=== PATIENT | female | born 1945 | race Caucasian/White ===

== ENCOUNTER → 2018-08-23 10:20 | Outpatient (CLI) | payer MEDICARE, SELFPAY ==
--- NOTE | 2018-08-23 10:24 | BI_ITS ---
MAMMOGRAPHY - BILATERAL SCREENING REASON FOR EXAM: Female, 73 years old. Routine annual screening examination. PERTINENT HISTORY: Sister with breast cancer. Aunt with breast cancer. TECHNIQUE: Digital bilateral breast roman (3D mammographic acquisition) in the CC and MLO projections. 2-D mediolateral oblique (MLO) and craniocaudad (CC) views of both breasts were obtained. CAD: Full Field Digital Mammography with Computer Added Detection was performed. COMPARISON: Comparison is made with prior study dated February 22, 2017 and March 22, 2015. FINDINGS: Breast Composition: The breasts are heterogeneously dense, which may obscure small masses. There is a 7.6 mm x 8.4 mm nodular density in the upper outer quadrant of the left breast. This has increased in size. The margins at this time are slightly irregular and spiculated. There are 2 well-defined nodular densities in the central slightly lateral midportion of the right breast. One nodule measures 1.3 cm x 0.9 cm and the second nodule measures 1.1 cm x 1 cm. Correlation with ultrasound is recommended. No other significant abnormalities are identified. BI/SCREENING MAMM (CAD), BILAT IMPRESSION: Increased size of the nodular densities in both breasts as described. Correlation with ultrasound is recommended. ASSESSMENT CATEGORY: BIRADS Category 0: Incomplete. Need additional imaging evaluation. A letter regarding these results will be sent to the patient by the facility within 30 days. Approximately 10% of breast cancers are not detected by mammography. A normal mammogram should not delay biopsy of a clinically suspicious abnormality. [id number] Electronically Signed: Fernando Ford MD at 11:32 EDT Tel [phone], Service support ,
== END ==
PROVIDERS: Family Provider Internal Medicine; PCP Internal Medicine; Visit Provider Obstetrics & Gynecology
DX: Z12.31 Encounter for screening mammogram for malignant neoplasm of breast (principal)
CPT/HCPCS: 77063; 77067

== ENCOUNTER → 2018-08-30 12:25 | Outpatient (CLI) | payer MEDICARE, SELFPAY ==
--- NOTE | 2018-08-30 12:27 | US_ITS ---
STUDY: ULTRASOUND BREAST - RIGHT REASON FOR EXAM: Female, 73 years old. Abnormal screening mammogram. TECHNIQUE: Axial and longitudinal images of the RIGHT breast were performed with a high resolution ultrasound transducer. COMPARISON: Comparison is made with prior mammogram dated August 23, 2018. FINDINGS: RIGHT Breast: There is a 1 cm x 1.5 cm x 0.9 cm well-defined hypoechoic nodule at the 7:00 position of the breast at 2 cm from the nipple. A biopsy is recommended. There is also evidence of a 5 mm x 6 mm x 6 mm anechoic nodule at the 9:00 position the breast 1 cm from the nipple. This most likely demonstrates a small cyst. IMPRESSION: Suspicious 1 cm x 1.5 cm x 0.9 cm hypoechoic nodule at the 7:00 position breast at 2 cm from nipple. A biopsy recommended. ASSESSMENT CATEGORY: BIRADS Category 4: Suspicious - Biopsy Should Be Considered. A letter regarding these results will be sent to the patient by the facility within 30 days. Electronically Signed: Fernando Ford MD at 14:09 EDT Tel [phone], Service support , STUDY: ULTRASOUND BREAST - LEFT REASON FOR EXAM: Female, 73 years old. Abnormal screening mammogram. TECHNIQUE: Axial and longitudinal images of the LEFT breast were performed with a high resolution ultrasound transducer. COMPARISON: Comparison is made with prior mammogram dated August 23, 2018. FINDINGS: LEFT Breast: There is a 4 mm x 5 mm x 6 mm irregular shaped hypoechoic nodule with posterior acoustical shadowing at the 1:00 position of the breast at 4 cm from the nipple. A biopsy is recommended. US/Breast Limited Unilateral IMPRESSION: 4 mm x 5 mm x 6 mm irregular solid nodule with posterior acoustical shadowing at the 1:00 position of the breast at 4 cm from the nipple. A biopsy recommended. ASSESSMENT CATEGORY: BIRADS Category 4: Suspicious - Biopsy Should Be Considered. A letter regarding these results will be sent to the patient by the facility within 30 days. Electronically Signed: Fernando Ford MD at 14:10 EDT Tel [phone], Service support ,
--- NOTE | 2018-08-30 12:40 | US_ITS ---
STUDY: ULTRASOUND BREAST - RIGHT REASON FOR EXAM: Female, 73 years old. Abnormal screening mammogram. TECHNIQUE: Axial and longitudinal images of the RIGHT breast were performed with a high resolution ultrasound transducer. COMPARISON: Comparison is made with prior mammogram dated August 23, 2018. FINDINGS: RIGHT Breast: There is a 1 cm x 1.5 cm x 0.9 cm well-defined hypoechoic nodule at the 7:00 position of the breast at 2 cm from the nipple. A biopsy is recommended. There is also evidence of a 5 mm x 6 mm x 6 mm anechoic nodule at the 9:00 position the breast 1 cm from the nipple. This most likely demonstrates a small cyst. IMPRESSION: Suspicious 1 cm x 1.5 cm x 0.9 cm hypoechoic nodule at the 7:00 position breast at 2 cm from nipple. A biopsy recommended. ASSESSMENT CATEGORY: BIRADS Category 4: Suspicious - Biopsy Should Be Considered. A letter regarding these results will be sent to the patient by the facility within 30 days. Electronically Signed: Fernando Ford MD at 14:09 EDT Tel [phone], Service support , STUDY: ULTRASOUND BREAST - LEFT REASON FOR EXAM: Female, 73 years old. Abnormal screening mammogram. TECHNIQUE: Axial and longitudinal images of the LEFT breast were performed with a high resolution ultrasound transducer. COMPARISON: Comparison is made with prior mammogram dated August 23, 2018. FINDINGS: LEFT Breast: There is a 4 mm x 5 mm x 6 mm irregular shaped hypoechoic nodule with posterior acoustical shadowing at the 1:00 position of the breast at 4 cm from the nipple. A biopsy is recommended. US/Breast Limited Unilateral IMPRESSION: 4 mm x 5 mm x 6 mm irregular solid nodule with posterior acoustical shadowing at the 1:00 position of the breast at 4 cm from the nipple. A biopsy recommended. ASSESSMENT CATEGORY: BIRADS Category 4: Suspicious - Biopsy Should Be Considered. A letter regarding these results will be sent to the patient by the facility within 30 days. Electronically Signed: Fernando Ford MD at 14:10 EDT Tel [phone], Service support ,
== END ==
PROVIDERS: Family Provider Internal Medicine; PCP Internal Medicine; Visit Provider Internal Medicine
DX: R92.8 Other abnormal and inconclusive findings on diagnostic imaging of breast (principal)
CPT/HCPCS: 76642

== ENCOUNTER 2018-10-10 09:30 | Day surgery (SDC) | payer MEDICARE, SELFPAY ==
[2018-10-10] VITALS (7 sets, daily range): BP systolic 111–163; BP diastolic 57–97; PULSE 72–94; RESP 16–18; TEMP 36.4; O2SAT 92–98; BMI 34.5
--- NOTE | 2018-10-10 | IMM_PTH ---
PATIENT: KAREN VILLALOBOS [place] [facility] [place][id number] AGE/SX: 73/F ROOM: RE10/10/[address]: Dr. Zee Rivas MD : 1945 BED: DIS: 10/10/2018 SPEC #: [id number] RECD: 10/13/18 12:18 STATUS: TOYIN REQ #: [id number] SALEEM: 10/10/18 00:[address]: Zee Rivas DEPT: IMMUNOHISTOCHEMISTRY RECD BY: Camilla Salazar ENTERED: 10/13/18 12:21 SP TYPE: IMMUNO OTHR DR: Dr. Renata Mei DO Tissues: A - Axillary lymph node, NOS C - Right breast, NOS Procedures: Calponin-1(initial) CALPONIN-1 (add) CK5-6 (add) CK7 (add) CK8 (add) E-CAD (add) ER (add) HER2 [place] (add) KI-67 (add) P53 (add) [place] (add) AE1 (add) P40 (add) AE1-3 (initial) PHYSICIAN & [place] [phone] SPECIMEN INFORMATION: Tissue Source: A. Left axillary sentinel lymph node, C. Right breast mass Clinical Info: Newly diagnosed left breast cancer, atypical lesion Specimen Number: [id number] A1, A2, A3, C3, C9, C11 CPT code: 62621 x2, 33507 x19, 43956 x3 METHODOLOGY: Deparaffinized sections of prefer/formalin-fixed tissue or PAP/DQ stained slides are incubated with monoclonal/polyclonal antibodies/oligonucleotide probes. Localization is made via biotin free immunoperoxidase method. Appropriate controls are performed and reacted as expected. Results on target cell population are indicated in the following table: RESULTS: ANTIBODY / CLONE RESULT Block A1 AE1-3 (AE1/AE3/PCK26) negative CK7 (OV-TL12/30) negative Block A2 AE1-3 (AE1/AE3/PCK26) negative CK7 (OV-TL12/30) negative Block A3 AE1-3 (AE1/AE3/PCK26) negative CK7 (OV-TL12/30) negative Block C3 P40 (BC28) negative Calponin-1 (QD478D) negative E-Cad (ECH-6) positive CK8 (70rjzhY56) positive CK5-6 (D5 & 1684) negative Ki-67 (30-9) positive, low P53 (DO-7) negative MORPHOMETRIC ANALYSIS ER (clone 6F11) >95%, strong KY (clone 16/1E2) >95% strong Her-2Neu (clone CB11) 0 Block C9 P40 (BC28) negative Calponin-1 (JC748I) negative E-Cad (ECH-6) positive CK8 (74oyndJ53) positive Block C11 P40 (BC28) negative Calponin-1 (BN052K) negative E-Cad (ECH-6) positive CK8 (36mrbyC57) positive The prognostic test for HER2 is performed on formalin-fixed paraffin embedded tissue. A 3+ (positive) staining pattern is defined as intense, homogeneous, complete, circumferential membranous staining in >10% of contiguous tumor cells. A similar weak (2+) staining pattern is interpreted as equivocal. STEPHEN follow-up testing is recommended for all equivocal cases. Positivity/negativity for ER/KY is reported if > or < 1% of the tumor cells are immuno- reactive, respectively. The ASCO/CAP criteria is used for scoring. Reference: Journal of Clinical Oncology, 2013; 31:0164-7674 & 2010; 16:0133-7293. Duration of fixation: __ Hrs; Sample Adequate: Yes. These assays have not been validated on decalcified tissues. Results should be interpreted with caution given the likelihood of false negativity on decalcified specimens. These tests were developed and their performance characteristics determined by [facility]. They may not have been cleared or approved by the U.S. Food and Drug Administration. The FDA has determined that such clearance or approval is not necessary. INTERPRETATION: A. Left axillary sentinel lymph nodes, biopsy: Four out of four lymph nodes negative for metastatic carcinoma. C. 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 Positive for estrogen receptors (favorable prognostic indicator). Positive for progesterone receptors (favorable prognostic indicator). Negative for overexpression of LDE5nyw. SJ:mohit 10/21/18
--- NOTE | 2018-10-10 10:00 | NM_ITS ---
PROCEDURE: NUCLEAR MEDICINE Injection Thorp Node - LEFT breast(s). REASON FOR EXAM: Female, 73 years old. Left breast cancer. TECHNIQUE: Thorp node localization using radionuclide methods of the LEFT breast(s) was performed following subcutaneous administration of 1.1 mCi of of sulfur colloid Tc-99m. FINDINGS: 1.1 mCi of technetium sulfur colloid was injected subcutaneously in 4 equal aliquots in the upper outer quadrant of the left breast. NM/Lymph Node Injection Only IMPRESSION: Subcutaneous injection of 1.1 mCi of technetium sulfur colloid in the upper outer quadrant of the left breast. Electronically Signed: Fernando Ford MD at 10:36 EST Tel [phone], Service support ,
[2018-10-10 10:06] LABS: Bedside Glucose 132 mg/dL (70-110)
--- NOTE | 2018-10-10 10:40 | BI_ITS ---
SURGICAL BREAST SPECIMEN RADIOGRAPH CLINICAL: Document presence of mass in biopsy specimen. FINDINGS: Specimen shows presence of mass. Electronically Signed: Fernando Ford MD at 16:00 EST Tel [phone], Service support , BI/Breast Biopsy Specimen
[2018-10-10] MEDS: Isosulfan Blue 1% 5 ML Vial (11:00)
--- NOTE | 2018-10-10 11:52 | BI_ITS ---
SURGICAL BREAST SPECIMEN RADIOGRAPH CLINICAL: Document presence of mass in biopsy specimen. FINDINGS: Specimen shows presence of mass. Electronically Signed: Fernando Ford MD at 15:46 EST Tel [phone], Service support , BI/Breast Biopsy Specimen
--- NOTE | 2018-10-10 12:39 | PCM.DC.BS ---
Discharge Diet: No Restrictions Discharge Activity: Return to Normal Activity, May not drive while taking narcotic pain medications. Lifting Restrictions: no lifting greater than 10 pounds until further notice Call your doctor if your incision/area has: Continuous Slow Oozing, Foul Smelling Discharge Call your doctor if you observe: Fever of 101 or Higher Additional Dressing/Incision Instructions:: Leave dressings intact. May get wet in shower. Do not soak - no tub baths/swimming Additional Instructions: for pain control - can take round the clock acetominophen alternating with ibuprofen - take 600 mg ibuprofen then in 3 hours take 650 mg acetominphen then in 3 hours take 600 mg ibuprofen and so on Take oxyir for breakthrough pain and at night Allergies/Adverse Reactions: Allergies latex Allergy (Verified 10/10/18 10:08) Rash Penicillins [PCN] Allergy (Verified 10/10/18 10:08) Rash Medications to take at Discharge Cholecalciferol (Vitamin D3) [Vitamin D3] 1,000 unit PO DAILY 10/03/18 Levothyroxine Sodium [Synthroid] 25 mcg PO DAILY 10/03/18 Liraglutide [Victoza] 0.6 mg SQ DAILY 10/03/18 Metformin HCl [Metformin HCl ER] 500 mg PO BID 10/03/18 [place]-3 Fatty Acids [Fish Oil] 500 mg PO DAILY 10/03/18 Oxycodone [Oxyir] 5 mg PO Q8H PRN PRN 5 Days #15 tab 10/10/18 The following prescriptions were given: Oxycodone [Oxyir] 5 mg PO Q8H PRN PRN 5 Days #15 tab PRN Reason: Mod-Severe Pain (-09/07) Primary Care Physician: Renata Mei DO [Primary Care Provider] - Please Follow Up With: Zee Rivas MD - call When: to be seen on October 08 at 10:00, thank you
--- NOTE | 2018-10-10 12:42 | OP.PN_ITS ---
Immediate Post-Op Note Date of Procedure: 10/10/18 Primary Surgeon/Physician: Zee Rivas store custodian: Walt Jeter Pre-Operative Diagnosis: left breast cancer, neoplastic lesion of right breast of uncertain behavior Post-Operative Diagnosis: same Surgery/Procedure Performed:: left breast lumpectomy via wire localization. left breast axillary sentinel lymph node biopsy. right breast lumpectomy via wire localization Description of Surgical Findings:: 4 out of 4 lymph nodes negative for cancer, clear margins on left breast lumpectomy, right breast tissue with dense/hard lesions - dissection was done to ensure clear margins Estimated Blood Loss: 30 ml Specimen's removed: left breast sentinel lymph kyle tissue, left breast lumpectomy tissue, right breast lumpectomy tissue Type of Anesthesia:: General ASA Class: ASA2 Mod Systematic Disease - Admit VTE Documentation VTE Present on Admission: Yes VTE Mechan Device Prophylaxis: SCD's
--- NOTE | 2018-10-10 13:32 | AXNB_PTH ---
PATIENT: KAREN VILLALOBOS [place] [facility] [id number] AGE/SX: 73/F ROOM: RE10/10/[address]: Dr. Zee Rivas MD : 1945 BED: DIS: 10/10/2018 SPEC #: [id number] RECD: 10/10/18 13:37 STATUS: TOYIN RESonja #: [id number] SALEEM: 10/10/18 13:[address]: Zee Rivas DEPT: SURGICAL PATHOLOGY RECD BY: Camilla Salazar ENTERED: 10/10/18 14:18 SP TYPE: AX NODE BX OTHR DR: Dr. Renata Mei DO Tissues: A - Axillary lymph node, NOS B - Left breast, NOS C - Left breast, NOS Procedures: Frozen Section (charge) Frozen Section Add'l ([facility]) Surgery Specimen Level V Frozen (no charge) HEADER OPERATION: Right and left breast lumpectomy via wire localization PRE-OP DIAGNOSIS: Newly diagnosed left breast cancer, atypical lesion TISSUE SUBMITTED: A. Left axillary sentinel lymph node, B. Left breast mass, C. Right breast mass FROZEN SECTION DIAGNOSIS A. Left axillary lymph nodes, biopsy: Four out of four lymph nodes, negative for metastatic carcinoma. SJ:virgie 10/10/18 MICROSCOPIC DIAGNOSIS A. Left axillary sentinel lymph node, biopsy: 4 out of 4 lymph nodes, negative for metastatic carcinoma. See comment. B. Left breast mass, lumpectomy with needle localization: Well differentiated invasive ductal carcinoma. See cancer summary below. C. 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 See comment. CHASE:tova 10/21/18 INVASIVE BREAST CANCER SUMMARY (Specimen A & B): Specimen - partial breast Procedure - excision with wire-guided localization Lymph node sampling - sentinel lymph nodes Specimen integrity - single intact specimen Specimen size - 9 x 7 x 3 cm Specimen laterality - left Tumor site - not specified Tumor size - 0.9 x 0.9 cm (measured microscopically) Tumor focality - single focus of invasive carcinoma Macroscopic and Microscopic extent of tumor: Skin - invasive carcinoma did not invade into the dermis or epidermis Nipple - not applicable Skeletal muscle - no skeletal muscle is present Ductal carcinoma in situ (DCIS) - no ductal carcinoma in situ is present Lobular carcinoma in situ (LCIS) - not identified Histologic type of invasive ca - invasive ductal carcinoma (no special type) Histologic grade: [place] grade: histologic score Glandular/tubular differentiation - score 2 Nuclear pleomorphism - score 1 Mitotic count - score 1 Overall grade - 1 (score of 4) Margins: Margins uninvolved by invasive carcinoma: The tumor is 0.2 cm away from the closest inferior margin. Treatment effect: response to presurgical (neoadjuvant) therapy - no known presurgical therapy. Lymph-Vascular invasion - not identified. Dermal lymph-vascular invasion - not identified. Lymph nodes: Number of sentinel lymph nodes examined - 4 Total number of lymph nodes examined (sentinel and nonsentinel) - 4 Number of lymph nodes with macrometastases, micrometastases, and isolated tumor cells - 0 Method of evaluation of sentinel lymph nodes - H & E, multiple levels, and IHC. Additional pathologic findings - Fibrocystic changes. - Changes consistent with previous biopsy site. Ancillary studies: (previously performed at [facility] [place], [id number]) ER - positive (95%, strong) ME - positive (95%, moderate) Hht1rwb - negative (0) Microcalcifications - present in nonneoplastic tissue, medial calcification blood vessel wall Clinical history - Please make reference to previous specimen from [facility] [id number] left breast, needle core biopsy diagnosis of invasive ductal carcinoma, nuclear grade 1. PATHOLOGIC STAGE: pT1b, pN0 (sn), MX INVASIVE BREAST CANCER SUMMARY (SPECIMEN C): Specimen - partial breast Procedure - excision with wire-guided localization Lymph node sampling - No lymph node present. Specimen integrity - single intact specimen Specimen size - 9 x 6 x 2.5 cm Specimen laterality - right Tumor site - not specified Tumor size - two foci Larger focus - 1 x 0.7 cm Smaller focus - 0.7 x 0.7 cm (both measured microscopically) Tumor focality - two foci of invasive carcinoma Macroscopic and Microscopic extent of tumor: Skin - skin is not present. Nipple - not applicable Skeletal muscle - no skeletal muscle present Ductal carcinoma in situ (DCIS) - focal ductal carcinoma in situ is present. Extensive intraductal component (EIC) - negative Estimated size (extent) of DCIS - <5% Architectural patterns - solid, cribriform pattern Nuclear grade - grade 2 Necrosis - not identified Lobular carcinoma in situ (LCIS) - not identified Histologic type of invasive carcinoma - invasive ductal carcinoma with focal cribriform and papillary features. Histologic grade: [place] grade: Glandular/tubular differentiation - score 3 Nuclear pleomorphism - score 2 Mitotic count - score 1 Overall grade - 2 (score of 6) Margins: Margins uninvolved by invasive carcinoma and ductal carcinoma in situ. Both invasive carcinoma and ductal carcinoma in situ, is 0.1 cm away from the closest margin. Treatment effect: Response to presurgical (neoadjuvant) therapy - no known presurgical therapy. Lymph-Vascular invasion - not identified Dermal lymph-vascular invasion - not applicable Lymph nodes - No lymph nodes submitted or found. Distant metastasis - not applicable Additional pathologic findings - intraductal hyperplasia with focal atypia. Complex atypical papillary lesion. Ancillary studies: ([id number]) ER - positive (<95%, strong) ME - positive (<95%, strong) [place] - negative (0) Microcalcifications - present Clinical history - Please make reference to previous specimen ([id number]) right breast, needle localization biopsy from [facility] with diagnosis of fragments of atypical papillary lesion and atypical lobular hyperplasia. PATHOLOGIC STAGE: pT1c(n) pNX MX The above summary is in compliance with College of [employer] Path[employer] (CAP) Cancer Protocols Checklist and [place] Joint Committee on Cancer (AJCC), Staging Manual, 8th Ed. COMMENT A. The lymph nodes are negative for metastatic carcinoma on multiple H & E levels and immunohistochemical stains for cytokeratins ([id number]). The smallest lymph node is completed exhausted during frozen section diagnosis (block #2). C. Immunohistochemistry ([id number]) supports the above diagnosis. This portion of the specimen is sent to [facility] for expert opinion and reviewed by Dr. Rivas and above diagnosis is rendered. Complete report is viewable in the patient's EMR. Case has been reviewed in consultation with Dr. Hussein who concurs with the above diagnosis. IDC:AM MICROSCOPIC DESCRIPTION Slides are reviewed. GROSS DESCRIPTION A. Received fresh for frozen section diagnosis labeled with the patient's name is a specimen designated left axillary sentinel lymph node. The specimen consists of two pieces of yellow-adipose tissue that measure in aggregate 5 x 3 x 0.5 cm, containing nodule consistent with lymph node. Four lymph nodes are identified measuring 0.5 to 1.5 cm in greatest dimension. The lymph nodes are submitted entirely for frozen section diagnosis as follows: 1 - frozen section one lymph node, 2 - frozen section, two lymph nodes, one lymph node inked black, 3 - frozen section, one bisected lymph node. SJ:blane 10/10/18 B. Received fresh for frozen section for intraoperative consultation labeled with the patient's name is a specimen designated left breast mass. The specimen consists of a piece of fibroadipose tissue with needle localization measuring 9 x 7 x 3 cm. A piece of the skin is noted anteriorly which measures 2.5 x 0.3 cm. The specimen is oriented as one long suture posterior border, 2 long suture lateral, skin anteriorly, one short superior. The specimen is inked as follows: anterior margin - yellow, posterior margin - black, superior margin - blue, inferior margin - green, medial margin - red and lateral margin - orange. Serial section reveals a biopsy cavity measuring 1 cm in greatest dimension with surrounding indurated tissue. This cavity is 0.2 cm away from the closest inferior margin. This information is conveyed to the surgeon intraoperatively. Sections of the rest of the specimen reveals morales-yellow adipose cut surface mixed with fibrous area. Cook Helper sections are submitted in 10 cassettes as follows: 1 - skin adjacent anterior margin and perpendicular posterior margin, 2 - perpendicular medial, lateral and superior margins, 3-6 - biopsy cavity with surrounding indurated tissue, entirely submitted and including adjacent perpendicular inferior margin, 7 - public utilities sales representative section adjacent to the biopsy cavity, 810 - public utilities sales representative sections away from the cavity. Sections will be submitted after additional fixation. C. Received fresh and post fixed in formalin labeled with the patient's name is a specimen designated right breast mass. The specimen consists of a piece of morales-yellow fibroadipose with needle localization measuring 9 x 6 x 2.5 cm. No orientation is provided. Sections reveal morales-yellow adipose cut surfaces with two biopsy cavities of the surrounding adipose tissue. No obvious mass lesion is identified. Cook [place] sections are submitted in 12 cassettes as follows: 1-5 - biopsy cavity with surrounding tissue, 6-12 - second biopsy cavity with surrounding tissue. Sections will be submitted after additional fixation. CHASE:blane 10/11/18 TC: 0 CPT: 71461 x3, 65090, 32787i9, 13843l2
[2018-10-10] MEDS: Bupiv/Epi 0.5% Mpf 30 ML Vial (15:20)
[2018-10-10 17:16] LABS: Bedside Glucose 125 mg/dL (70-110)
--- NOTE | 2018-10-11 10:37 | PCM.OPRPT ---
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 right breast lumpectomy via wire localization Description of Surgical Findings:: 4 lymph nodes found that were negative for metastatic disease in the left axilla, margins clear on left breast lumpectomy, dense breast tissue noted on right lumpectomy - dissection was done to ensure clear margins velvet weaver: Walt Jeter velvet weaver: MARGUERITE JETT medical student Type of Anesthesia:: General Anesthesiologist: Elsi Stark Specimen's removed: left breast sentinel lymph kyle tissue, left breast lumpectomy tissue, right breast lumpectomy tissue Drains: none Estimated Blood Loss (mL): 30 ml Fluids Replaced: see anesthesia note Description of Procedure: After informed consent was given, the patient was brought into the Breast Stereotactic Radiology suite. Appropriate time out protocol was followed. She was then placed in the prone position on the Carpenter stereotactic table. The patient?s left breast was placed in the opening at the head of the table. A speech and language clinician compression mammogram was then obtained in the CC view. The marker clip that was previously placed was identified. Stereo pictures of the lesion were then taken for XYZ coordinates. The Kopans needle was then positioned where it would be entering into the patient?s breast. The skin at this site was then cleansed with a surgical skin preparation. The skin and subcutaneous tissues at this site were then infiltrated with 1% xylocaine. The Kopans needle was then positioned into the patient?s breast at the proper coordinates of depth. A speech and language clinician film was obtained which revealed the wire in proper position. The wire was then secured to the patient's skin. The right breast was then addressed next. The patient?s right breast was placed in the opening at the head of the table. A speech and language clinician compression mammogram was then obtained. The marker clip that was previously placed was identified. Stereo pictures of the lesion were then taken for XYZ coordinates. The Kopans needle was then positioned where it would be entering into the patient?s right breast. The skin at this site was then cleansed with a surgical skin preparation. The skin and subcutaneous tissues at this site were then infiltrated with 1% xylocaine. The Kopans needle was then positioned into the patient?s breast at the proper coordinates of depth. A speech and language clinician film was obtained which revealed the wire in proper position. The patient was then placed in the supine position and the wires were taped into place with appropriate dressings. Bilateral mammograms were then taken in the CC and MLO view which would then be used in the OR The patient tolerated this portion of the procedure well and was brought to the AC awaiting surgery in the OR. The patient was then brought to the OR and placed in the supine position on the operating room table. Appropriate time out protocol was follwed. She was then placed under general anesthesia. 2 cc of lymphozurin blue dye diluted 50:50 was then injected into the periareolar area of the left breast and around the biopsy cavity with a 25 g needle. Gentle massage was then done for a few minutes. The patient's upper chest, both breasts, and neck area was then prepped with a sterile surgical skin preparation and appropriate sterile surgical drapes were placed. The cancer side (left) was approached first. The Neoprobe device was brought into the operative field. The 10 second reading over the tumor site was 938. The 10 second reading over the liver was 4. A skin incision was made in the inferior portion of the hair bearing area of the left axilla after injection of local anesthetic. It was carried through to the subcutaneous tissues using electrocautery. Any hemorrhage was controlled with electrocautery. A Weitlaner retractor was used for increased operative exposure. The blue lymphatic vessels were then followed by blunt dissection until blue colored lymph kyle tissue was identified. This tissue was from the surrounding tissue by blunt dissection and the vascular pedicles ligated with hemoclips. The 10 second reading of the lymph kyle tissue was 405. The lymph nodes were then forwarded to pathology for frozen section. Pathology revealed that 4 out of 4 lymph nodes were negative for cancer. The 10 second reading in the axilla was 13. The axillary cavity was carefully examined. No further suspicious lesion were noted. No further blue lymph tissue was noted. Taryn was applied in the axilla. The deep fascia was approximated with 2-0 vicryl suture. The subdermal tissue was reapproximated with 3-0 vicryl suture. The skin was reapproximated with running 4-0 monocryl in a subcuticular fashion. Dermibond was then placed to reinforce the skin closure. The left breast lumpectomy was then done. A wire had already been placed in the stereotactic biopsy room in the radiology department as described above. The skin and subcutaneous tissues at the site of the breast lesion was then infiltrated with local anesthetic. A transverse skin incision was then made with a 15 blade scalpel in the upper outer aspect of the left breast and carried down through to the subcutaneous tissues. Hemostasis was controlled with electrocautery. The wire was then palpated out and brought into the wound from outside. The breast tissue surrounding the wire was then carefully palpated out and from the surrounding tissues using electrocautery. The breast tissue, once from the breast, was then forwarded to the radiology department, where a specimen mammogram revealed that the marker clip was within the specimen. The breast tissue was then forwarded to pathology for analysis. Pathology review revealed that the closest margin was posterior with a measurement of 5 mm. The wound cavity was carefully examined. No further suspicious tissue was palpated or visualized. Hemostasis was carefully controlled with electrocautery. The subdermal tissues were then approximated with vicryl suture. The incision was then reapproximated close using running monocryl suture. Dermibond was then placed to reinforce the skin closure. The right breast was then approached next. A wire had already been placed in the stereotactic biopsy room in the radiology department as described above. The skin and subcutaneous tissues at the incision site was then infiltrated with local anesthetic. A transverse skin incision was then made with a 15 blade scalpel in the lower outer aspect of the right breast and carried down through to the subcutaneous tissues. Hemostasis was controlled with electrocautery. The wire was then palpated out. The breast tissue surrounding the wire was then carefully noted and from the surrounding tissues using electrocautery. The breast tissue was palpated and there was dense hard lesions noted. Careful attention was then done to dissect out this tissue with good margins. The breast tissue, once from the breast, was then forwarded to the radiology department, where a specimen mammogram revealed that the marker clip was within the specimen. The wound cavity was carefully examined. No further suspicious tissue was palpated or visualized. Hemostasis was carefully controlled with electrocautery. The subdermal tissues were then approximated with vicryl suture. The incision was then reapproximated close using running monocryl suture. Dermibond was then placed to reinforce the skin closure. The patient was then brought to the Recovery Room in stable condition. Grafts/Implants Used: titanium clips in left axilla - Complications none noted - Admit VTE Documentation VTE Present on Admission: Yes VTE Mechan Device Prophylaxis: SCD's
--- NOTE | 2018-10-11 10:56 | OP.PCM_ITS ---
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 right breast lumpectomy via wire localization Description of Surgical Findings:: 4 lymph nodes found that were negative for metastatic disease in the left axilla, margins clear on left breast lumpectomy, dense breast tissue noted on right lumpectomy - dissection was done to ensure clear margins echocardiograph tech: Walt Jeter echocardiograph tech: MARGUERITE JETT medical student Type of Anesthesia:: General Anesthesiologist: Elsi Stark Specimen's removed: left breast sentinel lymph kyle tissue, left breast lumpectomy tissue, right breast lumpectomy tissue Drains: none Estimated Blood Loss (mL): 30 ml Fluids Replaced: see anesthesia note Description of Procedure: After informed consent was given, the patient was brought into the Breast Stereotactic Radiology suite. Appropriate time out protocol was followed. She was then placed in the prone position on the Carpenter stereotactic table. The patient?s left breast was placed in the opening at the head of the table. A chisel grinder compression mammogram was then obtained in the CC view. The marker clip that was previously placed was identified. Stereo pictures of the lesion were then taken for XYZ coordinates. The Kopans needle was then positioned where it would be entering into the patient?s breast. The skin at this site was then cleansed with a surgical skin preparation. The skin and subcutaneous tissues at this site were then infiltrated with 1% xylocaine. The Kopans needle was then positioned into the patient?s breast at the proper coordinates of depth. A chisel grinder film was obtained which revealed the wire in proper position. The wire was then secured to the patient's skin. The right breast was then addressed next. The patient?s right breast was placed in the opening at the head of the table. A chisel grinder compression mammogram was then obtained. The marker clip that was previously placed was identified. Stereo pictures of the lesion were then taken for XYZ coordinates. The Kopans needle was then positioned where it would be entering into the patient?s right breast. The skin at this site was then cleansed with a surgical skin preparation. The skin and subcutaneous tissues at this site were then infiltrated with 1% xylocaine. The Kopans needle was then positioned into the patient?s breast at the proper coordinates of depth. A chisel grinder film was obtained which revealed the wire in proper position. The patient was then placed in the supine position and the wires were taped into place with appropriate dressings. Bilateral mammograms were then taken in the CC and MLO view which would then be used in the OR The patient tolerated this portion of the procedure well and was brought to the AC awaiting surgery in the OR. The patient was then brought to the OR and placed in the supine position on the operating room table. Appropriate time out protocol was follwed. She was then placed under general anesthesia. 2 cc of lymphozurin blue dye diluted 50:50 was then injected into the periareolar area of the left breast and around the biopsy cavity with a 25 g needle. Gentle massage was then done for a few minutes. The patient's upper chest, both breasts, and neck area was then prepped with a sterile surgical skin preparation and appropriate sterile surgical drapes were placed. The cancer side (left) was approached first. The Neoprobe device was brought into the operative field. The 10 second reading over the tumor site was 938. The 10 second reading over the liver was 4. A skin incision was made in the inferior portion of the hair bearing area of the left axilla after injection of local anesthetic. It was carried through to the subcutaneous tissues using electrocautery. Any hemorrhage was controlled with electrocautery. A Weitlaner retractor was used for increased operative exposure. The blue lymphatic vessels were then followed by blunt dissection until blue colored lymph kyle tissue was identified. This tissue was from the surrounding tissue by blunt dissection and the vascular pedicles ligated with hemoclips. The 10 second r eading of the lymph kyle tissue was 405. The lymph nodes were then forwarded to pathology for frozen section. Pathology revealed that 4 out of 4 lymph nodes were negative for cancer. The 10 second reading in the axilla was 13. The axillary cavity was carefully examined. No further suspicious lesion were noted. No further blue lymph tissue was noted. Taryn was applied in the axilla. The deep fascia was approximated with 2-0 vicryl suture. The subdermal tissue was reapproximated with 3-0 vicryl suture. The skin was reapproximated with running 4-0 monocryl in a subcuticular fashion. Dermibond was then placed to reinforce the skin closure. The left breast lumpectomy was then done. A wire had already been placed in the stereotactic biopsy room in the radiology department as described above. The skin and subcutaneous tissues at the site of the breast lesion was then infiltrated with local anesthetic. A transverse skin incision was then made with a 15 blade scalpel in the upper outer aspect of the left breast and carried down through to the subcutaneous tissues. Hemostasis was controlled with electrocautery. The wire was then palpated out and brought into the wound from outside. The breast tissue surrounding the wire was then carefully palpated out and from the surrounding tissues using electrocautery. The breast tissue, once from the breast, was then forwarded to the radiology department, where a specimen mammogram revealed that the marker clip was within the specimen. The breast tissue was then forwarded to pathology for analysis. Pathology review revealed that the closest margin was posterior with a measurement of 5 mm. The wound cavity was carefully examined. No further suspicious tissue was palpated or visualized. Hemostasis was carefully controlled with electrocautery. The subdermal tissues were then approximated with vicryl suture. The incision was then reapproximated close using running monocryl suture. Dermibond was then placed to reinforce the skin closure. The right breast was then approached next. A wire had already been placed in the stereotactic biopsy room in the radiology department as described above. The skin and subcutaneous tissues at the incision site was then infiltrated with local anesthetic. A transverse skin incision was then made with a 15 blade scalpel in the lower outer aspect of the right breast and carried down through to the subcutaneous tissues. Hemostasis was controlled with electrocautery. The wire was then palpated out. The breast tissue surrounding the wire was then carefully noted and from the surrounding tissues using electrocautery. The breast tissue was palpated and there was dense hard lesions noted. Careful attention was then done to dissect out this tissue with good margins. The breast tissue, once from the breast, was then forwarded to the radiology department, where a specimen mammogram revealed that the marker clip was within the specimen. The wound cavity was carefully examined. No further suspicious tissue was palpated or visualized. Hemostasis was carefully controlled with electrocautery. The subdermal tissues were then approximated with vicryl suture. The incision was then reapproximated close using running monocryl suture. Dermibond was then placed to reinforce the skin closure. The patient was then brought to the Recovery Room in stable condition. Grafts/Implants Used: titanium clips in left axilla - Complications none noted - Admit VTE Documentation VTE Present on Admission: Yes VTE Mechan Device Prophylaxis: SCD's
== END 2018-10-10 18:43 | disposition home or self-care (01) ==
LOC: SDC 09:38 → AC 09:39
PROVIDERS: Family Provider Internal Medicine; PCP Internal Medicine; Referring Provider Surgery; Visit Provider Surgery
PROC: (CPT 19301; principal; 2018-10-10 11:45)
DX: C50.412 Malignant neoplasm of upper-outer quadrant of left female breast (principal); C77.3 Secondary and unspecified malignant neoplasm of axilla and upper limb lymph nodes; E11.9 Type 2 diabetes mellitus without complications; E78.00 Pure hypercholesterolemia, unspecified; E07.9 Disorder of thyroid, unspecified; K21.9 Gastro-esophageal reflux disease without esophagitis; K64.4 Residual hemorrhoidal skin tags; Z78.0 Asymptomatic menopausal state; Z79.84 Long term (current) use of oral hypoglycemic drugs; Z79.899 Other long term (current) drug therapy
CPT/HCPCS: 00404; 19301; 19302; 38900; 19281; 38792; 76098; 82962; 88305; 88307; 88331; 88332; 88341; 88342; A9541; J7050; J7120; J2405; J3490; Q9968

== ENCOUNTER 2018-12-05 09:25 | Day surgery (SDC) | payer MEDICARE, SELFPAY ==
[2018-10-10 10:00] VITALS: BMI 34.5
--- NOTE | 2018-12-05 | AXNB_PTH ---
PATIENT: KAREN VILLALOBOS [place] [facility] [id number] AGE/SX: 73/F ROOM: RE12/05/[address]: Dr. Zee Rivas MD : 1945 BED: DIS: 12/05/2018 SPEC #: [id number] RECD: 12/05/18 12:59 STATUS: TOYIN RESonja #: [id number] SALEEM: 12/05/18 00:[address]: Zee Rivas DEPT: SURGICAL PATHOLOGY RECD BY: Carmella Ashton ENTERED: 12/05/18 13:23 SP TYPE: AX NODE BX OTHR DR: Dr. Renata Mei DO Tissues: A - Axillary lymph node, NOS B - Axillary lymph node, NOS Procedures: Frozen Section (charge) Frozen Section Add'l ([facility]) Surgery Specimen Level IV Surgery Specimen Level V Frozen (no charge) HEADER OPERATION: Biopsy, axillary node, Neoprobe PRE-OP DIAGNOSIS: Right breast cancer TISSUE SUBMITTED: A - Right axillary lymph nodes sent for frozen at 1253, B - Lymph tissue sent fresh for pathology FROZEN SECTION DIAGNOSIS A. Right axillary lymph nodes, lymphadenectomy: Five fatty lymph nodes with no evidence of carcinoma. AM:mohit 12/05/18 MICROSCOPIC DIAGNOSIS A. Right axillary sentinel lymph nodes, biopsy: Five out of five lymph nodes negative for carcinoma. AM:mohit 12/07/18 B. Right axillary lymph node, biopsy: Two fragments of lymphoid tissue with fatty replacement. No evidence of malignancy. AM:mohit 12/08/18 COMMENT Immunohistochemistry ([id number]) supports the above diagnosis. The lymph nodes show fatty replacement. Clinical correlation is suggested. Please make reference to case [id number] in which right partial breast contained two foci of invasive carcinoma measuring 1 and 0.7 cm in greatest dimensions respectively. Case has been reviewed in consultation with Dr. Chirinos who concurs with the above diagnosis. IDC:[email or web address] MICROSCOPIC DESCRIPTION Slides are reviewed. GROSS DESCRIPTION A - Received fresh for frozen section consultation labeled with the patient's name is a specimen designated right axillary lymph nodes. The specimen consists of an irregular fragment of morales-yellow fibrofatty tissue measuring 4 x 3 x 2 cm. Dissection reveals five fatty nodules ranging in size from 1 to 3 cm. The nodules are submitted in their entirety for frozen section consultation in five blocks. / AM:mohit 12/05/18 B - Received fresh labeled with the patient's name is a specimen designated lymph tissue right. The specimen consists of two pieces of yellow adipose tissue that in aggregate measure 1 x 1 x 0.5 cm. One of the pieces is inked and bisected. The entire specimen is submitted in one cassette. / SJ:mohit 12/07/18 TC:5 CPT: 52620, 80701, 67517 x4, 78044
--- NOTE | 2018-12-05 | IMM_PTH ---
PATIENT: KAREN VILLALOBOS LOC: [facility] U#:[id number] AGE/SX: 73/F ROOM: RE12/05/[address]: Dr. Zee Rivas MD : 1945 BED: DIS: 12/05/2018 SPEC #: [id number] RECD: 12/07/18 10:03 STATUS: TOYIN RESonja #: [id number] SALEEM: 12/05/18 00:[address]: Zee Rivas DEPT: IMMUNOHISTOCHEMISTRY RECD BY: Carmella Ashton ENTERED: 12/07/18 10:05 SP TYPE: IMMUNO OTHR DR: Dr. Renata Mei DO Tissues: A - Axillary lymph node, NOS B - Axillary lymph node, NOS Procedures: Pankeratin (initial) Pankeratin (add) CK7 (initial) PHYSICIAN & INSTITUTION [place] [id number] SPECIMEN INFORMATION: Tissue Source: A - Right axillary lymph nodes, lymphadenectomy, B - Lymph node tissue Clinical Info: Right breast cancer Specimen Number: [id number] A1-5, B CPT code: 31745 x2, 91863 x5 METHODOLOGY: Deparaffinized sections of prefer/formalin-fixed tissue or PAP/DQ stained slides are incubated with monoclonal/polyclonal antibodies/oligonucleotide probes. Localization is made via biotin free immunoperoxidase method. Appropriate controls are performed and reacted as expected. Results on target cell population are indicated in the following table: RESULTS: ANTIBODY / CLONE RESULT Block A1 AE1-3 (AE1/AE3/PCK26) negative Block A2 AE1-3 (AE1/AE3/PCK26) negative Block A3 AE1-3 (AE1/AE3/PCK26) negative Block A4 AE1-3 (AE1/AE3/PCK26) negative Block A5 AE1-3 (AE1/AE3/PCK26) negative Block B CK7 (OV-TL12/30) negative AE1-3 (AE1/AE3/PCK26) negative These tests were developed and their performance characteristics determined by [facility]. They may not have been cleared or approved by the U.S. Food and Drug Administration. The FDA has determined that such clearance or approval is not necessary. INTERPRETATION: A. Right axillary lymph nodes, lymphadenectomy: Five out of five lymph nodes negative for carcinoma. AM:mohit 12/07/18 B. Lymph node tissue: Two fragments of fatty lymph nodes negative for carcinoma. AM:mohit 12/08/18
--- NOTE | 2018-12-05 | IMM_PTH ---
PATIENT: KAREN VILLALOBOS [place] [facility] [place][id number] AGE/SX: 73/F ROOM: RE12/05/[address]: Dr. Zee Rivas MD : 1945 BED: DIS: 12/05/2018 SPEC #: [id number] RECD: 12/07/18 10:03 STATUS: TOYIN REQ #: [id number] SALEEM: 12/05/18 00:[address]: Zee Rivas DEPT: IMMUNOHISTOCHEMISTRY RECD BY: Carmella Ashton ENTERED: 12/07/18 10:05 SP TYPE: IMMUNO OTHR DR: Dr. Renata Mei DO Tissues: Axillary lymph node, NOS Procedures: Pankeratin (initial) Pankeratin (add) PHYSICIAN & INSTITUTION [place] [id number] SPECIMEN INFORMATION: Tissue Source: Right axillary lymph nodes, lymphadenectomy Clinical Info: Right breast cancer Specimen Number: [id number] #1-5 CPT code: 92024, 33160 x4 METHODOLOGY: Deparaffinized sections of prefer/formalin-fixed tissue or PAP/DQ stained slides are incubated with monoclonal/polyclonal antibodies/oligonucleotide probes. Localization is made via biotin free immunoperoxidase method. Appropriate controls are performed and reacted as expected. Results on target cell population are indicated in the following table: RESULTS: ANTIBODY / CLONE RESULT Block 1 AE1-3 (AE1/AE3/PCK26) positive Block 2 AE1-3 (AE1/AE3/PCK26) positive Block 3 AE1-3 (AE1/AE3/PCK26) positive Block 4 AE1-3 (AE1/AE3/PCK26) positive Block 5 AE1-3 (AE1/AE3/PCK26) positive These tests were developed and their performance characteristics determined by [facility]. They may not have been cleared or approved by the U.S. Food and Drug Administration. The FDA has determined that such clearance or approval is not necessary. INTERPRETATION: Right axillary lymph nodes, lymphadenectomy: Five out of five lymph nodes negative for carcinoma. AM:mohit 12/07/18
--- NOTE | 2018-12-05 | AXNB_PTH ---
PATIENT: KAREN VILLALOBOS LOC: [facility] [place] U#:[id number] AGE/SX: 73/F ROOM: RE12/05/[address]: Dr. Zee Rivas MD : 1945 BED: DIS: 12/05/2018 SPEC #: [id number] RECD: 12/05/18 12:59 STATUS: TOYIN REQ #: [id number] SALEEM: 12/05/18 00:[address]: Zee Rivas DEPT: SURGICAL PATHOLOGY RECD BY: Carmella Ashton ENTERED: 12/05/18 13:23 SP TYPE: AX NODE BX OTHR DR: Dr. Renata Mei DO Tissues: A - Axillary lymph node, NOS B - Axillary lymph node, NOS Procedures: Frozen Section (charge) Frozen Section Add'l ([facility]) Surgery Specimen Level V Frozen (no charge) HEADER OPERATION: Biopsy, axillary node, Neoprobe PRE-OP DIAGNOSIS: Right breast cancer TISSUE SUBMITTED: Right axillary lymph nodes sent for frozen at 1253 FROZEN SECTION DIAGNOSIS Right axillary lymph nodes, lymphadenectomy: Five fatty lymph nodes with no evidence of carcinoma. AM:mohit 12/05/18 MICROSCOPIC DIAGNOSIS Right axillary sentinel lymph nodes, biopsy: Five out of five lymph nodes negative for carcinoma. AM:mohit 12/07/18 COMMENT Immunohistochemistry ([id number]) supports the above diagnosis. The lymph nodes show fatty replacement. Please make reference to case [id number] in which right partial breast contained two foci of invasive carcinoma measuring 1 and 0.7 cm in greatest dimensions respectively. Clinical correlation is suggested. Case has been reviewed in consultation with Dr. Chirinos who concurs with the above diagnosis. IDC:SJ MICROSCOPIC DESCRIPTION Slides are reviewed. GROSS DESCRIPTION Received fresh for frozen section consultation labeled with the patient's name is a specimen designated right axillary lymph nodes. The specimen consists of an irregular fragment of morales-yellow fibrofatty tissue measuring 4 x 3 x 2 cm. Dissection reveals five fatty nodules ranging in size from 1 to 3 cm. The nodules are submitted in their entirety for frozen section consultation in five blocks. / AM:mohit 12/05/18 TC:5 CPT: 12338, 42171, 94076 x4
--- NOTE | 2018-12-05 09:36 | NM_ITS ---
PROCEDURE: NUCLEAR MEDICINE Injection Blanchard Node - RIGHT breast(s). REASON FOR EXAM: Female, 73 years old. Right breast cancer. TECHNIQUE: Blanchard node localization using radionuclide methods of the RIGHT breast(s) was performed following subcutaneous administration of 1.1 mCi of of sulfur colloid Tc-99m. FINDINGS: 1.1 mCi of technetium labeled sulfur colloid was injected in 4 equal aliquots in the midportion of the right breast. NM/Lymph Node Injection Only IMPRESSION: Subcutaneous injection of 1.1 mCi of technetium labeled sulfur colloid for sentinel node imaging. Electronically Signed: Fernando Ford MD at 12:54 EST Tel [phone], Service support ,
[2018-12-05 09:56] VITALS: BP 127/53; PULSE 76; RESP 16; TEMP 36.9; O2SAT 96; BMI 34.5
[2018-12-05 10:11] LABS: Bedside Glucose 129 mg/dL (70-110)
--- NOTE | 2018-12-05 11:58 | PCM.IMDPSTOP ---
Immediate Post-Op Note Date of Procedure: 12/05/18 Primary Surgeon/Physician: Zee Rivas MD painter apprentice: NOT,DEFINED Pre-Operative Diagnosis: right breast cancer Post-Operative Diagnosis: same Surgery/Procedure Performed:: right axillary sentinel lymph node biopsy via blue and radioactive dye Description of Surgical Findings:: sentinel lymph node biopsy - 5 out of 5 lymph nodes negative for metastatic disease Estimated Blood Loss: < 5 ml Specimen's removed: right axillary sentinel lymph kyle tissue Type of Anesthesia:: General ASA Class: ASA3 Severe Disease - Admit VTE Documentation VTE Present on Admission: Yes VTE Mechan Device Prophylaxis: SCD's
--- NOTE | 2018-12-05 12:02 | OP.PN_ITS ---
Immediate Post-Op Note Date of Procedure: 12/05/18 Primary Surgeon/Physician: Zee Rivas MD heel lift gouger: NOT,DEFINED Pre-Operative Diagnosis: right breast cancer Post-Operative Diagnosis: same Surgery/Procedure Performed:: right axillary sentinel lymph node biopsy via blue and radioactive dye Description of Surgical Findings:: sentinel lymph node biopsy - 5 out of 5 lymph nodes negative for metastatic disease Estimated Blood Loss: < 5 ml Specimen's removed: right axillary sentinel lymph kyle tissue Type of Anesthesia:: General ASA Class: ASA3 Severe Disease - Admit VTE Documentation VTE Present on Admission: Yes VTE Mechan Device Prophylaxis: SCD's
--- NOTE | 2018-12-05 12:07 | DCINST_ITS ---
Discharge Diet: No Restrictions Discharge Activity: Return to Normal Activity, May not drive while taking narcotic pain medications. Lifting Restrictions: no lifting with right arm greater than 10 pounds until further notice Call your doctor if your incision/area has: Continuous Slow Oozing, Foul Smelling Discharge Call your doctor if you observe: Fever of 101 or Higher Additional Dressing/Incision Instructions:: Leave dressing in place. May get wet in shower. Do not soak - no tub baths/swimming Allergies/Adverse Reactions: Allergies latex Allergy (Verified 11/30/18 15:39) Rash Penicillins [PCN] Allergy (Verified 11/30/18 15:39) Rash Medications to take at Discharge Cholecalciferol (Vitamin D3) [Vitamin D3] 1,000 unit PO DAILY 10/03/18 Levothyroxine Sodium [Synthroid] 25 mcg PO DAILY 10/03/18 Liraglutide [Victoza] 0.6 mg SQ DAILY 10/03/18 Metformin HCl [Metformin HCl ER] 500 mg PO BID 10/03/18 [place]-3 Fatty Acids [Fish Oil] 500 mg PO DAILY 10/03/18 Hydrocodone Bitart/Apap 5-325 [[place] 5MG-325MG] 1 tab PO Q8H PRN PRN 3 Days #10 tab 12/05/18 The following prescriptions were given: Hydrocodone Bitart/Apap 5-325 [[place] 5MG-325MG] 1 tab PO Q8H PRN PRN 3 Days #10 tab PRN Reason: Pain Primary Care Physician: Renata Mei DO [Primary Care Provider] - Please Follow Up With: Zee Rivas MD - call When: to be seen in 7-10 days, please call for date and time, thank you
[2018-12-05] MEDS: Isosulfan Blue 1% 5 ML Vial (12:20)
[2018-12-05] MEDS: Bupivacaine 0.25% 30 ML Vial (12:40)
--- NOTE | 2018-12-05 13:27 | OP.PCM_ITS ---
Report of Operation Date of Procedure: 12/05/18 Pre-Operative Diagnosis: right breast cancer Post-Operative Diagnosis: same Surgery/Procedure Performed:: right axillary sentinel lymph node biopsy via blue and radioactive dye Description of Surgical Findings:: sentinel lymph node biopsy - 5 out of 5 lymph nodes negative for metastatic disease tow feeder: NOT,DEFINED Type of Anesthesia:: General Anesthesiologist: Mandy Tillman Specimen's removed: right axillary sentinel lymph kyle tissue Drains: none Estimated Blood Loss (mL): < 5 ml Fluids Replaced: 1000 ml RL Description of Procedure: After informed consent was given the patient was brought to the OR and placed in the supine position on the operating room table. Appropriate time out protocol was followed. She was then placed under general anesthesia. 2 cc of lymphozurin blue dye was then injected into the periareolar area and around the biopsy cavity with a 25 g needle. Gentle massage was then done for a few minutes. The patient's right chest and neck area was then prepped with a sterile surgical skin preparation and appropriate sterile surgical drapes were placed. A skin incision was made in the inferior portion of the hair bearing area of the right axilla. It was carried through to the subcutaneous tissues using electrocautery. Any hemorrhage was controlled with electrocautery. The Neoprobe device was then brought onto the surgical field via sterile technique. A 10 second count over tumor - thousands. 10 second count over the abdomen - 0. A Weitlaner retractor was used for increased operative exposure for the right axilla. The blue lymphatic vessels were then followed by blunt dissection until blue colored lymph kyle tissue was identified. These were from the surrounding tissue by blunt dissection and the vascular pedicles ligated with ligaclips. The lymph kyle tissue was then forwarded to pathology for frozen section. 10 second count over the lymph kyle tissue - 15. Pathology revealed that 5 lymph nodes were negative for metastatic disease. 10 second count in the axilla, after lymph kyle tissue was removed - 1. Hemostasis was carefully checked with electrocautery. Taryn was applied into the cavity. The deep fascia was reapproximated with 2-0 vicryl suture in an interrupted simple fashion. The skin edges were reapproximated with 3-0 vicryl suture in a horizontal mattress fashion and then further closed with running 4-0 monocryl in a subcuticular fashion. Cavilon and steristrips were then placed to reinforce the skin closure and proper sterile dressings were applied. Patient tolerated procedure well and was brought to Recovery Room in stable condition - Complications none noted - Admit VTE Documentation VTE Present on Admission: Yes VTE Mechan Device Prophylaxis: SCD's
[2018-12-05 13:29] VITALS: BP 127/53; BP 137/82; PULSE 96; RESP 16; TEMP 36.7; O2SAT 92
[2018-12-05 13:45] VITALS: BP 127/53; BP 130/57; PULSE 85; RESP 16; O2SAT 92
[2018-12-05 13:46] LABS: Bedside Glucose 117 mg/dL (70-110)
[2018-12-05 14:00] VITALS: BP 123/62; BP 127/53; PULSE 75; RESP 16; TEMP 36.4; O2SAT 93
[2018-12-05] MEDS: HYDROcodone Bitartrate/Apap 5/325 Tablet PO (14:21)
[2018-12-05 14:29] VITALS: BP 127/53
[2018-12-05 15:06] VITALS: BP 127/53; BP 135/91; PULSE 73; RESP 16; TEMP 36.5; O2SAT 95
== END 2018-12-05 15:09 | disposition home or self-care (01) ==
LOC: SDC 09:26 → AC 09:28
PROVIDERS: Family Provider Internal Medicine; PCP Internal Medicine; Referring Provider Surgery; Visit Provider Surgery
PROC: (CPT 19301; principal; 2018-12-05 11:45)
DX: C50.411 Malignant neoplasm of upper-outer quadrant of right female breast (principal); Z17.0 Estrogen receptor positive status [ER+]; C50.912 Malignant neoplasm of unspecified site of left female breast; E11.9 Type 2 diabetes mellitus without complications; E06.9 Thyroiditis, unspecified; K64.4 Residual hemorrhoidal skin tags; K21.9 Gastro-esophageal reflux disease without esophagitis; F43.21 Adjustment disorder with depressed mood; Z78.0 Asymptomatic menopausal state; Z79.84 Long term (current) use of oral hypoglycemic drugs; Z79.899 Other long term (current) drug therapy
CPT/HCPCS: 01610; 38525; 38900; 38792; 82962; 88305; 88307; 88331; 88332; 88341; 88342; A9541; J7050; J7120; J2405; Q9968

== ENCOUNTER → 2019-03-31 10:13 | Outpatient (CLI) | payer MEDICARE, SELFPAY ==
--- NOTE | 2019-03-07 16:01 | EKG12_ITS ---
Test Reason : PRE OP Blood Pressure : / mmHG Vent. Rate : 083 BPM Atrial Rate : 083 BPM P-R Int : 150 ms QRS Dur : 080 ms QT Int : 358 ms P-R-T Axes : 050 058 073 degrees QTc Int : 420 ms Normal sinus rhythm Nonspecific ST abnormality Abnormal ECG Confirmed by TENISHA CLEMONS, NAREN ([id number]), multimedia editor QUEENIE GUERRA ([id number]) on 03/08/2019 1:22:42 PM Referred By: Renetta Najera Confirmed By:NAREN STEVEN MD
[2019-03-07 17:26] LABS: Hematocrit 38.4 % (37-47); Hemoglobin 12.8 g/dl (12.0-15.0); Mean Corp Hgb Conc 33.3 g/gl (32-36); Mean Corpuscular Hgb 29.2 pg (27.0-32.0); Mean Corpuscular Volume 87.7 fL (81-99); Mean Platelet Vol. 11.3 fl (6.2-12.0); Platelet Count 111 K/mm3 (150-450); RBC Distribution Width CV 13.5 % (11.6-14.6); RBC Distribution Width SD 43.3 fl (35.1-43.9); Red Blood Count 4.38 M/mm3 (4.2-5.4); White Blood Count 5.5 K/mm3 (4.4-11.0)
[2019-03-07 17:31] LABS: Scan Indicated on CBC? Y/N NO
[2019-03-07 17:40] LABS: Prothrombin Time (Protime)PT. 13.4 SECONDS (11.7-14.9)
[2019-03-07 17:41] LABS: Partial Thromboplast Time 29.2 Seconds (24.1-36.2)
[2019-03-07 18:22] LABS: Thyroid Stim Hormone (TSH) 3.09 uIU/mL (0.358-3.74)
[2019-03-07 18:27] LABS: Hemoglobin A1c 8.1 % (4.2-6.3)
== END ==
PROVIDERS: Family Provider Internal Medicine; PCP Internal Medicine; Referring Provider Obstetrics & Gynecology; Visit Provider Obstetrics & Gynecology
DX: Z01.812 Encounter for preprocedural laboratory examination (principal); Z53.9 Procedure and treatment not carried out, unspecified reason; R94.31 Abnormal electrocardiogram [ECG] [EKG]
CPT/HCPCS: 36415; 83036; 84443; 85027; 85610; 85730; 86850; 86900; 93005

== ENCOUNTER 2019-04-18 10:47 | Day surgery (SDC) | payer MEDICARE, SELFPAY ==
--- NOTE | 2019-04-10 19:54 | PCM.HP.STD ---
Problem List (1) Endometrial thickening on ultrasound Status: Acute History of Present Illness Date of Admission: 04/18/19 Chief Complaint: thickened endometrium on ultrasound The patient is a 73 year old F with breast cancer diagnosis and Victoza use. Prior ultrasound of pelvis with fluid noted in endometrium. Repeat ultrasound with continued fluid in the endometrium and thicker endometrium. Presents for D and C removal and analysis of endometrium. Previously scheduled for D and C which was cancelled due to elevated HgA1C above 8 for her known diabetes diagnosis. Diabetes now stable. Past Medical History Allergies latex Allergy (Verified 03/07/19 14:57) Rash Penicillins [PCN] Allergy (Verified 03/07/19 14:57) Rash Home Medications: Ambulatory Orders Medication Instructions Recorded Cholecalciferol (Vitamin D3) 1,000 unit PO DAILY 10/03/18 [Vitamin D3] Levothyroxine Sodium [Synthroid] 25 mcg PO DAILY 10/03/18 Liraglutide [Victoza] 0.6 mg SQ DAILY 10/03/18 Metformin HCl [Metformin HCl ER] 500 mg PO BID 10/03/18 [place]-3 Fatty Acids [Fish Oil] 500 mg PO DAILY 10/03/18 Anastrozole [Arimidex] 1 mg PO DAILY 03/07/19 Smoking Status: Never smoker Review of Systems Constitutional: Denies: Chills, Fever, Weight Change HEENT: Denies: Difficulty Hearing, Difficulty Swallowing, Nasal bleeding, Nasal Congestion, Sore Throat Cardiovascular: Denies: Chest Pain, Palpitations Respiratory: Denies: Shortness of Breath, Wheezing Gastrointestinal: Denies: Constipation, Diarrhea, Nausea, Vomiting Genitourinary: Denies: Dysuria, Frequency, Hematuria, Incontinence, Urgency Musculoskeletal: Denies: Joint Pain, Muscle pain Skin: Denies: Lesions, Skin Changes Neurological: Denies: Focal weakness, Numbness Psychiatric: Denies: Anxiety, Depression Endocrine: Denies: Heat/ Cold Intolerance Hematologic/ Lymphatic: Denies: Easy Bleeding VTE Information - Inpt Only VTE Present on Admission: No VTE Mechan Device Prophylaxis: None VTE Pharm Prophylaxis ordered?: No Reason prophylaxis not ordered:: Procedure Not Indicated Subjective: Healthy appearing female of stated age. - Physical Exam General: No apparent distress, Well developed, Well nourished HEENT: PERRLA, EOMI, Normocephalic Oral: Moist Mucosa Neck: Supple Lungs: Clear to auscultation, Normal air movement Cardiovascular: Regular rate, Regular Rhythm Abdomen: Soft, Non Tender, Non-Distended Extremities: No edema Skin: No rashes Neurological: Cranial nerves II-XII grossly intact Body Mass Index (BMI) 34.5 Finger Stick Blood Glucose 117 Assessment/Plan All Active Problems Endometrial thickening on ultrasound (Acute) 1. Endometrial thickening on ultrasound with known breast cancer D and C, hysteroscopy The preop preparation, the intraop procedures and the postop recovery reviewed. The risks of bleeding, infection and other organ damage including bladder, bowel and uterine perforation reviewed, accepted and consented. 2. Diabetes better control per pcp
[2019-04-18] VITALS (8 sets, daily range): BP systolic 82–124; BP diastolic 43–55; PULSE 67–74; RESP 14–16; TEMP 35.6–36.6; O2SAT 92–97; BMI 33.3
[2019-04-18 11:56] LABS: Bedside Glucose 93 mg/dL (70-110)
--- NOTE | 2019-04-18 12:20 | EMB_PTH ---
PATIENT: KAREN VILLALOBOS LOC: [facility] [place] U#:[id number] AGE/SX: 73/F ROOM: RE04/18/[address]: Dr. Renetta Najera MD : 1945 BED: DIS: 04/18/2019 SPEC #: [id number] RECD: 04/18/19 15:05 STATUS: TOYIN RESonja #: [id number] SALEEM: 04/18/19 12:[address]: Renetta Najera DEPT: SURGICAL PATHOLOGY RECD BY: Giovanni Magana ENTERED: 04/19/19 09:25 SP TYPE: ENDOM BX/C ELVIS DR: Dr. Renata Mei DO Tissues: Endometrium, NOS Procedures: Surgery Specimen Level IV HEADER OPERATION: Hysteroscopy, dilation and curettage PRE-OP DIAGNOSIS: Endometrial thickening on ultrasound TISSUE SUBMITTED: Endometrial curettings MICROSCOPIC DIAGNOSIS Endometrium, curettings: Inactive endometrium with focal tubal metaplasia. Rare strips of benign superficial squamous mucosa. AM:mohit 04/20/19 COMMENT Case has been reviewed in consultation with Dr. Fortune who concurs with the above diagnosis. IDC:CE MICROSCOPIC DESCRIPTION Slides are reviewed. GROSS DESCRIPTION Received in fixative is one container labeled with the patient's name and designated endometrial curettings. The specimen consists of multiple minute fragments of morales mucoid tissue that in aggregate measure 0.6 x 0.5 x <0.1 cm. The specimen is totally submitted in one cassette. / AM:mohit 04/19/19 TC: CPT: 43385
--- NOTE | 2019-04-18 13:18 | OP.PCM_ITS ---
Problem List (1) Endometrial thickening on ultrasound Status: Acute Report of Operation Date of Procedure: 04/18/19 Pre-Operative Diagnosis: Thickened endometrium Post-Operative Diagnosis: Same plus cervical stenosis Surgery/Procedure Performed:: D&C, hysteroscopy Description of Surgical Findings:: He was noted to be approximately 8 cm in anteflexed position the cervical eyes no increased with mobile as well as an atrial cavity was noted to have much tissue the opening of the cervical Type of Anesthesia:: Local, MAC Anesthesiologist: Kelvin Lin Special Medications: Clindamycin and Gentamycin IV Specimen's removed: Endometrium Drains: None Estimated Blood Loss (mL): Minimal Fluids Replaced: Lactated Ringer Description of Procedure: Patient was brought to the operating room placed on the surgical bed. She underwent a MAC anesthetic after monitors have been placed. Patient entry. After adequate anesthesia patient was was placed in dorsolithotomy position via the Pablo stirrups she was prepped and draped in normal sterile fashion. A second timeout occurred the bladder was drained by myself with a straight catheter with 30 cc of clear urine being noted. The vagina anterior lip cervix was grasped and elevated cervical eyes was not able to complete the uterine sound small dilators were used to slowly and successfully dilate that cervical stenosis was encountered. The cervical cervix was also in with 10 cc of 1% lidocaine through at the 4 quadrants of the cervix. Once dilation of the cervical eyes with the hysteroscope 3 mm visit to the endometrial cavity inves tigation of the endometrial cavity occurred with a scant amount of tissue being noted because of the endometrial cavity and collection of the small tissue was noted the patient did not reveal this point time then all instruments were removed from the vagina sponge and instrument counts were correct x2 hemostasis was noted to be noted that a second timeout occurred prior to the onset of the case. Patient was awakened in stable condition to be taken to recovery room for discharge home later today. Grafts/Implants Used: None - Admit VTE Documentation VTE Mechan Device Prophylaxis: SCD's Reason prophylaxis not ordered:: Procedure Not Indicated
--- NOTE | 2019-04-18 13:18 | PCM.DC.D&C ---
Discharge Diet: No Restrictions - Increase water intake x 3 days Discharge Activity: Return to Normal Activity, May Shower, May Take a Tub Bath - in 2 weeks., - - For the week after surgery, please ambulate frequently with periods of rest in between May shower in (days): 0 - TODAY May resume sexual activity in: 1 week Weight Bearing Status: Full weight bearing Lifting Restrictions: none Call your doctor if your incision/area has: Sudden Increased Bleeding Call your doctor if you observe: Fever of 101 or Higher, Inability to urinate, Inability to have a bowel movement, Using more than one pad per hour Cleanse incision/area with: Soap & Water Allergies/Adverse Reactions: Allergies latex Allergy (Verified 04/18/19 11:26) Rash Penicillins [PCN] Allergy (Verified 04/18/19 11:26) Rash Medications to take at Discharge Cholecalciferol (Vitamin D3) [Vitamin D3] 1,000 unit PO DAILY 10/03/18 Levothyroxine Sodium [Synthroid] 25 mcg PO DAILY 10/03/18 Liraglutide [Victoza] 0.6 mg SQ DAILY 10/03/18 Metformin HCl [Metformin HCl ER] 500 mg PO BID 10/03/18 [place]-3 Fatty Acids [Fish Oil] 500 mg PO DAILY 10/03/18 Anastrozole [Arimidex] 1 mg PO DAILY 03/07/19 Primary Care Physician: Renata Mei DO [Primary Care Provider] - Test Results: Test results from this visit will be discussed in further detail at your follow-up appointment, if applicable. Please Follow Up With: Renetta Najera MD When: 1-2 weeks after surgery
== END 2019-04-18 14:23 | disposition home or self-care (01) ==
LOC: SDC 10:49 → AC 10:57
PROVIDERS: Family Provider Internal Medicine; PCP Internal Medicine; Referring Provider Obstetrics & Gynecology; Visit Provider Obstetrics & Gynecology
PROC: 0UDB8ZZ Extraction of Endometrium, Via Natural or Artificial Opening Endoscopic (ICD-10-PCS; CPT 58558; principal; 2019-04-18 12:10)
DX: N85.8 Other specified noninflammatory disorders of uterus (principal); C50.919 Malignant neoplasm of unspecified site of unspecified female breast; E11.9 Type 2 diabetes mellitus without complications; E07.9 Disorder of thyroid, unspecified; K21.9 Gastro-esophageal reflux disease without esophagitis; Z79.84 Long term (current) use of oral hypoglycemic drugs; Z79.899 Other long term (current) drug therapy; Z88.0 Allergy status to penicillin; Z78.0 Asymptomatic menopausal state
CPT/HCPCS: 00952; 58558; 82962; 88305; J7120; J2405

== ENCOUNTER 2019-05-04 23:53 | Emergency (ER) | payer MEDICARE, SELFPAY ==
[2019-04-18 11:28] VITALS: BMI 33.3
[2019-05-04 23:54] VITALS: BP 108/70; PULSE 69; RESP 16; TEMP 36.1; O2SAT 96; BMI 31.2
--- NOTE | 2019-05-05 00:22 | EKG12_ITS ---
Test Reason : ABD PAIN Blood Pressure : / mmHG Vent. Rate : 077 BPM Atrial Rate : 077 BPM P-R Int : 152 ms QRS Dur : 084 ms QT Int : 378 ms P-R-T Axes : 030 034 080 degrees QTc Int : 427 ms Normal sinus rhythm Minimal voltage criteria for LVH, may be normal variant Inferior infarct , age undetermined Abnormal ECG Confirmed by SHARATH CLEMONS, YORDY ([id number]), editor publications QUEENIE GUERRA ([id number]) on 05/09/2019 8:45:38 AM Referred By: EFRAIN Confirmed By:YORDY EARLY MD
--- NOTE | 2019-05-05 00:24 | ED.DCSUM_ITS ---
History of Present Illness Chief Complaint: Abd Pain Narrative: Patient is a 73-year-old female who presents with abdominal pain. This began about 7 PM, about 5 and half hours ago. She had eaten a turkey sandwich about an hour to an hour and a half before this. Food like that is never bothered her before. She describes her pain as severe burning epigastric pain. She denies any associated chest pain or shortness of breath. She had mild nausea but believes this may have been related to anxiety. She did take Mylanta and Zantac about an hour ago and her symptoms are now completely resolved. She did speak to her primary care physician prior to this who advised that if her symptoms worsen to seek medical care. Past Medical History - Allergies and Home Meds Allergies/Adverse Reactions: Allergies latex Allergy (Verified 05/04/19 23:57) Rash Penicillins [PCN] Allergy (Verified 05/04/19 23:57) Rash Primary Care Physician: Renata Mei DO [Primary Care Provider] - Past Medical History: - - Prediabetic Smoking Status: Never smoker Review of Systems All systems negative except as indicated General: Denies: Fever Cardiovascular: Denies: Chest pain Respiratory: Denies: Dyspnea Gastrointestinal: Reports: Abdominal pain, Nausea. Denies: Vomiting, Diarrhea Physical Exam Vital Signs/Narrative: Vital Signs Temp Pulse Resp BP Pulse Ox 05/04/19 23:54 97 F L 69 16 108/70 96 General: Well nourished Head: Normocephalic Eyes: EOMI ENT: Moist mucous membranes Neck: Supple Cardiovascular: Regular rate, Regular rhythm Respiratory: No distress, CTA bilaterally Abdomen: Soft, Nontender, Nondistended Skin: Normal color Neurological: Alert Psychological: Normal affect Diagnostic/Tx/Re-eval Laboratory Tests 05/05/19 05/05/19 Range/Units 00:30 00:30 WBC 5.8 (4.4-11.0) K/mm3 RBC 4.33 (4.2-5.4) M/mm3 Hgb 12.8 (12.0-15.0) g/dl Hct 38.1 (37-47) % MCV 88.0 (81-99) fL MCH 29.6 (27.0-32.0) pg MCHC 33.6 (32-36) g/gl RDW 13.4 (11.6-14.6) % RDW Differential 42.3 (35.1-43.9) fl Plt Count 91 L (150-450) K/mm3 MPV 10.8 (6.2-12.0) fl Immature Gran % (Auto) 0.200 (0.0-0.9) % Neut % (Auto) 60.4 (47-70) % Lymph % (Auto) 27.3 (19-41) % [place] % (Auto) 8.7 (0-10) % Eos % (Auto) 3.1 (0-5) % Baso % (Auto) 0.3 (0-1) % Absolute Neuts (auto) 3.5 (2.0-7.7) X10^3/uL Absolute Lymphs (auto) 1.58 (0.83-4.51) X10^3/ul Total Counted Not Reportable Sodium 138 (136-145) mmol/L Potassium 3.9 (3.5-5.1) mmol/L Chloride 103 (98-107) mmol/L Carbon Dioxide 27.0 (21.0-32.0) mmol/L Anion Gap 8 (5-15) BUN 22 H (7-18) mg/dL Creatinine 1.00 (0.55-1.02) mg/dL Estim Creat Clear Calc 35.99 ml/min Est GFR (MDRD) Af Amer 70 (>60) mL/min Est GFR (MDRD) Non-Af 58 L (>60) mL/min BUN/Creatinine Ratio 22.0 H (10-20) RATIO Glucose 132 H (74-106) mg/dL Calcium 9.5 (8.5-10.1) mg/dL Total Bilirubin 0.40 (0.20-1.00) mg/dL AST 41 H (15-37) U/L ALT 53 (13-56) U/L Alkaline Phosphatase 85 (45-117) U/L Troponin I < 0.015 (<0.045) ng/mL Total Protein 7.8 (6.4-8.2) g/dL Albumin 3.8 (3.2-5.0) g/dL Globulin 4.0 (2.2-4.2) g/dL Albumin/Globulin Ratio 1.0 (0.9-2.4) RATIO Lipase 260 (73-393) U/L - Medical Decision Making EKG shows normal sinus rhythm at a rate of 77 with no acute ischemic changes. Labs notable for thrombocytopenia with platelet count of 91. Thrombocytopenia noted on previous labs. Patient is asymptomatic. She was advised to follow-up as an outpatient. She was advised of possible need for further outpatient work- up such as right upper quadrant ultrasound especially if symptoms continue. She understands to return for new or worsening symptoms, all questions answered bedside, patient agreeable to plan. Patient discharged. ED Disposition - Plan for ED Patient: Diagnosis: Abdominal pain Instructions: ED Abdominal Pain Unkn Cause Referrals: Renata eMi DO [Primary Care Provider] -
[2019-05-05 00:43] LABS: Absolute Lymphocyte Count 1.58 X10^3/ul (0.83-4.51); Absolute Neutrophil Count 3.5 X10^3/uL (2.0-7.7); Basophil# 0.02 X10^3/uL; Basophil% 0.3 % (0-1); Eosinophil# 0.18 X10^3/uL; Eosinophils% 3.1 % (0-5); Hematocrit 38.1 % (37-47); Hemoglobin 12.8 g/dl (12.0-15.0); Lymphocyte # 1.58 X10^3/ul (4.0); Lymphocyte % 27.3 % (19-41); Mean Corp Hgb Conc 33.6 g/gl (32-36); Mean Corpuscular Hgb 29.6 pg (27.0-32.0); Mean Platelet Vol. 10.8 fl (6.2-12.0); Monocyte% 8.7 % (0-10); Neutrophil # 3.49 X10^3/uL (2.7-7.7); Neutrophil % 60.4 % (47-70); POSITIVE COUNT NO; POSITIVE DIFFERENTIAL NO; POSITIVE MORPHOLOGY NO; Platelet Count 91 K/mm3 (150-450); RBC Distribution Width CV 13.4 % (11.6-14.6); RBC Distribution Width SD 42.3 fl (35.1-43.9); Red Blood Count 4.33 M/mm3 (4.2-5.4); White Blood Count 5.8 K/mm3 (4.4-11.0)
[2019-05-05 01:02] LABS: AST(SGOT) 41 U/L (15-37); Alanine Aminotransfer ALT/SGPT 53 U/L (13-56); Albumin, Serum 3.8 g/dL (3.2-5.0); Alkaline Phosphatase 85 U/L (45-117); Anion Gap 8 (5-15); BUN 22 mg/dL (7-18); Calcium,Total 9.5 mg/dL (8.5-10.1); Chloride 103 mmol/L (98-107); EST Glomerular Filtration Rate 58 mL/min (>60); Est Glom Filt Rate - Afr Amer 70 mL/min (>60); Estimated Creatinine Clearance 35.99 ml/min; Glucose 132 mg/dL (74-106); Lipase 260 U/L (73-393); Potassium 3.9 mmol/L (3.5-5.1); Protein, Total 7.8 g/dL (6.4-8.2); Sodium Level 138 mmol/L (136-145)
[2019-05-05 01:21] VITALS: BP 113/57; PULSE 66; RESP 18; O2SAT 94
== END 2019-05-05 01:22 | disposition home or self-care (01) ==
PROVIDERS: Emergency Provider Emergency Medicine; Family Provider Internal Medicine; PCP Internal Medicine
DX: R10.9 Unspecified abdominal pain (principal); D69.6 Thrombocytopenia, unspecified; R73.03 Prediabetes; R11.0 Nausea; Z79.84 Long term (current) use of oral hypoglycemic drugs; Z79.899 Other long term (current) drug therapy; Z88.0 Allergy status to penicillin; Z91.040 Latex allergy status
CPT/HCPCS: 80053; 83690; 84484; 85025; 93005; 99283; A4216

== ENCOUNTER → 2019-08-30 12:51 | Outpatient (CLI) | payer MEDICARE, SELFPAY ==
--- NOTE | 2019-08-30 12:55 | BI_ITS ---
MAMMOGRAPHY - BILATERAL SCREENING REASON FOR EXAM: Female, 74 years old. Routine annual screening examination. PERTINENT HISTORY: Personal history of breast cancer. Bilateral lumpectomies with radiation treatment. Sister with breast cancer. Aunt with breast cancer. TECHNIQUE: Digital bilateral breast shelia (3D mammographic acquisition) in the CC and MLO projections. 2-D mediolateral oblique (MLO) and craniocaudad (CC) views of both breasts were obtained. CAD: Full Field Digital Mammography with Computer Added Detection was performed. COMPARISON: Comparison is made with prior examination of August 23, 2018 and February 22, 2017. FINDINGS: Breast Composition: There are scattered areas of fibroglandular density. There are no dominant masses or suspicious calcifications. Since prior study, there is been lumpectomy of the nodular density seen in the mid slightly lateral portion of the right breast. Surgical clips are once again seen in both axillary regions. There is also evidence of resection of a nodular density in the upper lateral aspect of the left breast. Postoperative scarring is seen bilaterally. No other significant abnormalities are identified. BI/SCREEN MAMM (CAD) W/SHELIA BILAT IMPRESSION: Status post bilateral lumpectomy with resection of the nodular densities. Yearly follow-up mammogram recommended. (A) ASSESSMENT CATEGORY: BIRADS Category 2: Benign. A letter regarding these results will be sent to the patient by the facility within 30 days. Approximately 10% of breast cancers are not detected by mammography. A normal mammogram should not delay biopsy of a clinically suspicious abnormality. [id number] Electronically Signed: Fernando Ford, at 14:52 EDT , Service support ,
== END ==
PROVIDERS: Family Provider Internal Medicine; PCP Internal Medicine; Referring Provider Nurse Practitioner; Visit Provider Nurse Practitioner
DX: Z12.31 Encounter for screening mammogram for malignant neoplasm of breast (principal)
CPT/HCPCS: 77063; 77067

== ENCOUNTER → 2020-08-16 17:08 | Outpatient (CLI) | payer MEDICARE, SELFPAY | PROVIDERS: PCP Internal Medicine; Referring Provider Internal Medicine; Visit Provider Internal Medicine | DX: Z20.828 Contact with and (suspected) exposure to other viral communicable diseases (principal) | CPT/HCPCS: 87635; C9803; U0003 ==

== ENCOUNTER → 2021-03-20 14:50 | Outpatient (CLI) | payer MEDICARE, SELFPAY ==
--- NOTE | 2021-03-20 15:12 | CT_ITS ---
STUDY: CT MAXILLOFACIAL SINUSES REASON FOR EXAM: Female, 75 years old. CHRONIC SINUSITIS RADIATION DOSAGE (If Supplied By Facility): CTDIvol = ( 28.14 ) mGy, DLP = ( 686.39 ) mGycm TECHNIQUE: The patient was scanned in a multi detector CT scanner. High resolution axial imaging was performed without the administration of intravenous contrast material. Sagittal and coronal images were reconstructed. Individualized dose optimization techniques were used for this CT. COMPARISON: None. FINDINGS: FRONTAL SINUSES: Normal aeration, without mucosal inflammatory disease. ETHMOIDAL SINUSES: Normal aeration, without mucosal inflammatory disease. MAXILLARY SINUSES: Normal aeration, without mucosal inflammatory disease. SPHENOIDAL SINUSES: Normal aeration, without mucosal inflammatory disease. There is patency of the bilateral maxillary infundibuli with normal uncinate processes, ethmoid bullae, and hiatus semilunaris. Normal bilateral middle turbinates. Normal bilateral inferior turbinates. Normal midline nasal septum. There is patency of the bilateral nasal airways. The visualized osseous structures are normal. The visualized bilateral orbital contents are normal. CT/Sinus/Facial Bone IMPRESSION: Normal CT examination of the maxillofacial sinuses. Electronically Signed: Epifanio Bond MD at 12:44 EDT , Service support ,
== END ==
PROVIDERS: PCP Nurse Practitioner; Referring Provider Internal Medicine; Visit Provider Internal Medicine
DX: J32.9 Chronic sinusitis, unspecified (principal)
CPT/HCPCS: 70486

== ENCOUNTER → 2021-04-11 11:50 | Outpatient (CLI) | payer MEDICARE, SELFPAY ==
--- NOTE | 2021-04-11 11:53 | BI_ITS ---
MAMMOGRAPHY - BILATERAL SCREENING REASON FOR EXAM: Female, 75 years old. Routine annual screening examination. PERTINENT HISTORY: Personal history of breast cancer. Bilateral lumpectomies and radiation treatment. Sister with breast cancer. Aunt with breast cancer. TECHNIQUE: Digital bilateral breast shelia (3D mammographic acquisition) in the CC and MLO projections. 2-D mediolateral oblique (MLO) and craniocaudad (CC) views of both breasts were obtained. CAD: Full Field Digital Mammography with Computer Added Detection was performed. COMPARISON: Comparison is made with prior study 08/30/2019 and 10/10/2018. FINDINGS: Breast Composition: There are scattered areas of fibroglandular density. There are no dominant masses or suspicious calcifications. Status post lumpectomy in the central slightly lateral aspect of the right breast with resultant postoperative scarring. Scattered microcalcifications. The patient also status post lumpectomy in the left breast with resultant architectural distortion. Surgical clips are seen in the axillary regions bilaterally. No other significant abnormalities are identified. There has been no significant change since the prior study. BI/SCRN MAMM (CAD)W/SHELIA BILAT IMPRESSION: Stable bilateral screening mammogram. Yearly follow-up mammogram recommended. (A) ASSESSMENT CATEGORY: BIRADS Category 2: Benign. A letter regarding these results will be sent to the patient by the facility within 30 days. Approximately 10% of breast cancers are not detected by mammography. A normal mammogram should not delay biopsy of a clinically suspicious abnormality. [id number] Electronically Signed: Fernando Ford MD at 12:41 EDT , Service support ,
== END ==
PROVIDERS: PCP Nurse Practitioner; Referring Provider Nurse Practitioner; Visit Provider Nurse Practitioner
DX: Z12.31 Encounter for screening mammogram for malignant neoplasm of breast (principal); Z85.3 Personal history of malignant neoplasm of breast; Z80.3 Family history of malignant neoplasm of breast
CPT/HCPCS: 77063; 77067

== ENCOUNTER → 2022-05-19 | Outpatient (CLI) | payer MEDICARE, SELFPAY ==
--- NOTE | 2022-05-19 12:15 | BI_ITS ---
MAMMOGRAPHY - BILATERAL SCREENING REASON FOR EXAM: Female, 76 years old. Routine annual screening examination. PERTINENT HISTORY: Personal history of breast cancer treated with bilateral lumpectomies and radiation. Sister with breast cancer. Aunt with breast cancer. TECHNIQUE: Digital bilateral breast shelia (3D mammographic acquisition) in the CC and MLO projections. 2-D mediolateral oblique (MLO) and craniocaudad (CC) views of both breasts were obtained. CAD: Full Field Digital Mammography with Computer Added Detection was performed. COMPARISON: Screening mammogram from 04/11/2021 08/30/2019, 08/13/2018, 02/22/2017. Bilateral diagnostic mammogram from 10/10/2018. Bilateral diagnostic breast ultrasound from 08/30/2018. FINDINGS: Breast Composition: There are scattered areas of fibroglandular density. There are no dominant masses or suspicious calcifications. Stable bilateral lumpectomy postoperative changes with similar appearance of areas of associated architectural distortion. Benign-appearing diffuse bilateral calcifications. Bilateral axillary surgical clips. No other significant abnormalities are identified. There has been no significant change since the prior study. BI/SCRN MAMM (CAD)W/SHELIA BILAT IMPRESSION: Stable bilateral screening mammogram. Yearly follow-up mammogram recommended. (A) ASSESSMENT CATEGORY: BIRADS Category 2: Benign. A letter regarding these results will be sent to the patient by the facility within 30 days. Approximately 10% of breast cancers are not detected by mammography. A normal mammogram should not delay biopsy of a clinically suspicious abnormality. [id number] Electronically Signed: Hamilton Rice, at 9:11 EDT ,
== END | disposition home or self-care (01) ==
LOC: OPBI 12:13
PROVIDERS: PCP Nurse Practitioner; Visit Provider Nurse Practitioner
DX: Z13.820 Encounter for screening for osteoporosis (principal); Z78.0 Asymptomatic menopausal state; Z12.31 Encounter for screening mammogram for malignant neoplasm of breast
CPT/HCPCS: 77063; 77067

== ENCOUNTER → 2023-07-05 | Outpatient (CLI) | payer MEDICARE, SELFPAY ==
--- NOTE | 2023-07-05 12:05 | BI_ITS ---
MAMMOGRAPHY - BILATERAL SCREENING REASON FOR EXAM: Female, 78 years old. Routine annual screening examination. PERTINENT HISTORY: Personal history of breast cancer. History of prior bilateral lumpectomies with radiation treatment. Sisters with breast cancer. Aunt with breast cancer. TECHNIQUE: Digital bilateral breast shelia (3D mammographic acquisition) in the CC and MLO projections. 2-D mediolateral oblique (MLO) and craniocaudad (CC) views of both breasts were obtained. CAD: Full Field Digital Mammography with Computer Added Detection was performed. COMPARISON: Comparison is made with prior examination dated May 19, 2022 and April 11, 2021. FINDINGS: Breast Composition: There are scattered areas of fibroglandular density. There are no dominant masses or suspicious calcifications. Once again, there is evidence of a post operative changes in both breasts secondary to prior lumpectomy. Scattered calcifications bilaterally. No focal clusters seen. Surgical clips are once again seen in both axillary regions. No other significant abnormalities are identified. There has been no significant change since the prior study. BI/SCRN MAMM (CAD)W/SHELIA BILAT IMPRESSION: Stable bilateral screening mammogram. Yearly follow-up mammogram recommended. (A) ASSESSMENT CATEGORY: BIRADS Category 2: Benign. A letter regarding these results will be sent to the patient by the facility within 30 days. Approximately 10% of breast cancers are not detected by mammography. A normal mammogram should not delay biopsy of a clinically suspicious abnormality. [id number] Electronically Signed: Fernando Ford MD at 13:14 EDT ,
== END | disposition home or self-care (01) ==
LOC: OPBI 12:04
PROVIDERS: PCP Nurse Practitioner Family; Referring Provider Nurse Practitioner Family; Visit Provider Nurse Practitioner Family
DX: Z12.31 Encounter for screening mammogram for malignant neoplasm of breast (principal); Z85.3 Personal history of malignant neoplasm of breast; Z80.3 Family history of malignant neoplasm of breast
CPT/HCPCS: 77063; 77067

== ENCOUNTER → 2024-08-01 | Outpatient (CLI) | payer MEDICARE, SELFPAY ==
--- NOTE | 2024-08-01 12:06 | BI_ITS ---
MAMMOGRAPHY - BILATERAL SCREENING REASON FOR EXAM: Female, 79 years old. Routine annual screening examination. PERTINENT HISTORY: Personal history of breast cancer. History of prior bilateral lumpectomies and radiation. Sisters with breast cancer. Aunt with breast cancer. TECHNIQUE: Digital bilateral breast shelia (3D mammographic acquisition) in the CC and MLO projections. 2-D mediolateral oblique (MLO) and craniocaudad (CC) views of both breasts were obtained. CAD: Full Field Digital Mammography with Computer Added Detection was performed. COMPARISON: Comparison is made with prior study dated July 05, 2023 and May 19, 2022. FINDINGS: Breast Composition: There are scattered areas of fibroglandular density. There are no dominant masses or suspicious calcifications. Stable postoperative changes in both breasts secondary to prior lumpectomy. Scattered calcifications bilaterally without a focal cluster. Surgical clips are seen in both axilla. No other significant abnormalities are identified. There has been no significant change since the prior study. BI/SCRN MAMM (CAD)W/SHELIA BILAT IMPRESSION: Stable bilateral screening mammogram. Yearly follow-up mammogram recommended. (A) ASSESSMENT CATEGORY: BIRADS Category 2: Benign. A letter regarding these results will be sent to the patient by the facility within 30 days. Approximately 10% of breast cancers are not detected by mammography. A normal mammogram should not delay biopsy of a clinically suspicious abnormality. [id number] Electronically Signed: Fernando Ford MD at 13:55 EDT ,
== END | disposition home or self-care (01) ==
LOC: OPBI 12:06
PROVIDERS: PCP Nurse Practitioner Family; Referring Provider Nurse Practitioner Family; Visit Provider Nurse Practitioner Family
DX: Z12.31 Encounter for screening mammogram for malignant neoplasm of breast (principal)
CPT/HCPCS: 77063; 77067

== ENCOUNTER 2024-09-25 11:14 | Emergency (ER) | payer MEDICARE, SELFPAY ==
[2024-09-25 11:16] VITALS: BP 146/62; PULSE 82; RESP 18; TEMP 36.3; O2SAT 94; BMI 32.1
--- NOTE | 2024-09-25 12:52 | CT_ITS ---
HISTORY: pain. TECHNIQUE: Helically acquired images were obtained of the cervical spine without contrast. 2D reformatted images were reviewed. A radiation dose optimization technique was used for this scan. 374 images. COMPARISON: None. FINDINGS: VERTEBRAE: Vertebral body heights maintained. Posterior elements intact. ALIGNMENT: 2 mm anterolisthesis of C4-5. Straightening of the cervical lordosis. INTERVERTEBRAL DISCS: Mild posterior disc bulge osteophyte complexes at multiple levels. No critical central canal stenosis. SOFT TISSUES: No prevertebral soft tissue swelling. CT/Spine Cervical without Contras IMPRESSION: No evidence for acute fracture or dislocation in the cervical spine. Mild degenerative change. Electronically Signed: Reva Bryant MD at 13:43 EDT ,
--- NOTE | 2024-09-25 12:52 | CT_ITS ---
HISTORY: headache. TECHNIQUE: Multiple axial images were obtained of the head without intravenous contrast. A radiation dose optimization technique was used for this scan. 243 images. COMPARISON: None. FINDINGS: BRAIN PARENCHYMA: Multiple foci and zones of low attenuation in the bilateral cerebral white matter compatible with chronic small vessel ischemic gliosis. Mild low-attenuation in the left sy radiata. No acute intra-axial hemorrhage identified. CSF SPACES: Generalized volume loss. No midline shift or other significant mass effect. No acute extra-axial hemorrhage seen. OTHER: Intact calvarium. Mild fluid in the left mastoid air cells. Bilateral lens resections. CT/Brain/Head without Contrast IMPRESSION: Small age-indeterminate infarct in the left frontoparietal white matter. Chronic involutional and white matter changes. Electronically Signed: Reva Bryant MD at 13:34 EDT ,
--- NOTE | 2024-09-25 12:56 | EX.ED.DYSGE1 ---
HPI History of Present Illness Chief Complaint: Chest Other Informant: patient and spouse/S.O. Narrative Narrative: 79-year-old female presenting to the emergency room with neck and shoulder pain. Patient states that this is an ongoing issue for months. She states that last night she could not sleep. She states the discomfort is worse when she lays down. She denies any weakness of the arms or paresthesias. Patient notes that the shoulder and neck discomfort seems to come towards the front of her chest. She notes that she has had a hump on her cervical spine for a very long time. Patient denies any known trauma. She is a diabetic. Patient notes that her symptoms are intermittent at times. She notes the occasional occipital ache but not headache. [facility] Medical History Diabetes Home Medications ?Medication ?Instructions ?Recorded ?Last Taken ?Type cholecalciferol (vitamin D3) 25 1,000 unit PO DAILY SUPPLEMENT 10/03/18 Unknown History mcg (1,000 unit) capsule (Vitamin D3) levothyroxine 25 mcg tablet 25 mcg PO DAILY THYROID 10/03/18 04/18/19 History (Synthroid) liraglutide 0.6 mg/0.1 mL (18 mg/3 0.6 mg SQ DAILY DIABETIC 10/03/18 Unknown History mL) subcutaneous pen injector (Victoza 2-Vladimir) metformin 500 mg 24 hr 500 mg PO BID DIABETES 10/03/18 Unknown History tablet,extended release (gastric retention) omega 3-dha 60 mg-epa 90 mg-fish 500 mg PO DAILY SUPPLEMENT 10/03/18 Unknown History oil 500 mg capsule, delayed release (Fish Oil) anastrozole 1 mg tablet 1 mg PO DAILY 03/07/19 Unknown History lidocaine 5 % topical patch 1 patch topical DAILY PRN pain #15 09/25/24 Unknown Rx (Lidoderm) ea meloxicam 7.5 mg tablet 7.5 mg PO DAILY #14 tabs 09/25/24 Unknown Rx semaglutide 14 mg tablet (Rybelsus) 14 mg PO 09/25/24 Unknown History Allergy/AdvReac Type Severity Reaction Status Date / Time latex Allergy Rash Verified 09/25/24 11:18 Penicillins (PCN) Allergy Rash Verified 09/25/24 11:18 Social History household members: spouse housing: house Smoking Status: Never smoker ROS ROS ED Constitutional Constitutional ED: Denies chills or weight loss Eyes Eyes: Denies change in vision or diplopia ENT ENT ED: Denies ear pain, rhinorrhea or sore throat Cardiovascular Cardiovascular: Denies chest pain, orthopnea, palpitations or racing heartbeat Respiratory/Chest Respiratory/Chest: Denies cough, dyspnea or orthopnea Gastrointestinal Gastrointestinal: Denies abdominal pain, diarrhea, nausea or vomiting Genitourinary Genitourinary ED: Denies dysuria, hematuria or urinary frequency Musculoskeletal Musculoskeletal: Reports neck pain and other Details: History of present illness ; Denies arthralgias or myalgias Integumentary Denies abscess or rash Neurologic Neurologic: Denies headache(s), paresthesias or weakness Psychiatric Psychiatric: Denies anxiety, depression, suicidal ideation or suicidal thoughts Endocrine Endocrinology: Denies polydipsia, polyphagia or polyuria Allergic/Immunologic Allergic/Immunologic ED: Denies mouth swelling, tongue swelling or urticaria EXAM Physical Exam Const Vital Signs: 09/25/24 11:16 09/25/24 12:18 09/25/24 13:15 Temperature 97.4 F L Temperature Source Oral Pulse Rate 82 87 Respiratory Rate 18 Respiratory Effort Normal Non-Labored Blood Pressure 146/62 H 122/86 H Blood Pressure Mean 90 98 Pulse Ox 94 Oxygen Delivery Method Room Air 09/25/24 14:44 09/25/24 14:46 Temperature 98 F 97.4 F L Temperature Source Pulse Rate 87 84 Respiratory Rate 16 16 Respiratory Effort Blood Pressure 122/86 H 130/70 H Blood Pressure Mean 98 90 Pulse Ox 99 98 Oxygen Delivery Method Positive well nourished and well developed General Appearance ED: well developed and NAD HEENT Reports normocephalic, head/scalp atraumatic and moist mucous membranes Eyes PERRL and EOMs intact bilaterally Neck no lymphadenopathy, supple and no JVD Neck Narrative: Tender to palpation over the trapezius and cervical musculature. Patient has some degree of kyphosis. Resp normal respiratory effort and clear to auscultation bilaterally Cardio regular rate, regular rhythm and no murmurs GI normal to inspection, nondistended, normoactive bowel sounds and non-tender Palpation: soft Back/Spine no CVA tenderness and normal ROM Extremity normal to inspection Extremity Narrative: I do not appreciate any muscle weakness or muscle wasting. Normal sensation. General Extremety ED: Negative for edema General Extremity: Negative for edema Neuro oriented x3, CN's II-XII intact bilaterally and no sensory deficits noted Sensorium / Orientation: alert Sensory Exam: No sensory level loss detected Motor Exam: strength 5/5 throughout Psych mental status grossly normal Mood & Affect: Negative for depressed or tearful Skin no rashes or lesions noted and no wounds MDM MDM MDM Narrative Medical decision making narrative: Differential diagnosis includes but not limited to muscle spasm cervical stenosis degenerative arthrosis acute coronary syndrome Patient's EKG shows a sinus rhythm with no concerning ST segments. CT of the brain showed no acute findings. CT of the cervical spine demonstrated arthrosis as well as a degree of anterior listhesis at C4-C5. There is straightening of the normal cervical lordosis. I do not see an emergent condition at this time. I believe the patient's symptoms which have been intermittently present for months are most likely related to arthritic changes. I will write for some Lidoderm patches short course of meloxicam. Patient was advised to follow-up with primary care return if worsening History & Record Review Discussion w/independent historian: Patient and Significant other Radiography Diagnostic Testing: Clinical Impression(s) from Imaging Studies Brain CT 09/25/24 12:52 IMPRESSION: Small age-indeterminate infarct in the left frontoparietal white matter. Chronic involutional and white matter changes. Electronically Signed: Reva Bryant MD at 13:34 EDT , Cervical Spine CT 09/25/24 12:52 IMPRESSION: No evidence for acute fracture or dislocation in the cervical spine. Mild degenerative change. Electronically Signed: Reva Bryant MD at 13:43 EDT , EKG Initial EKG: Attestation: I personally reviewed and interpreted this EKG as follows: Comments: Normal sinus rhythm ventricular rate of 86 bpm Discharge Plan Triage Chief Complaint: Chest Other ED Provider: Lyle Guerrero Dx/Rx/DC Orders Clinical Impression: Kyphosis, Paronychia, Degenerative arthritis of cervical spine Instructions: ED Neck Spasm, No Trauma Prescriptions: New lidocaine [Lidoderm] 5 % adhesive patch,medicated 1 patch topical DAILY PRN (Reason: pain) Qty: 15 0RF Rx Instructions: leave on most painful area for up to 12 hrs meloxicam 7.5 mg tablet 7.5 mg PO DAILY Qty: 14 0RF Rx Instructions: take with food No Action levothyroxine [Synthroid] 25 MCG tablet 25 mcg PO DAILY cholecalciferol (vitamin D3) [Vitamin D3] 1,000 UNIT capsule 1,000 unit PO DAILY metformin 500 MG tablet,ER halle.retention 24 hr 500 mg PO BID omega [id number]-ruu-fish oil [Fish Oil] 500 MG capsule,delayed release(DR/EC) 500 mg PO DAILY liraglutide [Victoza 2-Vladimir] 0.6 MG/0.1 ML pen injector 0.6 mg SQ DAILY anastrozole 1 MG tablet 1 mg PO DAILY Rybelsus 14 mg tablet 14 mg PO Primary Care Provider: Lani Alcazar Referrals: Lani Alcazar, [facility] [facility] [Primary Care Provider] - 1 Week Print Language: Sudanese Disposition Disposition: Home, Self Care Discharge Date/Time: 09/25/24 14:47
[2024-09-25 13:15] VITALS: BP 122/86; PULSE 87
[2024-09-25 14:44] VITALS: BP 122/86; PULSE 87; RESP 16; TEMP 36.6; O2SAT 99
[2024-09-25 14:46] VITALS: BP 130/70; PULSE 84; RESP 16; TEMP 36.3; O2SAT 98
== END 2024-09-25 14:47 | disposition home or self-care (01) ==
PROVIDERS: Emergency Provider Emergency Medicine; PCP Nurse Practitioner Family; Visit Provider Emergency Medicine
DX: M40.292 Other kyphosis, cervical region (principal); E11.9 Type 2 diabetes mellitus without complications; M50.321 Other cervical disc degeneration at C4-C5 level; L03.012 Cellulitis of left finger; D69.6 Thrombocytopenia, unspecified; Z79.84 Long term (current) use of oral hypoglycemic drugs; Z79.85 Long-term (current) use of injectable non-insulin antidiabetic drugs
CPT/HCPCS: 36415; 70450; 72125; 85025; 93005; 99282; J7030; A4216

== ENCOUNTER → 2024-09-25 | Outpatient (CLI) | payer MEDICARE, SELFPAY ==
[2024-09-25 10:27] LABS: Absolute Lymphocyte Count 1.85 X10^3/uL (0.83-4.51); Absolute Neutrophil Count 3.7 X10^3/uL (2.0-7.7); Basophil# 0.07 X10^3/uL; Basophil% 1.1 % (0-1); Eosinophil# 0.01 X10^3/uL; Eosinophils% 0.2 % (0-5); Hematocrit 41.2 % (37-47); Hemoglobin 13.6 g/dL (12.0-15.0); Lymphocyte # 1.85 X10^3/ul (0.83-4.51); Lymphocyte % 29.7 % (19-41); Mean Corpuscular Hgb 29.8 pg (27.0-32.0); Mean Corpuscular Volume 90.4 fL (81-99); Mean Platelet Vol. 11.3 fl (6.2-12.0); Monocyte# 0.54 X10^3/uL; Monocyte% 8.7 % (0-10); NRBC Flagged by Analyzer 0 % (0-5); Neutrophil # 3.74 X10^3/uL (2.7-7.7); POSITIVE COUNT YES; Platelet Count 90 K/mm3 (150-450); RBC Distribution Width CV 13.6 % (11.6-14.6); RBC Distribution Width SD 45.2 fl (35.1-43.9); Red Blood Count 4.56 M/mm3 (4.2-5.4); White Blood Count 6.2 K/mm3 (4.4-11.0)
[2024-09-25 10:37] LABS: Differential Indicated SCAN CRITERIA MET
[2024-09-25 11:45] LABS: Differential Comment SCANNED; Platelet Estimate MOD DEC (ADEQ); Red Cell Morphology NORM C+C NORMAL (NORM C&C)
== END | disposition home or self-care (01) ==
LOC: LAB 10:02
PROVIDERS: PCP Nurse Practitioner Family; Referring Provider Nurse Practitioner Family; Visit Provider Nurse Practitioner Family
DX: D69.6 Thrombocytopenia, unspecified (principal)
CPT/HCPCS: 36415; 85025

== ENCOUNTER → 2024-10-09 | Outpatient (CLI) | payer MEDICARE, SELFPAY ==
--- NOTE | 2024-10-09 12:39 | CDU_ITS ---
Reason For Study: Carotid artery stenosis Rt. Velocities/BP Lt. Velocities/BP Prox CCA 78.7/12.6 cm/sec. Prox CCA 90/20.1 cm/sec. Mid CCA 86.3/21.1 cm/sec. Mid CCA 89.1/19.2 cm/sec. Dist CCA 87.2/22 cm/sec. Dist CCA 71.1/16.3 cm/sec. Prox ICA 61.9/15.7 cm/sec. Prox ICA 91.6/16.8 cm/sec. Mid ICA 93.8/26.7 cm/sec. Mid ICA 112.4/32.2 cm/sec. Dist ICA 81.5/22.7 cm/sec. Dist ICA 136.8/44.6 cm/sec. Rt. ICA/CCA = 1.09. Lt. ICA/CCA = 1.54. Prox ECA 100.3/9.1 cm/sec. Prox ECA 135.7/11.5 cm/sec. Rt. Vert. 64.8/8.1 cm/sec. Lt. Vert. 50/15.2 cm/sec. Right Extracranial There is intimal thickening but no significant atherosclerotic plaque noted in the right common carotid artery. There is heterogeneous, irregular atherosclerotic plaque noted in the right internal carotid artery. There is intimal thickening but no significant atherosclerotic plaque noted in the right external carotid artery. Antegrade flow is noted in the right vertebral artery. Left Extracranial There is intimal thickening but no significant atherosclerotic plaque noted in the left common carotid artery. There is heterogeneous, irregular atherosclerotic plaque noted in the left internal carotid artery. The left internal carotid artery is very tortuous. There is heterogeneous, irregular atherosclerotic plaque noted in the left external carotid artery. Antegrade flow is noted in the left vertebral artery. Procedure This is a Carotid Duplex examination using B-mode, color flow and specral Doppler. Carotid Duplex [id number]. Exam performed in department. VL/Carotid Duplex Ultrasound Interpretation Summary Mild (<50%) stenosis right extracranial internal carotid. Moderate (50-69%) stenosis left extracranial internal carotid. Patent and antegrade vertebrals bilaterally. Ordering Physician: Lani Alcazar Referring Physician: Lani Alcazar Performed By: Kiersten Bright RVT
--- NOTE | 2024-10-09 12:39 | CDU_ITS ---
Reason For Study: Carotid artery stenosis Rt. Velocities/BP Lt. Velocities/BP Prox CCA 78.7/12.6 cm/sec. Prox CCA 90/20.1 cm/sec. Mid CCA 86.3/21.1 cm/sec. Mid CCA 89.1/19.2 cm/sec. Dist CCA 87.2/22 cm/sec. Dist CCA 71.1/16.3 cm/sec. Prox ICA 61.9/15.7 cm/sec. Prox ICA 91.6/16.8 cm/sec. Mid ICA 93.8/26.7 cm/sec. Mid ICA 112.4/32.2 cm/sec. Dist ICA 81.5/22.7 cm/sec. Dist ICA 136.8/44.6 cm/sec. Rt. ICA/CCA = 1.09. Lt. ICA/CCA = 1.54. Prox ECA 100.3/9.1 cm/sec. Prox ECA 135.7/11.5 cm/sec. Rt. Vert. 64.8/8.1 cm/sec. Lt. Vert. 50/15.2 cm/sec. Right Extracranial There is intimal thickening but no significant atherosclerotic plaque noted in the right common carotid artery. There is heterogeneous, irregular atherosclerotic plaque noted in the right internal carotid artery. There is intimal thickening but no significant atherosclerotic plaque noted in the right external carotid artery. Antegrade flow is noted in the right vertebral artery. Left Extracranial There is intimal thickening but no significant atherosclerotic plaque noted in the left common carotid artery. There is heterogeneous, irregular atherosclerotic plaque noted in the left internal carotid artery. The left internal carotid artery is very tortuous. There is heterogeneous, irregular atherosclerotic plaque noted in the left external carotid artery. Antegrade flow is noted in the left vertebral artery. Procedure This is a Carotid Duplex examination using B-mode, color flow and specral Doppler. Carotid Duplex [id number]. Exam performed in department. VL/Carotid Duplex Ultrasound Interpretation Summary Mild (<50%) stenosis right extracranial internal carotid. Moderate (50-69%) stenosis left extracranial internal carotid. Patent and antegrade vertebrals bilaterally. Ordering Physician: Lani Alcazar Referring Physician: Lani Alcazar Performed By: Kiersten Bright RVT
== END | disposition home or self-care (01) ==
LOC: CVS 12:39
PROVIDERS: PCP Nurse Practitioner Family; Referring Provider Nurse Practitioner Family; Visit Provider Nurse Practitioner Family
DX: I65.23 Occlusion and stenosis of bilateral carotid arteries (principal)
CPT/HCPCS: 93880

== ENCOUNTER → 2024-10-31 | Outpatient (CLI) | payer MEDICARE, SELFPAY ==
[2024-10-31 13:15] LABS: CREATININE FINGERSTICK < 1.0 mg/dL (0.55-1.02); EGFR FINGERSTICK > 60.0000 mL/min (>60)
--- NOTE | 2024-10-31 13:17 | MRI_ITS ---
EXAM: MR HEAD WITHOUT AND WITH INTRAVENOUS CONTRAST CLINICAL INDICATION: Frontoparietal Cerebral Atrophy TECHNIQUE: Multiplanar and multisequence MR images of the brain were obtained without and with intravenous contrast. CONTRAST: 15ML IV CLARISCAN COMPARISON: CT September 25, 2024, mentioned small age-indeterminate infarct in the left frontoparietal white matter and chronic changes. FINDINGS: BRAIN AND EXTRA-AXIAL SPACES: No restricted diffusion to suggest acute CVA or active demyelinating lesion. Mild cerebral volume loss. Mild-moderate deep periventricular high signal white matter change and multiple patchy high signal foci in the deep structures on T2-weighted inversion recovery images. No intra- or extra-axial hemorrhage. No evidence of acute infarct. No intracranial mass or mass effect. There is preservation of the bauer/white matter interface. Posterior fossa structures are unremarkable. No hydrocephalus. Basal cisterns are patent. SELLA: Unremarkable. Normal sella turcica, pituitary gland, infundibular stalk, optic chiasm and hypothalamus. AUDITORY SYSTEM: Unremarkable. The internal auditory canals are patent. BONES/JOINTS: Unremarkable. No discrete lytic or blastic abnormalities. SINUSES: Unremarkable as visualized. Clear. MASTOID AIR CELLS: Unremarkable as visualized. Clear. ORBITS: Unremarkable as visualized. Both globes, extraocular muscles, optic nerves and retrobulbar fat appear unremarkable. VASCULATURE: Small signal voids of the distal vertebral arteries and very small basilar artery signal void is seen, there appears to be origin of the instructor private with small but patent signal voids. Enhanced deep veins and major dural venous sinuses. No enhancing nodules. MRI/Brain W/WO Contrast IMPRESSION: No acute findings in the head/brain. Chronic changes. Electronically Signed: Michelle Sutton MD at 2:10 EST ,
== END | disposition home or self-care (01) ==
LOC: MRI 12:29
PROVIDERS: PCP Nurse Practitioner Family; Referring Provider Nurse Practitioner Family; Visit Provider Nurse Practitioner Family
DX: G31.9 Degenerative disease of nervous system, unspecified (principal)
CPT/HCPCS: 70553; A9575

== ENCOUNTER 2025-05-31 10:09 | Emergency (ER) | payer MEDICARE, SELFPAY ==
[2025-05-31 10:10] VITALS: BP 172/66; PULSE 105; RESP 18; TEMP 36.8; O2SAT 97; BMI 32.8
[2025-05-31 12:06] VITALS: BP 136/69; PULSE 87; RESP 22; O2SAT 96
[2025-05-31 12:51] VITALS: BP 149/61; PULSE 85; RESP 16; TEMP 36.8; O2SAT 97
== END 2025-05-31 13:01 | disposition home or self-care (01) ==
PROVIDERS: Emergency Provider Emergency Medicine; PCP Nurse Practitioner Family; Visit Provider Emergency Medicine
DX: S42.352A Displaced comminuted fracture of shaft of humerus, left arm, initial encounter for closed fracture (principal); E11.9 Type 2 diabetes mellitus without complications; S05.12XA Contusion of eyeball and orbital tissues, left eye, initial encounter; W01.198A Fall on same level from slipping, tripping and stumbling with subsequent striking against other object, initial encounter; Z79.84 Long term (current) use of oral hypoglycemic drugs
CPT/HCPCS: 70450; 70486; 72125; 73030; 90715; 96374; 96375; 99284; J2405

== ENCOUNTER 2025-06-06 02:23 | Inpatient (IN) | payer MEDICARE, SELFPAY ==
[2025-06-06] VITALS (12 sets, daily range): BP systolic 95–145; BP diastolic 47–75; PULSE 79–117; RESP 14–22; TEMP 36.1–37.1; O2SAT 22–97; BMI 32.1
--- NOTE | 2025-06-06 02:32 | EDS_ITS ---
HPI History of Present Illness Chief Complaint: Syncope [facility] Medical History History of breast cancer (~2018) Diabetes Home Medications ?Medication ?Instructions ?Recorded ?Last Taken ?Type cholecalciferol (vitamin D3) 25 1,000 unit PO DAILY DURANT PPLEMENT 10/03/18 Unknown History mcg (1,000 unit) capsule (Vitamin D3) levothyroxine 25 mcg tablet 25 mcg PO DAILY THYROID 04/18/19 History
--- NOTE | 2025-06-06 02:32 | EDS_ITS ---
HPI History of Present Illness Chief Complaint: Syncope [facility] Medical History History of breast cancer (~2018) Diabetes Home Medications ?Medication ?Instructions ?Recorded ?Last Taken ?Type cholecalciferol (vitamin D3) 25 1,000 unit PO DAILY DURANT PPLEMENT 10/03/18 Unknown History mcg (1,000 unit) capsule (Vitamin D3) levothyroxine 25 mcg tablet 25 mcg PO DAILY THYROID 04/18/19 History
--- NOTE | 2025-06-06 02:32 | EX.ED.DYSGE1 ---
HPI History of Present Illness Chief Complaint: Syncope [facility] Medical History History of breast cancer (~2018) Diabetes Home Medications ?Medication ?Instructions ?Recorded ?Last Taken ?Type cholecalciferol (vitamin D3) 25 1,000 unit PO DAILY SUPPLEMENT 10/03/18 Unknown History mcg (1,000 unit) capsule (Vitamin D3) levothyroxine 25 mcg tablet 25 mcg PO DAILY THYROID 10/03/18 04/18/19 History (Synthroid) omega 3-dha 60 mg-epa 90 mg-fish 500 mg PO DAILY SUPPLEMENT 10/03/18 Unknown History oil 500 mg capsule, delayed release (Fish Oil) semaglutide 14 mg tablet (Rybelsus) 14 mg PO DAILY 09/25/24 Unknown History ezetimibe 10 mg tablet (Zetia) 10 mg PO QDAY 01/04/25 Unknown History glimepiride 4 mg tablet 4 mg PO QAM 01/04/25 Unknown History hydrocodone-acetaminophen 5-325mg 1 tab PO Q6H PRN PRN Pain 3 days 05/31/25 06/05/25 17:00 Rx 5mg-325mg #10 TABLETS Allergy/AdvReac Type Severity Reaction Status Date / Time latex Allergy Rash Verified 06/06/25 02:24 Penicillins (PCN) Allergy Rash Verified 06/06/25 02:24 Family History (Updated 01/04/25 @ 09:47 by Radha Jolly) Other Asthma Breast cancer CAD (coronary artery disease) Diabetes Heart disease Hypertension Myocardial infarction Thyroid disorder Surgical History Hx of lumpectomy Social History household members: spouse housing: house Smoking Status: Never smoker EXAM Physical Exam Const Vital Signs: 06/06/25 02:24 06/06/25 02:30 Temperature 97 F L Temperature Source Temporal Pulse Rate 106 H Respiratory Rate 14 Respiratory Effort Normal Respiratory Pattern Normal Blood Pressure 114/47 L Blood Pressure Mean 69 Pulse Ox 96 Oxygen Delivery Method Room Air MDM MDM MDM Narrative Medical decision making narrative: HISTORY OF PRESENT ILLNESS: Chief complaint: Dizziness, passing out 79-year-old female presents after reported episode of syncope. She know she was walking to the bathroom tonight and her assisted her to the ground. She also complains of nausea. Notes she was in the bathroom when she was trying to use the toilet she became lightheaded/dizzy/warm. No significant nausea. Notes that she did not ambulated back to her room she lost consciousness. Her saw this and noted complete loss of postural tone. He was able to support her fall. There is no obvious trauma from the event. The patient denies prodromal headache, chest pain, abdominal pain, shortness of breath. No recent dark stools or blood in the urine. The patient denies recent surgery in the last 4 weeks or immobilization in the last 3 days, denies previous diagnosis of DVT or PE, hemoptysis, unilateral leg swelling or malignancy with treatment the last 6 months or palliative. No estrogen use noted. REVIEW OF SYSTEMS: Pertinent positives: Dizziness, syncope, nausea Pertinent negatives: As per HPI PHYSICAL EXAM: Nursing triage notes reviewed, Vital signs reviewed Constitutional: please see [facility] HENT: MMM Eyes: Pupils equal round and reactive to light, Extraocular muscles intact Neck: No stridor, no JVD, full neck ROM Lungs: Clear to auscultation, No wheezing or rales. No increased work of breathing, no conversational dyspnea, no accessory muscle use, no nasal flaring. No respiratory distress noted Heart: Regular rate and rhythm, No murmurs, No rubs and No gallops, 2+ distal pulses (radial, femoral, posterior tibial) in all extremities Abdomen: Soft, there is no tenderness, rigidity, rebound or guarding, no obvious peritoneal signs, no palpable pulsatile abdominal masses, no auscultated abdominal bruit : No CVAT Extremities: No edema Neuro: No new focal neurological deficits, cranial nerves II through XII intact, 5/5 strength in all present extremities. Intact sensation to light touch in all present extremities, 2+ reflexes bilateral patella tendons. Skin: No rash or lesions noted MEDICAL DECISION MAKING: Chief Complaint: please see HPI External records reviewed: Reviewed ED visit from 05/31/2025 where the patient was evaluated for a fall. Notes was mechanical fall from standing and fell down embankment. Per documentation there was cervical spine tenderness, large hematoma over the inferior orbit. CT scan of the brain, cervical spine and face were done. CT scan of the brain showed no bleed. There was noted to be no facial fracture. X-ray of the shoulder showed a comminuted fracture left humeral neck. Tetanus was updated. Patient was treated morphine and Zofran. She was given a sling and swath. She was given referral to orthopedics Factors affecting care: Recent trauma, type 2 diabetes Social determinants of health: none History obtained from others: none Consults: none [facility] Narrative: The patient was initially tachycardic with heart rate of 106 otherwise afebrile and nontoxic-appearing. Exam with bruising noted to face, subconjunctival hemorrhage noted. Severe bruising to left chest as well as left arm. Otherwise no focal cardiopulmonary abnormalities were noted. Abdomen soft and nontender. I considered the following differential diagnosis: ACS, arrhythmia, anemia, electrolyte disturbance, VTE, dehydration, vasovagal syncope The patient's history of using the bathroom, nausea, warmth suggest vasovagal syncope by history. I obtained broad lab and imaging to further determine if the patient was suffering from a life-threatening etiology. Initially treat the patient with IV morphine, IV Zofran and 1 L normal saline for initial resuscitative measures. ALL IMAGES (IF OBTAINED) HAVE BEEN PERSONALLY REVIEWED AND INTERPRETED BY MYSELF. EKG with sinus tachycardia rate 103, normal axis, normal intervals, no STEMI D-dimer grossly elevated.This could be a false positive given recent trauma. Will perform CTA to rule out VTE. CBC with no leukocytosis to suggest significant systemic inflammation however there is severe anemia. Baseline blood counts were normal today she 7.0. Noted thrombocytopenia as well. High-sensitivity troponin is negative, no evidence of myocardial ischemia BNP within normal limits CTA of the chest shows no evidence of PE BMP without significant electrolyte abnormalities, no signs endorgan damage, no TAMY LFTs show no evidence of hepatobiliary pathology. Urinalysis without hematuria During the patient's ED course she transiently hypotensive with blood pressure 95 systolic, she remained tachycardic. Given hemoglobin of 7 I ordered 1 unit transfusion. Given severe anemia dizziness symptomatic anemia thought the patient be admitted to the hospital. Her trauma was 6 days ago. She had no new trauma. Her left arm had significant amount of bruising as well as her face I suspect some of her blood loss related to this. She has no other source of bleeding including symptoms of melena, medic easier, hematemesis, hematuria vaginal bleeding etc. she is on a blood thinner. I discussed the case with hospital Dr. Lucero who felt uncomfortable admitting the patient without getting additional imaging. Initially recommended repeating imaging of the brain. Getting a CT scan of her shoulder and a CT scan of her abdomen to look for source of bleeding. I do not think CT scans of the brain or shoulder will reveal adequate source of bleeding as the patient's exam did not reveal any palpable hematoma which should be easily felt in the arm. I did agree with obtaining a CT scan of her abdomen to look for signs of bleeding or retroperitoneal bleeding. And saying that the patient had no abdominal pain flank pain and no bruising Natanael sign or Peralta Ellsworth sign. Plan is to await Noncon CT result. If negative patient would be appropriate to stay here with hospital to undergo blood transfusion further evaluation if there is signs of trauma related bleeding will be transferred to nearest trauma center. The patient and/or family, caregivers express understanding. The patient and/or family, caregivers agrees with the plan. Shared decision making: I will have a discussion with the patient and or visitors regarding risk/benefits of further testing or admission. They will be made aware of of the risk/benefits inherent in this decision they will be given the opportunity to voice understanding. Total critical care time today provided was at least 0 minutes. This excludes separately billable procedures. Critical care time (if documented) is secondary to the patient having high probability of clinically significant/life threatening deterioration in the patient's condition which required my urgent intervention. Impression: 1. Syncope 2. Dizziness 3. Severe anemia Dispo: Awaiting CT scan. Signed out to daytime physician. This note was generated with [employer] dictation software. It may contain incorrect words, spelling, and punctuation that were not noted in review of the chart prior to signing. Lab Data Labs: Laboratory Results - last 24 hr 06/06/25 03:00 WBC 7.4 RBC 2.69 L Hgb 7.0 L Hct 22.5 L MCV 83.6 MCH 26.0 L MCHC 31.1 L RDW Std Deviation 48.2 H RDW Coeff of Colten 15.9 H Plt Count 65 L MPV 11.6 D-Dimer Quant (PE/DVT) 3.09 H* Radiography Diagnostic Testing: Clinical Impression(s) from Imaging Studies Chest X-Ray 06/06/25 03:10 IMPRESSION: No acute cardiopulmonary process. Incidentally noted acute left humerus neck fracture and humerus head fracture Reading Location: [place] [id number] Discharge Plan Triage Chief Complaint: Syncope Other Complaint: Dizziness ED Provider: Rd Jennings Dx/Rx/DC Orders Prescriptions: No Action ezetimibe [Zetia] 10 mg tablet 10 mg PO QDAY glimepiride 4 mg tablet 4 mg PO QAM Rx Instructions: administer with breakfast levothyroxine [Synthroid] 25 MCG tablet 25 mcg PO DAILY cholecalciferol (vitamin D3) [Vitamin D3] 1,000 UNIT capsule 1,000 unit PO DAILY Fish Oil 500 MG capsule,delayed release(DR/EC) 500 mg PO DAILY Rybelsus 14 mg tablet 14 mg PO DAILY hydrocodone-acetaminophen 5-325 mg tablet 1 tab PO Q6H PRN PRN (Reason: Pain) 3 Days Qty: 10 0RF Primary Care Provider: Lani Alcazar Referrals: Lani Alcazar, MAIL HANDLER EQUIPMENT OPERATOR-C [Primary Care Provider] - Print Language: Bengali
[2025-06-06] MEDS: 0.9% Normal Saline (1000mL) 1,000 ML 999 ML IV ×2 (03:00→06:47)
--- NOTE | 2025-06-06 03:10 | RAD_ITS ---
PROCEDURE: CHEST 1 VIEW (PORTABLE) 06/06/2025 REASON FOR EXAM: SYNCOPE TECHNIQUE: Frontal view of the chest. COMPARISON: None FINDINGS: Heart: Cardiac and mediastinal contours are stable. Lungs: No significant change in the appearance of the lungs. Bones: No definite acute rib fracture. Incidental note of acute left humerus neck and greater tuberosity fracture is noted. RAD/Chest 1 View (Portable) IMPRESSION: No acute cardiopulmonary process. Incidentally noted acute left humerus neck fracture and humerus head fracture Reading [facility]
--- NOTE | 2025-06-06 03:10 | RAD_ITS ---
PROCEDURE: CHEST 1 VIEW (PORTABLE) 06/06/2025 REASON FOR EXAM: SYNCOPE TECHNIQUE: Frontal view of the chest. COMPARISON: None FINDINGS: Heart: Cardiac and mediastinal contours are stable. Lungs: No significant change in the appearance of the lungs. Bones: No definite acute rib fracture. Incidental note of acute left humerus neck and greater tuberosity fracture is noted. RAD/Chest 1 View (Portable) IMPRESSION: No acute cardiopulmonary process. Incidentally noted acute left humerus neck fracture and humerus head fracture Reading Location: [facility]
[2025-06-06 03:15] LABS: Hematocrit 22.5 % (37-47); Hemoglobin 7.0 g/dL (12.0-15.0); Mean Corp Hgb Conc 31.1 g/dL (32-36); Mean Corpuscular Volume 83.6 fL (81-99); Mean Platelet Vol. 11.6 fl (6.2-12.0); POSITIVE COUNT YES; Platelet Count 65 K/mm3 (150-450); RBC Distribution Width CV 15.9 % (11.6-14.6); RBC Distribution Width SD 48.2 fl (35.1-43.9); Red Blood Count 2.69 M/mm3 (4.2-5.4); White Blood Count 7.4 K/mm3 (4.4-11.0)
[2025-06-06 03:19] LABS: Scan Indicated on CBC? Y/N YES- FLAGS NOTED
[2025-06-06 03:26] LABS: D-Dimer Quantitative (DVT/PE) 3.09 FEU/ug/m (0.27-0.49)
--- NOTE | 2025-06-06 03:28 | CT_ITS ---
PROCEDURE: CTA CHEST W/WO CONTRAST 06/06/2025 REASON FOR EXAM: SYNCOPE ELEVATED D-DIMER TECHNIQUE: CTA CHEST W/WO CONTRAST Multiplanar Sagittal and Coronal images were obtained. CONTRAST: VOLUME: mL One or more dose reduction techniques were used (e.g., Automated exposure control, adjustment of the mA and/or kV according to patient size, use of iterative reconstruction technique). RADIATION DOSE SUMMARY: CTDlvol: mGy DLP: mGycm COMPARISON: none # of known CTs in the past 12 months: # of known Cardiac Nuclear Medicine Studies in the past 12 months: FINDINGS: No evidence of any filling defect in the main pulmonary trunk, bilateral main pulmonary arteries, segmental arteries and subsegmental arteries to suggest acute or chronic pulmonary embolism. Dilated pulmonary artery and its branches. Dilated thoracic aorta showing intimal irregularities and calcified atheromatous plaques. No intraluminal hypodense thrombi, dissecting intimal flaps or significant aneurysmal dilatation. Cardiomegaly. Bilateral pulmonary interstitial thickening with subpleural reticular densities, scattered patchy ground glass opacities and atelectatic plates. No pleural or pericardial sac collections. No pathologically enlarged hilar or mediastinal lymph nodes are noted. Scanned osseous structures show spondylosis. No osseous destruction. Mild diffuse esophageal wall thickening, possibly esophagitis. CT/CTA Chest W/WO Contrast IMPRESSION: No evidence of pulmonary arterial thromboembolism. Bilateral pulmonary interstitial thickening with subpleural reticular densities , scattered patchy ground glass opacities and atelectatic plates. Finding are suggestive of interstitial lung disease, yet as sociated infection cannot be excluded. Advise clinical correlation. Mild diffuse esophageal wall thickening, possibly esophagitis. Reading Location: [place] [address]
--- NOTE | 2025-06-06 03:30 | EKG12_ITS ---
Test Reason : SYNC Blood Pressure : */* mmHG Vent. Rate : 103 BPM Atrial Rate : 103 BPM P-R Int : 146 ms QRS Dur : 78 ms QT Int : 342 ms P-R-T Axes : 33 19 55 degrees QTcB Int : 448 ms Sinus tachycardia Minimal voltage criteria for LVH, may be normal variant ( R in aVL ) Inferior infarct , age undetermined Abnormal ECG Confirmed by SHARATH CLEMONS, YORDY ([id number]), story editor ERUM RED ([id number]) on 06/07/2025 6:38:19 AM Referred By: Confirmed By: YORDY EARLY MD
--- NOTE | 2025-06-06 03:30 | EKG12_ITS ---
Test Reason : SYNC Blood Pressure : */* mmHG Vent. Rate : 103 BPM Atrial Rate : 103 BPM P-R Int : 146 ms QRS Dur : 78 ms QT Int : 342 ms P-R-T Axes : 33 19 55 degrees QTcB Int : 448 ms Sinus tachycardia Minimal voltage criteria for LVH, may be normal variant ( R in aVL ) Inferior infarct , age undetermined Abnormal ECG Confirmed by SHARATH CLEMONS, YORDY ([id number]), supervising film or videotape editor ERUM RED ([id number]) on 06/07/2025 6:38:19 AM Referred By: Confirmed By: YORDY EARLY MD
[2025-06-06 03:31] LABS: Mucous, Urine 0 SEEN /hpf (<or=2+); Red Blood Cells-Urine 0 SEEN /hpf (0-5)
[2025-06-06 03:36] LABS: Color, Urine Yellow (Yellow); Glucose, Dipstick 1000 mg/dl (Normal); Ketone-Dipstick 15 mg/dl (Negative); Leukocyte Esterase-Dipstick Negative /ul (Negative); Nitrite-Dipstick Negative (Negative); Occult Blood-Urine Negative /ul (Negative); Protein-Dipstick 15 mg/dl (Negative); Specific Gravity, Urine 1.020 (1.002-1.030); Urine Bilirubin Dipstick Negative (Negative)
[2025-06-06 04:19] LABS: AST(SGOT) 36 U/L (<=31); Alanine Aminotransfer ALT/SGPT 24 U/L (<=34); Albumin, Serum 3.2 g/dL (3.4-4.8); Alkaline Phosphatase 81 U/L (35-104); Anion Gap 11 (5-15); BUN 20 mg/dL (4-19); BUN/Creat Ratio 29.0 RATIO (10-20); Calcium,Total 8.5 mg/dL (7.6-11.0); Carbon Dioxide 19.9 mmol/L (21.0-32.0); Chloride 104 mmol/L (98-108); Globulin 2.8 g/dL (2.2-4.2); Glucose 302 mg/dL (70-99); Potassium 4.6 mmol/L (3.3-5.1)
[2025-06-06 04:23] LABS: Squamous Epithelial Cells - UA 5-10 SEEN /hpf (5-10)
[2025-06-06 04:29] LABS: Pro- Brain NATRIURETIC PEPTIDE 46 pg/mL (<=1800); Troponin T High Sensitivity 8 ng/L (<=14)
[2025-06-06 05:26] LABS: Troponin T High Sens 2 HR 7 ng/L (<=14)
--- NOTE | 2025-06-06 06:41 | CT_ITS ---
PROCEDURE: ABDOMEN/PELVIS WITHOUT CONT 06/06/2025 REASON FOR EXAM: BLOOD LOSS Recent injury. History of breast cancer. TECHNIQUE: ABDOMEN/PELVIS WITHOUT CONT Noncontrast technique limits evaluation of the abdominal and pelvic viscera. Coronal and Sagittal reconstruction series were provided. One or more dose reduction techniques were used (e.g., Automated exposure control, adjustment of the mA and/or kV according to patient size, use of iterative reconstruction technique). RADIATION DOSE SUMMARY: CTDlvol: 13.98 mGy DLP: 702.16 mGycm COMPARISON: None FINDINGS: Lung bases: Mild degree of increased markings at the lung bases suggestive of either linear atelectasis and/or scarring. Coronary artery calcification. Liver: Normal size. No obvious mass. Gallbladder: Multiple gallstones along the dependent portion of the gallbladder lumen. There is also evidence of a gallstone in the neck of the gallbladder. Spleen: Mild splenomegaly. Pancreas: Diffuse fatty atrophy. Adrenals: Unremarkable Kidneys: Contrast is seen within the kidneys. The patient did have a CT chest with IV contrast. Bladder: Unremarkable Reproductive Organs: Unremarkable Bowel: Colonic diverticulosis without diverticulitis. Appendix: Unremarkable Lymph nodes: Unremarkable. Vasculature: Mild diffuse atherosclerotic calcifications are noted. Peritoneum / Retroperitoneum: Unremarkable Bones: Degenerative changes of the spine. CT/Abdomen/Pelvis without Cont IMPRESSION: Scarring and/or atelectasis at the lung bases. Gallstones. A stone is seen in the neck of the gallbladder. Sigmoid diverticulosis. Splenomegaly. Reading Location: [place] [id number]
[2025-06-06 08:11] LABS: Troponin T High Sens 4 HR 9 ng/L (<=14)
--- NOTE | 2025-06-06 08:42 | EX.ED.DYSGE1 ---
HPI History of Present Illness Chief Complaint: Syncope [facility] Medical History (Updated 06/06/25 @ 08:[address] Kelvin Butt, DO) History of breast cancer (~2018) Diabetes Home Medications ?Medication ?Instructions ?Recorded ?Last Taken ?Type cholecalciferol (vitamin D3) 25 1,000 unit PO DAILY SUPPLEMENT 10/03/18 Unknown History mcg (1,000 unit) capsule (Vitamin D3) levothyroxine 25 mcg tablet 25 mcg PO DAILY THYROID 10/03/18 04/18/19 History (Synthroid) omega 3-dha 60 mg-epa 90 mg-fish 500 mg PO DAILY SUPPLEMENT 10/03/18 Unknown History oil 500 mg capsule, delayed release (Fish Oil) semaglutide 14 mg tablet (Rybelsus) 14 mg PO DAILY 09/25/24 Unknown History ezetimibe 10 mg tablet (Zetia) 10 mg PO QDAY 01/04/25 Unknown History glimepiride 4 mg tablet 4 mg PO QAM 01/04/25 Unknown History hydrocodone-acetaminophen 5-325mg 1 tab PO Q6H PRN PRN Pain 3 days 05/31/25 06/05/25 17:00 Rx 5mg-325mg #10 TABLETS Allergy/AdvReac Type Severity Reaction Status Date / Time latex Allergy Rash Verified 06/06/25 02:24 Penicillins (PCN) Allergy Rash Verified 06/06/25 02:24 Family History (Updated 01/04/25 @ 09:47 by Radha Jolly) Other Asthma Breast cancer CAD (coronary artery disease) Diabetes Heart disease Hypertension Myocardial infarction Thyroid disorder Surgical History Hx of lumpectomy Social History household members: spouse housing: house Smoking Status: Never smoker EXAM Physical Exam Const Vital Signs: 06/06/25 02:24 06/06/25 02:30 06/06/25 04:30 Temperature 97 F L Temperature Source Temporal Pulse Rate 106 H 102 H Respiratory Rate 14 18 Respiratory Effort Normal Respiratory Pattern Normal Blood Pressure 114/47 L 96/67 Blood Pressure Mean 69 76 Blood Pressure Source Blood Pressure Position Blood Pressure Location Pulse Ox 96 94 Oxygen Delivery Method Room Air Room Air 06/06/25 06:00 06/06/25 06:27 06/06/25 07:26 Temperature 98.1 F 98.3 F Temperature Source Oral Pulse Rate 115 H 114 H 117 H Respiratory Rate 18 18 18 Respiratory Effort Respiratory Pattern Blood Pressure 95/59 L 132/57 H 135/65 H Blood Pressure Mean 71 82 88 Blood Pressure Source Monitor Blood Pressure Position Semi-Fowlers Blood Pressure Location Right Arm Pulse Ox 92 95 96 Oxygen Delivery Method Room Air Room Air 06/06/25 07:41 Temperature 98.1 F Temperature Source Oral Pulse Rate 113 H Respiratory Rate 22 H Respiratory Effort Respiratory Pattern Blood Pressure 123/52 H Blood Pressure Mean 75 Blood Pressure Source Monitor Blood Pressure Position Semi-Fowlers Blood Pressure Location Right Arm Pulse Ox 97 Oxygen Delivery Method Room Air MDM MDM Lab Data Labs: Laboratory Results - last 24 hr 06/06/25 06/06/25 06/06/25 03:00 03:26 03:33 WBC 7.4 RBC 2.69 L Hgb 7.0 L Hct 22.5 L MCV 83.6 MCH 26.0 L MCHC 31.1 L RDW Std Deviation 48.2 H RDW Coeff of Colten 15.9 H Plt Count 65 L MPV 11.6 D-Dimer Quant (PE/DVT) 3.09 H* Sodium 135 Potassium 4.6 Chloride 104 Carbon Dioxide 19.9 L Anion Gap 11 BUN 20 H Creatinine 0.68 L Est GFR (MDRD) Non-Af 88 BUN/Creatinine Ratio 29.0 H Glucose 302 H Calcium 8.5 Total Bilirubin 0.66 AST 36 H ALT 24 Alkaline Phosphatase 81 Troponin T High Sens 8 Troponin T Hi Sens 2 Hr Troponin T Hi Sens 4Hr NT pro BNP II 46 Total Protein 6.0 Albumin 3.2 L Globulin 2.8 Albumin/Globulin Ratio 1.1 Urine Color Yellow Urine Clarity Clear Urine pH 6.0 Ur Specific [place] 1.020 Urine Protein 15 H Urine Glucose (UA) 1000 H Urine Ketones 15 H Urine Occult Blood Negative Urine Nitrite Negative Urine Bilirubin Negative Urine Urobilinogen Normal Ur Leukocyte Esterase Negative Urine RBC 0 SEEN Urine WBC 0-5 SEEN Ur Squamous Epith Cells 5-10 SEEN Urine Bacteria RARE Hyaline Casts 10-25 SEEN Urine Mucus 0 SEEN Blood Type O POSITIVE Antibody Screen NEGATIVE Crossmatch See Detail 06/06/25 06/06/25 04:53 06:49 WBC RBC Hgb Hct MCV MCH MCHC RDW Std Deviation RDW Coeff of Colten Plt Count MPV D-Dimer Quant (PE/DVT) Sodium Potassium Chloride Carbon Dioxide Anion Gap BUN Creatinine Est GFR (MDRD) Non-Af BUN/Creatinine Ratio Glucose Calcium Total Bilirubin AST ALT Alkaline Phosphatase Troponin T High Sens Troponin T Hi Sens 2 Hr 7 Troponin T Hi Sens 4Hr 9 NT pro BNP II Total Protein Albumin Globulin Albumin/Globulin Ratio Urine Color Urine Clarity Urine pH Ur Specific [place] Urine Protein Urine Glucose (UA) Urine Ketones Urine Occult Blood Urine Nitrite Urine Bilirubin Urine Urobilinogen Ur Leukocyte Esterase Urine RBC Urine WBC Ur Squamous Epith Cells Urine Bacteria Hyaline Casts Urine Mucus Blood Type Antibody Screen Crossmatch Radiography Diagnostic Testing: Clinical Impression(s) from Imaging Studies Chest X-Ray 06/06/25 03:10 IMPRESSION: No acute cardiopulmonary process. Incidentally noted acute left humerus neck fracture and humerus head fracture Reading Location: [place] [id number] Chest CTA 06/06/25 03:28 IMPRESSION: No evidence of pulmonary arterial thromboembolism. Bilateral pulmonary interstitial thickening with subpleural reticular densities, scattered patchy ground glass opacities and atelectatic plates. Finding are suggestive of interstitial lung disease, yet associated infection cannot be excluded. Advise clinical correlation. Mild diffuse esophageal wall thickening, possibly esophagitis. Reading Location: [place] [address] Abdomen/Pelvis CT 06/06/25 06:41 IMPRESSION: Scarring and/or atelectasis at the lung bases. Gallstones. A stone is seen in the neck of the gallbladder. Sigmoid diverticulosis. Splenomegaly. [facility] Discussion w/another healthcare provider: Hospitalist Treatment and Re-Evaluation :: Care of the patient was turned over to me pending CT scan of the abdomen pelvis. CT scan of the abdomen pelvis was reviewed. There is no acute process noted. There is no intraperitoneal or retroperitoneal bleeding noted. There is cholelithiasis noted but there is no evidence of cholecystitis. There is diverticulosis noted but there is no evidence of diverticulitis. There is splenomegaly noted. This was interpreted by the radiologist and was also independently reviewed by myself. Case was discussed with the hospitalist. He will admit the patient to his service. Patient understood and was agreeable with the plan. All questions were answered. Discharge Plan Triage Chief Complaint: Syncope Other Complaint: Dizziness ED Provider: Rd Jennings Dx/Rx/DC Orders Clinical Impression: Syncope, Closed fracture of left proximal humerus, Anemia Prescriptions: No Action ezetimibe [Zetia] 10 mg tablet 10 mg PO QDAY glimepiride 4 mg tablet 4 mg PO QAM Rx Instructions: administer with breakfast levothyroxine [Synthroid] 25 MCG tablet 25 mcg PO DAILY cholecalciferol (vitamin D3) [Vitamin D3] 1,000 UNIT capsule 1,000 unit PO DAILY Fish Oil 500 MG capsule,delayed release(DR/EC) 500 mg PO DAILY Rybelsus 14 mg tablet 14 mg PO DAILY hydrocodone-acetaminophen 5-325 mg tablet 1 tab PO Q6H PRN PRN (Reason: Pain) 3 Days Qty: 10 0RF Primary Care Provider: Lani Alcazar Referrals: Lani Alcazar, BILLIARD PARLOR MANAGER-C [Primary Care Provider] - Print Language: Syriac Disposition Disposition: Acute Care Hospital [facility]
--- NOTE | 2025-06-06 09:09 | HP.PCM.HOS_ITS ---
HPI - General General Date of Service: 06/06/25 Chief Complaint: Syncope HPI Narrative KAREN VILLALOBOS, is a 79 F who presents with a syncopal episode. This is a 79-year-old female that tumbled down embankment and then broke her humerus back on May 31. Patient been at home attended to by family member and the patient has required assistance getting up. And in fact a couple days after she was seen here on the she had a syncopal episode where she was out for about 20 seconds and was groggy when she eventually came to. But earlier this morning, patient went to the bathroom and then just was very weak. Did not fall but was lowered to the ground and EMS was contacted. Patient was sent to the emergency room and she was noted to have hemoglobin of 7. Back in August (last time we have available labs) her hemoglobin was 13.6. The patient states that she follows her primary care doctor and was told that she was anemic at that time in October. Unclear what that number was. Patient had additional workup including a D-dimer. She did undergo a CTA of the chest that showed no PE. Because anemia and because of her fall a week prior, she did undergo a CT abdomen pelvis that did not show any retroperitoneal hematoma. Patient does endorse that she does take her medications in regards her pain twice daily and 1 is usually at night versus bed. She does have a lot of pain in her arm. She also endorses that she has not been eating or drinking much since this all transpired. [facility] Medical History History of breast cancer (~2018) Diabetes Home Medications ?Medication ?Instructions ?Recorded ?Last Taken ?Type cholecalciferol (vitamin D3) 25 1,000 unit PO DAILY DURANT PPLEMENT 10/03/18 Unknown History mcg (1,000 unit) capsule (Vitamin D3) levothyroxine 25 mcg tablet 25 mcg PO DAILY THYROID 04/18/19 History (Synthroid) omega 3-dha 60 mg-epa 90 mg-fish 500 mg PO DAILY SUPPL EMENT 10/03/18 Unknown History oil 500 mg capsule, delayed release (Fish Oil) semaglutide 14 mg tablet (Rybelsus) 14 mg PO DAILY Unknown History ezetimibe 10 mg tablet (Zetia) 10 mg PO QDAY 01/04/25 Unknown History glimepiride 4 mg tablet 4 mg PO QAM 01/04/25 Unknown History hydrocodone-acetaminophen 5-325mg 1 tab PO Q6H PRN PRN Pain 3 days 05/31/25 06/05/25 17:00 Rx 5mg-325mg #10 TABLETS Allergy/AdvReac Type Severity Reaction Status Date / Time latex Allergy Rash Verified 06/06/25 02:24 Penicillins (PCN) Allergy Rash Verified 06/06/25 02:24 Family History Other Asthma Breast cancer CAD (coronary artery disease) Diabetes Heart disease Hypertension Myocardial infarction Thyroid disorder Surgical History Hx of lumpectomy Social History household members: spouse housing: house Smoking Status: Never smoker ROS ROS Narrative All review of systems were negative except as mentioned above in the history of present illness and the other review of systems. Vital Signs Vital Signs Vital Signs: 06/06/25 02:24 06/06/25 02:30 06/06/25 04:30 Temperature 36.1 C L Temperature Source Temporal Pulse Rate 106 H 102 H Respiratory Rate 14 18 Respiratory Effort Normal Respiratory Pattern Normal Blood Pressure 114/47 L 96/67 Blood Pressure Mean 69 76 Blood Pressure Source Blood Pressure Position Blood Pressure Location Pulse Ox 96 94 Oxygen Delivery Method Room Air Room Air 06/06/25 06:00 06/06/25 06:27 06/06/25 07:26 Temperature 36.7 C 36.8 C Temperature Source Oral Pulse Rate 115 H 114 H 117 H Respiratory Rate 18 18 18 Respiratory Effort Respiratory Pattern Blood Pressure 95/59 L 132/57 H 135/65 H Blood Pressure Mean 71 82 88 Blood Pressure Source Monitor Blood Pressure Position Semi-Fowlers Blood Pressure Location Right Arm Pulse Ox 92 95 96 Oxygen Delivery Method Room Air Room Air 06/06/25 07:41 06/06/25 08:45 Temperature 36.7 C 37.1 C Temperature Source Oral Oral Pulse Rate 113 H 112 H Respiratory Rate 22 H Respiratory Effort Respiratory Pattern Blood Pressure 123/52 H 145/62 H Blood Pressure Mean 75 89 Blood Pressure Source Monitor Blood Pressure Position Semi-Fowlers Blood Pressure Location Right Arm Pulse Ox 97 97 Oxygen Delivery Method Room Air Room Air Physical Exam Const alert and no apparent distress HEENT HEENT Narrative: Patient has subconjunctival hemorrhage on the left eye. Does have ecchymosis surrounding her left eye and also on her left-sided neck below her mandible. Eyes Eyes Narrative: Left subconjunctival hemorrhage. Extraocular muscles are intact. Resp normal respiratory effort and no retractions Cardio regular rate, regular rhythm, S1 normal heart sound and S2 normal heart sound GI normal to inspection, nondistended, normoactive bowel sounds, soft to palpation, non-tender and non-distended Extremity normal to inspection and full ROM Extremity Narrative: Left arm in sling. Skin Skin Narrative: With fading ecchymosis of left upper extremity from shoulder down to mid humerus. Neuro Sensorium / Orientation: awake, alert, oriented to person, oriented to place and oriented to time Psych affect normal Results Lab / Micro Data Attestation: I reviewed the patient's lab results. 06/06/25 03:00 06/06/25 03:00 Labs: Laboratory Results - last 24 hr 06/06/25 03:00: WBC 7.4, RBC 2.69 L, Hgb 7.0 L, Hct 22.5 L, MCV 83.6, MCH 26.0 L , MCHC 31.1 L, RDW Std Deviation 48.2 H, RDW Coeff of Colten 15.9 H, Plt Count 65 L , MPV 11.6, D-Dimer Quant (PE/DVT) 3.09 H*, Sodium 135, Potassium 4.6, Chloride 104, Carbon Dioxide 19.9 L, Anion Gap 11, BUN 20 H, Creatinine 0.68 L, Est GFR (MDRD) Non-Af 88, BUN/Creatinine Ratio 29.0 H, Glucose 302 H, Calcium 8.5, Total Bilirubin 0.66, AST 36 H, ALT 24, Alkaline Phosphatase 81, Troponin T High Sens 8, NT pro BNP II 46, Total Protein 6.0, Albumin 3.2 L, Globulin 2.8, Albumin/Globulin Ratio 1.1 06/06/25 03:26: Urine Color Yellow, Urine Clarity Clear, Urine pH 6.0, Ur Specific [place] 1.020, Urine Protein 15 H, Urine Glucose (UA) 1000 H, Urine Ketones 15 H, Urine Occult Blood Negative, Urine Nitrite Negative, Urine Bilirubin Negative, Urine Urobilinogen Normal, Ur Leukocyte Esterase Negative, Urine RBC 0 SEEN, Urine WBC 0-5 SEEN, Ur Squamous Epith Cells 5-10 SEEN, Urine Bacteria RARE, Hyaline Casts 10-25 SEEN, Urine Mucus 0 SEEN 06/06/25 03:33: Blood Type O POSITIVE, Antibody Screen NEGATIVE, Crossmatch See Detail 06/06/25 04:53: Troponin T Hi Sens 2 Hr 7 06/06/25 06:49: Troponin T Hi Sens 4Hr 9 Imaging Radiology Impression Chest X-Ray 06/06/25 03:10 IMPRESSION: No acute cardiopulmonary process. Incidentally noted acute left humerus neck fracture and humerus head fracture Reading Location: [place] [id number] Chest CTA 06/06/25 03:28 IMPRESSION: No evidence of pulmonary arterial thromboembolism. Bilateral pulmonary interstitial thickening with subpleural reticular densities, scattered patchy ground glass opacities and atelectatic plates. Finding are suggestive of interstitial lung disease, yet associated infection cannot be excluded. Advise clinical correlation. Mild diffuse esophageal wall thickening, possibly esophagitis. [id number]Pelvis CT 06/06/25 06:41 IMPRESSION: Scarring and/or atelectasis at the lung bases. Gallstones. A stone is seen in the neck of the gallbladder. Sigmoid diverticulosis. Splenomegaly. Reading Location: [facility] Assessment & Plan Assessment/Plan (1) Syncope: PLAN: I suspect multifactorial vasovagal due to the, pain medications and then also component of micturition syncope. Will check an echocardiogram and monitor on telemetry. (2) Anemia: PLAN: Patient has lost control on the blood since August but some this may be more chronic than acute. Clinically she does not have anything to substantiate such a massive blood loss in her face nor her arm and nothing else visualized on any CT imaging of her chest nor abdomen. Patient reported that she was becoming anemic in October by some lab reports. Will check iron, total iron-binding capacity, ferritin, B12, folate and TSH. Additionally check Hemoccult. Patient ordered blood in the emergency room. Which she is currently receiving. Will monitor for now. (3) Left humeral fracture: PLAN: Subsequent visits. Initial injury was May 31. Patient be nonweightbearing of the left upper extremity Discussed with Dr. Montilla, to whom she was supposed to see in the office today. He recommended outpatient follow-up and would anticipate just conservative management moving forward. Will check a 25-hydroxy vitamin D level. (4) Debility: PLAN: Progressive since her fall and humerus fracture. PT OT evaluate and treat. Discussed with the patient's for member at bedside. That I would anticipate that she would likely require [facility] facility as she was requiring much assistance at home but we would need to formally evaluate with therapy evaluations. PLAN: Plan Diabetes mellitus type 2: Continue with semaglutide. Sliding scale insulin. Hypothyroidism: Continue levothyroxine VTE prophylaxis with SCDs. CODE STATUS: Addressed with the patient. Patient wishes to be DNR Comfort Care arrest. Patient advised that she could change her mind anytime if she wishes but to inform us if she has. Charges/Coding Visit Charges Inpatient E&M: 95647 Init Hosp L3
--- NOTE | 2025-06-06 11:12 | ECHOCS_ITS ---
Reason For Study : Syncope Procedure This was a 2D Doppler, Color Flow transthoracic echocardiogram. The study was technically difficult. Contrast injection was performed. Exam performed portable in ICU/CCU. Left Ventricle Normal LV size. Left ventricular systolic function is normal. The left ventricular ejection fraction is 60 %. No regional wall motion abnormalities noted. Right Ventricle Normal RV size. Normal systolic function. Mitral Valve There is mild to moderate mitral annular calcification. Tricuspid Valve Normal tricuspid valve. Aortic Valve Trisinus/trileaflet aortic valve. Moderate focal aortic valve calcification. Peak aortic valve gradient 40 mmHg. Mean aortic valve gradient 17 mmHg. Moderate aortic stenosis. Pulmonic Valve Normal pulmonic valve. Great Vessels Normal aortic root. The pulmonary artery is normal size. Inferior vena cava collapse with respiration. Pericardium/Pleural No pericardial effusion. Medication Diluted definity 1ml given slow IV push to enhance endocardial definition. MMode/2D Measurements & Calculations LVIDd: 4.1 cm IVSd: 1.3 cm LVOT diam: 1.8 cm LVIDs: 2.0 cm LVPWd: 0.90 cm LVOT area: 2.6 cm2 RVDd: 3.6 cm FS: 51.6 % Ao root diam: 2.8 cm LAV(MOD-bp): 55.2 ml RVOT diam: 1.9 cm LAV(MOD-bp) Indexed: 32.5 ml/m2 LAV(MOD-sp2): 55.6 ml LAV(MOD-sp4): 47.9 ml SV(MOD-sp4): 72.7 ml SV(sp4-el): 78.4 ml LVAd ap4: 29.7 cm2 LVLd ap4: 7.6 cm SI(MOD-sp4): 42.8 ml/m2 EDV(MOD-sp4): 92.3 ml EDV(sp4-el): 98.2 ml LVAs ap4: 11.6 cm2 LVLs ap4: 5.7 cm ESV(MOD-sp4): 19.6 ml ESV(sp4-el): 19.8 ml EF(MOD-sp4): 78.7 % EF(sp4-el): 79.8 % Aortic Valve Planimetry: 0.84 cm2 LA A4 area: 18.4 cm2 LA dimension(2D): 4.2 cm TAPSE: 2.4 cm RA A4 area: 12.9 cm2 Time Measurements MV dec time: 0.18 sec Doppler Measurements & Calculations MV E max gunnar: 134.1 cm/sec Lat Peak E' Gunnar: 9.6 cm/sec Med Peak E' Gunnar: 10.1 cm/sec MV A max gunnar: 141.9 cm/sec E/E' lat: 14.0 E/E' med: 13.3 MV E/A: 0.95 MV V2 max: 150.0 cm/sec MV P1/2t max gunnar: 142.0 cm/sec Ao V2 max: 317.2 cm/sec MV max P.0 mmHg MV P1/2t: 60.2 msec Ao max P.3 mmHg MV V2 mean: 98.3 cm/sec MV dec slope: 691.2 cm/sec2 Ao V2 mean: 185.6 cm/sec MV mean P.6 mmHg Ao mean P.4 mmHg MV V2 VTI: 31.1 cm MVA(P1/2t): 3.7 cm2 Ao V2 VTI: 67.0 cm MVA(VTI): 2.5 cm2 AV (velocity ratio): 0.44 MARLIN(I,D): 1.2 cm2 MARLIN(V,D): 1.1 cm2 LV V1 max: 136.5 cm/sec SV(LVOT): 77.3 ml PA V2 max: 207.9 cm/sec LV V1 max P.5 mmHg PA V2 mean: 134.3 cm/sec LV V1 mean P.7 mmHg PA mean PG (full): 6.0 mmHg LV V1 mean: 102.7 cm/sec LV V1 VTI: 29.8 cm SV(RVOT): 57.1 ml Qp/Qs: 1.0/1.4 ECHO/Echo Complete W/ Contrast Interpretation Summary Normal LV size. Left ventricular systolic function is normal. The left ventricular ejection fraction is 60 %. Moderate focal aortic valve calcification. Moderate aortic stenosis. There is mild to moderate mitral annular calcification. Contrast injection was performed. Ordering Physician: Kelvin Stein Performed By: Aj Warren RCS
[2025-06-06 11:20] LABS: Ferritin 31 ng/mL (22-378)
[2025-06-06] MEDS: Cholecalciferol (VIT D3) 25 MCG TABLET (1,000 UNITS) PO (12:37)
[2025-06-06] MEDS: Lidocaine 5% Patch 1 PATCH TOPICAL (12:58)
[2025-06-06 15:18] LABS: Iron 100 ug/dL (50-170); Iron Binding Capacity,Total 304 ug/dL (250-450); Iron Binding Capacity,Unsat 204 ug/dL (228-428)
[2025-06-06] MEDS: 0.9% Saline Lock 10 ML Syringe IV (20:05)
[2025-06-06 22:37] LABS: Vitamin B12 622 pg/mL (180-914); Vitamin D,25 Hydroxy 27.5 ng/mL (30-100)
[2025-06-07 01:00] VITALS: PULSE 79
[2025-06-07 02:00] VITALS: BP 131/57; PULSE 75; RESP 17; TEMP 36.2; O2SAT 100
--- OUTSIDE RECORDS SUMMARY | 2025-06-07 03:32 | XMS RPT_ITS | CCD ---
Author Organization [facility] [place] [facility] Team Providers Care Nail Galvanizer Name Role Phone WALDEMAR ROSA Unavailable Unavailable WALDEMAR ROSA Unavailable Unavailable CiMarcia chapin E Unavailable Waldemar Rosa Unavailable Zee Rivas Unavailable Myra Fowler Unavailable Unavailable Haseeb Sherwood Unavailable Unavailable Unavailable Unavailable Aaron Carmen Unavailable Waldemar Rosa Unavailable [facility] Unavailable Zee Rivas Unavailable Manchak, Federica Unavailable Unavailable Haseeb Sherwood Unavailable Unavailable Unavailable Unavailable Kathleen Miller Unavailable Keeley Saini Unavailable [facility] Unavailable Haseeb Sherwood Unavailable Unavailable Haseeb Brizuela Unavailable Unavailable Madelin Fiore Unavailable Unavailable Manchak, Federica Unavailable Unavailable Fast, Arelis A Unavailable Nellie Knox Unavailable Unavailable Cidari BRICEÑO Carmen Unavailable Kathleen Miller Unavailable Dr. Waldemar Rosa Unavailable Keeley Saini Unavailable [facility] Unavailable Zee Rivas MD Unavailable Manchak BIOMETRICS TECHNICIAN, Federica Unavailable Unavailable Fast DO, Arelis A Unavailable Haseeb Brizuela LPN Unavailable Unavailable Nellie Knox LPN Unavailable Unavailable Unavailable Unavailable Slarb HAND STRIPER, Latrice Unavailable Unavailable Presley HAND STRIPER, Haseeb Unavailable Unavailable Adebayo HAND STRIPER, Madelin Unavailable Unavailable Aaron Marcia Unavailable Ottoniel ASSET MANAGEMENT ANALYST, Karen Unavailable Ottoniel ASSET MANAGEMENT ANALYST, Karen Unavailable Aaron Marcia Unavailable Daphne BIOMETRICS TECHNICIAN, Kayela Unavailable Unavailable Ottoniel ASSET MANAGEMENT ANALYST, Karen Unavailable Ottoniel ASSET MANAGEMENT ANALYST, Karen Unavailable Ottoniel ASSET MANAGEMENT ANALYST, Karen Unavailable Kathleen Miller Unavailable Dr. Waldemar Rosa Unavailable Keeley Saini Unavailable [facility] Unavailable Rob CLEMONS, Zee Flores Unavailable Slarb HAND STRIPER, Latrice Unavailable Unavailable Lisette HAND STRIPER, Nellie Unavailable Unavailable Juanis BIOMETRICS TECHNICIAN, Federica Unavailable Unavailable Gelacio HAND STRIPER, Haseeb Unavailable Unavailable Unavailable Unavailable Ottoniel ASSET MANAGEMENT ANALYST, Karen Attending Unavailable Ottoniel ASSET MANAGEMENT ANALYST, Karen Consulting Unavailable Ottoniel ASSET MANAGEMENT ANALYST, Karen Referring Unavailable Aram, Robert Unavailable Unavailable Flavia Coleman MA Unavailable Unavailable Renata Mei DO Primary Care Provider Renetta Najera Unavailable Patel CLEMONS, Annika Unavailable Ottoniel TELEGRAPH AND TELETYPE OPERATOR-CKaren Primary Care Provider Dr. Kelvin Butt DO Emergency Provider [phone] Ottoniel, Karen Primary Care Unavailable Ottoniel, Karen Referring Unavailable Ottoniel, Karen Attending Unavailable Ottoniel, Karen Primary Care Unavailable Ottoniel, Karen Referring Unavailable Ottoniel, Karen Attending Unavailable Ottoniel, Karen Referring Unavailable Ottoniel, Karen Primary Care Unavailable Caren Rosario Attending Unavailable Kelvin Ayala Attending Unavailable Ottoniel, Karen Primary Care Unavailable Ottoniel, Karen Referring Unavailable Ottoniel, Karen Attending Unavailable Ottoniel, Karen Primary Care Unavailable Ottoniel, Karen Referring Unavailable Ottoniel, Karen Primary Care Unavailable Kelvin Butt Attending Unavailable Lyle Guerrero Attending Unavailable Karen Alcazar Primary Care Unavailable Karen Alcazar Primary Care Unavailable Karen Alcazar Referring Unavailable Karen Alcazar Attending Unavailable Allergies Allergy Classification Reported Allergen(s) Allergy Type Date of Onset Reaction(s) Facility Penicillins (antibiotic) (7 sources) Penicillins; Translations: [Penicillins] Drug Allergy [facility] Work Phone: Comment on above: rash (20 sources) Penicillins; Translations: [Penicillins] allergy to substance 6 Hives [facility] Work Phone: Comment on above: rash (3 sources) Latex Allergy to substance 9 Rash [facility] (1 source) Latex Drug allergy (disorder) 5 [facility] Repository NEGATED: Highlighted row has been ruled out! (1 source) drug allergy 7 [facility] Work Phone: NEGATED: Highlighted row has been ruled out! (1 source) Allergy to drug (finding) [facility]; [facility] Work Phone: NEGATED: Highlighted row has been ruled out! (1 source) Allergy to drug (finding) [facility]; [facility] Work Phone: NEGATED: Highlighted row has been ruled out! (1 source) Allergy to drug (finding) [facility]; [facility] Work Phone: NEGATED: Highlighted row has been ruled out! (1 source) Allergy to drug (finding) [facility]; [facility] Work Phone: NEGATED: Highlighted row has been ruled out! (1 source) Allergy to drug (finding) [facility]; [facility] Work Phone: NEGATED: Highlighted row has been ruled out! (1 source) Allergy to drug (finding) [facility]; [facility] Work Phone: NEGATED: Highlighted row has been ruled out! (1 source) Allergy to drug (finding) [facility]; [facility] Work Phone: NEGATED: Highlighted row has been ruled out! (1 source) Allergy to drug (finding) [facility]; [facility] Work Phone: NEGATED: Highlighted row has been ruled out! (1 source) Allergy to drug (finding) [facility]; [facility] Work Phone: NEGATED: Highlighted row has been ruled out! (1 source) Allergy to drug (finding) [facility]; [facility] Work Phone: NEGATED: Highlighted row has been ruled out! (1 source) Allergy to drug (finding) [facility]; [facility] Work Phone: NEGATED: Highlighted row has been ruled out! (1 source) Allergy to drug (finding) [facility]; [facility] Work Phone: NEGATED: Highlighted row has been ruled out! (1 source) Allergy to drug (finding) [facility]; [facility] Work Phone: NEGATED: Highlighted row has been ruled out! (1 source) Allergy to drug (finding) [facility]; [facility] Work Phone: Medications Current Medications Medication Drug Class(es) Dates Sig (Normalized) Sig (Original) acetaminophen 325 mg / HYDROcodone bitartrate 5 mg oral tablet (4 sources) Opioid Agonist Start: 05-31-2025 take 1 tablet by mouth every six hours as needed for pain Hydrocodone-Aceta minophen 5-325 mg tablet Active 1 {tbl} PO EVERY 6 HOURS NEEDED as needed for Pain 10 3 0 May 31, 2025 Closed fracture of left proximal humerus Start: 12-05-2018 End: 12-08-2018 Hydrocodone-Acetaminophen 1 TABLET tablet Discontinued 1 {tbl} PO EVERY 8 HOURS NEEDED as needed for Pain 10 3 0 December 05, 2018 2:23pm December 07, 2018 1:00am December 08, 2018 1:06am Start: 12-05-2018 End: 12-08-2018 take 1 tablet by mouth every eight hours as needed Hydrocodone-Acetaminophen Discontinued 1 TABLET PO EVERY 8 HOURS NEEDED 10 3 December 05, 2018 2:23pm December 08, 2018 1:06am ibuprofen 200 mg oral tablet (1 source) Nonsteroidal Anti-inflammatory Drug ibuprofen (MOTRIN ) 200 mg tablet Take 200 mg by mouth as needed. Active [place] 1-Vah-Uru-Fish Oil (Fish Oil) 500 MG capsule,delayed release(DR/EC) (2 sources) Start: 10-03-20 take 1 capsule by mouth once daily [place] 5-Pau-Mmk-Fish Oil (Fish Oil) 500 MG capsule,delayed release(DR/EC) Active 500 mg PO DAILY October 03, 2018 1:00am SUPPLEMENT Start: 10-03-2018 take 1 capsule by mo [facility] once daily [place] 8-Qvl-Vzq-Fish Oil (Fish Oil) 500 MG capsule,delayed release(DR/EC) Active 500 MG PO DAILY October 03, 2018 1:00am [place] 9-Skr-Kod-Fish Oil (Fish Oil) 500 MG Capsule.Dr (1 source) Start: 10-03-2018 take 1 capsule by mouth once daily [place] 0-Omt-Sco-Fish Oil (Fish Oil) 500 MG Capsule.Dr Active 500 MG PO DAILY October 03, 2018 1:00am Semaglutide (Semaglutide 14 Mg Tablet) 14 mg tablet (1 source) Start: 09-25-2024 Semaglutide (Semaglutide 14 Mg Tablet) 14 mg tablet Active 14 mg PO September 25, 2024 12:00am levothyroxine sodium 0.025 mg oral tablet (20 sources) l-Thyrox ine Start: 10-03-2018 take 1 tablet by mouth once daily Levothyroxine (Synthroid) 25 MCG tablet Active 25 ug PO DAILY October 03, 2018 1:00am THYROID Start: 09-26-2018 [facility] 25 MCG Oral Tablet 1 (one) Tablet daily for 0 days Quantity: 30 {Tablet} Refills: 3 Ordered: 26-Sep-2018 Renata Mei DO Start : 26-Sep-2018 Active Comments: generic ok Start: 08-28-2013 End: 09-30-2016 levothyroxine (S YNTHROID) 25 mcg tablet Take one tablet by mouth once daily except two tablets on Wed & Wed. Active Comment on above: generic ok Dispense as wrttten No generics Completed/Discontinued Medications Medication Drug Class(es) Dates Sig (Normalized) Sig (Original) anastrozole 1 mg oral tablet (4 sources) Aromatase Inhibitor Start: 03-07-2019 End: 01-04-2025 take 1 tablet by mouth once daily Anastrozole 1 MG tablet Discontinued 1 mg PO DAILY March 07, 2019 12:00am January 04, 2025 10:50am ascorbic acid 60 mg / beta carotene 5000 unt / copper sulfate 40 mg / dl-alpha tocopheryl acetate 30 unt / sodium selenite 0.04 mg / zinc oxide 40 mg oral tablet (9 sources) Vitamin C Start: 09-30-2016 End: 06-27-2018 take 1 tablet by mouth once daily Multivitamin Adult Oral Tablet 1 (one) Tablet Tablet daily for 0 days Quantity: 30 {Tablet} Refills: 0 Ordered: 27-Jun-2018 Heidy Camacho RN Start : 30-Sep-2016 End : 27-Jun-2018 Inactive azithromycin 250 mg oral tablet (20 sources) Macrolide Antimicrobial Start: 08-12-2022 End: 09-21-2022 Start: 08-12-2022 End: 09-21-2022 Zithromax Z-Vladimir 250 MG Oral Tablet 1 (one) Tablet TAD for 0 days Quantity: 6 {Tablet} Refills: 0 Ordered: 21-Sep-2022 Latrice Levy LPN Start : 12-Aug-2022 End : 21-Sep-2022 Inactive Comments: 500mg x1 then 250mg x4 days Start: 02-21-2020 End: 05-21-2020 Zithromax Z-Vladimir 250 MG Oral Tablet 1 (one) Tablet TAD for 0 days Quantity: 1 {Package} Refills: 0 Ordered: 21-May-2020 Haseeb Brizuela LPN Start : 21-Feb-2020 End : 21-May-2020 Inactive Comment on above: 500mg x1 then 250mg x4 days cholecalciferol 0.05 mg oral capsule (20 sources) Vitamin D Start: 10-03-20 take 1 capsule by mouth once daily Cholecalciferol (Vitamin D3) (Vitamin D3) 1,000 UNIT capsule Active 1000 U PO DAILY October 03, 2018 1:00am SUPPLEMENT Start: 03-15-2018 Start: 10-13-2016 End: 12-06-2017 Start: 10-13-2016 End: 12-06-2017 take 1 capsule by mouth once daily Vitamin D3 06378 UNIT Oral Capsule 1 (one) Capsule Capsule daily for 0 days Quantity: 30 {Capsule} Refills: 0 Ordered: 06-Dec-2017 Marcia Walker Start : 13-Oct-2016 End : 06-Dec-2017 Inactive clarithromycin 500 mg oral t ablet (20 sources) Macrolide Antimicrobial Start: 03-28-2021 End: 04-11-2021 Start: 02-24-2021 End: 03-10-2021 take 1 tablet by mouth twice daily at mealtime Clarithromycin 500 MG Oral Tablet 1 (one) Tablet PO BID for 14 days Quantity: 28 {Tablet} Refills: 0 Ordered: 24-Feb-2021 Arelis Chiu DO Start : 24-Feb-2021 End : 10-Mar-2021 Inactive Comments: Take with food Start: 12-14-2019 End: 12-28-2019 take 1 tablet by mouth twice daily at mealtime Clarithromycin 500 MG Oral Tablet 1 (one) Tablet PO BID for 14 days Quantity: 28 {Tablet} Refills: 0 Ordered: 14-Dec-2019 Veronique Richmond Start : 14-Dec-2019 End : 28-Dec-2019 Inactive Comments: Take with food Start: 11-30-2017 End: 12-06-2017 Comment on above: Take with food 24 hr cyclobenzaprine hydrochloride 30 mg extended release oral capsule (20 sources) Muscle Relaxant Start: 10-18-2009 End: 03-07-2012 diphenhydrAMINE hydrochlorid e 25 mg oral tablet (20 sources) Histamine-1 Receptor Antagonist Start: 04-29-2010 End: 05-06-2010 doxycycline hyclate 100 mg o ral capsule (16 sources) Tetracycline-class Drug Start: 07-07-2022 End: 07-12-2022 Comment on above: URI ergocalciferol 1.25 mg oral capsule (20 sources) Provitamin D2 Compound Start: 01-19-2023 Start: 12-06-2017 End: 06-27-2018 Start: 12-06-2017 End: 06-27-2018 Ergocalciferol 66302 UNIT Or al Capsule 1 Capsule twice weekly x 3 months for 0 days Quantity: 24 {Capsule} Refills: 0 Ordered: 27-Jun-2018 Heidy Camacho RN Start : 06-Dec-2017 End : 27-Jun-2018 Inactive ezetimibe 10 mg oral tablet (20 sources) Dietary Cholesterol Absorption Inhibitor Start: 01-04-2025 take 1 tablet by mouth once daily Ezetimibe (Zetia) 10 mg tablet Discontinued 10 mg PO daily January 04, 2025 1:00am Start: 11-30-2022 Start: 04-09-2022 Start: 03-19-2021 take 1 tablet by ronnie th once daily at bedtime Zetia 10 MG Oral Tablet 1 (one) Tablet qhs for 0 days Quantity: 90 {Tablet} Refills: 4 Ordered: 19-Mar-2021 Ruth Anguiano MA Start : 19-Mar-2021 Active Comment on above: Mail order. famotidine 20 mg oral tablet (20 sources) Histamine-2 Receptor Antagonist Start: 04-29-20 End: 05-06-20 glimepiride 4 mg oral tablet (6 sources) Sulfonylurea Start: 01-04-20 take 1 tablet by mouth once daily at breakfast Glimepiride 4 mg tablet Discontinued 4 mg PO EVERY MORNING January 04, 2025 1:00am administer with breakfast Start: 08-03-2023 take 1 tablet by mouth before breakfast Start: 07-20-2023 take 1 tablet by mouth before breakfast lidocaine 0.05 mg/mg medicated patch (1 source) Antiarrhythmic, Amide Local Anesthetic Start: 09-25-2024 End: 01-04-2025 Lidocaine (Lidoderm) 5 % adhesive patch,medicated Discontinued 1 NMA TOPICAL DAILY as needed for pain 15 0 September 25, 2024 2:36pm January 04, 2025 10:51am leave on most painful area for up to 12 hrs 3 ml liraglutide 6 mg/ml pen injector (20 sources) GLP-1 Receptor Agonist Start: 09-22-2022 End: 10-12-2022 Start: 10-07-2020 End: 03-19-2021 inject 1.2 mg by subcutaneous injection once daily, then inject 1.8 mg by subcutaneous injection once daily Victoza 18 MG/3ML Subcutaneous Solution Pen-injector 1 (one) Soln Pen-inj TAD for 90 days Quantity: 3 {Box} Refills: 3 Ordered: 19-Mar-2021 Marcia Walker Start : 07-Oct-2020 End : 19-Mar-2021 Inactive Comments: Take 1.2mg SC daily x 1 week then increase to 1.8mg daily Start: 09-04-2020 inject 1.2 mg by sub cutaneous injection once daily, then inject 1.8 mg by subcutaneous injection once daily Victoza 18 MG/3ML Subcutaneous Solution Pen-injector 1 (one) Soln Pen-inj TAD for 90 days Quantity: 3 {Box} Refills: 3 Ordered: 04-Sep-2020 Marcia Walker CNP, CNP, Mary E Start : 04-Sep-2020 Active Comments: Take 1.2mg SC daily x 1 week then increase to 1.8mg daily Start: 08-22-2019 inject 1.2 mg by sub cutaneous injection once daily, then inject 1.8 mg by subcutaneous injection once daily Victoza 18 MG/3ML Subcutaneous Solution Pen-injector 1 (one) Soln Pen-inj TAD for 90 days Quantity: 3 {Box} Refills: 3 Ordered: 22-Aug-2019 Marcia Walker CNP, CNP, Mary E Start : 22-Aug-2019 Active Comments: Take 1.2mg SC daily x 1 week then increase to 1.8mg daily Start: 01-19-2019 inject 1.2 mg by sub cutaneous injection once daily, then inject 1.8 mg by subcutaneous injection once daily Victoza 18 MG/3ML Subcutaneous Solution Pen-injector 1 (one) Soln Pen-inj TAD for 90 days Quantity: 3 {Box} Refills: 3 Ordered: 13-Mar-2019 Marcia Walker CNP, CNP, Mary E Start : 13-Mar-2019 Active Comments: Take 1.2mg SC daily x 1 week then increase to 1.8mg daily Start: 12-08-2018 Victoza 18 MG/ 3ML Subcutaneous Solution Pen-injector 1 (one) Soln Pen-inj 0.6mg SC once daily for 90 days Quantity: 3 {Box} Refills: 3 Ordered: 08-Dec-2018 Marcia Walker CNP, CNP, Mary E Start : 08-Dec-2018 Active Start: 10-03-2018 End: 01-04-2025 inject 0.6 mg by subcutaneous injection once daily Liraglutide (Victoza) 0.6 MG/0.1 ML pen injector Discontinued 0.6 mg SQ DAILY October 03, 2018 1:00am January 04, 2025 10:51am DIABETIC Start: 06-14-2018 Victoza 18 MG/ 3ML Subcutaneous Solution Pen-injector 1 (one) Yusef Pen-inj 0.6mg SC once daily for 0 days Quantity: 2 {Box} Refills: 3 Ordered: 14-Jun-2018 Aaron BRICEÑO Marcia Orona Aaron BRICEÑO Marcia Orona Start : 14-Jun-2018 Active Comment on above: Take 1.2mg SC daily x 1 week then increase to 1.8mg daily lisinopril 5 mg oral tablet (20 sources) Angiotensin Converting Enzyme Inhibitor Start: 12-09-2016 End: 08-10-2017 Start: 12-09-2016 End: 08-10-2017 take 0.5 tablet by mouth once daily Lisinopril 5 MG Oral Tablet 1/2 Tablet Tablet daily for 0 days Quantity: 30 {Tablet} Refills: 1 Ordered: 10-Aug-2017 Latrice Levy LPN Start : 09-Dec-2016 End : 10-Aug-2017 Discontinued Comments: start to take 2 weeks before January Comment on above: start to take 2 week s before January meloxicam 7.5 mg oral tablet (1 source) Nonsteroidal Anti-inflammatory Drug Start: 09-25-20 24 End: 01-04-20 take 1 tablet by mouth once daily at mealtime Meloxicam 7.5 mg tablet Discontinued 7.5 mg PO DAILY September 25, 2024 12:00am January 04, 2025 10:51am take with food 24 hr metFORMIN hydrochloride 500 mg extended release oral tablet (20 sources) Biguanide Start: 05-14-20 22 End: 01-19-20 23 Start: 02-27-2022 take 1 tablet by ronnie th twice daily metFORMIN HCl ER 500 MG Oral Tablet Extended Release 24 Hour 1 Tablet bid for 90 days Quantity: 180 {Tablet} Refills: 3 Ordered: 27-Feb-2022 Aaron Marcia Aaron Marcia Start : 27-Feb-2022 Active Start: 04-30-2021 take 1 tablet by ronnie th twice daily metFORMIN HCl ER 500 MG Oral Tablet Extended Release 24 Hour 1 Tablet bid for 90 days Quantity: 180 {Tablet} Refills: 3 Ordered: 30-Apr-2021 Aaron BRICEÑO Marcia Mccauley CNP Start : 30-Apr-2021 Active Start: 11-12-2020 take 1 tablet by ronnie th twice daily metFORMIN HCl ER 500 MG Oral Tablet Extended Release 24 Hour 1 Tablet bid for 90 days Quantity: 180 {Tablet} Refills: 3 Ordered: 12-Nov-2020 Aaron BRICEÑO Marcia Mccauley CNP Start : 12-Nov-2020 Active Start: 04-08-2020 take 1 tablet by ronnie th twice daily metFORMIN HCl ER 500 MG Oral Tablet Extended Release 24 Hour 1 Tablet bid for 90 days Quantity: 180 {Tablet} Refills: 3 Ordered: 08-Apr-2020 Aaron BRICEÑO Marcia Mccauley CNP Start : 08-Apr-2020 Active Start: 07-16-2019 take 1 tablet by ronnie th twice daily metFORMIN HCl ER 500 MG Oral Tablet Extended Release 24 Hour 1 Tablet bid for 30 days Quantity: 60 {Tablet} Refills: 3 Ordered: 16-Jul-2019 Aaron BRICEÑO Marcia Mccauley CNP Start : 16-Jul-2019 Active Start: 10-05-2018 take 1 tablet by ronnie th twice daily MetFORMIN HCl ER 500 MG Oral Tablet Extended Release 24 Hour 1 Tablet bid for 30 days Quantity: 60 {Tablet} Refills: 3 Ordered: 05-Oct-2018 Aaron BRICEÑO Marcia Mccauley CNP Start : 05-Oct-2018 Active Start: 10-03-2018 End: 01-04-2025 take 1 tablet by mouth twice daily Metformin 500 MG tablet,ER halle.retention 24 hr Discontinued 500 mg PO TWICE A DAY October 03, 2018 1:00am January 04, 2025 10:51am DIABETES Start: 03-15-2018 End: 03-15-2018 Start: 03-15-2018 take 1 tablet by ronnie th twice daily MetFORMIN HCl ER 500 MG Oral Tablet Extended Release 24 Hour 1 (one) Tablet Tablet bid for 30 days Quantity: 60 {Tablet} Refills: 3 Ordered: 15-Mar-2018 Haseeb Sherwood Start : 15-Mar-2018 Active Start: 10-13-2016 End: 03-15-2018 take 1 tablet by ronnie th twice daily metFORMIN ER (FORTAMET) 500 mg 24 hr tablet Take 500 mg by mouth twice daily. Active Multivitamin Adult (4 sources) Start: 09-30-2016 End: 06-27-2018 Start: 09-30-2016 End: 06-27-2018 take 1 tablet by mouth once daily Multivitamin Adult Oral Tablet 1 (one) Tablet Tablet daily for 0 days Quantity: 30 {Tablet} Refills: 0 Ordered: 27-Jun-2018 Heidy Camacho LPN Start : 30-Sep-2016 End : 27-Jun-2018 Inactive Multivitamin Adult Oral Tablet (20 sources) Start: 09-30-2016 End: 06-27-2018 take 1 tablet by mouth once daily Multivitamin Adult Oral Tablet 1 (one) Tablet Tablet daily for 0 days Quantity: 30 {Tablet} Refills: 0 Ordered: 27-Jun-2018 Heidy Camacho RN Start : 30-Sep-2016 End : 27-Jun-2018 Inactive Start: 09-30-2016 End: 06-27-2018 take 1 tablet by mouth once daily Multivitamin Adult Oral Tablet 1 (one) Tablet Tablet daily for 0 days Quantity: 30 {Tablet} Refills: 0 Ordered: 27-Jun-2018 Heidy Camacho LPN Start : 30-Sep-2016 End : 27-Jun-2018 Inactive naproxen 500 mg oral tablet (20 sources) Nonsteroidal Anti-inflammatory Drug Start: 10-18-2009 End: 03-07-2012 NovoFine (1 source) Start: 03-15-2018 NovoFine 32G X 6 MM Miscellaneous 1 (one) Misc once daily for 0 days Quantity: 1 {Box} Refills: 5 Ordered: 15-Mar-2018 Marcia Walker CNP, CNP, Marcia Orona Start : 15-Mar-2018 Active NovoFine Plus (12 sources) Start: 01-19-2019 nystatin 100 unt/mg topical powder (20 sources) Polyene Antifungal Start: 06-10-2020 End: 11-18-2021 Start: 06-10-2020 End: 11-18-2021 Nystop [id number] UNIT/GM Radio Control Crane Operator al Powder 1 Application bid for 0 days Quantity: 1 {Applicator} Refills: 1 Ordered: 18-Nov-2021 Latrice Levy LPN Start : 10-Jun-2020 End : 18-Nov-2021 Inactive omeprazole 20 mg delayed release oral tablet (20 sources) Proton Pump Inhibitor Start: 08-07-2013 End: 08-10-2017 One Daily Multivitamin (12 sources) Start: 09-30-2016 End: 06-27-2018 oxyCODONE hydrochloride 5 mg oral tablet (6 sources) Opioid Agonist Start: 12-05-2018 End: 12-08-2018 take 1 tablet by mouth every eight hours as needed for pain Oxycodone 5 MG tablet Discontinued 5 mg PO EVERY 8 HOURS NEEDED as needed for Mod-Severe Pain (4-10/10) 10 3 0 December 05, 2018 2:31pm December 07, 2018 1:00am December 08, 2018 1:06am Start: 10-10-2018 End: 10-15-2018 take 1 tablet by mouth every eight hours as needed for pain Oxycodone 5 MG tablet Discontinued 5 mg PO EVERY 8 HOURS NEEDED as needed for Mod-Severe Pain (4-1010) 15 5 0 October 10, 2018 5:29pm October 14, 2018 1:00am October 15, 2018 1:13am ReliOn Blood Glucose Test (3 sources) Start: 09-30-2016 Start: 09-30-2016 [facility]On Blood G lucose Test In Vitro Strip 1 (one) Strip Strip test 3 x daily for 0 days Quantity: 90 {Strip} Refills: 3 Ordered: 30-Sep-2016 Latrice Levy LPN Start : 30-Sep-2016 Active Relion Confirm (12 sources) Start: 09-30-2016 [facility]iOn Confirm Glucose Monit or (4 sources) Start: 09-30-2016 Start: 09-30-2016 [facility]On Confirm Glucose Monitor w/Device Kit 1 (one) Kit Kit as directed for 0 days Quantity: 1 Kit Refills: 0 Ordered: 30-Sep-2016 SlaLatrice pryor LPN Start : 30-Sep-2016 Active ReliOn Confirm Glucose Monit or w/Device Kit (20 sources) Start: 09-30-2016 ReliOn Confirm Glucose Monitor w/Device Kit 1 (one) Kit Kit as directed for 0 days Quantity: 1 Kit Refills: 0 Ordered: 30-Sep-2016 Cam ANTON Latrice Start : 30-Sep-2016 Active Relion Confirm-Micro (12 sources) Start: 09-30-2016 ReliOn Confirm/micro Test (3 sources) Start: 09-30-2016 Start: 09-30-2016 [facility]On Confirm /micro Test In Vitro Strip 1 (one) Strip Strip test three times daily for 0 days Quantity: 90 {Strip} Refills: 0 Ordered: 30-Sep-2016 Latrice Levy LPN Start : 30-Sep-2016 Active rosuvastatin calcium 5 mg or al tablet (20 sources) HMG-CoA Reductase Inhibitor Start: 02-16-2020 End: 03-19-2021 semaglutide 14 mg oral table t (20 sources) Start: 04-16-2023 Start: 01-05-2023 Start: 10-12-2022 Start: 07-07-2022 End: 09-22-2022 Start: 05-14-2022 take 1 tablet by ronnie th in the morning Rybelsus 14 MG Oral Tablet 1 (one) Tablet tad for 90 days Quantity: 90 {Tablet} Refills: 3 Ordered: 14-May-2022 Renata Mei DO Start : 14-May-2022 Active Comments: take on empty stomach first thing in am and wait 30 min before any other food, drink, or med Start: 02-27-2022 take 1 tablet by ronnie th in the morning Rybelsus 14 MG Oral Tablet 1 (one) Tablet tad for 90 days Quantity: 90 {Tablet} Refills: 3 Ordered: 27-Feb-2022 Dominiquedari Marcia Walker Marcia Start : 27-Feb-2022 Active Comments: take on empty stomach first thing in am and wait 30 min before any other food, drink, or med Start: 08-13-2021 End: 11-18-2021 Start: 08-13-2021 take 1 tablet by ronnie th in the morning Rybelsus 14 MG Oral Tablet 1 (one) Tablet tad for 0 days Quantity: 30 {Tablet} Refills: 6 Ordered: 13-Aug-2021 Latrice Levy LPN Start : 13-Aug-2021 Active Comments: take on empty stomach first thing in am and wait 30 min before any other food, drink, or med Start: 03-19-2021 End: 11-18-2021 Comment on above: take on empty stomac h first thing in am with 4oz of water take on empty stomac h first thing in am and wait 30 min before any other food, drink, or med Take when awake on e mpty stomach not more than 4oz of water. Wait 30min before anything else. vitamin e 180 mg oral tablet (20 sources) Start: 06-27-2018 Start: 06-27-2018 take 1 tablet by ronnie th once daily Vitamin E 400 UNIT Oral Tablet 1 (one) Tablet Tablet daily for 0 days Quantity: 30 {Tablet} Refills: 0 Ordered: 16-Sep-2018 Myra Fowler Start : 27-Jun-2018 Active take 1 capsule by mo [facility] once daily Vitamin E, dl, acetate, (VITAMIN E) 400 unit capsule Take 400 Units by mouth once daily. Active vitamin E mixed (12 sources) Start: 06-27-2018 Vitamin Pack (20 sources) Vitamin Pack Shanique ctive Comments: Cranberry, Vitamin d3, MV, [place] 3 fish oil, Coq10, Calcium Vitamin Pack Act michael Comments: Cranberry, Vitamin d3, MV, [place] 3 fish oil, Coq10, Calcium Comment on above: Cranberry, Vitamin d 3, MV, [place] 3 fish oil, Coq10, Calcium Problems Active Problems Problem Classification Problem Date Documented Date Episodic/Chronic Abdominal pain (20 sources) Abdominal pain, unspecified site; Translations: [Abdominal pain] Resolved: 7 12-06-2017 Episodic Administrative/socia l admission (1 source) Medical examinations/reports status; Translations: [Encounter for Medicare annual wellness exam] 09-16-2018 Episodic Cancer of breast (20 sources) Malignant tumor of breast ; Translations: [Primary malignant neoplasm of breast] Onset: 9 10-05-2018 Chronic Comment on above: invasice ductal CA t o have lumpectomy and axillar node on Oct 10, 2018 Rt and left getting radiation, and on anastrozole daily x 5 years (01-17 start date) invasive ductal CA h ad lumpectomy and axillar node on Oct 10, 2018, on anstrazole seeing Tamica Rt and left getting radiation, and on anastrozole daily x 5 years (01-17 start date)seejarrod [place] with Dr. Manuel johnson, no longer [facility] onc-mammo 05/19/22 stableRt and left getting radiation, and on anastrozole daily x 5 years (01-17 start date)seejarrod [place] with Dr. Jackson-dx 2018 Coagulation and hemorrhagic disorders (20 sources) Platelet count below reference range; Translations: [Temporary low platelet count] Onset: 4 03-19-2021 Chronic Comment on above: level 93 on 03-13-21, repeating level 93 on 03-13-21, repeat 119 in Oct 2021 unclear etiology-CBC with diff and peripheral smear prior to next OVlevel 93 03-13-21, 119 Oct 2021, January Conditions associated with dizziness or vertigo (20 sources) Vertigo; Translations: [Vertigo] 02-23-2020 Episodic Diabetes mellitus with complications (20 sources) Type II diabetes mellitus uncontrolled; Translations: [Diabetes mellitus without mention of complication, type II or unspecified type, uncontrolled] Resolved: 9 03-13-2019 Chronic Comment on above: on victoza and metfo rmin will repeat labs inMarch and urine Diabetes mellitus with complications (20 sources) Diabetes mellitus with complications Diabetes mellitus without complication (20 sources) Type 2 diabetes mellitus without complication; Translations: [Type 2 diabetes mellitus] Onset: 9 Resolved: 9 09-16-2018 Chronic Comment on above: vixtoza and metformi n , had switched to metformin ER 500mg bid, but pt only taking once daily ,told to look at bottle and take twice daily on victoza and metfo rmin will repeat labs inMarch and urine vixtoza and metformi n , had switched to metformin ER 500mg bid, but pt only taking once daily ,told to look at bottle and take twice daily, also increased dose of Victoza and pt now compliant with instructions, to discuss with Dr. Najera. vixtoza and metformi n , had switched to metformin ER 500mg bid, but pt only taking once daily ,told to look at bottle and take twice daily, also increased dose of Victoza and pt now compliant with instructions, switched to Rybelsus, which has drastically improved. metformin ER 500mg t old to look at bottle and take twice daily, and pt now compliant with instructions, switched to Rybelsus, says eating too much A1c 02/27/22= 8.2, up from 6.05 Nov 2021. -recheck A1c after 05/29/22 (too soon now)-continue rybelsus 14mg, metformin 500mg twice per day-encouraged diet and exercise, wt lossprior: metformin ER 500mg bid. switched to Rybelsus, says eating too much -continue rybelsus 1 4mg, metformin 500mg twice per day-encouraged diet and exercise, wt lossblood glucose ok, has uri and now on atb so watch sugarsprior: metformin ER 500mg bid. switched to Rybelsus, says eating too much--A1c 02/27/22= 8.2, up from 6.05 Nov 2021. -recheck A1c after 05/29/22 (too soon now) Diabetes mellitus without complication (20 sources) Prediabetes; Translations: [Pre-diabetes] Resolved: 7 08-10-2017 Episodic Comment on above: attended Jul class with perinatal educator, sign up for SEP 11 Disorders of lipid metabolism (20 sources) Hypercholesterolemia; Translations: [Hypercholesteremia] 09-16-2018 Chronic Comment on above: Fatty liver repeat L ipid in Sep unable to take stati n, will check b12 and add Coq 10, and rolaid 1 at night, then start in 2 weeks,every other night rosuvastatin repeat in 8 weeks no lipids since Oct 2021?-check Lipid profile prior to next OV-continue zetia-diet and exerciseunable to take statin, checked b12 and added Coq 10, rolaid 1 at night, then started every other night rosuvastatin E Codes: Fall (1 source) Fall; Translations: [Unspecified fall, initial encounter] 05-31-2025 Episodic Esophageal disorders (20 sources) Gastroesophageal reflux disease; Translations: [GERD (gastroesophageal reflux disease)] Resolved: 7 12-06-2017 Chronic Fracture of upper limb (2 sources) Closed fracture of upper end of humerus; Translations: [Unspecified fracture of upper end of left humerus, initial encounter for closed fracture] Onset: 5 05-31-2025 Episodic Genitourinary symptoms and ill-defined conditions (20 sources) Abnormal urine; Translations: [Microalbuminuria] Resolved: 2 12-06-2017 Episodic Comment on above: repeat in January reso lving Had D&C for endometr ial thickening by Dr. Urrutia March of 2019. Needs referral for follow up Headache, including migraine (20 sources) Headache; Translations: [Headache] Resolved: 8 12-06-2017 Episodic Heart valve disorders (20 sources) Heart murmur; Translations: [Heart murmur] 09-16-2018 Episodic Comment on above: stress test normal Immunizations and screening for infectious disease (20 sources) Need for prophylactic vaccination and inoculation against influenza; Translations: [Contact with and (suspected) exposure to other viral communicable diseases] Resolved: 2 08-09-2020 Episodic Mood disorders (20 sources) Depression; Translations: [Depressive disorder] 01-19-2019 Chronic Mood disorders (20 sources) Mood disorders Nonmalignant breast conditions (20 sources) Atypical lobular hyperplasia of breast; Translations: [Atypical lobular hyperplasia of right breast] 10-05-2018 Episodic Comment on above: To have lumpectomy a nd wide excision Oct 10 2018 Normal and/or delivery (20 sources) History of past delivery; Translations: [Vaginal delivery] 09-16-2018 Episodic Comment on above: Nutritional deficiencies (20 sources) Vitamin D deficiency; Translations: [Vitamin D deficiency] 09-16-2018 Chronic Comment on above: 26 goal is 50-60 Nutritional deficiencies (20 sources) Vitamin deficiency; Translations: [Vitamin deficiency] 09-16-2018 Episodic Occlusion or stenosis of precerebral arteries (1 source) Occlusion and stenosis of unspecified carotid artery; Translations: [Occlusion and stenosis of unspecified carotid artery] Onset: 4 Chronic Other acquired deformities (1 source) Kyphosis deformity of spine; Translations: [Unspecified kyphosis, site unspecified] 10-03-2024 Chronic Other circulatory disease (1 source) Disorder of carotid artery; Translations: [Disorder of arteries and arterioles, unspecified] 01-04-2025 Chronic Other circulatory disease (20 sources) H/O: heart disorder; Translations: [Heart Murmur] 09-16-2018 Episodic Other circulatory disease (20 sources) Cardiovascular symptoms; Translations: [Other symptoms involving cardiovascular system] Resolved: 7 12-06-2017 Episodic Other circulatory disease (20 sources) Facial sinus finding; Translations: [Sinus complaint] Resolved: 2 03-28-2021 Episodic Other connective tissue disease (20 sources) Spasm; Translations: [Muscle spasm] Resolved: 3 03-06-2013 Episodic Comment on above: low grade heat , mas sotherapy exercise to build up back for support and core Other hereditary and degenerative nervous system conditions (1 source) Degenerative disease of nervous system, unspecified; Translations: [Degenerative disease of nervous system, unspecified] Onset: 5 Chronic Other infections; including parasitic (20 sources) Personal history of other infectious and parasitic diseases; Translations: [History of COVID-19] 08-12-2022 Episodic Comment on above: via home test 08/01/22 . Tested neg 08/12/22. Other inflammatory condition of skin (20 sources) Itching ; Translations: [Itching] Resolved: 2 06-10-2020 Episodic Comment on above: monitor Other injuries and conditions due to external causes (1 source) Closed injury of head; Translations: [Unspecified injury of head, initial encounter] 05-31-2025 Episodic Other liver diseases (20 sources) Fatty liver; Translations: [Steatosis of liver] 09-16-2018 Chronic Comment on above: last alpha feto prot ein 08-15 AFP improved 3.7,now liver enzymes elevated, will remind to take Vit E repeat alpha feto prot in Aug, and enzymes, if elevated to GI last alpha feto prot ein 08-15 AFP improved 3.7,now liver enzymes elevated, will remind to take Vit E repeat alpha feto prot in Aug, and enzymes, if elevated to GI, repeat in 2020 Other liver diseases (20 sources) Abnormal levels of other serum enzymes; Translations: [Elevated liver enzymes level] 09-16-2018 Episodic Comment on above: awaiting abd ultraso und known fatty liver sl ight improvement follow q 3-6 months known fatty liver -check CMP prior to next OV-limit ETOH-weight lossknown fatty liver, had alpha feto protein 07/2017, on Vitamin E Other lower respiratory disease (20 sources) Dyspnea; Translations: [Dyspnea on exertion] Episodic Other lower respiratory disease (20 sources) Cough; Translations: [Cough] Resolved: 0 02-21-2020 Episodic Other lower respiratory disease (20 sources) Hemoptysis; Translations: [Hemoptysis] Resolved: 2 02-23-2020 Episodic Comment on above: Resolved,treated wit h z vladimir for presumed sinus thinks coming from back of throat not lungs, likely nose bleed Other nutritional; endocrine; and metabolic disorders (20 sources) Obesity; Translations: [Obesity] 09-16-2018 Chronic Other nutritional; endocrine; and metabolic disorders (20 sources) Body mass index 30+ - obesity; Translations: [BMI 33.0-33.9,adult] Resolved: 2 08-10-2017 Chronic Other screening for suspected conditions (not mental disorders or infectious disease) (20 sources) Endometrium thickened; Translations: [Endometrial thickening on ultrasound] 02-24-2021 Chronic Comment on above: Had D&C for endometr ial thickening by Dr. Urrutia March of 2019. Needs referral for follow up Other skin disorders (20 sources) Eruption; Translations: [Rash] Resolved: 2 06-10-2020 Episodic Comment on above: suspect fungal Other upper respiratory infections (20 sources) Chronic sinusitis, unspecified; Translations: [Bacterial sinusitis] Resolved: 8 12-06-2017 Chronic Comment on above: to have CT on 1 -saline nasal spray- mucinex prn-cetirizine (zyrtec) 5mg once per day to see if helps with histamine reactionto have CT on 03-20-21saw ENT, gave her prilosec - ineffective, no longer taking -saline nasal spray- mucinex prn-cetirizine (zyrtec) 5mg once per day to see if helps with histamine reaction-advised to use laura pot-do not think this is currently sinus infection but more so URI >10 daysCT sinuses 03-20-21 [place], gave her prilosec - ineffective, no longer taking -saline nasal spray- declines, says does not work. tried flonase as well-mucinex prn - not typically very effective but she can try if needed. also could do decongestant but again will likely not have much benefit-cetirizine (zyrtec) 5mg qd. try laura pot-if has further epistaxis, advised to see ENT again-zpak has shown some benefit in some studies but limited evidence post covid.-CT sinuses 03-20-21 completely normal. saw ENT, gave her prilosec - ineffective, no longer taking-we treated her for sinus infection with doxy 07/07/22.-epistaxis x2 over the last few weeks, took 1 hr to stop the bleeding. called ED and they gave advice. Other upper respiratory infections (20 sources) Acute sinusitis; Translations: [Acute sinusitis, unspecified] Resolved: 0 09-16-2018 Episodic Comment on above: tx w/ doxycycline, h as allergy to PCN>10 days, now green sputum in a.m., otherwise clear nasal drainage. cough/congestion Residual codes; unclassified (20 sources) Postmenopausal state; Translations: [Postmenopausal (Renamed from Postmenopausal status)] 10-05-2018 Episodic Residual codes; unclassified (20 sources) Family history of diabetes mellitus Episodic Residual codes; unclassified (20 sources) H/O: section; Translations: [ Section] 10-05-2018 Episodic Comment on above: 1978 Residual codes; unclassified (20 sources) Other general symptoms and signs; Translations: [Abnormal sensation] Resolved: 8 12-06-2017 Episodic Residual codes; unclassified (20 sources) H/O: surgery; Translations: [Tonsillectomy] 10-05-2018 Episodic Residual codes; unclassified (20 sources) Needs influenza immunization; Translations: [Need for prophylactic vaccination and inoculation against influenza] 10-05-2018 Episodic Residual codes; unclassified (20 sources) Non-smoker; Translations: [Nonsmoker] 02-24-2021 Episodic Skin and subcutaneous tissue infections (1 source) Paronychia; Translations: [Cellulitis and abscess of unspecified digit] 10-03-2024 Episodic Spondylosis; intervertebral disc disorders; other back problems (1 source) Spondylosis without myelopathy or radiculopathy, cervical region; Translations: [Osteoarthritis of cervical spine] 10-03-2024 Chronic Superficial injury; contusion (20 sources) Insect bite (nonvenomous) of unspecified upper arm, initial encounter; Translations: [Insect bite to arm - nonvenomous] Resolved: 3 01-09-2016 Episodic Thyroid disorders (20 sources) Hypothyroidism; Translations: [Hypothyroid] Onset: 9 09-16-2018 Chronic Comment on above: keep taking 25 ncg d aily and repeat in 3 months End of Aug change to 1 daily ex cept 2 on every wednesday repeat labs in 6 week change to 1 daily ex cept 2 on every wednesday and Wednesday repeat labs in 6 week Unclassified (20 sources) FH: Diabetes mellitus; Translations: [Postmenopausal state] Resolved: 09-16-2018 Episodic Comment on above: 4 nieces 1978 Unclassified (20 sources) Elevated liver enzymes Unclassified (20 sources) Nonsmoker; Translations: [Non-smoker] 09-16-2018 Unclassified (20 sources) BMI 34.0-34.9,adult Unclassified (20 sources) Family history of ovarian cancer Unclassified (20 sources) Postmenopausal (Renamed from Postmenopausal status) Unclassified (20 sources) Encounter for screening for malignant neoplasm of colon (Renamed from Special screening for malignant neoplasms, colon); Translations: [Screening status] 09-16-2018 Unclassified (20 sources) Unclassified (20 sources) BMI 35.0-35.9,adult Unclassified (20 sources) Neck stiffness Unclassified (20 sources) BMI 33.0-33.9,adult Unclassified (20 sources) Encounter for screening mammogram for breast cancer (Renamed from Encounter for screening mammogram for malignant neoplasm of breast) Unclassified (20 sources) Hypercholesteremia Unclassified (20 sources) Hypercholesteremia (272.0) Unclassified (20 sources) Carotid Bruits (785.9) Unclassified (20 sources) Atypical lobular hyperplasia of right breast Unclassified (20 sources) Endometrial thickening on ultrasound Unclassified (20 sources) Rash Unclassified (20 sources) Diabetes mellitus type II, controlled, with no complications (Renamed from Controlled type 2 diabetes mellitus without complication) Unclassified (20 sources) Temporary low platelet count Past or Other Problems Problem Classification Problem Date Documented Date Episodic/Chronic Bacterial infection; unspecified site (1 source) Bacterial upper respiratory infection; Translations: [Sinusitis, bacterial] Resolved: 12-06-2017 12-06-2017 Episodic Conditions associated with dizziness or vertigo (20 sources) Conditions associated with dizziness or vertigo Diabetes mellitus without complication (20 sources) Diabetes mellitus without complication Other lower respiratory disease (20 sources) Dyspnea on exertion; Translations: [SOB (shortness of breath) on exertion] Resolved: 08-10-2017 08-10-2017 Episodic Comment on above: on exertion Other upper respiratory disease (18 sources) Nasal discharge; Translations: [Post-nasal drainage] Resolved: 02-16-2020 02-21-2020 Episodic Residual codes; unclassified (20 sources) Family history of malignant neoplasm of ovary; Translations: [Family history of ovarian cancer] Onset: 12-19-2018 10-05-2018 Episodic Comment on above: 4 nieces Residual codes; unclassified (1 source) Family history of malignant neoplasm of breast in first degree relative; Translations: [Family history of malignant neoplasm of breast] Onset: 12-19-2018 12-19-2018 Episodic Spondylosis; intervertebral disc disorders; other back problems (20 sources) Stiff neck; Translations: [Neck stiffness] Onset: 10-15-2024 Resolved: 02-16-2020 09-16-2018 Episodic Unclassified (20 sources) Abnormal result of cardiovascular function study, unspecified; Translations: [Other specified abnormal findings of blood chemistry] Onset: 08-23-2024 Resolved: 05-26-2022 12-06-2017 Episodic Comment on above: awaiting abd ultraso und known fatty liver sl ight improvement follow q 3-6 months Unclassified (20 sources) Facial pressure Unclassified (20 sources) Sinusitis, bacterial Unclassified (20 sources) Unspecified Diagnosis 09-16-2018 Unclassified (20 sources) Elevated liver enzymes (790.4) Unclassified (20 sources) BMI 36.0-36.9,adult Unclassified (20 sources) Abnormal TSH (796.4) Unclassified (20 sources) Abdominal Pain,Unspecified Site (789.00) Unclassified (20 sources) Abnormal mammogram Unclassified (20 sources) Pre-diabetes (790.29) Unclassified (20 sources) Abnormal Cardiac Test (794.30) Unclassified (6 sources) Prediabetes; Translations: [Pre-diabetes] Resolved: 08-10-2017 08-10-2017 Comment on above: attended Jul class with perinatal educator, sign up for SEP 11 Unclassified (20 sources) Pregnancies (); Translations: [Pregnancies ()] 09-16-2018 Comment on above: 4 Unclassified (20 sources) Annual Medicare Physical (V70.0) Unclassified (20 sources) Insect bite, nonvenomous of elbow, forearm, and wrist, without mention of infection (913.4) Unclassified (20 sources) Muscle spasm (728.85) Unclassified (20 sources) Abnormal EKG(794.31) Unclassified (20 sources) Abortions/Miscarriage s; Translations: [Abortions/Miscarriag es] 09-16-2018 Comment on above: Spontaneous , 1in - Unclassified (20 sources) Patient encounter status; Translations: [Encounter for Medicare annual wellness exam] 10-05-2018 Unclassified (20 sources) Screening status; Translations: [Encounter for screening for malignant neoplasm of colon (Renamed from Special screening for malignant neoplasms, colon)] 10-05-2018 Unclassified (20 sources) Non-smoker; Translations: [Nonsmoker] 10-05-2018 Unclassified (20 sources) Screening for breast cancer Unclassified (20 sources) Post-nasal drainage Unclassified (20 sources) Exposure to SARS virus Unclassified (18 sources) Abortions/Miscarriage s; Translations: [Abortions/Miscarriag es] 02-24-2021 Comment on above: Spontaneous , 1in Unclassified (18 sources) Pregnancies (); Translations: [Pregnancies ()] 02-24-2021 Comment on above: 4 Unclassified (12 sources) Sinus complaint Results Test Name Value Interpretation Reference Range Facility Brain/Head without Contrast n 05-31-2025 Brain/Head without Contrast [facility] Imaging Services [address] [place] [address] Brain/Head without Contrast MR#: [id number] Acct: [id number] Name: VILLALOBOSKAREN Carolina Rep #: [id number] : 1945 F 79 From: Phil Gomez MD PCP: Karen Alcazar, TELEGRAPH AND TELETYPE OPERATOR-C Status: REG ER Study: Brain/Head without Contrast Date of Exam: 02/20 Exam# [id number] Ordering Dr: Kelvin Butt DO EXAM: NONCONTRAST CT SCAN OF THE HEAD CLINICAL HISTORY: Trauma COMPARISON: September 25, 2024 TECHNIQUE: Serial axial series through the head were obtained without contrast. 2-D coronal and sagittal reformats were then obtained. FINDINGS: Brain: There is no acute large territorial infarct, intracranial hemorrhage, midline shift or mass effect. There are atherosclerotic vascular calcifications involving the bilateral carotid siphons. The sella and pineal gland regions appear unremarkable. There is low-density in the deep white matter in the right and left with chronic ischemic change, similar to the prior. There is no evidence of cerebellar tonsillar herniation. Ventricles: There is no acute hydrocephalus. Basilar cisterns are patent. Paranasal sinuses: Well-aerated Mastoid air cells: Well-aerated. Calvarium: The bony calvarium is intact. There is subcutaneous edema and soft tissue swelling in the left periorbital and maxillary region with no underlying fracture. Orbits: The bilateral globes are symmetric, without retrobulbar compressive mass lesion or hemorrhage. CT/Brain/Head without Contrast IMPRESSION: There is low-density in the deep white matter in the right and left with chronic ischemic change, similar to the prior. There is subcutaneous edema and soft tissue swelling in the left periorbital and maxillary region with no underlying fracture. No acute intracranial pathology. Reading Location: [facility] CC: ADRIANO Alcazar; Dr. Kelvin Butt DO Tax Accounting Manager: Signed [facility] Emergency Department Summary on 05-31-2025 Emergency Department Summary [facility] Medical Records Department [address] [place] [id number] Emergency Department Summary 05/31/25 MR#: [id number] Acct: [id number] Name: KAREN VILLALOBOS Rep #: [id number] : 1945 79 From: Kelvin Butt DO PCP: ADRIANO Burgess Status:DEP ER Location: ED HPI HPI - Fall History of Present Illness Chief Complaint: Fall Informant: patient Occured/Mechanism Occurred: Today Mechanism/Context: Yes slip Pain/Injury Pain Location: face, neck and upper extremity (Left shoulder) Quality of Pain: Aching Worsened by: Movement Relieved by: Rest Associated Symptoms Associated Symptoms: Negative for Parasthesias, Weakness, Loss of function, Inability to ambulate or Loss of consciousness Narrative Narrative: Patient presents with head injury that occurred after a fall today. Patient slipped on wet grass and fell down embankment. Patient hit her left face on a wood fence erector block. Patient denies any loss of consciousness. Patient states she was unable to get up after her fall. Patient denies any paresthesias or weakness. Patient complains of pain over her left shoulder and into the left side of her neck. Patient denies any paresthesias or weakness. Patient denies any other injuries. Tetanus Immunization: Unknown [facility] Medical History (Updated 05/31/25 @ 12:[address] Kelvin Butt, DO) History of breast cancer ( 2018) Diabetes Home Medications ???Medication ???Instructions ???Recorded ???Last Taken ???Type cholecalciferol (vitamin D3) 25 1,000 unit PO DAILY SUPPLEMENT 04/15 Unknown History mcg (1,000 unit) capsule (Vitamin D3) levothyroxine 25 mcg tablet 25 mcg PO DAILY THYROID 10/03/18 0 04/18/19 History (Synthroid) omega 3-dha 60 mg-epa 90 mg-fish 500 mg PO DAILY SUPPLEMENT 8 Unknown History oil 500 mg capsule, delayed release (Fish Oil) semaglutide 14 mg tablet (Rybelsus) 14 mg PO 09/25/24 Unknown Histo ry ezetimibe 10 mg tablet (Zetia) 10 mg PO QDAY 01/04/25 Unknown His tory glimepiride 4 mg tablet 4 mg PO QAM 01/04/25 Unknown Histo ry hydrocodone-acetaminoph en 5-325mg 1 tab PO Q6H PRN PRN Pain 3 days 05/31/25 Unknown Rx 5mg-325mg #10 TABLETS Allergy/AdvReac Type Severity Reaction Status Date / Time latex Allergy Rash Verified 05/31/25 10:14 Penicillins (PCN) Allergy Rash Verified 05/31/25 10:14 Family History (Updated 01/04/25 @ 09:47 by Radha Jolly) Other Asthma Breast cancer CAD (coronary artery disease) Diabetes Heart disease Hypertension Myocardial infarction Thyroid disorder Surgical History Hx of lumpectomy Social History household members: spouse housing: house Smoking Status: Never smoker ROS ROS ED Constitutional Constitutional ED: Denies chills or fever(s) Eyes Eyes: Denies blurry vision or change in vision ENT ENT ED: Denies rhinorrhea or sore throat Cardiovascular Cardiovascular: Denies chest pain or palpitations Respiratory/Chest Respiratory/Chest: Denies cough or dyspnea Gastrointestinal Gastrointestinal: Denies nausea or vomiting Genitourinary Genitourinary ED: Denies dysuria or hematuria Musculoskeletal Musculoskeletal: Reports neck pain; Denies back pain Integumentary Denies abscess or rash Neurologic Neurologic: Reports headache(s); Denies weakness Allergic/Immunologic Allergic/Immunologic ED: Denies mouth swelling or urticaria EXAM Physical Exam Const Vital Signs: 05/31/25 10:10 05/31/25 10:43 05/31/25 12:06 Temperature 98.3 F Temperature Source Oral Pulse Rate 105 H 87 Respiratory Rate 18 22 H Respiratory Effort Normal Non-Labored Respiratory Depth Normal Respiratory Pattern Normal Blood Pressure 172/66 H 136/69 H Blood Pressure Mean 101 91 Pulse Ox 97 96 Oxygen Delivery Method Room Air Room Air Room Air Positive well nourished and well developed General Appearance ED: well developed and NAD HEENT Reports normocephalic HEENT Narrative: There is a large hematoma over the inferior orbital area on the left. There is a superficial abrasion over this area. There is no bony crepitance or step-off. There is mild tenderness over the superior orbital ridge. Eyes PERRL and EOMs intact bilaterally Eyes Narrative: Funduscopic examination was benign. Neck full ROM Neck Narrative: There is mild tenderness of the left upper cervical paraspinal muscles. There is no bony crepitance or step-off. There is good range of motion of the cervical spine. Resp normal respiratory effort and clear to auscultation bilaterally Cardio regular rate and regular rhythm GI non-tender and non-distended Palpation: soft Neuro oriented x3, CN's I (more content not included)... [facility] Shoulder min 2 Viewson 05-31 Shoulder min 2 Views [facility] Imaging Services [address] [place], [place] [id number] Shoulder min 2 Views MR#: [id number] Acct: [id number] Name: KAREN VILLALOBOS Rep #: [id number] : 1945 F 79 From: Phil Gomez MD PCP: Karen Alcazar TELEGRAPH AND TELETYPE OPERATOR-C Status: REG ER Study: Shoulder min 2 Views Date of Exam: 05/31/25 Exam# [id number] Ordering Dr: Kelvin Butt DO PROCEDURE: SHOULDER MIN 2 VIEWS 05/31/2025 REASON FOR EXAM: INJURY/PAIN TECHNIQUE: SHOULDER four views COMPARISON: None FINDINGS: There is a comminuted impacted fracture of the left humeral head and neck. There is no dislocation. The AC joint is aligned. The scapula appears intact. Osteopenia is noted. Surgical clips are noted in the axillary region. RAD/Shoulder min 2 Views IMPRESSION: There is a comminuted impacted fracture of the left humeral head and neck. Critical results were discussed with Dr. Butt by Dr. Gomez at the time of dictation. Reading Location: [place] CC: TELEGRAPH AND TELETYPE OPERATOR-C Karen Alcazar; Dr. Kelvin Butt DO Tax Accounting Manager: Signed [facility] Sinus/Facial Boneon 05-31-20 Sinus/Facial Bone [facility] Imaging Services [address] [place] [address] Sinus/Facial Bone MR#: [id number] Acct: [id number] Name: KAREN VILLALOBOS Rep #: [id number] : 1945 F 79 From: Phil Gomez MD PCP: ADRIANO Burgess Status: REG ER Study: Sinus/Facial Bone Date of Exam: 05/31/25 Exam# [id number] Ordering Dr: Kelvin Butt DO PROCEDURE: SINUS/FACIAL BONE 05/31/2025 REASON FOR EXAM: TRAUMA TECHNIQUE: SINUS/FACIAL BONE Coronal and Sagittal reconstruction series were provided. One or more dose reduction techniques were used (e.g., Automated exposure control, adjustment of the mA and/or kV according to patient size, use of iterative reconstruction technique). RADIATION DOSE SUMMARY: DLP: 1889.44 mGycm COMPARISON: None FINDINGS: There is minimal mucosal thickening in the floor of the left maxillary sinus. The remainder of the paranasal sinuses are clear. There is soft tissue edema at the left orbit and maxillary region with no underlying fracture. The orbital structures appear intact. There is no soft tissue air or visible radiopaque foreign body. Dental hardware is noted. Vascular calcifications are visible. CT/Sinus/Facial Bone IMPRESSION: There is minimal mucosal thickening in the floor of the left maxillary sinus. There is soft tissue edema at the left orbit and maxillary region with no underlying fracture. Reading Location: [place] CC: TELEGRAPH AND TELETYPE OPERATOR-C Karen Alcazar; Dr. Kelvin Butt DO Tax Accounting Manager: Signed [facility] Spine Cervical without Contr ason 05-31-2025 Spine Cervical without Contras [facility] Imaging Services [address] [place] [address] Spine Cervical without Contras MR#: [id number] Acct: [id number] Name: KAREN VILLALOBOS Rep #: [id number] : 1945 F 79 From: Alessio Marie MD PCP: ADRIANO Burgess Status: [facility] ER Study: Spine Cervical without Contras Date of Exam: 0 05/31/25 Exam# [id number] Ordering Dr: Kelvin Butt DO EXAM: CT Cervical Spine Without Intravenous Contrast CLINICAL INDICATION: INJURY/PAIN TECHNIQUE: Axial computed tomography images of the cervical spine without intravenous contrast. This CT exam was performed using one or more of the following dose reduction techniques: automated exposure control, adjustment of the mA and/or kV according to patient size, and/or use of iterative reconstruction technique. COMPARISON: CT Cervical Spine dated 09/25/2024 FINDINGS: VERTEBRAE: Mild endplate degenerative change and disc disease of C4-C7. Moderate facet arthropathy of C3-C6. No acute fracture. DISCS/SPINAL CANAL/NEURAL FORAMINA: See above. SOFT TISSUES: Unremarkable. CT/Spine Cervical without Contras IMPRESSION: 1. No acute fracture. 2. Degenerative changes as above. Reading Location: [place] CC: TELEGRAPH AND TELETYPE OPERATOROmega Alcazar; Dr. Kelvin Butt DO Tax Accounting Manager: Signed [facility] MR/BMS.BVSon 01-04-2025 MR/BMS.BVS [facility] Vascular Surgery [address] [place] [address] OFFICE VISIT Date of Service: 01/04/25 MR#: [id number] Acct: [id number] Name: KAREN VILLALOBOS Rep #: [id number] : 1945 Provider: TRAMAINE Salmeron Age/Sex: 79/F Location: [facility] Status: Signed Intake Vital Signs 09/25/24 11:16 01/04/25 09:48 Height 5 ft Weight: 164 lb BP 140/66 H Blood Pressure Location Lt brachial Position Sitting Respiration 16 Pulse 99 Pulse Source Monitor Temp 97.8 F Temp Source Temporal Pulse Oximetry (%) 94 Oxygen Delivery Method room air Intake Visit Reasons: Carotid Artery Stenosis Chief Complaint: establish care Is patient in pain?: No Allergies latex Allergy (Verified 01/04/25 09:50) Rash Penicillins (PCN) Allergy (Verified 01/04/25 09:50) Rash Is last menstrual period known: No Post menopausal: Yes Patient : No Have you fallen in the past year?: Yes PFSH Medical History (Updated 01/04/25 @ 13:21 by TRAMAINE Salmeron) History of breast cancer ( 2018) Diabetes Family History (Updated 01/04/25 @ 09:47 by Radha Jolly) Other Asthma Breast cancer CAD (coronary artery disease) Diabetes Heart disease Hypertension Myocardial infarction Thyroid disorder Social History household members: spouse housing: house Smoking Status: Never smoker HPI HPI HPI: KAREN VILLALOBOS, is a 79 F who presents to the office today for evaluation of carotid artery stenosis as referred by her PCP Karen Alcazar. She'd had a CT brain 08/2024 due to chronic COFFMAN which reported small age-indeterminate infarct in the left frontoparietal white matter. This led to a subsequent carotid duplex and Brain MRI. Carotid duplex 09/2024 showed mild <50% R ICA stenosis and moderate 50-69% L ICA stenosis with max PSV 136.8/44 cm/s in the distal L ICA. Brain MRI 10/2024 did not demonstrate any infarct, showed no significant abnormalities. She denies any known history of stroke or mini stroke. She denies any episodes of monocular vision loss, unilateral weakness or sensory deficits, dysarthria, facial drooping, or other focal neurologic symptoms. She has not history of prior carotid artery intervention. She denies any history of claudication, wounds, VTE, aneurysmal disease. She has no specific concerns or complaints today. She is not currently taking any aspirin. She has been intolerant to statins in the past, currently on Zetia. ROS General General: No weight change, appetite, fatigue, colon cancer, breast cancer or weakness HEENT HEENT: No difficulty swallowing, eye injury, eye surgery, swollen glands or hoarseness Endo Endocrine: No thyroid disease, diabetes mellitus, thyroid cancer, Hair loss, heat intolerance or cold intolerance Skin Skin: No rash or changing moles Musc Musculoskeletal: No back problems, arthritis, rheumatoid arthritis, gout or joint pain Cardio Cardiovascular: Yes murmur; No pacemaker, heart disease, atrial fibrillation, high blood pressure, heart attack, heart stent, palpitations, shortness of breat with exertion or chest pain Psych Psychiatric: No depression, anxiety or hearing voices Resp Respiratory: No shortness of breath, No sleep apnea, No cough, No COPD, No asthma, No emphysema and No wheezing Gastro Gastrointestinal: No abdominal pain, No nausea or vomiting, No diarrhea, No constipation, No blood in stool, No acid reflux, No hemorrhoids, No ulcers, No gallbladder problem and No black,tarry stools [place] Hematologic: No blood thinners, No blood disorders, No bleeding, No anemia and No blood clots Neuro Neurologic: No system reviewed and no additional complaints, except as documented, No as per HPI, No abnormal gait, No abnormal hearing, No abnormal movements, No abnormal speech, No behavioral changes, No burning sensations, No confusion, No convulsions, Yes disequilibrium, No dizziness, No localized weakness, No frequent falls, No headache(s), No lack of coordination, No loss of vision, No memory loss, No numbness, No other visual disturbances, No radicular pain, No restless legs, No sensory deficit, No syncope, No tingling, No tremor(s), No weakness and No other Exam Const General: cooperative, comfortable and no acute distress Orientation: alert, awake and oriented x3 HENMT Head: normal to inspection, normocephalic and atraumatic Ears: hearing grossly normal bilaterally and external ears normal Nose: external nose normal Eyes General: appearance normal, both eyes and all related structures EOM: EOM intact bilaterally Neck Neck: normal visual inspection and trachea midline Carotids: bruit Resp Effort Inspection: normal respiratory effort, able to speak in complete sentences, not labored, no (more content not included)... Normal [facility] 11-01-2024 CL[place] Telephone (GABRIELAAMAIRANI) KAREN VILLALOBOS ([id number]) 1945 F Date Time Provider Department 11/01/24 CELENA KABA During your visit today, we recorded the following information about you: Celena Kaba APRN.NAVARRO 11/01/2024 8:49 AM Signed Received a fax from Karen Alcazar CNP Re: pt. having elevated CEA with h/o breast cancer. Pt. last seen here in 2019 and refused further follow ups here. Please inform Karen that pt. needs to be worked up for elevated CEA. If +path obtained and needs consult here she will be scheduled with a physician. Thank you. Celena Kaba APRN.Shavonne Vera LPN 11/01/2024 9:10 AM Signed A copy of this note was faxed to Karen Alcazar CNP. Shavonne Zuluaga LPN Allergies As of Date: 11/01/2024 Noted Allergy Reaction PENICILLINS 03/03/2006 4 - Hives Date Reviewed: 11/06/2019 Reviewed by: Celena Kaba - Fully Assessed Prescriptions as of 11/01/2024 - Vitamin E, dl, acetate, (VITAMIN E) 400 unit capsule Take 400 Units by mouth once daily. - ibuprofen (MOTRIN) 200 mg tablet Take 200 mg by mouth as needed. - anastrozole (ARIMIDEX) 1 mg tablet Take 1 tablet by mouth once daily. - Cholecalciferol, Vitamin D3, (VITAMIN D-3) 2,000 unit cap Take 1 capsule by mouth once daily. - metFORMIN ER (FORTAMET) 500 mg 24 hr tablet Take 500 mg by mouth twice daily. - levothyroxine (SYNTHROID) 25 mcg tablet Take one tablet by mouth once daily except two tablets on Wed AND Wed. - liraglutide (VICTOZA) 0.6 mg/ 0.1 ml subcutaneous pen injector Inject 0.6 mg subcutaneously once daily. 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 Family history of ovarian cancer [Z80.41] 12/19/2018 Family history of breast cancer in sister [Z80.*12/19/2018 Encounter Status:Closed by SHAVONNE ZULUAGA on 11/01/24 Normal [facility] Brain W/WO Contraston 2023 Brain W/WO Contrast [facility] Imaging Services [address] [place] [address] Brain W/WO Contrast MR#: [id number] Acct: [id number] Name: KAREN VILLALOBOS Rep #: [id number] : 1945 F 79 From: Michelle Sutton MD PCP: ADRIANO Burgess Status: REG CLI Study: Brain W/WO Contrast Date of Exam: 10/31/24 Exam# [id number] Ordering Dr: Karen AlcazarC [id number] EXAM: MR HEAD WITHOUT AND WITH INTRAVENOUS CONTRAST CLINICAL INDICATION: Frontoparietal Cerebral Atrophy TECHNIQUE: Multiplanar and multisequence MR images of the brain were obtained without and with intravenous contrast. CONTRAST: 15ML IV CLARISCAN COMPARISON: CT September 25, 2024, mentioned small age-indeterminate infarct in the left frontoparietal white matter and chronic changes. FINDINGS: BRAIN AND EXTRA-AXIAL SPACES: No restricted diffusion to suggest acute CVA or active demyelinating lesion. Mild cerebral volume loss. Mild-moderate deep periventricular high signal white matter change and multiple patchy high signal foci in the deep structures on T2-weighted inversion recovery images. No intra- or extra-axial hemorrhage. No evidence of acute infarct. No intracranial mass or mass effect. There is preservation of the bauer/white matter interface. Posterior fossa structures are unremarkable. No hydrocephalus. Basal cisterns are patent. SELLA: Unremarkable. Normal sella turcica, pituitary gland, infundibular stalk, optic chiasm and hypothalamus. AUDITORY SYSTEM: Unremarkable. The internal auditory canals are patent. BONES/JOINTS: Unremarkable. No discrete lytic or blastic abnormalities. SINUSES: Unremarkable as visualized. Clear. MASTOID AIR CELLS: Unremarkable as visualized. Clear. ORBITS: Unremarkable as visualized. Both globes, extraocular muscles, optic nerves and retrobulbar fat appear unremarkable. VASCULATURE: Small signal voids of the distal vertebral arteries and very small basilar artery signal void is seen, there appears to be origin of the roll scale man with small but patent signal voids. Enhanced deep veins and major dural venous sinuses. No enhancing nodules. MRI/Brain W/WO Contrast IMPRESSION: No acute findings in the head/brain. Chronic changes. Electronically Signed: Michelle Sutton MD at 2:10 EST Reading Location ID and State: [facility] / [place] Tel , Service support , CC: ADRIANO Alcazar Tax Accounting Manager: Signed [facility] CREATININE FINGERSTICKon CREATININE WB < 1.0 Normal 0.55-1.02 [facility] Comment on above: Performed By: #### L 9100.0200 #### [facility] [address] [place], [address] EGFR WB > 60.0000 Normal >60 [facility] Comment on above: Performed By: #### L 9100.0200 #### [facility] [address] [place], [address] Carotid Duplex Ultrasoundon 10-09-2024 Carotid Duplex Ultrasound [facility] Cardiovascular Services [address] [place] [address] Carotid Duplex Ultrasound 10/09/24 1244 MR#: [id number] Acct: [id number] Name: KAREN VILLALOBOS Rep #: [id number] : 1945 79 From: Kelvin Ayala MD Attending Dr: ADRIANO Burgess Status: REG CLI Ordering Dr: Karen Alcazar Date: 10/09/24 Location: [facility] Sex: F C Admitted: Reason For Study: Carotid artery stenosis Rt. Velocities/BP Lt. Velocities/BP Prox CCA 78.7/12.6 cm/sec. Prox CCA 90/20.1 cm/sec. Mid CCA 86.3/21.1 cm/sec. Mid CCA 89.1/19.2 cm/sec. Dist CCA 87.2/22 cm/sec. Dist CCA 71.1/16.3 cm/sec. Prox ICA 61.9/15.7 cm/sec. Prox ICA 91.6/16.8 cm/sec. Mid ICA 93.8/26.7 cm/sec. Mid ICA 112.4/32.2 cm/sec. Dist ICA 81.5/22.7 cm/sec. Dist ICA 136.8/44.6 cm/sec. Rt. ICA/CCA = 1.09. Lt. ICA/CCA = 1.54. Prox ECA 100.3/9.1 cm/sec. Prox ECA 135.7/11.5 cm/sec. Rt. Vert. 64.8/8.1 cm/sec. Lt. Vert. 50/15.2 cm/sec. Right Extracranial There is intimal thickening but no significant atherosclerotic plaque noted in the right common carotid artery. There is heterogeneous, irregular atherosclerotic plaque noted in the right internal carotid artery. There is intimal thickening but no significant atherosclerotic plaque noted in the right external carotid artery. Antegrade flow is noted in the right vertebral artery. Left Extracranial There is intimal thickening but no significant atherosclerotic plaque noted in the left common carotid artery. There is heterogeneous, irregular atherosclerotic plaque noted in the left internal carotid artery. The left internal carotid artery is very tortuous. There is heterogeneous, irregular atherosclerotic plaque noted in the left external carotid artery. Antegrade flow is noted in the left vertebral artery. Procedure This is a Carotid Duplex examination using B-mode, color flow and specral Doppler. Carotid Duplex 66560. Exam performed in department. VL/Carotid Duplex Ultrasound Interpretation Summary Mild (<50%) stenosis right extracranial internal carotid. Moderate (50-69%) stenosis left extracranial internal carotid. Patent and antegrade vertebrals bilaterally. Ordering Physician: Karen Alcazar Referring Physician: Karen Alcazar Performed By: Kiersten Bright RVT 10/09/242054 Date Kelvin Ayala MD CC: TELEGRAPH AND TELETYPE OPERATOR-C Karen Alcazar Date Dictated: 10/09/24 1244 Date Transcribed: 10/09/242054 Tax Accounting Manager: Signed [facility] Brain/Head without Contrasto n 09-25-2024 Brain/Head without Contrast [facility] Imaging Services [address] [place] [id number] Brain/Head without Contrast MR#: [id number] Acct: [id number] Name: KAREN VILLALOBOS Rep #: [id number] : 1945 F 79 From: Reva hoang MD PCP: ADRIANO Burgess Status: REG ER Study: Brain/Head without Contrast Date of Exam: 08/30 07/22 Exam# [id number] Ordering Dr: [place] [id number] HISTORY: headache. TECHNIQUE: Multiple axial images were obtained of the head without intravenous contrast. A radiation dose optimization technique was used for this scan. 243 images. COMPARISON: None. FINDINGS: BRAIN PARENCHYMA: Multiple foci and zones of low attenuation in the bilateral cerebral white matter compatible with chronic small vessel ischemic gliosis. Mild low-attenuation in the left sy radiata. No acute intra-axial hemorrhage identified. CSF SPACES: Generalized volume loss. No midline shift or other significant mass effect. No acute extra-axial hemorrhage seen. OTHER: Intact calvarium. Mild fluid in the left mastoid air cells. Bilateral lens resections. CT/Brain/Head without Contrast IMPRESSION: Small age-indeterminate infarct in the left frontoparietal white matter. Chronic involutional and white matter changes. Electronically Signed: Reva Bryant MD at 13:34 EDT , CC: ADRIANO Alcazar; Dr. Lyle Guerrero DO Tax Accounting Manager: Signed [facility] CBC W/Diff, Automatedon 10-2 PLT EST MOD DEC Normal [facility] Comment on above: Order Comment: PLT C LUMPING Performed By: #### L 100.0100 #### [facility] [address] [place], [address] RED CELL MORPH NORM C+C Normal NORM C C [facility] Comment on above: Order Comment: PLT C LUMPING Performed By: #### L 100.0100 #### [facility] [address] [place], [address] SMEAR COMMENT SCANNED [facility] Comment on above: Order Comment: PLT C LUMPING Performed By: #### L 100.0100 #### [facility] [address] [place], [address] Emergency Department Summary on 09-25-2024 Emergency Department Summary [facility] Medical Records Department [address] [place] [address] Emergency Department Summary 09/25/24 MR#: [id number] Acct: [id number] Name: KAREN VILLALOBOS Rep #: [id number] : 1945 79 From: Lyle Guerrero DO PCP: ADRIANO Burgess Status:DEP ER Location: ED ADDENDUM by Dr. Lyle Guerrero DO on 09/27/24 at 0656 Addendum: Left index finger demonstrates a early paronychia of the lateral aspect. The nail is cut short on the side. There is mild erythema. There is no significant pus formation. 09/27/24 0656 Cosigner Signature (if applicable): cc: ADRIANO Alcazar * Signed HPI History of Present Illness Chief Complaint: Chest Other Informant: patient and spouse/S.O. Narrative Narrative: 79-year-old female presenting to the emergency room with neck and shoulder pain. Patient states that this is an ongoing issue for months. She states that last night she could not sleep. She states the discomfort is worse when she lays down. She denies any weakness of the arms or paresthesias. Patient notes that the shoulder and neck discomfort seems to come towards the front of her chest. She notes that she has had a hump on her cervical spine for a very long time. Patient denies any known trauma. She is a diabetic. Patient notes that her symptoms are intermittent at times. She notes the occasional occipital ache but not headache. [facility] Medical History Diabetes Home Medications ???Medication ???Instructions ???Recorded ???Last Taken ???Type cholecalciferol (vitamin D3) 25 1,000 unit PO DAILY SUPPLEMENT 10/03/18 Unknown History mcg (1,000 unit) capsule (Vitamin D3) levothyroxine 25 mcg tablet 25 mcg PO DAILY THYROID 10/03/18 04/18/19 History (Synthroid) liraglutide 0.6 mg/0.1 mL (18 mg/3 0.6 mg SQ DAILY DIABETIC 10/03/18 Unknown History mL) subcutaneous pen injector (Victoza 2-Vladimir) metformin 500 mg 24 hr 500 mg PO BID DIABETES 10/03/18 Unknown History tablet,extended release (gastric retention) omega 3-dha 60 mg-epa 90 mg-fish 500 mg PO DAILY SUPPLEMENT 10/03/18 Unknown History oil 500 mg capsule, delayed release (Fish Oil) anastrozole 1 mg tablet 1 mg PO DAILY 03/07/19 Unknown History lidocaine 5 % topical patch 1 patch topical DAILY PRN pain #15 09/25/24 Unknown Rx (Lidoderm) ea meloxicam 7.5 mg tablet 7.5 mg PO DAILY #14 tabs 09/25/24 Unknown Rx semaglutide 14 mg tablet (Rybelsus) 14 mg PO 09/25/24 Unknown History Allergy/AdvReac Type Severity Reaction Status Date / Time latex Allergy Rash Verified 09/25/24 11:18 Penicillins (PCN) Allergy Rash Verified 09/25/24 11:18 Social History household members: spouse housing: house Smoking Status: Never smoker ROS ROS ED Constitutional Constitutional ED: Denies chills or weight loss Eyes Eyes: Denies change in vision or diplopia ENT ENT ED: Denies ear pain, rhinorrhea or sore throat Cardiovascular Cardiovascular: Denies chest pain, orthopnea, palpitations or racing heartbeat Respiratory/Chest Respiratory/Chest: Denies cough, dyspnea or orthopnea Gastrointestinal Gastrointestinal: Denies abdominal pain, diarrhea, nausea or vomiting Genitourinary Genitourinary ED: Denies dysuria, hematuria or urinary frequency Musculoskeletal Musculoskeletal: Reports neck pain and other Details: History of present illness ; Denies arthralgias or myalgias Integumentary Denies abscess or rash Neurologic Neurologic: Denies headache(s), paresthesias or weakness Psychiatric Psychiatric: Denies anxiety, depression, suicidal ideation or suicidal thoughts Endocrine Endocrinology: Denies polydipsia, polyphagia or polyuria Allergic/Immunologic Allergic/Immunologic ED: Denies mouth swelling, tongue swelling or urticaria EXAM Physical Exam Const Vital Signs: 09/25/24 11:16 09/25/24 12:18 09/25/24 13:15 Temperature 97.4 F L Temperature Source Oral Pulse Rate 82 87 Respiratory Rate 18 Respiratory Effort Normal Non-Labored Blood Pressure 146/62 H 122/86 H Blood Pressure Mean 90 98 Pulse Ox 94 Oxygen Delivery Method Room Air 09/25/24 14:44 09/25/24 14:46 Temperature 98 F 97.4 F L Temperature Source Pulse Rate 87 84 Respiratory Rate 16 16 Respiratory Effort Blood Pressure 122/86 H 130/70 H Blood Pressure Mean 98 90 Pulse Ox 99 98 Oxygen Delivery Method Positive well nourished and well developed General Appearance ED: well developed and NAD HEENT Reports normocephalic, head/scalp atraumatic and moist mucous membranes Eyes PERRL and EOMs intact bilaterally Neck no lymphadenopathy, supple and no JVD Neck Narrative: Tender to pal (more content not included)... [facility] Spine Cervical without Contr ason 09-25-2024 Spine Cervical without Contras [facility] Imaging Services [address] [place] [address] Spine Cervical without Contras MR#: [id number] Acct: [id number] Name: KAREN VILLALOBOS Rep #: [id number] : 1945 F 79 From: Reva hoang MD PCP: Karen Alcazar, TELEGRAPH AND TELETYPE OPERATOR-C Status: REG ER Study: Spine Cervical without Contras Date of Exam: Exam# [id number] Ordering [place]: [place] [id number] HISTORY: pain. TECHNIQUE: Helically acquired images were obtained of the cervical spine without contrast. 2D reformatted images were reviewed. A radiation dose optimization technique was used for this scan. 374 images. COMPARISON: None. FINDINGS: VERTEBRAE: Vertebral body heights maintained. Posterior elements intact. ALIGNMENT: 2 mm anterolisthesis of C4-5. Straightening of the cervical lordosis. INTERVERTEBRAL DISCS: Mild posterior disc bulge osteophyte complexes at multiple levels. No critical central canal stenosis. SOFT TISSUES: No prevertebral soft tissue swelling. CT/Spine Cervical without Contras IMPRESSION: No evidence for acute fracture or dislocation in the cervical spine. Mild degenerative change. Electronically Signed: Reva Bryant MD at 13:43 EDT , CC: TELEGRAPH AND TELETYPE OPERATORBasimC Karen Alcazar; Dr. Lyle Guerrero DO Tax Accounting Manager: Signed [facility] SCRN MAMM (CAD)W/SHELIA BILATo n 08-01-2024 SCRN MAMM (CAD)W/SHELIA BILAT [facility] Imaging Services [address] [place] [address] SCRN MAMM (CAD)W/SHELIA BILAT MR#: [id number] Acct: [id number] Name: KAREN VILLALOBOS Rep #: [id number] : 1945 F 79 From: Fernando shaw MD PCP: ADRIANO Burgess Status: [facility] Study: SCRN MAMM (CAD)W/SHELIA BILAT Date of Exam: 02/19 Exam# [id number] Ordering Dr: Karen Alcazar TELEGRAPH AND TELETYPE OPERATOR-C [id number] MAMMOGRAPHY - BILATERAL SCREENING REASON FOR EXAM: Female, 79 years old. Routine annual screening examination. PERTINENT HISTORY: Personal history of breast cancer. History of prior bilateral lumpectomies and radiation. Sisters with breast cancer. Aunt with breast cancer. TECHNIQUE: Digital bilateral breast shelia (3D mammographic acquisition) in the CC and MLO projections. 2-D mediolateral oblique (MLO) and craniocaudad (CC) views of both breasts were obtained. CAD: Full Field Digital Mammography with Computer Added Detection was performed. COMPARISON: Comparison is made with prior study dated July 05, 2023 and May 19, 2022. FINDINGS: Breast Composition: There are scattered areas of fibroglandular density. There are no dominant masses or suspicious calcifications. Stable postoperative changes in both breasts secondary to prior lumpectomy. Scattered calcifications bilaterally without a focal cluster. Surgical clips are seen in both axilla. No other significant abnormalities are identified. There has been no significant change since the prior study. BI/SCRN MAMM (CAD)W/SHELIA BILAT IMPRESSION: Stable bilateral screening mammogram. Yearly follow-up mammogram recommended. (A) ASSESSMENT CATEGORY: BIRADS Category 2: Benign. A letter regarding these results will be sent to the patient by the facility within 30 days. Approximately 10% of breast cancers are not detected by mammography. A normal mammogram should not delay biopsy of a clinically suspicious abnormality. [id number] Electronically Signed: Fernando Ford MD at 13:55 EDT , CC: ADRIANO Alcazar Tax Accounting Manager: Signed [facility] Blood Glucose , Office ([phone])Ordered By: Flavia Coleman on 07-20-2023 Glucose Glucometer (BldC) [Moles/Vol] 155 1 Normal [facility]; [facility] Work Phone: HgA1C , Office ([phone])Ordere d By: Flavia Coleman on 07-20-2023 HbA1c (Bld) [Mass fraction] 9.5 % Abnormal 4.6 - 7.1 [facility]; [facility] Work Phone: CALCIFEDIOL ([phone])Ordered B y: [employer] on 01-06-2023 25-hydroxyvitamin D [Mass/Vol] 29.7 ng/mL Abnormal 30.0-100.0 [facility]; [facility] Work Phone: CBC, PLATELETS & MANUAL DIFF ([phone])Ordered By: [employer] on 01-06-2023 Basophils (Bld) [#/Vol] 0.1 10*3/uL Normal 0.0-0.2 [facility]; [facility] Work Phone: Basophils/100 WBC (Bld) 1 % Normal [facility]; [facility] Work Phone: Eosinophils (Bld) [#/Vol] 0.1 10*3/uL Normal 0.0-0.4 [facility]; [facility] Work Phone: Eosinophils/100 WBC (Bld) 1 % Normal [facility]; [facility] Work Phone: Erythrocyte distribution width (RBC) [Ratio] 12.3 % Normal 11.7-15.4 [facility]; [facility] Work Phone: Hematocrit (Bld) [Volume fraction] 40.3 % Normal 34.0-46.6 [facility]; [facility] Work Phone: Hemoglobin (Bld) [Mass/Vol] 13.4 g/dL Normal 11.1-15.9 [facility]; [facility] Work Phone: Immature granulocytes (Bld) [#/Vol] 0.0 10*3/uL Normal 0.0-0.1 [facility]; [facility] Work Phone: Immature granulocytes/100 WBC (Bld) 0 % Normal [facility]; [facility] Work Phone: Lymphocytes (Bld) [#/Vol] 1.8 10*3/uL Normal 0.7-3.1 [facility]; [facility] Work Phone: Lymphocytes/100 WBC (Bld) 33 % Normal [facility]; [facility] Work Phone: MCH (RBC) [Entitic mass] 29.3 pg Normal 26.6-33.0 [facility]; [facility] Work Phone: MCHC (RBC) [Mass/Vol] 33.3 g/dL Normal 31.5-35.7 Com [facility]; [facility] Work Phone: MCV (RBC) [Entitic vol] 88 fL Normal 79-97 [facility]; [facility] Work Phone: Monocytes (Bld) [#/Vol] 0.5 10*3/uL Normal 0.1-0.9 [facility]; [facility] Work Phone: Monocytes/100 WBC (Bld) 8 % Normal [facility]; [facility] Work Phone: Morphology Terell (Bld) [Interp] Note: Normal [facility]; [facility] Work Phone: Neutrophils (Bld) [#/Vol] 3.0 10*3/uL Normal 1.4-7.0 [facility]; [facility] Work Phone: Neutrophils/100 WBC (Bld) 57 % Normal [facility]; [facility] Work Phone: Platelets (Bld) [#/Vol] 93 10*3/uL Abnormal 150-450 [facility]; [facility] Work Phone: RBC (Bld) [#/Vol] 4.58 10*6/uL Normal 3.77-5.28 [facility]; [facility] Work Phone: WBC (Bld) [#/Vol] 5.4 10*3/uL Normal 3.4-10.8 [facility]; [facility] Work Phone: HGB A1C ([phone])Ordered By: S ystem Relations Director on 01-06-2023 HbA1c (Bld) [Mass fraction] 8.9 % Abnormal 4.8-5.6 [facility]; [facility] Work Phone: LIPID PANEL ([phone])Ordered B y: [employer] on 01-06-2023 Cholesterol [Mass/Vol] 187 mg/dL Normal 100-199 [facility]; [facility] Work Phone: Cholesterol in HDL [Mass/Vol] 56 mg/dL Normal [facility]; [facility] Work Phone: Triglyceride [Mass/Vol] 99 mg/dL Normal 0-149 [facility]; [facility] Work Phone: LIPID PANEL ([id number]) 18 mg/dL Normal 5-40 [facility]; [facility] Work Phone: LIPID PANEL (44057) 113 mg/dL Abnormal 0-99 [facility]; [facility] Work Phone: LIPID PANEL (83277) 2.0 {ratio} Normal 0.0-3.2 [facility]; [facility] Work Phone: METABOLIC PANEL, COMPREHENSI VE ([id number])Ordered By: [employer] on 01-06-2023 Albumin [Mass/Vol] 4.5 g/dL Normal 3.7-4.7 [facility]; [facility] Work Phone: Albumin/Globulin [Mass ratio] 1.7 {ratio} Normal 1.2-2.2 [facility]; [facility] Work Phone: ALP [Catalytic activity/Vol] 101 U/L Normal 44-121 [facility]; [facility] Work Phone: ALT [Catalytic activity/Vol] 45 U/L Abnormal 0-32 [facility]; [facility] Work Phone: AST [Catalytic activity/Vol] 52 U/L Abnormal 0-40 [facility]; [facility] Work Phone: Bilirubin [Mass/Vol] 0.5 mg/dL [facility] 0.0-1.2 [facility] Work Phone: Calcium [Mass/Vol] 9.8 mg/dL Normal 8.7-10.3 [facility]; [facility] Work Phone: Chloride [Moles/Vol] 102 mmol/L Normal 96-106 [facility] rehensive Internal Medicine; [facility] Work Phone: CO2 [Moles/Vol] 20 mmol/L Normal 20-29 [facility]; [facility] Work Phone: Creatinine [Mass/Vol] 0.73 mg/dL Normal 0.57-1.00 [facility] prehensive Internal Medicine; [facility] Work Phone: Globulin (S) [Mass/Vol] 2.7 g/dL Normal 1.5-4.5 [facility]; [facility] Work Phone: Glucose [Mass/Vol] 176 mg/dL Abnormal 70-99 [facility]; [facility] Work Phone: Potassium [Moles/Vol] 4.6 mmol/L Normal 3.5-5.2 [facility] prehensive Internal Medicine; [facility] Work Phone: Protein [Mass/Vol] 7.2 g/dL Normal 6.0-8.5 [facility]; [facility] Work Phone: Sodium [Moles/Vol] 139 mmol/L Normal 134-144 [facility]; [facility] Work Phone: Urea nitrogen [Mass/Vol] 12 mg/dL Normal 8-27 [facility]; [facility] Work Phone: Urea nitrogen/Creatinine [Mass ratio] 16 mg/mg Normal 12-28 [facility]; [facility] Work Phone: METABOLIC PANEL, COMPREHENSIVE ([phone]) 85 mL/min/1.73 Normal Com[facility]; [facility] Work Phone: TSH (THYROID STIMULATING HOR BARRON) ([phone])Ordered By: [employer] on 01-06-2023 TSH Qn 3.720 {uIU/mL} Normal 0.450-4.50 0 [facility]; [facility] Work Phone: Blood Glucose , Office ([phone])Ordered By: Latrice Levy on 09-22-2022 Glucose Glucometer (BldC) [Moles/Vol] 178 1 Normal [facility]; [facility] Work Phone: HgA1C , Office ([phone])Ordere d By: Latrice Levy on 09-22-2022 HbA1c (Bld) [Mass fraction] 8.6 % Abnormal 4.6 - 7.1 [facility]; [facility] Work Phone: Blood Glucose , Office ([phone])Ordered By: Federica Olivarez on 02-27-2022 Glucose Glucometer (BldC) [Moles/Vol] 216 1 Normal [facility]; [facility] Work Phone: Comment on above: non-fastin HgA1C , Office ([phone])Ordere d By: Haseeb Brizuela on 02-27-2022 HbA1c (Bld) [Mass fraction] 8.2 % Abnormal 4.6 - 7.1 [facility]; [facility] Work Phone: CBC & PLATELETS (AUTO) ([phone])Ordered By: [employer] on 02-24-2022 Erythrocyte distribution width (RBC) [Ratio] 13.1 % Normal 11.7-15.4 [facility]; [facility] Work Phone: Comment on above: January 2022; PATIENT WAS FASTINGPERFORMED BY: CB [facility] [id number] [address]Dublin [place] [id number] Hematocrit (Bld) [Volume fraction] 41.3 % Normal 34.0-46.6 [facility]; [facility] Work Phone: Comment on above: January 2022; PATIENT WAS FASTINGPERFORMED BY: CB [facility] [id number] [address] RoadDublin [place] [id number] Hemoglobin (Bld) [Mass/Vol] 13.8 g/dL Normal 11.1-15.9 [facility]; [facility] Work Phone: Comment on above: January 2022; PATIENT WAS FASTINGPERFORMED BY: CB [facility] [id number] [address]Dublin [place] [id number] MCH (RBC) [Entitic mass] 29.7 pg Normal 26.6-33.0 [facility]; [facility] Work Phone: Comment on above: January 2022; PATIENT WAS FASTINGPERFORMED BY: CB [facility] [id number] [address]Dublin [place] [id number] MCHC (RBC) [Mass/Vol] 33.4 g/dL Normal 31.5-35.7 [facility]; [facility] Work Phone: Comment on above: January 2022; PATIENT WAS FASTINGPERFORMED BY: CB [facility] [id number] [address]Dublin [place] [id number] MCV (RBC) [Entitic vol] 89 fL Normal 79-97 [facility]; [facility] Work Phone: Comment on above: January 2022; PATIENT WAS FASTINGPERFORMED BY: CB [facility] Sjhsag7140 [address]Dublin [place] [id number] Platelets (Bld) [#/Vol] 98 10*3/uL Abnormal 150-450 [facility]; [facility] Work Phone: Comment on above: January 2022; PATIENT WAS FASTINGPERFORMED BY: CB [facility] Jkyctf4986 [address]blin [place] [id number] RBC (Bld) [#/Vol] 4.65 10*6/uL Normal 3.77-5.28 [facility]; [facility] Work Phone: Comment on above: January 2022; PATIENT WAS FASTINGPERFORMED BY: [facility] [id number] [facility]in [place] [id number] WBC (Bld) [#/Vol] 6.6 10*3/uL Normal 3.4-10.8 [facility]; [facility] Work Phone: Comment on above: Verified by repeat analysis January 2022; PATIENT WAS FASTINGPERFORMED BY: [facility] [address] [facility] [id number] HEPATIC FUNCTION PANEL ([id number])Ordered By: [employer] on 02-24-2022 Albumin [Mass/Vol] 4.2 g/dL Normal 3.7-4.7 [facility]; [facility] Work Phone: Comment on above: January 2022; PATIENT WAS FASTINGPERFORMED BY: [facility] [id number] [facility] [id number] ALP [Catalytic activity/Vol] 99 U/L Normal 44-121 [facility]; [facility] Work Phone: Comment on above: January 2022; PATIENT WAS FASTINGPERFORMED BY: [facility] Hrlcqj[address] [facility]bl[facility] [place] [id number] ALT [Catalytic activity/Vol] 39 U/L Abnormal 0-32 [facility]; [facility] Work Phone: Comment on above: January 2022; PATIENT WAS FASTINGPERFORMED BY: [facility] [id number] [facility] HospitalDublin [place] [id number] AST [Catalytic activity/Vol] 40 U/L Normal 0-40 [facility]; [facility] Work Phone: Comment on above: January 2022; PATIENT WAS FASTINGPERFORMED BY: [facility] Gxtubq7672 [address] RoadAtrium Health Carolinas Medical Centerin [place] [id number] Bilirubin [Mass/Vol] 0.5 mg/dL Normal 0.0-1.2 [facility]eren[facility]; [facility] Work Phone: Comment on above: January 2022; PATIENT WAS FASTINGPERFORMED BY: CB [facility] Aqnphi5037 [address]Dublin [place] [id number] Bilirubin.direct [Mass/Vol] 0.14 mg/dL Normal 0.00-0.40 [facility]; [facility] Work Phone: Comment on above: January 2022; PATIENT WAS FASTINGPERFORMED BY: CB [facility] [id number] [facility]in [place] [id number] Protein [Mass/Vol] 7.3 g/dL Normal 6.0-8.5 [facility]; [facility] Work Phone: Comment on above: January 2022; PATIENT WAS FASTINGPERFORMED BY: [facility] [id number] [facility] [id number] Blood Glucose , Office ([phone])Ordered By: Latrice Levy on 11-18-2021 Glucose Glucometer (BldC) [Moles/Vol] 138 1 Normal [facility]; [facility] Work Phone: HgA1C , Office ([phone])Ordere d By: Latrice Levy on 11-18-2021 HbA1c (Bld) [Mass fraction] 6.8 % Normal 4.6 - 7.1 [facility]; [facility] Work Phone: CALCIFEDIOL ([phone])Ordered B y: [employer] on 11-12-2021 25-hydroxyvitamin D [Mass/Vol] 41.9 ng/mL Normal 30.0-100.0 [facility]; [facility] Work Phone: Comment on above: Vitamin D deficiency has been defined by the Gordon ofMedicine and an Endocrine Society practice guideline as alevel of serum 25-OH vitamin D less than 20 ng/mL (1,2).The Endocrine Society went on to further define vitamin Dinsufficiency as a level between 21 and 29 ng/mL (2).1. IOM ([place] of Medicine). 2010. Dietary reference intakes for calcium and D. [place]: The National Academies Press.2. Ace MF, Lurdes WELLS, Cynthia COFFMAN, et al. Evaluation, treatment, and prevention of vitamin D deficiency: an Endocrine Society clinical practice guideline. JCEM. 2010; 96(7):1911-30. Nov 12; PATIENT WAS FASTINGPERFORMED BY: CB [facility] Enxmim1537 [address]Dublin [place] [id number] CBC & PLATELETS (AUTO) (8502 [id number])Ordered By: [employer] on 11-12-2021 Erythrocyte distribution width (RBC) [Ratio] 12.9 % Normal 11.7-15.4 [facility]; [facility] Work Phone: Comment on above: Nov 12; PATIENT WAS FASTINGPERFORMED BY: CB [facility] [id number] [address]Dublin [place] [id number] Hematocrit (Bld) [Volume fraction] 39.2 % Normal 34.0-46.6 [facility]; [facility] Work Phone: Comment on above: Nov 12; PATIENT WAS FASTINGPERFORMED BY: CB [facility] Wymvle7590 [address]Dublin [place] [id number] Hemoglobin (Bld) [Mass/Vol] 13.3 g/dL Normal 11.1-15.9 [facility]; [facility] Work Phone: Comment on above: Nov 12; PATIENT WAS FASTINGPERFORMED BY: CB [facility] Rjbqed3451 [address]Dublin [place] [id number] MCH (RBC) [Entitic mass] 29.9 pg Normal 26.6-33.0 [facility]; [facility] Work Phone: Comment on above: Nov 12; PATIENT WAS FASTINGPERFORMED BY: CB [facility] Rdxgcu6041 [address]Dublin [place] [id number] MCHC (RBC) [Mass/Vol] 33.9 g/dL Normal 31.5-35.7 [facility] prehensive Internal Medicine; [facility] Work Phone: Comment on above: Nov 12; PATIENT WAS FASTINGPERFORMED BY: CB [facility] Edhngi1094 [address]Dublin [place] [id number] MCV (RBC) [Entitic vol] 88 fL Normal 79-97 [facility]; [facility] Work Phone: Comment on above: Nov 12; PATIENT WAS FASTINGPERFORMED BY: CB [facility] [id number] [address]Dublin [place] [id number] Platelets (Bld) [#/Vol] 119 10*3/uL Abnormal 150-450 [facility]; [facility] Work Phone: Comment on above: Nov 12; PATIENT WAS FASTINGPERFORMED BY: CB [facility] Jnfmba8864 [address]Dublin [place] [id number] RBC (Bld) [#/Vol] 4.45 10*6/uL Normal 3.77-5.28 [facility]erens[facility]; [facility] Work Phone: Comment on above: Nov 12; PATIENT WAS FASTINGPERFORMED BY: CB [facility] Xwonrq4636 [address]Dublin [place] [id number] WBC (Bld) [#/Vol] 5.7 10*3/uL Normal 3.4-10.8 [facility]; [facility] Work Phone: Comment on above: Nov 12; PATIENT WAS FASTINGPERFORMED BY: CB [facility] Shpodq4850 [address]Dublin [place] [id number] LIPID PANEL ([id number])Ordered B y: [employer] on 11-12-2021 Cholesterol [Mass/Vol] 177 mg/dL Normal 100-199 [facility]; [facility] Work Phone: Comment on above: Nov 12 2021; PATIENT WAS FASTINGPERFORMED BY: CB [facility] Kpfukt4236 [address]Dublin [place] [id number] Cholesterol in HDL [Mass/Vol] 54 mg/dL Normal [facility]; [facility] Work Phone: Comment on above: Nov 12 2021; PATIENT WAS FASTINGPERFORMED BY: CB [facility] Embpqf9903 [address]Dublin [place] [id number] Triglyceride [Mass/Vol] 88 mg/dL Normal 0-149 [facility]; [facility] Work Phone: Comment on above: Nov 12 2021; PATIENT WAS FASTINGPERFORMED BY: CB [facility] Hbpsvv8933 [address]Dublin [place] [id number] LIPID PANEL (32854) 16 mg/dL Normal 5-40 Compr ensive [facility]; [facility] Work Phone: Comment on above: Nov 12 2021; PATIENT WAS FASTINGPERFORMED BY: CB [facility] Dybksx7719 [address]Dublin [place] [id number] LIPID PANEL (93959) 107 mg/dL Abnormal 0-99 [facility]erens[facility]; [facility] Work Phone: Comment on above: Nov 12 2021; PATIENT WAS FASTINGPERFORMED BY: CB [facility] Owfxhy7237 [address]Dublin [place] [id number] LIPID PANEL (84329) 2.0 {ratio} Normal 0.0-3.2 [facility]erens[facility]; [facility] Work Phone: Comment on above: LDL/HDL Ratio Men Wo men 1/2 Avg.Risk 1.0 1.5 Avg.Risk 3.6 3.2 2X Avg.Risk 6.2 5.0 3X Avg.Risk 8.0 6.1 Nov 12 2021; PATIENT WAS FASTINGPERFORMED BY: CB [facility] Hvhfnp[address] UnioncyD[place] [id number] Metabolic Panel, Comprehensi ve (03789)Ordered By: [employer] on 11-12-2021 Albumin [Mass/Vol] 4.5 g/dL Normal 3.7-4.7 [facility]; [facility] Work Phone: Comment on above: Nov 12 2021; PATIENT WAS FASTINGPERFORMED BY: CB [facility] Rpxmbv7653 [address]Dublin [place] [id number] Albumin/Globulin [Mass ratio] 1.7 {ratio} Normal 1.2-2.2 [facility]; [facility] Work Phone: Comment on above: Nov 12 2021; PATIENT WAS FASTINGPERFORMED BY: CB [facility] Xdxtwh2973 [address] RoadDublin [place] [id number] ALP [Catalytic activity/Vol] 94 U/L Normal 44-121 [facility]; [facility] Work Phone: Comment on above: Please note refere nce interval change Nov 12 2021; PATIENT WAS FASTINGPERFORMED BY: CB [facility] Ullshj0981 [address] RoadDublin [place] [id number] ALT [Catalytic activity/Vol] 47 U/L Abnormal 0-32 [facility]; [facility] Work Phone: Comment on above: Nov 12 2021; PATIENT WAS FASTINGPERFORMED BY: CB [facility] Tycnwy8795 [address] RoadDublin [place] [id number] AST [Catalytic activity/Vol] 45 U/L Abnormal 0-40 [facility]; [facility] Work Phone: Comment on above: Nov 12 2021; PATIENT WAS FASTINGPERFORMED BY: CB [facility] Hqmdao3986 [address] RoadDublin [place] [id number] Bilirubin [Mass/Vol] 0.5 mg/dL Normal 0.0-1.2 Comp rehensive Internal Medicine; [facility] Work Phone: Comment on above: Nov 12 2021; PATIENT WAS FASTINGPERFORMED BY: CB [facility] Hdhpyr4044 [address] RoadDublin [place] [id number] Calcium [Mass/Vol] 9.7 mg/dL Normal 8.7-10.3 [facility] Internal Medicine; [facility] Work Phone: Comment on above: Nov 12 2021; PATIENT WAS FASTINGPERFORMED BY: CB [facility] Xwfmen5725 [address] RoadDublin [place] [id number] Chloride [Moles/Vol] 103 mmol/L Normal 96-106 Comp rehensive [facility]; [facility] Work Phone: Comment on above: Nov 12 2021; PATIENT WAS FASTINGPERFORMED BY: ANGELI Coello6370 Litzy KimDeaconess Hospital [facility] [id number] CO2 [Moles/Vol] 24 mmol/L Normal 20-29 [facility] Medicine; [facility] Work Phone: Comment on above: Nov 12 2021; PATIENT WAS FASTINGPERFORMED BY: ANGELI Coello6370 Litzy RosasFormerly [facility] [id number] Creatinine [Mass/Vol] 0.73 mg/dL Normal 0.57-1.00 Com prehensive Internal Medicine; [facility] Work Phone: Comment on above: Nov 12 2021; PATIENT WAS FASTINGPERFORMED BY: ANGELI Coello6[address] RalphFormerly [facility] [id number] GFR/1.73 sq M.predicted among blacks CKD-EPI (S/P/Bld) [Vol rate/Area] 93 mL/min/1.73 Normal [facility]; [facility] Work Phone: Comment on above: In accordance with recommendations from the NKF-ASN Task force, [facility] is in the process of updating its eGFR calculation to the 2020 CKD-EPI creatinine equation that estimates kidney function without a race variable. Nov 12 2021; PATIENT WAS FASTINGPERFORMED BY: ANGELI Coello6370 Litzy RosasFormerly [facility] [id number] GFR/1.73 sq M.predicted among non-blacks CKD-EPI (S/P/Bld) [Vol rate/Area] 80 mL/min/1.73 Normal [facility]; [facility] Work Phone: Comment on above: Nov 12 2021; PATIENT WAS FASTINGPERFORMED BY: ANGELI Coello6370 Lizty CartyNovant Health [id number] Globulin (S) [Mass/Vol] 2.7 g/dL Normal 1.5-4.5 C omprehensive Internal Medicine; [facility] Work Phone: Comment on above: Nov 12 2021; PATIENT WAS FASTINGPERFORMED BY: CB [facility] Rryloo3760 [address] RoadDublin [place] [id number] Glucose [Mass/Vol] 129 mg/dL Abnormal 65-99 [facility] Internal Medicine; [facility] Work Phone: Comment on above: Nov 12 2021; PATIENT WAS FASTINGPERFORMED BY: CB [facility] Onyvhx5087 [address] RoadDublin [place] [id number] Potassium [Moles/Vol] 4.7 mmol/L Normal 3.5-5.2 [facility] Internal Medicine; [facility] Work Phone: Comment on above: Nov 12 2021; PATIENT WAS FASTINGPERFORMED BY: CB [facility] Iubfkn1158 [address]Dublin [place] [id number] Protein [Mass/Vol] 7.2 g/dL Normal 6.0-8.5 [facility] Internal Medicine; [facility] Work Phone: Comment on above: Nov 12 2021; PATIENT WAS FASTINGPERFORMED BY: CB [facility] Imytpo8412 [address] RoadDublin [place] [id number] Sodium [Moles/Vol] 139 mmol/L Normal 134-144 [facility] Internal Medicine; [facility] Work Phone: Comment on above: Nov 12 2021; PATIENT WAS FASTINGPERFORMED BY: CB [facility] Roismx9094 [address] RoadDublin [place] [id number] Urea nitrogen [Mass/Vol] 14 mg/dL Normal 8-27 [facility] Internal Medicine; [facility] Work Phone: Comment on above: Nov 12 2021; PATIENT WAS FASTINGPERFORMED BY: CB [facility] Ixukeo4397 [address] RoadDublin [place] [id number] Urea nitrogen/Creatinine [Mass ratio] 19 mg/mg Normal 12-28 [facility] Internal Medicine; [facility] Work Phone: Comment on above: Nov 12 2021; PATIENT WAS FASTINGPERFORMED BY: CB [facility] Efiadj2963 [address] RoadDublin [place] [id number] TSH (THYROID STIMULATING HOR BARRON) ([id number])Ordered By: [employer] on 11-12-2021 TSH Qn 3.650 {uIU/mL} Normal 0.450-4.50 0 [facility]; [facility] Work Phone: Comment on above: NOV 12 2021; PATIENT WAS FASTINGPERFORMED BY: LabcoHunterdon Medical CenterTswnrm5114 McgheeHeartland Behavioral Health Services [id number] Blood Glucose , Office ([phone] 2)Ordered By: Nellie Knox on 08-13-2021 Glucose Glucometer (BldC) [Moles/Vol] 198 1 Normal [facility]; [facility] Work Phone: Comment on above: 198 HgA1C , Office ([id number])Ordere d By: Nellie Knox on 08-13-2021 HbA1c (Bld) [Mass fraction] 7.9 % Abnormal 4.6 - 7.1 [facility]; [facility] Work Phone: Blood Glucose , Office ([phone])Ordered By: Haseeb Brizuela on 03-19-2021 Glucose Glucometer (BldC) [Moles/Vol] 197 1 Normal [facility]; [facility] Work Phone: HgA1C , Office ([phone])Ordere d By: Haseeb Brizuela on 03-19-2021 HbA1c (Bld) [Mass fraction] 7.4 % Abnormal 4.6 - 7.1 [facility]; [facility] Work Phone: CALCIFEDIOL ([id number])Ordered B y: [employer] on 03-13-2021 25-hydroxyvitamin D [Mass/Vol] 37.5 ng/mL Normal 30.0-100.0 [facility]; [facility] Work Phone: Comment on above: Vitamin D deficiency has been defined by the Gordon ofMedicine and an Endocrine Society practice guideline as alevel of serum 25-OH vitamin D less than 20 ng/mL (1,2).The Endocrine Society went on to further define vitamin Dinsufficiency as a level between 21 and 29 ng/mL (2).1. IOM (Gordon of Medicine). 2010. Dietary reference intakes for calcium and D. [place]: The National Academies Press.2. Ace BILLINGSLEY, Lurdes WELLS, Cynthia COFFMAN, et al. Evaluation, treatment, and prevention of vitamin D deficiency: an Endocrine Society clinical practice guideline. JCEM. 2010; 96(7):1911-30. PATIENT WAS FASTINGP ERFORMED BY: CB [facility] Gvcvwz2663 [address] RoadDublin [place] [id number] LIPID PANEL ([id number])Ordered B y: [employer] on 03-13-2021 Cholesterol [Mass/Vol] 228 mg/dL Abnormal 100-199 [facility]; [facility] Work Phone: Comment on above: PATIENT WAS FASTINGP ERFORMED BY: CB [facility] Jchllc8971 [address] RoadDublin [place] [id number] Cholesterol in HDL [Mass/Vol] 47 mg/dL Normal [facility]; [facility] Work Phone: Comment on above: PATIENT WAS FASTINGP ERFORMED BY: CB [facility] Dnmssb5286 [address] RoadDublin [place] [id number] Triglyceride [Mass/Vol] 141 mg/dL Normal 0-149 C ompohio[facility] cancer centerensive Internal Medicine; [facility] Work Phone: Comment on above: PATIENT WAS FASTINGP ERFORMED BY: CB [facility] Ewqzpa7446 [address] RoadDublin [place] [id number] LIPID PANEL (46048) 26 mg/dL Normal 5-40 Compr ensive Internal Medicine; [facility] Work Phone: Comment on above: PATIENT WAS FASTINGP ERFORMED BY: CB [facility] Fmqlog6097 [address] RoadDublin [place] [id number] LIPID PANEL (71525) 155 mg/dL Abnormal 0-99 Compr ensive Internal Medicine; [facility] Work Phone: Comment on above: PATIENT WAS FASTINGP ERFORMED BY: CB [facility] Avuvrv2577 [address] RoadDublin [place] [id number] LIPID PANEL (60584) 3.3 {ratio} Abnormal 0.0-3.2 Comp [facility] centerensive Internal Medicine; [facility] Work Phone: Comment on above: LDL/HDL Ratio Men Wo men 1/2 Avg.Risk 1.0 1.5 Avg.Risk 3.6 3.2 2X Avg.Risk 6.2 5.0 3X Avg.Risk 8.0 6.1 PATIENT WAS FASTINGP ERFORMED BY: [employer]6370 FanchimpAtrium Health Carolinas Medical Centerin [place] [id number] TSH (THYROID STIMULATING HOR BARRON) ([id number])Ordered By: [employer] on 03-13-2021 TSH Qn 3.770 {uIU/mL} Normal 0.450-4.50 0 [facility]; [facility] Work Phone: Comment on above: PATIENT WAS FASTINGP ERFORMED BY: [employer]6370 [address] Pharmain [place] [id number] VITAMIN B12 AND FOLATES (829 62)Ordered By: [employer] on 03-13-2021 Cobalamin (Vitamin B12) [Mass/Vol] 825 pg/mL Normal 232-1245 [facility]; [facility] Work Phone: Comment on above: PATIENT WAS FASTINGP ERFORMED BY: [employer]6[address] UnioncyAtrium Health Carolinas Medical Centerin [place] [id number] Folate [Mass/Vol] 8.7 ng/mL Normal Compreh ensive Internal Medicine; [facility] Work Phone: Comment on above: A serum folate stephanie ntration of less than 3.1 ng/mL isconsidered to represent clinical deficiency. PATIENT WAS FASTINGP ERFORMED BY: [employer]6370 McgheeHeartland Behavioral Health Services [id number] [facility] 02-14-2021 [facility] Nurse Visit (COVAMD) KAREN VILLALOBOS ([id number]) 1945 F Date Time Provider Department 02/14/21 JAMIL IVERSON (ASSET MANAGEMENT ANALYST) COVBELLE During your visit today, we recorded the following information about you: Allergies As of Date: 02/14/2021 Noted Allergy Reaction PENICILLINS 03/03/2006 4 - Hives Date Reviewed: 11/06/2019 Reviewed by: Celena Kaba - Fully Assessed Order(s):Sportilia SARS-COV-2 VACCINE 2D DOSE APPT [[id number]] Order #: [id number] Prescriptions as of 02/14/2021 Sig: VITAMIN E 400 UNIT CAPSULE Take 400 Units by mouth once * IBUPROFEN 200 MG TABLET Take 200 mg by mouth as neede* ANASTROZOLE 1 MG TABLET Take 1 tablet by mouth once d* CHOLECALCIFEROL (VITAMIN D3) * Take 1 capsule by mouth once * METFORMIN ER 500 MG TABLET,EX* Take 500 mg by mouth twice da* LEVOTHYROXINE 25 MCG TABLET Take one tablet by mouth once* LIRAGLUTIDE 0.6 MG/0.1 ML (18* Inject 0.6 mg subcutaneously * Problem List As Of Date 02/14/2021 Noted Resolved Controlled type 2 diabetes mellitus without com*12/19/2018 Acquired hypothyroidism [E03.9] 12/19/2018 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 Family history of ovarian cancer [Z80.41] 12/19/2018 Family history of breast cancer in sister [Z80.*12/19/2018 Encounter Status:[facility] Blood Glucose , Office ([phone] 2)Ordered By: Haseeb Sherwood on 06-10-2020 Glucose Glucometer (BldC) [Moles/Vol] 138 1 Normal [facility] Work Phone: CALCIFEDIOL ([id number])Ordered B y: [employer] on 06-10-2020 25-Hydroxyvitamin D2+25-Hydroxyvitamin D3 [Mass/Vol] 38.8 ng/mL Normal 30.0-100.0 [facility] Work Phone: Comment on above: Vitamin D deficiency has been defined by the Gordon ofMedicine and an Endocrine Society practice guideline as alevel of serum 25-OH vitamin D less than 20 ng/mL (1,2).The Endocrine Society went on to further define vitamin Dinsufficiency as a level between 21 and 29 ng/mL (2).1. IOM (Gordon of Medicine). 2010. Dietary reference intakes for calcium and D. [place]: The National Academies Press.2. Ace MF, Lur[place], Cynthia COFFMAN, et al. Evaluation, treatment, and prevention of vitamin D deficiency: an Endocrine Society clinical practice guideline. JCEM. 2010; 96(7):1911-30. PATIENT NOT FASTINGP ERFORMED BY: [employer] Dlldpk8125 [address] Prismaticblin [place] [id number] HGB A1C ([id number])Ordered By: S ystem Relations Director on 06-10-2020 HbA1c (Bld) [Mass fraction] 7.4 % Abnormal 4.8-5.6 [facility] Work Phone: Comment on above: . Prediabetes: 5.7 - 6.4 Diabetes: >6.4 Glycemic control for adults with diabetes: <7.0 PATIENT NOT FASTINGP ERFORMED BY: [employer]70 Alizé Pharmablin [place] [id number] VITAMIN B12 AND FOLATES (826 07)Ordered By: [employer] on 06-10-2020 Cobalamin (Vitamin B12) [Mass/Vol] 648 pg/mL Normal 232-1245 [facility] Work Phone: Comment on above: PATIENT NOT FASTINGP ERFORMED BY: [employer]70 [address] Prismaticblin [place] [id number] Folate [Mass/Vol] 8.0 ng/mL Normal [facility] Internal Medicine Work Phone: Comment on above: A serum folate stephanie ntration of less than 3.1 ng/mL isconsidered to represent clinical deficiency. PATIENT NOT FASTINGP ERFORMED BY: [employer] Byhxcz0923 [address] RoadDublin [place] [id number] LIPID PANEL ([id number])Ordered B y: [employer] on 06-05-2020 Cholesterol [Mass/Vol] 242 mg/dL Abnormal 100-199 Co mprehensive Internal Medicine Work Phone: Comment on above: PATIENT WAS FASTINGP ERFORMED BY: [employer] LabNextlanding Ppobad2880 [address] UnioncyDublin [place] [id number] Cholesterol in HDL [Mass/Vol] 48 mg/dL Normal [facility] Work Phone: Comment on above: PATIENT WAS FASTINGP ERFORMED BY: ANGELI LabComauri Gtnztd4587 [address] Man [facility] Hospitalblin [place] [id number] Cholesterol in LDL [Mass/Vol] 170 mg/dL Abnormal 0-99 [facility] Work Phone: Comment on above: PATIENT WAS FASTINGP ERFORMED BY: ANGELI LabComauri Jtcflw6518 [address] Man [facility] Hospitalblin [place] [id number] Cholesterol in LDL/Cholesterol in HDL [Mass ratio] 3.5 {ratio} Abnormal 0.0-3.2 [facility] Work Phone: Comment on above: LDL/HDL Ratio Men Wo men 1/2 Avg.Risk 1.0 1.5 Avg.Risk 3.6 3.2 2X Avg.Risk 6.2 5.0 3X Avg.Risk 8.0 6.1 PATIENT WAS FASTINGP ERFORMED BY: ANGELI LabDajuan WeldonYligpb7405 [address] [facility] [id number] Cholesterol in VLDL [Mass/Vol] 24 mg/dL Normal 5-40 [facility] Work Phone: Comment on above: PATIENT WAS FASTINGP ERFORMED BY: ANGELI LabComauri Rqbahd3469 [facility] Centerblin [place] [id number] Triglyceride [Mass/Vol] 121 mg/dL Normal 0-149 C omprehensive Internal Medicine Work Phone: Comment on above: PATIENT WAS FASTINGP ERFORMED BY: ANGELI LabComauri Orfqsg1448 [facility]in [place] [id number] Metabolic Panel, Comprehensi ve ([id number])Ordered By: [employer] on 06-05-2020 Albumin [Mass/Vol] 4.4 g/dL Normal 3.7-4.7 Compre hensj[facility] Internal Medicine Work Phone: Comment on above: PATIENT WAS FASTINGP ERFORMED BY: ANGELI [facility] Yyixfa5429 [address] [facility]in [place] [id number] Albumin/Globulin [Mass ratio] 1.5 {ratio} Normal 1.2-2.2 [facility] Work Phone: Comment on above: PATIENT WAS FASTINGP ERFORMED BY: ANGELI [facility] Nnvmlz4599 Mc[address] RoadDublin [place] [id number] ALP [Catalytic activity/Vol] 91 [iU]/L Normal 39-117 [facility] Work Phone: Comment on above: PATIENT WAS FASTINGP ERFORMED BY: ANGELI [facility] Mmnkpo7131 [address] RoadDublin [place] [id number] ALP [Catalytic activity/Vol] 91 U/L Normal 39-117 [facility] Work Phone: Comment on above: PATIENT WAS FASTINGP ERFORMED BY: ANGELI [facility] Rzllrs8003 [address] RoadDublin [place] [id number] ALT [Catalytic activity/Vol] 37 [iU]/L Abnormal 0-32 [facility] Work Phone: Comment on above: PATIENT WAS FASTINGP ERFORMED BY: ANGELI [facility] Zzvaxk9178 [address] RoadDublin [place] [id number] ALT [Catalytic activity/Vol] 37 U/L Abnormal 0-32 [facility] Work Phone: Comment on above: PATIENT WAS FASTINGP ERFORMED BY: ANGELI [facility] Dzrpwf1736 [address] RoadDublin [place] [id number] AST [Catalytic activity/Vol] 40 [iU]/L Normal 0-40 [facility] Work Phone: Comment on above: PATIENT WAS FASTINGP ERFORMED BY: [facility] Oprrvn7168 [address] RoadDublin [place] [id number] AST [Catalytic activity/Vol] 40 U/L Normal 0-40 [facility] Work Phone: Comment on above: PATIENT WAS FASTINGP ERFORMED BY: [facility] Xoatrv1771 [address] RoadDublin [place] [id number] Bilirubin [Mass/Vol] 0.5 mg/dL Normal 0.0-1.2 Comp [facility] Internal Medicine Work Phone: Comment on above: PATIENT WAS FASTINGP ERFORMED BY: [facility] Gpnsbi2474 Mc[address] RoadDublin [place] [id number] Calcium [Mass/Vol] 9.9 mg/dL Normal 8.7-10.[address] [facility] Internal Medicine Work Phone: Comment on above: PATIENT WAS FASTINGP ERFORMED BY: CB [facility] Oyrabv7739 [address] RoadDublin [place] [id number] Chloride [Moles/Vol] 105 mmol/L Normal 96-106 Comp rehensive Internal Medicine Work Phone: Comment on above: PATIENT WAS FASTINGP ERFORMED BY: CB [facility] Nepofl2305 [address] RoadDublin [place] [id number] CO2 [Moles/Vol] 26 mmol/L Normal 20-29 Comprehen [facility] Internal Medicine Work Phone: Comment on above: PATIENT WAS FASTINGP ERFORMED BY: CB [facility] Nyfaep1091 Mc[address] RoadDublin [place] [id number] Creatinine [Mass/Vol] 0.81 mg/dL Normal 0.57-1.00 [facility] Work Phone: Comment on above: PATIENT WAS FASTINGP ERFORMED BY: CB [facility] Kyttdv1646 Cmghee RoadDublin [place] [id number] GFR/1.73 sq M predicted among blacks CKD-EPI (S/P/Bld) [Vol rate/Area] 83 mL/min/1.73 Normal [facility] Work Phone: Comment on above: PATIENT WAS FASTINGP ERFORMED BY: CB [facility] Yksmea0746 [address] RoadDublin [place] [id number] GFR/1.73 sq M predicted among non-blacks CKD-EPI (S/P/Bld) [Vol rate/Area] 72 mL/min/1.73 Normal [facility] Work Phone: Comment on above: PATIENT WAS FASTINGP ERFORMED BY: CB [facility] Rfdobf7003 [address] RoadDublin [place] [id number] Globulin (S) [Mass/Vol] 3.0 g/dL Normal 1.5-4.5 C omprehensive Internal Medicine Work Phone: Comment on above: PATIENT WAS FASTINGP ERFORMED BY: CB [facility] Ogghao0843 [address] RoadDublin [place] [id number] Glucose [Mass/Vol] 154 mg/dL Abnormal 65-99 [facility] Internal Medicine Work Phone: Comment on above: PATIENT WAS FASTINGP ERFORMED BY: ANGELI [facility] Ktudxl4580 [address] RoadDublin [place] [id number] Potassium [Moles/Vol] 5.3 mmol/L Abnormal 3.5-5.2 [facility] Internal Medicine Work Phone: Comment on above: PATIENT WAS FASTINGP ERFORMED BY: ANGELI [facility] Gaedre4374 [address] RoadDublin [place] [id number] Protein [Mass/Vol] 7.4 g/dL Normal 6.0-8.5 [facility] Internal Medicine Work Phone: Comment on above: PATIENT WAS FASTINGP ERFORMED BY: ANGELI LabSaint [facility] Ylqzsu1950 [address] Roadblin [place] [id number] Sodium [Moles/Vol] 143 mmol/L Normal 134-144 [facility] Internal Medicine Work Phone: Comment on above: PATIENT WAS FASTINGP ERFORMED BY: ANGELI LabSaint [facility] Ehossz1268 Mc[address] Roadblin [place] [id number] Urea nitrogen [Mass/Vol] 11 mg/dL Normal 8-27 [facility] Internal Medicine Work Phone: Comment on above: PATIENT WAS FASTINGP ERFORMED BY: LabSaint [facility] Awnyio5372 [address] Roadblin [place] [id number] Urea nitrogen/Creatinine [Mass ratio] 14 mg/mg Normal 12-28 [facility] Internal Medicine Work Phone: Comment on above: PATIENT WAS FASTINGP ERFORMED BY: [facility] Ydsmku4582 [address] RoadDublin [place] [id number] TSH (THYROID STIMULATING HOR BARRON) ([id number])Ordered By: [employer] on 06-05-2020 TSH Qn 2.590 {uIU/mL} Normal 0.450-4.50 0 [facility] Internal Medicine Work Phone: Comment on above: PATIENT WAS FASTINGP ERFORMED BY: [facility] Baccxt3801 [address] RoadDublin [place] [id number] LIPID PANEL ([id number])Ordered B y: [employer] on 02-07-2020 Cholesterol [Mass/Vol] 224 mg/dL Abnormal 100-199 Co [facility]ensive [facility] Work Phone: Comment on above: PATIENT WAS FASTINGP ERFORMED BY: ANGELI LabComauri Relifj8887 [address] RoadDublin [place] [id number] Cholesterol in HDL [Mass/Vol] 50 mg/dL Normal [facility] Work Phone: Comment on above: PATIENT WAS FASTINGP ERFORMED BY: ANGELI [facility] Qldwef4073 [address] RoadDublin [place] [id number] Cholesterol in LDL [Mass/Vol] 149 mg/dL Abnormal 0-99 [facility] Work Phone: Comment on above: PATIENT WAS FASTINGP ERFORMED BY: ANGELI LabComauri WeldonExvixq6[address] [facility] [place] [id number] Cholesterol in LDL/Cholesterol in HDL [Mass ratio] 3.0 {ratio} Normal 0.0-3.2 [facility] Work Phone: Comment on above: LDL/HDL Ratio Men Wo men 1/2 Avg.Risk 1.0 1.5 Avg.Risk 3.6 3.2 2X Avg.Risk 6.2 5.0 3X Avg.Risk 8.0 6.1 PATIENT WAS FASTINGP ERFORMED BY: ANGELI LabComauri Lhwkzs4980 [address] [facility] [place] [id number] Cholesterol in VLDL [Mass/Vol] 25 mg/dL Normal 5-40 [facility] Work Phone: Comment on above: PATIENT WAS FASTINGP ERFORMED BY: ANGELI [facility] Dhyocw2504 [address] RoadDublin [place] [id number] Triglyceride [Mass/Vol] 123 mg/dL Normal 0-149 [facility] Internal Medicine Work Phone: Comment on above: PATIENT WAS FASTINGP ERFORMED BY: ANGELI [facility] Drvspi8587 [address] RoadDublin [place] [id number] Metabolic Panel, Comprehensi ve ([id number])Ordered By: [employer] on 02-07-2020 Albumin [Mass/Vol] 4.5 g/dL Normal 3.7-4.7 [facility] Internal Medicine Work Phone: Comment on above: PATIENT WAS FASTINGP ERFORMED BY: CB [facility] Iherjf1264 [address] RoadDublin [place] [id number] Albumin/Globulin [Mass ratio] 1.6 {ratio} Normal 1.2-2.2 [facility] Work Phone: Comment on above: PATIENT WAS FASTINGP ERFORMED BY: CB [facility] Uptein4371 [address] RoadDublin [place] [id number] ALP [Catalytic activity/Vol] 91 [iU]/L Normal 39-117 [facility] Work Phone: Comment on above: PATIENT WAS FASTINGP ERFORMED BY: CB [facility] Kmaxkq4054 [address] RoadDublin [place] [id number] ALP [Catalytic activity/Vol] 91 U/L Normal 39-117 [facility] Work Phone: Comment on above: PATIENT WAS FASTINGP ERFORMED BY: [facility] Myosvn8222 [address] RoadDublin [place] [id number] ALT [Catalytic activity/Vol] 44 [iU]/L Abnormal 0-32 [facility] Work Phone: Comment on above: PATIENT WAS FASTINGP ERFORMED BY: [facility] Hapwvj5670 [address] RoadDublin [place] [id number] ALT [Catalytic activity/Vol] 44 U/L Abnormal 0-32 [facility] Work Phone: Comment on above: PATIENT WAS FASTINGP ERFORMED BY: CB [facility] Txpbmx5435 [address] RoadDublin [place] [id number] AST [Catalytic activity/Vol] 43 [iU]/L Abnormal 0-40 [facility] Work Phone: Comment on above: PATIENT WAS FASTINGP ERFORMED BY: CB [facility] Vglaaq6064 [address] RoadDublin [place] [id number] AST [Catalytic activity/Vol] 43 U/L Abnormal 0-40 [facility] Work Phone: Comment on above: PATIENT WAS FASTINGP ERFORMED BY: CB [facility] Yibjgs2740 [address] RoadDublin [place] [id number] Bilirubin [Mass/Vol] 0.4 mg/dL Normal 0.0-1.2 [facility] Work Phone: Comment on above: PATIENT WAS FASTINGP ERFORMED BY: CB [facility] Moxsnm5834 [address] RoadDublin [place] [id number] Calcium [Mass/Vol] 10.1 mg/dL Normal 8.7-10.3 [facility] Internal Medicine Work Phone: Comment on above: PATIENT WAS FASTINGP ERFORMED BY: CB [facility] Ngssqd6609 [address]Dublin [place] [id number] Chloride [Moles/Vol] 102 mmol/L Normal 96-106 [facility] Work [facility]: Comment on above: PATIENT WAS FASTINGP ERFORMED BY: CB [facility] Dggyvw3378 [address] RoadDublin [place] [id number] CO2 [Moles/Vol] 24 mmol/L Normal 20-29 [facility] Internal Medicine Work Phone: Comment on above: PATIENT WAS FASTINGP ERFORMED BY: CB [facility] Entlzb0937 [address] RoadDublin [place] [id number] Creatinine [Mass/Vol] 0.79 mg/dL Normal 0.57-1.00 [facility] Internal Medicine Work Phone: Comment on above: PATIENT WAS FASTINGP ERFORMED BY: CB [facility] Hixnzp3038 [address]hee RoadDublin [place] [id number] GFR/1.73 sq M predicted among blacks CKD-EPI (S/P/Bld) [Vol rate/Area] 85 mL/min/1.73 Normal [facility] Work Phone: Comment on above: PATIENT WAS FASTINGP ERFORMED BY: CB [facility] Xmuplc5077 [address]Dublin [place] [id number] GFR/1.73 sq M predicted among non-blacks CKD-EPI (S/P/Bld) [Vol rate/Area] 74 mL/min/1.73 Normal [facility] Internal Medicine Work Phone: Comment on above: PATIENT WAS FASTINGP ERFORMED BY: CB [facility] Nhwtfi2272 [address]Dublin [place] [id number] Globulin (S) [Mass/Vol] 2.9 g/dL Normal 1.5-4.5 [facility] Work Phone: Comment on above: PATIENT WAS FASTINGP ERFORMED BY: CB [facility] Rjxjts4200 [address]Dublin [place] [id number] Glucose [Mass/Vol] 135 mg/dL Abnormal 65-99 [facility] Internal Medicine Work Phone: Comment on above: PATIENT WAS FASTINGP ERFORMED BY: CB [facility] Vgppso5793 [address]Dublin [place] [id number] Potassium [Moles/Vol] 4.4 mmol/L Normal 3.5-5.2 [facility] Internal Medicine Work Phone: Comment on above: PATIENT WAS FASTINGP ERFORMED BY: [facility] Dlgmte7018 [address] RoadDublin [place] [id number] Protein [Mass/Vol] 7.4 g/dL Normal 6.0-8.5 [facility] Internal Medicine Work Phone: Comment on above: PATIENT WAS FASTINGP ERFORMED BY: CB [facility] Ibfoqh2537 [address] RoadDublin [place] [id number] Sodium [Moles/Vol] 141 mmol/L Normal 134-144 [facility] Internal Medicine Work Phone: Comment on above: PATIENT WAS FASTINGP ERFORMED BY: CB [facility] Axwgsd9600 [address]Dublin [place] [id number] Urea nitrogen [Mass/Vol] 13 mg/dL Normal 8-27 [facility] Internal Medicine Work Phone: Comment on above: PATIENT WAS FASTINGP ERFORMED BY: CB [facility] Jxeled2723 [address]Dublin [place] [id number] Urea nitrogen/Creatinine [Mass ratio] 16 mg/mg Normal 12-28 [facility] Internal Medicine Work Phone: Comment on above: PATIENT WAS FASTINGP ERFORMED BY: [facility]6[address] [facility] [id number] TSH (THYROID STIMULATING HOR BARRON) ([id number])Ordered By: [employer] on 02-07-2020 TSH Qn 4.560 {uIU/mL} Abnormal 0.450-4.50 0 [facility] Work Phone: Comment on above: PATIENT WAS FASTINGP ERFORMED BY: [address] [id number] Blood Glucose , Office (9400 2)on 11-06-2019 Glucose Glucometer (BldC) [Moles/Vol] 142 1 Normal [facility] Work Phone: HgA1C , Office (08530)on HbA1c (Bld) [Mass fraction] 7.1 % Normal 4.6 - 7.1 [facility] Work Phone: CBC, Platelets & Auto Diff ( [id number])Ordered By: [employer] on 10-31-2019 Basophils (Bld) [#/Vol] 0.0 {x10E3/uL} Normal 0.0-0.2 [facility] Work Phone: Comment on above: PATIENT WAS FASTINGP ERFORMED BY: [facility]6[address] [facility] [id number] Basophils (Bld) [#/Vol] 0.0 10*3/uL Normal 0.0-0.2 [facility] Work Phone: Comment on above: PATIENT WAS FASTINGP ERFORMED BY: [facility]6[address] [facility] [id number] Basophils/100 WBC (Bld) 0 % Normal C omprehensive Internal Medicine Work Phone: Comment on above: PATIENT WAS FASTINGP ERFORMED BY: [facility]6[address] [facility] [id number] Eosinophils (Bld) [#/Vol] 0.0 {x10E3/uL} Normal 0.0-0.4 [facility] Work Phone: Comment on above: PATIENT WAS FASTINGP ERFORMED BY: [facility]6[address] [facility] [id number] Eosinophils (Bld) [#/Vol] 0.0 10*3/uL Normal 0.0-0.4 [facility] Work Phone: Comment on above: PATIENT WAS FASTINGP ERFORMED BY: [facility]6370 [facility] [id number] Eosinophils/100 WBC (Bld) 0 % Normal [facility] Work Phone: Comment on above: PATIENT WAS FASTINGP ERFORMED BY: [facility]6[address] [facility] [id number] Erythrocyte distribution width (RBC) [Ratio] 14.1 % Normal 12.3-15.4 [facility] Work Phone: Comment on above: PATIENT WAS FASTINGP ERFORMED BY: [place] [id number] [facility] [id number] Hematocrit (Bld) [Volume fraction] 38.2 % Normal 34.0-46.6 [facility] Work Phone: Comment on above: PATIENT WAS FASTINGP ERFORMED BY: [facility]6[address] [facility] [id number] Hemoglobin (Bld) [Mass/Vol] 12.8 g/dL Normal 11.1-15.9 [facility] Work Phone: Comment on above: PATIENT WAS FASTINGP ERFORMED BY: [facility]6370 [facility] [id number] Immature granulocytes (Bld) [#/Vol] 0.0 {x10E3/uL} Normal 0.0-0.1 [facility] Work Phone: Comment on above: PATIENT WAS FASTINGP ERFORMED BY: LabMonica [place] 4246070 [facility] [id number] Immature granulocytes (Bld) [#/Vol] 0.0 10*3/uL Normal 0.0-0.1 [facility] Work Phone: Comment on above: PATIENT WAS FASTINGP ERFORMED BY: ANGELI [facility]Saint [facility] Wrwqrh6459 [facility] [id number] Immature granulocytes/100 WBC (Bld) 0 % Normal [facility] Work Phone: Comment on above: PATIENT WAS FASTINGP ERFORMED BY: ANGELI DawnSaint [facility] Attmze5766 [facility] [id number] Lymphocytes (Bld) [#/Vol] 1.6 {x10E3/uL} Normal 0.7-3.1 [facility] Work Phone: Comment on above: PATIENT WAS FASTINGP ERFORMED BY: ANGELI Weldonlin6370 [facility] [id number] Lymphocytes (Bld) [#/Vol] 1.6 10*3/uL Normal 0.7-3.1 [facility] Work Phone: Comment on above: PATIENT WAS FASTINGP ERFORMED BY: ANGELI Simmons Ucrwnp1280 [facility] [id number] Lymphocytes/100 WBC (Bld) 32 % Normal [facility] Work Phone: Comment on above: PATIENT WAS FASTINGP ERFORMED BY: ANGELI Weldonlin6370 [facility] [id number] MCH (RBC) [Entitic mass] 29.7 pg Normal 26.6-33.0 [facility] Work Phone: Comment on above: PATIENT WAS FASTINGP ERFORMED BY: ANGELI DawnSaint [facility] Wetwdj3431 [facility] [id number] MCHC (RBC) [Mass/Vol] 33.5 g/dL Normal 31.5-35.7 [facility] prehensive Internal Medicine Work Phone: Comment on above: PATIENT WAS FASTINGP ERFORMED BY: ANGELI Weldonlin6370 [facility] [id number] MCV (RBC) [Entitic vol] 89 fL Normal 79-97 C omprehensive Internal Medicine Work Phone: Comment on above: PATIENT WAS FASTINGP ERFORMED BY: ANGELI Coello6370 [address]ublin [place] [id number] Monocytes (Bld) [#/Vol] 0.4 {x10E3/uL} Normal 0.1-0.9 [facility] Work Phone: Comment on above: PATIENT WAS FASTINGP ERFORMED BY: ANGELI Coello6370 [address]ublin [place] [id number] Monocytes (Bld) [#/Vol] 0.4 10*3/uL Normal 0.1-0.9 [facility] Work Phone: Comment on above: PATIENT WAS FASTINGP ERFORMED BY: ANGELI Coello6370 [address]Dublin [place] [id number] Monocytes/100 WBC (Bld) 9 % Normal C omprehensive Internal Medicine Work Phone: Comment on above: PATIENT WAS FASTINGP ERFORMED BY: ANGELI Coello6370 [address]ublin [place] [id number] Neutrophils (Bld) [#/Vol] 3.0 {x10E3/uL} Normal 1.4-7.0 [facility] Work Phone: Comment on above: PATIENT WAS FASTINGP ERFORMED BY: ANGELI Coello6[address] [place] [id number] Neutrophils (Bld) [#/Vol] 3.0 10*3/uL Normal 1.4-7.0 [facility] Work Phone: Comment on above: PATIENT WAS FASTINGP ERFORMED BY: ANGELI Weldonlin6370 [address]Dublin [place] [id number] Neutrophils/100 WBC (Bld) 59 % Normal [facility] Work Phone: Comment on above: PATIENT WAS FASTINGP ERFORMED BY: ANGELI Coello6370 [address]Dublin [place] [id number] Platelets (Bld) [#/Vol] 105 {x10E3/uL} Abnormal 150-450 [facility] Work Phone: Comment on above: PATIENT WAS FASTINGP ERFORMED BY: ANGELI Coello6370 [address]Dublin [place] [id number] Platelets (Bld) [#/Vol] 105 10*3/uL Abnormal 150-450 [facility] Work Phone: Comment on above: PATIENT WAS FASTINGP ERFORMED BY: CB [facility] Zpdjfv1233 [address] RoadDublin [place] [id number] RBC (Bld) [#/Vol] 4.31 {x10E6/uL} Normal 3.77-5.28 [facility] Work Phone: Comment on above: PATIENT WAS FASTINGP ERFORMED BY: [facility] Mscdwx2090 [address] RoadDublin [place] [id number] RBC (Bld) [#/Vol] 4.31 10*6/uL Normal 3.77-5.28 [facility] Internal Medicine Work Phone: Comment on above: PATIENT WAS FASTINGP ERFORMED BY: [facility] Lmvtfb7224 [address] RoadDublin [place] [id number] WBC (Bld) [#/Vol] 5.0 {x10E3/uL} Normal 3.4-10.8 [facility] Internal Medicine Work Phone: Comment on above: PATIENT WAS FASTINGP ERFORMED BY: [facility] Zklawi4943 [address] RoadDublin [place] [id number] WBC (Bld) [#/Vol] 5.0 10*3/uL Normal 3.4-10.8 [facility] Internal Medicine Work Phone: Comment on above: PATIENT WAS FASTINGP ERFORMED BY: [facility] Zfjlhn0668 [address] RoadDublin [place] [id number] LIPID PANEL ([id number])Ordered B y: [employer] on 10-31-2019 Cholesterol [Mass/Vol] 257 mg/dL Abnormal 100-199 Co [facility] Work Phone: Comment on above: PATIENT WAS FASTINGP ERFORMED BY: [facility] Rquvff7853 [address] RoadDublin [place] [id number] Cholesterol in HDL [Mass/Vol] 50 mg/dL Normal [facility] Work Phone: Comment on above: PATIENT WAS FASTINGP ERFORMED BY: ANGELI LabDajuan WeldonXtpqwk6759 [address] [facility]blin [place] [id number] Cholesterol in LDL [Mass/Vol] 178 mg/dL Abnormal 0-99 [facility] Work Phone: Comment on above: PATIENT WAS FASTINGP ERFORMED BY: ANGELI LabDajuan WeldonIquswp0453 [address] [facility]in [place] [id number] Cholesterol in LDL/Cholesterol in HDL [Mass ratio] 3.6 {ratio} Abnormal 0.0-3.2 [facility] Work Phone: Comment on above: LDL/HDL Ratio Men Wo men 1/2 Avg.Risk 1.0 1.5 Avg.Risk 3.6 3.2 2X Avg.Risk 6.2 5.0 3X Avg.Risk 8.0 6.1 PATIENT WAS FASTINGP ERFORMED BY: ANGELI Weldonlin6370 [facility] [id number] Cholesterol in VLDL [Mass/Vol] 29 mg/dL Normal 5-40 [facility] Work Phone: Comment on above: PATIENT WAS FASTINGP ERFORMED BY: ANGELI Weldonlin6370 [facility]in [place] [id number] Triglyceride [Mass/Vol] 143 mg/dL Normal 0-149 C omprehensive Internal Medicine Work Phone: Comment on above: PATIENT WAS FASTINGP ERFORMED BY: ANGELI LabDajuan Ibsztc3304 [facility]in [place] [id number] Metabolic Panel, Comprehensi ve (70496)Ordered By: [employer] on 10-31-2019 Albumin [Mass/Vol] 4.5 g/dL Normal 3.5-4.[address] [facility] Internal Medicine Work Phone: Comment on above: PATIENT WAS FASTINGP ERFORMED BY: ANGELI Weldonlin6370 [facility] Centerblin [place] [id number] Albumin/Globulin [Mass ratio] 1.6 {ratio} Normal 1.2-2.2 [facility] Work Phone: Comment on above: PATIENT WAS FASTINGP ERFORMED BY: ANGELI [facility] Hwxmjf1906 [address] RoadDublin [place] [id number] ALP [Catalytic activity/Vol] 83 [iU]/L Normal 39-117 [facility] Work Phone: Comment on above: PATIENT WAS FASTINGP ERFORMED BY: ANGELI [facility] Eacuwa8683 [address] RoadDublin [place] [id number] ALP [Catalytic activity/Vol] 83 U/L Normal 39-117 [facility] Work Phone: Comment on above: PATIENT WAS FASTINGP ERFORMED BY: ANGELI [facility] Riftus5033 [address] RoadDublin [place] [id number] ALT [Catalytic activity/Vol] 32 [iU]/L Normal 0-32 [facility] Work Phone: Comment on above: PATIENT WAS FASTINGP ERFORMED BY: ANGELI [facility] Coaiet2998 [address] RoadDublin [place] [id number] ALT [Catalytic activity/Vol] 32 U/L Normal 0-32 [facility] Work Phone: Comment on above: PATIENT WAS FASTINGP ERFORMED BY: ANGELI [facility] Qqgthw5266 [address] RoadDublin [place] [id number] AST [Catalytic activity/Vol] 33 [iU]/L Normal 0-40 [facility] Work Phone: Comment on above: PATIENT WAS FASTINGP ERFORMED BY: ANGELI [facility] Rxhkni4521 [address] RoadDublin [place] [id number] AST [Catalytic activity/Vol] 33 U/L Normal 0-40 [facility] Work Phone: Comment on above: PATIENT WAS FASTINGP ERFORMED BY: ANGELI [facility] Pplspw7612 [address] RoadDublin [place] [id number] Bilirubin [Mass/Vol] 0.2 mg/dL Normal 0.0-1.2 [facility] Internal Medicine Work Phone: Comment on above: PATIENT WAS FASTINGP ERFORMED BY: ANGELI [facility] Blejeq7907 [address] RoadDublin [place] [id number] Calcium [Mass/Vol] 10.0 mg/dL Normal 8.7-10.3 [facility] Internal Medicine Work Phone: Comment on above: PATIENT WAS FASTINGP ERFORMED BY: ANGELI LabComauri Awqqyx3229 [address] RoadDublin [place] [id number] Chloride [Moles/Vol] 105 mmol/L Normal 96-106 Comp rehensive Internal Medicine Work Phone: Comment on above: PATIENT WAS FASTINGP ERFORMED BY: ANGELI [facility] Yegpfe3487 [address] [facility]in [place] [id number] CO2 [Moles/Vol] 18 mmol/L Abnormal 20-29 Comprehen [facility] Internal Medicine Work Phone: Comment on above: PATIENT WAS FASTINGP ERFORMED BY: ANGELI [facility] Auojku8359 Mcghee RoadNovant Health [id number] Creatinine [Mass/Vol] 0.73 mg/dL Normal 0.57-1.00 [facility] Work Phone: Comment on above: PATIENT WAS FASTINGP ERFORMED BY: ANGELI [facility] Zjrpxf6157 Mcg[address] RoadAtrium Health Carolinas Medical Centerin [place] [id number] GFR/1.73 sq M predicted among blacks CKD-EPI (S/P/Bld) [Vol rate/Area] 94 mL/min/1.73 Normal [facility] Work Phone: Comment on above: PATIENT WAS FASTINGP ERFORMED BY: ANGELI [facility] Urfyxd1223 Mcghee RoadAtrium Health Carolinas Medical Centerin [place] [id number] GFR/1.73 sq M predicted among non-blacks CKD-EPI (S/P/Bld) [Vol rate/Area] 81 mL/min/1.73 Normal [facility] Work Phone: Comment on above: PATIENT WAS FASTINGP ERFORMED BY: ANGELI [facility] Kuoced0225 Mcghee RoadAtrium Health Carolinas Medical Centerin [place] [id number] Globulin (S) [Mass/Vol] 2.9 g/dL Normal 1.5-4.5 C omprehensive Internal Medicine Work Phone: Comment on above: PATIENT WAS FASTINGP ERFORMED BY: ANGELI [facility] Cjejmh8523 [address] RoadDublin [place] [id number] Glucose [Mass/Vol] 139 mg/dL Abnormal 65-99 [facility] Internal Medicine Work Phone: Comment on above: PATIENT WAS FASTINGP ERFORMED BY: CB [facility] Maivji0555 [address] RoadDublin [place] [id number] Potassium [Moles/Vol] 4.5 mmol/L Normal 3.5-5.2 [facility] Internal Medicine Work Phone: Comment on above: PATIENT WAS FASTINGP ERFORMED BY: ANGELI [facility] Ckqlnu1834 [address] RoadDublin [place] [id number] Protein [Mass/Vol] 7.4 g/dL Normal 6.0-8.5 [facility] Internal Medicine Work Phone: Comment on above: PATIENT WAS FASTINGP ERFORMED BY: ANGELI [facility] Ftitqt6553 [address] RoadDublin [place] [id number] Sodium [Moles/Vol] 142 mmol/L Normal 134-144 [facility] Internal Medicine Work Phone: Comment on above: PATIENT WAS FASTINGP ERFORMED BY: ANGELI [facility] Ekytfk2728 Mc[address] Roadblin [place] [id number] Urea nitrogen [Mass/Vol] 15 mg/dL Normal 8-27 [facility] Internal Medicine Work Phone: Comment on above: PATIENT WAS FASTINGP ERFORMED BY: ANGELI [facility] Xhylwk4751 Mcghee RoadAtrium Health Carol[facility] Medical Centerin [place] [id number] Urea nitrogen/Creatinine [Mass ratio] 21 mg/mg Normal 12-28 [facility] Internal Medicine Work Phone: Comment on above: PATIENT WAS FASTINGP ERFORMED BY: CB [facility] Kxqdbu2422 [address] RoadDublin [place] [id number] TSH ([id number])Ordered By: Eb Arauz on 10-31-2019 TSH Qn 3.020 {uIU/mL} Normal 0.450-4.50 0 [facility] Work Phone: Comment on above: PATIENT WAS FASTINGP ERFORMED BY: ANGELI [facility] Apilao4580 [address] RoadDublin [place] [id number] Blood Glucose , Office (1996 2)Ordered By: Haseeb Sherwood on 08-28-2019 Glucose Glucometer (BldC) [Moles/Vol] 92 1 Normal [facility] Work Phone: HgA1C , Office (02726)Ordere d By: Haseeb Sherwood on 08-28-2019 HbA1c (Bld) [Mass fraction] 6.4 % Normal 4.6 - 7.1 [facility] Work Phone: TSH (THYROID STIMULATING HOR BARRON) ([id number])Ordered By: [employer] on 03-13-2019 Thyrotropin Qn 4.570 {uIU/mL} Abnormal 0.450-4.50 0 [facility] Work Phone: Comment on above: PATIENT NOT FASTINGP ERFORMED BY: ANGELI [facility] Ogxcqi3406 [facility] [id number] CBC-Complete Blood Cnt No Di ffOrdered By: [employer] on 03-07-2019 Erythrocyte distribution width Ratio (RBC) 13.5 % Normal 11.6-14.6 [facility] Work Phone: Comment on above: [facility] [address] [place], [place], [phone] Hematocrit Volume Fraction (Bld) 38.4 % Normal 37-47 [facility] Work Phone: Comment on above: [facility] [address] [place], [place], [phone] Hemoglobin mass conc (Bld) 12.8 g/dL Normal 12.0-15.0 [facility] Work Phone: Comment on above: [facility] [address] [place], [place], [phone] MCH Entitic mass (RBC) 29.2 pg Normal 27.0-32.0 Co mprehensive Internal Medicine Work Phone: Comment on above: [facility] [address] [place], [place], [phone] MCHC mass conc (RBC) 33.3 {g/gl} Normal 32-36 Com prehensive Internal Medicine Work Phone: Comment on above: [facility] K[address]ixg[address] [place], [address] MCV Entitic volume (RBC) 87.7 fL Normal 81-99 [facility] Work Phone: Comment on above: [facility] [address] [place], [address] Platelet mean volume Entitic volume (Bld) 11.3 fL Normal 6.2-12.0 Comprehensi ve Internal Medicine Work Phone: Comment on above: [facility] [address]agmj[address] [place], [address] Platelets #/vol (Bld) 111 10*3/uL Abnormal 150-450 Co [facility]erehens[facility] Internal Medicine Work Phone: Comment on above: [facility] [address] [place], [address] RBC #/vol (Bld) 4.38 {M/mm3} Normal 4.2-5.4 Compreh ensive Internal Medicine Work Phone: Comment on above: [facility] K[address] [place], [address] WBC #/vol (Bld) 5.5 10*3/uL Normal 4.4-11.0 Comprehe nsive Internal Medicine Work Phone: Comment on above: [facility] [address] [place], [address] CBC-Complete Blood Cnt No Diff 43.3 fL Normal 35.1-43.9 [facility] Work Phone: Comment on above: [facility] I[address]ue[address] [place], [address] Hemoglobin V6fUtvgtug By: stem Relations Director on 03-07-2019 Hemoglobin A1c/Hemoglobin.total mass fraction (Bld) 8.1 % Abnormal 4.2-6.3 Comprehensiv e Internal Medicine Work Phone: Comment on above: [facility] [address] [place], [place], [phone] Partial Thromboplast TimeOrd ered By: [employer] on 03-07-2019 aPTT Coag time (PPP) 29.2 s Normal 24.1-36.2 [facility] Work Phone: Comment on above: [facility] [address] [place], [address] Prothrombin Time w/INROrdere d By: [employer] on 03-07-2019 INR Coag RelTime (PPP) 1.0 {INR} Normal Co [facility] Internal Medicine Work Phone: Comment on above: [facility] [address] [place], [address] Prothrombin time (PT) Coag time (PPP) 13.4 s Normal 11.7-14.9 [facility] Work Phone: Comment on above: [facility] [address] [place], [address] Thyroid Stim Hormone (TSH)Or dered By: [employer] on 03-07-2019 Thyrotropin Qn 3.09 {uIU/mL} Normal 0.358-3.74 Compreh ensive Internal Medicine Work Phone: Comment on above: [facility] [address] [place], [address] Type AND ScreenOrdered By: Jarrod kilgoretem Relations Director on 03-07-2019 ABO and Rh group Nom (Bld) O POSITIVE Normal [facility] Work Phone: Comment on above: Surgery Date: Date of Last Transfusion (if within last 3 months) NHx of Preganancy in last 3 Months NoEver experience any problems with transfusion(s)? NHx of Transfusion in last 3 Months NReason for Type AND Screen/Red Cells: SURGERYTime: 0800SURGICAL PROCEDURE: HS D AND [facility] [address] [place], [address] HgA1C , Office (49055)Ordere d By: Federica Olivarez on 01-19-2019 Hemoglobin A1c/Hemoglobin.total mass fraction (Bld) 7.2 % Abnormal 4.6 - 7.1 Comprehensiv e Internal Medicine Work Phone: Comment on above: 7.2 TSH (THYROID STIMULATING HOR BARRON) ([id number])Ordered By: [employer] on 01-13-2019 Thyrotropin Qn 4.590 {uIU/mL} Abnormal 0.450-4.50 0 [facility] Work Phone: Comment on above: get done week of Nov 21; PATIENT NOT FASTINGPERFORMED BY: [facility] Pnozmf1139 [facility] [id number] Bedside GlucoseOrdered By: Jarrod ystem Relations Director on 12-05-2018 Bedside Glucose 129 mg/dL Abnormal 70-110 Comprehen sive Internal Medicine Work Phone: Comment on above: MANAGEMENT OF PATIEN T CARE PER NURSING PROTOCOL [facility] LaboratoryPoint of Ptup[address] [place] [address] Bedside Glucose 117 mg/dL Abnormal 70-110 [facility]prehs[facility] Internal Medicine Work Phone: Comment on above: MANAGEMENT OF PATIEN T CARE PER NURSING PROTOCOL [facility] LaboratoryPoint of Snhh[address] [facility] [place] [address] IMMUNOHISTOCHEMISTRYOrdered By: [employer] on 12-05-2018 IMMUNOHISTOCHEMISTRY See Note Normal Comp rehensive Internal Medicine Work Phone: Comment on above: Patient: KARISHMA VILLALOBOS : 1945 (73/F) Acct Num: [id number] Phys: Rob CLEMONS,Zee Unit Num: [id number] [place] [facility] [place]: [id number] Received: 12/07/18 - 1003 Spec Type: IMMUNO THIS IS A CORRECTED REPORT TISSUES 1 TISSUES: A. Axillary lymph node, NOS B. Axillary lymph node, NOS SPECIMEN INFORMATION: Tissue Source: A - Right axillary lymph nodes, lymphadenectomy, B - Lymph node tissue Clinical Info: Right breast cancer Specimen Number: [id number] A1-5, B CPT code: 78580 x2, 42494 x5 METHODOLOGY: Deparaffinized sections of prefer/formalin-fixed tissue or PAP/DQ stained slides are incubated with monoclonal/polyclonal antibodies/oligonucleotide probes. Localization is made via biotin free immunoperoxidase method. Appropriate controls are performed and reacted as expected. Results on target cell population are indicated in the following table: RESULTS: ANTIBODY / CLONE RESULT Block A1 AE1-3 (AE1/AE3/PCK26) negative Block A2 AE1-3 (AE1/AE3/PCK26) negative Block A3 AE1-3 (AE1/AE3/PCK26) negative Block A4 AE1-3 (AE1/AE3/PCK26) negative Block A5 AE1-3 (AE1/AE3/PCK26) negative Block B CK7 (OV-TL12/30) negative AE1-3 (AE1/AE3/PCK26) negative These tests were developed and their performance characteristics determined by [facility]. They may not have been cleared or approved by the U.S. Food and Drug Administration. The FDA has determined that such clearance or approval is not necessary. INTERPRETATION: A. Right axillary lymph nodes, lymphadenectomy: Five out of five lymph nodes negative for carcinoma. AM:mohit 12/07/18 B. Lymph node tissue: Two fragments of fatty lymph nodes negative for carcinoma. AM:mohit 12/08/18 PHYSICIAN AND INSTITUTION [place] [address] Signed David Hussein, DO 12/08/18 Patient: KARISHMA VILLALOBOS : 1945 (73/F) Acct Num: [id number] Phys: Rob CLEMONSZee Unit Num: [id number] [place] [facility] [place]: [id number] Received: 12/05/18 - 1259 Spec Type: AX NODE BX THIS IS A CORRECTED REPORT TISSUES 1 TISSUES: A. Axillary lymph node, NOS B. Axillary lymph node, NOS COMMENT Immunohistochemistry ([id number]) supports the above diagnosis. The lymph nodes show fatty replacement. Clinical correlation is suggested. Please make reference to case [id number] in which right partial breast contained two foci of invasive carcinoma measuring 1 and 0.7 cm in greatest dimensions respectively. Case has been reviewed in consultation with Dr. Chirinos who concurs with the abovediagnosis. IDC:SJ FROZEN SECTION DIAGNOSIS A. Right axillary lymph nodes, lymphadenectomy: Five fatty lymph nodes with no evidence of carcinoma. AM:mohit 12/05/18 GROSS DESCRIPTION A - Received fresh for frozen section consultation labeled with the patient's name is a specimen designated right axillary lymph nodes. The specimen consists of an irregular fragment of morales-yellow fibrofatty tissue measuring 4 x 3 x 2 cm. Dissection reveals five fatty nodules ranging in size from 1 to 3 cm. The nodules are submitted in their entirety for frozen section consultation in five blocks. / AM:mohit 12/05/18 B - Received fresh labeled with the patient's name is a specimen designated lymph tissue right. The specimen consists of two pieces of yellow adipose tissue that in aggregate measure 1 x 1 x 0.5 cm. One of the pieces is inked andbisected. The entire specimen is submitted in one cassette. / SJ:mohit 12/07/18 TC:5 CPT: 98226, 07563, 08491 x4 HEADER OPERATION: Biopsy, axillary node, Neoprobe PRE-OP DIAGNOSIS: Right breast cancer TISSUE SUBMITTED: A - Right axillary lymph nodes sent for frozen at 1253, B - Lymph tissue sent fresh for pathology MICROSCOPIC DESCRIPTION Slides are reviewed. MICROSCOPIC DIAGNOSIS A. Right axillary sentinel lymph nodes, biopsy: Five out of five lymph nodes negative for carcinoma. AM:mohit 12/07/18 B. Right axillary lymph node, biopsy: Two fragments of lymphoid tissue with fatty replacement. No evidence of malignancy. AM:mohit 12/08/18 Signed David Hussein DO 12/08/18 [facility] [id number] [place], [place], [address] Patient: KARISHMA VILLALOBOS : 1945 (73/F) Acct Num: [id number] Phys: Zee Rivas MD Unit Num: [id number] [place] [facility] [place] Specimen: [id number] Received: 12/05/18 - 125 Spec Type: AX NODE BX THIS IS A CORRECTED REPORT TISSUES 1 TISSUES: A. Axillary lymph node, NOS B. Axillary lymph node, NOS COMMENT Immunohistochemistry ([id number]) supports the above diagnosis. The lymph nodes show fatty replacement. Clinical correlation is suggested. Please make reference to case [id number] in which right partial breast contained two foci of invasive carcinoma measuring 1 and 0.7 cm in greatest dimensions respectively. Case has been reviewed in consultation with Dr. Chirinos who concurs with the abovediagnosis. IDC:SJ FROZEN SECTION DIAGNOSIS A. Right axillary lymph nodes, lymphadenectomy: Five fatty lymph nodes with no evidence of carcinoma. AM:mohit 12/05/18 GROSS DESCRIPTION A - Received fresh for frozen section consultation labeled with the patient's name is a specimen designated right axillary lymph nodes. The specimen consists of an irregular fragment of morales-yellow fibrofatty tissue measuring 4 x 3 x 2 cm. Dissection reveals five fatty nodules ranging in size from 1 to 3 cm. The nodules are submitted in their entirety for frozen section consultation in five blocks. / AM: 12/05/18 B - Received fresh labeled with the patient's name is a specimen designated lymph tissue right. The specimen consists of two pieces of yellow adipose tissue that in aggregate measure 1 x 1 x 0.5 cm. One of the pieces is inked andbisected. The entire specimen is submitted in one cassette. / SJ:mohit 12/07/18 TC:5 CPT: 90916, 00533, 54703 x4, 09907 HEADER OPERATION: Biopsy, axillary node, Neoprobe PRE-OP DIAGNOSIS: Right breast cancer TISSUE SUBMITTED: A - Right axillary lymph nodes sent for frozen at 1253, B - Lymph tissue sent fresh for pathology MICROSCOPIC DESCRIPTION Slides are reviewed. MICROSCOPIC DIAGNOSIS A. Right axillary sentinel lymph nodes, biopsy: Five out of five lymph nodes negative for carcinoma. AM: 12/07/18 B. Right axillary lymph node, biopsy: Two fragments of lymphoid tissue with fatty replacement. No evidence of malignancy. AM: 12/08/18 Signed David Hussein DO 12/08/18 AXILLARY NODE BIOPSYOrdered By: [employer] on 10-10-2018 AXILLARY NODE BIOPSY See Note Normal Comp rehensive Internal Medicine Work Phone: Comment on above: Patient: KARISHMA VILLALOBOS : 1945 (73/F) Acct Num: [id number] Phys: Zee Rivas MD Unit Num: [id number] Loc: [facility] [place] Specimen: [id number] Received: 10/10/181336 Spec Type: AX NODE BX TISSUES 1 TISSUES: A. Axillary lymph node, NOS B. Left breast, NOS C. Left breast, NOS COMMENT A. The lymph nodes are negative for metastatic carcinoma on multiple H AND E levels and immunohistochemical stains for cytokeratins ([id number]). The smallest lymph node is completed exhausted during frozen section diagnosis (block #2). C. Immunohistochemistry ([id number]) supports the above diagnosis. This portion of the specimen is sent to [facility] for expert opinion and reviewedby Dr. Rivas and above diagnosis is rendered. Complete report is viewable in thepatient's EMR. Case has been reviewed in consultation with Dr. Hussein who concurs with the above diagnosis. IDC:AM FROZEN SECTION DIAGNOSIS A. Left axillary lymph nodes, biopsy: Four out of four lymph nodes, negative for metastatic carcinoma. SJ:cc 10/10/18 GROSS DESCRIPTION A. Received fresh for frozen section diagnosis labeled with the patient's name is a specimen designated left axillary sentinel lymph node. The specimen consists of two pieces of yellow-adipose tissue that measure in aggregate 5 x 3 x 0.5 cm, containing nodule consistent with lymph node. Four lymph nodes are identified measuring 0.5 to 1.5 cm in greatest dimension. The lymph nodes are submitted entirely for frozen section diagnosis as follows: 1 - frozen section one lymph node, 2 - frozen section, two lymph nodes, one lymph node inked black,3 - frozen section, one bisected lymph node. SJ:sp 10/10/18 B. Received fresh for frozen section for intraoperative consultation labeled with the patient's name is a specimen designated left breast mass. The specimen consists of a piece of fibroadipose tissue with needle localization measuring 9 x 7 x 3 cm. A piece of the skin is noted anteriorly which measures 2.5 x 0.3 cm. The specimen is oriented as one long suture posterior border, 2 long suture lateral, skin anteriorly, one short superior. The specimen is inked as follows: anterior margin - yellow, posterior margin - black, superior margin - blue, inferior margin - green, medial margin - red and lateral margin - orange. Serial section reveals a biopsy cavity measuring 1 cm in greatest dimension with surrounding indurated tissue. This cavity is 0.2 cm away from theclosest inferior margin. This information is conveyed to the surgeon intraoperatively. Sections of the rest of the specimen reveals morales-yellow adipose cut surface mixed with fibrous area. Coupon Manifest Clerk sections are submitted in 10 cassettes as follows: 1 - skin adjacent anterior margin and perpendicular posterior margin, 2 - perpendicular medial, lateral and superior margins, 3-6 - biopsy cavity with surrounding indurated tissue, entirely submitted and including adjacent perpendicular inferior margin, 7 - insurance sales representative section adjacent to the biopsy cavity, 810 - insurance sales representative sections away from the cavity. Sections will be submitted after additional fixation. C. Received fresh and post fixed in formalin labeled with the patient's name bryce specimen designated right breast mass. The specimen consists of a piece of morales-yellow fibroadipose with needle localization measuring 9 x 6 x 2.5 cm. No orientation is provided. Sections reveal morales-yellow adipose cut surfaces with two biopsy cavities of the surrounding adipose tissue. No obvious mass lesion is identified. Coupon Manifest Clerk sections are submitted in 12 cassettes as follows:1-5 - biopsy cavity with surrounding tissue, 6-12 - second biopsy cavity with surrounding tissue. Sections will be submitted after additional fixation. Ezekiel 10/11/18 TC: 0 CPT: 93089 x3, 17968, 72975d9, 07670w4 HEADER OPERATION: Right and left breast lumpectomy via wire localization PRE-OP DIAGNOSIS: Newly diagnosed left breast cancer, atypical lesion TISSUE SUBMITTED: A. Left axillary sentinel lymph node, B. Left breast mass, C.Right breast mass MICROSCOPIC DESCRIPTION Slides are reviewed. MICROSCOPIC DIAGNOSIS A. Left axillary sentinel lymph node, biopsy: 4 out of 4 lymph nodes, negative for metastatic carcinoma. See comment. B. Left breast mass, lumpectomy with needle localization: Well differentiated invasive ductal carcinoma. See cancer summary below. C. 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 See comment. CHASE:blane/mohit 10/21/18 INVASIVE BREAST CANCER SUMMARY (Specimen A AND B): Specimen - partial breast Procedure - excision with wire-guided localization Lymph node sampling - sentinel lymph nodes Specimen integrity - single intact specimen Specimen size - 9 x 7 x 3 cm Specimen laterality - left Tumor site - not specified Tumor size - 0.9 x 0.9 cm (measured microscopically) Tumor focality - single focus of invasive carcinoma Macroscopic and Microscopic extent of tumor: Skin - invasive carcinoma did not invade into the dermis or epidermis Nipple - not applicable Skeletal muscle - no skeletal muscle is present Ductal carcinoma in situ (DCIS) - no ductal carcinoma in situ is present Lobular carcinoma in situ (LCIS) - not identified Histologic type of invasive ca - invasive ductal carcinoma (no special type) Histologic grade: Midland grade: histologic score Glandular/tubular differentiation - score 2 Nuclear pleomorphism - score 1 Mitotic count - score 1 Overall grade - 1 (score of 4) Margins: Margins uninvolved by invasive carcinoma: The tumor is 0.2 cm away from the closest inferior margin. Treatment effect: response to presurgical (neoadjuvant) therapy - no known presurgical therapy. Lymph-Vascular invasion - not identified. Dermal lymph-vascular invasion - not identified. Lymph nodes: Number of sentinel lymph nodes examined - 4 Total number of lymph nodes examined (sentinel and nonsentinel) - 4 Number of lymph nodes with macrometastases, micrometastases, and isolated tumor cells - 0 Method of evaluation of sentinel lymph nodes - H AND E, multiple levels, and IHC. Additional pathologic findings - Fibrocystic changes. - Changes consistent with previous biopsy site. Ancillary studies: (previously performed at [facility], [id number]) ER - positive (95%, strong) LA - positive (95%, moderate) Gzk6mxb - negative (0) Microcalcifications - present in nonneoplastic tissue, medial calcification blood vessel wall Clinical history - Please make reference to previous specimen from [facility] [id number] left breast, needle core biopsy diagnosis of invasive ductal carcinoma, nuclear grade 1. PATHOLOGIC STAGE: pT1b, pN0 (sn), MX INVASIVE BREAST CANCER SUMMARY (SPECIMEN C): Specimen - partial breast Procedure - excision with wire-guided localization Lymph node sampling - No lymph node present. Specimen integrity - single intact specimen Specimen size - 9 x 6 x 2.5 cm Specimen laterality - right Tumor site - not specified Tumor size - two foci Larger focus - 1 x 0.7 cm Smaller focus - 0.7 x 0.7 cm (both measured microscopically) Tumor focality - two foci of invasive carcinoma Macroscopic and Microscopic extent of tumor: Skin - skin is not present. Nipple - not applicable Skeletal muscle - no skeletal muscle present Ductal carcinoma in situ (DCIS) - focal ductal carcinoma in situ is present. Extensive intraductal component (EIC) - negative Estimated size (extent) of DCIS - <5% Architectural patterns - solid, cribriform pattern Nuclear grade - grade 2 Necrosis - not identified Lobular carcinoma in situ (LCIS) - not identified Histologic type of invasive carcinoma - invasive ductal carcinoma with focal cribriform and papillary features. Histologic grade: Duane grade: Glandular/tubular differentiation - score 3 Nuclear pleomorphism - score 2 Mitotic count - score 1 Overall grade - 2 (score of 6) Margins: Margins uninvolved by invasive carcinoma and ductal carcinoma in situ. Both invasive carcinoma and ductal carcinoma in situ, is 0.1 cm away from the closest margin. Treatment effect: Response to presurgical (neoadjuvant) therapy - no known presurgical therapy. Lymph-Vascular invasion - not identified Dermal lymph-vascular invasion - not applicable Lymph nodes - No lymph nodes submitted or found. Distant metastasis - not applicable Additional pathologic findings - intraductal hyperplasia with focal atypia. Complex atypical papillary lesion. Ancillary studies: ([id number]) ER - positive (<95%, strong) LA - positive (<95%, strong) Tvg3vzb - negative (0) Microcalcifications - present Clinical history - Please make reference to previous specimen ([id number]) right breast, needle localization biopsy from [facility] diagnosis of fragments of atypical papillary lesion and atypical lobular hyperplasia. PATHOLOGIC STAGE: pT1c(n) pNX MX The above summary is in compliance with [employer] Path[employer] (CAP) Cancer Protocols Checklist and [place] Joint Committee on Cancer (AJCC), Staging Manual, 8th Ed. Signed Cong Chirinos 10/21/18 [facility] [address] [place], [address] Bedside GlucoseOrdered By: Jarrod ystem Relations Director on 10-10-2018 Bedside Glucose 132 mg/dL Abnormal 70-110 [facility] Internal Medicine Work Phone: Comment on above: MANAGEMENT OF PATIEN T CARE PER NURSING PROTOCOL [facility] LaboratoryPoint of [id number] [place] [address] Bedside Glucose 125 mg/dL Abnormal 70-110 [facility] Internal Medicine Work Phone: Comment on above: MANAGEMENT OF PATIEN T CARE PER NURSING PROTOCOL [facility] LaboratoryPoint of [address] [place] [address] IMMUNOHISTOCHEMISTRYOrdered By: [employer] on 10-10-2018 IMMUNOHISTOCHEMISTRY See Note Normal Comp rehensive Internal Medicine Work Phone: Comment on above: Patient: KARISHMA VILLALOBOS : 1945 (73/F) Acct Num: [id number] Phys: Zee Rivas MD Unit Num: [id number] Loc: [facility] [place] Specimen: [id number] Received: 10/13/181217 Spec Type: IMMUNO TISSUES 1 TISSUES: A. Axillary lymph node, NOS C. Right breast, NOS SPECIMEN INFORMATION: Tissue Source: A. Left axillary sentinel lymph node, C. Right breast mass Clinical Info: Newly diagnosed left breast cancer, atypical lesion Specimen Number: [id number] A1, A2, A3, C3, C9, C11 CPT code: 10999 x2, 51991 x19, 62514 x3 METHODOLOGY: Deparaffinized sections of prefer/formalin-fixed tissue or PAP/DQ stained slides are incubated with monoclonal/polyclonal antibodies/oligonucleotide probes. Localization is made via biotin free immunoperoxidase method. Appropriate controls are performed and reacted as expected. Results on target cell population are indicated in the following table: RESULTS: ANTIBODY / CLONE RESULT Block A1 AE1-3 (AE1/AE3/PCK26) negative CK7 (OV-TL12/30) negative Block A2 AE1-3 (AE1/AE3/PCK26) negative CK7 (OV-TL12/30) negative Block A3 AE1-3 (AE1/AE3/PCK26) negative CK7 (OV-TL12/30) negative Block C3 P40 (BC28) negative Calponin-1 (HV530F) negative E-Cad (ECH-6) positive CK8 (97ktogX32) positive CK5-6 (D5 AND 1684) negative Ki-67 (30-9) positive, low P53 (DO-7) negative MORPHOMETRIC ANALYSIS ER (clone 6F11) >95%, strong LA (clone 16/1E2) >95% strong Her-2Neu (clone CB11) 0 Block C9 P40 (BC28) negative Calponin-1 (XK872F) negative E-Cad (ECH-6) positive CK8 (00azaaF68) positive Block C11 P40 (BC28) negative Calponin-1 (XI463X) negative E-Cad (ECH-6) positive CK8 (62eormY74) positive The prognostic test for HER2 is performed on formalin-fixed paraffin embedded tissue. A 3+ (positive) staining pattern is defined as intense, homogeneous, complete, circumferential membranous staining in >10% of contiguous tumor cells. A similar weak (2+) staining pattern is interpreted as equivocal. STEPHEN follow-up testing is recommended for all equivocal cases. Positivity/negativity for ER/LA is reported if > or < 1% of the tumor cells are immuno- reactive, respectively. The ASCO/CAP criteria is used for scoring. Reference: Journal of Clinical Oncology, 2013; 31:9074-1596 AND 2009; 16:4746-0222. Duration of fixation: __ Hrs; Sample Adequate: Yes. These assays have not been validated on decalcified tissues. Results should beinterpreted with caution given the likelihood of false negativity on decalcifiedspecimens. These tests were developed and their performance characteristics determined by [facility]. They may not have been cleared or approved by the U.S. Food and Drug Administration. The FDA has determined that such clearance or approval is not necessary. INTERPRETATION: A. Left axillary sentinel lymph nodes, biopsy: Four out of four lymph nodes negative for metastatic carcinoma. C. 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 Positive for estrogen receptors (favorable prognostic indicator). Positive for progesterone receptors (favorable prognostic indicator). Negative for overexpression of VOD9rer. SJ:mohit 10/21/18 PHYSICIAN AND INSTITUTION [address] [address] Signed Cong Chirinos 10/21/18 [facility] [address] [place], [place], [id number] HgA1C , Office ([phone])Ordere d By: Myra Fowler on 10-05-2018 Hemoglobin A1c/Hemoglobin.total mass fraction (Bld) 7.3 % Abnormal 4.6 - 7.1 Comprehensiv e Internal Medicine Work Phone: [id number] ([phone])Ordered By: [employer] on 09-30-2018 AFP.tumor marker mass conc 4.1 ng/mL Normal 0.0-8.3 [facility] Work Phone: Comment on above: Nora ECLIA methodol ogy Aug 2018; PATIENT WA S FASTINGPERFORMED BY: [employer]6[address]Dublin [place] [id number] CALCIFEDIOL (06258)Ordered B y: [employer] on 09-30-2018 25-Hydroxyvitamin D2+25-Hydroxyvitamin D3 mass conc 46.1 ng/mL Normal 30.0-100.0 [facility] Work Phone: Comment on above: Vitamin D deficiency has been defined by the Gordon ofC[facility] Hospital[facility] and an Endocrine Society practice guideline as alevel of serum 25-OH vitamin D less than 20 ng/mL (1,2).The Endocrine Society went on to further define vitamin Dinsufficiency as a level between 21 and 29 ng/mL (2).1. IOM (Gordon of Medicine). 2010. Dietary reference intakes for calcium and D. [place]: The National Academies Press.2. Ace MF, [place], Cynthia COFFMAN, et al. Evaluation, treatment, and prevention of vitamin D deficiency: an Endocrine Society clinical practice guideline. JCEM. 2010; 96(7):1911-30. August 2018; EMILEE Gilbert WAS FASTINGPERFORMED BY: [employer] Myxztj[address] RoadPassivSystemsblin [place] [id number] Metabolic Panel, Comprehensi ve (44685)Ordered By: [employer] on 09-30-2018 Albumin mass conc 4.5 g/dL Normal 3.5-4.8 Compreh ensive Internal Medicine Work Phone: Comment on above: August 2018; EMILEE Gilbert WAS FASTINGPERFORMED BY: [employer]Dublin [place] [id number] Albumin/Globulin mass ratio 1.5 {ratio} Normal 1.2-2.2 [facility] Work Phone: Comment on above: August 2018; EMILEE Gilbert WAS FASTINGPERFORMED BY: [employer]Dublin [place] [id number] ALP [Catalytic activity/Vol] 83 U/L Normal 39-117 [facility] Internal Medicine Work Phone: Comment on above: August 2018; EMILEE T WAS FASTINGPERFORMED BY: CB [facility] [address] RoadDublin [place] [id number] ALP enzyme act/vol 83 [iU]/L Normal 39-117 [facility] Internal Medicine Work Phone: Comment on above: August 2018; PATIJERAMIE T WAS FASTINGPERFORMED BY: CB [facility] [address]Dublin [place] [id number] ALT [Catalytic activity/Vol] 54 U/L Abnormal 0-32 [facility] Internal Medicine Work Phone: Comment on above: August 2018; PATIJERAMIE T WAS FASTINGPERFORMED BY: [facility] [address]Dublin [place] [id number] ALT enzyme act/vol 54 [iU]/L Abnormal 0-32 [facility] Internal Medicine Work Phone: Comment on above: August 2018; PATIJERAMIE T WAS FASTINGPERFORMED BY: [facility] [address]Dublin [place] [id number] AST [Catalytic activity/Vol] 50 U/L Abnormal 0-40 [facility] Internal Medicine Work Phone: Comment on above: August 2018; EMILEE T WAS FASTINGPERFORMED BY: [facility] Ywlobo[address]Dublin [place] [id number] AST enzyme act/vol 50 [iU]/L Abnormal 0-40 [facility] Internal Medicine Work Phone: Comment on above: August 2018; PATIJERAMIE T WAS FASTINGPERFORMED BY: [facility] [address]wxz[address]Dublin [place] [id number] Bilirubin mass conc 0.4 mg/dL Normal 0.0-1.2 [facility] Internal Medicine Work Phone: Comment on above: August 2018; EMILEE T WAS FASTINGPERFORMED BY: CB [facility] [address]Dublin [place] [id number] Calcium mass conc 9.9 mg/dL Normal 8.7-10.3 Compreh ensive Internal Medicine Work Phone: Comment on above: August 2018; EMILEE Gilbert WAS FASTINGPERFORMED BY: CB [facility] W[address]obg[address]hee RoadAtrium Health Carolinas Medical Centerin [place] [id number] Chloride molar conc 105 mmol/L Normal 96-106 Compr ehensive Internal Medicine Work Phone: Comment on above: August 2018; EMILEE Gilbert WAS FASTINGPERFORMED BY: CB [facility] [address] [facility] [id number] CO2 molar conc 21 mmol/L Normal 20-29 Comprehens michael Internal Medicine Work Phone: Comment on above: August 2018; EMILEE Gilbert WAS FASTINGPERFORMED BY: CB [facility] Wrtfvt[address] Mcg[address] RoadNovant Health [id number] Creatinine mass conc 0.67 mg/dL Normal 0.57-1.00 Comp rehensive Internal Medicine Work Phone: Comment on above: August 2018; EMILEE Gilbert WAS FASTINGPERFORMED BY: [facility] Muafld9785 Mcghee RoadNovant Health [id number] GFR/1.73 sq M predicted among blacks CKD-EPI vol rate/area (S/P/Bld) 101 mL/min/1.73 Normal Comprehe nsive Internal Medicine Work Phone: Comment on above: August 2018; EMILEE Gilbert WAS FASTINGPERFORMED BY: CB [facility] Rkrrjo1205 [address] RoadAtrium Health Carol[facility] Medical Centerin [place] [id number] GFR/1.73 sq M predicted among non-blacks CKD-EPI vol rate/area (S/P/Bld) 87 mL/min/1.73 Normal [facility] Work Phone: Comment on above: August 2018; EMILEE Gilbert WAS FASTINGPERFORMED BY: CB [facility] Yylvob9389 [address] [facility] [id number] Globulin Calculated mass conc (S) 3.1 g/dL Normal 1.5-4.5 [facility] Work Phone: Globulin mass conc (S) 3.1 g/dL Normal 1.5-4.5 Co mprehensive Internal Medicine Work Phone: Comment on above: August 2018; EMILEE Gilbert WAS FASTINGPERFORMED BY: CB [facility] Joarzc0369 [address] RoadDublin [place] [id number] Glucose mass conc 150 mg/dL Abnormal 65-99 Compreh ensive Internal Medicine Work Phone: Comment on above: August 2018; EMILEE Gilbert WAS FASTINGPERFORMED BY: CB [facility] Ioodcd5865 Mcghee RoadDuin [place] [id number] Potassium molar conc 4.8 mmol/L Normal 3.5-5.2 Comp rehensive Internal Medicine Work Phone: Comment on above: August 2018; EMILEE Gilbert WAS FASTINGPERFORMED BY: CB [facility] Ztlxsa4402 [address] RoadDuin [place] [id number] Protein mass conc 7.6 g/dL Normal 6.0-8.5 Compreh ensive Internal Medicine Work Phone: Comment on above: August 2018; EMILEE Gilbert WAS FASTINGPERFORMED BY: CB [facility] Apildp6990 [address] [facility] HospitalDuin [place] [id number] Sodium molar conc 142 mmol/L Normal 134-144 Compreh ensive Internal Medicine Work Phone: Comment on above: August 2018; EMILEE Gilbert WAS FASTINGPERFORMED BY: CB [facility] Nebzup[address] [facility] [place] [id number] Urea nitrogen mass conc 13 mg/dL Normal 8-27 C omprehensive Internal Medicine Work Phone: Comment on above: August 2018; EMILEE Gilbert WAS FASTINGPERFORMED BY: CB [facility] Kcjgvv7693 [address] [facility] HospitalDuin [place] [id number] Urea nitrogen/Creatinine mass ratio 19 mg/mg Normal 12-28 [facility] Work Phone: Comment on above: August 2018; EMILEE Gilbert WAS FASTINGPERFORMED BY: CB [facility] Uqwdnz6061 [address] [facility]in [place] [id number] TSH (THYROID STIMULATING HOR BARRON) ([id number])Ordered By: [employer] on 09-30-2018 Thyrotropin Qn 5.560 {uIU/mL} Abnormal 0.450-4.50 0 [facility] Work Phone: Comment on above: August 2018; EMILEE Gilbert WAS FASTINGPERFORMED BY: ANGELI [employer]mauri Zfkdxi9919 [facility] [id number] Blood Glucose , Office (2996 2)Ordered By: Haseeb Sherwood on 06-14-2018 Glucose Glucometer molar conc (BldC) 115 1 Normal [facility] Work Phone: CALCIFEDIOL ([id number])Ordered B y: [employer] on 06-14-2018 25-Hydroxyvitamin D2+25-Hydroxyvitamin D3 mass conc 33.0 ng/mL Normal 30.0-100.0 [facility] Work Phone: Comment on above: Vitamin D deficiency has been defined by the Gordon ofMedicine and an Endocrine Society practice guideline as alevel of serum 25-OH vitamin D less than 20 ng/mL (1,2).The Endocrine Society went on to further define vitamin Dinsufficiency as a level between 21 and 29 ng/mL (2).1. IOM (Gordon of Medicine). 2010. Dietary reference intakes for calcium and D. [place]: The National Academies Press.2. Ace MF, [place], Cynthia COFFMAN, et al. Evaluation, treatment, and prevention of vitamin D deficiency: an Endocrine Society clinical practice guideline. JCEM. 2010; 96(7):1911-30. PATIENT NOT FASTINGP ERFORMED BY: ANGELI [employer]6370 [facility] [id number] HgA1C , Office ([id number])Ordere d By: Haseeb Sherwood on 06-14-2018 Hemoglobin A1c/Hemoglobin.total mass fraction (Bld) 6.9 % Normal 4.6 - 7.1 Comprehensiv e Internal Medicine Work Phone: Metabolic Panel, Comprehensi ve (60794)Ordered By: [employer] on 06-14-2018 Albumin mass conc 4.6 g/dL Normal 3.5-4.8 Compreh ensive Internal Medicine Work Phone: Comment on above: PATIENT NOT FASTINGP ERFORMED BY: ANGELI [facility] Kkgzuv[address] [facility]in [place] [id number] Information: [id number] Albumin/Globulin mass ratio 1.5 {ratio} Normal 1.2-2.2 [facility] Work Phone: Comment on above: PATIENT NOT FASTINGP ERFORMED BY: [facility] Dapkuz1459 [address] [facility] [id number] Information: [id number] ALP [Catalytic activity/Vol] 93 U/L Normal 39-117 [facility] Medicine Work Phone: Comment on above: PATIENT NOT FASTINGP ERFORMED BY: LabCoHunterdon Medical CenterUqkrnl2273 [address] [facility] [id number] Information: [id number] ALP enzyme act/vol 93 [iU]/L Normal 39-117 [facility] Internal Medicine Work Phone: Comment on above: PATIENT NOT FASTINGP ERFORMED BY: [facility] Gzwvia1529 [address] [facility] [id number] Information: [id number] ALT [Catalytic activity/Vol] 73 U/L Abnormal 0-32 [facility] Work Phone: Comment on above: PATIENT NOT FASTINGP ERFORMED BY: [facility] Jjxlry0603 [address] [facility] [id number] Information: [id number] ALT enzyme act/vol 73 [iU]/L Abnormal 0-32 [facility] Internal Medicine Work Phone: Comment on above: PATIENT NOT FASTINGP ERFORMED BY: CB [facility] Xxrcmr7382 [address] [facility]in [place] [id number] Information: [id number] AST [Catalytic activity/Vol] 78 U/L Abnormal 0-40 [facility] Medicine Work Phone: Comment on above: PATIENT NOT FASTINGP ERFORMED BY: [facility] Jttrie[address]270 [address] [facility]in [place] [id number] Information: [id number] AST enzyme act/vol 78 [iU]/L Abnormal 0-40 Compre [facility]ive Internal Medicine Work Phone: Comment on above: PATIENT NOT FASTINGP ERFORMED BY: ANGELI LabComauri CoelloDqmlwe5680 [address] [facility] [id number] Information: [id number] Bilirubin mass conc 0.5 mg/dL Normal 0.0-1.2 Compr ensive Internal Medicine Work Phone: Comment on above: PATIENT NOT FASTINGP ERFORMED BY: ANGELI [facility] Jirgsn0196 [facility] [id number] Information: [id number] Calcium mass conc 10.3 mg/dL Normal 8.7-10.3 Compreh [facility] Internal Medicine Work Phone: Comment on above: PATIENT NOT FASTINGP ERFORMED BY: ANGELI [facility] Seyzon6358 [facility] [id number] Information: 485512,[id number] Chloride molar conc 103 mmol/L Normal 96-106 Compr ensive Internal Medicine Work Phone: Comment on above: PATIENT NOT FASTINGP ERFORMED BY: ANGELI [facility] Plmiim1711 [facility] [id number] Information: [id number] CO2 molar conc 24 mmol/L Normal 20-29 Comprehens michael Internal Medicine Work Phone: Comment on above: PATIENT NOT FASTINGP ERFORMED BY: CB [facility] Yuckxd4131 [facility] [id number] Information: [id number] Creatinine mass conc 0.78 mg/dL Normal 0.57-1.00 Comp [facility]erensive Internal Medicine Work Phone: Comment on above: PATIENT NOT FASTINGP ERFORMED BY: ANGELI [facility] Lcjntw7533 [facility] [id number] Information: [id number],[id number] GFR/1.73 sq M predicted among blacks CKD-EPI vol rate/area (S/P/Bld) 88 mL/min/1.73 Normal Comprehe nsive Internal Medicine Work Phone: Comment on above: PATIENT NOT FASTINGP ERFORMED BY: ANGELI [facility] Fxcqgv1097 [address] [facility] [id number] Information: [id number] GFR/1.73 sq M predicted among non-blacks CKD-EPI vol rate/area (S/P/Bld) 76 mL/min/1.73 Normal [facility] Work Phone: Comment on above: PATIENT NOT FASTINGP ERFORMED BY: [facility] Lgjctt5890 [facility] [id number] Information: [id number],[id number] Globulin Calculated mass conc (S) 3.1 g/dL Normal 1.5-4.5 [facility] Work Phone: Globulin mass conc (S) 3.1 g/dL Normal 1.5-4.5 Co mprehensive Internal Medicine Work Phone: Comment on above: PATIENT NOT FASTINGP ERFORMED BY: [facility] Aolrum3652 [facility] [id number] Information: [id number] Glucose mass conc 113 mg/dL Abnormal 65-99 Compreh ensive Internal Medicine Work Phone: Comment on above: PATIENT NOT FASTINGP ERFORMED BY: [facility] Rmjtvf4524 [facility] [id number] Information: [id number] Potassium molar conc 5.0 mmol/L Normal 3.5-5.2 Comp rehensive Internal Medicine Work Phone: Comment on above: PATIENT NOT FASTINGP ERFORMED BY: CB [facility] Ulwjpp9[address] [facility]in [place] [id number] Information: [id number],[id number] Protein mass conc 7.7 g/dL Normal 6.0-8.5 Compreh ensive Internal Medicine Work Phone: Comment on above: PATIENT NOT FASTINGP ERFORMED BY: CB [facility] Lgyfiv5580 [address] [facility] [id number] Information: [id number] Sodium molar conc 142 mmol/L Normal 134-144 Compreh ensive Internal Medicine Work Phone: Comment on above: PATIENT NOT FASTINGP ERFORMED BY: ANGELI Coello6370 [facility] [id number] Information: [id number] Urea nitrogen mass conc 13 mg/dL Normal 8-27 C omprehensive Internal Medicine Work Phone: Comment on above: PATIENT NOT FASTINGP ERFORMED BY: ANGELI DawnSaint [facility] Oqmbfn9146 [facility] [id number] Information: 005941,[id number] Urea nitrogen/Creatinine mass ratio 17 mg/mg Normal 12-28 [facility] Medicine Work Phone: Comment on above: PATIENT NOT FASTINGP ERFORMED BY: NereydaSaint Mary'S Health Center Bxpxzh[address] [id number] Information: [id number] T3, FREE (TRIDOTHYRONINE) (7 7217)Ordered By: [employer] on 06-14-2018 T3 free mass conc 3.1 pg/mL Normal 2.0-4.4 Compreh ensive Internal Medicine Work Phone: Comment on above: PATIENT NOT FASTINGP ERFORMED BY: ANGELI DawnSaint [facility] Plgjsg8055 [facility] [id number] T4, FREE (THYROXINE) (50193) Ordered By: [employer] on 06-14-2018 T4 free mass conc 1.02 ng/dL Normal 0.82-1.77 Compreh ensive Internal Medicine Work Phone: Comment on above: PATIENT NOT FASTINGP ERFORMED BY: LabMonica [place] 4246070 [facility] [id number] TSH (THYROID STIMULATING HOR BARRON) ([id number])Ordered By: [employer] on 06-14-2018 Thyrotropin Qn 4.540 {uIU/mL} Abnormal 0.450-4.50 0 [facility] Work Phone: Comment on above: PATIENT NOT FASTINGP ERFORMED BY: ANGELI [facility] Mwsqhm0506 [address] RoadDublin [place] [id number] VITAMIN B12 AND FOLATES (826 07)Ordered By: [employer] on 06-14-2018 Cobalamin (Vitamin B12) mass conc 863 pg/mL Normal 232-1245 [facility] Medicine Work Phone: Comment on above: PATIENT NOT FASTINGP ERFORMED BY: CB [facility] Obohoj0439 [address] RoadDublin [place] [id number] Folate mass conc 17.5 ng/mL Normal Comprehe nsive Internal Medicine Work Phone: Comment on above: A serum folate stephanie ntration of less than 3.1 ng/mL isconsidered to represent clinical deficiency. PATIENT NOT FASTINGP ERFORMED BY: ANGELI [facility] Hgcsxo0368 Mcghee RoadDublin [place] [id number] Blood Glucose , Office (0596 2)Ordered By: Heidy Camacho on 03-15-2018 Glucose Glucometer molar conc (BldC) 214 1 Normal [facility] Work Phone: Comment on above: 214 HgA1C , Office ([id number])Ordere d By: Heidy Camacho on 03-15-2018 Hemoglobin A1c/Hemoglobin.total mass fraction (Bld) 6.9 % Normal 4.6 - 7.1 Comprehensiv e Internal Medicine Work Phone: Comment on above: 6.9 Metabolic Panel, Comprehensi ve (23094)Ordered By: [employer] on 03-09-2018 Albumin mass conc 4.6 g/dL Normal 3.5-4.8 Compreh ensive Internal Medicine Work Phone: Comment on above: PATIENT NOT FASTINGP ERFORMED BY: NAGELI [facility] Uwbhgi9819 [address] RoadDublin [place] [id number] Albumin/Globulin mass ratio 1.6 {ratio} Normal 1.2-2.2 [facility] Work Phone: Comment on above: PATIENT NOT FASTINGP ERFORMED BY: ANGELI [facility] Accdai1415 [address] RoadDublin [place] [id number] ALP [Catalytic activity/Vol] 80 U/L Normal 39-117 [facility] Work Phone: Comment on above: PATIENT NOT FASTINGP ERFORMED BY: CB [facility] Eytmce6435 [address] RoadDublin [place] [id number] ALP enzyme act/vol 80 [iU]/L Normal 39-[address] [facility] Internal Medicine Work Phone: Comment on above: PATIENT NOT FASTINGP ERFORMED BY: ANGELI [facility] Qmkhmy9755 [address] RoadDublin [place] [id number] ALT [Catalytic activity/Vol] 55 U/L Abnormal 0-32 [facility] Work Phone: Comment on above: PATIENT NOT FASTINGP ERFORMED BY: CB [facility] Dcqtqq6447 [address] RoadDublin [place] [id number] ALT enzyme act/vol 55 [iU]/L Abnormal 0-32 [facility] Internal Medicine Work Phone: Comment on above: PATIENT NOT FASTINGP ERFORMED BY: ANGELI [facility] Xyprzh5998 [address] RoadDublin [place] [id number] AST [Catalytic activity/Vol] 53 U/L Abnormal 0-40 [facility] Internal Medicine Work Phone: Comment on above: PATIENT NOT FASTINGP ERFORMED BY: ANGELI [facility] Sdxfab1053 [address] RoadDublin [place] [id number] AST enzyme act/vol 53 [iU]/L Abnormal 0-40 [facility] Internal Medicine Work Phone: Comment on above: PATIENT NOT FASTINGP ERFORMED BY: CB [facility] Enxzic4304 [address] RoadDublin [place] [id number] Bilirubin mass conc 0.4 mg/dL Normal 0.0-1.2 [facility] Internal Medicine Work Phone: Comment on above: PATIENT NOT FASTINGP ERFORMED BY: CB [facility] Mewlsh0137 [address] RoadDublin [place] [id number] Calcium mass conc 10.0 mg/dL Normal 8.7-10.3 [facility] Internal Medicine Work Phone: Comment on above: PATIENT NOT FASTINGP ERFORMED BY: CB [facility] Wjkxam8283 [address] RoadDublin [place] [id number] Chloride molar conc 101 mmol/L Normal 96-106 Compr ehensive Internal Medicine Work Phone: Comment on above: PATIENT NOT FASTINGP ERFORMED BY: ANGELI LabComauri WeldonNroypj1444 Mc[address] Roadblin [place] [id number] CO2 molar conc 22 mmol/L Normal 18-29 Comprehens michael Internal Medicine Work Phone: Comment on above: PATIENT NOT FASTINGP ERFORMED BY: CB [facility] Fkyqcq1769 [address] [facility] [id number] Creatinine mass conc 0.74 mg/dL Normal 0.57-1.00 Comp rehensive Internal Medicine Work Phone: Comment on above: PATIENT NOT FASTINGP ERFORMED BY: ANGELI [facility] Vnytcl4810 [address] [facility] [id number] GFR/1.73 sq M predicted among blacks CKD-EPI vol rate/area (S/P/Bld) 94 mL/min/1.73 Normal Comprehe nsive Internal Medicine Work Phone: Comment on above: PATIENT NOT FASTINGP ERFORMED BY: ANGELI [facility] Ssbhiy2056 [address] [facility] [id number] GFR/1.73 sq M predicted among non-blacks CKD-EPI vol rate/area (S/P/Bld) 81 mL/min/1.73 Normal [facility] Medicine Work Phone: Comment on above: PATIENT NOT FASTINGP ERFORMED BY: ANGELI [facility] Oydcxl8631 [facility] [id number] Globulin Calculated mass conc (S) 2.8 g/dL Normal 1.5-4.5 [facility] Work Phone: Globulin mass conc (S) 2.8 g/dL Normal 1.5-4.5 Co [facility]erehens[facility] Internal Medicine Work Phone: Comment on above: PATIENT NOT FASTINGP ERFORMED BY: CB [facility] Rnzjqt3550 [facility] [id number] Glucose mass conc 138 mg/dL Abnormal 65-99 Compreh ensive Internal Medicine Work Phone: Comment on above: PATIENT NOT FASTINGP ERFORMED BY: ANGELI LabDajuan WeldonXvsyuc6[address] [facility]in [place] [id number] Potassium molar conc 4.4 mmol/L Normal 3.5-5.2 Comp rehensive Internal Medicine Work Phone: Comment on above: PATIENT NOT FASTINGP ERFORMED BY: ANGELI Weldonlin6370 [address] [facility]in [place] [id number] Protein mass conc 7.4 g/dL Normal 6.0-8.5 Compreh ensive Internal Medicine Work Phone: Comment on above: PATIENT NOT FASTINGP ERFORMED BY: ANGELI [facility] Xktjgq4919 [address] [facility] [id number] Sodium molar conc 140 mmol/L Normal 134-144 Compreh ensive Internal Medicine Work Phone: Comment on above: PATIENT NOT FASTINGP ERFORMED BY: ANGELI LabDajuan Coello6370 [facility] [id number] Urea nitrogen mass conc 15 mg/dL Normal 8-27 C omprehensive Internal Medicine Work Phone: Comment on above: PATIENT NOT FASTINGP ERFORMED BY: ANGELI LabDajuan Coello6370 [facility] [id number] Urea nitrogen/Creatinine mass ratio 20 mg/mg Normal 12-28 [facility] Work Phone: Comment on above: PATIENT NOT FASTINGP ERFORMED BY: ANGELI [facility] Qgioyn0348 [facility] [id number] T3, FREE (TRIDOTHYRONINE) (0 [phone])Ordered By: [employer] on 03-09-2018 T3 free mass conc 3.1 pg/mL Normal 2.0-4.4 Compreh ensive Internal Medicine Work Phone: Comment on above: PATIENT NOT FASTINGP ERFORMED BY: ANGELI [facility] Cvfqgr7176 [address] [facility]in [place] [id number] T4, FREE (THYROXINE) (92439) Ordered By: [employer] on 03-09-2018 T4 free mass conc 0.99 ng/dL Normal 0.82-1.77 Compreh ensive Internal Medicine Work Phone: Comment on above: PATIENT NOT FASTINGP ERFORMED BY: CB [facility] Drahwm4143 [address] [facility] [id number] TSH (THYROID STIMULATING HOR BARRON) (38995)Ordered By: [employer] on 03-09-2018 Thyrotropin Qn 7.250 {uIU/mL} Abnormal 0.450-4.50 0 [facility] Work Phone: Comment on above: PATIENT NOT FASTINGP ERFORMED BY: CB [facility] Etvagz8583 [facility] [id number] Blood Glucose , Office (3972 2)Ordered By: Latrice Levy on 12-06-2017 Glucose Glucometer molar conc (BldC) 142 1 Normal [facility] Medicine Work Phone: Comment on above: ate breakfast HgA1C , Office (23604)Ordere d By: Latrice Levy on 12-06-2017 Hemoglobin A1c/Hemoglobin.total mass fraction (Bld) 6.7 % Normal 4.6 - 7.1 Comprehensiv e Internal Medicine Work Phone: CALCIFEDIOL (94950)Ordered B y: [employer] on 11-30-2017 25-Hydroxyvitamin D2+25-Hydroxyvitamin D3 mass conc 26.6 ng/mL Abnormal 30.0-100.0 [facility] Medicine Work Phone: Comment on above: Vitamin D deficiency has been defined by the Gordon ofMedicine and an Endocrine Society practice guideline as alevel of serum 25-OH vitamin D less than 20 ng/mL (1,2).The Endocrine Society went on to further define vitamin Dinsufficiency as a level between 21 and 29 ng/mL (2).1. IOM (Gordon of Medicine). 2010. Dietary reference intakes for calcium and D. [place]: The National Academies Press.2. Ace MF, [place], Cynthia COFFMAN, et al. Evaluation, treatment, and prevention of vitamin D deficiency: an Endocrine Society clinical practice guideline. JCEM. 2010; 96(7):1911-30. Oct 2017; PATIENT NO T FASTINGPERFORMED BY: [facility] Menkri4269 [facility] [place] [id number] Metabolic Panel, Comprehensi ve (38077)Ordered By: [employer] on 11-30-2017 Albumin mass conc 4.6 g/dL Normal 3.5-4.8 Compreh [facility] Internal Medicine Work Phone: Comment on above: Oct 2017; PATIENT NO T FASTINGPERFORMED BY: CB [facility] Fkltgr5205 [address] RoadDublin [place] [id number] Albumin/Globulin mass ratio 1.4 {ratio} Normal 1.2-2.2 [facility] Work Phone: Comment on above: Oct 2017; PATIENT NO T FASTINGPERFORMED BY: CB [facility] Rlkxzh2445 [address] RoadDublin [place] [id number] ALP [Catalytic activity/Vol] 87 U/L Normal 39-117 [facility] Work Phone: Comment on above: Oct 2017; PATIENT NO T FASTINGPERFORMED BY: CB [facility] Lzchtu1459 [address] RoadDuin [place] [id number] ALP enzyme act/vol 87 [iU]/L Normal 39-117 [facility] Internal Medicine Work Phone: Comment on above: Oct 2017; PATIENT NO T FASTINGPERFORMED BY: CB [facility] Wykhdv2513 [address] Roadblin [place] [id number] ALT [Catalytic activity/Vol] 49 U/L Abnormal 0-32 [facility] Work Phone: Comment on above: Oct 2017; PATIENT NO T FASTINGPERFORMED BY: CB [facility] Rjsues7022 [address] RoadDublin [place] [id number] ALT enzyme act/vol 49 [iU]/L Abnormal 0-[address] [facility] Internal Medicine Work Phone: Comment on above: Oct 2017; PATIENT NO T FASTINGPERFORMED BY: CB [facility] Whainz8955 [address] RoadDublin [place] [id number] AST [Catalytic activity/Vol] 41 U/L Abnormal 0-40 [facility] Work Phone: Comment on above: Oct 2017; PATIENT NO T FASTINGPERFORMED BY: CB [facility] Elpbqq8092 [address] Roadblin [place] [id number] AST enzyme act/vol 41 [iU]/L Abnormal 0-[address] [facility] Internal Medicine Work Phone: Comment on above: Oct 2017; PATIENT NO T FASTINGPERFORMED BY: CB [facility] Fnrwsp1052 [address] RoadDublin [place] [id number] Bilirubin mass conc 0.3 mg/dL Normal 0.0-1.2 Compr ensive Internal Medicine Work Phone: Comment on above: Oct 2017; PATIENT NO T FASTINGPERFORMED BY: CB [facility] Dqrevd0693 [address] RoadDublin [place] [id number] Calcium mass conc 10.0 mg/dL Normal 8.7-10.3 Compreh [facility] Internal Medicine Work Phone: Comment on above: Oct 2017; PATIENT NO T FASTINGPERFORMED BY: ANGELI [facility] Suvtkz6445 Mc[address] RoadAt[facility] Centerin [place] [id number] Chloride molar conc 100 mmol/L Normal 96-106 Compr ensive Internal Medicine Work Phone: Comment on above: Oct 2017; PATIENT NO T FASTINGPERFORMED BY: ANGELI [facility] Vnqxpl9176 [address] RoadAtrium Health [facility] Medical Centerin [place] [id number] CO2 molar conc 24 mmol/L Normal 18-29 Comprehens [facility] Internal Medicine Work Phone: Comment on above: Oct 2017; PATIENT NO T FASTINGPERFORMED BY: ANGELI [facility] Kaatal0321 [address] [facility] [id number] Creatinine mass conc 0.69 mg/dL Normal 0.57-1.00 Comp [facility]erens[facility] Internal Medicine Work Phone: Comment on above: Oct 2017; PATIENT NO T FASTINGPERFORMED BY: CB [facility] Lcyhgt6407 [address] RoadAtrium Health [facility] Medical Centerin [place] [id number] GFR/1.73 sq M predicted among blacks CKD-EPI vol rate/area (S/P/Bld) 101 mL/min/1.73 Normal Comprehe ive Internal Medicine Work Phone: Comment on above: Oct 2017; PATIENT NO T FASTINGPERFORMED BY: CB [facility] Vkyzvs7374 [address] RoadDublin [place] [id number] GFR/1.73 sq M predicted among non-blacks CKD-EPI vol rate/area (S/P/Bld) 87 mL/min/1.73 Normal Comprehensive [facility] Medicine Work Phone: Comment on above: Oct 2017; PATIENT NO T FASTINGPERFORMED BY: CB [facility] Kldduf4358 [address] RoadDublin [place] [id number] Globulin Calculated mass conc (S) 3.2 g/dL Normal 1.5-4.5 [facility] Work Phone: Globulin mass conc (S) 3.2 g/dL Normal 1.5-4.5 Co mprehensive Internal Medicine Work Phone: Comment on above: Oct 2017; PATIENT NO T FASTINGPERFORMED BY: CB [facility] Ssolmn6796 [address] RoadPassivSystemsblin [place] [id number] Glucose mass conc 125 mg/dL Abnormal 65-99 Compreh ensive Internal Medicine Work Phone: Comment on above: Oct 2017; PATIENT NO T FASTINGPERFORMED BY: CB [facility] Advclm5409 [address] RoadPassivSystemsin [place] [id number] Potassium molar conc 4.7 mmol/L Normal 3.5-5.2 Comp rehensive Internal Medicine Work Phone: Comment on above: Oct 2017; PATIENT NO T FASTINGPERFORMED BY: CB [facility] Idxssd0469 [address] RoadDublin [place] [id number] Protein mass conc 7.8 g/dL Normal 6.0-8.5 Compreh ensive Internal Medicine Work Phone: Comment on above: Oct 2017; PATIENT NO T FASTINGPERFORMED BY: CB [facility] Lvxoef6371 [address] RoadDublin [place] [id number] Sodium molar conc 141 mmol/L Normal 134-144 Compreh ensive Internal Medicine Work Phone: Comment on above: Oct 2017; PATIENT NO T FASTINGPERFORMED BY: CB [facility] Hsmnmy6961 [address] RoadDublin [place] [id number] Urea nitrogen mass conc 19 mg/dL Normal 8-27 C omprehensive Internal Medicine Work Phone: Comment on above: Oct 2017; PATIENT NO T FASTINGPERFORMED BY: ANGELI [facility] Hlnfjq9135 [facility] [id number] Urea nitrogen/Creatinine mass ratio 28 mg/mg Normal 12-28 [facility] Work Phone: Comment on above: Oct 2017; PATIENT NO T FASTINGPERFORMED BY: ANGELI [facility] Oolzsb8052 [facility] [id number] TSH (THYROID STIMULATING HOR BARRON) ([id number])Ordered By: [employer] on 11-30-2017 Thyrotropin Qn 5.470 {uIU/mL} Abnormal 0.450-4.50 0 [facility] Work Phone: Comment on above: Oct 2017; PATIENT NO T FASTINGPERFORMED BY: ANGELI [facility] Hmacsv1025 [facility] [id number] [place] Procedure Noteon [place] Procedure Note Normal A [facility] ([place]) Final Surgical Pathology Rep [facility] 09-21-2017 Final Surgical Pathology Report . 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 - THE INKED AND CAUTERIZED MARGIN FOCALLY HAS ADENOMATOUS CHANGE BUT IS NEGATIVE FOR HIGH GRADE DYSPLASIA.C) PROXIMAL TRANSVERSE COLON, BIOPSY: - TUBULAR ADENOMA.COMMENT:[facility]# [id number] INFORMATION:Procedure: COLONOSCOPY WITH POLYP BIOPSY / COLD SNARE AND HOT SNARE POLYPECTOMIES AND INK TATTOOPreoperative diagnosis: HISTORY OF COLON POLYPSPostoperative diagnosis: SAMESPECIMEN:A POLYP, SIGMOIDB POLYP, HEPATIC FLEXURE - TATTOOC POLYP, PROXIMAL TRANSVERSE COLONGROSS DESCRIPTION:_A. Received in formalin labeled sigmoid polyp is a 0.3 cm morales glistening soft tissue. A S -1B. Received in formalin labeled hepatic flexure polyp is 1.7 x 1.3 x 1 cm aggregate of red-morales focally lobulated soft tissue. What appeared to be the bases are inked. The largest tissue is sectioned and submitted in cassette 1. Another tissue is bisected and the remaining tissue submitted in toto. A S -2C. Received in formalin labeled proximal transverse colon polyp are 2 morales glistening soft tissues averaging 0.3 cm. A S -1Dictated by RAYMUNDO REDD ([facility])MICROSCOPIC DESCRIPTION:Slides reviewed.Electronically Signed byPathology Report verified by [facility] CenterElectronically signed by RAMIN Atkins out Date: 09/21/2017 14:09Performing Lab: [facility], [address] [place] [address] Normal [facility] ([place]) Comment on above: Performed By: #### S PFR ####[facility] [place] [address] AO ENDO Procedure Recordon 09-20-2017 AO ENDO Procedure Record Normal [facility]) Anesthesiology Consultationo n 09-20-2017 Anesthesiology Consultation Normal [facility]) History and Physicalon 09-20 History and Physical Normal [facility]) Blood Glucose , Office (2896 2)Ordered By: Latrice Levy on 08-10-2017 Glucose Glucometer molar conc (BldC) 90 1 Normal [facility] Work Phone: HgA1C , Office ([phone])Ordere d By: Latrice Levy on 08-10-2017 Hemoglobin A1c/Hemoglobin.total mass fraction (Bld) 6.2 % Normal 4.6 - 7.1 Comprehensiv e Internal Medicine Work Phone: [id number] ([phone])Ordered By: [employer] on 08-03-2017 AFP.tumor marker mass conc 3.7 ng/mL Normal 0.0-8.3 [facility] Work Phone: Comment on above: Nora ECLIA methodol ogy Jul 2017; PATIENT W FASTINGPERFORMED BY: [facility] Fzsxkn1489 [facility] [id number] Lipid Panel ([id number])Ordered B y: [employer] on 08-03-2017 Cholesterol in HDL mass conc 52 mg/dL Normal [facility] Work Phone: Comment on above: Jul 2017; PATIENT W FASTINGPERFORMED BY: ANGELI LabDajuan WeldonXxsoly6129 [facility] [id number] Cholesterol in LDL mass conc 142 mg/dL Abnormal 0-99 [facility] Work Phone: Comment on above: Jul 2017; PATIENT W FASTINGPERFORMED BY: ANGELI LabDajuan WeldonVsdhmt0814 [facility] [id number] Cholesterol in LDL/Cholesterol in HDL mass ratio 2.7 {ratio_units} Normal 0.0-3.2 [facility] Work Phone: Comment on above: LDL/HDL Ratio Men Wo men 1/2 Avg.Risk 1.0 1.5 Avg.Risk 3.6 3.2 2X Avg.Risk 6.2 5.0 3X Avg.Risk 8.0 6.1 Jul 2017; PATIENT W FASTINGPERFORMED BY: ANGELI Weldonlin6370 [facility] [id number] Cholesterol in VLDL mass conc 24 mg/dL Normal 5-40 [facility] Work Phone: Comment on above: Jul 2017; PATIENT W FASTINGPERFORMED BY: ANGELI LabDajuan WeldonHbnfij6573 [facility] [id number] Cholesterol mass conc 218 mg/dL Abnormal 100-199 Com prehensive Internal Medicine Work Phone: Comment on above: Jul 2017; PATIENT W FASTINGPERFORMED BY: ANGELI LabDajuan WeldonYlpkko7513 [facility] [id number] Triglyceride mass conc 118 mg/dL Normal 0-149 Co [facility]erehens[facility] Work Phone: Comment on above: Jul 2017; PATIENT W FASTINGPERFORMED BY: ANGELI LabComauri WeldonYitbsj9440 [facility] [id number] Metabolic Panel, Comprehensi ve ([id number])Ordered By: [employer] on 08-03-2017 Albumin mass conc 4.2 g/dL Normal 3.5-4.8 Compreh ensive Internal Medicine Work Phone: Comment on above: jul 2017; PATIENT W FASTINGPERFORMED BY: CB [facility] Okzgxq1330 [address] RoadDublin [place] [id number] Albumin/Globulin mass ratio 1.4 {ratio} Normal 1.2-2.2 [facility] Work Phone: Comment on above: jul 2017; PATIENT W FASTINGPERFORMED BY: CB [facility] Zadjci5232 [address] RoadDublin [place] [id number] ALP [Catalytic activity/Vol] 78 U/L Normal 39-117 [facility] Work Phone: Comment on above: jul 2017; PATIENT W FASTINGPERFORMED BY: CB [facility] Gfpend3182 [address]Dublin [place] [id number] ALP enzyme act/vol 78 [iU]/L Normal 39-117 [facility] Internal Medicine Work Phone: Comment on above: jul 2017; PATIENT W FASTINGPERFORMED BY: CB [facility] Ipcuwc4502 [address] RoadDublin [place] [id number] ALT [Catalytic activity/Vol] 43 U/L Abnormal 0-32 [facility] Work Phone: Comment on above: ADDENDA: Stable. OV 10 aug 2017; PATIENT W FASTINGPERFORMED BY: CB [facility] Jzdvgy1541 [address]Dublin [place] [id number] ALT enzyme act/vol 43 [iU]/L Abnormal 0-32 [facility] Internal Medicine Work Phone: Comment on above: ADDENDA: Stable. OV 10 aug 2017; PATIENT W FASTINGPERFORMED BY: CB [facility] Ulncmy4927 [address] RoadDublin [place] [id number] AST [Catalytic activity/Vol] 39 U/L Normal 0-40 [facility] Work Phone: Comment on above: jul 2017; PATIENT W FASTINGPERFORMED BY: CB [facility] Mvcboi8271 [address] RoadDublin [place] [id number] AST enzyme act/vol 39 [iU]/L Normal 0-40 [facility] Internal Medicine Work Phone: Comment on above: jul 2017; PATIENT W FASTINGPERFORMED BY: CB [facility] Fxligp1999 [address]Dublin [place] [id number] Bilirubin mass conc 0.3 mg/dL Normal 0.0-1.2 Compr ensive Internal Medicine Work Phone: Comment on above: jul 2017; PATIENT W FASTINGPERFORMED BY: CB [facility] Mcbgeb4004 [address]Dublin [place] [id number] Calcium mass conc 9.5 mg/dL Normal 8.7-10.3 Compreh ensive Internal Medicine Work Phone: Comment on above: jul 2017; PATIENT W FASTINGPERFORMED BY: CB [facility] Tngmns0430 [address]Dublin [place] [id number] Chloride molar conc 104 mmol/L Normal 96-106 Compr [facility] Internal Medicine Work Phone: Comment on above: jul 2017; PATIENT W FASTINGPERFORMED BY: CB [facility] Bnnxth9796 [address]Dublin [place] [id number] CO2 molar conc 22 mmol/L Normal 18-29 Comprehens michael Internal Medicine Work Phone: Comment on above: jul 2017; PATIENT W FASTINGPERFORMED BY: CB [facility] Wghoyu5083 [address] RoadDublin [place] [id number] Creatinine mass conc 0.68 mg/dL Normal 0.57-1.00 Comp [facility]erensive Internal Medicine Work Phone: Comment on above: jul 2017; PATIENT W FASTINGPERFORMED BY: CB [facility] Trwfca9173 [address]Dublin [place] [id number] GFR/1.73 sq M predicted among blacks CKD-EPI vol rate/area (S/P/Bld) 101 mL/min/1.73 Normal Comprehe nsive Internal Medicine Work Phone: Comment on above: jul 2017; PATIENT W FASTINGPERFORMED BY: CB [facility] Yflydq5659 [address]Dublin [place] [id number] GFR/1.73 sq M predicted among non-blacks CKD-EPI vol rate/area (S/P/Bld) 88 mL/min/1.73 Normal [facility] Work Phone: Comment on above: jul 2017; PATIENT W FASTINGPERFORMED BY: ANGELI [facility] Mwzivx2043 [address] [facility] [id number] Globulin Calculated mass conc (S) 3.1 g/dL Normal 1.5-4.5 [facility] Work Phone: Globulin mass conc (S) 3.1 g/dL Normal 1.5-4.5 Co mprehensive Internal Medicine Work Phone: Comment on above: jul 2017; PATIENT W FASTINGPERFORMED BY: ANGELI [facility] Hfawoi3643 [address] [facility]cyNov[facility] [id number] Glucose mass conc 104 mg/dL Abnormal 65-99 Compreh ensive Internal Medicine Work Phone: Comment on above: jul 2017; PATIENT W FASTINGPERFORMED BY: ANGELI [facility] Dgfwrh0855 [address] [facility]cyNov[facility] [id number] Potassium molar conc 4.9 mmol/L Normal 3.5-5.2 Comp rehensive Internal Medicine Work Phone: Comment on above: jul 2017; PATIENT W FASTINGPERFORMED BY: ANGELI [facility] Qzzelm0223 [address] PrismaticFormerly [facility] [id number] Protein mass conc 7.3 g/dL Normal 6.0-8.5 Compreh ensive Internal Medicine Work Phone: Comment on above: jul 2017; PATIENT W FASTINGPERFORMED BY: ANGELI [facility] Nqwppo2559 [address] [facility] [id number] Sodium molar conc 144 mmol/L Normal 134-144 Compreh ensive Internal Medicine Work Phone: Comment on above: jul 2017; PATIENT W FASTINGPERFORMED BY: ANGELI [facility] Tlzrfi1371 [facility] [id number] Urea nitrogen mass conc 12 mg/dL Normal 8-27 C omprehensive Internal Medicine Work Phone: Comment on above: jul 2017; PATIENT W FASTINGPERFORMED BY: ANGELI [facility] Owgvzc6057 [facility] [id number] Urea nitrogen/Creatinine mass ratio 18 mg/mg Normal 12- [facility] Work Phone: Comment on above: jul 2017; PATIENT W FASTINGPERFORMED BY: ANGELI [employer] Lntapn7392 [facility] [id number] Blood Glucose , Office (6496 2)Ordered By: Federica Olivarez on 05-07-2017 Glucose Glucometer molar conc (BldC) 132 1 Normal [facility] Work Phone: HgA1C , Office ([phone])Ordere d By: Federica Olivarez on 05-07-2017 Hemoglobin A1c/Hemoglobin.total mass fraction (Bld) 6.1 % Normal 4.6 - 7.1 Comprehensiv e Internal Medicine Work Phone: Comment on above: 6.1 CALCIFEDIOL (03095)Ordered B y: [employer] on 02-03-2017 25-Hydroxyvitamin D2+25-Hydroxyvitamin D3 mass conc 36.7 ng/mL Normal 30.0-100.0 [facility] Work Phone: Comment on above: Vitamin D deficiency has been defined by the Gordon ofMedicine and an Endocrine Society practice guideline as alevel of serum 25-OH vitamin D less than 20 ng/mL (1,2).The Endocrine Society went on to further define vitamin Dinsufficiency as a level between 21 and 29 ng/mL (2).1. IOM (Gordon of Medicine). 2010. Dietary reference intakes for calcium and D. [place]: The National Academies Press.2. Ace MF, Lurdes [place], Cynthia COFFMAN, et al. Evaluation, treatment, and prevention of vitamin D deficiency: an Endocrine Society clinical practice guideline. JCEM. 2010; 96(7):1911-30. PATIENT WAS FASTINGP ERFORMED BY: ANGELI [employer] Eewmoj7516 [facility] [id number] MICROALBUMINOrdered By: Syst em Relations Director on 02-03-2017 Albumin DL <= 20 mg/L mass conc (U) 5.1 ug/mL Normal [facility] Work Phone: Comment on above: PATIENT WAS FASTINGP ERFORMED BY: ANGELI [facility] Efzebu8954 [facility] [id number] Albumin/Creatinine mass ratio (U) 4.4 {mg/g_creat} Normal 0.0-30.0 [facility] Work Phone: Comment on above: PATIENT WAS FASTINGP ERFORMED BY: [facility] Gygfss6132 [facility] [id number] Creatinine mass conc (U) 117.0 mg/dL Normal [facility] Work Phone: Comment on above: PATIENT WAS FASTINGP ERFORMED BY: [facility] Ilmovt0370 [facility] [id number] Metabolic Panel, Comprehensi ve (43770)Ordered By: [employer] on 02-03-2017 Albumin/Globulin mass ratio 1.4 {ratio} Normal 1.1-2.5 [facility] Work Phone: Comment on above: Effective January the reference interval for A/G Ratio will be changing to: Age Male Female 0 - 7 days 1.1 - 2.3 1.1 - 2.3 8 - 30 days 1.2 - 2.8 1.2 - 2.8 1 - 6 months 1.3 - 3.6 1.3 - 3.6 7 months - 5 years 1.5 - 2.6 1.5 - 2.6 > 5 years 1.2 - 2.2 1.2 - 2.2 PATIENT WAS FASTINGP ERFORMED BY: [facility] Jwckia0842 [facility] [id number]; ov 02/09 ALP [Catalytic activity/Vol] 82 U/L Normal 39-117 [facility] Work Phone: Comment on above: PATIENT WAS FASTINGP ERFORMED BY: [facility] Euciud4391 [facility] [id number]; ov 02/09 ALP enzyme act/vol 82 [iU]/L Normal 39-117 [facility] Internal Medicine Work Phone: Comment on above: PATIENT WAS FASTINGP ERFORMED BY: [facility] Rnjzzc6676 [address] RoadDublin [place] [id number]; ov 3/14 ALT [Catalytic activity/Vol] 50 U/L Abnormal 0-32 [facility] Work Phone: Comment on above: PATIENT WAS FASTINGP ERFORMED BY: CB [facility] Ybuwwd2356 [address] RoadDublin [place] [id number]; ov 3/14 ALT enzyme act/vol 50 [iU]/L Abnormal 0-32 [facility] Internal Medicine Work Phone: Comment on above: PATIENT WAS FASTINGP ERFORMED BY: CB [facility] Zslgse8549 [address] RoadDublin [place] [id number]; ov 314 AST [Catalytic activity/Vol] 43 U/L Abnormal 0-40 [facility] Internal Medicine Work Phone: Comment on above: PATIENT WAS FASTINGP ERFORMED BY: CB [facility] Wnxzkd7265 [address] RoadDublin [place] [id number]; ov 314 AST enzyme act/vol 43 [iU]/L Abnormal 0-40 [facility] Internal Medicine Work Phone: Comment on above: PATIENT WAS FASTINGP ERFORMED BY: CB [facility] Seqijw3648 [address] RoadDublin [place] [id number]; ov 3/14 Bilirubin mass conc 0.3 mg/dL Normal 0.0-1.2 [facility] Internal Medicine Work Phone: Comment on above: PATIENT WAS FASTINGP ERFORMED BY: CB [facility] Gzlxzq0063 [address] RoadDublin [place] [id number]; ov 3/14 Calcium mass conc 9.8 mg/dL Normal 8.7-10.3 [facility] Internal Medicine Work Phone: Comment on above: PATIENT WAS FASTINGP ERFORMED BY: CB [facility] Spygdc8579 [address] RoadDublin [place] [id number]; ov 3/14 Chloride molar conc 102 mmol/L Normal 96-106 [facility] Internal Medicine Work Phone: Comment on above: PATIENT WAS FASTINGP ERFORMED BY: CB [facility] Vuzfjn6835 [address] RoadDublin [place] [id number]; ov 3/14 CO2 molar conc 21 mmol/L Normal 18-29 Comprehens michael Internal Medicine Work Phone: Comment on above: PATIENT WAS FASTINGP ERFORMED BY: CB [facility] Rnyzwn5700 [address] [facility] [id number]; ov 3/14 Creatinine mass conc 0.67 mg/dL Normal 0.57-1.00 Comp rehensive Internal Medicine Work Phone: Comment on above: PATIENT WAS FASTINGP ERFORMED BY: CB [facility] Nzuvzi4322 [address] [facility] [id number]; ov 3/14 GFR/1.73 sq M predicted among blacks CKD-EPI vol rate/area (S/P/Bld) 102 mL/min/1.73 Normal Comprehe nsive Internal Medicine Work Phone: Comment on above: PATIENT WAS FASTINGP ERFORMED BY: ANGELI [facility] Ztqdom1271 [facility] [id number]; ov 3/14 GFR/1.73 sq M predicted among non-blacks CKD-EPI vol rate/area (S/P/Bld) 89 mL/min/1.73 Normal [facility] Work Phone: Comment on above: PATIENT WAS FASTINGP ERFORMED BY: ANGELI [facility] Drqnrt6943 [facility] [id number]; ov 3/14 Globulin Calculated mass conc (S) 3.1 g/dL Normal 1.5-4.5 [facility] Work Phone: Globulin mass conc (S) 3.1 g/dL Normal 1.5-4.5 Co [facility] Internal [facility] Work Phone: Comment on above: PATIENT WAS FASTINGP ERFORMED BY: CB [facility] Ibwkzt9063 [facility] [id number]; ov 3/14 Potassium molar conc 5.1 mmol/L Normal 3.5-5.2 Comp rehensive Internal Medicine Work Phone: Comment on above: PATIENT WAS FASTINGP ERFORMED BY: CB [facility] Qzkmqx3849 [address] RoadDublin [place] [id number]; ov 3/14 Protein mass conc 7.4 g/dL Normal 6.0-8.5 Compreh ensive Internal Medicine Work Phone: Comment on above: PATIENT WAS FASTINGP ERFORMED BY: CB [facility] Rawlmu5823 [address] RoadDublin [place] [id number]; ov 314 Sodium molar conc 142 mmol/L Normal 134-144 Compreh ensive Internal Medicine Work Phone: Comment on above: PATIENT WAS FASTINGP ERFORMED BY: CB [facility] Pfinat1636 [address] RoadDublin [place] [id number]; ov 314 PATIENT WAS FASTINGP ERFORMED BY: CB [facility] Szftoi3399 [address] RoadDublin [place] [id number] Urea nitrogen mass conc 12 mg/dL Normal 8-27 C omprehensive Internal Medicine Work Phone: Comment on above: PATIENT WAS FASTINGP ERFORMED BY: CB [facility] Hyyczn5411 [address] RoadDublin [place] [id number] PATIENT WAS FASTINGP ERFORMED BY: CB [facility] Ngigkc9067 [address] RoadDublin [place] [id number]; ov 314 Urea nitrogen/Creatinine mass ratio 18 mg/mg Normal 11-26 [facility] Work Phone: Comment on above: PATIENT WAS FASTINGP ERFORMED BY: CB [facility] Ofuwhq5393 [address] RoadDublin [place] [id number]; ov 314 Renal function Panel ([id number]) Ordered By: [employer] on 02-03-2017 Albumin mass conc 4.3 g/dL Normal 3.5-4.8 Compreh ensive Internal Medicine Work Phone: Comment on above: PATIENT WAS FASTINGP ERFORMED BY: CB [facility] Fedqsj5206 [address] RoadDublin [place] [id number] PATIENT WAS FASTINGP ERFORMED BY: CB [facility] Kyhgov3182 [address]Dublin [place] [id number]; ov 3/14 Calcium mass conc 9.9 mg/dL Normal 8.7-10.3 Compreh ensive Internal Medicine Work Phone: Comment on above: PATIENT WAS FASTINGP ERFORMED BY: ANGELI [facility] Prbgxy5207 [address] RoadDublin [place] [id number] Chloride molar conc 101 mmol/L Normal 96-106 Compr ehensive Internal Medicine Work Phone: Comment on above: PATIENT WAS FASTINGP ERFORMED BY: ANGELI [facility] Yutbfh8533 [address] RoadDublin [place] [id number] CO2 molar conc 23 mmol/L Normal 18-29 Comprehens michael Internal Medicine Work Phone: Comment on above: PATIENT WAS FASTINGP ERFORMED BY: ANGELI [facility] Nwsguv8682 [address] RoadDublin [place] [id number] Creatinine mass conc 0.64 mg/dL Normal 0.57-1.00 Comp rehensive Internal Medicine Work Phone: Comment on above: PATIENT WAS FASTINGP ERFORMED BY: ANGELI [facility] Ysrqlb0863 [address] RoadDublin [place] [id number] GFR/1.73 sq M predicted among blacks CKD-EPI vol rate/area (S/P/Bld) 104 mL/min/1.73 Normal Comprehe nsive Internal Medicine Work Phone: Comment on above: PATIENT WAS FASTINGP ERFORMED BY: ANGELI [facility] Hinapn6804 [address]Dublin [place] [id number] GFR/1.73 sq M predicted among non-blacks CKD-EPI vol rate/area (S/P/Bld) 90 mL/min/1.73 Normal Comprehensive [facility] Work Phone: Comment on above: PATIENT WAS FASTINGP ERFORMED BY: ANGELI [facility] Xwnmgk2627 [address] RoadDublin [place] [id number] Glucose mass conc 108 mg/dL Abnormal 65-99 Compreh ensive Internal Medicine Work Phone: Comment on above: PATIENT WAS FASTINGP ERFORMED BY: ANGELI [facility] Mioejz2410 [address]Dublin [place] [id number] PATIENT WAS FASTINGP ERFORMED BY: CB [facility] Fojzms5968 [address] RoadDublin [place] [id number]; ov 3/14 Phosphate mass conc 3.5 mg/dL Normal 2.5-4.5 [facility]erensive Internal Medicine Work Phone: Comment on above: PATIENT WAS FASTINGP ERFORMED BY: [facility] Szvwoo0977 [facility] [id number] Potassium molar conc 5.2 mmol/L Normal 3.5-5.2 Comp [facility]erensive Internal Medicine Work Phone: Comment on above: PATIENT WAS FASTINGP ERFORMED BY: [facility] Dbthwp3283 [facility] [id number] Urea nitrogen/Creatinine mass ratio 19 mg/mg Normal 10-24 [facility] Work Phone: Comment on above: PATIENT WAS FASTINGP ERFORMED BY: LabCoHunterdon Medical CenterGnqpwx5027 [facility] [id number] Blood Glucose , Office (8296 2)Ordered By: Latrice Levy on 12-09-2016 Glucose Glucometer molar conc (BldC) 110 1 Normal Comprehensive [facility] Work Phone: [id number] (821 05)Ordered By: [employer] on 10-13-2016 AFP.tumor marker mass conc 4.7 ng/mL Normal 0.0-8.3 [facility] Work Phone: Comment on above: Nora ECLIA methodol ogy PATIENT NOT FASTINGP ERFORMED BY: [facility] Ojhhnk5122 [facility] [id number] Blood Glucose , Office (8296 2)Ordered By: Latrice Levy on 10-13-2016 Glucose Glucometer molar conc (BldC) 144 1 Normal [facility] Work Phone: CALCIFEDIOL ([phone])Ordered B y: [employer] on 09-30-2016 25-Hydroxyvitamin D2+25-Hydroxyvitamin D3 mass conc 20.2 ng/mL Abnormal 30.0-100.0 [facility] Work Phone: Comment on above: Vitamin D deficiency has been defined by the Gordon ofMedicine and an Endocrine Society practice guideline as alevel of serum 25-OH vitamin D less than 20 ng/mL (1,2).The Endocrine Society went on to further define vitamin Dinsufficiency as a level between 21 and 29 ng/mL (2).1. IOM (Gordon of Medicine). 2010. Dietary reference intakes for calcium and D. [place]: The National Academies Press.2. Ace MF, Lurdes WELLS, Cynthia COFFMAN, et al. Evaluation, treatment, and prevention of vitamin D deficiency: an Endocrine Society clinical practice guideline. JCEM. 2010; 96(7):1911-30. PATIENT NOT FASTINGP ERFORMED BY: [employer] [facility] Fvwkcm0497 [address] RoadDublin [place] [id number] CBC with auto diff ([id number])Or dered By: [employer] on 09-30-2016 Basophils #/vol (Bld) 0.0 {x10E3/uL} Normal 0.0-0.2 [facility] Work Phone: Comment on above: PATIENT NOT FASTINGP ERFORMED BY: CB [facility] Wqtymw3316 [address]Dublin [place] [id number] Basophils (Bld) [#/Vol] 0.0 10*3/uL Normal 0.0-0.2 [facility] Work Phone: Comment on above: PATIENT NOT FASTINGP ERFORMED BY: CB [facility] Qnyeab3893 [address]hee RoadDublin [place] [id number] Basophils Auto #/vol (Bld) 0.0 {x10E3/uL} Normal 0.0-0.2 [facility] Work Phone: Basophils/100 WBC (Bld) 1 % Normal C omprehensive Internal Medicine Work Phone: Comment on above: PATIENT NOT FASTINGP ERFORMED BY: CB [facility] Xkjoel0672 [address] RoadDublin [place] [id number] Basophils/100 WBC Auto (Bld) 1 % Normal [facility] Work Phone: Eosinophils #/vol (Bld) 0.3 {x10E3/uL} Normal 0.0-0.4 [facility] Work Phone: Comment on above: PATIENT NOT FASTINGP ERFORMED BY: ANGELI LabComauri Gjlqlg[address] [facility]in [place] [id number] Eosinophils (Bld) [#/Vol] 0.3 10*3/uL Normal 0.0-0.4 [facility] Work Phone: Comment on above: PATIENT NOT FASTINGP ERFORMED BY: ANGELI [facility] Huwsll8920 Mc[address]hee RoadAtrium Health Carolinas Medical Centerin [place] [id number] Eosinophils Auto #/vol (Bld) 0.3 {x10E3/uL} Normal 0.0-0.4 [facility] Work Phone: Eosinophils/100 WBC (Bld) 3 % Normal [facility] Work Phone: Comment on above: PATIENT NOT FASTINGP ERFORMED BY: ANGELI Isabell Weldonlin6370 Mcghee RoadNovant Health [id number] Eosinophils/100 WBC Auto (Bld) 3 % Normal [facility] Work Phone: Erythrocyte distribution width Auto Ratio (RBC) 13.8 % Normal 12.3-15.4 [facility] Work Phone: Erythrocyte distribution width Ratio (RBC) 13.8 % Normal 12.3-15.4 [facility] Work Phone: Comment on above: PATIENT NOT FASTINGP ERFORMED BY: ANGELI Simmons Ikefrd[address] [facility] [id number] Hematocrit Auto Volume Fraction (Bld) 39.9 % Normal 34.0-46.6 [facility] Work Phone: Hematocrit Volume Fraction (Bld) 39.9 % Normal 34.0-46.6 [facility] Work Phone: Comment on above: PATIENT NOT FASTINGP ERFORMED BY: ANGELI [facility] Vjvhbt[address] [facility] [id number] Hemoglobin mass conc (Bld) 13.7 g/dL Normal 11.1-15.9 [facility] Work Phone: Comment on above: PATIENT NOT FASTINGP ERFORMED BY: ANGELI [facility] Rpfbun[address] [facility] [id number] Immature granulocytes #/vol (Bld) 0.0 {x10E3/uL} Normal 0.0-0.1 [facility] Work Phone: Comment on above: PATIENT NOT FASTINGP ERFORMED BY: ANGELI NereydaComauri WeldonEwdziz3233 Mc[address]hee RoadAtrium Health Carolinas Medical Centerin [place] [id number] Immature granulocytes (Bld) [#/Vol] 0.0 10*3/uL Normal 0.0-0.1 [facility] Work Phone: Comment on above: PATIENT NOT FASTINGP ERFORMED BY: LabSaint [facility] Wsolqj3147 [address] [facility]in [place] [id number] Immature granulocytes/100 WBC (Bld) 0 % Normal [facility] Work Phone: Comment on above: PATIENT NOT FASTINGP ERFORMED BY: NereydaSaint [facility] Bhztpi4868 [address] [facility] [id number] Lymphocytes #/vol (Bld) 3.0 {x10E3/uL} Normal 0.7-3.1 [facility] Work Phone: Comment on above: PATIENT NOT FASTINGP ERFORMED BY: LabSaint [facility] Glujkn4643 [address] [facility]in [place] [id number] Lymphocytes (Bld) [#/Vol] 3.0 10*3/uL Normal 0.7-3.1 [facility] Work Phone: Comment on above: PATIENT NOT FASTINGP ERFORMED BY: LabMonica Ville 42460[address] [facility] [id number] Lymphocytes Auto #/vol (Bld) 3.0 {x10E3/uL} Normal 0.7-3.1 [facility] Work Phone: Lymphocytes/100 WBC (Bld) 38 % Normal [facility] Work Phone: Comment on above: PATIENT NOT FASTINGP ERFORMED BY: LabCo Zjkjyr3896 [address] RoadAtrium Health Carolinas Medical Centerin [place] [id number] Lymphocytes/100 WBC Auto (Bld) 38 % Normal [facility] Work Phone: MCH Auto Entitic mass (RBC) 29.8 pg Normal 26.6-33.0 [facility] Work Phone: MCH Entitic mass (RBC) 29.8 pg Normal 26.6-33.0 Co [facility] Internal Medicine Work Phone: Comment on above: PATIENT NOT FASTINGP ERFORMED BY: [facility] Xrehsg2911 [facility] [id number] MCHC Auto mass conc (RBC) 34.3 g/dL Normal 31.5-35.7 [facility] Work Phone: MCHC mass conc (RBC) 34.3 g/dL Normal 31.5-35.7 [facility] Internal Medicine Work Phone: Comment on above: PATIENT NOT FASTINGP ERFORMED BY: LabCoHunterdon Medical CenterQknijh3515 [facility] [id number] MCV Auto Entitic volume (RBC) 87 fL Normal 79-97 [facility] Work Phone: MCV Entitic volume (RBC) 87 fL Normal 79-97 [facility] Work Phone: Comment on above: PATIENT NOT FASTINGP ERFORMED BY: [facility] Orrrib4688 [facility] [id number] Monocytes #/vol (Bld) 0.6 {x10E3/uL} Normal 0.1-0.9 [facility] Work Phone: Comment on above: PATIENT NOT FASTINGP ERFORMED BY: [facility] Pdbeum9937 [facility] [id number] Monocytes (Bld) [#/Vol] 0.6 10*3/uL Normal 0.1-0.9 [facility] Work Phone: Comment on above: PATIENT NOT FASTINGP ERFORMED BY: [facility] Pbqukf3674 [facility] [id number] Monocytes Auto #/vol (Bld) 0.6 {x10E3/uL} Normal 0.1-0.9 [facility] Work Phone: Monocytes/100 WBC (Bld) 7 % Normal C omprehensive Internal Medicine Work Phone: Comment on above: PATIENT NOT FASTINGP ERFORMED BY: CB [facility] Qfxcvk0139 [address] RoadDublin [place] [id number] Monocytes/100 WBC Auto (Bld) 7 % Normal [facility] Work Phone: Neutrophils #/vol (Bld) 3.9 {x10E3/uL} Normal 1.4-7.0 [facility] Work Phone: Comment on above: PATIENT NOT FASTINGP ERFORMED BY: CB [facility] Mpxqjd3147 [address] RoadDublin [place] [id number] Neutrophils (Bld) [#/Vol] 3.9 10*3/uL Normal 1.4-7.0 [facility] Work Phone: Comment on above: PATIENT NOT FASTINGP ERFORMED BY: CB [facility] Sweiin8776 [address] RoadDublin [place] [id number] Neutrophils Auto #/vol (Bld) 3.9 {x10E3/uL} Normal 1.4-7.0 [facility] Work Phone: Neutrophils/100 WBC (Bld) 51 % Normal [facility] Work Phone: Comment on above: PATIENT NOT FASTINGP ERFORMED BY: CB [facility] Hcxhbq6842 [address] RoadDublin [place] [id number] Neutrophils/100 WBC Auto (Bld) 51 % Normal [facility] Work Phone: Platelets #/vol (Bld) 145 {x10E3/uL} Abnormal 150-379 [facility] Work Phone: Comment on above: PATIENT NOT FASTINGP ERFORMED BY: CB [facility] Wxwepd4643 [address] RoadDublin [place] [id number] Platelets (Bld) [#/Vol] 145 10*3/uL Abnormal 150-379 [facility] Work Phone: Comment on above: PATIENT NOT FASTINGP ERFORMED BY: CB [facility] Qxmdaa5932 [address] RoadDublin [place] [id number] Platelets Auto #/vol (Bld) 145 {x10E3/uL} Abnormal 150-379 [facility] Work Phone: RBC #/vol (Bld) 4.59 {x10E6/uL} Normal 3.77-5.28 Comp [facility] Internal Medicine Work Phone: Comment on above: PATIENT NOT FASTINGP ERFORMED BY: CB [facility] Mookzh8[address] [facility] [id number] RBC (Bld) [#/Vol] 4.59 10*6/uL Normal 3.77-5.28 Compr [facility] Internal Medicine Work Phone: Comment on above: PATIENT NOT FASTINGP ERFORMED BY: CB [facility] Uughij40[address] [facility] [id number] RBC Auto #/vol (Bld) 4.59 {x10E6/uL} Normal 3.77-5.28 [facility] Work Phone: WBC #/vol (Bld) 7.8 {x10E3/uL} Normal 3.4-10.8 [facility] Internal Medicine Work Phone: Comment on above: PATIENT NOT FASTINGP ERFORMED BY: CB [facility] Kcshlj8582 [facility] [id number] WBC (Bld) [#/Vol] 7.8 10*3/uL Normal 3.4-10.8 [facility] Internal [facility] Work Phone: Comment on above: PATIENT NOT FASTINGP ERFORMED BY: CB [facility] Cstxtp0232 [facility] [id number] WBC Auto #/vol (Bld) 7.8 {x10E3/uL} Normal 3.4-10.8 [facility] Internal Medicine Work Phone: HgA1C , Office ([id number])Ordere d By: Latrice Levy on 09-30-2016 Hemoglobin A1c/Hemoglobin.total mass fraction (Bld) 9.7 % Abnormal 4.6 - 7.1 Comprehensiv e Internal Medicine Work Phone: METABOLIC PANEL, COMPREHENSI VE ([id number])Ordered By: [employer] on 09-30-2016 Albumin mass conc 4.4 g/dL Normal 3.5-4.8 [facility] Internal Medicine Work Phone: Comment on above: PATIENT NOT FASTINGP ERFORMED BY: ANGELI [facility] Pwelbe0820 [address] RoadDublin [place] [id number] Albumin/Globulin mass ratio 1.3 {ratio} Normal 1.1-2.5 [facility] Work Phone: Comment on above: PATIENT NOT FASTINGP ERFORMED BY: CB [facility] Qbculv4386 [address] RoadDublin [place] [id number] ALP [Catalytic activity/Vol] 90 U/L Normal 39-117 [facility] Work Phone: Comment on above: PATIENT NOT FASTINGP ERFORMED BY: CB [facility] Tazkeg3835 [address] RoadDublin [place] [id number] ALP enzyme act/vol 90 [iU]/L Normal 39-117 [facility] Internal Medicine Work Phone: Comment on above: PATIENT NOT FASTINGP ERFORMED BY: CB [facility] Okmsrt3994 [address] RoadDublin [place] [id number] ALT [Catalytic activity/Vol] 83 U/L Abnormal 0-32 [facility] Work Phone: Comment on above: PATIENT NOT FASTINGP ERFORMED BY: CB [facility] Jjapol8976 [address] RoadDublin [place] [id number] ALT enzyme act/vol 83 [iU]/L Abnormal 0-[address] [facility] Internal Medicine Work Phone: Comment on above: PATIENT NOT FASTINGP ERFORMED BY: CB [facility] Xqzass6873 [address] RoadDublin [place] [id number] AST [Catalytic activity/Vol] 81 U/L Abnormal 0-40 [facility] Work Phone: Comment on above: PATIENT NOT FASTINGP ERFORMED BY: CB [facility] Tolhvw8546 [address] RoadDublin [place] [id number] AST enzyme act/vol 81 [iU]/L Abnormal 0-40 [facility] Internal Medicine Work Phone: Comment on above: PATIENT NOT FASTINGP ERFORMED BY: CB [facility] Orsmct6504 [address] RoadDublin [place] [id number] Bilirubin mass conc 0.3 mg/dL Normal 0.0-1.2 Compr ehensive Internal Medicine Work Phone: Comment on above: PATIENT NOT FASTINGP ERFORMED BY: CB [facility] Yihwmo7797 [address] RoadDublin [place] [id number] Calcium mass conc 9.9 mg/dL Normal 8.7-10.3 Compreh ensive Internal Medicine Work Phone: Comment on above: PATIENT NOT FASTINGP ERFORMED BY: CB [facility] Luxwqi6151 [address] RoadDublin [place] [id number] Chloride molar conc 98 mmol/L Normal 97-106 Compr ensive Internal Medicine Work Phone: Comment on above: PATIENT NOT FASTINGP ERFORMED BY: CB [facility] Ctcyzp7345 [address] RoadDublin [place] [id number] CO2 molar conc 22 mmol/L Normal 18-29 Comprehens michael Internal Medicine Work Phone: Comment on above: PATIENT NOT FASTINGP ERFORMED BY: CB [facility] Puldtg2592 [address] RoadDublin [place] [id number] Creatinine mass conc 0.68 mg/dL Normal 0.57-1.00 Comp [facility]erensive Internal Medicine Work Phone: Comment on above: PATIENT NOT FASTINGP ERFORMED BY: CB [facility] Lkibch7721 [address] RoadDublin [place] [id number] GFR/1.73 sq M predicted among blacks CKD-EPI vol rate/area (S/P/Bld) 102 mL/min/1.73 Normal Comprehe nsive Internal Medicine Work Phone: Comment on above: PATIENT NOT FASTINGP ERFORMED BY: CB [facility] Fgrrnl4618 [address] RoadDublin [place] [id number] GFR/1.73 sq M predicted among non-blacks CKD-EPI vol rate/area (S/P/Bld) 88 mL/min/1.73 Normal [facility] Work Phone: Comment on above: PATIENT NOT FASTINGP ERFORMED BY: CB [facility] Flhcxu9442 [address] RoadDublin [place] [id number] Globulin Calculated mass conc (S) 3.4 g/dL Normal 1.5-4.5 [facility] Work Phone: Globulin mass conc (S) 3.4 g/dL Normal 1.5-4.5 Co mprehensive [facility] Medicine Work Phone: Comment on above: PATIENT NOT FASTINGP ERFORMED BY: CB [facility] Dcayem0847 [address] RoadDublin [place] [id number] Glucose mass conc 177 mg/dL Abnormal 65-99 Compreh ensive Internal Medicine Work Phone: Comment on above: PATIENT NOT FASTINGP ERFORMED BY: CB [facility] Camwxi6830 [address] RoadDublin [place] [id number] Potassium molar conc 4.4 mmol/L Normal 3.5-5.2 Comp rehensive Internal Medicine Work Phone: Comment on above: PATIENT NOT FASTINGP ERFORMED BY: CB [facility] Yrdpqf8580 [address] RoadDublin [place] [id number] Protein mass conc 7.8 g/dL Normal 6.0-8.5 Compreh ensive Internal Medicine Work Phone: Comment on above: PATIENT NOT FASTINGP ERFORMED BY: CB [facility] Gpgcwu0144 [address] RoadDublin [place] [id number] Sodium molar conc 139 mmol/L Normal 136-144 Compreh ensive Internal Medicine Work Phone: Comment on above: PATIENT NOT FASTINGP ERFORMED BY: CB [facility] Upvcoi4591 [address]gehe RoadDublin [place] [id number] Urea nitrogen mass conc 15 mg/dL Normal 8-27 C omprehensive Internal Medicine Work Phone: Comment on above: PATIENT NOT FASTINGP ERFORMED BY: CB [facility] Jtkohd2329 [address] RoadDublin [place] [id number] Urea nitrogen/Creatinine mass ratio 22 mg/mg Normal 11-26 [facility] Work Phone: Comment on above: PATIENT NOT FASTINGP ERFORMED BY: ANGELI [facility] Kzilbv8573 [address] RoadDublin [place] [id number] MICROALBUMINOrdered By: Syst em Relations Director on 09-30-2016 Albumin DL <= 20 mg/L mass conc (U) 37.8 ug/mL Normal [facility] Work Phone: Comment on above: PATIENT NOT FASTINGP ERFORMED BY: ANGELI [facility] Flacmu8300 [address] RoadDublin [place] [id number] Albumin/Creatinine mass ratio (U) 44.0 {mg/g_creat} Abnormal 0.0-30.0 [facility] Work Phone: Comment on above: PATIENT NOT FASTINGP ERFORMED BY: ANGELI [facility] Nmgbrw8721 [address] RoadDublin [place] [id number] Creatinine mass conc (U) 85.9 mg/dL Normal [facility] Work Phone: Comment on above: PATIENT NOT FASTINGP ERFORMED BY: ANGELI [facility] Xtrrcr6056 [address] RoadDublin [place] [id number] TSH (THYROID STIMULATING HOR BARRON) ([id number])Ordered By: [employer] on 09-30-2016 Thyrotropin Qn 4.020 {uIU/mL} Normal 0.450-4.50 0 [facility] Work Phone: Comment on above: PATIENT NOT FASTINGP ERFORMED BY: ANGELI [facility] Qmgkux4923 [address] RoadDublin [place] [id number] URINALYSIS ([id number])Ordered By : [employer] on 09-30-2016 Appearance Nom (U) Clear Normal Compre hensive Internal Medicine Work Phone: Comment on above: PATIENT NOT FASTINGP ERFORMED BY: ANGELI [facility] Esoeks2280 [address] RoadDublin [place] [id number] Bilirubin Ql (U) Negative Normal Comprehe nsive Internal Medicine Work Phone: Comment on above: PATIENT NOT FASTINGP ERFORMED BY: ANGELI [facility] Usobhc5994 [address] RoadDublin [place] [id number] Bilirubin Ql (U) Negative Normal Comprehe nsive Internal Medicine Work Phone: Comment on above: PATIENT NOT FASTINGP ERFORMED BY: ANGELI [facility] Hoabic5325 [address] RoadDublin [place] [id number] Color Nom (U) Yellow Normal Comprehensi ve Internal Medicine Work Phone: Comment on above: PATIENT NOT FASTINGP ERFORMED BY: ANGELI [facility] Ptsqns0095 [address] RoadDublin [place] [id number] Glucose Ql (U) Trace Abnormal Comprehens michael Internal Medicine Work Phone: Comment on above: PATIENT NOT FASTINGP ERFORMED BY: ANGELI [facility] Gdxkhn3013 [address] RoadDublin [place] [id number] Hemoglobin Ql (U) Negative Normal Compreh ensive Internal Medicine Work Phone: Comment on above: PATIENT NOT FASTINGP ERFORMED BY: ANGELI [facility] Netksf2071 [address] RoadDublin [place] [id number] Hemoglobin Ql (U) Negative Normal Compreh ensive Internal Medicine Work Phone: Comment on above: PATIENT NOT FASTINGP ERFORMED BY: ANGELI [facility] Rrdasl5591 [address] RoadDublin [place] [id number] Hemoglobin Test strip Ql (U) Negative Normal [facility] Work Phone: Ketones Ql (U) Negative Normal Comprehens michael Internal Medicine Work Phone: Comment on above: PATIENT NOT FASTINGP ERFORMED BY: ANGELI [facility] Jdfimq7231 [address] RoadDublin [place] [id number] Ketones Ql (U) Negative Normal Comprehens michael Internal Medicine Work Phone: Comment on above: PATIENT NOT FASTINGP ERFORMED BY: CB [facility] Zekkkh2882 [address] RoadDublin [place] [id number] Leukocyte esterase Test strip Ql (U) Negative Normal [facility] Work Phone: Comment on above: PATIENT NOT FASTINGP ERFORMED BY: ANGELI [facility] Tewlwh8330 [address] RoadDublin [place] [id number] Leukocyte esterase Test strip Ql (U) Negative Normal [facility] Work Phone: Comment on above: PATIENT NOT FASTINGP ERFORMED BY: ANGELI LabDajuan WeldonSfwcgk4342 [address] RoadDublin [place] [id number] Microscopic observation LM Nom (Urine sed) MICNIP Normal [facility] Work Phone: Comment on above: Microscopic not negro cated and not performed. PATIENT NOT FASTINGP ERFORMED BY: ANGELI LabDajuan WeldonRjjqah0817 [address] RoadDublin [place] [id number] Nitrite Ql (U) Negative Normal Comprehens michael Internal Medicine Work Phone: Comment on above: PATIENT NOT FASTINGP ERFORMED BY: ANGELI LabComauri WeldonKbzjdx3143 [address] RoadDublin [place] [id number] Nitrite Ql (U) Negative Normal Comprehens michael Internal Medicine Work Phone: Comment on above: PATIENT NOT FASTINGP ERFORMED BY: ANGELI Weldonlin6370 [address] RoadDublin [place] [id number] Nitrite Test strip Ql (U) Negative Normal [facility] Work Phone: pH (U) 6.0 [pH] Normal 5.0-7.5 [facility] Work Phone: Comment on above: PATIENT NOT FASTINGP ERFORMED BY: ANGELI Weldonlin6370 [address] RoadDublin [place] [id number] pH Test strip (U) 6.0 [pH] Normal 5.0-7.5 Compreh ensive Internal Medicine Work Phone: Protein Ql (U) Trace Normal Comprehens michael Internal Medicine Work Phone: Comment on above: PATIENT NOT FASTINGP ERFORMED BY: ANGELI [facility] Giuuaf5905 [address] RoadDublin [place] [id number] Protein Test strip Ql (U) Trace Normal [facility] Work Phone: Specific gravity Relative Density (U) 1.020 1 Normal 1.005-1.03 0 [facility] Work Phone: Comment on above: PATIENT NOT FASTINGP ERFORMED BY: ANGELI LabComauri WeldonTpiore7828 [address] RoadDublin [place] [id number] Urobilinogen (U) [Mass/Vol] 1.0 mg/dL Normal 0.2-1.0 [facility] Work Phone: Comment on above: PATIENT NOT FASTINGP ERFORMED BY: ANGELI DawnComauri CoelloFirrxq4569 iLtzy Rosasbljimmy [place] [id number] Urobilinogen Test strip mass conc (U) 1.0 mg/dL Normal 0.2-1.0 [facility] Work Phone: Comment on above: PATIENT NOT FASTINGP ERFORMED BY: [facility] Uttodu[address] [facility] [id number] PELVIC (NON )Ordered By: [employer] on 08-24-2013 PELVIC (NON ) See Note Normal Com prehensive Internal Medicine Work Phone: Comment on above: STUDY: ULTRASOUND OF THE FEMALE PELVIS - COMPLETE REASON FOR EXAM: Female, 68 years old. LMP: The patient ispostmenopausal. Pelvic pain. TECHNIQUE: Transabdominal TECHNICAL QUALITY: Adequate. COMPARISON: None. FINDINGS:The uterus is anteverted and is in a midline position. The uterusmeasures8.9 cm x 3.6 cm x 1.7 cm. Normal uterine cervix. The endometriummeasures2.8 mm in thickness, and is hyperechoic. There is no demonstratedendometrial mass. There is no demonstrated myometrial mass. I.U.D. -No The right ovary is visualized. The right ovary measures 1.7 cm x 1.4 cmx0.8 cm. There is no right ovarian cyst or ovarian mass. There is novisualized right adnexal mass or complex lesion. There is normal arterialand normal venous vascularity. The left ovary is non-visualized. There is no fluid in the cul-de-sac. IMPRESSION:Normal female pelvis. Signed:Fernando Ford M.D.August 24, 2013 at 1:44:02 PM [id number] Signed GP/GP If you are the referring physician and would like to consult with theradiologist who provided this interpretation, please contact Radha Graves at [phone]. If this radiologist is unavailable, youwill be directed to another radiologist to assist. If you are a patient with a question regarding this report, pleasecontactyour referring physician directly. Professional Interpretation Provided By: [employer], Phone , These documents contain legally protected and confidential healthinformation intended only for the use of the individual or entity namedabove. If you are not the intended recipient, you are hereby notifiedthatany disclosure, copying, distribution, or other use of these documents isstrictly prohibited. If you have received this information in error,pleasenotify the sender immediately and arrange for the return or destructionofthese documents. Dictated on 08/24/13 1344 by Camron Ford MDranscribed on 08/24/13 1346 by ITS IMPORTSign by Fernando Ford MD on 08/24/13 1347 Sign by: Fernando Ford MD STUDY: ABDOMINAL ULT RASOUND REASON FOR EXAM: Female, 68 years old. Abdominal pain. TECHNIQUE: Transabdominal ultrasound was performed with real-time andstatic bauer scale imaging. TECHNICAL QUALITY: Adequate. COMPARISON: None. FINDINGS: Liver: The liver measures 12.3 cm. There is increased echogenicityconsistent with fatty infiltration. The bile ducts are within normallimits. There is hepatic color flow. The direction of portal flow ishepatopetal. There is no demonstrated mass lesion. Gallbladder: Normal distended gallbladder. The gallbladder wallmeasures1.7 mm. There is a negative sonographic Anguiano's sign. There is nopericholecystic fluid. There is a solitary echogenic gallstone withinthegallbladder. It measures 1.5 cm. Common Bile Duct (C.B.D.): The common bile duct measures 4.3 mm. Pancreas: Normal size of the head, body and tail of the pancreas.Thereis increased echogenicity of the pancreas. There is no demonstratedpancreatic mass or cyst. Spleen: Normal size of the spleen. The spleen measures 10.5 cm x 2.2 cmx3.4 cm. Right Kidney: Normal size of the right kidney. The right wbgjtzwhdxiinj79.3 cm. Normal renal cortex. The right cortex measures 1.1 cm. Thereisno demonstrated renal mass or cyst. There is no right hydronephrosis. Left Kidney: Normal size of the left kidney. The left kidney hksubcmx54.4cm. Normal renal cortex. The left cortex measures 1.2 cm. There is a3.6cm x 3.2 cm lobulated high signal density in the lateral portion of thekidney. This most likely represents a renal lobulation although a masslesion cannot be excluded. Correlation with the CT scan of the kidneysfollowing IV contrast is recommended. There is no left hydronephrosis. There is no ascites. IMPRESSION:Fatty infiltration of the liver.Solitary gallstone.Lobulated density in the lateral portion of the left kidney as described.Followup with a CT scan of the kidneys is recommended. Signed:Fernando Ford M.D.August 24, 2013 at 1:03:34 PM [id number] Signed GP/GP If you are the referring physician and would like to consult with theradiologist who provided this interpretation, please contact Radha Graves at [phone]. If this radiologist is unavailable, youwill be directed to another radiologist to assist. If you are a patient with a question regarding this report, pleasecontactyour referring physician directly. Professional Interpretation Provided By: [employer], Phone , These documents contain legally protected and confidential healthinformation intended only for the use of the individual or entity namedabove. If you are not the intended recipient, you are hereby notifiedthatany disclosure, copying, distribution, or other use of these documents isstrictly prohibited. If you have received this information in error,pleasenotify the sender immediately and arrange for the return or destructionofthese documents. Dictated on 08/24/13 1303 by Liliana CLEMONS,JosuérieleTranscribed on 08/24/13 1308 by ITS IMPORTSign by Liliana CLMEONS,Fernando on 08/24/13 1309 Sign by: Liliana CLEMONS,Fernando Nuclear Stress TestOrdered B y: [employer] on 08-17-2013 Nuclear Stress Test See Note Normal Compr ehensive Internal Medicine Work Phone: Comment on above: EXERCISE TOLERANCE T EST: The patient underwent pharmacologic (regadenoson) evaluation with a peakheart rate of 120 beats per minute (78% predicted maximum heart rate) daisy peak blood pressure of 132/80 mmHg. The baseline ECG demonstrated normal sinus rhythm. The peakpharmacologic ECG demonstrated continued sinus rhythm with no obvious ECGchanges. There were no obvious cardiac dysrhythmias pretest, during pharmacologicinfusion, or recovery. The patient had no complaint of chest discomfort during pharmacologicinfusion or recovery. The examination was discontinued secondary to completion of protocol. IMPRESSION:1. Pharmacologic (regadenoson) evaluation.2. Peak pharmacologic ECG with no obvious ECG changes.3. Nuclear images pending. MYOCARDIAL PERFUSION IMAGING STUDY: TECHNIQUE:The patient was injected with 12.0 mCi of Tc99m Cardiolite andsubsequently rest SPECT Cardiolite nuclear imaging was obtained in thehorizontal long, vertical long and short axes views. The patientunderwent pharmacologic (Regadenoson) evaluation with a peak heart rateof 120 beats per minute (78% predicted maximum heart rate) with a peakblood pressure of 132/80 mmHg. The patient was injected with 40.5 mCi [id number] Cardiolite and subsequently stress SPECT Cardiolite nuclear imagingwas obtained in the horizontal long, vertical long and short axes views.A gated Cardiolite study at peak stress was obtained. INTERPRETATION:Rest and stress SPECT Cardiolite nuclear imaging both demonstrateextracardiac/hepatic and gastrointestinal tracer uptake near the inferiorsegments. Otherwise there appears to be relative uniform tracer uptakeand myocardial perfusion appearing within normal limits. There is nomyocardial perfusion deficits noted on the stress polar map images.There is end systolic thickening and brightening. The gated Cardiolitestudy demonstrates myocardial thickening and inward wall motion. Thereported LVEF is 85%. IMPRESSION:1. Rest and stress SPECT Cardiolite nuclear imaging demonstratesrelative uniform tracer uptake and myocardial perfusion appearing withinnormal limits.2. The gated Cardiolite study reports an LVEF of 85%. Dictated on 08/17/13 1014 by Mavis CLEMONS,PapaTranscribed on 08/17/13 1410 by Ailyn ROMO by Mavis CLEMONS,Papa on 08/17/13 173 Sign by: Papa Gamble MD CALCIFEDIOL ([id number])Ordered B y: [employer] on 08-15-2013 25-Hydroxyvitamin D2+25-Hydroxyvitamin D3 mass conc 12.0 ng/mL Abnormal 30.0-100.0 [facility] Work Phone: Comment on above: Vitamin D deficiency has been defined by the Gordon ofMedicine and an Endocrine Society practice guideline as alevel of serum 25-OH vitamin D less than 20 ng/mL (1,2).The Endocrine Society went on to further define vitamin Dinsufficiency as a level between 21 and 29 ng/mL (2).1. IOM (Gordon of Medicine). 2010. Dietary reference intakes for calcium and D. [place]: The National Academies Press.2. Ace MF, Lurdes WELLS, Cynthia COFFMAN, et al. Evaluation, treatment, and prevention of vitamin D deficiency: an Endocrine Society clinical practice guideline. JCEM. 2010; 96(7):1911-30. PATIENT NOT FASTINGP ERFORMED BY: [facility] Eapxtd8952 [facility] [id number] HEPATIC FUNCTION PANEL ([id number] [id number])Ordered By: [employer] on 08-15-2013 Albumin mass conc 4.5 g/dL Normal 3.6-4.8 Compreh ensive Internal Medicine Work Phone: Comment on above: PATIENT NOT FASTINGP ERFORMED BY: ANGELI Isabell Coello[address] [facility] [id number] Information: ADD [id number] AND DRAW FEE 99 6660 ALP [Catalytic activity/Vol] 79 U/L Normal 47-112 [facility] Work Phone: Comment on above: PATIENT NOT FASTINGP ERFORMED BY: ANGELI LabDajuan Cwxfrw[address] [facility] [id number] Information: ADD [id number] AND DRAW FEE 99 6660 ALP enzyme act/vol 79 [iU]/L Normal 47-[address] [facility] [address] [facility] Internal Medicine Work Phone: Comment on above: PATIENT NOT FASTINGP ERFORMED BY: ANGELI Isabell Weldonlin6370 [facility] [id number] Information: ADD [id number] AND DRAW FEE 99 6660 ALT [Catalytic activity/Vol] 57 U/L Abnormal 0-32 [facility] Work Phone: Comment on above: PATIENT NOT FASTINGP ERFORMED BY: ANGELI Iris Faxkjv8539 [facility] [id number] Information: ADD [id number] AND DRAW FEE 99 6660 ALT enzyme act/vol 57 [iU]/L Abnormal 0-32 [facility] Internal Medicine Work Phone: Comment on above: PATIENT NOT FASTINGP ERFORMED BY: ANGELI NereydaOsman Mlwrwu9231 [facility] [id number] Information: ADD [id number] AND DRAW FEE 99 6660 AST [Catalytic activity/Vol] 39 U/L Normal 0-40 [facility] Work Phone: Comment on above: PATIENT NOT FASTINGP ERFORMED BY: ANGELI Iris Kmcqeo3490 [facility] [id number] Information: ADD [id number] AND DRAW FEE 99 6660 AST enzyme act/vol 39 [iU]/L Normal 0-40 [facility] Internal Medicine Work Phone: Comment on above: PATIENT NOT FASTINGP ERFORMED BY: ANGELI [facility] Klibzz9929 [address] [facility] [place] [id number] Information: ADD [id number] AND DRAW FEE 99 6660 Bilirubin mass conc 0.2 mg/dL Normal 0.0-1.2 Compr ehensive Internal Medicine Work Phone: Comment on above: PATIENT NOT FASTINGP ERFORMED BY: ANGELI [facility] Pomcyo47[address] [facility] [place] [id number] Information: ADD [id number] AND DRAW FEE 99 6660 Bilirubin.direct mass conc 0.08 mg/dL Normal 0.00-0.40 [facility] Work Phone: Comment on above: PATIENT NOT FASTINGP ERFORMED BY: [facility] Ujoioj7[address] [facility] [id number] Information: ADD [id number] AND DRAW FEE 99 6660 Protein mass conc 7.3 g/dL Normal 6.0-8.5 Compreh ensive Internal Medicine Work Phone: Comment on above: PATIENT NOT FASTINGP ERFORMED BY: LabCoHunterdon Medical CenterNowpfp9187 [address] [facility] [id number] Information: ADD [id number] AND DRAW FEE 99 6660 HEPATITIS PANEL ([id number])Order ed By: [employer] on 08-15-2013 HAV IgM IA Ql Negative Normal Comprehensi ve Internal Medicine Work Phone: Comment on above: PATIENT NOT FASTINGP ERFORMED BY: [facility] Ridtlv8814 [address] [facility] [id number] HAV IgM IA Ql Negative Normal Comprehensi ve Internal Medicine Work Phone: Comment on above: PATIENT NOT FASTINGP ERFORMED BY: [facility] Dhpgbe7575 Mcghee RoadAtrium Health Carolinas Medical Centerin [place] [id number] HBV core IgM IA Ql Negative Normal Compre hensive Internal Medicine Work Phone: Comment on above: PATIENT NOT FASTINGP ERFORMED BY: [facility] Dtkipv4199 Mcg[address] RoadNovant Health [id number] HBV core IgM IA Ql Negative Normal Compre hensive Internal Medicine Work Phone: Comment on above: PATIENT NOT FASTINGP ERFORMED BY: [facility]6370 [facility] [id number] HBV surface Ag IA Ql Negative Normal Comp rehensive Internal Medicine Work Phone: Comment on above: PATIENT NOT FASTINGP ERFORMED BY: [facility]6370 [facility] [id number] HBV surface Ag IA Ql Negative Normal Comp rehensive Internal Medicine Work Phone: Comment on above: PATIENT NOT FASTINGP ERFORMED BY: [facility]6370 [facility] [id number] HCV Ab Signal/Cutoff IA [Rel units/Vol] {ratio} Normal 0.0-0.9 [facility] Work Phone: Comment on above: Negative: < 0.8 Inde terminate 0.8 - 0.9 Positive: > 0.9 . In order to reduce the incidence of a false positive result, the CDC recommends that all s/co ratios between 1.0 and 10.9 be confirmed by a more specific supplemental or PCR testing. [facility] offers HCV Ab w/Reflex to Verification test #[id number]. PATIENT NOT FASTINGP ERFORMED BY: [facility]6370 [facility] [id number] HCV Ab Signal/Cutoff IA RelACnc {ratio} Normal 0.0-0.9 [facility] Internal Medicine Work Phone: Comment on above: Negative: < 0.8 Inde terminate 0.8 - 0.9 Positive: > 0.9 . In order to reduce the incidence of a false positive result, the CDC recommends that all s/co ratios between 1.0 and 10.9 be confirmed by a more specific supplemental or PCR testing. [facility] offers HCV Ab w/Reflex to Verification test #[id number]. PATIENT NOT FASTINGP ERFORMED BY: [facility]6370 [facility] [id number] T3, FREE (TRIDOTHYRONINE) ([id number] 4529)Ordered By: [employer] on 08-15-2013 T3 free mass conc 2.8 pg/mL Normal 2.0-4.4 Compreh ensive Internal Medicine Work Phone: Comment on above: PATIENT NOT FASTINGP ERFORMED BY: [facility]6370 [facility] [id number] T4, FREE (THYROXINE) (64521) Ordered By: [employer] on 08-15-2013 T4 free mass conc 0.80 ng/dL Abnormal 0.82-1.77 Compreh ensive Internal Medicine Work Phone: Comment on above: PATIENT NOT FASTINGP ERFORMED BY: [facility]6370 [facility] [id number] TSH (THYROID STIMULATING HOR BARRON) (93263)Ordered By: [employer] on 08-15-2013 Thyrotropin Qn 6.740 {uIU/mL} Abnormal 0.450-4.50 0 [facility] Work Phone: Comment on above: PATIENT NOT FASTINGP ERFORMED BY: [facility]6370 [facility] [id number] CBC, Platelets & Auto Diff ( 24407)Ordered By: [employer] on 08-07-2013 Basophils #/vol (Bld) 0.0 {x10E3/uL} Normal 0.0-0.2 [facility] Work Phone: Comment on above: PATIENT WAS FASTINGP ERFORMED BY: [facility]6370 [facility] [id number] Information: [id number] Basophils (Bld) [#/Vol] 0.0 10*3/uL Normal 0.0-0.2 [facility] Work Phone: Comment on above: PATIENT WAS FASTINGP ERFORMED BY: [facility]6370 [facility] [id number] Information: [id number] Basophils Auto #/vol (Bld) 0.0 {x10E3/uL} Normal 0.0-0.2 [facility] Work Phone: Basophils/100 WBC (Bld) 1 % Normal 0-3 C omprehensive Internal Medicine Work Phone: Comment on above: PATIENT WAS FASTINGP ERFORMED BY: [facility]6370 [facility] [id number] Information: [id number] Basophils/100 WBC Auto (Bld) 1 % Normal 0-3 [facility] Work Phone: Eosinophils #/vol (Bld) 0.3 {x10E3/uL} Normal 0.0-0.4 [facility] Work Phone: Comment on above: Please note refere nce interval change PATIENT WAS FASTINGP ERFORMED BY: [place] [address]0570 [facility] [id number] Information: [id number] Eosinophils (Bld) [#/Vol] 0.3 10*3/uL Normal 0.0-0.4 [facility] Work Phone: Comment on above: Please note refere nce interval change PATIENT WAS FASTINGP ERFORMED BY: [place] 7240570 [facility] [id number] Information: [id number] Eosinophils Auto #/vol (Bld) 0.3 {x10E3/uL} Normal 0.0-0.4 [facility] Work Phone: Comment on above: Please note refere nce interval change Eosinophils/100 WBC (Bld) 4 % Normal 0-5 [facility] Work Phone: Comment on above: Please note refere nce interval change PATIENT WAS FASTINGP ERFORMED BY: [place] [address]0570 [facility] [id number] Information: [id number] Eosinophils/100 WBC Auto (Bld) 4 % Normal 0-5 [facility] Work Phone: Comment on above: Please note refere nce interval change Erythrocyte distribution width Auto Ratio (RBC) 14.1 % Normal 12.3-15.4 [facility] Work Phone: Erythrocyte distribution width Ratio (RBC) 14.1 % Normal 12.3-15.4 [facility] Work Phone: Comment on above: PATIENT WAS FASTINGP ERFORMED BY: ANGELI [address] [id number] Information: [id number] Hematocrit Auto Volume Fraction (Bld) 41.7 % Normal 34.0-46.6 [facility] Work Phone: Hematocrit Volume Fraction (Bld) 41.7 % Normal 34.0-46.6 [facility] Work Phone: Comment on above: PATIENT WAS FASTINGP ERFORMED BY: [address] [id number] Information: [id number] Hemoglobin mass conc (Bld) 13.6 g/dL Normal 11.1-15.9 [facility] Work Phone: Comment on above: PATIENT WAS FASTINGP ERFORMED BY: [address] [id number] Information: [id number] Immature granulocytes #/vol (Bld) 0.0 {x10E3/uL} Normal 0.0-0.1 [facility] Work Phone: Comment on above: PATIENT WAS FASTINGP ERFORMED BY: [address] [id number] Information: [id number] Immature granulocytes (Bld) [#/Vol] 0.0 10*3/uL Normal 0.0-0.1 [facility] Work Phone: Comment on above: PATIENT WAS FASTINGP ERFORMED BY: [address] [id number] Information: [id number] Immature granulocytes/100 WBC (Bld) 0 % Normal 0-2 [facility] Work Phone: Comment on above: PATIENT WAS FASTINGP ERFORMED BY: [address] StreetDublin [place] [id number] Information: [id number] Lymphocytes #/vol (Bld) 3.2 {x10E3/uL} Abnormal 0.7-3.1 [facility] Work Phone: Comment on above: Please note refere nce interval change PATIENT WAS FASTINGP ERFORMED BY: [place] [address]0570 [facility] [id number] Information: [id number] Lymphocytes (Bld) [#/Vol] 3.2 10*3/uL Abnormal 0.7-3.1 [facility] Work Phone: Comment on above: Please note refere nce interval change PATIENT WAS FASTINGP ERFORMED BY: ANGELI [place] 2737570 [facility] [id number] Information: [id number] Lymphocytes Auto #/vol (Bld) 3.2 {x10E3/uL} Abnormal 0.7-3.1 [facility] Work Phone: Comment on above: Please note refere nce interval change Lymphocytes/100 WBC (Bld) 44 % Normal 14-46 [facility] Work Phone: Comment on above: Please note refere nce interval change PATIENT WAS FASTINGP ERFORMED BY: [place] [address]240570 [facility] [id number] Information: [id number] Lymphocytes/100 WBC Auto (Bld) 44 % Normal 14-46 [facility] Work Phone: Comment on above: Please note refere nce interval change MCH Auto Entitic mass (RBC) 29.1 pg Normal 26.6-33.0 [facility] Work Phone: MCH Entitic mass (RBC) 29.1 pg Normal 26.6-33.0 [facility] Internal Medicine Work Phone: Comment on above: PATIENT WAS FASTINGP ERFORMED BY: [place] [address]0570 [facility] [id number] Information: [id number] MCHC Auto mass conc (RBC) 32.6 g/dL Normal 31.5-35.7 [facility] Work Phone: MCHC mass conc (RBC) 32.6 g/dL Normal 31.5-35.7 Comp [facility] Internal Medicine Work Phone: Comment on above: PATIENT WAS FASTINGP ERFORMED BY: [address] [id number] Information: [id number] MCV Auto Entitic volume (RBC) 89 fL Normal 79-97 [facility] Work Phone: MCV Entitic volume (RBC) 89 fL Normal 79-97 [facility] Work Phone: Comment on above: PATIENT WAS FASTINGP ERFORMED BY: [address] [id number] Information: [id number] Monocytes #/vol (Bld) 0.7 {x10E3/uL} Normal 0.1-0.9 [facility] Work Phone: Comment on above: Please note refere nce interval change PATIENT WAS FASTINGP ERFORMED BY: [address] [id number] Information: [id number] Monocytes (Bld) [#/Vol] 0.7 10*3/uL Normal 0.1-0.9 [facility] Work Phone: Comment on above: Please note refere nce interval change PATIENT WAS FASTINGP ERFORMED BY: [place] 7240570 [facility] [id number] Information: [id number] Monocytes Auto #/vol (Bld) 0.7 {x10E3/uL} Normal 0.1-0.9 [facility] Work Phone: Comment on above: Please note refere nce interval change Monocytes/100 WBC (Bld) 10 % Normal 4-12 [facility] Work Phone: Comment on above: Please note refere nce interval change PATIENT WAS FASTINGP ERFORMED BY: [facility] Wciopg3373 [facility] [id number] Information: [id number] Monocytes/100 WBC Auto (Bld) 10 % Normal 4-12 [facility] Work Phone: Comment on above: Please note refere nce interval change Neutrophils #/vol (Bld) 2.9 {x10E3/uL} Normal 1.4-7.0 [facility] Work Phone: Comment on above: Please note refere nce interval change PATIENT WAS FASTINGP ERFORMED BY: LabMonica Ville [id number] [facility] [id number] Information: [id number] Neutrophils (Bld) [#/Vol] 2.9 10*3/uL Normal 1.4-7.0 [facility] Work Phone: Comment on above: Please note refere nce interval change PATIENT WAS FASTINGP ERFORMED BY: LabCoHunterdon Medical CenterMakvlf8879 [facility] [id number] Information: [id number] Neutrophils Auto #/vol (Bld) 2.9 {x10E3/uL} Normal 1.4-7.0 [facility] Work Phone: Comment on above: Please note refere nce interval change Neutrophils/100 WBC (Bld) 41 % Normal 40-74 [facility] Work Phone: Comment on above: Please note refere nce interval change PATIENT WAS FASTINGP ERFORMED BY: [facility] Kktaec6029 [facility] [id number] Information: [id number] Neutrophils/100 WBC Auto (Bld) 41 % Normal 40-74 [facility] Work Phone: Comment on above: Please note refere nce interval change Platelets #/vol (Bld) 187 {x10E3/uL} Normal 155-379 [facility] Internal Medicine Work Phone: Comment on above: Please note refere nce interval change PATIENT WAS FASTINGP ERFORMED BY: [place] 7240570 [facility] [id number] Information: [id number] Platelets (Bld) [#/Vol] 187 10*3/uL Normal 155-379 [facility] Internal Medicine Work Phone: Comment on above: Please note refere nce interval change PATIENT WAS FASTINGP ERFORMED BY: [address] [id number] Information: [id number] Platelets Auto #/vol (Bld) 187 {x10E3/uL} Normal 155-379 [facility] Internal Medicine Work Phone: Comment on above: Please note refere nce interval change RBC #/vol (Bld) 4.68 {x10E6/uL} Normal 3.77-5.28 [facility] Internal Medicine Work Phone: Comment on above: PATIENT WAS FASTINGP ERFORMED BY: [place] 7240570 [facility] [id number] Information: [id number] RBC (Bld) [#/Vol] 4.68 10*6/uL Normal 3.77-5.28 [facility] Internal Medicine Work Phone: Comment on above: PATIENT WAS FASTINGP ERFORMED BY: [place] 7240570 [facility] [id number] Information: [id number] RBC Auto #/vol (Bld) 4.68 {x10E6/uL} Normal 3.77-5.28 [facility] Internal Medicine Work Phone: WBC #/vol (Bld) 7.1 {x10E3/uL} Normal 3.4-10.8 [facility] Internal Medicine Work Phone: Comment on above: Please note refere nce interval change PATIENT WAS FASTINGP ERFORMED BY: ANGELI [facility] Skcaeg8367 [address] UnioncyNov[facility] Health [id number] Information: [id number] WBC (Bld) [#/Vol] 7.1 10*3/uL Normal 3.4-10.8 [facility] Internal Medicine Work Phone: Comment on above: Please note refere nce interval change PATIENT WAS FASTINGP ERFORMED BY: ANGELI [facility] Twgndf2316 [address] UnioncyNov[facility] Health [id number] Information: [id number] WBC Auto #/vol (Bld) 7.1 {x10E3/uL} Normal 3.4-10.8 [facility] Work Phone: Comment on above: Please note refere nce interval change DDIMQOrdered By: Natalya merino on 08-07-2013 DDIMQ 0.46 {FEUug/mL} Normal 0.22-0.48 [facility] Internal Medicine Work Phone: Comment on above: NORMAL D-Dimer level indicates no DVT or PE. HgA1C , Office ([id number])Ordere d By: Melonie Lanza on 08-07-2013 Hemoglobin A1c/Hemoglobin.total mass fraction (Bld) 6.4 % Normal 4.6 - 7.1 Comprehensiv e Internal Medicine Work Phone: Lipid Panel ([id number])Ordered B y: [employer] on 08-07-2013 Cholesterol in HDL mass conc 56 mg/dL Normal [facility] Work Phone: Comment on above: According to ATP-III Guidelines, HDL-C >59 mg/dL is considered anegative risk factor for CHD. PATIENT WAS FASTINGP ERFORMED BY: [facility] Fcsocu9025 [facility] [id number] Cholesterol in LDL mass conc 206 mg/dL Abnormal 0-99 [facility] Work Phone: Comment on above: PATIENT WAS FASTINGP ERFORMED BY: ANGELI LabComauri Auvhuv0268 Mc[address] RoadDublin [place] [id number] Cholesterol in LDL/Cholesterol in HDL mass ratio 3.7 {ratio_units} Abnormal 0.0-3.2 [facility] Work Phone: Comment on above: PATIENT WAS FASTINGP ERFORMED BY: ANGELI LabComauri Ngkajj7865 Mcghee RoadDublin [place] [id number] Cholesterol in VLDL mass conc 24 mg/dL Normal 5-40 [facility] Work Phone: Comment on above: PATIENT WAS FASTINGP ERFORMED BY: ANGELI LabComauri WeldonQuetex3357 [address] RoadDublin [place] [id number] Cholesterol mass conc 286 mg/dL Abnormal 100-199 Com prehensive Internal Medicine Work Phone: Comment on above: PATIENT WAS FASTINGP ERFORMED BY: ANGELI LabDajuan WeldonJqjrww8008 Mc[address] Roadblin [place] [id number] Triglyceride mass conc 118 mg/dL Normal 0-149 [facility] Internal Medicine Work Phone: Comment on above: PATIENT WAS FASTINGP ERFORMED BY: ANGELI LabDajuan WeldonXalxic[address] [facility]bl[facility] [place] [id number] Metabolic Panel, Comprehensi ve ([id number])Ordered By: [employer] on 08-07-2013 Albumin mass conc 4.5 g/dL Normal 3.6-4.8 Compreh ensive Internal Medicine Work Phone: Comment on above: PATIENT WAS FASTINGP ERFORMED BY: ANGELI LabComauri Hvvlab3572 [address] RoadDublin [place] [id number] Albumin/Globulin mass ratio 1.5 {ratio} Normal 1.1-2.5 [facility] Work Phone: Comment on above: PATIENT WAS FASTINGP ERFORMED BY: ANGELI LabDajuan Oefpog8216 [address] RoadDublin [place] [id number] ALP [Catalytic activity/Vol] 79 U/L Normal 47-112 [facility] Work Phone: Comment on above: PATIENT WAS FASTINGP ERFORMED BY: ANGELI [facility] Wibwrh2106 [address] RoadDublin [place] [id number] ALP enzyme act/vol 79 [iU]/L Normal 47-112 [facility] Internal Medicine Work Phone: Comment on above: PATIENT WAS FASTINGP ERFORMED BY: ANGELI [facility] Nzbkco6366 [address] RoadDublin [place] [id number] ALT [Catalytic activity/Vol] 81 U/L Abnormal 0-32 [facility] Internal Medicine Work Phone: Comment on above: PATIENT WAS FASTINGP ERFORMED BY: ANGELI [facility] Hewnqg2263 [address] RoadDublin [place] [id number] ALT enzyme act/vol 81 [iU]/L Abnormal 0-32 [facility] Internal Medicine Work Phone: Comment on above: PATIENT WAS FASTINGP ERFORMED BY: ANGELI [facility] Yzrgtr[address] RoadDublin [place] [id number] AST [Catalytic activity/Vol] 65 U/L Abnormal 0-40 [facility] Internal Medicine Work Phone: Comment on above: PATIENT WAS FASTINGP ERFORMED BY: ANGELI [facility] [id number] [address]hee RoadDublin [place] [id number] AST enzyme act/vol 65 [iU]/L Abnormal 0-40 [facility] Internal Medicine Work Phone: Comment on above: PATIENT WAS FASTINGP ERFORMED BY: ANGELI [facility] [id number] [address]hee RoadDublin [place] [id number] Bilirubin mass conc 0.3 mg/dL Normal 0.0-1.2 [facility] Internal Medicine Work Phone: Comment on above: PATIENT WAS FASTINGP ERFORMED BY: ANGELI [facility] [id number] Mcghee RoadDublin [place] [id number] Calcium mass conc 10.0 mg/dL Normal 8.6-10.2 [facility] Internal Medicine Work Phone: Comment on above: PATIENT WAS FASTINGP ERFORMED BY: ANGELI [facility] [id number] [address] RoadDublin [place] [id number] Chloride molar conc 105 mmol/L Normal 97-108 Compr ehensive Internal Medicine Work Phone: Comment on above: PATIENT WAS FASTINGP ERFORMED BY: ANGELI [facility] [id number] [facility] [place] [id number] CO2 molar conc 24 mmol/L Normal 19-28 Comprehens michael Internal Medicine Work Phone: Comment on above: PATIENT WAS FASTINGP ERFORMED BY: ANGELI [facility] [id number] [facility] [id number] Creatinine mass conc 0.68 mg/dL Normal 0.57-1.00 Comp [facility]erens[facility] Internal Medicine Work Phone: Comment on above: PATIENT WAS FASTINGP ERFORMED BY: ANGELI [facility] [id number] [facility] [id number] GFR/1.73 sq M predicted among blacks CKD-EPI vol rate/area (S/P/Bld) 104 mL/min/1.73 Normal Comprehe nsive Internal Medicine Work Phone: Comment on above: PATIENT WAS FASTINGP ERFORMED BY: ANGELI [facility] [id number] [facility] [id number] GFR/1.73 sq M predicted among non-blacks CKD-EPI vol rate/area (S/P/Bld) 90 mL/min/1.73 Normal [facility] Work Phone: Comment on above: PATIENT WAS FASTINGP ERFORMED BY: ANGELI [facility] [id number] [facility] [id number] Globulin Calculated mass conc (S) 3.0 g/dL Normal 1.5-4.5 [facility] Work Phone: Globulin mass conc (S) 3.0 g/dL Normal 1.5-4.5 [facility] Work Phone: Comment on above: PATIENT WAS FASTINGP ERFORMED BY: ANGELI [facility] [id number] [facility] [place] [id number] Glucose mass conc 82 mg/dL Normal 65-99 Compreh ensive Internal Medicine Work Phone: Comment on above: PATIENT WAS FASTINGP ERFORMED BY: ANGELI [facility] [id number] [address] RoadDublin [place] [id number] Potassium molar conc 4.9 mmol/L Normal 3.5-5.2 Comp rehensive Internal Medicine Work Phone: Comment on above: PATIENT WAS FASTINGP ERFORMED BY: ANGELI [facility] [id number] Mcghee Roadblin [place] [id number] Protein mass conc 7.5 g/dL Normal 6.0-8.5 Compreh ensive Internal Medicine Work Phone: Comment on above: PATIENT WAS FASTINGP ERFORMED BY: ANGELI [facility] [id number] [address] RoadDublin [place] [id number] Sodium molar conc 143 mmol/L Normal 134-144 Compreh ensive Internal Medicine Work Phone: Comment on above: PATIENT WAS FASTINGP ERFORMED BY: ANEGLI [facility] [id number] Mcghee RoadAtrium Health [facility] Centerin [place] [id number] Urea nitrogen mass conc 12 mg/dL Normal 8-27 C omprehensive Internal Medicine Work Phone: Comment on above: PATIENT WAS FASTINGP ERFORMED BY: ANGELI [facility] [id number] [address] RoadDublin [place] [id number] Urea nitrogen/Creatinine mass ratio 18 mg/mg Normal 11-26 [facility] Work Phone: Comment on above: PATIENT WAS FASTINGP ERFORMED BY: ANGELI [facility] [id number] [facility]in [place] [id number] TSH ([id number])Ordered By: Eb Arauz on 08-07-2013 Thyrotropin Qn 6.980 {uIU/mL} Abnormal 0.450-4.50 0 [facility] Work Phone: Comment on above: PATIENT WAS FASTINGP ERFORMED BY: ANGELI [facility] [id number] [address] RoadDublin [place] [id number] Urinalysis, Office ([id number])Or dered By: Federica Olivarez on 08-07-2013 Bilirubin Ql (U) Negative Normal Comprehe nsive Internal Medicine Work Phone: Bilirubin Ql (U) Negative Normal Comprehe nsive Internal Medicine Work Phone: Glucose Test strip (U) [Mass/Vol] Negative Normal [facility] Work Phone: Glucose Test strip mass conc (U) Negative Normal [facility] Work Phone: Hemoglobin Ql (U) Non Hemolyzed Trace Normal [facility] Work Phone: Hemoglobin Test strip Ql (U) Non Hemolyzed Trace Normal Comprehensiv e Internal Medicine Work Phone: Ketones Ql (U) Negative Normal Comprehens michael Internal Medicine Work Phone: Ketones Ql (U) Negative Normal Comprehens michael Internal Medicine Work Phone: Leukocyte esterase Test strip Ql (U) Negative Normal [facility] Work Phone: Leukocyte esterase Test strip Ql (U) Negative Normal [facility] Work Phone: Nitrite Ql (U) Negative Normal Comprehens michael Internal Medicine Work Phone: Nitrite Ql (U) Negative Normal Comprehens michael Internal Medicine Work Phone: Nitrite Test strip Ql (U) Negative Normal [facility] Work Phone: pH (U) 7.0 [pH] Normal [facility] Work Phone: pH Test strip (U) 7.0 [pH] Normal Compreh ensive Internal Medicine Work Phone: Protein Ql (U) Negative Normal Comprehens michael Internal Medicine Work Phone: Protein Ql (U) Negative Normal Comprehens michael Internal Medicine Work Phone: Protein Test strip Ql (U) Negative Normal [facility] Work Phone: Specific gravity Relative Density (U) 1.015 1 Normal Comprehensi ve Internal Medicine Work Phone: Urobilinogen mass/time (24H U) Normal Normal [facility] Work Phone: Vital Signs Date Time Vital Sign Value Performing Clinician Facility 05-31-2025 12:51-0400 Body temperature 98.3 [degF] Karen Lewisam TELEGRAPH AND TELETYPE OPERATOR-C Work Phone: [facility] 05-31-2025 12:51-0400 Diastolic blood pressure 61 mm[Hg] Karen Lewisam TELEGRAPH AND TELETYPE OPERATOR-C Work Phone: [facility] 05-31-2025 12:51-0400 Heart rate 85 /min Karen Lewisam TELEGRAPH AND TELETYPE OPERATOR-C Work Phone: [facility] 05-31-2025 12:51-0400 Respiratory rate 16 /min Karen Lewisam TELEGRAPH AND TELETYPE OPERATOR-C Work Phone: [facility] 05-31-2025 12:51-0400 SaO2% (BldA) [Mass fraction] 97 % Karen Alcazar TELEGRAPH AND TELETYPE OPERATOR-C Work Phone: [facility] 05-31-2025 12:51-0400 Systolic blood pressure 149 mm[Hg] Karen Lewisam TELEGRAPH AND TELETYPE OPERATOR-C Work Phone: [facility] 05-31-2025 10:10-0400 Body height 152.4 cm Karen Lewisam TELEGRAPH AND TELETYPE OPERATOR-C Work Phone: [facility] 05-31-2025 10:10-0400 Body mass index (BMI) [Ratio] 32.8 kg/m2 Karen Ottoniel TELEGRAPH AND TELETYPE OPERATOR-C Work Phone: [facility] 05-31-2025 10:10-0400 Body weight 76.3 kg Karen Lewisam TELEGRAPH AND TELETYPE OPERATOR-C Work Phone: [facility] 07-20-2023 11:08-0400 Body height 149.86 cm Flavia Coleman MA [facility]; [facility] Work Phone: 07-20-2023 11:08-0400 Body mass index (BMI) [Ratio] 31.81 kg/m2 Flavia Coleman MA [facility]; [facility] Work Phone: 07-20-2023 11:08-0400 Body surface area Derived from formula 1.67 m2 Flavia Coleman MA [facility]; [facility] Work Phone: 07-20-2023 11:08-0400 Body temperature 95.7 [degF] Flavia Coleman MA [facility]; [facility] Work Phone: 07-20-2023 11:08-0400 Body weight 71.44 kg Flavia Coleman MA [facility]; [facility] Work Phone: 07-20-2023 11:08-0400 Diastolic blood pressure 80 mm[Hg] Flavia Coleman MA [facility]; [facility] Work Phone: 07-20-2023 11:08-0400 Heart rate 78 /min Flavia Coleman MA [facility]; [facility] Work Phone: 07-20-2023 11:08-0400 SaO2% (BldA) [Mass fraction] 97 % Flavia Coleman MA [facility]; [facility] Work Phone: 07-20-2023 11:08-0400 Systolic blood pressure 118 mm[Hg] Flavia Coleman MA [facility]; [facility] Work Phone: 01-19-2023 09:49-0500 Body height 149.86 cm Latrice Levy LPN [facility]; [facility] Work Phone: 01-19-2023 09:49-0500 Body mass index (BMI) [Ratio] 32.11 kg/m2 Latrice Cam [facility]; [facility] Work Phone: 01-19-2023 09:49-0500 Body surface area Derived from formula 1.67 m2 Latrice Cam [facility]; [facility] Work Phone: 01-19-2023 09:49-0500 Body temperature 96.4 [degF] Latrice Levy LPN [facility]; [facility] Work Phone: 01-19-2023 09:49-0500 Body weight 72.12 kg Latrice Cam [facility]; [facility] Work Phone: 01-19-2023 09:49-0500 Diastolic blood pressure 80 mm[Hg] Latrice Slarb HAND STRIPER [facility]; [facility] Work Phone: 01-19-2023 09:49-0500 Heart rate 77 /min Latrice Slarb HAND STRIPER [facility]; [facility] Work Phone: 01-19-2023 09:49-0500 Respiratory rate 16 /min Latrice Slarb HAND STRIPER [facility]; [facility] Work Phone: 01-19-2023 09:49-0500 SaO2% (BldA) [Mass fraction] 96 % Latrice Slarb HAND STRIPER [facility]; [facility] Work Phone: 01-19-2023 09:49-0500 Systolic blood pressure 118 mm[Hg] Latrice Slarb HAND STRIPER [facility]; [facility] Work Phone: 09-22-2022 08:57-0400 Body height 149.86 cm Latrice Slarb HAND STRIPER [facility]; [facility] Work Phone: 09-22-2022 08:57-0400 Body mass index (BMI) [Ratio] 32.92 kg/m2 Latrice Slarb HAND STRIPER [facility]; [facility] Work Phone: 09-22-2022 08:57-0400 Body surface area Derived from formula 1.69 m2 Latrice Slarb HAND STRIPER [facility]; [facility] Work Phone: 09-22-2022 08:57-0400 Body temperature 96.4 [degF] Latrice Slarb HAND STRIPER [facility]; [facility] Work Phone: 09-22-2022 08:57-0400 Body weight 73.94 kg Latrice Slarb HAND STRIPER [facility]; [facility] Work Phone: 09-22-2022 08:57-0400 Diastolic blood pressure 78 mm[Hg] Latrice Slarb HAND STRIPER [facility]; [facility] Work Phone: 09-22-2022 08:57-0400 Heart rate 74 /min Latrice Slarb HAND STRIPER [facility]; [facility] Work Phone: 09-22-2022 08:57-0400 Respiratory rate 17 /min Latrice Levy LPN [facility]; [facility] Work Phone: 09-22-2022 08:57-0400 SaO2% (BldA) [Mass fraction] 97 % Latrice Levy HAND STRIPER [facility]; [facility] Work Phone: 09-22-2022 08:57-0400 Systolic blood pressure 126 mm[Hg] Latrice Levy HAND STRIPER [facility]; [facility] Work Phone: 08-12-2022 14:00-0400 Body height 149.86 cm Nellie Knox HAND STRIPER [facility]; [facility] Work Phone: Comment on above: virtual, none reported 08-12-2022 14:00-0400 Body mass index (BMI) [Ratio] 33.02 kg/m2 Nellie Knox [facility]; [facility] Work Phone: Comment on above: virtual, none reported 08-12-2022 14:00-0400 Body surface area Derived from formula 1.69 m2 Nellie Knox HAND STRIPER [facility]; [facility] Work Phone: Comment on above: virtual, none reported 08-12-2022 14:00-0400 Body weight 74.16 kg Nellie Knox HAND STRIPER [facility]; [facility] Work Phone: Comment on above: virtual, none reported 07-07-2022 10:48-0400 Body height 149.86 cm Karen Alcazar ASSET MANAGEMENT ANALYST Work Phone: [facility]; [facility] Work Phone: Comment on above: pt did not report 07-07-2022 10:48-0400 Body mass index (BMI) [Ratio] 33.02 kg/m2 Karen Alcazar ASSET MANAGEMENT ANALYST Work Phone: [facility]; [facility] Work Phone: Comment on above: pt did not report 07-07-2022 10:48-0400 Body surface area Derived from formula 1.69 m2 Karen Alcazar ASSET MANAGEMENT ANALYST Work Phone: [facility]; [facility] Work Phone: Comment on above: pt did not report 07-07-2022 10:48-0400 Body temperature 97.8 [degF] Karen Alcazar ASSET MANAGEMENT ANALYST Work Phone: [facility]; [facility] Work Phone: Comment on above: pt did not report 07-07-2022 10:48-0400 Body weight 74.16 kg Karen Alcazar ASSET MANAGEMENT ANALYST Work Phone: [facility]; [facility] Work Phone: Comment on above: pt did not report 05-26-2022 14:37-0400 Body height 149.86 cm Ruth Anguiano MA [facility]; [facility] Work Phone: 05-26-2022 14:37-0400 Body mass index (BMI) [Ratio] 33.02 kg/m2 Ruth Anguiano MA [facility]; [facility] Work Phone: 05-26-2022 14:37-0400 Body surface area Derived from formula 1.69 m2 Ruth Anguiano MA [facility]; [facility] Work Phone: 05-26-2022 14:37-0400 Body temperature 97.1 [degF] Ruth Anguiano MA [facility]; [facility] Work Phone: Comment on above: Method: Infrared 05-26-2022 14:37-0400 Body weight 74.16 kg Ruth Anguiano MA [facility]; [facility] Work Phone: 05-26-2022 14:37-0400 Diastolic blood pressure 76 mm[Hg] Ruth Anguiano MA [facility]; [facility] Work Phone: Comment on above: Patient Position: Sitting; Cuff Location : Left Arm; Cuff Size: Standard 05-26-2022 14:37-0400 Heart rate 105 /min Ruth Anguiano MA [facility]; [facility] Work Phone: Comment on above: Pattern: Regular 05-26-2022 14:37-0400 Respiratory rate 16 /min Ruth Anguiano MA [facility]; [facility] Work Phone: Comment on above: Pattern: Unlabored 05-26-2022 14:37-0400 SaO2% (BldA) [Mass fraction] 96 % Ruth Anguiano MA [facility]; [facility] Work Phone: Comment on above: Room air 05-26-2022 14:37-0400 Systolic blood pressure 121 mm[Hg] Ruth Anguiano MA [facility]; [facility] Work Phone: Comment on above: Patient Position: Sitting; Cuff Location : Left Arm; Cuff Size: Standard 02-27-2022 13:31-0400 Body height 149.86 cm Federica Olivarez [facility]; [facility] Work Phone: 02-27-2022 13:31-0400 Body mass index (BMI) [Ratio] 33.63 kg/m2 Federica Olivarez [facility]; [facility] Work Phone: 02-27-2022 13:31-0400 Body surface area Derived from formula 1.71 m2 Federica Olivarez [facility]; [facility] Work Phone: 02-27-2022 13:31-0400 Body temperature 97 [degF] Federica Olivarez [facility]; [facility] Work Phone: Comment on above: Method: Thermal Scan 02-27-2022 13:31-0400 Body weight 75.52 kg Federica Olivarez [facility]; [facility] Work Phone: 02-27-2022 13:31-0400 Diastolic blood pressure 78 mm[Hg] Federica Olivarez [facility]; [facility] Work Phone: Comment on above: Patient Position: Sitting; Cuff Location : Left Arm; Cuff Size: Standard 02-27-2022 13:31-0400 Heart rate 77 /min Federica Olivarez [facility]; [facility] Work Phone: Comment on above: Pattern: Regular 02-27-2022 13:31-0400 Respiratory rate 16 /min Federica Olivarez [facility]; [facility] Work Phone: Comment on above: Pattern: Unlabored 02-27-2022 13:31-0400 SaO2% (BldA) [Mass fraction] 97 % Federica Olivarez [facility]; [facility] Work Phone: Comment on above: Room air 02-27-2022 13:31-0400 Systolic blood pressure 116 mm[Hg] Federica Olivarez [facility]; [facility] Work Phone: Comment on above: Patient Position: Sitting; Cuff Location : Left Arm; Cuff Size: Standard 11-18-2021 09:32-0500 Body height 149.86 cm Latrice Slaroya [place]; [facility] Work Phone: 11-18-2021 09:32-0500 Body mass index (BMI) [Ratio] 33.12 kg/m2 Latrice Cam [facility]; [facility] Work Phone: 11-18-2021 09:32-0500 Body surface area Derived from formula 1.69 m2 Latrice Cam [place]; [facility] Work Phone: 11-18-2021 09:32-0500 Body temperature 97.1 [degF] Latrice Cam [facility]; [facility] Work Phone: 11-18-2021 09:32-0500 Body weight 74.39 kg Latrice Cam [facility]; [facility] Work Phone: 11-18-2021 09:32-0500 Diastolic blood pressure 78 mm[Hg] Latrice Slarb HAND STRIPER [facility]; [facility] Work Phone: Comment on above: Patient Position: Sitting; Cuff Location : Left Arm; Cuff Size: Standard 11-18-2021 09:32-0500 Heart rate 87 /min Latrice Levy SLOANE [facility]; [facility] Work Phone: Comment on above: Pattern: Regular 11-18-2021 09:32-0500 Respiratory rate 17 /min Latrice Levy [place] [facility]; [facility] Work Phone: Comment on above: Pattern: Unlabored 11-18-2021 09:32-0500 SaO2% (BldA) [Mass fraction] 97 % Latrice Levy [place] [facility]; [facility] Work Phone: Comment on above: Room air 11-18-2021 09:32-0500 Systolic blood pressure 128 mm[Hg] Latrice Levy [place] [facility]; [facility] Work Phone: Comment on above: Patient Position: Sitting; Cuff Location : Left Arm; Cuff Size: Standard 08-13-2021 14:53-0400 Body height 149.86 cm Ruth Anguiano MA [facility]; [facility] Work Phone: 08-13-2021 14:53-0400 Body mass index (BMI) [Ratio] 33.73 kg/m2 Ruth Anguiano MA [facility]; [facility] Work Phone: 08-13-2021 14:53-0400 Body surface area Derived from formula 1.71 m2 Ruth Anguiano MA [facility]; [facility] Work Phone: 08-13-2021 14:53-0400 Body temperature 96.9 [degF] Ruth Anguiano MA [facility]; [facility] Work Phone: 08-13-2021 14:53-0400 Body weight 75.75 kg Ruth Anguiano MA [facility]; [facility] Work Phone: 08-13-2021 14:53-0400 Diastolic blood pressure 75 mm[Hg] Ruth Anguiano MA [facility]; [facility] Work Phone: Comment on above: Patient Position: Sitting; Cuff Location : Left Arm; Cuff Size: Standard 08-13-2021 14:53-0400 Heart rate 82 /min Ruth Anguiano MA [facility]; [facility] Work Phone: Comment on above: Pattern: Regular 08-13-2021 14:53-0400 SaO2% (BldA) [Mass fraction] 96 % Ruth Anguiano MA [facility]; [facility] Work Phone: Comment on above: Room air 08-13-2021 14:53-0400 Systolic blood pressure 129 mm[Hg] Ruth Anguiano MA [facility]; [facility] Work Phone: Comment on above: Patient Position: Sitting; Cuff Location : Left Arm; Cuff Size: Standard 03-19-2021 08:20-0400 Body height 149.86 cm Haseeb Brizuela LPN [facility]; [facility] Work Phone: 03-19-2021 08:20-0400 Body mass index (BMI) [Ratio] 34.34 kg/m2 Haseeb Brizuela LPN [facility]; [facility] Work Phone: 03-19-2021 08:20-0400 Body surface area Derived from formula 1.72 m2 Haseeb Brizuela LPN [facility]; [facility] Work Phone: 03-19-2021 08:20-0400 Body temperature 97.9 [degF] Haseeb Brizuela LPN [facility]; [facility] Work Phone: Comment on above: Method: Infrared 03-19-2021 08:20-0400 Body weight 77.11 kg Haseeb Brizuela LPN [facility]; [facility] Work Phone: 03-19-2021 08:20-0400 Diastolic blood pressure 72 mm[Hg] Haseeb Brizuela LPN [facility]; [facility] Work Phone: Comment on above: Patient Position: Sitting; Cuff Location : Left Arm; Cuff Size: Standard 03-19-2021 08:20-0400 Heart rate 80 /min Haseeb Brizuela LPN [facility]; [facility] Work Phone: Comment on above: Pattern: Regular 03-19-2021 08:20-0400 Respiratory rate 16 /min Haseeb Brizuela LPN [facility]; [facility] Work Phone: Comment on above: Pattern: Unlabored 03-19-2021 08:20-0400 SaO2% (BldA) [Mass fraction] 96 % Haseeb Brizuela LPN [facility]; [facility] Work Phone: Comment on above: Room air 03-19-2021 08:20-0400 Systolic blood pressure 130 mm[Hg] Haseeb Brizuela LPN [facility]; [facility] Work Phone: Comment on above: Patient Position: Sitting; Cuff Location : Left Arm; Cuff Size: Standard 02-24-2021 10:54-0400 BMI (Body Mass Index) 34.34 kg/m2 Federica Hallvimalbrenda [facility]; [facility] Work Phone: 02-24-2021 10:54-0400 Body Temperature 96.4 [degF] Federica Hallvimalbrenda [facility]; [facility] Work Phone: Comment on above: Method: Thermal Scan 02-24-2021 10:54-0400 Body weight 77.11 kg Federica Olivarez [facility]; [facility] Work Phone: 02-24-2021 10:54-0400 BP Diastolic 70 mm[Hg] Federica Olivarez [facility]; [facility] Work Phone: Comment on above: Patient Position: Sitting; Cuff Location : Left Arm; Cuff Size: Standard 02-24-2021 10:54-0400 BP Systolic 132 mm[Hg] Federica Olivarez [facility]; [facility] Work Phone: Comment on above: Patient Position: Sitting; Cuff Location : Left Arm; Cuff Size: Standard 02-24-2021 10:54-0400 BSA (Body Surface Area) 1.72 m2 Federica Olivarez [facility]; [facility] Work Phone: 02-24-2021 10:54-0400 Height 149.86 cm Federica Olivarez [facility]; [facility] Work Phone: 02-24-2021 10:54-0400 Pulse (Heart Rate) 78 /min Federica Olivarez [facility] Medicine; [facility] Work Phone: Comment on above: Pattern: Regular 02-24-2021 10:54-0400 Pulse Oximetry 98 % Marcia Walker [facility] Internal Medicine; [facility] Work Phone: Comment on above: Room air 02-24-2021 10:54-0400 Respiratory Rate 16 /min Federica Hallvimalbrenda [facility] Internal Medicine; [facility] Work Phone: Comment on above: Pattern: Unlabored 02-24-2021 10:54-0400 SaO2% (BldA) [Mass fraction] 98 % Federica Hallvimalbrenda [facility] Medicine; [facility] Work Phone: Comment on above: Room air 06-10-2020 07:57-0400 BMI (Body Mass Index) 34.34 kg/m2 Haseeb Brizuela LPN [facility] Internal Medicine Work Phone: 06-10-2020 07:57-0400 Body Temperature 97.1 [degF] Haseeb Brizuela LPN [facility] Internal Medicine Work Phone: Comment on above: Method: Infrared 06-10-2020 07:57-0400 Body weight 77.11 kg Haseeb Brizuela LPN [facility] Internal Medicine Work Phone: 06-10-2020 07:57-0400 BP Diastolic 76 mm[Hg] Haseeb Brizuela LPN [facility] Internal Medicine Work Phone: Comment on above: Patient Position: Sitting; Cuff Location : Left Arm; Cuff Size: Standard 06-10-2020 07:57-0400 BP Systolic 120 mm[Hg] Haseeb Brizuela LPN [facility] Internal Medicine Work Phone: Comment on above: Patient Position: Sitting; Cuff Location : Left Arm; Cuff Size: Standard 06-10-2020 07:57-0400 BSA (Body Surface Area) 1.72 m2 Haseeb Brizuela LPN [facility] Internal Medicine Work Phone: 06-10-2020 07:57-0400 Height 149.86 cm Haseeb Brizuela LPN [facility] Internal Medicine Work Phone: 06-10-2020 07:57-0400 Pulse (Heart Rate) 74 /min Haseeb Brizuela LPN [facility] Internal Medicine Work Phone: Comment on above: Pattern: Regular 06-10-2020 07:57-0400 Pulse Oximetry 95 % Marcia Aaron [facility] Internal Medicine Work Phone: Comment on above: Room air 06-10-2020 07:57-0400 Respiratory Rate 16 /min Haseeb Brizuela LPN [facility] Internal Medicine Work Phone: Comment on above: Pattern: Unlabored 06-10-2020 07:57-0400 SaO2% (BldA) [Mass fraction] 95 % Haseeb Brizuela LPN [facility] Internal Medicine Work Phone: Comment on above: Room air 02-23-2020 06:45-0400 BMI (Body Mass Index) 34.84 kg/m2 Haseeb Brizuela LPN [facility]pre[facility] Internal Medicine Work Phone: 02-23-2020 06:45-0400 Body weight 78.25 kg Haseeb Brizuela LPN [facility] Internal Medicine Work Phone: 02-23-2020 06:45-0400 BSA (Body Surface Area) 1.73 m2 Haseeb Brizuela LPN [facility] Internal Medicine Work Phone: 02-23-2020 06:45-0400 Height 149.86 cm Haseeb Brizuela LPN [facility] Internal Medicine Work Phone: 02-21-2020 12:14-0400 BMI (Body Mass Index) 34.84 kg/m2 Marcia Walker [employer]GEMENT [employer] Work Phone: [facility] Work Phone: Comment on above: will report temp when [facility] calls 02-21-2020 12:14-0400 Body Temperature 98 [degF] Marcia Walker ASSET MANAGEMENT ANALYST Work Phone: [facility] Work Phone: Comment on above: will report temp when [facility] calls 02-21-2020 12:14-0400 Body weight 78.25 kg Marcia Walker ASSET MANAGEMENT ANALYST Work Phone: [facility] Work Phone: Comment on above: will report temp when [facility] calls 02-21-2020 12:14-0400 BP Diastolic 61 mm[Hg] Marcia Meiera ASSET MANAGEMENT ANALYST Work Phone: [facility] Work Phone: Comment on above: Patient Position: Supine; Cuff Location: Right Arm; Cuff Size: Standard will report temp whe n [facility] calls 02-21-2020 12:14-0400 BP Systolic 124 mm[Hg] Marcia Meiera ASSET MANAGEMENT ANALYST Work Phone: [facility] Work Phone: Comment on above: Patient Position: Supine; Cuff Location: Right Arm; Cuff Size: Standard will report temp whe n [facility] calls 02-21-2020 12:14-0400 BSA (Body Surface Area) 1.73 m2 Marcia Meiera ASSET MANAGEMENT ANALYST Work Phone: [facility] Work Phone: Comment on above: will report temp when [facility] calls 02-21-2020 12:14-0400 Height 149.86 cm Marcia Meiera ASSET MANAGEMENT ANALYST Work Phone: [facility] Work Phone: Comment on above: will report temp when [facility] calls 02-21-2020 12:14-0400 Pulse (Heart Rate) 75 /min Marcia Meiera ASSET MANAGEMENT ANALYST Work Phone: [facility] Work Phone: Comment on above: Pattern: Regular will report temp whe n [facility] calls 02-16-2020 07:40-0400 BMI (Body Mass Index) 34.84 kg/m2 Haseeb Brizuela LPN [facility] Internal Medicine Work Phone: 02-16-2020 07:40-0400 Body weight 78.25 kg Haseeb Brizuela LPN [facility] Work Phone: 02-16-2020 07:40-0400 BSA (Body Surface Area) 1.73 m2 Haseeb Brizuela LPN [facility] Work Phone: 02-16-2020 07:40-0400 Height 149.86 cm Haseeb Brizuela LPN [facility] Work Phone: 12-14-2019 14:05-0500 BMI (Body Mass Index) 34.84 kg/m2 Veronique Childers RN [facility] Work Phone: 12-14-2019 14:05-0500 Body Temperature 97.6 [degF] Veronique Childers RN [facility] Work Phone: Comment on above: Method: Temporal 12-14-2019 14:05-0500 Body weight 78.25 kg Veronique Childers RN [facility] Work Phone: 12-14-2019 14:05-0500 BP Diastolic 78 mm[Hg] Veronique Childers RN [facility] Work Phone: Comment on above: Patient Position: Sitting; Cuff Location : Left Arm; Cuff Size: Large 12-14-2019 14:05-0500 BP Systolic 120 mm[Hg] Veronique Childers RN [facility] Work Phone: Comment on above: Patient Position: Sitting; Cuff Location : Left Arm; Cuff Size: Large 12-14-2019 14:05-0500 BSA (Body Surface Area) 1.73 m2 Veronique Childers RN [facility] Work Phone: 12-14-2019 14:05-0500 Height 149.86 cm Veronique Childers RN [facility] Work Phone: 12-14-2019 14:05-0500 Pulse (Heart Rate) 84 /min Veronique Childers RN [facility] Work Phone: Comment on above: Pattern: Regular 12-14-2019 14:05-0500 Pulse Oximetry 97 % Marcia Walker [facility] Work Phone: Comment on above: Room air 12-14-2019 14:05-0500 Respiratory Rate 18 /min Veronique Childers RN [facility] Work Phone: Comment on above: Pattern: Unlabored 12-14-2019 14:05-0500 SaO2% (BldA) [Mass fraction] 97 % Veronique Childers RN [facility] Work Phone: Comment on above: Room air 11-06-2019 09:46-0500 BMI (Body Mass Index) 34.84 kg/m2 Nellie Knox LPN Compre[facility] ns[facility] Internal Medicine Work Phone: 11-06-2019 09:46-0500 Body Temperature 97.1 [degF] Nellie Knox LPN [facility] Internal Medicine Work Phone: Comment on above: Method: Temporal 11-06-2019 09:46-0500 Body weight 78.25 kg Nellie Knox LPN [facility] Internal Medicine Work Phone: 11-06-2019 09:46-0500 BP Diastolic 78 mm[Hg] Nellie Knox LPN [facility] Internal Medicine Work Phone: Comment on above: Patient Position: Sitting; Cuff Location : Left Arm; Cuff Size: Standard 11-06-2019 09:46-0500 BP Systolic 120 mm[Hg] Nellie Knox LPN [facility] Internal Medicine Work Phone: Comment on above: Patient Position: Sitting; Cuff Location : Left Arm; Cuff Size: Standard 11-06-2019 09:46-0500 BSA (Body Surface Area) 1.73 m2 Nellie Knox LPN [facility] Work Phone: 11-06-2019 09:46-0500 Height 149.86 cm Nellie Knox LPN [facility] Internal Medicine Work Phone: 11-06-2019 09:46-0500 Pulse (Heart Rate) 88 /min Nellie Knox LPN Compre[facility] Internal Medicine Work Phone: Comment on above: Pattern: Regular 11-06-2019 09:46-0500 Pulse Oximetry 93 % Marcia Walker [facility] Internal Medicine Work Phone: Comment on above: Room air 11-06-2019 09:46-0500 Respiratory Rate 16 /min Nellie Knox LPN [facility] Internal Medicine Work Phone: Comment on above: Pattern: Unlabored 11-06-2019 09:46-0500 SaO2% (BldA) [Mass fraction] 93 % Nellie Knox LPN [facility] Internal Medicine Work Phone: Comment on above: Room air 11-06-2019 08:21-0500 BMI (Body Mass Index) 33.94 kg/m2 Haseeb Brizuela SLOANE [facility] Internal Medicine Work Phone: 11-06-2019 08:21-0500 Body weight 76.22 kg Haseeb Brizuela S[facility]ANE [facility] Work Phone: 11-06-2019 08:21-0500 BSA (Body Surface Area) 1.71 m2 Haseeb Brizuela SLOANE [facility] Internal Medicine Work Phone: 11-06-2019 08:21-0500 Height 149.86 cm Haseeb Gelacio ANTON [facility] Work Phone: 08-28-2019 15:07-0400 BMI (Body Mass Index) 33.94 kg/m2 Haseeb Brizuela S[facility] Internal Medicine Work Phone: 08-28-2019 15:07-0400 Body Temperature 97.9 [degF] Haseeb Brizuela SLOANE [facility] Internal Medicine Work Phone: Comment on above: Method: Temporal 08-28-2019 15:07-0400 Body weight 76.22 kg Haseeb Brizuela S[facility]ANE [facility] Work Phone: 08-28-2019 15:07-0400 BP Diastolic 78 mm[Hg] Haseeb Gelacio ANTON [facility] Internal Medicine Work Phone: Comment on above: Patient Position: Sitting; Cuff Location : Left Arm; Cuff Size: Standard 08-28-2019 15:07-0400 BP Systolic 140 mm[Hg] Haseeb Brizuela SLOANE [facility] Internal Medicine Work Phone: Comment on above: Patient Position: Sitting; Cuff Location : Left Arm; Cuff Size: Standard 08-28-2019 15:07-0400 BSA (Body Surface Area) 1.71 m2 Haseeb Brizuela SLOANE [facility] Internal Medicine Work Phone: 08-28-2019 15:07-0400 Height 149.86 cm Haseeb Gelacio ANTON [facility] Internal Medicine Work Phone: 08-28-2019 15:07-0400 Pulse (Heart Rate) 100 /min Haseeb Brizuela SLOANE Comprehens[facility] e Internal Medicine Work Phone: Comment on above: Pattern: Regular 08-28-2019 15:07-0400 Pulse Oximetry 96 % Marcia Walker [facility] Internal Medicine Work Phone: Comment on above: Room air 08-28-2019 15:07-0400 Respiratory Rate 16 /min Haseeb Brizuela LPN [facility] Internal Medicine Work Phone: Comment on above: Pattern: Unlabored 08-28-2019 15:07-0400 SaO2% (BldA) [Mass fraction] 96 % Haseeb Brizuela LPN [facility] Internal Medicine Work Phone: Comment on above: Room air 04-03-2019 10:51-0400 BMI (Body Mass Index) 35.35 kg/m2 Haseeb Brizuela LPN [facility]pre[facility] Internal Medicine Work Phone: 04-03-2019 10:51-0400 Body Temperature 98 [degF] Haseeb Brizuela LPN [facility] Internal Medicine Work Phone: Comment on above: Method: Temporal 04-03-2019 10:51-0400 Body weight 79.38 kg Haseeb Brizuela LPN [facility] Internal Medicine Work Phone: 04-03-2019 10:51-0400 BP Diastolic 68 mm[Hg] Haseeb Brizuela LPN [facility] Internal Medicine Work Phone: Comment on above: Patient Position: Sitting; Cuff Location : Left Arm; Cuff Size: Standard 04-03-2019 10:51-0400 BP Systolic 118 mm[Hg] Haseeb Brizuela LPN [facility] Internal Medicine Work Phone: Comment on above: Patient Position: Sitting; Cuff Location : Left Arm; Cuff Size: Standard 04-03-2019 10:51-0400 BSA (Body Surface Area) 1.74 m2 Haseeb Brizuela LPN [facility] Internal Medicine Work Phone: 04-03-2019 10:51-0400 Height 149.86 cm Haseeb Brizuela LPN [facility] Internal Medicine Work Phone: 04-03-2019 10:51-0400 Pulse (Heart Rate) 110 /min Haseeb Brizuela LPN Comprehens[facility] e Internal Medicine Work Phone: Comment on above: Pattern: Regular 04-03-2019 10:51-0400 Pulse Oximetry 98 % Marcia Dominiquemeryltarsha [facility] Internal Medicine Work Phone: Comment on above: Room air 04-03-2019 10:51-0400 Respiratory Rate 17 /min Haseeb Brizuela LPN [facility] Work Phone: Comment on above: Pattern: Unlabored 04-03-2019 10:51-0400 SaO2% (BldA) [Mass fraction] 98 % Haseeb Brizuela LPN [facility] Work Phone: Comment on above: Room air 03-13-2019 08:08-0400 BMI (Body Mass Index) 35.24 kg/m2 Marcia Walker [facility] Internal Medicine Work Phone: 03-13-2019 08:08-0400 BMI (Body Mass Index) 35.35 kg/m2 Haseeb Brizuela LPN Compre[facility] Internal Medicine Work Phone: 03-13-2019 08:08-0400 Body Temperature 97 [degF] Haseeb Brizuela LPN [facility] Internal Medicine Work Phone: Comment on above: Method: Temporal 03-13-2019 08:08-0400 Body weight 79.38 kg Haseeb Brizuela LPN [facility] Work Phone: 03-13-2019 08:08-0400 BP Diastolic 78 mm[Hg] Haseeb Brizuela LPN [facility] Internal Medicine Work Phone: Comment on above: Patient Position: Sitting; Cuff Location : Left Arm; Cuff Size: Standard 03-13-2019 08:08-0400 BP Systolic 144 mm[Hg] Haseeb Brizuela LPN [facility] Internal Medicine Work Phone: Comment on above: Patient Position: Sitting; Cuff Location : Left Arm; Cuff Size: Standard 03-13-2019 08:08-0400 BSA (Body Surface Area) 1.74 m2 Haseeb Brizuela LPN [facility] Internal Medicine Work Phone: 03-13-2019 08:08-0400 Height 149.86 cm Haseeb Brizuela LPN [facility] Internal Medicine Work Phone: 03-13-2019 08:08-0400 Pulse (Heart Rate) 88 /min Haseeb Brizuela LPN Comprehens[facility] e Internal Medicine Work Phone: Comment on above: Pattern: Regular 03-13-2019 08:08-0400 Pulse Oximetry 95 % Marcia Walker [facility] Internal Medicine Work Phone: Comment on above: Room air 03-13-2019 08:08-0400 Respiratory Rate 18 /min Haseeb Brizuela LPN [facility] Internal Medicine Work Phone: Comment on above: Pattern: Unlabored 03-13-2019 08:08-0400 SaO2% (BldA) [Mass fraction] 95 % Haseeb Brizuela LPN [facility] Internal Medicine Work Phone: Comment on above: Room air 03-13-2019 08:08-0400 Weight 79.15 kg Marcia Walker [facility] Internal Medicine Work Phone: 03-13-2019 08:08-0400 Weight 79.38 kg Marcia Walker [facility] Medicine Work Phone: 01-19-2019 10:30-0500 BMI (Body Mass Index) 35.24 kg/m2 [facility] Work Phone: 01-19-2019 10:30-0500 Body Temperature 97.2 [degF] [facility]ica [facility] Work Phone: Comment on above: Method: Temporal 01-19-2019 10:30-0500 Body weight 79.15 kg Federica Olivarez [facility] Internal Medicine Work Phone: 01-19-2019 10:30-0500 BP Diastolic 78 mm[Hg] [facility] Work Phone: Comment on above: Patient Position: Sitting; Cuff Location : Left Arm; Cuff Size: Standard 01-19-2019 10:30-0500 BP Systolic 130 mm[Hg] [facility] Internal [facility] Work Phone: Comment on above: Patient Position: Sitting; Cuff Location : Left Arm; Cuff Size: Standard 01-19-2019 10:30-0500 BSA (Body Surface Area) 1.74 m2 [facility] Internal [facility] Work Phone: 01-19-2019 10:30-0500 Height 149.86 cm [facility] Internal Medicine Work Phone: 01-19-2019 10:30-0500 Pulse (Heart Rate) 75 /min Federica Olivarez [facility] Internal Medicine Work Phone: Comment on above: Pattern: Regular 01-19-2019 10:30-0500 Pulse Oximetry 97 % Marcia Walker [facility] Internal Medicine Work Phone: Comment on above: Room air 01-19-2019 10:30-0500 Respiratory Rate 16 /min Federica Olivarez [facility] Internal Medicine Work Phone: Comment on above: Pattern: Unlabored 01-19-2019 10:30-0500 SaO2% (BldA) [Mass fraction] 97 % Federica Olivarez [facility] Internal Medicine Work Phone: Comment on above: Room air 01-19-2019 10:30-0500 Weight 79.15 kg Marcia Walker [facility] Internal Medicine Work Phone: 10-05-2018 10:09-0500 BMI (Body Mass Index) 35.85 kg/m2 Myra Fowler [facility] Internal Medicine Work Phone: 10-05-2018 10:09-0500 Body Temperature 97.6 [degF] Myra Fowler [facility] Internal Medicine Work Phone: Comment on above: Method: Temporal 10-05-2018 10:09-0500 Body weight 80.51 kg Myra Fowler [facility] Internal Medicine Work Phone: 10-05-2018 10:09-0500 BP Diastolic 70 mm[Hg] [facility] Work [facility]: Comment on above: Patient Position: Sitting; Cuff Location : Left Arm; Cuff Size: Standard 10-05-2018 10:09-0500 BP Systolic 118 mm[Hg] Myra Fowler [facility] Internal Medicine Work Phone: Comment on above: Patient Position: Sitting; Cuff Location : Left Arm; Cuff Size: Standard 10-05-2018 10:09-0500 BSA (Body Surface Area) 1.75 m2 Myra Fowler [facility] Internal Medicine Work Phone: 10-05-2018 10:09-0500 Height 149.86 cm Myra Fowler [facility] Internal Medicine Work Phone: 10-05-2018 10:09-0500 Pulse (Heart Rate) 84 /min Myra Fowler [facility] Internal Medicine Work Phone: Comment on above: Pattern: Regular 10-05-2018 10:09-0500 Pulse Oximetry 96 % Marcia Walker [facility] Internal Medicine Work Phone: Comment on above: Room air 10-05-2018 10:09-0500 Respiratory Rate 16 /min Myra Fowler [facility] Internal Medicine Work Phone: Comment on above: Pattern: Unlabored 10-05-2018 10:09-0500 SaO2% (BldA) [Mass fraction] 96 % Myra Fowler [facility] Internal Medicine Work Phone: Comment on above: Room air 10-05-2018 10:09-0500 Weight 80.51 kg Marcia Walker [facility] Internal Medicine Work Phone: 09-16-2018 10:33-0400 BMI (Body Mass Index) 35.75 kg/m2 Myra Fowler [facility] Internal Medicine Work Phone: 09-16-2018 10:33-0400 Body weight 80.29 kg Myra Fowler [facility] Internal Medicine Work Phone: 09-16-2018 10:33-0400 BSA (Body Surface Area) 1.75 m2 Myra Fowler [facility] Internal Medicine Work Phone: 09-16-2018 10:33-0400 Height 149.86 cm Myra Fowler [facility] Internal Medicine Work Phone: 09-16-2018 10:33-0400 Weight 80.29 kg Marcia Walker [facility] Internal Medicine Work Phone: 06-27-2018 09:57-0400 BMI (Body Mass Index) 35.75 kg/m2 [facility] Work Phone: 06-27-2018 09:57-0400 Body weight 80.29 kg Heidy Camacho RN [facility] Work Phone: 06-27-2018 09:57-0400 BP Diastolic 68 mm[Hg] Heidy Camacho RN [facility] Work Phone: Comment on above: Patient Position: Sitting; Cuff Location : Left Arm; Cuff Size: Standard 06-27-2018 09:57-0400 BP Systolic 122 mm[Hg] Heidy Camacho RN [facility] Work Phone: Comment on above: Patient Position: Sitting; Cuff Location : Left Arm; Cuff Size: Standard 06-27-2018 09:57-0400 BSA (Body Surface Area) 1.75 m2 Heidy Camacho RN [facility] Work Phone: 06-27-2018 09:57-0400 Height 149.86 cm Heidy Camacho RN [facility] Work Phone: 06-27-2018 09:57-0400 Pulse (Heart Rate) 16 /min Heidy Camacho RN [facility] Work Phone: Comment on above: Pattern: Regular 06-27-2018 09:57-0400 Respiratory Rate 16 /min Heidy Camacho RN [facility] Work Phone: Comment on above: Pattern: Unlabored 06-27-2018 09:57-0400 Weight 80.29 kg Marcia Walker [facility] Work Phone: 06-14-2018 08:29-0400 BMI (Body Mass Index) 35.77 kg/m2 Haseeb Brizuela LPN [facility] Internal Medicine Work Phone: 06-14-2018 08:29-0400 Body Temperature 97.8 [degF] Haseeb Brizuela LPN [facility] Work Phone: 06-14-2018 08:29-0400 Body weight 80.34 kg Haseeb Brizuela LPN [facility] Work Phone: 06-14-2018 08:29-0400 BP Diastolic 82 mm[Hg] Haseeb Brizuela LPN [facility] Work Phone: Comment on above: Patient Position: Sitting; Cuff Location : Left Arm; Cuff Size: Standard 06-14-2018 08:29-0400 BP Systolic 132 mm[Hg] Haseeb Brizuela LPN [facility] Internal Medicine Work Phone: Comment on above: Patient Position: Sitting; Cuff Location : Left Arm; Cuff Size: Standard 06-14-2018 08:29-0400 BSA (Body Surface Area) 1.75 m2 Haseeb Brizuela LPN [facility] Internal Medicine Work Phone: 06-14-2018 08:29-0400 Height 149.86 cm Haseeb Brizuela LPN [facility] Internal Medicine Work Phone: 06-14-2018 08:29-0400 Pulse (Heart Rate) 88 /min Haseeb Brizuela LPN [facility] Internal Medicine Work Phone: Comment on above: Pattern: Regular 06-14-2018 08:29-0400 Pulse Oximetry 95 % [facility] Work Phone: Comment on above: Room air 06-14-2018 08:29-0400 Respiratory Rate 16 /min Haseeb Brizuela LPN [facility] Internal Medicine Work Phone: Comment on above: Pattern: Unlabored 06-14-2018 08:29-0400 SaO2% (BldA) [Mass fraction] 95 % Haseeb Brizuela [facility] Internal Medicine Work Phone: Comment on above: Room air 06-14-2018 08:29-0400 Weight 80.34 kg Marcia Walker [facility] Internal Medicine Work Phone: 03-15-2018 10:58-0400 BMI (Body Mass Index) 35.95 kg/m2 Heidy Camacho RN Comprehens [facility] Internal Medicine Work Phone: 03-15-2018 10:58-0400 Body Temperature 98.2 [degF] Heidy Camacho RN [facility] Work Phone: Comment on above: Method: Temporal 03-15-2018 10:58-0400 Body weight 80.74 kg Heidy Camacho RN [facility] Work Phone: 03-15-2018 10:58-0400 BP Diastolic 78 mm[Hg] Heidy Camacho RN [facility] Work Phone: Comment on above: Patient Position: Sitting; Cuff Location : Left Arm; Cuff Size: Standard 03-15-2018 10:58-0400 BP Systolic 124 mm[Hg] Heidy Camacho RN [facility] Internal Medicine Work Phone: Comment on above: Patient Position: Sitting; Cuff Location : Left Arm; Cuff Size: Standard 03-15-2018 10:58-0400 BSA (Body Surface Area) 1.76 m2 Heidy Camacho RN [facility] Work Phone: 03-15-2018 10:58-0400 Height 149.86 cm Heidy Camacho RN [facility] Work Phone: 03-15-2018 10:58-0400 Pulse (Heart Rate) 65 /min Heidy Camacho RN [facility] Internal Medicine Work Phone: Comment on above: Pattern: Regular 03-15-2018 10:58-0400 Pulse Oximetry 95 % Marcia Meiertarsha [facility] Internal Medicine Work Phone: Comment on above: Room air 03-15-2018 10:58-0400 Respiratory Rate 16 /min Heidy Camacho RN [facility] Work Phone: Comment on above: Pattern: Unlabored 03-15-2018 10:58-0400 SaO2% (BldA) [Mass fraction] 95 % Heidy Camacho RN [facility] Work Phone: Comment on above: Room air 03-15-2018 10:58-0400 Weight 80.74 kg Marcia Walker [facility] Internal Medicine Work Phone: 12-06-2017 11:12-0500 BMI (Body Mass Index) 35.75 kg/m2 Latrice Eleanorrb HAND STRIPER [facility] Internal Medicine Work Phone: 12-06-2017 11:12-0500 Body Temperature 97.7 [degF] Latrice Levy LPN [facility] Internal Medicine Work Phone: 12-06-2017 11:12-0500 Body weight 80.29 kg Latrice Levy LPN [facility] Internal Medicine Work Phone: 12-06-2017 11:12-0500 BP Diastolic 80 mm[Hg] Latrice Eleanorrb SLOANE [facility] Internal Medicine Work Phone: Comment on above: Patient Position: Sitting; Cuff Location : Left Arm; Cuff Size: Standard 12-06-2017 11:12-0500 BP Systolic 122 mm[Hg] Latrice Levy LPN [facility] Work Phone: Comment on above: Patient Position: Sitting; Cuff Location : Left Arm; Cuff Size: Standard 12-06-2017 11:12-0500 BSA (Body Surface Area) 1.75 m2 Latrice Levy LPN [facility] Work Phone: 12-06-2017 11:12-0500 Height 149.86 cm Latrice Levy LPN [facility] Work Phone: 12-06-2017 11:12-0500 Pulse (Heart Rate) 82 /min Latrice Levy LPN [facility] Internal Medicine Work Phone: Comment on above: Pattern: Regular 12-06-2017 11:12-0500 Pulse Oximetry 97 % Marcia Walker [facility] Work Phone: Comment on above: Room air 12-06-2017 11:12-0500 Respiratory Rate 17 /min Latrice Levy LPN [facility] Work Phone: Comment on above: Pattern: Unlabored 12-06-2017 11:12-0500 SaO2% (BldA) [Mass fraction] 97 % Latrice Levy LPN [facility] Work Phone: Comment on above: Room air 12-06-2017 11:12-0500 Weight 80.29 kg Marcia Walker [facility] Work Phone: 11-30-2017 09:30-0500 BMI (Body Mass Index) 34.94 kg/m2 Veronique Childers RN [facility] Work Phone: 11-30-2017 09:30-0500 Body Temperature 97.4 [degF] Veronique Childers RN [facility] Work Phone: Comment on above: Method: Temporal 11-30-2017 09:30-0500 Body weight 78.47 kg Veronique Childers RN [facility] Work Phone: 11-30-2017 09:30-0500 BP Diastolic 78 mm[Hg] Veronique Childers RN [facility] Work Phone: Comment on above: Patient Position: Sitting; Cuff Location : Left Arm; Cuff Size: Large 11-30-2017 09:30-0500 BP Systolic 128 mm[Hg] Veronique Childers RN [facility] Work Phone: Comment on above: Patient Position: Sitting; Cuff Location : Left Arm; Cuff Size: Large 11-30-2017 09:30-0500 BSA (Body Surface Area) 1.73 m2 Veronique Childers RN [facility] Work Phone: 11-30-2017 09:30-0500 Height 149.86 cm Veronique Childers RN [facility] Work Phone: 11-30-2017 09:30-0500 Pulse (Heart Rate) 86 /min Veronique Childers RN [facility] Work Phone: Comment on above: Pattern: Regular 11-30-2017 09:30-0500 Pulse Oximetry 95 % Marcia Walker [facility] Work Phone: Comment on above: Room air 11-30-2017 09:30-0500 Respiratory Rate 18 /min Veronique Childers RN [facility] Work Phone: Comment on above: Pattern: Unlabored 11-30-2017 09:30-0500 SaO2% (BldA) [Mass fraction] 95 % Veronique Childers RN [facility] Work Phone: Comment on above: Room air 11-30-2017 09:30-0500 Weight 78.47 kg Marcia Walker [facility] Work Phone: 08-10-2017 14:52-0400 BMI (Body Mass Index) 34.94 kg/m2 Latrice Levy LPN [facility] Medicine Work Phone: 08-10-2017 14:52-0400 Body Temperature 97.3 [degF] Latrice Levy LPN [facility] Work Phone: 08-10-2017 14:52-0400 Body weight 78.47 kg Latrice Levy LPN [facility] Work Phone: 08-10-2017 14:52-0400 BP Diastolic 82 mm[Hg] Latrice Slarb HAND STRIPER [facility] Work Phone: Comment on above: Patient Position: Sitting; Cuff Location : Left Arm; Cuff Size: Standard 08-10-2017 14:52-0400 BP Systolic 142 mm[Hg] Latrice Eleanorrb HAND STRIPER [facility] Work Phone: Comment on above: Patient Position: Sitting; Cuff Location : Left Arm; Cuff Size: Standard 08-10-2017 14:52-0400 BSA (Body Surface Area) 1.73 m2 Latrice Eleanorrb HAND STRIPER [facility] Work Phone: 08-10-2017 14:52-0400 Height 149.86 cm Latrice Eleanorrb HAND STRIPER [facility] Work Phone: 08-10-2017 14:52-0400 Pulse (Heart Rate) 99 /min Latrice Levy HAND STRIPER [facility] Work Phone: Comment on above: Pattern: Regular 08-10-2017 14:52-0400 Pulse Oximetry 94 % Marcia Walker [facility] Work Phone: Comment on above: Room air 08-10-2017 14:52-0400 Respiratory Rate 17 /min Latrice Levy HAND STRIPER [facility] Work Phone: Comment on above: Pattern: Unlabored 08-10-2017 14:52-0400 SaO2% (BldA) [Mass fraction] 94 % Latrice Eleanorrb HAND STRIPER [facility] Work Phone: Comment on above: Room air 08-10-2017 14:52-0400 Weight 78.47 kg Marcia Walker [facility] Work Phone: 05-07-2017 11:00-0400 BMI (Body Mass Index) 33.93 kg/m2 Federica Olivarez [facility] Internal Medicine Work Phone: 05-07-2017 11:00-0400 Body weight 76.2 kg Federica Olivarez [facility] Work Phone: 05-07-2017 11:00-0400 BP Diastolic 68 mm[Hg] Federica Olivarez [facility] Work Phone: Comment on above: Patient Position: Sitting; Cuff Location : Left Arm; Cuff Size: Standard 05-07-2017 11:00-0400 BP Systolic 122 mm[Hg] Federica Olivarez [facility] Work Phone: Comment on above: Patient Position: Sitting; Cuff Location : Left Arm; Cuff Size: Standard 05-07-2017 11:00-0400 BSA (Body Surface Area) 1.71 m2 Federica Olivarez [facility] Work Phone: 05-07-2017 11:00-0400 Height 149.86 cm Federica Olivarez [facility] Work Phone: 05-07-2017 11:00-0400 Pulse (Heart Rate) 103 /min Federica Olivarez [facility] Work Phone: Comment on above: Pattern: Regular 05-07-2017 11:00-0400 Pulse Oximetry 98 % Marcia Walker [facility] Work Phone: Comment on above: Room air 05-07-2017 11:00-0400 Respiratory Rate 16 /min Federica Olivarez [facility] Work Phone: Comment on above: Pattern: Unlabored 05-07-2017 11:00-0400 SaO2% (BldA) [Mass fraction] 98 % Federica Olivarez [facility] Work Phone: Comment on above: Room air 05-07-2017 11:00-0400 Weight 76.2 kg Marcia Walker [facility] Work Phone: 02-09-2017 13:52-0400 BMI (Body Mass Index) 33.93 kg/m2 Latrice Levy LPN [facility] Internal Medicine Work Phone: 02-09-2017 13:52-0400 Body Temperature 97.1 [degF] Latrice Levy LPN [facility] Work Phone: 02-09-2017 13:52-0400 Body weight 76.2 kg Latrice Levy LPN [facility] Work Phone: 02-09-2017 13:52-0400 BP Diastolic 76 mm[Hg] Latrice Eleanorrb HAND STRIPER [facility] Work Phone: Comment on above: Patient Position: Sitting; Cuff Location : Left Arm; Cuff Size: Standard 02-09-2017 13:52-0400 BP Systolic 118 mm[Hg] Latrice Websterrb HAND STRIPER [facility] Work Phone: Comment on above: Patient Position: Sitting; Cuff Location : Left Arm; Cuff Size: Standard 02-09-2017 13:52-0400 BSA (Body Surface Area) 1.71 m2 Latrice Websterrb HAND STRIPER [facility] Work Phone: 02-09-2017 13:52-0400 Height 149.86 cm Latrice Websterrb HAND STRIPER [facility] Work Phone: 02-09-2017 13:52-0400 Pulse (Heart Rate) 90 /min Latrice Websterrb HAND STRIPER [facility] Work Phone: Comment on above: Pattern: Regular 02-09-2017 13:52-0400 Pulse Oximetry 96 % Marcia Walker [facility] Work Phone: Comment on above: Room air 02-09-2017 13:52-0400 Respiratory Rate 16 /min Latrice Websterrb HAND STRIPER [facility] Work Phone: Comment on above: Pattern: Unlabored 02-09-2017 13:52-0400 SaO2% (BldA) [Mass fraction] 96 % Latrice Websterrb HAND STRIPER [facility] Work Phone: Comment on above: Room air 02-09-2017 13:52-0400 Weight 76.2 kg Marcia Walker [facility] Work Phone: 12-09-2016 11:01-0500 BMI (Body Mass Index) 35.35 kg/m2 Latrice Eleanorrb HAND STRIPER [facility] Work Phone: 12-09-2016 11:01-0500 Body Temperature 97.8 [degF] Latrice Eleanorrb HAND STRIPER [facility] Work Phone: 12-09-2016 11:01-0500 Body weight 79.38 kg Latrice Websterrb HAND STRIPER [facility] Work Phone: 12-09-2016 11:01-0500 BP Diastolic 82 mm[Hg] Latrice Eleanorrb HAND STRIPER [facility] Work Phone: Comment on above: Patient Position: Sitting; Cuff Location : Left Arm; Cuff Size: Standard 12-09-2016 11:01-0500 BP Systolic 124 mm[Hg] Latrice Eleanorrb HAND STRIPER [facility] Work Phone: Comment on above: Patient Position: Sitting; Cuff Location : Left Arm; Cuff Size: Standard 12-09-2016 11:01-0500 BSA (Body Surface Area) 1.74 m2 Latrice Eleanorrb HAND STRIPER [facility] Work Phone: 12-09-2016 11:01-0500 Height 149.86 cm Latrice Eleanorrb HAND STRIPER [facility] Work Phone: 12-09-2016 11:01-0500 Pulse (Heart Rate) 102 /min Latrice Eleanorrb HAND STRIPER [facility] Work Phone: Comment on above: Pattern: Regular 12-09-2016 11:01-0500 Pulse Oximetry 98 % Marcia Walker [facility] Work Phone: Comment on above: Room air 12-09-2016 11:01-0500 Respiratory Rate 16 /min Latrice Eleanorrb HAND STRIPER [facility] Work Phone: Comment on above: Pattern: Unlabored 12-09-2016 11:01-0500 SaO2% (BldA) [Mass fraction] 98 % Latrice Slarb HAND STRIPER [facility] Work Phone: Comment on above: Room air 12-09-2016 11:01-0500 Weight 79.38 kg Marcia Walker [facility] Work Phone: 10-13-2016 15:03-0500 BMI (Body Mass Index) 36.56 kg/m2 Latrice Slarb HAND STRIPER [facility] Work Phone: 10-13-2016 15:03-0500 Body Temperature 97.6 [degF] Latrice Levy HAND STRIPER [facility] Work Phone: 10-13-2016 15:03-0500 Body weight 82.1 kg Latrice Levy HAND STRIPER [facility] Work Phone: 10-13-2016 15:03-0500 BP Diastolic 82 mm[Hg] Latrice Eleanorrb HAND STRIPER [facility] Work Phone: Comment on above: Patient Position: Sitting; Cuff Location : Left Arm; Cuff Size: Standard 10-13-2016 15:03-0500 BP Systolic 124 mm[Hg] Latrice Websterrb HAND STRIPER [facility] Work Phone: Comment on above: Patient Position: Sitting; Cuff Location : Left Arm; Cuff Size: Standard 10-13-2016 15:03-0500 BSA (Body Surface Area) 1.77 m2 Latrice Websterrb HAND STRIPER [facility] Work Phone: 10-13-2016 15:03-0500 Height 149.86 cm Latrice Levy HAND STRIPER [facility] Work Phone: 10-13-2016 15:03-0500 Pulse (Heart Rate) 90 /min Latrice Levy LPN [facility] Work Phone: Comment on above: Pattern: Regular 10-13-2016 15:03-0500 Pulse Oximetry 95 % Marcia Walker [facility] Work Phone: Comment on above: Room air 10-13-2016 15:03-0500 Respiratory Rate 16 /min Latrice Levy LPN [facility] Work Phone: Comment on above: Pattern: Unlabored 10-13-2016 15:03-0500 SaO2% (BldA) [Mass fraction] 95 % Latrice Levy HAND STRIPER [facility] Work Phone: Comment on above: Room air 10-13-2016 15:03-0500 Weight 82.1 kg Marcia Walker [facility] Work Phone: 09-30-2016 11:20-0400 BMI (Body Mass Index) 36.56 kg/m2 Latrice Slarb HAND STRIPER [facility] Work Phone: 09-30-2016 11:20-0400 Body Temperature 98.2 [degF] Latrice Eleanorrb HAND STRIPER [facility] Work Phone: 09-30-2016 11:20-0400 Body weight 82.1 kg Latrice Websterrb HAND STRIPER [facility] Work Phone: 09-30-2016 11:20-0400 BP Diastolic 80 mm[Hg] Latrice Slarb HAND STRIPER [facility] Work Phone: Comment on above: Patient Position: Sitting; Cuff Location : Left Arm; Cuff Size: Standard 09-30-2016 11:20-0400 BP Systolic 124 mm[Hg] Latrice Eleanorrb HAND STRIPER [facility] Work Phone: Comment on above: Patient Position: Sitting; Cuff Location : Left Arm; Cuff Size: Standard 09-30-2016 11:20-0400 BSA (Body Surface Area) 1.77 m2 Latrice Slarb HAND STRIPER [facility] Work Phone: 09-30-2016 11:20-0400 Height 149.86 cm Latrice Websterrb HAND STRIPER [facility] Work Phone: 09-30-2016 11:20-0400 Pulse (Heart Rate) 72 /min Latrice Eleanorrb HAND STRIPER [facility] Work Phone: Comment on above: Pattern: Regular 09-30-2016 11:20-0400 Pulse Oximetry 96 % Marcia Walker [facility] Work Phone: Comment on above: Room air 09-30-2016 11:20-0400 Respiratory Rate 17 /min Latrice Levy HAND STRIPER [facility] Work Phone: Comment on above: Pattern: Unlabored 09-30-2016 11:20-0400 SaO2% (BldA) [Mass fraction] 96 % Latrice Slarb HAND STRIPER [facility] Work Phone: Comment on above: Room air 09-30-2016 11:20-0400 Weight 82.1 kg Marcia Walker [facility] Work Phone: 08-28-2013 14:44-0400 BMI (Body Mass Index) 38.4 kg/m2 Melonie Lanza LPN [facility] Work Phone: 08-28-2013 14:44-0400 Body Temperature 98 [degF] Melonie Lanza LPN [facility] Work Phone: Comment on above: Method: Oral 08-28-2013 14:44-0400 Body weight 86.24 kg Melonie Lanza LPN [facility] Work Phone: 08-28-2013 14:44-0400 BP Diastolic 86 mm[Hg] Melonie Lanza LPN [facility] Work Phone: Comment on above: Patient Position: Sitting; Cuff Location : Left Arm; Cuff Size: Standard 08-28-2013 14:44-0400 BP Systolic 144 mm[Hg] Melonie Lanza LPN [facility] Work Phone: Comment on above: Patient Position: Sitting; Cuff Location : Left Arm; Cuff Size: Standard 08-28-2013 14:44-0400 BSA (Body Surface Area) 1.8 m2 Melonie Lanza LPN [facility] Work Phone: 08-28-2013 14:44-0400 Height 149.86 cm Melonie Lanza LPN [facility] Work Phone: 08-28-2013 14:44-0400 Pulse (Heart Rate) 90 /min Melonie Lanza LPN [facility] Work Phone: Comment on above: Pattern: Regular 08-28-2013 14:44-0400 Respiratory Rate 16 /min Melonie Lanza LPN [facility] Work Phone: 08-28-2013 14:44-0400 Weight 86.24 kg Marcia Walker [facility] Work Phone: 08-15-2013 11:28-0400 BMI (Body Mass Index) 38.4 kg/m2 Melonie Lanza LPN [facility] Work Phone: 08-15-2013 11:28-0400 Body Temperature 98.8 [degF] Melonie Lanza LPN [facility] Work Phone: Comment on above: Method: Oral 08-15-2013 11:28-0400 Body weight 86.24 kg Melonie Lanza LPN [facility] Work Phone: 08-15-2013 11:28-0400 BP Diastolic 76 mm[Hg] Melonie Lanza LPN [facility] Work Phone: Comment on above: Patient Position: Sitting; Cuff Location : Left Arm; Cuff Size: Standard 08-15-2013 11:28-0400 BP Systolic 136 mm[Hg] Melonie Lanza LPN [facility] Work Phone: Comment on above: Patient Position: Sitting; Cuff Location : Left Arm; Cuff Size: Standard 08-15-2013 11:28-0400 BSA (Body Surface Area) 1.8 m2 Melonie Lanza LPN [facility] Work Phone: 08-15-2013 11:28-0400 Height 149.86 cm Melonie Lanza LPN [facility] Work Phone: 08-15-2013 11:28-0400 Pulse (Heart Rate) 82 /min Melonie Lanza LPN [facility] Work Phone: Comment on above: Pattern: Regular 08-15-2013 11:28-0400 Pulse Oximetry 96 % Marcia Walker [facility] Work Phone: Comment on above: Room air 08-15-2013 11:28-0400 Respiratory Rate 17 /min Melonie Lanza LPN [facility] Work Phone: 08-15-2013 11:28-0400 SaO2% (BldA) [Mass fraction] 96 % Melonie Lanza LPN [facility] Work Phone: Comment on above: Room air 08-15-2013 11:28-0400 Weight 86.24 kg Marcia Walker [facility] Work Phone: 08-07-2013 10:47-0400 BMI (Body Mass Index) 38.4 kg/m2 Melonie Lanza LPN [facility] Work Phone: 08-07-2013 10:47-0400 Body Temperature 98 [degF] Melonie Lanza LPN [facility] Work Phone: Comment on above: Method: Oral 08-07-2013 10:47-0400 Body weight 86.24 kg Melonie Lanza LPN [facility] Work Phone: 08-07-2013 10:47-0400 BP Diastolic 82 mm[Hg] Melonie Lanza LPN [facility] Work Phone: Comment on above: Patient Position: Sitting; Cuff Location : Left Arm; Cuff Size: Standard 08-07-2013 10:47-0400 BP Systolic 142 mm[Hg] Melonie Lanza LPN [facility] Work Phone: Comment on above: Patient Position: Sitting; Cuff Location : Left Arm; Cuff Size: Standard 08-07-2013 10:47-0400 BSA (Body Surface Area) 1.8 m2 Melonie Lanza LPN [facility] Work Phone: 08-07-2013 10:47-0400 Height 149.86 cm Melonie Lanza LPN [facility] Work Phone: 08-07-2013 10:47-0400 Pulse (Heart Rate) 74 /min Melonie Lanza LPN [facility] Work Phone: Comment on above: Pattern: Regular 08-07-2013 10:47-0400 Pulse Oximetry 96 % Marcia Walker [facility] Work Phone: Comment on above: Room air 08-07-2013 10:47-0400 Respiratory Rate 18 /min Melonie Lanza LPN [facility] Work Phone: 08-07-2013 10:47-0400 SaO2% (BldA) [Mass fraction] 96 % Melonie Lanza LPN [facility] Work Phone: Comment on above: Room air 08-07-2013 10:47-0400 Weight 86.24 kg Marcia Walker [facility] Work Phone: 03-06-2013 13:53-0400 BMI (Body Mass Index) 37.48 kg/m2 Veronique Childers RN [facility] Work Phone: 03-06-2013 13:53-0400 Body Temperature 98 [degF] Veronique Childers RN [facility] Work Phone: Comment on above: Method: Oral 03-06-2013 13:53-0400 Body weight 84.88 kg Veronique Childers RN [facility] Work Phone: 03-06-2013 13:53-0400 BP Diastolic 62 mm[Hg] Veronique Childers RN [facility] Work Phone: Comment on above: Patient Position: Sitting; Cuff Location : Left Arm; Cuff Size: Large 03-06-2013 13:53-0400 BP Systolic 124 mm[Hg] Veronique Childers RN [facility] Work Phone: Comment on above: Patient Position: Sitting; Cuff Location : Left Arm; Cuff Size: Large 03-06-2013 13:53-0400 BSA (Body Surface Area) 1.8 m2 Veronique Childers RN [facility] Work Phone: 03-06-2013 13:53-0400 Height 150.5 cm Veronique Childers RN [facility] Work Phone: 03-06-2013 13:53-0400 Pulse (Heart Rate) 60 /min Veronique Childers RN [facility] Work Phone: Comment on above: Pattern: Regular 03-06-2013 13:53-0400 Respiratory Rate 20 /min Veronique Childers RN [facility] Work Phone: Comment on above: Pattern: Unlabored 03-06-2013 13:53-0400 Weight 84.88 kg Marcia Walker [facility] Work Phone: 03-07-2012 11:15-0400 BMI (Body Mass Index) 36.05 kg/m2 Safia Sosa RN [facility] Work Phone: 03-07-2012 11:15-0400 Body Temperature 96.8 [degF] Safia Sosa RN [facility] Work Phone: Comment on above: Method: Oral 03-07-2012 11:15-0400 Body weight 81.65 kg Safia Sosa RN [facility] Work Phone: 03-07-2012 11:15-0400 BP Diastolic 82 mm[Hg] Safia Sosa RN [facility] Work Phone: Comment on above: Patient Position: Sitting; Cuff Location : Left Arm; Cuff Size: Large 03-07-2012 11:15-0400 BP Systolic 134 mm[Hg] Safia Sosa RN [facility] Work Phone: Comment on above: Patient Position: Sitting; Cuff Location : Left Arm; Cuff Size: Large 03-07-2012 11:15-0400 BSA (Body Surface Area) 1.77 m2 Safia Sosa RN [facility] Work Phone: 03-07-2012 11:15-0400 Height 150.5 cm Safia Sosa RN [facility] Work Phone: 03-07-2012 11:15-0400 Pulse (Heart Rate) 68 /min Safia Sosa RN [facility] Work Phone: Comment on above: Pattern: Regular 03-07-2012 11:15-0400 Respiratory Rate 16 /min Safia Sosa RN [facility] Work Phone: Comment on above: Pattern: Unlabored 03-07-2012 11:15-0400 Weight 81.65 kg Marcia Walker [facility] Work Phone: 04-29-2010 14:31-0400 Body Temperature 97.8 [degF] Melonie Lanza LPN [facility] Work Phone: Comment on above: Method: Oral 04-29-2010 14:31-0400 BP Diastolic 72 mm[Hg] Melonie Lanza LPN [facility] Work Phone: Comment on above: Patient Position: Sitting; Cuff Location : Left Arm; Cuff Size: Standard 04-29-2010 14:31-0400 BP Systolic 112 mm[Hg] Melonie Lanza LPN [facility] Work Phone: Comment on above: Patient Position: Sitting; Cuff Location : Left Arm; Cuff Size: Standard 04-29-2010 14:31-0400 Pulse (Heart Rate) 82 /min Melonie aLnza LPN [facility] Work Phone: Comment on above: Pattern: Regular 04-29-2010 14:31-0400 Respiratory Rate 16 /min Melonie Lanza HAND STRIPER [facility] Work Phone: Comment on above: Pattern: Unlabored 10-18-2009 10:17-0500 BMI (Body Mass Index) 32.82 kg/m2 Veronique Childers RN [facility] Work Phone: 10-18-2009 10:17-0500 Body weight 81.39 kg Veronique Childers RN [facility] Work Phone: 10-18-2009 10:17-0500 BP Diastolic 82 mm[Hg] Veronique Childers RN [facility] Work Phone: Comment on above: Patient Position: Sitting; Cuff Location : Left Arm; Cuff Size: Large 10-18-2009 10:17-0500 BP Systolic 118 mm[Hg] Veronique Childers RN [facility] Work Phone: Comment on above: Patient Position: Sitting; Cuff Location : Left Arm; Cuff Size: Large 10-18-2009 10:17-0500 BSA (Body Surface Area) 1.83 m2 Veronique Childers RN [facility] Work Phone: 10-18-2009 10:17-0500 Head Circumference 0 cm Marcia Walker [facility] Work Phone: 10-18-2009 10:17-0500 Head Occipital-frontal circumference 0 cm Veronique Childers RN [facility] Work Phone: 10-18-2009 10:17-0500 Height 157.48 cm eVronique Childers RN [facility] Work Phone: 10-18-2009 10:17-0500 Pulse (Heart Rate) 80 /min Veronique Childers RN [facility] Work Phone: Comment on above: Pattern: Regular 10-18-2009 10:17-0500 Respiratory Rate 20 /min Veronique Childers RN [facility] Work Phone: Comment on above: Pattern: Unlabored 10-18-2009 10:170500 Weight 81.39 kg Marcia Walker [facility] Work Phone: Encounters Encounter Date Encounter Type Care Provider Facility Start: 05-31-2025 End: 05-31-2025 Emergency department patient visit Karen Alcazar TELEGRAPH AND TELETYPE OPERATOR-C Work Phone: -Emergency Department Work Phone: Start: 01-04-2025 End: 01-04-2025 ambulatory Karen Alcazar Facility:[facility] Start: 11-01-2024 End: 11-01-2024 Telephone encounter Celena Kaba APRN.ASSET MANAGEMENT ANALYST Work Phone: Hematology/Oncology Start: 10-31-2024 End: 10-31-2024 ambulatory Karen Alcazar Facility:[facility] Start: 10-09-2024 ambulatory Kelvin Ayala Facility:[facility] Start: 10-09-2024 End: 10-09-2024 ambulatory Karen Ottoniel Facility:[facility] Start: 09-25-2024 End: 09-25-2024 Emergency department patient visit Lyle Guerrero Facility:[facility] Start: 09-25-2024 End: 09-25-2024 ambulatory Karen Ottoniel Facility:[facility] Start: 08-01-2024 End: 08-01-2024 ambulatory Karen Ottoniel Facility:[facility] Start: 07-20-2023 End: 07-29-2023 Office outpatient visit 25 minutes Karen Alcazar ASSET MANAGEMENT ANALYST Work Phone: [facility] Start: 07-05-2023 End: 07-05-2023 ambulatory [facility] Work Phone: Start: 07-05-2023 End: 07-05-2023 Patient encounter procedure [facility] Work Phone: Start: 06-21-2023 End: 06-21-2023 Karen Alcazar ASSET MANAGEMENT ANALYST Work Phone: [facility] Start: 01-19-2023 ambulatory Karen Alcazar CNP [facility] Start: 01-19-2023 End: 02-02-2023 Office outpatient visit 15 minutes Karen Ottoniel BRICEÑO Work Phone: [facility] Start: 01-19-2023 Karen Alcazar CNP Work Phone: [facility] Start: 01-05-2023 End: 01-05-2023 Karen Alcazar CNP Work Phone: [facility] Start: 09-22-2022 End: 09-22-2022 Office outpatient visit 15 minutes Karen Alczaar CNP Work Phone: [facility] Start: 09-22-2022 Karen Alcazar CNP Work Phone: [facility] Start: 08-12-2022 End: 08-12-2022 Office outpatient visit 15 minutes Karen Alcazar CNP Work Phone: [facility] Start: 07-07-2022 End: 07-07-2022 Office outpatient visit 15 minutes Karen Ottoniel CNP Work Phone: [facility] Start: 05-26-2022 End: 05-28-2022 Office outpatient visit 25 minutes Karen Alcazar CNP Work Phone: [facility] Start: 05-26-2022 Review Karen Alcazar CNP Work Phone: [facility] Start: 05-19-2022 End: 05-19-2022 Patient encounter procedure [facility] Start: 02-27-2022 End: 02-27-2022 Office outpatient visit 15 minutes Marcia Walker Work Phone: [facility] Start: 11-18-2021 End: 11-18-2021 Office outpatient visit 25 minutes Marcia Walker CNP Work Phone: [facility] Start: 08-13-2021 End: 08-13-2021 Office outpatient visit 25 minutes Marcia Walker CNP Work Phone: [facility] Start: 03-28-2021 End: 03-28-2021 Annotation/Addendum Marcia Ciesa ASSET MANAGEMENT ANALYST Work Phone: [facility] Start: 03-28-2021 End: 03-28-2021 Karen Alcazar ASSET MANAGEMENT ANALYST Work Phone: [facility] Start: 03-19-2021 End: 03-19-2021 Office outpatient visit 25 minutes Marcia Walker ASSET MANAGEMENT ANALYST Work Phone: [facility] Start: 03-19-2021 Review Marcia Walker ASSET MANAGEMENT ANALYST Work Phone: [facility] Start: 03-13-2021 End: 03-13-2021 Lab Order Marcia Walker [facility] Start: 03-13-2021 End: 03-13-2021 Karen Alcazar ASSET MANAGEMENT ANALYST Work Phone: [facility] Start: 03-10-2021 Review Marcia Morin [facility] Start: 03-10-2021 End: 03-10-2021 Phone Encounter Marcia Walker [facility] Start: 03-10-2021 End: 03-10-2021 Karen Alcazar ASSET MANAGEMENT ANALYST Work Phone: [facility] Start: 02-24-2021 End: 02-24-2021 Office outpatient visit 15 minutes Marcia Walker [facility] Start: 09-30-2020 End: 09-30-2020 Annotation/Addendum Marcia Walker [facility] Start: 09-30-2020 End: 09-30-2020 Karen Alcazar ASSET MANAGEMENT ANALYST Work Phone: [facility] Start: 08-09-2020 End: 08-09-2020 Annotation/Addendum Marcia Walker [facility] Start: 08-09-2020 End: 08-09-2020 Karen Alcazar ASSET MANAGEMENT ANALYST Work Phone: [facility] Start: 06-11-2020 End: 06-11-2020 Annotation/Addendum Marcia Walker [facility] Start: 06-11-2020 Review Marcia Morin [facility] Start: 06-11-2020 End: 06-11-2020 Karen Alcazar CNP Work Phone: [facility] Start: 06-10-2020 End: 06-10-2020 Office outpatient visit 15 minutes Marcia Walker [facility] Start: 02-23-2020 End: 02-23-2020 Office outpatient visit 10 minutes Marcia Walker [facility] Start: 02-21-2020 End: 02-21-2020 Office outpatient visit 15 minutes Marcia Walker [facility] Start: 02-16-2020 End: 02-16-2020 Office outpatient visit 25 minutes Marcia Walker [facility] Start: 12-14-2019 End: 12-14-2019 Office outpatient visit 15 minutes Marcia Meiera [facility] Start: 11-06-2019 End: 11-06-2019 Office outpatient visit 25 minutes Marcia Walker [facility] Start: 08-28-2019 End: 08-28-2019 Office outpatient visit 25 minutes Marcia Meiera [facility] Start: 08-18-2019 End: 08-18-2019 Annotation/Addendum Marcia Walker [facility] Start: 08-18-2019 End: 08-18-2019 Karen Alcazar CNP Work Phone: [facility] Start: 04-03-2019 End: 04-03-2019 Office outpatient visit 15 minutes Marcia Walker [facility] Start: 03-14-2019 End: 03-14-2019 Annotation/Addendum Marcia Walker [facility] Start: 03-14-2019 End: 03-14-2019 Karen Alcazar CNP Work Phone: [facility] Start: 03-13-2019 End: 03-13-2019 Office outpatient visit 15 minutes Marcai Walker [facility] Start: 03-13-2019 Review Marcia Aaron Comprehens [facility] Start: 01-19-2019 End: 01-19-2019 Office outpatient visit 25 minutes Marcia Walker [facility] Start: 10-05-2018 End: 10-05-2018 Office outpatient visit 25 minutes Marcia Meiera [facility] Start: 09-16-2018 End: 09-16-2018 Annotation/Addendum Marcia Meiera [facility] Start: 09-16-2018 End: 09-16-2018 Karen Alcazar CNP Work Phone: [facility] Start: 09-01-2018 End: 09-01-2018 Annotation/Addendum Marcia Reneaa [facility] Start: 09-01-2018 End: 09-01-2018 Karen Alcazar CNP Work Phone: [facility] Start: 06-27-2018 End: 06-27-2018 Office outpatient visit 15 minutes Marcia Walker [facility] Start: 06-14-2018 End: 06-14-2018 Office outpatient visit 25 minutes Marcia Walker [facility] Start: 04-20-2018 End: 04-20-2018 Lab Order Marcia Walker [facility] Start: 04-20-2018 End: 04-20-2018 Karen Alcazar CNP Work Phone: [facility] Start: 03-25-2018 End: 03-25-2018 Phone Encounter Marcia Walker [facility] Start: 03-25-2018 End: 03-25-2018 Karen Alcazar ASSET MANAGEMENT ANALYST Work Phone: [facility] Start: 03-15-2018 End: 03-15-2018 Phone Encounter Marcia Walker [facility] Start: 03-15-2018 End: 03-15-2018 Karen Alcazar CNP Work Phone: [facility] Start: 03-15-2018 End: 03-15-2018 Office outpatient visit 25 minutes Marcia Reneatarsha [facility] Start: 12-06-2017 End: 12-06-2017 Office outpatient visit 25 minutes Marcia Meiertarsha [facility] Start: 11-30-2017 End: 11-30-2017 Office outpatient visit 15 minutes Marcia Meiretarsha [facility] Start: 10-04-2017 End: 10-04-2017 Annotation/Addendum Marcia Walker [facility] Start: 10-04-2017 End: 10-04-2017 Karen Alcazar CNP Work Phone: [facility] Start: 09-20-2017 [facility] Facility [facility] Start: 08-10-2017 End: 08-10-2017 Office outpatient visit 25 minutes Marcia Reneatarsha [facility] Start: 05-07-2017 End: 05-07-2017 Office outpatient visit 25 minutes Marcia Reneatarsha [facility] Start: 02-09-2017 End: 02-09-2017 Office outpatient visit 25 minutes Marcia Reneatarsha [facility] Start: 12-09-2016 End: 12-09-2016 Office outpatient visit 25 minutes Marcia Walker [facility] Start: 10-13-2016 End: 10-13-2016 Patient encounter Marcia Walker [facility] Start: 10-13-2016 End: 10-13-2016 Karen Alcazar CNP Work Phone: [facility] Start: 10-13-2016 End: 10-13-2016 Office outpatient visit 25 minutes Marcia Walker [facility] Start: 09-30-2016 End: 09-30-2016 Annotation/Addendum Marcia Walker [facility] Start: 09-30-2016 End: 09-30-2016 Karen Alcazar CNP Work Phone: [facility] Start: 09-30-2016 End: 09-30-2016 Office outpatient visit 25 minutes Marcia Walker [facility] Start: 09-11-2013 End: 09-11-2013 Lab Order Marcia Walker [facility] Start: 09-11-2013 End: 09-11-2013 Karen Alcazar CNP Work Phone: [facility] Start: 08-28-2013 End: 08-28-2013 Office outpatient visit 15 minutes Marcia Walker [facility] Start: 08-15-2013 End: 08-15-2013 Office outpatient visit 25 minutes Marcia Walker [facility] Start: 08-07-2013 End: 08-07-2013 Office outpatient visit 40 minutes Marcia Walker [facility] Start: 03-06-2013 End: 03-06-2013 Patient encounter Marcia Walker [facility] Start: 03-06-2013 End: 03-06-2013 Karen Alcazar CNP Work Phone: [facility] Start: 03-07-2012 End: 03-07-2012 Patient encounter Marcia Walker [facility] Start: 03-07-2012 End: 03-07-2012 Karen Alcazar CNP Work Phone: [facility] Start: 04-29-2010 End: 04-29-2010 Office outpatient visit 15 minutes Marcia Walker [facility] Start: 10-18-2009 End: 10-18-2009 Office outpatient new 30 minutes Marcia Walker [facility] Patient encounter procedure Federica Olivarez CMA [facility] Work Phone: Patient encounter procedure Haseeb Brizuela HAND STRIPER [facility] Work Phone: Patient encounter procedure Latrice Cam HAND STRIPER [facility] Work Phone: Patient encounter procedure Haseeb Sherwood HAND STRIPER [facility] Work Phone: Patient encounter procedure Haseeb Brizuela HAND STRIPER [facility] Work Phone: Patient encounter procedure Ry Serna [facility] Work Phone: Patient encounter procedure Latrice Levy HAND STRIPER [facility] Work Phone: Patient encounter procedure Nellie Knox HAND STRIPER [facility] Work Phone: Patient encounter procedure Latricetarsha Levy HAND STRIPER [facility] Work Phone: Patient encounter procedure Karen Alcazar CNP Work Phone: [facility] Work Phone: Patient encounter procedure Flavia Coleman MA [facility] Work Phone: Procedures Date Procedure Procedure Detail Performing Clinician Start: 05-31-2025 Plain X-ray of shoulder Karen Alcazar TELEGRAPH AND TELETYPE OPERATOR-C Work Phone: Start: 05-31-2025 CT cervical spine without contrast Karen Alcazar TELEGRAPH AND TELETYPE OPERATOR-C Work Phone: Start: 05-31-2025 CT of face Karen wong TELEGRAPH AND TELETYPE OPERATOR-C Work Phone: Start: 05-31-2025 CT of head without contrast Karen Alcazar TELEGRAPH AND TELETYPE OPERATOR-C Work Phone: Start: 07-05-2023 Screening mammography Start: 07-05-2023 End: 07-05-2023 Procedure Note: See Note; NOTES: [facility] Imaging Services [address] [place] [address] SCRN MAMM (CAD)W/SHELIA BILAT MR#: [id number] Acct: [id number] Name: KAREN VILLALOBOS Rep #: [id number] : 1945 F 78 From: Fernando shaw MD PCP: ADRIANO Burgess Status: [facility] Study: SCRN MAMM (CAD)W/SHELIA BILAT Date of Exam: 06/20 Exam# [id number] Ordering Dr: Karen Alcazar TELEGRAPH AND TELETYPE OPERATOR-C MAMMOGRAPHY - BILATERAL SCREENING REASON FOR EXAM: Female, 78 years old. Routine annual screening examination. PERTINENT HISTORY: Personal history of breast cancer. History of prior bilateral lumpectomies with radiation treatment. Sisters with breast cancer. Aunt with breast cancer. TECHNIQUE: Digital bilateral breast shelia (3D mammographic acquisition) in the CC and MLO projections. 2-D mediolateral oblique (MLO) and craniocaudad (CC) views of both breasts were obtained. CAD: Full Field Digital Mammography with Computer Added Detection was performed. COMPARISON: Comparison is made with prior examination dated May 19, 2022 and April 11, 2021. FINDINGS: Breast Composition: There are scattered areas of fibroglandular density. There are no dominant masses or suspicious calcifications. Once again, there is evidence of a post operative changes in both breasts secondary to prior lumpectomy. Scattered calcifications bilaterally. No focal clusters seen. Surgical clips are once again seen in both axillary regions. No other significant abnormalities are identified. There has been no significant change since the prior study. BI/SCRN MAMM (CAD)W/SHELIA BILAT IMPRESSION: Stable bilateral screening mammogram. Yearly follow-up mammogram recommended. (A) ASSESSMENT CATEGORY: BIRADS Category 2: Benign. A letter regarding these results will be sent to the patient by the facility within 30 days. Approximately 10% of breast cancers are not detected by mammography. A normal mammogram should not delay biopsy of a clinically suspicious abnormality. [id number] Electronically Signed: Fernando Ford MD at 13:14 EDT , CC: TELEGRAPH AND TELETYPE OPERATOROmega Alcazar Tax Accounting Manager: Signed Karen Alcazar ASSET MANAGEMENT ANALYST Work Phone: Start: 05-19-2022 End: 05-22-2022 SCRN MAMM (CAD)W/SHELIA BILAT Comments: See Note; NOTES: [facility] Imaging Services [address] [place] [address] SCRN MAMM (CAD)W/SHELIA BILAT MR#: [id number] Acct: [id number] Name: KAREN VILLALOBOS Rep #: [id number] : 1945 F 76 From: Hamilton Rice DO PCP: ADRIANO Moralez Status: [facility] Study: SCRN MAMM (CAD)W/SHELIA BILAT Date of Exam: 04/30 12/20 Exam# [id number] Ordering Dr: Marcia Walker NP TELEGRAPH AND TELETYPE OPERATOR-C MAMMOGRAPHY - BILATERAL SCREENING REASON FOR EXAM: Female, 76 years old. Routine annual screening examination. PERTINENT HISTORY: Personal history of breast cancer treated with bilateral lumpectomies and radiation. Sister with breast cancer. Aunt with breast cancer. TECHNIQUE: Digital bilateral breast shelia (3D mammographic acquisition) in the CC and MLO projections. 2-D mediolateral oblique (MLO) and craniocaudad (CC) views of both breasts were obtained. CAD: Full Field Digital Mammography with Computer Added Detection was performed. COMPARISON: Screening mammogram from 04/11/2021 08/30/2019, 08/13/2018, 02/22/2017. Bilateral diagnostic mammogram from 10/10/2018. Bilateral diagnostic breast ultrasound from 08/30/2018. FINDINGS: Breast Composition: There are scattered areas of fibroglandular density. There are no dominant masses or suspicious calcifications. Stable bilateral lumpectomy postoperative changes with similar appearance of areas of associated architectural distortion. Benign-appearing diffuse bilateral calcifications. Bilateral axillary surgical clips. No other significant abnormalities are identified. There has been no significant change since the prior study. BI/SCRN MAMM (CAD)W/SHELIA BILAT IMPRESSION: Stable bilateral screening mammogram. Yearly follow-up mammogram recommended. (A) ASSESSMENT CATEGORY: BIRADS Category 2: Benign. A letter regarding these results will be sent to the patient by the facility within 30 days. Approximately 10% of breast cancers are not detected by mammography. A normal mammogram should not delay biopsy of a clinically suspicious abnormality. [id number] Electronically Signed: Hamilton Rice, at 9:11 EDT Reading Location ID and State: [facility] Tel , Service support , CC: ADRIANO Walker Tax Accounting Manager: Signed Marcia Walker Work Phone: Start: 04-11-2021 End: 04-11-2021 SCRN MAMM (CAD)W/SHELIA BILAT Comments: See Note; NOTES: [facility] Imaging Services [address] [place] [address] SCRN MAMM (CAD)W/SHELIA BILAT MR#: [id number] Acct: [id number] Name: KAREN VILLALOBOS Rep #: [id number] : 1945 F 75 From: Fernando shaw MD PCP: ADRIANO Moralez Status: [facility] Study: SCRN MAMM (CAD)W/SHELIA BILAT Date of Exam: 03/29 03/19 Exam# [id number] Ordering Dr: Marcia Walker NP TELEGRAPH AND TELETYPE OPERATOR-C MAMMOGRAPHY - BILATERAL SCREENING REASON FOR EXAM: Female, 75 years old. Routine annual screening examination. PERTINENT HISTORY: Personal history of breast cancer. Bilateral lumpectomies and radiation treatment. Sister with breast cancer. Aunt with breast cancer. TECHNIQUE: Digital bilateral breast shelia (3D mammographic acquisition) in the CC and MLO projections. 2-D mediolateral oblique (MLO) and craniocaudad (CC) views of both breasts were obtained. CAD: Full Field Digital Mammography with Computer Added Detection was performed. COMPARISON: Comparison is made with prior study 08/30/2019 and 10/10/2018. FINDINGS: Breast Composition: There are scattered areas of fibroglandular density. There are no dominant masses or suspicious calcifications. Status post lumpectomy in the central slightly lateral aspect of the right breast with resultant postoperative scarring. Scattered microcalcifications. The patient also status post lumpectomy in the left breast with resultant architectural distortion. Surgical clips are seen in the axillary regions bilaterally. No other significant abnormalities are identified. There has been no significant change since the prior study. BI/SCRN MAMM (CAD)W/SHELIA BILAT IMPRESSION: Stable bilateral screening mammogram. Yearly follow-up mammogram recommended. (A) ASSESSMENT CATEGORY: BIRADS Category 2: Benign. A letter regarding these results will be sent to the patient by the facility within 30 days. Approximately 10% of breast cancers are not detected by mammography. A normal mammogram should not delay biopsy of a clinically suspicious abnormality. [id number] Electronically Signed: Fernando Ford MD at 12:41 EDT , Service support , CC: ADRIANO Walker Tax Accounting Manager: Signed Marcia Walker [facility] Work Phone: Start: 03-20-2021 End: 03-21-2021 Sinus/Facial Bone Comments: See Note; NOTES: [facility] Imaging Services [address] [place] [address] Sinus/Facial Bone MR#: [id number] Acct: [id number] Name: KAREN VILLALOBOS Rep #: [id number] : 1945 F 75 From: Toni Bond MD PCP: ADRIANO Moralez Status: [facility] Study: Sinus/Facial Bone Date of Exam: 03/20/21 Exam# [id number] Ordering Dr: Arelis Chiu DO STUDY: CT MAXILLOFACIAL SINUSES REASON FOR EXAM: Female, 75 years old. CHRONIC SINUSITIS RADIATION DOSAGE (If Supplied By Facility): CTDIvol = ( 28.14 ) mGy, DLP = ( 686.39 ) mGycm TECHNIQUE: The patient was scanned in a multi detector CT scanner. High resolution axial imaging was performed without the administration of intravenous contrast material. Sagittal and coronal images were reconstructed. Individualized dose optimization techniques were used for this CT. COMPARISON: None. FINDINGS: FRONTAL SINUSES: Normal aeration, without mucosal inflammatory disease. ETHMOIDAL SINUSES: Normal aeration, without mucosal inflammatory disease. MAXILLARY SINUSES: Normal aeration, without mucosal inflammatory disease. SPHENOIDAL SINUSES: Normal aeration, without mucosal inflammatory disease. There is patency of the bilateral maxillary infundibuli with normal uncinate processes, ethmoid bullae, and hiatus semilunaris. Normal bilateral middle turbinates. Normal bilateral inferior turbinates. Normal midline nasal septum. There is patency of the bilateral nasal airways. The visualized osseous structures are normal. The visualized bilateral orbital contents are normal. CT/Sinus/Facial Bone IMPRESSION: Normal CT examination of the maxillofacial sinuses. Electronically Signed: Epifanio Bond MD at 12:44 EDT , Service support , CC: ADRIANO Walker; Dr. Arelis Chiu DO Tax Accounting Manager: Signed Arelis Chiu DO Work Phone: Start: 08-30-2019 End: 08-30-2019 SCREEN MAMM (CAD) W/SHELIA BILAT Comments: See Note; NOTES: [facility] Imaging Services [address] [place] [address] SCREEN MAMM (CAD) W/SHELIA BILAT MR#: [id number] Acct: [id number] Name: KAREN VILLALOBOS Rep #: [id number] : 1945 F 74 From: Fernando Ford MD PCP: Renata Mei DO Status: [facility] Study: SCREEN MAMM (CAD) W/SHELIA BILAT Date of Exam: 08/30/19 Exam# [id number] Ordering Dr: Marcia Walker TELEGRAPH AND TELETYPE OPERATOROmega MAMMOGRAPHY - BILATERAL SCREENING REASON FOR EXAM: Female, 74 years old. Routine annual screening examination. PERTINENT HISTORY: Personal history of breast cancer. Bilateral lumpectomies with radiation treatment. Sister with breast cancer. Aunt with breast cancer. TECHNIQUE: Digital bilateral breast shelia (3D mammographic acquisition) in the CC and MLO projections. 2-D mediolateral oblique (MLO) and craniocaudad (CC) views of both breasts were obtained. CAD: Full Field Digital Mammography with Computer Added Detection was performed. COMPARISON: Comparison is made with prior examination of August 23, 2018 and February 22, 2017. FINDINGS: Breast Composition: There are scattered areas of fibroglandular density. There are no dominant masses or suspicious calcifications. Since prior study, there is been lumpectomy of the nodular density seen in the mid slightly lateral portion of the right breast. Surgical clips are once again seen in both axillary regions. There is also evidence of resection of a nodular density in the upper lateral aspect of the left breast. Postoperative scarring is seen bilaterally. No other significant abnormalities are identified. BI/SCREEN MAMM (CAD) W/SHELIA BILAT IMPRESSION: Status post bilateral lumpectomy with resection of the nodular densities. Yearly follow-up mammogram recommended. (A) ASSESSMENT CATEGORY: BIRADS Category 2: Benign. A letter regarding these results will be sent to the patient by the facility within 30 days. Approximately 10% of breast cancers are not detected by mammography. A normal mammogram should not delay biopsy of a clinically suspicious abnormality. [id number] Electronically Signed: Fernando Liliana, at 14:52 EDT , Service support , CC: TELEGRAPH AND TELETYPE OPERATOR-Dinorah Walker; Renata Mei DO Tax Accounting Manager: Signed Marcia Walker Work Phone: Start: 05-09-2019 End: 05-09-2019 12 lead ECG Comments: See Note; NOTES: [facility] Cardiovascular Services [address] [place] [address] 12 Lead EKG 05/05/19 0048 MR#: [id number] Acct: [id number] Name: KAREN VILLALOBOS Rep #: [id number] : 1945 73 From: Palu Cruz MD Attending Dr: Status: DEP ER Ordering Dr: Huang Escudero MD Date: 05/05/19 Location: ED Sex: F C Admitted: Test Reason : ABD PAIN Blood Pressure : / mmHG Vent. Rate : 077 BPM Atrial Rate : 077 BPM P-R Int : 152 ms QRS Dur : 084 ms QT Int : 378 ms P-R-T Axes : 030 034 080 degrees QTc Int : 427 ms Normal sinus rhythm Minimal voltage criteria for LVH, may be normal variant Inferior infarct , age undetermined Abnormal ECG Confirmed by SHARATH CLEMONS, PAUL ([id number]), web content editor QUEENIE GUERRA ([id number]) on 05/09/2019 8:45:38 AM Referred By: EFRAIN Confirmed By:PAUL CRUZ MD 05/09/19 0845 Date Paul Cruz MD CC: Huang Escudero MD; Renata Mei DO Signed Marcia Walker Start: 05-05-2019 End: 05-05-2019 Emergency Department Summary Comments: See Note; NOTES: [facility] Medical Records Department [address] [place] [address] Emergency Department Summary 05/05/19 0023 MR#: [id number] Acct: [id number] Name: KAREN VILLALOBOS Rep #: [id number] : 1945 73 From: Huang Escudero MD PCP: Renata Mei DO Status: REG ER History of Present Illness Chief Complaint: Abd Pain Narrative: Patient is a 73-year-old female who presents with abdominal pain. This began about 7 PM, about 5 and half hours ago. She had eaten a turkey sandwich about an hour to an hour and a half before this. Food like that is never bothered her before. She describes her pain as severe burning epigastric pain. She denies any associated chest pain or shortness of breath. She had mild nausea but believes this may have been related to anxiety. She did take Mylanta and Zantac about an hour ago and her symptoms are now completely resolved. She did speak to her primary care physician prior to this who advised that if her symptoms worsen to seek medical care. Past Medical History - Allergies and Home Meds Allergies/Adverse Reactions: Allergies latex Allergy (Verified 05/04/19 23:57) Rash Penicillins [PCN] Allergy (Verified 05/04/19 23:57) Rash Primary Care Physician: Renata Mei DO [Primary Care Provider] - Past Medical History: - - Prediabetic Smoking Status: Never smoker Review of Systems All systems negative except as indicated General: Denies: Fever Cardiovascular: Denies: Chest pain Respiratory: Denies: Dyspnea Gastrointestinal: Reports: Abdominal pain, Nausea. Denies: Vomiting, Diarrhea Physical Exam Vital Signs/Narrative: Vital Signs 05/04/19 23:54 97 F L 69 16 108/70 96 General: Well nourished Head: Normocephalic Eyes: EOMI ENT: Moist mucous membranes Neck: Supple Cardiovascular: Regular rate, Regular rhythm Respiratory: No distress, CTA bilaterally Abdomen: Soft, Nontender, Nondistended Skin: Normal color Neurological: Alert Psychological: Normal affect Diagnostic/Tx/Re-eval Laboratory Tests - Medical Decision Making EKG shows normal sinus rhythm at a rate of 77 with no acute ischemic changes. Labs notable for thrombocytopenia with platelet count of 91. Thrombocytopenia noted on previous labs. Patient is asymptomatic. She was advised to follow-up as an outpatient. She was advised of possible need for further outpatient work-up such as right upper quadrant ultrasound especially if symptoms continue. She understands to return for new or worsening symptoms, all questions answered bedside, patient agreeable to plan. Patient discharged. ED Disposition - Plan for ED Patient: Diagnosis: Abdominal pain Instructions: ED Abdominal Pain Unkn Cause Referrals: Renata Mei, DO [Primary Care Provider] - What to do if you have Problems For any increased pain, shortness of breath, bleeding, nausea or vomiting, chest pain, or any unexpected problems, contact your Primary Care Provider. Call [facility] ([phone]) or report to the closest Emergency Room. Call 911 if necessary. 05/05/19 0107 <Electronically signed by Huang Escudero MD> Date Huang Escudero MD Cosigner Signature (If Indicated): Date CC: Renata Mei DO Marcia Walker Start: 04-18-2019 End: 04-18-2019 Discharge Instruction Comments: See Note; NOTES: [facility] Medical Records Department [address] [place] [address] Instructions for Home/Discharge Instructions 04/18/19 1318 MR#: [id number] Acct: [id number] Name: KAREN VILLALOBOS Rep #: [id number] : 1945 73 From: Renetta Najera MD PCP: Renata Mei DO Status: [place] [facility] [place] Dis[place] Diet: No Restrictions - Increase water intake x 3 days Discharge Activity: Return to Normal Activity, May Shower, May Take a Tub Bath - in 2 weeks., - - For the week after surgery, please ambulate frequently with periods of rest in between May shower in (days): 0 - TODAY May resume sexual activity in: 1 week Weight Bearing Status: Full weight bearing Lifting Restrictions: none Call your doctor if your incision/area has: Sudden Increased Bleeding Call your doctor if you observe: Fever of 101 or Higher, Inability to urinate, Inability to have a bowel movement, Using more than one pad per hour Cleanse incision/area with: Soap AND Water Allergies/Adverse Reactions: Allergies latex Allergy (Verified 04/18/19 11:26) Rash Penicillins [PCN] Allergy (Verified 04/18/19 11:26) Rash Medications to take at Discharge Cholecalciferol (Vitamin D3) [Vitamin D3] 1,000 unit PO DAILY 10/03/18 Levothyroxine Sodium [Synthroid] 25 mcg PO DAILY 10/03/18 Liraglutide [Victoza] 0.6 mg SQ DAILY 10/03/18 Metformin HCl [Metformin HCl ER] 500 mg PO BID 10/03/18 [place]-3 Fatty Acids [Fish Oil] 500 mg PO DAILY 10/03/18 Anastrozole [Arimidex] 1 mg PO DAILY 03/07/19 Primary Care Physician: Renata Mei DO [Primary Care Provider] - Test Results: Test results from this visit will be discussed in further detail at your follow-up appointment, if applicable. Please Follow Up With: Renetta Najera MD When: 1-2 weeks after surgery 04/18/19 1320 <Electronically signed by Renetta Najera MD> Date Renetta Najera MD CC: Renata Mei DO Signed Marcia Aaron Start: 04-18-2019 End: 04-18-2019 Operative Report Comments: See Note; NOTES: [facility] Medical Records Department [address] [place] [address] Operative Report 04/18/19 1313 MR#: [id number] Acct: [id number] Name: KAREN VILLALOBOS Rep #: [id number] : 1945 73 From: Renetta Najera MD PCP: Renata Mei DO Status: REG SDC Y Location: [place] [address] Problem List (1) Endometrial thickening on ultrasound Status: Acute Report of Operation Date of Procedure: 04/18/19 Pre-Operative Diagnosis: Thickened endometrium Post-Operative Diagnosis: Same plus cervical stenosis Surgery/Procedure Performed:: D AND C, hysteroscopy Description of Surgical Findings:: He was noted to be approximately 8 cm in anteflexed position the cervical eyes no increased with mobile as well as an atrial cavity was noted to have much tissue the opening of the cervical Type of Anesthesia:: Local, MAC Anesthesiologist: Kelvin Lin Special Medications: Clindamycin and Gentamycin IV Specimen's removed: Endometrium Drains: None Estimated Blood Loss (mL): Minimal Fluids Replaced: Lactated Ringer Description of Procedure: Patient was brought to the operating room placed on the surgical bed. She underwent a MAC anesthetic after monitors have been placed. Patient entry. After adequate anesthesia patient was was placed in dorsolithotomy position via the Pablo stirrups she was prepped and draped in normal sterile fashion. A second timeout occurred the bladder was drained by myself with a straight catheter with 30 cc of clear urine being noted. The vagina anterior lip cervix was grasped and elevated cervical eyes was not able to complete the uterine sound small dilators were used to slowly and successfully dilate that cervical stenosis was encountered. The cervical cervix was also in with 10 cc of 1% lidocaine through at the 4 quadrants of the cervix. Once dilation of the cervical eyes with the hysteroscope 3 mm visit to the endometrial cavity investigation of the endometrial cavity occurred with a scant amount of tissue being noted because of the endometrial cavity and collection of the small tissue was noted the patient did not reveal this point time then all instruments were removed from the vagina sponge and instrument counts were correct x2 hemostasis was noted to be noted that a second timeout occurred prior to the onset of the case. Patient was awakened in stable condition to be taken to recovery room for discharge home later today. Grafts/Implants Used: None - Admit VTE Documentation VTE Mechan Device Prophylaxis: SCD's Reason prophylaxis not ordered:: Procedure Not Indicated 04/18/19 1318 <Electronically signed by Renetta Najera MD> Date Renetta Najera MD CC: Renetta Najera MD; Renata Mei DO Signed Marcia Walker Start: 04-18-2019 End: 04-18-2019 History and Physical Exam Comments: See Note; NOTES: [facility] Medical Records Department [address] [place] [address] History and Physical 04/10/191953 MR#: [id number] Acct: [id number] Name: KAREN VILLALOBOS Rep #: [id number] : 1945 73 From: Renetta Najera MD PCP: Renata Mei DO Status: REG [facility] [place] Location: [place] [address] ADDENDUM by Renetta Najera MD on 04/18/19 at 1132 Code Visit Improved HgA1C via diet and exercise and monitoring by pcp. Otherwise, no changes. 04/18/19 1132 <Electronically signed by Renetta Najera MD> Date Renetta Najera MD cc: Renetta Najera MD; Renata Mei DO * Signed Problem List (1) Endometrial thickening on ultrasound Status: Acute History of Present Illness Date of Admission: 04/18/19 Chief Complaint: thickened endometrium on ultrasound The patient is a 73 year old F with breast cancer diagnosis and Victoza use. Prior ultrasound of pelvis with fluid noted in endometrium. Repeat ultrasound with continued fluid in the endometrium and thicker endometrium. Presents for D and C removal and analysis of endometrium. Previously scheduled for D and C which was cancelled due to elevated HgA1C above 8 for her known diabetes diagnosis. Diabetes now stable. Past Medical History Allergies latex Allergy (Verified 03/07/19 14:57) Rash Penicillins [PCN] Allergy (Verified 03/07/19 14:57) Rash Home Medications: Ambulatory Orders Medication Instructions Recorded Cholecalciferol (Vitamin D3) 1,000 unit PO DAILY 10/03/18 [Vitamin D3] Levothyroxine Sodium [Synthroid] 25 mcg PO DAILY 10/03/18 Liraglutide [Victoza] 0.6 mg SQ DAILY 10/03/18 Smoking Status: Never smoker Review of Systems Constitutional: Denies: Chills, Fever, Weight Change HEENT: Denies: Difficulty Hearing, Difficulty Swallowing, Nasal bleeding, Nasal Congestion, Sore Throat Cardiovascular: Denies: Chest Pain, Palpitations Respiratory: Denies: Shortness of Breath, Wheezing Gastrointestinal: Denies: Constipation, Diarrhea, Nausea, Vomiting Genitourinary: Denies: Dysuria, Frequency, Hematuria, Incontinence, Urgency Musculoskeletal: Denies: Joint Pain, Muscle pain Skin: Denies: Lesions, Skin Changes Neurological: Denies: Focal weakness, Numbness Psychiatric: Denies: Anxiety, Depression Endocrine: Denies: Heat/ Cold Intolerance Hematologic/ Lymphatic: Denies: Easy Bleeding VTE Information - Inpt Only VTE Present on Admission: No VTE Mechan Device Prophylaxis: None VTE Pharm Prophylaxis ordered?: No Reason prophylaxis not ordered:: Procedure Not Indicated Subjective: Healthy appearing female of stated age. - Physical Exam General: No apparent distress, Well developed, Well nourished HEENT: PERRLA, EOMI, Normocephalic Oral: Moist Mucosa Neck: Supple Lungs: Clear to auscultation, Normal air movement Cardiovascular: Regular rate, Regular Rhythm Abdomen: Soft, Non Tender, Non-Distended Extremities: No edema Skin: No rashes Neurological: Cranial nerves II-XII grossly intact Body Mass Index (BMI) 34.5 Finger Stick Blood Glucose 117 Assessment/Plan All Active Problems Endometrial thickening on ultrasound (Acute) 1. Endometrial thickening on ultrasound with known breast cancer D and C, hysteroscopy The preop preparation, the intraop procedures and the postop recovery reviewed. The risks of bleeding, infection and other organ damage including bladder, bowel and uterine perforation reviewed, accepted and consented. 2. Diabetes better control per pcp 04/10/192002 <Electronically signed by Renetta Najera MD> Date Renetta Najera MD Cosign Signature: Date (if applicable) CC: Renetta Najera MD; Renata Mei DO Signed Marcia Walker Start: 04-10-2019 End: 04-10-2019 History and Physical Exam Comments: See Note; NOTES: [facility] Medical Records Department [address] [place] [address] History and Physical 04/10/191953 MR#: [id number] Acct: [id number] Name: KAREN VILLALOBOS Rep #: [id number] : 1945 73 From: Renetta Najera MD PCP: Renata Mei DO Status: PRE [facility] [place] [facility] [place] Problem List (1) Endometrial thickening on ultrasound Status: Acute History of Present Illness Date of Admission: 04/18/19 Chief Complaint: thickened endometrium on ultrasound The patient is a 73 year old F with breast cancer diagnosis and Victoza use. Prior ultrasound of pelvis with fluid noted in endometrium. Repeat ultrasound with continued fluid in the endometrium and thicker endometrium. Presents for D and C removal and analysis of endometrium. Previously scheduled for D and C which was cancelled due to elevated HgA1C above 8 for her known diabetes diagnosis. Diabetes now stable. Past Medical History Allergies latex Allergy (Verified 03/07/19 14:57) Rash Penicillins [PCN] Allergy (Verified 03/07/19 14:57) Rash Home Medications: Ambulatory Orders Medication Instructions Recorded Cholecalciferol (Vitamin D3) 1,000 unit PO DAILY 10/03/18 [Vitamin D3] Levothyroxine Sodium [Synthroid] 25 mcg PO DAILY 10/03/18 Liraglutide [Victoza] 0.6 mg SQ DAILY 10/03/18 Smoking Status: Never smoker Review of Systems Constitutional: Denies: Chills, Fever, Weight Change HEENT: Denies: Difficulty Hearing, Difficulty Swallowing, Nasal bleeding, Nasal Congestion, Sore Throat Cardiovascular: Denies: Chest Pain, Palpitations Respiratory: Denies: Shortness of Breath, Wheezing Gastrointestinal: Denies: Constipation, Diarrhea, Nausea, Vomiting Genitourinary: Denies: Dysuria, Frequency, Hematuria, Incontinence, Urgency Musculoskeletal: Denies: Joint Pain, Muscle pain Skin: Denies: Lesions, Skin Changes Neurological: Denies: Focal weakness, Numbness Psychiatric: Denies: Anxiety, Depression Endocrine: Denies: Heat/ Cold Intolerance Hematologic/ Lymphatic: Denies: Easy Bleeding VTE Information - Inpt Only VTE Present on Admission: No VTE Mechan Device Prophylaxis: None VTE Pharm Prophylaxis ordered?: No Reason prophylaxis not ordered:: Procedure Not Indicated Subjective: Healthy appearing female of stated age. - Physical Exam General: No apparent distress, Well developed, Well nourished HEENT: PERRLA, EOMI, Normocephalic Oral: Moist Mucosa Neck: Supple Lungs: Clear to auscultation, Normal air movement Cardiovascular: Regular rate, Regular Rhythm Abdomen: Soft, Non Tender, Non-Distended Extremities: No edema Skin: No rashes Neurological: Cranial nerves II-XII grossly intact Body Mass Index (BMI) 34.5 Finger Stick Blood Glucose 117 Assessment/Plan All Active Problems Endometrial thickening on ultrasound (Acute) 1. Endometrial thickening on ultrasound with known breast cancer D and C, hysteroscopy The preop preparation, the intraop procedures and the postop recovery reviewed. The risks of bleeding, infection and other organ damage including bladder, bowel and uterine perforation reviewed, accepted and consented. 2. Diabetes better control per pcp 04/10/192002 <Electronically signed by Renetta Najera MD> Date Renetta Najera MD Cosigner Signature: Date (if applicable) CC: Renetta Najera MD; Renata Mei DO Signed Marcia Aaron Start: 03-08-2019 End: 03-08-2019 12 lead ECG Comments: See Note; NOTES: [facility] Cardiovascular Services [address] [place] [address] 12 Lead EKG 03/07/19 1606 MR#: [id number] Acct: [id number] Name: KAREN VILLALOBOS Rep #: [id number] : 1945 73 From: Papa Gamble MD Attending Dr: Renetta Najera MD Status: PRE SDC Ordering Dr: Renetta Najera MD Date: 03/07/19 [place] [facility] [place] Sex: F C Admitted: Test Reason : PRE OP Blood Pressure : / mmHG Vent. Rate : 083 BPM Atrial Rate : 083 BPM P-R Int : 150 ms QRS Dur : 080 ms QT Int : 358 ms P-R-T Axes : 050 058 073 degrees QTc Int : 420 ms Normal sinus rhythm Nonspecific ST abnormality Abnormal ECG Confirmed by MAVIS CLEMONS, PAPA ([id number]), web content editor QUEENIE GUERRA ([id number]) on 03/08/2019 1:22:42 PM Referred By: Renetta Najera Confirmed By:PAPA GAMBLE MD 03/08/19 1322 Date Papa Gamble MD CC: Renetta Najera MD; Renata Mei DO Signed Marcia Walker Start: 03-07-2019 Antibody screen Marcia chapin Comment on above: Surgery Date: Date of Last Transfusion (if within last 3 months) NHx of Preganancy in last 3 Months NoEver experience any problems with transfusion(s)? NHx of Transfusion in last 3 Months NReason for Type AND Screen/Red Cells: SURGERYTime: 0800SURGICAL PROCEDURE: HS D AND [facility] [id number] [place], [id number] Start: 12-12-2018 End: 12-12-2018 Operative Report Comments: See Note; NOTES: [facility] Medical Records Department [address] [address] Operative Report 12/05/18 1325 MR#: [id number] Acct: [id number] Name: KAREN VILLALOBOS Rep #: [id number] : 1945 73 From: Zee Rivas MD PCP: Renata Mei DO Status: [facility] Y Location: [facility] [place] Report of Operation Date of Procedure: 12/05/18 Pre-Operative Diagnosis: right breast cancer Post-Operative Diagnosis: same Surgery/Procedure Performed:: right axillary sentinel lymph node biopsy via blue and radioactive dye Description of Surgical Findings:: sentinel lymph node biopsy - 5 out of 5 lymph nodes negative for metastatic disease lime mixer: NOT,DEFINED Type of Anesthesia:: General Anesthesiologist: Mandy Tillman Specimen's removed: right axillary sentinel lymph kyle tissue Drains: none Estimated Blood Loss (mL): < 5 ml Fluids Replaced: 1000 ml RL Description of Procedure: After informed consent was given the patient was brought to the OR and placed in the supine position on the operating room table. Appropriate time out protocol was followed. She was then placed under general anesthesia. 2 cc of lymphozurin blue dye was then injected into the periareolar area and around the biopsy cavity with a 25 g needle. Gentle massage was then done for a few minutes. The patient's right chest and neck area was then prepped with a sterile surgical skin preparation and appropriate sterile surgical drapes were placed. A skin incision was made in the inferior portion of the hair bearing area of the right axilla. It was carried through to the subcutaneous tissues using electrocautery. Any hemorrhage was controlled with electrocautery. The Neoprobe device was then brought onto the surgical field via sterile technique. A 10 second count over tumor - thousands. 10 second count over the abdomen - 0. A Weitlaner retractor was used for increased operative exposure for the right axilla. The blue lymphatic vessels were then followed by blunt dissection until blue colored lymph kyle tissue was identified. These were from the surrounding tissue by blunt dissection and the vascular pedicles ligated with ligaclips. The lymph kyle tissue was then forwarded to pathology for frozen section. 10 second count over the lymph kyle tissue - 15. Pathology revealed that 5 lymph nodes were negative for metastatic disease. 10 second count in the axilla, after lymph kyle tissue was removed - 1. Hemostasis was carefully checked with electrocautery. Valeria was applied into the cavity. The deep fascia was reapproximated with 2-0 vicryl suture in an interrupted simple fashion. The skin edges were reapproximated with 3-0 vicryl suture in a horizontal mattress fashion and then further closed with running 4-0 monocryl in a subcuticular fashion. Cavilon and steristrips were then placed to reinforce the skin closure and proper sterile dressings were applied. Patient tolerated procedure well and was brought to Recovery Room in stable condition - Complications none noted - Admit VTE Documentation VTE Present on Admission: Yes VTE Mechan Device Prophylaxis: SCD's 12/12/18 1211 <Electronically signed by Zee Rivas MD> Date Zee Rivas MD CC: Renata Mei DO; Zee Rivas MD Signed Marcia Walker Start: 12-05-2018 End: 12-05-2018 Discharge Instruction Comments: See Note; NOTES: [facility] Medical Records Department [address] [place] [address] Instructions for Home/Discharge Instructions 12/05/18 1206 MR#: [id number] Acct: [id number] Name: KAREN VILLALOBOS Rep #: [id number] : 1945 73 From: Zee Rivas MD PCP: Renata Mei DO Status: REG [facility] [place] Discharge Diet: No Restrictions Discharge Activity: Return to Normal Activity, May not drive while taking narcotic pain medications. Lifting Restrictions: no lifting with right arm greater than 10 pounds until further notice Call your doctor if your incision/area has: Continuous Slow Oozing, Foul Smelling Discharge Call your doctor if you observe: Fever of 101 or Higher Additional Dressing/Incision Instructions:: Leave dressing in place. May get wet in shower. Do not soak - no tub baths/swimming Allergies/Adverse Reactions: Allergies latex Allergy (Verified 11/30/18 15:39) Rash Penicillins [PCN] Allergy (Verified 11/30/18 15:39) Rash Medications to take at Discharge Cholecalciferol (Vitamin D3) [Vitamin D3] 1,000 unit PO DAILY 10/03/18 Levothyroxine Sodium [Synthroid] 25 mcg PO DAILY 10/03/18 Liraglutide [Victoza] 0.6 mg SQ DAILY 10/03/18 Metformin HCl [Metformin HCl ER] 500 mg PO BID 10/03/18 [place]-3 Fatty Acids [Fish Oil] 500 mg PO DAILY 10/03/18 Hydrocodone Bitart/Apap 5-325 [[employer] 5MG-325MG] 1 tab PO Q8H PRN PRN 3 Days #10 tab 12/05/18 The following prescriptions were given: Hydrocodone Bitart/Apap 5-325 [[employer] 5MG-325MG] 1 tab PO Q8H PRN PRN 3 Days #10 tab PRN Reason: Pain Primary Care Physician: Renata Mei DO [Primary Care Provider] - Please Follow Up With: Zee Rivas MD - call When: to be seen in 7-10 days, please call for date and time, thank you 12/05/18 4538 <Electronically signed by Zee Rivas MD> Date Zee Rivas MD CC: Renata Mei DO Signed Marcia Walker Start: 12-05-2018 End: 12-05-2018 Lymph Node Injection Only Comments: See Note; NOTES: [facility] Imaging Services [address] [place] [address] Lymph Node Injection Only MR#: [id number] Acct: [id number] Name: KAREN VILLALOBOS Rep #: [id number] : 1945 F 73 From: Fernando Ford MD PCP: Renata Mei DO Status: [facility] Study: Lymph Node Injection Only Date of Exam: 12/05/18 Exam# [id number] Ordering Dr: Zee Rivas MD PROCEDURE: NUCLEAR MEDICINE Injection [place] Node - RIGHT breast(s). REASON FOR EXAM: Female, 73 years old. Right breast cancer. TECHNIQUE: [place] node localization using radionuclide methods of the RIGHT breast(s) was performed following subcutaneous administration of 1.1 mCi of of sulfur colloid Tc-99m. FINDINGS: 1.1 mCi of technetium labeled sulfur colloid was injected in 4 equal aliquots in the midportion of the right breast. NM/Lymph Node Injection Only IMPRESSION: Subcutaneous injection of 1.1 mCi of technetium labeled sulfur colloid for sentinel node imaging. Electronically Signed: Fernando Ford MD at 12:54 EST Tel [phone], Service support , CC: Renata Mei DO; Zee Rivas MD Tax Accounting Manager: Signed Zee Rivas Work Phone: Start: 10-13-2018 End: 10-13-2018 Operative Report Comments: See Note; NOTES: [facility] Medical Records Department [address] [place] [address] Operative Report 10/11/18 1037 MR#: [id number] Acct: [id number] Name: KAREN VILLALOBOS Rep #: [id number] : 1945 73 From: Zee Rivas MD PCP: Renata Mei DO Status: [facility] Y Location: [facility] [place] Report of Operation Date of Procedure: 10/10/18 Pre-Operative Diagnosis: left breast cancer (upper outer), neoplastic lesion of right breast of uncertain behavior Post-Operative Diagnosis: same Surgery/Procedure Performed:: left breast lumpectomy via wire localization, left axillary sentinel lymph node biopsy via blue and radioactive dye localization. 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 Appropriate time out protocol was followed. She was then placed in the prone position on the [place] stereotactic table. The patient s left breast was placed in the opening at the head of the table. A commissary manager compression mammogram was then obtained in the CC view. The marker clip that was previously placed was identified. Stereo pictures of the lesion were then taken for XYZ coordinates. The Kopans needle was then positioned where it would be entering into the patient s breast. The skin at this site was then cleansed with a surgical skin preparation. The skin and subcutaneous tissues at this site were then infiltrated with 1% xylocaine. The Kopans needle was then positioned into the patient s breast at the proper coordinates of depth. A commissary manager film was obtained which revealed the wire in proper position. The wire was then secured to the patient's skin. The right breast was then addressed next. The patient s right breast was placed in the opening at the head of the table. A commissary manager compression mammogram was then obtained. The marker clip that was previously placed was identified. Stereo pictures of the lesion were then taken for XYZ coordinates. The Kopans needle was then positioned where it would be entering into the patient s right breast. The skin at this site was then cleansed with a surgical skin preparation. The skin and subcutaneous tissues at this site were then infiltrated with 1% xylocaine. The Kopans needle was then positioned into the patient s breast at the proper coordinates of depth. A commissary manager film was obtained which revealed the wire in proper position. The patient was then placed in the supine position and the wires were taped into place with appropriate dressings. Bilateral mammograms were then taken in the CC and MLO view which would then be used in the OR The patient tolerated this portion of the procedure well and was brought to the AC awaiting surgery in the OR. The patient was then brought to the OR and placed in the supine position on the operating room table. Appropriate time out protocol was follwed. She was then placed under general anesthesia. 2 cc of lymphozurin blue dye diluted 50:50 was then injected into the periareolar area of the left breast and around the biopsy cavity with a 25 g needle. Gentle massage was then done for a few minutes. The patient's upper chest, both breasts, and neck area was then prepped with a sterile surgical skin preparation and appropriate sterile surgical drapes were placed. The cancer side (left) was approached first. The Neoprobe device was brought into the operative field. The 10 second reading over the tumor site was 938. The 10 second reading over the liver was 4. A skin incision was made in the inferior portion of the hair bearing area of the left axilla after injection of local anesthetic. It was carried through to the subcutaneous tissues using electrocautery. Any hemorrhage was controlled with electrocautery. A Weitlaner retractor was used for increased operative exposure. The blue lymphatic vessels were then followed by blunt dissection until blue colored lymph kyle tissue was identified. This tissue was from the surrounding tissue by blunt dissection and the vascular pedicles ligated with hemoclips. The 10 second reading of the lymph kyle tissue was 405. The lymph nodes were then forwarded to pathology for frozen section. Pathology revealed that 4 out of 4 lymph nodes were negative for cancer. The 10 second reading in the axilla was 13. The axillary cavity was carefully examined. No further suspicious lesion were noted. No further blue lymph tissue was noted. Valeria was applied in the axilla. The deep fascia was approximated with 2-0 vicryl suture. The subdermal tissue was reapproximated with 3-0 vicryl suture. The skin was reapproximated with running 4-0 monocryl in a subcuticular fashion. Dermibond was then placed to reinforce the skin closure. The left breast lumpectomy was then done. A wire had already been placed in the stereotactic biopsy room in the radiology department as described above. The skin and subcutaneous tissues at the site of the breast lesion was then infiltrated with local anesthetic. A transverse skin incision was then made with a 15 blade scalpel in the upper outer aspect of the left breast and carried down through to the subcutaneous tissues. Hemostasis was controlled with electrocautery. The wire was then palpated out and brought into the wound from outside. The breast tissue surrounding the wire was then carefully palpated out and from the surrounding tissues using electrocautery. The breast tissue, once from the breast, was then forwarded to the radiology department, where a specimen mammogram revealed that the marker clip was within the specimen. The breast tissue was then forwarded to pathology for analysis. Pathology review revealed that the closest margin was posterior with a measurement of 5 mm. The wound cavity was carefully examined. No further suspicious tissue was palpated or visualized. Hemostasis was carefully controlled with electrocautery. The subdermal tissues were then approximated with vicryl suture. The incision was then reapproximated close using running monocryl suture. Dermibond was then placed to reinforce the skin closure. The right breast was then approached next. A wire had already been placed in the stereotactic biopsy room in the radiology department as described above. The skin and subcutaneous tissues at the incision site was then infiltrated with local anesthetic. A transverse skin incision was then made with a 15 blade scalpel in the lower outer aspect of the right breast and carried down through to the subcutaneous tissues. Hemostasis was controlled with electrocautery. The wire was then palpated out. The breast tissue surrounding the wire was then carefully noted and from the surrounding tissues using electrocautery. The breast tissue was palpated and there was dense hard lesions noted. Careful attention was then done to dissect out this tissue with good margins. The breast tissue, once from the breast, was then forwarded to the radiology department, where a specimen mammogram revealed that the marker clip was within the specimen. The wound cavity was carefully examined. No further suspicious tissue was palpated or visualized. Hemostasis was carefully controlled with electrocautery. The subdermal tissues were then approximated with vicryl suture. The incision was then reapproximated close using running monocryl suture. Dermibond was then placed to reinforce the skin closure. The patient was then brought to the Recovery Room in stable condition. Grafts/Implants Used: titanium clips in left axilla - Complications none noted - Admit VTE Documentation VTE Present on Admission: Yes VTE Mechan Device Prophylaxis: SCD's 10/13/18 1610 <Electronically signed by Zee Rivas MD> Date Zee Rivas MD CC: Renata Mei DO; Zee Rivas MD Signed Marcia Walker Start: 10-10-2018 End: 10-10-2018 Discharge Instruction Comments: See Note; NOTES: [facility] Medical Records Department [address] [place] [address] Instructions for Home/Discharge Instructions 10/10/18 1239 MR#: [id number] Acct: [id number] Name: KAREN VILLALOBOS Rep #: [id number] : 1945 73 From: Zee Rivas MD PCP: Renata Mei DO Status: REG [facility] [place] Discharge Diet: No Restrictions Discharge Activity: Return to Normal Activity, May not drive while taking narcotic pain medications. Lifting Restrictions: no lifting greater than 10 pounds until further notice Call your doctor if your incision/area has: Continuous Slow Oozing, Foul Smelling Discharge Call your doctor if you observe: Fever of 101 or Higher Additional Dressing/Incision Instructions:: Leave dressings intact. May get wet in shower. Do not soak - no tub baths/swimming Additional Instructions: for pain control - can take round the clock acetominophen alternating with ibuprofen - take 600 mg ibuprofen then in 3 hours take 650 mg acetominphen then in 3 hours take 600 mg ibuprofen and so on Take oxyir for breakthrough pain and at night Allergies/Adverse Reactions: Allergies latex Allergy (Verified 10/10/18 10:08) Rash Penicillins [PCN] Allergy (Verified 10/10/18 10:08) Rash Medications to take at Discharge Cholecalciferol (Vitamin D3) [Vitamin D3] 1,000 unit PO DAILY 10/03/18 Levothyroxine Sodium [Synthroid] 25 mcg PO DAILY 10/03/18 Liraglutide [Victoza] 0.6 mg SQ DAILY 10/03/18 Metformin HCl [Metformin HCl ER] 500 mg PO BID 10/03/18 [place]-3 Fatty Acids [Fish Oil] 500 mg PO DAILY 10/03/18 Oxycodone [Oxyir] 5 mg PO Q8H PRN PRN 5 Days #15 tab 10/10/18 The following prescriptions were given: Oxycodone [Oxyir] 5 mg PO Q8H PRN PRN 5 Days #15 tab PRN Reason: Mod-Severe Pain (-09/07) Primary Care Physician: Renata Mei DO [Primary Care Provider] - Please Follow Up With: Zee Rivas MD - call When: to be seen on October 08 at 10:00, thank you 10/10/18 1194 <Electronically signed by Zee Rivas MD> Date Zee Rivas MD CC: Renata Mei DO Marcia Walker Start: 10-10-2018 End: 10-10-2018 Breast Biopsy Specimen Comments: See Note; NOTES: [facility] Imaging Services [address] [place] [address] Breast Biopsy Specimen MR#: [id number] Acct: [id number] Name: KAREN VILLALOBOS Rep #: [id number] : 1945 F 73 From: Fernando Ford MD PCP: Renata Mei DO Status: [facility] Study: Breast Biopsy Specimen Date of Exam: 10/10/18 Exam# [id number] Ordering Dr: Zee Rivas MD SURGICAL BREAST SPECIMEN RADIOGRAPH CLINICAL: Document presence of mass in biopsy specimen. FINDINGS: Specimen shows presence of mass. Electronically Signed: Fernando Ford MD at 15:46 EST Tel [phone], Service support , BI/Breast Biopsy Specimen CC: Renata Mei DO; Zee Rivas MD Tax Accounting Manager: Signed Zee Rivas Work Phone: Start: 10-10-2018 End: 10-10-2018 Breast Biopsy Specimen Comments: See Note; NOTES: [facility] Imaging Services [address] [place] [address] Breast Biopsy Specimen MR#: [id number] Acct: [id number] Name: KAREN VILLALOBOS Rep #: [id number] : 1945 F 73 From: Fernando Ford MD PCP: Renata Mei DO Status: [facility] Study: Breast Biopsy Specimen Date of Exam: 10/10/18 Exam# [id number] Ordering Dr: eZe Rivas MD SURGICAL BREAST SPECIMEN RADIOGRAPH CLINICAL: Document presence of mass in biopsy specimen. FINDINGS: Specimen shows presence of mass. Electronically Signed: Fernando Ford MD at 16:00 EST Tel [phone], Service support , BI/Breast Biopsy Specimen CC: Renata Mei DO; Zee Rivas MD Tax Accounting Manager: Signed Zee Rivas Work Phone: Start: 10-10-2018 End: 10-10-2018 Lymph Node Injection Only Comments: See Note; NOTES: [facility] Imaging Services [address] [facility] [place] [address] Lymph Node Injection Only MR#: [id number] Acct: [id number] Name: KAREN VILLALOBOS Rep #: [id number] : 1945 F 73 From: Fernando Ford MD PCP: Renata Mei DO Status: [facility] Study: Lymph Node Injection Only Date of Exam: 10/10/18 Exam# [id number] Ordering Dr: Zee Rivas MD PROCEDURE: NUCLEAR MEDICINE Injection [place] Node - LEFT breast(s). REASON FOR EXAM: Female, 73 years old. Left breast cancer. TECHNIQUE: Brighton node localization using radionuclide methods of the LEFT breast(s) was performed following subcutaneous administration of 1.1 mCi of of sulfur colloid Tc-99m. FINDINGS: 1.1 mCi of technetium sulfur colloid was injected subcutaneously in 4 equal aliquots in the upper outer quadrant of the left breast. NM/Lymph Node Injection Only IMPRESSION: Subcutaneous injection of 1.1 mCi of technetium sulfur colloid in the upper outer quadrant of the left breast. Electronically Signed: Fernando Ford MD at 10:36 EST Tel [phone], Service support , CC: Renata Mei DO; Zee Rivas MD Tax Accounting Manager: Signed Zee Rivas Work Phone: Start: 08-30-2018 End: 09-01-2018 Breast Limited Unilateral Comments: See Note; NOTES: [facility] Imaging Services [address] [place] [address] Breast Limited Unilateral MR#: [id number] Acct: [id number] Name: KAREN VILLALOBOS Rep #: [id number] : 1945 F 73 From: Fernando Ford MD PCP: Renata Mei DO Status: REG CLI Study: Breast Limited Unilateral Date of Exam: 08/30/18 Exam# [id number] Ordering Dr: Renata Mei DO STUDY: ULTRASOUND BREAST - RIGHT REASON FOR EXAM: Female, 73 years old. Abnormal screening mammogram. TECHNIQUE: Axial and longitudinal images of the RIGHT breast were performed with a high resolution ultrasound transducer. COMPARISON: Comparison is made with prior mammogram dated August 23, 2018. FINDINGS: RIGHT Breast: There is a 1 cm x 1.5 cm x 0.9 cm well-defined hypoechoic nodule at the 7:00 position of the breast at 2 cm from the nipple. A biopsy is recommended. There is also evidence of a 5 mm x 6 mm x 6 mm anechoic nodule at the 9:00 position the breast 1 cm from the nipple. This most likely demonstrates a small cyst. IMPRESSION: Suspicious 1 cm x 1.5 cm x 0.9 cm hypoechoic nodule at the 7:00 position breast at 2 cm from nipple. A biopsy recommended. ASSESSMENT CATEGORY: BIRADS Category 4: Suspicious - Biopsy Should Be Considered. A letter regarding these results will be sent to the patient by the facility within 30 days. Electronically Signed: Fernando Ford MD at 14:09 EDT Tel [phone], Service support , STUDY: ULTRASOUND BREAST - LEFT REASON FOR EXAM: Female, 73 years old. Abnormal screening mammogram. TECHNIQUE: Axial and longitudinal images of the LEFT breast were performed with a high resolution ultrasound transducer. COMPARISON: Comparison is made with prior mammogram dated August 23, 2018. FINDINGS: LEFT Breast: There is a 4 mm x 5 mm x 6 mm irregular shaped hypoechoic nodule with posterior acoustical shadowing at the 1:00 position of the breast at 4 cm from the nipple. A biopsy is recommended. US/Breast Limited Unilateral IMPRESSION: 4 mm x 5 mm x 6 mm irregular solid nodule with posterior acoustical shadowing at the 1:00 position of the breast at 4 cm from the nipple. A biopsy recommended. ASSESSMENT CATEGORY: BIRADS Category 4: Suspicious - Biopsy Should Be Considered. A letter regarding these results will be sent to the patient by the facility within 30 days. Electronically Signed: Fernando Ford MD at 14:10 EDT Tel [phone], Service support , CC: Renata Mei DO Tax Accounting Manager: Signed Renata Mei Work Phone: Start: 08-23-2018 End: 08-23-2018 SCREENING MAMM (CAD), BILAT Comments: See Note; NOTES: [facility] Imaging Services [address] [place] [address] SCREENING MAMM (CAD), BILAT MR#: [id number] Acct: [id number] Name: KAREN VILLALOBOS Rep #: [id number] : 1945 F 73 From: Fernando Ford MD PCP: Renata Mei DO Status: REG CLI Study: SCREENING MAMM (CAD), BILAT Date of Exam: 08/23/18 Exam# [id number] Ordering Dr: Renetta Najera MD MAMMOGRAPHY - BILATERAL SCREENING REASON FOR EXAM: Female, 73 years old. Routine annual screening examination. PERTINENT HISTORY: Sister with breast cancer. Aunt with breast cancer. TECHNIQUE: Digital bilateral breast shelia (3D mammographic acquisition) in the CC and MLO projections. 2-D mediolateral oblique (MLO) and craniocaudad (CC) views of both breasts were obtained. CAD: Full Field Digital Mammography with Computer Added Detection was performed. COMPARISON: Comparison is made with prior study dated February 22, 2017 and March 22, 2015. FINDINGS: Breast Composition: The breasts are heterogeneously dense, which may obscure small masses. There is a 7.6 mm x 8.4 mm nodular density in the upper outer quadrant of the left breast. This has increased in size. The margins at this time are slightly irregular and spiculated. There are 2 well-defined nodular densities in the central slightly lateral midportion of the right breast. One nodule measures 1.3 cm x 0.9 cm and the second nodule measures 1.1 cm x 1 cm. Correlation with ultrasound is recommended. No other significant abnormalities are identified. BI/SCREENING MAMM (CAD), BILAT IMPRESSION: Increased size of the nodular densities in both breasts as described. Correlation with ultrasound is recommended. ASSESSMENT CATEGORY: BIRADS Category 0: Incomplete. Need additional imaging evaluation. A letter regarding these results will be sent to the patient by the facility within 30 days. Approximately 10% of breast cancers are not detected by mammography. A normal mammogram should not delay biopsy of a clinically suspicious abnormality. [id number] Electronically Signed: Fernando Ford MD at 11:32 EDT Tel [phone], Service support , CC: Renetta Najera MD; Renata Mei DO Tax Accounting Manager: Signed Marcia Walker Start: 02-22-2017 End: 02-22-2017 SCREENING MAMM (CAD), BILAT Comments: See Note; NOTES: [facility] Imaging Services [address] [place] [address] Verdana 4d SCREENING MAMM (CAD), BILAT MR#: [id number] Acct: [id number] Name: KAREN VILLALOBOS Rep #: [id number] : 1945 F 71 From: Fernando Ford MD PCP: Renata Mei DO Status: REG CLI Study: SCREENING MAMM (CAD), BILAT Date of Exam: 02/22/17 Exam# [id number] Ordering Dr: Renetta Najera MD MAMMOGRAPHY - BILATERAL SCREENING REASON FOR EXAM: Female, 71 years old. Routine annual screening examination. PERTINENT HISTORY: Sister with breast cancer. Aunt with breast cancer. TECHNIQUE: Digital bilateral breast shelia (3D mammographic acquisition) in the CC and MLO projections. 2-D mediolateral oblique (MLO) and craniocaudad (CC) views of both breasts were obtained. CAD: Full Field Digital Mammography with Computer Added Detection was performed. COMPARISON: Comparison is made with prior study dated March 22, 2015 and February 27, 2014. FINDINGS: Breast Composition: There are scattered areas of fibroglandular density. There are no dominant masses or suspicious calcifications. Stable 5 mm x 4 mm well-defined nodule in the upper outer aspect of the left breast. No other significant abnormalities are identified. There has been no significant change since the prior study. HPBI/SCREENING MAMM (CAD), BILAT IMPRESSION: Stable bilateral screening mammogram. Yearly follow-up mammogram recommended. (A) ASSESSMENT CATEGORY: BIRADS Category 2: Benign. A letter regarding these results will be sent to the patient by the facility within 30 days. Approximately 10% of breast cancers are not detected by mammography. A normal mammogram should not delay biopsy of a clinically suspicious abnormality. [id number] Electronically Signed: Fernando Ford MD at 14:49 EDT Tel [phone], Service support [phone], CC: Renetta Najera MD; Renata Mei DO Tax Accounting Manager: Signed Marcia Walker Start: 03-22-2015 End: 10-01-2016 Bilat Scrn Digital AND CAD Comments: See Note; NOTES: [facility] Imaging Services [address] [place] [address] Breast Imaging Report MR#: [id number] Acct: [id number] Name: KAREN VILLALOBOS Rep #: [id number] : 1945 F 69 From: Fernando Ford MD PCP: Renata Mei DO Status: [facility] CLI Study: Bilat Scrn Digital AND CAD Date of Exam: 03/22/15 Exam# [id number] Ordering Dr: Renetta Najera MD MAMMOGRAPHY - BILATERAL SCREENING REASON FOR EXAM: Female, 69 years old. Routine annual screening examination. PERTINENT HISTORY: Sister with breast cancer. TECHNIQUE: Digital examination. Mediolateral oblique (MLO) and craniocaudad (CC) views of both breasts were obtained. CAD: CAD was performed on this study. COMPARISON: Comparison is made with prior study dated February 27, 2014 and September 27, 2012. FINDINGS: Breast Composition: There are scattered areas of fibroglandular density. There are no dominant masses or suspicious calcifications. Stable 5 mm x 4 mm well-defined nodular density in the upper outer aspect of the left breast. This may represent a small intramammary lymph node. No other significant abnormalities are identified. There has been no significant change since the prior study. IMPRESSION: Stable bilateral screening mammogram. Yearly follow-up recommended. (A) ASSESSMENT CATEGORY: BIRADS Category 2: Benign. A letter regarding these results will be sent to the patient by the facility within 30 days. Approximately 10% of breast cancers are not detected by mammography. A normal mammogram should not delay biopsy of a clinically suspicious abnormality. 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 TECHNICIAN Comment on above: 1977 H/O: section Section Bernardo Brizuela LPN Comment on above: 1977 H/O: section Section An yakov Levy LPN Comment on above: 1977 H/O: section Section Bernardo Sherwood LPN Comment on above: 1977 H/O: section Section Mo eze Brizuela LPN Comment on above: 1977 H/O: section Section Rubio Serna [facility] Comment on above: 1977 H/O: section Section An yakov Cam [place]TON Comment on above: 1977 H/O: section Section Robert Knox LPN Comment on above: 1977 H/O: section Latrice Levy LPN H/O: section Alexandra Alcazar [facility] Work Phone: H/O: section Flavia Coleman MA H/O: surgery Tonsillectomy Federica gutierrez BIOMETRICS TECHNICIAN H/O: surgery Tonsillectomy Haseeb Brizuela L PN H/O: surgery Tonsillectomy Latrice Slarb L PN H/O: surgery Tonsillectomy Haseeb Sherwood L PN H/O: surgery Tonsillectomy Haseeb Brizuela L PN H/O: surgery Tonsillectomy Ry Serna BIOMETRICS TECHNICIAN H/O: surgery Tonsillectomy Latrice Slarb L PN H/O: surgery Tonsillectomy Nellie Knox HAND STRIPER H/O: surgery Latrice Slarb LP N H/O: surgery Karen Alcazar ASSET MANAGEMENT ANALYST Work Phone: H/O: surgery Flavia Coleman MA Plan of Treatment Date Care Activity Detail Author Start: 05-31-2025 [facility] Start: 07-30-2024 Covid-19 Vaccine () Covid-19 Vaccine () [facility] Start: 07-30-2024 Influenza vaccination Influenza Vaccine (#1) [facility] Start: 11-29-2023 Advance Directive Discussion Advance Directive Discussion [facility] Start: 07-20-2023 Assay of thyroid stimulating hormone tsh [facility]; [facility] Work Phone: Start: 07-20-2023 Procedure Education [facility]; [facility] Work Phone: Start: 07-20-2023 Provider Instructions for Treatment [facility]; [facility] Work Phone: Start: 07-20-2023 Lipid panel [facility]; [facility] Work Phone: Start: 07-20-2023 Blood count complete auto&auto difrntl wbc [facility]; [facility] Work Phone: Start: 07-20-2023 Creatinine other source [facility]; [facility] Work Phone: Start: 07-20-2023 Comprehensive metabolic panel [facility]; [facility] Work Phone: Start: 02-02-2023 Patient Education [facility]; [facility] Work Phone: Start: 02-02-2023 Provider Instructions for Treatment [facility]; [facility] Work Phone: Start: 01-19-2023 Hemoglobin glycosylated a1c [facility]; [facility] Work Phone: Start: 01-19-2023 Procedure Education [facility]; [facility] Work Phone: Start: 01-19-2023 Provider Instructions for Treatment [facility]; [facility] Work Phone: Start: 01-05-2023 CBC, PLATELETS & MANUAL DIFF (43060) [facility]; [facility] Work Phone: Start: 01-05-2023 25 hydroxy includes fractions if performed [facility]; [facility] Work Phone: Start: 01-05-2023 Assay of thyroid stimulating hormone tsh [facility]; [facility] Work Phone: Start: 01-05-2023 Comprehensive metabolic panel [facility]; [facility] Work Phone: Start: 01-05-2023 Hemoglobin glycosylated a1c [facility]; [facility] Work Phone: Start: 01-05-2023 Lipid panel [facility]; [facility] Work Phone: Start: 09-22-2022 Procedure Education [facility]; [facility] Work Phone: Start: 09-22-2022 Provider Instructions for Treatment [facility]; [facility] Work Phone: Start: 08-12-2022 Procedure Education [facility]; [facility] Work Phone: Start: 08-12-2022 Provider Instructions for Treatment [facility]; [facility] Work Phone: Start: 07-07-2022 Procedure Education [facility]; [facility] Work Phone: Start: 05-28-2022 Comprehensive metabolic panel [facility]; [facility] Work Phone: Comment on above: prior to next ov Start: 05-28-2022 25 hydroxy includes fractions if performed [facility]; [facility] Work Phone: Comment on above: prior to next ov Start: 05-28-2022 Assay of thyroid stimulating hormone tsh [facility]; [facility] Work Phone: Comment on above: prior to next OV Start: 05-28-2022 Blood smear peripheral interp phys w/writ report [facility]; [facility] Work Phone: Comment on above: prior to next ov Start: 05-28-2022 Blood count manual cell count each [facility]; [facility] Work Phone: Comment on above: prior to next OV Start: 05-28-2022 Lipid panel [facility]; [facility] Work Phone: Comment on above: prior to next OV Start: 05-26-2022 Procedure Education [facility]; [facility] Work Phone: Start: 05-26-2022 Provider Instructions for Treatment [facility]; [facility] Work Phone: Start: 05-19-2022 MG Breast - bilateral Screening [facility] Work Phone: Start: 05-19-2022 Screening mammography SCRN MAMM (CAD)W/SHELIA BILAT [facility] Work Phone: Start: 02-27-2022 Procedure Education [facility]; [facility] Work Phone: Start: 02-27-2022 Provider Instructions for Treatment [facility]; [facility] Work Phone: Start: 11-18-2021 Procedure Education [facility]; [facility] Work Phone: Start: 11-18-2021 Provider Instructions for Treatment [facility]; [facility] Work Phone: Start: 11-18-2021 Hepatic function panel HEPATIC FUNCTION PANEL (64767) [facility]; [facility] Work Phone: Comment on above: January 2022 Start: 11-18-2021 Blood count complete automated CBC & PLATELETS (AUTO) (50747) [facility]; [facility] Work Phone: Comment on above: January 2022 Start: 08-13-2021 Procedure Education [facility]; [facility] Work Phone: Start: 08-13-2021 Provider Instructions for Treatment [facility]; [facility] Work Phone: Start: 03-31-2021 Blood count complete automated [facility]; [facility] Work Phone: Start: 03-19-2021 Procedure Education [facility]; [facility] Work Phone: Start: 03-19-2021 Provider Instructions for Treatment [facility]; [facility] Work Phone: Start: 03-19-2021 Hemoglobin glycosylated a1c HgA1C , Office (05623) [facility]; [facility] Work Phone: Start: 03-19-2021 Gluc bld gluc mntr dev cleared fda spec home use Blood Glucose , Office (96648) [facility]; [facility] Work Phone: Start: 03-13-2021 Assay of free thyroxine [facility]; [facility] Work Phone: Start: 03-13-2021 Free T4 [Mass/Vol] T4, FREE (THYROXINE) (94154) [facility]; [facility] Work Phone: Start: 03-13-2021 Assay of triiodothyronine t3 free [facility]; [facility] Work Phone: Start: 03-13-2021 Blood count complete auto&auto difrntl wbc [facility]; [facility] Work Phone: Start: 03-13-2021 Comprehensive metabolic panel [facility]; [facility] Work Phone: Start: 03-13-2021 Lipid panel LIPID PANEL (94128) [facility]; [facility] Work Phone: Start: 03-13-2021 Cobalamin (Vitamin B12) [Mass/Vol] VITAMIN B12 AND FOLATES (33588) [facility]; [facility] Work Phone: Start: 03-13-2021 25 hydroxy includes fractions if performed CALCIFEDIOL (08269) [facility]; [facility] Work Phone: Start: 03-13-2021 TSH Qn TSH (THYROID STIMULATING HORMONE) (76322) [facility]; [facility] Work Phone: Start: 02-24-2021 Procedure Education [facility]; [facility] Work Phone: Start: 08-09-2020 Iaadiadoo influenza [facility] Work Phone: Start: 2020 RSV Vaccine (1 - 1-dose 75+ series) RSV Vaccine (1 - 1-dose 75+ series) [facility] Start: 06-10-2020 Procedure Education [facility] Work Phone: Start: 06-10-2020 Provider Instructions for Treatment [facility] Work Phone: Start: 06-10-2020 Lipid panel [facility] Work Phone: Comment on above: Aug 12 Start: 06-10-2020 Cobalamin (Vitamin B12) [Mass/Vol] VITAMIN B12 AND FOLATES (90851) [facility] Work Phone: Start: 06-10-2020 25 hydroxy includes fractions if performed CALCIFEDIOL (52165) [facility] Work Phone: Start: 06-10-2020 HbA1c (Bld) [Mass fraction] HGB A1C (92118) [facility] Work Phone: Start: 05-14-2020 TSH Qn TSH (THYROID STIMULATING HORMONE) (56010) [facility] Work Phone: Start: 05-14-2020 Comprehensive metabolic panel Metabolic Panel, Comprehensive (90361) [facility] Work Phone: Start: 05-14-2020 Lipid panel LIPID PANEL (81792) [facility] Work Phone: Start: 02-23-2020 Procedure Education [facility] Work Phone: Start: 02-23-2020 Provider Instructions for Treatment [facility] Work Phone: Start: 02-21-2020 Procedure Education [facility] Work Phone: Start: 02-21-2020 Provider Instructions for Treatment [facility] Work Phone: Start: 02-16-2020 Procedure Education [facility] Work Phone: Start: 02-16-2020 Provider Instructions for Treatment [facility] Work Phone: Start: 02-05-2020 Assay of thyroid stimulating hormone tsh TSH (THYROID STIMULATING HORMONE) (55309) [facility] Work Phone: Start: 02-05-2020 TSH Qn TSH (THYROID STIMULATING HORMONE) (11919) [facility] Work Phone: Start: 12-14-2019 Patient Education [facility] Work Phone: Start: 12-14-2019 Procedure Education [facility] Work Phone: Start: 12-14-2019 Provider Instructions for Treatment [facility] Work Phone: Start: 11-06-2019 Procedure Education [facility] Work Phone: Start: 11-06-2019 Provider Instructions for Treatment [facility] Work Phone: Start: 10-31-2019 Lipid panel LIPID PANEL (53573) [facility] Work Phone: Start: 10-31-2019 Comprehensive metabolic panel Metabolic Panel, Comprehensive (59449) [facility] Work Phone: Start: 10-31-2019 Blood count complete auto&auto difrntl wbc CBC, Platelets & Auto Diff (55770) [facility] Work Phone: Start: 10-31-2019 TSH Qn TSH (95672) [facility] Work Phone: Start: 08-28-2019 Procedure Education [facility] Work Phone: Start: 08-28-2019 Provider Instructions for Treatment [facility] Work Phone: Start: 04-03-2019 Procedure Education [facility] Work Phone: Start: 04-03-2019 Gluc bld gluc mntr dev cleared fda spec home use [facility] Work Phone: Comment on above: 143 Start: 04-03-2019 Glucose [Mass/Vol] Blood Glucose , Office (48238) [facility] Work Phone: Comment on above: 143 Start: 04-03-2019 HbA1c (Bld) [Mass fraction] HgA1C , Office (23246) [facility] Work Phone: Comment on above: 6.8 Start: 04-03-2019 Hemoglobin glycosylated a1c [facility] Work Phone: Comment on above: 6.8 Start: 03-13-2019 Procedure Education [facility] Work Phone: Start: 03-13-2019 Provider Instructions for Treatment [facility] Work Phone: Start: 03-13-2019 Thyrotropin Qn TSH (THYROID STIMULATING HORMONE) (99510) [facility] Work Phone: Start: 02-27-2019 Assay of thyroid stimulating hormone tsh TSH (THYROID STIMULATING HORMONE) (17902) [facility] Work Phone: Start: 02-27-2019 Thyrotropin Qn TSH (THYROID STIMULATING HORMONE) (25207) [facility] Work Phone: Start: 01-19-2019 Procedure Education [facility] Work Phone: Start: 01-19-2019 Provider Instructions for Treatment [facility] Work Phone: Start: 10-05-2018 Procedure Education [facility] Work Phone: Start: 10-05-2018 Provider Instructions for Treatment [facility] Work Phone: Start: 10-05-2018 Thyrotropin Qn TSH (THYROID STIMULATING HORMONE) (97818) [facility] Work Phone: Comment on above: get done week of Nov 21 Start: 09-16-2018 Procedure Education [facility] Work Phone: Start: 06-27-2018 Procedure Education [facility] Work Phone: Start: 06-27-2018 Provider Instructions for Treatment [facility] Work Phone: Start: 06-27-2018 25 hydroxy includes fractions if performed CALCIFEDIOL (86988) [facility] Work Phone: Comment on above: August 2018 Start: 06-27-2018 Comprehensive metabolic panel Metabolic Panel, Comprehensive (99037) [facility] Work Phone: Comment on above: August 2018 Start: 06-27-2018 Alpha-fetoprotein serum [id number] M (42782) [facility] Work Phone: Comment on above: Aug 2018 Start: 06-27-2018 Thyrotropin Qn TSH (THYROID STIMULATING HORMONE) (33176) [facility] Work Phone: Comment on above: August 2018 Start: 06-14-2018 Procedure Education [facility] Work Phone: Start: 06-14-2018 Provider Instructions for Treatment [facility] Work Phone: Start: 05-02-2018 25 hydroxy includes fractions if performed CALCIFEDIOL (35104) [facility] Work Phone: Start: 05-02-2018 Cobalamin (Vitamin B12) mass conc VITAMIN B12 AND FOLATES (32763) [facility] Work Phone: Start: 05-02-2018 Cyanocobalamin vitamin b-12 VITAMIN B12 AND FOLATES (43915) [facility] Work Phone: Start: 05-02-2018 Assay of free thyroxine T4, FREE (THYROXINE) (27721) [facility] Work Phone: Start: 05-02-2018 T4 free mass conc T4, FREE (THYROXINE) (65000) [facility] Work Phone: Start: 05-02-2018 Assay of triiodothyronine t3 free T3, FREE (TRIDOTHYRONINE) (07516) [facility] Work Phone: Start: 05-02-2018 T3 free mass conc T3, FREE (TRIDOTHYRONINE) (09843) [facility] Work Phone: Start: 05-02-2018 Assay of thyroid stimulating hormone tsh TSH (45187) [facility] Work Phone: Start: 05-02-2018 Thyrotropin Qn TSH (09699) [facility] Work Phone: Start: 04-20-2018 Urinalysis qual/semiquant except immunoassays [facility] Work Phone: Start: 04-20-2018 Culture bacterial quanttative colony count urine [facility] Work Phone: Start: 04-20-2018 Urnls dip stick/tablet rgnt non-auto w/o micrscp [facility] Work Phone: Start: 04-20-2018 Assay of free thyroxine [facility] Work Phone: Start: 04-20-2018 T4 free mass conc T4, FREE (THYROXINE) (62650) [facility] Work Phone: Start: 04-20-2018 Assay of triiodothyronine t3 free [facility] Work Phone: Start: 04-20-2018 T3 free mass conc T3, FREE (TRIDOTHYRONINE) (32745) [facility] Work Phone: Start: 04-20-2018 Assay of thyroid stimulating hormone tsh [facility] Work Phone: Start: 04-20-2018 Thyrotropin Qn TSH (THYROID STIMULATING HORMONE) (15070) [facility] Work Phone: Start: 03-25-2018 Assay of thyroid stimulating hormone tsh [facility] Work Phone: Start: 03-25-2018 Thyrotropin Qn TSH (40957) [facility] Work Phone: Start: 03-25-2018 Assay of free thyroxine [facility] Work Phone: Start: 03-25-2018 T4 free mass conc T4, FREE (THYROXINE) (32213) [facility] Work Phone: Start: 03-25-2018 Assay of triiodothyronine t3 free [facility] Work Phone: Start: 03-25-2018 T3 free mass conc T3, FREE (TRIDOTHYRONINE) (44596) [facility] Work Phone: Start: 03-15-2018 Procedure Education [facility] Work Phone: Start: 12-06-2017 Procedure Education [facility] Work Phone: Start: 12-06-2017 Provider Instructions for Treatment [facility] Work Phone: Start: 11-30-2017 Patient Education [facility] Work Phone: Start: 11-30-2017 Provider Instructions for Treatment [facility] Work Phone: Start: 08-10-2017 Procedure Education [facility] Work Phone: Start: 08-10-2017 Provider Instructions for Treatment [facility] Work Phone: Start: 05-07-2017 Procedure Education [facility] Work Phone: Start: 02-09-2017 Lipid panel [facility] Work Phone: Comment on above: (repeat in Jul 2017 Start: 02-09-2017 Alpha-fetoprotein serum [facility] Work Phone: Comment on above: Repeat Jul 2017 Start: 02-09-2017 Comprehensive metabolic panel [facility] Work Phone: Comment on above: repeat in Jul 2017 Start: 02-09-2017 Provider Instructions for Treatment [facility] Work Phone: Start: 12-09-2016 Procedure Education [facility] Work Phone: Start: 12-09-2016 Provider Instructions for Treatment [facility] Work Phone: Start: 10-13-2016 Procedure Education [facility] Work Phone: Start: 09-30-2016 Procedure Education [facility] Work Phone: Start: 09-30-2016 Provider Instructions for Treatment [facility] Work Phone: Start: 09-30-2016 Assay of thyroid stimulating hormone tsh [facility] Work Phone: Start: 09-30-2016 Thyrotropin Qn TSH (THYROID STIMULATING HORMONE) (24864) [facility] Work Phone: Start: 09-11-2013 Assay of thyroid stimulating hormone tsh [facility] Work Phone: Start: 09-11-2013 Thyrotropin Qn TSH (THYROID STIMULATING HORMONE) (50894) [facility] Work Phone: Start: 08-28-2013 Lipid panel [facility] Work Phone: Comment on above: Draw cholesterol fasting Oct 09 Start: 08-28-2013 Assay of free thyroxine [facility] Work Phone: Comment on above: draw Oct 09 Start: 08-28-2013 T4 free mass conc T4, FREE (THYROXINE) (38322) [facility] Work Phone: Comment on above: draw Oct 09 Start: 08-28-2013 Assay of thyroid stimulating hormone tsh [facility] Work Phone: Comment on above: draw Oct 09 Start: 08-28-2013 Thyrotropin Qn TSH (93188) [facility] Work Phone: Comment on above: draw Oct 09 Start: 08-28-2013 Provider Instructions for Treatment [facility] Work Phone: Start: 08-15-2013 Provider Instructions for Treatment [facility] Work Phone: Start: 08-07-2013 Provider Instructions for Treatment [facility] Work Phone: Start: 08-07-2013 Fibrin dgradj products d-dimer quantitative [facility] Work Phone: Start: 08-07-2013 Blood count complete automated [facility] Work Phone: Start: 03-06-2013 Hemoglobin A1c/Hemoglobin.total mass fraction (Bld) HgA1C , Office (77771) [facility] Work Phone: Start: 03-06-2013 Hemoglobin glycosylated a1c [facility] Work Phone: Start: 03-06-2013 Provider Instructions for Treatment [facility] Work Phone: Start: 03-07-2012 Provider Instructions for Treatment [facility] Work Phone: Start: 2010 Pneumococcal Vaccine: 65+ (1 of 1 - PCV) Pneumococcal Vaccine: 65+ (1 of 1 - PCV) [facility] Start: 2010 Screening for osteoporosis Bone Density Screening [facility] Start: 10-18-2009 Provider Instructions for Treatment [facility] Work Phone: Start: 10-18-2009 Lipid panel [facility] Work Phone: Start: 10-18-2009 Glucose mass conc Glucose, PP/2 Hour (43292) [facility] Work Phone: Start: 10-18-2009 Glucose quantitative blood xcpt reagent strip [facility] Work Phone: Start: 10-18-2009 Blood occult fecal hgb deter ia qual feces 1-3 [facility] Work Phone: Comment on above: dispense Start: 1995 Shingrix Vaccine (1 of 2) Shingrix Vaccine (1 of 2) [facility] Start: 1990 Diabetes Screening Diabetes Screening [facility] Start: 1964 Urine microalbumin profile DTaP,Tdap,Td Vaccine (1 - Tdap) [facility] Start: 1963 Anxiety Screening Anxiety Screening [facility] Start: 1963 Depression Screening Depression Screening [facility] Work Phone: [facility] Work Phone: [facility] Work Phone: [facility] Work Phone: [facility] Work Phone[facility] Work Phone: [facility] Work Phone: [facility] Work Phone: [facility] Work Phone: [facility] Work Phone: [facility] Work Phone: [facility] Work Phone: [facility] Work Phone[facility] Work Phone: [facility] Work Phone: [facility] Work Phone: [facility] Work Phone: [facility] Work Phone: [facility]; [facility] Work Phone: [facility]; [facility] Work Phone: [facility]; [facility] Work Phone: Immunizations Immunization Date Immunization Notes Care Provider Aruna [facility] 05-31-2025 tetanus toxoid, reduced diphtheria toxoid, and acellular pertussis vaccine, adsorbed Karen Alcazar TELEGRAPH AND TELETYPE OPERATOR-C Work Phone: [facility] 02-14-2021 COVID-19 original vaccine, age 12+ yr, monovalent (PFIZER-BIONTECH - PURPLE TOP) Celena Kaba COMPUTER SYSTEMS ARCHITECT.ASSET MANAGEMENT ANALYST Work Phone: [facility] 01-27-2021 COVID-19 (Pfizer) Marcia Walker ASSET MANAGEMENT ANALYST Work Phone: [facility]; [facility] Work Phone: 01-24-2021 COVID-19 original vaccine, age 12+ yr, monovalent (PFIZER-BIONTECH - PURPLE TOP) Celena Kaba COMPUTER SYSTEMS ARCHITECT.ASSET MANAGEMENT ANALYST Work Phone: [facility] Work Phone: Payers Date Payer Category Payer Self-pay [id number] 2017 Medicare [id number] 2017 Medicare [id number] 2010 Medicare [id number] 2005 Unknown [id number] 1945 Unknown [id number] 2.16.84 [id number] Unknown Unknown [id number] 2.16.8 [id number] Unknown [id number] 2.16.8 [id number] Unknown [id number] 2.16.8 [id number] Unknown [id number] 2.16.8 [id number] Unknown [id number] 2.16.8 [id number] Unknown [id number] 2.16.8 [id number] Unknown [id number] 2.16.8 [id number] Unknown [id number] 2.16.8 [id number] Social History Date Type Detail Facility Start: 11-06-2019 End: 11-03-2020 Alcohol Use Never smoker [facility] Work Phone: Comment on above: Moderate alcohol use 2 qd Light Lives with spouse none Tobacco use: Never smoker. [facility] Work Phone: Comment on above: 03/07/12 Tobacco use: Tobacco use: [facility] Work Phone: Comment on above: 03/07/12 Start: 05-05-2019 [facility] Start: 03-07-2019 Non-smoker [facility] Start: 1945 Sex Assigned At Female W [facility] Start: 09-16-2018 End: 05-31-2025 Tobacco smoking status NHIS Never smoked tobacco [facility] Start: 09-16-2018 Tobacco use and exposure Smokeless tobacco non-user [facility] Start: 11-06-2019 Alcoholic beverage intake Current non-drinker of alcohol (finding) [facility] Start: 11-06-2019 End: 11-03-2020 Tobacco use panel [facility] Adult Depression Screening Assessment 2 [facility] Start: 1945 Sex assigned at Not on file C [facility] Medical Equipment Procedure Code Equipment Code Equipment Origin al Text Equipment Identifier Dates NovoFine 32G X 6 MM Miscellaneous 1 (one) Misc once daily for 0 days Quantity: 1 {Box} Refills: 5 Ordered: 15-Mar-2018 Marcia Walker CNP, CNP Carmen Start : 15-Mar-2018 Active Start: 03-15-2018 ReliOn Blood Glu cose Test In Vitro Strip 1 (one) Strip Strip test 3 x daily for 0 days Quantity: 90 {Strip} Refills: 3 Ordered: 30-Sep-2016 Slarb HAND STRIPER, Latrice Start : 30-Sep-2016 Active Start: 09-30-2016 [facility]iOn Confirm/m icro Test In Vitro Strip 1 (one) Strip Strip test three times daily for 0 days Quantity: 90 {Strip} Refills: 0 Ordered: 30-Sep-2016 Slarb SLOANE, Latrice Start : 30-Sep-2016 Active Start: 09-30-2016 NovoFine 32G X 6 MM Miscellaneous 1 (one) Misc once daily for 0 days Quantity: 1 {Box} Refills: 5 Ordered: 19-Jan-2019 Marcia Walker CNP, CNP [facility] Start : 19-Jan-2019 Active Start: 01-19-2019 ReliOn Blood Glu cose Test In Vitro Strip 1 (one) Strip Strip test 3 x daily for 0 days Quantity: 90 {Strip} Refills: 3 Ordered: 30-Sep-2016 Slarb HAND STRIPER, Latrice Start : 30-Sep-2016 Active Start: 09-30-2016 ReliOn Confirm/m icro Test In Vitro Strip 1 (one) Strip Strip test three times daily for 0 days Quantity: 90 {Strip} Refills: 0 Ordered: 30-Sep-2016 Slarb HAND STRIPER, Latrice Start : 30-Sep-2016 Active Start: 09-30-2016 NovoFine 32G X 6 MM Miscellaneous 1 (one) Misc once daily for 0 days Quantity: 1 {Box} Refills: 5 Ordered: 19-Jan-2019 Aaron BRICEÑO, Marcia Walker CNP, Carmen Start : 19-Jan-2019 Active Start: 01-19-2019 ReliOn Blood Glu cose Test In Vitro Strip 1 (one) Strip Strip test 3 x daily for 0 days Quantity: 90 {Strip} Refills: 3 Ordered: 30-Sep-2016 Slarb HAND STRIPER, Latrice Start : 30-Sep-2016 Active Start: 09-30-2016 ReliOn Confirm/m icro Test In Vitro Strip 1 (one) Strip Strip test three times daily for 0 days Quantity: 90 {Strip} Refills: 0 Ordered: 30-Sep-2016 Slarb HAND STRIPER, Latrice Start : 30-Sep-2016 Active Start: 09-30-2016 NovoFine 32G X 6 MM Miscellaneous 1 (one) Misc once daily for 0 days Quantity: 1 {Box} Refills: 5 Ordered: 19-Jan-2019 Aaron ASSET MANAGEMENT ANALYST, Carmen Aaron BRICEÑO, Marcia Orona Start : 19-Jan-2019 Active Start: 01-19-2019 ReliOn Blood Glu cose Test In Vitro Strip 1 (one) Strip Strip test 3 x daily for 0 days Quantity: 90 {Strip} Refills: 3 Ordered: 30-Sep-2016 Slarb HAND STRIPER, Latrice Start : 30-Sep-2016 Active Start: 09-30-2016 ReliOn Confirm/m icro Test In Vitro Strip 1 (one) Strip Strip test three times daily for 0 days Quantity: 90 {Strip} Refills: 0 Ordered: 30-Sep-2016 Slarb HAND STRIPER, Latrice Start : 30-Sep-2016 Active Start: 09-30-2016 NovoFine 32G X 6 MM Miscellaneous 1 (one) Misc once daily for 0 days Quantity: 1 {Box} Refills: 5 Ordered: 19-Jan-2019 Aaron BRICEÑO, Carmen Aaron BRICEÑO, Carmen Start : 19-Jan-2019 Active Start: 01-19-2019 ReliOn Blood Glu cose Test In Vitro Strip 1 (one) Strip Strip test 3 x daily for 0 days Quantity: 90 {Strip} Refills: 3 Ordered: 30-Sep-2016 Slarb SLOANE, Latrice Start : 30-Sep-2016 Active Start: 09-30-2016 ReliOn Confirm/m icro Test In Vitro Strip 1 (one) Strip Strip test three times daily for 0 days Quantity: 90 {Strip} Refills: 0 Ordered: 30-Sep-2016 Slarb HAND STRIPER, Latrice Start : 30-Sep-2016 Active Start: 09-30-2016 NovoFine 32G X 6 MM Miscellaneous 1 (one) Misc once daily for 0 days Quantity: 1 {Box} Refills: 5 Ordered: 19-Jan-2019 Aaron BRICEÑO Carmen Aaron BRICEÑO, Carmen Start : 19-Jan-2019 Active Start: 01-19-2019 ReliOn Blood Glu cose Test In Vitro Strip 1 (one) Strip Strip test 3 x daily for 0 days Quantity: 90 {Strip} Refills: 3 Ordered: 30-Sep-2016 Eleanorrb SLOANE Latrice Start : 30-Sep-2016 Active Start: 09-30-2016 ReliOn Confirm/m icro Test In Vitro Strip 1 (one) Strip Strip test three times daily for 0 days Quantity: 90 {Strip} Refills: 0 Ordered: 30-Sep-2016 Cam ANTON Latrice Start : 30-Sep-2016 Active Start: 09-30-2016 NovoFine 32G X 6 MM Miscellaneous 1 (one) Misc once daily for 0 days Quantity: 1 {Box} Refills: 5 Ordered: 19-Jan-2019 Aaron BRICEÑO, Carmen Aaron BRICEÑO, Carmen Start : 19-Jan-2019 Active Start: 01-19-2019 ReliOn Blood Glu cose Test In Vitro Strip 1 (one) Strip Strip test 3 x daily for 0 days Quantity: 90 {Strip} Refills: 3 Ordered: 30-Sep-2016 Slarb SLOANE Latrice Start : 30-Sep-2016 Active Start: 09-30-2016 ReliOn Confirm/m icro Test In Vitro Strip 1 (one) Strip Strip test three times daily for 0 days Quantity: 90 {Strip} Refills: 0 Ordered: 30-Sep-2016 Slarb SLOANE Latrice Start : 30-Sep-2016 Active Start: 09-30-2016 NovoFine 32G X 6 MM Miscellaneous 1 (one) Misc once daily for 0 days Quantity: 1 {Box} Refills: 5 Ordered: 19-Jan-2019 Aaron BRICEÑO, Carmen Aaron BRICEÑO, Carmen Start : 19-Jan-2019 Active Start: 01-19-2019 ReliOn Blood Glu cose Test In Vitro Strip 1 (one) Strip Strip test 3 x daily for 0 days Quantity: 90 {Strip} Refills: 3 Ordered: 30-Sep-2016 Slarb HAND STRIPER, Latrice Start : 30-Sep-2016 Active Start: 09-30-2016 ReliOn Confirm/m icro Test In Vitro Strip 1 (one) Strip Strip test three times daily for 0 days Quantity: 90 {Strip} Refills: 0 Ordered: 30-Sep-2016 Slarb HAND STRIPER, Latrice Start : 30-Sep-2016 Active Start: 09-30-2016 NovoFine 32G X 6 MM Miscellaneous 1 (one) Misc once daily for 0 days Quantity: 1 {Box} Refills: 5 Ordered: 19-Jan-2019 Aaron BRICEÑO, Carmen Aaron BRICEÑO, Marcia Orona Start : 19-Jan-2019 Active Start: 01-19-2019 ReliOn Blood Glu cose Test In Vitro Strip 1 (one) Strip Strip test 3 x daily for 0 days Quantity: 90 {Strip} Refills: 3 Ordered: 30-Sep-2016 Slarb HAND STRIPER, Latrice Start : 30-Sep-2016 Active Start: 09-30-2016 ReliOn Confirm/m icro Test In Vitro Strip 1 (one) Strip Strip test three times daily for 0 days Quantity: 90 {Strip} Refills: 0 Ordered: 30-Sep-2016 Slarb HAND STRIPER, Latrice Start : 30-Sep-2016 Active Start: 09-30-2016 NovoFine 32G X 6 MM Miscellaneous 1 (one) Misc once daily for 0 days Quantity: 1 {Box} Refills: 5 Ordered: 19-Jan-2019 Aaron BRICEÑO, Carmen Aaron BRICEÑO, Marcia Orona Start : 19-Jan-2019 Active Start: 01-19-2019 ReliOn Blood Glu cose Test In Vitro Strip 1 (one) Strip Strip test 3 x daily for 0 days Quantity: 90 {Strip} Refills: 3 Ordered: 30-Sep-2016 Slarb HAND STRIPER, Latrice Start : 30-Sep-2016 Active Start: 09-30-2016 ReliOn Confirm/m icro Test In Vitro Strip 1 (one) Strip Strip test three times daily for 0 days Quantity: 90 {Strip} Refills: 0 Ordered: 30-Sep-2016 Slarb HAND STRIPER, Latrice Start : 30-Sep-2016 Active Start: 09-30-2016 NovoFine 32G X 6 MM Miscellaneous 1 (one) Misc once daily for 0 days Quantity: 1 {Box} Refills: 5 Ordered: 19-Jan-2019 Cimeryla ASSET MANAGEMENT ANALYST, Carmen [facility] Start : 19-Jan-2019 Active Start: 01-19-2019 ReliOn Blood Glu cose Test In Vitro Strip 1 (one) Strip Strip test 3 x daily for 0 days Quantity: 90 {Strip} Refills: 3 Ordered: 30-Sep-2016 Slarb HAND STRIPER, Latrice Start : 30-Sep-2016 Active Start: 09-30-2016 ReliOn Confirm/m icro Test In Vitro Strip 1 (one) Strip Strip test three times daily for 0 days Quantity: 90 {Strip} Refills: 0 Ordered: 30-Sep-2016 Slarb HAND STRIPER, Latrice Start : 30-Sep-2016 Active Start: 09-30-2016 NovoFine 32G X 6 MM Miscellaneous 1 (one) Misc once daily for 0 days Quantity: 1 {Box} Refills: 5 Ordered: 19-Jan-2019 Dominiqueesa ASSET MANAGEMENT ANALYST, Carmen [facility]yl[facility], Carmen Start : 19-Jan-2019 Active Start: 01-19-2019 ReliOn Blood Glu cose Test In Vitro Strip 1 (one) Strip Strip test 3 x daily for 0 days Quantity: 90 {Strip} Refills: 3 Ordered: 30-Sep-2016 Slarb HAND STRIPER, Latrice Start : 30-Sep-2016 Active Start: 09-30-2016 ReliOn Confirm/m icro Test In Vitro Strip 1 (one) Strip Strip test three times daily for 0 days Quantity: 90 {Strip} Refills: 0 Ordered: 30-Sep-2016 Slarb HAND STRIPER, Latrice Start : 30-Sep-2016 Active Start: 09-30-2016 NovoFine 32G X 6 MM Miscellaneous 1 (one) Misc once daily for 0 days Quantity: 1 {Box} Refills: 5 Ordered: 19-Jan-2019 Aaron BRICEÑO, Carmen Aaron BRICEÑO, Marcia Orona Start : 19-Jan-2019 Active Start: 01-19-2019 ReliOn Blood Glu cose Test In Vitro Strip 1 (one) Strip Strip test 3 x daily for 0 days Quantity: 90 {Strip} Refills: 3 Ordered: 30-Sep-2016 Slarb HAND STRIPER, Latrice Start : 30-Sep-2016 Active Start: 09-30-2016 ReliOn Confirm/m icro Test In Vitro Strip 1 (one) Strip Strip test three times daily for 0 days Quantity: 90 {Strip} Refills: 0 Ordered: 30-Sep-2016 Slarb HAND STRIPER, Latrice Start : 30-Sep-2016 Active Start: 09-30-2016 NovoFine 32G X 6 MM Miscellaneous 1 (one) Misc once daily for 0 days Quantity: 1 {Box} Refills: 5 Ordered: 19-Jan-2019 Aaron NAVARRO Marcia Walker ASSET MANAGEMENT ANALYST, Marcia Orona Start : 19-Jan-2019 Active Start: 01-19-2019 ReliOn Blood Glu cose Test In Vitro Strip 1 (one) Strip Strip test 3 x daily for 0 days Quantity: 90 {Strip} Refills: 3 Ordered: 30-Sep-2016 Slarb SLOANE, Latrice Start : 30-Sep-2016 Active Start: 09-30-2016 ReliOn Confirm/m icro Test In Vitro Strip 1 (one) Strip Strip test three times daily for 0 days Quantity: 90 {Strip} Refills: 0 Ordered: 30-Sep-2016 Slarb HAND STRIPER, Latrice Start : 30-Sep-2016 Active Start: 09-30-2016 NovoFine 32G X 6 MM Miscellaneous 1 (one) Misc once daily for 0 days Quantity: 1 {Box} Refills: 5 Ordered: 19-Jan-2019 Aaron BRICEÑO, Carmen Aaron BRICEÑO, Marcia Orona Start : 19-Jan-2019 Active Start: 01-19-2019 ReliOn Blood Glu cose Test In Vitro Strip 1 (one) Strip Strip test 3 x daily for 0 days Quantity: 90 {Strip} Refills: 3 Ordered: 30-Sep-2016 Slarb HAND STRIPER, Latrice Start : 30-Sep-2016 Active Start: 09-30-2016 ReliOn Confirm/m icro Test In Vitro Strip 1 (one) Strip Strip test three times daily for 0 days Quantity: 90 {Strip} Refills: 0 Ordered: 30-Sep-2016 Isaias Levy LPNa Start : 30-Sep-2016 Active Start: 09-30-2016 NovoFine 32G X 6 MM Miscellaneous 1 (one) Misc once daily for 0 days Quantity: 1 {Box} Refills: 5 Ordered: 19-Jan-2019 Aaron BRICEÑO, Marcia Orona Dominiquemeryltarsha ASSET MANAGEMENT ANALYST, Carmen Start : 19-Jan-2019 Active Start: 01-19-2019 ReliOn Blood Glu cose Test In Vitro Strip 1 (one) Strip Strip test 3 x daily for 0 days Quantity: 90 {Strip} Refills: 3 Ordered: 30-Sep-2016 Isaias Levy LPNa Start : 30-Sep-2016 Active Start: 09-30-2016 ReliOn Confirm/m icro Test In Vitro Strip 1 (one) Strip Strip test three times daily for 0 days Quantity: 90 {Strip} Refills: 0 Ordered: 30-Sep-2016 Latrice Levy LPN Start : 30-Sep-2016 Active Start: 09-30-2016 NovoFine 32G X 6 MM Miscellaneous 1 (one) Misc once daily for 0 days Quantity: 1 {Box} Refills: 5 Ordered: 19-Jan-2019 Aaron BRICEÑO, Marcia Orona Dominiquemeryltarsha BRICEÑO, Carmen Start : 19-Jan-2019 Active Start: 01-19-2019 ReliOn Blood Glu cose Test In Vitro Strip 1 (one) Strip Strip test 3 x daily for 0 days Quantity: 90 {Strip} Refills: 3 Ordered: 30-Sep-2016 Latrice Levy LPN Start : 30-Sep-2016 Active Start: 09-30-2016 ReliOn Confirm/m icro Test In Vitro Strip 1 (one) Strip Strip test three times daily for 0 days Quantity: 90 {Strip} Refills: 0 Ordered: 30-Sep-2016 Latrice Levy LPN Start : 30-Sep-2016 Active Start: 09-30-2016 NovoFine 32G X 6 MM Miscellaneous 1 (one) Misc once daily for 0 days Quantity: 1 {Box} Refills: 5 Ordered: 19-Jan-2019 Aaron BRICEÑO Marcia Walker ASSET MANAGEMENT ANALYST, Marcia Orona Start : 19-Jan-2019 Active Start: 01-19-2019 ReliOn Blood Glu cose Test In Vitro Strip 1 (one) Strip Strip test 3 x daily for 0 days Quantity: 90 {Strip} Refills: 3 Ordered: 30-Sep-2016 Slarb HAND STRIPER, Latrice Start : 30-Sep-2016 Active Start: 09-30-2016 ReliOn Confirm/m icro Test In Vitro Strip 1 (one) Strip Strip test three times daily for 0 days Quantity: 90 {Strip} Refills: 0 Ordered: 30-Sep-2016 Slarb HAND STRIPER, Latrice Start : 30-Sep-2016 Active Start: 09-30-2016 NovoFine 32G X 6 MM Miscellaneous 1 (one) Misc once daily for 0 days Quantity: 1 {Box} Refills: 5 Ordered: 19-Jan-2019 Aaron NAVARRO, Marcia Walker ASSET MANAGEMENT ANALYST, Marcia Orona Start : 19-Jan-2019 Active Start: 01-19-2019 ReliOn Blood Glu cose Test In Vitro Strip 1 (one) Strip Strip test 3 x daily for 0 days Quantity: 90 {Strip} Refills: 3 Ordered: 30-Sep-2016 Slarb HAND STRIPER, Latrice Start : 30-Sep-2016 Active Start: 09-30-2016 ReliOn Confirm/m icro Test In Vitro Strip 1 (one) Strip Strip test three times daily for 0 days Quantity: 90 {Strip} Refills: 0 Ordered: 30-Sep-2016 Slarb HAND STRIPER, Latrice Start : 30-Sep-2016 Active Start: 09-30-2016 NovoFine 32G X 6 MM Miscellaneous 1 (one) Misc once daily for 0 days Quantity: 1 {Box} Refills: 5 Ordered: 19-Jan-2019 Aaron ASSET MANAGEMENT ANALYST, Marcia Walker [facility], Marcia Orona Start : 19-Jan-2019 Active Start: 01-19-2019 ReliOn Blood Glu cose Test In Vitro Strip 1 (one) Strip Strip test 3 x daily for 0 days Quantity: 90 {Strip} Refills: 3 Ordered: 30-Sep-2016 Slarb HAND STRIPER, Latrice Start : 30-Sep-2016 Active Start: 09-30-2016 ReliOn Confirm/m icro Test In Vitro Strip 1 (one) Strip Strip test three times daily for 0 days Quantity: 90 {Strip} Refills: 0 Ordered: 30-Sep-2016 Slarb HAND STRIPER, Latrice Start : 30-Sep-2016 Active Start: 09-30-2016 NovoFine 32G X 6 MM Miscellaneous 1 (one) Misc once daily for 0 days Quantity: 1 {Box} Refills: 5 Ordered: 19-Jan-2019 Reneatarsha BRICEÑO, Marcia Orona Dominiquemeryltarsha BRICEÑO, Carmen Start : 19-Jan-2019 Active Start: 01-19-2019 ReliOn Blood Glu cose Test In Vitro Strip 1 (one) Strip Strip test 3 x daily for 0 days Quantity: 90 {Strip} Refills: 3 Ordered: 30-Sep-2016 Slarb HAND STRIPER, Latrice Start : 30-Sep-2016 Active Start: 09-30-2016 ReliOn Confirm/m icro Test In Vitro Strip 1 (one) Strip Strip test three times daily for 0 days Quantity: 90 {Strip} Refills: 0 Ordered: 30-Sep-2016 Slarb HAND STRIPER, Latrice Start : 30-Sep-2016 Active Start: 09-30-2016 NovoFine 32G X 6 MM Miscellaneous 1 (one) Misc once daily for 0 days Quantity: 1 {Box} Refills: 5 Ordered: 19-Jan-2019 Dominiquemeryltarsha BRICEÑO Marcia Orona Dominiquemeryltarsha BRICEÑOMarcia Start : 19-Jan-2019 Active Start: 01-19-2019 ReliOn Blood Glu cose Test In Vitro Strip 1 (one) Strip Strip test 3 x daily for 0 days Quantity: 90 {Strip} Refills: 3 Ordered: 30-Sep-2016 Slarb HAND STRIPER, Latrice Start : 30-Sep-2016 Active Start: 09-30-2016 ReliOn Confirm/m icro Test In Vitro Strip 1 (one) Strip Strip test three times daily for 0 days Quantity: 90 {Strip} Refills: 0 Ordered: 30-Sep-2016 Slarb HAND STRIPER, Latrice Start : 30-Sep-2016 Active Start: 09-30-2016 NovoFine 32G X 6 MM Miscellaneous 1 (one) Misc once daily for 0 days Quantity: 1 {Box} Refills: 5 Ordered: 19-Jan-2019 Dominiquemeryltarsha BRICEÑO Carmen Aaron BRICEÑO, Marcia Orona Start : 19-Jan-2019 Active Start: 01-19-2019 ReliOn Blood Glu cose Test In Vitro Strip 1 (one) Strip Strip test 3 x daily for 0 days Quantity: 90 {Strip} Refills: 3 Ordered: 30-Sep-2016 Eleanorrb SLOANE, Latrice Start : 30-Sep-2016 Active Start: 09-30-2016 ReliOn Confirm/m icro Test In Vitro Strip 1 (one) Strip Strip test three times daily for 0 days Quantity: 90 {Strip} Refills: 0 Ordered: 30-Sep-2016 Slarb SLOANE Latrice Start : 30-Sep-2016 Active Start: 09-30-2016 NovoFine 32G X 6 MM Miscellaneous 1 (one) Misc once daily for 0 days Quantity: 1 {Box} Refills: 5 Ordered: 19-Jan-2019 Aaron BRICEÑO Carmen Aaron BRICEÑO, Carmen Start : 19-Jan-2019 Active Start: 01-19-2019 ReliOn Blood Glu cose Test In Vitro Strip 1 (one) Strip Strip test 3 x daily for 0 days Quantity: 90 {Strip} Refills: 3 Ordered: 30-Sep-2016 Cam ANTON Latrice Start : 30-Sep-2016 Active Start: 09-30-2016 ReliOn Confirm/m icro Test In Vitro Strip 1 (one) Strip Strip test three times daily for 0 days Quantity: 90 {Strip} Refills: 0 Ordered: 30-Sep-2016 Isaias Levy LPNa Start : 30-Sep-2016 Active Start: 09-30-2016 NovoFine 32G X 6 MM Miscellaneous 1 (one) Misc once daily for 0 days Quantity: 1 {Box} Refills: 5 Ordered: 19-Jan-2019 Aaron BRICEÑO Carmen Aaron BRICEÑO, Carmen Start : 19-Jan-2019 Active Start: 01-19-2019 ReliOn Blood Glu cose Test In Vitro Strip 1 (one) Strip Strip test 3 x daily for 0 days Quantity: 90 {Strip} Refills: 3 Ordered: 30-Sep-2016 Cam ANTON Latrice Start : 30-Sep-2016 Active Start: 09-30-2016 ReliOn Confirm/m icro Test In Vitro Strip 1 (one) Strip Strip test three times daily for 0 days Quantity: 90 {Strip} Refills: 0 Ordered: 30-Sep-2016 Slarb HAND STRIPER, Latrice Start : 30-Sep-2016 Active Start: 09-30-2016 NovoFine 32G X 6 MM Miscellaneous 1 (one) Misc once daily for 0 days Quantity: 1 {Box} Refills: 5 Ordered: 19-Jan-2019 Aaron BRICEÑO, Carmen Aaron BRICEÑO, Carmen Start : 19-Jan-2019 Active Start: 01-19-2019 ReliOn Blood Glu cose Test In Vitro Strip 1 (one) Strip Strip test 3 x daily for 0 days Quantity: 90 {Strip} Refills: 3 Ordered: 30-Sep-2016 Slarb HAND STRIPER, Latrice Start : 30-Sep-2016 Active Start: 09-30-2016 ReliOn Confirm/m icro Test In Vitro Strip 1 (one) Strip Strip test three times daily for 0 days Quantity: 90 {Strip} Refills: 0 Ordered: 30-Sep-2016 Slarb HAND STRIPER, Latrice Start : 30-Sep-2016 Active Start: 09-30-2016 NovoFine 32G X 6 MM Miscellaneous 1 (one) Misc once daily for 0 days Quantity: 1 {Box} Refills: 5 Ordered: 19-Jan-2019 Aaron ASSET MANAGEMENT ANALYST, Carmen Aaron BRICEÑO, Carmen Start : 19-Jan-2019 Active Start: 01-19-2019 ReliOn Blood Glu cose Test In Vitro Strip 1 (one) Strip Strip test 3 x daily for 0 days Quantity: 90 {Strip} Refills: 3 Ordered: 30-Sep-2016 Slarb HAND STRIPER, Latrice Start : 30-Sep-2016 Active Start: 09-30-2016 ReliOn Confirm/m icro Test In Vitro Strip 1 (one) Strip Strip test three times daily for 0 days Quantity: 90 {Strip} Refills: 0 Ordered: 30-Sep-2016 Slarb HAND STRIPER, Latrice Start : 30-Sep-2016 Active Start: 09-30-2016 NovoFine 32G X 6 MM Miscellaneous 1 (one) Misc once daily for 0 days Quantity: 1 {Box} Refills: 5 Ordered: 19-Jan-2019 Reneaa ASSET MANAGEMENT ANALYST, Carmen Reneaa ASSET MANAGEMENT ANALYST, Carmen Start : 19-Jan-2019 Active Start: 01-19-2019 ReliOn Blood Glu cose Test In Vitro Strip 1 (one) Strip Strip test 3 x daily for 0 days Quantity: 90 {Strip} Refills: 3 Ordered: 30-Sep-2016 Slarb HAND STRIPER, Latrice Start : 30-Sep-2016 Active Start: 09-30-2016 ReliOn Confirm/m icro Test In Vitro Strip 1 (one) Strip Strip test three times daily for 0 days Quantity: 90 {Strip} Refills: 0 Ordered: 30-Sep-2016 Slarb HAND STRIPER, Latrice Start : 30-Sep-2016 Active Start: 09-30-2016 NovoFine 32G X 6 MM Miscellaneous 1 (one) Misc once daily for 0 days Quantity: 1 {Box} Refills: 5 Ordered: 19-Jan-2019 Aaron BRICEÑO, Carmen Aaron ASSET MANAGEMENT ANALYST, Carmen Start : 19-Jan-2019 Active Start: 01-19-2019 ReliOn Blood Glu cose Test In Vitro Strip 1 (one) Strip Strip test 3 x daily for 0 days Quantity: 90 {Strip} Refills: 3 Ordered: 30-Sep-2016 Slarb HAND STRIPER, Latrice Start : 30-Sep-2016 Active Start: 09-30-2016 ReliOn Confirm/m icro Test In Vitro Strip 1 (one) Strip Strip test three times daily for 0 days Quantity: 90 {Strip} Refills: 0 Ordered: 30-Sep-2016 Slarb HAND STRIPER, Latrice Start : 30-Sep-2016 Active Start: 09-30-2016 NovoFine 32G X 6 MM Miscellaneous 1 (one) Misc once daily for 0 days Quantity: 1 {Box} Refills: 5 Ordered: 19-Jan-2019 Aaron BRICEÑO, Carmen [facility], Carmen Start : 19-Jan-2019 Active Start: 01-19-2019 ReliOn Blood Glu cose Test In Vitro Strip 1 (one) Strip Strip test 3 x daily for 0 days Quantity: 90 {Strip} Refills: 3 Ordered: 30-Sep-2016 Slarb HAND STRIPER, Latrice Start : 30-Sep-2016 Active Start: 09-30-2016 ReliOn Confirm/m icro Test In Vitro Strip 1 (one) Strip Strip test three times daily for 0 days Quantity: 90 {Strip} Refills: 0 Ordered: 30-Sep-2016 Slarb HAND STRIPER, Latrice Start : 30-Sep-2016 Active Start: 09-30-2016 NovoFine 32G X 6 MM Miscellaneous 1 (one) Misc once daily for 0 days Quantity: 1 {Box} Refills: 5 Ordered: 19-Jan-2019 Aaron BRICEÑO, Carmen Aaron BRICEÑO, Marcia Orona Start : 19-Jan-2019 Active Start: 01-19-2019 ReliOn Blood Glu cose Test In Vitro Strip 1 (one) Strip Strip test 3 x daily for 0 days Quantity: 90 {Strip} Refills: 3 Ordered: 30-Sep-2016 Slarb HAND STRIPER, Latrice Start : 30-Sep-2016 Active Start: 09-30-2016 ReliOn Confirm/m icro Test In Vitro Strip 1 (one) Strip Strip test three times daily for 0 days Quantity: 90 {Strip} Refills: 0 Ordered: 30-Sep-2016 Slarb HAND STRIPER, Latrice Start : 30-Sep-2016 Active Start: 09-30-2016 NovoFine 32G X 6 MM Miscellaneous 1 (one) Misc once daily for 0 days Quantity: 1 {Box} Refills: 5 Ordered: 19-Jan-2019 Aaron BRICEÑO, Marcia Mccauley CNP Start : 19-Jan-2019 Active Start: 01-19-2019 ReliOn Blood Glu cose Test In Vitro Strip 1 (one) Strip Strip test 3 x daily for 0 days Quantity: 90 {Strip} Refills: 3 Ordered: 30-Sep-2016 Slarb SLOANE Latrice Start : 30-Sep-2016 Active Start: 09-30-2016 ReliOn Confirm/m icro Test In Vitro Strip 1 (one) Strip Strip test three times daily for 0 days Quantity: 90 {Strip} Refills: 0 Ordered: 30-Sep-2016 Slarb SLOANE Lartice Start : 30-Sep-2016 Active Start: 09-30-2016 NovoFine 32G X 6 MM Miscellaneous 1 (one) Misc once daily for 0 days Quantity: 1 {Box} Refills: 5 Ordered: 19-Jan-2019 Aaron BRICEÑO, Carmen Aaron BRICEÑO, Marcia Orona Start : 19-Jan-2019 Active Start: 01-19-2019 ReliOn Blood Glu cose Test In Vitro Strip 1 (one) Strip Strip test 3 x daily for 0 days Quantity: 90 {Strip} Refills: 3 Ordered: 30-Sep-2016 Slarb HAND STRIPER, Latrice Start : 30-Sep-2016 Active Start: 09-30-2016 ReliOn Confirm/m icro Test In Vitro Strip 1 (one) Strip Strip test three times daily for 0 days Quantity: 90 {Strip} Refills: 0 Ordered: 30-Sep-2016 Slarb HAND STRIPER, Latrice Start : 30-Sep-2016 Active Start: 09-30-2016 NovoFine 32G X 6 MM Miscellaneous 1 (one) Misc once daily for 0 days Quantity: 1 {Box} Refills: 5 Ordered: 19-Jan-2019 Aaron ASSET MANAGEMENT ANALYST, Marcia Orona [facility], Carmen Start : 19-Jan-2019 Active Start: 01-19-2019 ReliOn Blood Glu cose Test In Vitro Strip 1 (one) Strip Strip test 3 x daily for 0 days Quantity: 90 {Strip} Refills: 3 Ordered: 30-Sep-2016 Slarb HAND STRIPER, Latrice Start : 30-Sep-2016 Active Start: 09-30-2016 ReliOn Confirm/m icro Test In Vitro Strip 1 (one) Strip Strip test three times daily for 0 days Quantity: 90 {Strip} Refills: 0 Ordered: 30-Sep-2016 Slarb SLOANE, Latrice Start : 30-Sep-2016 Active Start: 09-30-2016 NovoFine 32G X 6 MM Miscellaneous 1 (one) Misc once daily for 0 days Quantity: 1 {Box} Refills: 5 Ordered: 19-Jan-2019 Reneaa ASSET MANAGEMENT ANALYST, Marcia [facility]Henry [facility], Marcia Orona Start : 19-Jan-2019 Active Start: 01-19-2019 ReliOn Blood Glu cose Test In Vitro Strip 1 (one) Strip Strip test 3 x daily for 0 days Quantity: 90 {Strip} Refills: 3 Ordered: 30-Sep-2016 Slarb HAND STRIPER, Latrice Start : 30-Sep-2016 Active Start: 09-30-2016 ReliOn Confirm/m icro Test In Vitro Strip 1 (one) Strip Strip test three times daily for 0 days Quantity: 90 {Strip} Refills: 0 Ordered: 30-Sep-2016 Slarb HAND STRIPER, Latrice Start : 30-Sep-2016 Active Start: 09-30-2016 NovoFine 32G X 6 MM Miscellaneous 1 (one) Misc once daily for 0 days Quantity: 1 {Box} Refills: 5 Ordered: 19-Jan-2019 Aaron BRICEÑO, Carmen Aaron BRICEÑO, Carmen Start : 19-Jan-2019 Active Start: 01-19-2019 ReliOn Blood Glu cose Test In Vitro Strip 1 (one) Strip Strip test 3 x daily for 0 days Quantity: 90 {Strip} Refills: 3 Ordered: 30-Sep-2016 Slarb HAND STRIPER, Latrice Start : 30-Sep-2016 Active Start: 09-30-2016 ReliOn Confirm/m icro Test In Vitro Strip 1 (one) Strip Strip test three times daily for 0 days Quantity: 90 {Strip} Refills: 0 Ordered: 30-Sep-2016 Slarb HAND STRIPER, Latrice Start : 30-Sep-2016 Active Start: 09-30-2016 NovoFine 32G X 6 MM Miscellaneous 1 (one) Misc once daily for 0 days Quantity: 1 {Box} Refills: 5 Ordered: 19-Jan-2019 Dominiquedari NAVARRO, Marcia aWlker ASSET MANAGEMENT ANALYST, Carmen Start : 19-Jan-2019 Active Start: 01-19-2019 ReliOn Blood Glu cose Test In Vitro Strip 1 (one) Strip Strip test 3 x daily for 0 days Quantity: 90 {Strip} Refills: 3 Ordered: 30-Sep-2016 Slarb HAND STRIPER, Latrice Start : 30-Sep-2016 Active Start: 09-30-2016 ReliOn Confirm/m icro Test In Vitro Strip 1 (one) Strip Strip test three times daily for 0 days Quantity: 90 {Strip} Refills: 0 Ordered: 30-Sep-2016 Slarb HAND STRIPER, Latrice Start : 30-Sep-2016 Active Start: 09-30-2016 NovoFine 32G X 6 MM Miscellaneous 1 (one) Misc once daily for 0 days Quantity: 1 {Box} Refills: 5 Ordered: 19-Jan-2019 Aaron BRICEÑO, Carmen Aaron ASSET MANAGEMENT ANALYST, Carmen Start : 19-Jan-2019 Active Start: 01-19-2019 ReliOn Blood Glu cose Test In Vitro Strip 1 (one) Strip Strip test 3 x daily for 0 days Quantity: 90 {Strip} Refills: 3 Ordered: 30-Sep-2016 Slarb HAND STRIPER, Latrice Start : 30-Sep-2016 Active Start: 09-30-2016 ReliOn Confirm/m icro Test In Vitro Strip 1 (one) Strip Strip test three times daily for 0 days Quantity: 90 {Strip} Refills: 0 Ordered: 30-Sep-2016 Slarb SLOANE, Latrice Start : 30-Sep-2016 Active Start: 09-30-2016 NovoFine 32G X 6 MM Miscellaneous 1 (one) Misc once daily for 0 days Quantity: 1 {Box} Refills: 5 Ordered: 19-Jan-2019 Marcia Walker CNP, CNP, Marcia Orona Start : 19-Jan-2019 Active Start: 01-19-2019 ReliOn Blood Glu cose Test In Vitro Strip 1 (one) Strip Strip test 3 x daily for 0 days Quantity: 90 {Strip} Refills: 3 Ordered: 30-Sep-2016 Slarb SLOANE Latrice Start : 30-Sep-2016 Active Start: 09-30-2016 ReliOn Confirm/m icro Test In Vitro Strip 1 (one) Strip Strip test three times daily for 0 days Quantity: 90 {Strip} Refills: 0 Ordered: 30-Sep-2016 Slarb SLOANE Latrice Start : 30-Sep-2016 Active Start: 09-30-2016 NovoFine 32G X 6 MM Miscellaneous 1 (one) Misc once daily for 0 days Quantity: 1 {Box} Refills: 5 Ordered: 19-Jan-2019 Reneatarsha BRICEÑOMarcia ASSET MANAGEMENT ANALYST, Marcia Orona Start : 19-Jan-2019 Active Start: 01-19-2019 ReliOn Blood Glu cose Test In Vitro Strip 1 (one) Strip Strip test 3 x daily for 0 days Quantity: 90 {Strip} Refills: 3 Ordered: 30-Sep-2016 Slarb SLOANE Latrice Start : 30-Sep-2016 Active Start: 09-30-2016 ReliOn Confirm/m icro Test In Vitro Strip 1 (one) Strip Strip test three times daily for 0 days Quantity: 90 {Strip} Refills: 0 Ordered: 30-Sep-2016 Slarb SLOANE Latrice Start : 30-Sep-2016 Active Start: 09-30-2016 NovoFine 32G X 6 MM Miscellaneous 1 (one) Misc once daily for 0 days Quantity: 1 {Box} Refills: 5 Ordered: 19-Jan-2019 Aaron Marcia Moralez Start : 19-Jan-2019 Active Start: 01-19-2019 ReliOn Blood Glu cose Test In Vitro Strip 1 (one) Strip Strip test 3 x daily for 0 days Quantity: 90 {Strip} Refills: 3 Ordered: 30-Sep-2016 Slarb SLOANE, Latrice Start : 30-Sep-2016 Active Start: 09-30-2016 ReliOn Confirm/m icro Test In Vitro Strip 1 (one) Strip Strip test three times daily for 0 days Quantity: 90 {Strip} Refills: 0 Ordered: 30-Sep-2016 Slarb HAND STRIPER, Latrice Start : 30-Sep-2016 Active Start: 09-30-2016 NovoFine 32G X 6 MM Miscellaneous 1 (one) Misc once daily for 0 days Quantity: 1 {Box} Refills: 5 Ordered: 19-Jan-2019 Marcia Walker Mary Start : 19-Jan-2019 Active Start: 01-19-2019 ReliOn Blood Glu cose Test In Vitro Strip 1 (one) Strip Strip test 3 x daily for 0 days Quantity: 90 {Strip} Refills: 3 Ordered: 30-Sep-2016 Slarb SLOANE Latrice Start : 30-Sep-2016 Active Start: 09-30-2016 ReliOn Confirm/m icro Test In Vitro Strip 1 (one) Strip Strip test three times daily for 0 days Quantity: 90 {Strip} Refills: 0 Ordered: 30-Sep-2016 Eleanorrb Isaias ANTONa Start : 30-Sep-2016 Active Start: 09-30-2016 NovoFine 32G X 6 MM Miscellaneous 1 (one) Misc once daily for 0 days Quantity: 1 {Box} Refills: 5 Ordered: 19-Jan-2019 Marcia Walker Mary Start : 19-Jan-2019 Active Start: 01-19-2019 ReliOn Blood Glu cose Test In Vitro Strip 1 (one) Strip Strip test 3 x daily for 0 days Quantity: 90 {Strip} Refills: 3 Ordered: 30-Sep-2016 Slarb SLOANE, Latrice Start : 30-Sep-2016 Active Start: 09-30-2016 ReliOn Confirm/m icro Test In Vitro Strip 1 (one) Strip Strip test three times daily for 0 days Quantity: 90 {Strip} Refills: 0 Ordered: 30-Sep-2016 Slarb SLOANE, Latrice Start : 30-Sep-2016 Active Start: 09-30-2016 NovoFine 32G X 6 MM Miscellaneous 1 (one) Misc once daily for 0 days Quantity: 1 {Box} Refills: 5 Ordered: 19-Jan-2019 Marcia Walker Mary Start : 19-Jan-2019 Active Start: 01-19-2019 ReliOn Blood Glu cose Test In Vitro Strip 1 (one) Strip Strip test 3 x daily for 0 days Quantity: 90 {Strip} Refills: 3 Ordered: 30-Sep-2016 Latrice Levy LPN Start : 30-Sep-2016 Active Start: 09-30-2016 ReliOn Confirm/m icro Test In Vitro Strip 1 (one) Strip Strip test three times daily for 0 days Quantity: 90 {Strip} Refills: 0 Ordered: 30-Sep-2016 Latrice Levy LPN Start : 30-Sep-2016 Active Start: 09-30-2016 NovoFine 32G X 6 MM Miscellaneous 1 (one) Misc once daily for 0 days Quantity: 1 {Box} Refills: 5 Ordered: 19-Jan-2019 Marcia Walker Start : 19-Jan-2019 Active Start: 01-19-2019 ReliOn Blood Glu cose Test In Vitro Strip 1 (one) Strip Strip test 3 x daily for 0 days Quantity: 90 {Strip} Refills: 3 Ordered: 30-Sep-2016 Latrice Levy LPN Start : 30-Sep-2016 Active Start: 09-30-2016 ReliOn Confirm/m icro Test In Vitro Strip 1 (one) Strip Strip test three times daily for 0 days Quantity: 90 {Strip} Refills: 0 Ordered: 30-Sep-2016 Isaias Levy LPNa Start : 30-Sep-2016 Active Start: 09-30-2016 VALERIA 3GRM HEMO STAT ABS FDA Start: 10-10-2018 SUTURE,LIGA CLIP SM LT-100 FDA Start: 10-10-2018 SUTURE,LIGA CLIP SM LT-100 FDA Start: 10-10-2018 VALERIA 3GRM HEMO STAT ABS FDA Start: 12-05-2018 SUTURE,LIGA CLIP SM LT-100 FDA Start: 12-05-2018 SUTURE,LIGA CLIP SM LT-100 FDA Start: 12-05-2018 SUTURE,LIGA CLIP SM LT-100 FDA Start: 12-05-2018 SUTURE,LIGA CLIP SM LT-100 FDA Start: 12-05-2018 NovoFine 32G X 6 MM Miscellaneous 1 (one) Misc once daily for 0 days Quantity: 1 {Box} Refills: 5 Ordered: 19-Jan-2019 Marcia Walker Start : 19-Jan-2019 Active Start: 01-19-2019 ReliOn Blood Glu cose Test In Vitro Strip 1 (one) Strip Strip test 3 x daily for 0 days Quantity: 90 {Strip} Refills: 3 Ordered: 30-Sep-2016 Slarb HAND STRIPER, Latrice Start : 30-Sep-2016 Active Start: 09-30-2016 ReliOn Confirm/m icro Test In Vitro Strip 1 (one) Strip Strip test three times daily for 0 days Quantity: 90 {Strip} Refills: 0 Ordered: 30-Sep-2016 Slarb HAND STRIPER, Latrice Start : 30-Sep-2016 Active Start: 09-30-2016 NovoFine 32G X 6 MM Miscellaneous 1 (one) Misc once daily for 0 days Quantity: 1 {Box} Refills: 5 Ordered: 19-Jan-2019 Marcia Walker Start : 19-Jan-2019 Active Start: 01-19-2019 ReliOn Blood Glu cose Test In Vitro Strip 1 (one) Strip Strip test 3 x daily for 0 days Quantity: 90 {Strip} Refills: 3 Ordered: 30-Sep-2016 Slarb HAND STRIPER, Latrice Start : 30-Sep-2016 Active Start: 09-30-2016 ReliOn Confirm/m icro Test In Vitro Strip 1 (one) Strip Strip test three times daily for 0 days Quantity: 90 {Strip} Refills: 0 Ordered: 30-Sep-2016 Slarb HAND STRIPER, Latrice Start : 30-Sep-2016 Active Start: 09-30-2016 NovoFine 32G X 6 MM Miscellaneous 1 (one) Misc once daily for 0 days Quantity: 1 {Box} Refills: 5 Ordered: 19-Jan-2019 Marcia Walker Start : 19-Jan-2019 Active Start: 01-19-2019 ReliOn Blood Glu cose Test In Vitro Strip 1 (one) Strip Strip test 3 x daily for 0 days Quantity: 90 {Strip} Refills: 3 Ordered: 30-Sep-2016 Slarb HAND STRIPER, Latrice Start : 30-Sep-2016 Active Start: 09-30-2016 ReliOn Confirm/m icro Test In Vitro Strip 1 (one) Strip Strip test three times daily for 0 days Quantity: 90 {Strip} Refills: 0 Ordered: 30-Sep-2016 Slarb HAND STRIPER, Latrice Start : 30-Sep-2016 Active Start: 09-30-2016 ReliOn Blood Glu cose Test In Vitro Strip 1 (one) Strip Strip test 3 x daily for 0 days Quantity: 90 {Strip} Refills: 3 Ordered: 30-Sep-2016 Slarb HAND STRIPER, Latrice Start : 30-Sep-2016 Active Start: 09-30-2016 ReliOn Confirm/m icro Test In Vitro Strip 1 (one) Strip Strip test three times daily for 0 days Quantity: 90 {Strip} Refills: 0 Ordered: 30-Sep-2016 Slarb HAND STRIPER, Latrice Start : 30-Sep-2016 Active Start: 09-30-2016 Start: 09-30-2016 Start: 09-30-2016 Start: 09-30-2016 Start: 09-30-2016 Start: 09-30-2016 Start: 09-30-2016 Start: 09-30-2016 Start: 09-30-2016 Start: 09-30-2016 VALERIA 3GRM HEMO STAT ABS FDA Start: 10-10-2018 SUTURE,LIGA CLIP SM LT-100 FDA Start: 10-10-2018 SUTURE,LIGA CLIP SM LT-100 FDA Start: 10-10-2018 VALERIA 3GRM HEMO STAT ABS FDA Start: 12-05-2018 SUTURE,LIGA CLIP SM LT-100 FDA Start: 12-05-2018 SUTURE,LIGA CLIP SM LT-100 FDA Start: 12-05-2018 SUTURE,LIGA CLIP SM LT-100 FDA Start: 12-05-2018 SUTURE,LIGA CLIP SM LT-100 FDA Start: 12-05-2018 Start: 09-30-2016 Start: 09-30-2016 Start: 09-30-2016 VALERIA 3GRM HEMO STAT ABS FDA Start: 10-10-2018 SUTURE,LIGA CLIP SM LT-100 FDA Start: 10-10-2018 SUTURE,LIGA CLIP SM LT-100 FDA Start: 10-10-2018 VALERIA 3GRM HEMO STAT ABS FDA Start: 12-05-2018 SUTURE,LIGA CLIP SM LT-100 FDA Start: 12-05-2018 SUTURE,LIGA CLIP SM LT-100 FDA Start: 12-05-2018 SUTURE,LIGA CLIP SM LT-100 FDA Start: 12-05-2018 SUTURE,LIGA CLIP SM LT-100 FDA Start: 12-05-2018 Clinical Notes 11-01-2024 to 05-31-2025 Telephone Encounter - Shavonne Zuluaga SLOANE - 11/01/2024 9:10 AM ESTTelephone Encounter - Shavonne Zuluaga SLOANE - 11/01/2024 9:10 AM EST Note Date & Type Note Facility 05-31-2025 Radiology Diagnostic study note [facility] Imaging Services [address] [place], [place] [id number] Spine Cervical without Contras MR#: [id number] Acct: [id number] Name: KAREN VILLALOBOS Rep #: [id number] : 1945 F 79 From: Maureen aMrie MD PCP: ADRIANO Burgess Status: REG E R Study:Spine Cervical without Contras Date of Exam: 05/31/25 Exam# [id number] Ordering Dr: Kelvin Butt DO EXAM: CT Cervical Spine Without Intravenous Contrast CLINICAL INDICATION: INJURY/PAIN TECHNIQUE: Axial computed tomography images of the cervical spine without intravenous contrast. This CT exam was performed using one or more of the following dose reduction techniques: automated exposure control, adjustment of the mA and/or kV according to patient size, and/or use of iterative reconstruction technique. COMPARISON: CT Cervical Spine dated 09/25/2024 FINDINGS: VERTEBRAE: Mild endplate degenerative change and disc disease of C4-C7. Moderate facet arthropathy of C3-C6. No acute fracture. DISCS/SPINAL CANAL/NEURAL FORAMINA: See above. SOFT TISSUES: Unremarkable. CT/Spine Cervical without Contras IMPRESSION: 1. No acute fracture. 2. Degenerative changes as above. Reading Location: [facility] CC: TELEGRAPH AND TELETYPE OPERATOR-C Karen Alcazar; Dr. Kelvin Butt, ~ Tax Accounting Manager: Signed [facility] 05-31-2025 Radiology Diagnostic study note [facility] Imaging Services [address] [place], [place] [address] Sinus/Facial Bone MR#: [id number] Acct: [id number] Name: KAREN VILLALOBOS Rep #: [id number] : 1945 F 79 From: Sebastian Gomez MD PCP: ADRIANO Burgess Status: REG E R Study:Sinus/Facial Bone Date of Exam: Exam# [id number] Ordering Dr: Kelvin Butt DO PROCEDURE: SINUS/FACIAL BONE 05/31/2025 REASON FOR EXAM: TRAUMA TECHNIQUE: SINUS/FACIAL BONE Coronal and Sagittal reconstruction series were provided. One or more dose reduction techniques were used (e.g., Automated exposure control, adjustment of the mA and/or kV according to patient size, use of iterative reconstruction technique). RADIATION DOSE SUMMARY: DLP: 1889.44 mGycm COMPARISON: None FINDINGS: There is minimal mucosal thickening in the floor of the left maxillary sinus. The remainder of the paranasal sinuses are clear. There is soft tissue edema at the left orbit and maxillary region with no underlying fracture. The orbital structures appear intact. There is no soft tissue air or visible radiopaque foreign body. Dentalhardware is noted. Vascular calcifications are visible. CT/Sinus/Facial Bone IMPRESSION: There is minimal mucosal thickening in the floor of the left maxillary sinus. There is soft tissue edema at the left orbit and maxillary region with no underlying fracture. Reading Location: [facility] CC: TELEGRAPH AND TELETYPE OPERATOR-C Karen Alcazar; DO Anthony Keith Tax Accounting Manager: Signed [facility] 05-31-2025 Radiology Diagnostic study note [facility] Imaging Services [address] [place], [place] [address] Shoulder min 2 Views MR#: [id number] Acct: [id number] Name: KAREN VILLALOBOS Rep #: [id number] : 1945 F 79 From: Sebastian Gomez MD PCP: ADRIANO Burgess Status: REG E R Study:Shoulder min 2 Views Date of Exam: 05/31/25 Exam# [id number] Ordering Dr: Kelvin Butt DO PROCEDURE: SHOULDER MIN 2 VIEWS 05/31/2025 REASON FOR EXAM: INJURY/PAIN TECHNIQUE: SHOULDER four views COMPARISON: None FINDINGS: There is a comminuted impacted fracture of the left humeral head and neck. There is no dislocation. The AC joint is aligned. The scapula appears intact. Osteopenia is noted. Surgical clips are noted in the axillary region. RAD/Shoulder min 2 Views IMPRESSION: There is a comminuted impacted fracture of the left humeral head and neck. Critical results were discussed with Dr. Butt by Dr. Gomez at the time of dictation. Reading Location: [facility] CC: ADRIANO Alcazar; Dr. Kelvin Butt DO ~ Tax Accounting Manager: Signed [facility] 05-31-2025 Radiology Diagnostic study note [facility] Imaging Services [address] [place] [id number] Brain/Head without Contrast MR#: [id number] Acct: [id number] Name: KAREN VILLALOBOS Rep #: [id number] : 1945 F 79 From: Sebastian Gomez MD PCP: ADRIANO Burgess Status: REG E R Study:Brain/Head without Contrast Date of Exa m: 05/31/25 Exam# [id number] Ordering Dr: Kelvin Butt DO EXAM: NONCONTRAST CT SCAN OF THE HEAD CLINICAL HISTORY: Trauma COMPARISON: September 25, 2024 TECHNIQUE: Serial axial series through the head were obtained without contrast. 2-D coronaland sagittal reformats were then obtained. FINDINGS: Brain: There is no acute large territorial infarct, intracranial hemorrhage, midline shift or mass effect. There are atherosclerotic vascular calcifications involving the bilateral carotid siphons.The sella and pineal gland regions appear unremarkable. There is low-density in the deep white matter in the right and left with chronic ischemic change, similar to the prior. There is no evidence of cerebellar tonsillar herniation. Ventricles: There is no acute hydrocephalus. Basilar cisterns are patent. Paranasal sinuses: Well-aerated Mastoid air cells: Well-aerated. Calvarium: The bony calvarium is intact. There is subcutaneous edema and soft tissue swelling in the left periorbital and maxillary region with no underlying fracture. Orbits: The bilateral globes are symmetric, without retrobulbar compressive masslesion or hemorrhage. CT/Brain/Head without Contrast IMPRESSION: There is low-density in the deep white matter in the right and left with chronicischemic change, similar to the prior. There is subcutaneous edema and soft tissue swelling in the left periorbital andmaxillary region with no underlying fracture. No acute intracranial pathology. Reading Location: [facility] CC: ADRIANO Alcazar; Dr. Kelvin Butt, DO ~ Tax Accounting Manager: Signed [facility] 11-01-2024 Telephone encounter Note A copy of this note was faxed to Karen Alcazar CNP. Shavonne Zuluaga LPN [facility] 11-01-2024 Miscellaneous Notes A copy of this note was faxed to Karen Alcazar CNP. Shavonne Zuluaga LPN Received a fax from Karen Alcazar CNP Re: pt. having elevated CEA with h/o breast cancer. Pt. last seen here in 2019 and refused further follow ups here. Please inform Karen that pt. needs to be worked up for elevated CEA. If +path obtained and needs consult here she will be scheduled with a physician. Thank you. Celena Kaba APRN.ASSET MANAGEMENT ANALYST documented in this encounter [facility] 11-01-2024 Telephone encounter Note Received a fax from Karen Alcazar CNP Re: pt. having elevated CEA with h/o breast cancer. Pt. last seen here in 2019 and refused further follow ups here. Please inform Karen that pt. needs to be worked up for elevated CEA. If +path obtained and needs consult here she will be scheduled with a physician. Thank you. Celena Kaba APRN.ASSET MANAGEMENT ANALYST [facility] Work Phone: Evaluation note No assessment inform ation available [facility] Work Phone: Instructions Name Patient Instructions Indication:Acute sinusitis Start:25-Feb-20 Instruction Type:Provider Instructions for Treatment How to Access Health Information Online using Patient Portal and 3rd [employer] Apps Indication:Acute sinusitis Start:25-Feb-20 Instruction Type:Patient Education How to access health information online Indication:Nonsmoker Start:10-Jun-20 Instruction Type:Patient Education How to access health information online - Detail Indication:Nonsmoker Start:10-Jun-20 Instruction Type:Patient Education Patient Instructions Indication:BMI 34.0-34.9,adult Start:10-Jun-20 Instruction Type:Provider Instructions for Treatment How to access health information online Indication:Nonsmoker Start:23-Feb-20 Instruction Type:Patient Education How to access health information online - Detail Indication:Nonsmoker Start:23-Feb-20 Instruction Type:Patient Education Patient Instructions Indication:Nonsmoker Start:23-Feb-20 Instruction Type:Provider Instructions for Treatment How to access health information online Indication:Nonsmoker Start:21-Feb-20 Instruction Type:Patient Education How to access health information online - Detail Indication:Nonsmoker Start:21-Feb-20 Instruction Type:Patient Education Patient Instructions Indication:Nonsmoker Start:21-Feb-20 Instruction Type:Provider Instructions for Treatment How to access health information online Indication:Nonsmoker Start:16-Feb-20 Instruction Type:Patient Education How to access health information online - Detail Indication:Nonsmoker Start:16-Feb-20 Instruction Type:Patient Education Patient Instructions Indication:BMI 34.0-34.9,adult Start:16-Feb-20 Instruction Type:Provider Instructions for Treatment How to access health information online Indication:Nonsmoker Start:14-Dec-19 Instruction Type:Patient Education How to access health information online - Detail Indication:Nonsmoker Start:14-Dec-19 Instruction Type:Patient Education Patient Instructions Indication:Cough Start:14-Dec-19 Instruction Type:Provider Instructions for Treatment How to access health information online Indication:Diabetes mellitus type II, controlled, with no complications (Renamed from Controlled type 2 diabetes mellitus without complication) Start: Instruction Type:Patient Education How to access health information online - Detail Indication:Diabetes mellitus type II, controlled, with no complications (Renamed from Controlled type 2 diabetes mellitus without complication) Start: Instruction Type:Patient Education Patient Instructions Indication:Vitamin D deficiency Start: Instruction Type:Provider Instructions for Treatment How to access health information online Indication:Diabetes mellitus type II, controlled, with no complications (Renamed from Controlled type 2 diabetes mellitus without complication) Start:28-Aug-20 Instruction Type:Patient Education How to access health information online - Detail Indication:Diabetes mellitus type II, controlled, with no complications (Renamed from Controlled type 2 diabetes mellitus without complication) Start:28-Aug-20 Instruction Type:Patient Education Patient Instructions Indication:BMI 33.0-33.9,adult Start:28-Aug-20 Instruction Type:Provider Instructions for Treatment How to access health information online Indication:Nonsmoker Start: Instruction Type:Patient Education How to access health information online - Detail Indication:Nonsmoker Start: Instruction Type:Patient Education Patient Instructions Indication:Nonsmoker Start: Instruction Type:Provider Instructions for Treatment How to access health information online Indication:Diabetes mellitus type 2, uncontrolled (Renamed from Uncontrolled type 2 diabetes mellitus) Start:13-Mar-20 Instruction Type:Patient Education How to access health information online - Detail Indication:Diabetes mellitus type 2, uncontrolled (Renamed from Uncontrolled type 2 diabetes mellitus) Start:13-Mar-20 Instruction Type:Patient Education Patient Instructions Indication:BMI 35.0-35.9,adult Start:13-Mar-20 Instruction Type:Provider Instructions for Treatment How to access health information online Indication:Diabetes mellitus type II, controlled, with no complications (Renamed from Controlled type 2 diabetes mellitus without complication) Start:19-Jan-20 Instruction Type:Patient Education How to access health information online - Detail Indication:Diabetes mellitus type II, controlled, with no complications (Renamed from Controlled type 2 diabetes mellitus without complication) Start:19-Jan-20 Instruction Type:Patient Education Patient Instructions Indication:Hypothyroid Start:19-Jan-20 Instruction Type:Provider Instructions for Treatment How to access health information online Indication:Nonsmoker Start: Instruction Type:Patient Education How to access health information online - Detail Indication:Nonsmoker Start: Instruction Type:Patient Education Patient Instructions Indication:Atypical lobular hyperplasia of right breast Start: Instruction Type:Provider Instructions for Treatment How to access health information online Indication:BMI 35.0-35.9,adult Start:16-Sep-20 Instruction Type:Patient Education How to access health information online - Detail Indication:BMI 35.0-35.9,adult Start:16-Sep-20 Instruction Type:Patient Education Patient Instructions Indication:BMI 35.0-35.9,adult Start:16-Sep-20 Instruction Type:Provider Instructions for Treatment How to access health information online Indication:Nonsmoker Start:27-Jun-20 Instruction Type:Patient Education How to access health information online - Detail Indication:Nonsmoker Start:27-Jun-20 Instruction Type:Patient Education Patient Instructions Indication:Elevated liver enzymes Start:27-Jun-20 Instruction Type:Provider Instructions for Treatment How to access health information online Indication:Diabetes mellitus type II, controlled, with no complications (Renamed from Controlled type 2 diabetes mellitus without complication) Start:14-Jun-20 Instruction Type:Patient Education How to access health information online - Detail Indication:Diabetes mellitus type II, controlled, with no complications (Renamed from Controlled type 2 diabetes mellitus without complication) Start:14-Jun-20 Instruction Type:Patient Education Patient Instructions Indication:Diabetes mellitus type II, controlled, with no complications (Renamed from Controlled type 2 diabetes mellitus without complication) Start:14-Jun-20 Instruction Type:Provider Instructions for Treatment How to access health information online Indication:Diabetes mellitus type II, controlled, with no complications (Renamed from Controlled type 2 diabetes mellitus without complication) Start:15-Mar-20 Instruction Type:Patient Education How to access health information online - Detail Indication:Diabetes mellitus type II, controlled, with no complications (Renamed from Controlled type 2 diabetes mellitus without complication) Start:15-Mar-20 Instruction Type:Patient Education Patient Instructions Indication:Diabetes mellitus type II, controlled, with no complications (Renamed from Controlled type 2 diabetes mellitus without complication) Start:15-Mar-20 18 Instruction Type:Provider Instructions for Treatment How to access health information online Indication:Diabetes mellitus type II, controlled, with no complications (Renamed from Controlled type 2 diabetes mellitus without complication) Start: Instruction Type:Patient Education How to access health information online - Detail Indication:Diabetes mellitus type II, controlled, with no complications (Renamed from Controlled type 2 diabetes mellitus without complication) Start: 8 Instruction Type:Patient Education Patient Instructions Indication:Diabetes mellitus type II, controlled, with no complications (Renamed from Controlled type 2 diabetes mellitus without complication) Start: 8 Instruction Type:Provider Instructions for Treatment How to access health information online Indication:Nonsmoker Start: Instruction Type:Patient Education How to access health information online - Detail Indication:Nonsmoker Start: Instruction Type:Patient Education Patient Instructions Indication:Sinusitis, bacterial Start: Instruction Type:Provider Instructions for Treatment How to access health information online Indication:Diabetes mellitus type II, controlled, with no complications (Renamed from Controlled type 2 diabetes mellitus without complication) Start:10-Aug-20 Instruction Type:Patient Education How to access health information online - Detail Indication:Diabetes mellitus type II, controlled, with no complications (Renamed from Controlled type 2 diabetes mellitus without complication) Start:10-Aug-20 Instruction Type:Patient Education Patient Instructions Indication:Diabetes mellitus type II, controlled, with no complications (Renamed from Controlled type 2 diabetes mellitus without complication) Start:10-Aug-20 Instruction Type:Provider Instructions for Treatment How to access health information online Indication:Uncontrolled type 2 diabetes mellitus without complication, without long-term current use of insulin Start: Instruction Type:Patient Education How to access health information online - Detail Indication:Uncontrolled type 2 diabetes mellitus without complication, without long-term current use of insulin Start: Instruction Type:Patient Education Patient Instructions Indication:Uncontrolled type 2 diabetes mellitus without complication, without long-term current use of insulin Start: Instruction Type:Provider Instructions for Treatment Patient Instructions Indication:Nonsmoker Start:10-Feb-20 Instruction Type:Provider Instructions for Treatment How to access health information online Indication:Uncontrolled type 2 diabetes mellitus without complication, without long-term current use of insulin Start:09-Dec-19 Instruction Type:Patient Education How to access health information online - Detail Indication:Uncontrolled type 2 diabetes mellitus without complication, without long-term current use of insulin Start:09-Dec-19 Instruction Type:Patient Education Patient Instructions Indication:Uncontrolled type 2 diabetes mellitus without complication, without long-term current use of insulin Start:09-Dec-19 Instruction Type:Provider Instructions for Treatment DISCONTINUED - LIPID PANEL (02710) Indication:Hypercholesteremia Start:13-Oct-20 Instruction Type:Patient Education DISCONTINUED - Glucose, PP/2 Hour (79883) Indication:Family history of diabetes mellitus Start:13-Oct-20 Instruction Type:Patient Education DISCONTINUED - Hemoglobin Glyclated (HGB A1C) (42695) Indication:Family history of diabetes mellitus Start:13-Oct-20 Instruction Type:Patient Education How to access health information online Indication:Uncontrolled type 2 diabetes mellitus without complication, without long-term current use of insulin Start:13-Oct-20 Instruction Type:Patient Education How to access health information online - Detail Indication:Uncontrolled type 2 diabetes mellitus without complication, without long-term current use of insulin Start:13-Oct-20 Instruction Type:Patient Education Patient Instructions Indication:Uncontrolled type 2 diabetes mellitus without complication, without long-term current use of insulin Start:13-Oct-20 Instruction Type:Provider Instructions for Treatment Patient Instructions Indication:Nonsmoker Start: Instruction Type:Provider Instructions for Treatment How to access health information online Indication:Uncontrolled type 2 diabetes mellitus without complication, without long-term current use of insulin Start: Instruction Type:Patient Education How to access health information online - Detail Indication:Uncontrolled type 2 diabetes mellitus without complication, without long-term current use of insulin Start: Instruction Type:Patient Education Patient Instructions Indication:Hypothyroid Start:28-Aug-20 Instruction Type:Provider Instructions for Treatment Patient Instructions Indication:Family history of diabetes mellitus Start: 3 Instruction Type:Provider Instructions for Treatment [facility]; [facility] Work Phone: Instructions* Name Dates Details Patient Instructions Indication:Nonsmoker Start:19-Mar-2021 Instruction Type:Provider Instructions for Treatment How to Access Health Informa tion Online using Patient Portal and [employer] Apps Indication:Nonsmoker Start:19-Mar-2021 Instruction Type:Patient Education Patient Instructions Indication:Acute sinusitis Start:24-Feb-2021 Instruction Type:Provider Instructions for Treatment How to Access Health Informa tion Online using Patient Portal and [employer]rd [employer] Apps Indication:Acute sinusitis Start:24-Feb-2021 Instruction Type:Patient Education How to access health informa tion online Indication:Nonsmoker Start:10-Jun-2020 Instruction Type:Patient Education How to access health informa tion online - Detail Indication:Nonsmoker Start:10-Jun-2020 Instruction Type:Patient Education Patient Instructions Indication:BMI 34.0-34.9,adult Start:10-Jun-2020 Instruction Type:Provider Instructions for Treatment How to access health informa tion online Indication:Nonsmoker Start:23-Feb-2020 Instruction Type:Patient Education How to access health informa tion online - Detail Indication:Nonsmoker Start:23-Feb-2020 Instruction Type:Patient Education Patient Instructions Indication:Nonsmoker Start:23-Feb-2020 Instruction Type:Provider Instructions for Treatment How to access health informa tion online Indication:Nonsmoker Start:21-Feb-2020 Instruction Type:Patient Education How to access health informa tion online - Detail Indication:Nonsmoker Start:21-Feb-2020 Instruction Type:Patient Education Patient Instructions Indication:Nonsmoker Start:21-Feb-2020 Instruction Type:Provider Instructions for Treatment How to access health informa tion online Indication:Nonsmoker Start:16-Feb-2020 Instruction Type:Patient Education How to access health informa tion online - Detail Indication:Nonsmoker Start:16-Feb-2020 Instruction Type:Patient Education Patient Instructions Indication:BMI 34.0-34.9,adult Start:16-Feb-2020 Instruction Type:Provider Instructions for Treatment How to access health informa tion online Indication:Nonsmoker Start:14-Dec-2019 Instruction Type:Patient Education How to access health informa tion online - Detail Indication:Nonsmoker Start:14-Dec-2019 Instruction Type:Patient Education Patient Instructions Indication:Cough Start:14-Dec-2019 Instruction Type:Provider Instructions for Treatment How to access health informa tion online Indication:Diabetes mellitus type II, controlled, with no complications (Renamed from Controlled type 2 diabetes mellitus without complication) Start:06-Nov-2019 Instruction Type:Patient Education How to access health informa tion online - Detail Indication:Diabetes mellitus type II, controlled, with no complications (Renamed from Controlled type 2 diabetes mellitus without complication) Start:06-Nov-2019 Instruction Type:Patient Education Patient Instructions Indication:Vitamin D deficiency Start:06-Nov-2019 Instruction Type:Provider Instructions for Treatment How to access health informa tion online Indication:Diabetes mellitus type II, controlled, with no complications (Renamed from Controlled type 2 diabetes mellitus without complication) Start:28-Aug-2019 Instruction Type:Patient Education How to access health informa tion online - Detail Indication:Diabetes mellitus type II, controlled, with no complications (Renamed from Controlled type 2 diabetes mellitus without complication) Start:28-Aug-2019 Instruction Type:Patient Education Patient Instructions Indication:BMI 33.0-33.9,adult Start:28-Aug-2019 Instruction Type:Provider Instructions for Treatment How to access health informa tion online Indication:Nonsmoker Start:03-Apr-2019 Instruction Type:Patient Education How to access health informa tion online - Detail Indication:Nonsmoker Start:03-Apr-2019 Instruction Type:Patient Education Patient Instructions Indication:Nonsmoker Start:03-Apr-2019 Instruction Type:Provider Instructions for Treatment How to access health informa tion online Indication:Diabetes mellitus type 2, uncontrolled (Renamed from Uncontrolled type 2 diabetes mellitus) Start:13-Mar-2019 Instruction Type:Patient Education How to access health informa tion online - Detail Indication:Diabetes mellitus type 2, uncontrolled (Renamed from Uncontrolled type 2 diabetes mellitus) Start:13-Mar-2019 Instruction Type:Patient Education Patient Instructions Indication:BMI 35.0-35.9,adult Start:13-Mar-2019 Instruction Type:Provider Instructions for Treatment How to access health informa tion online Indication:Diabetes mellitus type II, controlled, with no complications (Renamed from Controlled type 2 diabetes mellitus without complication) Start:19-Jan-2019 Instruction Type:Patient Education How to access health informa tion online - Detail Indication:Diabetes mellitus type II, controlled, with no complications (Renamed from Controlled type 2 diabetes mellitus without complication) Start:19-Jan-2019 Instruction Type:Patient Education Patient Instructions Indication:Hypothyroid Start:19-Jan-2019 Instruction Type:Provider Instructions for Treatment How to access health informa tion online Indication:Nonsmoker Start:05-Oct-2018 Instruction Type:Patient Education How to access health informa tion online - Detail Indication:Nonsmoker Start:05-Oct-2018 Instruction Type:Patient Education Patient Instructions Indication:Atypical lobular hyperplasia of right breast Start:05-Oct-2018 Instruction Type:Provider Instructions for Treatment How to access health informa tion online Indication:BMI 35.0-35.9,adult Start:16-Sep-2018 Instruction Type:Patient Education How to access health informa tion online - Detail Indication:BMI 35.0-35.9,adult Start:16-Sep-2018 Instruction Type:Patient Education Patient Instructions Indication:BMI 35.0-35.9,adult Start:16-Sep-2018 Instruction Type:Provider Instructions for Treatment How to access health informa tion online Indication:Nonsmoker Start:27-Jun-2018 Instruction Type:Patient Education How to access health informa tion online - Detail Indication:Nonsmoker Start:27-Jun-2018 Instruction Type:Patient Education Patient Instructions Indication:Elevated liver enzymes Start:27-Jun-2018 Instruction Type:Provider Instructions for Treatment How to access health informa tion online Indication:Diabetes mellitus type II, controlled, with no complications (Renamed from Controlled type 2 diabetes mellitus without complication) Start:14-Jun-2018 Instruction Type:Patient Education How to access health informa tion online - Detail Indication:Diabetes mellitus type II, controlled, with no complications (Renamed from Controlled type 2 diabetes mellitus without complication) Start:14-Jun-2018 Instruction Type:Patient Education Patient Instructions Indication:Diabetes mellitus type II, controlled, with no complications (Renamed from Controlled type 2 diabetes mellitus without complication) Start:14-Jun-2018 Instruction Type:Provider Instructions for Treatment How to access health informa tion online Indication:Diabetes mellitus type II, controlled, with no complications (Renamed from Controlled type 2 diabetes mellitus without complication) Start:15-Mar-2018 Instruction Type:Patient Education How to access health informa tion online - Detail Indication:Diabetes mellitus type II, controlled, with no complications (Renamed from Controlled type 2 diabetes mellitus without complication) Start:15-Mar-2018 Instruction Type:Patient Education Patient Instructions Indication:Diabetes mellitus type II, controlled, with no complications (Renamed from Controlled type 2 diabetes mellitus without complication) Start:15-Mar-2018 Instruction Type:Provider Instructions for Treatment How to access health informa tion online Indication:Diabetes mellitus type II, controlled, with no complications (Renamed from Controlled type 2 diabetes mellitus without complication) Start:06-Dec-2017 Instruction Type:Patient Education How to access health informa tion online - Detail Indication:Diabetes mellitus type II, controlled, with no complications (Renamed from Controlled type 2 diabetes mellitus without complication) Start:06-Dec-2017 Instruction Type:Patient Education Patient Instructions Indication:Diabetes mellitus type II, controlled, with no complications (Renamed from Controlled type 2 diabetes mellitus without complication) Start:06-Dec-2017 Instruction Type:Provider Instructions for Treatment How to access health informa tion online Indication:Nonsmoker Start:30-Nov-2017 Instruction Type:Patient Education How to access health informa tion online - Detail Indication:Nonsmoker Start:30-Nov-2017 Instruction Type:Patient Education Patient Instructions Indication:Sinusitis, bacterial Start:30-Nov-2017 Instruction Type:Provider Instructions for Treatment How to access health informa tion online Indication:Diabetes mellitus type II, controlled, with no complications (Renamed from Controlled type 2 diabetes mellitus without complication) Start:10-Aug-2017 Instruction Type:Patient Education How to access health informa tion online - Detail Indication:Diabetes mellitus type II, controlled, with no complications (Renamed from Controlled type 2 diabetes mellitus without complication) Start:10-Aug-2017 Instruction Type:Patient Education Patient Instructions Indication:Diabetes mellitus type II, controlled, with no complications (Renamed from Controlled type 2 diabetes mellitus without complication) Start:10-Aug-2017 Instruction Type:Provider Instructions for Treatment How to access health informa tion online Indication:Uncontrolled type 2 diabetes mellitus without complication, without long-term current use of insulin Start:07-May-2017 Instruction Type:Patient Education How to access health informa tion online - Detail Indication:Uncontrolled type 2 diabetes mellitus without complication, without long-term current use of insulin Start:07-May-2017 Instruction Type:Patient Education Patient Instructions Indication:Uncontrolled type 2 diabetes mellitus without complication, without long-term current use of insulin Start:07-May-2017 Instruction Type:Provider Instructions for Treatment Patient Instructions Indication:Nonsmoker Start:09-Feb-2017 Instruction Type:Provider Instructions for Treatment How to access health informa tion online Indication:Uncontrolled type 2 diabetes mellitus without complication, without long-term current use of insulin Start:09-Dec-2016 Instruction Type:Patient Education How to access health informa tion online - Detail Indication:Uncontrolled type 2 diabetes mellitus without complication, without long-term current use of insulin Start:09-Dec-2016 Instruction Type:Patient Education Patient Instructions Indication:Uncontrolled type 2 diabetes mellitus without complication, without long-term current use of insulin Start:09-Dec-2016 Instruction Type:Provider Instructions for Treatment DISCONTINUED - LIPID PANEL ( [id number]) Indication:Hypercholesteremia Start:13-Oct-2016 Instruction Type:Patient Education DISCONTINUED - Glucose, PP/2 Hour (44679) Indication:Family history of diabetes mellitus Start:13-Oct-2016 Instruction Type:Patient Education DISCONTINUED - Hemoglobin Glyclated (HGB A1C) ([id number]) Indication:Family history of diabetes mellitus Start:13-Oct-2016 Instruction Type:Patient Education How to access health informa tion online Indication:Uncontrolled type 2 diabetes mellitus without complication, without long-term current use of insulin Start:13-Oct-2016 Instruction Type:Patient Education How to access health informa tion online - Detail Indication:Uncontrolled type 2 diabetes mellitus without complication, without long-term current use of insulin Start:13-Oct-2016 Instruction Type:Patient Education Patient Instructions Indication:Uncontrolled type 2 diabetes mellitus without complication, without long-term current use of insulin Start:13-Oct-2016 Instruction Type:Provider Instructions for Treatment Patient Instructions Indication:Nonsmoker Start:30-Sep-2016 Instruction Type:Provider Instructions for Treatment How to access health informa tion online Indication:Uncontrolled type 2 diabetes mellitus without complication, without long-term current use of insulin Start:30-Sep-2016 Instruction Type:Patient Education How to access health informa tion online - Detail Indication:Uncontrolled type 2 diabetes mellitus without complication, without long-term current use of insulin Start:30-Sep-2016 Instruction Type:Patient Education Patient Instructions Indication:Hypothyroid Start:28-Aug-2013 Instruction Type:Provider Instructions for Treatment Patient Instructions Indication:Family history of diabetes mellitus Start:06-Mar-2013 Instruction Type:Provider Instructions for Treatment [facility]; [facility] Work Phone: Instructions* Name Dates Details Patient Instructions Indication:Temporary low platelet count Start:19-Mar-2021 Instruction Type:Provider Instructions for Treatment How to Access Health Inform[employer] Online using Patient Portal and [employer]rd [employer] Apps Indication:Nonsmoker Start:19-Mar-2021 Instruction Type:Patient Education Patient Instructions Indication:Acute sinusitis Start:24-Feb-2021 Instruction Type:Provider Instructions for Treatment How to Access Health Informa tion Online using Patient Portal and [employer] Apps Indication:Acute sinusitis Start:24-Feb-2021 Instruction Type:Patient Education How to access health informa tion online Indication:Nonsmoker Start:10-Jun-2020 Instruction Type:Patient Education How to access health informa tion online - Detail Indication:Nonsmoker Start:10-Jun-2020 Instruction Type:Patient Education Patient Instructions Indication:BMI 34.0-34.9,adult Start:10-Jun-2020 Instruction Type:Provider Instructions for Treatment How to access health informa tion online Indication:Nonsmoker Start:23-Feb-2020 Instruction Type:Patient Education How to access health informa tion online - Detail Indication:Nonsmoker Start:23-Feb-2020 Instruction Type:Patient Education Patient Instructions Indication:Nonsmoker Start:23-Feb-2020 Instruction Type:Provider Instructions for Treatment How to access health informa tion online Indication:Nonsmoker Start:21-Feb-2020 Instruction Type:Patient Education How to access health informa tion online - Detail Indication:Nonsmoker Start:21-Feb-2020 Instruction Type:Patient Education Patient Instructions Indication:Nonsmoker Start:21-Feb-2020 Instruction Type:Provider Instructions for Treatment How to access health informa tion online Indication:Nonsmoker Start:16-Feb-2020 Instruction Type:Patient Education How to access health informa tion online - Detail Indication:Nonsmoker Start:16-Feb-2020 Instruction Type:Patient Education Patient Instructions Indication:BMI 34.0-34.9,adult Start:16-Feb-2020 Instruction Type:Provider Instructions for Treatment How to access health informa tion online Indication:Nonsmoker Start:14-Dec-2019 Instruction Type:Patient Education How to access health informa tion online - Detail Indication:Nonsmoker Start:14-Dec-2019 Instruction Type:Patient Education Patient Instructions Indication:Cough Start:14-Dec-2019 Instruction Type:Provider Instructions for Treatment How to access health informa tion online Indication:Diabetes mellitus type II, controlled, with no complications (Renamed from Controlled type 2 diabetes mellitus without complication) Start:06-Nov-2019 Instruction Type:Patient Education How to access health informa tion online - Detail Indication:Diabetes mellitus type II, controlled, with no complications (Renamed from Controlled type 2 diabetes mellitus without complication) Start:06-Nov-2019 Instruction Type:Patient Education Patient Instructions Indication:Vitamin D deficiency Start:06-Nov-2019 Instruction Type:Provider Instructions for Treatment How to access health informa tion online Indication:Diabetes mellitus type II, controlled, with no complications (Renamed from Controlled type 2 diabetes mellitus without complication) Start:28-Aug-2019 Instruction Type:Patient Education How to access health informa tion online - Detail Indication:Diabetes mellitus type II, controlled, with no complications (Renamed from Controlled type 2 diabetes mellitus without complication) Start:28-Aug-2019 Instruction Type:Patient Education Patient Instructions Indication:BMI 33.0-33.9,adult Start:28-Aug-2019 Instruction Type:Provider Instructions for Treatment How to access health informa tion online Indication:Nonsmoker Start:03-Apr-2019 Instruction Type:Patient Education How to access health informa tion online - Detail Indication:Nonsmoker Start:03-Apr-2019 Instruction Type:Patient Education Patient Instructions Indication:Nonsmoker Start:03-Apr-2019 Instruction Type:Provider Instructions for Treatment How to access health informa tion online Indication:Diabetes mellitus type 2, uncontrolled (Renamed from Uncontrolled type 2 diabetes mellitus) Start:13-Mar-2019 Instruction Type:Patient Education How to access health informa tion online - Detail Indication:Diabetes mellitus type 2, uncontrolled (Renamed from Uncontrolled type 2 diabetes mellitus) Start:13-Mar-2019 Instruction Type:Patient Education Patient Instructions Indication:BMI 35.0-35.9,adult Start:13-Mar-2019 Instruction Type:Provider Instructions for Treatment How to access health informa tion online Indication:Diabetes mellitus type II, controlled, with no complications (Renamed from Controlled type 2 diabetes mellitus without complication) Start:19-Jan-2019 Instruction Type:Patient Education How to access health informa tion online - Detail Indication:Diabetes mellitus type II, controlled, with no complications (Renamed from Controlled type 2 diabetes mellitus without complication) Start:19-Jan-2019 Instruction Type:Patient Education Patient Instructions Indication:Hypothyroid Start:19-Jan-2019 Instruction Type:Provider Instructions for Treatment How to access health informa tion online Indication:Nonsmoker Start:05-Oct-2018 Instruction Type:Patient Education How to access health informa tion online - Detail Indication:Nonsmoker Start:05-Oct-2018 Instruction Type:Patient Education Patient Instructions Indication:Atypical lobular hyperplasia of right breast Start:05-Oct-2018 Instruction Type:Provider Instructions for Treatment How to access health informa tion online Indication:BMI 35.0-35.9,adult Start:16-Sep-2018 Instruction Type:Patient Education How to access health informa tion online - Detail Indication:BMI 35.0-35.9,adult Start:16-Sep-2018 Instruction Type:Patient Education Patient Instructions Indication:BMI 35.0-35.9,adult Start:16-Sep-2018 Instruction Type:Provider Instructions for Treatment How to access health informa tion online Indication:Nonsmoker Start:27-Jun-2018 Instruction Type:Patient Education How to access health informa tion online - Detail Indication:Nonsmoker Start:27-Jun-2018 Instruction Type:Patient Education Patient Instructions Indication:Elevated liver enzymes Start:27-Jun-2018 Instruction Type:Provider Instructions for Treatment How to access health informa tion online Indication:Diabetes mellitus type II, controlled, with no complications (Renamed from Controlled type 2 diabetes mellitus without complication) Start:14-Jun-2018 Instruction Type:Patient Education How to access health informa tion online - Detail Indication:Diabetes mellitus type II, controlled, with no complications (Renamed from Controlled type 2 diabetes mellitus without complication) Start:14-Jun-2018 Instruction Type:Patient Education Patient Instructions Indication:Diabetes mellitus type II, controlled, with no complications (Renamed from Controlled type 2 diabetes mellitus without complication) Start:14-Jun-2018 Instruction Type:Provider Instructions for Treatment How to access health informa tion online Indication:Diabetes mellitus type II, controlled, with no complications (Renamed from Controlled type 2 diabetes mellitus without complication) Start:15-Mar-2018 Instruction Type:Patient Education How to access health informa tion online - Detail Indication:Diabetes mellitus type II, controlled, with no complications (Renamed from Controlled type 2 diabetes mellitus without complication) Start:15-Mar-2018 Instruction Type:Patient Education Patient Instructions Indication:Diabetes mellitus type II, controlled, with no complications (Renamed from Controlled type 2 diabetes mellitus without complication) Start:15-Mar-2018 Instruction Type:Provider Instructions for Treatment How to access health informa tion online Indication:Diabetes mellitus type II, controlled, with no complications (Renamed from Controlled type 2 diabetes mellitus without complication) Start:06-Dec-2017 Instruction Type:Patient Education How to access health informa tion online - Detail Indication:Diabetes mellitus type II, controlled, with no complications (Renamed from Controlled type 2 diabetes mellitus without complication) Start:06-Dec-2017 Instruction Type:Patient Education Patient Instructions Indication:Diabetes mellitus type II, controlled, with no complications (Renamed from Controlled type 2 diabetes mellitus without complication) Start:06-Dec-2017 Instruction Type:Provider Instructions for Treatment How to access health informa tion online Indication:Nonsmoker Start:30-Nov-2017 Instruction Type:Patient Education How to access health informa tion online - Detail Indication:Nonsmoker Start:30-Nov-2017 Instruction Type:Patient Education Patient Instructions Indication:Sinusitis, bacterial Start:30-Nov-2017 Instruction Type:Provider Instructions for Treatment How to access health informa tion online Indication:Diabetes mellitus type II, controlled, with no complications (Renamed from Controlled type 2 diabetes mellitus without complication) Start:10-Aug-2017 Instruction Type:Patient Education How to access health informa tion online - Detail Indication:Diabetes mellitus type II, controlled, with no complications (Renamed from Controlled type 2 diabetes mellitus without complication) Start:10-Aug-2017 Instruction Type:Patient Education Patient Instructions Indication:Diabetes mellitus type II, controlled, with no complications (Renamed from Controlled type 2 diabetes mellitus without complication) Start:10-Aug-2017 Instruction Type:Provider Instructions for Treatment How to access health informa tion online Indication:Uncontrolled type 2 diabetes mellitus without complication, without long-term current use of insulin Start:07-May-2017 Instruction Type:Patient Education How to access health informa tion online - Detail Indication:Uncontrolled type 2 diabetes mellitus without complication, without long-term current use of insulin Start:07-May-2017 Instruction Type:Patient Education Patient Instructions Indication:Uncontrolled type 2 diabetes mellitus without complication, without long-term current use of insulin Start:07-May-2017 Instruction Type:Provider Instructions for Treatment Patient Instructions Indication:Nonsmoker Start:09-Feb-2017 Instruction Type:Provider Instructions for Treatment How to access health informa tion online Indication:Uncontrolled type 2 diabetes mellitus without complication, without long-term current use of insulin Start:09-Dec-2016 Instruction Type:Patient Education How to access health informa tion online - Detail Indication:Uncontrolled type 2 diabetes mellitus without complication, without long-term current use of insulin Start:09-Dec-2016 Instruction Type:Patient Education Patient Instructions Indication:Uncontrolled type 2 diabetes mellitus without complication, without long-term current use of insulin Start:09-Dec-2016 Instruction Type:Provider Instructions for Treatment DISCONTINUED - LIPID PANEL ( [id number]) Indication:Hypercholesteremia Start:13-Oct-2016 Instruction Type:Patient Education DISCONTINUED - Glucose, PP/2 Hour (47115) Indication:Family history of diabetes mellitus Start:13-Oct-2016 Instruction Type:Patient Education DISCONTINUED - Hemoglobin Glyclated (HGB A1C) (94758) Indication:Family history of diabetes mellitus Start:13-Oct-2016 Instruction Type:Patient Education How to access health informa tion online Indication:Uncontrolled type 2 diabetes mellitus without complication, without long-term current use of insulin Start:13-Oct-2016 Instruction Type:Patient Education How to access health informa tion online - Detail Indication:Uncontrolled type 2 diabetes mellitus without complication, without long-term current use of insulin Start:13-Oct-2016 Instruction Type:Patient Education Patient Instructions Indication:Uncontrolled type 2 diabetes mellitus without complication, without long-term current use of insulin Start:13-Oct-2016 Instruction Type:Provider Instructions for Treatment Patient Instructions Indication:Nonsmoker Start:30-Sep-2016 Instruction Type:Provider Instructions for Treatment How to access health informa tion online Indication:Uncontrolled type 2 diabetes mellitus without complication, without long-term current use of insulin Start:30-Sep-2016 Instruction Type:Patient Education How to access health informa tion online - Detail Indication:Uncontrolled type 2 diabetes mellitus without complication, without long-term current use of insulin Start:30-Sep-2016 Instruction Type:Patient Education Patient Instructions Indication:Hypothyroid Start:28-Aug-2013 Instruction Type:Provider Instructions for Treatment Patient Instructions Indication:Family history of diabetes mellitus Start:06-Mar-2013 Instruction Type:Provider Instructions for Treatment [facility]; [facility] Work Phone: Instructions* Name Dates Details Patient Instructions Indication:Temporary low platelet count Start:19-Mar-2021 Instruction Type:Provider Instructions for Treatment How to Access Health [employer] using Patient Portal and [employer] Apps Indication:Nonsmoker Start:19-Mar-2021 Instruction Type:Patient Education Patient Instructions Indication:Acute sinusitis Start:24-Feb-2021 Instruction Type:Provider Instructions for Treatment How to Access Health Informa tion Online using Patient Portal and [employer] Apps Indication:Acute sinusitis Start:24-Feb-2021 Instruction Type:Patient Education How to access health informa tion online Indication:Nonsmoker Start:10-Jun-2020 Instruction Type:Patient Education How to access health informa tion online - Detail Indication:Nonsmoker Start:10-Jun-2020 Instruction Type:Patient Education Patient Instructions Indication:BMI 34.0-34.9,adult Start:10-Jun-2020 Instruction Type:Provider Instructions for Treatment How to access health informa tion online Indication:Nonsmoker Start:23-Feb-2020 Instruction Type:Patient Education How to access health informa tion online - Detail Indication:Nonsmoker Start:23-Feb-2020 Instruction Type:Patient Education Patient Instructions Indication:Nonsmoker Start:23-Feb-2020 Instruction Type:Provider Instructions for Treatment How to access health informa tion online Indication:Nonsmoker Start:21-Feb-2020 Instruction Type:Patient Education How to access health informa tion online - Detail Indication:Nonsmoker Start:21-Feb-2020 Instruction Type:Patient Education Patient Instructions Indication:Nonsmoker Start:21-Feb-2020 Instruction Type:Provider Instructions for Treatment How to access health informa tion online Indication:Nonsmoker Start:16-Feb-2020 Instruction Type:Patient Education How to access health informa tion online - Detail Indication:Nonsmoker Start:16-Feb-2020 Instruction Type:Patient Education Patient Instructions Indication:BMI 34.0-34.9,adult Start:16-Feb-2020 Instruction Type:Provider Instructions for Treatment How to access health informa tion online Indication:Nonsmoker Start:14-Dec-2019 Instruction Type:Patient Education How to access health informa tion online - Detail Indication:Nonsmoker Start:14-Dec-2019 Instruction Type:Patient Education Patient Instructions Indication:Cough Start:14-Dec-2019 Instruction Type:Provider Instructions for Treatment How to access health informa tion online Indication:Diabetes mellitus type II, controlled, with no complications (Renamed from Controlled type 2 diabetes mellitus without complication) Start:06-Nov-2019 Instruction Type:Patient Education How to access health informa tion online - Detail Indication:Diabetes mellitus type II, controlled, with no complications (Renamed from Controlled type 2 diabetes mellitus without complication) Start:06-Nov-2019 Instruction Type:Patient Education Patient Instructions Indication:Vitamin D deficiency Start:06-Nov-2019 Instruction Type:Provider Instructions for Treatment How to access health informa tion online Indication:Diabetes mellitus type II, controlled, with no complications (Renamed from Controlled type 2 diabetes mellitus without complication) Start:28-Aug-2019 Instruction Type:Patient Education How to access health informa tion online - Detail Indication:Diabetes mellitus type II, controlled, with no complications (Renamed from Controlled type 2 diabetes mellitus without complication) Start:28-Aug-2019 Instruction Type:Patient Education Patient Instructions Indication:BMI 33.0-33.9,adult Start:28-Aug-2019 Instruction Type:Provider Instructions for Treatment How to access health informa tion online Indication:Nonsmoker Start:03-Apr-2019 Instruction Type:Patient Education How to access health informa tion online - Detail Indication:Nonsmoker Start:03-Apr-2019 Instruction Type:Patient Education Patient Instructions Indication:Nonsmoker Start:03-Apr-2019 Instruction Type:Provider Instructions for Treatment How to access health informa tion online Indication:Diabetes mellitus type 2, uncontrolled (Renamed from Uncontrolled type 2 diabetes mellitus) Start:13-Mar-2019 Instruction Type:Patient Education How to access health informa tion online - Detail Indication:Diabetes mellitus type 2, uncontrolled (Renamed from Uncontrolled type 2 diabetes mellitus) Start:13-Mar-2019 Instruction Type:Patient Education Patient Instructions Indication:BMI 35.0-35.9,adult Start:13-Mar-2019 Instruction Type:Provider Instructions for Treatment How to access health informa tion online Indication:Diabetes mellitus type II, controlled, with no complications (Renamed from Controlled type 2 diabetes mellitus without complication) Start:19-Jan-2019 Instruction Type:Patient Education How to access health informa tion online - Detail Indication:Diabetes mellitus type II, controlled, with no complications (Renamed from Controlled type 2 diabetes mellitus without complication) Start:19-Jan-2019 Instruction Type:Patient Education Patient Instructions Indication:Hypothyroid Start:19-Jan-2019 Instruction Type:Provider Instructions for Treatment How to access health informa tion online Indication:Nonsmoker Start:05-Oct-2018 Instruction Type:Patient Education How to access health informa tion online - Detail Indication:Nonsmoker Start:05-Oct-2018 Instruction Type:Patient Education Patient Instructions Indication:Atypical lobular hyperplasia of right breast Start:05-Oct-2018 Instruction Type:Provider Instructions for Treatment How to access health informa tion online Indication:BMI 35.0-35.9,adult Start:16-Sep-2018 Instruction Type:Patient Education How to access health informa tion online - Detail Indication:BMI 35.0-35.9,adult Start:16-Sep-2018 Instruction Type:Patient Education Patient Instructions Indication:BMI 35.0-35.9,adult Start:16-Sep-2018 Instruction Type:Provider Instructions for Treatment How to access health informa tion online Indication:Nonsmoker Start:27-Jun-2018 Instruction Type:Patient Education How to access health informa tion online - Detail Indication:Nonsmoker Start:27-Jun-2018 Instruction Type:Patient Education Patient Instructions Indication:Elevated liver enzymes Start:27-Jun-2018 Instruction Type:Provider Instructions for Treatment How to access health informa tion online Indication:Diabetes mellitus type II, controlled, with no complications (Renamed from Controlled type 2 diabetes mellitus without complication) Start:14-Jun-2018 Instruction Type:Patient Education How to access health informa tion online - Detail Indication:Diabetes mellitus type II, controlled, with no complications (Renamed from Controlled type 2 diabetes mellitus without complication) Start:14-Jun-2018 Instruction Type:Patient Education Patient Instructions Indication:Diabetes mellitus type II, controlled, with no complications (Renamed from Controlled type 2 diabetes mellitus without complication) Start:14-Jun-2018 Instruction Type:Provider Instructions for Treatment How to access health informa tion online Indication:Diabetes mellitus type II, controlled, with no complications (Renamed from Controlled type 2 diabetes mellitus without complication) Start:15-Mar-2018 Instruction Type:Patient Education How to access health informa tion online - Detail Indication:Diabetes mellitus type II, controlled, with no complications (Renamed from Controlled type 2 diabetes mellitus without complication) Start:15-Mar-2018 Instruction Type:Patient Education Patient Instructions Indication:Diabetes mellitus type II, controlled, with no complications (Renamed from Controlled type 2 diabetes mellitus without complication) Start:15-Mar-2018 Instruction Type:Provider Instructions for Treatment How to access health informa tion online Indication:Diabetes mellitus type II, controlled, with no complications (Renamed from Controlled type 2 diabetes mellitus without complication) Start:06-Dec-2017 Instruction Type:Patient Education How to access health informa tion online - Detail Indication:Diabetes mellitus type II, controlled, with no complications (Renamed from Controlled type 2 diabetes mellitus without complication) Start:06-Dec-2017 Instruction Type:Patient Education Patient Instructions Indication:Diabetes mellitus type II, controlled, with no complications (Renamed from Controlled type 2 diabetes mellitus without complication) Start:06-Dec-2017 Instruction Type:Provider Instructions for Treatment How to access health informa tion online Indication:Nonsmoker Start:30-Nov-2017 Instruction Type:Patient Education How to access health informa tion online - Detail Indication:Nonsmoker Start:30-Nov-2017 Instruction Type:Patient Education Patient Instructions Indication:Sinusitis, bacterial Start:30-Nov-2017 Instruction Type:Provider Instructions for Treatment How to access health informa tion online Indication:Diabetes mellitus type II, controlled, with no complications (Renamed from Controlled type 2 diabetes mellitus without complication) Start:10-Aug-2017 Instruction Type:Patient Education How to access health informa tion online - Detail Indication:Diabetes mellitus type II, controlled, with no complications (Renamed from Controlled type 2 diabetes mellitus without complication) Start:10-Aug-2017 Instruction Type:Patient Education Patient Instructions Indication:Diabetes mellitus type II, controlled, with no complications (Renamed from Controlled type 2 diabetes mellitus without complication) Start:10-Aug-2017 Instruction Type:Provider Instructions for Treatment How to access health informa tion online Indication:Uncontrolled type 2 diabetes mellitus without complication, without long-term current use of insulin Start:07-May-2017 Instruction Type:Patient Education How to access health informa tion online - Detail Indication:Uncontrolled type 2 diabetes mellitus without complication, without long-term current use of insulin Start:07-May-2017 Instruction Type:Patient Education Patient Instructions Indication:Uncontrolled type 2 diabetes mellitus without complication, without long-term current use of insulin Start:07-May-2017 Instruction Type:Provider Instructions for Treatment Patient Instructions Indication:Nonsmoker Start:09-Feb-2017 Instruction Type:Provider Instructions for Treatment How to access health informa tion online Indication:Uncontrolled type 2 diabetes mellitus without complication, without long-term current use of insulin Start:09-Dec-2016 Instruction Type:Patient Education How to access health informa tion online - Detail Indication:Uncontrolled type 2 diabetes mellitus without complication, without long-term current use of insulin Start:09-Dec-2016 Instruction Type:Patient Education Patient Instructions Indication:Uncontrolled type 2 diabetes mellitus without complication, without long-term current use of insulin Start:09-Dec-2016 Instruction Type:Provider Instructions for Treatment DISCONTINUED - LIPID PANEL ( [id number]) Indication:Hypercholesteremia Start:13-Oct-2016 Instruction Type:Patient Education DISCONTINUED - Glucose, PP/2 Hour (12289) Indication:Family history of diabetes mellitus Start:13-Oct-2016 Instruction Type:Patient Education DISCONTINUED - Hemoglobin Glyclated (HGB A1C) (24893) Indication:Family history of diabetes mellitus Start:13-Oct-2016 Instruction Type:Patient Education How to access health informa [employer] online Indication:Uncontrolled type 2 diabetes mellitus without complication, without long-term current use of insulin Start:13-Oct-2016 Instruction Type:Patient Education How to access health informa tion online - Detail Indication:Uncontrolled type 2 diabetes mellitus without complication, without long-term current use of insulin Start:13-Oct-2016 Instruction Type:Patient Education Patient Instructions Indication:Uncontrolled type 2 diabetes mellitus without complication, without long-term current use of insulin Start:13-Oct-2016 Instruction Type:Provider Instructions for Treatment Patient Instructions Indication:Nonsmoker Start:30-Sep-2016 Instruction Type:Provider Instructions for Treatment How to access health informa [employer] online Indication:Uncontrolled type 2 diabetes mellitus without complication, without long-term current use of insulin Start:30-Sep-2016 Instruction Type:Patient Education How to access health informa tion online - Detail Indication:Uncontrolled type 2 diabetes mellitus without complication, without long-term current use of insulin Start:30-Sep-2016 Instruction Type:Patient Education Patient Instructions Indication:Hypothyroid Start:28-Aug-2013 Instruction Type:Provider Instructions for Treatment Patient Instructions Indication:Family history of diabetes mellitus Start:06-Mar-2013 Instruction Type:Provider Instructions for Treatment [facility]; [facility] Work Phone: Instructions* Name Dates Details Patient Instructions Indication:Temporary low platelet count Start:19-Mar-2021 Instruction Type:Provider Instructions for Treatment How to Access Health [employer] Online using Patient Portal and [employer] Indication:Nonsmoker Start:19-Mar-2021 Instruction Type:Patient Education Patient Instructions Indication:Acute sinusitis Start:24-Feb-2021 Instruction Type:Provider Instructions for Treatment How to Access Health Informa tion Online using Patient Portal and [employer] Apps Indication:Acute sinusitis Start:24-Feb-2021 Instruction Type:Patient Education How to access health informa tion online Indication:Nonsmoker Start:10-Jun-2020 Instruction Type:Patient Education How to access health informa tion online - Detail Indication:Nonsmoker Start:10-Jun-2020 Instruction Type:Patient Education Patient Instructions Indication:BMI 34.0-34.9,adult Start:10-Jun-2020 Instruction Type:Provider Instructions for Treatment How to access health informa tion online Indication:Nonsmoker Start:23-Feb-2020 Instruction Type:Patient Education How to access health informa tion online - Detail Indication:Nonsmoker Start:23-Feb-2020 Instruction Type:Patient Education Patient Instructions Indication:Nonsmoker Start:23-Feb-2020 Instruction Type:Provider Instructions for Treatment How to access health informa tion online Indication:Nonsmoker Start:21-Feb-2020 Instruction Type:Patient Education How to access health informa tion online - Detail Indication:Nonsmoker Start:21-Feb-2020 Instruction Type:Patient Education Patient Instructions Indication:Nonsmoker Start:21-Feb-2020 Instruction Type:Provider Instructions for Treatment How to access health informa tion online Indication:Nonsmoker Start:16-Feb-2020 Instruction Type:Patient Education How to access health informa tion online - Detail Indication:Nonsmoker Start:16-Feb-2020 Instruction Type:Patient Education Patient Instructions Indication:BMI 34.0-34.9,adult Start:16-Feb-2020 Instruction Type:Provider Instructions for Treatment How to access health informa tion online Indication:Nonsmoker Start:14-Dec-2019 Instruction Type:Patient Education How to access health informa tion online - Detail Indication:Nonsmoker Start:14-Dec-2019 Instruction Type:Patient Education Patient Instructions Indication:Cough Start:14-Dec-2019 Instruction Type:Provider Instructions for Treatment How to access health informa tion online Indication:Diabetes mellitus type II, controlled, with no complications (Renamed from Controlled type 2 diabetes mellitus without complication) Start:06-Nov-2019 Instruction Type:Patient Education How to access health informa tion online - Detail Indication:Diabetes mellitus type II, controlled, with no complications (Renamed from Controlled type 2 diabetes mellitus without complication) Start:06-Nov-2019 Instruction Type:Patient Education Patient Instructions Indication:Vitamin D deficiency Start:06-Nov-2019 Instruction Type:Provider Instructions for Treatment How to access health informa tion online Indication:Diabetes mellitus type II, controlled, with no complications (Renamed from Controlled type 2 diabetes mellitus without complication) Start:28-Aug-2019 Instruction Type:Patient Education How to access health informa tion online - Detail Indication:Diabetes mellitus type II, controlled, with no complications (Renamed from Controlled type 2 diabetes mellitus without complication) Start:28-Aug-2019 Instruction Type:Patient Education Patient Instructions Indication:BMI 33.0-33.9,adult Start:28-Aug-2019 Instruction Type:Provider Instructions for Treatment How to access health informa tion online Indication:Nonsmoker Start:03-Apr-2019 Instruction Type:Patient Education How to access health informa tion online - Detail Indication:Nonsmoker Start:03-Apr-2019 Instruction Type:Patient Education Patient Instructions Indication:Nonsmoker Start:03-Apr-2019 Instruction Type:Provider Instructions for Treatment How to access health informa tion online Indication:Diabetes mellitus type 2, uncontrolled (Renamed from Uncontrolled type 2 diabetes mellitus) Start:13-Mar-2019 Instruction Type:Patient Education How to access health informa tion online - Detail Indication:Diabetes mellitus type 2, uncontrolled (Renamed from Uncontrolled type 2 diabetes mellitus) Start:13-Mar-2019 Instruction Type:Patient Education Patient Instructions Indication:BMI 35.0-35.9,adult Start:13-Mar-2019 Instruction Type:Provider Instructions for Treatment How to access health informa tion online Indication:Diabetes mellitus type II, controlled, with no complications (Renamed from Controlled type 2 diabetes mellitus without complication) Start:19-Jan-2019 Instruction Type:Patient Education How to access health informa tion online - Detail Indication:Diabetes mellitus type II, controlled, with no complications (Renamed from Controlled type 2 diabetes mellitus without complication) Start:19-Jan-2019 Instruction Type:Patient Education Patient Instructions Indication:Hypothyroid Start:19-Jan-2019 Instruction Type:Provider Instructions for Treatment How to access health informa tion online Indication:Nonsmoker Start:05-Oct-2018 Instruction Type:Patient Education How to access health informa tion online - Detail Indication:Nonsmoker Start:05-Oct-2018 Instruction Type:Patient Education Patient Instructions Indication:Atypical lobular hyperplasia of right breast Start:05-Oct-2018 Instruction Type:Provider Instructions for Treatment How to access health informa tion online Indication:BMI 35.0-35.9,adult Start:16-Sep-2018 Instruction Type:Patient Education How to access health informa tion online - Detail Indication:BMI 35.0-35.9,adult Start:16-Sep-2018 Instruction Type:Patient Education Patient Instructions Indication:BMI 35.0-35.9,adult Start:16-Sep-2018 Instruction Type:Provider Instructions for Treatment How to access health informa tion online Indication:Nonsmoker Start:27-Jun-2018 Instruction Type:Patient Education How to access health informa tion online - Detail Indication:Nonsmoker Start:27-Jun-2018 Instruction Type:Patient Education Patient Instructions Indication:Elevated liver enzymes Start:27-Jun-2018 Instruction Type:Provider Instructions for Treatment How to access health informa tion online Indication:Diabetes mellitus type II, controlled, with no complications (Renamed from Controlled type 2 diabetes mellitus without complication) Start:14-Jun-2018 Instruction Type:Patient Education How to access health informa tion online - Detail Indication:Diabetes mellitus type II, controlled, with no complications (Renamed from Controlled type 2 diabetes mellitus without complication) Start:14-Jun-2018 Instruction Type:Patient Education Patient Instructions Indication:Diabetes mellitus type II, controlled, with no complications (Renamed from Controlled type 2 diabetes mellitus without complication) Start:14-Jun-2018 Instruction Type:Provider Instructions for Treatment How to access health informa tion online Indication:Diabetes mellitus type II, controlled, with no complications (Renamed from Controlled type 2 diabetes mellitus without complication) Start:15-Mar-2018 Instruction Type:Patient Education How to access health informa tion online - Detail Indication:Diabetes mellitus type II, controlled, with no complications (Renamed from Controlled type 2 diabetes mellitus without complication) Start:15-Mar-2018 Instruction Type:Patient Education Patient Instructions Indication:Diabetes mellitus type II, controlled, with no complications (Renamed from Controlled type 2 diabetes mellitus without complication) Start:15-Mar-2018 Instruction Type:Provider Instructions for Treatment How to access health informa tion online Indication:Diabetes mellitus type II, controlled, with no complications (Renamed from Controlled type 2 diabetes mellitus without complication) Start:06-Dec-2017 Instruction Type:Patient Education How to access health informa tion online - Detail Indication:Diabetes mellitus type II, controlled, with no complications (Renamed from Controlled type 2 diabetes mellitus without complication) Start:06-Dec-2017 Instruction Type:Patient Education Patient Instructions Indication:Diabetes mellitus type II, controlled, with no complications (Renamed from Controlled type 2 diabetes mellitus without complication) Start:06-Dec-2017 Instruction Type:Provider Instructions for Treatment How to access health informa tion online Indication:Nonsmoker Start:30-Nov-2017 Instruction Type:Patient Education How to access health informa tion online - Detail Indication:Nonsmoker Start:30-Nov-2017 Instruction Type:Patient Education Patient Instructions Indication:Sinusitis, bacterial Start:30-Nov-2017 Instruction Type:Provider Instructions for Treatment How to access health informa tion online Indication:Diabetes mellitus type II, controlled, with no complications (Renamed from Controlled type 2 diabetes mellitus without complication) Start:10-Aug-2017 Instruction Type:Patient Education How to access health informa tion online - Detail Indication:Diabetes mellitus type II, controlled, with no complications (Renamed from Controlled type 2 diabetes mellitus without complication) Start:10-Aug-2017 Instruction Type:Patient Education Patient Instructions Indication:Diabetes mellitus type II, controlled, with no complications (Renamed from Controlled type 2 diabetes mellitus without complication) Start:10-Aug-2017 Instruction Type:Provider Instructions for Treatment How to access health informa tion online Indication:Uncontrolled type 2 diabetes mellitus without complication, without long-term current use of insulin Start:07-May-2017 Instruction Type:Patient Education How to access health informa tion online - Detail Indication:Uncontrolled type 2 diabetes mellitus without complication, without long-term current use of insulin Start:07-May-2017 Instruction Type:Patient Education Patient Instructions Indication:Uncontrolled type 2 diabetes mellitus without complication, without long-term current use of insulin Start:07-May-2017 Instruction Type:Provider Instructions for Treatment Patient Instructions Indication:Nonsmoker Start:09-Feb-2017 Instruction Type:Provider Instructions for Treatment How to access health informa tion online Indication:Uncontrolled type 2 diabetes mellitus without complication, without long-term current use of insulin Start:09-Dec-2016 Instruction Type:Patient Education How to access health informa tion online - Detail Indication:Uncontrolled type 2 diabetes mellitus without complication, without long-term current use of insulin Start:09-Dec-2016 Instruction Type:Patient Education Patient Instructions Indication:Uncontrolled type 2 diabetes mellitus without complication, without long-term current use of insulin Start:09-Dec-2016 Instruction Type:Provider Instructions for Treatment DISCONTINUED - LIPID PANEL ( [id number]) Indication:Hypercholesteremia Start:13-Oct-2016 Instruction Type:Patient Education DISCONTINUED - Glucose, PP/2 Hour (14499) Indication:Family history of diabetes mellitus Start:13-Oct-2016 Instruction Type:Patient Education DISCONTINUED - Hemoglobin Glyclated (HGB A1C) (41535) Indication:Family history of diabetes mellitus Start:13-Oct-2016 Instruction Type:Patient Education How to access health informa tion online Indication:Uncontrolled type 2 diabetes mellitus without complication, without long-term current use of insulin Start:13-Oct-2016 Instruction Type:Patient Education How to access health informa tion online - Detail Indication:Uncontrolled type 2 diabetes mellitus without complication, without long-term current use of insulin Start:13-Oct-2016 Instruction Type:Patient Education Patient Instructions Indication:Uncontrolled type 2 diabetes mellitus without complication, without long-term current use of insulin Start:13-Oct-2016 Instruction Type:Provider Instructions for Treatment Patient Instructions Indication:Nonsmoker Start:30-Sep-2016 Instruction Type:Provider Instructions for Treatment How to access health informa tion online Indication:Uncontrolled type 2 diabetes mellitus without complication, without long-term current use of insulin Start:30-Sep-2016 Instruction Type:Patient Education How to access health informa tion online - Detail Indication:Uncontrolled type 2 diabetes mellitus without complication, without long-term current use of insulin Start:30-Sep-2016 Instruction Type:Patient Education Patient Instructions Indication:Hypothyroid Start:28-Aug-2013 Instruction Type:Provider Instructions for Treatment Patient Instructions Indication:Family history of diabetes mellitus Start:06-Mar-2013 Instruction Type:Provider Instructions for Treatment [facility]; [facility] Work Phone: Instructions* Name Dates Details Patient Instructions Indication:Temporary low platelet count Start:19-Mar-2021 Instruction Type:Provider Instructions for Treatment How to Access Health Informa tion Online using Patient Portal and [employer] Apps Indication:Nonsmoker Start:19-Mar-2021 Instruction Type:Patient Education Patient Instructions Indication:Acute sinusitis Start:24-Feb-2021 Instruction Type:Provider Instructions for Treatment How to Access Health Informa tion Online using Patient Portal and [employer] Apps Indication:Acute sinusitis Start:24-Feb-2021 Instruction Type:Patient Education How to access health informa tion online Indication:Nonsmoker Start:10-Jun-2020 Instruction Type:Patient Education How to access health informa tion online - Detail Indication:Nonsmoker Start:10-Jun-2020 Instruction Type:Patient Education Patient Instructions Indication:BMI 34.0-34.9,adult Start:10-Jun-2020 Instruction Type:Provider Instructions for Treatment How to access health informa tion online Indication:Nonsmoker Start:23-Feb-2020 Instruction Type:Patient Education How to access health informa tion online - Detail Indication:Nonsmoker Start:23-Feb-2020 Instruction Type:Patient Education Patient Instructions Indication:Nonsmoker Start:23-Feb-2020 Instruction Type:Provider Instructions for Treatment How to access health informa tion online Indication:Nonsmoker Start:21-Feb-2020 Instruction Type:Patient Education How to access health informa tion online - Detail Indication:Nonsmoker Start:21-Feb-2020 Instruction Type:Patient Education Patient Instructions Indication:Nonsmoker Start:21-Feb-2020 Instruction Type:Provider Instructions for Treatment How to access health informa tion online Indication:Nonsmoker Start:16-Feb-2020 Instruction Type:Patient Education How to access health informa tion online - Detail Indication:Nonsmoker Start:16-Feb-2020 Instruction Type:Patient Education Patient Instructions Indication:BMI 34.0-34.9,adult Start:16-Feb-2020 Instruction Type:Provider Instructions for Treatment How to access health informa tion online Indication:Nonsmoker Start:14-Dec-2019 Instruction Type:Patient Education How to access health informa tion online - Detail Indication:Nonsmoker Start:14-Dec-2019 Instruction Type:Patient Education Patient Instructions Indication:Cough Start:14-Dec-2019 Instruction Type:Provider Instructions for Treatment How to access health informa tion online Indication:Diabetes mellitus type II, controlled, with no complications (Renamed from Controlled type 2 diabetes mellitus without complication) Start:06-Nov-2019 Instruction Type:Patient Education How to access health informa tion online - Detail Indication:Diabetes mellitus type II, controlled, with no complications (Renamed from Controlled type 2 diabetes mellitus without complication) Start:06-Nov-2019 Instruction Type:Patient Education Patient Instructions Indication:Vitamin D deficiency Start:06-Nov-2019 Instruction Type:Provider Instructions for Treatment How to access health informa tion online Indication:Diabetes mellitus type II, controlled, with no complications (Renamed from Controlled type 2 diabetes mellitus without complication) Start:28-Aug-2019 Instruction Type:Patient Education How to access health informa tion online - Detail Indication:Diabetes mellitus type II, controlled, with no complications (Renamed from Controlled type 2 diabetes mellitus without complication) Start:28-Aug-2019 Instruction Type:Patient Education Patient Instructions Indication:BMI 33.0-33.9,adult Start:28-Aug-2019 Instruction Type:Provider Instructions for Treatment How to access health informa tion online Indication:Nonsmoker Start:03-Apr-2019 Instruction Type:Patient Education How to access health informa tion online - Detail Indication:Nonsmoker Start:03-Apr-2019 Instruction Type:Patient Education Patient Instructions Indication:Nonsmoker Start:03-Apr-2019 Instruction Type:Provider Instructions for Treatment How to access health informa tion online Indication:Diabetes mellitus type 2, uncontrolled (Renamed from Uncontrolled type 2 diabetes mellitus) Start:13-Mar-2019 Instruction Type:Patient Education How to access health informa tion online - Detail Indication:Diabetes mellitus type 2, uncontrolled (Renamed from Uncontrolled type 2 diabetes mellitus) Start:13-Mar-2019 Instruction Type:Patient Education Patient Instructions Indication:BMI 35.0-35.9,adult Start:13-Mar-2019 Instruction Type:Provider Instructions for Treatment How to access health informa tion online Indication:Diabetes mellitus type II, controlled, with no complications (Renamed from Controlled type 2 diabetes mellitus without complication) Start:19-Jan-2019 Instruction Type:Patient Education How to access health informa tion online - Detail Indication:Diabetes mellitus type II, controlled, with no complications (Renamed from Controlled type 2 diabetes mellitus without complication) Start:19-Jan-2019 Instruction Type:Patient Education Patient Instructions Indication:Hypothyroid Start:19-Jan-2019 Instruction Type:Provider Instructions for Treatment How to access health informa tion online Indication:Nonsmoker Start:05-Oct-2018 Instruction Type:Patient Education How to access health informa tion online - Detail Indication:Nonsmoker Start:05-Oct-2018 Instruction Type:Patient Education Patient Instructions Indication:Atypical lobular hyperplasia of right breast Start:05-Oct-2018 Instruction Type:Provider Instructions for Treatment How to access health informa tion online Indication:BMI 35.0-35.9,adult Start:16-Sep-2018 Instruction Type:Patient Education How to access health informa tion online - Detail Indication:BMI 35.0-35.9,adult Start:16-Sep-2018 Instruction Type:Patient Education Patient Instructions Indication:BMI 35.0-35.9,adult Start:16-Sep-2018 Instruction Type:Provider Instructions for Treatment How to access health informa tion online Indication:Nonsmoker Start:27-Jun-2018 Instruction Type:Patient Education How to access health informa tion online - Detail Indication:Nonsmoker Start:27-Jun-2018 Instruction Type:Patient Education Patient Instructions Indication:Elevated liver enzymes Start:27-Jun-2018 Instruction Type:Provider Instructions for Treatment How to access health informa tion online Indication:Diabetes mellitus type II, controlled, with no complications (Renamed from Controlled type 2 diabetes mellitus without complication) Start:14-Jun-2018 Instruction Type:Patient Education How to access health informa tion online - Detail Indication:Diabetes mellitus type II, controlled, with no complications (Renamed from Controlled type 2 diabetes mellitus without complication) Start:14-Jun-2018 Instruction Type:Patient Education Patient Instructions Indication:Diabetes mellitus type II, controlled, with no complications (Renamed from Controlled type 2 diabetes mellitus without complication) Start:14-Jun-2018 Instruction Type:Provider Instructions for Treatment How to access health informa tion online Indication:Diabetes mellitus type II, controlled, with no complications (Renamed from Controlled type 2 diabetes mellitus without complication) Start:15-Mar-2018 Instruction Type:Patient Education How to access health informa tion online - Detail Indication:Diabetes mellitus type II, controlled, with no complications (Renamed from Controlled type 2 diabetes mellitus without complication) Start:15-Mar-2018 Instruction Type:Patient Education Patient Instructions Indication:Diabetes mellitus type II, controlled, with no complications (Renamed from Controlled type 2 diabetes mellitus without complication) Start:15-Mar-2018 Instruction Type:Provider Instructions for Treatment How to access health informa tion online Indication:Diabetes mellitus type II, controlled, with no complications (Renamed from Controlled type 2 diabetes mellitus without complication) Start:06-Dec-2017 Instruction Type:Patient Education How to access health informa tion online - Detail Indication:Diabetes mellitus type II, controlled, with no complications (Renamed from Controlled type 2 diabetes mellitus without complication) Start:06-Dec-2017 Instruction Type:Patient Education Patient Instructions Indication:Diabetes mellitus type II, controlled, with no complications (Renamed from Controlled type 2 diabetes mellitus without complication) Start:06-Dec-2017 Instruction Type:Provider Instructions for Treatment How to access health informa tion online Indication:Nonsmoker Start:30-Nov-2017 Instruction Type:Patient Education How to access health informa tion online - Detail Indication:Nonsmoker Start:30-Nov-2017 Instruction Type:Patient Education Patient Instructions Indication:Sinusitis, bacterial Start:30-Nov-2017 Instruction Type:Provider Instructions for Treatment How to access health informa tion online Indication:Diabetes mellitus type II, controlled, with no complications (Renamed from Controlled type 2 diabetes mellitus without complication) Start:10-Aug-2017 Instruction Type:Patient Education How to access health informa tion online - Detail Indication:Diabetes mellitus type II, controlled, with no complications (Renamed from Controlled type 2 diabetes mellitus without complication) Start:10-Aug-2017 Instruction Type:Patient Education Patient Instructions Indication:Diabetes mellitus type II, controlled, with no complications (Renamed from Controlled type 2 diabetes mellitus without complication) Start:10-Aug-2017 Instruction Type:Provider Instructions for Treatment How to access health informa tion online Indication:Uncontrolled type 2 diabetes mellitus without complication, without long-term current use of insulin Start:07-May-2017 Instruction Type:Patient Education How to access health informa tion online - Detail Indication:Uncontrolled type 2 diabetes mellitus without complication, without long-term current use of insulin Start:07-May-2017 Instruction Type:Patient Education Patient Instructions Indication:Uncontrolled type 2 diabetes mellitus without complication, without long-term current use of insulin Start:07-May-2017 Instruction Type:Provider Instructions for Treatment Patient Instructions Indication:Nonsmoker Start:09-Feb-2017 Instruction Type:Provider Instructions for Treatment How to access health informa tion online Indication:Uncontrolled type 2 diabetes mellitus without complication, without long-term current use of insulin Start:09-Dec-2016 Instruction Type:Patient Education How to access health informa tion online - Detail Indication:Uncontrolled type 2 diabetes mellitus without complication, without long-term current use of insulin Start:09-Dec-2016 Instruction Type:Patient Education Patient Instructions Indication:Uncontrolled type 2 diabetes mellitus without complication, without long-term current use of insulin Start:09-Dec-2016 Instruction Type:Provider Instructions for Treatment DISCONTINUED - LIPID PANEL ( [id number]) Indication:Hypercholesteremia Start:13-Oct-2016 Instruction Type:Patient Education DISCONTINUED - Glucose, PP/2 Hour (87938) Indication:Family history of diabetes mellitus Start:13-Oct-2016 Instruction Type:Patient Education DISCONTINUED - Hemoglobin Glyclated (HGB A1C) (72790) Indication:Family history of diabetes mellitus Start:13-Oct-2016 Instruction Type:Patient Education How to access health [employer] online Indication:Uncontrolled type 2 diabetes mellitus without complication, without long-term current use of insulin Start:13-Oct-2016 Instruction Type:Patient Education How to access health informa [employer] online - Detail Indication:Uncontrolled type 2 diabetes mellitus without complication, without long-term current use of insulin Start:13-Oct-2016 Instruction Type:Patient Education Patient Instructions Indication:Uncontrolled type 2 diabetes mellitus without complication, without long-term current use of insulin Start:13-Oct-2016 Instruction Type:Provider Instructions for Treatment Patient Instructions Indication:Nonsmoker Start:30-Sep-2016 Instruction Type:Provider Instructions for Treatment How to access health [employer] online Indication:Uncontrolled type 2 diabetes mellitus without complication, without long-term current use of insulin Start:30-Sep-2016 Instruction Type:Patient Education How to access health informa [employer] online - Detail Indication:Uncontrolled type 2 diabetes mellitus without complication, without long-term current use of insulin Start:30-Sep-2016 Instruction Type:Patient Education Patient Instructions Indication:Hypothyroid Start:28-Aug-2013 Instruction Type:Provider Instructions for Treatment Patient Instructions Indication:Family history of diabetes mellitus Start:06-Mar-2013 Instruction Type:Provider Instructions for Treatment [facility]; [facility] Work Phone: Instructions* Name Dates Details Patient Instructions Indication:BMI 33.0-33.9,adult Start:18-Nov-2021 Instruction Type:Provider Instructions for Treatment How to Access [employer] using Patient Portal and [employer] Apps Indication:Diabetes mellitus type II, controlled, with no complications (Renamed from Controlled type 2 diabetes mellitus without complication) Start:18-Nov-2021 Instruction Type:Patient Education Patient Instructions Indication:Vitamin D deficiency Start:13-Aug-2021 Instruction Type:Provider Instructions for Treatment How to Access Health Informa tion Online using Patient Portal and [employer] Apps Indication:BMI 34.0-34.9,adult Start:13-Aug-2021 Instruction Type:Patient Education Patient Instructions Indication:Temporary low platelet count Start:19-Mar-2021 Instruction Type:Provider Instructions for Treatment How to Access Health Informa tion Online using Patient Portal and [employer] Apps Indication:Nonsmoker Start:19-Mar-2021 Instruction Type:Patient Education Patient Instructions Indication:Acute sinusitis Start:24-Feb-2021 Instruction Type:Provider Instructions for Treatment How to Access Health Informa tion Online using Patient Portal and [employer] Apps Indication:Acute sinusitis Start:24-Feb-2021 Instruction Type:Patient Education How to access health informa tion online Indication:Nonsmoker Start:10-Jun-2020 Instruction Type:Patient Education How to access health informa tion online - Detail Indication:Nonsmoker Start:10-Jun-2020 Instruction Type:Patient Education Patient Instructions Indication:BMI 34.0-34.9,adult Start:10-Jun-2020 Instruction Type:Provider Instructions for Treatment How to access health informa tion online Indication:Nonsmoker Start:23-Feb-2020 Instruction Type:Patient Education How to access health informa tion online - Detail Indication:Nonsmoker Start:23-Feb-2020 Instruction Type:Patient Education Patient Instructions Indication:Nonsmoker Start:23-Feb-2020 Instruction Type:Provider Instructions for Treatment How to access health informa tion online Indication:Nonsmoker Start:21-Feb-2020 Instruction Type:Patient Education How to access health informa tion online - Detail Indication:Nonsmoker Start:21-Feb-2020 Instruction Type:Patient Education Patient Instructions Indication:Nonsmoker Start:21-Feb-2020 Instruction Type:Provider Instructions for Treatment How to access health informa tion online Indication:Nonsmoker Start:16-Feb-2020 Instruction Type:Patient Education How to access health informa tion online - Detail Indication:Nonsmoker Start:16-Feb-2020 Instruction Type:Patient Education Patient Instructions Indication:BMI 34.0-34.9,adult Start:16-Feb-2020 Instruction Type:Provider Instructions for Treatment How to access health informa tion online Indication:Nonsmoker Start:14-Dec-2019 Instruction Type:Patient Education How to access health informa tion online - Detail Indication:Nonsmoker Start:14-Dec-2019 Instruction Type:Patient Education Patient Instructions Indication:Cough Start:14-Dec-2019 Instruction Type:Provider Instructions for Treatment How to access health informa tion online Indication:Diabetes mellitus type II, controlled, with no complications (Renamed from Controlled type 2 diabetes mellitus without complication) Start:06-Nov-2019 Instruction Type:Patient Education How to access health informa tion online - Detail Indication:Diabetes mellitus type II, controlled, with no complications (Renamed from Controlled type 2 diabetes mellitus without complication) Start:06-Nov-2019 Instruction Type:Patient Education Patient Instructions Indication:Vitamin D deficiency Start:06-Nov-2019 Instruction Type:Provider Instructions for Treatment How to access health informa tion online Indication:Diabetes mellitus type II, controlled, with no complications (Renamed from Controlled type 2 diabetes mellitus without complication) Start:28-Aug-2019 Instruction Type:Patient Education How to access health informa tion online - Detail Indication:Diabetes mellitus type II, controlled, with no complications (Renamed from Controlled type 2 diabetes mellitus without complication) Start:28-Aug-2019 Instruction Type:Patient Education Patient Instructions Indication:BMI 33.0-33.9,adult Start:28-Aug-2019 Instruction Type:Provider Instructions for Treatment How to access health informa tion online Indication:Nonsmoker Start:03-Apr-2019 Instruction Type:Patient Education How to access health informa tion online - Detail Indication:Nonsmoker Start:03-Apr-2019 Instruction Type:Patient Education Patient Instructions Indication:Nonsmoker Start:03-Apr-2019 Instruction Type:Provider Instructions for Treatment How to access health informa tion online Indication:Diabetes mellitus type 2, uncontrolled (Renamed from Uncontrolled type 2 diabetes mellitus) Start:13-Mar-2019 Instruction Type:Patient Education How to access health informa tion online - Detail Indication:Diabetes mellitus type 2, uncontrolled (Renamed from Uncontrolled type 2 diabetes mellitus) Start:13-Mar-2019 Instruction Type:Patient Education Patient Instructions Indication:BMI 35.0-35.9,adult Start:13-Mar-2019 Instruction Type:Provider Instructions for Treatment How to access health informa tion online Indication:Diabetes mellitus type II, controlled, with no complications (Renamed from Controlled type 2 diabetes mellitus without complication) Start:19-Jan-2019 Instruction Type:Patient Education How to access health informa tion online - Detail Indication:Diabetes mellitus type II, controlled, with no complications (Renamed from Controlled type 2 diabetes mellitus without complication) Start:19-Jan-2019 Instruction Type:Patient Education Patient Instructions Indication:Hypothyroid Start:19-Jan-2019 Instruction Type:Provider Instructions for Treatment How to access health informa tion online Indication:Nonsmoker Start:05-Oct-2018 Instruction Type:Patient Education How to access health informa tion online - Detail Indication:Nonsmoker Start:05-Oct-2018 Instruction Type:Patient Education Patient Instructions Indication:Atypical lobular hyperplasia of right breast Start:05-Oct-2018 Instruction Type:Provider Instructions for Treatment How to access health informa tion online Indication:BMI 35.0-35.9,adult Start:16-Sep-2018 Instruction Type:Patient Education How to access health informa tion online - Detail Indication:BMI 35.0-35.9,adult Start:16-Sep-2018 Instruction Type:Patient Education Patient Instructions Indication:BMI 35.0-35.9,adult Start:16-Sep-2018 Instruction Type:Provider Instructions for Treatment How to access health informa tion online Indication:Nonsmoker Start:27-Jun-2018 Instruction Type:Patient Education How to access health informa tion online - Detail Indication:Nonsmoker Start:27-Jun-2018 Instruction Type:Patient Education Patient Instructions Indication:Elevated liver enzymes Start:27-Jun-2018 Instruction Type:Provider Instructions for Treatment How to access health informa tion online Indication:Diabetes mellitus type II, controlled, with no complications (Renamed from Controlled type 2 diabetes mellitus without complication) Start:14-Jun-2018 Instruction Type:Patient Education How to access health informa tion online - Detail Indication:Diabetes mellitus type II, controlled, with no complications (Renamed from Controlled type 2 diabetes mellitus without complication) Start:14-Jun-2018 Instruction Type:Patient Education Patient Instructions Indication:Diabetes mellitus type II, controlled, with no complications (Renamed from Controlled type 2 diabetes mellitus without complication) Start:14-Jun-2018 Instruction Type:Provider Instructions for Treatment How to access health informa tion online Indication:Diabetes mellitus type II, controlled, with no complications (Renamed from Controlled type 2 diabetes mellitus without complication) Start:15-Mar-2018 Instruction Type:Patient Education How to access health informa tion online - Detail Indication:Diabetes mellitus type II, controlled, with no complications (Renamed from Controlled type 2 diabetes mellitus without complication) Start:15-Mar-2018 Instruction Type:Patient Education Patient Instructions Indication:Diabetes mellitus type II, controlled, with no complications (Renamed from Controlled type 2 diabetes mellitus without complication) Start:15-Mar-2018 Instruction Type:Provider Instructions for Treatment How to access health informa tion online Indication:Diabetes mellitus type II, controlled, with no complications (Renamed from Controlled type 2 diabetes mellitus without complication) Start:06-Dec-2017 Instruction Type:Patient Education How to access health informa tion online - Detail Indication:Diabetes mellitus type II, controlled, with no complications (Renamed from Controlled type 2 diabetes mellitus without complication) Start:06-Dec-2017 Instruction Type:Patient Education Patient Instructions Indication:Diabetes mellitus type II, controlled, with no complications (Renamed from Controlled type 2 diabetes mellitus without complication) Start:06-Dec-2017 Instruction Type:Provider Instructions for Treatment How to access health informa tion online Indication:Nonsmoker Start:30-Nov-2017 Instruction Type:Patient Education How to access health informa tion online - Detail Indication:Nonsmoker Start:30-Nov-2017 Instruction Type:Patient Education Patient Instructions Indication:Sinusitis, bacterial Start:30-Nov-2017 Instruction Type:Provider Instructions for Treatment How to access health informa tion online Indication:Diabetes mellitus type II, controlled, with no complications (Renamed from Controlled type 2 diabetes mellitus without complication) Start:10-Aug-2017 Instruction Type:Patient Education How to access health informa tion online - Detail Indication:Diabetes mellitus type II, controlled, with no complications (Renamed from Controlled type 2 diabetes mellitus without complication) Start:10-Aug-2017 Instruction Type:Patient Education Patient Instructions Indication:Diabetes mellitus type II, controlled, with no complications (Renamed from Controlled type 2 diabetes mellitus without complication) Start:10-Aug-2017 Instruction Type:Provider Instructions for Treatment How to access health informa tion online Indication:Uncontrolled type 2 diabetes mellitus without complication, without long-term current use of insulin Start:07-May-2017 Instruction Type:Patient Education How to access health informa tion online - Detail Indication:Uncontrolled type 2 diabetes mellitus without complication, without long-term current use of insulin Start:07-May-2017 Instruction Type:Patient Education Patient Instructions Indication:Uncontrolled type 2 diabetes mellitus without complication, without long-term current use of insulin Start:07-May-2017 Instruction Type:Provider Instructions for Treatment Patient Instructions Indication:Nonsmoker Start:09-Feb-2017 Instruction Type:Provider Instructions for Treatment How to access health [employer] online Indication:Uncontrolled type 2 diabetes mellitus without complication, without long-term current use of insulin Start:09-Dec-2016 Instruction Type:Patient Education How to access health informa [employer] online - Detail Indication:Uncontrolled type 2 diabetes mellitus without complication, without long-term current use of insulin Start:09-Dec-2016 Instruction Type:Patient Education Patient Instructions Indication:Uncontrolled type 2 diabetes mellitus without complication, without long-term current use of insulin Start:09-Dec-2016 Instruction Type:Provider Instructions for Treatment DISCONTINUED - LIPID PANEL ( 55512) Indication:Hypercholesteremia Start:13-Oct-2016 Instruction Type:Patient Education DISCONTINUED - Glucose, PP/2 Hour (36137) Indication:Family history of diabetes mellitus Start:13-Oct-2016 Instruction Type:Patient Education DISCONTINUED - Hemoglobin Glyclated (HGB A1C) (91637) Indication:Family history of diabetes mellitus Start:13-Oct-2016 Instruction Type:Patient Education How to access health [employer] online Indication:Uncontrolled type 2 diabetes mellitus without complication, without long-term current use of insulin Start:13-Oct-2016 Instruction Type:Patient Education How to access health informa [employer] online - Detail Indication:Uncontrolled type 2 diabetes mellitus without complication, without long-term current use of insulin Start:13-Oct-2016 Instruction Type:Patient Education Patient Instructions Indication:Uncontrolled type 2 diabetes mellitus without complication, without long-term current use of insulin Start:13-Oct-2016 Instruction Type:Provider Instructions for Treatment Patient Instructions Indication:Nonsmoker Start:30-Sep-2016 Instruction Type:Provider Instructions for Treatment How to access health [employer] Indication:Uncontrolled type 2 diabetes mellitus without complication, without long-term current use of insulin Start:30-Sep-2016 Instruction Type:Patient Education How to access health informa [employer] online - Detail Indication:Uncontrolled type 2 diabetes mellitus without complication, without long-term current use of insulin Start:30-Sep-2016 Instruction Type:Patient Education Patient Instructions Indication:Hypothyroid Start:28-Aug-2013 Instruction Type:Provider Instructions for Treatment Patient Instructions Indication:Family history of diabetes mellitus Start:06-Mar-2013 Instruction Type:Provider Instructions for Treatment [facility]; [facility] Work Phone: Instructions* Name Dates Details How to access health informa tion online Indication:Nonsmoker Start:10-Jun-2020 Instruction Type:Patient Education How to access health informa tion online - Detail Indication:Nonsmoker Start:10-Jun-2020 Instruction Type:Patient Education Patient Instructions Indication:BMI 34.0-34.9,adult Start:10-Jun-2020 Instruction Type:Provider Instructions for Treatment How to access health informa tion online Indication:Nonsmoker Start:23-Feb-2020 Instruction Type:Patient Education How to access health informa tion online - Detail Indication:Nonsmoker Start:23-Feb-2020 Instruction Type:Patient Education Patient Instructions Indication:Nonsmoker Start:23-Feb-2020 Instruction Type:Provider Instructions for Treatment How to access health informa tion online Indication:Nonsmoker Start:21-Feb-2020 Instruction Type:Patient Education How to access health informa tion online - Detail Indication:Nonsmoker Start:21-Feb-2020 Instruction Type:Patient Education Patient Instructions Indication:Nonsmoker Start:21-Feb-2020 Instruction Type:Provider Instructions for Treatment How to access health informa tion online Indication:Nonsmoker Start:16-Feb-2020 Instruction Type:Patient Education How to access health informa tion online - Detail Indication:Nonsmoker Start:16-Feb-2020 Instruction Type:Patient Education Patient Instructions Indication:BMI 34.0-34.9,adult Start:16-Feb-2020 Instruction Type:Provider Instructions for Treatment How to access health informa tion online Indication:Nonsmoker Start:14-Dec-2019 Instruction Type:Patient Education How to access health informa tion online - Detail Indication:Nonsmoker Start:14-Dec-2019 Instruction Type:Patient Education Patient Instructions Indication:Cough Start:14-Dec-2019 Instruction Type:Provider Instructions for Treatment How to access health informa tion online Indication:Diabetes mellitus type II, controlled, with no complications (Renamed from Controlled type 2 diabetes mellitus without complication) Start:06-Nov-2019 Instruction Type:Patient Education How to access health informa tion online - Detail Indication:Diabetes mellitus type II, controlled, with no complications (Renamed from Controlled type 2 diabetes mellitus without complication) Start:06-Nov-2019 Instruction Type:Patient Education Patient Instructions Indication:Vitamin D deficiency Start:06-Nov-2019 Instruction Type:Provider Instructions for Treatment How to access health informa tion online Indication:Diabetes mellitus type II, controlled, with no complications (Renamed from Controlled type 2 diabetes mellitus without complication) Start:28-Aug-2019 Instruction Type:Patient Education How to access health informa tion online - Detail Indication:Diabetes mellitus type II, controlled, with no complications (Renamed from Controlled type 2 diabetes mellitus without complication) Start:28-Aug-2019 Instruction Type:Patient Education Patient Instructions Indication:BMI 33.0-33.9,adult Start:28-Aug-2019 Instruction Type:Provider Instructions for Treatment How to access health informa tion online Indication:Nonsmoker Start:03-Apr-2019 Instruction Type:Patient Education How to access health informa tion online - Detail Indication:Nonsmoker Start:03-Apr-2019 Instruction Type:Patient Education Patient Instructions Indication:Nonsmoker Start:03-Apr-2019 Instruction Type:Provider Instructions for Treatment How to access health informa tion online Indication:Diabetes mellitus type 2, uncontrolled (Renamed from Uncontrolled type 2 diabetes mellitus) Start:13-Mar-2019 Instruction Type:Patient Education How to access health informa tion online - Detail Indication:Diabetes mellitus type 2, uncontrolled (Renamed from Uncontrolled type 2 diabetes mellitus) Start:13-Mar-2019 Instruction Type:Patient Education Patient Instructions Indication:BMI 35.0-35.9,adult Start:13-Mar-2019 Instruction Type:Provider Instructions for Treatment How to access health informa tion online Indication:Diabetes mellitus type II, controlled, with no complications (Renamed from Controlled type 2 diabetes mellitus without complication) Start:19-Jan-2019 Instruction Type:Patient Education How to access health informa tion online - Detail Indication:Diabetes mellitus type II, controlled, with no complications (Renamed from Controlled type 2 diabetes mellitus without complication) Start:19-Jan-2019 Instruction Type:Patient Education Patient Instructions Indication:Hypothyroid Start:19-Jan-2019 Instruction Type:Provider Instructions for Treatment How to access health informa tion online Indication:Nonsmoker Start:05-Oct-2018 Instruction Type:Patient Education How to access health informa tion online - Detail Indication:Nonsmoker Start:05-Oct-2018 Instruction Type:Patient Education Patient Instructions Indication:Atypical lobular hyperplasia of right breast Start:05-Oct-2018 Instruction Type:Provider Instructions for Treatment How to access health informa tion online Indication:BMI 35.0-35.9,adult Start:16-Sep-2018 Instruction Type:Patient Education How to access health informa tion online - Detail Indication:BMI 35.0-35.9,adult Start:16-Sep-2018 Instruction Type:Patient Education Patient Instructions Indication:BMI 35.0-35.9,adult Start:16-Sep-2018 Instruction Type:Provider Instructions for Treatment How to access health informa tion online Indication:Nonsmoker Start:27-Jun-2018 Instruction Type:Patient Education How to access health informa tion online - Detail Indication:Nonsmoker Start:27-Jun-2018 Instruction Type:Patient Education Patient Instructions Indication:Elevated liver enzymes Start:27-Jun-2018 Instruction Type:Provider Instructions for Treatment How to access health informa tion online Indication:Diabetes mellitus type II, controlled, with no complications (Renamed from Controlled type 2 diabetes mellitus without complication) Start:14-Jun-2018 Instruction Type:Patient Education How to access health informa tion online - Detail Indication:Diabetes mellitus type II, controlled, with no complications (Renamed from Controlled type 2 diabetes mellitus without complication) Start:14-Jun-2018 Instruction Type:Patient Education Patient Instructions Indication:Diabetes mellitus type II, controlled, with no complications (Renamed from Controlled type 2 diabetes mellitus without complication) Start:14-Jun-2018 Instruction Type:Provider Instructions for Treatment How to access health informa tion online Indication:Diabetes mellitus type II, controlled, with no complications (Renamed from Controlled type 2 diabetes mellitus without complication) Start:15-Mar-2018 Instruction Type:Patient Education How to access health informa tion online - Detail Indication:Diabetes mellitus type II, controlled, with no complications (Renamed from Controlled type 2 diabetes mellitus without complication) Start:15-Mar-2018 Instruction Type:Patient Education Patient Instructions Indication:Diabetes mellitus type II, controlled, with no complications (Renamed from Controlled type 2 diabetes mellitus without complication) Start:15-Mar-2018 Instruction Type:Provider Instructions for Treatment How to access health informa tion online Indication:Diabetes mellitus type II, controlled, with no complications (Renamed from Controlled type 2 diabetes mellitus without complication) Start:06-Dec-2017 Instruction Type:Patient Education How to access health informa tion online - Detail Indication:Diabetes mellitus type II, controlled, with no complications (Renamed from Controlled type 2 diabetes mellitus without complication) Start:06-Dec-2017 Instruction Type:Patient Education Patient Instructions Indication:Diabetes mellitus type II, controlled, with no complications (Renamed from Controlled type 2 diabetes mellitus without complication) Start:06-Dec-2017 Instruction Type:Provider Instructions for Treatment How to access health informa tion online Indication:Nonsmoker Start:30-Nov-2017 Instruction Type:Patient Education How to access health informa tion online - Detail Indication:Nonsmoker Start:30-Nov-2017 Instruction Type:Patient Education Patient Instructions Indication:Sinusitis, bacterial Start:30-Nov-2017 Instruction Type:Provider Instructions for Treatment How to access health informa tion online Indication:Diabetes mellitus type II, controlled, with no complications (Renamed from Controlled type 2 diabetes mellitus without complication) Start:10-Aug-2017 Instruction Type:Patient Education How to access health informa tion online - Detail Indication:Diabetes mellitus type II, controlled, with no complications (Renamed from Controlled type 2 diabetes mellitus without complication) Start:10-Aug-2017 Instruction Type:Patient Education Patient Instructions Indication:Diabetes mellitus type II, controlled, with no complications (Renamed from Controlled type 2 diabetes mellitus without complication) Start:10-Aug-2017 Instruction Type:Provider Instructions for Treatment How to access health informa tion online Indication:Uncontrolled type 2 diabetes mellitus without complication, without long-term current use of insulin Start:07-May-2017 Instruction Type:Patient Education How to access health informa tion online - Detail Indication:Uncontrolled type 2 diabetes mellitus without complication, without long-term current use of insulin Start:07-May-2017 Instruction Type:Patient Education Patient Instructions Indication:Uncontrolled type 2 diabetes mellitus without complication, without long-term current use of insulin Start:07-May-2017 Instruction Type:Provider Instructions for Treatment Patient Instructions Indication:Nonsmoker Start:09-Feb-2017 Instruction Type:Provider Instructions for Treatment How to access health informa tion online Indication:Uncontrolled type 2 diabetes mellitus without complication, without long-term current use of insulin Start:09-Dec-2016 Instruction Type:Patient Education How to access health informa tion online - Detail Indication:Uncontrolled type 2 diabetes mellitus without complication, without long-term current use of insulin Start:09-Dec-2016 Instruction Type:Patient Education Patient Instructions Indication:Uncontrolled type 2 diabetes mellitus without complication, without long-term current use of insulin Start:09-Dec-2016 Instruction Type:Provider Instructions for Treatment DISCONTINUED - LIPID PANEL ( [id number]) Indication:Hypercholesteremia Start:13-Oct-2016 Instruction Type:Patient Education DISCONTINUED - Glucose, PP/2 Hour ([id number]) Indication:Family history of diabetes mellitus Start:13-Oct-2016 Instruction Type:Patient Education DISCONTINUED - Hemoglobin Glyclated (HGB A1C) ([id number]) Indication:Family history of diabetes mellitus Start:13-Oct-2016 Instruction Type:Patient Education How to access health [employer] online Indication:Uncontrolled type 2 diabetes mellitus without complication, without long-term current use of insulin Start:13-Oct-2016 Instruction Type:Patient Education How to access health informa tion online - Detail Indication:Uncontrolled type 2 diabetes mellitus without complication, without long-term current use of insulin Start:13-Oct-2016 Instruction Type:Patient Education Patient Instructions Indication:Uncontrolled type 2 diabetes mellitus without complication, without long-term current use of insulin Start:13-Oct-2016 Instruction Type:Provider Instructions for Treatment Patient Instructions Indication:Nonsmoker Start:30-Sep-2016 Instruction Type:Provider Instructions for Treatment How to access health informa [employer] online Indication:Uncontrolled type 2 diabetes mellitus without complication, without long-term current use of insulin Start:30-Sep-2016 Instruction Type:Patient Education How to access health informa tion online - Detail Indication:Uncontrolled type 2 diabetes mellitus without complication, without long-term current use of insulin Start:30-Sep-2016 Instruction Type:Patient Education Patient Instructions Indication:Hypothyroid Start:28-Aug-2013 Instruction Type:Provider Instructions for Treatment Patient Instructions Indication:Family history of diabetes mellitus Start:06-Mar-2013 Instruction Type:Provider Instructions for Treatment [facility] Work Phone: Instructions* Name Dates Details Patient Instructions Indication:Diabetes mellitus type II, controlled, with no complications (Renamed from Controlled type 2 diabetes mellitus without complication) Start:27-Feb-2022 Instruction Type:Provider Instructions for Treatment How to Access Health [employer] Online using Patient Portal and [employer] Apps Indication:Diabetes mellitus type II, controlled, with no complications (Renamed from Controlled type 2 diabetes mellitus without complication) Start:27-Feb-2022 Instruction Type:Patient Education Patient Instructions Indication:BMI 33.0-33.9,adult Start:18-Nov-2021 Instruction Type:Provider Instructions for Treatment How to Access Health Informa tion Online using Patient Portal and [employer] Apps Indication:Diabetes mellitus type II, controlled, with no complications (Renamed from Controlled type 2 diabetes mellitus without complication) Start:18-Nov-2021 Instruction Type:Patient Education Patient Instructions Indication:Vitamin D deficiency Start:13-Aug-2021 Instruction Type:Provider Instructions for Treatment How to Access Health Informa tion Online using Patient Portal and [employer] Apps Indication:BMI 34.0-34.9,adult Start:13-Aug-2021 Instruction Type:Patient Education Patient Instructions Indication:Temporary low platelet count Start:19-Mar-2021 Instruction Type:Provider Instructions for Treatment How to Access Health Informa tion Online using Patient Portal and [employer] Apps Indication:Nonsmoker Start:19-Mar-2021 Instruction Type:Patient Education Patient Instructions Indication:Acute sinusitis Start:24-Feb-2021 Instruction Type:Provider Instructions for Treatment How to Access Health Informa tion Online using Patient Portal and [employer] Apps Indication:Acute sinusitis Start:24-Feb-2021 Instruction Type:Patient Education How to access health informa tion online Indication:Nonsmoker Start:10-Jun-2020 Instruction Type:Patient Education How to access health informa tion online - Detail Indication:Nonsmoker Start:10-Jun-2020 Instruction Type:Patient Education Patient Instructions Indication:BMI 34.0-34.9,adult Start:10-Jun-2020 Instruction Type:Provider Instructions for Treatment How to access health informa tion online Indication:Nonsmoker Start:23-Feb-2020 Instruction Type:Patient Education How to access health informa tion online - Detail Indication:Nonsmoker Start:23-Feb-2020 Instruction Type:Patient Education Patient Instructions Indication:Nonsmoker Start:23-Feb-2020 Instruction Type:Provider Instructions for Treatment How to access health informa tion online Indication:Nonsmoker Start:21-Feb-2020 Instruction Type:Patient Education How to access health informa tion online - Detail Indication:Nonsmoker Start:21-Feb-2020 Instruction Type:Patient Education Patient Instructions Indication:Nonsmoker Start:21-Feb-2020 Instruction Type:Provider Instructions for Treatment How to access health informa tion online Indication:Nonsmoker Start:16-Feb-2020 Instruction Type:Patient Education How to access health informa tion online - Detail Indication:Nonsmoker Start:16-Feb-2020 Instruction Type:Patient Education Patient Instructions Indication:BMI 34.0-34.9,adult Start:16-Feb-2020 Instruction Type:Provider Instructions for Treatment How to access health informa tion online Indication:Nonsmoker Start:14-Dec-2019 Instruction Type:Patient Education How to access health informa tion online - Detail Indication:Nonsmoker Start:14-Dec-2019 Instruction Type:Patient Education Patient Instructions Indication:Cough Start:14-Dec-2019 Instruction Type:Provider Instructions for Treatment How to access health informa tion online Indication:Diabetes mellitus type II, controlled, with no complications (Renamed from Controlled type 2 diabetes mellitus without complication) Start:06-Nov-2019 Instruction Type:Patient Education How to access health informa tion online - Detail Indication:Diabetes mellitus type II, controlled, with no complications (Renamed from Controlled type 2 diabetes mellitus without complication) Start:06-Nov-2019 Instruction Type:Patient Education Patient Instructions Indication:Vitamin D deficiency Start:06-Nov-2019 Instruction Type:Provider Instructions for Treatment How to access health informa tion online Indication:Diabetes mellitus type II, controlled, with no complications (Renamed from Controlled type 2 diabetes mellitus without complication) Start:28-Aug-2019 Instruction Type:Patient Education How to access health informa tion online - Detail Indication:Diabetes mellitus type II, controlled, with no complications (Renamed from Controlled type 2 diabetes mellitus without complication) Start:28-Aug-2019 Instruction Type:Patient Education Patient Instructions Indication:BMI 33.0-33.9,adult Start:28-Aug-2019 Instruction Type:Provider Instructions for Treatment How to access health informa tion online Indication:Nonsmoker Start:03-Apr-2019 Instruction Type:Patient Education How to access health informa tion online - Detail Indication:Nonsmoker Start:03-Apr-2019 Instruction Type:Patient Education Patient Instructions Indication:Nonsmoker Start:03-Apr-2019 Instruction Type:Provider Instructions for Treatment How to access health informa tion online Indication:Diabetes mellitus type 2, uncontrolled (Renamed from Uncontrolled type 2 diabetes mellitus) Start:13-Mar-2019 Instruction Type:Patient Education How to access health informa tion online - Detail Indication:Diabetes mellitus type 2, uncontrolled (Renamed from Uncontrolled type 2 diabetes mellitus) Start:13-Mar-2019 Instruction Type:Patient Education Patient Instructions Indication:BMI 35.0-35.9,adult Start:13-Mar-2019 Instruction Type:Provider Instructions for Treatment How to access health informa tion online Indication:Diabetes mellitus type II, controlled, with no complications (Renamed from Controlled type 2 diabetes mellitus without complication) Start:19-Jan-2019 Instruction Type:Patient Education How to access health informa tion online - Detail Indication:Diabetes mellitus type II, controlled, with no complications (Renamed from Controlled type 2 diabetes mellitus without complication) Start:19-Jan-2019 Instruction Type:Patient Education Patient Instructions Indication:Hypothyroid Start:19-Jan-2019 Instruction Type:Provider Instructions for Treatment How to access health informa tion online Indication:Nonsmoker Start:05-Oct-2018 Instruction Type:Patient Education How to access health informa tion online - Detail Indication:Nonsmoker Start:05-Oct-2018 Instruction Type:Patient Education Patient Instructions Indication:Atypical lobular hyperplasia of right breast Start:05-Oct-2018 Instruction Type:Provider Instructions for Treatment How to access health informa tion online Indication:BMI 35.0-35.9,adult Start:16-Sep-2018 Instruction Type:Patient Education How to access health informa tion online - Detail Indication:BMI 35.0-35.9,adult Start:16-Sep-2018 Instruction Type:Patient Education Patient Instructions Indication:BMI 35.0-35.9,adult Start:16-Sep-2018 Instruction Type:Provider Instructions for Treatment How to access health informa tion online Indication:Nonsmoker Start:27-Jun-2018 Instruction Type:Patient Education How to access health informa tion online - Detail Indication:Nonsmoker Start:27-Jun-2018 Instruction Type:Patient Education Patient Instructions Indication:Elevated liver enzymes Start:27-Jun-2018 Instruction Type:Provider Instructions for Treatment How to access health informa tion online Indication:Diabetes mellitus type II, controlled, with no complications (Renamed from Controlled type 2 diabetes mellitus without complication) Start:14-Jun-2018 Instruction Type:Patient Education How to access health informa tion online - Detail Indication:Diabetes mellitus type II, controlled, with no complications (Renamed from Controlled type 2 diabetes mellitus without complication) Start:14-Jun-2018 Instruction Type:Patient Education Patient Instructions Indication:Diabetes mellitus type II, controlled, with no complications (Renamed from Controlled type 2 diabetes mellitus without complication) Start:14-Jun-2018 Instruction Type:Provider Instructions for Treatment How to access health informa tion online Indication:Diabetes mellitus type II, controlled, with no complications (Renamed from Controlled type 2 diabetes mellitus without complication) Start:15-Mar-2018 Instruction Type:Patient Education How to access health informa tion online - Detail Indication:Diabetes mellitus type II, controlled, with no complications (Renamed from Controlled type 2 diabetes mellitus without complication) Start:15-Mar-2018 Instruction Type:Patient Education Patient Instructions Indication:Diabetes mellitus type II, controlled, with no complications (Renamed from Controlled type 2 diabetes mellitus without complication) Start:15-Mar-2018 Instruction Type:Provider Instructions for Treatment How to access health informa tion online Indication:Diabetes mellitus type II, controlled, with no complications (Renamed from Controlled type 2 diabetes mellitus without complication) Start:06-Dec-2017 Instruction Type:Patient Education How to access health informa tion online - Detail Indication:Diabetes mellitus type II, controlled, with no complications (Renamed from Controlled type 2 diabetes mellitus without complication) Start:06-Dec-2017 Instruction Type:Patient Education Patient Instructions Indication:Diabetes mellitus type II, controlled, with no complications (Renamed from Controlled type 2 diabetes mellitus without complication) Start:06-Dec-2017 Instruction Type:Provider Instructions for Treatment How to access health informa tion online Indication:Nonsmoker Start:30-Nov-2017 Instruction Type:Patient Education How to access health informa tion online - Detail Indication:Nonsmoker Start:30-Nov-2017 Instruction Type:Patient Education Patient Instructions Indication:Sinusitis, bacterial Start:30-Nov-2017 Instruction Type:Provider Instructions for Treatment How to access health informa tion online Indication:Diabetes mellitus type II, controlled, with no complications (Renamed from Controlled type 2 diabetes mellitus without complication) Start:10-Aug-2017 Instruction Type:Patient Education How to access health informa tion online - Detail Indication:Diabetes mellitus type II, controlled, with no complications (Renamed from Controlled type 2 diabetes mellitus without complication) Start:10-Aug-2017 Instruction Type:Patient Education Patient Instructions Indication:Diabetes mellitus type II, controlled, with no complications (Renamed from Controlled type 2 diabetes mellitus without complication) Start:10-Aug-2017 Instruction Type:Provider Instructions for Treatment How to access health informa tion online Indication:Uncontrolled type 2 diabetes mellitus without complication, without long-term current use of insulin Start:07-May-2017 Instruction Type:Patient Education How to access health informa tion online - Detail Indication:Uncontrolled type 2 diabetes mellitus without complication, without long-term current use of insulin Start:07-May-2017 Instruction Type:Patient Education Patient Instructions Indication:Uncontrolled type 2 diabetes mellitus without complication, without long-term current use of insulin Start:07-May-2017 Instruction Type:Provider Instructions for Treatment Patient Instructions Indication:Nonsmoker Start:09-Feb-2017 Instruction Type:Provider Instructions for Treatment How to access health informa [employer] online Indication:Uncontrolled type 2 diabetes mellitus without complication, without long-term current use of insulin Start:09-Dec-2016 Instruction Type:Patient Education How to access health informa [employer] online - Detail Indication:Uncontrolled type 2 diabetes mellitus without complication, without long-term current use of insulin Start:09-Dec-2016 Instruction Type:Patient Education Patient Instructions Indication:Uncontrolled type 2 diabetes mellitus without complication, without long-term current use of insulin Start:09-Dec-2016 Instruction Type:Provider Instructions for Treatment DISCONTINUED - LIPID PANEL ( [id number]) Indication:Hypercholesteremia Start:13-Oct-2016 Instruction Type:Patient Education DISCONTINUED - Glucose, PP/2 Hour (57113) Indication:Family history of diabetes mellitus Start:13-Oct-2016 Instruction Type:Patient Education DISCONTINUED - Hemoglobin Glyclated (HGB A1C) (36685) Indication:Family history of diabetes mellitus Start:13-Oct-2016 Instruction Type:Patient Education How to access health [employer] online Indication:Uncontrolled type 2 diabetes mellitus without complication, without long-term current use of insulin Start:13-Oct-2016 Instruction Type:Patient Education How to access health informa [employer] online - Detail Indication:Uncontrolled type 2 diabetes mellitus without complication, without long-term current use of insulin Start:13-Oct-2016 Instruction Type:Patient Education Patient Instructions Indication:Uncontrolled type 2 diabetes mellitus without complication, without long-term current use of insulin Start:13-Oct-2016 Instruction Type:Provider Instructions for Treatment Patient Instructions Indication:Nonsmoker Start:30-Sep-2016 Instruction Type:Provider Instructions for Treatment How to access [employer] Indication:Uncontrolled type 2 diabetes mellitus without complication, without long-term current use of insulin Start:30-Sep-2016 Instruction Type:Patient Education How to access health informa tion online - Detail Indication:Uncontrolled type 2 diabetes mellitus without complication, without long-term current use of insulin Start:30-Sep-2016 Instruction Type:Patient Education Patient Instructions Indication:Hypothyroid Start:28-Aug-2013 Instruction Type:Provider Instructions for Treatment Patient Instructions Indication:Family history of diabetes mellitus Start:06-Mar-2013 Instruction Type:Provider Instructions for Treatment [facility]; [facility] Work Phone: Instructions* Name Dates Details Patient Instructions Indication:Diabetes mellitus type II, controlled, with no complications (Renamed from Controlled type 2 diabetes mellitus without complication) Start:27-Feb-2022 Instruction Type:Provider Instructions for Treatment How to Access Health Informa tion Online using Patient Portal and [employer]rd [employer] Apps Indication:Diabetes mellitus type II, controlled, with no complications (Renamed from Controlled type 2 diabetes mellitus without complication) Start:27-Feb-2022 Instruction Type:Patient Education Patient Instructions Indication:BMI 33.0-33.9,adult Start:18-Nov-2021 Instruction Type:Provider Instructions for Treatment How to Access Health Informa tion Online using Patient Portal and [employer]rd [employer] Apps Indication:Diabetes mellitus type II, controlled, with no complications (Renamed from Controlled type 2 diabetes mellitus without complication) Start:18-Nov-2021 Instruction Type:Patient Education Patient Instructions Indication:Vitamin D deficiency Start:13-Aug-2021 Instruction Type:Provider Instructions for Treatment How to Access Health Informa tion Online using Patient Portal and [employer] Apps Indication:BMI 34.0-34.9,adult Start:13-Aug-2021 Instruction Type:Patient Education Patient Instructions Indication:Temporary low platelet count Start:19-Mar-2021 Instruction Type:Provider Instructions for Treatment How to Access Health Informa tion Online using Patient Portal and [employer]rd [employer] Apps Indication:Nonsmoker Start:19-Mar-2021 Instruction Type:Patient Education Patient Instructions Indication:Acute sinusitis Start:24-Feb-2021 Instruction Type:Provider Instructions for Treatment How to Access Health Informa tion Online using Patient Portal and [employer]rd [employer] Apps Indication:Acute sinusitis Start:24-Feb-2021 Instruction Type:Patient Education How to access health informa tion online Indication:Nonsmoker Start:10-Jun-2020 Instruction Type:Patient Education How to access health informa tion online - Detail Indication:Nonsmoker Start:10-Jun-2020 Instruction Type:Patient Education Patient Instructions Indication:BMI 34.0-34.9,adult Start:10-Jun-2020 Instruction Type:Provider Instructions for Treatment How to access health informa tion online Indication:Nonsmoker Start:23-Feb-2020 Instruction Type:Patient Education How to access health informa tion online - Detail Indication:Nonsmoker Start:23-Feb-2020 Instruction Type:Patient Education Patient Instructions Indication:Nonsmoker Start:23-Feb-2020 Instruction Type:Provider Instructions for Treatment How to access health informa tion online Indication:Nonsmoker Start:21-Feb-2020 Instruction Type:Patient Education How to access health informa tion online - Detail Indication:Nonsmoker Start:21-Feb-2020 Instruction Type:Patient Education Patient Instructions Indication:Nonsmoker Start:21-Feb-2020 Instruction Type:Provider Instructions for Treatment How to access health informa tion online Indication:Nonsmoker Start:16-Feb-2020 Instruction Type:Patient Education How to access health informa tion online - Detail Indication:Nonsmoker Start:16-Feb-2020 Instruction Type:Patient Education Patient Instructions Indication:BMI 34.0-34.9,adult Start:16-Feb-2020 Instruction Type:Provider Instructions for Treatment How to access health informa tion online Indication:Nonsmoker Start:14-Dec-2019 Instruction Type:Patient Education How to access health informa tion online - Detail Indication:Nonsmoker Start:14-Dec-2019 Instruction Type:Patient Education Patient Instructions Indication:Cough Start:14-Dec-2019 Instruction Type:Provider Instructions for Treatment How to access health informa tion online Indication:Diabetes mellitus type II, controlled, with no complications (Renamed from Controlled type 2 diabetes mellitus without complication) Start:06-Nov-2019 Instruction Type:Patient Education How to access health informa tion online - Detail Indication:Diabetes mellitus type II, controlled, with no complications (Renamed from Controlled type 2 diabetes mellitus without complication) Start:06-Nov-2019 Instruction Type:Patient Education Patient Instructions Indication:Vitamin D deficiency Start:06-Nov-2019 Instruction Type:Provider Instructions for Treatment How to access health informa tion online Indication:Diabetes mellitus type II, controlled, with no complications (Renamed from Controlled type 2 diabetes mellitus without complication) Start:28-Aug-2019 Instruction Type:Patient Education How to access health informa tion online - Detail Indication:Diabetes mellitus type II, controlled, with no complications (Renamed from Controlled type 2 diabetes mellitus without complication) Start:28-Aug-2019 Instruction Type:Patient Education Patient Instructions Indication:BMI 33.0-33.9,adult Start:28-Aug-2019 Instruction Type:Provider Instructions for Treatment How to access health informa tion online Indication:Nonsmoker Start:03-Apr-2019 Instruction Type:Patient Education How to access health informa tion online - Detail Indication:Nonsmoker Start:03-Apr-2019 Instruction Type:Patient Education Patient Instructions Indication:Nonsmoker Start:03-Apr-2019 Instruction Type:Provider Instructions for Treatment How to access health informa tion online Indication:Diabetes mellitus type 2, uncontrolled (Renamed from Uncontrolled type 2 diabetes mellitus) Start:13-Mar-2019 Instruction Type:Patient Education How to access health informa tion online - Detail Indication:Diabetes mellitus type 2, uncontrolled (Renamed from Uncontrolled type 2 diabetes mellitus) Start:13-Mar-2019 Instruction Type:Patient Education Patient Instructions Indication:BMI 35.0-35.9,adult Start:13-Mar-2019 Instruction Type:Provider Instructions for Treatment How to access health informa tion online Indication:Diabetes mellitus type II, controlled, with no complications (Renamed from Controlled type 2 diabetes mellitus without complication) Start:19-Jan-2019 Instruction Type:Patient Education How to access health informa tion online - Detail Indication:Diabetes mellitus type II, controlled, with no complications (Renamed from Controlled type 2 diabetes mellitus without complication) Start:19-Jan-2019 Instruction Type:Patient Education Patient Instructions Indication:Hypothyroid Start:19-Jan-2019 Instruction Type:Provider Instructions for Treatment How to access health informa tion online Indication:Nonsmoker Start:05-Oct-2018 Instruction Type:Patient Education How to access health informa tion online - Detail Indication:Nonsmoker Start:05-Oct-2018 Instruction Type:Patient Education Patient Instructions Indication:Atypical lobular hyperplasia of right breast Start:05-Oct-2018 Instruction Type:Provider Instructions for Treatment How to access health informa tion online Indication:BMI 35.0-35.9,adult Start:16-Sep-2018 Instruction Type:Patient Education How to access health informa tion online - Detail Indication:BMI 35.0-35.9,adult Start:16-Sep-2018 Instruction Type:Patient Education Patient Instructions Indication:BMI 35.0-35.9,adult Start:16-Sep-2018 Instruction Type:Provider Instructions for Treatment How to access health informa tion online Indication:Nonsmoker Start:27-Jun-2018 Instruction Type:Patient Education How to access health informa tion online - Detail Indication:Nonsmoker Start:27-Jun-2018 Instruction Type:Patient Education Patient Instructions Indication:Elevated liver enzymes Start:27-Jun-2018 Instruction Type:Provider Instructions for Treatment How to access health informa tion online Indication:Diabetes mellitus type II, controlled, with no complications (Renamed from Controlled type 2 diabetes mellitus without complication) Start:14-Jun-2018 Instruction Type:Patient Education How to access health informa tion online - Detail Indication:Diabetes mellitus type II, controlled, with no complications (Renamed from Controlled type 2 diabetes mellitus without complication) Start:14-Jun-2018 Instruction Type:Patient Education Patient Instructions Indication:Diabetes mellitus type II, controlled, with no complications (Renamed from Controlled type 2 diabetes mellitus without complication) Start:14-Jun-2018 Instruction Type:Provider Instructions for Treatment How to access health informa tion online Indication:Diabetes mellitus type II, controlled, with no complications (Renamed from Controlled type 2 diabetes mellitus without complication) Start:15-Mar-2018 Instruction Type:Patient Education How to access health informa tion online - Detail Indication:Diabetes mellitus type II, controlled, with no complications (Renamed from Controlled type 2 diabetes mellitus without complication) Start:15-Mar-2018 Instruction Type:Patient Education Patient Instructions Indication:Diabetes mellitus type II, controlled, with no complications (Renamed from Controlled type 2 diabetes mellitus without complication) Start:15-Mar-2018 Instruction Type:Provider Instructions for Treatment How to access health informa tion online Indication:Diabetes mellitus type II, controlled, with no complications (Renamed from Controlled type 2 diabetes mellitus without complication) Start:06-Dec-2017 Instruction Type:Patient Education How to access health informa tion online - Detail Indication:Diabetes mellitus type II, controlled, with no complications (Renamed from Controlled type 2 diabetes mellitus without complication) Start:06-Dec-2017 Instruction Type:Patient Education Patient Instructions Indication:Diabetes mellitus type II, controlled, with no complications (Renamed from Controlled type 2 diabetes mellitus without complication) Start:06-Dec-2017 Instruction Type:Provider Instructions for Treatment How to access health informa tion online Indication:Nonsmoker Start:30-Nov-2017 Instruction Type:Patient Education How to access health informa tion online - Detail Indication:Nonsmoker Start:30-Nov-2017 Instruction Type:Patient Education Patient Instructions Indication:Sinusitis, bacterial Start:30-Nov-2017 Instruction Type:Provider Instructions for Treatment How to access health informa tion online Indication:Diabetes mellitus type II, controlled, with no complications (Renamed from Controlled type 2 diabetes mellitus without complication) Start:10-Aug-2017 Instruction Type:Patient Education How to access health informa tion online - Detail Indication:Diabetes mellitus type II, controlled, with no complications (Renamed from Controlled type 2 diabetes mellitus without complication) Start:10-Aug-2017 Instruction Type:Patient Education Patient Instructions Indication:Diabetes mellitus type II, controlled, with no complications (Renamed from Controlled type 2 diabetes mellitus without complication) Start:10-Aug-2017 Instruction Type:Provider Instructions for Treatment How to access health informa tion online Indication:Uncontrolled type 2 diabetes mellitus without complication, without long-term current use of insulin Start:07-May-2017 Instruction Type:Patient Education How to access health informa tion online - Detail Indication:Uncontrolled type 2 diabetes mellitus without complication, without long-term current use of insulin Start:07-May-2017 Instruction Type:Patient Education Patient Instructions Indication:Uncontrolled type 2 diabetes mellitus without complication, without long-term current use of insulin Start:07-May-2017 Instruction Type:Provider Instructions for Treatment Patient Instructions Indication:Nonsmoker Start:09-Feb-2017 Instruction Type:Provider Instructions for Treatment How to access health informa tion online Indication:Uncontrolled type 2 diabetes mellitus without complication, without long-term current use of insulin Start:09-Dec-2016 Instruction Type:Patient Education How to access health informa tion online - Detail Indication:Uncontrolled type 2 diabetes mellitus without complication, without long-term current use of insulin Start:09-Dec-2016 Instruction Type:Patient Education Patient Instructions Indication:Uncontrolled type 2 diabetes mellitus without complication, without long-term current use of insulin Start:09-Dec-2016 Instruction Type:Provider Instructions for Treatment DISCONTINUED - LIPID PANEL ( [id number]) Indication:Hypercholesteremia Start:13-Oct-2016 Instruction Type:Patient Education DISCONTINUED - Glucose, PP/2 Hour (32100) Indication:Family history of diabetes mellitus Start:13-Oct-2016 Instruction Type:Patient Education DISCONTINUED - Hemoglobin Glyclated (HGB A1C) (96803) Indication:Family history of diabetes mellitus Start:13-Oct-2016 Instruction Type:Patient Education How to access health informa tion online Indication:Uncontrolled type 2 diabetes mellitus without complication, without long-term current use of insulin Start:13-Oct-2016 Instruction Type:Patient Education How to access health informa tion online - Detail Indication:Uncontrolled type 2 diabetes mellitus without complication, without long-term current use of insulin Start:13-Oct-2016 Instruction Type:Patient Education Patient Instructions Indication:Uncontrolled type 2 diabetes mellitus without complication, without long-term current use of insulin Start:13-Oct-2016 Instruction Type:Provider Instructions for Treatment Patient Instructions Indication:Nonsmoker Start:30-Sep-2016 Instruction Type:Provider Instructions for Treatment How to access health informa tion online Indication:Uncontrolled type 2 diabetes mellitus without complication, without long-term current use of insulin Start:30-Sep-2016 Instruction Type:Patient Education How to access health informa tion online - Detail Indication:Uncontrolled type 2 diabetes mellitus without complication, without long-term current use of insulin Start:30-Sep-2016 Instruction Type:Patient Education Patient Instructions Indication:Hypothyroid Start:28-Aug-2013 Instruction Type:Provider Instructions for Treatment Patient Instructions Indication:Family history of diabetes mellitus Start:06-Mar-2013 Instruction Type:Provider Instructions for Treatment [facility]; [facility] Work Phone: Instructions* Name Dates Details Patient Instructions Indication:Diabetes mellitus type II, controlled, with no complications (Renamed from Controlled type 2 diabetes mellitus without complication) Start:27-Feb-2022 Instruction Type:Provider Instructions for Treatment How to Access Health Informa tion Online using Patient Portal and [employer] Apps Indication:Diabetes mellitus type II, controlled, with no complications (Renamed from Controlled type 2 diabetes mellitus without complication) Start:27-Feb-2022 Instruction Type:Patient Education Patient Instructions Indication:BMI 33.0-33.9,adult Start:18-Nov-2021 Instruction Type:Provider Instructions for Treatment How to Access Health Informa tion Online using Patient Portal and [employer] Apps Indication:Diabetes mellitus type II, controlled, with no complications (Renamed from Controlled type 2 diabetes mellitus without complication) Start:18-Nov-2021 Instruction Type:Patient Education Patient Instructions Indication:Vitamin D deficiency Start:13-Aug-2021 Instruction Type:Provider Instructions for Treatment How to Access Health Informa tion Online using Patient Portal and [employer] Apps Indication:BMI 34.0-34.9,adult Start:13-Aug-2021 Instruction Type:Patient Education Patient Instructions Indication:Temporary low platelet count Start:19-Mar-2021 Instruction Type:Provider Instructions for Treatment How to Access Health Informa tion Online using Patient Portal and [employer] Apps Indication:Nonsmoker Start:19-Mar-2021 Instruction Type:Patient Education Patient Instructions Indication:Acute sinusitis Start:24-Feb-2021 Instruction Type:Provider Instructions for Treatment How to Access Health Informa tion Online using Patient Portal and [employer] Apps Indication:Acute sinusitis Start:24-Feb-2021 Instruction Type:Patient Education How to access health informa tion online Indication:Nonsmoker Start:10-Jun-2020 Instruction Type:Patient Education How to access health informa tion online - Detail Indication:Nonsmoker Start:10-Jun-2020 Instruction Type:Patient Education Patient Instructions Indication:BMI 34.0-34.9,adult Start:10-Jun-2020 Instruction Type:Provider Instructions for Treatment How to access health informa tion online Indication:Nonsmoker Start:23-Feb-2020 Instruction Type:Patient Education How to access health informa tion online - Detail Indication:Nonsmoker Start:23-Feb-2020 Instruction Type:Patient Education Patient Instructions Indication:Nonsmoker Start:23-Feb-2020 Instruction Type:Provider Instructions for Treatment How to access health informa tion online Indication:Nonsmoker Start:21-Feb-2020 Instruction Type:Patient Education How to access health informa tion online - Detail Indication:Nonsmoker Start:21-Feb-2020 Instruction Type:Patient Education Patient Instructions Indication:Nonsmoker Start:21-Feb-2020 Instruction Type:Provider Instructions for Treatment How to access health informa tion online Indication:Nonsmoker Start:16-Feb-2020 Instruction Type:Patient Education How to access health informa tion online - Detail Indication:Nonsmoker Start:16-Feb-2020 Instruction Type:Patient Education Patient Instructions Indication:BMI 34.0-34.9,adult Start:16-Feb-2020 Instruction Type:Provider Instructions for Treatment How to access health informa tion online Indication:Nonsmoker Start:14-Dec-2019 Instruction Type:Patient Education How to access health informa tion online - Detail Indication:Nonsmoker Start:14-Dec-2019 Instruction Type:Patient Education Patient Instructions Indication:Cough Start:14-Dec-2019 Instruction Type:Provider Instructions for Treatment How to access health informa tion online Indication:Diabetes mellitus type II, controlled, with no complications (Renamed from Controlled type 2 diabetes mellitus without complication) Start:06-Nov-2019 Instruction Type:Patient Education How to access health informa tion online - Detail Indication:Diabetes mellitus type II, controlled, with no complications (Renamed from Controlled type 2 diabetes mellitus without complication) Start:06-Nov-2019 Instruction Type:Patient Education Patient Instructions Indication:Vitamin D deficiency Start:06-Nov-2019 Instruction Type:Provider Instructions for Treatment How to access health informa tion online Indication:Diabetes mellitus type II, controlled, with no complications (Renamed from Controlled type 2 diabetes mellitus without complication) Start:28-Aug-2019 Instruction Type:Patient Education How to access health informa tion online - Detail Indication:Diabetes mellitus type II, controlled, with no complications (Renamed from Controlled type 2 diabetes mellitus without complication) Start:28-Aug-2019 Instruction Type:Patient Education Patient Instructions Indication:BMI 33.0-33.9,adult Start:28-Aug-2019 Instruction Type:Provider Instructions for Treatment How to access health informa tion online Indication:Nonsmoker Start:03-Apr-2019 Instruction Type:Patient Education How to access health informa tion online - Detail Indication:Nonsmoker Start:03-Apr-2019 Instruction Type:Patient Education Patient Instructions Indication:Nonsmoker Start:03-Apr-2019 Instruction Type:Provider Instructions for Treatment How to access health informa tion online Indication:Diabetes mellitus type 2, uncontrolled (Renamed from Uncontrolled type 2 diabetes mellitus) Start:13-Mar-2019 Instruction Type:Patient Education How to access health informa tion online - Detail Indication:Diabetes mellitus type 2, uncontrolled (Renamed from Uncontrolled type 2 diabetes mellitus) Start:13-Mar-2019 Instruction Type:Patient Education Patient Instructions Indication:BMI 35.0-35.9,adult Start:13-Mar-2019 Instruction Type:Provider Instructions for Treatment How to access health informa tion online Indication:Diabetes mellitus type II, controlled, with no complications (Renamed from Controlled type 2 diabetes mellitus without complication) Start:19-Jan-2019 Instruction Type:Patient Education How to access health informa tion online - Detail Indication:Diabetes mellitus type II, controlled, with no complications (Renamed from Controlled type 2 diabetes mellitus without complication) Start:19-Jan-2019 Instruction Type:Patient Education Patient Instructions Indication:Hypothyroid Start:19-Jan-2019 Instruction Type:Provider Instructions for Treatment How to access health informa tion online Indication:Nonsmoker Start:05-Oct-2018 Instruction Type:Patient Education How to access health informa tion online - Detail Indication:Nonsmoker Start:05-Oct-2018 Instruction Type:Patient Education Patient Instructions Indication:Atypical lobular hyperplasia of right breast Start:05-Oct-2018 Instruction Type:Provider Instructions for Treatment How to access health informa tion online Indication:BMI 35.0-35.9,adult Start:16-Sep-2018 Instruction Type:Patient Education How to access health informa tion online - Detail Indication:BMI 35.0-35.9,adult Start:16-Sep-2018 Instruction Type:Patient Education Patient Instructions Indication:BMI 35.0-35.9,adult Start:16-Sep-2018 Instruction Type:Provider Instructions for Treatment How to access health informa tion online Indication:Nonsmoker Start:27-Jun-2018 Instruction Type:Patient Education How to access health informa tion online - Detail Indication:Nonsmoker Start:27-Jun-2018 Instruction Type:Patient Education Patient Instructions Indication:Elevated liver enzymes Start:27-Jun-2018 Instruction Type:Provider Instructions for Treatment How to access health informa tion online Indication:Diabetes mellitus type II, controlled, with no complications (Renamed from Controlled type 2 diabetes mellitus without complication) Start:14-Jun-2018 Instruction Type:Patient Education How to access health informa tion online - Detail Indication:Diabetes mellitus type II, controlled, with no complications (Renamed from Controlled type 2 diabetes mellitus without complication) Start:14-Jun-2018 Instruction Type:Patient Education Patient Instructions Indication:Diabetes mellitus type II, controlled, with no complications (Renamed from Controlled type 2 diabetes mellitus without complication) Start:14-Jun-2018 Instruction Type:Provider Instructions for Treatment How to access health informa tion online Indication:Diabetes mellitus type II, controlled, with no complications (Renamed from Controlled type 2 diabetes mellitus without complication) Start:15-Mar-2018 Instruction Type:Patient Education How to access health informa tion online - Detail Indication:Diabetes mellitus type II, controlled, with no complications (Renamed from Controlled type 2 diabetes mellitus without complication) Start:15-Mar-2018 Instruction Type:Patient Education Patient Instructions Indication:Diabetes mellitus type II, controlled, with no complications (Renamed from Controlled type 2 diabetes mellitus without complication) Start:15-Mar-2018 Instruction Type:Provider Instructions for Treatment How to access health informa tion online Indication:Diabetes mellitus type II, controlled, with no complications (Renamed from Controlled type 2 diabetes mellitus without complication) Start:06-Dec-2017 Instruction Type:Patient Education How to access health informa tion online - Detail Indication:Diabetes mellitus type II, controlled, with no complications (Renamed from Controlled type 2 diabetes mellitus without complication) Start:06-Dec-2017 Instruction Type:Patient Education Patient Instructions Indication:Diabetes mellitus type II, controlled, with no complications (Renamed from Controlled type 2 diabetes mellitus without complication) Start:06-Dec-2017 Instruction Type:Provider Instructions for Treatment How to access health informa tion online Indication:Nonsmoker Start:30-Nov-2017 Instruction Type:Patient Education How to access health informa tion online - Detail Indication:Nonsmoker Start:30-Nov-2017 Instruction Type:Patient Education Patient Instructions Indication:Sinusitis, bacterial Start:30-Nov-2017 Instruction Type:Provider Instructions for Treatment How to access health informa tion online Indication:Diabetes mellitus type II, controlled, with no complications (Renamed from Controlled type 2 diabetes mellitus without complication) Start:10-Aug-2017 Instruction Type:Patient Education How to access health informa tion online - Detail Indication:Diabetes mellitus type II, controlled, with no complications (Renamed from Controlled type 2 diabetes mellitus without complication) Start:10-Aug-2017 Instruction Type:Patient Education Patient Instructions Indication:Diabetes mellitus type II, controlled, with no complications (Renamed from Controlled type 2 diabetes mellitus without complication) Start:10-Aug-2017 Instruction Type:Provider Instructions for Treatment How to access health informa tion online Indication:Uncontrolled type 2 diabetes mellitus without complication, without long-term current use of insulin Start:07-May-2017 Instruction Type:Patient Education How to access health informa tion online - Detail Indication:Uncontrolled type 2 diabetes mellitus without complication, without long-term current use of insulin Start:07-May-2017 Instruction Type:Patient Education Patient Instructions Indication:Uncontrolled type 2 diabetes mellitus without complication, without long-term current use of insulin Start:07-May-2017 Instruction Type:Provider Instructions for Treatment Patient Instructions Indication:Nonsmoker Start:09-Feb-2017 Instruction Type:Provider Instructions for Treatment How to access health [employer] Indication:Uncontrolled type 2 diabetes mellitus without complication, without long-term current use of insulin Start:09-Dec-2016 Instruction Type:Patient Education How to access health informa [employer] online - Detail Indication:Uncontrolled type 2 diabetes mellitus without complication, without long-term current use of insulin Start:09-Dec-2016 Instruction Type:Patient Education Patient Instructions Indication:Uncontrolled type 2 diabetes mellitus without complication, without long-term current use of insulin Start:09-Dec-2016 Instruction Type:Provider Instructions for Treatment DISCONTINUED - LIPID PANEL ( [id number]) Indication:Hypercholesteremia Start:13-Oct-2016 Instruction Type:Patient Education DISCONTINUED - Glucose, PP/2 Hour (81204) Indication:Family history of diabetes mellitus Start:13-Oct-2016 Instruction Type:Patient Education DISCONTINUED - Hemoglobin Glyclated (HGB A1C) ([id number]) Indication:Family history of diabetes mellitus Start:13-Oct-2016 Instruction Type:Patient Education How to access health [employer] online Indication:Uncontrolled type 2 diabetes mellitus without complication, without long-term current use of insulin Start:13-Oct-2016 Instruction Type:Patient Education How to access health informa [employer] online - Detail Indication:Uncontrolled type 2 diabetes mellitus without complication, without long-term current use of insulin Start:13-Oct-2016 Instruction Type:Patient Education Patient Instructions Indication:Uncontrolled type 2 diabetes mellitus without complication, without long-term current use of insulin Start:13-Oct-2016 Instruction Type:Provider Instructions for Treatment Patient Instructions Indication:Nonsmoker Start:30-Sep-2016 Instruction Type:Provider Instructions for Treatment How to access health [employer] online Indication:Uncontrolled type 2 diabetes mellitus without complication, without long-term current use of insulin Start:30-Sep-2016 Instruction Type:Patient Education How to access health informa [employer] online - Detail Indication:Uncontrolled type 2 diabetes mellitus without complication, without long-term current use of insulin Start:30-Sep-2016 Instruction Type:Patient Education Patient Instructions Indication:Hypothyroid Start:28-Aug-2013 Instruction Type:Provider Instructions for Treatment Patient Instructions Indication:Family history of diabetes mellitus Start:06-Mar-2013 Instruction Type:Provider Instructions for Treatment [facility]; [facility] Work Phone: Instructions* Name Dates Details Patient Instructions Indication:Nonsmoker Start:26-May-2022 Instruction Type:Provider Instructions for Treatment How to Access Health Informa tion Online using Patient Portal and [employer] Apps Indication:Nonsmoker Start:26-May-2022 Instruction Type:Patient Education Patient Instructions Indication:Diabetes mellitus type II, controlled, with no complications (Renamed from Controlled type 2 diabetes mellitus without complication) Start:27-Feb-2022 Instruction Type:Provider Instructions for Treatment How to Access Health Informa tion Online using Patient Portal and [employer] Apps Indication:Diabetes mellitus type II, controlled, with no complications (Renamed from Controlled type 2 diabetes mellitus without complication) Start:27-Feb-2022 Instruction Type:Patient Education Patient Instructions Indication:BMI 33.0-33.9,adult Start:18-Nov-2021 Instruction Type:Provider Instructions for Treatment How to Access Health Informa tion Online using Patient Portal and [employer] Apps Indication:Diabetes mellitus type II, controlled, with no complications (Renamed from Controlled type 2 diabetes mellitus without complication) Start:18-Nov-2021 Instruction Type:Patient Education Patient Instructions Indication:Vitamin D deficiency Start:13-Aug-2021 Instruction Type:Provider Instructions for Treatment How to Access Health Informa tion Online using Patient Portal and [employer] Apps Indication:BMI 34.0-34.9,adult Start:13-Aug-2021 Instruction Type:Patient Education Patient Instructions Indication:Temporary low platelet count Start:19-Mar-2021 Instruction Type:Provider Instructions for Treatment How to Access Health Informa tion Online using Patient Portal and [employer] Apps Indication:Nonsmoker Start:19-Mar-2021 Instruction Type:Patient Education Patient Instructions Indication:Acute sinusitis Start:24-Feb-2021 Instruction Type:Provider Instructions for Treatment How to Access Health Informa tion Online using Patient Portal and [employer] Apps Indication:Acute sinusitis Start:24-Feb-2021 Instruction Type:Patient Education How to access health informa tion online Indication:Nonsmoker Start:10-Jun-2020 Instruction Type:Patient Education How to access health informa tion online - Detail Indication:Nonsmoker Start:10-Jun-2020 Instruction Type:Patient Education Patient Instructions Indication:BMI 34.0-34.9,adult Start:10-Jun-2020 Instruction Type:Provider Instructions for Treatment How to access health informa tion online Indication:Nonsmoker Start:23-Feb-2020 Instruction Type:Patient Education How to access health informa tion online - Detail Indication:Nonsmoker Start:23-Feb-2020 Instruction Type:Patient Education Patient Instructions Indication:Nonsmoker Start:23-Feb-2020 Instruction Type:Provider Instructions for Treatment How to access health informa tion online Indication:Nonsmoker Start:21-Feb-2020 Instruction Type:Patient Education How to access health informa tion online - Detail Indication:Nonsmoker Start:21-Feb-2020 Instruction Type:Patient Education Patient Instructions Indication:Nonsmoker Start:21-Feb-2020 Instruction Type:Provider Instructions for Treatment How to access health informa tion online Indication:Nonsmoker Start:16-Feb-2020 Instruction Type:Patient Education How to access health informa tion online - Detail Indication:Nonsmoker Start:16-Feb-2020 Instruction Type:Patient Education Patient Instructions Indication:BMI 34.0-34.9,adult Start:16-Feb-2020 Instruction Type:Provider Instructions for Treatment How to access health informa tion online Indication:Nonsmoker Start:14-Dec-2019 Instruction Type:Patient Education How to access health informa tion online - Detail Indication:Nonsmoker Start:14-Dec-2019 Instruction Type:Patient Education Patient Instructions Indication:Cough Start:14-Dec-2019 Instruction Type:Provider Instructions for Treatment How to access health informa tion online Indication:Diabetes mellitus type II, controlled, with no complications (Renamed from Controlled type 2 diabetes mellitus without complication) Start:06-Nov-2019 Instruction Type:Patient Education How to access health informa tion online - Detail Indication:Diabetes mellitus type II, controlled, with no complications (Renamed from Controlled type 2 diabetes mellitus without complication) Start:06-Nov-2019 Instruction Type:Patient Education Patient Instructions Indication:Vitamin D deficiency Start:06-Nov-2019 Instruction Type:Provider Instructions for Treatment How to access health informa tion online Indication:Diabetes mellitus type II, controlled, with no complications (Renamed from Controlled type 2 diabetes mellitus without complication) Start:28-Aug-2019 Instruction Type:Patient Education How to access health informa tion online - Detail Indication:Diabetes mellitus type II, controlled, with no complications (Renamed from Controlled type 2 diabetes mellitus without complication) Start:28-Aug-2019 Instruction Type:Patient Education Patient Instructions Indication:BMI 33.0-33.9,adult Start:28-Aug-2019 Instruction Type:Provider Instructions for Treatment How to access health informa tion online Indication:Nonsmoker Start:03-Apr-2019 Instruction Type:Patient Education How to access health informa tion online - Detail Indication:Nonsmoker Start:03-Apr-2019 Instruction Type:Patient Education Patient Instructions Indication:Nonsmoker Start:03-Apr-2019 Instruction Type:Provider Instructions for Treatment How to access health informa tion online Indication:Diabetes mellitus type 2, uncontrolled (Renamed from Uncontrolled type 2 diabetes mellitus) Start:13-Mar-2019 Instruction Type:Patient Education How to access health informa tion online - Detail Indication:Diabetes mellitus type 2, uncontrolled (Renamed from Uncontrolled type 2 diabetes mellitus) Start:13-Mar-2019 Instruction Type:Patient Education Patient Instructions Indication:BMI 35.0-35.9,adult Start:13-Mar-2019 Instruction Type:Provider Instructions for Treatment How to access health informa tion online Indication:Diabetes mellitus type II, controlled, with no complications (Renamed from Controlled type 2 diabetes mellitus without complication) Start:19-Jan-2019 Instruction Type:Patient Education How to access health informa tion online - Detail Indication:Diabetes mellitus type II, controlled, with no complications (Renamed from Controlled type 2 diabetes mellitus without complication) Start:19-Jan-2019 Instruction Type:Patient Education Patient Instructions Indication:Hypothyroid Start:19-Jan-2019 Instruction Type:Provider Instructions for Treatment How to access health informa tion online Indication:Nonsmoker Start:05-Oct-2018 Instruction Type:Patient Education How to access health informa tion online - Detail Indication:Nonsmoker Start:05-Oct-2018 Instruction Type:Patient Education Patient Instructions Indication:Atypical lobular hyperplasia of right breast Start:05-Oct-2018 Instruction Type:Provider Instructions for Treatment How to access health informa tion online Indication:BMI 35.0-35.9,adult Start:16-Sep-2018 Instruction Type:Patient Education How to access health informa tion online - Detail Indication:BMI 35.0-35.9,adult Start:16-Sep-2018 Instruction Type:Patient Education Patient Instructions Indication:BMI 35.0-35.9,adult Start:16-Sep-2018 Instruction Type:Provider Instructions for Treatment How to access health informa tion online Indication:Nonsmoker Start:27-Jun-2018 Instruction Type:Patient Education How to access health informa tion online - Detail Indication:Nonsmoker Start:27-Jun-2018 Instruction Type:Patient Education Patient Instructions Indication:Elevated liver enzymes Start:27-Jun-2018 Instruction Type:Provider Instructions for Treatment How to access health informa tion online Indication:Diabetes mellitus type II, controlled, with no complications (Renamed from Controlled type 2 diabetes mellitus without complication) Start:14-Jun-2018 Instruction Type:Patient Education How to access health informa tion online - Detail Indication:Diabetes mellitus type II, controlled, with no complications (Renamed from Controlled type 2 diabetes mellitus without complication) Start:14-Jun-2018 Instruction Type:Patient Education Patient Instructions Indication:Diabetes mellitus type II, controlled, with no complications (Renamed from Controlled type 2 diabetes mellitus without complication) Start:14-Jun-2018 Instruction Type:Provider Instructions for Treatment How to access health informa tion online Indication:Diabetes mellitus type II, controlled, with no complications (Renamed from Controlled type 2 diabetes mellitus without complication) Start:15-Mar-2018 Instruction Type:Patient Education How to access health informa tion online - Detail Indication:Diabetes mellitus type II, controlled, with no complications (Renamed from Controlled type 2 diabetes mellitus without complication) Start:15-Mar-2018 Instruction Type:Patient Education Patient Instructions Indication:Diabetes mellitus type II, controlled, with no complications (Renamed from Controlled type 2 diabetes mellitus without complication) Start:15-Mar-2018 Instruction Type:Provider Instructions for Treatment How to access health informa tion online Indication:Diabetes mellitus type II, controlled, with no complications (Renamed from Controlled type 2 diabetes mellitus without complication) Start:06-Dec-2017 Instruction Type:Patient Education How to access health informa tion online - Detail Indication:Diabetes mellitus type II, controlled, with no complications (Renamed from Controlled type 2 diabetes mellitus without complication) Start:06-Dec-2017 Instruction Type:Patient Education Patient Instructions Indication:Diabetes mellitus type II, controlled, with no complications (Renamed from Controlled type 2 diabetes mellitus without complication) Start:06-Dec-2017 Instruction Type:Provider Instructions for Treatment How to access health informa tion online Indication:Nonsmoker Start:30-Nov-2017 Instruction Type:Patient Education How to access health informa tion online - Detail Indication:Nonsmoker Start:30-Nov-2017 Instruction Type:Patient Education Patient Instructions Indication:Sinusitis, bacterial Start:30-Nov-2017 Instruction Type:Provider Instructions for Treatment How to access health informa tion online Indication:Diabetes mellitus type II, controlled, with no complications (Renamed from Controlled type 2 diabetes mellitus without complication) Start:10-Aug-2017 Instruction Type:Patient Education How to access health informa tion online - Detail Indication:Diabetes mellitus type II, controlled, with no complications (Renamed from Controlled type 2 diabetes mellitus without complication) Start:10-Aug-2017 Instruction Type:Patient Education Patient Instructions Indication:Diabetes mellitus type II, controlled, with no complications (Renamed from Controlled type 2 diabetes mellitus without complication) Start:10-Aug-2017 Instruction Type:Provider Instructions for Treatment How to access health informa tion online Indication:Uncontrolled type 2 diabetes mellitus without complication, without long-term current use of insulin Start:07-May-2017 Instruction Type:Patient Education How to access health informa tion online - Detail Indication:Uncontrolled type 2 diabetes mellitus without complication, without long-term current use of insulin Start:07-May-2017 Instruction Type:Patient Education Patient Instructions Indication:Uncontrolled type 2 diabetes mellitus without complication, without long-term current use of insulin Start:07-May-2017 Instruction Type:Provider Instructions for Treatment Patient Instructions Indication:Nonsmoker Start:09-Feb-2017 Instruction Type:Provider Instructions for Treatment How to access health informa tion online Indication:Uncontrolled type 2 diabetes mellitus without complication, without long-term current use of insulin Start:09-Dec-2016 Instruction Type:Patient Education How to access health informa tion online - Detail Indication:Uncontrolled type 2 diabetes mellitus without complication, without long-term current use of insulin Start:09-Dec-2016 Instruction Type:Patient Education Patient Instructions Indication:Uncontrolled type 2 diabetes mellitus without complication, without long-term current use of insulin Start:09-Dec-2016 Instruction Type:Provider Instructions for Treatment DISCONTINUED - LIPID PANEL ( [id number]) Indication:Hypercholesteremia Start:13-Oct-2016 Instruction Type:Patient Education DISCONTINUED - Glucose, PP/2 Hour (97418) Indication:Family history of diabetes mellitus Start:13-Oct-2016 Instruction Type:Patient Education DISCONTINUED - Hemoglobin Glyclated (HGB A1C) (03261) Indication:Family history of diabetes mellitus Start:13-Oct-2016 Instruction Type:Patient Education How to access health informa tion online Indication:Uncontrolled type 2 diabetes mellitus without complication, without long-term current use of insulin Start:13-Oct-2016 Instruction Type:Patient Education How to access health informa tion online - Detail Indication:Uncontrolled type 2 diabetes mellitus without complication, without long-term current use of insulin Start:13-Oct-2016 Instruction Type:Patient Education Patient Instructions Indication:Uncontrolled type 2 diabetes mellitus without complication, without long-term current use of insulin Start:13-Oct-2016 Instruction Type:Provider Instructions for Treatment Patient Instructions Indication:Nonsmoker Start:30-Sep-2016 Instruction Type:Provider Instructions for Treatment How to access health informa tion online Indication:Uncontrolled type 2 diabetes mellitus without complication, without long-term current use of insulin Start:30-Sep-2016 Instruction Type:Patient Education How to access health informa tion online - Detail Indication:Uncontrolled type 2 diabetes mellitus without complication, without long-term current use of insulin Start:30-Sep-2016 Instruction Type:Patient Education Patient Instructions Indication:Hypothyroid Start:28-Aug-2013 Instruction Type:Provider Instructions for Treatment Patient Instructions Indication:Family history of diabetes mellitus Start:06-Mar-2013 Instruction Type:Provider Instructions for Treatment [facility]; [facility] Work Phone: Instructions* Name Dates Details Patient Instructions Indication:Nonsmoker Start:26-May-2022 Instruction Type:Provider Instructions for Treatment How to Access Health Informa tion Online using Patient Portal and [employer] Apps Indication:Nonsmoker Start:26-May-2022 Instruction Type:Patient Education Patient Instructions Indication:Diabetes mellitus type II, controlled, with no complications (Renamed from Controlled type 2 diabetes mellitus without complication) Start:27-Feb-2022 Instruction Type:Provider Instructions for Treatment How to Access Health Informa tion Online using Patient Portal and [employer] Apps Indication:Diabetes mellitus type II, controlled, with no complications (Renamed from Controlled type 2 diabetes mellitus without complication) Start:27-Feb-2022 Instruction Type:Patient Education Patient Instructions Indication:BMI 33.0-33.9,adult Start:18-Nov-2021 Instruction Type:Provider Instructions for Treatment How to Access Health Informa tion Online using Patient Portal and [employer] Apps Indication:Diabetes mellitus type II, controlled, with no complications (Renamed from Controlled type 2 diabetes mellitus without complication) Start:18-Nov-2021 Instruction Type:Patient Education Patient Instructions Indication:Vitamin D deficiency Start:13-Aug-2021 Instruction Type:Provider Instructions for Treatment How to Access Health Informa tion Online using Patient Portal and [employer] Apps Indication:BMI 34.0-34.9,adult Start:13-Aug-2021 Instruction Type:Patient Education Patient Instructions Indication:Temporary low platelet count Start:19-Mar-2021 Instruction Type:Provider Instructions for Treatment How to Access Health Informa tion Online using Patient Portal and [employer] Apps Indication:Nonsmoker Start:19-Mar-2021 Instruction Type:Patient Education Patient Instructions Indication:Acute sinusitis Start:24-Feb-2021 Instruction Type:Provider Instructions for Treatment How to Access Health Informa tion Online using Patient Portal and [employer] Apps Indication:Acute sinusitis Start:24-Feb-2021 Instruction Type:Patient Education How to access health informa tion online Indication:Nonsmoker Start:10-Jun-2020 Instruction Type:Patient Education How to access health informa tion online - Detail Indication:Nonsmoker Start:10-Jun-2020 Instruction Type:Patient Education Patient Instructions Indication:BMI 34.0-34.9,adult Start:10-Jun-2020 Instruction Type:Provider Instructions for Treatment How to access health informa tion online Indication:Nonsmoker Start:23-Feb-2020 Instruction Type:Patient Education How to access health informa tion online - Detail Indication:Nonsmoker Start:23-Feb-2020 Instruction Type:Patient Education Patient Instructions Indication:Nonsmoker Start:23-Feb-2020 Instruction Type:Provider Instructions for Treatment How to access health informa tion online Indication:Nonsmoker Start:21-Feb-2020 Instruction Type:Patient Education How to access health informa tion online - Detail Indication:Nonsmoker Start:21-Feb-2020 Instruction Type:Patient Education Patient Instructions Indication:Nonsmoker Start:21-Feb-2020 Instruction Type:Provider Instructions for Treatment How to access health informa tion online Indication:Nonsmoker Start:16-Feb-2020 Instruction Type:Patient Education How to access health informa tion online - Detail Indication:Nonsmoker Start:16-Feb-2020 Instruction Type:Patient Education Patient Instructions Indication:BMI 34.0-34.9,adult Start:16-Feb-2020 Instruction Type:Provider Instructions for Treatment How to access health informa tion online Indication:Nonsmoker Start:14-Dec-2019 Instruction Type:Patient Education How to access health informa tion online - Detail Indication:Nonsmoker Start:14-Dec-2019 Instruction Type:Patient Education Patient Instructions Indication:Cough Start:14-Dec-2019 Instruction Type:Provider Instructions for Treatment How to access health informa tion online Indication:Diabetes mellitus type II, controlled, with no complications (Renamed from Controlled type 2 diabetes mellitus without complication) Start:06-Nov-2019 Instruction Type:Patient Education How to access health informa tion online - Detail Indication:Diabetes mellitus type II, controlled, with no complications (Renamed from Controlled type 2 diabetes mellitus without complication) Start:06-Nov-2019 Instruction Type:Patient Education Patient Instructions Indication:Vitamin D deficiency Start:06-Nov-2019 Instruction Type:Provider Instructions for Treatment How to access health informa tion online Indication:Diabetes mellitus type II, controlled, with no complications (Renamed from Controlled type 2 diabetes mellitus without complication) Start:28-Aug-2019 Instruction Type:Patient Education How to access health informa tion online - Detail Indication:Diabetes mellitus type II, controlled, with no complications (Renamed from Controlled type 2 diabetes mellitus without complication) Start:28-Aug-2019 Instruction Type:Patient Education Patient Instructions Indication:BMI 33.0-33.9,adult Start:28-Aug-2019 Instruction Type:Provider Instructions for Treatment How to access health informa tion online Indication:Nonsmoker Start:03-Apr-2019 Instruction Type:Patient Education How to access health informa tion online - Detail Indication:Nonsmoker Start:03-Apr-2019 Instruction Type:Patient Education Patient Instructions Indication:Nonsmoker Start:03-Apr-2019 Instruction Type:Provider Instructions for Treatment How to access health informa tion online Indication:Diabetes mellitus type 2, uncontrolled (Renamed from Uncontrolled type 2 diabetes mellitus) Start:13-Mar-2019 Instruction Type:Patient Education How to access health informa tion online - Detail Indication:Diabetes mellitus type 2, uncontrolled (Renamed from Uncontrolled type 2 diabetes mellitus) Start:13-Mar-2019 Instruction Type:Patient Education Patient Instructions Indication:BMI 35.0-35.9,adult Start:13-Mar-2019 Instruction Type:Provider Instructions for Treatment How to access health informa tion online Indication:Diabetes mellitus type II, controlled, with no complications (Renamed from Controlled type 2 diabetes mellitus without complication) Start:19-Jan-2019 Instruction Type:Patient Education How to access health informa tion online - Detail Indication:Diabetes mellitus type II, controlled, with no complications (Renamed from Controlled type 2 diabetes mellitus without complication) Start:19-Jan-2019 Instruction Type:Patient Education Patient Instructions Indication:Hypothyroid Start:19-Jan-2019 Instruction Type:Provider Instructions for Treatment How to access health informa tion online Indication:Nonsmoker Start:05-Oct-2018 Instruction Type:Patient Education How to access health informa tion online - Detail Indication:Nonsmoker Start:05-Oct-2018 Instruction Type:Patient Education Patient Instructions Indication:Atypical lobular hyperplasia of right breast Start:05-Oct-2018 Instruction Type:Provider Instructions for Treatment How to access health informa tion online Indication:BMI 35.0-35.9,adult Start:16-Sep-2018 Instruction Type:Patient Education How to access health informa tion online - Detail Indication:BMI 35.0-35.9,adult Start:16-Sep-2018 Instruction Type:Patient Education Patient Instructions Indication:BMI 35.0-35.9,adult Start:16-Sep-2018 Instruction Type:Provider Instructions for Treatment How to access health informa tion online Indication:Nonsmoker Start:27-Jun-2018 Instruction Type:Patient Education How to access health informa tion online - Detail Indication:Nonsmoker Start:27-Jun-2018 Instruction Type:Patient Education Patient Instructions Indication:Elevated liver enzymes Start:27-Jun-2018 Instruction Type:Provider Instructions for Treatment How to access health informa tion online Indication:Diabetes mellitus type II, controlled, with no complications (Renamed from Controlled type 2 diabetes mellitus without complication) Start:14-Jun-2018 Instruction Type:Patient Education How to access health informa tion online - Detail Indication:Diabetes mellitus type II, controlled, with no complications (Renamed from Controlled type 2 diabetes mellitus without complication) Start:14-Jun-2018 Instruction Type:Patient Education Patient Instructions Indication:Diabetes mellitus type II, controlled, with no complications (Renamed from Controlled type 2 diabetes mellitus without complication) Start:14-Jun-2018 Instruction Type:Provider Instructions for Treatment How to access health informa tion online Indication:Diabetes mellitus type II, controlled, with no complications (Renamed from Controlled type 2 diabetes mellitus without complication) Start:15-Mar-2018 Instruction Type:Patient Education How to access health informa tion online - Detail Indication:Diabetes mellitus type II, controlled, with no complications (Renamed from Controlled type 2 diabetes mellitus without complication) Start:15-Mar-2018 Instruction Type:Patient Education Patient Instructions Indication:Diabetes mellitus type II, controlled, with no complications (Renamed from Controlled type 2 diabetes mellitus without complication) Start:15-Mar-2018 Instruction Type:Provider Instructions for Treatment How to access health informa tion online Indication:Diabetes mellitus type II, controlled, with no complications (Renamed from Controlled type 2 diabetes mellitus without complication) Start:06-Dec-2017 Instruction Type:Patient Education How to access health informa tion online - Detail Indication:Diabetes mellitus type II, controlled, with no complications (Renamed from Controlled type 2 diabetes mellitus without complication) Start:06-Dec-2017 Instruction Type:Patient Education Patient Instructions Indication:Diabetes mellitus type II, controlled, with no complications (Renamed from Controlled type 2 diabetes mellitus without complication) Start:06-Dec-2017 Instruction Type:Provider Instructions for Treatment How to access health informa tion online Indication:Nonsmoker Start:30-Nov-2017 Instruction Type:Patient Education How to access health informa tion online - Detail Indication:Nonsmoker Start:30-Nov-2017 Instruction Type:Patient Education Patient Instructions Indication:Sinusitis, bacterial Start:30-Nov-2017 Instruction Type:Provider Instructions for Treatment How to access health informa tion online Indication:Diabetes mellitus type II, controlled, with no complications (Renamed from Controlled type 2 diabetes mellitus without complication) Start:10-Aug-2017 Instruction Type:Patient Education How to access health informa tion online - Detail Indication:Diabetes mellitus type II, controlled, with no complications (Renamed from Controlled type 2 diabetes mellitus without complication) Start:10-Aug-2017 Instruction Type:Patient Education Patient Instructions Indication:Diabetes mellitus type II, controlled, with no complications (Renamed from Controlled type 2 diabetes mellitus without complication) Start:10-Aug-2017 Instruction Type:Provider Instructions for Treatment How to access health informa tion online Indication:Uncontrolled type 2 diabetes mellitus without complication, without long-term current use of insulin Start:07-May-2017 Instruction Type:Patient Education How to access health informa tion online - Detail Indication:Uncontrolled type 2 diabetes mellitus without complication, without long-term current use of insulin Start:07-May-2017 Instruction Type:Patient Education Patient Instructions Indication:Uncontrolled type 2 diabetes mellitus without complication, without long-term current use of insulin Start:07-May-2017 Instruction Type:Provider Instructions for Treatment Patient Instructions Indication:Nonsmoker Start:09-Feb-2017 Instruction Type:Provider Instructions for Treatment How to access health informa [employer] online Indication:Uncontrolled type 2 diabetes mellitus without complication, without long-term current use of insulin Start:09-Dec-2016 Instruction Type:Patient Education How to access health informa [employer] online - Detail Indication:Uncontrolled type 2 diabetes mellitus without complication, without long-term current use of insulin Start:09-Dec-2016 Instruction Type:Patient Education Patient Instructions Indication:Uncontrolled type 2 diabetes mellitus without complication, without long-term current use of insulin Start:09-Dec-2016 Instruction Type:Provider Instructions for Treatment DISCONTINUED - LIPID PANEL ( [id number]) Indication:Hypercholesteremia Start:13-Oct-2016 Instruction Type:Patient Education DISCONTINUED - Glucose, PP/2 Hour (45070) Indication:Family history of diabetes mellitus Start:13-Oct-2016 Instruction Type:Patient Education DISCONTINUED - Hemoglobin Glyclated (HGB A1C) (00978) Indication:Family history of diabetes mellitus Start:13-Oct-2016 Instruction Type:Patient Education How to access health [employer] online Indication:Uncontrolled type 2 diabetes mellitus without complication, without long-term current use of insulin Start:13-Oct-2016 Instruction Type:Patient Education How to access health informa [employer] online - Detail Indication:Uncontrolled type 2 diabetes mellitus without complication, without long-term current use of insulin Start:13-Oct-2016 Instruction Type:Patient Education Patient Instructions Indication:Uncontrolled type 2 diabetes mellitus without complication, without long-term current use of insulin Start:13-Oct-2016 Instruction Type:Provider Instructions for Treatment Patient Instructions Indication:Nonsmoker Start:30-Sep-2016 Instruction Type:Provider Instructions for Treatment How to access [employer] Indication:Uncontrolled type 2 diabetes mellitus without complication, without long-term current use of insulin Start:30-Sep-2016 Instruction Type:Patient Education How to access health informa tion online - Detail Indication:Uncontrolled type 2 diabetes mellitus without complication, without long-term current use of insulin Start:30-Sep-2016 Instruction Type:Patient Education Patient Instructions Indication:Hypothyroid Start:28-Aug-2013 Instruction Type:Provider Instructions for Treatment Patient Instructions Indication:Family history of diabetes mellitus Start:06-Mar-2013 Instruction Type:Provider Instructions for Treatment [facility]; [facility] Work Phone: Instructions* Name Dates Details Patient Instructions Indication:Nonsmoker Start:07-Jul-2022 Instruction Type:Provider Instructions for Treatment How to Access Health Informa tion Online using Patient Portal and [employer] Apps Indication:Nonsmoker Start:07-Jul-2022 Instruction Type:Patient Education Patient Instructions Indication:Nonsmoker Start:26-May-2022 Instruction Type:Provider Instructions for Treatment How to Access Health Informa tion Online using Patient Portal and [employer] Apps Indication:Nonsmoker Start:26-May-2022 Instruction Type:Patient Education Patient Instructions Indication:Diabetes mellitus type II, controlled, with no complications (Renamed from Controlled type 2 diabetes mellitus without complication) Start:27-Feb-2022 Instruction Type:Provider Instructions for Treatment How to Access Health Informa tion Online using Patient Portal and [employer] Apps Indication:Diabetes mellitus type II, controlled, with no complications (Renamed from Controlled type 2 diabetes mellitus without complication) Start:27-Feb-2022 Instruction Type:Patient Education Patient Instructions Indication:BMI 33.0-33.9,adult Start:18-Nov-2021 Instruction Type:Provider Instructions for Treatment How to Access Health Informa tion Online using Patient Portal and [employer] Apps Indication:Diabetes mellitus type II, controlled, with no complications (Renamed from Controlled type 2 diabetes mellitus without complication) Start:18-Nov-2021 Instruction Type:Patient Education Patient Instructions Indication:Vitamin D deficiency Start:13-Aug-2021 Instruction Type:Provider Instructions for Treatment How to Access Health Informa tion Online using Patient Portal and [employer] Apps Indication:BMI 34.0-34.9,adult Start:13-Aug-2021 Instruction Type:Patient Education Patient Instructions Indication:Temporary low platelet count Start:19-Mar-2021 Instruction Type:Provider Instructions for Treatment How to Access Health Informa tion Online using Patient Portal and [employer] Apps Indication:Nonsmoker Start:19-Mar-2021 Instruction Type:Patient Education Patient Instructions Indication:Acute sinusitis Start:24-Feb-2021 Instruction Type:Provider Instructions for Treatment How to Access Health Informa tion Online using Patient Portal and [employer] Apps Indication:Acute sinusitis Start:24-Feb-2021 Instruction Type:Patient Education How to access health informa tion online Indication:Nonsmoker Start:10-Jun-2020 Instruction Type:Patient Education How to access health informa tion online - Detail Indication:Nonsmoker Start:10-Jun-2020 Instruction Type:Patient Education Patient Instructions Indication:BMI 34.0-34.9,adult Start:10-Jun-2020 Instruction Type:Provider Instructions for Treatment How to access health informa tion online Indication:Nonsmoker Start:23-Feb-2020 Instruction Type:Patient Education How to access health informa tion online - Detail Indication:Nonsmoker Start:23-Feb-2020 Instruction Type:Patient Education Patient Instructions Indication:Nonsmoker Start:23-Feb-2020 Instruction Type:Provider Instructions for Treatment How to access health informa tion online Indication:Nonsmoker Start:21-Feb-2020 Instruction Type:Patient Education How to access health informa tion online - Detail Indication:Nonsmoker Start:21-Feb-2020 Instruction Type:Patient Education Patient Instructions Indication:Nonsmoker Start:21-Feb-2020 Instruction Type:Provider Instructions for Treatment How to access health informa tion online Indication:Nonsmoker Start:16-Feb-2020 Instruction Type:Patient Education How to access health informa tion online - Detail Indication:Nonsmoker Start:16-Feb-2020 Instruction Type:Patient Education Patient Instructions Indication:BMI 34.0-34.9,adult Start:16-Feb-2020 Instruction Type:Provider Instructions for Treatment How to access health informa tion online Indication:Nonsmoker Start:14-Dec-2019 Instruction Type:Patient Education How to access health informa tion online - Detail Indication:Nonsmoker Start:14-Dec-2019 Instruction Type:Patient Education Patient Instructions Indication:Cough Start:14-Dec-2019 Instruction Type:Provider Instructions for Treatment How to access health informa tion online Indication:Diabetes mellitus type II, controlled, with no complications (Renamed from Controlled type 2 diabetes mellitus without complication) Start:06-Nov-2019 Instruction Type:Patient Education How to access health informa tion online - Detail Indication:Diabetes mellitus type II, controlled, with no complications (Renamed from Controlled type 2 diabetes mellitus without complication) Start:06-Nov-2019 Instruction Type:Patient Education Patient Instructions Indication:Vitamin D deficiency Start:06-Nov-2019 Instruction Type:Provider Instructions for Treatment How to access health informa tion online Indication:Diabetes mellitus type II, controlled, with no complications (Renamed from Controlled type 2 diabetes mellitus without complication) Start:28-Aug-2019 Instruction Type:Patient Education How to access health informa tion online - Detail Indication:Diabetes mellitus type II, controlled, with no complications (Renamed from Controlled type 2 diabetes mellitus without complication) Start:28-Aug-2019 Instruction Type:Patient Education Patient Instructions Indication:BMI 33.0-33.9,adult Start:28-Aug-2019 Instruction Type:Provider Instructions for Treatment How to access health informa tion online Indication:Nonsmoker Start:03-Apr-2019 Instruction Type:Patient Education How to access health informa tion online - Detail Indication:Nonsmoker Start:03-Apr-2019 Instruction Type:Patient Education Patient Instructions Indication:Nonsmoker Start:03-Apr-2019 Instruction Type:Provider Instructions for Treatment How to access health informa tion online Indication:Diabetes mellitus type 2, uncontrolled (Renamed from Uncontrolled type 2 diabetes mellitus) Start:13-Mar-2019 Instruction Type:Patient Education How to access health informa tion online - Detail Indication:Diabetes mellitus type 2, uncontrolled (Renamed from Uncontrolled type 2 diabetes mellitus) Start:13-Mar-2019 Instruction Type:Patient Education Patient Instructions Indication:BMI 35.0-35.9,adult Start:13-Mar-2019 Instruction Type:Provider Instructions for Treatment How to access health informa tion online Indication:Diabetes mellitus type II, controlled, with no complications (Renamed from Controlled type 2 diabetes mellitus without complication) Start:19-Jan-2019 Instruction Type:Patient Education How to access health informa tion online - Detail Indication:Diabetes mellitus type II, controlled, with no complications (Renamed from Controlled type 2 diabetes mellitus without complication) Start:19-Jan-2019 Instruction Type:Patient Education Patient Instructions Indication:Hypothyroid Start:19-Jan-2019 Instruction Type:Provider Instructions for Treatment How to access health informa tion online Indication:Nonsmoker Start:05-Oct-2018 Instruction Type:Patient Education How to access health informa tion online - Detail Indication:Nonsmoker Start:05-Oct-2018 Instruction Type:Patient Education Patient Instructions Indication:Atypical lobular hyperplasia of right breast Start:05-Oct-2018 Instruction Type:Provider Instructions for Treatment How to access health informa tion online Indication:BMI 35.0-35.9,adult Start:16-Sep-2018 Instruction Type:Patient Education How to access health informa tion online - Detail Indication:BMI 35.0-35.9,adult Start:16-Sep-2018 Instruction Type:Patient Education Patient Instructions Indication:BMI 35.0-35.9,adult Start:16-Sep-2018 Instruction Type:Provider Instructions for Treatment How to access health informa tion online Indication:Nonsmoker Start:27-Jun-2018 Instruction Type:Patient Education How to access health informa tion online - Detail Indication:Nonsmoker Start:27-Jun-2018 Instruction Type:Patient Education Patient Instructions Indication:Elevated liver enzymes Start:27-Jun-2018 Instruction Type:Provider Instructions for Treatment How to access health informa tion online Indication:Diabetes mellitus type II, controlled, with no complications (Renamed from Controlled type 2 diabetes mellitus without complication) Start:14-Jun-2018 Instruction Type:Patient Education How to access health informa tion online - Detail Indication:Diabetes mellitus type II, controlled, with no complications (Renamed from Controlled type 2 diabetes mellitus without complication) Start:14-Jun-2018 Instruction Type:Patient Education Patient Instructions Indication:Diabetes mellitus type II, controlled, with no complications (Renamed from Controlled type 2 diabetes mellitus without complication) Start:14-Jun-2018 Instruction Type:Provider Instructions for Treatment How to access health informa tion online Indication:Diabetes mellitus type II, controlled, with no complications (Renamed from Controlled type 2 diabetes mellitus without complication) Start:15-Mar-2018 Instruction Type:Patient Education How to access health informa tion online - Detail Indication:Diabetes mellitus type II, controlled, with no complications (Renamed from Controlled type 2 diabetes mellitus without complication) Start:15-Mar-2018 Instruction Type:Patient Education Patient Instructions Indication:Diabetes mellitus type II, controlled, with no complications (Renamed from Controlled type 2 diabetes mellitus without complication) Start:15-Mar-2018 Instruction Type:Provider Instructions for Treatment How to access health informa tion online Indication:Diabetes mellitus type II, controlled, with no complications (Renamed from Controlled type 2 diabetes mellitus without complication) Start:06-Dec-2017 Instruction Type:Patient Education How to access health informa tion online - Detail Indication:Diabetes mellitus type II, controlled, with no complications (Renamed from Controlled type 2 diabetes mellitus without complication) Start:06-Dec-2017 Instruction Type:Patient Education Patient Instructions Indication:Diabetes mellitus type II, controlled, with no complications (Renamed from Controlled type 2 diabetes mellitus without complication) Start:06-Dec-2017 Instruction Type:Provider Instructions for Treatment How to access health informa tion online Indication:Nonsmoker Start:30-Nov-2017 Instruction Type:Patient Education How to access health informa tion online - Detail Indication:Nonsmoker Start:30-Nov-2017 Instruction Type:Patient Education Patient Instructions Indication:Sinusitis, bacterial Start:30-Nov-2017 Instruction Type:Provider Instructions for Treatment How to access health informa tion online Indication:Diabetes mellitus type II, controlled, with no complications (Renamed from Controlled type 2 diabetes mellitus without complication) Start:10-Aug-2017 Instruction Type:Patient Education How to access health informa tion online - Detail Indication:Diabetes mellitus type II, controlled, with no complications (Renamed from Controlled type 2 diabetes mellitus without complication) Start:10-Aug-2017 Instruction Type:Patient Education Patient Instructions Indication:Diabetes mellitus type II, controlled, with no complications (Renamed from Controlled type 2 diabetes mellitus without complication) Start:10-Aug-2017 Instruction Type:Provider Instructions for Treatment How to access health informa tion online Indication:Uncontrolled type 2 diabetes mellitus without complication, without long-term current use of insulin Start:07-May-2017 Instruction Type:Patient Education How to access health informa tion online - Detail Indication:Uncontrolled type 2 diabetes mellitus without complication, without long-term current use of insulin Start:07-May-2017 Instruction Type:Patient Education Patient Instructions Indication:Uncontrolled type 2 diabetes mellitus without complication, without long-term current use of insulin Start:07-May-2017 Instruction Type:Provider Instructions for Treatment Patient Instructions Indication:Nonsmoker Start:09-Feb-2017 Instruction Type:Provider Instructions for Treatment How to access health informa tion online Indication:Uncontrolled type 2 diabetes mellitus without complication, without long-term current use of insulin Start:09-Dec-2016 Instruction Type:Patient Education How to access health informa tion online - Detail Indication:Uncontrolled type 2 diabetes mellitus without complication, without long-term current use of insulin Start:09-Dec-2016 Instruction Type:Patient Education Patient Instructions Indication:Uncontrolled type 2 diabetes mellitus without complication, without long-term current use of insulin Start:09-Dec-2016 Instruction Type:Provider Instructions for Treatment DISCONTINUED - LIPID PANEL ( [id number]) Indication:Hypercholesteremia Start:13-Oct-2016 Instruction Type:Patient Education DISCONTINUED - Glucose, PP/2 Hour (15746) Indication:Family history of diabetes mellitus Start:13-Oct-2016 Instruction Type:Patient Education DISCONTINUED - Hemoglobin Glyclated (HGB A1C) (28685) Indication:Family history of diabetes mellitus Start:13-Oct-2016 Instruction Type:Patient Education How to access health informa tion online Indication:Uncontrolled type 2 diabetes mellitus without complication, without long-term current use of insulin Start:13-Oct-2016 Instruction Type:Patient Education How to access health informa tion online - Detail Indication:Uncontrolled type 2 diabetes mellitus without complication, without long-term current use of insulin Start:13-Oct-2016 Instruction Type:Patient Education Patient Instructions Indication:Uncontrolled type 2 diabetes mellitus without complication, without long-term current use of insulin Start:13-Oct-2016 Instruction Type:Provider Instructions for Treatment Patient Instructions Indication:Nonsmoker Start:30-Sep-2016 Instruction Type:Provider Instructions for Treatment How to access health informa tion online Indication:Uncontrolled type 2 diabetes mellitus without complication, without long-term current use of insulin Start:30-Sep-2016 Instruction Type:Patient Education How to access health informa tion online - Detail Indication:Uncontrolled type 2 diabetes mellitus without complication, without long-term current use of insulin Start:30-Sep-2016 Instruction Type:Patient Education Patient Instructions Indication:Hypothyroid Start:28-Aug-2013 Instruction Type:Provider Instructions for Treatment Patient Instructions Indication:Family history of diabetes mellitus Start:06-Mar-2013 Instruction Type:Provider Instructions for Treatment [facility]; [facility] Work Phone: Instructions* Name Dates Details Patient Instructions Indication:BMI 33.0-33.9,adult Start:12-Aug-2022 Instruction Type:Provider Instructions for Treatment How to Access Health Informa tion Online using Patient Portal and [employer] Apps Indication:BMI 33.0-33.9,adult Start:12-Aug-2022 Instruction Type:Patient Education Patient Instructions Start:07-Jul-2022 Instruction Type:Provider Instructions for Treatment How to Access Health Informa tion Online using Patient Portal and [employer] Start:07-Jul-2022 Instruction Type:Patient Education Patient Instructions Start:26-May-2022 Instruction Type:Provider Instructions for Treatment How to Access Health Informa tion Online using Patient Portal and [employer] Apps Start:26-May-2022 Instruction Type:Patient Education Patient Instructions Start:27-Feb-2022 Instruction Type:Provider Instructions for Treatment How to Access Health Informa tion Online using Patient Portal and [employer] Apps Start:27-Feb-2022 Instruction Type:Patient Education Patient Instructions Indication:BMI 33.0-33.9,adult Start:18-Nov-2021 Instruction Type:Provider Instructions for Treatment How to Access Health Informa tion Online using Patient Portal and [employer] Apps Start:18-Nov-2021 Instruction Type:Patient Education Patient Instructions Indication:Vitamin D deficiency Start:13-Aug-2021 Instruction Type:Provider Instructions for Treatment How to Access Health Informa tion Online using Patient Portal and [employer] Apps Indication:BMI 34.0-34.9,adult Start:13-Aug-2021 Instruction Type:Patient Education Patient Instructions Indication:Temporary low platelet count Start:19-Mar-2021 Instruction Type:Provider Instructions for Treatment How to Access Health Informa tion Online using Patient Portal and [employer] Apps Start:19-Mar-2021 Instruction Type:Patient Education Patient Instructions Indication:Acute sinusitis Start:24-Feb-2021 Instruction Type:Provider Instructions for Treatment How to Access Health Informa tion Online using Patient Portal and [employer] Apps Indication:Acute sinusitis Start:24-Feb-2021 Instruction Type:Patient Education How to access health informa tion online Start:10-Jun-2020 Instruction Type:Patient Education How to access health informa tion online - Detail Start:10-Jun-2020 Instruction Type:Patient Education Patient Instructions Indication:BMI 34.0-34.9,adult Start:10-Jun-2020 Instruction Type:Provider Instructions for Treatment How to access health informa tion online Start:23-Feb-2020 Instruction Type:Patient Education How to access health informa tion online - Detail Start:23-Feb-2020 Instruction Type:Patient Education Patient Instructions Start:23-Feb-2020 Instruction Type:Provider Instructions for Treatment How to access health informa tion online Start:21-Feb-2020 Instruction Type:Patient Education How to access health informa tion online - Detail Start:21-Feb-2020 Instruction Type:Patient Education Patient Instructions Start:21-Feb-2020 Instruction Type:Provider Instructions for Treatment How to access health informa tion online Indication:Nonsmoker Start:16-Feb-2020 Instruction Type:Patient Education How to access health informa tion online - Detail Indication:Nonsmoker Start:16-Feb-2020 Instruction Type:Patient Education Patient Instructions Indication:BMI 34.0-34.9,adult Start:16-Feb-2020 Instruction Type:Provider Instructions for Treatment How to access health informa tion online Indication:Nonsmoker Start:14-Dec-2019 Instruction Type:Patient Education How to access health informa tion online - Detail Indication:Nonsmoker Start:14-Dec-2019 Instruction Type:Patient Education Patient Instructions Indication:Cough Start:14-Dec-2019 Instruction Type:Provider Instructions for Treatment How to access health informa tion online Start:06-Nov-2019 Instruction Type:Patient Education How to access health informa tion online - Detail Start:06-Nov-2019 Instruction Type:Patient Education Patient Instructions Indication:Vitamin D deficiency Start:06-Nov-2019 Instruction Type:Provider Instructions for Treatment How to access health informa tion online Start:28-Aug-2019 Instruction Type:Patient Education How to access health informa tion online - Detail Start:28-Aug-2019 Instruction Type:Patient Education Patient Instructions Indication:BMI 33.0-33.9,adult Start:28-Aug-2019 Instruction Type:Provider Instructions for Treatment How to access health informa tion online Indication:Nonsmoker Start:03-Apr-2019 Instruction Type:Patient Education How to access health informa tion online - Detail Indication:Nonsmoker Start:03-Apr-2019 Instruction Type:Patient Education Patient Instructions Indication:Nonsmoker Start:03-Apr-2019 Instruction Type:Provider Instructions for Treatment How to access health informa tion online Indication:Diabetes mellitus type 2, uncontrolled (Renamed from Uncontrolled type 2 diabetes mellitus) Start:13-Mar-2019 Instruction Type:Patient Education How to access health informa tion online - Detail Indication:Diabetes mellitus type 2, uncontrolled (Renamed from Uncontrolled type 2 diabetes mellitus) Start:13-Mar-2019 Instruction Type:Patient Education Patient Instructions Indication:BMI 35.0-35.9,adult Start:13-Mar-2019 Instruction Type:Provider Instructions for Treatment How to access health informa tion online Start:19-Jan-2019 Instruction Type:Patient Education How to access health informa tion online - Detail Start:19-Jan-2019 Instruction Type:Patient Education Patient Instructions Indication:Hypothyroid Start:19-Jan-2019 Instruction Type:Provider Instructions for Treatment How to access health informa tion online Indication:Nonsmoker Start:05-Oct-2018 Instruction Type:Patient Education How to access health informa tion online - Detail Indication:Nonsmoker Start:05-Oct-2018 Instruction Type:Patient Education Patient Instructions Indication:Atypical lobular hyperplasia of right breast Start:05-Oct-2018 Instruction Type:Provider Instructions for Treatment How to access health informa tion online Indication:BMI 35.0-35.9,adult Start:16-Sep-2018 Instruction Type:Patient Education How to access health informa tion online - Detail Indication:BMI 35.0-35.9,adult Start:16-Sep-2018 Instruction Type:Patient Education Patient Instructions Indication:BMI 35.0-35.9,adult Start:16-Sep-2018 Instruction Type:Provider Instructions for Treatment How to access health informa tion online Indication:Nonsmoker Start:27-Jun-2018 Instruction Type:Patient Education How to access health informa tion online - Detail Indication:Nonsmoker Start:27-Jun-2018 Instruction Type:Patient Education Patient Instructions Indication:Elevated liver enzymes Start:27-Jun-2018 Instruction Type:Provider Instructions for Treatment How to access health informa tion online Start:14-Jun-2018 Instruction Type:Patient Education How to access health informa tion online - Detail Start:14-Jun-2018 Instruction Type:Patient Education Patient Instructions Start:14-Jun-2018 Instruction Type:Provider Instructions for Treatment How to access health informa tion online Start:15-Mar-2018 Instruction Type:Patient Education How to access health informa tion online - Detail Start:15-Mar-2018 Instruction Type:Patient Education Patient Instructions Start:15-Mar-2018 Instruction Type:Provider Instructions for Treatment How to access health informa tion online Start:06-Dec-2017 Instruction Type:Patient Education How to access health informa tion online - Detail Start:06-Dec-2017 Instruction Type:Patient Education Patient Instructions Start:06-Dec-2017 Instruction Type:Provider Instructions for Treatment How to access health informa tion online Indication:Nonsmoker Start:30-Nov-2017 Instruction Type:Patient Education How to access health informa tion online - Detail Indication:Nonsmoker Start:30-Nov-2017 Instruction Type:Patient Education Patient Instructions Indication:Sinusitis, bacterial Start:30-Nov-2017 Instruction Type:Provider Instructions for Treatment How to access health informa tion online Start:10-Aug-2017 Instruction Type:Patient Education How to access health informa tion online - Detail Start:10-Aug-2017 Instruction Type:Patient Education Patient Instructions Start:10-Aug-2017 Instruction Type:Provider Instructions for Treatment How to access health informa tion online Indication:Uncontrolled type 2 diabetes mellitus without complication, without long-term current use of insulin Start:07-May-2017 Instruction Type:Patient Education How to access health informa tion online - Detail Indication:Uncontrolled type 2 diabetes mellitus without complication, without long-term current use of insulin Start:07-May-2017 Instruction Type:Patient Education Patient Instructions Indication:Uncontrolled type 2 diabetes mellitus without complication, without long-term current use of insulin Start:07-May-2017 Instruction Type:Provider Instructions for Treatment Patient Instructions Indication:Nonsmoker Start:09-Feb-2017 Instruction Type:Provider Instructions for Treatment How to access health informa tion online Indication:Uncontrolled type 2 diabetes mellitus without complication, without long-term current use of insulin Start:09-Dec-2016 Instruction Type:Patient Education How to access health informa tion online - Detail Indication:Uncontrolled type 2 diabetes mellitus without complication, without long-term current use of insulin Start:09-Dec-2016 Instruction Type:Patient Education Patient Instructions Indication:Uncontrolled type 2 diabetes mellitus without complication, without long-term current use of insulin Start:09-Dec-2016 Instruction Type:Provider Instructions for Treatment DISCONTINUED - LIPID PANEL ( [id number]) Indication:Hypercholesteremia Start:13-Oct-2016 Instruction Type:Patient Education DISCONTINUED - Glucose, PP/2 Hour (41920) Indication:Family history of diabetes mellitus Start:13-Oct-2016 Instruction Type:Patient Education DISCONTINUED - Hemoglobin Glyclated (HGB A1C) (36385) Indication:Family history of diabetes mellitus Start:13-Oct-2016 Instruction Type:Patient Education How to access health informa tion online Indication:Uncontrolled type 2 diabetes mellitus without complication, without long-term current use of insulin Start:13-Oct-2016 Instruction Type:Patient Education How to access health informa tion online - Detail Indication:Uncontrolled type 2 diabetes mellitus without complication, without long-term current use of insulin Start:13-Oct-2016 Instruction Type:Patient Education Patient Instructions Indication:Uncontrolled type 2 diabetes mellitus without complication, without long-term current use of insulin Start:13-Oct-2016 Instruction Type:Provider Instructions for Treatment Patient Instructions Indication:Nonsmoker Start:30-Sep-2016 Instruction Type:Provider Instructions for Treatment How to access health informa tion online Indication:Uncontrolled type 2 diabetes mellitus without complication, without long-term current use of insulin Start:30-Sep-2016 Instruction Type:Patient Education How to access health informa tion online - Detail Indication:Uncontrolled type 2 diabetes mellitus without complication, without long-term current use of insulin Start:30-Sep-2016 Instruction Type:Patient Education Patient Instructions Indication:Hypothyroid Start:28-Aug-2013 Instruction Type:Provider Instructions for Treatment Patient Instructions Indication:Family history of diabetes mellitus Start:06-Mar-2013 Instruction Type:Provider Instructions for Treatment [facility]; [facility] Work Phone: Instructions* Name Dates Details How to Access Health Informa tion Online using Patient Portal and [employer] Indication:Diabetes mellitus type II, controlled, with no complications (Renamed from Controlled type 2 diabetes mellitus without complication) Start:22-Sep-2022 Instruction Type:Patient Education Patient Instructions Indication:Diabetes mellitus type II, controlled, with no complications (Renamed from Controlled type 2 diabetes mellitus without complication) Start:22-Sep-2022 Instruction Type:Provider Instructions for Treatment Patient Instructions Indication:BMI 33.0-33.9,adult Start:12-Aug-2022 Instruction Type:Provider Instructions for Treatment How to Access Health Informa tion Online using Patient Portal and [employer] Apps Indication:BMI 33.0-33.9,adult Start:12-Aug-2022 Instruction Type:Patient Education Patient Instructions Indication:Nonsmoker Start:07-Jul-2022 Instruction Type:Provider Instructions for Treatment How to Access Health Informa tion Online using Patient Portal and [employer] Apps Indication:Nonsmoker Start:07-Jul-2022 Instruction Type:Patient Education Patient Instructions Indication:Nonsmoker Start:26-May-2022 Instruction Type:Provider Instructions for Treatment How to Access Health Informa tion Online using Patient Portal and [employer] Apps Indication:Nonsmoker Start:26-May-2022 Instruction Type:Patient Education Patient Instructions Indication:Diabetes mellitus type II, controlled, with no complications (Renamed from Controlled type 2 diabetes mellitus without complication) Start:27-Feb-2022 Instruction Type:Provider Instructions for Treatment How to Access Health Informa tion Online using Patient Portal and [employer] Apps Indication:Diabetes mellitus type II, controlled, with no complications (Renamed from Controlled type 2 diabetes mellitus without complication) Start:27-Feb-2022 Instruction Type:Patient Education Patient Instructions Indication:BMI 33.0-33.9,adult Start:18-Nov-2021 Instruction Type:Provider Instructions for Treatment How to Access Health Informa tion Online using Patient Portal and [employer] Apps Indication:Diabetes mellitus type II, controlled, with no complications (Renamed from Controlled type 2 diabetes mellitus without complication) Start:18-Nov-2021 Instruction Type:Patient Education Patient Instructions Indication:Vitamin D deficiency Start:13-Aug-2021 Instruction Type:Provider Instructions for Treatment How to Access Health Informa tion Online using Patient Portal and [employer] Indication:BMI 34.0-34.9,adult Start:13-Aug-2021 Instruction Type:Patient Education Patient Instructions Indication:Temporary low platelet count Start:19-Mar-2021 Instruction Type:Provider Instructions for Treatment How to Access Health Informa tion Online using Patient Portal and [employer] Apps Indication:Nonsmoker Start:19-Mar-2021 Instruction Type:Patient Education Patient Instructions Indication:Acute sinusitis Start:24-Feb-2021 Instruction Type:Provider Instructions for Treatment How to Access Health Informa tion Online using Patient Portal and [employer] Apps Indication:Acute sinusitis Start:24-Feb-2021 Instruction Type:Patient Education How to access health informa tion online Indication:Nonsmoker Start:10-Jun-2020 Instruction Type:Patient Education How to access health informa tion online - Detail Indication:Nonsmoker Start:10-Jun-2020 Instruction Type:Patient Education Patient Instructions Indication:BMI 34.0-34.9,adult Start:10-Jun-2020 Instruction Type:Provider Instructions for Treatment How to access health informa tion online Indication:Nonsmoker Start:23-Feb-2020 Instruction Type:Patient Education How to access health informa tion online - Detail Indication:Nonsmoker Start:23-Feb-2020 Instruction Type:Patient Education Patient Instructions Indication:Nonsmoker Start:23-Feb-2020 Instruction Type:Provider Instructions for Treatment How to access health informa tion online Indication:Nonsmoker Start:21-Feb-2020 Instruction Type:Patient Education How to access health informa tion online - Detail Indication:Nonsmoker Start:21-Feb-2020 Instruction Type:Patient Education Patient Instructions Indication:Nonsmoker Start:21-Feb-2020 Instruction Type:Provider Instructions for Treatment How to access health informa tion online Indication:Nonsmoker Start:16-Feb-2020 Instruction Type:Patient Education How to access health informa tion online - Detail Indication:Nonsmoker Start:16-Feb-2020 Instruction Type:Patient Education Patient Instructions Indication:BMI 34.0-34.9,adult Start:16-Feb-2020 Instruction Type:Provider Instructions for Treatment How to access health informa tion online Indication:Nonsmoker Start:14-Dec-2019 Instruction Type:Patient Education How to access health informa tion online - Detail Indication:Nonsmoker Start:14-Dec-2019 Instruction Type:Patient Education Patient Instructions Indication:Cough Start:14-Dec-2019 Instruction Type:Provider Instructions for Treatment How to access health informa tion online Indication:Diabetes mellitus type II, controlled, with no complications (Renamed from Controlled type 2 diabetes mellitus without complication) Start:06-Nov-2019 Instruction Type:Patient Education How to access health informa tion online - Detail Indication:Diabetes mellitus type II, controlled, with no complications (Renamed from Controlled type 2 diabetes mellitus without complication) Start:06-Nov-2019 Instruction Type:Patient Education Patient Instructions Indication:Vitamin D deficiency Start:06-Nov-2019 Instruction Type:Provider Instructions for Treatment How to access health informa tion online Indication:Diabetes mellitus type II, controlled, with no complications (Renamed from Controlled type 2 diabetes mellitus without complication) Start:28-Aug-2019 Instruction Type:Patient Education How to access health informa tion online - Detail Indication:Diabetes mellitus type II, controlled, with no complications (Renamed from Controlled type 2 diabetes mellitus without complication) Start:28-Aug-2019 Instruction Type:Patient Education Patient Instructions Indication:BMI 33.0-33.9,adult Start:28-Aug-2019 Instruction Type:Provider Instructions for Treatment How to access health informa tion online Indication:Nonsmoker Start:03-Apr-2019 Instruction Type:Patient Education How to access health informa tion online - Detail Indication:Nonsmoker Start:03-Apr-2019 Instruction Type:Patient Education Patient Instructions Indication:Nonsmoker Start:03-Apr-2019 Instruction Type:Provider Instructions for Treatment How to access health informa tion online Indication:Diabetes mellitus type 2, uncontrolled (Renamed from Uncontrolled type 2 diabetes mellitus) Start:13-Mar-2019 Instruction Type:Patient Education How to access health informa tion online - Detail Indication:Diabetes mellitus type 2, uncontrolled (Renamed from Uncontrolled type 2 diabetes mellitus) Start:13-Mar-2019 Instruction Type:Patient Education Patient Instructions Indication:BMI 35.0-35.9,adult Start:13-Mar-2019 Instruction Type:Provider Instructions for Treatment How to access health informa tion online Indication:Diabetes mellitus type II, controlled, with no complications (Renamed from Controlled type 2 diabetes mellitus without complication) Start:19-Jan-2019 Instruction Type:Patient Education How to access health informa tion online - Detail Indication:Diabetes mellitus type II, controlled, with no complications (Renamed from Controlled type 2 diabetes mellitus without complication) Start:19-Jan-2019 Instruction Type:Patient Education Patient Instructions Indication:Hypothyroid Start:19-Jan-2019 Instruction Type:Provider Instructions for Treatment How to access health informa tion online Indication:Nonsmoker Start:05-Oct-2018 Instruction Type:Patient Education How to access health informa tion online - Detail Indication:Nonsmoker Start:05-Oct-2018 Instruction Type:Patient Education Patient Instructions Indication:Atypical lobular hyperplasia of right breast Start:05-Oct-2018 Instruction Type:Provider Instructions for Treatment How to access health informa tion online Indication:BMI 35.0-35.9,adult Start:16-Sep-2018 Instruction Type:Patient Education How to access health informa tion online - Detail Indication:BMI 35.0-35.9,adult Start:16-Sep-2018 Instruction Type:Patient Education Patient Instructions Indication:BMI 35.0-35.9,adult Start:16-Sep-2018 Instruction Type:Provider Instructions for Treatment How to access health informa tion online Indication:Nonsmoker Start:27-Jun-2018 Instruction Type:Patient Education How to access health informa tion online - Detail Indication:Nonsmoker Start:27-Jun-2018 Instruction Type:Patient Education Patient Instructions Indication:Elevated liver enzymes Start:27-Jun-2018 Instruction Type:Provider Instructions for Treatment How to access health informa tion online Indication:Diabetes mellitus type II, controlled, with no complications (Renamed from Controlled type 2 diabetes mellitus without complication) Start:14-Jun-2018 Instruction Type:Patient Education How to access health informa tion online - Detail Indication:Diabetes mellitus type II, controlled, with no complications (Renamed from Controlled type 2 diabetes mellitus without complication) Start:14-Jun-2018 Instruction Type:Patient Education Patient Instructions Indication:Diabetes mellitus type II, controlled, with no complications (Renamed from Controlled type 2 diabetes mellitus without complication) Start:14-Jun-2018 Instruction Type:Provider Instructions for Treatment How to access health informa tion online Indication:Diabetes mellitus type II, controlled, with no complications (Renamed from Controlled type 2 diabetes mellitus without complication) Start:15-Mar-2018 Instruction Type:Patient Education How to access health informa tion online - Detail Indication:Diabetes mellitus type II, controlled, with no complications (Renamed from Controlled type 2 diabetes mellitus without complication) Start:15-Mar-2018 Instruction Type:Patient Education Patient Instructions Indication:Diabetes mellitus type II, controlled, with no complications (Renamed from Controlled type 2 diabetes mellitus without complication) Start:15-Mar-2018 Instruction Type:Provider Instructions for Treatment How to access health informa tion online Indication:Diabetes mellitus type II, controlled, with no complications (Renamed from Controlled type 2 diabetes mellitus without complication) Start:06-Dec-2017 Instruction Type:Patient Education How to access health informa tion online - Detail Indication:Diabetes mellitus type II, controlled, with no complications (Renamed from Controlled type 2 diabetes mellitus without complication) Start:06-Dec-2017 Instruction Type:Patient Education Patient Instructions Indication:Diabetes mellitus type II, controlled, with no complications (Renamed from Controlled type 2 diabetes mellitus without complication) Start:06-Dec-2017 Instruction Type:Provider Instructions for Treatment How to access health informa tion online Indication:Nonsmoker Start:30-Nov-2017 Instruction Type:Patient Education How to access health informa tion online - Detail Indication:Nonsmoker Start:30-Nov-2017 Instruction Type:Patient Education Patient Instructions Indication:Sinusitis, bacterial Start:30-Nov-2017 Instruction Type:Provider Instructions for Treatment How to access health informa tion online Indication:Diabetes mellitus type II, controlled, with no complications (Renamed from Controlled type 2 diabetes mellitus without complication) Start:10-Aug-2017 Instruction Type:Patient Education How to access health informa tion online - Detail Indication:Diabetes mellitus type II, controlled, with no complications (Renamed from Controlled type 2 diabetes mellitus without complication) Start:10-Aug-2017 Instruction Type:Patient Education Patient Instructions Indication:Diabetes mellitus type II, controlled, with no complications (Renamed from Controlled type 2 diabetes mellitus without complication) Start:10-Aug-2017 Instruction Type:Provider Instructions for Treatment How to access health informa tion online Indication:Uncontrolled type 2 diabetes mellitus without complication, without long-term current use of insulin Start:07-May-2017 Instruction Type:Patient Education How to access health informa tion online - Detail Indication:Uncontrolled type 2 diabetes mellitus without complication, without long-term current use of insulin Start:07-May-2017 Instruction Type:Patient Education Patient Instructions Indication:Uncontrolled type 2 diabetes mellitus without complication, without long-term current use of insulin Start:07-May-2017 Instruction Type:Provider Instructions for Treatment Patient Instructions Indication:Nonsmoker Start:09-Feb-2017 Instruction Type:Provider Instructions for Treatment How to access health informa tion online Indication:Uncontrolled type 2 diabetes mellitus without complication, without long-term current use of insulin Start:09-Dec-2016 Instruction Type:Patient Education How to access health informa tion online - Detail Indication:Uncontrolled type 2 diabetes mellitus without complication, without long-term current use of insulin Start:09-Dec-2016 Instruction Type:Patient Education Patient Instructions Indication:Uncontrolled type 2 diabetes mellitus without complication, without long-term current use of insulin Start:09-Dec-2016 Instruction Type:Provider Instructions for Treatment DISCONTINUED - LIPID PANEL ( [id number]) Indication:Hypercholesteremia Start:13-Oct-2016 Instruction Type:Patient Education DISCONTINUED - Glucose, PP/2 Hour (47737) Indication:Family history of diabetes mellitus Start:13-Oct-2016 Instruction Type:Patient Education DISCONTINUED - Hemoglobin Glyclated (HGB A1C) ([id number]) Indication:Family history of diabetes mellitus Start:13-Oct-2016 Instruction Type:Patient Education How to access health informa tion online Indication:Uncontrolled type 2 diabetes mellitus without complication, without long-term current use of insulin Start:13-Oct-2016 Instruction Type:Patient Education How to access health informa tion online - Detail Indication:Uncontrolled type 2 diabetes mellitus without complication, without long-term current use of insulin Start:13-Oct-2016 Instruction Type:Patient Education Patient Instructions Indication:Uncontrolled type 2 diabetes mellitus without complication, without long-term current use of insulin Start:13-Oct-2016 Instruction Type:Provider Instructions for Treatment Patient Instructions Indication:Nonsmoker Start:30-Sep-2016 Instruction Type:Provider Instructions for Treatment How to access health informa tion online Indication:Uncontrolled type 2 diabetes mellitus without complication, without long-term current use of insulin Start:30-Sep-2016 Instruction Type:Patient Education How to access health informa tion online - Detail Indication:Uncontrolled type 2 diabetes mellitus without complication, without long-term current use of insulin Start:30-Sep-2016 Instruction Type:Patient Education Patient Instructions Indication:Hypothyroid Start:28-Aug-2013 Instruction Type:Provider Instructions for Treatment Patient Instructions Indication:Family history of diabetes mellitus Start:06-Mar-2013 Instruction Type:Provider Instructions for Treatment [facility]; [facility] Work Phone: Instructions* Name Dates Details How to Access Health Informa tion Online using Patient Portal and [employer] Indication:Diabetes mellitus type II, controlled, with no complications (Renamed from Controlled type 2 diabetes mellitus without complication) Start:22-Sep-2022 Instruction Type:Patient Education Patient Instructions Indication:Diabetes mellitus type II, controlled, with no complications (Renamed from Controlled type 2 diabetes mellitus without complication) Start:22-Sep-2022 Instruction Type:Provider Instructions for Treatment Patient Instructions Indication:BMI 33.0-33.9,adult Start:12-Aug-2022 Instruction Type:Provider Instructions for Treatment How to Access Health Informa tion Online using Patient Portal and [employer] Apps Indication:BMI 33.0-33.9,adult Start:12-Aug-2022 Instruction Type:Patient Education Patient Instructions Indication:Nonsmoker Start:07-Jul-2022 Instruction Type:Provider Instructions for Treatment How to Access Health Informa tion Online using Patient Portal and [employer] Apps Indication:Nonsmoker Start:07-Jul-2022 Instruction Type:Patient Education Patient Instructions Indication:Nonsmoker Start:26-May-2022 Instruction Type:Provider Instructions for Treatment How to Access Health Informa tion Online using Patient Portal and [employer] Apps Indication:Nonsmoker Start:26-May-2022 Instruction Type:Patient Education Patient Instructions Indication:Diabetes mellitus type II, controlled, with no complications (Renamed from Controlled type 2 diabetes mellitus without complication) Start:27-Feb-2022 Instruction Type:Provider Instructions for Treatment How to Access Health Informa tion Online using Patient Portal and [employer] Apps Indication:Diabetes mellitus type II, controlled, with no complications (Renamed from Controlled type 2 diabetes mellitus without complication) Start:27-Feb-2022 Instruction Type:Patient Education Patient Instructions Indication:BMI 33.0-33.9,adult Start:18-Nov-2021 Instruction Type:Provider Instructions for Treatment How to Access Health Informa tion Online using Patient Portal and [employer] Apps Indication:Diabetes mellitus type II, controlled, with no complications (Renamed from Controlled type 2 diabetes mellitus without complication) Start:18-Nov-2021 Instruction Type:Patient Education Patient Instructions Indication:Vitamin D deficiency Start:13-Aug-2021 Instruction Type:Provider Instructions for Treatment How to Access Health Informa tion Online using Patient Portal and [employer] Apps Indication:BMI 34.0-34.9,adult Start:13-Aug-2021 Instruction Type:Patient Education Patient Instructions Indication:Temporary low platelet count Start:19-Mar-2021 Instruction Type:Provider Instructions for Treatment How to Access Health Informa tion Online using Patient Portal and [employer] Apps Indication:Nonsmoker Start:19-Mar-2021 Instruction Type:Patient Education Patient Instructions Indication:Acute sinusitis Start:24-Feb-2021 Instruction Type:Provider Instructions for Treatment How to Access Health Informa tion Online using Patient Portal and [employer] Apps Indication:Acute sinusitis Start:24-Feb-2021 Instruction Type:Patient Education How to access health informa tion online Indication:Nonsmoker Start:10-Jun-2020 Instruction Type:Patient Education How to access health informa tion online - Detail Indication:Nonsmoker Start:10-Jun-2020 Instruction Type:Patient Education Patient Instructions Indication:BMI 34.0-34.9,adult Start:10-Jun-2020 Instruction Type:Provider Instructions for Treatment How to access health informa tion online Indication:Nonsmoker Start:23-Feb-2020 Instruction Type:Patient Education How to access health informa tion online - Detail Indication:Nonsmoker Start:23-Feb-2020 Instruction Type:Patient Education Patient Instructions Indication:Nonsmoker Start:23-Feb-2020 Instruction Type:Provider Instructions for Treatment How to access health informa tion online Indication:Nonsmoker Start:21-Feb-2020 Instruction Type:Patient Education How to access health informa tion online - Detail Indication:Nonsmoker Start:21-Feb-2020 Instruction Type:Patient Education Patient Instructions Indication:Nonsmoker Start:21-Feb-2020 Instruction Type:Provider Instructions for Treatment How to access health informa tion online Indication:Nonsmoker Start:16-Feb-2020 Instruction Type:Patient Education How to access health informa tion online - Detail Indication:Nonsmoker Start:16-Feb-2020 Instruction Type:Patient Education Patient Instructions Indication:BMI 34.0-34.9,adult Start:16-Feb-2020 Instruction Type:Provider Instructions for Treatment How to access health informa tion online Indication:Nonsmoker Start:14-Dec-2019 Instruction Type:Patient Education How to access health informa tion online - Detail Indication:Nonsmoker Start:14-Dec-2019 Instruction Type:Patient Education Patient Instructions Indication:Cough Start:14-Dec-2019 Instruction Type:Provider Instructions for Treatment How to access health informa tion online Indication:Diabetes mellitus type II, controlled, with no complications (Renamed from Controlled type 2 diabetes mellitus without complication) Start:06-Nov-2019 Instruction Type:Patient Education How to access health informa tion online - Detail Indication:Diabetes mellitus type II, controlled, with no complications (Renamed from Controlled type 2 diabetes mellitus without complication) Start:06-Nov-2019 Instruction Type:Patient Education Patient Instructions Indication:Vitamin D deficiency Start:06-Nov-2019 Instruction Type:Provider Instructions for Treatment How to access health informa tion online Indication:Diabetes mellitus type II, controlled, with no complications (Renamed from Controlled type 2 diabetes mellitus without complication) Start:28-Aug-2019 Instruction Type:Patient Education How to access health informa tion online - Detail Indication:Diabetes mellitus type II, controlled, with no complications (Renamed from Controlled type 2 diabetes mellitus without complication) Start:28-Aug-2019 Instruction Type:Patient Education Patient Instructions Indication:BMI 33.0-33.9,adult Start:28-Aug-2019 Instruction Type:Provider Instructions for Treatment How to access health informa tion online Indication:Nonsmoker Start:03-Apr-2019 Instruction Type:Patient Education How to access health informa tion online - Detail Indication:Nonsmoker Start:03-Apr-2019 Instruction Type:Patient Education Patient Instructions Indication:Nonsmoker Start:03-Apr-2019 Instruction Type:Provider Instructions for Treatment How to access health informa tion online Indication:Diabetes mellitus type 2, uncontrolled (Renamed from Uncontrolled type 2 diabetes mellitus) Start:13-Mar-2019 Instruction Type:Patient Education How to access health informa tion online - Detail Indication:Diabetes mellitus type 2, uncontrolled (Renamed from Uncontrolled type 2 diabetes mellitus) Start:13-Mar-2019 Instruction Type:Patient Education Patient Instructions Indication:BMI 35.0-35.9,adult Start:13-Mar-2019 Instruction Type:Provider Instructions for Treatment How to access health informa tion online Indication:Diabetes mellitus type II, controlled, with no complications (Renamed from Controlled type 2 diabetes mellitus without complication) Start:19-Jan-2019 Instruction Type:Patient Education How to access health informa tion online - Detail Indication:Diabetes mellitus type II, controlled, with no complications (Renamed from Controlled type 2 diabetes mellitus without complication) Start:19-Jan-2019 Instruction Type:Patient Education Patient Instructions Indication:Hypothyroid Start:19-Jan-2019 Instruction Type:Provider Instructions for Treatment How to access health informa tion online Indication:Nonsmoker Start:05-Oct-2018 Instruction Type:Patient Education How to access health informa tion online - Detail Indication:Nonsmoker Start:05-Oct-2018 Instruction Type:Patient Education Patient Instructions Indication:Atypical lobular hyperplasia of right breast Start:05-Oct-2018 Instruction Type:Provider Instructions for Treatment How to access health informa tion online Indication:BMI 35.0-35.9,adult Start:16-Sep-2018 Instruction Type:Patient Education How to access health informa tion online - Detail Indication:BMI 35.0-35.9,adult Start:16-Sep-2018 Instruction Type:Patient Education Patient Instructions Indication:BMI 35.0-35.9,adult Start:16-Sep-2018 Instruction Type:Provider Instructions for Treatment How to access health informa tion online Indication:Nonsmoker Start:27-Jun-2018 Instruction Type:Patient Education How to access health informa tion online - Detail Indication:Nonsmoker Start:27-Jun-2018 Instruction Type:Patient Education Patient Instructions Indication:Elevated liver enzymes Start:27-Jun-2018 Instruction Type:Provider Instructions for Treatment How to access health informa tion online Indication:Diabetes mellitus type II, controlled, with no complications (Renamed from Controlled type 2 diabetes mellitus without complication) Start:14-Jun-2018 Instruction Type:Patient Education How to access health informa tion online - Detail Indication:Diabetes mellitus type II, controlled, with no complications (Renamed from Controlled type 2 diabetes mellitus without complication) Start:14-Jun-2018 Instruction Type:Patient Education Patient Instructions Indication:Diabetes mellitus type II, controlled, with no complications (Renamed from Controlled type 2 diabetes mellitus without complication) Start:14-Jun-2018 Instruction Type:Provider Instructions for Treatment How to access health informa tion online Indication:Diabetes mellitus type II, controlled, with no complications (Renamed from Controlled type 2 diabetes mellitus without complication) Start:15-Mar-2018 Instruction Type:Patient Education How to access health informa tion online - Detail Indication:Diabetes mellitus type II, controlled, with no complications (Renamed from Controlled type 2 diabetes mellitus without complication) Start:15-Mar-2018 Instruction Type:Patient Education Patient Instructions Indication:Diabetes mellitus type II, controlled, with no complications (Renamed from Controlled type 2 diabetes mellitus without complication) Start:15-Mar-2018 Instruction Type:Provider Instructions for Treatment How to access health informa tion online Indication:Diabetes mellitus type II, controlled, with no complications (Renamed from Controlled type 2 diabetes mellitus without complication) Start:06-Dec-2017 Instruction Type:Patient Education How to access health informa tion online - Detail Indication:Diabetes mellitus type II, controlled, with no complications (Renamed from Controlled type 2 diabetes mellitus without complication) Start:06-Dec-2017 Instruction Type:Patient Education Patient Instructions Indication:Diabetes mellitus type II, controlled, with no complications (Renamed from Controlled type 2 diabetes mellitus without complication) Start:06-Dec-2017 Instruction Type:Provider Instructions for Treatment How to access health informa tion online Indication:Nonsmoker Start:30-Nov-2017 Instruction Type:Patient Education How to access health informa tion online - Detail Indication:Nonsmoker Start:30-Nov-2017 Instruction Type:Patient Education Patient Instructions Indication:Sinusitis, bacterial Start:30-Nov-2017 Instruction Type:Provider Instructions for Treatment How to access health [employer] online Indication:Diabetes mellitus type II, controlled, with no complications (Renamed from Controlled type 2 diabetes mellitus without complication) Start:10-Aug-2017 Instruction Type:Patient Education How to access health informa tion online - Detail Indication:Diabetes mellitus type II, controlled, with no complications (Renamed from Controlled type 2 diabetes mellitus without complication) Start:10-Aug-2017 Instruction Type:Patient Education Patient Instructions Indication:Diabetes mellitus type II, controlled, with no complications (Renamed from Controlled type 2 diabetes mellitus without complication) Start:10-Aug-2017 Instruction Type:Provider Instructions for Treatment How to access health informa tion online Indication:Uncontrolled type 2 diabetes mellitus without complication, without long-term current use of insulin Start:07-May-2017 Instruction Type:Patient Education How to access health informa tion online - Detail Indication:Uncontrolled type 2 diabetes mellitus without complication, without long-term current use of insulin Start:07-May-2017 Instruction Type:Patient Education Patient Instructions Indication:Uncontrolled type 2 diabetes mellitus without complication, without long-term current use of insulin Start:07-May-2017 Instruction Type:Provider Instructions for Treatment Patient Instructions Indication:Nonsmoker Start:09-Feb-2017 Instruction Type:Provider Instructions for Treatment How to access health informa [employer] online Indication:Uncontrolled type 2 diabetes mellitus without complication, without long-term current use of insulin Start:09-Dec-2016 Instruction Type:Patient Education How to access health informa tion online - Detail Indication:Uncontrolled type 2 diabetes mellitus without complication, without long-term current use of insulin Start:09-Dec-2016 Instruction Type:Patient Education Patient Instructions Indication:Uncontrolled type 2 diabetes mellitus without complication, without long-term current use of insulin Start:09-Dec-2016 Instruction Type:Provider Instructions for Treatment DISCONTINUED - LIPID PANEL ( [id number]) Indication:Hypercholesteremia Start:13-Oct-2016 Instruction Type:Patient Education DISCONTINUED - Glucose, PP/2 Hour (73427) Indication:Family history of diabetes mellitus Start:13-Oct-2016 Instruction Type:Patient Education DISCONTINUED - Hemoglobin Glyclated (HGB A1C) (93280) Indication:Family history of diabetes mellitus Start:13-Oct-2016 Instruction Type:Patient Education How to access health informa tion online Indication:Uncontrolled type 2 diabetes mellitus without complication, without long-term current use of insulin Start:13-Oct-2016 Instruction Type:Patient Education How to access health informa tion online - Detail Indication:Uncontrolled type 2 diabetes mellitus without complication, without long-term current use of insulin Start:13-Oct-2016 Instruction Type:Patient Education Patient Instructions Indication:Uncontrolled type 2 diabetes mellitus without complication, without long-term current use of insulin Start:13-Oct-2016 Instruction Type:Provider Instructions for Treatment Patient Instructions Indication:Nonsmoker Start:30-Sep-2016 Instruction Type:Provider Instructions for Treatment How to access health informa tion online Indication:Uncontrolled type 2 diabetes mellitus without complication, without long-term current use of insulin Start:30-Sep-2016 Instruction Type:Patient Education How to access health informa tion online - Detail Indication:Uncontrolled type 2 diabetes mellitus without complication, without long-term current use of insulin Start:30-Sep-2016 Instruction Type:Patient Education Patient Instructions Indication:Hypothyroid Start:28-Aug-2013 Instruction Type:Provider Instructions for Treatment Patient Instructions Indication:Family history of diabetes mellitus Start:06-Mar-2013 Instruction Type:Provider Instructions for Treatment [facility]; [facility] Work Phone: Instructions* Name Dates Details How to Access Health Informa tion Online using Patient Portal and [employer] Indication:Diabetes mellitus type II, controlled, with no complications (Renamed from Controlled type 2 diabetes mellitus without complication) Start:22-Sep-2022 Instruction Type:Patient Education Patient Instructions Indication:Diabetes mellitus type II, controlled, with no complications (Renamed from Controlled type 2 diabetes mellitus without complication) Start:22-Sep-2022 Instruction Type:Provider Instructions for Treatment Patient Instructions Indication:BMI 33.0-33.9,adult Start:12-Aug-2022 Instruction Type:Provider Instructions for Treatment How to Access Health Informa tion Online using Patient Portal and [employer] Indication:BMI 33.0-33.9,adult Start:12-Aug-2022 Instruction Type:Patient Education Patient Instructions Indication:Nonsmoker Start:07-Jul-2022 Instruction Type:Provider Instructions for Treatment How to Access Health Informa tion Online using Patient Portal and [employer] Indication:Nonsmoker Start:07-Jul-2022 Instruction Type:Patient Education Patient Instructions Indication:Nonsmoker Start:26-May-2022 Instruction Type:Provider Instructions for Treatment How to Access Health Informa tion Online using Patient Portal and [employer] Indication:Nonsmoker Start:26-May-2022 Instruction Type:Patient Education Patient Instructions Indication:Diabetes mellitus type II, controlled, with no complications (Renamed from Controlled type 2 diabetes mellitus without complication) Start:27-Feb-2022 Instruction Type:Provider Instructions for Treatment How to Access Health Informa tion Online using Patient Portal and [employer] Indication:Diabetes mellitus type II, controlled, with no complications (Renamed from Controlled type 2 diabetes mellitus without complication) Start:27-Feb-2022 Instruction Type:Patient Education Patient Instructions Indication:BMI 33.0-33.9,adult Start:18-Nov-2021 Instruction Type:Provider Instructions for Treatment How to Access Health Informa tion Online using Patient Portal and [employer] Indication:Diabetes mellitus type II, controlled, with no complications (Renamed from Controlled type 2 diabetes mellitus without complication) Start:18-Nov-2021 Instruction Type:Patient Education Patient Instructions Indication:Vitamin D deficiency Start:13-Aug-2021 Instruction Type:Provider Instructions for Treatment How to Access Health Informa tion Online using Patient Portal and [employer] Indication:BMI 34.0-34.9,adult Start:13-Aug-2021 Instruction Type:Patient Education Patient Instructions Indication:Temporary low platelet count Start:19-Mar-2021 Instruction Type:Provider Instructions for Treatment How to Access Health Informa tion Online using Patient Portal and [employer] Indication:Nonsmoker Start:19-Mar-2021 Instruction Type:Patient Education Patient Instructions Indication:Acute sinusitis Start:24-Feb-2021 Instruction Type:Provider Instructions for Treatment How to Access Health Informa tion Online using Patient Portal and [employer] Indication:Acute sinusitis Start:24-Feb-2021 Instruction Type:Patient Education How to access health informa tion online Indication:Nonsmoker Start:10-Jun-2020 Instruction Type:Patient Education How to access health informa tion online - Detail Indication:Nonsmoker Start:10-Jun-2020 Instruction Type:Patient Education Patient Instructions Indication:BMI 34.0-34.9,adult Start:10-Jun-2020 Instruction Type:Provider Instructions for Treatment How to access health informa tion online Indication:Nonsmoker Start:23-Feb-2020 Instruction Type:Patient Education How to access health informa tion online - Detail Indication:Nonsmoker Start:23-Feb-2020 Instruction Type:Patient Education Patient Instructions Indication:Nonsmoker Start:23-Feb-2020 Instruction Type:Provider Instructions for Treatment How to access health informa tion online Indication:Nonsmoker Start:21-Feb-2020 Instruction Type:Patient Education How to access health informa tion online - Detail Indication:Nonsmoker Start:21-Feb-2020 Instruction Type:Patient Education Patient Instructions Indication:Nonsmoker Start:21-Feb-2020 Instruction Type:Provider Instructions for Treatment How to access health informa tion online Indication:Nonsmoker Start:16-Feb-2020 Instruction Type:Patient Education How to access health informa tion online - Detail Indication:Nonsmoker Start:16-Feb-2020 Instruction Type:Patient Education Patient Instructions Indication:BMI 34.0-34.9,adult Start:16-Feb-2020 Instruction Type:Provider Instructions for Treatment How to access health informa tion online Indication:Nonsmoker Start:14-Dec-2019 Instruction Type:Patient Education How to access health informa tion online - Detail Indication:Nonsmoker Start:14-Dec-2019 Instruction Type:Patient Education Patient Instructions Indication:Cough Start:14-Dec-2019 Instruction Type:Provider Instructions for Treatment How to access health informa tion online Indication:Diabetes mellitus type II, controlled, with no complications (Renamed from Controlled type 2 diabetes mellitus without complication) Start:06-Nov-2019 Instruction Type:Patient Education How to access health informa tion online - Detail Indication:Diabetes mellitus type II, controlled, with no complications (Renamed from Controlled type 2 diabetes mellitus without complication) Start:06-Nov-2019 Instruction Type:Patient Education Patient Instructions Indication:Vitamin D deficiency Start:06-Nov-2019 Instruction Type:Provider Instructions for Treatment How to access health informa tion online Indication:Diabetes mellitus type II, controlled, with no complications (Renamed from Controlled type 2 diabetes mellitus without complication) Start:28-Aug-2019 Instruction Type:Patient Education How to access health informa tion online - Detail Indication:Diabetes mellitus type II, controlled, with no complications (Renamed from Controlled type 2 diabetes mellitus without complication) Start:28-Aug-2019 Instruction Type:Patient Education Patient Instructions Indication:BMI 33.0-33.9,adult Start:28-Aug-2019 Instruction Type:Provider Instructions for Treatment How to access health informa tion online Indication:Nonsmoker Start:03-Apr-2019 Instruction Type:Patient Education How to access health informa tion online - Detail Indication:Nonsmoker Start:03-Apr-2019 Instruction Type:Patient Education Patient Instructions Indication:Nonsmoker Start:03-Apr-2019 Instruction Type:Provider Instructions for Treatment How to access health informa tion online Indication:Diabetes mellitus type 2, uncontrolled (Renamed from Uncontrolled type 2 diabetes mellitus) Start:13-Mar-2019 Instruction Type:Patient Education How to access health informa tion online - Detail Indication:Diabetes mellitus type 2, uncontrolled (Renamed from Uncontrolled type 2 diabetes mellitus) Start:13-Mar-2019 Instruction Type:Patient Education Patient Instructions Indication:BMI 35.0-35.9,adult Start:13-Mar-2019 Instruction Type:Provider Instructions for Treatment How to access health informa tion online Indication:Diabetes mellitus type II, controlled, with no complications (Renamed from Controlled type 2 diabetes mellitus without complication) Start:19-Jan-2019 Instruction Type:Patient Education How to access health informa tion online - Detail Indication:Diabetes mellitus type II, controlled, with no complications (Renamed from Controlled type 2 diabetes mellitus without complication) Start:19-Jan-2019 Instruction Type:Patient Education Patient Instructions Indication:Hypothyroid Start:19-Jan-2019 Instruction Type:Provider Instructions for Treatment How to access health informa tion online Indication:Nonsmoker Start:05-Oct-2018 Instruction Type:Patient Education How to access health informa tion online - Detail Indication:Nonsmoker Start:05-Oct-2018 Instruction Type:Patient Education Patient Instructions Indication:Atypical lobular hyperplasia of right breast Start:05-Oct-2018 Instruction Type:Provider Instructions for Treatment How to access health informa tion online Indication:BMI 35.0-35.9,adult Start:16-Sep-2018 Instruction Type:Patient Education How to access health informa tion online - Detail Indication:BMI 35.0-35.9,adult Start:16-Sep-2018 Instruction Type:Patient Education Patient Instructions Indication:BMI 35.0-35.9,adult Start:16-Sep-2018 Instruction Type:Provider Instructions for Treatment How to access health informa tion online Indication:Nonsmoker Start:27-Jun-2018 Instruction Type:Patient Education How to access health informa tion online - Detail Indication:Nonsmoker Start:27-Jun-2018 Instruction Type:Patient Education Patient Instructions Indication:Elevated liver enzymes Start:27-Jun-2018 Instruction Type:Provider Instructions for Treatment How to access health informa tion online Indication:Diabetes mellitus type II, controlled, with no complications (Renamed from Controlled type 2 diabetes mellitus without complication) Start:14-Jun-2018 Instruction Type:Patient Education How to access health informa tion online - Detail Indication:Diabetes mellitus type II, controlled, with no complications (Renamed from Controlled type 2 diabetes mellitus without complication) Start:14-Jun-2018 Instruction Type:Patient Education Patient Instructions Indication:Diabetes mellitus type II, controlled, with no complications (Renamed from Controlled type 2 diabetes mellitus without complication) Start:14-Jun-2018 Instruction Type:Provider Instructions for Treatment How to access health informa tion online Indication:Diabetes mellitus type II, controlled, with no complications (Renamed from Controlled type 2 diabetes mellitus without complication) Start:15-Mar-2018 Instruction Type:Patient Education How to access health informa tion online - Detail Indication:Diabetes mellitus type II, controlled, with no complications (Renamed from Controlled type 2 diabetes mellitus without complication) Start:15-Mar-2018 Instruction Type:Patient Education Patient Instructions Indication:Diabetes mellitus type II, controlled, with no complications (Renamed from Controlled type 2 diabetes mellitus without complication) Start:15-Mar-2018 Instruction Type:Provider Instructions for Treatment How to access health informa tion online Indication:Diabetes mellitus type II, controlled, with no complications (Renamed from Controlled type 2 diabetes mellitus without complication) Start:06-Dec-2017 Instruction Type:Patient Education How to access health informa tion online - Detail Indication:Diabetes mellitus type II, controlled, with no complications (Renamed from Controlled type 2 diabetes mellitus without complication) Start:06-Dec-2017 Instruction Type:Patient Education Patient Instructions Indication:Diabetes mellitus type II, controlled, with no complications (Renamed from Controlled type 2 diabetes mellitus without complication) Start:06-Dec-2017 Instruction Type:Provider Instructions for Treatment How to access health informa tion online Indication:Nonsmoker Start:30-Nov-2017 Instruction Type:Patient Education How to access health informa tion online - Detail Indication:Nonsmoker Start:30-Nov-2017 Instruction Type:Patient Education Patient Instructions Indication:Sinusitis, bacterial Start:30-Nov-2017 Instruction Type:Provider Instructions for Treatment How to access health [employer] online Indication:Diabetes mellitus type II, controlled, with no complications (Renamed from Controlled type 2 diabetes mellitus without complication) Start:10-Aug-2017 Instruction Type:Patient Education How to access health informa tion online - Detail Indication:Diabetes mellitus type II, controlled, with no complications (Renamed from Controlled type 2 diabetes mellitus without complication) Start:10-Aug-2017 Instruction Type:Patient Education Patient Instructions Indication:Diabetes mellitus type II, controlled, with no complications (Renamed from Controlled type 2 diabetes mellitus without complication) Start:10-Aug-2017 Instruction Type:Provider Instructions for Treatment How to access health informa [employer] online Indication:Uncontrolled type 2 diabetes mellitus without complication, without long-term current use of insulin Start:07-May-2017 Instruction Type:Patient Education How to access health informa tion online - Detail Indication:Uncontrolled type 2 diabetes mellitus without complication, without long-term current use of insulin Start:07-May-2017 Instruction Type:Patient Education Patient Instructions Indication:Uncontrolled type 2 diabetes mellitus without complication, without long-term current use of insulin Start:07-May-2017 Instruction Type:Provider Instructions for Treatment Patient Instructions Indication:Nonsmoker Start:09-Feb-2017 Instruction Type:Provider Instructions for Treatment How to access health informa tion online Indication:Uncontrolled type 2 diabetes mellitus without complication, without long-term current use of insulin Start:09-Dec-2016 Instruction Type:Patient Education How to access health informa tion online - Detail Indication:Uncontrolled type 2 diabetes mellitus without complication, without long-term current use of insulin Start:09-Dec-2016 Instruction Type:Patient Education Patient Instructions Indication:Uncontrolled type 2 diabetes mellitus without complication, without long-term current use of insulin Start:09-Dec-2016 Instruction Type:Provider Instructions for Treatment DISCONTINUED - LIPID PANEL ( [id number]) Indication:Hypercholesteremia Start:13-Oct-2016 Instruction Type:Patient Education DISCONTINUED - Glucose, PP/2 Hour (50831) Indication:Family history of diabetes mellitus Start:13-Oct-2016 Instruction Type:Patient Education DISCONTINUED - Hemoglobin Glyclated (HGB A1C) ([id number]) Indication:Family history of diabetes mellitus Start:13-Oct-2016 Instruction Type:Patient Education How to access health informa tion online Indication:Uncontrolled type 2 diabetes mellitus without complication, without long-term current use of insulin Start:13-Oct-2016 Instruction Type:Patient Education How to access health informa tion online - Detail Indication:Uncontrolled type 2 diabetes mellitus without complication, without long-term current use of insulin Start:13-Oct-2016 Instruction Type:Patient Education Patient Instructions Indication:Uncontrolled type 2 diabetes mellitus without complication, without long-term current use of insulin Start:13-Oct-2016 Instruction Type:Provider Instructions for Treatment Patient Instructions Indication:Nonsmoker Start:30-Sep-2016 Instruction Type:Provider Instructions for Treatment How to access health informa tion online Indication:Uncontrolled type 2 diabetes mellitus without complication, without long-term current use of insulin Start:30-Sep-2016 Instruction Type:Patient Education How to access health informa tion online - Detail Indication:Uncontrolled type 2 diabetes mellitus without complication, without long-term current use of insulin Start:30-Sep-2016 Instruction Type:Patient Education Patient Instructions Indication:Hypothyroid Start:28-Aug-2013 Instruction Type:Provider Instructions for Treatment Patient Instructions Indication:Family history of diabetes mellitus Start:06-Mar-2013 Instruction Type:Provider Instructions for Treatment [facility]; [facility] Work Phone: Instructions* Name Dates Details How to Access Health Informa tion Online using Patient Portal and [employer] Indication:Diabetes mellitus type II, controlled, with no complications (Renamed from Controlled type 2 diabetes mellitus without complication) Start:22-Sep-2022 Instruction Type:Patient Education Patient Instructions Indication:Diabetes mellitus type II, controlled, with no complications (Renamed from Controlled type 2 diabetes mellitus without complication) Start:22-Sep-2022 Instruction Type:Provider Instructions for Treatment Patient Instructions Indication:BMI 33.0-33.9,adult Start:12-Aug-2022 Instruction Type:Provider Instructions for Treatment How to Access Health Informa tion Online using Patient Portal and [employer] Indication:BMI 33.0-33.9,adult Start:12-Aug-2022 Instruction Type:Patient Education Patient Instructions Indication:Nonsmoker Start:07-Jul-2022 Instruction Type:Provider Instructions for Treatment How to Access Health Informa tion Online using Patient Portal and [employer] Indication:Nonsmoker Start:07-Jul-2022 Instruction Type:Patient Education Patient Instructions Indication:Nonsmoker Start:26-May-2022 Instruction Type:Provider Instructions for Treatment How to Access Health Informa tion Online using Patient Portal and [employer] Indication:Nonsmoker Start:26-May-2022 Instruction Type:Patient Education Patient Instructions Indication:Diabetes mellitus type II, controlled, with no complications (Renamed from Controlled type 2 diabetes mellitus without complication) Start:27-Feb-2022 Instruction Type:Provider Instructions for Treatment How to Access Health Informa tion Online using Patient Portal and [employer] Indication:Diabetes mellitus type II, controlled, with no complications (Renamed from Controlled type 2 diabetes mellitus without complication) Start:27-Feb-2022 Instruction Type:Patient Education Patient Instructions Indication:BMI 33.0-33.9,adult Start:18-Nov-2021 Instruction Type:Provider Instructions for Treatment How to Access Health Informa tion Online using Patient Portal and [employer] Indication:Diabetes mellitus type II, controlled, with no complications (Renamed from Controlled type 2 diabetes mellitus without complication) Start:18-Nov-2021 Instruction Type:Patient Education Patient Instructions Indication:Vitamin D deficiency Start:13-Aug-2021 Instruction Type:Provider Instructions for Treatment How to Access Health Informa tion Online using Patient Portal and [employer] Indication:BMI 34.0-34.9,adult Start:13-Aug-2021 Instruction Type:Patient Education Patient Instructions Indication:Temporary low platelet count Start:19-Mar-2021 Instruction Type:Provider Instructions for Treatment How to Access Health Informa tion Online using Patient Portal and [employer] Indication:Nonsmoker Start:19-Mar-2021 Instruction Type:Patient Education Patient Instructions Indication:Acute sinusitis Start:24-Feb-2021 Instruction Type:Provider Instructions for Treatment How to Access Health Informa tion Online using Patient Portal and [employer] Indication:Acute sinusitis Start:24-Feb-2021 Instruction Type:Patient Education How to access health informa tion online Indication:Nonsmoker Start:10-Jun-2020 Instruction Type:Patient Education How to access health informa tion online - Detail Indication:Nonsmoker Start:10-Jun-2020 Instruction Type:Patient Education Patient Instructions Indication:BMI 34.0-34.9,adult Start:10-Jun-2020 Instruction Type:Provider Instructions for Treatment How to access health informa tion online Indication:Nonsmoker Start:23-Feb-2020 Instruction Type:Patient Education How to access health informa tion online - Detail Indication:Nonsmoker Start:23-Feb-2020 Instruction Type:Patient Education Patient Instructions Indication:Nonsmoker Start:23-Feb-2020 Instruction Type:Provider Instructions for Treatment How to access health informa tion online Indication:Nonsmoker Start:21-Feb-2020 Instruction Type:Patient Education How to access health informa tion online - Detail Indication:Nonsmoker Start:21-Feb-2020 Instruction Type:Patient Education Patient Instructions Indication:Nonsmoker Start:21-Feb-2020 Instruction Type:Provider Instructions for Treatment How to access health informa tion online Indication:Nonsmoker Start:16-Feb-2020 Instruction Type:Patient Education How to access health informa tion online - Detail Indication:Nonsmoker Start:16-Feb-2020 Instruction Type:Patient Education Patient Instructions Indication:BMI 34.0-34.9,adult Start:16-Feb-2020 Instruction Type:Provider Instructions for Treatment How to access health informa tion online Indication:Nonsmoker Start:14-Dec-2019 Instruction Type:Patient Education How to access health informa tion online - Detail Indication:Nonsmoker Start:14-Dec-2019 Instruction Type:Patient Education Patient Instructions Indication:Cough Start:14-Dec-2019 Instruction Type:Provider Instructions for Treatment How to access health informa tion online Indication:Diabetes mellitus type II, controlled, with no complications (Renamed from Controlled type 2 diabetes mellitus without complication) Start:06-Nov-2019 Instruction Type:Patient Education How to access health informa tion online - Detail Indication:Diabetes mellitus type II, controlled, with no complications (Renamed from Controlled type 2 diabetes mellitus without complication) Start:06-Nov-2019 Instruction Type:Patient Education Patient Instructions Indication:Vitamin D deficiency Start:06-Nov-2019 Instruction Type:Provider Instructions for Treatment How to access health informa tion online Indication:Diabetes mellitus type II, controlled, with no complications (Renamed from Controlled type 2 diabetes mellitus without complication) Start:28-Aug-2019 Instruction Type:Patient Education How to access health informa tion online - Detail Indication:Diabetes mellitus type II, controlled, with no complications (Renamed from Controlled type 2 diabetes mellitus without complication) Start:28-Aug-2019 Instruction Type:Patient Education Patient Instructions Indication:BMI 33.0-33.9,adult Start:28-Aug-2019 Instruction Type:Provider Instructions for Treatment How to access health informa tion online Indication:Nonsmoker Start:03-Apr-2019 Instruction Type:Patient Education How to access health informa tion online - Detail Indication:Nonsmoker Start:03-Apr-2019 Instruction Type:Patient Education Patient Instructions Indication:Nonsmoker Start:03-Apr-2019 Instruction Type:Provider Instructions for Treatment How to access health informa tion online Indication:Diabetes mellitus type 2, uncontrolled (Renamed from Uncontrolled type 2 diabetes mellitus) Start:13-Mar-2019 Instruction Type:Patient Education How to access health informa tion online - Detail Indication:Diabetes mellitus type 2, uncontrolled (Renamed from Uncontrolled type 2 diabetes mellitus) Start:13-Mar-2019 Instruction Type:Patient Education Patient Instructions Indication:BMI 35.0-35.9,adult Start:13-Mar-2019 Instruction Type:Provider Instructions for Treatment How to access health informa tion online Indication:Diabetes mellitus type II, controlled, with no complications (Renamed from Controlled type 2 diabetes mellitus without complication) Start:19-Jan-2019 Instruction Type:Patient Education How to access health informa tion online - Detail Indication:Diabetes mellitus type II, controlled, with no complications (Renamed from Controlled type 2 diabetes mellitus without complication) Start:19-Jan-2019 Instruction Type:Patient Education Patient Instructions Indication:Hypothyroid Start:19-Jan-2019 Instruction Type:Provider Instructions for Treatment How to access health informa tion online Indication:Nonsmoker Start:05-Oct-2018 Instruction Type:Patient Education How to access health informa tion online - Detail Indication:Nonsmoker Start:05-Oct-2018 Instruction Type:Patient Education Patient Instructions Indication:Atypical lobular hyperplasia of right breast Start:05-Oct-2018 Instruction Type:Provider Instructions for Treatment How to access health informa tion online Indication:BMI 35.0-35.9,adult Start:16-Sep-2018 Instruction Type:Patient Education How to access health informa tion online - Detail Indication:BMI 35.0-35.9,adult Start:16-Sep-2018 Instruction Type:Patient Education Patient Instructions Indication:BMI 35.0-35.9,adult Start:16-Sep-2018 Instruction Type:Provider Instructions for Treatment How to access health informa tion online Indication:Nonsmoker Start:27-Jun-2018 Instruction Type:Patient Education How to access health informa tion online - Detail Indication:Nonsmoker Start:27-Jun-2018 Instruction Type:Patient Education Patient Instructions Indication:Elevated liver enzymes Start:27-Jun-2018 Instruction Type:Provider Instructions for Treatment How to access health informa tion online Indication:Diabetes mellitus type II, controlled, with no complications (Renamed from Controlled type 2 diabetes mellitus without complication) Start:14-Jun-2018 Instruction Type:Patient Education How to access health informa tion online - Detail Indication:Diabetes mellitus type II, controlled, with no complications (Renamed from Controlled type 2 diabetes mellitus without complication) Start:14-Jun-2018 Instruction Type:Patient Education Patient Instructions Indication:Diabetes mellitus type II, controlled, with no complications (Renamed from Controlled type 2 diabetes mellitus without complication) Start:14-Jun-2018 Instruction Type:Provider Instructions for Treatment How to access health informa tion online Indication:Diabetes mellitus type II, controlled, with no complications (Renamed from Controlled type 2 diabetes mellitus without complication) Start:15-Mar-2018 Instruction Type:Patient Education How to access health informa tion online - Detail Indication:Diabetes mellitus type II, controlled, with no complications (Renamed from Controlled type 2 diabetes mellitus without complication) Start:15-Mar-2018 Instruction Type:Patient Education Patient Instructions Indication:Diabetes mellitus type II, controlled, with no complications (Renamed from Controlled type 2 diabetes mellitus without complication) Start:15-Mar-2018 Instruction Type:Provider Instructions for Treatment How to access health informa tion online Indication:Diabetes mellitus type II, controlled, with no complications (Renamed from Controlled type 2 diabetes mellitus without complication) Start:06-Dec-2017 Instruction Type:Patient Education How to access health informa tion online - Detail Indication:Diabetes mellitus type II, controlled, with no complications (Renamed from Controlled type 2 diabetes mellitus without complication) Start:06-Dec-2017 Instruction Type:Patient Education Patient Instructions Indication:Diabetes mellitus type II, controlled, with no complications (Renamed from Controlled type 2 diabetes mellitus without complication) Start:06-Dec-2017 Instruction Type:Provider Instructions for Treatment How to access health informa tion online Indication:Nonsmoker Start:30-Nov-2017 Instruction Type:Patient Education How to access health informa tion online - Detail Indication:Nonsmoker Start:30-Nov-2017 Instruction Type:Patient Education Patient Instructions Indication:Sinusitis, bacterial Start:30-Nov-2017 Instruction Type:Provider Instructions for Treatment How to access health [employer] online Indication:Diabetes mellitus type II, controlled, with no complications (Renamed from Controlled type 2 diabetes mellitus without complication) Start:10-Aug-2017 Instruction Type:Patient Education How to access health informa tion online - Detail Indication:Diabetes mellitus type II, controlled, with no complications (Renamed from Controlled type 2 diabetes mellitus without complication) Start:10-Aug-2017 Instruction Type:Patient Education Patient Instructions Indication:Diabetes mellitus type II, controlled, with no complications (Renamed from Controlled type 2 diabetes mellitus without complication) Start:10-Aug-2017 Instruction Type:Provider Instructions for Treatment How to access health informa tion online Indication:Uncontrolled type 2 diabetes mellitus without complication, without long-term current use of insulin Start:07-May-2017 Instruction Type:Patient Education How to access health informa tion online - Detail Indication:Uncontrolled type 2 diabetes mellitus without complication, without long-term current use of insulin Start:07-May-2017 Instruction Type:Patient Education Patient Instructions Indication:Uncontrolled type 2 diabetes mellitus without complication, without long-term current use of insulin Start:07-May-2017 Instruction Type:Provider Instructions for Treatment Patient Instructions Indication:Nonsmoker Start:09-Feb-2017 Instruction Type:Provider Instructions for Treatment How to access health informa tion online Indication:Uncontrolled type 2 diabetes mellitus without complication, without long-term current use of insulin Start:09-Dec-2016 Instruction Type:Patient Education How to access health informa tion online - Detail Indication:Uncontrolled type 2 diabetes mellitus without complication, without long-term current use of insulin Start:09-Dec-2016 Instruction Type:Patient Education Patient Instructions Indication:Uncontrolled type 2 diabetes mellitus without complication, without long-term current use of insulin Start:09-Dec-2016 Instruction Type:Provider Instructions for Treatment DISCONTINUED - LIPID PANEL ( [id number]) Indication:Hypercholesteremia Start:13-Oct-2016 Instruction Type:Patient Education DISCONTINUED - Glucose, PP/2 Hour (96887) Indication:Family history of diabetes mellitus Start:13-Oct-2016 Instruction Type:Patient Education DISCONTINUED - Hemoglobin Glyclated (HGB A1C) (02640) Indication:Family history of diabetes mellitus Start:13-Oct-2016 Instruction Type:Patient Education How to access health informa tion online Indication:Uncontrolled type 2 diabetes mellitus without complication, without long-term current use of insulin Start:13-Oct-2016 Instruction Type:Patient Education How to access health informa tion online - Detail Indication:Uncontrolled type 2 diabetes mellitus without complication, without long-term current use of insulin Start:13-Oct-2016 Instruction Type:Patient Education Patient Instructions Indication:Uncontrolled type 2 diabetes mellitus without complication, without long-term current use of insulin Start:13-Oct-2016 Instruction Type:Provider Instructions for Treatment Patient Instructions Indication:Nonsmoker Start:30-Sep-2016 Instruction Type:Provider Instructions for Treatment How to access health informa tion online Indication:Uncontrolled type 2 diabetes mellitus without complication, without long-term current use of insulin Start:30-Sep-2016 Instruction Type:Patient Education How to access health informa tion online - Detail Indication:Uncontrolled type 2 diabetes mellitus without complication, without long-term current use of insulin Start:30-Sep-2016 Instruction Type:Patient Education Patient Instructions Indication:Hypothyroid Start:28-Aug-2013 Instruction Type:Provider Instructions for Treatment Patient Instructions Indication:Family history of diabetes mellitus Start:06-Mar-2013 Instruction Type:Provider Instructions for Treatment [facility]; [facility] Work Phone: Instructions* Name Dates Details How to Access Health Informa tion Online using Patient Portal and [employer] Apps Indication:Diabetes mellitus type II, controlled, with no complications (Renamed from Controlled type 2 diabetes mellitus without complication) Start:22-Sep-2022 Instruction Type:Patient Education Patient Instructions Indication:Diabetes mellitus type II, controlled, with no complications (Renamed from Controlled type 2 diabetes mellitus without complication) Start:22-Sep-2022 Instruction Type:Provider Instructions for Treatment Patient Instructions Indication:BMI 33.0-33.9,adult Start:12-Aug-2022 Instruction Type:Provider Instructions for Treatment How to Access Health Informa tion Online using Patient Portal and [employer] Apps Indication:BMI 33.0-33.9,adult Start:12-Aug-2022 Instruction Type:Patient Education Patient Instructions Indication:Nonsmoker Start:07-Jul-2022 Instruction Type:Provider Instructions for Treatment How to Access Health Informa tion Online using Patient Portal and [employer] Apps Indication:Nonsmoker Start:07-Jul-2022 Instruction Type:Patient Education Patient Instructions Indication:Nonsmoker Start:26-May-2022 Instruction Type:Provider Instructions for Treatment How to Access Health Informa tion Online using Patient Portal and [employer] Apps Indication:Nonsmoker Start:26-May-2022 Instruction Type:Patient Education Patient Instructions Indication:Diabetes mellitus type II, controlled, with no complications (Renamed from Controlled type 2 diabetes mellitus without complication) Start:27-Feb-2022 Instruction Type:Provider Instructions for Treatment How to Access Health Informa tion Online using Patient Portal and [employer] Apps Indication:Diabetes mellitus type II, controlled, with no complications (Renamed from Controlled type 2 diabetes mellitus without complication) Start:27-Feb-2022 Instruction Type:Patient Education Patient Instructions Indication:BMI 33.0-33.9,adult Start:18-Nov-2021 Instruction Type:Provider Instructions for Treatment How to Access Health Informa tion Online using Patient Portal and [employer] Apps Indication:Diabetes mellitus type II, controlled, with no complications (Renamed from Controlled type 2 diabetes mellitus without complication) Start:18-Nov-2021 Instruction Type:Patient Education Patient Instructions Indication:Vitamin D deficiency Start:13-Aug-2021 Instruction Type:Provider Instructions for Treatment How to Access Health Informa tion Online using Patient Portal and [employer] Apps Indication:BMI 34.0-34.9,adult Start:13-Aug-2021 Instruction Type:Patient Education Patient Instructions Indication:Temporary low platelet count Start:19-Mar-2021 Instruction Type:Provider Instructions for Treatment How to Access Health Informa tion Online using Patient Portal and [employer] Apps Indication:Nonsmoker Start:19-Mar-2021 Instruction Type:Patient Education Patient Instructions Indication:Acute sinusitis Start:24-Feb-2021 Instruction Type:Provider Instructions for Treatment How to Access Health Informa tion Online using Patient Portal and [employer] Apps Indication:Acute sinusitis Start:24-Feb-2021 Instruction Type:Patient Education How to access health informa tion online Indication:Nonsmoker Start:10-Jun-2020 Instruction Type:Patient Education How to access health informa tion online - Detail Indication:Nonsmoker Start:10-Jun-2020 Instruction Type:Patient Education Patient Instructions Indication:BMI 34.0-34.9,adult Start:10-Jun-2020 Instruction Type:Provider Instructions for Treatment How to access health informa tion online Indication:Nonsmoker Start:23-Feb-2020 Instruction Type:Patient Education How to access health informa tion online - Detail Indication:Nonsmoker Start:23-Feb-2020 Instruction Type:Patient Education Patient Instructions Indication:Nonsmoker Start:23-Feb-2020 Instruction Type:Provider Instructions for Treatment How to access health informa tion online Indication:Nonsmoker Start:21-Feb-2020 Instruction Type:Patient Education How to access health informa tion online - Detail Indication:Nonsmoker Start:21-Feb-2020 Instruction Type:Patient Education Patient Instructions Indication:Nonsmoker Start:21-Feb-2020 Instruction Type:Provider Instructions for Treatment How to access health informa tion online Indication:Nonsmoker Start:16-Feb-2020 Instruction Type:Patient Education How to access health informa tion online - Detail Indication:Nonsmoker Start:16-Feb-2020 Instruction Type:Patient Education Patient Instructions Indication:BMI 34.0-34.9,adult Start:16-Feb-2020 Instruction Type:Provider Instructions for Treatment How to access health informa tion online Indication:Nonsmoker Start:14-Dec-2019 Instruction Type:Patient Education How to access health informa tion online - Detail Indication:Nonsmoker Start:14-Dec-2019 Instruction Type:Patient Education Patient Instructions Indication:Cough Start:14-Dec-2019 Instruction Type:Provider Instructions for Treatment How to access health informa tion online Indication:Diabetes mellitus type II, controlled, with no complications (Renamed from Controlled type 2 diabetes mellitus without complication) Start:06-Nov-2019 Instruction Type:Patient Education How to access health informa tion online - Detail Indication:Diabetes mellitus type II, controlled, with no complications (Renamed from Controlled type 2 diabetes mellitus without complication) Start:06-Nov-2019 Instruction Type:Patient Education Patient Instructions Indication:Vitamin D deficiency Start:06-Nov-2019 Instruction Type:Provider Instructions for Treatment How to access health informa tion online Indication:Diabetes mellitus type II, controlled, with no complications (Renamed from Controlled type 2 diabetes mellitus without complication) Start:28-Aug-2019 Instruction Type:Patient Education How to access health informa tion online - Detail Indication:Diabetes mellitus type II, controlled, with no complications (Renamed from Controlled type 2 diabetes mellitus without complication) Start:28-Aug-2019 Instruction Type:Patient Education Patient Instructions Indication:BMI 33.0-33.9,adult Start:28-Aug-2019 Instruction Type:Provider Instructions for Treatment How to access health informa tion online Indication:Nonsmoker Start:03-Apr-2019 Instruction Type:Patient Education How to access health informa tion online - Detail Indication:Nonsmoker Start:03-Apr-2019 Instruction Type:Patient Education Patient Instructions Indication:Nonsmoker Start:03-Apr-2019 Instruction Type:Provider Instructions for Treatment How to access health informa tion online Indication:Diabetes mellitus type 2, uncontrolled (Renamed from Uncontrolled type 2 diabetes mellitus) Start:13-Mar-2019 Instruction Type:Patient Education How to access health informa tion online - Detail Indication:Diabetes mellitus type 2, uncontrolled (Renamed from Uncontrolled type 2 diabetes mellitus) Start:13-Mar-2019 Instruction Type:Patient Education Patient Instructions Indication:BMI 35.0-35.9,adult Start:13-Mar-2019 Instruction Type:Provider Instructions for Treatment How to access health informa tion online Indication:Diabetes mellitus type II, controlled, with no complications (Renamed from Controlled type 2 diabetes mellitus without complication) Start:19-Jan-2019 Instruction Type:Patient Education How to access health informa tion online - Detail Indication:Diabetes mellitus type II, controlled, with no complications (Renamed from Controlled type 2 diabetes mellitus without complication) Start:19-Jan-2019 Instruction Type:Patient Education Patient Instructions Indication:Hypothyroid Start:19-Jan-2019 Instruction Type:Provider Instructions for Treatment How to access health informa tion online Indication:Nonsmoker Start:05-Oct-2018 Instruction Type:Patient Education How to access health informa tion online - Detail Indication:Nonsmoker Start:05-Oct-2018 Instruction Type:Patient Education Patient Instructions Indication:Atypical lobular hyperplasia of right breast Start:05-Oct-2018 Instruction Type:Provider Instructions for Treatment How to access health informa tion online Indication:BMI 35.0-35.9,adult Start:16-Sep-2018 Instruction Type:Patient Education How to access health informa tion online - Detail Indication:BMI 35.0-35.9,adult Start:16-Sep-2018 Instruction Type:Patient Education Patient Instructions Indication:BMI 35.0-35.9,adult Start:16-Sep-2018 Instruction Type:Provider Instructions for Treatment How to access health informa tion online Indication:Nonsmoker Start:27-Jun-2018 Instruction Type:Patient Education How to access health informa tion online - Detail Indication:Nonsmoker Start:27-Jun-2018 Instruction Type:Patient Education Patient Instructions Indication:Elevated liver enzymes Start:27-Jun-2018 Instruction Type:Provider Instructions for Treatment How to access health informa tion online Indication:Diabetes mellitus type II, controlled, with no complications (Renamed from Controlled type 2 diabetes mellitus without complication) Start:14-Jun-2018 Instruction Type:Patient Education How to access health informa tion online - Detail Indication:Diabetes mellitus type II, controlled, with no complications (Renamed from Controlled type 2 diabetes mellitus without complication) Start:14-Jun-2018 Instruction Type:Patient Education Patient Instructions Indication:Diabetes mellitus type II, controlled, with no complications (Renamed from Controlled type 2 diabetes mellitus without complication) Start:14-Jun-2018 Instruction Type:Provider Instructions for Treatment How to access health informa tion online Indication:Diabetes mellitus type II, controlled, with no complications (Renamed from Controlled type 2 diabetes mellitus without complication) Start:15-Mar-2018 Instruction Type:Patient Education How to access health informa tion online - Detail Indication:Diabetes mellitus type II, controlled, with no complications (Renamed from Controlled type 2 diabetes mellitus without complication) Start:15-Mar-2018 Instruction Type:Patient Education Patient Instructions Indication:Diabetes mellitus type II, controlled, with no complications (Renamed from Controlled type 2 diabetes mellitus without complication) Start:15-Mar-2018 Instruction Type:Provider Instructions for Treatment How to access health informa tion online Indication:Diabetes mellitus type II, controlled, with no complications (Renamed from Controlled type 2 diabetes mellitus without complication) Start:06-Dec-2017 Instruction Type:Patient Education How to access health informa tion online - Detail Indication:Diabetes mellitus type II, controlled, with no complications (Renamed from Controlled type 2 diabetes mellitus without complication) Start:06-Dec-2017 Instruction Type:Patient Education Patient Instructions Indication:Diabetes mellitus type II, controlled, with no complications (Renamed from Controlled type 2 diabetes mellitus without complication) Start:06-Dec-2017 Instruction Type:Provider Instructions for Treatment How to access health informa tion online Indication:Nonsmoker Start:30-Nov-2017 Instruction Type:Patient Education How to access health informa tion online - Detail Indication:Nonsmoker Start:30-Nov-2017 Instruction Type:Patient Education Patient Instructions Indication:Sinusitis, bacterial Start:30-Nov-2017 Instruction Type:Provider Instructions for Treatment How to access health informa [employer] online Indication:Diabetes mellitus type II, controlled, with no complications (Renamed from Controlled type 2 diabetes mellitus without complication) Start:10-Aug-2017 Instruction Type:Patient Education How to access health informa tion online - Detail Indication:Diabetes mellitus type II, controlled, with no complications (Renamed from Controlled type 2 diabetes mellitus without complication) Start:10-Aug-2017 Instruction Type:Patient Education Patient Instructions Indication:Diabetes mellitus type II, controlled, with no complications (Renamed from Controlled type 2 diabetes mellitus without complication) Start:10-Aug-2017 Instruction Type:Provider Instructions for Treatment How to access health informa tion online Indication:Uncontrolled type 2 diabetes mellitus without complication, without long-term current use of insulin Start:07-May-2017 Instruction Type:Patient Education How to access health informa tion online - Detail Indication:Uncontrolled type 2 diabetes mellitus without complication, without long-term current use of insulin Start:07-May-2017 Instruction Type:Patient Education Patient Instructions Indication:Uncontrolled type 2 diabetes mellitus without complication, without long-term current use of insulin Start:07-May-2017 Instruction Type:Provider Instructions for Treatment Patient Instructions Indication:Nonsmoker Start:09-Feb-2017 Instruction Type:Provider Instructions for Treatment How to access health informa tion online Indication:Uncontrolled type 2 diabetes mellitus without complication, without long-term current use of insulin Start:09-Dec-2016 Instruction Type:Patient Education How to access health informa tion online - Detail Indication:Uncontrolled type 2 diabetes mellitus without complication, without long-term current use of insulin Start:09-Dec-2016 Instruction Type:Patient Education Patient Instructions Indication:Uncontrolled type 2 diabetes mellitus without complication, without long-term current use of insulin Start:09-Dec-2016 Instruction Type:Provider Instructions for Treatment DISCONTINUED - LIPID PANEL ( [id number]) Indication:Hypercholesteremia Start:13-Oct-2016 Instruction Type:Patient Education DISCONTINUED - Glucose, PP/2 Hour (43215) Indication:Family history of diabetes mellitus Start:13-Oct-2016 Instruction Type:Patient Education DISCONTINUED - Hemoglobin Glyclated (HGB A1C) (03245) Indication:Family history of diabetes mellitus Start:13-Oct-2016 Instruction Type:Patient Education How to access health informa tion online Indication:Uncontrolled type 2 diabetes mellitus without complication, without long-term current use of insulin Start:13-Oct-2016 Instruction Type:Patient Education How to access health informa tion online - Detail Indication:Uncontrolled type 2 diabetes mellitus without complication, without long-term current use of insulin Start:13-Oct-2016 Instruction Type:Patient Education Patient Instructions Indication:Uncontrolled type 2 diabetes mellitus without complication, without long-term current use of insulin Start:13-Oct-2016 Instruction Type:Provider Instructions for Treatment Patient Instructions Indication:Nonsmoker Start:30-Sep-2016 Instruction Type:Provider Instructions for Treatment How to access health informa tion online Indication:Uncontrolled type 2 diabetes mellitus without complication, without long-term current use of insulin Start:30-Sep-2016 Instruction Type:Patient Education How to access health informa tion online - Detail Indication:Uncontrolled type 2 diabetes mellitus without complication, without long-term current use of insulin Start:30-Sep-2016 Instruction Type:Patient Education Patient Instructions Indication:Hypothyroid Start:28-Aug-2013 Instruction Type:Provider Instructions for Treatment Patient Instructions Indication:Family history of diabetes mellitus Start:06-Mar-2013 Instruction Type:Provider Instructions for Treatment [facility]; [facility] Work Phone: Instructions* Name Dates Details Patient Instructions Indication:Type 2 diabetes mellitus with hemoglobin A1c goal of less than 7.0% Start:19-Jan-2023 Instruction Type:Provider Instructions for Treatment How to Access Health Informa tion Online using Patient Portal and [employer] Indication:Type 2 diabetes mellitus with hemoglobin A1c goal of less than 7.0% Start:19-Jan-2023 Instruction Type:Patient Education How to Access Health Informa tion Online using Patient Portal and [employer] Apps Indication:Type 2 diabetes mellitus with hemoglobin A1c goal of less than 7.0% Start:22-Sep-2022 Instruction Type:Patient Education Patient Instructions Indication:Type 2 diabetes mellitus with hemoglobin A1c goal of less than 7.0% Start:22-Sep-2022 Instruction Type:Provider Instructions for Treatment Patient Instructions Indication:BMI 33.0-33.9,adult Start:12-Aug-2022 Instruction Type:Provider Instructions for Treatment How to Access Health Informa tion Online using Patient Portal and [employer] Indication:BMI 33.0-33.9,adult Start:12-Aug-2022 Instruction Type:Patient Education Patient Instructions Indication:Nonsmoker Start:07-Jul-2022 Instruction Type:Provider Instructions for Treatment How to Access Health Informa tion Online using Patient Portal and [employer] Indication:Nonsmoker Start:07-Jul-2022 Instruction Type:Patient Education Patient Instructions Indication:Nonsmoker Start:26-May-2022 Instruction Type:Provider Instructions for Treatment How to Access Health Informa tion Online using Patient Portal and [employer] Indication:Nonsmoker Start:26-May-2022 Instruction Type:Patient Education Patient Instructions Indication:Type 2 diabetes mellitus with hemoglobin A1c goal of less than 7.0% Start:27-Feb-2022 Instruction Type:Provider Instructions for Treatment How to Access Health Informa tion Online using Patient Portal and [employer] Indication:Type 2 diabetes mellitus with hemoglobin A1c goal of less than 7.0% Start:27-Feb-2022 Instruction Type:Patient Education Patient Instructions Indication:BMI 33.0-33.9,adult Start:18-Nov-2021 Instruction Type:Provider Instructions for Treatment How to Access Health Informa tion Online using Patient Portal and [employer] Apps Indication:Type 2 diabetes mellitus with hemoglobin A1c goal of less than 7.0% Start:18-Nov-2021 Instruction Type:Patient Education Patient Instructions Indication:Vitamin D deficiency Start:13-Aug-2021 Instruction Type:Provider Instructions for Treatment How to Access Health Informa tion Online using Patient Portal and [employer] Apps Indication:BMI 34.0-34.9,adult Start:13-Aug-2021 Instruction Type:Patient Education Patient Instructions Indication:Temporary low platelet count Start:19-Mar-2021 Instruction Type:Provider Instructions for Treatment How to Access Health Informa tion Online using Patient Portal and [employer] Apps Indication:Nonsmoker Start:19-Mar-2021 Instruction Type:Patient Education Patient Instructions Indication:Acute sinusitis Start:24-Feb-2021 Instruction Type:Provider Instructions for Treatment How to Access Health Informa tion Online using Patient Portal and [employer] Apps Indication:Acute sinusitis Start:24-Feb-2021 Instruction Type:Patient Education How to access health informa tion online Indication:Nonsmoker Start:10-Jun-2020 Instruction Type:Patient Education How to access health informa tion online - Detail Indication:Nonsmoker Start:10-Jun-2020 Instruction Type:Patient Education Patient Instructions Indication:BMI 34.0-34.9,adult Start:10-Jun-2020 Instruction Type:Provider Instructions for Treatment How to access health informa tion online Indication:Nonsmoker Start:23-Feb-2020 Instruction Type:Patient Education How to access health informa tion online - Detail Indication:Nonsmoker Start:23-Feb-2020 Instruction Type:Patient Education Patient Instructions Indication:Nonsmoker Start:23-Feb-2020 Instruction Type:Provider Instructions for Treatment How to access health informa tion online Indication:Nonsmoker Start:21-Feb-2020 Instruction Type:Patient Education How to access health informa tion online - Detail Indication:Nonsmoker Start:21-Feb-2020 Instruction Type:Patient Education Patient Instructions Indication:Nonsmoker Start:21-Feb-2020 Instruction Type:Provider Instructions for Treatment How to access health informa tion online Indication:Nonsmoker Start:16-Feb-2020 Instruction Type:Patient Education How to access health informa tion online - Detail Indication:Nonsmoker Start:16-Feb-2020 Instruction Type:Patient Education Patient Instructions Indication:BMI 34.0-34.9,adult Start:16-Feb-2020 Instruction Type:Provider Instructions for Treatment How to access health informa tion online Indication:Nonsmoker Start:14-Dec-2019 Instruction Type:Patient Education How to access health informa tion online - Detail Indication:Nonsmoker Start:14-Dec-2019 Instruction Type:Patient Education Patient Instructions Indication:Cough Start:14-Dec-2019 Instruction Type:Provider Instructions for Treatment How to access health informa tion online Indication:Type 2 diabetes mellitus with hemoglobin A1c goal of less than 7.0% Start:06-Nov-2019 Instruction Type:Patient Education How to access health informa tion online - Detail Indication:Type 2 diabetes mellitus with hemoglobin A1c goal of less than 7.0% Start:06-Nov-2019 Instruction Type:Patient Education Patient Instructions Indication:Vitamin D deficiency Start:06-Nov-2019 Instruction Type:Provider Instructions for Treatment How to access health informa tion online Indication:Type 2 diabetes mellitus with hemoglobin A1c goal of less than 7.0% Start:28-Aug-2019 Instruction Type:Patient Education How to access health informa tion online - Detail Indication:Type 2 diabetes mellitus with hemoglobin A1c goal of less than 7.0% Start:28-Aug-2019 Instruction Type:Patient Education Patient Instructions Indication:BMI 33.0-33.9,adult Start:28-Aug-2019 Instruction Type:Provider Instructions for Treatment How to access health informa tion online Indication:Nonsmoker Start:03-Apr-2019 Instruction Type:Patient Education How to access health informa tion online - Detail Indication:Nonsmoker Start:03-Apr-2019 Instruction Type:Patient Education Patient Instructions Indication:Nonsmoker Start:03-Apr-2019 Instruction Type:Provider Instructions for Treatment How to access health informa tion online Indication:Diabetes mellitus type 2, uncontrolled (Renamed from Uncontrolled type 2 diabetes mellitus) Start:13-Mar-2019 Instruction Type:Patient Education How to access health informa tion online - Detail Indication:Diabetes mellitus type 2, uncontrolled (Renamed from Uncontrolled type 2 diabetes mellitus) Start:13-Mar-2019 Instruction Type:Patient Education Patient Instructions Indication:BMI 35.0-35.9,adult Start:13-Mar-2019 Instruction Type:Provider Instructions for Treatment How to access health informa tion online Indication:Type 2 diabetes mellitus with hemoglobin A1c goal of less than 7.0% Start:19-Jan-2019 Instruction Type:Patient Education How to access health informa tion online - Detail Indication:Type 2 diabetes mellitus with hemoglobin A1c goal of less than 7.0% Start:19-Jan-2019 Instruction Type:Patient Education Patient Instructions Indication:Hypothyroid Start:19-Jan-2019 Instruction Type:Provider Instructions for Treatment How to access health informa tion online Indication:Nonsmoker Start:05-Oct-2018 Instruction Type:Patient Education How to access health informa tion online - Detail Indication:Nonsmoker Start:05-Oct-2018 Instruction Type:Patient Education Patient Instructions Indication:Atypical lobular hyperplasia of right breast Start:05-Oct-2018 Instruction Type:Provider Instructions for Treatment How to access health informa tion online Indication:BMI 35.0-35.9,adult Start:16-Sep-2018 Instruction Type:Patient Education How to access health informa tion online - Detail Indication:BMI 35.0-35.9,adult Start:16-Sep-2018 Instruction Type:Patient Education Patient Instructions Indication:BMI 35.0-35.9,adult Start:16-Sep-2018 Instruction Type:Provider Instructions for Treatment How to access health informa tion online Indication:Nonsmoker Start:27-Jun-2018 Instruction Type:Patient Education How to access health informa tion online - Detail Indication:Nonsmoker Start:27-Jun-2018 Instruction Type:Patient Education Patient Instructions Indication:Elevated liver enzymes Start:27-Jun-2018 Instruction Type:Provider Instructions for Treatment How to access health informa tion online Indication:Type 2 diabetes mellitus with hemoglobin A1c goal of less than 7.0% Start:14-Jun-2018 Instruction Type:Patient Education How to access health informa tion online - Detail Indication:Type 2 diabetes mellitus with hemoglobin A1c goal of less than 7.0% Start:14-Jun-2018 Instruction Type:Patient Education Patient Instructions Indication:Type 2 diabetes mellitus with hemoglobin A1c goal of less than 7.0% Start:14-Jun-2018 Instruction Type:Provider Instructions for Treatment How to access health informa tion online Indication:Type 2 diabetes mellitus with hemoglobin A1c goal of less than 7.0% Start:15-Mar-2018 Instruction Type:Patient Education How to access health informa tion online - Detail Indication:Type 2 diabetes mellitus with hemoglobin A1c goal of less than 7.0% Start:15-Mar-2018 Instruction Type:Patient Education Patient Instructions Indication:Type 2 diabetes mellitus with hemoglobin A1c goal of less than 7.0% Start:15-Mar-2018 Instruction Type:Provider Instructions for Treatment How to access health informa tion online Indication:Type 2 diabetes mellitus with hemoglobin A1c goal of less than 7.0% Start:06-Dec-2017 Instruction Type:Patient Education How to access health informa tion online - Detail Indication:Type 2 diabetes mellitus with hemoglobin A1c goal of less than 7.0% Start:06-Dec-2017 Instruction Type:Patient Education Patient Instructions Indication:Type 2 diabetes mellitus with hemoglobin A1c goal of less than 7.0% Start:06-Dec-2017 Instruction Type:Provider Instructions for Treatment How to access health informa tion online Indication:Nonsmoker Start:30-Nov-2017 Instruction Type:Patient Education How to access health informa tion online - Detail Indication:Nonsmoker Start:30-Nov-2017 Instruction Type:Patient Education Patient Instructions Indication:Sinusitis, bacterial Start:30-Nov-2017 Instruction Type:Provider Instructions for Treatment How to access health informa tion online Indication:Type 2 diabetes mellitus with hemoglobin A1c goal of less than 7.0% Start:10-Aug-2017 Instruction Type:Patient Education How to access health informa tion online - Detail Indication:Type 2 diabetes mellitus with hemoglobin A1c goal of less than 7.0% Start:10-Aug-2017 Instruction Type:Patient Education Patient Instructions Indication:Type 2 diabetes mellitus with hemoglobin A1c goal of less than 7.0% Start:10-Aug-2017 Instruction Type:Provider Instructions for Treatment How to access health informa [employer] online Indication:Uncontrolled type 2 diabetes mellitus without complication, without long-term current use of insulin Start:07-May-2017 Instruction Type:Patient Education How to access health informa tion online - Detail Indication:Uncontrolled type 2 diabetes mellitus without complication, without long-term current use of insulin Start:07-May-2017 Instruction Type:Patient Education Patient Instructions Indication:Uncontrolled type 2 diabetes mellitus without complication, without long-term current use of insulin Start:07-May-2017 Instruction Type:Provider Instructions for Treatment Patient Instructions Indication:Nonsmoker Start:09-Feb-2017 Instruction Type:Provider Instructions for Treatment How to access health informa [employer] online Indication:Uncontrolled type 2 diabetes mellitus without complication, without long-term current use of insulin Start:09-Dec-2016 Instruction Type:Patient Education How to access health informa tion online - Detail Indication:Uncontrolled type 2 diabetes mellitus without complication, without long-term current use of insulin Start:09-Dec-2016 Instruction Type:Patient Education Patient Instructions Indication:Uncontrolled type 2 diabetes mellitus without complication, without long-term current use of insulin Start:09-Dec-2016 Instruction Type:Provider Instructions for Treatment DISCONTINUED - LIPID PANEL ( [id number]) Indication:Hypercholesteremia Start:13-Oct-2016 Instruction Type:Patient Education DISCONTINUED - Glucose, PP/2 Hour (81344) Indication:Family history of diabetes mellitus Start:13-Oct-2016 Instruction Type:Patient Education DISCONTINUED - Hemoglobin Glyclated (HGB A1C) ([id number]) Indication:Family history of diabetes mellitus Start:13-Oct-2016 Instruction Type:Patient Education How to access health informa tion online Indication:Uncontrolled type 2 diabetes mellitus without complication, without long-term current use of insulin Start:13-Oct-2016 Instruction Type:Patient Education How to access health informa tion online - Detail Indication:Uncontrolled type 2 diabetes mellitus without complication, without long-term current use of insulin Start:13-Oct-2016 Instruction Type:Patient Education Patient Instructions Indication:Uncontrolled type 2 diabetes mellitus without complication, without long-term current use of insulin Start:13-Oct-2016 Instruction Type:Provider Instructions for Treatment Patient Instructions Indication:Nonsmoker Start:30-Sep-2016 Instruction Type:Provider Instructions for Treatment How to access health informa tion online Indication:Uncontrolled type 2 diabetes mellitus without complication, without long-term current use of insulin Start:30-Sep-2016 Instruction Type:Patient Education How to access health informa tion online - Detail Indication:Uncontrolled type 2 diabetes mellitus without complication, without long-term current use of insulin Start:30-Sep-2016 Instruction Type:Patient Education Patient Instructions Indication:Hypothyroid Start:28-Aug-2013 Instruction Type:Provider Instructions for Treatment Patient Instructions Indication:Family history of diabetes mellitus Start:06-Mar-2013 Instruction Type:Provider Instructions for Treatment [facility]; [facility] Work Phone: Instructions* Name Dates Details Patient Instructions Indication:Type 2 diabetes mellitus with hemoglobin A1c goal of less than 7.0% Start:19-Jan-2023 Instruction Type:Provider Instructions for Treatment How to Access Health Informa tion Online using Patient Portal and [employer] Apps Indication:Type 2 diabetes mellitus with hemoglobin A1c goal of less than 7.0% Start:19-Jan-2023 Instruction Type:Patient Education How to Access Health Informa tion Online using Patient Portal and [employer] Apps Indication:Type 2 diabetes mellitus with hemoglobin A1c goal of less than 7.0% Start:22-Sep-2022 Instruction Type:Patient Education Patient Instructions Indication:Type 2 diabetes mellitus with hemoglobin A1c goal of less than 7.0% Start:22-Sep-2022 Instruction Type:Provider Instructions for Treatment Patient Instructions Indication:BMI 33.0-33.9,adult Start:12-Aug-2022 Instruction Type:Provider Instructions for Treatment How to Access Health Informa tion Online using Patient Portal and [employer] Indication:BMI 33.0-33.9,adult Start:12-Aug-2022 Instruction Type:Patient Education Patient Instructions Indication:Nonsmoker Start:07-Jul-2022 Instruction Type:Provider Instructions for Treatment How to Access Health Informa tion Online using Patient Portal and [employer] Indication:Nonsmoker Start:07-Jul-2022 Instruction Type:Patient Education Patient Instructions Indication:Nonsmoker Start:26-May-2022 Instruction Type:Provider Instructions for Treatment How to Access Health Informa tion Online using Patient Portal and [employer] Indication:Nonsmoker Start:26-May-2022 Instruction Type:Patient Education Patient Instructions Indication:Type 2 diabetes mellitus with hemoglobin A1c goal of less than 7.0% Start:27-Feb-2022 Instruction Type:Provider Instructions for Treatment How to Access Health Informa tion Online using Patient Portal and [employer] Indication:Type 2 diabetes mellitus with hemoglobin A1c goal of less than 7.0% Start:27-Feb-2022 Instruction Type:Patient Education Patient Instructions Indication:BMI 33.0-33.9,adult Start:18-Nov-2021 Instruction Type:Provider Instructions for Treatment How to Access Health Informa tion Online using Patient Portal and [employer] Indication:Type 2 diabetes mellitus with hemoglobin A1c goal of less than 7.0% Start:18-Nov-2021 Instruction Type:Patient Education Patient Instructions Indication:Vitamin D deficiency Start:13-Aug-2021 Instruction Type:Provider Instructions for Treatment How to Access Health Informa tion Online using Patient Portal and [employer] Indication:BMI 34.0-34.9,adult Start:13-Aug-2021 Instruction Type:Patient Education Patient Instructions Indication:Temporary low platelet count Start:19-Mar-2021 Instruction Type:Provider Instructions for Treatment How to Access Health Informa tion Online using Patient Portal and [employer] Indication:Nonsmoker Start:19-Mar-2021 Instruction Type:Patient Education Patient Instructions Indication:Acute sinusitis Start:24-Feb-2021 Instruction Type:Provider Instructions for Treatment How to Access Health Informa tion Online using Patient Portal and [employer] Indication:Acute sinusitis Start:24-Feb-2021 Instruction Type:Patient Education How to access health informa tion online Indication:Nonsmoker Start:10-Jun-2020 Instruction Type:Patient Education How to access health informa tion online - Detail Indication:Nonsmoker Start:10-Jun-2020 Instruction Type:Patient Education Patient Instructions Indication:BMI 34.0-34.9,adult Start:10-Jun-2020 Instruction Type:Provider Instructions for Treatment How to access health informa tion online Indication:Nonsmoker Start:23-Feb-2020 Instruction Type:Patient Education How to access health informa tion online - Detail Indication:Nonsmoker Start:23-Feb-2020 Instruction Type:Patient Education Patient Instructions Indication:Nonsmoker Start:23-Feb-2020 Instruction Type:Provider Instructions for Treatment How to access health informa tion online Indication:Nonsmoker Start:21-Feb-2020 Instruction Type:Patient Education How to access health informa tion online - Detail Indication:Nonsmoker Start:21-Feb-2020 Instruction Type:Patient Education Patient Instructions Indication:Nonsmoker Start:21-Feb-2020 Instruction Type:Provider Instructions for Treatment How to access health informa tion online Indication:Nonsmoker Start:16-Feb-2020 Instruction Type:Patient Education How to access health informa tion online - Detail Indication:Nonsmoker Start:16-Feb-2020 Instruction Type:Patient Education Patient Instructions Indication:BMI 34.0-34.9,adult Start:16-Feb-2020 Instruction Type:Provider Instructions for Treatment How to access health informa tion online Indication:Nonsmoker Start:14-Dec-2019 Instruction Type:Patient Education How to access health informa tion online - Detail Indication:Nonsmoker Start:14-Dec-2019 Instruction Type:Patient Education Patient Instructions Indication:Cough Start:14-Dec-2019 Instruction Type:Provider Instructions for Treatment How to access health informa tion online Indication:Type 2 diabetes mellitus with hemoglobin A1c goal of less than 7.0% Start:06-Nov-2019 Instruction Type:Patient Education How to access health informa tion online - Detail Indication:Type 2 diabetes mellitus with hemoglobin A1c goal of less than 7.0% Start:06-Nov-2019 Instruction Type:Patient Education Patient Instructions Indication:Vitamin D deficiency Start:06-Nov-2019 Instruction Type:Provider Instructions for Treatment How to access health informa tion online Indication:Type 2 diabetes mellitus with hemoglobin A1c goal of less than 7.0% Start:28-Aug-2019 Instruction Type:Patient Education How to access health informa tion online - Detail Indication:Type 2 diabetes mellitus with hemoglobin A1c goal of less than 7.0% Start:28-Aug-2019 Instruction Type:Patient Education Patient Instructions Indication:BMI 33.0-33.9,adult Start:28-Aug-2019 Instruction Type:Provider Instructions for Treatment How to access health informa tion online Indication:Nonsmoker Start:03-Apr-2019 Instruction Type:Patient Education How to access health informa tion online - Detail Indication:Nonsmoker Start:03-Apr-2019 Instruction Type:Patient Education Patient Instructions Indication:Nonsmoker Start:03-Apr-2019 Instruction Type:Provider Instructions for Treatment How to access health informa tion online Indication:Diabetes mellitus type 2, uncontrolled (Renamed from Uncontrolled type 2 diabetes mellitus) Start:13-Mar-2019 Instruction Type:Patient Education How to access health informa tion online - Detail Indication:Diabetes mellitus type 2, uncontrolled (Renamed from Uncontrolled type 2 diabetes mellitus) Start:13-Mar-2019 Instruction Type:Patient Education Patient Instructions Indication:BMI 35.0-35.9,adult Start:13-Mar-2019 Instruction Type:Provider Instructions for Treatment How to access health informa tion online Indication:Type 2 diabetes mellitus with hemoglobin A1c goal of less than 7.0% Start:19-Jan-2019 Instruction Type:Patient Education How to access health informa tion online - Detail Indication:Type 2 diabetes mellitus with hemoglobin A1c goal of less than 7.0% Start:19-Jan-2019 Instruction Type:Patient Education Patient Instructions Indication:Hypothyroid Start:19-Jan-2019 Instruction Type:Provider Instructions for Treatment How to access health informa tion online Indication:Nonsmoker Start:05-Oct-2018 Instruction Type:Patient Education How to access health informa tion online - Detail Indication:Nonsmoker Start:05-Oct-2018 Instruction Type:Patient Education Patient Instructions Indication:Atypical lobular hyperplasia of right breast Start:05-Oct-2018 Instruction Type:Provider Instructions for Treatment How to access health informa tion online Indication:BMI 35.0-35.9,adult Start:16-Sep-2018 Instruction Type:Patient Education How to access health informa tion online - Detail Indication:BMI 35.0-35.9,adult Start:16-Sep-2018 Instruction Type:Patient Education Patient Instructions Indication:BMI 35.0-35.9,adult Start:16-Sep-2018 Instruction Type:Provider Instructions for Treatment How to access health informa tion online Indication:Nonsmoker Start:27-Jun-2018 Instruction Type:Patient Education How to access health informa tion online - Detail Indication:Nonsmoker Start:27-Jun-2018 Instruction Type:Patient Education Patient Instructions Indication:Elevated liver enzymes Start:27-Jun-2018 Instruction Type:Provider Instructions for Treatment How to access health informa tion online Indication:Type 2 diabetes mellitus with hemoglobin A1c goal of less than 7.0% Start:14-Jun-2018 Instruction Type:Patient Education How to access health informa tion online - Detail Indication:Type 2 diabetes mellitus with hemoglobin A1c goal of less than 7.0% Start:14-Jun-2018 Instruction Type:Patient Education Patient Instructions Indication:Type 2 diabetes mellitus with hemoglobin A1c goal of less than 7.0% Start:14-Jun-2018 Instruction Type:Provider Instructions for Treatment How to access health informa tion online Indication:Type 2 diabetes mellitus with hemoglobin A1c goal of less than 7.0% Start:15-Mar-2018 Instruction Type:Patient Education How to access health informa tion online - Detail Indication:Type 2 diabetes mellitus with hemoglobin A1c goal of less than 7.0% Start:15-Mar-2018 Instruction Type:Patient Education Patient Instructions Indication:Type 2 diabetes mellitus with hemoglobin A1c goal of less than 7.0% Start:15-Mar-2018 Instruction Type:Provider Instructions for Treatment How to access health informa tion online Indication:Type 2 diabetes mellitus with hemoglobin A1c goal of less than 7.0% Start:06-Dec-2017 Instruction Type:Patient Education How to access health informa tion online - Detail Indication:Type 2 diabetes mellitus with hemoglobin A1c goal of less than 7.0% Start:06-Dec-2017 Instruction Type:Patient Education Patient Instructions Indication:Type 2 diabetes mellitus with hemoglobin A1c goal of less than 7.0% Start:06-Dec-2017 Instruction Type:Provider Instructions for Treatment How to access health informa tion online Indication:Nonsmoker Start:30-Nov-2017 Instruction Type:Patient Education How to access health informa tion online - Detail Indication:Nonsmoker Start:30-Nov-2017 Instruction Type:Patient Education Patient Instructions Indication:Sinusitis, bacterial Start:30-Nov-2017 Instruction Type:Provider Instructions for Treatment How to access health informa tion online Indication:Type 2 diabetes mellitus with hemoglobin A1c goal of less than 7.0% Start:10-Aug-2017 Instruction Type:Patient Education How to access health informa tion online - Detail Indication:Type 2 diabetes mellitus with hemoglobin A1c goal of less than 7.0% Start:10-Aug-2017 Instruction Type:Patient Education Patient Instructions Indication:Type 2 diabetes mellitus with hemoglobin A1c goal of less than 7.0% Start:10-Aug-2017 Instruction Type:Provider Instructions for Treatment How to access health informa tion online Indication:Uncontrolled type 2 diabetes mellitus without complication, without long-term current use of insulin Start:07-May-2017 Instruction Type:Patient Education How to access health informa tion online - Detail Indication:Uncontrolled type 2 diabetes mellitus without complication, without long-term current use of insulin Start:07-May-2017 Instruction Type:Patient Education Patient Instructions Indication:Uncontrolled type 2 diabetes mellitus without complication, without long-term current use of insulin Start:07-May-2017 Instruction Type:Provider Instructions for Treatment Patient Instructions Indication:Nonsmoker Start:09-Feb-2017 Instruction Type:Provider Instructions for Treatment How to access health informa tion online Indication:Uncontrolled type 2 diabetes mellitus without complication, without long-term current use of insulin Start:09-Dec-2016 Instruction Type:Patient Education How to access health informa tion online - Detail Indication:Uncontrolled type 2 diabetes mellitus without complication, without long-term current use of insulin Start:09-Dec-2016 Instruction Type:Patient Education Patient Instructions Indication:Uncontrolled type 2 diabetes mellitus without complication, without long-term current use of insulin Start:09-Dec-2016 Instruction Type:Provider Instructions for Treatment DISCONTINUED - LIPID PANEL ( [id number]) Indication:Hypercholesteremia Start:13-Oct-2016 Instruction Type:Patient Education DISCONTINUED - Glucose, PP/2 Hour (95100) Indication:Family history of diabetes mellitus Start:13-Oct-2016 Instruction Type:Patient Education DISCONTINUED - Hemoglobin Glyclated (HGB A1C) (50686) Indication:Family history of diabetes mellitus Start:13-Oct-2016 Instruction Type:Patient Education How to access health informa [employer] online Indication:Uncontrolled type 2 diabetes mellitus without complication, without long-term current use of insulin Start:13-Oct-2016 Instruction Type:Patient Education How to access health informa tion online - Detail Indication:Uncontrolled type 2 diabetes mellitus without complication, without long-term current use of insulin Start:13-Oct-2016 Instruction Type:Patient Education Patient Instructions Indication:Uncontrolled type 2 diabetes mellitus without complication, without long-term current use of insulin Start:13-Oct-2016 Instruction Type:Provider Instructions for Treatment Patient Instructions Indication:Nonsmoker Start:30-Sep-2016 Instruction Type:Provider Instructions for Treatment How to access health informa tion online Indication:Uncontrolled type 2 diabetes mellitus without complication, without long-term current use of insulin Start:30-Sep-2016 Instruction Type:Patient Education How to access health informa tion online - Detail Indication:Uncontrolled type 2 diabetes mellitus without complication, without long-term current use of insulin Start:30-Sep-2016 Instruction Type:Patient Education Patient Instructions Indication:Hypothyroid Start:28-Aug-2013 Instruction Type:Provider Instructions for Treatment Patient Instructions Indication:Family history of diabetes mellitus Start:06-Mar-2013 Instruction Type:Provider Instructions for Treatment [facility]; [facility] Work Phone: Instructions* Name Dates Details Patient Instructions Indication:Type 2 diabetes mellitus with hemoglobin A1c goal of less than 7.0% Start:19-Jan-2023 Instruction Type:Provider Instructions for Treatment How to Access Health Informa tion Online using Patient Portal and [employer] Apps Indication:Type 2 diabetes mellitus with hemoglobin A1c goal of less than 7.0% Start:19-Jan-2023 Instruction Type:Patient Education How to Access Health Informa tion Online using Patient Portal and [employer] Apps Indication:Type 2 diabetes mellitus with hemoglobin A1c goal of less than 7.0% Start:22-Sep-2022 Instruction Type:Patient Education Patient Instructions Indication:Type 2 diabetes mellitus with hemoglobin A1c goal of less than 7.0% Start:22-Sep-2022 Instruction Type:Provider Instructions for Treatment Patient Instructions Indication:BMI 33.0-33.9,adult Start:12-Aug-2022 Instruction Type:Provider Instructions for Treatment How to Access Health Informa tion Online using Patient Portal and [employer] Apps Indication:BMI 33.0-33.9,adult Start:12-Aug-2022 Instruction Type:Patient Education Patient Instructions Indication:Nonsmoker Start:07-Jul-2022 Instruction Type:Provider Instructions for Treatment How to Access Health Informa tion Online using Patient Portal and [employer] Apps Indication:Nonsmoker Start:07-Jul-2022 Instruction Type:Patient Education Patient Instructions Indication:Nonsmoker Start:26-May-2022 Instruction Type:Provider Instructions for Treatment How to Access Health Informa tion Online using Patient Portal and [employer] Apps Indication:Nonsmoker Start:26-May-2022 Instruction Type:Patient Education Patient Instructions Indication:Type 2 diabetes mellitus with hemoglobin A1c goal of less than 7.0% Start:27-Feb-2022 Instruction Type:Provider Instructions for Treatment How to Access Health Informa tion Online using Patient Portal and [employer] Apps Indication:Type 2 diabetes mellitus with hemoglobin A1c goal of less than 7.0% Start:27-Feb-2022 Instruction Type:Patient Education Patient Instructions Indication:BMI 33.0-33.9,adult Start:18-Nov-2021 Instruction Type:Provider Instructions for Treatment How to Access Health Informa tion Online using Patient Portal and [employer] Apps Indication:Type 2 diabetes mellitus with hemoglobin A1c goal of less than 7.0% Start:18-Nov-2021 Instruction Type:Patient Education Patient Instructions Indication:Vitamin D deficiency Start:13-Aug-2021 Instruction Type:Provider Instructions for Treatment How to Access Health Informa tion Online using Patient Portal and [employer] Apps Indication:BMI 34.0-34.9,adult Start:13-Aug-2021 Instruction Type:Patient Education Patient Instructions Indication:Temporary low platelet count Start:19-Mar-2021 Instruction Type:Provider Instructions for Treatment How to Access Health Informa tion Online using Patient Portal and [employer] Apps Indication:Nonsmoker Start:19-Mar-2021 Instruction Type:Patient Education Patient Instructions Indication:Acute sinusitis Start:24-Feb-2021 Instruction Type:Provider Instructions for Treatment How to Access Health Informa tion Online using Patient Portal and [employer] Apps Indication:Acute sinusitis Start:24-Feb-2021 Instruction Type:Patient Education How to access health informa tion online Indication:Nonsmoker Start:10-Jun-2020 Instruction Type:Patient Education How to access health informa tion online - Detail Indication:Nonsmoker Start:10-Jun-2020 Instruction Type:Patient Education Patient Instructions Indication:BMI 34.0-34.9,adult Start:10-Jun-2020 Instruction Type:Provider Instructions for Treatment How to access health informa tion online Indication:Nonsmoker Start:23-Feb-2020 Instruction Type:Patient Education How to access health informa tion online - Detail Indication:Nonsmoker Start:23-Feb-2020 Instruction Type:Patient Education Patient Instructions Indication:Nonsmoker Start:23-Feb-2020 Instruction Type:Provider Instructions for Treatment How to access health informa tion online Indication:Nonsmoker Start:21-Feb-2020 Instruction Type:Patient Education How to access health informa tion online - Detail Indication:Nonsmoker Start:21-Feb-2020 Instruction Type:Patient Education Patient Instructions Indication:Nonsmoker Start:21-Feb-2020 Instruction Type:Provider Instructions for Treatment How to access health informa tion online Indication:Nonsmoker Start:16-Feb-2020 Instruction Type:Patient Education How to access health informa tion online - Detail Indication:Nonsmoker Start:16-Feb-2020 Instruction Type:Patient Education Patient Instructions Indication:BMI 34.0-34.9,adult Start:16-Feb-2020 Instruction Type:Provider Instructions for Treatment How to access health informa tion online Indication:Nonsmoker Start:14-Dec-2019 Instruction Type:Patient Education How to access health informa tion online - Detail Indication:Nonsmoker Start:14-Dec-2019 Instruction Type:Patient Education Patient Instructions Indication:Cough Start:14-Dec-2019 Instruction Type:Provider Instructions for Treatment How to access health informa tion online Indication:Type 2 diabetes mellitus with hemoglobin A1c goal of less than 7.0% Start:06-Nov-2019 Instruction Type:Patient Education How to access health informa tion online - Detail Indication:Type 2 diabetes mellitus with hemoglobin A1c goal of less than 7.0% Start:06-Nov-2019 Instruction Type:Patient Education Patient Instructions Indication:Vitamin D deficiency Start:06-Nov-2019 Instruction Type:Provider Instructions for Treatment How to access health informa tion online Indication:Type 2 diabetes mellitus with hemoglobin A1c goal of less than 7.0% Start:28-Aug-2019 Instruction Type:Patient Education How to access health informa tion online - Detail Indication:Type 2 diabetes mellitus with hemoglobin A1c goal of less than 7.0% Start:28-Aug-2019 Instruction Type:Patient Education Patient Instructions Indication:BMI 33.0-33.9,adult Start:28-Aug-2019 Instruction Type:Provider Instructions for Treatment How to access health informa tion online Indication:Nonsmoker Start:03-Apr-2019 Instruction Type:Patient Education How to access health informa tion online - Detail Indication:Nonsmoker Start:03-Apr-2019 Instruction Type:Patient Education Patient Instructions Indication:Nonsmoker Start:03-Apr-2019 Instruction Type:Provider Instructions for Treatment How to access health informa tion online Indication:Diabetes mellitus type 2, uncontrolled (Renamed from Uncontrolled type 2 diabetes mellitus) Start:13-Mar-2019 Instruction Type:Patient Education How to access health informa tion online - Detail Indication:Diabetes mellitus type 2, uncontrolled (Renamed from Uncontrolled type 2 diabetes mellitus) Start:13-Mar-2019 Instruction Type:Patient Education Patient Instructions Indication:BMI 35.0-35.9,adult Start:13-Mar-2019 Instruction Type:Provider Instructions for Treatment How to access health informa tion online Indication:Type 2 diabetes mellitus with hemoglobin A1c goal of less than 7.0% Start:19-Jan-2019 Instruction Type:Patient Education How to access health informa tion online - Detail Indication:Type 2 diabetes mellitus with hemoglobin A1c goal of less than 7.0% Start:19-Jan-2019 Instruction Type:Patient Education Patient Instructions Indication:Hypothyroid Start:19-Jan-2019 Instruction Type:Provider Instructions for Treatment How to access health informa tion online Indication:Nonsmoker Start:05-Oct-2018 Instruction Type:Patient Education How to access health informa tion online - Detail Indication:Nonsmoker Start:05-Oct-2018 Instruction Type:Patient Education Patient Instructions Indication:Atypical lobular hyperplasia of right breast Start:05-Oct-2018 Instruction Type:Provider Instructions for Treatment How to access health informa tion online Indication:BMI 35.0-35.9,adult Start:16-Sep-2018 Instruction Type:Patient Education How to access health informa tion online - Detail Indication:BMI 35.0-35.9,adult Start:16-Sep-2018 Instruction Type:Patient Education Patient Instructions Indication:BMI 35.0-35.9,adult Start:16-Sep-2018 Instruction Type:Provider Instructions for Treatment How to access health informa tion online Indication:Nonsmoker Start:27-Jun-2018 Instruction Type:Patient Education How to access health informa tion online - Detail Indication:Nonsmoker Start:27-Jun-2018 Instruction Type:Patient Education Patient Instructions Indication:Elevated liver enzymes Start:27-Jun-2018 Instruction Type:Provider Instructions for Treatment How to access health informa tion online Indication:Type 2 diabetes mellitus with hemoglobin A1c goal of less than 7.0% Start:14-Jun-2018 Instruction Type:Patient Education How to access health informa tion online - Detail Indication:Type 2 diabetes mellitus with hemoglobin A1c goal of less than 7.0% Start:14-Jun-2018 Instruction Type:Patient Education Patient Instructions Indication:Type 2 diabetes mellitus with hemoglobin A1c goal of less than 7.0% Start:14-Jun-2018 Instruction Type:Provider Instructions for Treatment How to access health informa tion online Indication:Type 2 diabetes mellitus with hemoglobin A1c goal of less than 7.0% Start:15-Mar-2018 Instruction Type:Patient Education How to access health informa tion online - Detail Indication:Type 2 diabetes mellitus with hemoglobin A1c goal of less than 7.0% Start:15-Mar-2018 Instruction Type:Patient Education Patient Instructions Indication:Type 2 diabetes mellitus with hemoglobin A1c goal of less than 7.0% Start:15-Mar-2018 Instruction Type:Provider Instructions for Treatment How to access health informa tion online Indication:Type 2 diabetes mellitus with hemoglobin A1c goal of less than 7.0% Start:06-Dec-2017 Instruction Type:Patient Education How to access health informa tion online - Detail Indication:Type 2 diabetes mellitus with hemoglobin A1c goal of less than 7.0% Start:06-Dec-2017 Instruction Type:Patient Education Patient Instructions Indication:Type 2 diabetes mellitus with hemoglobin A1c goal of less than 7.0% Start:06-Dec-2017 Instruction Type:Provider Instructions for Treatment How to access health informa tion online Indication:Nonsmoker Start:30-Nov-2017 Instruction Type:Patient Education How to access health informa tion online - Detail Indication:Nonsmoker Start:30-Nov-2017 Instruction Type:Patient Education Patient Instructions Indication:Sinusitis, bacterial Start:30-Nov-2017 Instruction Type:Provider Instructions for Treatment How to access health informa tion online Indication:Type 2 diabetes mellitus with hemoglobin A1c goal of less than 7.0% Start:10-Aug-2017 Instruction Type:Patient Education How to access health informa tion online - Detail Indication:Type 2 diabetes mellitus with hemoglobin A1c goal of less than 7.0% Start:10-Aug-2017 Instruction Type:Patient Education Patient Instructions Indication:Type 2 diabetes mellitus with hemoglobin A1c goal of less than 7.0% Start:10-Aug-2017 Instruction Type:Provider Instructions for Treatment How to access health informa tion online Indication:Uncontrolled type 2 diabetes mellitus without complication, without long-term current use of insulin Start:07-May-2017 Instruction Type:Patient Education How to access health informa tion online - Detail Indication:Uncontrolled type 2 diabetes mellitus without complication, without long-term current use of insulin Start:07-May-2017 Instruction Type:Patient Education Patient Instructions Indication:Uncontrolled type 2 diabetes mellitus without complication, without long-term current use of insulin Start:07-May-2017 Instruction Type:Provider Instructions for Treatment Patient Instructions Indication:Nonsmoker Start:09-Feb-2017 Instruction Type:Provider Instructions for Treatment How to access health informa [employer] online Indication:Uncontrolled type 2 diabetes mellitus without complication, without long-term current use of insulin Start:09-Dec-2016 Instruction Type:Patient Education How to access health informa tion online - Detail Indication:Uncontrolled type 2 diabetes mellitus without complication, without long-term current use of insulin Start:09-Dec-2016 Instruction Type:Patient Education Patient Instructions Indication:Uncontrolled type 2 diabetes mellitus without complication, without long-term current use of insulin Start:09-Dec-2016 Instruction Type:Provider Instructions for Treatment DISCONTINUED - LIPID PANEL ( [id number]) Indication:Hypercholesteremia Start:13-Oct-2016 Instruction Type:Patient Education DISCONTINUED - Glucose, PP/2 Hour (07451) Indication:Family history of diabetes mellitus Start:13-Oct-2016 Instruction Type:Patient Education DISCONTINUED - Hemoglobin Glyclated (HGB A1C) (90940) Indication:Family history of diabetes mellitus Start:13-Oct-2016 Instruction Type:Patient Education How to access health informa [employer] online Indication:Uncontrolled type 2 diabetes mellitus without complication, without long-term current use of insulin Start:13-Oct-2016 Instruction Type:Patient Education How to access health informa tion online - Detail Indication:Uncontrolled type 2 diabetes mellitus without complication, without long-term current use of insulin Start:13-Oct-2016 Instruction Type:Patient Education Patient Instructions Indication:Uncontrolled type 2 diabetes mellitus without complication, without long-term current use of insulin Start:13-Oct-2016 Instruction Type:Provider Instructions for Treatment Patient Instructions Indication:Nonsmoker Start:30-Sep-2016 Instruction Type:Provider Instructions for Treatment How to access health informa [employer] online Indication:Uncontrolled type 2 diabetes mellitus without complication, without long-term current use of insulin Start:30-Sep-2016 Instruction Type:Patient Education How to access health informa [employer] online - Detail Indication:Uncontrolled type 2 diabetes mellitus without complication, without long-term current use of insulin Start:30-Sep-2016 Instruction Type:Patient Education Patient Instructions Indication:Hypothyroid Start:28-Aug-2013 Instruction Type:Provider Instructions for Treatment Patient Instructions Indication:Family history of diabetes mellitus Start:06-Mar-2013 Instruction Type:Provider Instructions for Treatment [facility]; [facility] Work Phone: [phone]* Name Dates Details Patient Instructions Indication:Type 2 diabetes mellitus with hemoglobin A1c goal of less than 7.0% Start:19-Jan-2023 Instruction Type:Provider Instructions for Treatment How to Access Health Informa tion Online using Patient Portal and [employer] Indication:Type 2 diabetes mellitus with hemoglobin A1c goal of less than 7.0% Start:19-Jan-2023 Instruction Type:Patient Education How to Access Health Informa tion Online using Patient Portal and [employer] Indication:Type 2 diabetes mellitus with hemoglobin A1c goal of less than 7.0% Start:22-Sep-2022 Instruction Type:Patient Education Patient Instructions Indication:Type 2 diabetes mellitus with hemoglobin A1c goal of less than 7.0% Start:22-Sep-2022 Instruction Type:Provider Instructions for Treatment Patient Instructions Indication:BMI 33.0-33.9,adult Start:12-Aug-2022 Instruction Type:Provider Instructions for Treatment How to Access Health Informa tion Online using Patient Portal and [employer] Indication:BMI 33.0-33.9,adult Start:12-Aug-2022 Instruction Type:Patient Education Patient Instructions Indication:Nonsmoker Start:07-Jul-2022 Instruction Type:Provider Instructions for Treatment How to Access Health Informa tion Online using Patient Portal and [employer] Indication:Nonsmoker Start:07-Jul-2022 Instruction Type:Patient Education Patient Instructions Indication:Nonsmoker Start:26-May-2022 Instruction Type:Provider Instructions for Treatment How to Access Health Informa tion Online using Patient Portal and [employer] Indication:Nonsmoker Start:26-May-2022 Instruction Type:Patient Education Patient Instructions Indication:Type 2 diabetes mellitus with hemoglobin A1c goal of less than 7.0% Start:27-Feb-2022 Instruction Type:Provider Instructions for Treatment How to Access Health Informa tion Online using Patient Portal and [employer] Indication:Type 2 diabetes mellitus with hemoglobin A1c goal of less than 7.0% Start:27-Feb-2022 Instruction Type:Patient Education Patient Instructions Indication:BMI 33.0-33.9,adult Start:18-Nov-2021 Instruction Type:Provider Instructions for Treatment How to Access Health Informa tion Online using Patient Portal and [employer] Indication:Type 2 diabetes mellitus with hemoglobin A1c goal of less than 7.0% Start:18-Nov-2021 Instruction Type:Patient Education Patient Instructions Indication:Vitamin D deficiency Start:13-Aug-2021 Instruction Type:Provider Instructions for Treatment How to Access Health Informa tion Online using Patient Portal and [employer] Indication:BMI 34.0-34.9,adult Start:13-Aug-2021 Instruction Type:Patient Education Patient Instructions Indication:Temporary low platelet count Start:19-Mar-2021 Instruction Type:Provider Instructions for Treatment How to Access Health Informa tion Online using Patient Portal and [employer] Apps Indication:Nonsmoker Start:19-Mar-2021 Instruction Type:Patient Education Patient Instructions Indication:Acute sinusitis Start:24-Feb-2021 Instruction Type:Provider Instructions for Treatment How to Access Health Informa tion Online using Patient Portal and [employer] Apps Indication:Acute sinusitis Start:24-Feb-2021 Instruction Type:Patient Education How to access health informa tion online Indication:Nonsmoker Start:10-Jun-2020 Instruction Type:Patient Education How to access health informa tion online - Detail Indication:Nonsmoker Start:10-Jun-2020 Instruction Type:Patient Education Patient Instructions Indication:BMI 34.0-34.9,adult Start:10-Jun-2020 Instruction Type:Provider Instructions for Treatment How to access health informa tion online Indication:Nonsmoker Start:23-Feb-2020 Instruction Type:Patient Education How to access health informa tion online - Detail Indication:Nonsmoker Start:23-Feb-2020 Instruction Type:Patient Education Patient Instructions Indication:Nonsmoker Start:23-Feb-2020 Instruction Type:Provider Instructions for Treatment How to access health informa tion online Indication:Nonsmoker Start:21-Feb-2020 Instruction Type:Patient Education How to access health informa tion online - Detail Indication:Nonsmoker Start:21-Feb-2020 Instruction Type:Patient Education Patient Instructions Indication:Nonsmoker Start:21-Feb-2020 Instruction Type:Provider Instructions for Treatment How to access health informa tion online Indication:Nonsmoker Start:16-Feb-2020 Instruction Type:Patient Education How to access health informa tion online - Detail Indication:Nonsmoker Start:16-Feb-2020 Instruction Type:Patient Education Patient Instructions Indication:BMI 34.0-34.9,adult Start:16-Feb-2020 Instruction Type:Provider Instructions for Treatment How to access health informa tion online Indication:Nonsmoker Start:14-Dec-2019 Instruction Type:Patient Education How to access health informa tion online - Detail Indication:Nonsmoker Start:14-Dec-2019 Instruction Type:Patient Education Patient Instructions Indication:Cough Start:14-Dec-2019 Instruction Type:Provider Instructions for Treatment How to access health informa tion online Indication:Type 2 diabetes mellitus with hemoglobin A1c goal of less than 7.0% Start:06-Nov-2019 Instruction Type:Patient Education How to access health informa tion online - Detail Indication:Type 2 diabetes mellitus with hemoglobin A1c goal of less than 7.0% Start:06-Nov-2019 Instruction Type:Patient Education Patient Instructions Indication:Vitamin D deficiency Start:06-Nov-2019 Instruction Type:Provider Instructions for Treatment How to access health informa tion online Indication:Type 2 diabetes mellitus with hemoglobin A1c goal of less than 7.0% Start:28-Aug-2019 Instruction Type:Patient Education How to access health informa tion online - Detail Indication:Type 2 diabetes mellitus with hemoglobin A1c goal of less than 7.0% Start:28-Aug-2019 Instruction Type:Patient Education Patient Instructions Indication:BMI 33.0-33.9,adult Start:28-Aug-2019 Instruction Type:Provider Instructions for Treatment How to access health informa tion online Indication:Nonsmoker Start:03-Apr-2019 Instruction Type:Patient Education How to access health informa tion online - Detail Indication:Nonsmoker Start:03-Apr-2019 Instruction Type:Patient Education Patient Instructions Indication:Nonsmoker Start:03-Apr-2019 Instruction Type:Provider Instructions for Treatment How to access health informa tion online Indication:Diabetes mellitus type 2, uncontrolled (Renamed from Uncontrolled type 2 diabetes mellitus) Start:13-Mar-2019 Instruction Type:Patient Education How to access health informa tion online - Detail Indication:Diabetes mellitus type 2, uncontrolled (Renamed from Uncontrolled type 2 diabetes mellitus) Start:13-Mar-2019 Instruction Type:Patient Education Patient Instructions Indication:BMI 35.0-35.9,adult Start:13-Mar-2019 Instruction Type:Provider Instructions for Treatment How to access health informa tion online Indication:Type 2 diabetes mellitus with hemoglobin A1c goal of less than 7.0% Start:19-Jan-2019 Instruction Type:Patient Education How to access health informa tion online - Detail Indication:Type 2 diabetes mellitus with hemoglobin A1c goal of less than 7.0% Start:19-Jan-2019 Instruction Type:Patient Education Patient Instructions Indication:Hypothyroid Start:19-Jan-2019 Instruction Type:Provider Instructions for Treatment How to access health informa tion online Indication:Nonsmoker Start:05-Oct-2018 Instruction Type:Patient Education How to access health informa tion online - Detail Indication:Nonsmoker Start:05-Oct-2018 Instruction Type:Patient Education Patient Instructions Indication:Atypical lobular hyperplasia of right breast Start:05-Oct-2018 Instruction Type:Provider Instructions for Treatment How to access health informa tion online Indication:BMI 35.0-35.9,adult Start:16-Sep-2018 Instruction Type:Patient Education How to access health informa tion online - Detail Indication:BMI 35.0-35.9,adult Start:16-Sep-2018 Instruction Type:Patient Education Patient Instructions Indication:BMI 35.0-35.9,adult Start:16-Sep-2018 Instruction Type:Provider Instructions for Treatment How to access health informa tion online Indication:Nonsmoker Start:27-Jun-2018 Instruction Type:Patient Education How to access health informa tion online - Detail Indication:Nonsmoker Start:27-Jun-2018 Instruction Type:Patient Education Patient Instructions Indication:Elevated liver enzymes Start:27-Jun-2018 Instruction Type:Provider Instructions for Treatment How to access health informa tion online Indication:Type 2 diabetes mellitus with hemoglobin A1c goal of less than 7.0% Start:14-Jun-2018 Instruction Type:Patient Education How to access health informa tion online - Detail Indication:Type 2 diabetes mellitus with hemoglobin A1c goal of less than 7.0% Start:14-Jun-2018 Instruction Type:Patient Education Patient Instructions Indication:Type 2 diabetes mellitus with hemoglobin A1c goal of less than 7.0% Start:14-Jun-2018 Instruction Type:Provider Instructions for Treatment How to access health informa tion online Indication:Type 2 diabetes mellitus with hemoglobin A1c goal of less than 7.0% Start:15-Mar-2018 Instruction Type:Patient Education How to access health informa tion online - Detail Indication:Type 2 diabetes mellitus with hemoglobin A1c goal of less than 7.0% Start:15-Mar-2018 Instruction Type:Patient Education Patient Instructions Indication:Type 2 diabetes mellitus with hemoglobin A1c goal of less than 7.0% Start:15-Mar-2018 Instruction Type:Provider Instructions for Treatment How to access health informa tion online Indication:Type 2 diabetes mellitus with hemoglobin A1c goal of less than 7.0% Start:06-Dec-2017 Instruction Type:Patient Education How to access health informa tion online - Detail Indication:Type 2 diabetes mellitus with hemoglobin A1c goal of less than 7.0% Start:06-Dec-2017 Instruction Type:Patient Education Patient Instructions Indication:Type 2 diabetes mellitus with hemoglobin A1c goal of less than 7.0% Start:06-Dec-2017 Instruction Type:Provider Instructions for Treatment How to access health informa tion online Indication:Nonsmoker Start:30-Nov-2017 Instruction Type:Patient Education How to access health informa tion online - Detail Indication:Nonsmoker Start:30-Nov-2017 Instruction Type:Patient Education Patient Instructions Indication:Sinusitis, bacterial Start:30-Nov-2017 Instruction Type:Provider Instructions for Treatment How to access health informa tion online Indication:Type 2 diabetes mellitus with hemoglobin A1c goal of less than 7.0% Start:10-Aug-2017 Instruction Type:Patient Education How to access health informa tion online - Detail Indication:Type 2 diabetes mellitus with hemoglobin A1c goal of less than 7.0% Start:10-Aug-2017 Instruction Type:Patient Education Patient Instructions Indication:Type 2 diabetes mellitus with hemoglobin A1c goal of less than 7.0% Start:10-Aug-2017 Instruction Type:Provider Instructions for Treatment How to access health informa tion online Indication:Uncontrolled type 2 diabetes mellitus without complication, without long-term current use of insulin Start:07-May-2017 Instruction Type:Patient Education How to access health informa tion online - Detail Indication:Uncontrolled type 2 diabetes mellitus without complication, without long-term current use of insulin Start:07-May-2017 Instruction Type:Patient Education Patient Instructions Indication:Uncontrolled type 2 diabetes mellitus without complication, without long-term current use of insulin Start:07-May-2017 Instruction Type:Provider Instructions for Treatment Patient Instructions Indication:Nonsmoker Start:09-Feb-2017 Instruction Type:Provider Instructions for Treatment How to access health informa tion online Indication:Uncontrolled type 2 diabetes mellitus without complication, without long-term current use of insulin Start:09-Dec-2016 Instruction Type:Patient Education How to access health informa tion online - Detail Indication:Uncontrolled type 2 diabetes mellitus without complication, without long-term current use of insulin Start:09-Dec-2016 Instruction Type:Patient Education Patient Instructions Indication:Uncontrolled type 2 diabetes mellitus without complication, without long-term current use of insulin Start:09-Dec-2016 Instruction Type:Provider Instructions for Treatment DISCONTINUED - LIPID PANEL ( [id number]) Indication:Hypercholesteremia Start:13-Oct-2016 Instruction Type:Patient Education DISCONTINUED - Glucose, PP/2 Hour (38353) Indication:Family history of diabetes mellitus Start:13-Oct-2016 Instruction Type:Patient Education DISCONTINUED - Hemoglobin Glyclated (HGB A1C) (39152) Indication:Family history of diabetes mellitus Start:13-Oct-2016 Instruction Type:Patient Education How to access health informa tion online Indication:Uncontrolled type 2 diabetes mellitus without complication, without long-term current use of insulin Start:13-Oct-2016 Instruction Type:Patient Education How to access health informa tion online - Detail Indication:Uncontrolled type 2 diabetes mellitus without complication, without long-term current use of insulin Start:13-Oct-2016 Instruction Type:Patient Education Patient Instructions Indication:Uncontrolled type 2 diabetes mellitus without complication, without long-term current use of insulin Start:13-Oct-2016 Instruction Type:Provider Instructions for Treatment Patient Instructions Indication:Nonsmoker Start:30-Sep-2016 Instruction Type:Provider Instructions for Treatment How to access health informa tion online Indication:Uncontrolled type 2 diabetes mellitus without complication, without long-term current use of insulin Start:30-Sep-2016 Instruction Type:Patient Education How to access health informa tion online - Detail Indication:Uncontrolled type 2 diabetes mellitus without complication, without long-term current use of insulin Start:30-Sep-2016 Instruction Type:Patient Education Patient Instructions Indication:Hypothyroid Start:28-Aug-2013 Instruction Type:Provider Instructions for Treatment Patient Instructions Indication:Family history of diabetes mellitus Start:06-Mar-2013 Instruction Type:Provider Instructions for Treatment [facility]; [facility] Work Phone: Instructions* Name Dates Details Patient Instructions Indication:BMI 32.0-32.9,adult Start:20-Jul-2023 Instruction Type:Provider Instructions for Treatment How to Access Health [employer] Online using Patient Portal and [employer] Apps Indication:BMI 32.0-32.9,adult Start:20-Jul-2023 Instruction Type:Patient Education Patient Instructions Indication:Type 2 diabetes mellitus with hemoglobin A1c goal of less than 7.0% Start:19-Jan-2023 Instruction Type:Provider Instructions for Treatment How to Access Health Informa tion Online using Patient Portal and [employer] Indication:Type 2 diabetes mellitus with hemoglobin A1c goal of less than 7.0% Start:19-Jan-2023 Instruction Type:Patient Education How to Access Health Informa tion Online using Patient Portal and [employer] Apps Indication:Type 2 diabetes mellitus with hemoglobin A1c goal of less than 7.0% Start:22-Sep-2022 Instruction Type:Patient Education Patient Instructions Indication:Type 2 diabetes mellitus with hemoglobin A1c goal of less than 7.0% Start:22-Sep-2022 Instruction Type:Provider Instructions for Treatment Patient Instructions Indication:BMI 33.0-33.9,adult Start:12-Aug-2022 Instruction Type:Provider Instructions for Treatment How to Access Health Informa tion Online using Patient Portal and [employer] Indication:BMI 33.0-33.9,adult Start:12-Aug-2022 Instruction Type:Patient Education Patient Instructions Indication:Nonsmoker Start:07-Jul-2022 Instruction Type:Provider Instructions for Treatment How to Access Health Informa tion Online using Patient Portal and [employer] Indication:Nonsmoker Start:07-Jul-2022 Instruction Type:Patient Education Patient Instructions Indication:Nonsmoker Start:26-May-2022 Instruction Type:Provider Instructions for Treatment How to Access Health Informa tion Online using Patient Portal and [employer] Indication:Nonsmoker Start:26-May-2022 Instruction Type:Patient Education Patient Instructions Indication:Type 2 diabetes mellitus with hemoglobin A1c goal of less than 7.0% Start:27-Feb-2022 Instruction Type:Provider Instructions for Treatment How to Access Health Informa tion Online using Patient Portal and [employer] Indication:Type 2 diabetes mellitus with hemoglobin A1c goal of less than 7.0% Start:27-Feb-2022 Instruction Type:Patient Education Patient Instructions Indication:BMI 33.0-33.9,adult Start:18-Nov-2021 Instruction Type:Provider Instructions for Treatment How to Access Health Informa tion Online using Patient Portal and [employer] Indication:Type 2 diabetes mellitus with hemoglobin A1c goal of less than 7.0% Start:18-Nov-2021 Instruction Type:Patient Education Patient Instructions Indication:Vitamin D deficiency Start:13-Aug-2021 Instruction Type:Provider Instructions for Treatment How to Access Health Informa tion Online using Patient Portal and [employer] Indication:BMI 34.0-34.9,adult Start:13-Aug-2021 Instruction Type:Patient Education Patient Instructions Indication:Temporary low platelet count Start:19-Mar-2021 Instruction Type:Provider Instructions for Treatment How to Access Health Informa tion Online using Patient Portal and [employer] Indication:Nonsmoker Start:19-Mar-2021 Instruction Type:Patient Education Patient Instructions Indication:Acute sinusitis Start:24-Feb-2021 Instruction Type:Provider Instructions for Treatment How to Access Health Informa tion Online using Patient Portal and [employer] Indication:Acute sinusitis Start:24-Feb-2021 Instruction Type:Patient Education How to access health informa tion online Indication:Nonsmoker Start:10-Jun-2020 Instruction Type:Patient Education How to access health informa tion online - Detail Indication:Nonsmoker Start:10-Jun-2020 Instruction Type:Patient Education Patient Instructions Indication:BMI 34.0-34.9,adult Start:10-Jun-2020 Instruction Type:Provider Instructions for Treatment How to access health informa tion online Indication:Nonsmoker Start:23-Feb-2020 Instruction Type:Patient Education How to access health informa tion online - Detail Indication:Nonsmoker Start:23-Feb-2020 Instruction Type:Patient Education Patient Instructions Indication:Nonsmoker Start:23-Feb-2020 Instruction Type:Provider Instructions for Treatment How to access health informa tion online Indication:Nonsmoker Start:21-Feb-2020 Instruction Type:Patient Education How to access health informa tion online - Detail Indication:Nonsmoker Start:21-Feb-2020 Instruction Type:Patient Education Patient Instructions Indication:Nonsmoker Start:21-Feb-2020 Instruction Type:Provider Instructions for Treatment How to access health informa tion online Indication:Nonsmoker Start:16-Feb-2020 Instruction Type:Patient Education How to access health informa tion online - Detail Indication:Nonsmoker Start:16-Feb-2020 Instruction Type:Patient Education Patient Instructions Indication:BMI 34.0-34.9,adult Start:16-Feb-2020 Instruction Type:Provider Instructions for Treatment How to access health informa tion online Indication:Nonsmoker Start:14-Dec-2019 Instruction Type:Patient Education How to access health informa tion online - Detail Indication:Nonsmoker Start:14-Dec-2019 Instruction Type:Patient Education Patient Instructions Indication:Cough Start:14-Dec-2019 Instruction Type:Provider Instructions for Treatment How to access health informa tion online Indication:Type 2 diabetes mellitus with hemoglobin A1c goal of less than 7.0% Start:06-Nov-2019 Instruction Type:Patient Education How to access health informa tion online - Detail Indication:Type 2 diabetes mellitus with hemoglobin A1c goal of less than 7.0% Start:06-Nov-2019 Instruction Type:Patient Education Patient Instructions Indication:Vitamin D deficiency Start:06-Nov-2019 Instruction Type:Provider Instructions for Treatment How to access health informa tion online Indication:Type 2 diabetes mellitus with hemoglobin A1c goal of less than 7.0% Start:28-Aug-2019 Instruction Type:Patient Education How to access health informa tion online - Detail Indication:Type 2 diabetes mellitus with hemoglobin A1c goal of less than 7.0% Start:28-Aug-2019 Instruction Type:Patient Education Patient Instructions Indication:BMI 33.0-33.9,adult Start:28-Aug-2019 Instruction Type:Provider Instructions for Treatment How to access health informa tion online Indication:Nonsmoker Start:03-Apr-2019 Instruction Type:Patient Education How to access health informa tion online - Detail Indication:Nonsmoker Start:03-Apr-2019 Instruction Type:Patient Education Patient Instructions Indication:Nonsmoker Start:03-Apr-2019 Instruction Type:Provider Instructions for Treatment How to access health informa tion online Indication:Diabetes mellitus type 2, uncontrolled (Renamed from Uncontrolled type 2 diabetes mellitus) Start:13-Mar-2019 Instruction Type:Patient Education How to access health informa tion online - Detail Indication:Diabetes mellitus type 2, uncontrolled (Renamed from Uncontrolled type 2 diabetes mellitus) Start:13-Mar-2019 Instruction Type:Patient Education Patient Instructions Indication:BMI 35.0-35.9,adult Start:13-Mar-2019 Instruction Type:Provider Instructions for Treatment How to access health informa tion online Indication:Type 2 diabetes mellitus with hemoglobin A1c goal of less than 7.0% Start:19-Jan-2019 Instruction Type:Patient Education How to access health informa tion online - Detail Indication:Type 2 diabetes mellitus with hemoglobin A1c goal of less than 7.0% Start:19-Jan-2019 Instruction Type:Patient Education Patient Instructions Indication:Hypothyroid Start:19-Jan-2019 Instruction Type:Provider Instructions for Treatment How to access health informa tion online Indication:Nonsmoker Start:05-Oct-2018 Instruction Type:Patient Education How to access health informa tion online - Detail Indication:Nonsmoker Start:05-Oct-2018 Instruction Type:Patient Education Patient Instructions Indication:Atypical lobular hyperplasia of right breast Start:05-Oct-2018 Instruction Type:Provider Instructions for Treatment How to access health informa tion online Indication:BMI 35.0-35.9,adult Start:16-Sep-2018 Instruction Type:Patient Education How to access health informa tion online - Detail Indication:BMI 35.0-35.9,adult Start:16-Sep-2018 Instruction Type:Patient Education Patient Instructions Indication:BMI 35.0-35.9,adult Start:16-Sep-2018 Instruction Type:Provider Instructions for Treatment How to access health informa tion online Indication:Nonsmoker Start:27-Jun-2018 Instruction Type:Patient Education How to access health informa tion online - Detail Indication:Nonsmoker Start:27-Jun-2018 Instruction Type:Patient Education Patient Instructions Indication:Elevated liver enzymes Start:27-Jun-2018 Instruction Type:Provider Instructions for Treatment How to access health informa tion online Indication:Type 2 diabetes mellitus with hemoglobin A1c goal of less than 7.0% Start:14-Jun-2018 Instruction Type:Patient Education How to access health informa tion online - Detail Indication:Type 2 diabetes mellitus with hemoglobin A1c goal of less than 7.0% Start:14-Jun-2018 Instruction Type:Patient Education Patient Instructions Indication:Type 2 diabetes mellitus with hemoglobin A1c goal of less than 7.0% Start:14-Jun-2018 Instruction Type:Provider Instructions for Treatment How to access health informa tion online Indication:Type 2 diabetes mellitus with hemoglobin A1c goal of less than 7.0% Start:15-Mar-2018 Instruction Type:Patient Education How to access health informa tion online - Detail Indication:Type 2 diabetes mellitus with hemoglobin A1c goal of less than 7.0% Start:15-Mar-2018 Instruction Type:Patient Education Patient Instructions Indication:Type 2 diabetes mellitus with hemoglobin A1c goal of less than 7.0% Start:15-Mar-2018 Instruction Type:Provider Instructions for Treatment How to access health informa tion online Indication:Type 2 diabetes mellitus with hemoglobin A1c goal of less than 7.0% Start:06-Dec-2017 Instruction Type:Patient Education How to access health informa tion online - Detail Indication:Type 2 diabetes mellitus with hemoglobin A1c goal of less than 7.0% Start:06-Dec-2017 Instruction Type:Patient Education Patient Instructions Indication:Type 2 diabetes mellitus with hemoglobin A1c goal of less than 7.0% Start:06-Dec-2017 Instruction Type:Provider Instructions for Treatment How to access health informa tion online Indication:Nonsmoker Start:30-Nov-2017 Instruction Type:Patient Education How to access health informa tion online - Detail Indication:Nonsmoker Start:30-Nov-2017 Instruction Type:Patient Education Patient Instructions Indication:Sinusitis, bacterial Start:30-Nov-2017 Instruction Type:Provider Instructions for Treatment How to access health informa tion online Indication:Type 2 diabetes mellitus with hemoglobin A1c goal of less than 7.0% Start:10-Aug-2017 Instruction Type:Patient Education How to access health informa tion online - Detail Indication:Type 2 diabetes mellitus with hemoglobin A1c goal of less than 7.0% Start:10-Aug-2017 Instruction Type:Patient Education Patient Instructions Indication:Type 2 diabetes mellitus with hemoglobin A1c goal of less than 7.0% Start:10-Aug-2017 Instruction Type:Provider Instructions for Treatment How to access health informa tion online Indication:Uncontrolled type 2 diabetes mellitus without complication, without long-term current use of insulin Start:07-May-2017 Instruction Type:Patient Education How to access health informa tion online - Detail Indication:Uncontrolled type 2 diabetes mellitus without complication, without long-term current use of insulin Start:07-May-2017 Instruction Type:Patient Education Patient Instructions Indication:Uncontrolled type 2 diabetes mellitus without complication, without long-term current use of insulin Start:07-May-2017 Instruction Type:Provider Instructions for Treatment Patient Instructions Indication:Nonsmoker Start:09-Feb-2017 Instruction Type:Provider Instructions for Treatment How to access health informa tion online Indication:Uncontrolled type 2 diabetes mellitus without complication, without long-term current use of insulin Start:09-Dec-2016 Instruction Type:Patient Education How to access health informa tion online - Detail Indication:Uncontrolled type 2 diabetes mellitus without complication, without long-term current use of insulin Start:09-Dec-2016 Instruction Type:Patient Education Patient Instructions Indication:Uncontrolled type 2 diabetes mellitus without complication, without long-term current use of insulin Start:09-Dec-2016 Instruction Type:Provider Instructions for Treatment DISCONTINUED - LIPID PANEL ( [id number]) Indication:Hypercholesteremia Start:13-Oct-2016 Instruction Type:Patient Education DISCONTINUED - Glucose, PP/2 Hour (28667) Indication:Family history of diabetes mellitus Start:13-Oct-2016 Instruction Type:Patient Education DISCONTINUED - Hemoglobin Glyclated (HGB A1C) (06211) Indication:Family history of diabetes mellitus Start:13-Oct-2016 Instruction Type:Patient Education How to access health informa tion online Indication:Uncontrolled type 2 diabetes mellitus without complication, without long-term current use of insulin Start:13-Oct-2016 Instruction Type:Patient Education How to access health informa tion online - Detail Indication:Uncontrolled type 2 diabetes mellitus without complication, without long-term current use of insulin Start:13-Oct-2016 Instruction Type:Patient Education Patient Instructions Indication:Uncontrolled type 2 diabetes mellitus without complication, without long-term current use of insulin Start:13-Oct-2016 Instruction Type:Provider Instructions for Treatment Patient Instructions Indication:Nonsmoker Start:30-Sep-2016 Instruction Type:Provider Instructions for Treatment How to access health informa tion online Indication:Uncontrolled type 2 diabetes mellitus without complication, without long-term current use of insulin Start:30-Sep-2016 Instruction Type:Patient Education How to access health informa tion online - Detail Indication:Uncontrolled type 2 diabetes mellitus without complication, without long-term current use of insulin Start:30-Sep-2016 Instruction Type:Patient Education Patient Instructions Indication:Hypothyroid Start:28-Aug-2013 Instruction Type:Provider Instructions for Treatment Patient Instructions Indication:Family history of diabetes mellitus Start:06-Mar-2013 Instruction Type:Provider Instructions for Treatment [facility] Work Phone: Instructions* Name Dates Details Patient Instructions Indication:BMI 32.0-32.9,adult Start:20-Jul-2023 Instruction Type:Provider Instructions for Treatment How to Access Health Informa tion Online using Patient Portal and [employer] Indication:BMI 32.0-32.9,adult Start:20-Jul-2023 Instruction Type:Patient Education Patient Instructions Indication:Type 2 diabetes mellitus with hemoglobin A1c goal of less than 7.0% Start:19-Jan-2023 Instruction Type:Provider Instructions for Treatment How to Access Health Informa tion Online using Patient Portal and [employer] Apps Indication:Type 2 diabetes mellitus with hemoglobin A1c goal of less than 7.0% Start:19-Jan-2023 Instruction Type:Patient Education How to Access Health Informa tion Online using Patient Portal and [employer] Apps Indication:Type 2 diabetes mellitus with hemoglobin A1c goal of less than 7.0% Start:22-Sep-2022 Instruction Type:Patient Education Patient Instructions Indication:Type 2 diabetes mellitus with hemoglobin A1c goal of less than 7.0% Start:22-Sep-2022 Instruction Type:Provider Instructions for Treatment Patient Instructions Indication:BMI 33.0-33.9,adult Start:12-Aug-2022 Instruction Type:Provider Instructions for Treatment How to Access Health Informa tion Online using Patient Portal and [employer] Apps Indication:BMI 33.0-33.9,adult Start:12-Aug-2022 Instruction Type:Patient Education Patient Instructions Indication:Nonsmoker Start:07-Jul-2022 Instruction Type:Provider Instructions for Treatment How to Access Health Informa tion Online using Patient Portal and [employer] Apps Indication:Nonsmoker Start:07-Jul-2022 Instruction Type:Patient Education Patient Instructions Indication:Nonsmoker Start:26-May-2022 Instruction Type:Provider Instructions for Treatment How to Access Health Informa tion Online using Patient Portal and [employer] Apps Indication:Nonsmoker Start:26-May-2022 Instruction Type:Patient Education Patient Instructions Indication:Type 2 diabetes mellitus with hemoglobin A1c goal of less than 7.0% Start:27-Feb-2022 Instruction Type:Provider Instructions for Treatment How to Access Health Informa tion Online using Patient Portal and [employer] Apps Indication:Type 2 diabetes mellitus with hemoglobin A1c goal of less than 7.0% Start:27-Feb-2022 Instruction Type:Patient Education Patient Instructions Indication:BMI 33.0-33.9,adult Start:18-Nov-2021 Instruction Type:Provider Instructions for Treatment How to Access Health Informa tion Online using Patient Portal and [employer] Apps Indication:Type 2 diabetes mellitus with hemoglobin A1c goal of less than 7.0% Start:18-Nov-2021 Instruction Type:Patient Education Patient Instructions Indication:Vitamin D deficiency Start:13-Aug-2021 Instruction Type:Provider Instructions for Treatment How to Access Health Informa tion Online using Patient Portal and [employer] Apps Indication:BMI 34.0-34.9,adult Start:13-Aug-2021 Instruction Type:Patient Education Patient Instructions Indication:Temporary low platelet count Start:19-Mar-2021 Instruction Type:Provider Instructions for Treatment How to Access Health Informa tion Online using Patient Portal and [employer] Apps Indication:Nonsmoker Start:19-Mar-2021 Instruction Type:Patient Education Patient Instructions Indication:Acute sinusitis Start:24-Feb-2021 Instruction Type:Provider Instructions for Treatment How to Access Health Informa tion Online using Patient Portal and [employer] Apps Indication:Acute sinusitis Start:24-Feb-2021 Instruction Type:Patient Education How to access health informa tion online Indication:Nonsmoker Start:10-Jun-2020 Instruction Type:Patient Education How to access health informa tion online - Detail Indication:Nonsmoker Start:10-Jun-2020 Instruction Type:Patient Education Patient Instructions Indication:BMI 34.0-34.9,adult Start:10-Jun-2020 Instruction Type:Provider Instructions for Treatment How to access health informa tion online Indication:Nonsmoker Start:23-Feb-2020 Instruction Type:Patient Education How to access health informa tion online - Detail Indication:Nonsmoker Start:23-Feb-2020 Instruction Type:Patient Education Patient Instructions Indication:Nonsmoker Start:23-Feb-2020 Instruction Type:Provider Instructions for Treatment How to access health informa tion online Indication:Nonsmoker Start:21-Feb-2020 Instruction Type:Patient Education How to access health informa tion online - Detail Indication:Nonsmoker Start:21-Feb-2020 Instruction Type:Patient Education Patient Instructions Indication:Nonsmoker Start:21-Feb-2020 Instruction Type:Provider Instructions for Treatment How to access health informa tion online Indication:Nonsmoker Start:16-Feb-2020 Instruction Type:Patient Education How to access health informa tion online - Detail Indication:Nonsmoker Start:16-Feb-2020 Instruction Type:Patient Education Patient Instructions Indication:BMI 34.0-34.9,adult Start:16-Feb-2020 Instruction Type:Provider Instructions for Treatment How to access health informa tion online Indication:Nonsmoker Start:14-Dec-2019 Instruction Type:Patient Education How to access health informa tion online - Detail Indication:Nonsmoker Start:14-Dec-2019 Instruction Type:Patient Education Patient Instructions Indication:Cough Start:14-Dec-2019 Instruction Type:Provider Instructions for Treatment How to access health informa tion online Indication:Type 2 diabetes mellitus with hemoglobin A1c goal of less than 7.0% Start:06-Nov-2019 Instruction Type:Patient Education How to access health informa tion online - Detail Indication:Type 2 diabetes mellitus with hemoglobin A1c goal of less than 7.0% Start:06-Nov-2019 Instruction Type:Patient Education Patient Instructions Indication:Vitamin D deficiency Start:06-Nov-2019 Instruction Type:Provider Instructions for Treatment How to access health informa tion online Indication:Type 2 diabetes mellitus with hemoglobin A1c goal of less than 7.0% Start:28-Aug-2019 Instruction Type:Patient Education How to access health informa tion online - Detail Indication:Type 2 diabetes mellitus with hemoglobin A1c goal of less than 7.0% Start:28-Aug-2019 Instruction Type:Patient Education Patient Instructions Indication:BMI 33.0-33.9,adult Start:28-Aug-2019 Instruction Type:Provider Instructions for Treatment How to access health informa tion online Indication:Nonsmoker Start:03-Apr-2019 Instruction Type:Patient Education How to access health informa tion online - Detail Indication:Nonsmoker Start:03-Apr-2019 Instruction Type:Patient Education Patient Instructions Indication:Nonsmoker Start:03-Apr-2019 Instruction Type:Provider Instructions for Treatment How to access health informa tion online Indication:Diabetes mellitus type 2, uncontrolled (Renamed from Uncontrolled type 2 diabetes mellitus) Start:13-Mar-2019 Instruction Type:Patient Education How to access health informa tion online - Detail Indication:Diabetes mellitus type 2, uncontrolled (Renamed from Uncontrolled type 2 diabetes mellitus) Start:13-Mar-2019 Instruction Type:Patient Education Patient Instructions Indication:BMI 35.0-35.9,adult Start:13-Mar-2019 Instruction Type:Provider Instructions for Treatment How to access health informa tion online Indication:Type 2 diabetes mellitus with hemoglobin A1c goal of less than 7.0% Start:19-Jan-2019 Instruction Type:Patient Education How to access health informa tion online - Detail Indication:Type 2 diabetes mellitus with hemoglobin A1c goal of less than 7.0% Start:19-Jan-2019 Instruction Type:Patient Education Patient Instructions Indication:Hypothyroid Start:19-Jan-2019 Instruction Type:Provider Instructions for Treatment How to access health informa tion online Indication:Nonsmoker Start:05-Oct-2018 Instruction Type:Patient Education How to access health informa tion online - Detail Indication:Nonsmoker Start:05-Oct-2018 Instruction Type:Patient Education Patient Instructions Indication:Atypical lobular hyperplasia of right breast Start:05-Oct-2018 Instruction Type:Provider Instructions for Treatment How to access health informa tion online Indication:BMI 35.0-35.9,adult Start:16-Sep-2018 Instruction Type:Patient Education How to access health informa tion online - Detail Indication:BMI 35.0-35.9,adult Start:16-Sep-2018 Instruction Type:Patient Education Patient Instructions Indication:BMI 35.0-35.9,adult Start:16-Sep-2018 Instruction Type:Provider Instructions for Treatment How to access health informa tion online Indication:Nonsmoker Start:27-Jun-2018 Instruction Type:Patient Education How to access health informa tion online - Detail Indication:Nonsmoker Start:27-Jun-2018 Instruction Type:Patient Education Patient Instructions Indication:Elevated liver enzymes Start:27-Jun-2018 Instruction Type:Provider Instructions for Treatment How to access health informa tion online Indication:Type 2 diabetes mellitus with hemoglobin A1c goal of less than 7.0% Start:14-Jun-2018 Instruction Type:Patient Education How to access health informa tion online - Detail Indication:Type 2 diabetes mellitus with hemoglobin A1c goal of less than 7.0% Start:14-Jun-2018 Instruction Type:Patient Education Patient Instructions Indication:Type 2 diabetes mellitus with hemoglobin A1c goal of less than 7.0% Start:14-Jun-2018 Instruction Type:Provider Instructions for Treatment How to access health informa tion online Indication:Type 2 diabetes mellitus with hemoglobin A1c goal of less than 7.0% Start:15-Mar-2018 Instruction Type:Patient Education How to access health informa tion online - Detail Indication:Type 2 diabetes mellitus with hemoglobin A1c goal of less than 7.0% Start:15-Mar-2018 Instruction Type:Patient Education Patient Instructions Indication:Type 2 diabetes mellitus with hemoglobin A1c goal of less than 7.0% Start:15-Mar-2018 Instruction Type:Provider Instructions for Treatment How to access health informa tion online Indication:Type 2 diabetes mellitus with hemoglobin A1c goal of less than 7.0% Start:06-Dec-2017 Instruction Type:Patient Education How to access health informa tion online - Detail Indication:Type 2 diabetes mellitus with hemoglobin A1c goal of less than 7.0% Start:06-Dec-2017 Instruction Type:Patient Education Patient Instructions Indication:Type 2 diabetes mellitus with hemoglobin A1c goal of less than 7.0% Start:06-Dec-2017 Instruction Type:Provider Instructions for Treatment How to access health informa tion online Indication:Nonsmoker Start:30-Nov-2017 Instruction Type:Patient Education How to access health informa tion online - Detail Indication:Nonsmoker Start:30-Nov-2017 Instruction Type:Patient Education Patient Instructions Indication:Sinusitis, bacterial Start:30-Nov-2017 Instruction Type:Provider Instructions for Treatment How to access health informa tion online Indication:Type 2 diabetes mellitus with hemoglobin A1c goal of less than 7.0% Start:10-Aug-2017 Instruction Type:Patient Education How to access health informa tion online - Detail Indication:Type 2 diabetes mellitus with hemoglobin A1c goal of less than 7.0% Start:10-Aug-2017 Instruction Type:Patient Education Patient Instructions Indication:Type 2 diabetes mellitus with hemoglobin A1c goal of less than 7.0% Start:10-Aug-2017 Instruction Type:Provider Instructions for Treatment How to access health informa tion online Indication:Uncontrolled type 2 diabetes mellitus without complication, without long-term current use of insulin Start:07-May-2017 Instruction Type:Patient Education How to access health informa tion online - Detail Indication:Uncontrolled type 2 diabetes mellitus without complication, without long-term current use of insulin Start:07-May-2017 Instruction Type:Patient Education Patient Instructions Indication:Uncontrolled type 2 diabetes mellitus without complication, without long-term current use of insulin Start:07-May-2017 Instruction Type:Provider Instructions for Treatment Patient Instructions Indication:Nonsmoker Start:09-Feb-2017 Instruction Type:Provider Instructions for Treatment How to access health informa tion online Indication:Uncontrolled type 2 diabetes mellitus without complication, without long-term current use of insulin Start:09-Dec-2016 Instruction Type:Patient Education How to access health informa tion online - Detail Indication:Uncontrolled type 2 diabetes mellitus without complication, without long-term current use of insulin Start:09-Dec-2016 Instruction Type:Patient Education Patient Instructions Indication:Uncontrolled type 2 diabetes mellitus without complication, without long-term current use of insulin Start:09-Dec-2016 Instruction Type:Provider Instructions for Treatment DISCONTINUED - LIPID PANEL ( [id number]) Indication:Hypercholesteremia Start:13-Oct-2016 Instruction Type:Patient Education DISCONTINUED - Glucose, PP/2 Hour (30372) Indication:Family history of diabetes mellitus Start:13-Oct-2016 Instruction Type:Patient Education DISCONTINUED - Hemoglobin Glyclated (HGB A1C) (90380) Indication:Family history of diabetes mellitus Start:13-Oct-2016 Instruction Type:Patient Education How to access health [employer] Indication:Uncontrolled type 2 diabetes mellitus without complication, without long-term current use of insulin Start:13-Oct-2016 Instruction Type:Patient Education How to access health informa tion online - Detail Indication:Uncontrolled type 2 diabetes mellitus without complication, without long-term current use of insulin Start:13-Oct-2016 Instruction Type:Patient Education Patient Instructions Indication:Uncontrolled type 2 diabetes mellitus without complication, without long-term current use of insulin Start:13-Oct-2016 Instruction Type:Provider Instructions for Treatment Patient Instructions Indication:Nonsmoker Start:30-Sep-2016 Instruction Type:Provider Instructions for Treatment How to access health [employer] Indication:Uncontrolled type 2 diabetes mellitus without complication, without long-term current use of insulin Start:30-Sep-2016 Instruction Type:Patient Education How to access health informa tion online - Detail Indication:Uncontrolled type 2 diabetes mellitus without complication, without long-term current use of insulin Start:30-Sep-2016 Instruction Type:Patient Education Patient Instructions Indication:Hypothyroid Start:28-Aug-2013 Instruction Type:Provider Instructions for Treatment Patient Instructions Indication:Family history of diabetes mellitus Start:06-Mar-2013 Instruction Type:Provider Instructions for Treatment [facility] Work Phone: reason for referral (narrative)No reason for referral information availableW[facility] Work Phone: Summary Purpose Family History No Family History Records FoundUnknown Family Member Name Dates Details Breast Cancer Comments:Sisterx2 Status:Active Diabetes Mellitus Comments:Mother, Sister Status:Active Heart Disease Comments:Mother Status:Active Hypercholesterolemia Comments:Mother Status:Active Hypertension Comments:Mother Status:Active Unknown Family Member Name Dates Details Breast Cancer Comments:Sisterx2 Status:Active Diabetes Mellitus Comments:Mother, Sister Status:Active Heart Disease Comments:Mother Status:Active Hypercholesterolemia Comments:Mother Status:Active Hypertension Comments:Mother Status:Active Unknown Family Member Name Dates Details Breast Cancer Comments:Sisterx2 Status:Active Diabetes Mellitus Comments:Mother, Sister Status:Active Heart Disease Comments:Mother Status:Active Hypercholesterolemia Comments:Mother Status:Active Hypertension Comments:Mother Status:Active Unknown Family Member Name Dates Details Breast Cancer Comments:Sisterx2 Status:Active Diabetes Mellitus Comments:Mother, Sister Status:Active Heart Disease Comments:Mother Status:Active Hypercholesterolemia Comments:Mother Status:Active Hypertension Comments:Mother Status:Active Unknown Family Member Name Dates Details Breast Cancer Comments:Sisterx2 Status:Active Diabetes Mellitus Comments:Mother, Sister Status:Active Heart Disease Comments:Mother Status:Active Hypercholesterolemia Comments:Mother Status:Active Hypertension Comments:Mother Status:Active Unknown Family Member Name Dates Details Breast Cancer Comments:Sisterx2 Status:Active Diabetes Mellitus Comments:Mother, Sister Status:Active Heart Disease Comments:Mother Status:Active Hypercholesterolemia Comments:Mother Status:Active Hypertension Comments:Mother Status:Active Unknown Family Member Name Dates Details Breast Cancer Comments:Sisterx2 Status:Active Diabetes Mellitus Comments:Mother, Sister Status:Active Heart Disease Comments:Mother Status:Active Hypercholesterolemia Comments:Mother Status:Active Hypertension Comments:Mother Status:Active Unknown Family Member Name Dates Details Breast Cancer Comments:Sisterx2 Status:Active Diabetes Mellitus Comments:Mother, Sister Status:Active Heart Disease Comments:Mother Status:Active Hypercholesterolemia Comments:Mother Status:Active Hypertension Comments:Mother Status:Active Unknown Family Member Name Dates Details Breast Cancer Comments:Sisterx2 Status:Active Diabetes Mellitus Comments:Mother, Sister Status:Active Heart Disease Comments:Mother Status:Active Hypercholesterolemia Comments:Mother Status:Active Hypertension Comments:Mother Status:Active Unknown Family Member Name Dates Details Breast Cancer Comments:Sisterx2 Status:Active Diabetes Mellitus Comments:Mother, Sister Status:Active Heart Disease Comments:Mother Status:Active Hypercholesterolemia Comments:Mother Status:Active Hypertension Comments:Mother Status:Active Unknown Family Member Name Dates Details Breast Cancer Comments:Sisterx2 Status:Active Diabetes Mellitus Comments:Mother, Sister Status:Active Heart Disease Comments:Mother Status:Active Hypercholesterolemia Comments:Mother Status:Active Hypertension Comments:Mother Status:Active Unknown Family Member Name Dates Details Breast Cancer Comments:Sisterx2 Status:Active Diabetes Mellitus Comments:Mother, Sister Status:Active Heart Disease Comments:Mother Status:Active Hypercholesterolemia Comments:Mother Status:Active Hypertension Comments:Mother Status:Active Unknown Family Member Name Dates Details Breast Cancer Comments:Sisterx2 Status:Active Diabetes Mellitus Comments:Mother, Sister Status:Active Heart Disease Comments:Mother Status:Active Hypercholesterolemia Comments:Mother Status:Active Hypertension Comments:Mother Status:Active Unknown Family Member Name Dates Details Breast Cancer Comments:Sisterx2 Status:Active Diabetes Mellitus Comments:Mother, Sister Status:Active Heart Disease Comments:Mother Status:Active Hypercholesterolemia Comments:Mother Status:Active Hypertension Comments:Mother Status:Active Unknown Family Member Name Dates Details Breast Cancer Comments:Sisterx2 Status:Active Diabetes Mellitus Comments:Mother, Sister Status:Active Heart Disease Comments:Mother Status:Active Hypercholesterolemia Comments:Mother Status:Active Hypertension Comments:Mother Status:Active Unknown Family Member Name Dates Details Breast Cancer Comments:Sisterx2 Status:Active Diabetes Mellitus Comments:Mother, Sister Status:Active Heart Disease Comments:Mother Status:Active Hypercholesterolemia Comments:Mother Status:Active Hypertension Comments:Mother Status:Active Unknown Family Member Name Dates Details Breast Cancer Comments:Sisterx2 Status:Active Diabetes Mellitus Comments:Mother, Sister Status:Active Heart Disease Comments:Mother Status:Active Hypercholesterolemia Comments:Mother Status:Active Hypertension Comments:Mother Status:Active Unknown Family Member Name Dates Details Breast Cancer Comments:Sisterx2 Status:Active Diabetes Mellitus Comments:Mother, Sister Status:Active Heart Disease Comments:Mother Status:Active Hypercholesterolemia Comments:Mother Status:Active Hypertension Comments:Mother Status:Active Unknown Family Member Name Dates Details Breast Cancer Comments:Sisterx2 Status:Active Diabetes Mellitus Comments:Mother, Sister Status:Active Heart Disease Comments:Mother Status:Active Hypercholesterolemia Comments:Mother Status:Active Hypertension Comments:Mother Status:Active Unknown Family Member Name Dates Details Breast Cancer Comments:Sisterx2 Status:Active Diabetes Mellitus Comments:Mother, Sister Status:Active Heart Disease Comments:Mother Status:Active Hypercholesterolemia Comments:Mother Status:Active Hypertension Comments:Mother Status:Active Unknown Family Member Name Dates Details Breast Cancer Comments:Sisterx2 Status:Active Diabetes Mellitus Comments:Mother, Sister Status:Active Heart Disease Comments:Mother Status:Active Hypercholesterolemia Comments:Mother Status:Active Hypertension Comments:Mother Status:Active Unknown Family Member Name Dates Details Breast Cancer Comments:Sisterx2 Status:Active Diabetes Mellitus Comments:Mother, Sister Status:Active Heart Disease Comments:Mother Status:Active Hypercholesterolemia Comments:Mother Status:Active Hypertension Comments:Mother Status:Active Unknown Family Member Name Dates Details Breast Cancer Comments:Sisterx2 Status:Active Diabetes Mellitus Comments:Mother, Sister Status:Active Heart Disease Comments:Mother Status:Active Hypercholesterolemia Comments:Mother Status:Active Hypertension Comments:Mother Status:Active Unknown Family Member Name Dates Details Breast Cancer Comments:Sisterx2 Status:Active Diabetes Mellitus Comments:Mother, Sister Status:Active Heart Disease Comments:Mother Status:Active Hypercholesterolemia Comments:Mother Status:Active Hypertension Comments:Mother Status:Active Unknown Family Member Name Dates Details Breast Cancer Comments:Sisterx2 Status:Active Diabetes Mellitus Comments:Mother, Sister Status:Active Heart Disease Comments:Mother Status:Active Hypercholesterolemia Comments:Mother Status:Active Hypertension Comments:Mother Status:Active Unknown Family Member Name Dates Details Breast Cancer Comments:Sisterx2 Status:Active Diabetes Mellitus Comments:Mother, Sister Status:Active Heart Disease Comments:Mother Status:Active Hypercholesterolemia Comments:Mother Status:Active Hypertension Comments:Mother Status:Active Unknown Family Member Name Dates Details Breast Cancer Comments:Sisterx2 Status:Active Diabetes Mellitus Comments:Mother, Sister Status:Active Heart Disease Comments:Mother Status:Active Hypercholesterolemia Comments:Mother Status:Active Hypertension Comments:Mother Status:Active Unknown Family Member Name Dates Details Breast Cancer Comments:Sisterx2 Status:Active Diabetes Mellitus Comments:Mother, Sister Status:Active Heart Disease Comments:Mother Status:Active Hypercholesterolemia Comments:Mother Status:Active Hypertension Comments:Mother Status:Active Unknown Family Member Name Dates Details Breast Cancer Comments:Sisterx2 Status:Active Diabetes Mellitus Comments:Mother, Sister Status:Active Heart Disease Comments:Mother Status:Active Hypercholesterolemia Comments:Mother Status:Active Hypertension Comments:Mother Status:Active Unknown Family Member Name Dates Details Breast Cancer Comments:Sisterx2 Status:Active Diabetes Mellitus Comments:Mother, Sister Status:Active Heart Disease Comments:Mother Status:Active Hypercholesterolemia Comments:Mother Status:Active Hypertension Comments:Mother Status:Active Unknown Family Member Name Dates Details Breast Cancer Comments:Sisterx2 Status:Active Diabetes Mellitus Comments:Mother, Sister Status:Active Heart Disease Comments:Mother Status:Active Hypercholesterolemia Comments:Mother Status:Active Hypertension Comments:Mother Status:Active Unknown Family Member Name Dates Details Breast Cancer Comments:Sisterx2 Status:Active Diabetes Mellitus Comments:Mother, Sister Status:Active Heart Disease Comments:Mother Status:Active Hypercholesterolemia Comments:Mother Status:Active Hypertension Comments:Mother Status:Active Unknown Family Member Name Dates Details Breast Cancer Comments:Sisterx2 Status:Active Diabetes Mellitus Comments:Mother, Sister Status:Active Heart Disease Comments:Mother Status:Active Hypercholesterolemia Comments:Mother Status:Active Hypertension Comments:Mother Status:Active Unknown Family Member Name Dates Details Breast Cancer Comments:Sisterx2 Status:Active Diabetes Mellitus Comments:Mother, Sister Status:Active Heart Disease Comments:Mother Status:Active Hypercholesterolemia Comments:Mother Status:Active Hypertension Comments:Mother Status:Active Unknown Family Member Name Dates Details Breast Cancer Comments:Sisterx2 Status:Active Diabetes Mellitus Comments:Mother, Sister Status:Active Heart Disease Comments:Mother Status:Active Hypercholesterolemia Comments:Mother Status:Active Hypertension Comments:Mother Status:Active Unknown Family Member Name Dates Details Breast Cancer Comments:Sisterx2 Status:Active Diabetes Mellitus Comments:Mother, Sister Status:Active Heart Disease Comments:Mother Status:Active Hypercholesterolemia Comments:Mother Status:Active Hypertension Comments:Mother Status:Active Unknown Family Member Name Dates Details Breast Cancer Comments:Sisterx2 Status:Active Diabetes Mellitus Comments:Mother, Sister Status:Active Heart Disease Comments:Mother Status:Active Hypercholesterolemia Comments:Mother Status:Active Hypertension Comments:Mother Status:Active Unknown Family Member Name Dates Details Breast Cancer Comments:Sisterx2 Status:Active Diabetes Mellitus Comments:Mother, Sister Status:Active Heart Disease Comments:Mother Status:Active Hypercholesterolemia Comments:Mother Status:Active Hypertension Comments:Mother Status:Active Unknown Family Member Name Dates Details Breast Cancer Comments:Sisterx2 Status:Active Diabetes Mellitus Comments:Mother, Sister Status:Active Heart Disease Comments:Mother Status:Active Hypercholesterolemia Comments:Mother Status:Active Hypertension Comments:Mother Status:Active Unknown Family Member Name Dates Details Breast Cancer Comments:Sisterx2 Status:Active Diabetes Mellitus Comments:Mother, Sister Status:Active Heart Disease Comments:Mother Status:Active Hypercholesterolemia Comments:Mother Status:Active Hypertension Comments:Mother Status:Active Unknown Family Member Name Dates Details Breast Cancer Comments:Sisterx2 Status:Active Diabetes Mellitus Comments:Mother, Sister Status:Active Heart Disease Comments:Mother Status:Active Hypercholesterolemia Comments:Mother Status:Active Hypertension Comments:Mother Status:Active Unknown Family Member Name Dates Details Breast Cancer Comments:Sisterx2 Status:Active Diabetes Mellitus Comments:Mother, Sister Status:Active Heart Disease Comments:Mother Status:Active Hypercholesterolemia Comments:Mother Status:Active Hypertension Comments:Mother Status:Active Unknown Family Member Name Dates Details Breast Cancer Comments:Sisterx2 Status:Active Diabetes Mellitus Comments:Mother, Sister Status:Active Heart Disease Comments:Mother Status:Active Hypercholesterolemia Comments:Mother Status:Active Hypertension Comments:Mother Status:Active Unknown Family Member Name Dates Details Breast Cancer Comments:Sisterx2 Status:Active Diabetes Mellitus Comments:Mother, Sister Status:Active Heart Disease Comments:Mother Status:Active Hypercholesterolemia Comments:Mother Status:Active Hypertension Comments:Mother Status:Active Unknown Family Member Name Dates Details Breast Cancer Comments:Sisterx2 Status:Active Diabetes Mellitus Comments:Mother, Sister Status:Active Heart Disease Comments:Mother Status:Active Hypercholesterolemia Comments:Mother Status:Active Hypertension Comments:Mother Status:Active Unknown Family Member Name Dates Details Breast Cancer Comments:Sisterx2 Status:Active Diabetes Mellitus Comments:Mother, Sister Status:Active Heart Disease Comments:Mother Status:Active Hypercholesterolemia Comments:Mother Status:Active Hypertension Comments:Mother Status:Active Unknown Family Member Name Dates Details Breast Cancer Comments:Sisterx2 Status:Active Diabetes Mellitus Comments:Mother, Sister Status:Active Heart Disease Comments:Mother Status:Active Hypercholesterolemia Comments:Mother Status:Active Hypertension Comments:Mother Status:Active Unknown Family Member Name Dates Details Breast Cancer Comments:Sisterx2 Status:Active Diabetes Mellitus Comments:Mother, Sister Status:Active Heart Disease Comments:Mother Status:Active Hypercholesterolemia Comments:Mother Status:Active Hypertension Comments:Mother Status:Active Unknown Family Member Name Dates Details Breast Cancer Comments:Sisterx2 Status:Active Diabetes Mellitus Comments:Mother, Sister Status:Active Heart Disease Comments:Mother Status:Active Hypercholesterolemia Comments:Mother Status:Active Hypertension Comments:Mother Status:Active Unknown Family Member Name Dates Details Breast Cancer Comments:Sisterx2 Status:Active Diabetes Mellitus Comments:Mother, Sister Status:Active Heart Disease Comments:Mother Status:Active Hypercholesterolemia Comments:Mother Status:Active Hypertension Comments:Mother Status:Active Relationship Condition Age at Onset Recorded Date/T sis Not Specified Diabetes mellitus Unknown Coronary artery disease Unknown Cardiac disease Unknown Myocardial infarction Unknown Malignant neoplasm of breast Unknown Hypertension Unknown Disorder of thyroid Unknown Asthma Unknown Advance Directives No Advanced Directives Records Found Name Dates Details Immunization Registry [place] - Effective on 03/19/2021. Expiration date unspecified Effective:19-Mar-2021 Name Dates Details Immunization Registry [place] - Effective on 03/19/2021. Expiration date unspecified Effective:19-Mar-2021 Name Dates Details Immunization Registry [place] - Effective on 03/19/2021. Expiration date unspecified Effective:19-Mar-2021 Name Dates Details Immunization Registry [place] - Effective on 03/19/2021. Expiration date unspecified Effective:19-Mar-2021 Name Dates Details Immunization Registry [place] - Effective on 03/19/2021. Expiration date unspecified Effective:19-Mar-2021 Name Dates Details Immunization Registry [place] - Effective on 03/19/2021. Expiration date unspecified Effective:19-Mar-2021 Name Dates Details Immunization Registry [place] - Effective on 03/19/2021. Expiration date unspecified Effective:19-Mar-2021 Name Dates Details Immunization Registry [place] - Effective on 03/19/2021. Expiration date unspecified Effective:19-Mar-2021 Advance Directive Response Recorded Date/ Time Living Will No May 05, 2019 1 2:35am Power of [employer] No May 05, 2019 12:35am Name Dates Details Immunization Registry [place] - Effective on 03/19/2021. Expiration date unspecified Effective:19-Mar-2021 Name Dates Details Immunization Registry [place] - Effective on 03/19/2021. Expiration date unspecified Effective:19-Mar-2021 Name Dates Details Immunization Registry [place] - Effective on 03/19/2021. Expiration date unspecified Effective:19-Mar-2021 Name Dates Details Immunization Registry [place] - Effective on 03/19/2021. Expiration date unspecified Effective:19-Mar-2021 Name Dates Details Immunization Registry [place] - Effective on 03/19/2021. Expiration date unspecified Effective:19-Mar-2021 Name Dates Details Immunization Registry [place] - Effective on 03/19/2021. Expiration date unspecified Effective:19-Mar-2021 Name Dates Details Immunization Registry [place] - Effective on 03/19/2021. Expiration date unspecified Effective:19-Mar-2021 Name Dates Details Immunization Registry [place] - Effective on 03/19/2021. Expiration date unspecified Effective:19-Mar-2021 Name Dates Details Immunization Registry [place] - Effective on 03/19/2021. Expiration date unspecified Effective:19-Mar-2021 Name Dates Details Immunization Registry [place] - Effective on 03/19/2021. Expiration date unspecified Effective:19-Mar-2021 Name Dates Details Immunization Registry [place] - Effective on 03/19/2021. Expiration date unspecified Effective:19-Mar-2021 Name Dates Details Immunization Registry [place] - Effective on 03/19/2021. Expiration date unspecified Effective:19-Mar-2021 Name Dates Details Immunization Registry [place] - Effective on 03/19/2021. Expiration date unspecified Effective:19-Mar-2021 Advance Directive Response Recorded Date/ Time Do you have a Healthcare Power of [employer]? Yes May 31, 2025 10:43am Instructions Name Dates Details BMI 35.0-35.9,adult : How to access health information online Indication:BMI 35.0-35.9,adult BMI 35.0-35.9,adult : How to access health information online - Detail Indication:BMI 35.0-35.9,adult BMI 35.0-35.9,adult : Patien t Instructions Indication:BMI 35.0-35.9,adult Nonsmoker : How to access he alth information online Indication:Nonsmoker Nonsmoker : How to access he alth information online - Detail Indication:Nonsmoker Elevated liver enzymes : Pat ient Instructions Indication:Elevated liver enzymes Diabetes mellitus type II, c ontrolled, with no complications (Renamed from Controlled type 2 diabetes mellitus without complication) : How to access health information online Indication:Diabetes mellitus type II, controlled, with no complications (Renamed from Controlled type 2 diabetes mellitus without complication) Diabetes mellitus type II, c ontrolled, with no complications (Renamed from Controlled type 2 diabetes mellitus without complication) : How to access health information online - Detail Indication:Diabetes mellitus type II, controlled, with no complications (Renamed from Controlled type 2 diabetes mellitus without complication) Diabetes mellitus type II, c ontrolled, with no complications (Renamed from Controlled type 2 diabetes mellitus without complication) : Patient Instructions Indication:Diabetes mellitus type II, controlled, with no complications (Renamed from Controlled type 2 diabetes mellitus without complication) Sinusitis, bacterial : Chance nt Instructions Indication:Sinusitis, bacterial Uncontrolled type 2 diabetes mellitus without complication, without long-term current use of insulin : How to access health information online Indication:Uncontrolled type 2 diabetes mellitus without complication, without long-term current use of insulin Uncontrolled type 2 diabetes mellitus without complication, without long-term current use of insulin : How to access health information online - Detail Indication:Uncontrolled type 2 diabetes mellitus without complication, without long-term current use of insulin Uncontrolled type 2 diabetes mellitus without complication, without long-term current use of insulin : Patient Instructions Indication:Uncontrolled type 2 diabetes mellitus without complication, without long-term current use of insulin Nonsmoker : Patient Instruct ions Indication:Nonsmoker Hypercholesteremia : DISCONT INUED - LIPID PANEL (10897) Indication:Hypercholesteremia Family history of diabetes m claudine : DISCONTINUED - Glucose, PP/2 Hour (07034) Indication:Family history of diabetes mellitus Family history of diabetes m ellitus : DISCONTINUED - Hemoglobin Glyclated (HGB A1C) ([id number]) Indication:Family history of diabetes mellitus Hypothyroid : Patient Instru ctions Indication:Hypothyroid Family history of diabetes m ellitus : Patient Instructions Indication:Family history of diabetes mellitus Name Dates Details Nonsmoker : How to access he alth information online Indication:Nonsmoker Nonsmoker : How to access he alth information online - Detail Indication:Nonsmoker Atypical lobular hyperplasia of right breast : Patient Instructions Indication:Atypical lobular hyperplasia of right breast BMI 35.0-35.9,adult : How to access health information online Indication:BMI 35.0-35.9,adult BMI 35.0-35.9,adult : How to access health information online - Detail Indication:BMI 35.0-35.9,adult BMI 35.0-35.9,adult : Patien t Instructions Indication:BMI 35.0-35.9,adult Elevated liver enzymes : Pat ient Instructions Indication:Elevated liver enzymes Diabetes mellitus type II, c ontrolled, with no complications (Renamed from Controlled type 2 diabetes mellitus without complication) : How to access health information online Indication:Diabetes mellitus type II, controlled, with no complications (Renamed from Controlled type 2 diabetes mellitus without complication) Diabetes mellitus type II, c ontrolled, with no complications (Renamed from Controlled type 2 diabetes mellitus without complication) : How to access health information online - Detail Indication:Diabetes mellitus type II, controlled, with no complications (Renamed from Controlled type 2 diabetes mellitus without complication) Diabetes mellitus type II, c ontrolled, with no complications (Renamed from Controlled type 2 diabetes mellitus without complication) : Patient Instructions Indication:Diabetes mellitus type II, controlled, with no complications (Renamed from Controlled type 2 diabetes mellitus without complication) Sinusitis, bacterial : Patie nt Instructions Indication:Sinusitis, bacterial Uncontrolled type 2 diabetes mellitus without complication, without long-term current use of insulin : How to access health information online Indication:Uncontrolled type 2 diabetes mellitus without complication, without long-term current use of insulin Uncontrolled type 2 diabetes mellitus without complication, without long-term current use of insulin : How to access health information online - Detail Indication:Uncontrolled type 2 diabetes mellitus without complication, without long-term current use of insulin Uncontrolled type 2 diabetes mellitus without complication, without long-term current use of insulin : Patient Instructions Indication:Uncontrolled type 2 diabetes mellitus without complication, without long-term current use of insulin Nonsmoker : Patient Instruct ions Indication:Nonsmoker Hypercholesteremia : DISCONT INUED - LIPID PANEL (54070) Indication:Hypercholesteremia Family history of diabetes m ellitus : DISCONTINUED - Glucose, PP/2 Hour (57512) Indication:Family history of diabetes mellitus Family history of diabetes m ellitus : DISCONTINUED - Hemoglobin Glyclated (HGB A1C) ([id number]) Indication:Family history of diabetes mellitus Hypothyroid : Patient Instru ctions Indication:Hypothyroid Family history of diabetes m ellitus : Patient Instructions Indication:Family history of diabetes mellitus Name Dates Details Diabetes mellitus type II, c ontrolled, with no complications (Renamed from Controlled type 2 diabetes mellitus without complication) : How to access health information online Indication:Diabetes mellitus type II, controlled, with no complications (Renamed from Controlled type 2 diabetes mellitus without complication) Diabetes mellitus type II, c ontrolled, with no complications (Renamed from Controlled type 2 diabetes mellitus without complication) : How to access health information online - Detail Indication:Diabetes mellitus type II, controlled, with no complications (Renamed from Controlled type 2 diabetes mellitus without complication) Hypothyroid : Patient Instru ctions Indication:Hypothyroid Nonsmoker : How to access he alth information online Indication:Nonsmoker Nonsmoker : How to access he alth information online - Detail Indication:Nonsmoker Atypical lobular hyperplasia of right breast : Patient Instructions Indication:Atypical lobular hyperplasia of right breast BMI 35.0-35.9,adult : How to access health information online Indication:BMI 35.0-35.9,adult BMI 35.0-35.9,adult : How to access health information online - Detail Indication:BMI 35.0-35.9,adult BMI 35.0-35.9,adult : Patien t Instructions Indication:BMI 35.0-35.9,adult Elevated liver enzymes : Pat ient Instructions Indication:Elevated liver enzymes Diabetes mellitus type II, c ontrolled, with no complications (Renamed from Controlled type 2 diabetes mellitus without complication) : Patient Instructions Indication:Diabetes mellitus type II, controlled, with no complications (Renamed from Controlled type 2 diabetes mellitus without complication) Sinusitis, bacterial : Patie nt Instructions Indication:Sinusitis, bacterial Uncontrolled type 2 diabetes mellitus without complication, without long-term current use of insulin : How to access health information online Indication:Uncontrolled type 2 diabetes mellitus without complication, without long-term current use of insulin Uncontrolled type 2 diabetes mellitus without complication, without long-term current use of insulin : How to access health information online - Detail Indication:Uncontrolled type 2 diabetes mellitus without complication, without long-term current use of insulin Uncontrolled type 2 diabetes mellitus without complication, without long-term current use of insulin : Patient Instructions Indication:Uncontrolled type 2 diabetes mellitus without complication, without long-term current use of insulin Nonsmoker : Patient Instruct ions Indication:Nonsmoker Hypercholesteremia : DISCONT INUED - LIPID PANEL ([id number]) Indication:Hypercholesteremia Family history of diabetes m ellitus : DISCONTINUED - Glucose, PP/2 Hour ([id number]) Indication:Family history of diabetes mellitus Family history of diabetes m ellitus : DISCONTINUED - Hemoglobin Glyclated (HGB A1C) (06912) Indication:Family history of diabetes mellitus Family history of diabetes m ellitus : Patient Instructions Indication:Family history of diabetes mellitus Name Dates Details Diabetes mellitus type II, c ontrolled, with no complications (Renamed from Controlled type 2 diabetes mellitus without complication) : How to access health information online Indication:Diabetes mellitus type II, controlled, with no complications (Renamed from Controlled type 2 diabetes mellitus without complication) Diabetes mellitus type II, c ontrolled, with no complications (Renamed from Controlled type 2 diabetes mellitus without complication) : How to access health information online - Detail Indication:Diabetes mellitus type II, controlled, with no complications (Renamed from Controlled type 2 diabetes mellitus without complication) Diabetes mellitus type II, c ontrolled, with no complications (Renamed from Controlled type 2 diabetes mellitus without complication) : Patient Instructions Indication:Diabetes mellitus type II, controlled, with no complications (Renamed from Controlled type 2 diabetes mellitus without complication) Hypothyroid : Patient Instru ctions Indication:Hypothyroid Nonsmoker : How to access he alth information online Indication:Nonsmoker Nonsmoker : How to access he alth information online - Detail Indication:Nonsmoker Atypical lobular hyperplasia of right breast : Patient Instructions Indication:Atypical lobular hyperplasia of right breast BMI 35.0-35.9,adult : How to access health information online Indication:BMI 35.0-35.9,adult BMI 35.0-35.9,adult : How to access health information online - Detail Indication:BMI 35.0-35.9,adult BMI 35.0-35.9,adult : Emilee t Instructions Indication:BMI 35.0-35.9,adult Elevated liver enzymes : Pat ient Instructions Indication:Elevated liver enzymes Sinusitis, bacterial : Chance nt Instructions Indication:Sinusitis, bacterial Uncontrolled type 2 diabetes mellitus without complication, without long-term current use of insulin : How to access health information online Indication:Uncontrolled type 2 diabetes mellitus without complication, without long-term current use of insulin Uncontrolled type 2 diabetes mellitus without complication, without long-term current use of insulin : How to access health information online - Detail Indication:Uncontrolled type 2 diabetes mellitus without complication, without long-term current use of insulin Uncontrolled type 2 diabetes mellitus without complication, without long-term current use of insulin : Patient Instructions Indication:Uncontrolled type 2 diabetes mellitus without complication, without long-term current use of insulin Nonsmoker : Patient Instruct ions Indication:Nonsmoker Hypercholesteremia : DISCONT INUED - LIPID PANEL ([id number]) Indication:Hypercholesteremia Family history of diabetes m ellitus : DISCONTINUED - Glucose, PP/2 Hour (11135) Indication:Family history of diabetes mellitus Family history of diabetes m ellitus : DISCONTINUED - Hemoglobin Glyclated (HGB A1C) ([id number]) Indication:Family history of diabetes mellitus Family history of diabetes m ellitus : Patient Instructions Indication:Family history of diabetes mellitus Name Dates Details Diabetes mellitus type 2, un controlled (Renamed from Uncontrolled type 2 diabetes mellitus) : How to access health information online Indication:Diabetes mellitus type 2, uncontrolled (Renamed from Uncontrolled type 2 diabetes mellitus) Diabetes mellitus type 2, un controlled (Renamed from Uncontrolled type 2 diabetes mellitus) : How to access health information online - Detail Indication:Diabetes mellitus type 2, uncontrolled (Renamed from Uncontrolled type 2 diabetes mellitus) BMI 35.0-35.9,adult : Emilee t Instructions Indication:BMI 35.0-35.9,adult Diabetes mellitus type II, c ontrolled, with no complications (Renamed from Controlled type 2 diabetes mellitus without complication) : How to access health information online Indication:Diabetes mellitus type II, controlled, with no complications (Renamed from Controlled type 2 diabetes mellitus without complication) Diabetes mellitus type II, c ontrolled, with no complications (Renamed from Controlled type 2 diabetes mellitus without complication) : How to access health information online - Detail Indication:Diabetes mellitus type II, controlled, with no complications (Renamed from Controlled type 2 diabetes mellitus without complication) Hypothyroid : Patient Instru ctions Indication:Hypothyroid Nonsmoker : How to access he alth information online Indication:Nonsmoker Nonsmoker : How to access he alth information online - Detail Indication:Nonsmoker Atypical lobular hyperplasia of right breast : Patient Instructions Indication:Atypical lobular hyperplasia of right breast BMI 35.0-35.9,adult : How to access health information online Indication:BMI 35.0-35.9,adult BMI 35.0-35.9,adult : How to access health information online - Detail Indication:BMI 35.0-35.9,adult Elevated liver enzymes : Pat ient Instructions Indication:Elevated liver enzymes Diabetes mellitus type II, c ontrolled, with no complications (Renamed from Controlled type 2 diabetes mellitus without complication) : Patient Instructions Indication:Diabetes mellitus type II, controlled, with no complications (Renamed from Controlled type 2 diabetes mellitus without complication) Sinusitis, bacterial : Patie nt Instructions Indication:Sinusitis, bacterial Uncontrolled type 2 diabetes mellitus without complication, without long-term current use of insulin : How to access health information online Indication:Uncontrolled type 2 diabetes mellitus without complication, without long-term current use of insulin Uncontrolled type 2 diabetes mellitus without complication, without long-term current use of insulin : How to access health information online - Detail Indication:Uncontrolled type 2 diabetes mellitus without complication, without long-term current use of insulin Uncontrolled type 2 diabetes mellitus without complication, without long-term current use of insulin : Patient Instructions Indication:Uncontrolled type 2 diabetes mellitus without complication, without long-term current use of insulin Nonsmoker : Patient Instruct ions Indication:Nonsmoker Hypercholesteremia : DISCONT INUED - LIPID PANEL (84230) Indication:Hypercholesteremia Family history of diabetes m ellitus : DISCONTINUED - Glucose, PP/2 Hour (09403) Indication:Family history of diabetes mellitus Family history of diabetes m ellitus : DISCONTINUED - Hemoglobin Glyclated (HGB A1C) (53457) Indication:Family history of diabetes mellitus Family history of diabetes m ellitus : Patient Instructions Indication:Family history of diabetes mellitus Name Dates Details Diabetes mellitus type 2, un controlled (Renamed from Uncontrolled type 2 diabetes mellitus) : How to access health information online Indication:Diabetes mellitus type 2, uncontrolled (Renamed from Uncontrolled type 2 diabetes mellitus) Diabetes mellitus type 2, un controlled (Renamed from Uncontrolled type 2 diabetes mellitus) : How to access health information online - Detail Indication:Diabetes mellitus type 2, uncontrolled (Renamed from Uncontrolled type 2 diabetes mellitus) BMI 35.0-35.9,adult : Emilee t Instructions Indication:BMI 35.0-35.9,adult Diabetes mellitus type II, c ontrolled, with no complications (Renamed from Controlled type 2 diabetes mellitus without complication) : How to access health information online Indication:Diabetes mellitus type II, controlled, with no complications (Renamed from Controlled type 2 diabetes mellitus without complication) Diabetes mellitus type II, c ontrolled, with no complications (Renamed from Controlled type 2 diabetes mellitus without complication) : How to access health information online - Detail Indication:Diabetes mellitus type II, controlled, with no complications (Renamed from Controlled type 2 diabetes mellitus without complication) Hypothyroid : Patient Instru ctions Indication:Hypothyroid Nonsmoker : How to access he alth information online Indication:Nonsmoker Nonsmoker : How to access he alth information online - Detail Indication:Nonsmoker Atypical lobular hyperplasia of right breast : Patient Instructions Indication:Atypical lobular hyperplasia of right breast BMI 35.0-35.9,adult : How to access health information online Indication:BMI 35.0-35.9,adult BMI 35.0-35.9,adult : How to access health information online - Detail Indication:BMI 35.0-35.9,adult Elevated liver enzymes : Pat ient Instructions Indication:Elevated liver enzymes Diabetes mellitus type II, c ontrolled, with no complications (Renamed from Controlled type 2 diabetes mellitus without complication) : Patient Instructions Indication:Diabetes mellitus type II, controlled, with no complications (Renamed from Controlled type 2 diabetes mellitus without complication) Sinusitis, bacterial : Chance nt Instructions Indication:Sinusitis, bacterial Uncontrolled type 2 diabetes mellitus without complication, without long-term current use of insulin : How to access health information online Indication:Uncontrolled type 2 diabetes mellitus without complication, without long-term current use of insulin Uncontrolled type 2 diabetes mellitus without complication, without long-term current use of insulin : How to access health information online - Detail Indication:Uncontrolled type 2 diabetes mellitus without complication, without long-term current use of insulin Uncontrolled type 2 diabetes mellitus without complication, without long-term current use of insulin : Patient Instructions Indication:Uncontrolled type 2 diabetes mellitus without complication, without long-term current use of insulin Nonsmoker : Patient Instruct ions Indication:Nonsmoker Hypercholesteremia : DISCONT INUED - LIPID PANEL ([id number]) Indication:Hypercholesteremia Family history of diabetes m ellitus : DISCONTINUED - Glucose, PP/2 Hour (74006) Indication:Family history of diabetes mellitus Family history of diabetes m ellitus : DISCONTINUED - Hemoglobin Glyclated (HGB A1C) (40694) Indication:Family history of diabetes mellitus Family history of diabetes m ellitus : Patient Instructions Indication:Family history of diabetes mellitus Name Dates Details How to access health informa tion online Indication:Nonsmoker Start:03-Apr-2019 Instruction Type:Patient Education How to access health informa tion online - Detail Indication:Nonsmoker Start:03-Apr-2019 Instruction Type:Patient Education Patient Instructions Indication:Nonsmoker Start:03-Apr-2019 Instruction Type:Provider Instructions for Treatment How to access health informa tion online Indication:Diabetes mellitus type 2, uncontrolled (Renamed from Uncontrolled type 2 diabetes mellitus) Start:13-Mar-2019 Instruction Type:Patient Education How to access health informa tion online - Detail Indication:Diabetes mellitus type 2, uncontrolled (Renamed from Uncontrolled type 2 diabetes mellitus) Start:13-Mar-2019 Instruction Type:Patient Education Patient Instructions Indication:BMI 35.0-35.9,adult Start:13-Mar-2019 Instruction Type:Provider Instructions for Treatment How to access health informa tion online Indication:Diabetes mellitus type II, controlled, with no complications (Renamed from Controlled type 2 diabetes mellitus without complication) Start:19-Jan-2019 Instruction Type:Patient Education How to access health informa tion online - Detail Indication:Diabetes mellitus type II, controlled, with no complications (Renamed from Controlled type 2 diabetes mellitus without complication) Start:19-Jan-2019 Instruction Type:Patient Education Patient Instructions Indication:Hypothyroid Start:19-Jan-2019 Instruction Type:Provider Instructions for Treatment How to access health informa tion online Indication:Nonsmoker Start:05-Oct-2018 Instruction Type:Patient Education How to access health informa tion online - Detail Indication:Nonsmoker Start:05-Oct-2018 Instruction Type:Patient Education Patient Instructions Indication:Atypical lobular hyperplasia of right breast Start:05-Oct-2018 Instruction Type:Provider Instructions for Treatment How to access health informa tion online Indication:BMI 35.0-35.9,adult Start:16-Sep-2018 Instruction Type:Patient Education How to access health informa tion online - Detail Indication:BMI 35.0-35.9,adult Start:16-Sep-2018 Instruction Type:Patient Education Patient Instructions Indication:BMI 35.0-35.9,adult Start:16-Sep-2018 Instruction Type:Provider Instructions for Treatment How to access health informa tion online Indication:Nonsmoker Start:27-Jun-2018 Instruction Type:Patient Education How to access health informa tion online - Detail Indication:Nonsmoker Start:27-Jun-2018 Instruction Type:Patient Education Patient Instructions Indication:Elevated liver enzymes Start:27-Jun-2018 Instruction Type:Provider Instructions for Treatment How to access health informa tion online Indication:Diabetes mellitus type II, controlled, with no complications (Renamed from Controlled type 2 diabetes mellitus without complication) Start:14-Jun-2018 Instruction Type:Patient Education How to access health informa tion online - Detail Indication:Diabetes mellitus type II, controlled, with no complications (Renamed from Controlled type 2 diabetes mellitus without complication) Start:14-Jun-2018 Instruction Type:Patient Education Patient Instructions Indication:Diabetes mellitus type II, controlled, with no complications (Renamed from Controlled type 2 diabetes mellitus without complication) Start:14-Jun-2018 Instruction Type:Provider Instructions for Treatment How to access health informa tion online Indication:Diabetes mellitus type II, controlled, with no complications (Renamed from Controlled type 2 diabetes mellitus without complication) Start:15-Mar-2018 Instruction Type:Patient Education How to access health informa tion online - Detail Indication:Diabetes mellitus type II, controlled, with no complications (Renamed from Controlled type 2 diabetes mellitus without complication) Start:15-Mar-2018 Instruction Type:Patient Education Patient Instructions Indication:Diabetes mellitus type II, controlled, with no complications (Renamed from Controlled type 2 diabetes mellitus without complication) Start:15-Mar-2018 Instruction Type:Provider Instructions for Treatment How to access health informa tion online Indication:Diabetes mellitus type II, controlled, with no complications (Renamed from Controlled type 2 diabetes mellitus without complication) Start:06-Dec-2017 Instruction Type:Patient Education How to access health informa tion online - Detail Indication:Diabetes mellitus type II, controlled, with no complications (Renamed from Controlled type 2 diabetes mellitus without complication) Start:06-Dec-2017 Instruction Type:Patient Education Patient Instructions Indication:Diabetes mellitus type II, controlled, with no complications (Renamed from Controlled type 2 diabetes mellitus without complication) Start:06-Dec-2017 Instruction Type:Provider Instructions for Treatment How to access health informa tion online Indication:Nonsmoker Start:30-Nov-2017 Instruction Type:Patient Education How to access health informa tion online - Detail Indication:Nonsmoker Start:30-Nov-2017 Instruction Type:Patient Education Patient Instructions Indication:Sinusitis, bacterial Start:30-Nov-2017 Instruction Type:Provider Instructions for Treatment How to access health informa tion online Indication:Diabetes mellitus type II, controlled, with no complications (Renamed from Controlled type 2 diabetes mellitus without complication) Start:10-Aug-2017 Instruction Type:Patient Education How to access health informa tion online - Detail Indication:Diabetes mellitus type II, controlled, with no complications (Renamed from Controlled type 2 diabetes mellitus without complication) Start:10-Aug-2017 Instruction Type:Patient Education Patient Instructions Indication:Diabetes mellitus type II, controlled, with no complications (Renamed from Controlled type 2 diabetes mellitus without complication) Start:10-Aug-2017 Instruction Type:Provider Instructions for Treatment How to access health informa tion online Indication:Uncontrolled type 2 diabetes mellitus without complication, without long-term current use of insulin Start:07-May-2017 Instruction Type:Patient Education How to access health informa tion online - Detail Indication:Uncontrolled type 2 diabetes mellitus without complication, without long-term current use of insulin Start:07-May-2017 Instruction Type:Patient Education Patient Instructions Indication:Uncontrolled type 2 diabetes mellitus without complication, without long-term current use of insulin Start:07-May-2017 Instruction Type:Provider Instructions for Treatment Patient Instructions Indication:Nonsmoker Start:09-Feb-2017 Instruction Type:Provider Instructions for Treatment How to access health informa tion online Indication:Uncontrolled type 2 diabetes mellitus without complication, without long-term current use of insulin Start:09-Dec-2016 Instruction Type:Patient Education How to access health informa tion online - Detail Indication:Uncontrolled type 2 diabetes mellitus without complication, without long-term current use of insulin Start:09-Dec-2016 Instruction Type:Patient Education Patient Instructions Indication:Uncontrolled type 2 diabetes mellitus without complication, without long-term current use of insulin Start:09-Dec-2016 Instruction Type:Provider Instructions for Treatment DISCONTINUED - LIPID PANEL ( [id number]) Indication:Hypercholesteremia Start:13-Oct-2016 Instruction Type:Patient Education DISCONTINUED - Glucose, PP/2 Hour (99199) Indication:Family history of diabetes mellitus Start:13-Oct-2016 Instruction Type:Patient Education DISCONTINUED - Hemoglobin Glyclated (HGB A1C) ([id number]) Indication:Family history of diabetes mellitus Start:13-Oct-2016 Instruction Type:Patient Education How to access health informa [employer] online Indication:Uncontrolled type 2 diabetes mellitus without complication, without long-term current use of insulin Start:13-Oct-2016 Instruction Type:Patient Education How to access health informa [employer] online - Detail Indication:Uncontrolled type 2 diabetes mellitus without complication, without long-term current use of insulin Start:13-Oct-2016 Instruction Type:Patient Education Patient Instructions Indication:Uncontrolled type 2 diabetes mellitus without complication, without long-term current use of insulin Start:13-Oct-2016 Instruction Type:Provider Instructions for Treatment Patient Instructions Indication:Nonsmoker Start:30-Sep-2016 Instruction Type:Provider Instructions for Treatment How to access health informa [employer] Indication:Uncontrolled type 2 diabetes mellitus without complication, without long-term current use of insulin Start:30-Sep-2016 Instruction Type:Patient Education How to access health informa [employer] online - Detail Indication:Uncontrolled type 2 diabetes mellitus without complication, without long-term current use of insulin Start:30-Sep-2016 Instruction Type:Patient Education Patient Instructions Indication:Hypothyroid Start:28-Aug-2013 Instruction Type:Provider Instructions for Treatment Patient Instructions Indication:Family history of diabetes mellitus Start:06-Mar-2013 Instruction Type:Provider Instructions for Treatment Name Dates Details How to access health [employer] Indication:Nonsmoker Start:03-Apr-2019 Instruction Type:Patient Education How to access health informa [employer] online - Detail Indication:Nonsmoker Start:03-Apr-2019 Instruction Type:Patient Education Patient Instructions Indication:Nonsmoker Start:03-Apr-2019 Instruction Type:Provider Instructions for Treatment How to access health [employer] Indication:Diabetes mellitus type 2, uncontrolled (Renamed from Uncontrolled type 2 diabetes mellitus) Start:13-Mar-2019 Instruction Type:Patient Education How to access health informa tion online - Detail Indication:Diabetes mellitus type 2, uncontrolled (Renamed from Uncontrolled type 2 diabetes mellitus) Start:13-Mar-2019 Instruction Type:Patient Education Patient Instructions Indication:BMI 35.0-35.9,adult Start:13-Mar-2019 Instruction Type:Provider Instructions for Treatment How to access health informa tion online Indication:Diabetes mellitus type II, controlled, with no complications (Renamed from Controlled type 2 diabetes mellitus without complication) Start:19-Jan-2019 Instruction Type:Patient Education How to access health informa tion online - Detail Indication:Diabetes mellitus type II, controlled, with no complications (Renamed from Controlled type 2 diabetes mellitus without complication) Start:19-Jan-2019 Instruction Type:Patient Education Patient Instructions Indication:Hypothyroid Start:19-Jan-2019 Instruction Type:Provider Instructions for Treatment How to access health informa tion online Indication:Nonsmoker Start:05-Oct-2018 Instruction Type:Patient Education How to access health informa tion online - Detail Indication:Nonsmoker Start:05-Oct-2018 Instruction Type:Patient Education Patient Instructions Indication:Atypical lobular hyperplasia of right breast Start:05-Oct-2018 Instruction Type:Provider Instructions for Treatment How to access health informa tion online Indication:BMI 35.0-35.9,adult Start:16-Sep-2018 Instruction Type:Patient Education How to access health informa tion online - Detail Indication:BMI 35.0-35.9,adult Start:16-Sep-2018 Instruction Type:Patient Education Patient Instructions Indication:BMI 35.0-35.9,adult Start:16-Sep-2018 Instruction Type:Provider Instructions for Treatment How to access health informa tion online Indication:Nonsmoker Start:27-Jun-2018 Instruction Type:Patient Education How to access health informa tion online - Detail Indication:Nonsmoker Start:27-Jun-2018 Instruction Type:Patient Education Patient Instructions Indication:Elevated liver enzymes Start:27-Jun-2018 Instruction Type:Provider Instructions for Treatment How to access health informa tion online Indication:Diabetes mellitus type II, controlled, with no complications (Renamed from Controlled type 2 diabetes mellitus without complication) Start:14-Jun-2018 Instruction Type:Patient Education How to access health informa tion online - Detail Indication:Diabetes mellitus type II, controlled, with no complications (Renamed from Controlled type 2 diabetes mellitus without complication) Start:14-Jun-2018 Instruction Type:Patient Education Patient Instructions Indication:Diabetes mellitus type II, controlled, with no complications (Renamed from Controlled type 2 diabetes mellitus without complication) Start:14-Jun-2018 Instruction Type:Provider Instructions for Treatment How to access health informa tion online Indication:Diabetes mellitus type II, controlled, with no complications (Renamed from Controlled type 2 diabetes mellitus without complication) Start:15-Mar-2018 Instruction Type:Patient Education How to access health informa tion online - Detail Indication:Diabetes mellitus type II, controlled, with no complications (Renamed from Controlled type 2 diabetes mellitus without complication) Start:15-Mar-2018 Instruction Type:Patient Education Patient Instructions Indication:Diabetes mellitus type II, controlled, with no complications (Renamed from Controlled type 2 diabetes mellitus without complication) Start:15-Mar-2018 Instruction Type:Provider Instructions for Treatment How to access health informa tion online Indication:Diabetes mellitus type II, controlled, with no complications (Renamed from Controlled type 2 diabetes mellitus without complication) Start:06-Dec-2017 Instruction Type:Patient Education How to access health informa tion online - Detail Indication:Diabetes mellitus type II, controlled, with no complications (Renamed from Controlled type 2 diabetes mellitus without complication) Start:06-Dec-2017 Instruction Type:Patient Education Patient Instructions Indication:Diabetes mellitus type II, controlled, with no complications (Renamed from Controlled type 2 diabetes mellitus without complication) Start:06-Dec-2017 Instruction Type:Provider Instructions for Treatment How to access health informa tion online Indication:Nonsmoker Start:30-Nov-2017 Instruction Type:Patient Education How to access health informa tion online - Detail Indication:Nonsmoker Start:30-Nov-2017 Instruction Type:Patient Education Patient Instructions Indication:Sinusitis, bacterial Start:30-Nov-2017 Instruction Type:Provider Instructions for Treatment How to access health informa tion online Indication:Diabetes mellitus type II, controlled, with no complications (Renamed from Controlled type 2 diabetes mellitus without complication) Start:10-Aug-2017 Instruction Type:Patient Education How to access health informa tion online - Detail Indication:Diabetes mellitus type II, controlled, with no complications (Renamed from Controlled type 2 diabetes mellitus without complication) Start:10-Aug-2017 Instruction Type:Patient Education Patient Instructions Indication:Diabetes mellitus type II, controlled, with no complications (Renamed from Controlled type 2 diabetes mellitus without complication) Start:10-Aug-2017 Instruction Type:Provider Instructions for Treatment How to access health informa tion online Indication:Uncontrolled type 2 diabetes mellitus without complication, without long-term current use of insulin Start:07-May-2017 Instruction Type:Patient Education How to access health informa tion online - Detail Indication:Uncontrolled type 2 diabetes mellitus without complication, without long-term current use of insulin Start:07-May-2017 Instruction Type:Patient Education Patient Instructions Indication:Uncontrolled type 2 diabetes mellitus without complication, without long-term current use of insulin Start:07-May-2017 Instruction Type:Provider Instructions for Treatment Patient Instructions Indication:Nonsmoker Start:09-Feb-2017 Instruction Type:Provider Instructions for Treatment How to access health informa tion online Indication:Uncontrolled type 2 diabetes mellitus without complication, without long-term current use of insulin Start:09-Dec-2016 Instruction Type:Patient Education How to access health informa tion online - Detail Indication:Uncontrolled type 2 diabetes mellitus without complication, without long-term current use of insulin Start:09-Dec-2016 Instruction Type:Patient Education Patient Instructions Indication:Uncontrolled type 2 diabetes mellitus without complication, without long-term current use of insulin Start:09-Dec-2016 Instruction Type:Provider Instructions for Treatment DISCONTINUED - LIPID PANEL ( [id number]) Indication:Hypercholesteremia Start:13-Oct-2016 Instruction Type:Patient Education DISCONTINUED - Glucose, PP/2 Hour (99305) Indication:Family history of diabetes mellitus Start:13-Oct-2016 Instruction Type:Patient Education DISCONTINUED - Hemoglobin Glyclated (HGB A1C) (69840) Indication:Family history of diabetes mellitus Start:13-Oct-2016 Instruction Type:Patient Education How to access health informa [employer] online Indication:Uncontrolled type 2 diabetes mellitus without complication, without long-term current use of insulin Start:13-Oct-2016 Instruction Type:Patient Education How to access health informa tion online - Detail Indication:Uncontrolled type 2 diabetes mellitus without complication, without long-term current use of insulin Start:13-Oct-2016 Instruction Type:Patient Education Patient Instructions Indication:Uncontrolled type 2 diabetes mellitus without complication, without long-term current use of insulin Start:13-Oct-2016 Instruction Type:Provider Instructions for Treatment Patient Instructions Indication:Nonsmoker Start:30-Sep-2016 Instruction Type:Provider Instructions for Treatment How to access health informa tion online Indication:Uncontrolled type 2 diabetes mellitus without complication, without long-term current use of insulin Start:30-Sep-2016 Instruction Type:Patient Education How to access health informa tion online - Detail Indication:Uncontrolled type 2 diabetes mellitus without complication, without long-term current use of insulin Start:30-Sep-2016 Instruction Type:Patient Education Patient Instructions Indication:Hypothyroid Start:28-Aug-2013 Instruction Type:Provider Instructions for Treatment Patient Instructions Indication:Family history of diabetes mellitus Start:06-Mar-2013 Instruction Type:Provider Instructions for Treatment Name Dates Details How to access health informa tion online Indication:Nonsmoker Start:03-Apr-2019 Instruction Type:Patient Education How to access health informa tion online - Detail Indication:Nonsmoker Start:03-Apr-2019 Instruction Type:Patient Education Patient Instructions Indication:Nonsmoker Start:03-Apr-2019 Instruction Type:Provider Instructions for Treatment How to access health informa tion online Indication:Diabetes mellitus type 2, uncontrolled (Renamed from Uncontrolled type 2 diabetes mellitus) Start:13-Mar-2019 Instruction Type:Patient Education How to access health informa tion online - Detail Indication:Diabetes mellitus type 2, uncontrolled (Renamed from Uncontrolled type 2 diabetes mellitus) Start:13-Mar-2019 Instruction Type:Patient Education Patient Instructions Indication:BMI 35.0-35.9,adult Start:13-Mar-2019 Instruction Type:Provider Instructions for Treatment How to access health informa tion online Indication:Diabetes mellitus type II, controlled, with no complications (Renamed from Controlled type 2 diabetes mellitus without complication) Start:19-Jan-2019 Instruction Type:Patient Education How to access health informa tion online - Detail Indication:Diabetes mellitus type II, controlled, with no complications (Renamed from Controlled type 2 diabetes mellitus without complication) Start:19-Jan-2019 Instruction Type:Patient Education Patient Instructions Indication:Hypothyroid Start:19-Jan-2019 Instruction Type:Provider Instructions for Treatment How to access health informa tion online Indication:Nonsmoker Start:05-Oct-2018 Instruction Type:Patient Education How to access health informa tion online - Detail Indication:Nonsmoker Start:05-Oct-2018 Instruction Type:Patient Education Patient Instructions Indication:Atypical lobular hyperplasia of right breast Start:05-Oct-2018 Instruction Type:Provider Instructions for Treatment How to access health informa tion online Indication:BMI 35.0-35.9,adult Start:16-Sep-2018 Instruction Type:Patient Education How to access health informa tion online - Detail Indication:BMI 35.0-35.9,adult Start:16-Sep-2018 Instruction Type:Patient Education Patient Instructions Indication:BMI 35.0-35.9,adult Start:16-Sep-2018 Instruction Type:Provider Instructions for Treatment How to access health informa tion online Indication:Nonsmoker Start:27-Jun-2018 Instruction Type:Patient Education How to access health informa tion online - Detail Indication:Nonsmoker Start:27-Jun-2018 Instruction Type:Patient Education Patient Instructions Indication:Elevated liver enzymes Start:27-Jun-2018 Instruction Type:Provider Instructions for Treatment How to access health informa tion online Indication:Diabetes mellitus type II, controlled, with no complications (Renamed from Controlled type 2 diabetes mellitus without complication) Start:14-Jun-2018 Instruction Type:Patient Education How to access health informa tion online - Detail Indication:Diabetes mellitus type II, controlled, with no complications (Renamed from Controlled type 2 diabetes mellitus without complication) Start:14-Jun-2018 Instruction Type:Patient Education Patient Instructions Indication:Diabetes mellitus type II, controlled, with no complications (Renamed from Controlled type 2 diabetes mellitus without complication) Start:14-Jun-2018 Instruction Type:Provider Instructions for Treatment How to access health informa tion online Indication:Diabetes mellitus type II, controlled, with no complications (Renamed from Controlled type 2 diabetes mellitus without complication) Start:15-Mar-2018 Instruction Type:Patient Education How to access health informa tion online - Detail Indication:Diabetes mellitus type II, controlled, with no complications (Renamed from Controlled type 2 diabetes mellitus without complication) Start:15-Mar-2018 Instruction Type:Patient Education Patient Instructions Indication:Diabetes mellitus type II, controlled, with no complications (Renamed from Controlled type 2 diabetes mellitus without complication) Start:15-Mar-2018 Instruction Type:Provider Instructions for Treatment How to access health informa tion online Indication:Diabetes mellitus type II, controlled, with no complications (Renamed from Controlled type 2 diabetes mellitus without complication) Start:06-Dec-2017 Instruction Type:Patient Education How to access health informa tion online - Detail Indication:Diabetes mellitus type II, controlled, with no complications (Renamed from Controlled type 2 diabetes mellitus without complication) Start:06-Dec-2017 Instruction Type:Patient Education Patient Instructions Indication:Diabetes mellitus type II, controlled, with no complications (Renamed from Controlled type 2 diabetes mellitus without complication) Start:06-Dec-2017 Instruction Type:Provider Instructions for Treatment How to access health informa tion online Indication:Nonsmoker Start:30-Nov-2017 Instruction Type:Patient Education How to access health informa tion online - Detail Indication:Nonsmoker Start:30-Nov-2017 Instruction Type:Patient Education Patient Instructions Indication:Sinusitis, bacterial Start:30-Nov-2017 Instruction Type:Provider Instructions for Treatment How to access health informa tion online Indication:Diabetes mellitus type II, controlled, with no complications (Renamed from Controlled type 2 diabetes mellitus without complication) Start:10-Aug-2017 Instruction Type:Patient Education How to access health informa tion online - Detail Indication:Diabetes mellitus type II, controlled, with no complications (Renamed from Controlled type 2 diabetes mellitus without complication) Start:10-Aug-2017 Instruction Type:Patient Education Patient Instructions Indication:Diabetes mellitus type II, controlled, with no complications (Renamed from Controlled type 2 diabetes mellitus without complication) Start:10-Aug-2017 Instruction Type:Provider Instructions for Treatment How to access health informa tion online Indication:Uncontrolled type 2 diabetes mellitus without complication, without long-term current use of insulin Start:07-May-2017 Instruction Type:Patient Education How to access health informa tion online - Detail Indication:Uncontrolled type 2 diabetes mellitus without complication, without long-term current use of insulin Start:07-May-2017 Instruction Type:Patient Education Patient Instructions Indication:Uncontrolled type 2 diabetes mellitus without complication, without long-term current use of insulin Start:07-May-2017 Instruction Type:Provider Instructions for Treatment Patient Instructions Indication:Nonsmoker Start:09-Feb-2017 Instruction Type:Provider Instructions for Treatment How to access health informa tion online Indication:Uncontrolled type 2 diabetes mellitus without complication, without long-term current use of insulin Start:09-Dec-2016 Instruction Type:Patient Education How to access health informa tion online - Detail Indication:Uncontrolled type 2 diabetes mellitus without complication, without long-term current use of insulin Start:09-Dec-2016 Instruction Type:Patient Education Patient Instructions Indication:Uncontrolled type 2 diabetes mellitus without complication, without long-term current use of insulin Start:09-Dec-2016 Instruction Type:Provider Instructions for Treatment DISCONTINUED - LIPID PANEL ( [id number]) Indication:Hypercholesteremia Start:13-Oct-2016 Instruction Type:Patient Education DISCONTINUED - Glucose, PP/2 Hour (77798) Indication:Family history of diabetes mellitus Start:13-Oct-2016 Instruction Type:Patient Education DISCONTINUED - Hemoglobin Glyclated (HGB A1C) (65409) Indication:Family history of diabetes mellitus Start:13-Oct-2016 Instruction Type:Patient Education How to access health informa [employer] online Indication:Uncontrolled type 2 diabetes mellitus without complication, without long-term current use of insulin Start:13-Oct-2016 Instruction Type:Patient Education How to access health informa tion online - Detail Indication:Uncontrolled type 2 diabetes mellitus without complication, without long-term current use of insulin Start:13-Oct-2016 Instruction Type:Patient Education Patient Instructions Indication:Uncontrolled type 2 diabetes mellitus without complication, without long-term current use of insulin Start:13-Oct-2016 Instruction Type:Provider Instructions for Treatment Patient Instructions Indication:Nonsmoker Start:30-Sep-2016 Instruction Type:Provider Instructions for Treatment How to access health informa [employer] online Indication:Uncontrolled type 2 diabetes mellitus without complication, without long-term current use of insulin Start:30-Sep-2016 Instruction Type:Patient Education How to access health informa tion online - Detail Indication:Uncontrolled type 2 diabetes mellitus without complication, without long-term current use of insulin Start:30-Sep-2016 Instruction Type:Patient Education Patient Instructions Indication:Hypothyroid Start:28-Aug-2013 Instruction Type:Provider Instructions for Treatment Patient Instructions Indication:Family history of diabetes mellitus Start:06-Mar-2013 Instruction Type:Provider Instructions for Treatment Name Dates Details How to access health informa [employer] online Indication:Diabetes mellitus type II, controlled, with no complications (Renamed from Controlled type 2 diabetes mellitus without complication) Start:28-Aug-2019 Instruction Type:Patient Education How to access health informa tion online - Detail Indication:Diabetes mellitus type II, controlled, with no complications (Renamed from Controlled type 2 diabetes mellitus without complication) Start:28-Aug-2019 Instruction Type:Patient Education Patient Instructions Indication:BMI 33.0-33.9,adult Start:28-Aug-2019 Instruction Type:Provider Instructions for Treatment How to access health [employer] online Indication:Nonsmoker Start:03-Apr-2019 Instruction Type:Patient Education How to access health informa [employer] online - Detail Indication:Nonsmoker Start:03-Apr-2019 Instruction Type:Patient Education Patient Instructions Indication:Nonsmoker Start:03-Apr-2019 Instruction Type:Provider Instructions for Treatment How to access health informa tion online Indication:Diabetes mellitus type 2, uncontrolled (Renamed from Uncontrolled type 2 diabetes mellitus) Start:13-Mar-2019 Instruction Type:Patient Education How to access health informa tion online - Detail Indication:Diabetes mellitus type 2, uncontrolled (Renamed from Uncontrolled type 2 diabetes mellitus) Start:13-Mar-2019 Instruction Type:Patient Education Patient Instructions Indication:BMI 35.0-35.9,adult Start:13-Mar-2019 Instruction Type:Provider Instructions for Treatment How to access health informa tion online Indication:Diabetes mellitus type II, controlled, with no complications (Renamed from Controlled type 2 diabetes mellitus without complication) Start:19-Jan-2019 Instruction Type:Patient Education How to access health informa tion online - Detail Indication:Diabetes mellitus type II, controlled, with no complications (Renamed from Controlled type 2 diabetes mellitus without complication) Start:19-Jan-2019 Instruction Type:Patient Education Patient Instructions Indication:Hypothyroid Start:19-Jan-2019 Instruction Type:Provider Instructions for Treatment How to access health informa tion online Indication:Nonsmoker Start:05-Oct-2018 Instruction Type:Patient Education How to access health informa tion online - Detail Indication:Nonsmoker Start:05-Oct-2018 Instruction Type:Patient Education Patient Instructions Indication:Atypical lobular hyperplasia of right breast Start:05-Oct-2018 Instruction Type:Provider Instructions for Treatment How to access health informa tion online Indication:BMI 35.0-35.9,adult Start:16-Sep-2018 Instruction Type:Patient Education How to access health informa tion online - Detail Indication:BMI 35.0-35.9,adult Start:16-Sep-2018 Instruction Type:Patient Education Patient Instructions Indication:BMI 35.0-35.9,adult Start:16-Sep-2018 Instruction Type:Provider Instructions for Treatment How to access health informa tion online Indication:Nonsmoker Start:27-Jun-2018 Instruction Type:Patient Education How to access health informa tion online - Detail Indication:Nonsmoker Start:27-Jun-2018 Instruction Type:Patient Education Patient Instructions Indication:Elevated liver enzymes Start:27-Jun-2018 Instruction Type:Provider Instructions for Treatment How to access health informa tion online Indication:Diabetes mellitus type II, controlled, with no complications (Renamed from Controlled type 2 diabetes mellitus without complication) Start:14-Jun-2018 Instruction Type:Patient Education How to access health informa tion online - Detail Indication:Diabetes mellitus type II, controlled, with no complications (Renamed from Controlled type 2 diabetes mellitus without complication) Start:14-Jun-2018 Instruction Type:Patient Education Patient Instructions Indication:Diabetes mellitus type II, controlled, with no complications (Renamed from Controlled type 2 diabetes mellitus without complication) Start:14-Jun-2018 Instruction Type:Provider Instructions for Treatment How to access health informa tion online Indication:Diabetes mellitus type II, controlled, with no complications (Renamed from Controlled type 2 diabetes mellitus without complication) Start:15-Mar-2018 Instruction Type:Patient Education How to access health informa tion online - Detail Indication:Diabetes mellitus type II, controlled, with no complications (Renamed from Controlled type 2 diabetes mellitus without complication) Start:15-Mar-2018 Instruction Type:Patient Education Patient Instructions Indication:Diabetes mellitus type II, controlled, with no complications (Renamed from Controlled type 2 diabetes mellitus without complication) Start:15-Mar-2018 Instruction Type:Provider Instructions for Treatment How to access health informa tion online Indication:Diabetes mellitus type II, controlled, with no complications (Renamed from Controlled type 2 diabetes mellitus without complication) Start:06-Dec-2017 Instruction Type:Patient Education How to access health informa tion online - Detail Indication:Diabetes mellitus type II, controlled, with no complications (Renamed from Controlled type 2 diabetes mellitus without complication) Start:06-Dec-2017 Instruction Type:Patient Education Patient Instructions Indication:Diabetes mellitus type II, controlled, with no complications (Renamed from Controlled type 2 diabetes mellitus without complication) Start:06-Dec-2017 Instruction Type:Provider Instructions for Treatment How to access health informa tion online Indication:Nonsmoker Start:30-Nov-2017 Instruction Type:Patient Education How to access health informa tion online - Detail Indication:Nonsmoker Start:30-Nov-2017 Instruction Type:Patient Education Patient Instructions Indication:Sinusitis, bacterial Start:30-Nov-2017 Instruction Type:Provider Instructions for Treatment How to access health informa tion online Indication:Diabetes mellitus type II, controlled, with no complications (Renamed from Controlled type 2 diabetes mellitus without complication) Start:10-Aug-2017 Instruction Type:Patient Education How to access health informa tion online - Detail Indication:Diabetes mellitus type II, controlled, with no complications (Renamed from Controlled type 2 diabetes mellitus without complication) Start:10-Aug-2017 Instruction Type:Patient Education Patient Instructions Indication:Diabetes mellitus type II, controlled, with no complications (Renamed from Controlled type 2 diabetes mellitus without complication) Start:10-Aug-2017 Instruction Type:Provider Instructions for Treatment How to access health informa tion online Indication:Uncontrolled type 2 diabetes mellitus without complication, without long-term current use of insulin Start:07-May-2017 Instruction Type:Patient Education How to access health informa tion online - Detail Indication:Uncontrolled type 2 diabetes mellitus without complication, without long-term current use of insulin Start:07-May-2017 Instruction Type:Patient Education Patient Instructions Indication:Uncontrolled type 2 diabetes mellitus without complication, without long-term current use of insulin Start:07-May-2017 Instruction Type:Provider Instructions for Treatment Patient Instructions Indication:Nonsmoker Start:09-Feb-2017 Instruction Type:Provider Instructions for Treatment How to access health informa tion online Indication:Uncontrolled type 2 diabetes mellitus without complication, without long-term current use of insulin Start:09-Dec-2016 Instruction Type:Patient Education How to access health informa tion online - Detail Indication:Uncontrolled type 2 diabetes mellitus without complication, without long-term current use of insulin Start:09-Dec-2016 Instruction Type:Patient Education Patient Instructions Indication:Uncontrolled type 2 diabetes mellitus without complication, without long-term current use of insulin Start:09-Dec-2016 Instruction Type:Provider Instructions for Treatment DISCONTINUED - LIPID PANEL ( [id number]) Indication:Hypercholesteremia Start:13-Oct-2016 Instruction Type:Patient Education DISCONTINUED - Glucose, PP/2 Hour ([id number]) Indication:Family history of diabetes mellitus Start:13-Oct-2016 Instruction Type:Patient Education DISCONTINUED - Hemoglobin Glyclated (HGB A1C) ([id number]) Indication:Family history of diabetes mellitus Start:13-Oct-2016 Instruction Type:Patient Education How to access health informa tion online Indication:Uncontrolled type 2 diabetes mellitus without complication, without long-term current use of insulin Start:13-Oct-2016 Instruction Type:Patient Education How to access health informa tion online - Detail Indication:Uncontrolled type 2 diabetes mellitus without complication, without long-term current use of insulin Start:13-Oct-2016 Instruction Type:Patient Education Patient Instructions Indication:Uncontrolled type 2 diabetes mellitus without complication, without long-term current use of insulin Start:13-Oct-2016 Instruction Type:Provider Instructions for Treatment Patient Instructions Indication:Nonsmoker Start:30-Sep-2016 Instruction Type:Provider Instructions for Treatment How to access health informa tion online Indication:Uncontrolled type 2 diabetes mellitus without complication, without long-term current use of insulin Start:30-Sep-2016 Instruction Type:Patient Education How to access health informa tion online - Detail Indication:Uncontrolled type 2 diabetes mellitus without complication, without long-term current use of insulin Start:30-Sep-2016 Instruction Type:Patient Education Patient Instructions Indication:Hypothyroid Start:28-Aug-2013 Instruction Type:Provider Instructions for Treatment Patient Instructions Indication:Family history of diabetes mellitus Start:06-Mar-2013 Instruction Type:Provider Instructions for Treatment Name Dates Details How to access health informa tion online Indication:Diabetes mellitus type II, controlled, with no complications (Renamed from Controlled type 2 diabetes mellitus without complication) Start:28-Aug-2019 Instruction Type:Patient Education How to access health informa tion online - Detail Indication:Diabetes mellitus type II, controlled, with no complications (Renamed from Controlled type 2 diabetes mellitus without complication) Start:28-Aug-2019 Instruction Type:Patient Education Patient Instructions Indication:BMI 33.0-33.9,adult Start:28-Aug-2019 Instruction Type:Provider Instructions for Treatment How to access health informa tion online Indication:Nonsmoker Start:03-Apr-2019 Instruction Type:Patient Education How to access health informa tion online - Detail Indication:Nonsmoker Start:03-Apr-2019 Instruction Type:Patient Education Patient Instructions Indication:Nonsmoker Start:03-Apr-2019 Instruction Type:Provider Instructions for Treatment How to access health informa tion online Indication:Diabetes mellitus type 2, uncontrolled (Renamed from Uncontrolled type 2 diabetes mellitus) Start:13-Mar-2019 Instruction Type:Patient Education How to access health informa tion online - Detail Indication:Diabetes mellitus type 2, uncontrolled (Renamed from Uncontrolled type 2 diabetes mellitus) Start:13-Mar-2019 Instruction Type:Patient Education Patient Instructions Indication:BMI 35.0-35.9,adult Start:13-Mar-2019 Instruction Type:Provider Instructions for Treatment How to access health informa tion online Indication:Diabetes mellitus type II, controlled, with no complications (Renamed from Controlled type 2 diabetes mellitus without complication) Start:19-Jan-2019 Instruction Type:Patient Education How to access health informa tion online - Detail Indication:Diabetes mellitus type II, controlled, with no complications (Renamed from Controlled type 2 diabetes mellitus without complication) Start:19-Jan-2019 Instruction Type:Patient Education Patient Instructions Indication:Hypothyroid Start:19-Jan-2019 Instruction Type:Provider Instructions for Treatment How to access health informa tion online Indication:Nonsmoker Start:05-Oct-2018 Instruction Type:Patient Education How to access health informa tion online - Detail Indication:Nonsmoker Start:05-Oct-2018 Instruction Type:Patient Education Patient Instructions Indication:Atypical lobular hyperplasia of right breast Start:05-Oct-2018 Instruction Type:Provider Instructions for Treatment How to access health informa tion online Indication:BMI 35.0-35.9,adult Start:16-Sep-2018 Instruction Type:Patient Education How to access health informa tion online - Detail Indication:BMI 35.0-35.9,adult Start:16-Sep-2018 Instruction Type:Patient Education Patient Instructions Indication:BMI 35.0-35.9,adult Start:16-Sep-2018 Instruction Type:Provider Instructions for Treatment How to access health informa tion online Indication:Nonsmoker Start:27-Jun-2018 Instruction Type:Patient Education How to access health informa tion online - Detail Indication:Nonsmoker Start:27-Jun-2018 Instruction Type:Patient Education Patient Instructions Indication:Elevated liver enzymes Start:27-Jun-2018 Instruction Type:Provider Instructions for Treatment How to access health informa tion online Indication:Diabetes mellitus type II, controlled, with no complications (Renamed from Controlled type 2 diabetes mellitus without complication) Start:14-Jun-2018 Instruction Type:Patient Education How to access health informa tion online - Detail Indication:Diabetes mellitus type II, controlled, with no complications (Renamed from Controlled type 2 diabetes mellitus without complication) Start:14-Jun-2018 Instruction Type:Patient Education Patient Instructions Indication:Diabetes mellitus type II, controlled, with no complications (Renamed from Controlled type 2 diabetes mellitus without complication) Start:14-Jun-2018 Instruction Type:Provider Instructions for Treatment How to access health informa tion online Indication:Diabetes mellitus type II, controlled, with no complications (Renamed from Controlled type 2 diabetes mellitus without complication) Start:15-Mar-2018 Instruction Type:Patient Education How to access health informa tion online - Detail Indication:Diabetes mellitus type II, controlled, with no complications (Renamed from Controlled type 2 diabetes mellitus without complication) Start:15-Mar-2018 Instruction Type:Patient Education Patient Instructions Indication:Diabetes mellitus type II, controlled, with no complications (Renamed from Controlled type 2 diabetes mellitus without complication) Start:15-Mar-2018 Instruction Type:Provider Instructions for Treatment How to access health informa tion online Indication:Diabetes mellitus type II, controlled, with no complications (Renamed from Controlled type 2 diabetes mellitus without complication) Start:06-Dec-2017 Instruction Type:Patient Education How to access health informa tion online - Detail Indication:Diabetes mellitus type II, controlled, with no complications (Renamed from Controlled type 2 diabetes mellitus without complication) Start:06-Dec-2017 Instruction Type:Patient Education Patient Instructions Indication:Diabetes mellitus type II, controlled, with no complications (Renamed from Controlled type 2 diabetes mellitus without complication) Start:06-Dec-2017 Instruction Type:Provider Instructions for Treatment How to access health informa tion online Indication:Nonsmoker Start:30-Nov-2017 Instruction Type:Patient Education How to access health informa tion online - Detail Indication:Nonsmoker Start:30-Nov-2017 Instruction Type:Patient Education Patient Instructions Indication:Sinusitis, bacterial Start:30-Nov-2017 Instruction Type:Provider Instructions for Treatment How to access health informa tion online Indication:Diabetes mellitus type II, controlled, with no complications (Renamed from Controlled type 2 diabetes mellitus without complication) Start:10-Aug-2017 Instruction Type:Patient Education How to access health informa tion online - Detail Indication:Diabetes mellitus type II, controlled, with no complications (Renamed from Controlled type 2 diabetes mellitus without complication) Start:10-Aug-2017 Instruction Type:Patient Education Patient Instructions Indication:Diabetes mellitus type II, controlled, with no complications (Renamed from Controlled type 2 diabetes mellitus without complication) Start:10-Aug-2017 Instruction Type:Provider Instructions for Treatment How to access health informa tion online Indication:Uncontrolled type 2 diabetes mellitus without complication, without long-term current use of insulin Start:07-May-2017 Instruction Type:Patient Education How to access health informa tion online - Detail Indication:Uncontrolled type 2 diabetes mellitus without complication, without long-term current use of insulin Start:07-May-2017 Instruction Type:Patient Education Patient Instructions Indication:Uncontrolled type 2 diabetes mellitus without complication, without long-term current use of insulin Start:07-May-2017 Instruction Type:Provider Instructions for Treatment Patient Instructions Indication:Nonsmoker Start:09-Feb-2017 Instruction Type:Provider Instructions for Treatment How to access health [employer] Indication:Uncontrolled type 2 diabetes mellitus without complication, without long-term current use of insulin Start:09-Dec-2016 Instruction Type:Patient Education How to access health informa [employer] online - Detail Indication:Uncontrolled type 2 diabetes mellitus without complication, without long-term current use of insulin Start:09-Dec-2016 Instruction Type:Patient Education Patient Instructions Indication:Uncontrolled type 2 diabetes mellitus without complication, without long-term current use of insulin Start:09-Dec-2016 Instruction Type:Provider Instructions for Treatment DISCONTINUED - LIPID PANEL ( [id number]) Indication:Hypercholesteremia Start:13-Oct-2016 Instruction Type:Patient Education DISCONTINUED - Glucose, PP/2 Hour (70544) Indication:Family history of diabetes mellitus Start:13-Oct-2016 Instruction Type:Patient Education DISCONTINUED - Hemoglobin Glyclated (HGB A1C) ([id number]) Indication:Family history of diabetes mellitus Start:13-Oct-2016 Instruction Type:Patient Education How to access health [employer] online Indication:Uncontrolled type 2 diabetes mellitus without complication, without long-term current use of insulin Start:13-Oct-2016 Instruction Type:Patient Education How to access health informa [employer] online - Detail Indication:Uncontrolled type 2 diabetes mellitus without complication, without long-term current use of insulin Start:13-Oct-2016 Instruction Type:Patient Education Patient Instructions Indication:Uncontrolled type 2 diabetes mellitus without complication, without long-term current use of insulin Start:13-Oct-2016 Instruction Type:Provider Instructions for Treatment Patient Instructions Indication:Nonsmoker Start:30-Sep-2016 Instruction Type:Provider Instructions for Treatment How to access health [employer] online Indication:Uncontrolled type 2 diabetes mellitus without complication, without long-term current use of insulin Start:30-Sep-2016 Instruction Type:Patient Education How to access health informa [employer] online - Detail Indication:Uncontrolled type 2 diabetes mellitus without complication, without long-term current use of insulin Start:30-Sep-2016 Instruction Type:Patient Education Patient Instructions Indication:Hypothyroid Start:28-Aug-2013 Instruction Type:Provider Instructions for Treatment Patient Instructions Indication:Family history of diabetes mellitus Start:06-Mar-2013 Instruction Type:Provider Instructions for Treatment Name Dates Details How to access health informa tion online Indication:Nonsmoker Start:23-Feb-2020 Instruction Type:Patient Education How to access health informa tion online - Detail Indication:Nonsmoker Start:23-Feb-2020 Instruction Type:Patient Education Patient Instructions Indication:Nonsmoker Start:23-Feb-2020 Instruction Type:Provider Instructions for Treatment How to access health informa tion online Indication:Nonsmoker Start:21-Feb-2020 Instruction Type:Patient Education How to access health informa tion online - Detail Indication:Nonsmoker Start:21-Feb-2020 Instruction Type:Patient Education Patient Instructions Indication:Nonsmoker Start:21-Feb-2020 Instruction Type:Provider Instructions for Treatment How to access health informa tion online Indication:Nonsmoker Start:16-Feb-2020 Instruction Type:Patient Education How to access health informa tion online - Detail Indication:Nonsmoker Start:16-Feb-2020 Instruction Type:Patient Education Patient Instructions Indication:BMI 34.0-34.9,adult Start:16-Feb-2020 Instruction Type:Provider Instructions for Treatment How to access health informa tion online Indication:Nonsmoker Start:14-Dec-2019 Instruction Type:Patient Education How to access health informa tion online - Detail Indication:Nonsmoker Start:14-Dec-2019 Instruction Type:Patient Education Patient Instructions Indication:Cough Start:14-Dec-2019 Instruction Type:Provider Instructions for Treatment How to access health informa tion online Indication:Diabetes mellitus type II, controlled, with no complications (Renamed from Controlled type 2 diabetes mellitus without complication) Start:06-Nov-2019 Instruction Type:Patient Education How to access health informa tion online - Detail Indication:Diabetes mellitus type II, controlled, with no complications (Renamed from Controlled type 2 diabetes mellitus without complication) Start:06-Nov-2019 Instruction Type:Patient Education Patient Instructions Indication:Vitamin D deficiency Start:06-Nov-2019 Instruction Type:Provider Instructions for Treatment How to access health informa tion online Indication:Diabetes mellitus type II, controlled, with no complications (Renamed from Controlled type 2 diabetes mellitus without complication) Start:28-Aug-2019 Instruction Type:Patient Education How to access health informa tion online - Detail Indication:Diabetes mellitus type II, controlled, with no complications (Renamed from Controlled type 2 diabetes mellitus without complication) Start:28-Aug-2019 Instruction Type:Patient Education Patient Instructions Indication:BMI 33.0-33.9,adult Start:28-Aug-2019 Instruction Type:Provider Instructions for Treatment How to access health informa tion online Indication:Nonsmoker Start:03-Apr-2019 Instruction Type:Patient Education How to access health informa tion online - Detail Indication:Nonsmoker Start:03-Apr-2019 Instruction Type:Patient Education Patient Instructions Indication:Nonsmoker Start:03-Apr-2019 Instruction Type:Provider Instructions for Treatment How to access health informa tion online Indication:Diabetes mellitus type 2, uncontrolled (Renamed from Uncontrolled type 2 diabetes mellitus) Start:13-Mar-2019 Instruction Type:Patient Education How to access health informa tion online - Detail Indication:Diabetes mellitus type 2, uncontrolled (Renamed from Uncontrolled type 2 diabetes mellitus) Start:13-Mar-2019 Instruction Type:Patient Education Patient Instructions Indication:BMI 35.0-35.9,adult Start:13-Mar-2019 Instruction Type:Provider Instructions for Treatment How to access health informa tion online Indication:Diabetes mellitus type II, controlled, with no complications (Renamed from Controlled type 2 diabetes mellitus without complication) Start:19-Jan-2019 Instruction Type:Patient Education How to access health informa tion online - Detail Indication:Diabetes mellitus type II, controlled, with no complications (Renamed from Controlled type 2 diabetes mellitus without complication) Start:19-Jan-2019 Instruction Type:Patient Education Patient Instructions Indication:Hypothyroid Start:19-Jan-2019 Instruction Type:Provider Instructions for Treatment How to access health informa tion online Indication:Nonsmoker Start:05-Oct-2018 Instruction Type:Patient Education How to access health informa tion online - Detail Indication:Nonsmoker Start:05-Oct-2018 Instruction Type:Patient Education Patient Instructions Indication:Atypical lobular hyperplasia of right breast Start:05-Oct-2018 Instruction Type:Provider Instructions for Treatment How to access health informa tion online Indication:BMI 35.0-35.9,adult Start:16-Sep-2018 Instruction Type:Patient Education How to access health informa tion online - Detail Indication:BMI 35.0-35.9,adult Start:16-Sep-2018 Instruction Type:Patient Education Patient Instructions Indication:BMI 35.0-35.9,adult Start:16-Sep-2018 Instruction Type:Provider Instructions for Treatment How to access health informa tion online Indication:Nonsmoker Start:27-Jun-2018 Instruction Type:Patient Education How to access health informa tion online - Detail Indication:Nonsmoker Start:27-Jun-2018 Instruction Type:Patient Education Patient Instructions Indication:Elevated liver enzymes Start:27-Jun-2018 Instruction Type:Provider Instructions for Treatment How to access health informa tion online Indication:Diabetes mellitus type II, controlled, with no complications (Renamed from Controlled type 2 diabetes mellitus without complication) Start:14-Jun-2018 Instruction Type:Patient Education How to access health informa tion online - Detail Indication:Diabetes mellitus type II, controlled, with no complications (Renamed from Controlled type 2 diabetes mellitus without complication) Start:14-Jun-2018 Instruction Type:Patient Education Patient Instructions Indication:Diabetes mellitus type II, controlled, with no complications (Renamed from Controlled type 2 diabetes mellitus without complication) Start:14-Jun-2018 Instruction Type:Provider Instructions for Treatment How to access health informa tion online Indication:Diabetes mellitus type II, controlled, with no complications (Renamed from Controlled type 2 diabetes mellitus without complication) Start:15-Mar-2018 Instruction Type:Patient Education How to access health informa tion online - Detail Indication:Diabetes mellitus type II, controlled, with no complications (Renamed from Controlled type 2 diabetes mellitus without complication) Start:15-Mar-2018 Instruction Type:Patient Education Patient Instructions Indication:Diabetes mellitus type II, controlled, with no complications (Renamed from Controlled type 2 diabetes mellitus without complication) Start:15-Mar-2018 Instruction Type:Provider Instructions for Treatment How to access health informa tion online Indication:Diabetes mellitus type II, controlled, with no complications (Renamed from Controlled type 2 diabetes mellitus without complication) Start:06-Dec-2017 Instruction Type:Patient Education How to access health informa tion online - Detail Indication:Diabetes mellitus type II, controlled, with no complications (Renamed from Controlled type 2 diabetes mellitus without complication) Start:06-Dec-2017 Instruction Type:Patient Education Patient Instructions Indication:Diabetes mellitus type II, controlled, with no complications (Renamed from Controlled type 2 diabetes mellitus without complication) Start:06-Dec-2017 Instruction Type:Provider Instructions for Treatment How to access health informa tion online Indication:Nonsmoker Start:30-Nov-2017 Instruction Type:Patient Education How to access health informa tion online - Detail Indication:Nonsmoker Start:30-Nov-2017 Instruction Type:Patient Education Patient Instructions Indication:Sinusitis, bacterial Start:30-Nov-2017 Instruction Type:Provider Instructions for Treatment How to access health informa tion online Indication:Diabetes mellitus type II, controlled, with no complications (Renamed from Controlled type 2 diabetes mellitus without complication) Start:10-Aug-2017 Instruction Type:Patient Education How to access health informa tion online - Detail Indication:Diabetes mellitus type II, controlled, with no complications (Renamed from Controlled type 2 diabetes mellitus without complication) Start:10-Aug-2017 Instruction Type:Patient Education Patient Instructions Indication:Diabetes mellitus type II, controlled, with no complications (Renamed from Controlled type 2 diabetes mellitus without complication) Start:10-Aug-2017 Instruction Type:Provider Instructions for Treatment How to access health informa tion online Indication:Uncontrolled type 2 diabetes mellitus without complication, without long-term current use of insulin Start:07-May-2017 Instruction Type:Patient Education How to access health informa tion online - Detail Indication:Uncontrolled type 2 diabetes mellitus without complication, without long-term current use of insulin Start:07-May-2017 Instruction Type:Patient Education Patient Instructions Indication:Uncontrolled type 2 diabetes mellitus without complication, without long-term current use of insulin Start:07-May-2017 Instruction Type:Provider Instructions for Treatment Patient Instructions Indication:Nonsmoker Start:09-Feb-2017 Instruction Type:Provider Instructions for Treatment How to access health informa tion online Indication:Uncontrolled type 2 diabetes mellitus without complication, without long-term current use of insulin Start:09-Dec-2016 Instruction Type:Patient Education How to access health informa tion online - Detail Indication:Uncontrolled type 2 diabetes mellitus without complication, without long-term current use of insulin Start:09-Dec-2016 Instruction Type:Patient Education Patient Instructions Indication:Uncontrolled type 2 diabetes mellitus without complication, without long-term current use of insulin Start:09-Dec-2016 Instruction Type:Provider Instructions for Treatment DISCONTINUED - LIPID PANEL ( [id number]) Indication:Hypercholesteremia Start:13-Oct-2016 Instruction Type:Patient Education DISCONTINUED - Glucose, PP/2 Hour (15533) Indication:Family history of diabetes mellitus Start:13-Oct-2016 Instruction Type:Patient Education DISCONTINUED - Hemoglobin Glyclated (HGB A1C) (98594) Indication:Family history of diabetes mellitus Start:13-Oct-2016 Instruction Type:Patient Education How to access health informa tion online Indication:Uncontrolled type 2 diabetes mellitus without complication, without long-term current use of insulin Start:13-Oct-2016 Instruction Type:Patient Education How to access health informa tion online - Detail Indication:Uncontrolled type 2 diabetes mellitus without complication, without long-term current use of insulin Start:13-Oct-2016 Instruction Type:Patient Education Patient Instructions Indication:Uncontrolled type 2 diabetes mellitus without complication, without long-term current use of insulin Start:13-Oct-2016 Instruction Type:Provider Instructions for Treatment Patient Instructions Indication:Nonsmoker Start:30-Sep-2016 Instruction Type:Provider Instructions for Treatment How to access health informa tion online Indication:Uncontrolled type 2 diabetes mellitus without complication, without long-term current use of insulin Start:30-Sep-2016 Instruction Type:Patient Education How to access health informa tion online - Detail Indication:Uncontrolled type 2 diabetes mellitus without complication, without long-term current use of insulin Start:30-Sep-2016 Instruction Type:Patient Education Patient Instructions Indication:Hypothyroid Start:28-Aug-2013 Instruction Type:Provider Instructions for Treatment Patient Instructions Indication:Family history of diabetes mellitus Start:06-Mar-2013 Instruction Type:Provider Instructions for Treatment Name Dates Details How to access health informa tion online Indication:Nonsmoker Start:10-Jun-2020 Instruction Type:Patient Education How to access health informa tion online - Detail Indication:Nonsmoker Start:10-Jun-2020 Instruction Type:Patient Education Patient Instructions Indication:BMI 34.0-34.9,adult Start:10-Jun-2020 Instruction Type:Provider Instructions for Treatment How to access health informa tion online Indication:Nonsmoker Start:23-Feb-2020 Instruction Type:Patient Education How to access health informa tion online - Detail Indication:Nonsmoker Start:23-Feb-2020 Instruction Type:Patient Education Patient Instructions Indication:Nonsmoker Start:23-Feb-2020 Instruction Type:Provider Instructions for Treatment How to access health informa tion online Indication:Nonsmoker Start:21-Feb-2020 Instruction Type:Patient Education How to access health informa tion online - Detail Indication:Nonsmoker Start:21-Feb-2020 Instruction Type:Patient Education Patient Instructions Indication:Nonsmoker Start:21-Feb-2020 Instruction Type:Provider Instructions for Treatment How to access health informa tion online Indication:Nonsmoker Start:16-Feb-2020 Instruction Type:Patient Education How to access health informa tion online - Detail Indication:Nonsmoker Start:16-Feb-2020 Instruction Type:Patient Education Patient Instructions Indication:BMI 34.0-34.9,adult Start:16-Feb-2020 Instruction Type:Provider Instructions for Treatment How to access health informa tion online Indication:Nonsmoker Start:14-Dec-2019 Instruction Type:Patient Education How to access health informa tion online - Detail Indication:Nonsmoker Start:14-Dec-2019 Instruction Type:Patient Education Patient Instructions Indication:Cough Start:14-Dec-2019 Instruction Type:Provider Instructions for Treatment How to access health informa tion online Indication:Diabetes mellitus type II, controlled, with no complications (Renamed from Controlled type 2 diabetes mellitus without complication) Start:06-Nov-2019 Instruction Type:Patient Education How to access health informa tion online - Detail Indication:Diabetes mellitus type II, controlled, with no complications (Renamed from Controlled type 2 diabetes mellitus without complication) Start:06-Nov-2019 Instruction Type:Patient Education Patient Instructions Indication:Vitamin D deficiency Start:06-Nov-2019 Instruction Type:Provider Instructions for Treatment How to access health informa tion online Indication:Diabetes mellitus type II, controlled, with no complications (Renamed from Controlled type 2 diabetes mellitus without complication) Start:28-Aug-2019 Instruction Type:Patient Education How to access health informa tion online - Detail Indication:Diabetes mellitus type II, controlled, with no complications (Renamed from Controlled type 2 diabetes mellitus without complication) Start:28-Aug-2019 Instruction Type:Patient Education Patient Instructions Indication:BMI 33.0-33.9,adult Start:28-Aug-2019 Instruction Type:Provider Instructions for Treatment How to access health informa tion online Indication:Nonsmoker Start:03-Apr-2019 Instruction Type:Patient Education How to access health informa tion online - Detail Indication:Nonsmoker Start:03-Apr-2019 Instruction Type:Patient Education Patient Instructions Indication:Nonsmoker Start:03-Apr-2019 Instruction Type:Provider Instructions for Treatment How to access health informa tion online Indication:Diabetes mellitus type 2, uncontrolled (Renamed from Uncontrolled type 2 diabetes mellitus) Start:13-Mar-2019 Instruction Type:Patient Education How to access health informa tion online - Detail Indication:Diabetes mellitus type 2, uncontrolled (Renamed from Uncontrolled type 2 diabetes mellitus) Start:13-Mar-2019 Instruction Type:Patient Education Patient Instructions Indication:BMI 35.0-35.9,adult Start:13-Mar-2019 Instruction Type:Provider Instructions for Treatment How to access health informa tion online Indication:Diabetes mellitus type II, controlled, with no complications (Renamed from Controlled type 2 diabetes mellitus without complication) Start:19-Jan-2019 Instruction Type:Patient Education How to access health informa tion online - Detail Indication:Diabetes mellitus type II, controlled, with no complications (Renamed from Controlled type 2 diabetes mellitus without complication) Start:19-Jan-2019 Instruction Type:Patient Education Patient Instructions Indication:Hypothyroid Start:19-Jan-2019 Instruction Type:Provider Instructions for Treatment How to access health informa tion online Indication:Nonsmoker Start:05-Oct-2018 Instruction Type:Patient Education How to access health informa tion online - Detail Indication:Nonsmoker Start:05-Oct-2018 Instruction Type:Patient Education Patient Instructions Indication:Atypical lobular hyperplasia of right breast Start:05-Oct-2018 Instruction Type:Provider Instructions for Treatment How to access health informa tion online Indication:BMI 35.0-35.9,adult Start:16-Sep-2018 Instruction Type:Patient Education How to access health informa tion online - Detail Indication:BMI 35.0-35.9,adult Start:16-Sep-2018 Instruction Type:Patient Education Patient Instructions Indication:BMI 35.0-35.9,adult Start:16-Sep-2018 Instruction Type:Provider Instructions for Treatment How to access health informa tion online Indication:Nonsmoker Start:27-Jun-2018 Instruction Type:Patient Education How to access health informa tion online - Detail Indication:Nonsmoker Start:27-Jun-2018 Instruction Type:Patient Education Patient Instructions Indication:Elevated liver enzymes Start:27-Jun-2018 Instruction Type:Provider Instructions for Treatment How to access health informa tion online Indication:Diabetes mellitus type II, controlled, with no complications (Renamed from Controlled type 2 diabetes mellitus without complication) Start:14-Jun-2018 Instruction Type:Patient Education How to access health informa tion online - Detail Indication:Diabetes mellitus type II, controlled, with no complications (Renamed from Controlled type 2 diabetes mellitus without complication) Start:14-Jun-2018 Instruction Type:Patient Education Patient Instructions Indication:Diabetes mellitus type II, controlled, with no complications (Renamed from Controlled type 2 diabetes mellitus without complication) Start:14-Jun-2018 Instruction Type:Provider Instructions for Treatment How to access health informa tion online Indication:Diabetes mellitus type II, controlled, with no complications (Renamed from Controlled type 2 diabetes mellitus without complication) Start:15-Mar-2018 Instruction Type:Patient Education How to access health informa tion online - Detail Indication:Diabetes mellitus type II, controlled, with no complications (Renamed from Controlled type 2 diabetes mellitus without complication) Start:15-Mar-2018 Instruction Type:Patient Education Patient Instructions Indication:Diabetes mellitus type II, controlled, with no complications (Renamed from Controlled type 2 diabetes mellitus without complication) Start:15-Mar-2018 Instruction Type:Provider Instructions for Treatment How to access health informa tion online Indication:Diabetes mellitus type II, controlled, with no complications (Renamed from Controlled type 2 diabetes mellitus without complication) Start:06-Dec-2017 Instruction Type:Patient Education How to access health informa tion online - Detail Indication:Diabetes mellitus type II, controlled, with no complications (Renamed from Controlled type 2 diabetes mellitus without complication) Start:06-Dec-2017 Instruction Type:Patient Education Patient Instructions Indication:Diabetes mellitus type II, controlled, with no complications (Renamed from Controlled type 2 diabetes mellitus without complication) Start:06-Dec-2017 Instruction Type:Provider Instructions for Treatment How to access health informa tion online Indication:Nonsmoker Start:30-Nov-2017 Instruction Type:Patient Education How to access health informa tion online - Detail Indication:Nonsmoker Start:30-Nov-2017 Instruction Type:Patient Education Patient Instructions Indication:Sinusitis, bacterial Start:30-Nov-2017 Instruction Type:Provider Instructions for Treatment How to access health informa tion online Indication:Diabetes mellitus type II, controlled, with no complications (Renamed from Controlled type 2 diabetes mellitus without complication) Start:10-Aug-2017 Instruction Type:Patient Education How to access health informa tion online - Detail Indication:Diabetes mellitus type II, controlled, with no complications (Renamed from Controlled type 2 diabetes mellitus without complication) Start:10-Aug-2017 Instruction Type:Patient Education Patient Instructions Indication:Diabetes mellitus type II, controlled, with no complications (Renamed from Controlled type 2 diabetes mellitus without complication) Start:10-Aug-2017 Instruction Type:Provider Instructions for Treatment How to access health [employer] online Indication:Uncontrolled type 2 diabetes mellitus without complication, without long-term current use of insulin Start:07-May-2017 Instruction Type:Patient Education How to access health informa tion online - Detail Indication:Uncontrolled type 2 diabetes mellitus without complication, without long-term current use of insulin Start:07-May-2017 Instruction Type:Patient Education Patient Instructions Indication:Uncontrolled type 2 diabetes mellitus without complication, without long-term current use of insulin Start:07-May-2017 Instruction Type:Provider Instructions for Treatment Patient Instructions Indication:Nonsmoker Start:09-Feb-2017 Instruction Type:Provider Instructions for Treatment How to access health informa [employer] online Indication:Uncontrolled type 2 diabetes mellitus without complication, without long-term current use of insulin Start:09-Dec-2016 Instruction Type:Patient Education How to access health informa tion online - Detail Indication:Uncontrolled type 2 diabetes mellitus without complication, without long-term current use of insulin Start:09-Dec-2016 Instruction Type:Patient Education Patient Instructions Indication:Uncontrolled type 2 diabetes mellitus without complication, without long-term current use of insulin Start:09-Dec-2016 Instruction Type:Provider Instructions for Treatment DISCONTINUED - LIPID PANEL ( [id number]) Indication:Hypercholesteremia Start:13-Oct-2016 Instruction Type:Patient Education DISCONTINUED - Glucose, PP/2 Hour (03929) Indication:Family history of diabetes mellitus Start:13-Oct-2016 Instruction Type:Patient Education DISCONTINUED - Hemoglobin Glyclated (HGB A1C) (76210) Indication:Family history of diabetes mellitus Start:13-Oct-2016 Instruction Type:Patient Education How to access health informa [employer] online Indication:Uncontrolled type 2 diabetes mellitus without complication, without long-term current use of insulin Start:13-Oct-2016 Instruction Type:Patient Education How to access health informa tion online - Detail Indication:Uncontrolled type 2 diabetes mellitus without complication, without long-term current use of insulin Start:13-Oct-2016 Instruction Type:Patient Education Patient Instructions Indication:Uncontrolled type 2 diabetes mellitus without complication, without long-term current use of insulin Start:13-Oct-2016 Instruction Type:Provider Instructions for Treatment Patient Instructions Indication:Nonsmoker Start:30-Sep-2016 Instruction Type:Provider Instructions for Treatment How to access health informa tion online Indication:Uncontrolled type 2 diabetes mellitus without complication, without long-term current use of insulin Start:30-Sep-2016 Instruction Type:Patient Education How to access health informa tion online - Detail Indication:Uncontrolled type 2 diabetes mellitus without complication, without long-term current use of insulin Start:30-Sep-2016 Instruction Type:Patient Education Patient Instructions Indication:Hypothyroid Start:28-Aug-2013 Instruction Type:Provider Instructions for Treatment Patient Instructions Indication:Family history of diabetes mellitus Start:06-Mar-2013 Instruction Type:Provider Instructions for Treatment Name Dates Details How to access health informa tion online Indication:Nonsmoker Start:10-Jun-2020 Instruction Type:Patient Education How to access health informa tion online - Detail Indication:Nonsmoker Start:10-Jun-2020 Instruction Type:Patient Education Patient Instructions Indication:BMI 34.0-34.9,adult Start:10-Jun-2020 Instruction Type:Provider Instructions for Treatment How to access health informa tion online Indication:Nonsmoker Start:23-Feb-2020 Instruction Type:Patient Education How to access health informa tion online - Detail Indication:Nonsmoker Start:23-Feb-2020 Instruction Type:Patient Education Patient Instructions Indication:Nonsmoker Start:23-Feb-2020 Instruction Type:Provider Instructions for Treatment How to access health informa tion online Indication:Nonsmoker Start:21-Feb-2020 Instruction Type:Patient Education How to access health informa tion online - Detail Indication:Nonsmoker Start:21-Feb-2020 Instruction Type:Patient Education Patient Instructions Indication:Nonsmoker Start:21-Feb-2020 Instruction Type:Provider Instructions for Treatment How to access health informa tion online Indication:Nonsmoker Start:16-Feb-2020 Instruction Type:Patient Education How to access health informa tion online - Detail Indication:Nonsmoker Start:16-Feb-2020 Instruction Type:Patient Education Patient Instructions Indication:BMI 34.0-34.9,adult Start:16-Feb-2020 Instruction Type:Provider Instructions for Treatment How to access health informa tion online Indication:Nonsmoker Start:14-Dec-2019 Instruction Type:Patient Education How to access health informa tion online - Detail Indication:Nonsmoker Start:14-Dec-2019 Instruction Type:Patient Education Patient Instructions Indication:Cough Start:14-Dec-2019 Instruction Type:Provider Instructions for Treatment How to access health informa tion online Indication:Diabetes mellitus type II, controlled, with no complications (Renamed from Controlled type 2 diabetes mellitus without complication) Start:06-Nov-2019 Instruction Type:Patient Education How to access health informa tion online - Detail Indication:Diabetes mellitus type II, controlled, with no complications (Renamed from Controlled type 2 diabetes mellitus without complication) Start:06-Nov-2019 Instruction Type:Patient Education Patient Instructions Indication:Vitamin D deficiency Start:06-Nov-2019 Instruction Type:Provider Instructions for Treatment How to access health informa tion online Indication:Diabetes mellitus type II, controlled, with no complications (Renamed from Controlled type 2 diabetes mellitus without complication) Start:28-Aug-2019 Instruction Type:Patient Education How to access health informa tion online - Detail Indication:Diabetes mellitus type II, controlled, with no complications (Renamed from Controlled type 2 diabetes mellitus without complication) Start:28-Aug-2019 Instruction Type:Patient Education Patient Instructions Indication:BMI 33.0-33.9,adult Start:28-Aug-2019 Instruction Type:Provider Instructions for Treatment How to access health informa tion online Indication:Nonsmoker Start:03-Apr-2019 Instruction Type:Patient Education How to access health informa tion online - Detail Indication:Nonsmoker Start:03-Apr-2019 Instruction Type:Patient Education Patient Instructions Indication:Nonsmoker Start:03-Apr-2019 Instruction Type:Provider Instructions for Treatment How to access health informa tion online Indication:Diabetes mellitus type 2, uncontrolled (Renamed from Uncontrolled type 2 diabetes mellitus) Start:13-Mar-2019 Instruction Type:Patient Education How to access health informa tion online - Detail Indication:Diabetes mellitus type 2, uncontrolled (Renamed from Uncontrolled type 2 diabetes mellitus) Start:13-Mar-2019 Instruction Type:Patient Education Patient Instructions Indication:BMI 35.0-35.9,adult Start:13-Mar-2019 Instruction Type:Provider Instructions for Treatment How to access health informa tion online Indication:Diabetes mellitus type II, controlled, with no complications (Renamed from Controlled type 2 diabetes mellitus without complication) Start:19-Jan-2019 Instruction Type:Patient Education How to access health informa tion online - Detail Indication:Diabetes mellitus type II, controlled, with no complications (Renamed from Controlled type 2 diabetes mellitus without complication) Start:19-Jan-2019 Instruction Type:Patient Education Patient Instructions Indication:Hypothyroid Start:19-Jan-2019 Instruction Type:Provider Instructions for Treatment How to access health informa tion online Indication:Nonsmoker Start:05-Oct-2018 Instruction Type:Patient Education How to access health informa tion online - Detail Indication:Nonsmoker Start:05-Oct-2018 Instruction Type:Patient Education Patient Instructions Indication:Atypical lobular hyperplasia of right breast Start:05-Oct-2018 Instruction Type:Provider Instructions for Treatment How to access health informa tion online Indication:BMI 35.0-35.9,adult Start:16-Sep-2018 Instruction Type:Patient Education How to access health informa tion online - Detail Indication:BMI 35.0-35.9,adult Start:16-Sep-2018 Instruction Type:Patient Education Patient Instructions Indication:BMI 35.0-35.9,adult Start:16-Sep-2018 Instruction Type:Provider Instructions for Treatment How to access health informa tion online Indication:Nonsmoker Start:27-Jun-2018 Instruction Type:Patient Education How to access health informa tion online - Detail Indication:Nonsmoker Start:27-Jun-2018 Instruction Type:Patient Education Patient Instructions Indication:Elevated liver enzymes Start:27-Jun-2018 Instruction Type:Provider Instructions for Treatment How to access health informa tion online Indication:Diabetes mellitus type II, controlled, with no complications (Renamed from Controlled type 2 diabetes mellitus without complication) Start:14-Jun-2018 Instruction Type:Patient Education How to access health informa tion online - Detail Indication:Diabetes mellitus type II, controlled, with no complications (Renamed from Controlled type 2 diabetes mellitus without complication) Start:14-Jun-2018 Instruction Type:Patient Education Patient Instructions Indication:Diabetes mellitus type II, controlled, with no complications (Renamed from Controlled type 2 diabetes mellitus without complication) Start:14-Jun-2018 Instruction Type:Provider Instructions for Treatment How to access health informa tion online Indication:Diabetes mellitus type II, controlled, with no complications (Renamed from Controlled type 2 diabetes mellitus without complication) Start:15-Mar-2018 Instruction Type:Patient Education How to access health informa tion online - Detail Indication:Diabetes mellitus type II, controlled, with no complications (Renamed from Controlled type 2 diabetes mellitus without complication) Start:15-Mar-2018 Instruction Type:Patient Education Patient Instructions Indication:Diabetes mellitus type II, controlled, with no complications (Renamed from Controlled type 2 diabetes mellitus without complication) Start:15-Mar-2018 Instruction Type:Provider Instructions for Treatment How to access health informa tion online Indication:Diabetes mellitus type II, controlled, with no complications (Renamed from Controlled type 2 diabetes mellitus without complication) Start:06-Dec-2017 Instruction Type:Patient Education How to access health informa tion online - Detail Indication:Diabetes mellitus type II, controlled, with no complications (Renamed from Controlled type 2 diabetes mellitus without complication) Start:06-Dec-2017 Instruction Type:Patient Education Patient Instructions Indication:Diabetes mellitus type II, controlled, with no complications (Renamed from Controlled type 2 diabetes mellitus without complication) Start:06-Dec-2017 Instruction Type:Provider Instructions for Treatment How to access health informa tion online Indication:Nonsmoker Start:30-Nov-2017 Instruction Type:Patient Education How to access health informa tion online - Detail Indication:Nonsmoker Start:30-Nov-2017 Instruction Type:Patient Education Patient Instructions Indication:Sinusitis, bacterial Start:30-Nov-2017 Instruction Type:Provider Instructions for Treatment How to access health informa tion online Indication:Diabetes mellitus type II, controlled, with no complications (Renamed from Controlled type 2 diabetes mellitus without complication) Start:10-Aug-2017 Instruction Type:Patient Education How to access health informa tion online - Detail Indication:Diabetes mellitus type II, controlled, with no complications (Renamed from Controlled type 2 diabetes mellitus without complication) Start:10-Aug-2017 Instruction Type:Patient Education Patient Instructions Indication:Diabetes mellitus type II, controlled, with no complications (Renamed from Controlled type 2 diabetes mellitus without complication) Start:10-Aug-2017 Instruction Type:Provider Instructions for Treatment How to access health informa tion online Indication:Uncontrolled type 2 diabetes mellitus without complication, without long-term current use of insulin Start:07-May-2017 Instruction Type:Patient Education How to access health informa tion online - Detail Indication:Uncontrolled type 2 diabetes mellitus without complication, without long-term current use of insulin Start:07-May-2017 Instruction Type:Patient Education Patient Instructions Indication:Uncontrolled type 2 diabetes mellitus without complication, without long-term current use of insulin Start:07-May-2017 Instruction Type:Provider Instructions for Treatment Patient Instructions Indication:Nonsmoker Start:09-Feb-2017 Instruction Type:Provider Instructions for Treatment How to access health informa [employer] Indication:Uncontrolled type 2 diabetes mellitus without complication, without long-term current use of insulin Start:09-Dec-2016 Instruction Type:Patient Education How to access health informa [employer] online - Detail Indication:Uncontrolled type 2 diabetes mellitus without complication, without long-term current use of insulin Start:09-Dec-2016 Instruction Type:Patient Education Patient Instructions Indication:Uncontrolled type 2 diabetes mellitus without complication, without long-term current use of insulin Start:09-Dec-2016 Instruction Type:Provider Instructions for Treatment DISCONTINUED - LIPID PANEL ( [id number]) Indication:Hypercholesteremia Start:13-Oct-2016 Instruction Type:Patient Education DISCONTINUED - Glucose, PP/2 Hour (95364) Indication:Family history of diabetes mellitus Start:13-Oct-2016 Instruction Type:Patient Education DISCONTINUED - Hemoglobin Glyclated (HGB A1C) (60940) Indication:Family history of diabetes mellitus Start:13-Oct-2016 Instruction Type:Patient Education How to access health [employer] Indication:Uncontrolled type 2 diabetes mellitus without complication, without long-term current use of insulin Start:13-Oct-2016 Instruction Type:Patient Education How to access health informa [employer] online - Detail Indication:Uncontrolled type 2 diabetes mellitus without complication, without long-term current use of insulin Start:13-Oct-2016 Instruction Type:Patient Education Patient Instructions Indication:Uncontrolled type 2 diabetes mellitus without complication, without long-term current use of insulin Start:13-Oct-2016 Instruction Type:Provider Instructions for Treatment Patient Instructions Indication:Nonsmoker Start:30-Sep-2016 Instruction Type:Provider Instructions for Treatment How to access health [employer] Indication:Uncontrolled type 2 diabetes mellitus without complication, without long-term current use of insulin Start:30-Sep-2016 Instruction Type:Patient Education How to access health informa [employer] - Detail Indication:Uncontrolled type 2 diabetes mellitus without complication, without long-term current use of insulin Start:30-Sep-2016 Instruction Type:Patient Education Patient Instructions Indication:Hypothyroid Start:28-Aug-2013 Instruction Type:Provider Instructions for Treatment Patient Instructions Indication:Family history of diabetes mellitus Start:06-Mar-2013 Instruction Type:Provider Instructions for Treatment Name Dates Details How to access health informa tion online Indication:Nonsmoker Start:10-Jun-2020 Instruction Type:Patient Education How to access health informa tion online - Detail Indication:Nonsmoker Start:10-Jun-2020 Instruction Type:Patient Education Patient Instructions Indication:BMI 34.0-34.9,adult Start:10-Jun-2020 Instruction Type:Provider Instructions for Treatment How to access health informa tion online Indication:Nonsmoker Start:23-Feb-2020 Instruction Type:Patient Education How to access health informa tion online - Detail Indication:Nonsmoker Start:23-Feb-2020 Instruction Type:Patient Education Patient Instructions Indication:Nonsmoker Start:23-Feb-2020 Instruction Type:Provider Instructions for Treatment How to access health informa tion online Indication:Nonsmoker Start:21-Feb-2020 Instruction Type:Patient Education How to access health informa tion online - Detail Indication:Nonsmoker Start:21-Feb-2020 Instruction Type:Patient Education Patient Instructions Indication:Nonsmoker Start:21-Feb-2020 Instruction Type:Provider Instructions for Treatment How to access health informa tion online Indication:Nonsmoker Start:16-Feb-2020 Instruction Type:Patient Education How to access health informa tion online - Detail Indication:Nonsmoker Start:16-Feb-2020 Instruction Type:Patient Education Patient Instructions Indication:BMI 34.0-34.9,adult Start:16-Feb-2020 Instruction Type:Provider Instructions for Treatment How to access health informa tion online Indication:Nonsmoker Start:14-Dec-2019 Instruction Type:Patient Education How to access health informa tion online - Detail Indication:Nonsmoker Start:14-Dec-2019 Instruction Type:Patient Education Patient Instructions Indication:Cough Start:14-Dec-2019 Instruction Type:Provider Instructions for Treatment How to access health informa tion online Indication:Diabetes mellitus type II, controlled, with no complications (Renamed from Controlled type 2 diabetes mellitus without complication) Start:06-Nov-2019 Instruction Type:Patient Education How to access health informa tion online - Detail Indication:Diabetes mellitus type II, controlled, with no complications (Renamed from Controlled type 2 diabetes mellitus without complication) Start:06-Nov-2019 Instruction Type:Patient Education Patient Instructions Indication:Vitamin D deficiency Start:06-Nov-2019 Instruction Type:Provider Instructions for Treatment How to access health informa tion online Indication:Diabetes mellitus type II, controlled, with no complications (Renamed from Controlled type 2 diabetes mellitus without complication) Start:28-Aug-2019 Instruction Type:Patient Education How to access health informa tion online - Detail Indication:Diabetes mellitus type II, controlled, with no complications (Renamed from Controlled type 2 diabetes mellitus without complication) Start:28-Aug-2019 Instruction Type:Patient Education Patient Instructions Indication:BMI 33.0-33.9,adult Start:28-Aug-2019 Instruction Type:Provider Instructions for Treatment How to access health informa tion online Indication:Nonsmoker Start:03-Apr-2019 Instruction Type:Patient Education How to access health informa tion online - Detail Indication:Nonsmoker Start:03-Apr-2019 Instruction Type:Patient Education Patient Instructions Indication:Nonsmoker Start:03-Apr-2019 Instruction Type:Provider Instructions for Treatment How to access health informa tion online Indication:Diabetes mellitus type 2, uncontrolled (Renamed from Uncontrolled type 2 diabetes mellitus) Start:13-Mar-2019 Instruction Type:Patient Education How to access health informa tion online - Detail Indication:Diabetes mellitus type 2, uncontrolled (Renamed from Uncontrolled type 2 diabetes mellitus) Start:13-Mar-2019 Instruction Type:Patient Education Patient Instructions Indication:BMI 35.0-35.9,adult Start:13-Mar-2019 Instruction Type:Provider Instructions for Treatment How to access health informa tion online Indication:Diabetes mellitus type II, controlled, with no complications (Renamed from Controlled type 2 diabetes mellitus without complication) Start:19-Jan-2019 Instruction Type:Patient Education How to access health informa tion online - Detail Indication:Diabetes mellitus type II, controlled, with no complications (Renamed from Controlled type 2 diabetes mellitus without complication) Start:19-Jan-2019 Instruction Type:Patient Education Patient Instructions Indication:Hypothyroid Start:19-Jan-2019 Instruction Type:Provider Instructions for Treatment How to access health informa tion online Indication:Nonsmoker Start:05-Oct-2018 Instruction Type:Patient Education How to access health informa tion online - Detail Indication:Nonsmoker Start:05-Oct-2018 Instruction Type:Patient Education Patient Instructions Indication:Atypical lobular hyperplasia of right breast Start:05-Oct-2018 Instruction Type:Provider Instructions for Treatment How to access health informa tion online Indication:BMI 35.0-35.9,adult Start:16-Sep-2018 Instruction Type:Patient Education How to access health informa tion online - Detail Indication:BMI 35.0-35.9,adult Start:16-Sep-2018 Instruction Type:Patient Education Patient Instructions Indication:BMI 35.0-35.9,adult Start:16-Sep-2018 Instruction Type:Provider Instructions for Treatment How to access health informa tion online Indication:Nonsmoker Start:27-Jun-2018 Instruction Type:Patient Education How to access health informa tion online - Detail Indication:Nonsmoker Start:27-Jun-2018 Instruction Type:Patient Education Patient Instructions Indication:Elevated liver enzymes Start:27-Jun-2018 Instruction Type:Provider Instructions for Treatment How to access health informa tion online Indication:Diabetes mellitus type II, controlled, with no complications (Renamed from Controlled type 2 diabetes mellitus without complication) Start:14-Jun-2018 Instruction Type:Patient Education How to access health informa tion online - Detail Indication:Diabetes mellitus type II, controlled, with no complications (Renamed from Controlled type 2 diabetes mellitus without complication) Start:14-Jun-2018 Instruction Type:Patient Education Patient Instructions Indication:Diabetes mellitus type II, controlled, with no complications (Renamed from Controlled type 2 diabetes mellitus without complication) Start:14-Jun-2018 Instruction Type:Provider Instructions for Treatment How to access health informa tion online Indication:Diabetes mellitus type II, controlled, with no complications (Renamed from Controlled type 2 diabetes mellitus without complication) Start:15-Mar-2018 Instruction Type:Patient Education How to access health informa tion online - Detail Indication:Diabetes mellitus type II, controlled, with no complications (Renamed from Controlled type 2 diabetes mellitus without complication) Start:15-Mar-2018 Instruction Type:Patient Education Patient Instructions Indication:Diabetes mellitus type II, controlled, with no complications (Renamed from Controlled type 2 diabetes mellitus without complication) Start:15-Mar-2018 Instruction Type:Provider Instructions for Treatment How to access health informa tion online Indication:Diabetes mellitus type II, controlled, with no complications (Renamed from Controlled type 2 diabetes mellitus without complication) Start:06-Dec-2017 Instruction Type:Patient Education How to access health informa tion online - Detail Indication:Diabetes mellitus type II, controlled, with no complications (Renamed from Controlled type 2 diabetes mellitus without complication) Start:06-Dec-2017 Instruction Type:Patient Education Patient Instructions Indication:Diabetes mellitus type II, controlled, with no complications (Renamed from Controlled type 2 diabetes mellitus without complication) Start:06-Dec-2017 Instruction Type:Provider Instructions for Treatment How to access health informa tion online Indication:Nonsmoker Start:30-Nov-2017 Instruction Type:Patient Education How to access health informa tion online - Detail Indication:Nonsmoker Start:30-Nov-2017 Instruction Type:Patient Education Patient Instructions Indication:Sinusitis, bacterial Start:30-Nov-2017 Instruction Type:Provider Instructions for Treatment How to access health informa tion online Indication:Diabetes mellitus type II, controlled, with no complications (Renamed from Controlled type 2 diabetes mellitus without complication) Start:10-Aug-2017 Instruction Type:Patient Education How to access health informa tion online - Detail Indication:Diabetes mellitus type II, controlled, with no complications (Renamed from Controlled type 2 diabetes mellitus without complication) Start:10-Aug-2017 Instruction Type:Patient Education Patient Instructions Indication:Diabetes mellitus type II, controlled, with no complications (Renamed from Controlled type 2 diabetes mellitus without complication) Start:10-Aug-2017 Instruction Type:Provider Instructions for Treatment How to access health informa tion online Indication:Uncontrolled type 2 diabetes mellitus without complication, without long-term current use of insulin Start:07-May-2017 Instruction Type:Patient Education How to access health informa tion online - Detail Indication:Uncontrolled type 2 diabetes mellitus without complication, without long-term current use of insulin Start:07-May-2017 Instruction Type:Patient Education Patient Instructions Indication:Uncontrolled type 2 diabetes mellitus without complication, without long-term current use of insulin Start:07-May-2017 Instruction Type:Provider Instructions for Treatment Patient Instructions Indication:Nonsmoker Start:09-Feb-2017 Instruction Type:Provider Instructions for Treatment How to access health informa tion online Indication:Uncontrolled type 2 diabetes mellitus without complication, without long-term current use of insulin Start:09-Dec-2016 Instruction Type:Patient Education How to access health informa tion online - Detail Indication:Uncontrolled type 2 diabetes mellitus without complication, without long-term current use of insulin Start:09-Dec-2016 Instruction Type:Patient Education Patient Instructions Indication:Uncontrolled type 2 diabetes mellitus without complication, without long-term current use of insulin Start:09-Dec-2016 Instruction Type:Provider Instructions for Treatment DISCONTINUED - LIPID PANEL ( [id number]) Indication:Hypercholesteremia Start:13-Oct-2016 Instruction Type:Patient Education DISCONTINUED - Glucose, PP/2 Hour (13533) Indication:Family history of diabetes mellitus Start:13-Oct-2016 Instruction Type:Patient Education DISCONTINUED - Hemoglobin Glyclated (HGB A1C) (09362) Indication:Family history of diabetes mellitus Start:13-Oct-2016 Instruction Type:Patient Education How to access health informa [employer] online Indication:Uncontrolled type 2 diabetes mellitus without complication, without long-term current use of insulin Start:13-Oct-2016 Instruction Type:Patient Education How to access health informa tion online - Detail Indication:Uncontrolled type 2 diabetes mellitus without complication, without long-term current use of insulin Start:13-Oct-2016 Instruction Type:Patient Education Patient Instructions Indication:Uncontrolled type 2 diabetes mellitus without complication, without long-term current use of insulin Start:13-Oct-2016 Instruction Type:Provider Instructions for Treatment Patient Instructions Indication:Nonsmoker Start:30-Sep-2016 Instruction Type:Provider Instructions for Treatment How to access health informa tion online Indication:Uncontrolled type 2 diabetes mellitus without complication, without long-term current use of insulin Start:30-Sep-2016 Instruction Type:Patient Education How to access health informa tion online - Detail Indication:Uncontrolled type 2 diabetes mellitus without complication, without long-term current use of insulin Start:30-Sep-2016 Instruction Type:Patient Education Patient Instructions Indication:Hypothyroid Start:28-Aug-2013 Instruction Type:Provider Instructions for Treatment Patient Instructions Indication:Family history of diabetes mellitus Start:06-Mar-2013 Instruction Type:Provider Instructions for Treatment Name Dates Details How to access health informa tion online Indication:Nonsmoker Start:10-Jun-2020 Instruction Type:Patient Education How to access health informa tion online - Detail Indication:Nonsmoker Start:10-Jun-2020 Instruction Type:Patient Education Patient Instructions Indication:BMI 34.0-34.9,adult Start:10-Jun-2020 Instruction Type:Provider Instructions for Treatment How to access health informa tion online Indication:Nonsmoker Start:23-Feb-2020 Instruction Type:Patient Education How to access health informa tion online - Detail Indication:Nonsmoker Start:23-Feb-2020 Instruction Type:Patient Education Patient Instructions Indication:Nonsmoker Start:23-Feb-2020 Instruction Type:Provider Instructions for Treatment How to access health informa tion online Indication:Nonsmoker Start:21-Feb-2020 Instruction Type:Patient Education How to access health informa tion online - Detail Indication:Nonsmoker Start:21-Feb-2020 Instruction Type:Patient Education Patient Instructions Indication:Nonsmoker Start:21-Feb-2020 Instruction Type:Provider Instructions for Treatment How to access health informa tion online Indication:Nonsmoker Start:16-Feb-2020 Instruction Type:Patient Education How to access health informa tion online - Detail Indication:Nonsmoker Start:16-Feb-2020 Instruction Type:Patient Education Patient Instructions Indication:BMI 34.0-34.9,adult Start:16-Feb-2020 Instruction Type:Provider Instructions for Treatment How to access health informa tion online Indication:Nonsmoker Start:14-Dec-2019 Instruction Type:Patient Education How to access health informa tion online - Detail Indication:Nonsmoker Start:14-Dec-2019 Instruction Type:Patient Education Patient Instructions Indication:Cough Start:14-Dec-2019 Instruction Type:Provider Instructions for Treatment How to access health informa tion online Indication:Diabetes mellitus type II, controlled, with no complications (Renamed from Controlled type 2 diabetes mellitus without complication) Start:06-Nov-2019 Instruction Type:Patient Education How to access health informa tion online - Detail Indication:Diabetes mellitus type II, controlled, with no complications (Renamed from Controlled type 2 diabetes mellitus without complication) Start:06-Nov-2019 Instruction Type:Patient Education Patient Instructions Indication:Vitamin D deficiency Start:06-Nov-2019 Instruction Type:Provider Instructions for Treatment How to access health informa tion online Indication:Diabetes mellitus type II, controlled, with no complications (Renamed from Controlled type 2 diabetes mellitus without complication) Start:28-Aug-2019 Instruction Type:Patient Education How to access health informa tion online - Detail Indication:Diabetes mellitus type II, controlled, with no complications (Renamed from Controlled type 2 diabetes mellitus without complication) Start:28-Aug-2019 Instruction Type:Patient Education Patient Instructions Indication:BMI 33.0-33.9,adult Start:28-Aug-2019 Instruction Type:Provider Instructions for Treatment How to access health informa tion online Indication:Nonsmoker Start:03-Apr-2019 Instruction Type:Patient Education How to access health informa tion online - Detail Indication:Nonsmoker Start:03-Apr-2019 Instruction Type:Patient Education Patient Instructions Indication:Nonsmoker Start:03-Apr-2019 Instruction Type:Provider Instructions for Treatment How to access health informa tion online Indication:Diabetes mellitus type 2, uncontrolled (Renamed from Uncontrolled type 2 diabetes mellitus) Start:13-Mar-2019 Instruction Type:Patient Education How to access health informa tion online - Detail Indication:Diabetes mellitus type 2, uncontrolled (Renamed from Uncontrolled type 2 diabetes mellitus) Start:13-Mar-2019 Instruction Type:Patient Education Patient Instructions Indication:BMI 35.0-35.9,adult Start:13-Mar-2019 Instruction Type:Provider Instructions for Treatment How to access health informa tion online Indication:Diabetes mellitus type II, controlled, with no complications (Renamed from Controlled type 2 diabetes mellitus without complication) Start:19-Jan-2019 Instruction Type:Patient Education How to access health informa tion online - Detail Indication:Diabetes mellitus type II, controlled, with no complications (Renamed from Controlled type 2 diabetes mellitus without complication) Start:19-Jan-2019 Instruction Type:Patient Education Patient Instructions Indication:Hypothyroid Start:19-Jan-2019 Instruction Type:Provider Instructions for Treatment How to access health informa tion online Indication:Nonsmoker Start:05-Oct-2018 Instruction Type:Patient Education How to access health informa tion online - Detail Indication:Nonsmoker Start:05-Oct-2018 Instruction Type:Patient Education Patient Instructions Indication:Atypical lobular hyperplasia of right breast Start:05-Oct-2018 Instruction Type:Provider Instructions for Treatment How to access health informa tion online Indication:BMI 35.0-35.9,adult Start:16-Sep-2018 Instruction Type:Patient Education How to access health informa tion online - Detail Indication:BMI 35.0-35.9,adult Start:16-Sep-2018 Instruction Type:Patient Education Patient Instructions Indication:BMI 35.0-35.9,adult Start:16-Sep-2018 Instruction Type:Provider Instructions for Treatment How to access health informa tion online Indication:Nonsmoker Start:27-Jun-2018 Instruction Type:Patient Education How to access health informa tion online - Detail Indication:Nonsmoker Start:27-Jun-2018 Instruction Type:Patient Education Patient Instructions Indication:Elevated liver enzymes Start:27-Jun-2018 Instruction Type:Provider Instructions for Treatment How to access health informa tion online Indication:Diabetes mellitus type II, controlled, with no complications (Renamed from Controlled type 2 diabetes mellitus without complication) Start:14-Jun-2018 Instruction Type:Patient Education How to access health informa tion online - Detail Indication:Diabetes mellitus type II, controlled, with no complications (Renamed from Controlled type 2 diabetes mellitus without complication) Start:14-Jun-2018 Instruction Type:Patient Education Patient Instructions Indication:Diabetes mellitus type II, controlled, with no complications (Renamed from Controlled type 2 diabetes mellitus without complication) Start:14-Jun-2018 Instruction Type:Provider Instructions for Treatment How to access health informa tion online Indication:Diabetes mellitus type II, controlled, with no complications (Renamed from Controlled type 2 diabetes mellitus without complication) Start:15-Mar-2018 Instruction Type:Patient Education How to access health informa tion online - Detail Indication:Diabetes mellitus type II, controlled, with no complications (Renamed from Controlled type 2 diabetes mellitus without complication) Start:15-Mar-2018 Instruction Type:Patient Education Patient Instructions Indication:Diabetes mellitus type II, controlled, with no complications (Renamed from Controlled type 2 diabetes mellitus without complication) Start:15-Mar-2018 Instruction Type:Provider Instructions for Treatment How to access health informa tion online Indication:Diabetes mellitus type II, controlled, with no complications (Renamed from Controlled type 2 diabetes mellitus without complication) Start:06-Dec-2017 Instruction Type:Patient Education How to access health informa tion online - Detail Indication:Diabetes mellitus type II, controlled, with no complications (Renamed from Controlled type 2 diabetes mellitus without complication) Start:06-Dec-2017 Instruction Type:Patient Education Patient Instructions Indication:Diabetes mellitus type II, controlled, with no complications (Renamed from Controlled type 2 diabetes mellitus without complication) Start:06-Dec-2017 Instruction Type:Provider Instructions for Treatment How to access health informa tion online Indication:Nonsmoker Start:30-Nov-2017 Instruction Type:Patient Education How to access health informa tion online - Detail Indication:Nonsmoker Start:30-Nov-2017 Instruction Type:Patient Education Patient Instructions Indication:Sinusitis, bacterial Start:30-Nov-2017 Instruction Type:Provider Instructions for Treatment How to access health informa tion online Indication:Diabetes mellitus type II, controlled, with no complications (Renamed from Controlled type 2 diabetes mellitus without complication) Start:10-Aug-2017 Instruction Type:Patient Education How to access health informa tion online - Detail Indication:Diabetes mellitus type II, controlled, with no complications (Renamed from Controlled type 2 diabetes mellitus without complication) Start:10-Aug-2017 Instruction Type:Patient Education Patient Instructions Indication:Diabetes mellitus type II, controlled, with no complications (Renamed from Controlled type 2 diabetes mellitus without complication) Start:10-Aug-2017 Instruction Type:Provider Instructions for Treatment How to access health informa tion online Indication:Uncontrolled type 2 diabetes mellitus without complication, without long-term current use of insulin Start:07-May-2017 Instruction Type:Patient Education How to access health informa tion online - Detail Indication:Uncontrolled type 2 diabetes mellitus without complication, without long-term current use of insulin Start:07-May-2017 Instruction Type:Patient Education Patient Instructions Indication:Uncontrolled type 2 diabetes mellitus without complication, without long-term current use of insulin Start:07-May-2017 Instruction Type:Provider Instructions for Treatment Patient Instructions Indication:Nonsmoker Start:09-Feb-2017 Instruction Type:Provider Instructions for Treatment How to access health informa [employer] online Indication:Uncontrolled type 2 diabetes mellitus without complication, without long-term current use of insulin Start:09-Dec-2016 Instruction Type:Patient Education How to access health informa tion online - Detail Indication:Uncontrolled type 2 diabetes mellitus without complication, without long-term current use of insulin Start:09-Dec-2016 Instruction Type:Patient Education Patient Instructions Indication:Uncontrolled type 2 diabetes mellitus without complication, without long-term current use of insulin Start:09-Dec-2016 Instruction Type:Provider Instructions for Treatment DISCONTINUED - LIPID PANEL ( [id number]) Indication:Hypercholesteremia Start:13-Oct-2016 Instruction Type:Patient Education DISCONTINUED - Glucose, PP/2 Hour (22793) Indication:Family history of diabetes mellitus Start:13-Oct-2016 Instruction Type:Patient Education DISCONTINUED - Hemoglobin Glyclated (HGB A1C) (30596) Indication:Family history of diabetes mellitus Start:13-Oct-2016 Instruction Type:Patient Education How to access health informa [employer] online Indication:Uncontrolled type 2 diabetes mellitus without complication, without long-term current use of insulin Start:13-Oct-2016 Instruction Type:Patient Education How to access health informa tion online - Detail Indication:Uncontrolled type 2 diabetes mellitus without complication, without long-term current use of insulin Start:13-Oct-2016 Instruction Type:Patient Education Patient Instructions Indication:Uncontrolled type 2 diabetes mellitus without complication, without long-term current use of insulin Start:13-Oct-2016 Instruction Type:Provider Instructions for Treatment Patient Instructions Indication:Nonsmoker Start:30-Sep-2016 Instruction Type:Provider Instructions for Treatment How to access health informa tion online Indication:Uncontrolled type 2 diabetes mellitus without complication, without long-term current use of insulin Start:30-Sep-2016 Instruction Type:Patient Education How to access health informa tion online - Detail Indication:Uncontrolled type 2 diabetes mellitus without complication, without long-term current use of insulin Start:30-Sep-2016 Instruction Type:Patient Education Patient Instructions Indication:Hypothyroid Start:28-Aug-2013 Instruction Type:Provider Instructions for Treatment Patient Instructions Indication:Family history of diabetes mellitus Start:06-Mar-2013 Instruction Type:Provider Instructions for Treatment Name Dates Details How to access health informa tion online Indication:Nonsmoker Start:10-Jun-2020 Instruction Type:Patient Education How to access health informa tion online - Detail Indication:Nonsmoker Start:10-Jun-2020 Instruction Type:Patient Education Patient Instructions Indication:BMI 34.0-34.9,adult Start:10-Jun-2020 Instruction Type:Provider Instructions for Treatment How to access health informa tion online Indication:Nonsmoker Start:23-Feb-2020 Instruction Type:Patient Education How to access health informa tion online - Detail Indication:Nonsmoker Start:23-Feb-2020 Instruction Type:Patient Education Patient Instructions Indication:Nonsmoker Start:23-Feb-2020 Instruction Type:Provider Instructions for Treatment How to access health informa tion online Indication:Nonsmoker Start:21-Feb-2020 Instruction Type:Patient Education How to access health informa tion online - Detail Indication:Nonsmoker Start:21-Feb-2020 Instruction Type:Patient Education Patient Instructions Indication:Nonsmoker Start:21-Feb-2020 Instruction Type:Provider Instructions for Treatment How to access health informa tion online Indication:Nonsmoker Start:16-Feb-2020 Instruction Type:Patient Education How to access health informa tion online - Detail Indication:Nonsmoker Start:16-Feb-2020 Instruction Type:Patient Education Patient Instructions Indication:BMI 34.0-34.9,adult Start:16-Feb-2020 Instruction Type:Provider Instructions for Treatment How to access health informa tion online Indication:Nonsmoker Start:14-Dec-2019 Instruction Type:Patient Education How to access health informa tion online - Detail Indication:Nonsmoker Start:14-Dec-2019 Instruction Type:Patient Education Patient Instructions Indication:Cough Start:14-Dec-2019 Instruction Type:Provider Instructions for Treatment How to access health informa tion online Indication:Diabetes mellitus type II, controlled, with no complications (Renamed from Controlled type 2 diabetes mellitus without complication) Start:06-Nov-2019 Instruction Type:Patient Education How to access health informa tion online - Detail Indication:Diabetes mellitus type II, controlled, with no complications (Renamed from Controlled type 2 diabetes mellitus without complication) Start:06-Nov-2019 Instruction Type:Patient Education Patient Instructions Indication:Vitamin D deficiency Start:06-Nov-2019 Instruction Type:Provider Instructions for Treatment How to access health informa tion online Indication:Diabetes mellitus type II, controlled, with no complications (Renamed from Controlled type 2 diabetes mellitus without complication) Start:28-Aug-2019 Instruction Type:Patient Education How to access health informa tion online - Detail Indication:Diabetes mellitus type II, controlled, with no complications (Renamed from Controlled type 2 diabetes mellitus without complication) Start:28-Aug-2019 Instruction Type:Patient Education Patient Instructions Indication:BMI 33.0-33.9,adult Start:28-Aug-2019 Instruction Type:Provider Instructions for Treatment How to access health informa tion online Indication:Nonsmoker Start:03-Apr-2019 Instruction Type:Patient Education How to access health informa tion online - Detail Indication:Nonsmoker Start:03-Apr-2019 Instruction Type:Patient Education Patient Instructions Indication:Nonsmoker Start:03-Apr-2019 Instruction Type:Provider Instructions for Treatment How to access health informa tion online Indication:Diabetes mellitus type 2, uncontrolled (Renamed from Uncontrolled type 2 diabetes mellitus) Start:13-Mar-2019 Instruction Type:Patient Education How to access health informa tion online - Detail Indication:Diabetes mellitus type 2, uncontrolled (Renamed from Uncontrolled type 2 diabetes mellitus) Start:13-Mar-2019 Instruction Type:Patient Education Patient Instructions Indication:BMI 35.0-35.9,adult Start:13-Mar-2019 Instruction Type:Provider Instructions for Treatment How to access health informa tion online Indication:Diabetes mellitus type II, controlled, with no complications (Renamed from Controlled type 2 diabetes mellitus without complication) Start:19-Jan-2019 Instruction Type:Patient Education How to access health informa tion online - Detail Indication:Diabetes mellitus type II, controlled, with no complications (Renamed from Controlled type 2 diabetes mellitus without complication) Start:19-Jan-2019 Instruction Type:Patient Education Patient Instructions Indication:Hypothyroid Start:19-Jan-2019 Instruction Type:Provider Instructions for Treatment How to access health informa tion online Indication:Nonsmoker Start:05-Oct-2018 Instruction Type:Patient Education How to access health informa tion online - Detail Indication:Nonsmoker Start:05-Oct-2018 Instruction Type:Patient Education Patient Instructions Indication:Atypical lobular hyperplasia of right breast Start:05-Oct-2018 Instruction Type:Provider Instructions for Treatment How to access health informa tion online Indication:BMI 35.0-35.9,adult Start:16-Sep-2018 Instruction Type:Patient Education How to access health informa tion online - Detail Indication:BMI 35.0-35.9,adult Start:16-Sep-2018 Instruction Type:Patient Education Patient Instructions Indication:BMI 35.0-35.9,adult Start:16-Sep-2018 Instruction Type:Provider Instructions for Treatment How to access health informa tion online Indication:Nonsmoker Start:27-Jun-2018 Instruction Type:Patient Education How to access health informa tion online - Detail Indication:Nonsmoker Start:27-Jun-2018 Instruction Type:Patient Education Patient Instructions Indication:Elevated liver enzymes Start:27-Jun-2018 Instruction Type:Provider Instructions for Treatment How to access health informa tion online Indication:Diabetes mellitus type II, controlled, with no complications (Renamed from Controlled type 2 diabetes mellitus without complication) Start:14-Jun-2018 Instruction Type:Patient Education How to access health informa tion online - Detail Indication:Diabetes mellitus type II, controlled, with no complications (Renamed from Controlled type 2 diabetes mellitus without complication) Start:14-Jun-2018 Instruction Type:Patient Education Patient Instructions Indication:Diabetes mellitus type II, controlled, with no complications (Renamed from Controlled type 2 diabetes mellitus without complication) Start:14-Jun-2018 Instruction Type:Provider Instructions for Treatment How to access health informa tion online Indication:Diabetes mellitus type II, controlled, with no complications (Renamed from Controlled type 2 diabetes mellitus without complication) Start:15-Mar-2018 Instruction Type:Patient Education How to access health informa tion online - Detail Indication:Diabetes mellitus type II, controlled, with no complications (Renamed from Controlled type 2 diabetes mellitus without complication) Start:15-Mar-2018 Instruction Type:Patient Education Patient Instructions Indication:Diabetes mellitus type II, controlled, with no complications (Renamed from Controlled type 2 diabetes mellitus without complication) Start:15-Mar-2018 Instruction Type:Provider Instructions for Treatment How to access health informa tion online Indication:Diabetes mellitus type II, controlled, with no complications (Renamed from Controlled type 2 diabetes mellitus without complication) Start:06-Dec-2017 Instruction Type:Patient Education How to access health informa tion online - Detail Indication:Diabetes mellitus type II, controlled, with no complications (Renamed from Controlled type 2 diabetes mellitus without complication) Start:06-Dec-2017 Instruction Type:Patient Education Patient Instructions Indication:Diabetes mellitus type II, controlled, with no complications (Renamed from Controlled type 2 diabetes mellitus without complication) Start:06-Dec-2017 Instruction Type:Provider Instructions for Treatment How to access health informa tion online Indication:Nonsmoker Start:30-Nov-2017 Instruction Type:Patient Education How to access health informa tion online - Detail Indication:Nonsmoker Start:30-Nov-2017 Instruction Type:Patient Education Patient Instructions Indication:Sinusitis, bacterial Start:30-Nov-2017 Instruction Type:Provider Instructions for Treatment How to access health informa tion online Indication:Diabetes mellitus type II, controlled, with no complications (Renamed from Controlled type 2 diabetes mellitus without complication) Start:10-Aug-2017 Instruction Type:Patient Education How to access health informa tion online - Detail Indication:Diabetes mellitus type II, controlled, with no complications (Renamed from Controlled type 2 diabetes mellitus without complication) Start:10-Aug-2017 Instruction Type:Patient Education Patient Instructions Indication:Diabetes mellitus type II, controlled, with no complications (Renamed from Controlled type 2 diabetes mellitus without complication) Start:10-Aug-2017 Instruction Type:Provider Instructions for Treatment How to access health informa tion online Indication:Uncontrolled type 2 diabetes mellitus without complication, without long-term current use of insulin Start:07-May-2017 Instruction Type:Patient Education How to access health informa tion online - Detail Indication:Uncontrolled type 2 diabetes mellitus without complication, without long-term current use of insulin Start:07-May-2017 Instruction Type:Patient Education Patient Instructions Indication:Uncontrolled type 2 diabetes mellitus without complication, without long-term current use of insulin Start:07-May-2017 Instruction Type:Provider Instructions for Treatment Patient Instructions Indication:Nonsmoker Start:09-Feb-2017 Instruction Type:Provider Instructions for Treatment How to access health informa tion online Indication:Uncontrolled type 2 diabetes mellitus without complication, without long-term current use of insulin Start:09-Dec-2016 Instruction Type:Patient Education How to access health informa tion online - Detail Indication:Uncontrolled type 2 diabetes mellitus without complication, without long-term current use of insulin Start:09-Dec-2016 Instruction Type:Patient Education Patient Instructions Indication:Uncontrolled type 2 diabetes mellitus without complication, without long-term current use of insulin Start:09-Dec-2016 Instruction Type:Provider Instructions for Treatment DISCONTINUED - LIPID PANEL ( [id number]) Indication:Hypercholesteremia Start:13-Oct-2016 Instruction Type:Patient Education DISCONTINUED - Glucose, PP/2 Hour (00597) Indication:Family history of diabetes mellitus Start:13-Oct-2016 Instruction Type:Patient Education DISCONTINUED - Hemoglobin Glyclated (HGB A1C) ([id number]) Indication:Family history of diabetes mellitus Start:13-Oct-2016 Instruction Type:Patient Education How to access health informa tion online Indication:Uncontrolled type 2 diabetes mellitus without complication, without long-term current use of insulin Start:13-Oct-2016 Instruction Type:Patient Education How to access health informa tion online - Detail Indication:Uncontrolled type 2 diabetes mellitus without complication, without long-term current use of insulin Start:13-Oct-2016 Instruction Type:Patient Education Patient Instructions Indication:Uncontrolled type 2 diabetes mellitus without complication, without long-term current use of insulin Start:13-Oct-2016 Instruction Type:Provider Instructions for Treatment Patient Instructions Indication:Nonsmoker Start:30-Sep-2016 Instruction Type:Provider Instructions for Treatment How to access health informa tion online Indication:Uncontrolled type 2 diabetes mellitus without complication, without long-term current use of insulin Start:30-Sep-2016 Instruction Type:Patient Education How to access health informa tion online - Detail Indication:Uncontrolled type 2 diabetes mellitus without complication, without long-term current use of insulin Start:30-Sep-2016 Instruction Type:Patient Education Patient Instructions Indication:Hypothyroid Start:28-Aug-2013 Instruction Type:Provider Instructions for Treatment Patient Instructions Indication:Family history of diabetes mellitus Start:06-Mar-2013 Instruction Type:Provider Instructions for Treatment Name Dates Details How to access health informa tion online Indication:Nonsmoker Start:10-Jun-2020 Instruction Type:Patient Education How to access health informa tion online - Detail Indication:Nonsmoker Start:10-Jun-2020 Instruction Type:Patient Education Patient Instructions Indication:BMI 34.0-34.9,adult Start:10-Jun-2020 Instruction Type:Provider Instructions for Treatment How to access health informa tion online Indication:Nonsmoker Start:23-Feb-2020 Instruction Type:Patient Education How to access health informa tion online - Detail Indication:Nonsmoker Start:23-Feb-2020 Instruction Type:Patient Education Patient Instructions Indication:Nonsmoker Start:23-Feb-2020 Instruction Type:Provider Instructions for Treatment How to access health informa tion online Indication:Nonsmoker Start:21-Feb-2020 Instruction Type:Patient Education How to access health informa tion online - Detail Indication:Nonsmoker Start:21-Feb-2020 Instruction Type:Patient Education Patient Instructions Indication:Nonsmoker Start:21-Feb-2020 Instruction Type:Provider Instructions for Treatment How to access health informa tion online Indication:Nonsmoker Start:16-Feb-2020 Instruction Type:Patient Education How to access health informa tion online - Detail Indication:Nonsmoker Start:16-Feb-2020 Instruction Type:Patient Education Patient Instructions Indication:BMI 34.0-34.9,adult Start:16-Feb-2020 Instruction Type:Provider Instructions for Treatment How to access health informa tion online Indication:Nonsmoker Start:14-Dec-2019 Instruction Type:Patient Education How to access health informa tion online - Detail Indication:Nonsmoker Start:14-Dec-2019 Instruction Type:Patient Education Patient Instructions Indication:Cough Start:14-Dec-2019 Instruction Type:Provider Instructions for Treatment How to access health informa tion online Indication:Diabetes mellitus type II, controlled, with no complications (Renamed from Controlled type 2 diabetes mellitus without complication) Start:06-Nov-2019 Instruction Type:Patient Education How to access health informa tion online - Detail Indication:Diabetes mellitus type II, controlled, with no complications (Renamed from Controlled type 2 diabetes mellitus without complication) Start:06-Nov-2019 Instruction Type:Patient Education Patient Instructions Indication:Vitamin D deficiency Start:06-Nov-2019 Instruction Type:Provider Instructions for Treatment How to access health informa tion online Indication:Diabetes mellitus type II, controlled, with no complications (Renamed from Controlled type 2 diabetes mellitus without complication) Start:28-Aug-2019 Instruction Type:Patient Education How to access health informa tion online - Detail Indication:Diabetes mellitus type II, controlled, with no complications (Renamed from Controlled type 2 diabetes mellitus without complication) Start:28-Aug-2019 Instruction Type:Patient Education Patient Instructions Indication:BMI 33.0-33.9,adult Start:28-Aug-2019 Instruction Type:Provider Instructions for Treatment How to access health informa tion online Indication:Nonsmoker Start:03-Apr-2019 Instruction Type:Patient Education How to access health informa tion online - Detail Indication:Nonsmoker Start:03-Apr-2019 Instruction Type:Patient Education Patient Instructions Indication:Nonsmoker Start:03-Apr-2019 Instruction Type:Provider Instructions for Treatment How to access health informa tion online Indication:Diabetes mellitus type 2, uncontrolled (Renamed from Uncontrolled type 2 diabetes mellitus) Start:13-Mar-2019 Instruction Type:Patient Education How to access health informa tion online - Detail Indication:Diabetes mellitus type 2, uncontrolled (Renamed from Uncontrolled type 2 diabetes mellitus) Start:13-Mar-2019 Instruction Type:Patient Education Patient Instructions Indication:BMI 35.0-35.9,adult Start:13-Mar-2019 Instruction Type:Provider Instructions for Treatment How to access health informa tion online Indication:Diabetes mellitus type II, controlled, with no complications (Renamed from Controlled type 2 diabetes mellitus without complication) Start:19-Jan-2019 Instruction Type:Patient Education How to access health informa tion online - Detail Indication:Diabetes mellitus type II, controlled, with no complications (Renamed from Controlled type 2 diabetes mellitus without complication) Start:19-Jan-2019 Instruction Type:Patient Education Patient Instructions Indication:Hypothyroid Start:19-Jan-2019 Instruction Type:Provider Instructions for Treatment How to access health informa tion online Indication:Nonsmoker Start:05-Oct-2018 Instruction Type:Patient Education How to access health informa tion online - Detail Indication:Nonsmoker Start:05-Oct-2018 Instruction Type:Patient Education Patient Instructions Indication:Atypical lobular hyperplasia of right breast Start:05-Oct-2018 Instruction Type:Provider Instructions for Treatment How to access health informa tion online Indication:BMI 35.0-35.9,adult Start:16-Sep-2018 Instruction Type:Patient Education How to access health informa tion online - Detail Indication:BMI 35.0-35.9,adult Start:16-Sep-2018 Instruction Type:Patient Education Patient Instructions Indication:BMI 35.0-35.9,adult Start:16-Sep-2018 Instruction Type:Provider Instructions for Treatment How to access health informa tion online Indication:Nonsmoker Start:27-Jun-2018 Instruction Type:Patient Education How to access health informa tion online - Detail Indication:Nonsmoker Start:27-Jun-2018 Instruction Type:Patient Education Patient Instructions Indication:Elevated liver enzymes Start:27-Jun-2018 Instruction Type:Provider Instructions for Treatment How to access health informa tion online Indication:Diabetes mellitus type II, controlled, with no complications (Renamed from Controlled type 2 diabetes mellitus without complication) Start:14-Jun-2018 Instruction Type:Patient Education How to access health informa tion online - Detail Indication:Diabetes mellitus type II, controlled, with no complications (Renamed from Controlled type 2 diabetes mellitus without complication) Start:14-Jun-2018 Instruction Type:Patient Education Patient Instructions Indication:Diabetes mellitus type II, controlled, with no complications (Renamed from Controlled type 2 diabetes mellitus without complication) Start:14-Jun-2018 Instruction Type:Provider Instructions for Treatment How to access health informa tion online Indication:Diabetes mellitus type II, controlled, with no complications (Renamed from Controlled type 2 diabetes mellitus without complication) Start:15-Mar-2018 Instruction Type:Patient Education How to access health informa tion online - Detail Indication:Diabetes mellitus type II, controlled, with no complications (Renamed from Controlled type 2 diabetes mellitus without complication) Start:15-Mar-2018 Instruction Type:Patient Education Patient Instructions Indication:Diabetes mellitus type II, controlled, with no complications (Renamed from Controlled type 2 diabetes mellitus without complication) Start:15-Mar-2018 Instruction Type:Provider Instructions for Treatment How to access health informa tion online Indication:Diabetes mellitus type II, controlled, with no complications (Renamed from Controlled type 2 diabetes mellitus without complication) Start:06-Dec-2017 Instruction Type:Patient Education How to access health informa tion online - Detail Indication:Diabetes mellitus type II, controlled, with no complications (Renamed from Controlled type 2 diabetes mellitus without complication) Start:06-Dec-2017 Instruction Type:Patient Education Patient Instructions Indication:Diabetes mellitus type II, controlled, with no complications (Renamed from Controlled type 2 diabetes mellitus without complication) Start:06-Dec-2017 Instruction Type:Provider Instructions for Treatment How to access health informa tion online Indication:Nonsmoker Start:30-Nov-2017 Instruction Type:Patient Education How to access health informa tion online - Detail Indication:Nonsmoker Start:30-Nov-2017 Instruction Type:Patient Education Patient Instructions Indication:Sinusitis, bacterial Start:30-Nov-2017 Instruction Type:Provider Instructions for Treatment How to access health informa tion online Indication:Diabetes mellitus type II, controlled, with no complications (Renamed from Controlled type 2 diabetes mellitus without complication) Start:10-Aug-2017 Instruction Type:Patient Education How to access health informa tion online - Detail Indication:Diabetes mellitus type II, controlled, with no complications (Renamed from Controlled type 2 diabetes mellitus without complication) Start:10-Aug-2017 Instruction Type:Patient Education Patient Instructions Indication:Diabetes mellitus type II, controlled, with no complications (Renamed from Controlled type 2 diabetes mellitus without complication) Start:10-Aug-2017 Instruction Type:Provider Instructions for Treatment How to access health informa tion online Indication:Uncontrolled type 2 diabetes mellitus without complication, without long-term current use of insulin Start:07-May-2017 Instruction Type:Patient Education How to access health informa tion online - Detail Indication:Uncontrolled type 2 diabetes mellitus without complication, without long-term current use of insulin Start:07-May-2017 Instruction Type:Patient Education Patient Instructions Indication:Uncontrolled type 2 diabetes mellitus without complication, without long-term current use of insulin Start:07-May-2017 Instruction Type:Provider Instructions for Treatment Patient Instructions Indication:Nonsmoker Start:09-Feb-2017 Instruction Type:Provider Instructions for Treatment How to access health informa tion online Indication:Uncontrolled type 2 diabetes mellitus without complication, without long-term current use of insulin Start:09-Dec-2016 Instruction Type:Patient Education How to access health informa tion online - Detail Indication:Uncontrolled type 2 diabetes mellitus without complication, without long-term current use of insulin Start:09-Dec-2016 Instruction Type:Patient Education Patient Instructions Indication:Uncontrolled type 2 diabetes mellitus without complication, without long-term current use of insulin Start:09-Dec-2016 Instruction Type:Provider Instructions for Treatment DISCONTINUED - LIPID PANEL ( [id number]) Indication:Hypercholesteremia Start:13-Oct-2016 Instruction Type:Patient Education DISCONTINUED - Glucose, PP/2 Hour (89455) Indication:Family history of diabetes mellitus Start:13-Oct-2016 Instruction Type:Patient Education DISCONTINUED - Hemoglobin Glyclated (HGB A1C) ([id number]) Indication:Family history of diabetes mellitus Start:13-Oct-2016 Instruction Type:Patient Education How to access health [employer] online Indication:Uncontrolled type 2 diabetes mellitus without complication, without long-term current use of insulin Start:13-Oct-2016 Instruction Type:Patient Education How to access health informa [employer] online - Detail Indication:Uncontrolled type 2 diabetes mellitus without complication, without long-term current use of insulin Start:13-Oct-2016 Instruction Type:Patient Education Patient Instructions Indication:Uncontrolled type 2 diabetes mellitus without complication, without long-term current use of insulin Start:13-Oct-2016 Instruction Type:Provider Instructions for Treatment Patient Instructions Indication:Nonsmoker Start:30-Sep-2016 Instruction Type:Provider Instructions for Treatment How to access health [employer] online Indication:Uncontrolled type 2 diabetes mellitus without complication, without long-term current use of insulin Start:30-Sep-2016 Instruction Type:Patient Education How to access health informa [employer] online - Detail Indication:Uncontrolled type 2 diabetes mellitus without complication, without long-term current use of insulin Start:30-Sep-2016 Instruction Type:Patient Education Patient Instructions Indication:Hypothyroid Start:28-Aug-2013 Instruction Type:Provider Instructions for Treatment Patient Instructions Indication:Family history of diabetes mellitus Start:06-Mar-2013 Instruction Type:Provider Instructions for Treatment Name Dates Details How to access [employer] online Indication:Nonsmoker Start:03-Apr-2019 Instruction Type:Patient Education How to access health informa [employer] online - Detail Indication:Nonsmoker Start:03-Apr-2019 Instruction Type:Patient Education Patient Instructions Indication:Nonsmoker Start:03-Apr-2019 Instruction Type:Provider Instructions for Treatment How to access health [employer] online Indication:Diabetes mellitus type 2, uncontrolled (Renamed from Uncontrolled type 2 diabetes mellitus) Start:13-Mar-2019 Instruction Type:Patient Education How to access health informa tion online - Detail Indication:Diabetes mellitus type 2, uncontrolled (Renamed from Uncontrolled type 2 diabetes mellitus) Start:13-Mar-2019 Instruction Type:Patient Education Patient Instructions Indication:BMI 35.0-35.9,adult Start:13-Mar-2019 Instruction Type:Provider Instructions for Treatment How to access health informa tion online Indication:Diabetes mellitus type II, controlled, with no complications (Renamed from Controlled type 2 diabetes mellitus without complication) Start:19-Jan-2019 Instruction Type:Patient Education How to access health informa tion online - Detail Indication:Diabetes mellitus type II, controlled, with no complications (Renamed from Controlled type 2 diabetes mellitus without complication) Start:19-Jan-2019 Instruction Type:Patient Education Patient Instructions Indication:Hypothyroid Start:19-Jan-2019 Instruction Type:Provider Instructions for Treatment How to access health informa tion online Indication:Nonsmoker Start:05-Oct-2018 Instruction Type:Patient Education How to access health informa tion online - Detail Indication:Nonsmoker Start:05-Oct-2018 Instruction Type:Patient Education Patient Instructions Indication:Atypical lobular hyperplasia of right breast Start:05-Oct-2018 Instruction Type:Provider Instructions for Treatment How to access health informa tion online Indication:BMI 35.0-35.9,adult Start:16-Sep-2018 Instruction Type:Patient Education How to access health informa tion online - Detail Indication:BMI 35.0-35.9,adult Start:16-Sep-2018 Instruction Type:Patient Education Patient Instructions Indication:BMI 35.0-35.9,adult Start:16-Sep-2018 Instruction Type:Provider Instructions for Treatment How to access health informa tion online Indication:Nonsmoker Start:27-Jun-2018 Instruction Type:Patient Education How to access health informa tion online - Detail Indication:Nonsmoker Start:27-Jun-2018 Instruction Type:Patient Education Patient Instructions Indication:Elevated liver enzymes Start:27-Jun-2018 Instruction Type:Provider Instructions for Treatment How to access health informa tion online Indication:Diabetes mellitus type II, controlled, with no complications (Renamed from Controlled type 2 diabetes mellitus without complication) Start:14-Jun-2018 Instruction Type:Patient Education How to access health informa tion online - Detail Indication:Diabetes mellitus type II, controlled, with no complications (Renamed from Controlled type 2 diabetes mellitus without complication) Start:14-Jun-2018 Instruction Type:Patient Education Patient Instructions Indication:Diabetes mellitus type II, controlled, with no complications (Renamed from Controlled type 2 diabetes mellitus without complication) Start:14-Jun-2018 Instruction Type:Provider Instructions for Treatment How to access health informa tion online Indication:Diabetes mellitus type II, controlled, with no complications (Renamed from Controlled type 2 diabetes mellitus without complication) Start:15-Mar-2018 Instruction Type:Patient Education How to access health informa tion online - Detail Indication:Diabetes mellitus type II, controlled, with no complications (Renamed from Controlled type 2 diabetes mellitus without complication) Start:15-Mar-2018 Instruction Type:Patient Education Patient Instructions Indication:Diabetes mellitus type II, controlled, with no complications (Renamed from Controlled type 2 diabetes mellitus without complication) Start:15-Mar-2018 Instruction Type:Provider Instructions for Treatment How to access health informa tion online Indication:Diabetes mellitus type II, controlled, with no complications (Renamed from Controlled type 2 diabetes mellitus without complication) Start:06-Dec-2017 Instruction Type:Patient Education How to access health informa tion online - Detail Indication:Diabetes mellitus type II, controlled, with no complications (Renamed from Controlled type 2 diabetes mellitus without complication) Start:06-Dec-2017 Instruction Type:Patient Education Patient Instructions Indication:Diabetes mellitus type II, controlled, with no complications (Renamed from Controlled type 2 diabetes mellitus without complication) Start:06-Dec-2017 Instruction Type:Provider Instructions for Treatment How to access health informa tion online Indication:Nonsmoker Start:30-Nov-2017 Instruction Type:Patient Education How to access health informa tion online - Detail Indication:Nonsmoker Start:30-Nov-2017 Instruction Type:Patient Education Patient Instructions Indication:Sinusitis, bacterial Start:30-Nov-2017 Instruction Type:Provider Instructions for Treatment How to access health informa tion online Indication:Diabetes mellitus type II, controlled, with no complications (Renamed from Controlled type 2 diabetes mellitus without complication) Start:10-Aug-2017 Instruction Type:Patient Education How to access health informa tion online - Detail Indication:Diabetes mellitus type II, controlled, with no complications (Renamed from Controlled type 2 diabetes mellitus without complication) Start:10-Aug-2017 Instruction Type:Patient Education Patient Instructions Indication:Diabetes mellitus type II, controlled, with no complications (Renamed from Controlled type 2 diabetes mellitus without complication) Start:10-Aug-2017 Instruction Type:Provider Instructions for Treatment How to access health [employer] online Indication:Uncontrolled type 2 diabetes mellitus without complication, without long-term current use of insulin Start:07-May-2017 Instruction Type:Patient Education How to access health informa tion online - Detail Indication:Uncontrolled type 2 diabetes mellitus without complication, without long-term current use of insulin Start:07-May-2017 Instruction Type:Patient Education Patient Instructions Indication:Uncontrolled type 2 diabetes mellitus without complication, without long-term current use of insulin Start:07-May-2017 Instruction Type:Provider Instructions for Treatment Patient Instructions Indication:Nonsmoker Start:09-Feb-2017 Instruction Type:Provider Instructions for Treatment How to access health informa tion online Indication:Uncontrolled type 2 diabetes mellitus without complication, without long-term current use of insulin Start:09-Dec-2016 Instruction Type:Patient Education How to access health informa tion online - Detail Indication:Uncontrolled type 2 diabetes mellitus without complication, without long-term current use of insulin Start:09-Dec-2016 Instruction Type:Patient Education Patient Instructions Indication:Uncontrolled type 2 diabetes mellitus without complication, without long-term current use of insulin Start:09-Dec-2016 Instruction Type:Provider Instructions for Treatment DISCONTINUED - LIPID PANEL ( [id number]) Indication:Hypercholesteremia Start:13-Oct-2016 Instruction Type:Patient Education DISCONTINUED - Glucose, PP/2 Hour (55653) Indication:Family history of diabetes mellitus Start:13-Oct-2016 Instruction Type:Patient Education DISCONTINUED - Hemoglobin Glyclated (HGB A1C) ([id number]) Indication:Family history of diabetes mellitus Start:13-Oct-2016 Instruction Type:Patient Education How to access health informa tion online Indication:Uncontrolled type 2 diabetes mellitus without complication, without long-term current use of insulin Start:13-Oct-2016 Instruction Type:Patient Education How to access health informa tion online - Detail Indication:Uncontrolled type 2 diabetes mellitus without complication, without long-term current use of insulin Start:13-Oct-2016 Instruction Type:Patient Education Patient Instructions Indication:Uncontrolled type 2 diabetes mellitus without complication, without long-term current use of insulin Start:13-Oct-2016 Instruction Type:Provider Instructions for Treatment Patient Instructions Indication:Nonsmoker Start:30-Sep-2016 Instruction Type:Provider Instructions for Treatment How to access health informa tion online Indication:Uncontrolled type 2 diabetes mellitus without complication, without long-term current use of insulin Start:30-Sep-2016 Instruction Type:Patient Education How to access health informa tion online - Detail Indication:Uncontrolled type 2 diabetes mellitus without complication, without long-term current use of insulin Start:30-Sep-2016 Instruction Type:Patient Education Patient Instructions Indication:Hypothyroid Start:28-Aug-2013 Instruction Type:Provider Instructions for Treatment Patient Instructions Indication:Family history of diabetes mellitus Start:06-Mar-2013 Instruction Type:Provider Instructions for Treatment Name Dates Details How to access health informa tion online Indication:Nonsmoker Start:10-Jun-2020 Instruction Type:Patient Education How to access health informa tion online - Detail Indication:Nonsmoker Start:10-Jun-2020 Instruction Type:Patient Education Patient Instructions Indication:BMI 34.0-34.9,adult Start:10-Jun-2020 Instruction Type:Provider Instructions for Treatment How to access health informa tion online Indication:Nonsmoker Start:23-Feb-2020 Instruction Type:Patient Education How to access health informa tion online - Detail Indication:Nonsmoker Start:23-Feb-2020 Instruction Type:Patient Education Patient Instructions Indication:Nonsmoker Start:23-Feb-2020 Instruction Type:Provider Instructions for Treatment How to access health informa tion online Indication:Nonsmoker Start:21-Feb-2020 Instruction Type:Patient Education How to access health informa tion online - Detail Indication:Nonsmoker Start:21-Feb-2020 Instruction Type:Patient Education Patient Instructions Indication:Nonsmoker Start:21-Feb-2020 Instruction Type:Provider Instructions for Treatment How to access health informa tion online Indication:Nonsmoker Start:16-Feb-2020 Instruction Type:Patient Education How to access health informa tion online - Detail Indication:Nonsmoker Start:16-Feb-2020 Instruction Type:Patient Education Patient Instructions Indication:BMI 34.0-34.9,adult Start:16-Feb-2020 Instruction Type:Provider Instructions for Treatment How to access health informa tion online Indication:Nonsmoker Start:14-Dec-2019 Instruction Type:Patient Education How to access health informa tion online - Detail Indication:Nonsmoker Start:14-Dec-2019 Instruction Type:Patient Education Patient Instructions Indication:Cough Start:14-Dec-2019 Instruction Type:Provider Instructions for Treatment How to access health informa tion online Indication:Diabetes mellitus type II, controlled, with no complications (Renamed from Controlled type 2 diabetes mellitus without complication) Start:06-Nov-2019 Instruction Type:Patient Education How to access health informa tion online - Detail Indication:Diabetes mellitus type II, controlled, with no complications (Renamed from Controlled type 2 diabetes mellitus without complication) Start:06-Nov-2019 Instruction Type:Patient Education Patient Instructions Indication:Vitamin D deficiency Start:06-Nov-2019 Instruction Type:Provider Instructions for Treatment How to access health informa tion online Indication:Diabetes mellitus type II, controlled, with no complications (Renamed from Controlled type 2 diabetes mellitus without complication) Start:28-Aug-2019 Instruction Type:Patient Education How to access health informa tion online - Detail Indication:Diabetes mellitus type II, controlled, with no complications (Renamed from Controlled type 2 diabetes mellitus without complication) Start:28-Aug-2019 Instruction Type:Patient Education Patient Instructions Indication:BMI 33.0-33.9,adult Start:28-Aug-2019 Instruction Type:Provider Instructions for Treatment How to access health informa tion online Indication:Nonsmoker Start:03-Apr-2019 Instruction Type:Patient Education How to access health informa tion online - Detail Indication:Nonsmoker Start:03-Apr-2019 Instruction Type:Patient Education Patient Instructions Indication:Nonsmoker Start:03-Apr-2019 Instruction Type:Provider Instructions for Treatment How to access health informa tion online Indication:Diabetes mellitus type 2, uncontrolled (Renamed from Uncontrolled type 2 diabetes mellitus) Start:13-Mar-2019 Instruction Type:Patient Education How to access health informa tion online - Detail Indication:Diabetes mellitus type 2, uncontrolled (Renamed from Uncontrolled type 2 diabetes mellitus) Start:13-Mar-2019 Instruction Type:Patient Education Patient Instructions Indication:BMI 35.0-35.9,adult Start:13-Mar-2019 Instruction Type:Provider Instructions for Treatment How to access health informa tion online Indication:Diabetes mellitus type II, controlled, with no complications (Renamed from Controlled type 2 diabetes mellitus without complication) Start:19-Jan-2019 Instruction Type:Patient Education How to access health informa tion online - Detail Indication:Diabetes mellitus type II, controlled, with no complications (Renamed from Controlled type 2 diabetes mellitus without complication) Start:19-Jan-2019 Instruction Type:Patient Education Patient Instructions Indication:Hypothyroid Start:19-Jan-2019 Instruction Type:Provider Instructions for Treatment How to access health informa tion online Indication:Nonsmoker Start:05-Oct-2018 Instruction Type:Patient Education How to access health informa tion online - Detail Indication:Nonsmoker Start:05-Oct-2018 Instruction Type:Patient Education Patient Instructions Indication:Atypical lobular hyperplasia of right breast Start:05-Oct-2018 Instruction Type:Provider Instructions for Treatment How to access health informa tion online Indication:BMI 35.0-35.9,adult Start:16-Sep-2018 Instruction Type:Patient Education How to access health informa tion online - Detail Indication:BMI 35.0-35.9,adult Start:16-Sep-2018 Instruction Type:Patient Education Patient Instructions Indication:BMI 35.0-35.9,adult Start:16-Sep-2018 Instruction Type:Provider Instructions for Treatment How to access health informa tion online Indication:Nonsmoker Start:27-Jun-2018 Instruction Type:Patient Education How to access health informa tion online - Detail Indication:Nonsmoker Start:27-Jun-2018 Instruction Type:Patient Education Patient Instructions Indication:Elevated liver enzymes Start:27-Jun-2018 Instruction Type:Provider Instructions for Treatment How to access health informa tion online Indication:Diabetes mellitus type II, controlled, with no complications (Renamed from Controlled type 2 diabetes mellitus without complication) Start:14-Jun-2018 Instruction Type:Patient Education How to access health informa tion online - Detail Indication:Diabetes mellitus type II, controlled, with no complications (Renamed from Controlled type 2 diabetes mellitus without complication) Start:14-Jun-2018 Instruction Type:Patient Education Patient Instructions Indication:Diabetes mellitus type II, controlled, with no complications (Renamed from Controlled type 2 diabetes mellitus without complication) Start:14-Jun-2018 Instruction Type:Provider Instructions for Treatment How to access health informa tion online Indication:Diabetes mellitus type II, controlled, with no complications (Renamed from Controlled type 2 diabetes mellitus without complication) Start:15-Mar-2018 Instruction Type:Patient Education How to access health informa tion online - Detail Indication:Diabetes mellitus type II, controlled, with no complications (Renamed from Controlled type 2 diabetes mellitus without complication) Start:15-Mar-2018 Instruction Type:Patient Education Patient Instructions Indication:Diabetes mellitus type II, controlled, with no complications (Renamed from Controlled type 2 diabetes mellitus without complication) Start:15-Mar-2018 Instruction Type:Provider Instructions for Treatment How to access health informa tion online Indication:Diabetes mellitus type II, controlled, with no complications (Renamed from Controlled type 2 diabetes mellitus without complication) Start:06-Dec-2017 Instruction Type:Patient Education How to access health informa tion online - Detail Indication:Diabetes mellitus type II, controlled, with no complications (Renamed from Controlled type 2 diabetes mellitus without complication) Start:06-Dec-2017 Instruction Type:Patient Education Patient Instructions Indication:Diabetes mellitus type II, controlled, with no complications (Renamed from Controlled type 2 diabetes mellitus without complication) Start:06-Dec-2017 Instruction Type:Provider Instructions for Treatment How to access health informa tion online Indication:Nonsmoker Start:30-Nov-2017 Instruction Type:Patient Education How to access health informa tion online - Detail Indication:Nonsmoker Start:30-Nov-2017 Instruction Type:Patient Education Patient Instructions Indication:Sinusitis, bacterial Start:30-Nov-2017 Instruction Type:Provider Instructions for Treatment How to access health informa tion online Indication:Diabetes mellitus type II, controlled, with no complications (Renamed from Controlled type 2 diabetes mellitus without complication) Start:10-Aug-2017 Instruction Type:Patient Education How to access health informa tion online - Detail Indication:Diabetes mellitus type II, controlled, with no complications (Renamed from Controlled type 2 diabetes mellitus without complication) Start:10-Aug-2017 Instruction Type:Patient Education Patient Instructions Indication:Diabetes mellitus type II, controlled, with no complications (Renamed from Controlled type 2 diabetes mellitus without complication) Start:10-Aug-2017 Instruction Type:Provider Instructions for Treatment How to access health informa tion online Indication:Uncontrolled type 2 diabetes mellitus without complication, without long-term current use of insulin Start:07-May-2017 Instruction Type:Patient Education How to access health informa tion online - Detail Indication:Uncontrolled type 2 diabetes mellitus without complication, without long-term current use of insulin Start:07-May-2017 Instruction Type:Patient Education Patient Instructions Indication:Uncontrolled type 2 diabetes mellitus without complication, without long-term current use of insulin Start:07-May-2017 Instruction Type:Provider Instructions for Treatment Patient Instructions Indication:Nonsmoker Start:09-Feb-2017 Instruction Type:Provider Instructions for Treatment How to access health [employer] online Indication:Uncontrolled type 2 diabetes mellitus without complication, without long-term current use of insulin Start:09-Dec-2016 Instruction Type:Patient Education How to access health informa [employer] online - Detail Indication:Uncontrolled type 2 diabetes mellitus without complication, without long-term current use of insulin Start:09-Dec-2016 Instruction Type:Patient Education Patient Instructions Indication:Uncontrolled type 2 diabetes mellitus without complication, without long-term current use of insulin Start:09-Dec-2016 Instruction Type:Provider Instructions for Treatment DISCONTINUED - LIPID PANEL ( [id number]) Indication:Hypercholesteremia Start:13-Oct-2016 Instruction Type:Patient Education DISCONTINUED - Glucose, PP/2 Hour (10242) Indication:Family history of diabetes mellitus Start:13-Oct-2016 Instruction Type:Patient Education DISCONTINUED - Hemoglobin Glyclated (HGB A1C) (74006) Indication:Family history of diabetes mellitus Start:13-Oct-2016 Instruction Type:Patient Education How to access health [employer] online Indication:Uncontrolled type 2 diabetes mellitus without complication, without long-term current use of insulin Start:13-Oct-2016 Instruction Type:Patient Education How to access health informa [employer] online - Detail Indication:Uncontrolled type 2 diabetes mellitus without complication, without long-term current use of insulin Start:13-Oct-2016 Instruction Type:Patient Education Patient Instructions Indication:Uncontrolled type 2 diabetes mellitus without complication, without long-term current use of insulin Start:13-Oct-2016 Instruction Type:Provider Instructions for Treatment Patient Instructions Indication:Nonsmoker Start:30-Sep-2016 Instruction Type:Provider Instructions for Treatment How to access health [employer] Indication:Uncontrolled type 2 diabetes mellitus without complication, without long-term current use of insulin Start:30-Sep-2016 Instruction Type:Patient Education How to access health informa [employer] - Detail Indication:Uncontrolled type 2 diabetes mellitus without complication, without long-term current use of insulin Start:30-Sep-2016 Instruction Type:Patient Education Patient Instructions Indication:Hypothyroid Start:28-Aug-2013 Instruction Type:Provider Instructions for Treatment Patient Instructions Indication:Family history of diabetes mellitus Start:06-Mar-2013 Instruction Type:Provider Instructions for Treatment Name Dates Details How to access health informa tion online Indication:Nonsmoker Start:03-Apr-2019 Instruction Type:Patient Education How to access health informa tion online - Detail Indication:Nonsmoker Start:03-Apr-2019 Instruction Type:Patient Education Patient Instructions Indication:Nonsmoker Start:03-Apr-2019 Instruction Type:Provider Instructions for Treatment How to access health informa tion online Indication:Diabetes mellitus type 2, uncontrolled (Renamed from Uncontrolled type 2 diabetes mellitus) Start:13-Mar-2019 Instruction Type:Patient Education How to access health informa tion online - Detail Indication:Diabetes mellitus type 2, uncontrolled (Renamed from Uncontrolled type 2 diabetes mellitus) Start:13-Mar-2019 Instruction Type:Patient Education Patient Instructions Indication:BMI 35.0-35.9,adult Start:13-Mar-2019 Instruction Type:Provider Instructions for Treatment How to access health informa tion online Indication:Diabetes mellitus type II, controlled, with no complications (Renamed from Controlled type 2 diabetes mellitus without complication) Start:19-Jan-2019 Instruction Type:Patient Education How to access health informa tion online - Detail Indication:Diabetes mellitus type II, controlled, with no complications (Renamed from Controlled type 2 diabetes mellitus without complication) Start:19-Jan-2019 Instruction Type:Patient Education Patient Instructions Indication:Hypothyroid Start:19-Jan-2019 Instruction Type:Provider Instructions for Treatment How to access health informa tion online Indication:Nonsmoker Start:05-Oct-2018 Instruction Type:Patient Education How to access health informa tion online - Detail Indication:Nonsmoker Start:05-Oct-2018 Instruction Type:Patient Education Patient Instructions Indication:Atypical lobular hyperplasia of right breast Start:05-Oct-2018 Instruction Type:Provider Instructions for Treatment How to access health informa tion online Indication:BMI 35.0-35.9,adult Start:16-Sep-2018 Instruction Type:Patient Education How to access health informa tion online - Detail Indication:BMI 35.0-35.9,adult Start:16-Sep-2018 Instruction Type:Patient Education Patient Instructions Indication:BMI 35.0-35.9,adult Start:16-Sep-2018 Instruction Type:Provider Instructions for Treatment How to access health informa tion online Indication:Nonsmoker Start:27-Jun-2018 Instruction Type:Patient Education How to access health informa tion online - Detail Indication:Nonsmoker Start:27-Jun-2018 Instruction Type:Patient Education Patient Instructions Indication:Elevated liver enzymes Start:27-Jun-2018 Instruction Type:Provider Instructions for Treatment How to access health informa tion online Indication:Diabetes mellitus type II, controlled, with no complications (Renamed from Controlled type 2 diabetes mellitus without complication) Start:14-Jun-2018 Instruction Type:Patient Education How to access health informa tion online - Detail Indication:Diabetes mellitus type II, controlled, with no complications (Renamed from Controlled type 2 diabetes mellitus without complication) Start:14-Jun-2018 Instruction Type:Patient Education Patient Instructions Indication:Diabetes mellitus type II, controlled, with no complications (Renamed from Controlled type 2 diabetes mellitus without complication) Start:14-Jun-2018 Instruction Type:Provider Instructions for Treatment How to access health informa tion online Indication:Diabetes mellitus type II, controlled, with no complications (Renamed from Controlled type 2 diabetes mellitus without complication) Start:15-Mar-2018 Instruction Type:Patient Education How to access health informa tion online - Detail Indication:Diabetes mellitus type II, controlled, with no complications (Renamed from Controlled type 2 diabetes mellitus without complication) Start:15-Mar-2018 Instruction Type:Patient Education Patient Instructions Indication:Diabetes mellitus type II, controlled, with no complications (Renamed from Controlled type 2 diabetes mellitus without complication) Start:15-Mar-2018 Instruction Type:Provider Instructions for Treatment How to access health informa tion online Indication:Diabetes mellitus type II, controlled, with no complications (Renamed from Controlled type 2 diabetes mellitus without complication) Start:06-Dec-2017 Instruction Type:Patient Education How to access health informa tion online - Detail Indication:Diabetes mellitus type II, controlled, with no complications (Renamed from Controlled type 2 diabetes mellitus without complication) Start:06-Dec-2017 Instruction Type:Patient Education Patient Instructions Indication:Diabetes mellitus type II, controlled, with no complications (Renamed from Controlled type 2 diabetes mellitus without complication) Start:06-Dec-2017 Instruction Type:Provider Instructions for Treatment How to access health informa tion online Indication:Nonsmoker Start:30-Nov-2017 Instruction Type:Patient Education How to access health informa tion online - Detail Indication:Nonsmoker Start:30-Nov-2017 Instruction Type:Patient Education Patient Instructions Indication:Sinusitis, bacterial Start:30-Nov-2017 Instruction Type:Provider Instructions for Treatment How to access health informa [employer] online Indication:Diabetes mellitus type II, controlled, with no complications (Renamed from Controlled type 2 diabetes mellitus without complication) Start:10-Aug-2017 Instruction Type:Patient Education How to access health informa tion online - Detail Indication:Diabetes mellitus type II, controlled, with no complications (Renamed from Controlled type 2 diabetes mellitus without complication) Start:10-Aug-2017 Instruction Type:Patient Education Patient Instructions Indication:Diabetes mellitus type II, controlled, with no complications (Renamed from Controlled type 2 diabetes mellitus without complication) Start:10-Aug-2017 Instruction Type:Provider Instructions for Treatment How to access health informa tion online Indication:Uncontrolled type 2 diabetes mellitus without complication, without long-term current use of insulin Start:07-May-2017 Instruction Type:Patient Education How to access health informa tion online - Detail Indication:Uncontrolled type 2 diabetes mellitus without complication, without long-term current use of insulin Start:07-May-2017 Instruction Type:Patient Education Patient Instructions Indication:Uncontrolled type 2 diabetes mellitus without complication, without long-term current use of insulin Start:07-May-2017 Instruction Type:Provider Instructions for Treatment Patient Instructions Indication:Nonsmoker Start:09-Feb-2017 Instruction Type:Provider Instructions for Treatment How to access health informa tion online Indication:Uncontrolled type 2 diabetes mellitus without complication, without long-term current use of insulin Start:09-Dec-2016 Instruction Type:Patient Education How to access health informa tion online - Detail Indication:Uncontrolled type 2 diabetes mellitus without complication, without long-term current use of insulin Start:09-Dec-2016 Instruction Type:Patient Education Patient Instructions Indication:Uncontrolled type 2 diabetes mellitus without complication, without long-term current use of insulin Start:09-Dec-2016 Instruction Type:Provider Instructions for Treatment DISCONTINUED - LIPID PANEL ( [id number]) Indication:Hypercholesteremia Start:13-Oct-2016 Instruction Type:Patient Education DISCONTINUED - Glucose, PP/2 Hour (21315) Indication:Family history of diabetes mellitus Start:13-Oct-2016 Instruction Type:Patient Education DISCONTINUED - Hemoglobin Glyclated (HGB A1C) ([id number]) Indication:Family history of diabetes mellitus Start:13-Oct-2016 Instruction Type:Patient Education How to access health informa tion online Indication:Uncontrolled type 2 diabetes mellitus without complication, without long-term current use of insulin Start:13-Oct-2016 Instruction Type:Patient Education How to access health informa tion online - Detail Indication:Uncontrolled type 2 diabetes mellitus without complication, without long-term current use of insulin Start:13-Oct-2016 Instruction Type:Patient Education Patient Instructions Indication:Uncontrolled type 2 diabetes mellitus without complication, without long-term current use of insulin Start:13-Oct-2016 Instruction Type:Provider Instructions for Treatment Patient Instructions Indication:Nonsmoker Start:30-Sep-2016 Instruction Type:Provider Instructions for Treatment How to access health informa tion online Indication:Uncontrolled type 2 diabetes mellitus without complication, without long-term current use of insulin Start:30-Sep-2016 Instruction Type:Patient Education How to access health informa tion online - Detail Indication:Uncontrolled type 2 diabetes mellitus without complication, without long-term current use of insulin Start:30-Sep-2016 Instruction Type:Patient Education Patient Instructions Indication:Hypothyroid Start:28-Aug-2013 Instruction Type:Provider Instructions for Treatment Patient Instructions Indication:Family history of diabetes mellitus Start:06-Mar-2013 Instruction Type:Provider Instructions for Treatment Name Dates Details Patient Instructions Indication:Acute sinusitis Start:24-Feb-2021 Instruction Type:Provider Instructions for Treatment How to Access Health Informa tion Online using Patient Portal and [employer] Indication:Acute sinusitis Start:24-Feb-2021 Instruction Type:Patient Education How to access health informa tion online Indication:Nonsmoker Start:10-Jun-2020 Instruction Type:Patient Education How to access health informa tion online - Detail Indication:Nonsmoker Start:10-Jun-2020 Instruction Type:Patient Education Patient Instructions Indication:BMI 34.0-34.9,adult Start:10-Jun-2020 Instruction Type:Provider Instructions for Treatment How to access health informa tion online Indication:Nonsmoker Start:23-Feb-2020 Instruction Type:Patient Education How to access health informa tion online - Detail Indication:Nonsmoker Start:23-Feb-2020 Instruction Type:Patient Education Patient Instructions Indication:Nonsmoker Start:23-Feb-2020 Instruction Type:Provider Instructions for Treatment How to access health informa tion online Indication:Nonsmoker Start:21-Feb-2020 Instruction Type:Patient Education How to access health informa tion online - Detail Indication:Nonsmoker Start:21-Feb-2020 Instruction Type:Patient Education Patient Instructions Indication:Nonsmoker Start:21-Feb-2020 Instruction Type:Provider Instructions for Treatment How to access health informa tion online Indication:Nonsmoker Start:16-Feb-2020 Instruction Type:Patient Education How to access health informa tion online - Detail Indication:Nonsmoker Start:16-Feb-2020 Instruction Type:Patient Education Patient Instructions Indication:BMI 34.0-34.9,adult Start:16-Feb-2020 Instruction Type:Provider Instructions for Treatment How to access health informa tion online Indication:Nonsmoker Start:14-Dec-2019 Instruction Type:Patient Education How to access health informa tion online - Detail Indication:Nonsmoker Start:14-Dec-2019 Instruction Type:Patient Education Patient Instructions Indication:Cough Start:14-Dec-2019 Instruction Type:Provider Instructions for Treatment How to access health informa tion online Indication:Diabetes mellitus type II, controlled, with no complications (Renamed from Controlled type 2 diabetes mellitus without complication) Start:06-Nov-2019 Instruction Type:Patient Education How to access health informa tion online - Detail Indication:Diabetes mellitus type II, controlled, with no complications (Renamed from Controlled type 2 diabetes mellitus without complication) Start:06-Nov-2019 Instruction Type:Patient Education Patient Instructions Indication:Vitamin D deficiency Start:06-Nov-2019 Instruction Type:Provider Instructions for Treatment How to access health informa tion online Indication:Diabetes mellitus type II, controlled, with no complications (Renamed from Controlled type 2 diabetes mellitus without complication) Start:28-Aug-2019 Instruction Type:Patient Education How to access health informa tion online - Detail Indication:Diabetes mellitus type II, controlled, with no complications (Renamed from Controlled type 2 diabetes mellitus without complication) Start:28-Aug-2019 Instruction Type:Patient Education Patient Instructions Indication:BMI 33.0-33.9,adult Start:28-Aug-2019 Instruction Type:Provider Instructions for Treatment How to access health informa tion online Indication:Nonsmoker Start:03-Apr-2019 Instruction Type:Patient Education How to access health informa tion online - Detail Indication:Nonsmoker Start:03-Apr-2019 Instruction Type:Patient Education Patient Instructions Indication:Nonsmoker Start:03-Apr-2019 Instruction Type:Provider Instructions for Treatment How to access health informa tion online Indication:Diabetes mellitus type 2, uncontrolled (Renamed from Uncontrolled type 2 diabetes mellitus) Start:13-Mar-2019 Instruction Type:Patient Education How to access health informa tion online - Detail Indication:Diabetes mellitus type 2, uncontrolled (Renamed from Uncontrolled type 2 diabetes mellitus) Start:13-Mar-2019 Instruction Type:Patient Education Patient Instructions Indication:BMI 35.0-35.9,adult Start:13-Mar-2019 Instruction Type:Provider Instructions for Treatment How to access health informa tion online Indication:Diabetes mellitus type II, controlled, with no complications (Renamed from Controlled type 2 diabetes mellitus without complication) Start:19-Jan-2019 Instruction Type:Patient Education How to access health informa tion online - Detail Indication:Diabetes mellitus type II, controlled, with no complications (Renamed from Controlled type 2 diabetes mellitus without complication) Start:19-Jan-2019 Instruction Type:Patient Education Patient Instructions Indication:Hypothyroid Start:19-Jan-2019 Instruction Type:Provider Instructions for Treatment How to access health informa tion online Indication:Nonsmoker Start:05-Oct-2018 Instruction Type:Patient Education How to access health informa tion online - Detail Indication:Nonsmoker Start:05-Oct-2018 Instruction Type:Patient Education Patient Instructions Indication:Atypical lobular hyperplasia of right breast Start:05-Oct-2018 Instruction Type:Provider Instructions for Treatment How to access health informa tion online Indication:BMI 35.0-35.9,adult Start:16-Sep-2018 Instruction Type:Patient Education How to access health informa tion online - Detail Indication:BMI 35.0-35.9,adult Start:16-Sep-2018 Instruction Type:Patient Education Patient Instructions Indication:BMI 35.0-35.9,adult Start:16-Sep-2018 Instruction Type:Provider Instructions for Treatment How to access health informa tion online Indication:Nonsmoker Start:27-Jun-2018 Instruction Type:Patient Education How to access health informa tion online - Detail Indication:Nonsmoker Start:27-Jun-2018 Instruction Type:Patient Education Patient Instructions Indication:Elevated liver enzymes Start:27-Jun-2018 Instruction Type:Provider Instructions for Treatment How to access health informa tion online Indication:Diabetes mellitus type II, controlled, with no complications (Renamed from Controlled type 2 diabetes mellitus without complication) Start:14-Jun-2018 Instruction Type:Patient Education How to access health informa tion online - Detail Indication:Diabetes mellitus type II, controlled, with no complications (Renamed from Controlled type 2 diabetes mellitus without complication) Start:14-Jun-2018 Instruction Type:Patient Education Patient Instructions Indication:Diabetes mellitus type II, controlled, with no complications (Renamed from Controlled type 2 diabetes mellitus without complication) Start:14-Jun-2018 Instruction Type:Provider Instructions for Treatment How to access health informa tion online Indication:Diabetes mellitus type II, controlled, with no complications (Renamed from Controlled type 2 diabetes mellitus without complication) Start:15-Mar-2018 Instruction Type:Patient Education How to access health informa tion online - Detail Indication:Diabetes mellitus type II, controlled, with no complications (Renamed from Controlled type 2 diabetes mellitus without complication) Start:15-Mar-2018 Instruction Type:Patient Education Patient Instructions Indication:Diabetes mellitus type II, controlled, with no complications (Renamed from Controlled type 2 diabetes mellitus without complication) Start:15-Mar-2018 Instruction Type:Provider Instructions for Treatment How to access health informa tion online Indication:Diabetes mellitus type II, controlled, with no complications (Renamed from Controlled type 2 diabetes mellitus without complication) Start:06-Dec-2017 Instruction Type:Patient Education How to access health informa tion online - Detail Indication:Diabetes mellitus type II, controlled, with no complications (Renamed from Controlled type 2 diabetes mellitus without complication) Start:06-Dec-2017 Instruction Type:Patient Education Patient Instructions Indication:Diabetes mellitus type II, controlled, with no complications (Renamed from Controlled type 2 diabetes mellitus without complication) Start:06-Dec-2017 Instruction Type:Provider Instructions for Treatment How to access health informa tion online Indication:Nonsmoker Start:30-Nov-2017 Instruction Type:Patient Education How to access health informa tion online - Detail Indication:Nonsmoker Start:30-Nov-2017 Instruction Type:Patient Education Patient Instructions Indication:Sinusitis, bacterial Start:30-Nov-2017 Instruction Type:Provider Instructions for Treatment How to access health informa tion online Indication:Diabetes mellitus type II, controlled, with no complications (Renamed from Controlled type 2 diabetes mellitus without complication) Start:10-Aug-2017 Instruction Type:Patient Education How to access health informa tion online - Detail Indication:Diabetes mellitus type II, controlled, with no complications (Renamed from Controlled type 2 diabetes mellitus without complication) Start:10-Aug-2017 Instruction Type:Patient Education Patient Instructions Indication:Diabetes mellitus type II, controlled, with no complications (Renamed from Controlled type 2 diabetes mellitus without complication) Start:10-Aug-2017 Instruction Type:Provider Instructions for Treatment How to access health informa [employer] online Indication:Uncontrolled type 2 diabetes mellitus without complication, without long-term current use of insulin Start:07-May-2017 Instruction Type:Patient Education How to access health informa tion online - Detail Indication:Uncontrolled type 2 diabetes mellitus without complication, without long-term current use of insulin Start:07-May-2017 Instruction Type:Patient Education Patient Instructions Indication:Uncontrolled type 2 diabetes mellitus without complication, without long-term current use of insulin Start:07-May-2017 Instruction Type:Provider Instructions for Treatment Patient Instructions Indication:Nonsmoker Start:09-Feb-2017 Instruction Type:Provider Instructions for Treatment How to access health informa tion online Indication:Uncontrolled type 2 diabetes mellitus without complication, without long-term current use of insulin Start:09-Dec-2016 Instruction Type:Patient Education How to access health informa tion online - Detail Indication:Uncontrolled type 2 diabetes mellitus without complication, without long-term current use of insulin Start:09-Dec-2016 Instruction Type:Patient Education Patient Instructions Indication:Uncontrolled type 2 diabetes mellitus without complication, without long-term current use of insulin Start:09-Dec-2016 Instruction Type:Provider Instructions for Treatment DISCONTINUED - LIPID PANEL ( [id number]) Indication:Hypercholesteremia Start:13-Oct-2016 Instruction Type:Patient Education DISCONTINUED - Glucose, PP/2 Hour (85372) Indication:Family history of diabetes mellitus Start:13-Oct-2016 Instruction Type:Patient Education DISCONTINUED - Hemoglobin Glyclated (HGB A1C) (55227) Indication:Family history of diabetes mellitus Start:13-Oct-2016 Instruction Type:Patient Education How to access health informa tion online Indication:Uncontrolled type 2 diabetes mellitus without complication, without long-term current use of insulin Start:13-Oct-2016 Instruction Type:Patient Education How to access health informa tion online - Detail Indication:Uncontrolled type 2 diabetes mellitus without complication, without long-term current use of insulin Start:13-Oct-2016 Instruction Type:Patient Education Patient Instructions Indication:Uncontrolled type 2 diabetes mellitus without complication, without long-term current use of insulin Start:13-Oct-2016 Instruction Type:Provider Instructions for Treatment Patient Instructions Indication:Nonsmoker Start:30-Sep-2016 Instruction Type:Provider Instructions for Treatment How to access health informa tion online Indication:Uncontrolled type 2 diabetes mellitus without complication, without long-term current use of insulin Start:30-Sep-2016 Instruction Type:Patient Education How to access health informa tion online - Detail Indication:Uncontrolled type 2 diabetes mellitus without complication, without long-term current use of insulin Start:30-Sep-2016 Instruction Type:Patient Education Patient Instructions Indication:Hypothyroid Start:28-Aug-2013 Instruction Type:Provider Instructions for Treatment Patient Instructions Indication:Family history of diabetes mellitus Start:06-Mar-2013 Instruction Type:Provider Instructions for Treatment Name Dates Details Patient Instructions Indication:Acute sinusitis Start:24-Feb-2021 Instruction Type:Provider Instructions for Treatment How to Access Health Informa tion Online using Patient Portal and [employer] Apps Indication:Acute sinusitis Start:24-Feb-2021 Instruction Type:Patient Education How to access health informa tion online Indication:Nonsmoker Start:10-Jun-2020 Instruction Type:Patient Education How to access health informa tion online - Detail Indication:Nonsmoker Start:10-Jun-2020 Instruction Type:Patient Education Patient Instructions Indication:BMI 34.0-34.9,adult Start:10-Jun-2020 Instruction Type:Provider Instructions for Treatment How to access health informa tion online Indication:Nonsmoker Start:23-Feb-2020 Instruction Type:Patient Education How to access health informa tion online - Detail Indication:Nonsmoker Start:23-Feb-2020 Instruction Type:Patient Education Patient Instructions Indication:Nonsmoker Start:23-Feb-2020 Instruction Type:Provider Instructions for Treatment How to access health informa tion online Indication:Nonsmoker Start:21-Feb-2020 Instruction Type:Patient Education How to access health informa tion online - Detail Indication:Nonsmoker Start:21-Feb-2020 Instruction Type:Patient Education Patient Instructions Indication:Nonsmoker Start:21-Feb-2020 Instruction Type:Provider Instructions for Treatment How to access health informa tion online Indication:Nonsmoker Start:16-Feb-2020 Instruction Type:Patient Education How to access health informa tion online - Detail Indication:Nonsmoker Start:16-Feb-2020 Instruction Type:Patient Education Patient Instructions Indication:BMI 34.0-34.9,adult Start:16-Feb-2020 Instruction Type:Provider Instructions for Treatment How to access health informa tion online Indication:Nonsmoker Start:14-Dec-2019 Instruction Type:Patient Education How to access health informa tion online - Detail Indication:Nonsmoker Start:14-Dec-2019 Instruction Type:Patient Education Patient Instructions Indication:Cough Start:14-Dec-2019 Instruction Type:Provider Instructions for Treatment How to access health informa tion online Indication:Diabetes mellitus type II, controlled, with no complications (Renamed from Controlled type 2 diabetes mellitus without complication) Start:06-Nov-2019 Instruction Type:Patient Education How to access health informa tion online - Detail Indication:Diabetes mellitus type II, controlled, with no complications (Renamed from Controlled type 2 diabetes mellitus without complication) Start:06-Nov-2019 Instruction Type:Patient Education Patient Instructions Indication:Vitamin D deficiency Start:06-Nov-2019 Instruction Type:Provider Instructions for Treatment How to access health informa tion online Indication:Diabetes mellitus type II, controlled, with no complications (Renamed from Controlled type 2 diabetes mellitus without complication) Start:28-Aug-2019 Instruction Type:Patient Education How to access health informa tion online - Detail Indication:Diabetes mellitus type II, controlled, with no complications (Renamed from Controlled type 2 diabetes mellitus without complication) Start:28-Aug-2019 Instruction Type:Patient Education Patient Instructions Indication:BMI 33.0-33.9,adult Start:28-Aug-2019 Instruction Type:Provider Instructions for Treatment How to access health informa tion online Indication:Nonsmoker Start:03-Apr-2019 Instruction Type:Patient Education How to access health informa tion online - Detail Indication:Nonsmoker Start:03-Apr-2019 Instruction Type:Patient Education Patient Instructions Indication:Nonsmoker Start:03-Apr-2019 Instruction Type:Provider Instructions for Treatment How to access health informa tion online Indication:Diabetes mellitus type 2, uncontrolled (Renamed from Uncontrolled type 2 diabetes mellitus) Start:13-Mar-2019 Instruction Type:Patient Education How to access health informa tion online - Detail Indication:Diabetes mellitus type 2, uncontrolled (Renamed from Uncontrolled type 2 diabetes mellitus) Start:13-Mar-2019 Instruction Type:Patient Education Patient Instructions Indication:BMI 35.0-35.9,adult Start:13-Mar-2019 Instruction Type:Provider Instructions for Treatment How to access health informa tion online Indication:Diabetes mellitus type II, controlled, with no complications (Renamed from Controlled type 2 diabetes mellitus without complication) Start:19-Jan-2019 Instruction Type:Patient Education How to access health informa tion online - Detail Indication:Diabetes mellitus type II, controlled, with no complications (Renamed from Controlled type 2 diabetes mellitus without complication) Start:19-Jan-2019 Instruction Type:Patient Education Patient Instructions Indication:Hypothyroid Start:19-Jan-2019 Instruction Type:Provider Instructions for Treatment How to access health informa tion online Indication:Nonsmoker Start:05-Oct-2018 Instruction Type:Patient Education How to access health informa tion online - Detail Indication:Nonsmoker Start:05-Oct-2018 Instruction Type:Patient Education Patient Instructions Indication:Atypical lobular hyperplasia of right breast Start:05-Oct-2018 Instruction Type:Provider Instructions for Treatment How to access health informa tion online Indication:BMI 35.0-35.9,adult Start:16-Sep-2018 Instruction Type:Patient Education How to access health informa tion online - Detail Indication:BMI 35.0-35.9,adult Start:16-Sep-2018 Instruction Type:Patient Education Patient Instructions Indication:BMI 35.0-35.9,adult Start:16-Sep-2018 Instruction Type:Provider Instructions for Treatment How to access health informa tion online Indication:Nonsmoker Start:27-Jun-2018 Instruction Type:Patient Education How to access health informa tion online - Detail Indication:Nonsmoker Start:27-Jun-2018 Instruction Type:Patient Education Patient Instructions Indication:Elevated liver enzymes Start:27-Jun-2018 Instruction Type:Provider Instructions for Treatment How to access health informa tion online Indication:Diabetes mellitus type II, controlled, with no complications (Renamed from Controlled type 2 diabetes mellitus without complication) Start:14-Jun-2018 Instruction Type:Patient Education How to access health informa tion online - Detail Indication:Diabetes mellitus type II, controlled, with no complications (Renamed from Controlled type 2 diabetes mellitus without complication) Start:14-Jun-2018 Instruction Type:Patient Education Patient Instructions Indication:Diabetes mellitus type II, controlled, with no complications (Renamed from Controlled type 2 diabetes mellitus without complication) Start:14-Jun-2018 Instruction Type:Provider Instructions for Treatment How to access health informa tion online Indication:Diabetes mellitus type II, controlled, with no complications (Renamed from Controlled type 2 diabetes mellitus without complication) Start:15-Mar-2018 Instruction Type:Patient Education How to access health informa tion online - Detail Indication:Diabetes mellitus type II, controlled, with no complications (Renamed from Controlled type 2 diabetes mellitus without complication) Start:15-Mar-2018 Instruction Type:Patient Education Patient Instructions Indication:Diabetes mellitus type II, controlled, with no complications (Renamed from Controlled type 2 diabetes mellitus without complication) Start:15-Mar-2018 Instruction Type:Provider Instructions for Treatment How to access health informa tion online Indication:Diabetes mellitus type II, controlled, with no complications (Renamed from Controlled type 2 diabetes mellitus without complication) Start:06-Dec-2017 Instruction Type:Patient Education How to access health informa tion online - Detail Indication:Diabetes mellitus type II, controlled, with no complications (Renamed from Controlled type 2 diabetes mellitus without complication) Start:06-Dec-2017 Instruction Type:Patient Education Patient Instructions Indication:Diabetes mellitus type II, controlled, with no complications (Renamed from Controlled type 2 diabetes mellitus without complication) Start:06-Dec-2017 Instruction Type:Provider Instructions for Treatment How to access health informa tion online Indication:Nonsmoker Start:30-Nov-2017 Instruction Type:Patient Education How to access health informa tion online - Detail Indication:Nonsmoker Start:30-Nov-2017 Instruction Type:Patient Education Patient Instructions Indication:Sinusitis, bacterial Start:30-Nov-2017 Instruction Type:Provider Instructions for Treatment How to access health informa tion online Indication:Diabetes mellitus type II, controlled, with no complications (Renamed from Controlled type 2 diabetes mellitus without complication) Start:10-Aug-2017 Instruction Type:Patient Education How to access health informa tion online - Detail Indication:Diabetes mellitus type II, controlled, with no complications (Renamed from Controlled type 2 diabetes mellitus without complication) Start:10-Aug-2017 Instruction Type:Patient Education Patient Instructions Indication:Diabetes mellitus type II, controlled, with no complications (Renamed from Controlled type 2 diabetes mellitus without complication) Start:10-Aug-2017 Instruction Type:Provider Instructions for Treatment How to access health informa tion online Indication:Uncontrolled type 2 diabetes mellitus without complication, without long-term current use of insulin Start:07-May-2017 Instruction Type:Patient Education How to access health informa [employer] online - Detail Indication:Uncontrolled type 2 diabetes mellitus without complication, without long-term current use of insulin Start:07-May-2017 Instruction Type:Patient Education Patient Instructions Indication:Uncontrolled type 2 diabetes mellitus without complication, without long-term current use of insulin Start:07-May-2017 Instruction Type:Provider Instructions for Treatment Patient Instructions Indication:Nonsmoker Start:09-Feb-2017 Instruction Type:Provider Instructions for Treatment How to access health informa [employer] online Indication:Uncontrolled type 2 diabetes mellitus without complication, without long-term current use of insulin Start:09-Dec-2016 Instruction Type:Patient Education How to access health informa tion online - Detail Indication:Uncontrolled type 2 diabetes mellitus without complication, without long-term current use of insulin Start:09-Dec-2016 Instruction Type:Patient Education Patient Instructions Indication:Uncontrolled type 2 diabetes mellitus without complication, without long-term current use of insulin Start:09-Dec-2016 Instruction Type:Provider Instructions for Treatment DISCONTINUED - LIPID PANEL ( [id number]) Indication:Hypercholesteremia Start:13-Oct-2016 Instruction Type:Patient Education DISCONTINUED - Glucose, PP/2 Hour (50589) Indication:Family history of diabetes mellitus Start:13-Oct-2016 Instruction Type:Patient Education DISCONTINUED - Hemoglobin Glyclated (HGB A1C) (09251) Indication:Family history of diabetes mellitus Start:13-Oct-2016 Instruction Type:Patient Education How to access health informa [employer] online Indication:Uncontrolled type 2 diabetes mellitus without complication, without long-term current use of insulin Start:13-Oct-2016 Instruction Type:Patient Education How to access health informa tion online - Detail Indication:Uncontrolled type 2 diabetes mellitus without complication, without long-term current use of insulin Start:13-Oct-2016 Instruction Type:Patient Education Patient Instructions Indication:Uncontrolled type 2 diabetes mellitus without complication, without long-term current use of insulin Start:13-Oct-2016 Instruction Type:Provider Instructions for Treatment Patient Instructions Indication:Nonsmoker Start:30-Sep-2016 Instruction Type:Provider Instructions for Treatment How to access health informa tion online Indication:Uncontrolled type 2 diabetes mellitus without complication, without long-term current use of insulin Start:30-Sep-2016 Instruction Type:Patient Education How to access health informa tion online - Detail Indication:Uncontrolled type 2 diabetes mellitus without complication, without long-term current use of insulin Start:30-Sep-2016 Instruction Type:Patient Education Patient Instructions Indication:Hypothyroid Start:28-Aug-2013 Instruction Type:Provider Instructions for Treatment Patient Instructions Indication:Family history of diabetes mellitus Start:06-Mar-2013 Instruction Type:Provider Instructions for Treatment Name Dates Details Patient Instructions Indication:Acute sinusitis Start:24-Feb-2021 Instruction Type:Provider Instructions for Treatment How to Access Health Informa tion Online using Patient Portal and [employer]rd [employer] Apps Indication:Acute sinusitis Start:24-Feb-2021 Instruction Type:Patient Education How to access health informa tion online Indication:Nonsmoker Start:10-Jun-2020 Instruction Type:Patient Education How to access health informa tion online - Detail Indication:Nonsmoker Start:10-Jun-2020 Instruction Type:Patient Education Patient Instructions Indication:BMI 34.0-34.9,adult Start:10-Jun-2020 Instruction Type:Provider Instructions for Treatment How to access health informa tion online Indication:Nonsmoker Start:23-Feb-2020 Instruction Type:Patient Education How to access health informa tion online - Detail Indication:Nonsmoker Start:23-Feb-2020 Instruction Type:Patient Education Patient Instructions Indication:Nonsmoker Start:23-Feb-2020 Instruction Type:Provider Instructions for Treatment How to access health informa tion online Indication:Nonsmoker Start:21-Feb-2020 Instruction Type:Patient Education How to access health informa tion online - Detail Indication:Nonsmoker Start:21-Feb-2020 Instruction Type:Patient Education Patient Instructions Indication:Nonsmoker Start:21-Feb-2020 Instruction Type:Provider Instructions for Treatment How to access health informa tion online Indication:Nonsmoker Start:16-Feb-2020 Instruction Type:Patient Education How to access health informa tion online - Detail Indication:Nonsmoker Start:16-Feb-2020 Instruction Type:Patient Education Patient Instructions Indication:BMI 34.0-34.9,adult Start:16-Feb-2020 Instruction Type:Provider Instructions for Treatment How to access health informa tion online Indication:Nonsmoker Start:14-Dec-2019 Instruction Type:Patient Education How to access health informa tion online - Detail Indication:Nonsmoker Start:14-Dec-2019 Instruction Type:Patient Education Patient Instructions Indication:Cough Start:14-Dec-2019 Instruction Type:Provider Instructions for Treatment How to access health informa tion online Indication:Diabetes mellitus type II, controlled, with no complications (Renamed from Controlled type 2 diabetes mellitus without complication) Start:06-Nov-2019 Instruction Type:Patient Education How to access health informa tion online - Detail Indication:Diabetes mellitus type II, controlled, with no complications (Renamed from Controlled type 2 diabetes mellitus without complication) Start:06-Nov-2019 Instruction Type:Patient Education Patient Instructions Indication:Vitamin D deficiency Start:06-Nov-2019 Instruction Type:Provider Instructions for Treatment How to access health informa tion online Indication:Diabetes mellitus type II, controlled, with no complications (Renamed from Controlled type 2 diabetes mellitus without complication) Start:28-Aug-2019 Instruction Type:Patient Education How to access health informa tion online - Detail Indication:Diabetes mellitus type II, controlled, with no complications (Renamed from Controlled type 2 diabetes mellitus without complication) Start:28-Aug-2019 Instruction Type:Patient Education Patient Instructions Indication:BMI 33.0-33.9,adult Start:28-Aug-2019 Instruction Type:Provider Instructions for Treatment How to access health informa tion online Indication:Nonsmoker Start:03-Apr-2019 Instruction Type:Patient Education How to access health informa tion online - Detail Indication:Nonsmoker Start:03-Apr-2019 Instruction Type:Patient Education Patient Instructions Indication:Nonsmoker Start:03-Apr-2019 Instruction Type:Provider Instructions for Treatment How to access health informa tion online Indication:Diabetes mellitus type 2, uncontrolled (Renamed from Uncontrolled type 2 diabetes mellitus) Start:13-Mar-2019 Instruction Type:Patient Education How to access health informa tion online - Detail Indication:Diabetes mellitus type 2, uncontrolled (Renamed from Uncontrolled type 2 diabetes mellitus) Start:13-Mar-2019 Instruction Type:Patient Education Patient Instructions Indication:BMI 35.0-35.9,adult Start:13-Mar-2019 Instruction Type:Provider Instructions for Treatment How to access health informa tion online Indication:Diabetes mellitus type II, controlled, with no complications (Renamed from Controlled type 2 diabetes mellitus without complication) Start:19-Jan-2019 Instruction Type:Patient Education How to access health informa tion online - Detail Indication:Diabetes mellitus type II, controlled, with no complications (Renamed from Controlled type 2 diabetes mellitus without complication) Start:19-Jan-2019 Instruction Type:Patient Education Patient Instructions Indication:Hypothyroid Start:19-Jan-2019 Instruction Type:Provider Instructions for Treatment How to access health informa tion online Indication:Nonsmoker Start:05-Oct-2018 Instruction Type:Patient Education How to access health informa tion online - Detail Indication:Nonsmoker Start:05-Oct-2018 Instruction Type:Patient Education Patient Instructions Indication:Atypical lobular hyperplasia of right breast Start:05-Oct-2018 Instruction Type:Provider Instructions for Treatment How to access health informa tion online Indication:BMI 35.0-35.9,adult Start:16-Sep-2018 Instruction Type:Patient Education How to access health informa tion online - Detail Indication:BMI 35.0-35.9,adult Start:16-Sep-2018 Instruction Type:Patient Education Patient Instructions Indication:BMI 35.0-35.9,adult Start:16-Sep-2018 Instruction Type:Provider Instructions for Treatment How to access health informa tion online Indication:Nonsmoker Start:27-Jun-2018 Instruction Type:Patient Education How to access health informa tion online - Detail Indication:Nonsmoker Start:27-Jun-2018 Instruction Type:Patient Education Patient Instructions Indication:Elevated liver enzymes Start:27-Jun-2018 Instruction Type:Provider Instructions for Treatment How to access health informa tion online Indication:Diabetes mellitus type II, controlled, with no complications (Renamed from Controlled type 2 diabetes mellitus without complication) Start:14-Jun-2018 Instruction Type:Patient Education How to access health informa tion online - Detail Indication:Diabetes mellitus type II, controlled, with no complications (Renamed from Controlled type 2 diabetes mellitus without complication) Start:14-Jun-2018 Instruction Type:Patient Education Patient Instructions Indication:Diabetes mellitus type II, controlled, with no complications (Renamed from Controlled type 2 diabetes mellitus without complication) Start:14-Jun-2018 Instruction Type:Provider Instructions for Treatment How to access health informa tion online Indication:Diabetes mellitus type II, controlled, with no complications (Renamed from Controlled type 2 diabetes mellitus without complication) Start:15-Mar-2018 Instruction Type:Patient Education How to access health informa tion online - Detail Indication:Diabetes mellitus type II, controlled, with no complications (Renamed from Controlled type 2 diabetes mellitus without complication) Start:15-Mar-2018 Instruction Type:Patient Education Patient Instructions Indication:Diabetes mellitus type II, controlled, with no complications (Renamed from Controlled type 2 diabetes mellitus without complication) Start:15-Mar-2018 Instruction Type:Provider Instructions for Treatment How to access health informa tion online Indication:Diabetes mellitus type II, controlled, with no complications (Renamed from Controlled type 2 diabetes mellitus without complication) Start:06-Dec-2017 Instruction Type:Patient Education How to access health informa tion online - Detail Indication:Diabetes mellitus type II, controlled, with no complications (Renamed from Controlled type 2 diabetes mellitus without complication) Start:06-Dec-2017 Instruction Type:Patient Education Patient Instructions Indication:Diabetes mellitus type II, controlled, with no complications (Renamed from Controlled type 2 diabetes mellitus without complication) Start:06-Dec-2017 Instruction Type:Provider Instructions for Treatment How to access health informa tion online Indication:Nonsmoker Start:30-Nov-2017 Instruction Type:Patient Education How to access health informa tion online - Detail Indication:Nonsmoker Start:30-Nov-2017 Instruction Type:Patient Education Patient Instructions Indication:Sinusitis, bacterial Start:30-Nov-2017 Instruction Type:Provider Instructions for Treatment How to access health informa tion online Indication:Diabetes mellitus type II, controlled, with no complications (Renamed from Controlled type 2 diabetes mellitus without complication) Start:10-Aug-2017 Instruction Type:Patient Education How to access health informa tion online - Detail Indication:Diabetes mellitus type II, controlled, with no complications (Renamed from Controlled type 2 diabetes mellitus without complication) Start:10-Aug-2017 Instruction Type:Patient Education Patient Instructions Indication:Diabetes mellitus type II, controlled, with no complications (Renamed from Controlled type 2 diabetes mellitus without complication) Start:10-Aug-2017 Instruction Type:Provider Instructions for Treatment How to access health informa tion online Indication:Uncontrolled type 2 diabetes mellitus without complication, without long-term current use of insulin Start:07-May-2017 Instruction Type:Patient Education How to access health informa tion online - Detail Indication:Uncontrolled type 2 diabetes mellitus without complication, without long-term current use of insulin Start:07-May-2017 Instruction Type:Patient Education Patient Instructions Indication:Uncontrolled type 2 diabetes mellitus without complication, without long-term current use of insulin Start:07-May-2017 Instruction Type:Provider Instructions for Treatment Patient Instructions Indication:Nonsmoker Start:09-Feb-2017 Instruction Type:Provider Instructions for Treatment How to access health informa [employer] online Indication:Uncontrolled type 2 diabetes mellitus without complication, without long-term current use of insulin Start:09-Dec-2016 Instruction Type:Patient Education How to access health informa tion online - Detail Indication:Uncontrolled type 2 diabetes mellitus without complication, without long-term current use of insulin Start:09-Dec-2016 Instruction Type:Patient Education Patient Instructions Indication:Uncontrolled type 2 diabetes mellitus without complication, without long-term current use of insulin Start:09-Dec-2016 Instruction Type:Provider Instructions for Treatment DISCONTINUED - LIPID PANEL ( 05010) Indication:Hypercholesteremia Start:13-Oct-2016 Instruction Type:Patient Education DISCONTINUED - Glucose, PP/2 Hour (57037) Indication:Family history of diabetes mellitus Start:13-Oct-2016 Instruction Type:Patient Education DISCONTINUED - Hemoglobin Glyclated (HGB A1C) (45209) Indication:Family history of diabetes mellitus Start:13-Oct-2016 Instruction Type:Patient Education How to access health informa [employer] online Indication:Uncontrolled type 2 diabetes mellitus without complication, without long-term current use of insulin Start:13-Oct-2016 Instruction Type:Patient Education How to access health informa [employer] online - Detail Indication:Uncontrolled type 2 diabetes mellitus without complication, without long-term current use of insulin Start:13-Oct-2016 Instruction Type:Patient Education Patient Instructions Indication:Uncontrolled type 2 diabetes mellitus without complication, without long-term current use of insulin Start:13-Oct-2016 Instruction Type:Provider Instructions for Treatment Patient Instructions Indication:Nonsmoker Start:30-Sep-2016 Instruction Type:Provider Instructions for Treatment How to access health informa [employer] online Indication:Uncontrolled type 2 diabetes mellitus without complication, without long-term current use of insulin Start:30-Sep-2016 Instruction Type:Patient Education How to access health informa [employer] online - Detail Indication:Uncontrolled type 2 diabetes mellitus without complication, without long-term current use of insulin Start:30-Sep-2016 Instruction Type:Patient Education Patient Instructions Indication:Hypothyroid Start:28-Aug-2013 Instruction Type:Provider Instructions for Treatment Patient Instructions Indication:Family history of diabetes mellitus Start:06-Mar-2013 Instruction Type:Provider Instructions for Treatment Chief Complaint and Reason for Visit Chief Complaint SCREENING Chief Complaint Admit Date fallMay 31, 2025 10:09 am Additional Source Comments INFORMATION SOURCE (unrecogn ized section and content) DATE CREATED AUTHOR 05/24/2018 [facility] ([place]) DATE CREATED AUTHOR AUTHOR'S ORGANIZ ATION 03/08/2021 [facility] DATE CREATED AUTHOR AUTHOR'S ORGANIZ ATION 01/20/2023 [facility] DATE CREATED AUTHOR AUTHOR'S ORGANIZ ATION 11/03/2024 [facility] DATE CREATED AUTHOR AUTHOR'S ORGANIZ ATION 06/02/2025 [facility] Goals (unrecognized section and content) Goals may be documented in a n alternate sectionGoals may be documented in an alternate sectionGoals may be documented in an alternate section Care Teams (unrecognized sec tion and content) Team Status: Active Member Role Status Dates Dr. Renata Mei DO Family Provider Active ADRIANO Burgess Primary Care Provider Active Team Status: Inactive Member Role Status Dates ADRIANO Burgess Primary Care Provi tree, Attending Provider, Referring Provider Active Nail Galvanizer Relationship Specialty Start Date End Date Renata Mei DO [id number] [facility] [address] [place] [address] PCP - General Internal Medicine 09/16/18 Renetta Najera [address] [place] [address] [phone] Specialty [employer] Obstetrics 12/19/18 Annika Sweeney MD [address] [place] [address] Physician Radiation Oncology 12/20/18 Team Status: Active Member Role/Relationship Status Dates ADRIANO Burgess Primary Care Provider Active Team Status: Inactive Member Role/Relationship Status Dates ADRIANO Burgess Primary Care Provider Active Start: May 31, 2025 End: May 31, 2025 Dr. Kelvin Butt DO Emergency Provider Active Start: May 31, 2025 End: May 31, 2025 Source Comments (unrecognize d section and content) In the event this informatio n is protected by the Federal Confidentiality of Alcohol and Drug Abuse Patient Records regulations: The Federal rules restrict any use of the information to criminally investigate or prosecute any alcohol or drug abuse patient.[facility] FOR RECORDS PERTAINING TO PATIENTS WHO ARE OR HAVE BEEN ENROLLED IN A CHEMICAL DEPENDENCY/SUBSTANCEABUSE PROGRAM, SOME INFORMATION MAY BE OMITTED. This clinical summary was aggregated from multiple sources. Caution should be exercised in using it in the provision of clinical care. This summary normalizes information from multiple sources, and as a consequence, information in this document may materially change the coding, format and clinical context of patient data. In addition, data may be omitted in some cases. CLINICAL DECISIONS SHOULD BE BASED ON THE PRIMARY CLINICAL RECORDS. [facility] [employer] [facility]. provides no warranty or guarantee of the accuracy or completeness of information in this document.
--- OUTSIDE RECORDS SUMMARY | 2025-06-07 03:32 | XMS RPT_ITS | CCD ---
Author Organization [facility] Care Team Providers Care Variety Performer Name Role Phone WALDEMAR ROSA Unavailable Unavailable WALDEMAR ROSA Unavailable Unavailable CiMarcia chapin E Unavailable Waldemar Rosa Unavailable Zee Rivas Unavailable Myra Fowler Unavailable Unavailable Haseeb Sherwood Unavailable Unavailable Unavailable Unavailable Aaron Carmen Unavailable Waldemar Rosa Unavailable [facility] Unavailable Zee Rivas Unavailable Manchak, Federica Unavailable Unavailable Haseeb Sherwood Unavailable Unavailable Unavailable Unavailable Kathleen Miller Unavailable Keeley Saini Unavailable [facility] Unavailable Haseeb Sherwood Unavailable Unavailable Haseeb Brizuela Unavailable Unavailable Madelin Fiore Unavailable Unavailable Manchak, Federica Unavailable Unavailable Fast, Arelis A Unavailable Nellie Knox Unavailable Unavailable Cidari BRICEÑO Carmen Unavailable Kathleen Miller Unavailable Dr. Waldemar Rosa Unavailable Keeley Saini Unavailable [facility] Unavailable Zee Rivas MD Unavailable Manchak WARE FINISHER, Federica Unavailable Unavailable Fast DO, Arelis A Unavailable Haseeb Brizuela LPN Unavailable Unavailable Nellie Knox LPN Unavailable Unavailable Unavailable Unavailable Slarb GENERAL INSPECTOR, Latrice Unavailable Unavailable Presley GENERAL INSPECTOR, Haseeb Unavailable Unavailable Adebayo GENERAL INSPECTOR, Madelin Unavailable Unavailable Aaron Marcia Unavailable Ottoniel WATER FITNESS INSTRUCTOR, Karen Unavailable Ottoniel WATER FITNESS INSTRUCTOR, Karen Unavailable Aaron Marcia Unavailable Daphne WARE FINISHER, Kayela Unavailable Unavailable Ottoniel WATER FITNESS INSTRUCTOR, Karen Unavailable Ottoniel WATER FITNESS INSTRUCTOR, Karen Unavailable Ottoniel WATER FITNESS INSTRUCTOR, Karen Unavailable Kathleen Miller Unavailable Dr. Waldemar Rosa Unavailable Keeley Saini Unavailable [facility] Unavailable Rob CLEMONS, Zee Flores Unavailable Slarb GENERAL INSPECTOR, Latrice Unavailable Unavailable Lisette GENERAL INSPECTOR, Nellie Unavailable Unavailable Juanis WARE FINISHER, Federica Unavailable Unavailable Gelacio GENERAL INSPECTOR, Haseeb Unavailable Unavailable Unavailable Unavailable Ottoniel WATER FITNESS INSTRUCTOR, Karen Attending Unavailable Ottoniel WATER FITNESS INSTRUCTOR, Karen Consulting Unavailable Ottoniel WATER FITNESS INSTRUCTOR, Karen Referring Unavailable Aram, Robert Unavailable Unavailable Flavia Coleman MA Unavailable Unavailable Renata Mei DO Primary Care Provider Renetta Najera Unavailable Patel CLEMONS, Annika Unavailable Ottoniel COLD MILL OPERATOR-CKaren Primary Care Provider Dr. Kelvin Butt DO Emergency Provider Ottoniel, Karen Primary Care Unavailable Ottoniel, Karen [...] sources) Latex Allergy to substance 9 Rash [facility] (1 source) Latex Drug allergy (disorder) 5 [facility] Repository NEGATED: Highlighted row has been ruled [...] 200 mg by mouth as needed. Active Irons 4-Kky-Cxa-Fish Oil (Fish Oil) 500 MG capsule,delayed release(DR/EC) (2 sources) Start: 10-03-20 take 1 capsule by mouth once daily Irons 3-Bvd-Boi-Fish Oil (Fish Oil) 500 MG capsule,delayed release(DR/EC) Active 500 mg PO DAILY October 03, 2018 1:00am SUPPLEMENT Start: 10-03-2018 take 1 capsule by mo [facility] once daily Irons 8-Jqn-Jlw-Fish Oil (Fish Oil) 500 MG capsule,delayed release(DR/EC) Active 500 MG PO DAILY October 03, 2018 1:00am Irons 4-Ogr-Bnp-Fish Oil (Fish Oil) [address] (1 source) Start: 10-03-2018 take 1 capsule by mouth once daily Irons 8-Hso-Ted-Fish Oil (Fish Oil) 500 MG Capsule.Dr Active [...] THYROID Start: 09-26-2018 [facility] Synthroid 25 MCG Oral Tablet [...] capsule by mouth once daily Vitamin D3 54054 UNIT Oral Capsule 1 (one) Capsule Capsule [...] Quantity: 28 {Tablet} Refills: 0 Ordered: 24-Feb-2021 Arleis Chiu DO Start : 24-Feb-2021 End : [...] End: 06-27-2018 Start: 12-06-2017 End: 06-27-2018 Ergocalciferol 52217 UNIT Or al Capsule 1 Capsule twice [...] End: 11-18-2021 Start: 06-10-2020 End: 11-18-2021 Nystop 555919 UNIT/GM Basin Operator al Powder 1 Application bid for [...] 27-Jun-2018 Active take 1 capsule by mo [facility] once daily Vitamin E, dl, acetate, (VITAMIN E) 400 unit capsule Take 400 Units by mouth once daily. Active vitamin E mixed (12 sources) Start: 06-27-2018 Vitamin Pack (20 sources) Vitamin Pack Shanique ctive Comments: Cranberry, Vitamin d3, MV, Irons 3 fish oil, Coq10, Calcium Vitamin Pack Act michael Comments: Cranberry, Vitamin d3, MV, Irons 3 fish oil, Coq10, Calcium Comment on above: Cranberry, Vitamin d 3, MV, Irons 3 fish oil, Coq10, Calcium Problems Active [...] [place] with Dr. 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, [...] Comment on above: attended Jul class with primary special educator, sign up for SEP 11 Disorders [...] Comment on above: attended Jul class with primary special educator, sign up for SEP 11 Unclassified [...] without Contrast n 05-31-2025 Brain/Head without Contrast [facility] Imaging Services [address] [place] [address] Brain/Head without Contrast MR#: [id number] Acct: [id number] Name: VILLALOBOSKAREN Carolina Rep #: [id number] : 1945 F 79 From: Phil Gomez MD PCP: Karen Alcazar, COLD MILL OPERATOR-C Status: REG ER Study: Brain/Head without Contrast Date of Exam: 02/20 Exam# [id number] Ordering Dr: Kelvin Butt DO EXAM: NONCONTRAST [...] CC: ADRIANO Alcazar; Dr. Kelvin Butt DO Intensivist: Signed Normal [facility] Emergency Department Summary on 05-31-2025 Emergency Department Summary [facility] Medical Records Department [address] [place] [address] Emergency Department Summary 05/31/25 MR#: [id number] Acct: [id number] Name: KAREN VILLALOBOS Rep #: [id number] : 1945 79 From: Kelvin Butt DO [...] Patient hit her left face on a oral communication instructor block. Patient denies any loss of consciousness. Patient states she was unable to get up after her fall. Patient denies any paresthesias or weakness. Patient complains of pain over her left shoulder and into the left side of her neck. Patient denies any paresthesias or weakness. Patient denies any other injuries. Tetanus Immunization: Unknown [facility] Medical History (Updated 05/31/25 @ 12:43 by [...] CN's I (more content not included)... Normal [facility] Shoulder min 2 Viewson 05-31 Shoulder min 2 Views [facility] Imaging Services [address] [place], [place] [id number] Shoulder min 2 Views MR#: [id number] Acct: [id number] Name: KAREN VILLALOBOS Rep #: [id number] : 1945 F 79 From: Phil Gomez MD PCP: Karen Alcazar COLD MILL OPERATOR-C Status: REG ER Study: Shoulder min 2 Views Date of Exam: 05/31/25 Exam# [id number] Ordering Dr: Kelvin Butt DO PROCEDURE: SHOULDER [...] time of dictation. Reading Location: [place] CC: COLD MILL OPERATOR-C Karen Alcazar; Dr. Kelvin Butt DO Intensivist: Signed Normal [facility] Sinus/Facial Boneon 05-31-20 Sinus/Facial Bone [facility] Imaging Services [address] [place] [address] Sinus/Facial Bone MR#: [id number] Acct: [id number] Name: KAREN VILLALOBOS Rep #: [id number] : 1945 F 79 From: Phil Gomez MD PCP: ADRIANO Burgess Status: REG ER Study: Sinus/Facial Bone Date of Exam: 05/31/25 Exam# [id number] Ordering Dr: Kelvin Butt DO PROCEDURE: SINUS/FACIAL [...] no underlying fracture. Reading Location: [place] CC: COLD MILL OPERATOR-C Karen Alcazar; Dr. Kelvin Butt DO Intensivist: Signed Normal [facility] Spine Cervical without Contr ason 05-31-2025 Spine Cervical without Contras [facility] Imaging Services [address] [place] [address] Spine Cervical without Contras MR#: [id number] Acct: [id number] Name: KAREN VILLALOBOS Rep #: [id number] : 1945 F 79 From: Alessio Marie MD PCP: ADRIANO Burgess Status: [facility] ER Study: Spine Cervical without Contras Date of Exam: 0 05/31/25 Exam# [id number] Ordering Dr: Kelvin Butt DO EXAM: CT [...] changes as above. Reading Location: [place] CC: COLD MILL OPERATOROmega Alcazar; Dr. Kelvin Butt DO Intensivist: Signed Normal [facility] MR/BMS.BVSon 01-04-2025 MR/BMS.BVS [facility] Vascular Surgery [address] [place] [address] OFFICE VISIT Date of Service: 01/04/25 MR#: [id number] Acct: [id number] Name: KAREN VILLALOBOS Rep #: [id number] : 1945 Provider: TRAMAINE Salmeron Age/Sex: 79/F Location: [facility] Status: Signed Intake Vital Signs 09/25/24 [...] labored, no (more content not included)... Normal [facility] 11-01-2024 CLARENCE Telephone (GABRIELAAMAIRANI) KAREN VILLALOBOS ([id number]) 1945 F Date Time Provider Department 11/01/24 CELEAN KABA During your visit today, we recorded [...] Status:Closed by SHAVONNE ZULUAGA on 11/01/24 Normal [facility] Brain W/WO Contraston 2023 Brain W/WO Contrast [facility] Imaging Services [address] [place] [address] Brain W/WO Contrast MR#: [id number] Acct: [id number] Name: KAREN VILLALOBOS Rep #: [id number] : 1945 F 79 From: Michelle Sutton MD PCP: ADRIANO Burgess Status: REG CLI Study: Brain W/WO Contrast Date of Exam: 10/31/24 Exam# [id number] Ordering Dr: Karen AlcazarC [id number] EXAM: MR HEAD WITHOUT AND WITH INTRAVENOUS [...] 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 Enhanced deep veins and major dural venous sinuses. No enhancing nodules. MRI/Brain W/WO Contrast IMPRESSION: No acute findings in the head/brain. Chronic changes. Electronically Signed: Michelle Sutton MD at 2:10 EST Reading Location ID and State: [facility] / [place] Tel , Service support , CC: ADRIANO Alcazar Intensivist: Signed Normal [facility] CREATININE FINGERSTICKon CREATININE WB < 1.0 Normal 0.55-1.02 [facility] Comment on above: Performed By: #### L 9100.0200 #### [facility] Laboratory [address] [place], [address] EGFR WB > 60.0000 Normal >60 [facility] Comment on above: Performed By: #### L 9100.0200 #### [facility] [address] [place], [address] Carotid Duplex Ultrasoundon 10-09-2024 Carotid Duplex Ultrasound [facility] System Cardiovascular Services [address] [place] [address] Carotid Duplex Ultrasound 10/09/24 1244 MR#: [id number] Acct: [id number] Name: KAREN VILLALOBOS Rep #: [id number] : 1945 79 From: Kelvin Ayala MD Attending Dr: ADRIANO Burgess Status: REG CLI Ordering Dr: Karen Alcazar Date: 10/09/24 Location: [facility] Sex: F C Admitted: Reason For Study: [...] color flow and specral Doppler. Carotid Duplex 03209. Exam performed in department. VL/Carotid Duplex Ultrasound Interpretation Summary Mild (<50%) stenosis right extracranial internal carotid. Moderate (50-69%) stenosis left extracranial internal carotid. Patent and antegrade vertebrals bilaterally. Ordering Physician: Karen Alcazar Referring Physician: Karen Alcazar Performed By: Kiersten Bright RVT 10/09/242054 Date Kelvin Ayala MD CC: COLD MILL OPERATOR-C Karen Alcazar Date Dictated: 10/09/24 1244 Date Transcribed: 10/09/242054 Intensivist: Signed Normal [facility] Brain/Head without Contrasto n 09-25-2024 Brain/Head without Contrast [facility] Imaging Services [address] [place] [address] Brain/Head without Contrast MR#: [id number] Acct: [id number] Name: KAREN VILLALOBOS Rep #: [id number] : 1945 F 79 From: Reva hoang MD PCP: ADRIANO Burgess Status: REG ER Study: Brain/Head without Contrast Date of Exam: 08/30 07/22 Exam# [id number] Ordering Dr: [place] [id number] HISTORY: headache. TECHNIQUE: Multiple axial images were [...] CC: ADRIANO Alcazar; Dr. Lyle Guerrero DO Intensivist: Signed Normal [facility] CBC W/Diff, Automatedon 10-2 PLT EST MOD DEC Normal ADEQ [facility] Comment on above: Order Comment: PLT C LUMPING Performed By: #### L 100.0100 #### [facility] [address] [place], [address] RED CELL MORPH NORM C+C Normal NORM C C [facility] Comment on above: Order Comment: PLT C LUMPING Performed By: #### L 100.0100 #### [facility] [address] [place], [address] SMEAR COMMENT SCANNED Normal [facility] Comment on above: Order Comment: PLT C LUMPING Performed By: #### L 100.0100 #### [facility] [address] [place], [address] Emergency Department Summary on 09-25-2024 Emergency Department Summary [facility] System Medical Records Department [address] [place] [address] Emergency Department Summary 09/25/24 MR#: [id number] Acct: [id number] Name: KAREN VILLALOBOS Rep #: [id number] : 1945 79 From: Lyle Guerrero DO [...] the occasional occipital ache but not headache. [facility] Medical History Diabetes Home Medications ???Medication ???Instructions [...] to pal (more content not included)... Normal [facility] Spine Cervical without Contr ason 09-25-2024 Spine Cervical without Contras [facility] Imaging Services [address] [place] [address] Spine Cervical without Contras MR#: [id number] Acct: [id number] Name: KAREN VILLALOBOS Rep #: [id number] : 1945 F 79 From: Reva hoang MD PCP: Karen Alcazar, COLD MILL OPERATOR-C Status: REG ER Study: Spine Cervical without Contras Date of Exam: Exam# [id number] Ordering Dr: [place] [id number] HISTORY: pain. TECHNIQUE: Helically acquired images were [...] Bryant MD at 13:43 EDT , CC: COLD MILL OPERATORBasimC Karen Alcazar; Dr. Lyle Guerrero DO Intensivist: Signed Normal [facility] SCRN MAMM (CAD)W/SHELIA BILATo n 08-01-2024 SCRN MAMM (CAD)W/SHELIA BILAT [facility] Imaging Services [address] [place] [address] SCRN MAMM (CAD)W/SHELIA BILAT MR#: [id number] Acct: [id number] Name: KAREN VILLALOBOS Rep #: [id number] : 1945 F 79 From: Fernando shaw MD PCP: ADRIANO Burgess Status: [facility] Study: SCRN MAMM (CAD)W/SHELIA BILAT Date of Exam: 02/19 Exam# [id number] Ordering Dr: Karen Alcazar COLD MILL OPERATOR-C [id number] MAMMOGRAPHY - BILATERAL SCREENING REASON FOR EXAM: [...] delay biopsy of a clinically suspicious abnormality. [id number] Electronically Signed: Fernando Ford MD at 13:55 EDT , CC: ADRIANO Alcazar Intensivist: Signed Normal [facility] Blood Glucose , Office ([phone])Ordered By: Flavia Coleman on 07-20-2023 Glucose Glucometer (BldC) [Moles/Vol] 155 1 Normal [facility] Work Phone: HgA1C , Office ([phone])Ordere d By: Flavia Coleman on 07-20-2023 HbA1c (Bld) [Mass fraction] 9.5 % Abnormal 4.6 - 7.1 [facility] Work Phone: CALCIFEDIOL ([phone])Ordered B y: Wind Turbine Machinist on 01-06-2023 25-hydroxyvitamin D [Mass/Vol] 29.7 ng/mL Abnormal 30.0-100.0 [facility]; [facility] Work Phone: CBC, PLATELETS & MANUAL DIFF ([phone])Ordered By: Wind Turbine Machinist on 01-06-2023 Basophils (Bld) [#/Vol] 0.1 10*3/uL [...] (Bld) [#/Vol] 93 10*3/uL Abnormal 150-450 [facility]; [facility] Work Phone: RBC (Bld) [#/Vol] 4.58 10*6/uL Normal 3.77-5.28 [facility] Internal Medicine; [facility] Work Phone: WBC (Bld) [#/Vol] 5.4 10*3/uL Normal 3.4-10.8 [facility] Internal Medicine; [facility] Work Phone: HGB A1C ([phone])Ordered By: S ystem Ticket Maker on 01-06-2023 HbA1c (Bld) [Mass fraction] 8.9 % Abnormal 4.8-5.6 [facility]; [facility] Work Phone: LIPID PANEL ([phone])Ordered B y: Wind Turbine Machinist on 01-06-2023 Cholesterol [Mass/Vol] 187 mg/dL Normal 100-199 [facility] Internal [facility]; [facility] Work Phone: Cholesterol in HDL [Mass/Vol] 56 mg/dL Normal [facility]; [facility] Work Phone: Triglyceride [Mass/Vol] 99 mg/dL Normal 0-149 [facility] Internal Medicine; [facility] Work Phone: LIPID PANEL ([phone]) 18 mg/dL Normal 5-40 [facility]; [facility] Work Phone: LIPID PANEL (19759) 113 mg/dL Abnormal 0-99 [facility] Internal Medicine; [facility] Work Phone: LIPID PANEL ([phone]) 2.0 {ratio} Normal 0.0-3.2 [facility]; [facility] Work Phone: METABOLIC PANEL, COMPREHENSI VE ([phone])Ordered By: Wind Turbine Machinist on 01-06-2023 Albumin [Mass/Vol] 4.5 g/dL Normal 3.7-4.7 [facility] Internal Medicine; [facility] Work Phone: Albumin/Globulin [Mass ratio] 1.7 {ratio} Normal 1.2-2.2 [facility]; [facility] Work Phone: ALP [Catalytic activity/Vol] 101 U/L Normal 44-121 [facility]; [facility] Work Phone: ALT [Catalytic activity/Vol] 45 U/L Abnormal 0-32 [facility] Internal Medicine; [facility] Work Phone: AST [Catalytic activity/Vol] 52 U/L Abnormal 0-40 [facility]; [facility] Work Phone: Bilirubin [Mass/Vol] 0.5 mg/dL Normal 0.0-1.2 [facility]; [facility] Work Phone: Calcium [Mass/Vol] 9.8 mg/dL Normal 8.7-10.3 [facility] Internal Medicine; [facility] Work Phone: Chloride [Moles/Vol] 102 mmol/L Normal 96-106 [facility] rehensive Internal Medicine; [facility] Work Phone: CO2 [Moles/Vol] 20 mmol/L Normal 20-29 [facility] Internal Medicine; [facility] Work Phone: Creatinine [Mass/Vol] 0.73 mg/dL Normal 0.57-1.00 [facility] prehensive Internal Medicine; [facility] Internal Medicine Work Phone: Globulin (S) [Mass/Vol] 2.7 g/dL Normal 1.5-4.5 C [facility] Internal Medicine; [facility] Internal Medicine Work Phone: Glucose [Mass/Vol] 176 mg/dL Abnormal 70-99 [facility] Internal Medicine; [facility] Internal Medicine Work Phone: Potassium [Moles/Vol] 4.6 mmol/L Normal 3.5-5.2 [facility] prehensive Internal Medicine; [facility] Work Phone: Protein [Mass/Vol] 7.2 g/dL Normal 6.0-8.5 [facility]; [facility] Work Phone: Sodium [Moles/Vol] 139 mmol/L Normal 134-144 [facility]; [facility] Work Phone: Urea nitrogen [Mass/Vol] 12 mg/dL Normal 8-27 [facility]; [facility] Work Phone: Urea nitrogen/Creatinine [Mass ratio] 16 mg/mg Normal 12-28 [facility]; [facility] Work Phone: METABOLIC PANEL, COMPREHENSIVE ([phone]) 85 mL/min/1.[address] [facility] Internal Medicine; [facility] Work Phone: TSH (THYROID STIMULATING HOR BARRON) ([phone])Ordered By: Wind Turbine Machinist on 01-06-2023 TSH Qn 3.720 {uIU/mL} Normal 0.450-4.50 0 [facility]; [facility] Work Phone: Blood Glucose , Office ([phone])Ordered By: Latrice Levy on 09-22-2022 Glucose Glucometer (BldC) [Moles/Vol] 178 1 Normal [facility]; [facility] Work Phone: HgA1C , Office ([phone])Ordere d By: Latrice Levy on 09-22-2022 HbA1c (Bld) [Mass fraction] 8.6 % Abnormal 4.6 - 7.1 [facility]; [facility] Work Phone: Blood Glucose , Office ([phone])Ordered By: Federica Olivarez on 02-27-2022 Glucose Glucometer (BldC) [Moles/Vol] 216 1 Normal [facility]; [facility] Work Phone: Comment on above: non-fastin HgA1C , Office ([phone])Ordere d By: Haseeb Brizuela on 02-27-2022 HbA1c (Bld) [Mass fraction] 8.2 % Abnormal 4.6 - 7.1 [facility]; [facility] Work Phone: CBC & PLATELETS (AUTO) ([phone])Ordered By: Wind Turbine Machinist on 02-24-2022 Erythrocyte distribution width (RBC) [Ratio] 13.1 % Normal 11.7-15.4 [facility] Internal Medicine; [facility] Work Phone: Comment on above: January 2022; PATIENT WAS FASTINGPERFORMED BY: CB [facility] [id number] [address]hee RoadDublin [place] [id number] Hematocrit (Bld) [Volume fraction] 41.3 % Normal 34.0-46.6 [facility]; [facility] Work Phone: Comment on above: January 2022; PATIENT WAS FASTINGPERFORMED BY: CB [facility] [id number] [address] RoadDublin [place] [id number] Hemoglobin (Bld) [Mass/Vol] 13.8 g/dL Normal 11.1-15.9 [facility]; [facility] Work Phone: Comment on above: January 2022; PATIENT WAS FASTINGPERFORMED BY: CB [facility] [id number]Dublin [place] [id number] MCH (RBC) [Entitic mass] 29.7 pg Normal 26.6-33.0 [facility]; [facility] Work Phone: Comment on above: January 2022; PATIENT WAS FASTINGPERFORMED BY: CB [facility] [id number]Dublin [place] [id number] MCHC (RBC) [Mass/Vol] 33.4 g/dL Normal 31.5-35.7 [facility]; [facility] Work Phone: Comment on above: January 2022; PATIENT WAS FASTINGPERFORMED BY: CB [facility] [id number]Dublin [place] [id number] MCV (RBC) [Entitic vol] 89 fL Normal 79-97 [facility] Internal Medicine; [facility] Work Phone: Comment on above: January 2022; PATIENT WAS FASTINGPERFORMED BY: CB [facility] [id number] [address]Dublin [place] [id number] Platelets (Bld) [#/Vol] 98 10*3/uL Abnormal 150-450 [facility] Internal Medicine; [facility] Work Phone: Comment on above: January 2022; PATIENT WAS FASTINGPERFORMED BY: CB [facility] [id number]bl[address] [place] [id number] RBC (Bld) [#/Vol] 4.65 10*6/uL Normal 3.77-5.28 [facility] Internal Medicine; [facility] Work Phone: Comment on above: January 2022; PATIENT WAS FASTINGPERFORMED BY: [facility] [id number] [facility] [place] [id number] WBC (Bld) [#/Vol] 6.6 10*3/uL Normal 3.4-10.8 [facility]; [facility] Work Phone: Comment on above: Verified by repeat analysis January 2022; PATIENT WAS FASTINGPERFORMED BY: [facility] [id number] [facility] [id number] HEPATIC FUNCTION PANEL ([phone])Ordered By: Wind Turbine Machinist on 02-24-2022 Albumin [Mass/Vol] 4.2 g/dL Normal 3.7-4.7 [facility]; [facility] Work Phone: Comment on above: January 2022; PATIENT WAS FASTINGPERFORMED BY: [facility] [id number] [facility] [id number] ALP [Catalytic activity/Vol] 99 U/L Normal 44-121 [facility]; [facility] Work Phone: Comment on above: January 2022; PATIENT WAS FASTINGPERFORMED BY: [facility] Ohgwwl[address] [facility] [place] [id number] ALT [Catalytic activity/Vol] 39 U/L Abnormal 0-32 [facility]; [facility] Work Phone: Comment on above: January 2022; PATIENT WAS FASTINGPERFORMED BY: [facility] Cbwrtt2374 [address] [facility] HospitalDublin [place] [id number] AST [Catalytic activity/Vol] 40 U/L Normal 0-40 [facility]; [facility] Work Phone: Comment on above: January 2022; PATIENT WAS FASTINGPERFORMED BY: [facility] Syrmmu1922 Mc[address] RoadAshe Memorial Hospitalin [place] [id number] Bilirubin [Mass/Vol] 0.5 mg/dL Normal 0.0-1.2 Comp [facility]erensive [facility]; [facility] Work Phone: Comment on above: January 2022; PATIENT WAS FASTINGPERFORMED BY: CB [facility] Pikvbw6626 [address] RoadDublin [place] [id number] Bilirubin.direct [Mass/Vol] 0.14 mg/dL Normal 0.00-0.40 [facility]; [facility] Work Phone: Comment on above: January 2022; PATIENT WAS FASTINGPERFORMED BY: CB [facility] Suertb8390 [address] [facility]in [place] [id number] Protein [Mass/Vol] 7.3 g/dL Normal 6.0-8.5 [facility] Internal Medicine; [facility] Work Phone: Comment on above: January 2022; PATIENT WAS FASTINGPERFORMED BY: [facility] Fjifyk7440 [address] [facility] [id number] Blood Glucose , Office (5996 2)Ordered By: Latrice Levy on 11-18-2021 Glucose Glucometer (BldC) [Moles/Vol] 138 1 Normal [facility]; [facility] Work Phone: HgA1C , Office ([phone])Ordere d By: Latrice Levy on 11-18-2021 HbA1c (Bld) [Mass fraction] 6.8 % Normal 4.6 - 7.1 [facility]; [facility] Work Phone: CALCIFEDIOL ([phone])Ordered B y: Wind Turbine Machinist on 11-12-2021 25-hydroxyvitamin D [Mass/Vol] 41.9 ng/mL Normal 30.0-100.0 [facility]; [facility] Work Phone: Comment on above: Vitamin D deficiency has been defined by the [place] ofMedicine and an Endocrine Society practice guideline as alevel of serum 25-OH vitamin D less than 20 ng/mL (1,2).The Endocrine Society went on to further define vitamin Dinsufficiency as a level between 21 and 29 ng/mL (2).1. IOM (Sherman of Medicine). 2010. Dietary reference intakes for calcium and D. [place]: The National Academies Press.2. Ace MF, Lurdes WELLS, Cynthia COFFMAN, et al. Evaluation, treatment, and prevention of vitamin D deficiency: an Endocrine Society clinical practice guideline. JCEM. 2010; 96(7):1911-30. Nov 12; PATIENT WAS FASTINGPERFORMED BY: CB [facility] Gkifdu0536 [address] RoadDublin [place] [id number] CBC & PLATELETS (AUTO) (8502 7)Ordered By: Wind Turbine Machinist on 11-12-2021 Erythrocyte distribution width (RBC) [Ratio] 12.9 % Normal 11.7-15.4 [facility]; [facility] Work Phone: Comment on above: Nov 12; PATIENT WAS FASTINGPERFORMED BY: CB [facility] Wtbadu0856 [address] RoadDublin [place] [id number] Hematocrit (Bld) [Volume fraction] 39.2 % Normal 34.0-46.6 [facility]; [facility] Work Phone: Comment on above: Nov 12; PATIENT WAS FASTINGPERFORMED BY: CB [facility] Gkxxfc2807 [address] RoadDublin [place] [id number] Hemoglobin (Bld) [Mass/Vol] 13.3 g/dL Normal 11.1-15.9 [facility]; [facility] Work Phone: Comment on above: Nov 12; PATIENT WAS FASTINGPERFORMED BY: CB [facility] Vuwovl9857 [address] RoadDublin [place] [id number] MCH (RBC) [Entitic mass] 29.9 pg Normal 26.6-33.0 [facility]; [facility] Work Phone: Comment on above: Nov 12; PATIENT WAS FASTINGPERFORMED BY: CB [facility] Fmazfy7652 [address] RoadDublin [place] [id number] MCHC (RBC) [Mass/Vol] 33.9 g/dL Normal 31.5-35.7 [facility] prehensive Internal Medicine; [facility] Work Phone: Comment on above: Nov 12; PATIENT WAS FASTINGPERFORMED BY: CB [facility] Wcoyly8942 [address] RoadDublin [place] [id number] MCV (RBC) [Entitic vol] 88 fL Normal 79-97 [facility]ensive [facility]; [facility] Work Phone: Comment on above: Nov 12; PATIENT WAS FASTINGPERFORMED BY: CB [facility] Jkghop1435 [address] RoadDublin [place] [id number] Platelets (Bld) [#/Vol] 119 10*3/uL Abnormal 150-450 [facility]; [facility] Work Phone: Comment on above: Nov 12; PATIENT WAS FASTINGPERFORMED BY: CB [facility] Bslinm2561 [address] RoadDublin [place] [id number] RBC (Bld) [#/Vol] 4.45 10*6/uL Normal 3.77-5.28 [facility]ensive [facility]; [facility] Work Phone: Comment on above: Nov 12; PATIENT WAS FASTINGPERFORMED BY: CB [facility] Fkabac8803 [address] RoadDublin [place] [id number] WBC (Bld) [#/Vol] 5.7 10*3/uL Normal 3.4-10.8 [facility] Internal Medicine; [facility] Work Phone: Comment on above: Nov 12; PATIENT WAS FASTINGPERFORMED BY: CB [facility] Txixea3246 [address] RoadDublin [place] [id number] LIPID PANEL (98403)Ordered B y: Wind Turbine Machinist on 11-12-2021 Cholesterol [Mass/Vol] 177 mg/dL Normal 100-199 [facility]erensive [facility]; [facility] Work Phone: Comment on above: Nov 12 2021; PATIENT WAS FASTINGPERFORMED BY: CB [facility] Wkjxnd4631 [address] RoadDublin [place] [id number] Cholesterol in HDL [Mass/Vol] 54 mg/dL Normal [facility]; [facility] Work Phone: Comment on above: Nov 12 2021; PATIENT WAS FASTINGPERFORMED BY: CB [facility] Yttqlt3259 [address] RoadDublin [place] [id number] Triglyceride [Mass/Vol] 88 mg/dL Normal 0-149 [facility]ensive [facility]; [facility] Work Phone: Comment on above: Nov 12 2021; PATIENT WAS FASTINGPERFORMED BY: CB [facility] Jgtkbt3063 [address] RoadDublin [place] [id number] LIPID PANEL (44109) 16 mg/dL Normal 5-40 Compr ensive Internal Medicine; [facility] Work Phone: Comment on above: Nov 12 2021; PATIENT WAS FASTINGPERFORMED BY: CB [facility] Qwupki3694 [address] RoadDublin [place] [id number] LIPID PANEL (51462) 107 mg/dL Abnormal 0-99 [facility] Systemensive [facility]; [facility] Work Phone: Comment on above: Nov 12 2021; PATIENT WAS FASTINGPERFORMED BY: CB [facility] Uqxcha1149 [address] RoadDublin [place] [id number] LIPID PANEL (52799) 2.0 {ratio} Normal 0.0-3.2 Comp [facility]erens[facility]; [facility] Work Phone: Comment on above: LDL/HDL Ratio Men Wo men 1/2 Avg.Risk 1.0 1.5 Avg.Risk 3.6 3.2 2X Avg.Risk 6.2 5.0 3X Avg.Risk 8.0 6.1 Nov 12 2021; PATIENT WAS FASTINGPERFORMED BY: CB [facility] Fzslbu1007 [address] NexthinkDublin [place] [id number] Metabolic Panel, Comprehensi ve (37780)Ordered By: Wind Turbine Machinist on 11-12-2021 Albumin [Mass/Vol] 4.5 g/dL Normal 3.7-4.7 [facility] Internal Medicine; [facility] Work Phone: Comment on above: Nov 12 2021; PATIENT WAS FASTINGPERFORMED BY: CB [facility] Bkerth0015 [address] RoadDublin [place] [id number] Albumin/Globulin [Mass ratio] 1.7 {ratio} Normal 1.2-2.2 [facility]; [facility] Work Phone: Comment on above: Nov 12 2021; PATIENT WAS FASTINGPERFORMED BY: CB [facility] Jhnzxj6876 [address] RoadDublin [place] [id number] ALP [Catalytic activity/Vol] 94 U/L Normal 44-121 [facility]; [facility] Work Phone: Comment on above: Please note refere nce interval change Nov 12 2021; PATIENT WAS FASTINGPERFORMED BY: CB [facility] Uxwcpn8577 [address] RoadDublin [place] [id number] ALT [Catalytic activity/Vol] 47 U/L Abnormal 0-32 [facility]; [facility] Work Phone: Comment on above: Nov 12 2021; PATIENT WAS FASTINGPERFORMED BY: CB [facility] Lrmici5052 [address] RoadDublin [place] [id number] AST [Catalytic activity/Vol] 45 U/L Abnormal 0-40 [facility]; [facility] Work Phone: Comment on above: Nov 12 2021; PATIENT WAS FASTINGPERFORMED BY: CB [facility] Ukbtfe2772 [address] RoadDublin [place] [id number] Bilirubin [Mass/Vol] 0.5 mg/dL Normal 0.0-1.2 Comp rehensive Internal Medicine; [facility] Work Phone: Comment on above: Nov 12 2021; PATIENT WAS FASTINGPERFORMED BY: CB [facility] Juyavt7043 [address] RoadDublin [place] [id number] Calcium [Mass/Vol] 9.7 mg/dL Normal 8.7-10.3 [facility] Internal Medicine; [facility] Work Phone: Comment on above: Nov 12 2021; PATIENT WAS FASTINGPERFORMED BY: CB [facility] Junwyk1504 [address] RoadDublin [place] [id number] Chloride [Moles/Vol] 103 mmol/L Normal 96-106 Comp rehensive Internal Medicine; [facility] Work Phone: Comment on above: Nov 12 2021; PATIENT WAS FASTINGPERFORMED BY: ANGELI Coello6370 Litzy KimCrittenden County Hospital [id number] CO2 [Moles/Vol] 24 mmol/L Normal 20-29 [facility] Internal Medicine; [facility] Work Phone: Comment on above: Nov 12 2021; PATIENT WAS FASTINGPERFORMED BY: ANGELI Coello6370 Litzy RosasFirstHealth [id number] Creatinine [Mass/Vol] 0.73 mg/dL Normal 0.57-1.00 Com prehensive Internal Medicine; [facility] Work Phone: Comment on above: Nov 12 2021; PATIENT WAS FASTINGPERFORMED BY: ANGELI Coello6370 [address] RalphFirstHealth [id number] GFR/1.73 sq M.predicted among blacks CKD-EPI (S/P/Bld) [...] PATIENT WAS FASTINGPERFORMED BY: ANGELI Coello6370 Litzy RosasFirstHealth [id number] GFR/1.73 sq M.predicted among non-blacks CKD-EPI (S/P/Bld) [Vol rate/Area] 80 mL/min/1.73 Normal [facility]; [facility] Work Phone: Comment on above: Nov 12 2021; PATIENT WAS FASTINGPERFORMED BY: ANGELI Coello6370 Litzy CartyAtrium Health Kannapolis [id number] Globulin (S) [Mass/Vol] 2.7 g/dL Normal 1.5-4.5 C omprehensive Internal Medicine; [facility] Work Phone: Comment on above: Nov 12 2021; PATIENT WAS FASTINGPERFORMED BY: CB [facility] Rwwrar9832 [address] RoadDublin [place] [id number] Glucose [Mass/Vol] 129 mg/dL Abnormal 65-99 [facility] Internal Medicine; [facility] Work Phone: Comment on above: Nov 12 2021; PATIENT WAS FASTINGPERFORMED BY: CB [facility] Tiesss4940 [address] RoadDublin [place] [id number] Potassium [Moles/Vol] 4.7 mmol/L Normal 3.5-5.2 [facility] Internal Medicine; [facility] Work Phone: Comment on above: Nov 12 2021; PATIENT WAS FASTINGPERFORMED BY: CB [facility] Orqwkd9982 [address] RoadDublin [place] [id number] Protein [Mass/Vol] 7.2 g/dL Normal 6.0-8.5 [facility] Internal Medicine; [facility] Work Phone: Comment on above: Nov 12 2021; PATIENT WAS FASTINGPERFORMED BY: CB [facility] Vuzeia9554 [address] RoadDublin [place] [id number] Sodium [Moles/Vol] 139 mmol/L Normal 134-144 [facility] Internal Medicine; [facility] Work Phone: Comment on above: Nov 12 2021; PATIENT WAS FASTINGPERFORMED BY: CB [facility] Bhqgue0282 [address] RoadDublin [place] [id number] Urea nitrogen [Mass/Vol] 14 mg/dL Normal 8-27 [facility] Internal Medicine; [facility] Work Phone: Comment on above: Nov 12 2021; PATIENT WAS FASTINGPERFORMED BY: CB [facility] Gemguq4523 [address] RoadDublin [place] [id number] Urea nitrogen/Creatinine [Mass ratio] 19 mg/mg Normal 12-28 [facility] Internal Medicine; [facility] Work Phone: Comment on above: Nov 12 2021; PATIENT WAS FASTINGPERFORMED BY: CB [facility] Rdyrxn3287 [address] RoadDublin [place] [id number] TSH (THYROID STIMULATING HOR BARRON) (50230)Ordered By: Wind Turbine Machinist on 11-12-2021 TSH Qn 3.650 {uIU/mL} Normal 0.450-4.50 0 [facility]; [facility] Work Phone: Comment on above: NOV 12 2021; PATIENT WAS FASTINGPERFORMED BY: LabcoJFK Medical CenterHsygry3876 McgheeMetropolitan [facility] [id number] Blood Glucose , Office (8296 2)Ordered By: Nellie Knox on 08-13-2021 Glucose Glucometer (BldC) [Moles/Vol] 198 1 Normal [facility]; [facility] Work Phone: Comment on above: 198 HgA1C , Office ([phone])Ordere d By: Nellie Knox on 08-13-2021 HbA1c (Bld) [Mass fraction] 7.9 % Abnormal 4.6 - 7.1 [facility]; [facility] Work Phone: Blood Glucose , Office (7496 2)Ordered By: Haseeb Brizuela on 03-19-2021 Glucose Glucometer (BldC) [Moles/Vol] 197 1 Normal [facility]; [facility] Work Phone: HgA1C , Office ([phone])Ordere d By: Haseeb Brizuela on 03-19-2021 HbA1c (Bld) [Mass fraction] 7.4 % Abnormal 4.6 - 7.1 [facility]; [facility] Work Phone: CALCIFEDIOL ([phone])Ordered B y: Wind Turbine Machinist on 03-13-2021 25-hydroxyvitamin D [Mass/Vol] 37.5 ng/mL Normal 30.0-100.0 [facility]; [facility] Work Phone: Comment on above: Vitamin D deficiency has been defined by the Sherman ofMedicine and an Endocrine Society practice guideline as alevel of serum 25-OH vitamin D less than 20 ng/mL (1,2).The Endocrine Society went on to further define vitamin Dinsufficiency as a level between 21 and 29 ng/mL (2).1. IOM (Sherman of Medicine). 2010. Dietary reference intakes for calcium and D. [place]: The National Academies Press.2. Ace BILLINGSLEY, Lurdes WELLS, Cynthia COFFMAN, et al. Evaluation, treatment, and prevention of vitamin D deficiency: an Endocrine Society clinical practice guideline. JCEM. 2010; 96(7):1911-30. PATIENT WAS FASTINGP ERFORMED BY: CB [facility] Obaxcw9228 [address] RoadDublin [place] [id number] LIPID PANEL (97427)Ordered B y: Wind Turbine Machinist on 03-13-2021 Cholesterol [Mass/Vol] 228 mg/dL Abnormal 100-199 Co [facility]erensive [facility]; [facility] Work Phone: Comment on above: PATIENT WAS FASTINGP ERFORMED BY: CB [facility] Csqujr0459 [address] RoadDublin [place] [id number] Cholesterol in HDL [Mass/Vol] 47 mg/dL Normal [facility]; [facility] Work Phone: Comment on above: PATIENT WAS FASTINGP ERFORMED BY: CB [facility] Yhvanw9517 [address] RoadDublin [place] [id number] Triglyceride [Mass/Vol] 141 mg/dL Normal 0-149 C ompkettering [facility] medical centerensive Internal Medicine; [facility] Work Phone: Comment on above: PATIENT WAS FASTINGP ERFORMED BY: CB [facility] Pahlme8361 [address] RoadDublin [place] [id number] LIPID PANEL (07522) 26 mg/dL Normal 5-40 Compr ensive Internal Medicine; [facility] Work Phone: Comment on above: PATIENT WAS FASTINGP ERFORMED BY: CB [facility] Opqlnd9817 [address] RoadDublin [place] [id number] LIPID PANEL (19149) 155 mg/dL Abnormal 0-99 Compr ensive Internal Medicine; [facility] Work Phone: Comment on above: PATIENT WAS FASTINGP ERFORMED BY: CB [facility] Uugjto6437 [address] RoadDublin [place] [id number] LIPID PANEL (68063) 3.3 {ratio} Abnormal 0.0-3.2 Comp [facility]erensive Internal Medicine; [facility] Work Phone: Comment on above: LDL/HDL Ratio Men Wo men 1/2 Avg.Risk 1.0 1.5 Avg.Risk 3.6 3.2 2X Avg.Risk 6.2 5.0 3X Avg.Risk 8.0 6.1 PATIENT WAS FASTINGP ERFORMED BY: Pick a Student6370 DiscountDocAshe Memorial Hospitalin [place] [id number] TSH (THYROID STIMULATING HOR BARRON) (92333)Ordered By: Wind Turbine Machinist on 03-13-2021 TSH Qn 3.770 {uIU/mL} Normal 0.450-4.50 0 [facility]; [facility] Work Phone: Comment on above: PATIENT WAS FASTINGP ERFORMED BY: Pick a Student6370 [address] Farmsin [place] [id number] VITAMIN B12 AND FOLATES (829 14)Ordered By: Wind Turbine Machinist on 03-13-2021 Cobalamin (Vitamin B12) [Mass/Vol] 825 pg/mL Normal 232-1245 [facility]; [facility] Work Phone: Comment on above: PATIENT WAS FASTINGP ERFORMED BY: Pick a Student6370 [address] NexthinkAshe Memorial Hospitalin [place] [id number] Folate [Mass/Vol] 8.7 ng/mL Normal Compreh ensive Internal Medicine; [facility] Work Phone: Comment on above: A serum folate stephanie ntration of less than 3.1 ng/mL isconsidered to represent clinical deficiency. PATIENT WAS FASTINGP ERFORMED BY: Pick a Student6370 [facility]heeMet[facility] [id number] [facility] 02-14-2021 [facility] Nurse Visit (COVAMD) KAREN VILLALOBOS ([id number]) 1945 F Date Time Provider Department 02/14/21 JAMIL IVERSON (WATER FITNESS INSTRUCTOR) COVBELLE During your visit today, we recorded the following information about you: Allergies As of Date: 02/14/2021 Noted Allergy Reaction PENICILLINS 03/03/2006 4 - Hives Date Reviewed: 11/06/2019 Reviewed by: Celena Kaba - Fully Assessed Order(s):[employer] SARS-COV-2 VACCINE 2D DOSE APPT [[id number]] Order #: [id number] Prescriptions as of 02/14/2021 Sig: VITAMIN E [...] of breast cancer in sister [Z80.*12/19/2018 Encounter Status:[facility] Blood Glucose , Office (8296 2)Ordered By: Haseeb Sherwood on 06-10-2020 Glucose Glucometer (BldC) [Moles/Vol] 138 1 Normal [facility] Work Phone: CALCIFEDIOL ([phone])Ordered B y: Wind Turbine Machinist on 06-10-2020 25-Hydroxyvitamin D2+25-Hydroxyvitamin D3 [Mass/Vol] 38.8 ng/mL Normal 30.0-100.0 [facility] Work Phone: Comment on above: Vitamin D deficiency has been defined by the Sherman ofMedicine and an Endocrine Society practice guideline as alevel of serum 25-OH vitamin D less than 20 ng/mL (1,2).The Endocrine Society went on to further define vitamin Dinsufficiency as a level between 21 and 29 ng/mL (2).1. IOM (Sherman of Medicine). 2010. Dietary reference intakes for calcium and D. [place]: The National Academies Press.2. Ace MF, Lurdes NC, Cynthia COFFMAN, et al. Evaluation, treatment, and prevention of vitamin D deficiency: an Endocrine Society clinical practice guideline. JCEM. 2010; 96(7):1911-30. PATIENT NOT FASTINGP ERFORMED BY: ttwick Bjbyjn7475 [address] Ninuabl[place] [id number] HGB A1C (10162)Ordered By: S ystem Ticket Maker on 06-10-2020 HbA1c (Bld) [Mass fraction] 7.4 % Abnormal 4.8-5.6 [facility] Work Phone: Comment on above: . Prediabetes: 5.7 - 6.4 Diabetes: >6.4 Glycemic control for adults with diabetes: <7.0 PATIENT NOT FASTINGP ERFORMED BY: [email or web address].org70 [address] Farmsbl[place] [id number] VITAMIN B12 AND FOLATES (826 07)Ordered By: Wind Turbine Machinist on 06-10-2020 Cobalamin (Vitamin B12) [Mass/Vol] 648 pg/mL Normal 232-1245 [facility] Work Phone: Comment on above: PATIENT NOT FASTINGP ERFORMED BY: Nauchime.org[address] [place] [id number] Folate [Mass/Vol] 8.0 ng/mL Normal [facility] Internal Medicine Work Phone: Comment on above: A serum folate stephanie ntration of less than 3.1 ng/mL isconsidered to represent clinical deficiency. PATIENT NOT FASTINGP ERFORMED BY: ttwick Szqksa8328 [address] RoadDublin [place] [id number] LIPID PANEL (65951)Ordered B y: Wind Turbine Machinist on 06-05-2020 Cholesterol [Mass/Vol] 242 mg/dL Abnormal 100-199 Co mprehensive Internal Medicine Work Phone: Comment on above: PATIENT WAS FASTINGP ERFORMED BY: [employer] LabCopybar Hmvgoi3415 [address] NexthinkDublin [place] [id number] Cholesterol in HDL [Mass/Vol] 48 mg/dL Normal [facility] Work Phone: Comment on above: PATIENT WAS FASTINGP ERFORMED BY: ANGELI LabComauri Ecdymc[address] [facility] [place] [id number] Cholesterol in LDL [Mass/Vol] 170 mg/dL Abnormal 0-99 [facility] Work Phone: Comment on above: PATIENT WAS FASTINGP ERFORMED BY: ANGELI LabComauri Wtwoal6625 [address] [facility]bl[facility] [place] [id number] Cholesterol in LDL/Cholesterol in HDL [Mass ratio] 3.5 {ratio} Abnormal 0.0-3.2 [facility] Work Phone: Comment on above: LDL/HDL Ratio Men Wo men 1/2 Avg.Risk 1.0 1.5 Avg.Risk 3.6 3.2 2X Avg.Risk 6.2 5.0 3X Avg.Risk 8.0 6.1 PATIENT WAS FASTINGP ERFORMED BY: ANGELI LabDajuan WeldonMxbgca1433 [address] [facility] [id number] Cholesterol in VLDL [Mass/Vol] 24 mg/dL Normal 5-40 [facility] Work Phone: Comment on above: PATIENT WAS FASTINGP ERFORMED BY: ANGELI LabComauri Iynghs7823 [facility] Centerblin [place] [id number] Triglyceride [Mass/Vol] 121 mg/dL Normal 0-149 C omprehensive Internal Medicine Work Phone: Comment on above: PATIENT WAS FASTINGP ERFORMED BY: ANGELI LabComauri Mptmik8139 [facility]in [place] [id number] Metabolic Panel, Comprehensi ve (57696)Ordered By: Wind Turbine Machinist on 06-05-2020 Albumin [Mass/Vol] 4.4 g/dL Normal 3.7-4.7 Compre [facility]st. [facility] Internal Medicine Work Phone: Comment on above: PATIENT WAS FASTINGP ERFORMED BY: ANGELI [facility] Ciznpz0797 [address] [facility]in [place] [id number] Albumin/Globulin [Mass ratio] 1.5 {ratio} Normal 1.2-2.2 [facility] Work Phone: Comment on above: PATIENT WAS FASTINGP ERFORMED BY: ANGELI [facility] Jazaaf6879 [address] RoadDublin [place] [id number] ALP [Catalytic activity/Vol] 91 [iU]/L Normal 39-117 [facility] Work Phone: Comment on above: PATIENT WAS FASTINGP ERFORMED BY: ANGELI [facility] Omyqmm2997 [address] RoadDublin [place] [id number] ALP [Catalytic activity/Vol] 91 U/L Normal 39-117 [facility] Work Phone: Comment on above: PATIENT WAS FASTINGP ERFORMED BY: ANGELI [facility] Ajmsdr4021 [address] RoadDublin [place] [id number] ALT [Catalytic activity/Vol] 37 [iU]/L Abnormal 0-32 [facility] Work Phone: Comment on above: PATIENT WAS FASTINGP ERFORMED BY: ANGELI [facility] Ldboke2000 [address] RoadDublin [place] [id number] ALT [Catalytic activity/Vol] 37 U/L Abnormal 0-32 [facility] Work Phone: Comment on above: PATIENT WAS FASTINGP ERFORMED BY: ANGELI [facility] Hcmfry9505 [address] RoadDublin [place] [id number] AST [Catalytic activity/Vol] 40 [iU]/L Normal 0-40 [facility] Work Phone: Comment on above: PATIENT WAS FASTINGP ERFORMED BY: [facility] Bzbixw2829 [address] RoadDublin [place] [id number] AST [Catalytic activity/Vol] 40 U/L Normal 0-40 [facility] Work Phone: Comment on above: PATIENT WAS FASTINGP ERFORMED BY: [facility] Uldjkf6083 [address] RoadDublin [place] [id number] Bilirubin [Mass/Vol] 0.5 mg/dL Normal 0.0-1.2 Comp [facility] Internal Medicine Work Phone: Comment on above: PATIENT WAS FASTINGP ERFORMED BY: [facility] Kiccpb8840 [address] RoadDublin [place] [id number] Calcium [Mass/Vol] 9.9 mg/dL Normal 8.7-10.3 [facility] Internal Medicine Work Phone: Comment on above: PATIENT WAS FASTINGP ERFORMED BY: CB [facility] Rbmnxn7388 [address] RoadDublin [place] [id number] Chloride [Moles/Vol] 105 mmol/L Normal 96-106 Comp rehensive Internal Medicine Work Phone: Comment on above: PATIENT WAS FASTINGP ERFORMED BY: CB [facility] Ekyxtw9864 [address] RoadDublin [place] [id number] CO2 [Moles/Vol] 26 mmol/L Normal 20-29 Comprehen [facility] Internal Medicine Work Phone: Comment on above: PATIENT WAS FASTINGP ERFORMED BY: CB [facility] Cgoxzi3844 [address] RoadDublin [place] [id number] Creatinine [Mass/Vol] 0.81 mg/dL Normal 0.57-1.00 [facility] Work Phone: Comment on above: PATIENT WAS FASTINGP ERFORMED BY: CB [facility] Beazex95[address] RoadDublin [place] [id number] GFR/1.73 sq M predicted among blacks CKD-EPI (S/P/Bld) [Vol rate/Area] 83 mL/min/1.73 Normal [facility] Work Phone: Comment on above: PATIENT WAS FASTINGP ERFORMED BY: CB [facility] Tegbhs8867 [address] RoadDublin [place] [id number] GFR/1.73 sq M predicted among non-blacks CKD-EPI (S/P/Bld) [Vol rate/Area] 72 mL/min/1.73 Normal [facility] Work Phone: Comment on above: PATIENT WAS FASTINGP ERFORMED BY: CB [facility] Evnqzo5965 [address] RoadDublin [place] [id number] Globulin (S) [Mass/Vol] 3.0 g/dL Normal 1.5-4.5 C omprehensive Internal Medicine Work Phone: Comment on above: PATIENT WAS FASTINGP ERFORMED BY: CB [facility] Mdksrv4150 [address] RoadDublin [place] [id number] Glucose [Mass/Vol] 154 mg/dL Abnormal 65-99 [facility] Internal Medicine Work Phone: Comment on above: PATIENT WAS FASTINGP ERFORMED BY: ANGELI [facility] Opjubp6174 [address]Dublin [place] [id number] Potassium [Moles/Vol] 5.3 mmol/L Abnormal 3.5-5.2 [facility] Internal Medicine Work Phone: Comment on above: PATIENT WAS FASTINGP ERFORMED BY: ANGELI [facility] Ggcaon2735 [address] RoadDublin [place] [id number] Protein [Mass/Vol] 7.4 g/dL Normal 6.0-8.5 [facility] Internal Medicine Work Phone: Comment on above: PATIENT WAS FASTINGP ERFORMED BY: ANGELI [facility] Tnmlms7044 [address] Roadblin [place] [id number] Sodium [Moles/Vol] 143 mmol/L Normal 134-144 [facility] Internal Medicine Work Phone: Comment on above: PATIENT WAS FASTINGP ERFORMED BY: ANGELI [facility] Dhxgva4432 [address] Roadblin [place] [id number] Urea nitrogen [Mass/Vol] 11 mg/dL Normal 8-27 [facility] Internal Medicine Work Phone: Comment on above: PATIENT WAS FASTINGP ERFORMED BY: [facility] Walkjh6989 [address] Roadblin [place] [id number] Urea nitrogen/Creatinine [Mass ratio] 14 mg/mg Normal 12-28 [facility] Internal Medicine Work Phone: Comment on above: PATIENT WAS FASTINGP ERFORMED BY: [facility] Dwaaov9954 [address] RoadDublin [place] [id number] TSH (THYROID STIMULATING HOR BARRON) ([id number])Ordered By: Wind Turbine Machinist on 06-05-2020 TSH Qn 2.590 {uIU/mL} Normal 0.450-4.50 0 [facility] Internal Medicine Work Phone: Comment on above: PATIENT WAS FASTINGP ERFORMED BY: [facility] Bafacz3716 [address] RoadDublin [place] [id number] LIPID PANEL ([id number])Ordered B y: Wind Turbine Machinist on 02-07-2020 Cholesterol [Mass/Vol] 224 mg/dL Abnormal 100-199 [facility] Work Phone: Comment on above: PATIENT WAS FASTINGP ERFORMED BY: ANGELI LabComauri Pxzcfz9506 [address] RoadDublin [place] [id number] Cholesterol in HDL [Mass/Vol] 50 mg/dL Normal [facility] Work Phone: Comment on above: PATIENT WAS FASTINGP ERFORMED BY: ANGELI [facility] Zrmgty1967 [address] RoadDublin [place] [id number] Cholesterol in LDL [Mass/Vol] 149 mg/dL Abnormal 0-99 [facility] Work Phone: Comment on above: PATIENT WAS FASTINGP ERFORMED BY: ANGELI LabComauri WeldonNdtend[address] [facility] [place] [id number] Cholesterol in LDL/Cholesterol in HDL [Mass ratio] 3.0 {ratio} Normal 0.0-3.2 [facility] Work Phone: Comment on above: LDL/HDL Ratio Men Wo men 1/2 Avg.Risk 1.0 1.5 Avg.Risk 3.6 3.2 2X Avg.Risk 6.2 5.0 3X Avg.Risk 8.0 6.1 PATIENT WAS FASTINGP ERFORMED BY: ANGELI LabComauri Zhwilc[address] [facility] [place] [id number] Cholesterol in VLDL [Mass/Vol] 25 mg/dL Normal 5-40 [facility] Work Phone: Comment on above: PATIENT WAS FASTINGP ERFORMED BY: ANGELI [facility] Kzmzgo2762 [address]Dublin [place] [id number] Triglyceride [Mass/Vol] 123 mg/dL Normal 0-149 [facility] Internal Medicine Work Phone: Comment on above: PATIENT WAS FASTINGP ERFORMED BY: ANGELI [facility] Wkxidz3936 [address] RoadDublin [place] [id number] Metabolic Panel, Comprehensi ve ([id number])Ordered By: Wind Turbine Machinist on 02-07-2020 Albumin [Mass/Vol] 4.5 g/dL Normal 3.7-4.7 [facility] Internal Medicine Work Phone: Comment on above: PATIENT WAS FASTINGP ERFORMED BY: CB [facility] Uaonsv3147 [address] RoadDublin [place] [id number] Albumin/Globulin [Mass ratio] 1.6 {ratio} Normal 1.2-2.2 [facility] Work Phone: Comment on above: PATIENT WAS FASTINGP ERFORMED BY: CB [facility] Cnfqwz1383 [address] RoadDublin [place] [id number] ALP [Catalytic activity/Vol] 91 [iU]/L Normal 39-117 [facility] Work Phone: Comment on above: PATIENT WAS FASTINGP ERFORMED BY: CB [facility] Eukpmt3167 [address] RoadDublin [place] [id number] ALP [Catalytic activity/Vol] 91 U/L Normal 39-117 [facility] Work Phone: Comment on above: PATIENT WAS FASTINGP ERFORMED BY: [facility] Mzladl4490 [address] RoadDublin [place] [id number] ALT [Catalytic activity/Vol] 44 [iU]/L Abnormal 0-32 [facility] Work Phone: Comment on above: PATIENT WAS FASTINGP ERFORMED BY: [facility] Pxarys9914 [address] RoadDublin [place] [id number] ALT [Catalytic activity/Vol] 44 U/L Abnormal 0-32 [facility] Work Phone: Comment on above: PATIENT WAS FASTINGP ERFORMED BY: CB [facility] Tgzsnp7680 [address] RoadDublin [place] [id number] AST [Catalytic activity/Vol] 43 [iU]/L Abnormal 0-40 [facility] Work Phone: Comment on above: PATIENT WAS FASTINGP ERFORMED BY: CB [facility] Fyjgbr1751 [address] RoadDublin [place] [id number] AST [Catalytic activity/Vol] 43 U/L Abnormal 0-40 [facility] Work Phone: Comment on above: PATIENT WAS FASTINGP ERFORMED BY: CB [facility] Pcckxz7749 [address] RoadDublin [place] [id number] Bilirubin [Mass/Vol] 0.4 mg/dL Normal 0.0-1.2 [facility] Work Phone: Comment on above: PATIENT WAS FASTINGP ERFORMED BY: CB [facility] Arceve9221 [address] RoadDublin [place] [id number] Calcium [Mass/Vol] 10.1 mg/dL Normal 8.7-10.3 [facility] Internal Medicine Work Phone: Comment on above: PATIENT WAS FASTINGP ERFORMED BY: CB [facility] Oogido4821 [address] RoadDublin [place] [id number] Chloride [Moles/Vol] 102 mmol/L Normal 96-106 [facility] Work Phone: Comment on above: PATIENT WAS FASTINGP ERFORMED BY: CB [facility] Yviepd9675 [address] RoadDublin [place] [id number] CO2 [Moles/Vol] 24 mmol/L Normal 20-29 [facility] Internal Medicine Work Phone: Comment on above: PATIENT WAS FASTINGP ERFORMED BY: CB [facility] Owymsh7417 [address] RoadDublin [place] [id number] Creatinine [Mass/Vol] 0.79 mg/dL Normal 0.57-1.00 [facility] Internal Medicine Work Phone: Comment on above: PATIENT WAS FASTINGP ERFORMED BY: CB [facility] Rtqonj9885 [address] RoadDublin [place] [id number] GFR/1.73 sq M predicted among blacks CKD-EPI (S/P/Bld) [Vol rate/Area] 85 mL/min/1.73 Normal [facility] Work Phone: Comment on above: PATIENT WAS FASTINGP ERFORMED BY: CB [facility] Yihvjx0974 [address] RoadDublin [place] [id number] GFR/1.73 sq M predicted among non-blacks CKD-EPI (S/P/Bld) [Vol rate/Area] 74 mL/min/1.73 Normal [facility] Internal Medicine Work Phone: Comment on above: PATIENT WAS FASTINGP ERFORMED BY: CB [facility] Pqbwtx3681 [address] RoadDublin [place] [id number] Globulin (S) [Mass/Vol] 2.9 g/dL Normal 1.5-4.5 [facility] Work Phone: Comment on above: PATIENT WAS FASTINGP ERFORMED BY: CB [facility] Evlhmx5967 [address] RoadDublin [place] [id number] Glucose [Mass/Vol] 135 mg/dL Abnormal 65-99 [facility] Internal Medicine Work Phone: Comment on above: PATIENT WAS FASTINGP ERFORMED BY: CB [facility] Paflji0426 [address] RoadDublin [place] [id number] Potassium [Moles/Vol] 4.4 mmol/L Normal 3.5-5.2 [facility] Internal Medicine Work Phone: Comment on above: PATIENT WAS FASTINGP ERFORMED BY: [facility] Rwrzgu1688 [address] RoadDublin [place] [id number] Protein [Mass/Vol] 7.4 g/dL Normal 6.0-8.5 [facility] Internal Medicine Work Phone: Comment on above: PATIENT WAS FASTINGP ERFORMED BY: CB [facility] Bsckuq9404 [address] RoadDublin [place] [id number] Sodium [Moles/Vol] 141 mmol/L Normal 134-144 [facility] Internal Medicine Work Phone: Comment on above: PATIENT WAS FASTINGP ERFORMED BY: CB [facility] Tyffpr9536 [address] RoadDublin [place] [id number] Urea nitrogen [Mass/Vol] 13 mg/dL Normal 8-27 [facility] Internal Medicine Work Phone: Comment on above: PATIENT WAS FASTINGP ERFORMED BY: CB [facility] Vwexwu7311 [address] RoadDublin [place] [id number] Urea nitrogen/Creatinine [Mass ratio] 16 mg/mg Normal 12-28 [facility] Internal Medicine Work Phone: Comment on above: PATIENT WAS FASTINGP ERFORMED BY: [facility]6[address] [facility] [id number] TSH (THYROID STIMULATING HOR BARRON) ([id number])Ordered By: Wind Turbine Machinist on 02-07-2020 TSH Qn 4.560 {uIU/mL} Abnormal 0.450-4.50 0 [facility] Work Phone: Comment on above: PATIENT WAS FASTINGP ERFORMED BY: [address] [id number] Blood Glucose , Office ([phone])on 11-06-2019 Glucose Glucometer (BldC) [Moles/Vol] 142 1 Normal [facility] Work Phone: HgA1C , Office ([phone])on HbA1c (Bld) [Mass fraction] 7.1 % Normal 4.6 - 7.1 [facility] Work Phone: CBC, Platelets & Auto Diff ( [id number])Ordered By: Wind Turbine Machinist on 10-31-2019 Basophils (Bld) [#/Vol] 0.0 {x10E3/uL} Normal 0.0-0.2 [facility] Work Phone: Comment on above: PATIENT WAS FASTINGP ERFORMED BY: [facility]6[address] [facility] [id number] Basophils (Bld) [#/Vol] 0.0 10*3/uL Normal 0.0-0.2 [facility] Work Phone: Comment on above: PATIENT WAS FASTINGP ERFORMED BY: [facility]6[address] [facility] [id number] Basophils/100 WBC (Bld) 0 % Normal C [facility] Internal Medicine Work Phone: Comment on above: PATIENT WAS FASTINGP ERFORMED BY: [facility]6[address] [facility] [id number] Eosinophils (Bld) [#/Vol] 0.0 {x10E3/uL} Normal 0.0-0.4 [facility] Work Phone: Comment on above: PATIENT WAS FASTINGP ERFORMED BY: [facility] [facility] [id number] Eosinophils (Bld) [#/Vol] 0.0 10*3/uL Normal 0.0-0.4 [facility] Work Phone: Comment on above: PATIENT WAS FASTINGP ERFORMED BY: [facility]6[address] [facility] [id number] Eosinophils/100 WBC (Bld) 0 % Normal [facility] Work Phone: Comment on above: PATIENT WAS FASTINGP ERFORMED BY: [facility]6[address] [facility] [id number] Erythrocyte distribution width (RBC) [Ratio] 14.1 % Normal 12.3-15.4 [facility] Work Phone: Comment on above: PATIENT WAS FASTINGP ERFORMED BY: [place] [address]38[address] [facility] [id number] Hematocrit (Bld) [Volume fraction] 38.2 % Normal 34.0-46.6 [facility] Work Phone: Comment on above: PATIENT WAS FASTINGP ERFORMED BY: [facility]6[address] [facility] [id number] Hemoglobin (Bld) [Mass/Vol] 12.8 g/dL Normal 11.1-15.9 [facility] Work Phone: Comment on above: PATIENT WAS FASTINGP ERFORMED BY: [facility]6[address] [facility] [id number] Immature granulocytes (Bld) [#/Vol] 0.0 {x10E3/uL} Normal 0.0-0.1 [facility] Work Phone: Comment on above: PATIENT WAS FASTINGP ERFORMED BY: LabJeanne [place] 3412370 [facility] [id number] Immature granulocytes (Bld) [#/Vol] 0.0 10*3/uL Normal 0.0-0.1 [facility] Work Phone: Comment on above: PATIENT WAS FASTINGP ERFORMED BY: ANGELI [facility] Aginig6645 [facility] [id number] Immature granulocytes/100 WBC (Bld) 0 % Normal [facility] Work Phone: Comment on above: PATIENT WAS FASTINGP ERFORMED BY: ANGELI DawnB[facility] Bewjcj3619 [facility] [id number] Lymphocytes (Bld) [#/Vol] 1.6 {x10E3/uL} Normal 0.7-3.1 [facility] Work Phone: Comment on above: PATIENT WAS FASTINGP ERFORMED BY: ANGELI Weldonlin6370 [facility] [id number] Lymphocytes (Bld) [#/Vol] 1.6 10*3/uL Normal 0.7-3.1 [facility] Work Phone: Comment on above: PATIENT WAS FASTINGP ERFORMED BY: ANGELI Simmons Jivdiq3270 [facility] [id number] Lymphocytes/100 WBC (Bld) 32 % Normal [facility] Work Phone: Comment on above: PATIENT WAS FASTINGP ERFORMED BY: ANGELI Weldonlin6370 [facility] [id number] MCH (RBC) [Entitic mass] 29.7 pg Normal 26.6-33.0 [facility] Work Phone: Comment on above: PATIENT WAS FASTINGP ERFORMED BY: ANGELI [facility] Dsfhep9105 [facility] [id number] MCHC (RBC) [Mass/Vol] 33.5 g/dL Normal 31.5-35.7 [facility] prehensive Internal Medicine Work Phone: Comment on above: PATIENT WAS FASTINGP ERFORMED BY: ANGELI Weldonlin6370 [facility] [id number] MCV (RBC) [Entitic vol] 89 fL Normal 79-97 C [facility] Internal Medicine Work Phone: Comment on above: PATIENT WAS FASTINGP ERFORMED BY: ANGELI Coello6370 [address]Dublin [place] [id number] Monocytes (Bld) [#/Vol] 0.4 {x10E3/uL} Normal 0.1-0.9 [facility] Work Phone: Comment on above: PATIENT WAS FASTINGP ERFORMED BY: ANGELI Coello6[address]Dublin [place] [id number] Monocytes (Bld) [#/Vol] 0.4 10*3/uL Normal 0.1-0.9 [facility] Work Phone: Comment on above: PATIENT WAS FASTINGP ERFORMED BY: ANGELI Coello6[address]Dublin [place] [id number] Monocytes/100 WBC (Bld) 9 % Normal [facility] Medicine Work Phone: Comment on above: PATIENT WAS FASTINGP ERFORMED BY: ANGELI Coello6[address]Dublin [place] [id number] Neutrophils (Bld) [#/Vol] 3.0 {x10E3/uL} Normal 1.4-7.0 [facility] Work Phone: Comment on above: PATIENT WAS FASTINGP ERFORMED BY: ANGELI Coello[address]Dublin [place] [id number] Neutrophils (Bld) [#/Vol] 3.0 10*3/uL Normal 1.4-7.0 [facility] Work Phone: Comment on above: PATIENT WAS FASTINGP ERFORMED BY: ANGELI Weldonlin6370 [address]Dublin [place] [id number] Neutrophils/100 WBC (Bld) 59 % Normal [facility] Work Phone: Comment on above: PATIENT WAS FASTINGP ERFORMED BY: ANGELI Coello6[address]Dublin [place] [id number] Platelets (Bld) [#/Vol] 105 {x10E3/uL} Abnormal 150-450 [facility] Work Phone: Comment on above: PATIENT WAS FASTINGP ERFORMED BY: ANGELI Coello6[address]Dublin [place] [id number] Platelets (Bld) [#/Vol] 105 10*3/uL Abnormal 150-450 [facility] Work Phone: Comment on above: PATIENT WAS FASTINGP ERFORMED BY: CB [facility] Nfcziz8792 [address] RoadDublin [place] [id number] RBC (Bld) [#/Vol] 4.31 {x10E6/uL} Normal 3.77-5.28 [facility]erensive Internal [facility] Work Phone: Comment on above: PATIENT WAS FASTINGP ERFORMED BY: [facility] Uzppjc2920 [address] RoadDublin [place] [id number] RBC (Bld) [#/Vol] 4.31 10*6/uL Normal 3.77-5.28 [facility] Internal Medicine Work Phone: Comment on above: PATIENT WAS FASTINGP ERFORMED BY: [facility] Wxwpzj5507 [address] RoadDublin [place] [id number] WBC (Bld) [#/Vol] 5.0 {x10E3/uL} Normal 3.4-10.8 [facility] Internal Medicine Work Phone: Comment on above: PATIENT WAS FASTINGP ERFORMED BY: [facility] Cejhwm3237 [address] RoadDublin [place] [id number] WBC (Bld) [#/Vol] 5.0 10*3/uL Normal 3.4-10.8 [facility] Internal Medicine Work Phone: Comment on above: PATIENT WAS FASTINGP ERFORMED BY: [facility] Gaxork8852 [address]Dublin [place] [id number] LIPID PANEL ([id number])Ordered B y: Wind Turbine Machinist on 10-31-2019 Cholesterol [Mass/Vol] 257 mg/dL Abnormal 100-199 [facility]erens[facility] Internal Medicine Work Phone: Comment on above: PATIENT WAS FASTINGP ERFORMED BY: [facility] Iaknsg7070 [address] RoadDublin [place] [id number] Cholesterol in HDL [Mass/Vol] 50 mg/dL Normal [facility] Work Phone: Comment on above: PATIENT WAS FASTINGP ERFORMED BY: ANGELI LabDajuan WeldonAholut[address] [facility]blin [place] [id number] Cholesterol in LDL [Mass/Vol] 178 mg/dL Abnormal 0-99 [facility] Work Phone: Comment on above: PATIENT WAS FASTINGP ERFORMED BY: ANGELI LabDajuna WeldonMunglb[address] [facility]in [place] [id number] Cholesterol in LDL/Cholesterol in HDL [Mass ratio] 3.6 {ratio} Abnormal 0.0-3.2 [facility] Work Phone: Comment on above: LDL/HDL Ratio Men Wo men 1/2 Avg.Risk 1.0 1.5 Avg.Risk 3.6 3.2 2X Avg.Risk 6.2 5.0 3X Avg.Risk 8.0 6.1 PATIENT WAS FASTINGP ERFORMED BY: ANGELI Weldonlin6370 [facility] [id number] Cholesterol in VLDL [Mass/Vol] 29 mg/dL Normal 5-40 [facility] Work Phone: Comment on above: PATIENT WAS FASTINGP ERFORMED BY: ANGELI Weldonlin6370 [facility]in [place] [id number] Triglyceride [Mass/Vol] 143 mg/dL Normal 0-149 C [facility] Internal Medicine Work Phone: Comment on above: PATIENT WAS FASTINGP ERFORMED BY: ANGELI LabDajuan Anwfio2647 [facility]in [place] [id number] Metabolic Panel, Comprehensi ve ([id number])Ordered By: Wind Turbine Machinist on 10-31-2019 Albumin [Mass/Vol] 4.5 g/dL Normal 3.5-4.8 Compre [facility] Internal Medicine Work Phone: Comment on above: PATIENT WAS FASTINGP ERFORMED BY: ANGELI Weldonlin6370 [facility] Centerbl[facility] [place] [id number] Albumin/Globulin [Mass ratio] 1.6 {ratio} Normal 1.2-2.2 [facility] Work Phone: Comment on above: PATIENT WAS FASTINGP ERFORMED BY: ANGELI [facility] Zkulao5399 [address] RoadDublin [place] [id number] ALP [Catalytic activity/Vol] 83 [iU]/L Normal 39-117 [facility] Work Phone: Comment on above: PATIENT WAS FASTINGP ERFORMED BY: ANGELI [facility] Cifsaj1084 [address] RoadDublin [place] [id number] ALP [Catalytic activity/Vol] 83 U/L Normal 39-117 [facility] Work Phone: Comment on above: PATIENT WAS FASTINGP ERFORMED BY: ANGELI [facility] Tiryqu7683 [address] RoadDublin [place] [id number] ALT [Catalytic activity/Vol] 32 [iU]/L Normal 0-32 [facility] Work Phone: Comment on above: PATIENT WAS FASTINGP ERFORMED BY: ANGELI [facility] Opbepx1615 [address] RoadDublin [place] [id number] ALT [Catalytic activity/Vol] 32 U/L Normal 0-32 [facility] Work Phone: Comment on above: PATIENT WAS FASTINGP ERFORMED BY: ANGELI [facility] Qrvlrf4770 [address] RoadDublin [place] [id number] AST [Catalytic activity/Vol] 33 [iU]/L Normal 0-40 [facility] Work Phone: Comment on above: PATIENT WAS FASTINGP ERFORMED BY: ANGELI [facility] Txmxte7701 [address] RoadDublin [place] [id number] AST [Catalytic activity/Vol] 33 U/L Normal 0-40 [facility] Work Phone: Comment on above: PATIENT WAS FASTINGP ERFORMED BY: ANGELI [facility] Pehapm1161 [address] RoadDublin [place] [id number] Bilirubin [Mass/Vol] 0.2 mg/dL Normal 0.0-1.2 [facility] Internal Medicine Work Phone: Comment on above: PATIENT WAS FASTINGP ERFORMED BY: ANGELI [facility] Tvbiqg4073 [address] RoadDublin [place] [id number] Calcium [Mass/Vol] 10.0 mg/dL Normal 8.7-10.3 [facility] Internal Medicine Work Phone: Comment on above: PATIENT WAS FASTINGP ERFORMED BY: ANGELI LabComauri Rfsrud1966 [address] RoadDublin [place] [id number] Chloride [Moles/Vol] 105 mmol/L Normal 96-106 Comp rehensive Internal Medicine Work Phone: Comment on above: PATIENT WAS FASTINGP ERFORMED BY: ANGELI [facility] Nhujsl[address] [facility]in [place] [id number] CO2 [Moles/Vol] 18 mmol/L Abnormal 20-29 Comprehen [facility] Internal Medicine Work Phone: Comment on above: PATIENT WAS FASTINGP ERFORMED BY: ANGELI [facility] Hxbcri6109 Mcg[address] RoadAt[facility] Health Kann[facility] [id number] Creatinine [Mass/Vol] 0.73 mg/dL Normal 0.57-1.00 [facility] Work Phone: Comment on above: PATIENT WAS FASTINGP ERFORMED BY: ANGELI [facility] Uzircf8976 [address] RoadAshe Memorial Hospitalin [place] [id number] GFR/1.73 sq M predicted among blacks CKD-EPI (S/P/Bld) [Vol rate/Area] 94 mL/min/1.73 Normal [facility] Work Phone: Comment on above: PATIENT WAS FASTINGP ERFORMED BY: ANGELI [facility] Dqanbr4468 [address] RoadAshe Memorial Hospitalin [place] [id number] GFR/1.73 sq M predicted among non-blacks CKD-EPI (S/P/Bld) [Vol rate/Area] 81 mL/min/1.73 Normal [facility] Work Phone: Comment on above: PATIENT WAS FASTINGP ERFORMED BY: ANGELI [facility] Pgijqq5602 [address] RoadAshe Memorial Hospitalin [place] [id number] Globulin (S) [Mass/Vol] 2.9 g/dL Normal 1.5-4.5 C omprehensive Internal Medicine Work Phone: Comment on above: PATIENT WAS FASTINGP ERFORMED BY: ANGELI [facility] Pfglvz6370 [address] RoadDublin [place] [id number] Glucose [Mass/Vol] 139 mg/dL Abnormal 65-99 [facility] Internal Medicine Work Phone: Comment on above: PATIENT WAS FASTINGP ERFORMED BY: CB [facility] Irdjjg3963 [address] RoadDublin [place] [id number] Potassium [Moles/Vol] 4.5 mmol/L Normal 3.5-5.2 [facility] Internal Medicine Work Phone: Comment on above: PATIENT WAS FASTINGP ERFORMED BY: ANGELI [facility] Pabkvn5891 [address] RoadDublin [place] [id number] Protein [Mass/Vol] 7.4 g/dL Normal 6.0-8.5 [facility] Internal Medicine Work Phone: Comment on above: PATIENT WAS FASTINGP ERFORMED BY: ANGELI [facility] Qefnsa5222 [address] RoadDublin [place] [id number] Sodium [Moles/Vol] 142 mmol/L Normal 134-144 [facility] Internal Medicine Work Phone: Comment on above: PATIENT WAS FASTINGP ERFORMED BY: ANGELI [facility] Djnvxv7704 [address] Roadblin [place] [id number] Urea nitrogen [Mass/Vol] 15 mg/dL Normal 8-27 [facility] Internal Medicine Work Phone: Comment on above: PATIENT WAS FASTINGP ERFORMED BY: ANGELI [facility] Mmgpiy0853 [address] RoadAshe Memorial Hospitalin [place] [id number] Urea nitrogen/Creatinine [Mass ratio] 21 mg/mg Normal 12-28 [facility] Internal Medicine Work Phone: Comment on above: PATIENT WAS FASTINGP ERFORMED BY: CB [facility] Nwgejq5382 [address]ghee RoadDublin [place] [id number] TSH ([id number])Ordered By: Eb Arauz on 10-31-2019 TSH Qn 3.020 {uIU/mL} Normal 0.450-4.50 0 [facility] Work Phone: Comment on above: PATIENT WAS FASTINGP ERFORMED BY: ANGELI [facility] Jokmfq4513 [address]ghee RoadDublin [place] [id number] Blood Glucose , Office (4596 2)Ordered By: Haseeb Sherwood on 08-28-2019 Glucose Glucometer (BldC) [Moles/Vol] 92 1 Normal [facility] Work Phone: HgA1C , Office (09877)Ordere d By: Haseeb Sherwood on 08-28-2019 HbA1c (Bld) [Mass fraction] 6.4 % Normal 4.6 - 7.1 [facility] Work Phone: TSH (THYROID STIMULATING HOR BARRON) (20989)Ordered By: Wind Turbine Machinist on 03-13-2019 Thyrotropin Qn 4.570 {uIU/mL} Abnormal 0.450-4.50 0 [facility] Work Phone: Comment on above: PATIENT NOT FASTINGP ERFORMED BY: ANGELI [facility] Fgncvo3055 [facility] [id number] CBC-Complete Blood Cnt No Di ffOrdered By: Wind Turbine Machinist on 03-07-2019 Erythrocyte distribution width Ratio (RBC) 13.5 % Normal 11.6-14.6 [facility] Work Phone: Comment on above: [facility] [address] [place], [place], [phone] Hematocrit Volume Fraction (Bld) 38.4 % Normal 37-47 [facility] Work Phone: Comment on above: [facility] [address] [place], [place], [phone] Hemoglobin mass conc (Bld) 12.8 g/dL Normal 12.0-15.0 [facility] Work Phone: Comment on above: [facility] [address] [place], [place], [id number] MCH Entitic mass (RBC) 29.2 pg Normal 27.0-32.0 Co mprehensive Internal Medicine Work Phone: Comment on above: [facility] [address] [place], [place], [phone] MCHC mass conc (RBC) 33.3 {g/gl} Normal 32-36 Com prehensive Internal Medicine Work Phone: Comment on above: [facility] [address] [place], [address] MCV Entitic volume (RBC) 87.7 fL Normal 81-99 [facility] Work Phone: Comment on above: [facility] [address] [place], [address] Platelet mean volume Entitic volume (Bld) 11.3 fL Normal 6.2-12.0 Comprehensi ve Internal Medicine Work Phone: Comment on above: [facility] [address] [place], [address] Platelets #/vol (Bld) 111 10*3/uL Abnormal 150-450 Co [facility] Work Phone: Comment on above: [facility] [address] [place], [address] RBC #/vol (Bld) 4.38 {M/mm3} Normal 4.2-5.4 Compreh ensive Internal Medicine Work Phone: Comment on above: [facility] [address] [place], [address] WBC #/vol (Bld) 5.5 10*3/uL Normal 4.4-11.0 Comprehe nsive Internal Medicine Work Phone: Comment on above: [facility] [address] [place], [address] CBC-Complete Blood Cnt No Diff 43.3 fL Normal 35.1-43.9 [facility] Work Phone: Comment on above: [facility] [address] [place], [address] Hemoglobin B9wSrahcvq By: stem Ticket Maker on 03-07-2019 Hemoglobin A1c/Hemoglobin.total mass fraction (Bld) 8.1 % Abnormal 4.2-6.3 Comprehensiv e Internal Medicine Work Phone: Comment on above: [facility] [address] [place], [place], [phone] Partial Thromboplast TimeOrd ered By: Wind Turbine Machinist on 03-07-2019 aPTT Coag time (PPP) 29.2 s Normal 24.1-36.2 [facility] Work Phone: Comment on above: [facility] [address] [place], [address] Prothrombin Time w/INROrdere d By: Wind Turbine Machinist on 03-07-2019 INR Coag RelTime (PPP) 1.0 {INR} Normal Co [facility] Internal Medicine Work Phone: Comment on above: [facility] [address] [place], [address] Prothrombin time (PT) Coag time (PPP) 13.4 s Normal 11.7-14.9 [facility] Work Phone: Comment on above: [facility] [address] [place], [address] Thyroid Stim Hormone (TSH)Or dered By: Wind Turbine Machinist on 03-07-2019 Thyrotropin Qn 3.09 {uIU/mL} Normal 0.358-3.74 Compreh ensive Internal Medicine Work Phone: Comment on above: [facility] [address] [place], [address] Type AND ScreenOrdered By: Jarrod kilgoretem Ticket Maker on 03-07-2019 ABO and Rh group Nom (Bld) O POSITIVE Normal [facility] Work Phone: Comment on above: Surgery Date: Date of Last Transfusion (if within last 3 months) NHx of Preganancy in last 3 Months NoEver experience any problems with transfusion(s)? NHx of Transfusion in last 3 Months NReason for Type AND Screen/Red Cells: SURGERYTime: 0800SURGICAL PROCEDURE: HS D AND [facility] [address] [place], [address] HgA1C , Office ([id number])Ordere d By: Federica Olivarez on 01-19-2019 Hemoglobin A1c/Hemoglobin.total mass fraction (Bld) 7.2 % Abnormal 4.6 - 7.1 Comprehensiv e Internal Medicine Work Phone: Comment on above: 7.2 TSH (THYROID STIMULATING HOR BARRON) ([id number])Ordered By: Wind Turbine Machinist on 01-13-2019 Thyrotropin Qn 4.590 {uIU/mL} Abnormal 0.450-4.50 0 [facility] Work Phone: Comment on above: get done week of Nov 21; PATIENT NOT FASTINGPERFORMED BY: [facility] Xhkbna8156 [facility] [id number] Bedside GlucoseOrdered By: Jarrod ystem Ticket Maker on 12-05-2018 Bedside Glucose 129 mg/dL Abnormal 70-110 Comprehen sive Internal Medicine Work Phone: Comment on above: MANAGEMENT OF PATIEN T CARE PER NURSING PROTOCOL [facility] LaboratoryPoint of [address]mkx[address] [place] [address] Bedside Glucose 117 mg/dL Abnormal 70-110 [facility] Internal Medicine Work Phone: Comment on above: MANAGEMENT OF PATIEN T CARE PER NURSING PROTOCOL [facility] LaboratoryPoint of Gmwh[address] [place] [address] IMMUNOHISTOCHEMISTRYOrdered By: Wind Turbine Machinist on 12-05-2018 IMMUNOHISTOCHEMISTRY See Note Normal Comp rehensive Internal Medicine Work Phone: Comment on above: Patient: KARISHMA VILLALOBOS : 1945 (73/F) Acct Num: [id number] Phys: Rob CLEMONS,Zee Unit Num: [id number] [place] [facility] [place]: [id number] Received: 12/07/18 - 1003 Spec Type: IMMUNO THIS IS A CORRECTED REPORT TISSUES 1 TISSUES: A. Axillary lymph node, NOS B. Axillary lymph node, NOS SPECIMEN INFORMATION: Tissue Source: A - Right axillary lymph nodes, lymphadenectomy, B - Lymph node tissue Clinical Info: Right breast cancer Specimen Number: [id number] A1-5, B CPT code: 36846 x2, 49520 x5 METHODOLOGY: Deparaffinized sections of prefer/formalin-fixed tissue [...] developed and their performance characteristics determined by [facility]. They may not have been cleared [...] for carcinoma. AM:mohit 12/08/18 PHYSICIAN AND INSTITUTION [place] [address] Signed David Hussein, DO 12/08/18 Patient: KARISHMA VILLALOBOS : 1945 (73/F) Acct Num: [id number] Phys: Rob CLEMONSZee Unit Num: [id number] Loc: [facility] [place] Specimen: [id number] Received: 12/05/18 - 1259 Spec Type: AX NODE BX THIS IS A CORRECTED REPORT TISSUES 1 TISSUES: A. Axillary lymph node, NOS B. Axillary lymph node, NOS COMMENT Immunohistochemistry ([id number]) supports the above diagnosis. The lymph nodes show fatty replacement. Clinical correlation is suggested. Please make reference to case [id number] in which right partial breast contained two [...] one cassette. / SJ:mohit 12/07/18 TC:5 CPT: 37456, 10992, 74629 x4 HEADER OPERATION: Biopsy, axillary node, Neoprobe [...] AM:mohit 12/08/18 Signed David Hussein DO 12/08/18 [facility] [address] [place], [place], [address] Patient: KARISHMA VILLALOBOS : 1945 (73/F) Acct Num: [id number] Phys: Zee Rivas MD Unit Num: [id number] Loc: [facility] [place] Specimen: [id number] Received: 12/05/18 - 125 Spec Type: AX NODE BX THIS IS A CORRECTED REPORT TISSUES 1 TISSUES: A. Axillary lymph node, NOS B. Axillary lymph node, NOS COMMENT Immunohistochemistry ([id number]) supports the above diagnosis. The lymph nodes show fatty replacement. Clinical correlation is suggested. Please make reference to case [id number] in which right partial breast contained two [...] one cassette. / SJ:mohit 12/07/18 TC:5 CPT: 42033, 20450, 92644 x4, 92602 HEADER OPERATION: Biopsy, axillary node, Neoprobe PRE-OP [...] Hussein DO 12/08/18 AXILLARY NODE BIOPSYOrdered By: Wind Turbine Machinist on 10-10-2018 AXILLARY NODE BIOPSY See Note Normal Comp rehensive Internal Medicine Work Phone: Comment on above: Patient: KARISHMA VILLALOBOS : 1945 (73/F) Acct Num: [id number] Phys: Zee Rivas MD Unit Num: [id number] Loc: [facility] [place] Specimen: [id number] Received: 10/10/181336 Spec Type: AX NODE BX TISSUES 1 TISSUES: A. Axillary lymph node, NOS B. Left breast, NOS C. Left breast, NOS COMMENT A. The lymph nodes are negative for metastatic carcinoma on multiple H AND E levels and immunohistochemical stains for cytokeratins ([id number]). The smallest lymph node is completed exhausted during frozen section diagnosis (block #2). C. Immunohistochemistry ([id number]) supports the above diagnosis. This portion of [...] adipose cut surface mixed with fibrous area. Book Repairer sections are submitted in 10 cassettes as follows: 1 - skin adjacent anterior margin and perpendicular posterior margin, 2 - perpendicular medial, lateral and superior margins, 3-6 - biopsy cavity with surrounding indurated tissue, entirely submitted and including adjacent perpendicular inferior margin, 7 - circulation representative section adjacent to the biopsy cavity, 810 - circulation representative sections away from the cavity. Sections [...] tissue. No obvious mass lesion is identified. Book Repairer sections are submitted in 12 cassettes as follows:1-5 - biopsy cavity with surrounding tissue, 6-12 - second biopsy cavity with surrounding tissue. Sections will be submitted after additional fixation. Ezekiel 10/11/18 TC: 0 CPT: 97177 x3, 55807, 11910r3, 84178s0 HEADER OPERATION: Right and left breast lumpectomy [...] ductal carcinoma (no special type) Histologic grade: [place] grade: histologic score Glandular/tubular differentiation - score [...] biopsy site. Ancillary studies: (previously performed at [facility], [id number]) ER - positive (95%, strong) IA - positive (95%, moderate) Keu5xsm - negative (0) Microcalcifications - present in nonneoplastic tissue, medial calcification blood vessel wall Clinical history - Please make reference to previous specimen from [facility] [id number] left breast, needle core biopsy diagnosis of [...] atypia. Complex atypical papillary lesion. Ancillary studies: ([id number]) ER - positive (<95%, strong) IA - positive (<95%, strong) Yoa1ljz - negative (0) Microcalcifications - present Clinical history - Please make reference to previous specimen ([id number]) right breast, needle localization biopsy from [facility] diagnosis of fragments of atypical papillary lesion and atypical lobular hyperplasia. PATHOLOGIC STAGE: pT1c(n) pNX MX The above summary is in compliance with College of [place] Path[employer] (CAP) Cancer Protocols Checklist and [place] Joint Committee on Cancer (AJCC), Staging Manual, 8th Ed. Signed Cong Chirinos 10/21/18 [facility] [address] [place], [address] Bedside GlucoseOrdered By: Jarrod ystem Ticket Maker on 10-10-2018 Bedside Glucose 132 mg/dL Abnormal 70-110 [facility] Internal Medicine Work Phone: Comment on above: MANAGEMENT OF PATIEN T CARE PER NURSING PROTOCOL [facility] LaboratoryPoint of [address] [place] [address] Bedside Glucose 125 mg/dL Abnormal 70-110 [facility] Internal Medicine Work Phone: Comment on above: MANAGEMENT OF PATIEN T CARE PER NURSING PROTOCOL [facility] LaboratoryPoint of [address] [place] [address] IMMUNOHISTOCHEMISTRYOrdered By: Wind Turbine Machinist on 10-10-2018 IMMUNOHISTOCHEMISTRY See Note Normal Comp rehensive Internal Medicine Work Phone: Comment on above: Patient: KARISHMA VILLALOBOS : 1945 (73/F) Acct Num: [id number] Phys: Zee Rivas MD Unit Num: [id number] Loc: [facility] [place] Specimen: [id number] Received: 10/13/181217 Spec Type: IMMUNO TISSUES 1 TISSUES: A. Axillary lymph node, NOS C. Right breast, NOS SPECIMEN INFORMATION: Tissue Source: A. Left axillary sentinel lymph node, C. Right breast mass Clinical Info: Newly diagnosed left breast cancer, atypical lesion Specimen Number: [id number] A1, A2, A3, C3, C9, C11 CPT code: 75219 x2, 59872 x19, 45510 x3 METHODOLOGY: Deparaffinized sections of prefer/formalin-fixed tissue [...] negative Block C3 P40 (BC28) negative Calponin-1 (SE638J) negative E-Cad (ECH-6) positive CK8 (02awduR13) positive CK5-6 (D5 AND 1684) negative Ki-67 (30-9) positive, low P53 (DO-7) negative MORPHOMETRIC ANALYSIS ER (clone 6F11) >95%, strong IA (clone 16/1E2) >95% strong Her-2Neu (clone CB11) 0 Block C9 P40 (BC28) negative Calponin-1 (IJ839U) negative E-Cad (ECH-6) positive CK8 (42poedS24) positive Block C11 P40 (BC28) negative Calponin-1 (NS726B) negative E-Cad (ECH-6) positive CK8 (89xouiI79) positive The prognostic test for HER2 is performed on formalin-fixed paraffin embedded tissue. A 3+ (positive) staining pattern is defined as intense, homogeneous, complete, circumferential membranous staining in >10% of contiguous tumor cells. A similar weak (2+) staining pattern is interpreted as equivocal. STEPHEN follow-up testing is recommended for all equivocal cases. Positivity/negativity for ER/IA is reported if > or < 1% of the tumor cells are immuno- reactive, respectively. The ASCO/CAP criteria is used for scoring. Reference: Journal of Clinical Oncology, 2013; 31:1911-7777 AND 2009; 16:7487-6500. Duration of fixation: __ Hrs; Sample Adequate: Yes. These assays have not been validated on decalcified tissues. Results should beinterpreted with caution given the likelihood of false negativity on decalcifiedspecimens. These tests were developed and their performance characteristics determined by [facility]. They may not have been cleared [...] (favorable prognostic indicator). Negative for overexpression of IJY5znf. SJ:mohit 10/21/18 PHYSICIAN AND INSTITUTION [address] [address] Signed Cong Chirinos 10/21/18 [facility] [address] [place], [place], [address] HgA1C , Office (20055)Ordere d By: Myra Fowler on 10-05-2018 Hemoglobin A1c/Hemoglobin.total mass fraction (Bld) 7.3 % Abnormal 4.6 - 7.1 Comprehensiv e Internal Medicine Work Phone: [id number] ([phone] 05)Ordered By: Wind Turbine Machinist on 09-30-2018 AFP.tumor marker mass conc 4.1 ng/mL Normal 0.0-8.3 [facility] Work Phone: Comment on above: Nora ECLIA methodol ogy Aug 2018; PATIENT WA S FASTINGPERFORMED BY: Pick a Student6370 [address]hee RoadDublin [place] [id number] CALCIFEDIOL (86772)Ordered B y: Wind Turbine Machinist on 09-30-2018 25-Hydroxyvitamin D2+25-Hydroxyvitamin D3 mass conc 46.1 ng/mL Normal 30.0-100.0 [facility] Work Phone: Comment on above: Vitamin D deficiency has been defined by the Sherman ofDoctors Hospitalcine and an Endocrine Society practice guideline as alevel of serum 25-OH vitamin D less than 20 ng/mL (1,2).The Endocrine Society went on to further define vitamin Dinsufficiency as a level between 21 and 29 ng/mL (2).1. IOM (Sherman of Medicine). 2010. Dietary reference intakes for calcium and D. [place]: The National Academies Press.2. Ace MF, [place], Cynthia COFFMAN, et al. Evaluation, treatment, and prevention of vitamin D deficiency: an Endocrine Society clinical practice guideline. JCEM. 2010; 96(7):1911-30. August 2018; EMILEE Gilbert WAS FASTINGPERFORMED BY: ttwick Jsnlyu[address] RoadYoBuckoblin [place] [id number] Metabolic Panel, Comprehensi ve (62463)Ordered By: Wind Turbine Machinist on 09-30-2018 Albumin mass conc 4.5 g/dL Normal 3.5-4.8 Compreh ensive Internal Medicine Work Phone: Comment on above: August 2018; EMILEE Gilbert WAS FASTINGPERFORMED BY: Pick a Student6370 [address] RoadDublin [place] [id number] Albumin/Globulin mass ratio 1.5 {ratio} Normal 1.2-2.2 [facility] Work Phone: Comment on above: August 2018; EMILEE Gilbert WAS FASTINGPERFORMED BY: Nauchime.org70 [address]hee RoadDublin [place] [id number] ALP [Catalytic activity/Vol] 83 U/L Normal 39-117 [facility] Internal Medicine Work Phone: Comment on above: August 2018; EMILEE T WAS FASTINGPERFORMED BY: CB [facility] Wzyzmw7899 Mc[address]hee RoadDublin [place] [id number] ALP enzyme act/vol 83 [iU]/L Normal 39-117 [facility] Internal Medicine Work Phone: Comment on above: August 2018; PATIJERAMIE T WAS FASTINGPERFORMED BY: CB [facility] Flnihw3866 Mcghee RoadDublin [place] [id number] ALT [Catalytic activity/Vol] 54 U/L Abnormal 0-32 [facility] Internal Medicine Work Phone: Comment on above: August 2018; PATIJERAMIE T WAS FASTINGPERFORMED BY: [facility] Mqumio5784 Mc[address]hee RoadDublin [place] [id number] ALT enzyme act/vol 54 [iU]/L Abnormal 0-32 [facility] Internal Medicine Work Phone: Comment on above: August 2018; PATIJERAMIE T WAS FASTINGPERFORMED BY: [facility] Wtvpcy7995 Mc[address] RoadDublin [place] [id number] AST [Catalytic activity/Vol] 50 U/L Abnormal 0-40 [facility] Internal Medicine Work Phone: Comment on above: August 2018; EMILEE T WAS FASTINGPERFORMED BY: [facility] Cknaix5811 [address] RoadDublin [place] [id number] AST enzyme act/vol 50 [iU]/L Abnormal 0-40 [facility] Internal Medicine Work Phone: Comment on above: August 2018; PATIJERAMIE T WAS FASTINGPERFORMED BY: [facility] Fbwvky3099 [address] RoadDublin [place] [id number] Bilirubin mass conc 0.4 mg/dL Normal 0.0-1.2 [facility] Internal Medicine Work Phone: Comment on above: August 2018; EMILEE T WAS FASTINGPERFORMED BY: CB [facility] Qdufrh8456 [address] RoadDublin [place] [id number] Calcium mass conc 9.9 mg/dL Normal 8.7-10.3 Compreh ensive Internal Medicine Work Phone: Comment on above: August 2018; EMILEE Gilbert WAS FASTINGPERFORMED BY: CB [facility] Fgzxyx3919 Mcghee RoadAshe Memorial Hospitalin [place] [id number] Chloride molar conc 105 mmol/L Normal 96-106 Compr ehensive Internal Medicine Work Phone: Comment on above: August 2018; EMILEE Gilbert WAS FASTINGPERFORMED BY: CB [facility] Nshxuv[address] [facility] [id number] CO2 molar conc 21 mmol/L Normal 20-29 Comprehens michael Internal Medicine Work Phone: Comment on above: August 2018; EMILEE Gilbert WAS FASTINGPERFORMED BY: CB [facility] Vtfqfo2631 Mcg[address] RoadAtrium Health Kannapolis [id number] Creatinine mass conc 0.67 mg/dL Normal 0.57-1.00 Comp rehensive Internal Medicine Work Phone: Comment on above: August 2018; EMILEE Gilbert WAS FASTINGPERFORMED BY: CB [facility] Tbpvyq1861 Mcghee RoadAtrium Health K[facility] [id number] GFR/1.73 sq M predicted among blacks CKD-EPI vol rate/area (S/P/Bld) 101 mL/min/1.73 Normal Comprehe nsive Internal Medicine Work Phone: Comment on above: August 2018; EMILEE Gilbert WAS FASTINGPERFORMED BY: CB [facility] Pnyfsh7827 Mcghee RoadAshe Memorial Hospitalin [place] [id number] GFR/1.73 sq M predicted among non-blacks CKD-EPI vol rate/area (S/P/Bld) 87 mL/min/1.73 Normal [facility] Work Phone: Comment on above: August 2018; EMILEE Gilbert WAS FASTINGPERFORMED BY: CB [facility] Tkmpmq2344 [address] [facility] [id number] Globulin Calculated mass conc (S) 3.1 g/dL Normal 1.5-4.5 [facility] Work Phone: Globulin mass conc (S) 3.1 g/dL Normal 1.5-4.5 Co mprehensive Internal Medicine Work Phone: Comment on above: August 2018; EMILEE Gilbert WAS FASTINGPERFORMED BY: CB [facility] Canbjo3792 [address] RoadDublin [place] [id number] Glucose mass conc 150 mg/dL Abnormal 65-99 Compreh ensive Internal Medicine Work Phone: Comment on above: August 2018; EMILEE Gilbert WAS FASTINGPERFORMED BY: CB [facility] Puxlaz6272 Mc[address]hee RoadDuin [place] [id number] Potassium molar conc 4.8 mmol/L Normal 3.5-5.2 Comp rehensive Internal Medicine Work Phone: Comment on above: August 2018; EMILEE Gilbert WAS FASTINGPERFORMED BY: CB [facility] Fkzmhs7304 [address] RoadDuin [place] [id number] Protein mass conc 7.6 g/dL Normal 6.0-8.5 Compreh ensive Internal Medicine Work Phone: Comment on above: August 2018; EMILEE Gilbert WAS FASTINGPERFORMED BY: CB [facility] Kzqyuw[address] [facility] HospitalDuin [place] [id number] Sodium molar conc 142 mmol/L Normal 134-144 Compreh ensive Internal Medicine Work Phone: Comment on above: August 2018; EMILEE Gilbert WAS FASTINGPERFORMED BY: CB [facility] Pzwikh[address] [facility] [place] [id number] Urea nitrogen mass conc 13 mg/dL Normal 8-27 C omprehensive Internal Medicine Work Phone: Comment on above: August 2018; EMILEE Gilbert WAS FASTINGPERFORMED BY: CB [facility] Fhxmao4893 [address] [facility] HospitalDuin [place] [id number] Urea nitrogen/Creatinine mass ratio 19 mg/mg Normal 12-28 [facility] Work Phone: Comment on above: August 2018; EMILEE Gilbert WAS FASTINGPERFORMED BY: CB [facility] Awpsup47[address] [facility] [place] [id number] TSH (THYROID STIMULATING HOR BARRON) (38795)Ordered By: Wind Turbine Machinist on 09-30-2018 Thyrotropin Qn 5.560 {uIU/mL} Abnormal 0.450-4.50 0 [facility] Work Phone: Comment on above: August 2018; EMILEE Gilbert WAS FASTINGPERFORMED BY: ANGELI ZowPowmauri Ncuopj0754 [facility] [id number] Blood Glucose , Office (4196 2)Ordered By: Haseeb Sherwood on 06-14-2018 Glucose Glucometer molar conc (BldC) 115 1 Normal [facility] Work Phone: CALCIFEDIOL (02336)Ordered B y: Wind Turbine Machinist on 06-14-2018 25-Hydroxyvitamin D2+25-Hydroxyvitamin D3 mass conc 33.0 ng/mL Normal 30.0-100.0 [facility] Work Phone: Comment on above: Vitamin D deficiency has been defined by the Sherman ofMedicine and an Endocrine Society practice guideline as alevel of serum 25-OH vitamin D less than 20 ng/mL (1,2).The Endocrine Society went on to further define vitamin Dinsufficiency as a level between 21 and 29 ng/mL (2).1. IOM (Sherman of Medicine). 2010. Dietary reference intakes for calcium and D. [place]: The National Academies Press.2. Ace MF, [place], Cynthia COFFMAN, et al. Evaluation, treatment, and prevention of vitamin D deficiency: an Endocrine Society clinical practice guideline. JCEM. 2010; 96(7):1911-30. PATIENT NOT FASTINGP ERFORMED BY: ANGELI Fitwall6370 [facility] [id number] HgA1C , Office (13494)Ordere d By: Haseeb Sherwood on 06-14-2018 Hemoglobin A1c/Hemoglobin.total mass fraction (Bld) 6.9 % Normal 4.6 - 7.1 Comprehensiv e Internal Medicine Work Phone: Metabolic Panel, Comprehensi ve (17395)Ordered By: Wind Turbine Machinist on 06-14-2018 Albumin mass conc 4.6 g/dL Normal 3.5-4.8 Compreh ensive Internal Medicine Work Phone: Comment on above: PATIENT NOT FASTINGP ERFORMED BY: ANGELI [facility] Pehlyh[address] [facility] [place] [id number] Information: [id number] Albumin/Globulin mass ratio 1.5 {ratio} Normal 1.2-2.2 [facility] Work Phone: Comment on above: PATIENT NOT FASTINGP ERFORMED BY: [facility] Bvclyb[address] [facility] [id number] Information: [id number] ALP [Catalytic activity/Vol] 93 U/L Normal 39-117 [facility] Work Phone: Comment on above: PATIENT NOT FASTINGP ERFORMED BY: LabCoJFK Medical CenterFzhhga5276 [address] [facility] [facility] [id number] Information: [id number] ALP enzyme act/vol 93 [iU]/L Normal 39-117 [facility] Internal Medicine Work Phone: Comment on above: PATIENT NOT FASTINGP ERFORMED BY: [facility] Ddycyy6639 [facility] [id number] Information: [id number] ALT [Catalytic activity/Vol] 73 U/L Abnormal 0-32 [facility] Work Phone: Comment on above: PATIENT NOT FASTINGP ERFORMED BY: [facility] Llkktg9900 [facility] [id number] Information: [id number] ALT enzyme act/vol 73 [iU]/L Abnormal 0-32 [facility] Internal Medicine Work Phone: Comment on above: PATIENT NOT FASTINGP ERFORMED BY: CB [facility] Rxbfac4741 [facility] [place] [id number] Information: [id number] AST [Catalytic activity/Vol] 78 U/L Abnormal 0-40 [facility] Work Phone: Comment on above: PATIENT NOT FASTINGP ERFORMED BY: [facility] Xxkfyg3617 [facility] [place] [id number] Information: [id number] AST enzyme act/vol 78 [iU]/L Abnormal 0-40 Compre [facility] Work Phone: Comment on above: PATIENT NOT FASTINGP ERFORMED BY: ANGELI LabComauri CoelloXddjej0220 [facility] [id number] Information: [id number] Bilirubin mass conc 0.5 mg/dL Normal 0.0-1.2 Compr ensive Internal Medicine Work Phone: Comment on above: PATIENT NOT FASTINGP ERFORMED BY: ANGELI [facility] Jhtdwu1515 [facility] [id number] Information: [id number] Calcium mass conc 10.3 mg/dL Normal 8.7-10.3 Compreh [facility] Work Phone: Comment on above: PATIENT NOT FASTINGP ERFORMED BY: ANGELI [facility] Ijptnf5778 [facility] [id number] Information: [id number],[id number] Chloride molar conc 103 mmol/L Normal 96-106 Compr ensive Internal Medicine Work Phone: Comment on above: PATIENT NOT FASTINGP ERFORMED BY: ANGELI [facility] Qqhdeb8143 [facility] [id number] Information: [id number] CO2 molar conc 24 mmol/L Normal 20-29 Comprehens michael Internal Medicine Work Phone: Comment on above: PATIENT NOT FASTINGP ERFORMED BY: CB [facility] Xcjtdo1061 [facility] [id number] Information: [id number],[id number] Creatinine mass conc 0.78 mg/dL Normal 0.57-1.00 Comp [facility] Internal [facility] Work Phone: Comment on above: PATIENT NOT FASTINGP ERFORMED BY: ANGELI [facility] Gyksrz0065 [facility] [id number] Information: [id number],[id number] GFR/1.73 sq M predicted among blacks CKD-EPI vol rate/area (S/P/Bld) 88 mL/min/1.73 Normal Comprehe nsive Internal Medicine Work Phone: Comment on above: PATIENT NOT FASTINGP ERFORMED BY: ANGELI [facility] Vzejje6547 [facility] [id number] Information: [id number] GFR/1.73 sq M predicted among non-blacks CKD-EPI vol rate/area (S/P/Bld) 76 mL/min/1.73 Normal [facility] Work Phone: Comment on above: PATIENT NOT FASTINGP ERFORMED BY: [facility] Ldtose9828 [facility] [id number] Information: [id number],[id number] Globulin Calculated mass conc (S) 3.1 g/dL Normal 1.5-4.5 [facility] Work Phone: Globulin mass conc (S) 3.1 g/dL Normal 1.5-4.5 Co mprehensive Internal Medicine Work Phone: Comment on above: PATIENT NOT FASTINGP ERFORMED BY: [facility] Jphinj9358 [facility] [id number] Information: [id number] Glucose mass conc 113 mg/dL Abnormal 65-99 Compreh ensive Internal Medicine Work Phone: Comment on above: PATIENT NOT FASTINGP ERFORMED BY: [facility] Hughtr2795 [facility] [id number] Information: [id number] Potassium molar conc 5.0 mmol/L Normal 3.5-5.2 Comp rehensive Internal Medicine Work Phone: Comment on above: PATIENT NOT FASTINGP ERFORMED BY: CB [facility] Tjtxrt2183 [facility] [place] [id number] Information: [id number] Protein mass conc 7.7 g/dL Normal 6.0-8.5 Compreh ensive Internal Medicine Work Phone: Comment on above: PATIENT NOT FASTINGP ERFORMED BY: CB [facility] Ygtsdn1263 [facility] [id number] Information: 600354,[id number] Sodium molar conc 142 mmol/L Normal 134-144 Compreh ensive Internal Medicine Work Phone: Comment on above: PATIENT NOT FASTINGP ERFORMED BY: ANGELI Coello6370 [facility] [id number] Information: [id number] Urea nitrogen mass conc 13 mg/dL Normal 8-27 C omprehensive Internal Medicine Work Phone: Comment on above: PATIENT NOT FASTINGP ERFORMED BY: [facility]ELI [facility] Xlybjl0681 [facility] [id number] Information: [id number] Urea nitrogen/Creatinine mass ratio 17 mg/mg Normal 12-28 [facility] Work Phone: Comment on above: PATIENT NOT FASTINGP ERFORMED BY: NereydaB[facility] Wbjjzw[address] [id number] Information: [id number] T3, FREE (TRIDOTHYRONINE) (0 1010)Ordered By: Wind Turbine Machinist on 06-14-2018 T3 free mass conc 3.1 pg/mL Normal 2.0-4.4 Compreh ensive Internal Medicine Work Phone: Comment on above: PATIENT NOT FASTINGP ERFORMED BY: ANGELI DawnB[facility] Ykoili8676 [facility] [id number] T4, FREE (THYROXINE) (57036) Ordered By: Wind Turbine Machinist on 06-14-2018 T4 free mass conc 1.02 ng/dL Normal 0.82-1.77 Compreh ensive Internal Medicine Work Phone: Comment on above: PATIENT NOT FASTINGP ERFORMED BY: LabJeanne Ville 3412370 [facility] [id number] TSH (THYROID STIMULATING HOR BARRON) (30746)Ordered By: Wind Turbine Machinist on 06-14-2018 Thyrotropin Qn 4.540 {uIU/mL} Abnormal 0.450-4.50 0 [facility] Work Phone: Comment on above: PATIENT NOT FASTINGP ERFORMED BY: ANGELI [facility] Dhszmx5871 [address] RoadDublin [place] [id number] VITAMIN B12 AND FOLATES (826 07)Ordered By: Wind Turbine Machinist on 06-14-2018 Cobalamin (Vitamin B12) mass conc 863 pg/mL Normal 232-1245 [facility] Work Phone: Comment on above: PATIENT NOT FASTINGP ERFORMED BY: CB [facility] Mxdxkn5645 [address] RoadDublin [place] [id number] Folate mass conc 17.5 ng/mL Normal Comprehe nsive Internal Medicine Work Phone: Comment on above: A serum folate stephanie ntration of less than 3.1 ng/mL isconsidered to represent clinical deficiency. PATIENT NOT FASTINGP ERFORMED BY: ANGELI [facility] Iitlfk5614 [address] RoadDublin [place] [id number] Blood Glucose , Office (6896 2)Ordered By: Heidy Camacho on 03-15-2018 Glucose Glucometer molar conc (BldC) 214 1 Normal [facility] Work Phone: Comment on above: 214 HgA1C , Office (85389)Ordere d By: Heidy Camacho on 03-15-2018 Hemoglobin A1c/Hemoglobin.total mass fraction (Bld) 6.9 % Normal 4.6 - 7.1 Comprehensiv e Internal Medicine Work Phone: Comment on above: 6.9 Metabolic Panel, Comprehensi ve (15250)Ordered By: Wind Turbine Machinist on 03-09-2018 Albumin mass conc 4.6 g/dL Normal 3.5-4.8 Compreh ensive Internal Medicine Work Phone: Comment on above: PATIENT NOT FASTINGP ERFORMED BY: ANGELI [facility] Bomjlt3920 [address] RoadDublin [place] [id number] Albumin/Globulin mass ratio 1.6 {ratio} Normal 1.2-2.2 [facility] Work Phone: Comment on above: PATIENT NOT FASTINGP ERFORMED BY: ANGELI [facility] Ahddhx0318 [address] RoadDublin [place] [id number] ALP [Catalytic activity/Vol] 80 U/L Normal 39-117 [facility] Work Phone: Comment on above: PATIENT NOT FASTINGP ERFORMED BY: CB [facility] Ygwjkr4248 [address] RoadDublin [place] [id number] ALP enzyme act/vol 80 [iU]/L Normal 39-117 [facility] Internal Medicine Work Phone: Comment on above: PATIENT NOT FASTINGP ERFORMED BY: ANGELI [facility] Ejewxi3148 [address] RoadDublin [place] [id number] ALT [Catalytic activity/Vol] 55 U/L Abnormal 0-32 [facility] Work Phone: Comment on above: PATIENT NOT FASTINGP ERFORMED BY: CB [facility] Yrvpwd9264 [address] RoadDublin [place] [id number] ALT enzyme act/vol 55 [iU]/L Abnormal 0-32 [facility] Internal Medicine Work Phone: Comment on above: PATIENT NOT FASTINGP ERFORMED BY: ANGELI [facility] Jcdiwu4145 [address] RoadDublin [place] [id number] AST [Catalytic activity/Vol] 53 U/L Abnormal 0-40 [facility] Internal Medicine Work Phone: Comment on above: PATIENT NOT FASTINGP ERFORMED BY: ANGELI [facility] Rpiidq0165 [address] RoadDublin [place] [id number] AST enzyme act/vol 53 [iU]/L Abnormal 0-40 [facility] Internal Medicine Work Phone: Comment on above: PATIENT NOT FASTINGP ERFORMED BY: CB [facility] Qdbifg6042 [address]Dublin [place] [id number] Bilirubin mass conc 0.4 mg/dL Normal 0.0-1.2 [facility] Internal Medicine Work Phone: Comment on above: PATIENT NOT FASTINGP ERFORMED BY: CB [facility] Pmrcqu6832 [address] RoadDublin [place] [id number] Calcium mass conc 10.0 mg/dL Normal 8.7-10.3 [facility] Internal Medicine Work Phone: Comment on above: PATIENT NOT FASTINGP ERFORMED BY: CB [facility] Ycsfoy2551 [address] RoadDublin [place] [id number] Chloride molar conc 101 mmol/L Normal 96-106 Compr ehensive Internal Medicine Work Phone: Comment on above: PATIENT NOT FASTINGP ERFORMED BY: ANGELI LabComauri WeldonCufexr5056 Mc[address] Roadblin [place] [id number] CO2 molar conc 22 mmol/L Normal 18-29 Comprehens michael Internal Medicine Work Phone: Comment on above: PATIENT NOT FASTINGP ERFORMED BY: CB [facility] Vmnmrh1918 [facility] [id number] Creatinine mass conc 0.74 mg/dL Normal 0.57-1.00 Comp rehensive Internal Medicine Work Phone: Comment on above: PATIENT NOT FASTINGP ERFORMED BY: ANGELI [facility] Tpvwif7358 [facility] [id number] GFR/1.73 sq M predicted among blacks CKD-EPI vol rate/area (S/P/Bld) 94 mL/min/1.73 Normal Comprehe nsive Internal Medicine Work Phone: Comment on above: PATIENT NOT FASTINGP ERFORMED BY: ANGELI [facility] Dkrhem8735 [facility] [id number] GFR/1.73 sq M predicted among non-blacks CKD-EPI vol rate/area (S/P/Bld) 81 mL/min/1.73 Normal [facility] Work Phone: Comment on above: PATIENT NOT FASTINGP ERFORMED BY: ANGELI [facility] Qxqwbu2586 [facility] [id number] Globulin Calculated mass conc (S) 2.8 g/dL Normal 1.5-4.5 [facility] Work Phone: Globulin mass conc (S) 2.8 g/dL Normal 1.5-4.5 Co [facility]erehens[facility] Internal [facility] Work Phone: Comment on above: PATIENT NOT FASTINGP ERFORMED BY: CB [facility] Uqloch7233 [facility] [id number] Glucose mass conc 138 mg/dL Abnormal 65-99 Compreh ensive Internal Medicine Work Phone: Comment on above: PATIENT NOT FASTINGP ERFORMED BY: ANGELI LabDajuan WeldonPcvmor9892 [facility] [place] [id number] Potassium molar conc 4.4 mmol/L Normal 3.5-5.2 Comp rehensive Internal Medicine Work Phone: Comment on above: PATIENT NOT FASTINGP ERFORMED BY: ANGELI Weldonlin6370 [facility] [place] [id number] Protein mass conc 7.4 g/dL Normal 6.0-8.5 Compreh ensive Internal Medicine Work Phone: Comment on above: PATIENT NOT FASTINGP ERFORMED BY: ANGELI [facility] Pgjhwy5743 [facility] [id number] Sodium molar conc 140 mmol/L Normal 134-144 Compreh ensive Internal Medicine Work Phone: Comment on above: PATIENT NOT FASTINGP ERFORMED BY: ANGELI LabDajuan Coello6370 [facility] [id number] Urea nitrogen mass conc 15 mg/dL Normal 8-27 C omprehensive Internal Medicine Work Phone: Comment on above: PATIENT NOT FASTINGP ERFORMED BY: ANGELI LabDajuan Coello6370 [facility] [id number] Urea nitrogen/Creatinine mass ratio 20 mg/mg Normal 12-28 [facility] Work Phone: Comment on above: PATIENT NOT FASTINGP ERFORMED BY: ANGELI [facility] Vguxgj9947 [facility] [id number] T3, FREE (TRIDOTHYRONINE) (0 0462)Ordered By: Wind Turbine Machinist on 03-09-2018 T3 free mass conc 3.1 pg/mL Normal 2.0-4.4 Compreh ensive Internal Medicine Work Phone: Comment on above: PATIENT NOT FASTINGP ERFORMED BY: ANGELI [facility] Xrekdk7102 [facility] [place] [id number] T4, FREE (THYROXINE) (20597) Ordered By: Wind Turbine Machinist on 03-09-2018 T4 free mass conc 0.99 ng/dL Normal 0.82-1.77 Compreh ensive Internal Medicine Work Phone: Comment on above: PATIENT NOT FASTINGP ERFORMED BY: CB [facility] Kyijpd2616 [facility] [id number] TSH (THYROID STIMULATING HOR BARRON) (36765)Ordered By: Wind Turbine Machinist on 03-09-2018 Thyrotropin Qn 7.250 {uIU/mL} Abnormal 0.450-4.50 0 [facility] Work Phone: Comment on above: PATIENT NOT FASTINGP ERFORMED BY: CB [facility] Ecmcif5369 [facility] [id number] Blood Glucose , Office (1481 2)Ordered By: Latrice Levy on 12-06-2017 Glucose Glucometer molar conc (BldC) 142 1 Normal [facility] Work Phone: Comment on above: ate breakfast HgA1C , Office (29719)Ordere d By: Latrice Levy on 12-06-2017 Hemoglobin A1c/Hemoglobin.total mass fraction (Bld) 6.7 % Normal 4.6 - 7.1 Comprehensiv e Internal Medicine Work Phone: CALCIFEDIOL (97592)Ordered B y: Wind Turbine Machinist on 11-30-2017 25-Hydroxyvitamin D2+25-Hydroxyvitamin D3 mass conc 26.6 ng/mL Abnormal 30.0-100.0 [facility] Work Phone: Comment on above: Vitamin D deficiency has been defined by the [place] ofMedicine and an Endocrine Society practice guideline as alevel of serum 25-OH vitamin D less than 20 ng/mL (1,2).The Endocrine Society went on to further define vitamin Dinsufficiency as a level between 21 and 29 ng/mL (2).1. IOM ([place] of Medicine). 2010. Dietary reference intakes for calcium and D. [place]: The National Academies Press.2. Ace MF, [place], Cynthia COFFMAN, et al. Evaluation, treatment, and prevention of vitamin D deficiency: an Endocrine Society clinical practice guideline. JCEM. 2010; 96(7):1911-30. Oct 2017; PATIENT NO T FASTINGPERFORMED BY: [facility] Modeob8496 [facility] [place] [id number] Metabolic Panel, Comprehensi ve (94339)Ordered By: Wind Turbine Machinist on 11-30-2017 Albumin mass conc 4.6 g/dL Normal 3.5-4.8 Compreh [facility] Internal Medicine Work Phone: Comment on above: Oct 2017; PATIENT NO T FASTINGPERFORMED BY: CB [facility] Vrxcwt2364 [address]Dublin [place] [id number] Albumin/Globulin mass ratio 1.4 {ratio} Normal 1.2-2.2 [facility] Work Phone: Comment on above: Oct 2017; PATIENT NO T FASTINGPERFORMED BY: CB [facility] Jxufmf7513 [address]Dublin [place] [id number] ALP [Catalytic activity/Vol] 87 U/L Normal 39-117 [facility] Work Phone: Comment on above: Oct 2017; PATIENT NO T FASTINGPERFORMED BY: CB [facility] Gdvxok4546 [address] RoadDuin [place] [id number] ALP enzyme act/vol 87 [iU]/L Normal 39-117 [facility] Internal Medicine Work Phone: Comment on above: Oct 2017; PATIENT NO T FASTINGPERFORMED BY: CB [facility] Sfwklb0364 [address]bl[address] [place] [id number] ALT [Catalytic activity/Vol] 49 U/L Abnormal 0-32 [facility] Work Phone: Comment on above: Oct 2017; PATIENT NO T FASTINGPERFORMED BY: CB [facility] Tjhhdn0725 [address]Dublin [place] [id number] ALT enzyme act/vol 49 [iU]/L Abnormal 0-32 [facility] Internal Medicine Work Phone: Comment on above: Oct 2017; PATIENT NO T FASTINGPERFORMED BY: CB [facility] Bsdxkq5886 [address]Dublin [place] [id number] AST [Catalytic activity/Vol] 41 U/L Abnormal 0-40 [facility] Work Phone: Comment on above: Oct 2017; PATIENT NO T FASTINGPERFORMED BY: CB [facility] Hgrusi9165 [address]bl[address] [place] [id number] AST enzyme act/vol 41 [iU]/L Abnormal 0-40 Compre [facility] Internal Medicine Work Phone: Comment on above: Oct 2017; PATIENT NO T FASTINGPERFORMED BY: CB [facility] Uxalsy1423 [address]Dublin [place] [id number] Bilirubin mass conc 0.3 mg/dL Normal 0.0-1.2 Compr ensive Internal Medicine Work Phone: Comment on above: Oct 2017; PATIENT NO T FASTINGPERFORMED BY: CB [facility] Lrpabm5768 [address]Dublin [place] [id number] Calcium mass conc 10.0 mg/dL Normal 8.7-10.3 Compreh [facility] hospitalive Internal Medicine Work Phone: Comment on above: Oct 2017; PATIENT NO T FASTINGPERFORMED BY: ANGELI [facility] Ejnirk7916 [address] RoadAshe [facility] Hospitalin [place] [id number] Chloride molar conc 100 mmol/L Normal 96-106 Compr ensive Internal Medicine Work Phone: Comment on above: Oct 2017; PATIENT NO T FASTINGPERFORMED BY: ANGELI [facility] Ieviky2352 [address] RoadAshe Memorial Hospitalin [place] [id number] CO2 molar conc 24 mmol/L Normal 18-[address] [facility] Internal Medicine Work Phone: Comment on above: Oct 2017; PATIENT NO T FASTINGPERFORMED BY: ANGELI [facility] Irnomk0172 [address] [id number] Creatinine mass conc 0.69 mg/dL Normal 0.57-1.00 Comp [facility] centerensive Internal Medicine Work Phone: Comment on above: Oct 2017; PATIENT NO T FASTINGPERFORMED BY: CB [facility] Jponnn9898 [address] RoadAshe Memorial Hospitalin [place] [id number] GFR/1.73 sq M predicted among blacks CKD-EPI vol rate/area (S/P/Bld) 101 mL/min/1.73 Normal Comprehe ive Internal Medicine Work Phone: Comment on above: Oct 2017; PATIENT NO T FASTINGPERFORMED BY: CB [facility] Fdmlsu7061 [address] RoadDublin [place] [id number] GFR/1.73 sq M predicted among non-blacks CKD-EPI vol rate/area (S/P/Bld) 87 mL/min/1.73 Normal [facility] Work Phone: Comment on above: Oct 2017; PATIENT NO T FASTINGPERFORMED BY: CB [facility] Wysggy1181 [address] RoadDublin [place] [id number] Globulin Calculated mass conc (S) 3.2 g/dL Normal 1.5-4.5 [facility] Work Phone: Globulin mass conc (S) 3.2 g/dL Normal 1.5-4.5 Co mprehensive Internal Medicine Work Phone: Comment on above: Oct 2017; PATIENT NO T FASTINGPERFORMED BY: CB [facility] Hutxmx7008 Mcg[address] RoadYoBuckoblin [place] [id number] Glucose mass conc 125 mg/dL Abnormal 65-99 Compreh ensive Internal Medicine Work Phone: Comment on above: Oct 2017; PATIENT NO T FASTINGPERFORMED BY: CB [facility] Mjfrgz1257 [address] RoadYoBuckoin [place] [id number] Potassium molar conc 4.7 mmol/L Normal 3.5-5.2 Comp rehensive Internal Medicine Work Phone: Comment on above: Oct 2017; PATIENT NO T FASTINGPERFORMED BY: CB [facility] Tckzyv9715 [address] RoadDublin [place] [id number] Protein mass conc 7.8 g/dL Normal 6.0-8.5 Compreh ensive Internal Medicine Work Phone: Comment on above: Oct 2017; PATIENT NO T FASTINGPERFORMED BY: CB [facility] Samypl6640 [address] RoadDublin [place] [id number] Sodium molar conc 141 mmol/L Normal 134-144 Compreh ensive Internal Medicine Work Phone: Comment on above: Oct 2017; PATIENT NO T FASTINGPERFORMED BY: CB [facility] Yjocax6172 [address] RoadDublin [place] [id number] Urea nitrogen mass conc 19 mg/dL Normal 8-27 C omprehensive Internal Medicine Work Phone: Comment on above: Oct 2017; PATIENT NO T FASTINGPERFORMED BY: ANGELI [facility] Hkchiz8669 [facility] [id number] Urea nitrogen/Creatinine mass ratio 28 mg/mg Normal 12-28 [facility] Work Phone: Comment on above: Oct 2017; PATIENT NO T FASTINGPERFORMED BY: ANGELI [facility] Ewcpzs5214 [facility] [id number] TSH (THYROID STIMULATING HOR BARRON) (04595)Ordered By: Wind Turbine Machinist on 11-30-2017 Thyrotropin Qn 5.470 {uIU/mL} Abnormal 0.450-4.50 0 [facility] Work Phone: Comment on above: Oct 2017; PATIENT NO T FASTINGPERFORMED BY: ANGELI [facility] Hfcdto1863 [facility] [id number] [place] Procedure Noteon [place] Procedure Note Normal A [facility] ([place]) Final Surgical Pathology Rep [facility] 09-21-2017 Final Surgical Pathology Report . 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 - THE INKED AND CAUTERIZED MARGIN FOCALLY HAS ADENOMATOUS CHANGE BUT IS NEGATIVE FOR HIGH GRADE DYSPLASIA.C) PROXIMAL TRANSVERSE COLON, BIOPSY: - TUBULAR ADENOMA.COMMENT:[facility]# [id number] INFORMATION:Procedure: COLONOSCOPY WITH POLYP BIOPSY / COLD [...] cm. A S -1Dictated by RAYMUNDO REDD ([facility])MICROSCOPIC DESCRIPTION:Slides reviewed.Electronically Signed byPathology Report verified by [facility] HospitalElectronically signed by RAMIN Atkins out Date: 09/21/2017 14:09Performing Lab: [facility], [address] [place] [address] Normal Pending Sale To [facility] ([place]) Comment on above: Performed By: #### S PFR ####[facility] [place] [address] AO ENDO Procedure Recordon 09-20-2017 AO ENDO Procedure Record Normal [facility]) Anesthesiology Consultationo n 09-20-2017 Anesthesiology Consultation Normal [facility]) History and Physicalon 09-20 History and Physical Normal [facility]) Blood Glucose , Office (2296 2)Ordered By: Latrice Levy on 08-10-2017 Glucose Glucometer molar conc (BldC) 90 1 Normal [facility] Work Phone: HgA1C , Office ([id number])Ordere d By: Latrice Levy on 08-10-2017 Hemoglobin A1c/Hemoglobin.total mass fraction (Bld) 6.2 % Normal 4.6 - 7.1 Comprehensiv e Internal Medicine Work Phone: [id number] ([phone])Ordered By: Wind Turbine Machinist on 08-03-2017 AFP.tumor marker mass conc 3.7 ng/mL Normal 0.0-8.3 [facility] Work Phone: Comment on above: Nora ECLIA methodol ogy Jul 2017; PATIENT W FASTINGPERFORMED BY: [facility] Lumirn7398 [facility] [id number] Lipid Panel (38009)Ordered B y: Wind Turbine Machinist on 08-03-2017 Cholesterol in HDL mass conc 52 mg/dL Normal [facility] Work Phone: Comment on above: Jul 2017; PATIENT W FASTINGPERFORMED BY: ANGELI LabDajuan WeldonBmnoap1725 [facility] [id number] Cholesterol in LDL mass conc 142 mg/dL Abnormal 0-99 [facility] Work Phone: Comment on above: Jul 2017; PATIENT W FASTINGPERFORMED BY: ANGELI LabDajuan WeldonWnyxtc9050 [facility] [id number] Cholesterol in LDL/Cholesterol in HDL mass ratio 2.7 {ratio_units} Normal 0.0-3.2 [facility] Work Phone: Comment on above: LDL/HDL Ratio Men Wo men 1/2 Avg.Risk 1.0 1.5 Avg.Risk 3.6 3.2 2X Avg.Risk 6.2 5.0 3X Avg.Risk 8.0 6.1 Jul 2017; PATIENT W FASTINGPERFORMED BY: ANGELI Weldonlin6370 [facility] [id number] Cholesterol in VLDL mass conc 24 mg/dL Normal 5-40 [facility] Work Phone: Comment on above: Jul 2017; PATIENT W FASTINGPERFORMED BY: ANGELI LabDajuan WeldonGktqkc6130 [facility] [id number] Cholesterol mass conc 218 mg/dL Abnormal 100-199 Com prehensive Internal Medicine Work Phone: Comment on above: Jul 2017; PATIENT W FASTINGPERFORMED BY: ANGELI LabDajuan WeldonYyrxer0688 [facility] [id number] Triglyceride mass conc 118 mg/dL Normal 0-149 [facility] Work Phone: Comment on above: Jul 2017; PATIENT W FASTINGPERFORMED BY: ANGELI LabComauri WeldonLqmuah1408 [facility] [id number] Metabolic Panel, Comprehensi ve (23223)Ordered By: Wind Turbine Machinist on 08-03-2017 Albumin mass conc 4.2 g/dL Normal 3.5-4.8 Compreh ensive Internal Medicine Work Phone: Comment on above: jul 2017; PATIENT W FASTINGPERFORMED BY: CB [facility] Oqdcdg9986 [address] RoadDublin [place] [id number] Albumin/Globulin mass ratio 1.4 {ratio} Normal 1.2-2.2 [facility] Work Phone: Comment on above: jul 2017; PATIENT W FASTINGPERFORMED BY: CB [facility] Tzproi4582 [address] RoadDublin [place] [id number] ALP [Catalytic activity/Vol] 78 U/L Normal 39-117 [facility] Work Phone: Comment on above: jul 2017; PATIENT W FASTINGPERFORMED BY: CB [facility] Knnvmk4582 [address] RoadDublin [place] [id number] ALP enzyme act/vol 78 [iU]/L Normal 39-117 [facility] Internal Medicine Work Phone: Comment on above: jul 2017; PATIENT W FASTINGPERFORMED BY: CB [facility] Woafce1236 [address] RoadDublin [place] [id number] ALT [Catalytic activity/Vol] 43 U/L Abnormal 0-32 [facility] Work Phone: Comment on above: ADDENDA: Stable. OV 10 aug 2017; PATIENT W FASTINGPERFORMED BY: CB [facility] Iwzlhe2278 [address] RoadDublin [place] [id number] ALT enzyme act/vol 43 [iU]/L Abnormal 0-32 [facility] Internal Medicine Work Phone: Comment on above: ADDENDA: Stable. OV 10 aug 2017; PATIENT W FASTINGPERFORMED BY: CB [facility] Rlucqs7317 [address] RoadDublin [place] [id number] AST [Catalytic activity/Vol] 39 U/L Normal 0-40 [facility] Work Phone: Comment on above: jul 2017; PATIENT W FASTINGPERFORMED BY: CB [facility] Hhiykp6931 [address] RoadDublin [place] [id number] AST enzyme act/vol 39 [iU]/L Normal 0-40 [facility] Internal Medicine Work Phone: Comment on above: jul 2017; PATIENT W FASTINGPERFORMED BY: CB [facility] Eylfbg8280 [address] RoadDublin [place] [id number] Bilirubin mass conc 0.3 mg/dL Normal 0.0-1.2 Compr ensive Internal Medicine Work Phone: Comment on above: jul 2017; PATIENT W FASTINGPERFORMED BY: CB [facility] Plavvo3208 [address] RoadDublin [place] [id number] Calcium mass conc 9.5 mg/dL Normal 8.7-10.3 Compreh ensive Internal Medicine Work Phone: Comment on above: jul 2017; PATIENT W FASTINGPERFORMED BY: CB [facility] Dscrsr6162 [address] RoadDublin [place] [id number] Chloride molar conc 104 mmol/L Normal 96-106 Compr [facility] Internal Medicine Work Phone: Comment on above: jul 2017; PATIENT W FASTINGPERFORMED BY: CB [facility] Tikfip0471 [address] RoadDublin [place] [id number] CO2 molar conc 22 mmol/L Normal 18-29 Comprehens michael Internal Medicine Work Phone: Comment on above: jul 2017; PATIENT W FASTINGPERFORMED BY: CB [facility] Cfobgm6929 [address] RoadDublin [place] [id number] Creatinine mass conc 0.68 mg/dL Normal 0.57-1.00 Comp [facility] centerensive Internal Medicine Work Phone: Comment on above: jul 2017; PATIENT W FASTINGPERFORMED BY: CB [facility] Zmfszm0782 [address] RoadDublin [place] [id number] GFR/1.73 sq M predicted among blacks CKD-EPI vol rate/area (S/P/Bld) 101 mL/min/1.73 Normal Comprehe nsive Internal Medicine Work Phone: Comment on above: jul 2017; PATIENT W FASTINGPERFORMED BY: CB [facility] Hmsxwd1475 [address] RoadDublin [place] [id number] GFR/1.73 sq M predicted among non-blacks CKD-EPI vol rate/area (S/P/Bld) 88 mL/min/1.73 Normal [facility] Work Phone: Comment on above: jul 2017; PATIENT W FASTINGPERFORMED BY: ANGELI [facility] Yakwff7698 [address] [facility]thinkAt[facility] [id number] Globulin Calculated mass conc (S) 3.1 g/dL Normal 1.5-4.5 [facility] Work Phone: Globulin mass conc (S) 3.1 g/dL Normal 1.5-4.5 Co mprehensive Internal Medicine Work Phone: Comment on above: jul 2017; PATIENT W FASTINGPERFORMED BY: ANGELI [facility] Puiqwo9504 [address] [facility]thinkAt[facility] [id number] Glucose mass conc 104 mg/dL Abnormal 65-99 Compreh ensive Internal Medicine Work Phone: Comment on above: jul 2017; PATIENT W FASTINGPERFORMED BY: ANGELI [facility] Vsrzoq6885 [address] [facility]thinkAt[facility] [id number] Potassium molar conc 4.9 mmol/L Normal 3.5-5.2 Comp rehensive Internal Medicine Work Phone: Comment on above: jul 2017; PATIENT W FASTINGPERFORMED BY: ANGELI [facility] Btwzfs7142 [address] [facility]uaFirstHealth [id number] Protein mass conc 7.3 g/dL Normal 6.0-8.5 Compreh ensive Internal Medicine Work Phone: Comment on above: jul 2017; PATIENT W FASTINGPERFORMED BY: ANGELI [facility] Naqhnb9162 [address] [facility]thinkAt[facility] [id number] Sodium molar conc 144 mmol/L Normal 134-144 Compreh ensive Internal Medicine Work Phone: Comment on above: jul 2017; PATIENT W FASTINGPERFORMED BY: ANGELI [facility] Kmpgvy8380 [facility] [id number] Urea nitrogen mass conc 12 mg/dL Normal 8-27 C omprehensive Internal Medicine Work Phone: Comment on above: jul 2017; PATIENT W FASTINGPERFORMED BY: ANGELI [facility] Owfonh2921 [facility] [id number] Urea nitrogen/Creatinine mass ratio 18 mg/mg Normal 12- [facility] Work Phone: Comment on above: jul 2017; PATIENT W FASTINGPERFORMED BY: ANGELI ZowPow Onxnqz4003 [facility] [id number] Blood Glucose , Office (6996 2)Ordered By: Federica Olivarez on 05-07-2017 Glucose Glucometer molar conc (BldC) 132 1 Normal [facility] Work Phone: HgA1C , Office ([phone])Ordere d By: Federica Olivarez on 05-07-2017 Hemoglobin A1c/Hemoglobin.total mass fraction (Bld) 6.1 % Normal 4.6 - 7.1 Comprehensiv e Internal Medicine Work Phone: Comment on above: 6.1 CALCIFEDIOL (54706)Ordered B y: Wind Turbine Machinist on 02-03-2017 25-Hydroxyvitamin D2+25-Hydroxyvitamin D3 mass conc 36.7 ng/mL Normal 30.0-100.0 [facility] Work Phone: Comment on above: Vitamin D deficiency has been defined by the [place] ofMedicine and an Endocrine Society practice guideline as alevel of serum 25-OH vitamin D less than 20 ng/mL (1,2).The Endocrine Society went on to further define vitamin Dinsufficiency as a level between 21 and 29 ng/mL (2).1. IOM ([place] of Medicine). 2010. Dietary reference intakes for calcium and D. [place]: The National Academies Press.2. Ace MF, Lurdes NC, Cynthia COFFMAN, et al. Evaluation, treatment, and prevention of vitamin D deficiency: an Endocrine Society clinical practice guideline. JCEM. 2010; 96(7):1911-30. PATIENT WAS FASTINGP ERFORMED BY: ANEGLI ZowPow Ajukzd5263 [facility] [id number] MICROALBUMINOrdered By: Syst em Ticket Maker on 02-03-2017 Albumin DL <= 20 mg/L mass conc (U) 5.1 ug/mL Normal [facility] Work Phone: Comment on above: PATIENT WAS FASTINGP ERFORMED BY: ANGELI [facility] Qedmhr9887 [facility] [id number] Albumin/Creatinine mass ratio (U) 4.4 {mg/g_creat} Normal 0.0-30.0 [facility] Work Phone: Comment on above: PATIENT WAS FASTINGP ERFORMED BY: [facility] Ynfhcn0659 [facility] [id number] Creatinine mass conc (U) 117.0 mg/dL Normal [facility] Work Phone: Comment on above: PATIENT WAS FASTINGP ERFORMED BY: Lab[facility] Bqzipw9067 [facility] [id number] Metabolic Panel, Comprehensi ve (65779)Ordered By: Wind Turbine Machinist on 02-03-2017 Albumin/Globulin mass ratio 1.4 {ratio} [...] - 2.2 PATIENT WAS FASTINGP ERFORMED BY: [facility] Kakxtd3157 [facility] [id number]; ov 02/09 ALP [Catalytic activity/Vol] 82 U/L Normal 39-117 [facility] Work Phone: Comment on above: PATIENT WAS FASTINGP ERFORMED BY: LabCo Llcanf7033 [facility] [id number]; ov 02/09 ALP enzyme act/vol 82 [iU]/L Normal 39-117 [facility] Internal Medicine Work Phone: Comment on above: PATIENT WAS FASTINGP ERFORMED BY: [facility] Dmtven0980 [address] RoadDublin [place] [id number]; ov 3/14 ALT [Catalytic activity/Vol] 50 U/L Abnormal 0-32 [facility] Work Phone: Comment on above: PATIENT WAS FASTINGP ERFORMED BY: CB [facility] Mpyuqu9227 [address] RoadDublin [place] [id number]; ov 3/14 ALT enzyme act/vol 50 [iU]/L Abnormal 0-32 [facility] Internal Medicine Work Phone: Comment on above: PATIENT WAS FASTINGP ERFORMED BY: CB [facility] Wcinld8997 [address] RoadDublin [place] [id number]; ov 314 AST [Catalytic activity/Vol] 43 U/L Abnormal 0-40 [facility] Internal Medicine Work Phone: Comment on above: PATIENT WAS FASTINGP ERFORMED BY: CB [facility] Vsqyfx6992 [address] RoadDublin [place] [id number]; ov 314 AST enzyme act/vol 43 [iU]/L Abnormal 0-40 [facility] Internal Medicine Work Phone: Comment on above: PATIENT WAS FASTINGP ERFORMED BY: CB [facility] Udzklt2749 [address] RoadDublin [place] [id number]; ov 3/14 Bilirubin mass conc 0.3 mg/dL Normal 0.0-1.2 [facility] Internal Medicine Work Phone: Comment on above: PATIENT WAS FASTINGP ERFORMED BY: CB [facility] Ethrwv4163 [address] RoadDublin [place] [id number]; ov 3/14 Calcium mass conc 9.8 mg/dL Normal 8.7-10.3 [facility] Internal Medicine Work Phone: Comment on above: PATIENT WAS FASTINGP ERFORMED BY: CB [facility] Jvhhup4687 [address] RoadDublin [place] [id number]; ov 3/14 Chloride molar conc 102 mmol/L Normal 96-106 [facility] Internal Medicine Work Phone: Comment on above: PATIENT WAS FASTINGP ERFORMED BY: CB [facility] Mwwkhr8002 [address] RoadDublin [place] [id number]; ov 3/14 CO2 molar conc 21 mmol/L Normal 18-29 Comprehens michael Internal Medicine Work Phone: Comment on above: PATIENT WAS FASTINGP ERFORMED BY: CB [facility] Ksfwgr3685 [address] [facility] [id number]; ov 3/14 Creatinine mass conc 0.67 mg/dL Normal 0.57-1.00 Comp rehensive Internal Medicine Work Phone: Comment on above: PATIENT WAS FASTINGP ERFORMED BY: CB [facility] Hoqehk1565 [address] [facility] [id number]; ov 3/14 GFR/1.73 sq M predicted among blacks CKD-EPI vol rate/area (S/P/Bld) 102 mL/min/1.73 Normal Comprehe nsive Internal Medicine Work Phone: Comment on above: PATIENT WAS FASTINGP ERFORMED BY: ANGELI [facility] Jqfyiv9657 [facility] [id number]; ov 3/14 GFR/1.73 sq M predicted among non-blacks CKD-EPI vol rate/area (S/P/Bld) 89 mL/min/1.73 Normal [facility] Work Phone: Comment on above: PATIENT WAS FASTINGP ERFORMED BY: ANGELI [facility] Ebkbpx8506 [facility] [id number]; ov 3/14 Globulin Calculated mass conc (S) 3.1 g/dL Normal 1.5-4.5 [facility] Work Phone: Globulin mass conc (S) 3.1 g/dL Normal 1.5-4.5 Co [facility]erensive Internal Medicine Work Phone: Comment on above: PATIENT WAS FASTINGP ERFORMED BY: CB [facility] Trfwgy2719 [facility] [id number]; ov 3/14 Potassium molar conc 5.1 mmol/L Normal 3.5-5.2 Comp rehensive Internal Medicine Work Phone: Comment on above: PATIENT WAS FASTINGP ERFORMED BY: CB [facility] Pwnfqn8186 [address] RoadDublin [place] [id number]; ov 3/14 Protein mass conc 7.4 g/dL Normal 6.0-8.5 Compreh ensive Internal Medicine Work Phone: Comment on above: PATIENT WAS FASTINGP ERFORMED BY: CB [facility] Eqggat9997 [address] RoadDublin [place] [id number]; ov 314 Sodium molar conc 142 mmol/L Normal 134-144 Compreh ensive Internal Medicine Work Phone: Comment on above: PATIENT WAS FASTINGP ERFORMED BY: CB [facility] Dspeiv0872 [address] RoadDublin [place] [id number]; ov 314 PATIENT WAS FASTINGP ERFORMED BY: CB [facility] Ynpycf9853 [address] RoadDublin [place] [id number] Urea nitrogen mass conc 12 mg/dL Normal 8-27 C omprehensive Internal Medicine Work Phone: Comment on above: PATIENT WAS FASTINGP ERFORMED BY: CB [facility] Lcunxm6282 [address] RoadDublin [place] [id number] PATIENT WAS FASTINGP ERFORMED BY: CB [facility] Nvhtag8097 [address] RoadDublin [place] [id number]; ov 314 Urea nitrogen/Creatinine mass ratio 18 mg/mg Normal 11-26 [facility] Work Phone: Comment on above: PATIENT WAS FASTINGP ERFORMED BY: CB [facility] Ejlefd1523 [address] RoadDublin [place] [id number]; ov 314 Renal function Panel (10038) Ordered By: Wind Turbine Machinist on 02-03-2017 Albumin mass conc 4.3 g/dL Normal 3.5-4.8 Compreh ensive Internal Medicine Work Phone: Comment on above: PATIENT WAS FASTINGP ERFORMED BY: CB [facility] Dkjkbm4728 [address] RoadDublin [place] [id number] PATIENT WAS FASTINGP ERFORMED BY: CB [facility] Oehrwy6131 [address] RoadDublin [place] [id number]; ov 3/14 Calcium mass conc 9.9 mg/dL Normal 8.7-10.3 Compreh ensive Internal Medicine Work Phone: Comment on above: PATIENT WAS FASTINGP ERFORMED BY: ANGELI [facility] Wxrxlr6738 [address] RoadDublin [place] [id number] Chloride molar conc 101 mmol/L Normal 96-106 Compr ehensive Internal Medicine Work Phone: Comment on above: PATIENT WAS FASTINGP ERFORMED BY: ANGELI [facility] Iwnpha2894 [address] RoadDublin [place] [id number] CO2 molar conc 23 mmol/L Normal 18-29 Comprehens michael Internal Medicine Work Phone: Comment on above: PATIENT WAS FASTINGP ERFORMED BY: ANGELI [facility] Oamwvv9120 [address] RoadDublin [place] [id number] Creatinine mass conc 0.64 mg/dL Normal 0.57-1.00 Comp rehensive Internal Medicine Work Phone: Comment on above: PATIENT WAS FASTINGP ERFORMED BY: ANGELI [facility] Vozpvr2432 [address] RoadDublin [place] [id number] GFR/1.73 sq M predicted among blacks CKD-EPI vol rate/area (S/P/Bld) 104 mL/min/1.73 Normal Comprehe nsive Internal Medicine Work Phone: Comment on above: PATIENT WAS FASTINGP ERFORMED BY: ANGELI [facility] Suaglz3353 [address] RoadDublin [place] [id number] GFR/1.73 sq M predicted among non-blacks CKD-EPI vol rate/area (S/P/Bld) 90 mL/min/1.73 Normal [facility] Work Phone: Comment on above: PATIENT WAS FASTINGP ERFORMED BY: ANGELI [facility] Eciatt3418 [address] RoadDublin [place] [id number] Glucose mass conc 108 mg/dL Abnormal 65-99 Compreh ensive Internal Medicine Work Phone: Comment on above: PATIENT WAS FASTINGP ERFORMED BY: ANGELI [facility] Wnmfaq8230 [address] RoadDublin [place] [id number] PATIENT WAS FASTINGP ERFORMED BY: CB [facility] Hzagsg5085 [address] RoadDublin [place] [id number]; ov 3/14 Phosphate mass conc 3.5 mg/dL Normal 2.5-4.5 [facility]ensive Internal [facility] Work Phone: Comment on above: PATIENT WAS FASTINGP ERFORMED BY: [facility] Umkbmu5402 [facility] [id number] Potassium molar conc 5.2 mmol/L Normal 3.5-5.2 Comp [facility]erensive Internal Medicine Work Phone: Comment on above: PATIENT WAS FASTINGP ERFORMED BY: [facility] Glqseq7401 [facility] [id number] Urea nitrogen/Creatinine mass ratio 19 mg/mg Normal 10-24 [facility] Work Phone: Comment on above: PATIENT WAS FASTINGP ERFORMED BY: LabCoJFK Medical CenterIihjly2737 [facility] [id number] Blood Glucose , Office (8296 2)Ordered By: Latrice Levy on 12-09-2016 Glucose Glucometer molar conc (BldC) 110 1 Normal [facility] Work Phone: [id number] ([phone])Ordered By: Wind Turbine Machinist on 10-13-2016 AFP.tumor marker mass conc 4.7 ng/mL Normal 0.0-8.3 [facility] Work Phone: Comment on above: Nora ECLIA methodol ogy PATIENT NOT FASTINGP ERFORMED BY: [facility] Alqqpy5502 [facility] [id number] Blood Glucose , Office (8296 2)Ordered By: Latrice Levy on 10-13-2016 Glucose Glucometer molar conc (BldC) 144 1 Normal [facility] Work Phone: CALCIFEDIOL (06204)Ordered B y: Wind Turbine Machinist on 09-30-2016 25-Hydroxyvitamin D2+25-Hydroxyvitamin D3 mass conc 20.2 ng/mL Abnormal 30.0-100.0 [facility] Work Phone: Comment on above: Vitamin D deficiency has been defined by the [place] ofMedicine and an Endocrine Society practice guideline as alevel of serum 25-OH vitamin D less than 20 ng/mL (1,2).The Endocrine Society went on to further define vitamin Dinsufficiency as a level between 21 and 29 ng/mL (2).1. IOM ([place] of Medicine). 2010. Dietary reference intakes for calcium and D. [place]: The National Academies Press.2. Ace MF, Lurdes WELLS, Cynthia COFFMAN, et al. Evaluation, treatment, and prevention of vitamin D deficiency: an Endocrine Society clinical practice guideline. JCEM. 2010; 96(7):1911-30. PATIENT NOT FASTINGP ERFORMED BY: [employer] [facility] Olxeez2271 [address] RoadDublin [place] [id number] CBC with auto diff (80262)Or dered By: Wind Turbine Machinist on 09-30-2016 Basophils #/vol (Bld) 0.0 {x10E3/uL} Normal 0.0-0.2 [facility] Work Phone: Comment on above: PATIENT NOT FASTINGP ERFORMED BY: CB [facility] Zdggex7203 [address]Dublin [place] [id number] Basophils (Bld) [#/Vol] 0.0 10*3/uL Normal 0.0-0.2 [facility] Work Phone: Comment on above: PATIENT NOT FASTINGP ERFORMED BY: CB [facility] Bbbjlb8987 [address] RoadDublin [place] [id number] Basophils Auto #/vol (Bld) 0.0 {x10E3/uL} Normal 0.0-0.2 [facility] Work Phone: Basophils/100 WBC (Bld) 1 % Normal C omprehensive Internal Medicine Work Phone: Comment on above: PATIENT NOT FASTINGP ERFORMED BY: CB [facility] Emfujl3478 [address] RoadDublin [place] [id number] Basophils/100 WBC Auto (Bld) 1 % Normal [facility] Work Phone: Eosinophils #/vol (Bld) 0.3 {x10E3/uL} Normal 0.0-0.4 [facility] Work Phone: Comment on above: PATIENT NOT FASTINGP ERFORMED BY: ANGELI LabComauri Sejken6082 [address] [facility]in [place] [id number] Eosinophils (Bld) [#/Vol] 0.3 10*3/uL Normal 0.0-0.4 [facility] Work Phone: Comment on above: PATIENT NOT FASTINGP ERFORMED BY: ANGELI [facility] Uaealg1779 [address] RoadAshe Memorial Hospitalin [place] [id number] Eosinophils Auto #/vol (Bld) 0.3 {x10E3/uL} Normal 0.0-0.4 [facility] Work Phone: Eosinophils/100 WBC (Bld) 3 % Normal [facility] Work Phone: Comment on above: PATIENT NOT FASTINGP ERFORMED BY: ANGELI Isabell Weldonlin6370 Mcghee RoadAtrium Health Kannapolis [id number] Eosinophils/100 WBC Auto (Bld) 3 % Normal [facility] Work Phone: Erythrocyte distribution width Auto Ratio (RBC) 13.8 % Normal 12.3-15.4 [facility] Work Phone: Erythrocyte distribution width Ratio (RBC) 13.8 % Normal 12.3-15.4 [facility] Work Phone: Comment on above: PATIENT NOT FASTINGP ERFORMED BY: ANGELI Simmons Llhgom0199 [address] [facility] [id number] Hematocrit Auto Volume Fraction (Bld) 39.9 % Normal 34.0-46.6 [facility] Work Phone: Hematocrit Volume Fraction (Bld) 39.9 % Normal 34.0-46.6 [facility] Work Phone: Comment on above: PATIENT NOT FASTINGP ERFORMED BY: ANGELI [facility] Nuqjhy3519 [address] [facility] [id number] Hemoglobin mass conc (Bld) 13.7 g/dL Normal 11.1-15.9 [facility] Work Phone: Comment on above: PATIENT NOT FASTINGP ERFORMED BY: ANGELI [facility] Avpwky3767 [address] [facility] [id number] Immature granulocytes #/vol (Bld) 0.0 {x10E3/uL} Normal 0.0-0.1 [facility] Work Phone: Comment on above: PATIENT NOT FASTINGP ERFORMED BY: ANGELI NereydaComauri WeldonLzaasl6080 Mc[address] RoadAshe Memorial Hospitalin [place] [id number] Immature granulocytes (Bld) [#/Vol] 0.0 10*3/uL Normal 0.0-0.1 [facility] Work Phone: Comment on above: PATIENT NOT FASTINGP ERFORMED BY: [facility] Vugutr4245 [address] [facility] [place] [id number] Immature granulocytes/100 WBC (Bld) 0 % Normal [facility] Work Phone: Comment on above: PATIENT NOT FASTINGP ERFORMED BY: NereydaBarton [facility] Memorial Hospital Shlybx7192 [address] [facility] [id number] Lymphocytes #/vol (Bld) 3.0 {x10E3/uL} Normal 0.7-3.1 [facility] Work Phone: Comment on above: PATIENT NOT FASTINGP ERFORMED BY: LabB[facility] Jdfwqp8128 [address] [facility] [place] [id number] Lymphocytes (Bld) [#/Vol] 3.0 10*3/uL Normal 0.7-3.1 [facility] Work Phone: Comment on above: PATIENT NOT FASTINGP ERFORMED BY: LabJeanne Ville 3412370 [address] [facility] [id number] Lymphocytes Auto #/vol (Bld) 3.0 {x10E3/uL} Normal 0.7-3.1 [facility] Work Phone: Lymphocytes/100 WBC (Bld) 38 % Normal [facility] Work Phone: Comment on above: PATIENT NOT FASTINGP ERFORMED BY: LabCo Uwbnex4757 Mcg[address] RoadAshe Memorial Hospitalin [place] [id number] Lymphocytes/100 WBC Auto (Bld) 38 % Normal [facility] Work Phone: MCH Auto Entitic mass (RBC) 29.8 pg Normal 26.6-33.0 [facility] Work Phone: MCH Entitic mass (RBC) 29.8 pg Normal 26.6-33.0 Co [facility] Internal Medicine Work Phone: Comment on above: PATIENT NOT FASTINGP ERFORMED BY: [facility] Nswrtf8644 [facility] [id number] MCHC Auto mass conc (RBC) 34.3 g/dL Normal 31.5-35.7 [facility] Work Phone: MCHC mass conc (RBC) 34.3 g/dL Normal 31.5-35.7 [facility] Internal Medicine Work Phone: Comment on above: PATIENT NOT FASTINGP ERFORMED BY: LabCoJFK Medical CenterXtjmkj4020 [facility] [id number] MCV Auto Entitic volume (RBC) 87 fL Normal 79-97 [facility] Work Phone: MCV Entitic volume (RBC) 87 fL Normal 79-97 [facility] Work Phone: Comment on above: PATIENT NOT FASTINGP ERFORMED BY: [facility] Qulofy3805 [facility] [id number] Monocytes #/vol (Bld) 0.6 {x10E3/uL} Normal 0.1-0.9 [facility] Work Phone: Comment on above: PATIENT NOT FASTINGP ERFORMED BY: [facility] Jahiqn8681 [facility] [id number] Monocytes (Bld) [#/Vol] 0.6 10*3/uL Normal 0.1-0.9 [facility] Work Phone: Comment on above: PATIENT NOT FASTINGP ERFORMED BY: [facility] Szghaa5422 [facility] [id number] Monocytes Auto #/vol (Bld) 0.6 {x10E3/uL} Normal 0.1-0.9 [facility] Work Phone: Monocytes/100 WBC (Bld) 7 % Normal C omprehensive Internal Medicine Work Phone: Comment on above: PATIENT NOT FASTINGP ERFORMED BY: CB [facility] Ylutty8238 [address]Dublin [place] [id number] Monocytes/100 WBC Auto (Bld) 7 % Normal [facility] Work Phone: Neutrophils #/vol (Bld) 3.9 {x10E3/uL} Normal 1.4-7.0 [facility] Work Phone: Comment on above: PATIENT NOT FASTINGP ERFORMED BY: CB [facility] Slnsxt1115 [address]Dublin [place] [id number] Neutrophils (Bld) [#/Vol] 3.9 10*3/uL Normal 1.4-7.0 [facility] Work Phone: Comment on above: PATIENT NOT FASTINGP ERFORMED BY: CB [facility] Zjvjpl7231 [address] RoadDublin [place] [id number] Neutrophils Auto #/vol (Bld) 3.9 {x10E3/uL} Normal 1.4-7.0 [facility] Work Phone: Neutrophils/100 WBC (Bld) 51 % Normal [facility] Work Phone: Comment on above: PATIENT NOT FASTINGP ERFORMED BY: CB [facility] Rrpuvb1588 [address] RoadDublin [place] [id number] Neutrophils/100 WBC Auto (Bld) 51 % Normal [facility] Work Phone: Platelets #/vol (Bld) 145 {x10E3/uL} Abnormal 150-379 [facility] Work Phone: Comment on above: PATIENT NOT FASTINGP ERFORMED BY: CB [facility] Mlkert6257 [address] RoadDublin [place] [id number] Platelets (Bld) [#/Vol] 145 10*3/uL Abnormal 150-379 [facility] Work Phone: Comment on above: PATIENT NOT FASTINGP ERFORMED BY: CB [facility] Dikgze1668 [address] RoadDublin [place] [id number] Platelets Auto #/vol (Bld) 145 {x10E3/uL} Abnormal 150-379 [facility] Work Phone: RBC #/vol (Bld) 4.59 {x10E6/uL} Normal 3.77-5.28 Comp [facility] Internal Medicine Work Phone: Comment on above: PATIENT NOT FASTINGP ERFORMED BY: CB [facility] Vfwomw[address] [facility] [id number] RBC (Bld) [#/Vol] 4.59 10*6/uL Normal 3.77-5.28 Compr [facility] Internal Medicine Work Phone: Comment on above: PATIENT NOT FASTINGP ERFORMED BY: CB [facility] Pfmdfk[address] [facility] [id number] RBC Auto #/vol (Bld) 4.59 {x10E6/uL} Normal 3.77-5.28 [facility] Work Phone: WBC #/vol (Bld) 7.8 {x10E3/uL} Normal 3.4-10.8 [facility] Internal Medicine Work Phone: Comment on above: PATIENT NOT FASTINGP ERFORMED BY: CB [facility] Ktviut3863 [facility] [id number] WBC (Bld) [#/Vol] 7.8 10*3/uL Normal 3.4-10.8 [facility] Work Phone: Comment on above: PATIENT NOT FASTINGP ERFORMED BY: CB [facility] Yztgsc5824 [facility] [id number] WBC Auto #/vol (Bld) 7.8 {x10E3/uL} Normal 3.4-10.8 [facility] Internal Medicine Work Phone: HgA1C , Office ([id number])Ordere d By: Latrice Levy on 09-30-2016 Hemoglobin A1c/Hemoglobin.total mass fraction (Bld) 9.7 % Abnormal 4.6 - 7.1 Comprehensiv e Internal Medicine Work Phone: METABOLIC PANEL, COMPREHENSI VE ([id number])Ordered By: Wind Turbine Machinist on 09-30-2016 Albumin mass conc 4.4 g/dL Normal 3.5-4.8 [facility] Internal Medicine Work Phone: Comment on above: PATIENT NOT FASTINGP ERFORMED BY: ANGELI [facility] Wbyihn4411 [address]Dublin [place] [id number] Albumin/Globulin mass ratio 1.3 {ratio} Normal 1.1-2.5 [facility] Work Phone: Comment on above: PATIENT NOT FASTINGP ERFORMED BY: CB [facility] Eplgwt0028 [address]Dublin [place] [id number] ALP [Catalytic activity/Vol] 90 U/L Normal 39-117 [facility] Work Phone: Comment on above: PATIENT NOT FASTINGP ERFORMED BY: CB [facility] Fslejm3383 [address] RoadDublin [place] [id number] ALP enzyme act/vol 90 [iU]/L Normal 39-117 [facility] Internal Medicine Work Phone: Comment on above: PATIENT NOT FASTINGP ERFORMED BY: CB [facility] Knskjn4932 [address] RoadDublin [place] [id number] ALT [Catalytic activity/Vol] 83 U/L Abnormal 0-32 [facility] Work Phone: Comment on above: PATIENT NOT FASTINGP ERFORMED BY: CB [facility] Yvutlk7019 [address]Dublin [place] [id number] ALT enzyme act/vol 83 [iU]/L Abnormal 0-32 [facility] Internal Medicine Work Phone: Comment on above: PATIENT NOT FASTINGP ERFORMED BY: CB [facility] Vunpfn2536 [address] RoadDublin [place] [id number] AST [Catalytic activity/Vol] 81 U/L Abnormal 0-40 [facility] Work Phone: Comment on above: PATIENT NOT FASTINGP ERFORMED BY: CB [facility] Mvusme1488 [address]Dublin [place] [id number] AST enzyme act/vol 81 [iU]/L Abnormal 0-40 [facility] Internal Medicine Work Phone: Comment on above: PATIENT NOT FASTINGP ERFORMED BY: CB [facility] Kpicuh0738 [address]Dublin [place] [id number] Bilirubin mass conc 0.3 mg/dL Normal 0.0-1.2 Compr ehensive Internal Medicine Work Phone: Comment on above: PATIENT NOT FASTINGP ERFORMED BY: CB [facility] Ikbagq0720 [address]Dublin [place] [id number] Calcium mass conc 9.9 mg/dL Normal 8.7-10.3 Compreh ensive Internal Medicine Work Phone: Comment on above: PATIENT NOT FASTINGP ERFORMED BY: CB [facility] Ezqfaw4602 [address]Dublin [place] [id number] Chloride molar conc 98 mmol/L Normal 97-106 Compr ensive Internal Medicine Work Phone: Comment on above: PATIENT NOT FASTINGP ERFORMED BY: CB [facility] Fbufid4029 [address]Dublin [place] [id number] CO2 molar conc 22 mmol/L Normal 18-29 Comprehens michael Internal Medicine Work Phone: Comment on above: PATIENT NOT FASTINGP ERFORMED BY: CB [facility] Wimccd6333 [address]Dublin [place] [id number] Creatinine mass conc 0.68 mg/dL Normal 0.57-1.00 Comp [facility]erens[facility] Internal [facility] Work Phone: Comment on above: PATIENT NOT FASTINGP ERFORMED BY: CB [facility] Kdgfyv5735 [address]Dublin [place] [id number] GFR/1.73 sq M predicted among blacks CKD-EPI vol rate/area (S/P/Bld) 102 mL/min/1.73 Normal Comprehe nsive Internal Medicine Work Phone: Comment on above: PATIENT NOT FASTINGP ERFORMED BY: CB [facility] Jbfxem2477 [address]Dublin [place] [id number] GFR/1.73 sq M predicted among non-blacks CKD-EPI vol rate/area (S/P/Bld) 88 mL/min/1.73 Normal [facility] Work Phone: Comment on above: PATIENT NOT FASTINGP ERFORMED BY: CB [facility] Mrefpw0863 [address]Dublin [place] [id number] Globulin Calculated mass conc (S) 3.4 g/dL Normal 1.5-4.5 [facility] Work Phone: Globulin mass conc (S) 3.4 g/dL Normal 1.5-4.5 Co mprehensive Internal Medicine Work Phone: Comment on above: PATIENT NOT FASTINGP ERFORMED BY: CB [facility] Cimxne2650 [address]Dublin [place] [id number] Glucose mass conc 177 mg/dL Abnormal 65-99 Compreh ensive Internal Medicine Work Phone: Comment on above: PATIENT NOT FASTINGP ERFORMED BY: CB [facility] Nhzfya8671 [address]Dublin [place] [id number] Potassium molar conc 4.4 mmol/L Normal 3.5-5.2 Comp rehensive Internal Medicine Work Phone: Comment on above: PATIENT NOT FASTINGP ERFORMED BY: CB [facility] Mdwbkg8177 [address]Dublin [place] [id number] Protein mass conc 7.8 g/dL Normal 6.0-8.5 Compreh ensive Internal Medicine Work Phone: Comment on above: PATIENT NOT FASTINGP ERFORMED BY: CB [facility] Sbhycl6542 [address] RoadDublin [place] [id number] Sodium molar conc 139 mmol/L Normal 136-144 Compreh ensive Internal Medicine Work Phone: Comment on above: PATIENT NOT FASTINGP ERFORMED BY: CB [facility] Mdalam2565 [address]Dublin [place] [id number] Urea nitrogen mass conc 15 mg/dL Normal 8-27 C omprehensive Internal Medicine Work Phone: Comment on above: PATIENT NOT FASTINGP ERFORMED BY: CB [facility] Nxgeht5482 [address]Dublin [place] [id number] Urea nitrogen/Creatinine mass ratio 22 mg/mg Normal 11-26 [facility] Work Phone: Comment on above: PATIENT NOT FASTINGP ERFORMED BY: ANGELI [facility] Ywwcsg5944 [address] RoadDublin [place] [id number] MICROALBUMINOrdered By: Syst em Ticket Maker on 09-30-2016 Albumin DL <= 20 mg/L mass conc (U) 37.8 ug/mL Normal [facility] Work Phone: Comment on above: PATIENT NOT FASTINGP ERFORMED BY: ANGELI [facility] Awrkwt9647 [address]Dublin [place] [id number] Albumin/Creatinine mass ratio (U) 44.0 {mg/g_creat} Abnormal 0.0-30.0 [facility] Work Phone: Comment on above: PATIENT NOT FASTINGP ERFORMED BY: ANGELI [facility] Qmifkw8592 [address]Dublin [place] [id number] Creatinine mass conc (U) 85.9 mg/dL Normal [facility] Work Phone: Comment on above: PATIENT NOT FASTINGP ERFORMED BY: ANGELI [facility] Eulxem6144 [address]Dublin [place] [id number] TSH (THYROID STIMULATING HOR BARRON) ([id number])Ordered By: Wind Turbine Machinist on 09-30-2016 Thyrotropin Qn 4.020 {uIU/mL} Normal 0.450-4.50 0 [facility] Work Phone: Comment on above: PATIENT NOT FASTINGP ERFORMED BY: ANGELI [facility] Fiegrv7326 [address]Dublin [place] [id number] URINALYSIS ([id number])Ordered By : Wind Turbine Machinist on 09-30-2016 Appearance Nom (U) Clear Normal Compre hensive Internal Medicine Work Phone: Comment on above: PATIENT NOT FASTINGP ERFORMED BY: ANGELI [facility] Ldhtmd9860 [address]Dublin [place] [id number] Bilirubin Ql (U) Negative Normal Comprehe nsive Internal Medicine Work Phone: Comment on above: PATIENT NOT FASTINGP ERFORMED BY: ANGELI [facility] Rtsgso4793 [address]Dublin [place] [id number] Bilirubin Ql (U) Negative Normal Comprehe nsive Internal Medicine Work Phone: Comment on above: PATIENT NOT FASTINGP ERFORMED BY: ANGELI [facility] Biicel1278 [address]Dublin [place] [id number] Color Nom (U) Yellow Normal Comprehensi ve Internal Medicine Work Phone: Comment on above: PATIENT NOT FASTINGP ERFORMED BY: ANGELI [facility] Boopaz5161 [address]Dublin [place] [id number] Glucose Ql (U) Trace Abnormal Comprehens michael Internal Medicine Work Phone: Comment on above: PATIENT NOT FASTINGP ERFORMED BY: ANGELI [facility] Gswfel1333 [address]Dublin [place] [id number] Hemoglobin Ql (U) Negative Normal Compreh ensive Internal Medicine Work Phone: Comment on above: PATIENT NOT FASTINGP ERFORMED BY: ANGELI [facility] Dibxpd5183 [address]Dublin [place] [id number] Hemoglobin Ql (U) Negative Normal Compreh ensive Internal Medicine Work Phone: Comment on above: PATIENT NOT FASTINGP ERFORMED BY: ANGELI [facility] Ewomes6240 [address]Dublin [place] [id number] Hemoglobin Test strip Ql (U) Negative Normal [facility] Work Phone: Ketones Ql (U) Negative Normal Comprehens michael Internal Medicine Work Phone: Comment on above: PATIENT NOT FASTINGP ERFORMED BY: ANGELI [facility] Xbuwlz0313 [address] RoadDublin [place] [id number] Ketones Ql (U) Negative Normal Comprehens michael Internal Medicine Work Phone: Comment on above: PATIENT NOT FASTINGP ERFORMED BY: CB [facility] Xxexmd4848 [address]Dublin [place] [id number] Leukocyte esterase Test strip Ql (U) Negative Normal [facility] Work Phone: Comment on above: PATIENT NOT FASTINGP ERFORMED BY: ANGELI [facility] Evjjmq2891 [address]Dublin [place] [id number] Leukocyte esterase Test strip Ql (U) Negative Normal [facility] Work Phone: Comment on above: PATIENT NOT FASTINGP ERFORMED BY: ANGELI LabDajuan WeldonSfciis2614 [address] RoadDublin [place] [id number] Microscopic observation LM Nom (Urine sed) MICNIP Normal [facility] Work Phone: Comment on above: Microscopic not negro cated and not performed. PATIENT NOT FASTINGP ERFORMED BY: ANGELI LabDajuan WeldonVihbfk3095 [address] RoadDublin [place] [id number] Nitrite Ql (U) Negative Normal Comprehens michael Internal Medicine Work Phone: Comment on above: PATIENT NOT FASTINGP ERFORMED BY: ANGELI LabComauri WeldonWhkcbx7420 [address]Dublin [place] [id number] Nitrite Ql (U) Negative Normal Comprehens michael Internal Medicine Work Phone: Comment on above: PATIENT NOT FASTINGP ERFORMED BY: ANGELI Weldonlin6370 [address]Dublin [place] [id number] Nitrite Test strip Ql (U) Negative Normal [facility] Work Phone: pH (U) 6.0 [pH] Normal 5.0-7.5 [facility] Work Phone: Comment on above: PATIENT NOT FASTINGP ERFORMED BY: ANGELI Weldonlin6370 [address]Dublin [place] [id number] pH Test strip (U) 6.0 [pH] Normal 5.0-7.5 Compreh ensive Internal Medicine Work Phone: Protein Ql (U) Trace Normal Comprehens michael Internal Medicine Work Phone: Comment on above: PATIENT NOT FASTINGP ERFORMED BY: ANGELI [facility] Ujrnih7505 [address]Dublin [place] [id number] Protein Test strip Ql (U) Trace Normal [facility] Work Phone: Specific gravity Relative Density (U) 1.020 1 Normal 1.005-1.03 0 [facility] Work Phone: Comment on above: PATIENT NOT FASTINGP ERFORMED BY: ANGELI LabComauri WeldonThxhhy0841 [address] RoadDublin [place] [id number] Urobilinogen (U) [Mass/Vol] 1.0 mg/dL Normal 0.2-1.0 [facility] Work Phone: Comment on above: PATIENT NOT FASTINGP ERFORMED BY: ANGELI DawnComauri CoelloMjpxys5647 [address] [place]bljim[place] [id number] Urobilinogen Test strip mass conc (U) 1.0 mg/dL Normal 0.2-1.0 [facility] Work Phone: Comment on above: PATIENT NOT FASTINGP ERFORMED BY: [facility] Jrwnha[address] [facility] [id number] PELVIC (NON )Ordered By: Wind Turbine Machinist on 08-24-2013 PELVIC (NON ) See Note [...] Ford M.D.August 24, 2013 at 1:44:02 PM [id number] Signed GP/GP If you are the referring physician and would like to consult with theradiologist who provided this interpretation, please contact Radha Graves at [phone]. If this radiologist is unavailable, youwill be directed to another radiologist to assist. If you are a patient with a question regarding this report, pleasecontactyour referring physician directly. Professional Interpretation Provided By: [employer], Phone , These documents contain legally protected [...] size of the right kidney. The right .3 cm. Normal renal cortex. The right cortex measures 1.1 cm. Thereisno demonstrated renal mass or cyst. There is no right hydronephrosis. Left Kidney: Normal size of the left kidney. The left kidney lmdkkxua58.4cm. Normal renal cortex. The left cortex measures [...] Ford M.D.August 24, 2013 at 1:03:34 PM [id number] Signed GP/GP If you are the referring physician and would like to consult with theradiologist who provided this interpretation, please contact Radha Graves at [phone]. If this radiologist is unavailable, youwill be directed to another radiologist to assist. If you are a patient with a question regarding this report, pleasecontactyour referring physician directly. Professional Interpretation Provided By: [employer], Phone , These documents contain legally protected [...] 08/24/13 1308 by ITS IMPORTSign by Liliana CLEMONS,Fernando on 08/24/13 1309 Sign by: Liliana CLEMONS,Fernando Nuclear Stress TestOrdered B y: Wind Turbine Machinist on 08-17-2013 Nuclear Stress Test See Note [...] The patient was injected with 40.5 mCi [id number] Cardiolite and subsequently stress SPECT Cardiolite nuclear [...] Ailyn ROMO by Mavis CLEMONS,Papa on 08/17/13 1735 Sign by: Papa Gamble MD CALCIFEDIOL ([id number])Ordered B y: Wind Turbine Machinist on 08-15-2013 25-Hydroxyvitamin D2+25-Hydroxyvitamin D3 mass conc 12.0 ng/mL Abnormal 30.0-100.0 [facility] Work Phone: Comment on above: Vitamin D deficiency has been defined by the [place] ofMedicine and an Endocrine Society practice guideline as alevel of serum 25-OH vitamin D less than 20 ng/mL (1,2).The Endocrine Society went on to further define vitamin Dinsufficiency as a level between 21 and 29 ng/mL (2).1. IOM ([place] of Medicine). 2010. Dietary reference intakes for calcium and D. [place]: The National Academies Press.2. Ace MF, Lurdes WELLS, Cynthia COFFMAN, et al. Evaluation, treatment, and prevention of vitamin D deficiency: an Endocrine Society clinical practice guideline. JCEM. 2010; 96(7):1911-30. PATIENT NOT FASTINGP ERFORMED BY: [facility] Pinbvy7775 [facility] [id number] HEPATIC FUNCTION PANEL ([id number] [id number])Ordered By: Wind Turbine Machinist on 08-15-2013 Albumin mass conc 4.5 g/dL Normal 3.6-4.8 Compreh ensive Internal Medicine Work Phone: Comment on above: PATIENT NOT FASTINGP ERFORMED BY: ANGELI Isabell Coello[address] [facility] [id number] Information: ADD [id number] AND DRAW FEE 99 6660 ALP [Catalytic activity/Vol] 79 U/L Normal 47-112 [facility] Work Phone: Comment on above: PATIENT NOT FASTINGP ERFORMED BY: ANGELI LabDajuan Bmryfs[address] [facility] [id number] Information: ADD [id number] AND DRAW FEE 99 6660 ALP enzyme act/vol 79 [iU]/L Normal 47-112 [facility] Internal Medicine Work Phone: Comment on above: PATIENT NOT FASTINGP ERFORMED BY: ANGELI Isabell Weldonlin6370 [facility] [id number] Information: ADD [id number] AND DRAW FEE 99 6660 ALT [Catalytic activity/Vol] 57 U/L Abnormal 0-32 [facility] Work Phone: Comment on above: PATIENT NOT FASTINGP ERFORMED BY: ANGELI Iris Bclkmc1535 [facility] [id number] Information: ADD [id number] AND DRAW FEE 99 6660 ALT enzyme act/vol 57 [iU]/L Abnormal 0-32 [facility] Internal Medicine Work Phone: Comment on above: PATIENT NOT FASTINGP ERFORMED BY: ANGELI NereydaOsman Oxxaca8102 [facility] [id number] Information: ADD [id number] AND DRAW FEE 99 6660 AST [Catalytic activity/Vol] 39 U/L Normal 0-40 [facility] Work Phone: Comment on above: PATIENT NOT FASTINGP ERFORMED BY: ANGELI Iris Sybhcv6836 [facility] [id number] Information: ADD [id number] AND DRAW FEE 99 6660 AST enzyme act/vol 39 [iU]/L Normal 0-40 [facility] Internal Medicine Work Phone: Comment on above: PATIENT NOT FASTINGP ERFORMED BY: ANGELI [facility] Juqfng[address] [facility] [place] [id number] Information: ADD [id number] AND DRAW FEE 99 6660 Bilirubin mass conc 0.2 mg/dL Normal 0.0-1.2 Compr ehensive Internal Medicine Work Phone: Comment on above: PATIENT NOT FASTINGP ERFORMED BY: ANGELI [facility] Ttafng[address] [facility] [place] [id number] Information: ADD [id number] AND DRAW FEE 99 6660 Bilirubin.direct mass conc 0.08 mg/dL Normal 0.00-0.40 [facility] Work Phone: Comment on above: PATIENT NOT FASTINGP ERFORMED BY: [facility] Lhgrcz[address] [facility] [id number] Information: ADD [id number] AND DRAW FEE 99 6660 Protein mass conc 7.3 g/dL Normal 6.0-8.5 Compreh ensive Internal Medicine Work Phone: Comment on above: PATIENT NOT FASTINGP ERFORMED BY: [facility]CoJFK [facility] CenterOqvscx2253 [address] [facility] [id number] Information: ADD [id number] AND DRAW FEE 99 6660 HEPATITIS PANEL (02703)Order ed By: Wind Turbine Machinist on 08-15-2013 HAV IgM IA Ql Negative Normal Comprehensi ve Internal Medicine Work Phone: Comment on above: PATIENT NOT FASTINGP ERFORMED BY: [facility] Icnmzb[address] [facility] [id number] HAV IgM IA Ql Negative Normal Comprehensi ve Internal Medicine Work Phone: Comment on above: PATIENT NOT FASTINGP ERFORMED BY: [facility] Orqyvj4376 Mc[address] RoadAshe Memorial Hospitalin [place] [id number] HBV core IgM IA Ql Negative Normal Compre hensive Internal Medicine Work Phone: Comment on above: PATIENT NOT FASTINGP ERFORMED BY: [facility] Feosla9749 Mc[address] RoadAt[facility] [id number] HBV core IgM IA Ql Negative Normal Compre hensive Internal Medicine Work Phone: Comment on above: PATIENT NOT FASTINGP ERFORMED BY: [facility]6370 [facility] [id number] HBV surface Ag IA Ql Negative Normal Comp rehensive Internal Medicine Work Phone: Comment on above: PATIENT NOT FASTINGP ERFORMED BY: [facility]6370 [facility] [id number] HBV surface Ag IA Ql Negative Normal Comp rehensive Internal Medicine Work Phone: Comment on above: PATIENT NOT FASTINGP ERFORMED BY: [facility]6370 [facility] [id number] HCV Ab Signal/Cutoff IA [Rel units/Vol] {ratio} Normal 0.0-0.9 [facility] Work Phone: Comment on above: Negative: < 0.8 Inde terminate 0.8 - 0.9 Positive: > 0.9 . In order to reduce the incidence of a false positive result, the CDC recommends that all s/co ratios between 1.0 and 10.9 be confirmed by a more specific supplemental or PCR testing. [facility] offers HCV Ab w/Reflex to Verification test #[id number]. PATIENT NOT FASTINGP ERFORMED BY: [facility]6370 [facility] [id number] HCV Ab Signal/Cutoff IA RelACnc {ratio} Normal 0.0-0.9 [facility] Internal Medicine Work Phone: Comment on above: Negative: < 0.8 Inde terminate 0.8 - 0.9 Positive: > 0.9 . In order to reduce the incidence of a false positive result, the CDC recommends that all s/co ratios between 1.0 and 10.9 be confirmed by a more specific supplemental or PCR testing. [facility] offers HCV Ab w/Reflex to Verification test #[id number]. PATIENT NOT FASTINGP ERFORMED BY: [facility]6370 [facility] [id number] T3, FREE (TRIDOTHYRONINE) (5 3563)Ordered By: Wind Turbine Machinist on 08-15-2013 T3 free mass conc 2.8 pg/mL Normal 2.0-4.4 Compreh ensive Internal Medicine Work Phone: Comment on above: PATIENT NOT FASTINGP ERFORMED BY: [facility]6370 [facility] [id number] T4, FREE (THYROXINE) ([id number]) Ordered By: Wind Turbine Machinist on 08-15-2013 T4 free mass conc 0.80 ng/dL Abnormal 0.82-1.77 Compreh ensive Internal Medicine Work Phone: Comment on above: PATIENT NOT FASTINGP ERFORMED BY: [facility]6370 [facility] [id number] TSH (THYROID STIMULATING HOR BARRON) ([id number])Ordered By: Wind Turbine Machinist on 08-15-2013 Thyrotropin Qn 6.740 {uIU/mL} Abnormal 0.450-4.50 0 [facility] Work Phone: Comment on above: PATIENT NOT FASTINGP ERFORMED BY: [facility]6370 [facility] [id number] CBC, Platelets & Auto Diff ( 33757)Ordered By: Wind Turbine Machinist on 08-07-2013 Basophils #/vol (Bld) 0.0 {x10E3/uL} Normal 0.0-0.2 [facility] Work Phone: Comment on above: PATIENT WAS FASTINGP ERFORMED BY: [facility]6370 [facility] [id number] Information: [id number] Basophils (Bld) [#/Vol] 0.0 10*3/uL Normal 0.0-0.2 [facility] Work Phone: Comment on above: PATIENT WAS FASTINGP ERFORMED BY: [facility]6370 [facility] [id number] Information: [id number] Basophils Auto #/vol (Bld) 0.0 {x10E3/uL} Normal 0.0-0.2 [facility] Work Phone: Basophils/100 WBC (Bld) 1 % Normal 0-3 C omprehensive Internal Medicine Work Phone: Comment on above: PATIENT WAS FASTINGP ERFORMED BY: [facility]6370 [facility] [id number] Information: [id number] Basophils/100 WBC Auto (Bld) 1 % Normal 0-3 [facility] Work Phone: Eosinophils #/vol (Bld) 0.3 {x10E3/uL} Normal 0.0-0.4 [facility] Work Phone: Comment on above: Please note refere nce interval change PATIENT WAS FASTINGP ERFORMED BY: [place] [id number] [facility] [id number] Information: [id number] Eosinophils (Bld) [#/Vol] 0.3 10*3/uL Normal 0.0-0.4 [facility] Work Phone: Comment on above: Please note refere nce interval change PATIENT WAS FASTINGP ERFORMED BY: [place] [id number] [facility] [id number] Information: [id number] Eosinophils Auto #/vol (Bld) 0.3 {x10E3/uL} Normal 0.0-0.4 [facility] Work Phone: Comment on above: Please note refere nce interval change Eosinophils/100 WBC (Bld) 4 % Normal 0-5 [facility] Work Phone: Comment on above: Please note refere nce interval change PATIENT WAS FASTINGP ERFORMED BY: [place] [id number] [facility] [id number] Information: [id number] Eosinophils/100 WBC Auto (Bld) 4 % Normal 0-5 [facility] Work Phone: Comment on above: Please note refere nce interval change Erythrocyte distribution width Auto Ratio (RBC) 14.1 % Normal 12.3-15.4 [facility] Work Phone: Erythrocyte distribution width Ratio (RBC) 14.1 % Normal 12.3-15.4 [facility] Work Phone: Comment on above: PATIENT WAS FASTINGP ERFORMED BY: ANGELI [address] [id number] Information: [id number] Hematocrit Auto Volume Fraction (Bld) 41.7 % Normal 34.0-46.6 [facility] Work Phone: Hematocrit Volume Fraction (Bld) 41.7 % Normal 34.0-46.6 [facility] Work Phone: Comment on above: PATIENT WAS FASTINGP ERFORMED BY: [address] [id number] Information: [id number] Hemoglobin mass conc (Bld) 13.6 g/dL Normal 11.1-15.9 [facility] Work Phone: Comment on above: PATIENT WAS FASTINGP ERFORMED BY: [address] [id number] Information: [id number] Immature granulocytes #/vol (Bld) 0.0 {x10E3/uL} Normal 0.0-0.1 [facility] Work Phone: Comment on above: PATIENT WAS FASTINGP ERFORMED BY: [address] [id number] Information: [id number] Immature granulocytes (Bld) [#/Vol] 0.0 10*3/uL Normal 0.0-0.1 [facility] Work Phone: Comment on above: PATIENT WAS FASTINGP ERFORMED BY: [address] [id number] Information: [id number] Immature granulocytes/100 WBC (Bld) 0 % Normal 0-2 [facility] Work Phone: Comment on above: PATIENT WAS FASTINGP ERFORMED BY: [address]Dublin [place] [id number] Information: [id number] Lymphocytes #/vol (Bld) 3.2 {x10E3/uL} Abnormal 0.7-3.1 [facility] Work Phone: Comment on above: Please note refere nce interval change PATIENT WAS FASTINGP ERFORMED BY: [place] [id number] [facility] [id number] Information: [id number] Lymphocytes (Bld) [#/Vol] 3.2 10*3/uL Abnormal 0.7-3.1 [facility] Work Phone: Comment on above: Please note refere nce interval change PATIENT WAS FASTINGP ERFORMED BY: ANGELI [place] [id number] [facility] [id number] Information: [id number] Lymphocytes Auto #/vol (Bld) 3.2 {x10E3/uL} Abnormal 0.7-3.1 [facility] Work Phone: Comment on above: Please note refere nce interval change Lymphocytes/100 WBC (Bld) 44 % Normal 14-46 [facility] Work Phone: Comment on above: Please note refere nce interval change PATIENT WAS FASTINGP ERFORMED BY: [place] [id number] [facility] [id number] Information: [id number] Lymphocytes/100 WBC Auto (Bld) 44 % Normal 14-46 [facility] Work Phone: Comment on above: Please note refere nce interval change MCH Auto Entitic mass (RBC) 29.1 pg Normal 26.6-33.0 [facility] Work Phone: MCH Entitic mass (RBC) 29.1 pg Normal 26.6-33.0 [facility] Internal Medicine Work Phone: Comment on above: PATIENT WAS FASTINGP ERFORMED BY: [place] [id number] [facility] [id number] Information: [id number] MCHC Auto mass conc (RBC) 32.6 g/dL Normal 31.5-35.7 [facility] Work Phone: MCHC mass conc (RBC) 32.6 g/dL Normal 31.5-35.7 [facility] Work Phone: Comment on above: PATIENT WAS FASTINGP ERFORMED BY: [address] [id number] Information: [id number] MCV Auto Entitic volume (RBC) 89 fL Normal 79-97 [facility] Work Phone: MCV Entitic volume (RBC) 89 fL Normal 79-97 [facility] Work Phone: Comment on above: PATIENT WAS FASTINGP ERFORMED BY: [address] [id number] Information: [id number] Monocytes #/vol (Bld) 0.7 {x10E3/uL} Normal 0.1-0.9 [facility] Work Phone: Comment on above: Please note refere nce interval change PATIENT WAS FASTINGP ERFORMED BY: [address] [id number] Information: [id number] Monocytes (Bld) [#/Vol] 0.7 10*3/uL Normal 0.1-0.9 [facility] Work Phone: Comment on above: Please note refere nce interval change PATIENT WAS FASTINGP ERFORMED BY: [place] 3538370 [facility] [id number] Information: [id number] Monocytes Auto #/vol (Bld) 0.7 {x10E3/uL} Normal 0.1-0.9 [facility] Work Phone: Comment on above: Please note refere nce interval change Monocytes/100 WBC (Bld) 10 % Normal 4-12 [facility] Work Phone: Comment on above: Please note refere nce interval change PATIENT WAS FASTINGP ERFORMED BY: [facility] Mlbqwc8481 [facility] [id number] Information: [id number] Monocytes/100 WBC Auto (Bld) 10 % Normal 4-12 [facility] Work Phone: Comment on above: Please note refere nce interval change Neutrophils #/vol (Bld) 2.9 {x10E3/uL} Normal 1.4-7.0 [facility] Work Phone: Comment on above: Please note refere nce interval change PATIENT WAS FASTINGP ERFORMED BY: LabJeanne [place] [id number] [facility] [id number] Information: [id number] Neutrophils (Bld) [#/Vol] 2.9 10*3/uL Normal 1.4-7.0 [facility] Work Phone: Comment on above: Please note refere nce interval change PATIENT WAS FASTINGP ERFORMED BY: LabCoJFK [facility] CenterUigekm4815 [facility] [id number] Information: [id number] Neutrophils Auto #/vol (Bld) 2.9 {x10E3/uL} Normal 1.4-7.0 [facility] Work Phone: Comment on above: Please note refere nce interval change Neutrophils/100 WBC (Bld) 41 % Normal 40-74 [facility] Work Phone: Comment on above: Please note refere nce interval change PATIENT WAS FASTINGP ERFORMED BY: [facility] Vrjfvv1450 [facility] [id number] Information: [id number] Neutrophils/100 WBC Auto (Bld) 41 % Normal 40-74 [facility] Work Phone: Comment on above: Please note refere nce interval change Platelets #/vol (Bld) 187 {x10E3/uL} Normal 155-379 [facility] Internal Medicine Work Phone: Comment on above: Please note refere nce interval change PATIENT WAS FASTINGP ERFORMED BY: [place] [id number] [facility] [id number] Information: [id number] Platelets (Bld) [#/Vol] 187 10*3/uL Normal 155-379 [facility] Internal Medicine Work Phone: Comment on above: Please note refere nce interval change PATIENT WAS FASTINGP ERFORMED BY: [address] [id number] Information: [id number] Platelets Auto #/vol (Bld) 187 {x10E3/uL} Normal 155-379 [facility] Internal Medicine Work Phone: Comment on above: Please note refere nce interval change RBC #/vol (Bld) 4.68 {x10E6/uL} Normal 3.77-5.28 [facility] Internal Medicine Work Phone: Comment on above: PATIENT WAS FASTINGP ERFORMED BY: [place] [id number] [facility] [id number] Information: [id number] RBC (Bld) [#/Vol] 4.68 10*6/uL Normal 3.77-5.28 [facility] Internal Medicine Work Phone: Comment on above: PATIENT WAS FASTINGP ERFORMED BY: [place] [id number] [facility] [id number] Information: [id number] RBC Auto #/vol (Bld) 4.68 {x10E6/uL} Normal 3.77-5.28 [facility] Internal Medicine Work Phone: WBC #/vol (Bld) 7.1 {x10E3/uL} Normal 3.4-10.8 [facility] Internal Medicine Work Phone: Comment on above: Please note refere nce interval change PATIENT WAS FASTINGP ERFORMED BY: ANGELI [facility] Edueks[address] [facility] [id number] Information: [id number] WBC (Bld) [#/Vol] 7.1 10*3/uL Normal 3.4-10.8 [facility] Work Phone: Comment on above: Please note refere nce interval change PATIENT WAS FASTINGP ERFORMED BY: ANGELI [facility] Wkcpmo4488 [address] [facility]thinkAt[facility] [id number] Information: [id number] WBC Auto #/vol (Bld) 7.1 {x10E3/uL} Normal 3.4-10.8 [facility] Work Phone: Comment on above: Please note refere nce interval change DDIMQOrdered By: Natalya merino on 08-07-2013 DDIMQ 0.46 {FEUug/mL} Normal 0.22-0.48 [facility] Internal Medicine Work Phone: Comment on above: NORMAL D-Dimer level indicates no DVT or PE. HgA1C , Office ([id number])Ordere d By: Melonie Lanza on 08-07-2013 Hemoglobin A1c/Hemoglobin.total mass fraction (Bld) 6.4 % Normal 4.6 - 7.1 Comprehensiv e [facility] Work Phone: Lipid Panel ([id number])Ordered B y: Wind Turbine Machinist on 08-07-2013 Cholesterol in HDL mass conc 56 mg/dL Normal [facility] Work Phone: Comment on above: According to ATP-III Guidelines, HDL-C >59 mg/dL is considered anegative risk factor for CHD. PATIENT WAS FASTINGP ERFORMED BY: [facility] Wabfcu6078 [facility] [id number] Cholesterol in LDL mass conc 206 mg/dL Abnormal 0-99 [facility] Work Phone: Comment on above: PATIENT WAS FASTINGP ERFORMED BY: ANGELI LabComauri Nvadqm3621 [address] RoadDublin [place] [id number] Cholesterol in LDL/Cholesterol in HDL mass ratio 3.7 {ratio_units} Abnormal 0.0-3.2 [facility] Work Phone: Comment on above: PATIENT WAS FASTINGP ERFORMED BY: ANGELI LabComauri Cwtqay3434 [address]hee RoadDublin [place] [id number] Cholesterol in VLDL mass conc 24 mg/dL Normal 5-40 [facility] Work Phone: Comment on above: PATIENT WAS FASTINGP ERFORMED BY: ANGELI LabComauri WeldonAaslsb0952 [address] RoadDublin [place] [id number] Cholesterol mass conc 286 mg/dL Abnormal 100-199 Com prehensive [facility] Medicine Work Phone: Comment on above: PATIENT WAS FASTINGP ERFORMED BY: ANGELI LabDajuan WeldonDroseq5702 Mcghee Roadblin [place] [id number] Triglyceride mass conc 118 mg/dL Normal 0-149 [facility]eren[facility] Work Phone: Comment on above: PATIENT WAS FASTINGP ERFORMED BY: ANGELI LabDajuan WeldonOxrhjz[address] [facility] [place] [id number] Metabolic Panel, Comprehensi ve ([id number])Ordered By: Wind Turbine Machinist on 08-07-2013 Albumin mass conc 4.5 g/dL Normal 3.6-4.8 Compreh ensive Internal Medicine Work Phone: Comment on above: PATIENT WAS FASTINGP ERFORMED BY: ANGELI LabComauri Cdkxcr2851 [address] RoadDublin [place] [id number] Albumin/Globulin mass ratio 1.5 {ratio} Normal 1.1-2.5 [facility] Work Phone: Comment on above: PATIENT WAS FASTINGP ERFORMED BY: ANGELI LabDajuan Jqjiun0210 [address] RoadDublin [place] [id number] ALP [Catalytic activity/Vol] 79 U/L Normal 47-112 [facility] Work Phone: Comment on above: PATIENT WAS FASTINGP ERFORMED BY: ANGELI [facility] Yweulr9001 [address] RoadDublin [place] [id number] ALP enzyme act/vol 79 [iU]/L Normal 47-112 [facility] Internal Medicine Work Phone: Comment on above: PATIENT WAS FASTINGP ERFORMED BY: ANGELI [facility] Uykjkr4760 [address] RoadDublin [place] [id number] ALT [Catalytic activity/Vol] 81 U/L Abnormal 0-32 [facility] Internal Medicine Work Phone: Comment on above: PATIENT WAS FASTINGP ERFORMED BY: ANGELI [facility] Wgqwng6333 [address] RoadDublin [place] [id number] ALT enzyme act/vol 81 [iU]/L Abnormal 0-32 [facility] Internal Medicine Work Phone: Comment on above: PATIENT WAS FASTINGP ERFORMED BY: ANGELI [facility] Fphvgr8959 [address] RoadDublin [place] [id number] AST [Catalytic activity/Vol] 65 U/L Abnormal 0-40 [facility] Internal Medicine Work Phone: Comment on above: PATIENT WAS FASTINGP ERFORMED BY: ANGELI [facility] Xoiuus6736 [address] RoadDublin [place] [id number] AST enzyme act/vol 65 [iU]/L Abnormal 0-40 [facility] Internal Medicine Work Phone: Comment on above: PATIENT WAS FASTINGP ERFORMED BY: ANGELI [facility] Ejhixv9955 [address] RoadDublin [place] [id number] Bilirubin mass conc 0.3 mg/dL Normal 0.0-1.2 [facility] Internal Medicine Work Phone: Comment on above: PATIENT WAS FASTINGP ERFORMED BY: ANGELI [facility] Pskmdn0350 [address]Dublin [place] [id number] Calcium mass conc 10.0 mg/dL Normal 8.6-10.2 [facility] Internal Medicine Work Phone: Comment on above: PATIENT WAS FASTINGP ERFORMED BY: ANGELI [facility] Wcigxp2970 [address] RoadDublin [place] [id number] Chloride molar conc 105 mmol/L Normal 97-108 Compr ehensive Internal Medicine Work Phone: Comment on above: PATIENT WAS FASTINGP ERFORMED BY: ANGELI [facility] Sdbrmy[address] [facility] [place] [id number] CO2 molar conc 24 mmol/L Normal 19-28 Comprehens michael Internal Medicine Work Phone: Comment on above: PATIENT WAS FASTINGP ERFORMED BY: ANGELI [facility] Brrhlg[address] [facility] [id number] Creatinine mass conc 0.68 mg/dL Normal 0.57-1.00 [facility]erensive [facility] Work Phone: Comment on above: PATIENT WAS FASTINGP ERFORMED BY: ANGELI [facility] Zpguve[address] [facility] [id number] GFR/1.73 sq M predicted among blacks CKD-EPI vol rate/area (S/P/Bld) 104 mL/min/1.73 Normal Comprehe nsive Internal Medicine Work Phone: Comment on above: PATIENT WAS FASTINGP ERFORMED BY: ANGELI [facility] Slqibg[address] [facility] [id number] GFR/1.73 sq M predicted among non-blacks CKD-EPI vol rate/area (S/P/Bld) 90 mL/min/1.73 Normal [facility] Work Phone: Comment on above: PATIENT WAS FASTINGP ERFORMED BY: ANGELI [facility] Ozpxcl1042 [facility] [id number] Globulin Calculated mass conc (S) 3.0 g/dL Normal 1.5-4.5 [facility] Work Phone: Globulin mass conc (S) 3.0 g/dL Normal 1.5-4.5 [facility]eren[facility] Work Phone: Comment on above: PATIENT WAS FASTINGP ERFORMED BY: ANGELI [facility] Ywuytj[address] [facility] [place] [id number] Glucose mass conc 82 mg/dL Normal 65-99 Compreh ensive Internal Medicine Work Phone: Comment on above: PATIENT WAS FASTINGP ERFORMED BY: ANGELI [facility] Rjzsbh5233 [address] RoadDublin [place] [id number] Potassium molar conc 4.9 mmol/L Normal 3.5-5.2 Comp rehensive Internal Medicine Work Phone: Comment on above: PATIENT WAS FASTINGP ERFORMED BY: ANGELI [facility] Voehng0555 [address] Roadblin [place] [id number] Protein mass conc 7.5 g/dL Normal 6.0-8.5 Compreh ensive Internal Medicine Work Phone: Comment on above: PATIENT WAS FASTINGP ERFORMED BY: ANGELI [facility] Rupkyb6496 [address] RoadDublin [place] [id number] Sodium molar conc 143 mmol/L Normal 134-144 Compreh ensive Internal Medicine Work Phone: Comment on above: PATIENT WAS FASTINGP ERFORMED BY: ANGELI [facility] Tvselj0517 Mcg[address] RoadAshe Memorial Hospitalin [place] [id number] Urea nitrogen mass conc 12 mg/dL Normal 8-27 C omprehensive Internal Medicine Work Phone: Comment on above: PATIENT WAS FASTINGP ERFORMED BY: ANGELI [facility] Egyljg5616 [address] RoadDublin [place] [id number] Urea nitrogen/Creatinine mass ratio 18 mg/mg Normal 11-26 [facility] Work Phone: Comment on above: PATIENT WAS FASTINGP ERFORMED BY: ANGELI [facility] Vuwcni30[address] [facility] [place] [id number] TSH ([id number])Ordered By: Eb Arauz on 08-07-2013 Thyrotropin Qn 6.980 {uIU/mL} Abnormal 0.450-4.50 0 [facility] Work Phone: Comment on above: PATIENT WAS FASTINGP ERFORMED BY: ANGELI [facility] Xsnfsz7718 [address] RoadDublin [place] [id number] Urinalysis, Office ([id number])Or dered By: Federica Olivarez on 08-07-2013 Bilirubin [...] 12:51-0400 Body temperature 98.3 [degF] Karen Lewisam COLD MILL OPERATOR-C Work Phone: [facility] 05-31-2025 12:51-0400 Diastolic blood pressure 61 mm[Hg] Karen Lewisam COLD MILL OPERATOR-C Work Phone: [facility] 05-31-2025 12:51-0400 Heart rate 85 /min Karen Lewisam COLD MILL OPERATOR-C Work Phone: [facility] 05-31-2025 12:51-0400 Respiratory rate 16 /min Karen Lewisam COLD MILL OPERATOR-C Work Phone: [facility] 05-31-2025 12:51-0400 SaO2% (BldA) [Mass fraction] 97 % Karen Alcazar COLD MILL OPERATOR-C Work Phone: [facility] 05-31-2025 12:51-0400 Systolic blood pressure 149 mm[Hg] Karen Lewisam COLD MILL OPERATOR-C Work Phone: [facility] 05-31-2025 10:10-0400 Body height 152.4 cm Karen Lewisam COLD MILL OPERATOR-C Work Phone: [facility] 05-31-2025 10:10-0400 Body mass index (BMI) [Ratio] 32.8 kg/m2 Karen Ottoniel COLD MILL OPERATOR-C Work Phone: [facility] 05-31-2025 10:10-0400 Body weight 76.3 kg Karen Lewisam COLD MILL OPERATOR-C Work Phone: [facility] 07-20-2023 11:08-0400 Body height 149.86 cm Flavia [...] Diastolic blood pressure 80 mm[Hg] 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 [facility]; [facility] Work Phone: 01-19-2023 09:49-0500 Heart rate 77 /min 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 [facility]; [facility] Work Phone: 01-19-2023 09:49-0500 Respiratory rate 16 /min 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 [facility]; [facility] Work Phone: 01-19-2023 09:49-0500 SaO2% (BldA) [Mass fraction] 96 % 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 [facility]; [facility] Work Phone: 01-19-2023 09:49-0500 Systolic blood pressure 118 mm[Hg] 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 [facility]; [facility] Work Phone: 09-22-2022 08:57-0400 Body height 149.86 cm 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 [facility]; [facility] Work Phone: 09-22-2022 08:57-0400 Body mass index (BMI) [Ratio] 32.92 kg/m2 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 [facility]; [facility] Work Phone: 09-22-2022 08:57-0400 Body surface area Derived from formula 1.69 m2 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 [facility]; [facility] Work Phone: 09-22-2022 08:57-0400 Body temperature 96.4 [degF] 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 [facility]; [facility] Work Phone: 09-22-2022 08:57-0400 Body weight 73.94 kg 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 [facility]; [facility] Work Phone: 09-22-2022 08:57-0400 Diastolic blood pressure 78 mm[Hg] 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 [facility]; [facility] Work Phone: 09-22-2022 08:57-0400 Heart rate 74 /min 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 [facility]; [facility] Work Phone: 09-22-2022 08:57-0400 Respiratory rate 17 /min Latrice Levy LPN [facility]; [facility] Work Phone: 09-22-2022 08:57-0400 SaO2% (BldA) [Mass fraction] 97 % Latrice Levy GENERAL INSPECTOR [facility]; [facility] Work Phone: 09-22-2022 08:57-0400 Systolic blood pressure 126 mm[Hg] Latrice Levy GENERAL INSPECTOR [facility]; [facility] Work Phone: 08-12-2022 14:00-0400 Body height 149.86 cm Nellie Knox GENERAL INSPECTOR [facility]; [facility] Work Phone: Comment on above: virtual, none reported 08-12-2022 14:00-0400 Body mass index (BMI) [Ratio] 33.02 kg/m2 Nellie Knox [facility]; [facility] Work Phone: Comment on above: virtual, none reported 08-12-2022 14:00-0400 Body surface area Derived from formula 1.69 m2 Nellie Knox GENERAL INSPECTOR [facility]; [facility] Work Phone: Comment on above: virtual, none reported 08-12-2022 14:00-0400 Body weight 74.16 kg Nellie Knox GENERAL INSPECTOR [facility]; [facility] Work Phone: Comment on above: virtual, none reported 07-07-2022 10:48-0400 Body height 149.86 cm Karen Alcazar WATER FITNESS INSTRUCTOR Work Phone: [facility]; [facility] Work Phone: Comment on above: pt did not report 07-07-2022 10:48-0400 Body mass index (BMI) [Ratio] 33.02 kg/m2 Karen Alcazar WATER FITNESS INSTRUCTOR Work Phone: [facility]; [facility] Work Phone: Comment on above: pt did not report 07-07-2022 10:48-0400 Body surface area Derived from formula 1.69 m2 Karen Alcazar WATER FITNESS INSTRUCTOR Work Phone: [facility]; [facility] Work Phone: Comment on above: pt did not report 07-07-2022 10:48-0400 Body temperature 97.8 [degF] Karen Alcazar WATER FITNESS INSTRUCTOR Work Phone: [facility]; [facility] Work Phone: Comment on above: pt did not report 07-07-2022 10:48-0400 Body weight 74.16 kg Karen Alcazar WATER FITNESS INSTRUCTOR Work Phone: [facility]; [facility] [...] 13:31-0400 Body height 149.86 cm Federica Olivarez [facility]; [facility] Work Phone: 02-27-2022 13:31-0400 Body mass index (BMI) [Ratio] 33.63 kg/m2 Federica Olivarez [facility]; [facility] Work Phone: 02-27-2022 13:31-0400 Body surface area Derived from formula 1.71 m2 Federica Olivarez [facility]; [facility] Work Phone: 02-27-2022 13:31-0400 Body temperature 97 [degF] Federica Olivarez [facility]; [facility] Work Phone: Comment on above: Method: Thermal Scan 02-27-2022 13:31-0400 Body weight 75.52 kg Federica Olivarez [facility]; [facility] Work Phone: 02-27-2022 13:31-0400 Diastolic blood pressure 78 mm[Hg] Federica Olivarez [facility]; Comprehensive Internal Medicine Work Phone: Comment on above: Patient Position: Sitting; Cuff Location : Left Arm; Cuff Size: Standard 02-27-2022 13:31-0400 Heart rate 77 /min Federica Olivarez [facility]; [facility] Work Phone: Comment on above: Pattern: Regular 02-27-2022 13:31-0400 Respiratory rate 16 /min Federica Olivarez [facility]; [facility] Work Phone: Comment on above: Pattern: Unlabored 02-27-2022 13:31-0400 SaO2% (BldA) [Mass fraction] 97 % Federica Olivarez [facility]; [facility] Work Phone: Comment on above: Room air 02-27-2022 13:31-0400 Systolic blood pressure 116 mm[Hg] Federica Olivarez [facility]; [facility] Work Phone: Comment on above: Patient Position: Sitting; Cuff Location : Left Arm; Cuff Size: Standard 11-18-2021 09:32-0500 Body height 149.86 cm Latrice Slaroya [facility]; [facility] Work Phone: 11-18-2021 09:32-0500 Body mass index (BMI) [Ratio] 33.12 kg/m2 Latrice Cam [facility] Medicine; [facility] [...] Diastolic blood pressure 78 mm[Hg] 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 [facility]; [facility] Work [...] (Body Mass Index) 34.34 kg/m2 Federica Hallvimalbrenda [facility]; [facility] Work Phone: 02-24-2021 10:54-0400 Body Temperature 96.4 [degF] Federica Hallvimalbrenda [facility]; [facility] Work Phone: Comment on above: Method: Thermal Scan 02-24-2021 10:54-0400 Body weight 77.11 kg Federica Olivarez [facility]; [facility] Work Phone: 02-24-2021 10:54-0400 BP Diastolic 70 mm[Hg] Federica Olivarez [facility]; [facility] Work Phone: Comment on above: Patient Position: Sitting; Cuff Location : Left Arm; Cuff Size: Standard 02-24-2021 10:54-0400 BP Systolic 132 mm[Hg] Federica Olivarez [facility]; [facility] Work Phone: Comment on above: Patient Position: Sitting; Cuff Location : Left Arm; Cuff Size: Standard 02-24-2021 10:54-0400 BSA (Body Surface Area) 1.72 m2 Federica Olivarez [facility]; [facility] Work Phone: 02-24-2021 10:54-0400 Height 149.86 cm Federica Olivarez [facility]; [facility] Work Phone: 02-24-2021 10:54-0400 Pulse (Heart Rate) 78 /min Federica Olivarez [facility]; [facility] Work Phone: Comment on above: Pattern: Regular 02-24-2021 10:54-0400 Pulse Oximetry 98 % Marcia Walker [facility] Internal Medicine; [facility] Medicine Work Phone: Comment on above: Room air 02-24-2021 10:54-0400 Respiratory Rate 16 /min Federica Hallvimalbrenda [facility] Internal Medicine; [facility] Work Phone: Comment on above: Pattern: Unlabored 02-24-2021 10:54-0400 SaO2% (BldA) [Mass fraction] 98 % Federica Hallvimalbrenda [facility]; [facility] Work Phone: Comment on above: Room air 06-10-2020 07:57-0400 BMI (Body Mass Index) 34.34 kg/m2 Haseeb Brizuela LPN [facility] Internal Medicine Work Phone: 06-10-2020 07:57-0400 Body Temperature 97.1 [degF] Haseeb Brizuela LPN [facility] Internal Medicine Work Phone: Comment on above: Method: Infrared 06-10-2020 07:57-0400 Body weight 77.11 kg Haseeb Brizuela LPN [facility] Internal Medicine Work Phone: 06-10-2020 07:57-0400 BP Diastolic 76 mm[Hg] Haseeb Brizuela LPN [facility] Internal Medicine Work Phone: Comment on above: Patient Position: Sitting; Cuff Location : Left Arm; Cuff Size: Standard 06-10-2020 07:57-0400 BP Systolic 120 mm[Hg] Haseeb Brizuela LPN [facility] Internal Medicine Work Phone: Comment on above: Patient Position: Sitting; Cuff Location : Left Arm; Cuff Size: Standard 06-10-2020 07:57-0400 BSA (Body Surface Area) 1.72 m2 Haseeb Brizuela LPN [facility] Internal Medicine Work Phone: 06-10-2020 07:57-0400 Height 149.86 cm Haseeb Brizuela LPN [facility] Internal Medicine Work Phone: 06-10-2020 07:57-0400 Pulse (Heart Rate) 74 /min Haseeb Brizuela LPN Comprehensiv e Internal Medicine Work Phone: Comment on above: Pattern: Regular 06-10-2020 07:57-0400 Pulse Oximetry 95 % Marcia Aaron [facility] Internal Medicine Work Phone: Comment on above: Room air 06-10-2020 07:57-0400 Respiratory Rate 16 /min Haseeb Brizuela LPN [facility] Internal Medicine Work Phone: Comment on above: Pattern: Unlabored 06-10-2020 07:57-0400 SaO2% (BldA) [Mass fraction] 95 % Haseeb Brizuela LPN [facility] Internal Medicine Work Phone: Comment on above: Room air 02-23-2020 06:45-0400 BMI (Body Mass Index) 34.84 kg/m2 Haseeb Brizuela LPN Comprehen sive Internal Medicine Work Phone: 02-23-2020 06:45-0400 Body weight 78.25 kg Haseeb Brizuela LPN [facility] Internal Medicine Work Phone: 02-23-2020 06:45-0400 BSA (Body Surface Area) 1.73 m2 Haseeb Brizuela LPN [facility] Internal Medicine Work Phone: 02-23-2020 06:45-0400 Height 149.86 cm Haseeb Brizuela LPN [facility] Internal Medicine Work Phone: 02-21-2020 12:14-0400 BMI (Body Mass Index) 34.84 kg/m2 Marcia Walker WATER FITNESS INSTRUCTOR Work Phone: [facility] Work Phone: Comment on above: will report temp when [facility] calls 02-21-2020 12:14-0400 Body Temperature 98 [degF] Marcia Walker WATER FITNESS INSTRUCTOR Work Phone: [facility] Work Phone: Comment on above: will report temp when [facility] calls 02-21-2020 12:14-0400 Body weight 78.25 kg Marcia Walker WATER FITNESS INSTRUCTOR Work Phone: [facility] Work Phone: Comment on above: will report temp when [facility] calls 02-21-2020 12:14-0400 BP Diastolic 61 mm[Hg] Marcia Meiera WATER FITNESS INSTRUCTOR Work Phone: [facility] Work Phone: Comment on above: Patient Position: Supine; Cuff Location: Right Arm; Cuff Size: Standard will report temp whe n [facility] calls 02-21-2020 12:14-0400 BP Systolic 124 mm[Hg] Marcia Meiera WATER FITNESS INSTRUCTOR Work Phone: [facility] Work Phone: Comment on above: Patient Position: Supine; Cuff Location: Right Arm; Cuff Size: Standard will report temp whe n [facility] calls 02-21-2020 12:14-0400 BSA (Body Surface Area) 1.73 m2 Marcia Meiera WATER FITNESS INSTRUCTOR Work Phone: [facility] Work Phone: Comment on above: will report temp when [facility] calls 02-21-2020 12:14-0400 Height 149.86 cm Marcia Meiera WATER FITNESS INSTRUCTOR Work Phone: [facility] Work Phone: Comment on above: will report temp when [facility] calls 02-21-2020 12:14-0400 Pulse (Heart Rate) 75 /min Marcia Meiera W[employer] FITNESS INSTRUCTOR Work Phone: [facility] Work Phone: Comment on above: Pattern: Regular will report temp whe n [facility] calls 02-16-2020 07:40-0400 BMI (Body Mass Index) 34.84 kg/m2 Haseeb Brizuela LPN [facility] Internal Medicine Work Phone: 02-16-2020 [...] Body Temperature 97.1 [degF] Nellie Knox LPN [facility] Internal Medicine Work Phone: Comment on above: Method: Temporal 11-06-2019 09:46-0500 Body weight 78.25 kg Nellie Knox LPN [facility] Internal Medicine Work Phone: 11-06-2019 09:46-0500 BP Diastolic 78 mm[Hg] Nellie Knox LPN [facility] Internal Medicine Work Phone: Comment on above: Patient Position: Sitting; Cuff Location : Left Arm; Cuff Size: Standard 11-06-2019 09:46-0500 BP Systolic 120 mm[Hg] Nellie Knox LPN [facility] Internal Medicine Work Phone: Comment on above: Patient Position: Sitting; Cuff Location : Left Arm; Cuff Size: Standard 11-06-2019 09:46-0500 BSA (Body Surface Area) 1.73 m2 Nellie Knox LPN [facility] Work Phone: 11-06-2019 09:46-0500 Height 149.86 cm Nellie Knox LPN [facility] Internal Medicine Work Phone: 11-06-2019 09:46-0500 Pulse (Heart Rate) 88 /min Nellie Knox LPN Comprehensi Internal Medicine Work Phone: Comment on above: Pattern: Regular 11-06-2019 09:46-0500 Pulse Oximetry 93 % Marcia Walker [facility] Internal Medicine Work Phone: Comment on above: Room air 11-06-2019 09:46-0500 Respiratory Rate 16 /min Nellie Knox LPN [facility] Internal Medicine Work Phone: Comment on above: Pattern: Unlabored 11-06-2019 09:46-0500 SaO2% (BldA) [Mass fraction] 93 % Nellie Knox LPN [facility] Internal Medicine Work Phone: Comment on above: Room air 11-06-2019 08:21-0500 BMI (Body Mass Index) 33.94 kg/m2 Haseeb Brizuela S[facility] Comprehen sive Internal Medicine Work Phone: 11-06-2019 08:21-0500 Body weight 76.22 kg Haseeb Brizuela [facility] Work Phone: 11-06-2019 08:21-0500 BSA (Body Surface Area) 1.71 m2 Haseeb Brizuela S[place] [facility] Internal Medicine Work Phone: 11-06-2019 08:21-0500 Height 149.86 cm Haseeb Gelacio [facility] Work Phone: 08-28-2019 15:07-0400 BMI (Body Mass Index) 33.94 kg/m2 Haseeb Brizuela SLAONE Comprehen sive Internal Medicine Work Phone: 08-28-2019 15:07-0400 Body Temperature 97.9 [degF] Haseeb Brizuela S[place] [facility] Internal Medicine Work Phone: Comment on above: Method: Temporal 08-28-2019 15:07-0400 Body weight 76.22 kg Haseeb Brizuela [facility] Work Phone: 08-28-2019 15:07-0400 BP Diastolic 78 mm[Hg] Haseeb Gelacio AN[place] [facility] Internal Medicine Work Phone: Comment on above: Patient Position: Sitting; Cuff Location : Left Arm; Cuff Size: Standard 08-28-2019 15:07-0400 BP Systolic 140 mm[Hg] Haseeb Brizuela S[place]ANE [facility] Internal Medicine Work Phone: Comment on above: Patient Position: Sitting; Cuff Location : Left Arm; Cuff Size: Standard 08-28-2019 15:07-0400 BSA (Body Surface Area) 1.71 m2 Haseeb Brizuela S[place] [facility] Internal Medicine Work Phone: 08-28-2019 15:07-0400 Height 149.86 cm Haseeb Gelacio AN[place] [facility] Internal Medicine Work Phone: 08-28-2019 15:07-0400 Pulse (Heart Rate) 100 /min Haseeb Brizuela [place] Comprehensiv e Internal Medicine Work Phone: Comment on above: Pattern: Regular 08-28-2019 15:07-0400 Pulse Oximetry 96 % Marcia Walker [facility] Internal Medicine Work Phone: Comment on above: Room air 08-28-2019 15:07-0400 Respiratory Rate 16 /min Haseeb Brizuela LPN [facility] Internal Medicine Work Phone: Comment on above: Pattern: Unlabored 08-28-2019 15:07-0400 SaO2% (BldA) [Mass fraction] 96 % Haseeb Brizuela LPN [facility] Internal Medicine Work Phone: Comment on above: Room air 04-03-2019 10:51-0400 BMI (Body Mass Index) 35.35 kg/m2 Haseeb Brizuela LPN Comprehen sive Internal Medicine Work Phone: 04-03-2019 10:51-0400 Body Temperature 98 [degF] Haseeb Brizuela LPN [facility] Internal Medicine Work Phone: Comment on above: Method: Temporal 04-03-2019 10:51-0400 Body weight 79.38 kg Haseeb Brizuela LPN [facility] Internal Medicine Work Phone: 04-03-2019 10:51-0400 BP Diastolic 68 mm[Hg] Haseeb Brizuela LPN [facility] Internal Medicine Work Phone: Comment on above: Patient Position: Sitting; Cuff Location : Left Arm; Cuff Size: Standard 04-03-2019 10:51-0400 BP Systolic 118 mm[Hg] Haseeb Brizuela LPN [facility] Internal Medicine Work Phone: Comment on above: Patient Position: Sitting; Cuff Location : Left Arm; Cuff Size: Standard 04-03-2019 10:51-0400 BSA (Body Surface Area) 1.74 m2 Haseeb Brizuela LPN [facility] Internal Medicine Work Phone: 04-03-2019 10:51-0400 Height 149.86 cm Haseeb Brizuela LPN [facility] Internal Medicine Work Phone: 04-03-2019 10:51-0400 Pulse (Heart Rate) 110 /min Haseeb Brizuela LPN Comprehensiv e Internal Medicine Work Phone: Comment on above: Pattern: Regular 04-03-2019 10:51-0400 Pulse Oximetry 98 % Marcia Dominiquemeryltarsah [facility] Internal Medicine Work Phone: Comment on [...] Body Temperature 97 [degF] Haseeb Brizuela LPN [facility] Internal Medicine Work Phone: Comment on above: Method: Temporal 03-13-2019 08:08-0400 Body weight 79.38 kg Haseeb Brizuela LPN [facility] Work Phone: 03-13-2019 08:08-0400 BP Diastolic 78 mm[Hg] Haseeb Brizuela LPN [facility] Internal Medicine Work Phone: Comment on above: Patient Position: Sitting; Cuff Location : Left Arm; Cuff Size: Standard 03-13-2019 08:08-0400 BP Systolic 144 mm[Hg] Haseeb Brizuela LPN [facility] Internal Medicine Work Phone: Comment on above: Patient Position: Sitting; Cuff Location : Left Arm; Cuff Size: Standard 03-13-2019 08:08-0400 BSA (Body Surface Area) 1.74 m2 Haseeb Brizuela LPN [facility] Internal Medicine Work Phone: 03-13-2019 08:08-0400 Height 149.86 cm Haseeb Brizuela LPN [facility] Internal Medicine Work Phone: 03-13-2019 08:08-0400 Pulse (Heart Rate) 88 /min Haseeb Brizuela LPN Comprehensiv e Internal Medicine Work Phone: Comment on above: Pattern: Regular 03-13-2019 08:08-0400 Pulse Oximetry 95 % Marcia Walker [facility] Internal Medicine Work Phone: Comment on above: Room air 03-13-2019 08:08-0400 Respiratory Rate 18 /min Haseeb Brizuela LPN [facility] Internal Medicine Work Phone: Comment on above: Pattern: Unlabored 03-13-2019 08:08-0400 SaO2% (BldA) [Mass fraction] 95 % Haseeb Brizuela LPN [facility] Internal Medicine Work Phone: Comment on above: Room air 03-13-2019 08:08-0400 Weight 79.15 kg Marcia Walker [facility] Internal Medicine Work Phone: 03-13-2019 08:08-0400 Weight 79.38 kg Marcia Walker [facility] Medicine Work Phone: 01-19-2019 10:30-0500 BMI (Body Mass Index) 35.24 kg/m2 [facility] Work [facility]: 01-19-2019 10:30-0500 Body Temperature 97.2 [degF] [facility] Work Phone: Comment on above: Method: Temporal 01-19-2019 10:30-0500 Body weight 79.15 kg Federica Olivarez [facility] Internal Medicine Work Phone: 01-19-2019 10:30-0500 BP Diastolic 78 mm[Hg] [facility] Work Phone: Comment on above: Patient Position: Sitting; Cuff Location : Left Arm; Cuff Size: Standard 01-19-2019 10:30-0500 BP Systolic 130 mm[Hg] [facility] Work Phone: Comment on above: Patient Position: Sitting; Cuff Location : Left Arm; Cuff Size: Standard 01-19-2019 10:30-0500 BSA (Body Surface Area) 1.74 m2 [facility] Work Phone: 01-19-2019 10:30-0500 Height 149.86 cm [facility] Internal Medicine Work Phone: 01-19-2019 10:30-0500 Pulse (Heart Rate) 75 /min Federica Olivarez [facility] Internal Medicine Work Phone: Comment on above: Pattern: Regular 01-19-2019 10:30-0500 Pulse Oximetry 97 % Marcia Walker [facility] Internal Medicine Work Phone: Comment on above: Room air 01-19-2019 10:30-0500 Respiratory Rate 16 /min Federica Olivarez [facility] Internal Medicine Work Phone: Comment on above: Pattern: Unlabored 01-19-2019 10:30-0500 SaO2% (BldA) [Mass fraction] 97 % Federica Olivarez [facility] Internal Medicine Work Phone: Comment on above: Room air 01-19-2019 10:30-0500 Weight 79.15 kg Marcia Walker [facility] Internal Medicine Work Phone: 10-05-2018 10:09-0500 BMI (Body Mass Index) 35.85 kg/m2 Myra Fowler [facility] Internal Medicine Work Phone: 10-05-2018 10:09-0500 Body Temperature 97.6 [degF] Myra Fowler [facility] Internal Medicine Work Phone: Comment on above: Method: Temporal 10-05-2018 10:09-0500 Body weight 80.51 kg Myra Fowler [facility] Internal Medicine Work Phone: 10-05-2018 10:09-0500 BP Diastolic 70 mm[Hg] [facility] Work Phone: Comment on above: Patient Position: Sitting; Cuff Location : Left Arm; Cuff Size: Standard 10-05-2018 10:09-0500 BP Systolic 118 mm[Hg] Myra Fowler [facility] Internal Medicine Work Phone: Comment on above: Patient Position: Sitting; Cuff Location : Left Arm; Cuff Size: Standard 10-05-2018 10:09-0500 BSA (Body Surface Area) 1.75 m2 Myra Fowler [facility] Internal Medicine Work Phone: 10-05-2018 10:09-0500 Height 149.86 cm Myra Fowler [facility] Internal Medicine Work Phone: 10-05-2018 10:09-0500 Pulse (Heart Rate) 84 /min Myra Fowler [facility] Internal Medicine Work Phone: Comment on above: Pattern: Regular 10-05-2018 10:09-0500 Pulse Oximetry 96 % Marcia Walker [facility] Internal Medicine Work Phone: Comment on above: Room air 10-05-2018 10:09-0500 Respiratory Rate 16 /min Myra Fowler [facility] Internal Medicine Work Phone: Comment on above: Pattern: Unlabored 10-05-2018 10:09-0500 SaO2% (BldA) [Mass fraction] 96 % Myra Fowler [facility] Internal Medicine Work Phone: Comment on above: Room air 10-05-2018 10:09-0500 Weight 80.51 kg Marcia Walker [facility] Internal Medicine Work Phone: 09-16-2018 10:33-0400 BMI (Body Mass Index) 35.75 kg/m2 Myra Fowler [facility] michael Internal Medicine Work Phone: 09-16-2018 10:33-0400 Body weight 80.29 kg Myra Fowler [facility] Internal Medicine Work Phone: 09-16-2018 10:33-0400 BSA (Body Surface Area) 1.75 m2 Myra Fowler [facility] Internal Medicine Work Phone: 09-16-2018 10:33-0400 Height 149.86 cm Myra Fowler [facility] Internal Medicine Work Phone: 09-16-2018 10:33-0400 Weight 80.29 kg Marcia Walker [facility] Internal Medicine Work Phone: 06-27-2018 09:57-0400 BMI (Body Mass Index) 35.75 kg/m2 [facility]idy [facility]acho [facility] Internal Medicine Work Phone: 06-27-2018 09:57-0400 [...] Mass Index) 35.77 kg/m2 Haseeb Brizuela LPN [facility] Internal Medicine Work Phone: 06-14-2018 08:29-0400 Body Temperature 97.8 [degF] Haseeb Brizuela LPN [facility] Work Phone: 06-14-2018 08:29-0400 Body weight 80.34 kg Haseeb Brizuela LPN [facility] Work Phone: 06-14-2018 08:29-0400 BP Diastolic 82 mm[Hg] Haseeb Brizulea LPN [facility] Work Phone: Comment on above: Patient Position: Sitting; Cuff Location : Left Arm; Cuff Size: Standard 06-14-2018 08:29-0400 BP Systolic 132 mm[Hg] Haseeb Brizuela LPN [facility] Internal Medicine Work Phone: Comment on above: Patient Position: Sitting; Cuff Location : Left Arm; Cuff Size: Standard 06-14-2018 08:29-0400 BSA (Body Surface Area) 1.75 m2 Haseeb Brizuela LPN [facility] Internal Medicine Work Phone: 06-14-2018 08:29-0400 Height 149.86 cm Haseeb Brizuela LPN [facility] Internal Medicine Work Phone: 06-14-2018 08:29-0400 Pulse (Heart Rate) 88 /min Haseeb Brizuela LPN Comprehensiv e Internal Medicine Work Phone: Comment on above: Pattern: Regular 06-14-2018 08:29-0400 Pulse Oximetry 95 % [facility] Work Phone: Comment on above: Room air 06-14-2018 08:29-0400 Respiratory Rate 16 /min Haseeb Brizuela LPN [facility] Internal Medicine Work Phone: Comment on above: Pattern: Unlabored 06-14-2018 08:29-0400 SaO2% (BldA) [Mass fraction] 95 % Haseeb Brizuela [facility] Internal Medicine Work Phone: Comment on above: Room air 06-14-2018 08:29-0400 Weight 80.34 kg Marcia Walker [facility] Internal Medicine Work Phone: 03-15-2018 10:58-0400 BMI [...] BP Systolic 124 mm[Hg] Heidy Camacho RN [facility] Internal Medicine Work Phone: Comment on above: Patient Position: Sitting; Cuff Location : Left Arm; Cuff Size: Standard 03-15-2018 10:58-0400 BSA (Body Surface Area) 1.76 m2 Heidy Camacho RN [facility] Work Phone: 03-15-2018 10:58-0400 Height 149.86 cm Heidy Camacho RN [facility] Work Phone: 03-15-2018 10:58-0400 Pulse (Heart Rate) 65 /min Heidy Camacho RN [facility] Internal Medicine Work Phone: Comment on above: Pattern: Regular 03-15-2018 10:58-0400 Pulse Oximetry 95 % Marcia Meiertarsha [facility] Internal Medicine Work Phone: Comment on above: Room air 03-15-2018 10:58-0400 Respiratory Rate 16 /min Heidy Camacho RN [facility] Work Phone: Comment on above: Pattern: Unlabored 03-15-2018 10:58-0400 SaO2% (BldA) [Mass fraction] 95 % Heidy Camacho RN [facility] Work Phone: Comment on above: Room air 03-15-2018 10:58-0400 Weight 80.74 kg Marcia Walker [facility] Internal Medicine Work Phone: 12-06-2017 11:12-0500 BMI (Body Mass Index) 35.75 kg/m2 Latrice Eleanorrb GENERAL INSPECTOR [facility] Internal Medicine Work Phone: 12-06-2017 11:12-0500 Body Temperature 97.7 [degF] Latrice Levy LPN [facility] Internal Medicine Work Phone: 12-06-2017 11:12-0500 Body weight 80.29 kg Latrice Levy LPN [facility] Internal Medicine Work Phone: 12-06-2017 11:12-0500 BP Diastolic 80 mm[Hg] Latrice Eleanorrb SLOANE [facility] Internal Medicine Work Phone: Comment on [...] 11:12-0500 Pulse Oximetry 97 % Marcia Walker [facility] Internal Medicine Work Phone: Comment on above: Room air 12-06-2017 11:12-0500 Respiratory Rate 17 /min Latrice Levy LPN [facility] Work Phone: Comment on above: Pattern: Unlabored 12-06-2017 11:12-0500 SaO2% (BldA) [Mass fraction] 97 % Latrice Levy LPN [facility] Work Phone: Comment on above: Room air 12-06-2017 11:12-0500 Weight 80.29 kg Marcia Walker [facility] Internal Medicine Work Phone: 11-30-2017 09:30-0500 BMI [...] 09:30-0500 Pulse Oximetry 95 % Marcia Walker [facility] Internal Medicine Work Phone: Comment on above: Room air 11-30-2017 09:30-0500 Respiratory Rate 18 /min Veronique Childers RN [facility] Work Phone: Comment on above: Pattern: Unlabored 11-30-2017 09:30-0500 SaO2% (BldA) [Mass fraction] 95 % Veronique Childers RN [facility] Work Phone: Comment on above: Room air 11-30-2017 09:30-0500 Weight 78.47 kg Marcia Walker [facility] Internal Medicine Work Phone: 08-10-2017 14:52-0400 BMI (Body Mass Index) 34.94 kg/m2 Latrice Levy LPN [facility] Internal Medicine Work Phone: 08-10-2017 14:52-0400 Body Temperature 97.3 [degF] Latrice Levy LPN [facility] Internal Medicine Work Phone: 08-10-2017 14:52-0400 Body weight 78.47 kg Latrice Levy LPN [facility] Internal Medicine Work Phone: 08-10-2017 14:52-0400 BP Diastolic 82 mm[Hg] 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 [facility] Work Phone: Comment on above: Patient Position: Sitting; Cuff Location : Left Arm; Cuff Size: Standard 08-10-2017 14:52-0400 BP Systolic 142 mm[Hg] Latrice Eleanorrb GENERAL INSPECTOR [facility] Work Phone: Comment on above: Patient Position: Sitting; Cuff Location : Left Arm; Cuff Size: Standard 08-10-2017 14:52-0400 BSA (Body Surface Area) 1.73 m2 Latrice Eleanorrb GENERAL INSPECTOR [facility] Work Phone: 08-10-2017 14:52-0400 Height 149.86 cm Latrice Eleanorrb GENERAL INSPECTOR [facility] Internal Medicine Work Phone: 08-10-2017 14:52-0400 Pulse (Heart Rate) 99 /min Latrice Levy GENERAL INSPECTOR Com[facility] Internal Medicine Work Phone: Comment on above: Pattern: Regular 08-10-2017 14:52-0400 Pulse Oximetry 94 % Marcia Walker [facility] Internal Medicine Work Phone: Comment on above: Room air 08-10-2017 14:52-0400 Respiratory Rate 17 /min Latrice Levy GENERAL INSPECTOR [facility] Internal Medicine Work Phone: Comment on above: Pattern: Unlabored 08-10-2017 14:52-0400 SaO2% (BldA) [Mass fraction] 94 % Latrice Eleanorrb GENERAL INSPECTOR [facility] Internal Medicine Work Phone: Comment on above: Room air 08-10-2017 14:52-0400 Weight 78.47 kg Marcia Walker [facility] Internal Medicine Work Phone: 05-07-2017 11:00-0400 BMI (Body Mass Index) 33.93 kg/m2 Federica Olivarez [facility] Internal Medicine Work Phone: 05-07-2017 11:00-0400 Body weight 76.2 kg Federica Olivarez [facility] Internal Medicine Work Phone: 05-07-2017 11:00-0400 BP Diastolic 68 mm[Hg] Federica Olivarez [facility] Internal Medicine Work Phone: Comment on above: Patient Position: Sitting; Cuff Location : Left Arm; Cuff Size: Standard 05-07-2017 11:00-0400 BP Systolic 122 mm[Hg] Federica Olivarez [facility] Internal Medicine Work Phone: Comment on above: Patient Position: Sitting; Cuff Location : Left Arm; Cuff Size: Standard 05-07-2017 11:00-0400 BSA (Body Surface Area) 1.71 m2 Federica Olivarez [facility] Internal Medicine Work Phone: 05-07-2017 11:00-0400 Height 149.86 cm Federica Olivarez [facility] Internal Medicine Work Phone: 05-07-2017 11:00-0400 Pulse (Heart Rate) 103 /min Federica Olivarez [facility] Internal Medicine Work Phone: Comment on above: Pattern: Regular 05-07-2017 11:00-0400 Pulse Oximetry 98 % Marcia Walker [facility] Internal Medicine Work Phone: Comment on above: Room air 05-07-2017 11:00-0400 Respiratory Rate 16 /min Federica Olivarez [facility] Internal Medicine Work Phone: Comment on above: Pattern: Unlabored 05-07-2017 11:00-0400 SaO2% (BldA) [Mass fraction] 98 % Federica Olivarez [facility] Internal Medicine Work Phone: Comment on above: Room air 05-07-2017 11:00-0400 Weight 76.2 kg Marcia Walker [facility] Internal Medicine Work Phone: 02-09-2017 13:52-0400 BMI (Body Mass Index) 33.93 kg/m2 Latrice Levy LPN [facility] Internal Medicine Work Phone: 02-09-2017 13:52-0400 Body Temperature 97.1 [degF] Latrice Levy LPN [facility] Internal Medicine Work Phone: 02-09-2017 13:52-0400 Body weight 76.2 kg Latrice Levy LPN [facility] Work Phone: 02-09-2017 13:52-0400 BP Diastolic 76 mm[Hg] Latrice Eleanorrb GENERAL INSPECTOR [facility] Work Phone: Comment on above: Patient Position: Sitting; Cuff Location : Left Arm; Cuff Size: Standard 02-09-2017 13:52-0400 BP Systolic 118 mm[Hg] Latrice Websterrb GENERAL INSPECTOR [facility] Work Phone: Comment on above: Patient Position: Sitting; Cuff Location : Left Arm; Cuff Size: Standard 02-09-2017 13:52-0400 BSA (Body Surface Area) 1.71 m2 Latrice Websterrb GENERAL INSPECTOR [facility] Work Phone: 02-09-2017 13:52-0400 Height 149.86 cm Latrice Websterrb GENERAL INSPECTOR [facility] Work Phone: 02-09-2017 13:52-0400 Pulse (Heart Rate) 90 /min Latrice Websterrb GENERAL INSPECTOR Comprehens[facility] e Internal Medicine Work Phone: Comment on above: Pattern: Regular 02-09-2017 13:52-0400 Pulse Oximetry 96 % Marcia Walker [facility] Internal Medicine Work Phone: Comment on above: Room air 02-09-2017 13:52-0400 Respiratory Rate 16 /min Latrice Websterrb GENERAL INSPECTOR [facility] Work Phone: Comment on above: Pattern: Unlabored 02-09-2017 13:52-0400 SaO2% (BldA) [Mass fraction] 96 % Latrice Websterrb GENERAL INSPECTOR [facility] Work Phone: Comment on above: Room air 02-09-2017 13:52-0400 Weight 76.2 kg Marcia Walker [facility] Internal Medicine Work Phone: 12-09-2016 11:01-0500 BMI (Body Mass Index) 35.35 kg/m2 Latrice Eleanorrb GENERAL INSPECTOR Comprehen sive Internal Medicine Work Phone: 12-09-2016 11:01-0500 Body Temperature 97.8 [degF] Latrice Eleanorrb GENERAL INSPECTOR [facility] Work Phone: 12-09-2016 11:01-0500 Body weight 79.38 kg Latrice Websterrb GENERAL INSPECTOR [facility] Work Phone: 12-09-2016 11:01-0500 BP Diastolic 82 mm[Hg] Latrice Eleanorrb GENERAL INSPECTOR [facility] Work Phone: Comment on above: Patient Position: Sitting; Cuff Location : Left Arm; Cuff Size: Standard 12-09-2016 11:01-0500 BP Systolic 124 mm[Hg] Latrice Eleanorrb GENERAL INSPECTOR [facility] Work Phone: Comment on above: Patient Position: Sitting; Cuff Location : Left Arm; Cuff Size: Standard 12-09-2016 11:01-0500 BSA (Body Surface Area) 1.74 m2 Latrice Eleanorrb GENERAL INSPECTOR [facility] Work Phone: 12-09-2016 11:01-0500 Height 149.86 cm Latrice Eleanorrb GENERAL INSPECTOR [facility] Work Phone: 12-09-2016 11:01-0500 Pulse (Heart Rate) 102 /min Latrice Eleanorrb GENERAL INSPECTOR Comprehensiv e [facility] Medicine Work Phone: Comment on above: Pattern: Regular 12-09-2016 11:01-0500 Pulse Oximetry 98 % Marcia Walker [facility] Internal Medicine Work Phone: Comment on above: Room air 12-09-2016 11:01-0500 Respiratory Rate 16 /min Latrice Eleanorrb GENERAL INSPECTOR [facility] Work Phone: Comment on above: Pattern: Unlabored 12-09-2016 11:01-0500 SaO2% (BldA) [Mass fraction] 98 % 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 [facility] Work Phone: Comment on above: Room air 12-09-2016 11:01-0500 Weight 79.38 kg Marcia Walker [facility] Internal Medicine Work Phone: 10-13-2016 15:03-0500 BMI (Body Mass Index) 36.56 kg/m2 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 Comprehen sive Internal Medicine Work Phone: 10-13-2016 15:03-0500 Body Temperature 97.6 [degF] Latrice Levy GENERAL INSPECTOR [facility] Work Phone: 10-13-2016 15:03-0500 Body weight 82.1 kg Latrice Levy GENERAL INSPECTOR [facility] Work Phone: 10-13-2016 15:03-0500 BP Diastolic 82 mm[Hg] Latrice Eleanorrb GENERAL INSPECTOR [facility] Work Phone: Comment on above: Patient Position: Sitting; Cuff Location : Left Arm; Cuff Size: Standard 10-13-2016 15:03-0500 BP Systolic 124 mm[Hg] Latrice Websterrb GENERAL INSPECTOR [facility] Work Phone: Comment on above: Patient Position: Sitting; Cuff Location : Left Arm; Cuff Size: Standard 10-13-2016 15:03-0500 BSA (Body Surface Area) 1.77 m2 Latrice Websterrb GENERAL INSPECTOR [facility] Work Phone: 10-13-2016 15:03-0500 Height 149.86 cm Latrice Levy GENERAL INSPECTOR [facility] Work Phone: 10-13-2016 15:03-0500 [...] (BldA) [Mass fraction] 95 % Latrice Levy GENERAL INSPECTOR [facility] Work Phone: Comment on above: Room air 10-13-2016 15:03-0500 Weight 82.1 kg Marcia Walker [facility] Work Phone: 09-30-2016 11:20-0400 BMI (Body Mass Index) 36.56 kg/m2 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 Comprehen sive Internal Medicine Work Phone: 09-30-2016 11:20-0400 Body Temperature 98.2 [degF] Latrice Eleanorrb GENERAL INSPECTOR [facility] Work Phone: 09-30-2016 11:20-0400 Body weight 82.1 kg Latrice Websterrb GENERAL INSPECTOR [facility] Work Phone: 09-30-2016 11:20-0400 BP Diastolic 80 mm[Hg] 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 [facility] Work Phone: Comment on above: Patient Position: Sitting; Cuff Location : Left Arm; Cuff Size: Standard 09-30-2016 11:20-0400 BP Systolic 124 mm[Hg] Latrice Eleanorrb GENERAL INSPECTOR [facility] Work Phone: Comment on above: Patient Position: Sitting; Cuff Location : Left Arm; Cuff Size: Standard 09-30-2016 11:20-0400 BSA (Body Surface Area) 1.77 m2 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 [facility] Work Phone: 09-30-2016 11:20-0400 Height 149.86 cm Latrice Websterrb GENERAL INSPECTOR [facility] Work Phone: 09-30-2016 11:20-0400 Pulse (Heart Rate) 72 /min Latrice Eleanorrb GENERAL INSPECTOR Comprehensiv e Internal Medicine Work Phone: Comment on above: Pattern: Regular 09-30-2016 11:20-0400 Pulse Oximetry 96 % Marcia Walker [facility] Work Phone: Comment on above: Room air 09-30-2016 11:20-0400 Respiratory Rate 17 /min Latrice Levy GENERAL INSPECTOR [facility] Work Phone: Comment on above: Pattern: Unlabored 09-30-2016 11:20-0400 SaO2% (BldA) [Mass fraction] 96 % 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 [facility] Work Phone: Comment on above: Room air 09-30-2016 11:20-0400 Weight 82.1 kg Marcia Walker [facility] Internal Medicine Work Phone: 08-28-2013 14:44-0400 BMI (Body Mass Index) 38.4 kg/m2 Melonie Lanza LPN [facility] Internal Medicine Work Phone: 08-28-2013 14:44-0400 Body Temperature 98 [degF] Melonie Lanza LPN [facility] Internal Medicine Work Phone: Comment on above: Method: Oral 08-28-2013 14:44-0400 Body weight 86.24 kg Melonie Lanza LPN [facility] Internal Medicine Work Phone: 08-28-2013 14:44-0400 BP Diastolic 86 mm[Hg] Melonie Lanza LPN [facility] Internal Medicine Work Phone: Comment on above: Patient Position: Sitting; Cuff Location : Left Arm; Cuff Size: Standard 08-28-2013 14:44-0400 BP Systolic 144 mm[Hg] Melonie Lanza LPN [facility] Internal Medicine Work Phone: Comment on above: Patient Position: Sitting; Cuff Location : Left Arm; Cuff Size: Standard 08-28-2013 14:44-0400 BSA (Body Surface Area) 1.8 m2 Melonie Lanza LPN [facility] Internal Medicine Work Phone: 08-28-2013 14:44-0400 Height 149.86 cm Melonie Lanza LPN [facility] Internal Medicine Work Phone: 08-28-2013 14:44-0400 Pulse (Heart Rate) 90 /min Melonie Lanza LPN [facility] Internal Medicine Work Phone: Comment on above: Pattern: Regular 08-28-2013 14:44-0400 Respiratory Rate 16 /min Melonie Lanza LPN [facility] Internal Medicine Work Phone: 08-28-2013 14:44-0400 Weight 86.24 kg Marcia Walker [facility] Internal Medicine Work Phone: 08-15-2013 11:28-0400 BMI (Body Mass Index) 38.4 kg/m2 Melonie Lanza LPN [facility] Work Phone: 08-15-2013 11:28-0400 Body Temperature 98.8 [degF] Melonie Lanza LPN [facility] Internal Medicine Work Phone: Comment on [...] (Heart Rate) 82 /min Melonie Lanza LPN [facility] Internal Medicine Work Phone: Comment on above: Pattern: Regular 08-15-2013 11:28-0400 Pulse Oximetry 96 % Marcia Walker [facility] Internal Medicine Work Phone: Comment on above: Room air 08-15-2013 11:28-0400 Respiratory Rate 17 /min Melonie Lanza LPN [facility] Internal Medicine Work Phone: 08-15-2013 11:28-0400 SaO2% (BldA) [Mass fraction] 96 % Melonie Lanza LPN [facility] Internal Medicine Work Phone: Comment on above: Room air 08-15-2013 11:28-0400 Weight 86.24 kg Marcia Walker [facility] Internal Medicine Work Phone: 08-07-2013 10:47-0400 BMI (Body Mass Index) 38.4 kg/m2 Melonie Lanza LPN [facility] Internal Medicine Work Phone: 08-07-2013 10:47-0400 Body Temperature 98 [degF] Melonie Lanza LPN [facility] Internal Medicine Work Phone: Comment on above: Method: Oral 08-07-2013 10:47-0400 Body weight 86.24 kg Melonie Lanza LPN [facility] Internal Medicine Work Phone: 08-07-2013 10:47-0400 BP Diastolic 82 mm[Hg] Melonie Lanza LPN [facility] Internal Medicine Work Phone: Comment on above: Patient Position: Sitting; Cuff Location : Left Arm; Cuff Size: Standard 08-07-2013 10:47-0400 BP Systolic 142 mm[Hg] Melonie Lanza LPN [facility] Internal Medicine Work Phone: Comment on above: Patient Position: Sitting; Cuff Location : Left Arm; Cuff Size: Standard 08-07-2013 10:47-0400 BSA (Body Surface Area) 1.8 m2 Melonie Lanza LPN [facility] Internal Medicine Work Phone: 08-07-2013 10:47-0400 Height 149.86 cm Melonie Lanza LPN [facility] Internal Medicine Work Phone: 08-07-2013 10:47-0400 Pulse (Heart Rate) 74 /min Melonie Lanza LPN [facility] Internal Medicine Work Phone: Comment on above: Pattern: Regular 08-07-2013 10:47-0400 Pulse Oximetry 96 % Marcia Walker [facility] Internal Medicine Work Phone: Comment on above: Room air 08-07-2013 10:47-0400 Respiratory Rate 18 /min Melonie Lanza LPN [facility] Internal Medicine Work Phone: 08-07-2013 10:47-0400 SaO2% (BldA) [Mass fraction] 96 % Melonie Lanza LPN [facility] Internal Medicine Work Phone: Comment on [...] 03-06-2013 13:53-0400 Weight 84.88 kg Marcia Walker [facility] Internal Medicine Work Phone: 03-07-2012 11:15-0400 BMI (Body Mass Index) 36.05 kg/m2 Safia Sosa RN [facility] Internal Medicine Work Phone: 03-07-2012 11:15-0400 [...] 14:31-0400 Pulse (Heart Rate) 82 /min Melonie Lanza LPN [facility] Work Phone: Comment on above: Pattern: Regular 04-29-2010 14:31-0400 Respiratory Rate 16 /min Melonie Lanza GENERAL INSPECTOR [facility] Work Phone: Comment on [...] Work Phone: 10-18-2009 10:17-0500 Height 157.48 cm Veronique Childers RN [facility] [...] 05-31-2025 Emergency department patient visit Karen Alcazar COLD MILL OPERATOR-C Work Phone: -Emergency Department Work Phone: Start: 01-04-2025 End: 01-04-2025 ambulatory Karen Alcazar Facility:[facility] Start: 11-01-2024 End: 11-01-2024 Telephone encounter Celena Kaba APRN.WATER FITNESS INSTRUCTOR Work Phone: Hematology/Oncology Start: 10-31-2024 End: 10-31-2024 ambulatory Karen Alcazar Facility:[facility] Start: 10-09-2024 ambulatory Kelvin Ayala Facility:[facility] Start: 10-09-2024 End: 10-09-2024 ambulatory Karen Ottoniel Facility:[facility] Start: 09-25-2024 End: 09-25-2024 Emergency department patient visit Lyle Guerrero Facility:[facility] Start: 09-25-2024 End: 09-25-2024 ambulatory Karen Ottoniel Facility:[facility] Start: 08-01-2024 End: 08-01-2024 ambulatory Karen Ottoniel Facility:[facility] Start: 07-20-2023 End: 07-29-2023 Office outpatient visit 25 minutes Karen Alcazar WATER FITNESS INSTRUCTOR Work Phone: [facility] Start: 07-05-2023 End: 07-05-2023 ambulatory [facility] Work Phone: Start: 07-05-2023 End: 07-05-2023 Patient encounter procedure [facility]Outpatient Breast Imaging Work Phone: Start: 06-21-2023 End: 06-21-2023 Karen Alcazar WATER FITNESS INSTRUCTOR Work Phone: [facility] Start: 01-19-2023 [...] 09-22-2022 Office outpatient visit 15 minutes Karen Alcazar [...] Start: 05-19-2022 End: 05-19-2022 Patient encounter procedure [facility]Out[facility] Breast [facility] Start: 02-27-2022 End: 02-27-2022 Office outpatient visit 15 minutes Marcia Walker Work Phone: [facility] Start: 11-18-2021 End: 11-18-2021 Office outpatient visit 25 minutes Marcia Walker CNP Work Phone: [facility] Start: 08-13-2021 End: 08-13-2021 Office outpatient visit 25 minutes Marcia Walker CNP Work Phone: [facility] Start: 03-28-2021 End: 03-28-2021 Annotation/Addendum Marcia Ciesa WATER FITNESS INSTRUCTOR Work Phone: [facility] Start: 03-28-2021 End: 03-28-2021 Karen Alcazar WATER FITNESS INSTRUCTOR Work Phone: [facility] Start: 03-19-2021 End: 03-19-2021 Office outpatient visit 25 minutes Marcia Walker WATER FITNESS INSTRUCTOR Work Phone: [facility] Start: 03-19-2021 Review Marcia Walker WATER FITNESS INSTRUCTOR Work Phone: [facility] Start: 03-13-2021 End: 03-13-2021 Lab Order Marcia Walker [facility] Start: 03-13-2021 End: 03-13-2021 Karen Alczaar WATER FITNESS INSTRUCTOR Work Phone: [facility] Start: 03-10-2021 Review Marcia Morin [facility] Start: 03-10-2021 End: 03-10-2021 Phone Encounter Marcia Walker [facility] Start: 03-10-2021 End: 03-10-2021 Karen Alcazar WATER FITNESS INSTRUCTOR Work Phone: [facility] Start: 02-24-2021 End: 02-24-2021 Office outpatient visit 15 minutes Marcia Walker [facility] Start: 09-30-2020 End: 09-30-2020 Annotation/Addendum Marcia Walker [facility] Start: 09-30-2020 End: 09-30-2020 Karen Alcazar WATER FITNESS INSTRUCTOR Work Phone: [facility] Start: 08-09-2020 End: 08-09-2020 Annotation/Addendum Marcia Walker [facility] Start: 08-09-2020 End: 08-09-2020 Karen Alcazar WATER FITNESS INSTRUCTOR Work Phone: [facility] Start: 06-11-2020 End: 06-11-2020 Annotation/Addendum Marcia Walker [facility] Start: 06-11-2020 Review Marcia Morin [...] 08-18-2019 End: 08-18-2019 Annotation/Addendum Marcia Walker [facility] Start: 08-18-2019 End: 08-18-2019 Karen Alcazar CNP Work Phone: [facility] Start: 04-03-2019 End: 04-03-2019 Office outpatient visit 15 minutes Marcia Walker [facility] Start: 03-14-2019 End: 03-14-2019 Annotation/Addendum Marcia Walker [facility] Start: 03-14-2019 End: 03-14-2019 Karen Alcazar CNP Work Phone: [facility] Start: 03-13-2019 End: 03-13-2019 Office outpatient visit 15 minutes Marcia Walker [facility] Start: 03-13-2019 Review Marcia Aaron Comprehens [facility] Start: 01-19-2019 End: 01-19-2019 Office outpatient visit 25 minutes Marcia Walker [facility] Start: 10-05-2018 End: 10-05-2018 Office outpatient visit 25 minutes Marcia Meiera [facility] Start: 09-16-2018 End: 09-16-2018 Annotation/Addendum Marcia Meiera [facility] Start: 09-16-2018 End: 09-16-2018 Karen Alcazar CNP Work Phone: [facility] Start: 09-01-2018 End: 09-01-2018 Annotation/Addendum Marcia Reneaa [facility] Start: 09-01-2018 End: 09-01-2018 Karen Alcazar CNP Work Phone: [facility] Start: 06-27-2018 End: 06-27-2018 Office outpatient visit 15 minutes Marcia Walker [facility] Start: 06-14-2018 End: 06-14-2018 Office outpatient visit 25 minutes Marcia Walker [facility] Start: 04-20-2018 End: 04-20-2018 Lab Order Marcia Walker [facility] Start: 04-20-2018 End: 04-20-2018 Karen Alcazar CNP Work Phone: [facility] Start: 03-25-2018 End: 03-25-2018 Phone Encounter Marcia Walker [facility] Start: 03-25-2018 End: 03-25-2018 Karen Alcazar WATER FITNESS INSTRUCTOR Work Phone: [facility] Start: 03-15-2018 End: 03-15-2018 Phone Encounter Marcia Walker [facility] Start: 03-15-2018 End: 03-15-2018 Karen Alcazar CNP Work Phone: [facility] Start: 03-15-2018 End: 03-15-2018 Office outpatient visit 25 minutes Marcia Reneatarsha [facility] Start: 12-06-2017 End: 12-06-2017 Office outpatient visit 25 minutes Marcia Meiertarsha [facility] Start: 11-30-2017 End: 11-30-2017 Office outpatient visit 15 minutes Marcia Meiertarsha [facility] Start: 10-04-2017 End: 10-04-2017 Annotation/Addendum Marcia Walker [facility] Start: 10-04-2017 End: 10-04-2017 Karen Alcazar CNP Work Phone: [facility] Start: 09-20-2017 [facility] Facility :[facility] Start: 08-10-2017 End: 08-10-2017 Office outpatient [...] End: 10-13-2016 Patient encounter Marcia Walker [facility] Start: 10-13-2016 End: 10-13-2016 Karen Alcazar CNP Work Phone: [facility] Start: 10-13-2016 End: 10-13-2016 Office outpatient visit 25 minutes Marcia Walker [facility] Start: 09-30-2016 End: 09-30-2016 Annotation/Addendum Marcia Walker [facility] Start: 09-30-2016 End: 09-30-2016 Karen Alcazar CNP Work Phone: [facility] Start: 09-30-2016 End: 09-30-2016 Office outpatient visit 25 minutes Marcia Walker [facility] Start: 09-11-2013 End: 09-11-2013 Lab Order Marcia Walker [facility] Start: 09-11-2013 End: 09-11-2013 Karen [...] End: 03-06-2013 Patient encounter Marcia Walker [facility] Start: 03-06-2013 End: 03-06-2013 Karen Alcazar CNP Work Phone: [facility] Start: 03-07-2012 End: 03-07-2012 Patient encounter Marcia Walker [facility] Start: 03-07-2012 End: 03-07-2012 Karen Alcazar CNP Work Phone: [facility] Start: 04-29-2010 End: 04-29-2010 Office outpatient visit 15 minutes Marcia Walker [facility] Start: 10-18-2009 End: 10-18-2009 Office outpatient new 30 minutes Marcia Walker [facility] Patient encounter procedure Federica Olivarez CMA [facility]; [facility] Work Phone: Patient encounter procedure Haseeb Brizuela GENERAL INSPECTOR [facility]; [facility] Work Phone: Patient encounter procedure Latrice Cam GENERAL INSPECTOR [facility]; [facility] Work Phone: Patient encounter procedure Haseeb Sherwood GENERAL INSPECTOR [facility] Work Phone: Patient encounter procedure Haseeb Brizuela GENERAL INSPECTOR [facility]; [facility] Work Phone: Patient encounter procedure Ry Serna [facility] [facility] Work Phone: Patient encounter procedure Latrice Levy GENERAL INSPECTOR [facility] Work Phone: Patient encounter procedure Nellie Knox GENERAL INSPECTOR [facility]; [facility] Work Phone: Patient encounter procedure Latricetarsha Levy GENERAL INSPECTOR [facility]; [facility] Work Phone: Patient encounter procedure Karen Alcazar CNP Work Phone: [facility] Work Phone: Patient encounter procedure Flavia Coleman MA [facility] Work Phone: Procedures Date Procedure Procedure Detail Performing Clinician Start: 05-31-2025 Plain X-ray of shoulder Karen Alcazar COLD MILL OPERATOR-C Work Phone: Start: 05-31-2025 CT cervical spine without contrast Karen Alcazar COLD MILL OPERATOR-C Work Phone: Start: 05-31-2025 CT of face Karen wong COLD MILL OPERATOR-C Work Phone: Start: 05-31-2025 CT of head without contrast Karen Alcazar COLD MILL OPERATOR-C Work Phone: Start: 07-05-2023 Screening mammography Start: 07-05-2023 End: 07-05-2023 Procedure Note: See Note; NOTES: [facility] Imaging Services [address] [place] [address] SCRN MAMM (CAD)W/SHELIA BILAT MR#: [id number] Acct: [id number] Name: KAREN VILLALOBOS Rep #: [id number] : 1945 F 78 From: Fernando shaw MD PCP: ADRIANO Burgess Status: [facility] Study: SCRN MAMM (CAD)W/SHELIA BILAT Date of Exam: 06/20 Exam# [id number] Ordering Dr: Karen Alcazar COLD MILL OPERATOR-C MAMMOGRAPHY - BILATERAL SCREENING REASON FOR [...] delay biopsy of a clinically suspicious abnormality. [id number] Electronically Signed: Fernando Ford MD at 13:14 EDT , CC: COLD MILL OPERATOROmega Alcazar Intensivist: Signed Karen Alcazar WATER FITNESS INSTRUCTOR Work Phone: Start: 05-19-2022 End: 05-22-2022 SCRN MAMM (CAD)W/SHELIA BILAT Comments: See Note; NOTES: [facility] Imaging Services [address] [place] [address] SCRN MAMM (CAD)W/SHELIA BILAT MR#: [id number] Acct: [id number] Name: KAREN VILLALOBOS Rep #: [id number] : 1945 F 76 From: Hamilton Rice DO PCP: ADRIANO Moralez Status: [facility] Study: SCRN MAMM (CAD)W/SHELIA BILAT Date of Exam: 04/30 12/20 Exam# [id number] Ordering Dr: Marcia Walker NP COLD MILL OPERATOR-C MAMMOGRAPHY - BILATERAL SCREENING REASON FOR [...] delay biopsy of a clinically suspicious abnormality. [id number] Electronically Signed: Hamilton Rice, at 9:11 EDT Reading Location ID and State: [facility] Tel , Service support , CC: ADRIANO Walker Intensivist: Signed Marcia Walker Work Phone: Start: 04-11-2021 End: 04-11-2021 SCRN MAMM (CAD)W/SHELIA BILAT Comments: See Note; NOTES: [facility] Imaging Services [address] [place] [address] SCRN MAMM (CAD)W/SHELIA BILAT MR#: [id number] Acct: [id number] Name: KAREN VILLALOBOS Rep #: [id number] : 1945 F 75 From: Fernando shaw MD PCP: ADRIANO Moralez Status: [facility] Study: SCRN MAMM (CAD)W/SHELIA BILAT Date of Exam: 03/29 03/19 Exam# [id number] Ordering Dr: Marcia Walker NP COLD MILL OPERATOR-C MAMMOGRAPHY - BILATERAL SCREENING REASON FOR [...] delay biopsy of a clinically suspicious abnormality. [id number] Electronically Signed: Fernando Ford MD at 12:41 EDT , Service support , CC: ADRIANO Walker Intensivist: Signed Marcia Walker [facility] Work Phone: Start: 03-20-2021 End: 03-21-2021 Sinus/Facial Bone Comments: See Note; NOTES: [facility] Imaging Services [address] [place] [address] Sinus/Facial Bone MR#: [id number] Acct: [id number] Name: KAREN VILLALOBOS Rep #: [id number] : 1945 F 75 From: Toni Bond MD PCP: ADRIANO Moralez Status: REG CLI Study: Sinus/Facial Bone Date of Exam: 03/20/21 Exam# [id number] Ordering Dr: Arelis Chiu DO STUDY: CT [...] CC: ADRIANO Walker; Dr. Arelis Chiu DO Intensivist: Signed Arelis Chiu DO Work Phone: Start: 08-30-2019 End: 08-30-2019 SCREEN MAMM (CAD) W/SHELIA BILAT Comments: See Note; NOTES: [facility] Imaging Services [address] [place] [address] SCREEN MAMM (CAD) W/SHELIA BILAT MR#: [id number] Acct: [id number] Name: KAREN VILLALOBOS Rep #: [id number] : 1945 F 74 From: Fernando Ford MD PCP: Renata Mei DO Status: [facility] Study: SCREEN MAMM (CAD) W/SHELIA BILAT Date of Exam: 08/30/19 Exam# [id number] Ordering Dr: Marcia Walker COLD MILL OPERATOROmega MAMMOGRAPHY - BILATERAL SCREENING REASON FOR [...] delay biopsy of a clinically suspicious abnormality. [id number] Electronically Signed: Fernando Liliana, at 14:52 EDT , Service support , CC: COLD MILL OPERATOR-Dinorah Walker; Renata Mei DO Intensivist: Signed Marcia Walker Work Phone: Start: 05-09-2019 End: 05-09-2019 12 lead ECG Comments: See Note; NOTES: [facility] Cardiovascular Services [address] [place] [address] 12 Lead EKG 05/05/19 0048 MR#: [id number] Acct: [id number] Name: KAREN VILLALOBOS Rep #: [id number] : 1945 73 From: Paul Cruz MD Attending Dr: Status: DEP ER [...] Abnormal ECG Confirmed by SHARATH CLEMONS, PAUL ([id number]), editorial intern QUEENIE GUERRA ([id number]) on 05/09/2019 8:45:38 AM Referred By: EFRAIN Confirmed By:PAUL CRUZ MD 05/09/19 0845 Date Paul Cruz MD CC: Huang Escudero MD; Renata Mei DO Signed Marcia Walker Start: 05-05-2019 End: 05-05-2019 Emergency Department Summary Comments: See Note; NOTES: [facility] Medical Records Department [address] [place] [address] Emergency Department Summary 05/05/19 0023 MR#: [id number] Acct: [id number] Name: KAREN VILLALOBOS Rep #: [id number] : 1945 73 From: Huang Escudero MD [...] your Primary Care Provider. Call [facility] ([phone]) or report to the closest Emergency Room. Call 911 if necessary. 05/05/19 0107 <Electronically signed by Huang Escudero MD> Date Huang Escudero MD Cosigner Signature (If Indicated): Date CC: Renata Mei DO Marcia Walker Start: 04-18-2019 End: 04-18-2019 Discharge Instruction Comments: See Note; NOTES: [facility] Medical Records Department [address] [place] [address] Instructions for Home/Discharge Instructions 04/18/19 1318 MR#: [id number] Acct: [id number] Name: KAREN VILLALOBOS Rep #: [id number] : 1945 73 From: Renetta Najera MD PCP: Renata Mei DO Status: REG [facility] Discharge Diet: No Restrictions - Increase water [...] HCl ER] 500 mg PO BID 10/03/18 Irons-3 Fatty Acids [Fish Oil] 500 mg PO [...] 04-18-2019 Operative Report Comments: See Note; NOTES: [facility] Medical Records Department [address] [place] [address] Operative Report 04/18/19 1313 MR#: [id number] Acct: [id number] Name: KAREN VILLALOBOS Rep #: [id number] : 1945 73 From: Renetta Najera MD PCP: Renata Mei DO Status: REG [facility]C Y Location: [place] [address] Problem List (1) Endometrial thickening on ultrasound [...] and Physical Exam Comments: See Note; NOTES: [facility] Medical Records Department [address] [place] [address] History and Physical 04/10/191953 MR#: [id number] Acct: [id number] Name: KAREN VILLALOBOS Rep #: [id number] : 1945 73 From: Renetta Najera MD PCP: Renata Mei DO Status: REG [facility] Y Location: [place] [address] ADDENDUM by Renetta Najera MD on 04/18/19 [...] Cosign Signature: Date (if applicable) CC: Renetta Naejra MD; Renata Mei DO Signed Marcia Walker Start: 04-10-2019 End: 04-10-2019 History and Physical Exam Comments: See Note; NOTES: [facility] Medical Records Department [address] [place] [address] History and Physical 04/10/191953 MR#: [id number] Acct: [id number] Name: KAREN VILLALOBOS Rep #: [id number] : 1945 73 From: Renetta Najera MD PCP: Renata Mei DO Status: PRE [facility] Y Location: [facility] Problem List (1) Endometrial thickening on ultrasound [...] 12 lead ECG Comments: See Note; NOTES: [facility] Cardiovascular Services [address] [place] [address] 12 Lead EKG 03/07/19 1606 MR#: [id number] Acct: [id number] Name: KAREN VILLALOBOS Rep #: [id number] : 1945 73 From: Papa Gamble MD Attending Dr: Renetta Najera MD Status: PRE SDC Ordering Dr: Renetta Najera MD Date: 03/07/19 Location: [facility] Sex: F C Admitted: Test Reason : [...] Abnormal ECG Confirmed by MAVIS CLEMONS, PAPA ([id number]), editorial intern QUEENIE GUERRA ([id number]) on 03/08/2019 1:22:42 PM [...] Cells: SURGERYTime: 0800SURGICAL PROCEDURE: HS D AND [facility] [address] [place], [address] Start: 12-12-2018 End: 12-12-2018 Operative Report Comments: See Note; NOTES: [facility] Medical Records Department [address] [place] [address] Operative Report 12/05/18 1325 MR#: [id number] Acct: [id number] Name: KAREN VILLALOBOS Rep #: [id number] : 1945 73 From: Zee Rivas MD PCP: Renata Mei DO Status: [facility] Y Location: [facility] Report of Operation Date of Procedure: 12/05/18 Pre-Operative Diagnosis: right breast cancer Post-Operative Diagnosis: same Surgery/Procedure Performed:: right axillary sentinel lymph node biopsy via blue and radioactive dye Description of Surgical Findings:: sentinel lymph node biopsy - 5 out of 5 lymph nodes negative for metastatic disease software test analyst: NOT,DEFINED Type of Anesthesia:: General Anesthesiologist: Mandy [...] 12-05-2018 Discharge Instruction Comments: See Note; NOTES: [facility] Medical Records Department [address] [place] [address] Instructions for Home/Discharge Instructions 12/05/18 1206 MR#: [id number] Acct: [id number] Name: KAREN VILLALOBOS Rep #: [id number] : 1945 73 From: Zee Rivas MD PCP: Renata Mei DO Status: REG [facility] Discharge Diet: No Restrictions Discharge Activity: Return [...] HCl ER] 500 mg PO BID 10/03/18 Irons-3 Fatty Acids [Fish Oil] 500 mg PO DAILY 10/03/18 Hydrocodone Bitart/Apap 5-325 [[place] 5MG-325MG] 1 tab PO Q8H PRN PRN 3 Days #10 tab 12/05/18 The following prescriptions were given: Hydrocodone Bitart/Apap 5-325 [[place] 5MG-325MG] 1 tab PO Q8H PRN PRN 3 Days #10 tab PRN Reason: Pain Primary Care Physician: Renata Mei DO [Primary Care Provider] - Please Follow Up With: Zee Rivas MD - call When: to be seen in 7-10 days, please call for date and time, thank you 12/05/18 1814 <Electronically signed by Zee Rivas MD> Date Zee Rivas MD CC: Renata Mei DO Signed Marcia Walker Start: 12-05-2018 End: 12-05-2018 Lymph Node Injection Only Comments: See Note; NOTES: [facility] Imaging Services [address] [place] [address] Lymph Node Injection Only MR#: [id number] Acct: [id number] Name: KAREN VILLALOBOS Rep #: [id number] : 1945 F 73 From: Fernando Ford MD PCP: Renata Mei DO Status: [facility] Study: Lymph Node Injection Only Date of Exam: 12/05/18 Exam# [id number] Ordering Dr: Zee Rivas MD PROCEDURE: NUCLEAR MEDICINE Injection Brule Node - RIGHT breast(s). REASON FOR EXAM: Female, 73 years old. Right breast cancer. TECHNIQUE: Brule node localization using radionuclide methods of the [...] Fernando Ford MD at 12:54 EST Tel [phone], Service support , CC: Renata Mei DO; Zee Rivas MD Intensivist: Signed eZe Rivas Work Phone: Start: 10-13-2018 End: 10-13-2018 Operative Report Comments: See Note; NOTES: [facility] Medical Records Department [address] [place] [address] Operative Report 10/11/18 1037 MR#: [id number] Acct: [id number] Name: KAREN VILLALOBOS Rep #: [id number] : 1945 73 From: Zee Rivas MD PCP: Renata Mei DO Status: [facility] Y Location: [facility] Report of Operation Date of Procedure: 10/10/18 [...] dissection was done to ensure clear margins software test analyst: Walt Jeter software test analyst: JOHNIE,MARGUERITE Sherwood medical student Type of Anesthesia:: General Anesthesiologist: Elsi Stark Specimen's removed: left breast sentinel lymph ykle tissue, left breast lumpectomy tissue, right breast lumpectomy tissue Drains: none Estimated Blood Loss (mL): 30 ml Fluids Replaced: see anesthesia note Description of Procedure: After informed consent was given, the patient was brought into the Breast Stereotactic Radiology suite. Appropriate time out protocol was followed. She was then placed in the prone position on the Ronda stereotactic table. The patient s left breast was placed in the opening at the head of the table. A painter structural steel compression mammogram was then obtained in the [...] at the proper coordinates of depth. A painter structural steel film was obtained which revealed the wire in proper position. The wire was then secured to the patient's skin. The right breast was then addressed next. The patient s right breast was placed in the opening at the head of the table. A painter structural steel compression mammogram was then obtained. The marker [...] at the proper coordinates of depth. A painter structural steel film was obtained which revealed the wire [...] 10-10-2018 Discharge Instruction Comments: See Note; NOTES: [facility] Medical Records Department [address] [place] [address] Instructions for Home/Discharge Instructions 10/10/18 1239 MR#: [id number] Acct: [id number] Name: KAREN VILLALOBOS Rep #: [id number] : 1945 73 From: Zee Rivas MD PCP: Renata Mei DO Status: REG [facility] Discharge Diet: No Restrictions Discharge Activity: Return [...] HCl ER] 500 mg PO BID 10/03/18 Irons-3 Fatty Acids [Fish Oil] 500 mg PO [...] October 08 at 10:00, thank you 10/10/18 2520 <Electronically signed by Zee Rivas MD> Date Zee Rivas MD CC: Renata Mei DO Marcia Walker Start: 10-10-2018 End: 10-10-2018 Breast Biopsy Specimen Comments: See Note; NOTES: [facility] Imaging Services [address] [place] [address] Breast Biopsy Specimen MR#: [id number] Acct: [id number] Name: KAREN VILLALOBOS Rep #: [id number] : 1945 F 73 From: Fernando Ford MD PCP: Renata Mei DO Status: [facility] Study: Breast Biopsy Specimen Date of Exam: 10/10/18 Exam# [id number] Ordering Dr: Zee Rivas MD SURGICAL BREAST SPECIMEN RADIOGRAPH CLINICAL: Document presence of mass in biopsy specimen. FINDINGS: Specimen shows presence of mass. Electronically Signed: Fernando Ford MD at 15:46 EST Tel [phone], Service support , BI/Breast Biopsy Specimen CC: Renata Mei DO; Zee Rivas MD Intensivist: Signed Zee Rivas Work Phone: Start: 10-10-2018 End: 10-10-2018 Breast Biopsy Specimen Comments: See Note; NOTES: [facility] Imaging Services [address] [place] [address] Breast Biopsy Specimen MR#: [id number] Acct: [id number] Name: KAREN VILLALOBOS Rep #: [id number] : 1945 F 73 From: Fernando Ford MD PCP: Renata Mei DO Status: [facility] Study: Breast Biopsy Specimen Date of Exam: 10/10/18 Exam# [id number] Ordering Dr: Zee Rivas MD SURGICAL BREAST SPECIMEN RADIOGRAPH CLINICAL: Document presence of mass in biopsy specimen. FINDINGS: Specimen shows presence of mass. Electronically Signed: Fernando Ford MD at 16:00 EST Tel [phone], Service support , BI/Breast Biopsy Specimen CC: Renata Mei DO; Zee Rivas MD Intensivist: Signed Zee Rivas Work Phone: Start: 10-10-2018 End: 10-10-2018 Lymph Node Injection Only Comments: See Note; NOTES: [facility] Imaging Services [address] [facility] [address] Lymph Node Injection Only MR#: [id number] Acct: [id number] Name: KAREN VILLALOBOS Rep #: [id number] : 1945 F 73 From: Fernando Ford MD PCP: Renata Mei DO Status: [facility] Study: Lymph Node Injection Only Date of Exam: 10/10/18 Exam# [id number] Ordering Dr: Zee Rivas MD PROCEDURE: NUCLEAR MEDICINE Injection Brule Node - LEFT breast(s). REASON FOR EXAM: Female, 73 years old. Left breast cancer. TECHNIQUE: Brule node localization using radionuclide methods of the [...] Fernando Ford MD at 10:36 EST Tel [phone], Service support , CC: Renata Mei DO; Zee Rivas MD Intensivist: Signed Zee Rivas Work Phone: Start: 08-30-2018 End: 09-01-2018 Breast Limited Unilateral Comments: See Note; NOTES: [facility] Imaging Services [address] [place] [address] Breast Limited Unilateral MR#: [id number] Acct: [id number] Name: KAREN VILLALOBOS Rep #: [id number] : 1945 F 73 From: Fernando Ford MD PCP: Renata Mei DO Status: [facility] Study: Breast Limited Unilateral Date of Exam: 08/30/18 Exam# [id number] Ordering Dr: Renata Mei DO STUDY: ULTRASOUND [...] Fernando Ford MD at 14:09 EDT Tel [phone], Service support , STUDY: ULTRASOUND BREAST - [...] Fernando Ford MD at 14:10 EDT Tel [phone], Service support , CC: Renata Mei DO Intensivist: Signed Renata Mei Work Phone: Start: 08-23-2018 End: 08-23-2018 SCREENING MAMM (CAD), BILAT Comments: See Note; NOTES: [facility] Imaging Services [address] [place] [address] SCREENING MAMM (CAD), BILAT MR#: [id number] Acct: [id number] Name: KAREN VILLALOBOS Rep #: [id number] : 1945 F 73 From: Fernando Ford MD PCP: Renata Mei DO Status: [facility] Study: SCREENING MAMM (CAD), BILAT Date of Exam: 08/23/18 Exam# [id number] Ordering Dr: Renetta Najera MD MAMMOGRAPHY - BILATERAL SCREENING REASON FOR EXAM: Female, 73 years old. Routine annual screening examination. PERTINENT HISTORY: Sister with breast cancer. Aunt with breast cancer. TECHNIQUE: Digital bilateral breast hselia (3D mammographic acquisition) in the CC and [...] delay biopsy of a clinically suspicious abnormality. [id number] Electronically Signed: Fernando Ford MD at 11:32 EDT Tel [phone], Service support , CC: Renetta Najera MD; Renata Mei DO Intensivist: Signed Marcia Walker Start: 02-22-2017 End: 02-22-2017 SCREENING MAMM (CAD), BILAT Comments: See Note; NOTES: [facility] Imaging Services [address] [place] [address] Verdana 4d SCREENING MAMM (CAD), BILAT MR#: [id number] Acct: [id number] Name: KAREN VILLALOBOS Rep #: [id number] : 1945 F 71 From: Fernando Ford MD PCP: Renata Mei DO Status: [facility] Study: SCREENING MAMM (CAD), BILAT Date of Exam: 02/22/17 Exam# [id number] Ordering Dr: Renetta Najera MD MAMMOGRAPHY - [...] delay biopsy of a clinically suspicious abnormality. [id number] Electronically Signed: Fernando Ford MD at 14:49 EDT Tel [phone], Service support [phone], CC: Renetta Najera MD; Renata Mei DO Intensivist: Signed Marcia Walker Start: 03-22-2015 End: 10-01-2016 Bilat Scrn Digital AND CAD Comments: See Note; NOTES: [facility] Imaging Services [address] [place] [address] Breast Imaging Report MR#: [id number] Acct: [id number] Name: KAREN VILLALOBOS Rep #: [id number] : 1945 F 69 From: Fernando Ford MD PCP: Renata Mei DO Status: [facility] CLI Study: Bilat Scrn Digital AND CAD Date of Exam: 03/22/15 Exam# [id number] Ordering Dr: Renetta Najera MD MAMMOGRAPHY - [...] Fernando Ford MD at 14:56 EDT Tel [phone], Service support [phone], CC: Renetta Najera MD; eRnata Mei DO Intensivist: Signed Marcia Walker H/O: section Section Silvestre Olivarez WARE FINISHER Comment on above: 1977 H/O: section Section Bernardo Brizuela LPN Comment on above: 1977 H/O: section Section An yakov Levy LPN Comment on above: 1977 H/O: section Section Bernardo Sherwood LPN Comment on above: 1977 H/O: section Section Mo eze Brizuela LPN Comment on above: 1977 H/O: section Section Rubio Serna [facility] Comment on above: 1977 H/O: section Section An yakov Cam [place]TON Comment on above: 1977 H/O: section Section Robert Knox LPN Comment on above: 1977 H/O: section Latrice Levy LPN H/O: section Alexandra Alcazar [facility] Work Phone: H/O: section Flavia Coleman MA H/O: surgery Tonsillectomy Federica gutierrez WARE FINISHER H/O: surgery Tonsillectomy Haseeb Brizuela L PN H/O: surgery Tonsillectomy Latrice Slarb L PN H/O: surgery Tonsillectomy Haseeb Sherwood L PN H/O: surgery Tonsillectomy Haseeb Brizuela L PN H/O: surgery Tonsillectomy Ry Serna WARE FINISHER H/O: surgery Tonsillectomy Latrice Slarb L PN H/O: surgery Tonsillectomy Nellie Knox GENERAL INSPECTOR H/O: surgery Latrice Slarb LP N H/O: surgery Karen Alcazar WATER FITNESS INSTRUCTOR Work Phone: H/O: surgery Flavia Coleman MA Plan of Treatment Date Care Activity Detail Author Start: 05-31-2025 [facility] Start: 07-30-2024 Covid-19 Vaccine () Covid-19 Vaccine () [facility] Start: 07-30-2024 Influenza vaccination Influenza Vaccine (#1) [facility] Start: 11-29-2023 Advance Directive Discussion Advance Directive Discussion [facility] Start: 07-20-2023 Assay of thyroid stimulating hormone tsh [facility]; [facility] Work Phone: Start: 07-20-2023 Procedure Education [facility]; [facility] Work Phone: Start: 07-20-2023 Provider Instructions for Treatment [facility]; [facility] Work Phone: Start: 07-20-2023 Lipid panel [facility]; [facility] Work Phone: Start: 07-20-2023 Blood count complete auto&auto difrntl wbc [facility]; [facility] Work Phone: Start: 07-20-2023 Creatinine other source [facility]; [facility] Work Phone: Start: 07-20-2023 Comprehensive metabolic panel [facility]; [facility] Work Phone: Start: 02-02-2023 Patient Education [facility]; [facility] Work Phone: Start: 02-02-2023 Provider Instructions for Treatment [facility]; [facility] Work Phone: Start: 01-19-2023 Hemoglobin glycosylated a1c [facility]; [facility] Work Phone: Start: 01-19-2023 Procedure Education [facility]; [facility] Work Phone: Start: 01-19-2023 Provider Instructions for Treatment [facility]; [facility] Work Phone: Start: 01-05-2023 CBC, PLATELETS & MANUAL DIFF (10178) [facility]; [facility] Work [...] Work Phone: Start: 01-05-2023 Lipid panel [facility]; [facility] Work Phone: Start: 09-22-2022 Procedure Education [facility]; [facility] Work Phone: Start: 09-22-2022 Provider Instructions for Treatment [facility]; [facility] Work Phone: Start: 08-12-2022 Procedure Education [facility]; [facility] Work Phone: Start: 08-12-2022 Provider Instructions for Treatment [facility]; [facility] Work Phone: Start: 07-07-2022 Procedure Education [facility]; [facility] Work Phone: [...] next OV Start: 05-28-2022 Lipid panel [facility]; [facility] Work Phone: Comment on above: prior to next OV Start: 05-26-2022 Procedure Education [facility]; [facility] Work Phone: Start: 05-26-2022 Provider Instructions for Treatment [facility]; [facility] Work Phone: Start: 05-19-2022 MG Breast - bilateral Screening [facility] Work Phone: Start: 05-19-2022 Screening mammography SCRN MAMM (CAD)W/SHELIA BILAT [facility] Work Phone: Start: 02-27-2022 Procedure Education [facility]; [facility] Work Phone: Start: 02-27-2022 Provider Instructions for Treatment [facility]; [facility] Medicine Work Phone: Start: 11-18-2021 Procedure Education [facility]; [facility] Work Phone: Start: 11-18-2021 Provider Instructions for Treatment [facility]; [facility] Work Phone: Start: 11-18-2021 Hepatic function panel HEPATIC FUNCTION PANEL (35658) [facility]; [facility] Work Phone: Comment on above: January 2022 Start: 11-18-2021 Blood count complete automated CBC & PLATELETS (AUTO) (11801) [facility]; [facility] Work Phone: Comment on above: January 2022 Start: 08-13-2021 Procedure Education [facility]; [facility] Work Phone: Start: 08-13-2021 Provider Instructions for Treatment [facility]; [facility] Work Phone: Start: 03-31-2021 Blood count complete automated [facility]; [facility] Work Phone: Start: 03-19-2021 Procedure Education [facility]; [facility] Work Phone: Start: 03-19-2021 Provider Instructions for Treatment [facility]; [facility] Work Phone: Start: 03-19-2021 Hemoglobin glycosylated a1c HgA1C , Office ([id number]) [facility]; [facility] Work Phone: Start: 03-19-2021 Gluc bld gluc mntr dev cleared fda spec home use Blood Glucose , Office (34967) [facility]; [facility] Work Phone: Start: 03-13-2021 Assay of free thyroxine [facility]; [facility] Work Phone: Start: 03-13-2021 Free T4 [Mass/Vol] T4, FREE (THYROXINE) (41315) [facility]; [facility] Work Phone: Start: 03-13-2021 Assay of triiodothyronine t3 free [facility]; [facility] Work Phone: Start: 03-13-2021 Blood count complete auto&auto difrntl wbc [facility]; [facility] Work Phone: Start: 03-13-2021 Comprehensive metabolic panel [facility]; [facility] Work Phone: Start: 03-13-2021 Lipid panel LIPID PANEL ([id number]) [facility]; [facility] Work Phone: Start: 03-13-2021 Cobalamin (Vitamin B12) [Mass/Vol] VITAMIN B12 AND FOLATES (96609) [facility]; [facility] Work Phone: Start: 03-13-2021 25 hydroxy includes fractions if performed CALCIFEDIOL (01637) [facility]; [facility] Work Phone: Start: 03-13-2021 TSH Qn TSH (THYROID STIMULATING HORMONE) (00122) [facility]; [facility] Work Phone: Start: 02-24-2021 Procedure Education [facility]; [facility] Work Phone: Start: 08-09-2020 Iaadiadoo influenza [facility] Work Phone: Start: 2020 RSV Vaccine (1 - 1-dose 75+ series) RSV Vaccine (1 - 1-dose 75+ series) [facility] Start: 06-10-2020 Procedure Education [facility] Work Phone: Start: 06-10-2020 Provider Instructions for Treatment [facility] Work Phone: Start: 06-10-2020 Lipid panel [facility] Work Phone: Comment on above: Aug 12 Start: 06-10-2020 Cobalamin (Vitamin B12) [Mass/Vol] VITAMIN B12 AND FOLATES (71090) [facility] Work Phone: Start: 06-10-2020 25 hydroxy includes fractions if performed CALCIFEDIOL (79240) [facility] Work Phone: Start: 06-10-2020 HbA1c (Bld) [Mass fraction] HGB A1C (21789) [facility] Work Phone: Start: 05-14-2020 TSH Qn TSH (THYROID STIMULATING HORMONE) (11986) [facility] Work Phone: Start: 05-14-2020 Comprehensive metabolic panel Metabolic Panel, Comprehensive (16244) [facility] Work Phone: Start: 05-14-2020 Lipid panel LIPID PANEL (90198) [facility] Work Phone: Start: 02-23-2020 Procedure Education [facility] Work Phone: Start: 02-23-2020 Provider Instructions for Treatment [facility] Work Phone: Start: 02-21-2020 Procedure Education [facility] Work Phone: Start: 02-21-2020 Provider Instructions for Treatment [facility] Work Phone: Start: 02-16-2020 Procedure Education [facility] Work Phone: Start: 02-16-2020 Provider Instructions for Treatment [facility] Work Phone: Start: 02-05-2020 Assay of thyroid stimulating hormone tsh TSH (THYROID STIMULATING HORMONE) (00251) [facility] Work Phone: Start: 02-05-2020 TSH Qn TSH (THYROID STIMULATING HORMONE) (82731) [facility] Work Phone: Start: 12-14-2019 Patient Education [facility] Work Phone: Start: 12-14-2019 Procedure Education [facility] Work Phone: Start: 12-14-2019 Provider Instructions for Treatment [facility] Work Phone: Start: 11-06-2019 Procedure Education [facility] Work Phone: Start: 11-06-2019 Provider Instructions for Treatment [facility] Work Phone: Start: 10-31-2019 Lipid panel LIPID PANEL (69535) [facility] Work Phone: Start: 10-31-2019 Comprehensive metabolic panel Metabolic Panel, Comprehensive (88785) [facility] Work Phone: Start: 10-31-2019 Blood count complete auto&auto difrntl wbc CBC, Platelets & Auto Diff (86982) [facility] Work Phone: Start: 10-31-2019 TSH Qn TSH (74795) [facility] Work Phone: Start: 08-28-2019 Procedure Education [facility] Work Phone: Start: 08-28-2019 Provider Instructions for Treatment [facility] Work Phone: Start: 04-03-2019 Procedure Education [facility] Work Phone: Start: 04-03-2019 Gluc bld gluc mntr dev cleared fda spec home use [facility] Work Phone: Comment on above: 143 Start: 04-03-2019 Glucose [Mass/Vol] Blood Glucose , Office (88241) [facility] Work Phone: Comment on above: 143 Start: 04-03-2019 HbA1c (Bld) [Mass fraction] HgA1C , Office (89410) [facility] Work Phone: Comment on above: 6.8 Start: 04-03-2019 Hemoglobin glycosylated a1c [facility] Work Phone: Comment on above: 6.8 Start: 03-13-2019 Procedure Education [facility] Work Phone: Start: 03-13-2019 Provider Instructions for Treatment [facility] Work Phone: Start: 03-13-2019 Thyrotropin Qn TSH (THYROID STIMULATING HORMONE) (35647) [facility] Work Phone: Start: 02-27-2019 Assay of thyroid stimulating hormone tsh TSH (THYROID STIMULATING HORMONE) (07795) [facility] Work Phone: Start: 02-27-2019 Thyrotropin Qn TSH (THYROID STIMULATING HORMONE) (57083) [facility] Work Phone: Start: 01-19-2019 Procedure Education [facility] Work Phone: Start: 01-19-2019 Provider Instructions for Treatment [facility] Work Phone: Start: 10-05-2018 Procedure Education [facility] Work Phone: Start: 10-05-2018 Provider Instructions for Treatment [facility] Work Phone: Start: 10-05-2018 Thyrotropin Qn TSH (THYROID STIMULATING HORMONE) (46142) [facility] Work Phone: Comment on above: get done week of Nov 21 Start: 09-16-2018 Procedure Education [facility] Work Phone: Start: 06-27-2018 Procedure Education [facility] Work Phone: Start: 06-27-2018 Provider Instructions for Treatment [facility] Work Phone: Start: 06-27-2018 25 hydroxy includes fractions if performed CALCIFEDIOL (76445) [facility] Work Phone: Comment on above: August 2018 Start: 06-27-2018 Comprehensive metabolic panel Metabolic Panel, Comprehensive (18221) [facility] Work Phone: Comment on above: August 2018 Start: 06-27-2018 Alpha-fetoprotein serum FPVLI-LGLEBNDEVVV-CZOD M (13700) [facility] Work Phone: Comment on above: Aug 2018 Start: 06-27-2018 Thyrotropin Qn TSH (THYROID STIMULATING HORMONE) (92429) [facility] Work Phone: Comment on above: August 2018 Start: 06-14-2018 Procedure Education [facility] Work Phone: Start: 06-14-2018 Provider Instructions for Treatment [facility] Work Phone: Start: 05-02-2018 25 hydroxy includes fractions if performed CALCIFEDIOL (00005) [facility] Work Phone: Start: 05-02-2018 Cobalamin (Vitamin B12) mass conc VITAMIN B12 AND FOLATES (97885) [facility] Work Phone: Start: 05-02-2018 Cyanocobalamin vitamin b-12 VITAMIN B12 AND FOLATES (09626) [facility] Work Phone: Start: 05-02-2018 Assay of free thyroxine T4, FREE (THYROXINE) (80733) [facility] Work Phone: Start: 05-02-2018 T4 free mass conc T4, FREE (THYROXINE) (60816) [facility] Work Phone: Start: 05-02-2018 Assay of triiodothyronine t3 free T3, FREE (TRIDOTHYRONINE) (59375) [facility] Work Phone: Start: 05-02-2018 T3 free mass conc T3, FREE (TRIDOTHYRONINE) (53369) [facility] Work Phone: Start: 05-02-2018 Assay of thyroid stimulating hormone tsh TSH (34404) [facility] Work Phone: Start: 05-02-2018 Thyrotropin Qn TSH (88524) [facility] Work Phone: Start: 04-20-2018 Urinalysis qual/semiquant except immunoassays [facility] Work Phone: Start: 04-20-2018 Culture bacterial quanttative colony count urine [facility] Work Phone: Start: 04-20-2018 Urnls dip stick/tablet rgnt non-auto w/o micrscp [facility] Work Phone: Start: 04-20-2018 Assay of free thyroxine [facility] Work Phone: Start: 04-20-2018 T4 free mass conc T4, FREE (THYROXINE) (20872) [facility] Work Phone: Start: 04-20-2018 Assay of triiodothyronine t3 free [facility] Work Phone: Start: 04-20-2018 T3 free mass conc T3, FREE (TRIDOTHYRONINE) (15495) [facility] Work Phone: Start: 04-20-2018 Assay of thyroid stimulating hormone tsh [facility] Work Phone: Start: 04-20-2018 Thyrotropin Qn TSH (THYROID STIMULATING HORMONE) (52279) [facility] Work Phone: Start: 03-25-2018 Assay of thyroid stimulating hormone tsh [facility] Work Phone: Start: 03-25-2018 Thyrotropin Qn TSH (19014) [facility] Work Phone: Start: 03-25-2018 Assay of free thyroxine [facility] Work Phone: Start: 03-25-2018 T4 free mass conc T4, FREE (THYROXINE) (78250) [facility] Work Phone: Start: 03-25-2018 Assay of triiodothyronine t3 free [facility] Work Phone: Start: 03-25-2018 T3 free mass conc T3, FREE (TRIDOTHYRONINE) (17182) [facility] Work Phone: Start: 03-15-2018 Procedure Education [facility] Work Phone: Start: 12-06-2017 Procedure Education [facility] Work Phone: Start: 12-06-2017 Provider Instructions for Treatment [facility] Work Phone: Start: 11-30-2017 Patient Education [facility] Work Phone: Start: 11-30-2017 Provider Instructions for Treatment [facility] Work Phone: Start: 08-10-2017 Procedure Education [facility] Work Phone: Start: 08-10-2017 Provider Instructions for Treatment [facility] Work Phone: Start: 05-07-2017 Procedure Education [facility] Work Phone: Start: 02-09-2017 Lipid panel [facility] Work Phone: Comment on above: (repeat in Jul 2017 Start: 02-09-2017 Alpha-fetoprotein serum [facility] Work Phone: Comment on above: Repeat Jul 2017 Start: 02-09-2017 Comprehensive metabolic panel [facility] Work Phone: Comment on above: repeat in Jul 2017 Start: 02-09-2017 Provider Instructions for Treatment [facility] Work Phone: Start: 12-09-2016 Procedure Education [facility] Work Phone: Start: 12-09-2016 Provider Instructions for Treatment [facility] Work Phone: Start: 10-13-2016 Procedure Education [facility] Work Phone: Start: 09-30-2016 Procedure Education [facility] Work Phone: Start: 09-30-2016 Provider Instructions for Treatment [facility] Work Phone: Start: 09-30-2016 Assay of thyroid stimulating hormone tsh [facility] Work Phone: Start: 09-30-2016 Thyrotropin Qn TSH (THYROID STIMULATING HORMONE) (07442) [facility] Work Phone: Start: 09-11-2013 Assay of thyroid stimulating hormone tsh [facility] Work Phone: Start: 09-11-2013 Thyrotropin Qn TSH (THYROID STIMULATING HORMONE) (57422) [facility] Work Phone: Start: 08-28-2013 Lipid panel [facility] Work Phone: Comment on above: Draw cholesterol fasting Oct 09 Start: 08-28-2013 Assay of free thyroxine [facility] Work Phone: Comment on above: draw Oct 09 Start: 08-28-2013 T4 free mass conc T4, FREE (THYROXINE) (06698) [facility] Work Phone: Comment on above: draw Oct 09 Start: 08-28-2013 Assay of thyroid stimulating hormone tsh [facility] Work Phone: Comment on above: draw Oct 09 Start: 08-28-2013 Thyrotropin Qn TSH (09252) [facility] Work Phone: Comment on above: [...] A1c/Hemoglobin.total mass fraction (Bld) HgA1C , Office (78235) [facility] Work Phone: Start: 03-06-2013 Hemoglobin glycosylated a1c [facility] Work Phone: Start: 03-06-2013 Provider Instructions for Treatment [facility] Work Phone: Start: 03-07-2012 Provider Instructions for Treatment [facility] Work Phone: Start: 2010 Pneumococcal Vaccine: 65+ (1 of 1 - PCV) Pneumococcal Vaccine: 65+ (1 of 1 - PCV) [facility] Start: 2010 Screening for osteoporosis Bone Density Screening [facility] Start: 10-18-2009 Provider Instructions for Treatment [facility] Work Phone: Start: 10-18-2009 Lipid panel [facility] Work Phone: Start: 10-18-2009 Glucose mass conc Glucose, PP/2 Hour (97323) [facility] Work Phone: Start: 10-18-2009 Glucose quantitative blood xcpt reagent strip [facility] Work Phone: Start: 10-18-2009 Blood occult fecal hgb deter ia qual feces 1-3 [facility] Work Phone: Comment on above: dispense Start: 1995 Shingrix Vaccine (1 of 2) Shingrix Vaccine (1 of 2) [facility] Start: 1990 Diabetes Screening Diabetes Screening [facility] Start: 1964 Urine microalbumin profile DTaP,Tdap,Td Vaccine (1 - Tdap) [facility] Start: 1963 Anxiety Screening Anxiety Screening [facility] Start: 1963 Depression Screening Depression Screening [facility] Work Phone: Comprehensive [...] Immunization Date Immunization Notes Care Provider Aruna [facility] 05-31-2025 tetanus toxoid, reduced diphtheria toxoid, and acellular pertussis vaccine, adsorbed Karen Alcazar COLD MILL OPERATOR-C Work Phone: [facility] 02-14-2021 COVID-19 original vaccine, age 12+ yr, monovalent (PFIZER-BIONTECH - PURPLE TOP) Celena Kaba PHYSICAL SECURITY ENGINEER.WATER FITNESS INSTRUCTOR Work Phone: [facility] 01-27-2021 COVID-19 (Pfizer) Marcia Walker WATER FITNESS INSTRUCTOR Work Phone: [facility]; [facility] Work Phone: 01-24-2021 COVID-19 original vaccine, age 12+ yr, monovalent (PFIZER-BIONTECH - PURPLE TOP) Celena Kaba PHYSICAL SECURITY ENGINEER.WATER FITNESS INSTRUCTOR Work Phone: [facility] Work Phone: Payers Date Payer Category Payer Self-pay [id number] 2017 Medicare [id number] 2017 Medicare [id number] 2010 Medicare [id number] 2005 Unknown [id number] 1945 Unknown [id number] [id number] [id number] Unknown Unknown [id number] 2.16.8 [id number] Unknown [id number] 2.16.8 [id number] Unknown [id number] 2.16.8 [id number] Unknown [id number] 2.16.8 [id number] Unknown [id number] 2.16.8 [id number] Unknown [id number] 2.16.8 [id number] Unknown [id number] 2.16.8 [id number] Unknown [id number] 2.16.8 [id number] Social History Date Type Detail Facility Start: 11-06-2019 End: 11-03-2020 Alcohol Use Never smoker [facility] Work Phone: Comment on above: Moderate alcohol use 2 qd Light Lives with spouse none Tobacco use: Never smoker. [facility] Work Phone: Comment on above: 03/07/12 Tobacco use: Tobacco use: [facility] Work Phone: Comment on above: 03/07/12 Start: 05-05-[facility] Start: 03-07-2019 Non-smoker [facility] Start: 1945 Sex Assigned At Female W [facility] Start: 09-16-2018 End: 05-31-2025 Tobacco smoking status NHIS Never smoked tobacco [facility] Start: 09-16-2018 Tobacco use and exposure Smokeless tobacco non-user [facility] Start: 11-06-2019 Alcoholic beverage intake Current non-drinker of alcohol (finding) [facility] Start: 11-06-2019 End: 11-03-2020 Tobacco use panel [facility] Adult Depression Screening Assessment [address] [facility] Start: 1945 Sex assigned at Not on file C [facility] Medical Equipment Procedure Code Equipment Code [...] 90 {Strip} Refills: 3 Ordered: 30-Sep-2016 Slarb GENERAL INSPECTOR, Latrice Start : 30-Sep-2016 Active Start: 09-30-2016 [...] 90 {Strip} Refills: 3 Ordered: 30-Sep-2016 Slarb GENERAL INSPECTOR, Latrice Start : 30-Sep-2016 Active Start: 09-30-2016 ReliOn Confirm/m icro Test In Vitro Strip 1 (one) Strip Strip test three times daily for 0 days Quantity: 90 {Strip} Refills: 0 Ordered: 30-Sep-2016 Slarb GENERAL INSPECTOR, Latrice Start : 30-Sep-2016 Active Start: 09-30-2016 [...] 90 {Strip} Refills: 3 Ordered: 30-Sep-2016 Slarb GENERAL INSPECTOR, Latrice Start : 30-Sep-2016 Active Start: 09-30-2016 ReliOn Confirm/m icro Test In Vitro Strip 1 (one) Strip Strip test three times daily for 0 days Quantity: 90 {Strip} Refills: 0 Ordered: 30-Sep-2016 Slarb GENERAL INSPECTOR, Latrice Start : 30-Sep-2016 Active Start: 09-30-2016 NovoFine 32G X 6 MM Miscellaneous 1 (one) Misc once daily for 0 days Quantity: 1 {Box} Refills: 5 Ordered: 19-Jan-2019 Aaron WATER FITNESS INSTRUCTOR, Carmen Aaron BRICEÑO, Marcia Orona Start : 19-Jan-2019 Active Start: 01-19-2019 ReliOn Blood Glu cose Test In Vitro Strip 1 (one) Strip Strip test 3 x daily for 0 days Quantity: 90 {Strip} Refills: 3 Ordered: 30-Sep-2016 Slarb GENERAL INSPECTOR, Latrice Start : 30-Sep-2016 Active Start: 09-30-2016 ReliOn Confirm/m icro Test In Vitro Strip 1 (one) Strip Strip test three times daily for 0 days Quantity: 90 {Strip} Refills: 0 Ordered: 30-Sep-2016 Slarb GENERAL INSPECTOR, Latrice Start : 30-Sep-2016 Active Start: 09-30-2016 [...] 90 {Strip} Refills: 0 Ordered: 30-Sep-2016 Slarb GENERAL INSPECTOR, Latrice Start : 30-Sep-2016 Active Start: 09-30-2016 [...] Quantity: 90 {Strip} Refills: 0 Ordered: 30-Sep-2016 aCm ANTON Latrice Start : 30-Sep-2016 Active Start: [...] 90 {Strip} Refills: 3 Ordered: 30-Sep-2016 Slarb GENERAL INSPECTOR, Latrice Start : 30-Sep-2016 Active Start: 09-30-2016 ReliOn Confirm/m icro Test In Vitro Strip 1 (one) Strip Strip test three times daily for 0 days Quantity: 90 {Strip} Refills: 0 Ordered: 30-Sep-2016 Slarb GENERAL INSPECTOR, Latrice Start : 30-Sep-2016 Active Start: 09-30-2016 [...] 90 {Strip} Refills: 3 Ordered: 30-Sep-2016 Slarb GENERAL INSPECTOR, Latrice Start : 30-Sep-2016 Active Start: 09-30-2016 ReliOn Confirm/m icro Test In Vitro Strip 1 (one) Strip Strip test three times daily for 0 days Quantity: 90 {Strip} Refills: 0 Ordered: 30-Sep-2016 Slarb GENERAL INSPECTOR, Latrice Start : 30-Sep-2016 Active Start: 09-30-2016 [...] 90 {Strip} Refills: 3 Ordered: 30-Sep-2016 Slarb GENERAL INSPECTOR, Latrice Start : 30-Sep-2016 Active Start: 09-30-2016 ReliOn Confirm/m icro Test In Vitro Strip 1 (one) Strip Strip test three times daily for 0 days Quantity: 90 {Strip} Refills: 0 Ordered: 30-Sep-2016 Slarb GENERAL INSPECTOR, Latrice Start : 30-Sep-2016 Active Start: 09-30-2016 NovoFine 32G X 6 MM Miscellaneous 1 (one) Misc once daily for 0 days Quantity: 1 {Box} Refills: 5 Ordered: 19-Jan-2019 Cimeryla WATER FITNESS INSTRUCTOR, Carmen [facility]yl[facility] Carmen Start : 19-Jan-2019 Active Start: 01-19-2019 ReliOn Blood Glu cose Test In Vitro Strip 1 (one) Strip Strip test 3 x daily for 0 days Quantity: 90 {Strip} Refills: 3 Ordered: 30-Sep-2016 Slarb GENERAL INSPECTOR, Latrice Start : 30-Sep-2016 Active Start: 09-30-2016 ReliOn Confirm/m icro Test In Vitro Strip 1 (one) Strip Strip test three times daily for 0 days Quantity: 90 {Strip} Refills: 0 Ordered: 30-Sep-2016 Slarb GENERAL INSPECTOR, Latrice Start : 30-Sep-2016 Active Start: 09-30-2016 NovoFine 32G X 6 MM Miscellaneous 1 (one) Misc once daily for 0 days Quantity: 1 {Box} Refills: 5 Ordered: 19-Jan-2019 Dominiqueesa WATER FITNESS INSTRUCTOR, Carmen DominiquemerylFormerly [facility], Carmen Start : 19-Jan-2019 Active Start: 01-19-2019 ReliOn Blood Glu cose Test In Vitro Strip 1 (one) Strip Strip test 3 x daily for 0 days Quantity: 90 {Strip} Refills: 3 Ordered: 30-Sep-2016 Slarb GENERAL INSPECTOR, Latrice Start : 30-Sep-2016 Active Start: 09-30-2016 ReliOn Confirm/m icro Test In Vitro Strip 1 (one) Strip Strip test three times daily for 0 days Quantity: 90 {Strip} Refills: 0 Ordered: 30-Sep-2016 Slarb GENERAL INSPECTOR, Latrice Start : 30-Sep-2016 Active Start: 09-30-2016 [...] 90 {Strip} Refills: 3 Ordered: 30-Sep-2016 Slarb GENERAL INSPECTOR, Latrice Start : 30-Sep-2016 Active Start: 09-30-2016 ReliOn Confirm/m icro Test In Vitro Strip 1 (one) Strip Strip test three times daily for 0 days Quantity: 90 {Strip} Refills: 0 Ordered: 30-Sep-2016 Slarb GENERAL INSPECTOR, Latrice Start : 30-Sep-2016 Active Start: 09-30-2016 NovoFine 32G X 6 MM Miscellaneous 1 (one) Misc once daily for 0 days Quantity: 1 {Box} Refills: 5 Ordered: 19-Jan-2019 Aaron NAVARRO Marcia Walker WATER FITNESS INSTRUCTOR, Marcia Orona Start : 19-Jan-2019 Active Start: [...] 90 {Strip} Refills: 0 Ordered: 30-Sep-2016 Slarb GENERAL INSPECTOR, Latrice Start : 30-Sep-2016 Active Start: 09-30-2016 [...] 90 {Strip} Refills: 3 Ordered: 30-Sep-2016 Slarb GENERAL INSPECTOR, Latrice Start : 30-Sep-2016 Active Start: 09-30-2016 [...] Ordered: 19-Jan-2019 Aaron BRICEÑO, Marcia Orona Dominiquemeryltarsha WATER FITNESS INSTRUCTOR, Carmen Start : 19-Jan-2019 Active Start: 01-19-2019 [...] 5 Ordered: 19-Jan-2019 Aaron BRICEÑO Marcia Walker WATER FITNESS INSTRUCTOR, Marcia Orona Start : 19-Jan-2019 Active Start: 01-19-2019 ReliOn Blood Glu cose Test In Vitro Strip 1 (one) Strip Strip test 3 x daily for 0 days Quantity: 90 {Strip} Refills: 3 Ordered: 30-Sep-2016 Slarb GENERAL INSPECTOR, Latrice Start : 30-Sep-2016 Active Start: 09-30-2016 ReliOn Confirm/m icro Test In Vitro Strip 1 (one) Strip Strip test three times daily for 0 days Quantity: 90 {Strip} Refills: 0 Ordered: 30-Sep-2016 Slarb GENERAL INSPECTOR, Latrice Start : 30-Sep-2016 Active Start: 09-30-2016 NovoFine 32G X 6 MM Miscellaneous 1 (one) Misc once daily for 0 days Quantity: 1 {Box} Refills: 5 Ordered: 19-Jan-2019 Aaron NAVARRO, Marcia Walker WATER FITNESS INSTRUCTOR, Marcia Orona Start : 19-Jan-2019 Active Start: 01-19-2019 ReliOn Blood Glu cose Test In Vitro Strip 1 (one) Strip Strip test 3 x daily for 0 days Quantity: 90 {Strip} Refills: 3 Ordered: 30-Sep-2016 Slarb GENERAL INSPECTOR, Latrice Start : 30-Sep-2016 Active Start: 09-30-2016 ReliOn Confirm/m icro Test In Vitro Strip 1 (one) Strip Strip test three times daily for 0 days Quantity: 90 {Strip} Refills: 0 Ordered: 30-Sep-2016 Slarb GENERAL INSPECTOR, Latrice Start : 30-Sep-2016 Active Start: 09-30-2016 NovoFine 32G X 6 MM Miscellaneous 1 (one) Misc once daily for 0 days Quantity: 1 {Box} Refills: 5 Ordered: 19-Jan-2019 Aaron WATER FITNESS INSTRUCTOR, Marcia Walker [facility], Marcia Orona Start : 19-Jan-2019 Active Start: 01-19-2019 ReliOn Blood Glu cose Test In Vitro Strip 1 (one) Strip Strip test 3 x daily for 0 days Quantity: 90 {Strip} Refills: 3 Ordered: 30-Sep-2016 Slarb GENERAL INSPECTOR, Latrice Start : 30-Sep-2016 Active Start: 09-30-2016 ReliOn Confirm/m icro Test In Vitro Strip 1 (one) Strip Strip test three times daily for 0 days Quantity: 90 {Strip} Refills: 0 Ordered: 30-Sep-2016 Slarb GENERAL INSPECTOR, Latrice Start : 30-Sep-2016 Active Start: 09-30-2016 [...] 90 {Strip} Refills: 3 Ordered: 30-Sep-2016 Slarb GENERAL INSPECTOR, Latrice Start : 30-Sep-2016 Active Start: 09-30-2016 ReliOn Confirm/m icro Test In Vitro Strip 1 (one) Strip Strip test three times daily for 0 days Quantity: 90 {Strip} Refills: 0 Ordered: 30-Sep-2016 Slarb GENERAL INSPECTOR, Latrice Start : 30-Sep-2016 Active Start: 09-30-2016 [...] 90 {Strip} Refills: 3 Ordered: 30-Sep-2016 Slarb GENERAL INSPECTOR, Latrice Start : 30-Sep-2016 Active Start: 09-30-2016 ReliOn Confirm/m icro Test In Vitro Strip 1 (one) Strip Strip test three times daily for 0 days Quantity: 90 {Strip} Refills: 0 Ordered: 30-Sep-2016 Slarb GENERAL INSPECTOR, Latrice Start : 30-Sep-2016 Active Start: 09-30-2016 [...] 90 {Strip} Refills: 0 Ordered: 30-Sep-2016 Slarb GENERAL INSPECTOR, Latrice Start : 30-Sep-2016 Active Start: 09-30-2016 [...] 90 {Strip} Refills: 3 Ordered: 30-Sep-2016 Slarb GENERAL INSPECTOR, Latrice Start : 30-Sep-2016 Active Start: 09-30-2016 ReliOn Confirm/m icro Test In Vitro Strip 1 (one) Strip Strip test three times daily for 0 days Quantity: 90 {Strip} Refills: 0 Ordered: 30-Sep-2016 Slarb GENERAL INSPECTOR, Latrice Start : 30-Sep-2016 Active Start: 09-30-2016 NovoFine 32G X 6 MM Miscellaneous 1 (one) Misc once daily for 0 days Quantity: 1 {Box} Refills: 5 Ordered: 19-Jan-2019 Aaron WATER FITNESS INSTRUCTOR, Carmen Aaron BRICEÑO, Carmen Start : 19-Jan-2019 Active Start: 01-19-2019 ReliOn Blood Glu cose Test In Vitro Strip 1 (one) Strip Strip test 3 x daily for 0 days Quantity: 90 {Strip} Refills: 3 Ordered: 30-Sep-2016 Slarb GENERAL INSPECTOR, Latrice Start : 30-Sep-2016 Active Start: 09-30-2016 ReliOn Confirm/m icro Test In Vitro Strip 1 (one) Strip Strip test three times daily for 0 days Quantity: 90 {Strip} Refills: 0 Ordered: 30-Sep-2016 Slarb GENERAL INSPECTOR, Latrice Start : 30-Sep-2016 Active Start: 09-30-2016 NovoFine 32G X 6 MM Miscellaneous 1 (one) Misc once daily for 0 days Quantity: 1 {Box} Refills: 5 Ordered: 19-Jan-2019 Reneaa WATER FITNESS INSTRUCTOR, Carmen Reneaa WATER FITNESS INSTRUCTOR, Carmen Start : 19-Jan-2019 Active Start: 01-19-2019 ReliOn Blood Glu cose Test In Vitro Strip 1 (one) Strip Strip test 3 x daily for 0 days Quantity: 90 {Strip} Refills: 3 Ordered: 30-Sep-2016 Slarb GENERAL INSPECTOR, Latrice Start : 30-Sep-2016 Active Start: 09-30-2016 ReliOn Confirm/m icro Test In Vitro Strip 1 (one) Strip Strip test three times daily for 0 days Quantity: 90 {Strip} Refills: 0 Ordered: 30-Sep-2016 Slarb GENERAL INSPECTOR, Latrice Start : 30-Sep-2016 Active Start: 09-30-2016 NovoFine 32G X 6 MM Miscellaneous 1 (one) Misc once daily for 0 days Quantity: 1 {Box} Refills: 5 Ordered: 19-Jan-2019 Aaron BRICEÑO, Carmen Aaron WATER FITNESS INSTRUCTOR, Carmen Start : 19-Jan-2019 Active Start: 01-19-2019 ReliOn Blood Glu cose Test In Vitro Strip 1 (one) Strip Strip test 3 x daily for 0 days Quantity: 90 {Strip} Refills: 3 Ordered: 30-Sep-2016 Slarb GENERAL INSPECTOR, Latrice Start : 30-Sep-2016 Active Start: 09-30-2016 ReliOn Confirm/m icro Test In Vitro Strip 1 (one) Strip Strip test three times daily for 0 days Quantity: 90 {Strip} Refills: 0 Ordered: 30-Sep-2016 Slarb GENERAL INSPECTOR, Latrice Start : 30-Sep-2016 Active Start: 09-30-2016 NovoFine 32G X 6 MM Miscellaneous 1 (one) Misc once daily for 0 days Quantity: 1 {Box} Refills: 5 Ordered: 19-Jan-2019 Aaron BRICEÑO, Carmen [facility], Carmen Start : 19-Jan-2019 Active Start: 01-19-2019 ReliOn Blood Glu cose Test In Vitro Strip 1 (one) Strip Strip test 3 x daily for 0 days Quantity: 90 {Strip} Refills: 3 Ordered: 30-Sep-2016 Slarb GENERAL INSPECTOR, Latrice Start : 30-Sep-2016 Active Start: 09-30-2016 ReliOn Confirm/m icro Test In Vitro Strip 1 (one) Strip Strip test three times daily for 0 days Quantity: 90 {Strip} Refills: 0 Ordered: 30-Sep-2016 Slarb GENERAL INSPECTOR, Latrice Start : 30-Sep-2016 Active Start: 09-30-2016 [...] 90 {Strip} Refills: 3 Ordered: 30-Sep-2016 Slarb GENERAL INSPECTOR, Latrice Start : 30-Sep-2016 Active Start: 09-30-2016 ReliOn Confirm/m icro Test In Vitro Strip 1 (one) Strip Strip test three times daily for 0 days Quantity: 90 {Strip} Refills: 0 Ordered: 30-Sep-2016 Slarb GENERAL INSPECTOR, Latrice Start : 30-Sep-2016 Active Start: 09-30-2016 [...] 90 {Strip} Refills: 3 Ordered: 30-Sep-2016 Slarb GENERAL INSPECTOR, Latrice Start : 30-Sep-2016 Active Start: 09-30-2016 ReliOn Confirm/m icro Test In Vitro Strip 1 (one) Strip Strip test three times daily for 0 days Quantity: 90 {Strip} Refills: 0 Ordered: 30-Sep-2016 Slarb GENERAL INSPECTOR, Latrice Start : 30-Sep-2016 Active Start: 09-30-2016 NovoFine 32G X 6 MM Miscellaneous 1 (one) Misc once daily for 0 days Quantity: 1 {Box} Refills: 5 Ordered: 19-Jan-2019 Aaron WATER FITNESS INSTRUCTOR, Marcia Orona [facility] [place], Carmen Start : 19-Jan-2019 Active Start: 01-19-2019 ReliOn Blood Glu cose Test In Vitro Strip 1 (one) Strip Strip test 3 x daily for 0 days Quantity: 90 {Strip} Refills: 3 Ordered: 30-Sep-2016 Slarb GENERAL INSPECTOR, Latrice Start : 30-Sep-2016 Active Start: 09-30-2016 ReliOn Confirm/m icro Test In Vitro Strip 1 (one) Strip Strip test three times daily for 0 days Quantity: 90 {Strip} Refills: 0 Ordered: 30-Sep-2016 Slarb SLOANE, Latrice Start : 30-Sep-2016 Active Start: 09-30-2016 NovoFine 32G X 6 MM Miscellaneous 1 (one) Misc once daily for 0 days Quantity: 1 {Box} Refills: 5 Ordered: 19-Jan-2019 Reneaa WATER FITNESS INSTRUCTOR, Marcia MeierFormerly [facility], Marcia Orona Start : 19-Jan-2019 Active Start: 01-19-2019 ReliOn Blood Glu cose Test In Vitro Strip 1 (one) Strip Strip test 3 x daily for 0 days Quantity: 90 {Strip} Refills: 3 Ordered: 30-Sep-2016 Slarb GENERAL INSPECTOR, Latrice Start : 30-Sep-2016 Active Start: 09-30-2016 ReliOn Confirm/m icro Test In Vitro Strip 1 (one) Strip Strip test three times daily for 0 days Quantity: 90 {Strip} Refills: 0 Ordered: 30-Sep-2016 Slarb GENERAL INSPECTOR, Latrice Start : 30-Sep-2016 Active Start: 09-30-2016 [...] 90 {Strip} Refills: 3 Ordered: 30-Sep-2016 Slarb GENERAL INSPECTOR, Latrice Start : 30-Sep-2016 Active Start: 09-30-2016 ReliOn Confirm/m icro Test In Vitro Strip 1 (one) Strip Strip test three times daily for 0 days Quantity: 90 {Strip} Refills: 0 Ordered: 30-Sep-2016 Slarb GENERAL INSPECTOR, Latrice Start : 30-Sep-2016 Active Start: 09-30-2016 NovoFine 32G X 6 MM Miscellaneous 1 (one) Misc once daily for 0 days Quantity: 1 {Box} Refills: 5 Ordered: 19-Jan-2019 Dominiquedari NAVARRO, Marcia Walker WATER FITNESS INSTRUCTOR, Carmen Start : 19-Jan-2019 Active Start: 01-19-2019 ReliOn Blood Glu cose Test In Vitro Strip 1 (one) Strip Strip test 3 x daily for 0 days Quantity: 90 {Strip} Refills: 3 Ordered: 30-Sep-2016 Slarb GENERAL INSPECTOR, Latrice Start : 30-Sep-2016 Active Start: 09-30-2016 ReliOn Confirm/m icro Test In Vitro Strip 1 (one) Strip Strip test three times daily for 0 days Quantity: 90 {Strip} Refills: 0 Ordered: 30-Sep-2016 Slarb GENERAL INSPECTOR, Latrice Start : 30-Sep-2016 Active Start: 09-30-2016 NovoFine 32G X 6 MM Miscellaneous 1 (one) Misc once daily for 0 days Quantity: 1 {Box} Refills: 5 Ordered: 19-Jan-2019 Aaron BRICEÑO, Carmen Aaron WATER FITNESS INSTRUCTOR, Carmen Start : 19-Jan-2019 Active Start: 01-19-2019 ReliOn Blood Glu cose Test In Vitro Strip 1 (one) Strip Strip test 3 x daily for 0 days Quantity: 90 {Strip} Refills: 3 Ordered: 30-Sep-2016 Slarb GENERAL INSPECTOR, Latrice Start : 30-Sep-2016 Active Start: 09-30-2016 [...] {Box} Refills: 5 Ordered: 19-Jan-2019 Reneatarsha BRICEÑOMarcia WATER FITNESS INSTRUCTOR, Marcia Orona Start : 19-Jan-2019 Active Start: [...] 90 {Strip} Refills: 0 Ordered: 30-Sep-2016 Slarb GENERAL INSPECTOR, Latrice Start : 30-Sep-2016 Active Start: 09-30-2016 [...] 90 {Strip} Refills: 3 Ordered: 30-Sep-2016 Slarb GENERAL INSPECTOR, Latrice Start : 30-Sep-2016 Active Start: 09-30-2016 ReliOn Confirm/m icro Test In Vitro Strip 1 (one) Strip Strip test three times daily for 0 days Quantity: 90 {Strip} Refills: 0 Ordered: 30-Sep-2016 Slarb GENERAL INSPECTOR, Latrice Start : 30-Sep-2016 Active Start: 09-30-2016 NovoFine 32G X 6 MM Miscellaneous 1 (one) Misc once daily for 0 days Quantity: 1 {Box} Refills: 5 Ordered: 19-Jan-2019 Marcia Walker Start : 19-Jan-2019 Active Start: 01-19-2019 ReliOn Blood Glu cose Test In Vitro Strip 1 (one) Strip Strip test 3 x daily for 0 days Quantity: 90 {Strip} Refills: 3 Ordered: 30-Sep-2016 Slarb GENERAL INSPECTOR, Latrice Start : 30-Sep-2016 Active Start: 09-30-2016 ReliOn Confirm/m icro Test In Vitro Strip 1 (one) Strip Strip test three times daily for 0 days Quantity: 90 {Strip} Refills: 0 Ordered: 30-Sep-2016 Slarb GENERAL INSPECTOR, Latrice Start : 30-Sep-2016 Active Start: 09-30-2016 NovoFine 32G X 6 MM Miscellaneous 1 (one) Misc once daily for 0 days Quantity: 1 {Box} Refills: 5 Ordered: 19-Jan-2019 Marcia Walker Start : 19-Jan-2019 Active Start: 01-19-2019 ReliOn Blood Glu cose Test In Vitro Strip 1 (one) Strip Strip test 3 x daily for 0 days Quantity: 90 {Strip} Refills: 3 Ordered: 30-Sep-2016 Slarb GENERAL INSPECTOR, Latrice Start : 30-Sep-2016 Active Start: 09-30-2016 ReliOn Confirm/m icro Test In Vitro Strip 1 (one) Strip Strip test three times daily for 0 days Quantity: 90 {Strip} Refills: 0 Ordered: 30-Sep-2016 Slarb GENERAL INSPECTOR, Latrice Start : 30-Sep-2016 Active Start: 09-30-2016 ReliOn Blood Glu cose Test In Vitro Strip 1 (one) Strip Strip test 3 x daily for 0 days Quantity: 90 {Strip} Refills: 3 Ordered: 30-Sep-2016 Slarb GENERAL INSPECTOR, Latrice Start : 30-Sep-2016 Active Start: 09-30-2016 ReliOn Confirm/m icro Test In Vitro Strip 1 (one) Strip Strip test three times daily for 0 days Quantity: 90 {Strip} Refills: 0 Ordered: 30-Sep-2016 Slarb GENERAL INSPECTOR, Latrice Start : 30-Sep-2016 Active Start: 09-30-2016 [...] Note Facility 05-31-2025 Radiology Diagnostic study note [facility] Imaging Services [address] [place], [place] [id number] Spine Cervical without Contras MR#: [id number] Acct: [id number] Name: KAREN VILLALOBOS Rep #: [id number] : 1945 F 79 From: Maureen Marie MD PCP: ADRIANO Burgess Status: REG E R Study:Spine Cervical without Contras Date of Exam: 05/31/25 Exam# [id number] Ordering Dr: Kelvin Butt DO EXAM: CT [...] 2. Degenerative changes as above. Reading Location: [facility] CC: COLD MILL OPERATOR-C Karen Alcazar; Dr. Kelvin Butt, ~ Intensivist: Signed [facility] 05-31-2025 Radiology Diagnostic study note [facility] Imaging Services [address] [place], [place] [address] Sinus/Facial Bone MR#: [id number] Acct: [id number] Name: KAREN VILLALOBOS Rep #: [id number] : 1945 F 79 From: Sebastian Gomez MD PCP: ADRIANO Burgess Status: REG E R Study:Sinus/Facial Bone Date of Exam: Exam# [id number] Ordering Dr: Kelvin Butt DO PROCEDURE: SINUS/FACIAL [...] no underlying fracture. Reading Location: [place] CC: COLD MILL OPERATOR-C Karen Alcazar; DO Anthony Keith Intensivist: Signed [facility] 05-31-2025 Radiology Diagnostic study note [facility] Imaging Services [address] [place], [place] [address] Shoulder min 2 Views MR#: [id number] Acct: [id number] Name: KAREN VILLALOBOS Rep #: [id number] : 1945 F 79 From: Sebastian Gomez MD PCP: ADRIANO Burgess Status: REG E R Study:Shoulder min 2 Views Date of Exam: 05/31/25 Exam# [id number] Ordering Dr: Kelvin Butt DO PROCEDURE: SHOULDER [...] ADRIANO Alcazar; Dr. Kelvin Butt DO ~ Intensivist: Signed [facility] 05-31-2025 Radiology Diagnostic study note [facility] Imaging Services [address] [place] [id number] Brain/Head without Contrast MR#: [id number] Acct: [id number] Name: KAREN VILLALOBOS Rep #: [id number] : 1945 F 79 From: Sebastian Gomez MD PCP: ADRIANO Burgess Status: REG E R Study:Brain/Head without Contrast Date of Exa m: 05/31/25 Exam# [id number] Ordering Dr: Kelvin Butt DO EXAM: NONCONTRAST [...] ADRIANO Alcazar; Dr. Kelvin Butt, DO ~ Intensivist: Signed [facility] 11-01-2024 Telephone encounter Note A copy of this note was faxed to Karen Alcazar CNP. Shavonne Zuluaga LPN [facility] 11-01-2024 Miscellaneous Notes A copy of this [...] with a physician. Thank you. Celena Kaba APRN.WATER FITNESS INSTRUCTOR documented in this encounter [facility] 11-01-2024 Telephone encounter Note Received a fax from Karen Alcazar CNP Re: pt. having elevated CEA with h/o breast cancer. Pt. last seen here in 2019 and refused further follow ups here. Please inform Karen that pt. needs to be worked up for elevated CEA. If +path obtained and needs consult here she will be scheduled with a physician. Thank you. Celena Kaba APRN.WATER FITNESS INSTRUCTOR [facility] Work Phone: Evaluation note No assessment inform ation available [facility] Work Phone: Instructions Name Patient Instructions Indication:Acute sinusitis Start:25-Feb-20 Instruction Type:Provider Instructions for Treatment How to Access Health Information Online using Patient Portal and 3rd Libertarian Apps Indication:Acute sinusitis Start:25-Feb-20 Instruction Type:Patient Education [...] Instructions for Treatment DISCONTINUED - LIPID PANEL (85281) Indication:Hypercholesteremia Start:13-Oct-20 Instruction Type:Patient Education DISCONTINUED - Glucose, PP/2 Hour (95995) Indication:Family history of diabetes mellitus Start:13-Oct-20 Instruction Type:Patient Education DISCONTINUED - Hemoglobin Glyclated (HGB A1C) (89284) Indication:Family history of diabetes mellitus Start:13-Oct-20 Instruction [...] tion Online using Patient Portal and 3rd Libertarian Apps Indication:Nonsmoker Start:19-Mar-2021 Instruction Type:Patient Education Patient Instructions Indication:Acute sinusitis Start:24-Feb-2021 Instruction Type:Provider Instructions for Treatment How to Access Health Informa tion Online using Patient Portal and 3rd Libertarian Apps Indication:Acute sinusitis Start:24-Feb-2021 Instruction Type:Patient Education [...] for Treatment DISCONTINUED - LIPID PANEL ( [id number]) Indication:Hypercholesteremia Start:13-Oct-2016 Instruction Type:Patient Education DISCONTINUED - Glucose, PP/2 Hour (15956) Indication:Family history of diabetes mellitus Start:13-Oct-2016 Instruction Type:Patient Education DISCONTINUED - Hemoglobin Glyclated (HGB A1C) (18380) Indication:Family history of diabetes mellitus Start:13-Oct-2016 Instruction [...] for Treatment How to Access Health Informa [employer] Online using Patient Portal and 3rd Libertarian Apps Indication:Nonsmoker Start:19-Mar-2021 Instruction Type:Patient Education Patient Instructions Indication:Acute sinusitis Start:24-Feb-2021 Instruction Type:Provider Instructions for Treatment How to Access Health Informa tion Online using Patient Portal and [email or web address] Apps Indication:Acute sinusitis Start:24-Feb-2021 Instruction Type:Patient Education [...] for Treatment DISCONTINUED - LIPID PANEL ( 86903) Indication:Hypercholesteremia Start:13-Oct-2016 Instruction Type:Patient Education DISCONTINUED - Glucose, PP/2 Hour (64639) Indication:Family history of diabetes mellitus Start:13-Oct-2016 Instruction Type:Patient Education DISCONTINUED - Hemoglobin Glyclated (HGB A1C) (69283) Indication:Family history of diabetes mellitus Start:13-Oct-2016 Instruction [...] Instructions for Treatment How to Access Health [employer] using Patient Portal and [employer] Libertarian Apps Indication:Nonsmoker Start:19-Mar-2021 Instruction Type:Patient Education Patient Instructions Indication:Acute sinusitis Start:24-Feb-2021 Instruction Type:Provider Instructions for Treatment How to Access Health Informa tion Online using Patient Portal and 3rd Libertarian Apps Indication:Acute sinusitis Start:24-Feb-2021 Instruction Type:Patient Education [...] for Treatment DISCONTINUED - LIPID PANEL ( [id number]) Indication:Hypercholesteremia Start:13-Oct-2016 Instruction Type:Patient Education DISCONTINUED - Glucose, PP/2 Hour (79099) Indication:Family history of diabetes mellitus Start:13-Oct-2016 Instruction Type:Patient Education DISCONTINUED - Hemoglobin Glyclated (HGB A1C) (56374) Indication:Family history of diabetes mellitus Start:13-Oct-2016 Instruction Type:Patient Education How to access health informa [employer] online Indication:Uncontrolled type 2 diabetes mellitus without [...] for Treatment How to access health informa [employer] online Indication:Uncontrolled type 2 diabetes mellitus without [...] Instructions for Treatment How to Access Health [employer] Online using Patient Portal and [employer] Libert[employer] Apps Indication:Nonsmoker Start:19-Mar-2021 Instruction Type:Patient Education Patient Instructions Indication:Acute sinusitis Start:24-Feb-2021 Instruction Type:Provider Instructions for Treatment How to Access Health Informa tion Online using Patient Portal and 3rd Libert[employer] Apps Indication:Acute sinusitis Start:24-Feb-2021 Instruction Type:Patient Education [...] for Treatment DISCONTINUED - LIPID PANEL ( 38781) Indication:Hypercholesteremia Start:13-Oct-2016 Instruction Type:Patient Education DISCONTINUED - Glucose, PP/2 Hour (98906) Indication:Family history of diabetes mellitus Start:13-Oct-2016 Instruction Type:Patient Education DISCONTINUED - Hemoglobin Glyclated (HGB A1C) (97818) Indication:Family history of diabetes mellitus Start:13-Oct-2016 Instruction [...] Informa tion Online using Patient Portal and [email or web address] Apps Indication:Nonsmoker Start:19-Mar-2021 Instruction Type:Patient Education Patient Instructions Indication:Acute sinusitis Start:24-Feb-2021 Instruction Type:Provider Instructions for Treatment How to Access Health Informa tion Online using Patient Portal and [employer] Apps Indication:Acute sinusitis Start:24-Feb-2021 Instruction Type:Patient Education [...] for Treatment DISCONTINUED - LIPID PANEL ( 98299) Indication:Hypercholesteremia Start:13-Oct-2016 Instruction Type:Patient Education DISCONTINUED - Glucose, PP/2 Hour (82518) Indication:Family history of diabetes mellitus Start:13-Oct-2016 Instruction Type:Patient Education DISCONTINUED - Hemoglobin Glyclated (HGB A1C) (31946) Indication:Family history of diabetes mellitus Start:13-Oct-2016 Instruction Type:Patient Education How to access health [employer] online Indication:Uncontrolled type 2 diabetes mellitus without complication, without long-term current use of insulin Start:13-Oct-2016 Instruction Type:Patient Education How to access health informa [employer] online - Detail Indication:Uncontrolled type 2 diabetes mellitus without complication, without long-term current use of insulin Start:13-Oct-2016 Instruction Type:Patient Education Patient Instructions Indication:Uncontrolled type 2 diabetes mellitus without complication, without long-term current use of insulin Start:13-Oct-2016 Instruction Type:Provider Instructions for Treatment Patient Instructions Indication:Nonsmoker Start:30-Sep-2016 Instruction Type:Provider Instructions for Treatment How to access health [employer] online Indication:Uncontrolled type 2 diabetes mellitus without complication, without long-term current use of insulin Start:30-Sep-2016 Instruction Type:Patient Education How to access health informa [employer] online - Detail Indication:Uncontrolled type 2 diabetes [...] Type:Provider Instructions for Treatment How to Access [employer] using Patient Portal and [email or web address] Apps Indication:Diabetes mellitus type II, controlled, with no complications (Renamed from Controlled type 2 diabetes mellitus without complication) Start:18-Nov-2021 Instruction Type:Patient Education Patient Instructions Indication:Vitamin D deficiency Start:13-Aug-2021 Instruction Type:Provider Instructions for Treatment How to Access Health Informa tion Online using Patient Portal and 3rd Libert[employer] Apps Indication:BMI 34.0-34.9,adult Start:13-Aug-2021 Instruction Type:Patient Education Patient Instructions Indication:Temporary low platelet count Start:19-Mar-2021 Instruction Type:Provider Instructions for Treatment How to Access Health Informa tion Online using Patient Portal and 3rd [employer] Apps Indication:Nonsmoker Start:19-Mar-2021 Instruction Type:Patient Education Patient Instructions Indication:Acute sinusitis Start:24-Feb-2021 Instruction Type:Provider Instructions for Treatment How to Access Health Informa tion Online using Patient Portal and 3rd [employer] Apps Indication:Acute sinusitis Start:24-Feb-2021 Instruction Type:Patient Education [...] Instructions for Treatment How to access health [employer] [employer] online Indication:Uncontrolled type 2 diabetes mellitus without complication, without long-term current use of insulin Start:09-Dec-2016 Instruction Type:Patient Education How to access health informa [employer] online - Detail Indication:Uncontrolled type 2 diabetes mellitus without complication, without long-term current use of insulin Start:09-Dec-2016 Instruction Type:Patient Education Patient Instructions Indication:Uncontrolled type 2 diabetes mellitus without complication, without long-term current use of insulin Start:09-Dec-2016 Instruction Type:Provider Instructions for Treatment DISCONTINUED - LIPID PANEL ( 00338) Indication:Hypercholesteremia Start:13-Oct-2016 Instruction Type:Patient Education DISCONTINUED - Glucose, PP/2 Hour (23044) Indication:Family history of diabetes mellitus Start:13-Oct-2016 Instruction Type:Patient Education DISCONTINUED - Hemoglobin Glyclated (HGB A1C) (21618) Indication:Family history of diabetes mellitus Start:13-Oct-2016 Instruction Type:Patient Education How to access health [employer] online Indication:Uncontrolled type 2 diabetes mellitus without complication, without long-term current use of insulin Start:13-Oct-2016 Instruction Type:Patient Education How to access health informa [employer] online - Detail Indication:Uncontrolled type 2 diabetes mellitus without complication, without long-term current use of insulin Start:13-Oct-2016 Instruction Type:Patient Education Patient Instructions Indication:Uncontrolled type 2 diabetes mellitus without complication, without long-term current use of insulin Start:13-Oct-2016 Instruction Type:Provider Instructions for Treatment Patient Instructions Indication:Nonsmoker Start:30-Sep-2016 Instruction Type:Provider Instructions for Treatment How to access health [employer] Indication:Uncontrolled type 2 diabetes mellitus without complication, without long-term current use of insulin Start:30-Sep-2016 Instruction Type:Patient Education How to access health informa [employer] online - Detail Indication:Uncontrolled type 2 diabetes [...] for Treatment DISCONTINUED - LIPID PANEL ( [id number]) Indication:Hypercholesteremia Start:13-Oct-2016 Instruction Type:Patient Education DISCONTINUED - Glucose, PP/2 Hour (97182) Indication:Family history of diabetes mellitus Start:13-Oct-2016 Instruction Type:Patient Education DISCONTINUED - Hemoglobin Glyclated (HGB A1C) (71566) Indication:Family history of diabetes mellitus Start:13-Oct-2016 Instruction Type:Patient Education How to access health [employer] online Indication:Uncontrolled type 2 diabetes mellitus without [...] for Treatment How to access health informa [employer] online Indication:Uncontrolled type 2 diabetes mellitus without [...] Instructions for Treatment How to Access Health [employer] Online using Patient Portal and [employer] Indication:Diabetes mellitus type II, controlled, with no complications (Renamed from Controlled type 2 diabetes mellitus without complication) Start:27-Feb-2022 Instruction Type:Patient Education Patient Instructions Indication:BMI 33.0-33.9,adult Start:18-Nov-2021 Instruction Type:Provider Instructions for Treatment How to Access Health Informa tion Online using Patient Portal and [employer] Indication:Diabetes mellitus type II, controlled, with no complications (Renamed from Controlled type 2 diabetes mellitus without complication) Start:18-Nov-2021 Instruction Type:Patient Education Patient Instructions Indication:Vitamin D deficiency Start:13-Aug-2021 Instruction Type:Provider Instructions for Treatment How to Access Health Informa tion Online using Patient Portal and [employer] Indication:BMI 34.0-34.9,adult Start:13-Aug-2021 Instruction Type:Patient Education Patient Instructions Indication:Temporary low platelet count Start:19-Mar-2021 Instruction Type:Provider Instructions for Treatment How to Access Health Informa tion Online using Patient Portal and [employer] Indication:Nonsmoker Start:19-Mar-2021 Instruction Type:Patient Education Patient Instructions Indication:Acute sinusitis Start:24-Feb-2021 Instruction Type:Provider Instructions for Treatment How to Access Health Informa tion Online using Patient Portal and [email or web address] Apps Indication:Acute sinusitis Start:24-Feb-2021 Instruction Type:Patient Education [...] for Treatment How to access health informa [employer] online Indication:Uncontrolled type 2 diabetes mellitus without complication, without long-term current use of insulin Start:09-Dec-2016 Instruction Type:Patient Education How to access health informa [employer] online - Detail Indication:Uncontrolled type 2 diabetes mellitus without complication, without long-term current use of insulin Start:09-Dec-2016 Instruction Type:Patient Education Patient Instructions Indication:Uncontrolled type 2 diabetes mellitus without complication, without long-term current use of insulin Start:09-Dec-2016 Instruction Type:Provider Instructions for Treatment DISCONTINUED - LIPID PANEL ( [id number]) Indication:Hypercholesteremia Start:13-Oct-2016 Instruction Type:Patient Education DISCONTINUED - Glucose, PP/2 Hour (73032) Indication:Family history of diabetes mellitus Start:13-Oct-2016 Instruction Type:Patient Education DISCONTINUED - Hemoglobin Glyclated (HGB A1C) ([id number]) Indication:Family history of diabetes mellitus Start:13-Oct-2016 Instruction Type:Patient Education How to access health [employer] online Indication:Uncontrolled type 2 diabetes mellitus without complication, without long-term current use of insulin Start:13-Oct-2016 Instruction Type:Patient Education How to access health informa [employer] online - Detail Indication:Uncontrolled type 2 diabetes mellitus without complication, without long-term current use of insulin Start:13-Oct-2016 Instruction Type:Patient Education Patient Instructions Indication:Uncontrolled type 2 diabetes mellitus without complication, without long-term current use of insulin Start:13-Oct-2016 Instruction Type:Provider Instructions for Treatment Patient Instructions Indication:Nonsmoker Start:30-Sep-2016 Instruction Type:Provider Instructions for Treatment How to access [employer] Indication:Uncontrolled type 2 diabetes mellitus without complication, [...] tion Online using Patient Portal and [employer] Apps Indication:Diabetes mellitus type II, controlled, with no complications (Renamed from Controlled type 2 diabetes mellitus without complication) Start:27-Feb-2022 Instruction Type:Patient Education Patient Instructions Indication:BMI 33.0-33.9,adult Start:18-Nov-2021 Instruction Type:Provider Instructions for Treatment How to Access Health Informa tion Online using Patient Portal and [employer] Apps Indication:Diabetes mellitus type II, controlled, with no complications (Renamed from Controlled type 2 diabetes mellitus without complication) Start:18-Nov-2021 Instruction Type:Patient Education Patient Instructions Indication:Vitamin D deficiency Start:13-Aug-2021 Instruction Type:Provider Instructions for Treatment How to Access Health Informa tion Online using Patient Portal and [employer] Indication:BMI 34.0-34.9,adult Start:13-Aug-2021 Instruction Type:Patient Education Patient Instructions Indication:Temporary low platelet count Start:19-Mar-2021 Instruction Type:Provider Instructions for Treatment How to Access Health Informa tion Online using Patient Portal and [employer] Indication:Nonsmoker Start:19-Mar-2021 Instruction Type:Patient Education Patient Instructions Indication:Acute sinusitis Start:24-Feb-2021 Instruction Type:Provider Instructions for Treatment How to Access Health Informa tion Online using Patient Portal and [employer] Indication:Acute sinusitis Start:24-Feb-2021 Instruction Type:Patient Education [...] for Treatment DISCONTINUED - LIPID PANEL ( [id number]) Indication:Hypercholesteremia Start:13-Oct-2016 Instruction Type:Patient Education DISCONTINUED - Glucose, PP/2 Hour ([id number]) Indication:Family history of diabetes mellitus Start:13-Oct-2016 Instruction Type:Patient Education DISCONTINUED - Hemoglobin Glyclated (HGB A1C) (10116) Indication:Family history of diabetes mellitus Start:13-Oct-2016 Instruction [...] Informa tion Online using Patient Portal and [email or web address] Apps Indication:Diabetes mellitus type II, controlled, with no complications (Renamed from Controlled type 2 diabetes mellitus without complication) Start:27-Feb-2022 Instruction Type:Patient Education Patient Instructions Indication:BMI 33.0-33.9,adult Start:18-Nov-2021 Instruction Type:Provider Instructions for Treatment How to Access Health Informa tion Online using Patient Portal and [email or web address] Apps Indication:Diabetes mellitus type II, controlled, with no complications (Renamed from Controlled type 2 diabetes mellitus without complication) Start:18-Nov-2021 Instruction Type:Patient Education Patient Instructions Indication:Vitamin D deficiency Start:13-Aug-2021 Instruction Type:Provider Instructions for Treatment How to Access Health Informa tion Online using Patient Portal and [email or web address] Indication:BMI 34.0-34.9,adult Start:13-Aug-2021 Instruction Type:Patient Education Patient Instructions Indication:Temporary low platelet count Start:19-Mar-2021 Instruction Type:Provider Instructions for Treatment How to Access Health Informa tion Online using Patient Portal and [email or web address] Indication:Nonsmoker Start:19-Mar-2021 Instruction Type:Patient Education Patient Instructions Indication:Acute sinusitis Start:24-Feb-2021 Instruction Type:Provider Instructions for Treatment How to Access Health Informa tion Online using Patient Portal and [email or web address] Indication:Acute sinusitis Start:24-Feb-2021 Instruction Type:Patient Education [...] Instructions for Treatment How to access health [employer] Indication:Uncontrolled type 2 diabetes mellitus without complication, without long-term current use of insulin Start:09-Dec-2016 Instruction Type:Patient Education How to access health informa [employer] online - Detail Indication:Uncontrolled type 2 diabetes mellitus without complication, without long-term current use of insulin Start:09-Dec-2016 Instruction Type:Patient Education Patient Instructions Indication:Uncontrolled type 2 diabetes mellitus without complication, without long-term current use of insulin Start:09-Dec-2016 Instruction Type:Provider Instructions for Treatment DISCONTINUED - LIPID PANEL ( [id number]) Indication:Hypercholesteremia Start:13-Oct-2016 Instruction Type:Patient Education DISCONTINUED - Glucose, PP/2 Hour (50848) Indication:Family history of diabetes mellitus Start:13-Oct-2016 Instruction Type:Patient Education DISCONTINUED - Hemoglobin Glyclated (HGB A1C) (15262) Indication:Family history of diabetes mellitus Start:13-Oct-2016 Instruction Type:Patient Education How to access health [employer] online Indication:Uncontrolled type 2 diabetes mellitus without complication, without long-term current use of insulin Start:13-Oct-2016 Instruction Type:Patient Education How to access health informa [employer] online - Detail Indication:Uncontrolled type 2 diabetes mellitus without complication, without long-term current use of insulin Start:13-Oct-2016 Instruction Type:Patient Education Patient Instructions Indication:Uncontrolled type 2 diabetes mellitus without complication, without long-term current use of insulin Start:13-Oct-2016 Instruction Type:Provider Instructions for Treatment Patient Instructions Indication:Nonsmoker Start:30-Sep-2016 Instruction Type:Provider Instructions for Treatment How to access health [employer] online Indication:Uncontrolled type 2 diabetes mellitus without complication, without long-term current use of insulin Start:30-Sep-2016 Instruction Type:Patient Education How to access health informa [employer] online - Detail Indication:Uncontrolled type 2 diabetes [...] tion Online using Patient Portal and [employer] Indication:Nonsmoker Start:26-May-2022 Instruction Type:Patient Education Patient Instructions Indication:Diabetes mellitus type II, controlled, with no complications (Renamed from Controlled type 2 diabetes mellitus without complication) Start:27-Feb-2022 Instruction Type:Provider Instructions for Treatment How to Access Health Informa tion Online using Patient Portal and [employer] Indication:Diabetes mellitus type II, controlled, with no complications (Renamed from Controlled type 2 diabetes mellitus without complication) Start:27-Feb-2022 Instruction Type:Patient Education Patient Instructions Indication:BMI 33.0-33.9,adult Start:18-Nov-2021 Instruction Type:Provider Instructions for Treatment How to Access Health Informa tion Online using Patient Portal and [employer] Indication:Diabetes mellitus type II, controlled, with no complications (Renamed from Controlled type 2 diabetes mellitus without complication) Start:18-Nov-2021 Instruction Type:Patient Education Patient Instructions Indication:Vitamin D deficiency Start:13-Aug-2021 Instruction Type:Provider Instructions for Treatment How to Access Health Informa tion Online using Patient Portal and [employer] Indication:BMI 34.0-34.9,adult Start:13-Aug-2021 Instruction Type:Patient Education Patient Instructions Indication:Temporary low platelet count Start:19-Mar-2021 Instruction Type:Provider Instructions for Treatment How to Access Health Informa tion Online using Patient Portal and [employer] Indication:Nonsmoker Start:19-Mar-2021 Instruction Type:Patient Education Patient Instructions Indication:Acute sinusitis Start:24-Feb-2021 Instruction Type:Provider Instructions for Treatment How to Access Health Informa tion Online using Patient Portal and [employer] Indication:Acute sinusitis Start:24-Feb-2021 Instruction Type:Patient Education [...] for Treatment DISCONTINUED - LIPID PANEL ( [id number]) Indication:Hypercholesteremia Start:13-Oct-2016 Instruction Type:Patient Education DISCONTINUED - Glucose, PP/2 Hour (62153) Indication:Family history of diabetes mellitus Start:13-Oct-2016 Instruction Type:Patient Education DISCONTINUED - Hemoglobin Glyclated (HGB A1C) (21475) Indication:Family history of diabetes mellitus Start:13-Oct-2016 Instruction [...] Informa tion Online using Patient Portal and [email or web address] Apps Indication:Nonsmoker Start:26-May-2022 Instruction Type:Patient Education Patient Instructions Indication:Diabetes mellitus type II, controlled, with no complications (Renamed from Controlled type 2 diabetes mellitus without complication) Start:27-Feb-2022 Instruction Type:Provider Instructions for Treatment How to Access Health Informa tion Online using Patient Portal and [email or web address] Apps Indication:Diabetes mellitus type II, controlled, with no complications (Renamed from Controlled type 2 diabetes mellitus without complication) Start:27-Feb-2022 Instruction Type:Patient Education Patient Instructions Indication:BMI 33.0-33.9,adult Start:18-Nov-2021 Instruction Type:Provider Instructions for Treatment How to Access Health Informa tion Online using Patient Portal and [employer] Indication:Diabetes mellitus type II, controlled, with no complications (Renamed from Controlled type 2 diabetes mellitus without complication) Start:18-Nov-2021 Instruction Type:Patient Education Patient Instructions Indication:Vitamin D deficiency Start:13-Aug-2021 Instruction Type:Provider Instructions for Treatment How to Access Health Informa tion Online using Patient Portal and [employer] Indication:BMI 34.0-34.9,adult Start:13-Aug-2021 Instruction Type:Patient Education Patient Instructions Indication:Temporary low platelet count Start:19-Mar-2021 Instruction Type:Provider Instructions for Treatment How to Access Health Informa tion Online using Patient Portal and [employer] Apps Indication:Nonsmoker Start:19-Mar-2021 Instruction Type:Patient Education Patient Instructions Indication:Acute sinusitis Start:24-Feb-2021 Instruction Type:Provider Instructions for Treatment How to Access Health Informa tion Online using Patient Portal and [email or web address] Apps Indication:Acute sinusitis Start:24-Feb-2021 Instruction Type:Patient Education [...] for Treatment How to access health informa [employer] online Indication:Uncontrolled type 2 diabetes mellitus without complication, without long-term current use of insulin Start:09-Dec-2016 Instruction Type:Patient Education How to access health informa [employer] online - Detail Indication:Uncontrolled type 2 diabetes mellitus without complication, without long-term current use of insulin Start:09-Dec-2016 Instruction Type:Patient Education Patient Instructions Indication:Uncontrolled type 2 diabetes mellitus without complication, without long-term current use of insulin Start:09-Dec-2016 Instruction Type:Provider Instructions for Treatment DISCONTINUED - LIPID PANEL ( [id number]) Indication:Hypercholesteremia Start:13-Oct-2016 Instruction Type:Patient Education DISCONTINUED - Glucose, PP/2 Hour ([id number]) Indication:Family history of diabetes mellitus Start:13-Oct-2016 Instruction Type:Patient Education DISCONTINUED - Hemoglobin Glyclated (HGB A1C) (27841) Indication:Family history of diabetes mellitus Start:13-Oct-2016 Instruction Type:Patient Education How to access health [employer] online Indication:Uncontrolled type 2 diabetes mellitus without complication, without long-term current use of insulin Start:13-Oct-2016 Instruction Type:Patient Education How to access health informa [employer] online - Detail Indication:Uncontrolled type 2 diabetes mellitus without complication, without long-term current use of insulin Start:13-Oct-2016 Instruction Type:Patient Education Patient Instructions Indication:Uncontrolled type 2 diabetes mellitus without complication, without long-term current use of insulin Start:13-Oct-2016 Instruction Type:Provider Instructions for Treatment Patient Instructions Indication:Nonsmoker Start:30-Sep-2016 Instruction Type:Provider Instructions for Treatment How to access [employer] Indication:Uncontrolled type 2 diabetes mellitus without complication, [...] tion Online using Patient Portal and [employer] Indication:Nonsmoker Start:07-Jul-2022 Instruction Type:Patient Education Patient Instructions Indication:Nonsmoker Start:26-May-2022 Instruction Type:Provider Instructions for Treatment How to Access Health Informa tion Online using Patient Portal and [employer] Indication:Nonsmoker Start:26-May-2022 Instruction Type:Patient Education Patient Instructions Indication:Diabetes mellitus type II, controlled, with no complications (Renamed from Controlled type 2 diabetes mellitus without complication) Start:27-Feb-2022 Instruction Type:Provider Instructions for Treatment How to Access Health Informa tion Online using Patient Portal and [employer] Indication:Diabetes mellitus type II, controlled, with no complications (Renamed from Controlled type 2 diabetes mellitus without complication) Start:27-Feb-2022 Instruction Type:Patient Education Patient Instructions Indication:BMI 33.0-33.9,adult Start:18-Nov-2021 Instruction Type:Provider Instructions for Treatment How to Access Health Informa tion Online using Patient Portal and [employer] Indication:Diabetes mellitus type II, controlled, with no complications (Renamed from Controlled type 2 diabetes mellitus without complication) Start:18-Nov-2021 Instruction Type:Patient Education Patient Instructions Indication:Vitamin D deficiency Start:13-Aug-2021 Instruction Type:Provider Instructions for Treatment How to Access Health Informa tion Online using Patient Portal and [employer] Indication:BMI 34.0-34.9,adult Start:13-Aug-2021 Instruction Type:Patient Education Patient Instructions Indication:Temporary low platelet count Start:19-Mar-2021 Instruction Type:Provider Instructions for Treatment How to Access Health Informa tion Online using Patient Portal and [employer] Indication:Nonsmoker Start:19-Mar-2021 Instruction Type:Patient Education Patient Instructions Indication:Acute sinusitis Start:24-Feb-2021 Instruction Type:Provider Instructions for Treatment How to Access Health Informa tion Online using Patient Portal and [employer] Indication:Acute sinusitis Start:24-Feb-2021 Instruction Type:Patient Education [...] for Treatment DISCONTINUED - LIPID PANEL ( [id number]) Indication:Hypercholesteremia Start:13-Oct-2016 Instruction Type:Patient Education DISCONTINUED - Glucose, PP/2 Hour (00871) Indication:Family history of diabetes mellitus Start:13-Oct-2016 Instruction Type:Patient Education DISCONTINUED - Hemoglobin Glyclated (HGB A1C) (98592) Indication:Family history of diabetes mellitus Start:13-Oct-2016 Instruction [...] Informa tion Online using Patient Portal and [email or web address] Apps Indication:BMI 33.0-33.9,adult Start:12-Aug-2022 Instruction Type:Patient Education Patient Instructions Start:07-Jul-2022 Instruction Type:Provider Instructions for Treatment How to Access Health Informa tion Online using Patient Portal and [employer] Start:07-Jul-2022 Instruction Type:Patient Education Patient Instructions Start:26-May-2022 Instruction Type:Provider Instructions for Treatment How to Access Health Informa tion Online using Patient Portal and [employer] Start:26-May-2022 Instruction Type:Patient Education Patient Instructions Start:27-Feb-2022 Instruction Type:Provider Instructions for Treatment How to Access Health Informa tion Online using Patient Portal and [employer] Start:27-Feb-2022 Instruction Type:Patient Education Patient Instructions Indication:BMI 33.0-33.9,adult Start:18-Nov-2021 Instruction Type:Provider Instructions for Treatment How to Access Health Informa tion Online using Patient Portal and [employer] Start:18-Nov-2021 Instruction Type:Patient Education Patient Instructions Indication:Vitamin D deficiency Start:13-Aug-2021 Instruction Type:Provider Instructions for Treatment How to Access Health Informa tion Online using Patient Portal and [employer] Indication:BMI 34.0-34.9,adult Start:13-Aug-2021 Instruction Type:Patient Education Patient Instructions Indication:Temporary low platelet count Start:19-Mar-2021 Instruction Type:Provider Instructions for Treatment How to Access Health Informa tion Online using Patient Portal and [employer] Start:19-Mar-2021 Instruction Type:Patient Education Patient Instructions Indication:Acute sinusitis Start:24-Feb-2021 Instruction Type:Provider Instructions for Treatment How to Access Health Informa tion Online using Patient Portal and [employer] Indication:Acute sinusitis Start:24-Feb-2021 Instruction Type:Patient Education [...] for Treatment DISCONTINUED - LIPID PANEL ( [id number]) Indication:Hypercholesteremia Start:13-Oct-2016 Instruction Type:Patient Education DISCONTINUED - Glucose, PP/2 Hour (38803) Indication:Family history of diabetes mellitus Start:13-Oct-2016 Instruction Type:Patient Education DISCONTINUED - Hemoglobin Glyclated (HGB A1C) (13380) Indication:Family history of diabetes mellitus Start:13-Oct-2016 Instruction [...] Informa tion Online using Patient Portal and [employer] [address] Indication:Diabetes mellitus type II, controlled, with no [...] Informa tion Online using Patient Portal and [email or web address] Indication:BMI 33.0-33.9,adult Start:12-Aug-2022 Instruction Type:Patient Education Patient Instructions Indication:Nonsmoker Start:07-Jul-2022 Instruction Type:Provider Instructions for Treatment How to Access Health Informa tion Online using Patient Portal and [email or web address] Indication:Nonsmoker Start:07-Jul-2022 Instruction Type:Patient Education Patient Instructions Indication:Nonsmoker Start:26-May-2022 Instruction Type:Provider Instructions for Treatment How to Access Health Informa tion Online using Patient Portal and [employer] Indication:Nonsmoker Start:26-May-2022 Instruction Type:Patient Education Patient Instructions Indication:Diabetes mellitus type II, controlled, with no complications (Renamed from Controlled type 2 diabetes mellitus without complication) Start:27-Feb-2022 Instruction Type:Provider Instructions for Treatment How to Access Health Informa tion Online using Patient Portal and [employer] Indication:Diabetes mellitus type II, controlled, with no complications (Renamed from Controlled type 2 diabetes mellitus without complication) Start:27-Feb-2022 Instruction Type:Patient Education Patient Instructions Indication:BMI 33.0-33.9,adult Start:18-Nov-2021 Instruction Type:Provider Instructions for Treatment How to Access Health Informa tion Online using Patient Portal and [employer] Indication:Diabetes mellitus type II, controlled, with no complications (Renamed from Controlled type 2 diabetes mellitus without complication) Start:18-Nov-2021 Instruction Type:Patient Education Patient Instructions Indication:Vitamin D deficiency Start:13-Aug-2021 Instruction Type:Provider Instructions for Treatment How to Access Health Informa tion Online using Patient Portal and [employer] Indication:BMI 34.0-34.9,adult Start:13-Aug-2021 Instruction Type:Patient Education Patient Instructions Indication:Temporary low platelet count Start:19-Mar-2021 Instruction Type:Provider Instructions for Treatment How to Access Health Informa tion Online using Patient Portal and [employer] Apps Indication:Nonsmoker Start:19-Mar-2021 Instruction Type:Patient Education Patient Instructions Indication:Acute sinusitis Start:24-Feb-2021 Instruction Type:Provider Instructions for Treatment How to Access Health Informa tion Online using Patient Portal and [employer] Indication:Acute sinusitis Start:24-Feb-2021 Instruction Type:Patient Education [...] for Treatment DISCONTINUED - LIPID PANEL ( [id number]) Indication:Hypercholesteremia Start:13-Oct-2016 Instruction Type:Patient Education DISCONTINUED - Glucose, PP/2 Hour (43608) Indication:Family history of diabetes mellitus Start:13-Oct-2016 Instruction Type:Patient Education DISCONTINUED - Hemoglobin Glyclated (HGB A1C) ([id number]) Indication:Family history of diabetes mellitus Start:13-Oct-2016 Instruction [...] Informa tion Online using Patient Portal and [employer] [address] Indication:Diabetes mellitus type II, controlled, with no [...] Informa tion Online using Patient Portal and [email or web address] Apps Indication:BMI 33.0-33.9,adult Start:12-Aug-2022 Instruction Type:Patient Education Patient Instructions Indication:Nonsmoker Start:07-Jul-2022 Instruction Type:Provider Instructions for Treatment How to Access Health Informa tion Online using Patient Portal and [email or web address] Apps Indication:Nonsmoker Start:07-Jul-2022 Instruction Type:Patient Education Patient Instructions Indication:Nonsmoker Start:26-May-2022 Instruction Type:Provider Instructions for Treatment How to Access Health Informa tion Online using Patient Portal and [employer] Indication:Nonsmoker Start:26-May-2022 Instruction Type:Patient Education Patient Instructions Indication:Diabetes mellitus type II, controlled, with no complications (Renamed from Controlled type 2 diabetes mellitus without complication) Start:27-Feb-2022 Instruction Type:Provider Instructions for Treatment How to Access Health Informa tion Online using Patient Portal and [employer] Indication:Diabetes mellitus type II, controlled, with no complications (Renamed from Controlled type 2 diabetes mellitus without complication) Start:27-Feb-2022 Instruction Type:Patient Education Patient Instructions Indication:BMI 33.0-33.9,adult Start:18-Nov-2021 Instruction Type:Provider Instructions for Treatment How to Access Health Informa tion Online using Patient Portal and [employer] Indication:Diabetes mellitus type II, controlled, with no complications (Renamed from Controlled type 2 diabetes mellitus without complication) Start:18-Nov-2021 Instruction Type:Patient Education Patient Instructions Indication:Vitamin D deficiency Start:13-Aug-2021 Instruction Type:Provider Instructions for Treatment How to Access Health Informa tion Online using Patient Portal and [employer] Apps Indication:BMI 34.0-34.9,adult Start:13-Aug-2021 Instruction Type:Patient Education Patient Instructions Indication:Temporary low platelet count Start:19-Mar-2021 Instruction Type:Provider Instructions for Treatment How to Access Health Informa tion Online using Patient Portal and [employer] Indication:Nonsmoker Start:19-Mar-2021 Instruction Type:Patient Education Patient Instructions Indication:Acute sinusitis Start:24-Feb-2021 Instruction Type:Provider Instructions for Treatment How to Access Health Informa tion Online using Patient Portal and [employer] Indication:Acute sinusitis Start:24-Feb-2021 Instruction Type:Patient Education [...] Instructions for Treatment How to access health [employer] online Indication:Diabetes mellitus type II, controlled, with [...] for Treatment How to access health informa [employer] online Indication:Uncontrolled type 2 diabetes mellitus without [...] for Treatment DISCONTINUED - LIPID PANEL ( [id number]) Indication:Hypercholesteremia Start:13-Oct-2016 Instruction Type:Patient Education DISCONTINUED - Glucose, PP/2 Hour ([id number]) Indication:Family history of diabetes mellitus Start:13-Oct-2016 Instruction Type:Patient Education DISCONTINUED - Hemoglobin Glyclated (HGB A1C) ([id number]) Indication:Family history of diabetes mellitus Start:13-Oct-2016 Instruction [...] Informa tion Online using Patient Portal and [employer] [address] Indication:Diabetes mellitus type II, controlled, with no [...] Informa tion Online using Patient Portal and [email or web address] Indication:BMI 33.0-33.9,adult Start:12-Aug-2022 Instruction Type:Patient Education Patient Instructions Indication:Nonsmoker Start:07-Jul-2022 Instruction Type:Provider Instructions for Treatment How to Access Health Informa tion Online using Patient Portal and [email or web address] Apps Indication:Nonsmoker Start:07-Jul-2022 Instruction Type:Patient Education Patient Instructions Indication:Nonsmoker Start:26-May-2022 Instruction Type:Provider Instructions for Treatment How to Access Health Informa tion Online using Patient Portal and [employer] Indication:Nonsmoker Start:26-May-2022 Instruction Type:Patient Education Patient Instructions Indication:Diabetes mellitus type II, controlled, with no complications (Renamed from Controlled type 2 diabetes mellitus without complication) Start:27-Feb-2022 Instruction Type:Provider Instructions for Treatment How to Access Health Informa tion Online using Patient Portal and [employer] Indication:Diabetes mellitus type II, controlled, with no complications (Renamed from Controlled type 2 diabetes mellitus without complication) Start:27-Feb-2022 Instruction Type:Patient Education Patient Instructions Indication:BMI 33.0-33.9,adult Start:18-Nov-2021 Instruction Type:Provider Instructions for Treatment How to Access Health Informa tion Online using Patient Portal and [employer] Indication:Diabetes mellitus type II, controlled, with no complications (Renamed from Controlled type 2 diabetes mellitus without complication) Start:18-Nov-2021 Instruction Type:Patient Education Patient Instructions Indication:Vitamin D deficiency Start:13-Aug-2021 Instruction Type:Provider Instructions for Treatment How to Access Health Informa tion Online using Patient Portal and [employer] Indication:BMI 34.0-34.9,adult Start:13-Aug-2021 Instruction Type:Patient Education Patient Instructions Indication:Temporary low platelet count Start:19-Mar-2021 Instruction Type:Provider Instructions for Treatment How to Access Health Informa tion Online using Patient Portal and [employer] Indication:Nonsmoker Start:19-Mar-2021 Instruction Type:Patient Education Patient Instructions Indication:Acute sinusitis Start:24-Feb-2021 Instruction Type:Provider Instructions for Treatment How to Access Health Informa tion Online using Patient Portal and [employer] Indication:Acute sinusitis Start:24-Feb-2021 Instruction Type:Patient Education [...] Instructions for Treatment How to access health [employer] online Indication:Diabetes mellitus type II, controlled, with [...] for Treatment How to access health informa [employer] online Indication:Uncontrolled type 2 diabetes mellitus without [...] for Treatment DISCONTINUED - LIPID PANEL ( [id number]) Indication:Hypercholesteremia Start:13-Oct-2016 Instruction Type:Patient Education DISCONTINUED - Glucose, PP/2 Hour ([id number]) Indication:Family history of diabetes mellitus Start:13-Oct-2016 Instruction Type:Patient Education DISCONTINUED - Hemoglobin Glyclated (HGB A1C) ([id number]) Indication:Family history of diabetes mellitus Start:13-Oct-2016 Instruction [...] Informa tion Online using Patient Portal and [employer] [address] Indication:Diabetes mellitus type II, controlled, with no [...] Informa tion Online using Patient Portal and [email or web address] Indication:BMI 33.0-33.9,adult Start:12-Aug-2022 Instruction Type:Patient Education Patient Instructions Indication:Nonsmoker Start:07-Jul-2022 Instruction Type:Provider Instructions for Treatment How to Access Health Informa tion Online using Patient Portal and [email or web address] Apps Indication:Nonsmoker Start:07-Jul-2022 Instruction Type:Patient Education Patient Instructions Indication:Nonsmoker Start:26-May-2022 Instruction Type:Provider Instructions for Treatment How to Access Health Informa tion Online using Patient Portal and [employer] Indication:Nonsmoker Start:26-May-2022 Instruction Type:Patient Education Patient Instructions Indication:Diabetes mellitus type II, controlled, with no complications (Renamed from Controlled type 2 diabetes mellitus without complication) Start:27-Feb-2022 Instruction Type:Provider Instructions for Treatment How to Access Health Informa tion Online using Patient Portal and [employer] Apps Indication:Diabetes mellitus type II, controlled, with no complications (Renamed from Controlled type 2 diabetes mellitus without complication) Start:27-Feb-2022 Instruction Type:Patient Education Patient Instructions Indication:BMI 33.0-33.9,adult Start:18-Nov-2021 Instruction Type:Provider Instructions for Treatment How to Access Health Informa tion Online using Patient Portal and [employer] Indication:Diabetes mellitus type II, controlled, with no complications (Renamed from Controlled type 2 diabetes mellitus without complication) Start:18-Nov-2021 Instruction Type:Patient Education Patient Instructions Indication:Vitamin D deficiency Start:13-Aug-2021 Instruction Type:Provider Instructions for Treatment How to Access Health Informa tion Online using Patient Portal and [employer] Indication:BMI 34.0-34.9,adult Start:13-Aug-2021 Instruction Type:Patient Education Patient Instructions Indication:Temporary low platelet count Start:19-Mar-2021 Instruction Type:Provider Instructions for Treatment How to Access Health Informa tion Online using Patient Portal and [employer] Indication:Nonsmoker Start:19-Mar-2021 Instruction Type:Patient Education Patient Instructions Indication:Acute sinusitis Start:24-Feb-2021 Instruction Type:Provider Instructions for Treatment How to Access Health Informa tion Online using Patient Portal and [employer] Indication:Acute sinusitis Start:24-Feb-2021 Instruction Type:Patient Education [...] Instructions for Treatment How to access health [employer] online Indication:Diabetes mellitus type II, controlled, with [...] for Treatment DISCONTINUED - LIPID PANEL ( [id number]) Indication:Hypercholesteremia Start:13-Oct-2016 Instruction Type:Patient Education DISCONTINUED - Glucose, PP/2 Hour (76383) Indication:Family history of diabetes mellitus Start:13-Oct-2016 Instruction Type:Patient Education DISCONTINUED - Hemoglobin Glyclated (HGB A1C) ([id number]) Indication:Family history of diabetes mellitus Start:13-Oct-2016 Instruction [...] Informa tion Online using Patient Portal and [email or web address] Apps Indication:Diabetes mellitus type II, controlled, with [...] Informa tion Online using Patient Portal and [email or web address] Indication:BMI 33.0-33.9,adult Start:12-Aug-2022 Instruction Type:Patient Education Patient Instructions Indication:Nonsmoker Start:07-Jul-2022 Instruction Type:Provider Instructions for Treatment How to Access Health Informa tion Online using Patient Portal and [email or web address] Indication:Nonsmoker Start:07-Jul-2022 Instruction Type:Patient Education Patient Instructions Indication:Nonsmoker Start:26-May-2022 Instruction Type:Provider Instructions for Treatment How to Access Health Informa tion Online using Patient Portal and [employer] Indication:Nonsmoker Start:26-May-2022 Instruction Type:Patient Education Patient Instructions Indication:Diabetes mellitus type II, controlled, with no complications (Renamed from Controlled type 2 diabetes mellitus without complication) Start:27-Feb-2022 Instruction Type:Provider Instructions for Treatment How to Access Health Informa tion Online using Patient Portal and [employer] Indication:Diabetes mellitus type II, controlled, with no complications (Renamed from Controlled type 2 diabetes mellitus without complication) Start:27-Feb-2022 Instruction Type:Patient Education Patient Instructions Indication:BMI 33.0-33.9,adult Start:18-Nov-2021 Instruction Type:Provider Instructions for Treatment How to Access Health Informa tion Online using Patient Portal and [employer] Indication:Diabetes mellitus type II, controlled, with no complications (Renamed from Controlled type 2 diabetes mellitus without complication) Start:18-Nov-2021 Instruction Type:Patient Education Patient Instructions Indication:Vitamin D deficiency Start:13-Aug-2021 Instruction Type:Provider Instructions for Treatment How to Access Health Informa tion Online using Patient Portal and [employer] Indication:BMI 34.0-34.9,adult Start:13-Aug-2021 Instruction Type:Patient Education Patient Instructions Indication:Temporary low platelet count Start:19-Mar-2021 Instruction Type:Provider Instructions for Treatment How to Access Health Informa tion Online using Patient Portal and [employer] Indication:Nonsmoker Start:19-Mar-2021 Instruction Type:Patient Education Patient Instructions Indication:Acute sinusitis Start:24-Feb-2021 Instruction Type:Provider Instructions for Treatment How to Access Health Informa tion Online using Patient Portal and [employer] Indication:Acute sinusitis Start:24-Feb-2021 Instruction Type:Patient Education [...] for Treatment How to access health informa [employer] online Indication:Diabetes mellitus type II, controlled, with [...] for Treatment DISCONTINUED - LIPID PANEL ( [id number]) Indication:Hypercholesteremia Start:13-Oct-2016 Instruction Type:Patient Education DISCONTINUED - Glucose, PP/2 Hour ([id number]) Indication:Family history of diabetes mellitus Start:13-Oct-2016 Instruction Type:Patient Education DISCONTINUED - Hemoglobin Glyclated (HGB A1C) (24349) Indication:Family history of diabetes mellitus Start:13-Oct-2016 Instruction [...] Informa tion Online using Patient Portal and [employer] Indication:Type 2 diabetes mellitus with hemoglobin A1c goal of less than 7.0% Start:19-Jan-2023 Instruction Type:Patient Education How to Access Health Informa tion Online using Patient Portal and [employer] Indication:Type 2 diabetes mellitus with hemoglobin A1c goal of less than 7.0% Start:22-Sep-2022 Instruction Type:Patient Education Patient Instructions Indication:Type 2 diabetes mellitus with hemoglobin A1c goal of less than 7.0% Start:22-Sep-2022 Instruction Type:Provider Instructions for Treatment Patient Instructions Indication:BMI 33.0-33.9,adult Start:12-Aug-2022 Instruction Type:Provider Instructions for Treatment How to Access Health Informa tion Online using Patient Portal and [employer] Indication:BMI 33.0-33.9,adult Start:12-Aug-2022 Instruction Type:Patient Education Patient Instructions Indication:Nonsmoker Start:07-Jul-2022 Instruction Type:Provider Instructions for Treatment How to Access Health Informa tion Online using Patient Portal and [employer] Indication:Nonsmoker Start:07-Jul-2022 Instruction Type:Patient Education Patient Instructions Indication:Nonsmoker Start:26-May-2022 Instruction Type:Provider Instructions for Treatment How to Access Health Informa tion Online using Patient Portal and [employer] Indication:Nonsmoker Start:26-May-2022 Instruction Type:Patient Education Patient Instructions Indication:Type 2 diabetes mellitus with hemoglobin A1c goal of less than 7.0% Start:27-Feb-2022 Instruction Type:Provider Instructions for Treatment How to Access Health Informa tion Online using Patient Portal and [employer] Indication:Type 2 diabetes mellitus with hemoglobin A1c goal of less than 7.0% Start:27-Feb-2022 Instruction Type:Patient Education Patient Instructions Indication:BMI 33.0-33.9,adult Start:18-Nov-2021 Instruction Type:Provider Instructions for Treatment How to Access Health Informa tion Online using Patient Portal and [employer] Indication:Type 2 diabetes mellitus with hemoglobin A1c goal of less than 7.0% Start:18-Nov-2021 Instruction Type:Patient Education Patient Instructions Indication:Vitamin D deficiency Start:13-Aug-2021 Instruction Type:Provider Instructions for Treatment How to Access Health Informa tion Online using Patient Portal and [employer] Indication:BMI 34.0-34.9,adult Start:13-Aug-2021 Instruction Type:Patient Education Patient Instructions Indication:Temporary low platelet count Start:19-Mar-2021 Instruction Type:Provider Instructions for Treatment How to Access Health Informa tion Online using Patient Portal and [employer] Indication:Nonsmoker Start:19-Mar-2021 Instruction Type:Patient Education Patient Instructions Indication:Acute sinusitis Start:24-Feb-2021 Instruction Type:Provider Instructions for Treatment How to Access Health Informa tion Online using Patient Portal and [employer] Indication:Acute sinusitis Start:24-Feb-2021 Instruction Type:Patient Education [...] for Treatment How to access health informa [employer] online Indication:Uncontrolled type 2 diabetes mellitus without [...] for Treatment How to access health informa [employer] online Indication:Uncontrolled type 2 diabetes mellitus without [...] for Treatment DISCONTINUED - LIPID PANEL ( [id number]) Indication:Hypercholesteremia Start:13-Oct-2016 Instruction Type:Patient Education DISCONTINUED - Glucose, PP/2 Hour (60096) Indication:Family history of diabetes mellitus Start:13-Oct-2016 Instruction Type:Patient Education DISCONTINUED - Hemoglobin Glyclated (HGB A1C) (94334) Indication:Family history of diabetes mellitus Start:13-Oct-2016 Instruction [...] tion Online using Patient Portal and [employer] Indication:Type 2 diabetes mellitus with hemoglobin A1c goal of less than 7.0% Start:19-Jan-2023 Instruction Type:Patient Education How to Access Health Informa tion Online using Patient Portal and [email or web address] Indication:Type 2 diabetes mellitus with hemoglobin A1c goal of less than 7.0% Start:22-Sep-2022 Instruction Type:Patient Education Patient Instructions Indication:Type 2 diabetes mellitus with hemoglobin A1c goal of less than 7.0% Start:22-Sep-2022 Instruction Type:Provider Instructions for Treatment Patient Instructions Indication:BMI 33.0-33.9,adult Start:12-Aug-2022 Instruction Type:Provider Instructions for Treatment How to Access Health Informa tion Online using Patient Portal and [employer] Indication:BMI 33.0-33.9,adult Start:12-Aug-2022 Instruction Type:Patient Education Patient Instructions Indication:Nonsmoker Start:07-Jul-2022 Instruction Type:Provider Instructions for Treatment How to Access Health Informa tion Online using Patient Portal and [employer] Indication:Nonsmoker Start:07-Jul-2022 Instruction Type:Patient Education Patient Instructions Indication:Nonsmoker Start:26-May-2022 Instruction Type:Provider Instructions for Treatment How to Access Health Informa tion Online using Patient Portal and [employer] Indication:Nonsmoker Start:26-May-2022 Instruction Type:Patient Education Patient Instructions Indication:Type 2 diabetes mellitus with hemoglobin A1c goal of less than 7.0% Start:27-Feb-2022 Instruction Type:Provider Instructions for Treatment How to Access Health Informa tion Online using Patient Portal and [employer] Indication:Type 2 diabetes mellitus with hemoglobin A1c goal of less than 7.0% Start:27-Feb-2022 Instruction Type:Patient Education Patient Instructions Indication:BMI 33.0-33.9,adult Start:18-Nov-2021 Instruction Type:Provider Instructions for Treatment How to Access Health Informa tion Online using Patient Portal and [employer] Indication:Type 2 diabetes mellitus with hemoglobin A1c goal of less than 7.0% Start:18-Nov-2021 Instruction Type:Patient Education Patient Instructions Indication:Vitamin D deficiency Start:13-Aug-2021 Instruction Type:Provider Instructions for Treatment How to Access Health Informa tion Online using Patient Portal and [employer] Indication:BMI 34.0-34.9,adult Start:13-Aug-2021 Instruction Type:Patient Education Patient Instructions Indication:Temporary low platelet count Start:19-Mar-2021 Instruction Type:Provider Instructions for Treatment How to Access Health Informa tion Online using Patient Portal and [employer] Indication:Nonsmoker Start:19-Mar-2021 Instruction Type:Patient Education Patient Instructions Indication:Acute sinusitis Start:24-Feb-2021 Instruction Type:Provider Instructions for Treatment How to Access Health Informa tion Online using Patient Portal and [employer] Indication:Acute sinusitis Start:24-Feb-2021 Instruction Type:Patient Education [...] for Treatment DISCONTINUED - LIPID PANEL ( [id number]) Indication:Hypercholesteremia Start:13-Oct-2016 Instruction Type:Patient Education DISCONTINUED - Glucose, PP/2 Hour (06536) Indication:Family history of diabetes mellitus Start:13-Oct-2016 Instruction Type:Patient Education DISCONTINUED - Hemoglobin Glyclated (HGB A1C) (54545) Indication:Family history of diabetes mellitus Start:13-Oct-2016 Instruction Type:Patient Education How to access health informa [employer] online Indication:Uncontrolled type 2 diabetes mellitus without [...] tion Online using Patient Portal and [employer] Indication:Type 2 diabetes mellitus with hemoglobin A1c goal of less than 7.0% Start:19-Jan-2023 Instruction Type:Patient Education How to Access Health Informa tion Online using Patient Portal and [employer] Indication:Type 2 diabetes mellitus with hemoglobin A1c goal of less than 7.0% Start:22-Sep-2022 Instruction Type:Patient Education Patient Instructions Indication:Type 2 diabetes mellitus with hemoglobin A1c goal of less than 7.0% Start:22-Sep-2022 Instruction Type:Provider Instructions for Treatment Patient Instructions Indication:BMI 33.0-33.9,adult Start:12-Aug-2022 Instruction Type:Provider Instructions for Treatment How to Access Health Informa tion Online using Patient Portal and [employer] Indication:BMI 33.0-33.9,adult Start:12-Aug-2022 Instruction Type:Patient Education Patient Instructions Indication:Nonsmoker Start:07-Jul-2022 Instruction Type:Provider Instructions for Treatment How to Access Health Informa tion Online using Patient Portal and [employer] Indication:Nonsmoker Start:07-Jul-2022 Instruction Type:Patient Education Patient Instructions Indication:Nonsmoker Start:26-May-2022 Instruction Type:Provider Instructions for Treatment How to Access Health Informa tion Online using Patient Portal and [employer] Indication:Nonsmoker Start:26-May-2022 Instruction Type:Patient Education Patient Instructions Indication:Type 2 diabetes mellitus with hemoglobin A1c goal of less than 7.0% Start:27-Feb-2022 Instruction Type:Provider Instructions for Treatment How to Access Health Informa tion Online using Patient Portal and [employer] Indication:Type 2 diabetes mellitus with hemoglobin A1c goal of less than 7.0% Start:27-Feb-2022 Instruction Type:Patient Education Patient Instructions Indication:BMI 33.0-33.9,adult Start:18-Nov-2021 Instruction Type:Provider Instructions for Treatment How to Access Health Informa tion Online using Patient Portal and [employer] Indication:Type 2 diabetes mellitus with hemoglobin A1c goal of less than 7.0% Start:18-Nov-2021 Instruction Type:Patient Education Patient Instructions Indication:Vitamin D deficiency Start:13-Aug-2021 Instruction Type:Provider Instructions for Treatment How to Access Health Informa tion Online using Patient Portal and [employer] Indication:BMI 34.0-34.9,adult Start:13-Aug-2021 Instruction Type:Patient Education Patient Instructions Indication:Temporary low platelet count Start:19-Mar-2021 Instruction Type:Provider Instructions for Treatment How to Access Health Informa tion Online using Patient Portal and [email or web address] Apps Indication:Nonsmoker Start:19-Mar-2021 Instruction Type:Patient Education Patient Instructions Indication:Acute sinusitis Start:24-Feb-2021 Instruction Type:Provider Instructions for Treatment How to Access Health Informa tion Online using Patient Portal and [email or web address] Apps Indication:Acute sinusitis Start:24-Feb-2021 Instruction Type:Patient Education [...] for Treatment How to access health informa [employer] online Indication:Uncontrolled type 2 diabetes mellitus without [...] for Treatment DISCONTINUED - LIPID PANEL ( [id number]) Indication:Hypercholesteremia Start:13-Oct-2016 Instruction Type:Patient Education DISCONTINUED - Glucose, PP/2 Hour (39319) Indication:Family history of diabetes mellitus Start:13-Oct-2016 Instruction Type:Patient Education DISCONTINUED - Hemoglobin Glyclated (HGB A1C) (89452) Indication:Family history of diabetes mellitus Start:13-Oct-2016 Instruction Type:Patient Education How to access health informa [employer] online Indication:Uncontrolled type 2 diabetes mellitus without [...] for Treatment How to access health informa [employer] online Indication:Uncontrolled type 2 diabetes mellitus without complication, without long-term current use of insulin Start:30-Sep-2016 Instruction Type:Patient Education How to access health informa [employer] online - Detail Indication:Uncontrolled type 2 diabetes [...] tion Online using Patient Portal and [employer] Apps Indication:Type 2 diabetes mellitus with hemoglobin A1c goal of less than 7.0% Start:19-Jan-2023 Instruction Type:Patient Education How to Access Health Informa tion Online using Patient Portal and [employer] Apps Indication:Type 2 diabetes mellitus with hemoglobin A1c goal of less than 7.0% Start:22-Sep-2022 Instruction Type:Patient Education Patient Instructions Indication:Type 2 diabetes mellitus with hemoglobin A1c goal of less than 7.0% Start:22-Sep-2022 Instruction Type:Provider Instructions for Treatment Patient Instructions Indication:BMI 33.0-33.9,adult Start:12-Aug-2022 Instruction Type:Provider Instructions for Treatment How to Access Health Informa tion Online using Patient Portal and [employer] Indication:BMI 33.0-33.9,adult Start:12-Aug-2022 Instruction Type:Patient Education Patient Instructions Indication:Nonsmoker Start:07-Jul-2022 Instruction Type:Provider Instructions for Treatment How to Access Health Informa tion Online using Patient Portal and [employer] Apps Indication:Nonsmoker Start:07-Jul-2022 Instruction Type:Patient Education Patient Instructions Indication:Nonsmoker Start:26-May-2022 Instruction Type:Provider Instructions for Treatment How to Access Health Informa tion Online using Patient Portal and [employer] Apps Indication:Nonsmoker Start:26-May-2022 Instruction Type:Patient Education Patient Instructions Indication:Type 2 diabetes mellitus with hemoglobin A1c goal of less than 7.0% Start:27-Feb-2022 Instruction Type:Provider Instructions for Treatment How to Access Health Informa tion Online using Patient Portal and [employer] Apps Indication:Type 2 diabetes mellitus with hemoglobin A1c goal of less than 7.0% Start:27-Feb-2022 Instruction Type:Patient Education Patient Instructions Indication:BMI 33.0-33.9,adult Start:18-Nov-2021 Instruction Type:Provider Instructions for Treatment How to Access Health Informa tion Online using Patient Portal and [employer] Indication:Type 2 diabetes mellitus with hemoglobin A1c goal of less than 7.0% Start:18-Nov-2021 Instruction Type:Patient Education Patient Instructions Indication:Vitamin D deficiency Start:13-Aug-2021 Instruction Type:Provider Instructions for Treatment How to Access Health Informa tion Online using Patient Portal and [email or web address] Apps Indication:BMI 34.0-34.9,adult Start:13-Aug-2021 Instruction Type:Patient Education Patient Instructions Indication:Temporary low platelet count Start:19-Mar-2021 Instruction Type:Provider Instructions for Treatment How to Access Health Informa tion Online using Patient Portal and [email or web address] Apps Indication:Nonsmoker Start:19-Mar-2021 Instruction Type:Patient Education Patient Instructions Indication:Acute sinusitis Start:24-Feb-2021 Instruction Type:Provider Instructions for Treatment How to Access Health Informa tion Online using Patient Portal and [email or web address] Apps Indication:Acute sinusitis Start:24-Feb-2021 Instruction Type:Patient Education [...] for Treatment DISCONTINUED - LIPID PANEL ( [id number]) Indication:Hypercholesteremia Start:13-Oct-2016 Instruction Type:Patient Education DISCONTINUED - Glucose, PP/2 Hour ([id number]) Indication:Family history of diabetes mellitus Start:13-Oct-2016 Instruction Type:Patient Education DISCONTINUED - Hemoglobin Glyclated (HGB A1C) (42102) Indication:Family history of diabetes mellitus Start:13-Oct-2016 Instruction [...] Instructions for Treatment How to Access Health [employer] Online using Patient Portal and [employer] Apps Indication:BMI 32.0-32.9,adult Start:20-Jul-2023 Instruction Type:Patient Education Patient Instructions Indication:Type 2 diabetes mellitus with hemoglobin A1c goal of less than 7.0% Start:19-Jan-2023 Instruction Type:Provider Instructions for Treatment How to Access Health Informa tion Online using Patient Portal and [employer] Apps Indication:Type 2 diabetes mellitus with hemoglobin A1c goal of less than 7.0% Start:19-Jan-2023 Instruction Type:Patient Education How to Access Health Informa tion Online using Patient Portal and [employer] Apps Indication:Type 2 diabetes mellitus with hemoglobin A1c goal of less than 7.0% Start:22-Sep-2022 Instruction Type:Patient Education Patient Instructions Indication:Type 2 diabetes mellitus with hemoglobin A1c goal of less than 7.0% Start:22-Sep-2022 Instruction Type:Provider Instructions for Treatment Patient Instructions Indication:BMI 33.0-33.9,adult Start:12-Aug-2022 Instruction Type:Provider Instructions for Treatment How to Access Health Informa tion Online using Patient Portal and [employer] Indication:BMI 33.0-33.9,adult Start:12-Aug-2022 Instruction Type:Patient Education Patient Instructions Indication:Nonsmoker Start:07-Jul-2022 Instruction Type:Provider Instructions for Treatment How to Access Health Informa tion Online using Patient Portal and [employer] Indication:Nonsmoker Start:07-Jul-2022 Instruction Type:Patient Education Patient Instructions Indication:Nonsmoker Start:26-May-2022 Instruction Type:Provider Instructions for Treatment How to Access Health Informa tion Online using Patient Portal and [employer] Indication:Nonsmoker Start:26-May-2022 Instruction Type:Patient Education Patient Instructions Indication:Type 2 diabetes mellitus with hemoglobin A1c goal of less than 7.0% Start:27-Feb-2022 Instruction Type:Provider Instructions for Treatment How to Access Health Informa tion Online using Patient Portal and [employer] Apps Indication:Type 2 diabetes mellitus with hemoglobin A1c goal of less than 7.0% Start:27-Feb-2022 Instruction Type:Patient Education Patient Instructions Indication:BMI 33.0-33.9,adult Start:18-Nov-2021 Instruction Type:Provider Instructions for Treatment How to Access Health Informa tion Online using Patient Portal and [employer] Indication:Type 2 diabetes mellitus with hemoglobin A1c goal of less than 7.0% Start:18-Nov-2021 Instruction Type:Patient Education Patient Instructions Indication:Vitamin D deficiency Start:13-Aug-2021 Instruction Type:Provider Instructions for Treatment How to Access Health Informa tion Online using Patient Portal and [employer] Indication:BMI 34.0-34.9,adult Start:13-Aug-2021 Instruction Type:Patient Education Patient Instructions Indication:Temporary low platelet count Start:19-Mar-2021 Instruction Type:Provider Instructions for Treatment How to Access Health Informa tion Online using Patient Portal and [employer] Apps Indication:Nonsmoker Start:19-Mar-2021 Instruction Type:Patient Education Patient Instructions Indication:Acute sinusitis Start:24-Feb-2021 Instruction Type:Provider Instructions for Treatment How to Access Health Informa tion Online using Patient Portal and [employer] Indication:Acute sinusitis Start:24-Feb-2021 Instruction Type:Patient Education [...] for Treatment DISCONTINUED - LIPID PANEL ( [id number]) Indication:Hypercholesteremia Start:13-Oct-2016 Instruction Type:Patient Education DISCONTINUED - Glucose, PP/2 Hour (60067) Indication:Family history of diabetes mellitus Start:13-Oct-2016 Instruction Type:Patient Education DISCONTINUED - Hemoglobin Glyclated (HGB A1C) (19807) Indication:Family history of diabetes mellitus Start:13-Oct-2016 Instruction [...] Informa tion Online using Patient Portal and [employer] Apps Indication:BMI 32.0-32.9,adult Start:20-Jul-2023 Instruction Type:Patient Education Patient Instructions Indication:Type 2 diabetes mellitus with hemoglobin A1c goal of less than 7.0% Start:19-Jan-2023 Instruction Type:Provider Instructions for Treatment How to Access Health Informa tion Online using Patient Portal and [employer] Indication:Type 2 diabetes mellitus with hemoglobin A1c goal of less than 7.0% Start:19-Jan-2023 Instruction Type:Patient Education How to Access Health Informa tion Online using Patient Portal and [employer] Apps Indication:Type 2 diabetes mellitus with hemoglobin A1c goal of less than 7.0% Start:22-Sep-2022 Instruction Type:Patient Education Patient Instructions Indication:Type 2 diabetes mellitus with hemoglobin A1c goal of less than 7.0% Start:22-Sep-2022 Instruction Type:Provider Instructions for Treatment Patient Instructions Indication:BMI 33.0-33.9,adult Start:12-Aug-2022 Instruction Type:Provider Instructions for Treatment How to Access Health Informa tion Online using Patient Portal and [employer] Indication:BMI 33.0-33.9,adult Start:12-Aug-2022 Instruction Type:Patient Education Patient Instructions Indication:Nonsmoker Start:07-Jul-2022 Instruction Type:Provider Instructions for Treatment How to Access Health Informa tion Online using Patient Portal and [employer] Indication:Nonsmoker Start:07-Jul-2022 Instruction Type:Patient Education Patient Instructions Indication:Nonsmoker Start:26-May-2022 Instruction Type:Provider Instructions for Treatment How to Access Health Informa tion Online using Patient Portal and [employer] Indication:Nonsmoker Start:26-May-2022 Instruction Type:Patient Education Patient Instructions Indication:Type 2 diabetes mellitus with hemoglobin A1c goal of less than 7.0% Start:27-Feb-2022 Instruction Type:Provider Instructions for Treatment How to Access Health Informa tion Online using Patient Portal and [employer] Indication:Type 2 diabetes mellitus with hemoglobin A1c goal of less than 7.0% Start:27-Feb-2022 Instruction Type:Patient Education Patient Instructions Indication:BMI 33.0-33.9,adult Start:18-Nov-2021 Instruction Type:Provider Instructions for Treatment How to Access Health Informa tion Online using Patient Portal and [employer] Indication:Type 2 diabetes mellitus with hemoglobin A1c goal of less than 7.0% Start:18-Nov-2021 Instruction Type:Patient Education Patient Instructions Indication:Vitamin D deficiency Start:13-Aug-2021 Instruction Type:Provider Instructions for Treatment How to Access Health Informa tion Online using Patient Portal and [employer] Indication:BMI 34.0-34.9,adult Start:13-Aug-2021 Instruction Type:Patient Education Patient Instructions Indication:Temporary low platelet count Start:19-Mar-2021 Instruction Type:Provider Instructions for Treatment How to Access Health Informa tion Online using Patient Portal and [employer] Indication:Nonsmoker Start:19-Mar-2021 Instruction Type:Patient Education Patient Instructions Indication:Acute sinusitis Start:24-Feb-2021 Instruction Type:Provider Instructions for Treatment How to Access Health Informa tion Online using Patient Portal and [employer] Indication:Acute sinusitis Start:24-Feb-2021 Instruction Type:Patient Education [...] for Treatment DISCONTINUED - LIPID PANEL ( [id number]) Indication:Hypercholesteremia Start:13-Oct-2016 Instruction Type:Patient Education DISCONTINUED - Glucose, PP/2 Hour ([id number]) Indication:Family history of diabetes mellitus Start:13-Oct-2016 Instruction Type:Patient Education DISCONTINUED - Hemoglobin Glyclated (HGB A1C) (89179) Indication:Family history of diabetes mellitus Start:13-Oct-2016 Instruction Type:Patient Education How to access health [employer] Indication:Uncontrolled type 2 diabetes mellitus without complication, [...] Instructions for Treatment How to access health [employer] Indication:Uncontrolled type 2 diabetes mellitus without complication, [...] for referral (narrative)No reason for referral information availableW[facility] Work Phone: Summary Purpose Family History No [...] Records Found Name Dates Details Immunization Registry [place] - Effective on 03/19/2021. Expiration date unspecified Effective:19-Mar-2021 Name Dates Details Immunization Registry [place] - Effective on 03/19/2021. Expiration date unspecified Effective:19-Mar-2021 Name Dates Details Immunization Registry [place] - Effective on 03/19/2021. Expiration date unspecified Effective:19-Mar-2021 Name Dates Details Immunization Registry [place] - Effective on 03/19/2021. Expiration date unspecified Effective:19-Mar-2021 Name Dates Details Immunization Registry [place] - Effective on 03/19/2021. Expiration date unspecified Effective:19-Mar-2021 Name Dates Details Immunization Registry [place] - Effective on 03/19/2021. Expiration date unspecified Effective:19-Mar-2021 Name Dates Details Immunization Registry [place] - Effective on 03/19/2021. Expiration date unspecified Effective:19-Mar-2021 Name Dates Details Immunization Registry [place] - Effective on 03/19/2021. 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 Expiration date unspecified Effective:19-Mar-2021 Name Dates Details Immunization Registry [place] - Effective on 03/19/2021. Expiration date unspecified Effective:19-Mar-2021 Name Dates Details Immunization Registry [place] - Effective on 03/19/2021. Expiration date unspecified Effective:19-Mar-2021 Name Dates Details Immunization Registry [place] - Effective on 03/19/2021. Expiration date unspecified Effective:19-Mar-2021 Name Dates Details Immunization Registry [place] - Effective on 03/19/2021. Expiration date unspecified Effective:19-Mar-2021 Name Dates Details Immunization Registry [place] - Effective on 03/19/2021. Expiration date unspecified Effective:19-Mar-2021 Name Dates Details Immunization Registry [place] - Effective on 03/19/2021. Expiration date unspecified Effective:19-Mar-2021 Name Dates Details Immunization Registry [place] - Effective on 03/19/2021. Expiration date unspecified Effective:19-Mar-2021 Name Dates Details Immunization Registry [place] - Effective on 03/19/2021. Expiration date unspecified Effective:19-Mar-2021 Name Dates Details Immunization Registry [place] - Effective on 03/19/2021. Expiration date unspecified Effective:19-Mar-2021 Name Dates Details Immunization Registry [place] - Effective on 03/19/2021. Expiration date unspecified Effective:19-Mar-2021 Name Dates Details Immunization Registry [place] - Effective on 03/19/2021. Expiration date unspecified Effective:19-Mar-2021 Name Dates Details Immunization Registry [place] - Effective on 03/19/2021. Expiration date unspecified Effective:19-Mar-2021 Advance Directive Response Recorded Date/ Time Do you have a Healthcare Power of Mobile Product Manager? Yes May 31, 2025 10:43am Instructions Name [...] Hypercholesteremia : DISCONT INUED - LIPID PANEL ([id number]) Indication:Hypercholesteremia Family history of diabetes m claudine : DISCONTINUED - Glucose, PP/2 Hour (13917) Indication:Family history of diabetes mellitus Family history of diabetes m ellitus : DISCONTINUED - Hemoglobin Glyclated (HGB A1C) (46835) Indication:Family history of diabetes mellitus Hypothyroid : [...] Hypercholesteremia : DISCONT INUED - LIPID PANEL ([id number]) Indication:Hypercholesteremia Family history of diabetes m ellitus : DISCONTINUED - Glucose, PP/2 Hour (19925) Indication:Family history of diabetes mellitus Family history of diabetes m ellitus : DISCONTINUED - Hemoglobin Glyclated (HGB A1C) (49473) Indication:Family history of diabetes mellitus Hypothyroid : [...] Hypercholesteremia : DISCONT INUED - LIPID PANEL ([id number]) Indication:Hypercholesteremia Family history of diabetes m ellitus : DISCONTINUED - Glucose, PP/2 Hour (87456) Indication:Family history of diabetes mellitus Family history of diabetes m ellitus : DISCONTINUED - Hemoglobin Glyclated (HGB A1C) (64359) Indication:Family history of diabetes mellitus Family history [...] Hypercholesteremia : DISCONT INUED - LIPID PANEL ([id number]) Indication:Hypercholesteremia Family history of diabetes m ellitus : DISCONTINUED - Glucose, PP/2 Hour (04279) Indication:Family history of diabetes mellitus Family history of diabetes m ellitus : DISCONTINUED - Hemoglobin Glyclated (HGB A1C) (42060) Indication:Family history of diabetes mellitus Family history [...] Hypercholesteremia : DISCONT INUED - LIPID PANEL ([id number]) Indication:Hypercholesteremia Family history of diabetes m ellitus : DISCONTINUED - Glucose, PP/2 Hour (45957) Indication:Family history of diabetes mellitus Family history of diabetes m ellitus : DISCONTINUED - Hemoglobin Glyclated (HGB A1C) (95872) Indication:Family history of diabetes mellitus Family history [...] Hypercholesteremia : DISCONT INUED - LIPID PANEL ([id number]) Indication:Hypercholesteremia Family history of diabetes m ellitus : DISCONTINUED - Glucose, PP/2 Hour (69877) Indication:Family history of diabetes mellitus Family history of diabetes m ellitus : DISCONTINUED - Hemoglobin Glyclated (HGB A1C) (07022) Indication:Family history of diabetes mellitus Family history [...] for Treatment DISCONTINUED - LIPID PANEL ( [id number]) Indication:Hypercholesteremia Start:13-Oct-2016 Instruction Type:Patient Education DISCONTINUED - Glucose, PP/2 Hour (45443) Indication:Family history of diabetes mellitus Start:13-Oct-2016 Instruction Type:Patient Education DISCONTINUED - Hemoglobin Glyclated (HGB A1C) (66856) Indication:Family history of diabetes mellitus Start:13-Oct-2016 Instruction Type:Patient Education How to access health informa [employer] online Indication:Uncontrolled type 2 diabetes mellitus without complication, without long-term current use of insulin Start:13-Oct-2016 Instruction Type:Patient Education How to access health informa [employer] online - Detail Indication:Uncontrolled type 2 diabetes mellitus without complication, without long-term current use of insulin Start:13-Oct-2016 Instruction Type:Patient Education Patient Instructions Indication:Uncontrolled type 2 diabetes mellitus without complication, without long-term current use of insulin Start:13-Oct-2016 Instruction Type:Provider Instructions for Treatment Patient Instructions Indication:Nonsmoker Start:30-Sep-2016 Instruction Type:Provider Instructions for Treatment How to access health informa [employer] Indication:Uncontrolled type 2 diabetes mellitus without complication, without long-term current use of insulin Start:30-Sep-2016 Instruction Type:Patient Education How to access health informa [employer] online - Detail Indication:Uncontrolled type 2 diabetes mellitus without complication, without long-term current use of insulin Start:30-Sep-2016 Instruction Type:Patient Education Patient Instructions Indication:Hypothyroid Start:28-Aug-2013 Instruction Type:Provider Instructions for Treatment Patient Instructions Indication:Family history of diabetes mellitus Start:06-Mar-2013 Instruction Type:Provider Instructions for Treatment Name Dates Details How to access health [employer] Indication:Nonsmoker Start:03-Apr-2019 Instruction Type:Patient Education How to access health informa [employer] online - Detail Indication:Nonsmoker Start:03-Apr-2019 Instruction Type:Patient Education Patient Instructions Indication:Nonsmoker Start:03-Apr-2019 Instruction Type:Provider Instructions for Treatment How to access health [employer] [employer] Indication:Diabetes mellitus type 2, uncontrolled (Renamed from [...] for Treatment DISCONTINUED - LIPID PANEL ( [id number]) Indication:Hypercholesteremia Start:13-Oct-2016 Instruction Type:Patient Education DISCONTINUED - Glucose, PP/2 Hour (92742) Indication:Family history of diabetes mellitus Start:13-Oct-2016 Instruction Type:Patient Education DISCONTINUED - Hemoglobin Glyclated (HGB A1C) (51055) Indication:Family history of diabetes mellitus Start:13-Oct-2016 Instruction Type:Patient Education How to access health informa [employer] online Indication:Uncontrolled type 2 diabetes mellitus without [...] for Treatment DISCONTINUED - LIPID PANEL ( [id number]) Indication:Hypercholesteremia Start:13-Oct-2016 Instruction Type:Patient Education DISCONTINUED - Glucose, PP/2 Hour (83438) Indication:Family history of diabetes mellitus Start:13-Oct-2016 Instruction Type:Patient Education DISCONTINUED - Hemoglobin Glyclated (HGB A1C) (27579) Indication:Family history of diabetes mellitus Start:13-Oct-2016 Instruction Type:Patient Education How to access health informa [employer] online Indication:Uncontrolled type 2 diabetes mellitus without [...] for Treatment How to access health informa [employer] online Indication:Uncontrolled type 2 diabetes mellitus without [...] Dates Details How to access health informa [employer] online Indication:Diabetes mellitus type II, controlled, with [...] Instructions for Treatment How to access health [employer] online Indication:Nonsmoker Start:03-Apr-2019 Instruction Type:Patient Education How to access health informa [employer] online - Detail Indication:Nonsmoker Start:03-Apr-2019 Instruction Type:Patient [...] for Treatment DISCONTINUED - LIPID PANEL ( [id number]) Indication:Hypercholesteremia Start:13-Oct-2016 Instruction Type:Patient Education DISCONTINUED - Glucose, PP/2 Hour (02336) Indication:Family history of diabetes mellitus Start:13-Oct-2016 Instruction Type:Patient Education DISCONTINUED - Hemoglobin Glyclated (HGB A1C) (26699) Indication:Family history of diabetes mellitus Start:13-Oct-2016 Instruction [...] Instructions for Treatment How to access health [employer] Indication:Uncontrolled type 2 diabetes mellitus without complication, without long-term current use of insulin Start:09-Dec-2016 Instruction Type:Patient Education How to access health informa [employer] online - Detail Indication:Uncontrolled type 2 diabetes mellitus without complication, without long-term current use of insulin Start:09-Dec-2016 Instruction Type:Patient Education Patient Instructions Indication:Uncontrolled type 2 diabetes mellitus without complication, without long-term current use of insulin Start:09-Dec-2016 Instruction Type:Provider Instructions for Treatment DISCONTINUED - LIPID PANEL ( [id number]) Indication:Hypercholesteremia Start:13-Oct-2016 Instruction Type:Patient Education DISCONTINUED - Glucose, PP/2 Hour (37810) Indication:Family history of diabetes mellitus Start:13-Oct-2016 Instruction Type:Patient Education DISCONTINUED - Hemoglobin Glyclated (HGB A1C) (90996) Indication:Family history of diabetes mellitus Start:13-Oct-2016 Instruction Type:Patient Education How to access health [employer] online Indication:Uncontrolled type 2 diabetes mellitus without complication, without long-term current use of insulin Start:13-Oct-2016 Instruction Type:Patient Education How to access health informa [employer] online - Detail Indication:Uncontrolled type 2 diabetes mellitus without complication, without long-term current use of insulin Start:13-Oct-2016 Instruction Type:Patient Education Patient Instructions Indication:Uncontrolled type 2 diabetes mellitus without complication, without long-term current use of insulin Start:13-Oct-2016 Instruction Type:Provider Instructions for Treatment Patient Instructions Indication:Nonsmoker Start:30-Sep-2016 Instruction Type:Provider Instructions for Treatment How to access health [employer] online Indication:Uncontrolled type 2 diabetes mellitus without complication, without long-term current use of insulin Start:30-Sep-2016 Instruction Type:Patient Education How to access health informa [employer] online - Detail Indication:Uncontrolled type 2 diabetes [...] for Treatment DISCONTINUED - LIPID PANEL ( [id number]) Indication:Hypercholesteremia Start:13-Oct-2016 Instruction Type:Patient Education DISCONTINUED - Glucose, PP/2 Hour ([id number]) Indication:Family history of diabetes mellitus Start:13-Oct-2016 Instruction Type:Patient Education DISCONTINUED - Hemoglobin Glyclated (HGB A1C) ([id number]) Indication:Family history of diabetes mellitus Start:13-Oct-2016 Instruction [...] Instructions for Treatment How to access health [employer] online Indication:Uncontrolled type 2 diabetes mellitus without [...] for Treatment How to access health informa [employer] online Indication:Uncontrolled type 2 diabetes mellitus without [...] for Treatment DISCONTINUED - LIPID PANEL ( [id number]) Indication:Hypercholesteremia Start:13-Oct-2016 Instruction Type:Patient Education DISCONTINUED - Glucose, PP/2 Hour (81792) Indication:Family history of diabetes mellitus Start:13-Oct-2016 Instruction Type:Patient Education DISCONTINUED - Hemoglobin Glyclated (HGB A1C) ([id number]) Indication:Family history of diabetes mellitus Start:13-Oct-2016 Instruction Type:Patient Education How to access health informa [employer] online Indication:Uncontrolled type 2 diabetes mellitus without [...] for Treatment How to access health informa [employer] Indication:Uncontrolled type 2 diabetes mellitus without complication, without long-term current use of insulin Start:09-Dec-2016 Instruction Type:Patient Education How to access health informa [employer] online - Detail Indication:Uncontrolled type 2 diabetes mellitus without complication, without long-term current use of insulin Start:09-Dec-2016 Instruction Type:Patient Education Patient Instructions Indication:Uncontrolled type 2 diabetes mellitus without complication, without long-term current use of insulin Start:09-Dec-2016 Instruction Type:Provider Instructions for Treatment DISCONTINUED - LIPID PANEL ( [id number]) Indication:Hypercholesteremia Start:13-Oct-2016 Instruction Type:Patient Education DISCONTINUED - Glucose, PP/2 Hour (79385) Indication:Family history of diabetes mellitus Start:13-Oct-2016 Instruction Type:Patient Education DISCONTINUED - Hemoglobin Glyclated (HGB A1C) (21100) Indication:Family history of diabetes mellitus Start:13-Oct-2016 Instruction Type:Patient Education How to access health [place] [employer] Indication:Uncontrolled type 2 diabetes mellitus without complication, without long-term current use of insulin Start:13-Oct-2016 Instruction Type:Patient Education How to access health informa [employer] online - Detail Indication:Uncontrolled type 2 diabetes mellitus without complication, without long-term current use of insulin Start:13-Oct-2016 Instruction Type:Patient Education Patient Instructions Indication:Uncontrolled type 2 diabetes mellitus without complication, without long-term current use of insulin Start:13-Oct-2016 Instruction Type:Provider Instructions for Treatment Patient Instructions Indication:Nonsmoker Start:30-Sep-2016 Instruction Type:Provider Instructions for Treatment How to access health [place] [employer] Indication:Uncontrolled type 2 diabetes mellitus without complication, without long-term current use of insulin Start:30-Sep-2016 Instruction Type:Patient Education How to access health informa [employer] - Detail Indication:Uncontrolled type 2 diabetes mellitus [...] for Treatment DISCONTINUED - LIPID PANEL ( [id number]) Indication:Hypercholesteremia Start:13-Oct-2016 Instruction Type:Patient Education DISCONTINUED - Glucose, PP/2 Hour (41436) Indication:Family history of diabetes mellitus Start:13-Oct-2016 Instruction Type:Patient Education DISCONTINUED - Hemoglobin Glyclated (HGB A1C) (63933) Indication:Family history of diabetes mellitus Start:13-Oct-2016 Instruction Type:Patient Education How to access health informa [employer] online Indication:Uncontrolled type 2 diabetes mellitus without [...] for Treatment How to access health informa [employer] online Indication:Uncontrolled type 2 diabetes mellitus without [...] for Treatment DISCONTINUED - LIPID PANEL ( [id number]) Indication:Hypercholesteremia Start:13-Oct-2016 Instruction Type:Patient Education DISCONTINUED - Glucose, PP/2 Hour (94798) Indication:Family history of diabetes mellitus Start:13-Oct-2016 Instruction Type:Patient Education DISCONTINUED - Hemoglobin Glyclated (HGB A1C) ([id number]) Indication:Family history of diabetes mellitus Start:13-Oct-2016 Instruction Type:Patient Education How to access health informa [employer] online Indication:Uncontrolled type 2 diabetes mellitus without [...] for Treatment DISCONTINUED - LIPID PANEL ( [id number]) Indication:Hypercholesteremia Start:13-Oct-2016 Instruction Type:Patient Education DISCONTINUED - Glucose, PP/2 Hour (60727) Indication:Family history of diabetes mellitus Start:13-Oct-2016 Instruction Type:Patient Education DISCONTINUED - Hemoglobin Glyclated (HGB A1C) ([id number]) Indication:Family history of diabetes mellitus Start:13-Oct-2016 Instruction [...] for Treatment DISCONTINUED - LIPID PANEL ( [id number]) Indication:Hypercholesteremia Start:13-Oct-2016 Instruction Type:Patient Education DISCONTINUED - Glucose, PP/2 Hour (09769) Indication:Family history of diabetes mellitus Start:13-Oct-2016 Instruction Type:Patient Education DISCONTINUED - Hemoglobin Glyclated (HGB A1C) (02843) Indication:Family history of diabetes mellitus Start:13-Oct-2016 Instruction Type:Patient Education How to access health [employer] online Indication:Uncontrolled type 2 diabetes mellitus without complication, without long-term current use of insulin Start:13-Oct-2016 Instruction Type:Patient Education How to access health informa [employer] online - Detail Indication:Uncontrolled type 2 diabetes mellitus without complication, without long-term current use of insulin Start:13-Oct-2016 Instruction Type:Patient Education Patient Instructions Indication:Uncontrolled type 2 diabetes mellitus without complication, without long-term current use of insulin Start:13-Oct-2016 Instruction Type:Provider Instructions for Treatment Patient Instructions Indication:Nonsmoker Start:30-Sep-2016 Instruction Type:Provider Instructions for Treatment How to access health [place] [employer] online Indication:Uncontrolled type 2 diabetes mellitus without complication, without long-term current use of insulin Start:30-Sep-2016 Instruction Type:Patient Education How to access health informa [employer] online - Detail Indication:Uncontrolled type 2 diabetes mellitus without complication, without long-term current use of insulin Start:30-Sep-2016 Instruction Type:Patient Education Patient Instructions Indication:Hypothyroid Start:28-Aug-2013 Instruction Type:Provider Instructions for Treatment Patient Instructions Indication:Family history of diabetes mellitus Start:06-Mar-2013 Instruction Type:Provider Instructions for Treatment Name Dates Details How to access [employer] online Indication:Nonsmoker Start:03-Apr-2019 Instruction Type:Patient Education How to access health informa [employer] online - Detail Indication:Nonsmoker Start:03-Apr-2019 Instruction Type:Patient Education Patient Instructions Indication:Nonsmoker Start:03-Apr-2019 Instruction Type:Provider Instructions for Treatment How to access health [place] [employer] online Indication:Diabetes mellitus type 2, uncontrolled (Renamed [...] Instructions for Treatment How to access health [place] [employer] online Indication:Uncontrolled type 2 diabetes mellitus without [...] for Treatment DISCONTINUED - LIPID PANEL ( [id number]) Indication:Hypercholesteremia Start:13-Oct-2016 Instruction Type:Patient Education DISCONTINUED - Glucose, PP/2 Hour (66285) Indication:Family history of diabetes mellitus Start:13-Oct-2016 Instruction Type:Patient Education DISCONTINUED - Hemoglobin Glyclated (HGB A1C) (73119) Indication:Family history of diabetes mellitus Start:13-Oct-2016 Instruction [...] Instructions for Treatment How to access health [place] [employer] online Indication:Uncontrolled type 2 diabetes mellitus without complication, without long-term current use of insulin Start:09-Dec-2016 Instruction Type:Patient Education How to access health informa [employer] online - Detail Indication:Uncontrolled type 2 diabetes mellitus without complication, without long-term current use of insulin Start:09-Dec-2016 Instruction Type:Patient Education Patient Instructions Indication:Uncontrolled type 2 diabetes mellitus without complication, without long-term current use of insulin Start:09-Dec-2016 Instruction Type:Provider Instructions for Treatment DISCONTINUED - LIPID PANEL ( [id number]) Indication:Hypercholesteremia Start:13-Oct-2016 Instruction Type:Patient Education DISCONTINUED - Glucose, PP/2 Hour (60723) Indication:Family history of diabetes mellitus Start:13-Oct-2016 Instruction Type:Patient Education DISCONTINUED - Hemoglobin Glyclated (HGB A1C) (36198) Indication:Family history of diabetes mellitus Start:13-Oct-2016 Instruction Type:Patient Education How to access health [place] online Indication:Uncontrolled type 2 diabetes mellitus without complication, without long-term current use of insulin Start:13-Oct-2016 Instruction Type:Patient Education How to access health informa [employer] online - Detail Indication:Uncontrolled type 2 diabetes mellitus without complication, without long-term current use of insulin Start:13-Oct-2016 Instruction Type:Patient Education Patient Instructions Indication:Uncontrolled type 2 diabetes mellitus without complication, without long-term current use of insulin Start:13-Oct-2016 Instruction Type:Provider Instructions for Treatment Patient Instructions Indication:Nonsmoker Start:30-Sep-2016 Instruction Type:Provider Instructions for Treatment How to access health [place] [employer] Indication:Uncontrolled type 2 diabetes mellitus without complication, without long-term current use of insulin Start:30-Sep-2016 Instruction Type:Patient Education How to access health informa [employer] - Detail Indication:Uncontrolled type 2 diabetes mellitus [...] for Treatment How to access health informa [employer] online Indication:Diabetes mellitus type II, controlled, with [...] for Treatment DISCONTINUED - LIPID PANEL ( [id number]) Indication:Hypercholesteremia Start:13-Oct-2016 Instruction Type:Patient Education DISCONTINUED - Glucose, PP/2 Hour (94434) Indication:Family history of diabetes mellitus Start:13-Oct-2016 Instruction Type:Patient Education DISCONTINUED - Hemoglobin Glyclated (HGB A1C) (95526) Indication:Family history of diabetes mellitus Start:13-Oct-2016 Instruction [...] Informa tion Online using Patient Portal and [email or web address] Apps Indication:Acute sinusitis Start:24-Feb-2021 Instruction Type:Patient Education [...] for Treatment How to access health informa [employer] online Indication:Uncontrolled type 2 diabetes mellitus without [...] for Treatment DISCONTINUED - LIPID PANEL ( [id number]) Indication:Hypercholesteremia Start:13-Oct-2016 Instruction Type:Patient Education DISCONTINUED - Glucose, PP/2 Hour (60985) Indication:Family history of diabetes mellitus Start:13-Oct-2016 Instruction Type:Patient Education DISCONTINUED - Hemoglobin Glyclated (HGB A1C) (71351) Indication:Family history of diabetes mellitus Start:13-Oct-2016 Instruction [...] Informa tion Online using Patient Portal and [email or web address] Apps Indication:Acute sinusitis Start:24-Feb-2021 Instruction Type:Patient Education [...] Type:Patient Education How to access health informa [employer] online - Detail Indication:Uncontrolled type 2 diabetes mellitus without complication, without long-term current use of insulin Start:07-May-2017 Instruction Type:Patient Education Patient Instructions Indication:Uncontrolled type 2 diabetes mellitus without complication, without long-term current use of insulin Start:07-May-2017 Instruction Type:Provider Instructions for Treatment Patient Instructions Indication:Nonsmoker Start:09-Feb-2017 Instruction Type:Provider Instructions for Treatment How to access health informa [employer] online Indication:Uncontrolled type 2 diabetes mellitus without [...] for Treatment DISCONTINUED - LIPID PANEL ( [id number]) Indication:Hypercholesteremia Start:13-Oct-2016 Instruction Type:Patient Education DISCONTINUED - Glucose, PP/2 Hour (69724) Indication:Family history of diabetes mellitus Start:13-Oct-2016 Instruction Type:Patient Education DISCONTINUED - Hemoglobin Glyclated (HGB A1C) (49611) Indication:Family history of diabetes mellitus Start:13-Oct-2016 Instruction Type:Patient Education How to access health informa [employer] online Indication:Uncontrolled type 2 diabetes mellitus without [...] tion Online using Patient Portal and [employer] Apps Indication:Acute sinusitis Start:24-Feb-2021 Instruction Type:Patient Education [...] for Treatment How to access health informa [employer] online Indication:Uncontrolled type 2 diabetes mellitus without [...] for Treatment DISCONTINUED - LIPID PANEL ( [id number]) Indication:Hypercholesteremia Start:13-Oct-2016 Instruction Type:Patient Education DISCONTINUED - Glucose, PP/2 Hour (82890) Indication:Family history of diabetes mellitus Start:13-Oct-2016 Instruction Type:Patient Education DISCONTINUED - Hemoglobin Glyclated (HGB A1C) (74178) Indication:Family history of diabetes mellitus Start:13-Oct-2016 Instruction Type:Patient Education How to access health informa [employer] online Indication:Uncontrolled type 2 diabetes mellitus without complication, without long-term current use of insulin Start:13-Oct-2016 Instruction Type:Patient Education How to access health informa [employer] online - Detail Indication:Uncontrolled type 2 diabetes mellitus without complication, without long-term current use of insulin Start:13-Oct-2016 Instruction Type:Patient Education Patient Instructions Indication:Uncontrolled type 2 diabetes mellitus without complication, without long-term current use of insulin Start:13-Oct-2016 Instruction Type:Provider Instructions for Treatment Patient Instructions Indication:Nonsmoker Start:30-Sep-2016 Instruction Type:Provider Instructions for Treatment How to access health informa [employer] online Indication:Uncontrolled type 2 diabetes mellitus without complication, without long-term current use of insulin Start:30-Sep-2016 Instruction Type:Patient Education How to access health informa [employer] online - Detail Indication:Uncontrolled type 2 diabetes [...] section and content) DATE CREATED AUTHOR 05/24/2018 [facility] ([place]) DATE CREATED AUTHOR AUTHOR'S ORGANIZ ATION 03/08/2021 [facility] DATE CREATED AUTHOR AUTHOR'S ORGANIZ ATION 01/20/2023 [facility] DATE CREATED AUTHOR AUTHOR'S ORGANIZ ATION 11/03/2024 [facility] DATE CREATED AUTHOR AUTHOR'S ORGANIZ ATION 06/02/2025 [facility] Goals (unrecognized section and content) Goals [...] Provi tree, Attending Provider, Referring Provider Active Variety Performer Relationship Specialty Start Date End Date Renata Mei DO [address] [facility] [address] [place] [address] PCP - General Internal Medicine 09/16/18 Renetta Najera [address] [place] [address] [phone] Specialty [place] [facility] 12/19/18 Annika Sweeney MD [address] [place] [address] Physician Radiation Oncology 12/20/18 Team Status: Active [...] or prosecute any alcohol or drug abuse patient.[facility] FOR RECORDS PERTAINING TO PATIENTS WHO ARE [...] BE BASED ON THE PRIMARY CLINICAL RECORDS. [facility] [employer] [facility]. provides no warranty or guarantee of the accuracy or completeness of information in this document.
--- OUTSIDE RECORDS SUMMARY | 2025-06-07 04:13 | XMS RPT_ITS | CCD ---
Author Organization [facility] Care Team Providers Care Field Health Officer Name Role Phone WALDEMAR ROSA Unavailable Unavailable WALDEMAR ROSA Unavailable Unavailable CiMarcia chapin E Unavailable Waldemar Rosa Unavailable Zee Rivas Unavailable Myra Fowler Unavailable Unavailable Haseeb Sherwood Unavailable Unavailable Unavailable Unavailable Aaron Carmen Unavailable Waldemar Rosa Unavailable [facility] Unavailable Zee Rivas Unavailable Manchak, Federica Unavailable Unavailable Haseeb Sherwood Unavailable Unavailable Unavailable Unavailable Kathleen Miller Unavailable Keeley Saini Unavailable [facility] Unavailable Haseeb Sherwood Unavailable Unavailable Haseeb Brizuela Unavailable Unavailable Madelin Fiore Unavailable Unavailable Manchak, Federica Unavailable Unavailable Fast, Arelis A Unavailable Nellie Knox Unavailable Unavailable Cidari BRICEÑO Carmen Unavailable Kathleen Miller Unavailable Dr. Waldemar Rosa Unavailable Keeley Saini Unavailable [facility] Unavailable Zee Rivas MD Unavailable Manchak 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, Federica Unavailable Unavailable Fast DO, Arelis A Unavailable Haseeb Brizuela LPN Unavailable Unavailable Nellie Knox LPN Unavailable Unavailable Unavailable Unavailable Slarb 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, Latrice Unavailable Unavailable Presley 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, Haseeb Unavailable Unavailable Adebayo 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, Madelin Unavailable Unavailable Aaron Marcia Unavailable Ottoniel MOLD CLAMPER, Karen Unavailable Ottoniel MOLD CLAMPER, Karen Unavailable Aaron Marcia Unavailable Daphne 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, Kayela Unavailable Unavailable Ottoniel MOLD CLAMPER, Karen Unavailable Ottoniel MOLD CLAMPER, Karen Unavailable Ottoniel MOLD CLAMPER, Karen Unavailable Kathleen Miller Unavailable Dr. Waldemar Rosa Unavailable Keeley Saini Unavailable [facility], [facility] Unavailable Rob CLEMONS, Zee Flores Unavailable Slarb 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, Latrice Unavailable Unavailable Lisette 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, Nellie Unavailable Unavailable Juanis 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, Federica Unavailable Unavailable Gelacio 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, Haseeb Unavailable Unavailable Unavailable Unavailable Ottoniel MOLD CLAMPER, Karen Attending Unavailable Ottoniel MOLD CLAMPER, Karen Consulting Unavailable Ottoniel MOLD CLAMPER, Karen Referring Unavailable Aram, Robert Unavailable Unavailable Flavia Coleman MA Unavailable Unavailable Renata Mei DO Primary Care Provider Renetta Najera Unavailable Patel CLEMONS, Annika Unavailable Ottoniel HORSE SHOER-CKaren Primary Care Provider Dr. Kelvin Butt DO Emergency Provider [phone] Ottoniel, Karen Primary Care Unavailable Ottoniel, Karen [...] sources) Latex Allergy to substance 9 Rash [facility] (1 source) Latex Drug allergy (disorder) 5 [facility] Repository NEGATED: Highlighted row has been ruled [...] 200 mg by mouth as needed. Active [place] 5-Lax-Dop-Fish Oil (Fish Oil) 500 MG capsule,delayed release(DR/EC) (2 sources) Start: 10-03-20 take 1 capsule by mouth once daily [place] 0-Hkm-Khd-Fish Oil (Fish Oil) 500 MG capsule,delayed release(DR/EC) Active 500 mg PO DAILY October 03, 2018 1:00am SUPPLEMENT Start: 10-03-2018 take 1 capsule by mo [facility] once daily [place] 4-Hfq-Ery-Fish Oil (Fish Oil) 500 MG capsule,delayed release(DR/EC) Active 500 MG PO DAILY October 03, 2018 1:00am [place] 2-Aih-Nim-Fish Oil (Fish Oil) [address] (1 source) Start: 10-03-2018 take 1 capsule by mouth once daily [place] 9-Mpt-Pel-Fish Oil (Fish Oil) [address] Caps[address].Dr Active [...] THYROID Start: 09-26-2018 take 1 tablet by [facility] once daily Synthroid 25 MCG Oral [...] capsule by mouth once daily Vitamin D3 04039 UNIT Oral Capsule 1 (one) Capsule Capsule [...] End: 06-27-2018 Start: 12-06-2017 End: 06-27-2018 Ergocalciferol 43432 UNIT Or al Capsule 1 Capsule twice [...] End: 11-18-2021 Start: 06-10-2020 End: 11-18-2021 Nystop 737794 UNIT/GM Lead Janitor al Powder 1 Application bid for 0 [...] 27-Jun-2018 Active take 1 capsule by mo [facility] once daily Vitamin E, dl, acetate, (VITAMIN E) 400 unit capsule Take 400 Units by mouth once daily. Active vitamin E mixed (12 sources) Start: 06-27-2018 Vitamin Pack (20 sources) Vitamin Pack Shanique ctive Comments: Cranberry, Vitamin d3, MV, [place] 3 fish oil, Coq10, Calcium Vitamin Pack Act michael Comments: Cranberry, Vitamin d3, MV, [place] 3 fish oil, Coq10, Calcium Comment on above: Cranberry, Vitamin d 3, MV, [place] 3 fish oil, Coq10, Calcium Problems Active [...] [place] with Dr. Manuel johnson, no longer [facility] onc-mammo 05/19/22 stableRt and left getting [...] Comment on above: attended Jul class with certified breastfeeding educator, sign up for SEP 11 Disorders [...] Comment on above: attended Jul class with certified breastfeeding educator, sign up for SEP 11 Unclassified [...] without Contrast n 05-31-2025 Brain/Head without Contrast [facility] Imaging Services [address] [place] [address] Brain/Head without Contrast MR#: [id number] Acct: [id number] Name: VILLALOBOSKAREN Carolina Rep #: [id number] : 1945 F 79 From: Phil Gomez MD PCP: Karen Alcazar, HORSE SHOER-C Status: REG ER Study: Brain/Head without Contrast Date of Exam: 02/20 Exam# [id number] Ordering Dr: Kelvin Butt DO EXAM: NONCONTRAST [...] CC: ADRIANO Alcazar; Dr. Kelvin Butt DO Ski Maker Wood: Signed Normal [facility] Emergency Department Summary on 05-31-2025 Emergency Department Summary [facility] Medical Records Department [address] [place] [address] Emergency Department Summary 05/31/25 MR#: [id number] Acct: [id number] Name: KAREN VILLALOBOS Rep #: [id number] : 1945 79 From: Kevlin Butt DO PCP: ADRIANO Burgess Status:DEP ER [...] Patient hit her left face on a concrete floor installer block. Patient denies any loss of consciousness. Patient states she was unable to get up after her fall. Patient denies any paresthesias or weakness. Patient complains of pain over her left shoulder and into the left side of her neck. Patient denies any paresthesias or weakness. Patient denies any other injuries. Tetanus Immunization: Unknown [facility] Medical History (Updated 05/31/25 @ 12:43 [...] CN's I (more content not included)... Normal [facility] Shoulder min 2 Viewson 05-31 Shoulder min 2 Views [facility] Imaging Services [address], [place] [id number] Shoulder min 2 Views MR#: [id number] Acct: [id number] Name: KAREN VILLALOBOS Rep #: [id number] : 1945 F 79 From: Phil Gomez MD PCP: Karen Alcazar HORSE SHOER-C Status: REG ER Study: Shoulder min 2 Views Date of Exam: 05/31/25 Exam# [id number] Ordering Dr: Kelvin Butt DO PROCEDURE: SHOULDER [...] time of dictation. Reading Location: [place] CC: HORSE SHOER-C Karen Alcazar; Dr. Kelvin Butt DO Ski Maker Wood: Signed Normal [facility] Sinus/Facial Boneon 05-31-20 Sinus/Facial Bone [facility] Imaging Services [address] [place] [address] Sinus/Facial Bone MR#: [id number] Acct: [id number] Name: KAREN VILLALOBOS Rep #: [id number] : 1945 F 79 From: Phil Gomez MD PCP: ADRIANO Burgess Status: REG ER Study: Sinus/Facial Bone Date of Exam: 05/31/25 Exam# [id number] Ordering Dr: Kelvin Butt DO PROCEDURE: SINUS/FACIAL [...] no underlying fracture. Reading Location: [place] CC: HORSE SHOER-C Karen Alcazar; Dr. Kelvin Butt DO Ski Maker Wood: Signed Normal [facility] Spine Cervical without Contr ason 05-31-2025 Spine Cervical without Contras [facility] Imaging Services [address] [place] [address] Spine Cervical without Contras MR#: [id number] Acct: [id number] Name: KAREN VILLALOBOS Rep #: [id number] : 1945 F 79 From: Alessio Marie MD PCP: ADRIANO Burgess Status: [facility] ER Study: Spine Cervical without Contras Date of Exam: 0 05/31/25 Exam# [id number] Ordering Dr: Kelvin Butt DO EXAM: CT [...] changes as above. Reading Location: [place] CC: HORSE SHOEROmega Alcazar; Dr. Kelvin Butt DO Ski Maker Wood: Signed Normal [facility] MR/BMS.BVSon 01-04-2025 MR/BMS.BVS [facility] [address] [place] [address] OFFICE VISIT Date of Service: 01/04/25 MR#: [id number] Acct: [id number] Name: KAREN VILLALOBOS Rep #: [id number] : 1945 Provider: TRAMAINE Salmeron Age/Sex: 79/F Location: [facility] Status: Signed Intake Vital Signs 09/25/24 11:16 [...] labored, no (more content not included)... Normal [facility] 11-01-2024 CLAR[place] Telephone (GABRIELAAMAIRANI) KAREN VILLALOBOS ([id number]) 1945 F Date Time Provider Department 11/01/24 [...] Status:Closed by SHAVONNE ZULUAGA on 11/01/24 Normal [facility] Brain W/WO Contraston 2023 Brain W/WO Contrast [facility] Imaging Services [address] [place] [address] Brain W/WO Contrast MR#: [id number] Acct: [id number] Name: KAREN VILLALOBOS Rep #: [id number] : 1945 F 79 From: Michelle Sutton MD PCP: ADRIANO Burgess Status: REG CLI Study: Brain W/WO Contrast Date of Exam: 10/31/24 Exam# [id number] Ordering Dr: Karen AlcazarC [id number] EXAM: MR HEAD WITHOUT AND WITH INTRAVENOUS [...] there appears to be origin of the 3d specialist with small but patent signal voids. Enhanced deep veins and major dural venous sinuses. No enhancing nodules. MRI/Brain W/WO Contrast IMPRESSION: No acute findings in the head/brain. Chronic changes. Electronically Signed: Michelle Sutton MD at 2:10 EST Reading Location ID and State: [facility] / [place] Tel , Service support , CC: ADRIANO Alcazar Ski Maker Wood: Signed Normal [facility] CREATININE FINGERSTICKon CREATININE WB < 1.0 Normal 0.55-1.02 [facility] Comment on above: Performed By: #### L 9100.0200 #### [facility] Laboratory [address] [place], [address] EGFR WB > 60.0000 Normal >60 [facility] Comment on above: Performed By: #### L 9100.0200 #### [facility] [address] [place], [address] Carotid Duplex Ultrasoundon 10-09-2024 Carotid Duplex Ultrasound [facility] Cardiovascular Services [address] [place] [address] Carotid Duplex Ultrasound 10/09/24 1244 MR#: [id number] Acct: [id number] Name: KAREN VILLALOBOS Rep #: [id number] : 1945 79 From: Kelvin Ayala MD Attending Dr: ADRIANO Burgess Status: REG CLI Ordering Dr: Karen Alcazar Date: 10/09/24 Location: [facility] Sex: F C Admitted: Reason For Study: [...] color flow and specral Doppler. Carotid Duplex 64312. Exam performed in department. VL/Carotid Duplex Ultrasound Interpretation Summary Mild (<50%) stenosis right extracranial internal carotid. Moderate (50-69%) stenosis left extracranial internal carotid. Patent and antegrade vertebrals bilaterally. Ordering Physician: Karen Alcazar Referring Physician: Karen Alcazar Performed By: Kiersten Bright RVT 10/09/242054 Date Kelvin Ayala MD CC: HORSE SHOER-C Karen Alcazar Date Dictated: 10/09/24 1244 Date Transcribed: 10/09/242054 Ski Maker Wood: Signed Normal [facility] Brain/Head without Contrasto n 09-25-2024 Brain/Head without Contrast [facility] Imaging Services [address] [place] [address] 366711 Brain/Head without Contrast MR#: [id number] Acct: [id number] Name: KAREN VILLALOBOS Rep #: [id number] : 1945 F 79 From: Reva hoang MD PCP: ADRIANO Burgess Status: REG ER Study: Brain/Head without Contrast Date of Exam: 08/30 07/22 Exam# [id number] Ordering Dr: [place] [id number] HISTORY: headache. TECHNIQUE: Multiple axial images were [...] CC: ADRIANO Alcazar; Dr. Lyle Guerrero DO Ski Maker Wood: Signed Normal [facility] CBC W/Diff, Automatedon 10-2 PLT EST MOD DEC Normal ADEQ [facility] Comment on above: Order Comment: PLT C LUMPING Performed By: #### L 100.0100 #### [facility] Laboratory [address] [place], [address] RED CELL MORPH NORM C+C Normal NORM C C [facility] Comment on above: Order Comment: PLT C LUMPING Performed By: #### L 100.0100 #### [facility] [address] [place], [address] SMEAR COMMENT SCANNED Normal [facility] Comment on above: Order Comment: PLT C LUMPING Performed By: #### L 100.0100 #### [facility] [address] [place], [address] Emergency Department Summary on 09-25-2024 Emergency Department Summary [facility] Medical Records Department [address] [place] [address] Emergency Department Summary 09/25/24 MR#: [id number] Acct: [id number] Name: KAREN VILLALOBOS Rep #: [id number] : 1945 79 From: Lyle Guerrero DO [...] occasional occipital ache but not headache. [facility] Medical History Diabetes Home Medications ???Medication [...] to pal (more content not included)... Normal [facility] Spine Cervical without Contr ason 09-25-2024 Spine Cervical without Contras [facility] Imaging Services [address] [place] [address] Spine Cervical without Contras MR#: [id number] Acct: [id number] Name: KAREN VILLALOBOS Rep #: [id number] : 1945 F 79 From: Reva hoang MD PCP: Karen Alcazar, HORSE SHOER-C Status: REG ER Study: Spine Cervical without Contras Date of Exam: Exam# [id number] Ordering Dr: [place] [id number] HISTORY: pain. TECHNIQUE: Helically acquired images were [...] Bryant MD at 13:43 EDT , CC: HORSE SHOERBasimC Karen Alcazar; Dr. Lyle Guerrero DO Ski Maker Wood: Signed Normal [facility] SCRN MAMM (CAD)W/SHELIA BILATo n 08-01-2024 SCRN MAMM (CAD)W/SHELIA BILAT [facility] Imaging Services [address] [place] [address] SCRN MAMM (CAD)W/SHELIA BILAT MR#: [id number] Acct: [id number] Name: KAREN VILLALOBOS Rep #: [id number] : 1945 F 79 From: Fernando shaw MD PCP: ADRIANO Burgess Status: [facility] Study: SCRN MAMM (CAD)W/SHELIA BILAT Date of Exam: 02/19 Exam# [id number] Ordering Dr: Karen Alcazar HORSE SHOER-C [id number] MAMMOGRAPHY - BILATERAL SCREENING REASON FOR EXAM: [...] delay biopsy of a clinically suspicious abnormality. [id number] Electronically Signed: Fernando Ford MD at 13:55 EDT , CC: ADRIANO Alcazar Ski Maker Wood: Signed Normal [facility] Blood Glucose , Office [phone])Ordered By: Flavia Coleman on 07-20-2023 Glucose Glucometer (BldC) [Moles/Vol] 155 1 Normal [facility]; [facility] Work Phone: HgA1C , Office ([phone])Ordere d By: Flavia Coleman on 07-20-2023 HbA1c (Bld) [Mass fraction] 9.5 % Abnormal 4.6 - 7.1 [facility]; [facility] Work Phone: CALCIFEDIOL ([phone])Ordered B y: Shopfitter on 01-06-2023 25-hydroxyvitamin D [Mass/Vol] 29.7 ng/mL Abnormal 30.0-100.0 [facility]; [facility] Work Phone: CBC, PLATELETS & MANUAL DIFF ([phone])Ordered By: Shopfitter on 01-06-2023 Basophils (Bld) [#/Vol] 0.1 10*3/uL [...] [#/Vol] 93 10*3/uL Abnormal 150-450 [facility]; [facility] Work Phone: RBC (Bld) [#/Vol] 4.58 10*6/uL Normal 3.77-5.28 [facility]; [facility] Work Phone: WBC (Bld) [#/Vol] 5.4 10*3/uL Normal 3.4-10.8 [facility]; [facility] Work Phone: HGB A1C ([phone])Ordered By: S ystem Environmental Economist on 01-06-2023 HbA1c (Bld) [Mass fraction] 8.9 % Abnormal 4.8-5.6 [facility]; [facility] Work Phone: LIPID PANEL ([phone])Ordered B y: Shopfitter on 01-06-2023 Cholesterol [Mass/Vol] 187 mg/dL Normal 100-199 [facility]; [facility] Work Phone: Cholesterol in HDL [Mass/Vol] 56 mg/dL Normal [facility]; [facility] Work Phone: Triglyceride [Mass/Vol] 99 mg/dL Normal 0-149 [facility]; [facility] Work Phone: LIPID PANEL ([phone]) 18 mg/dL Normal 5-40 [facility]; [facility] Work Phone: LIPID PANEL ([phone]) 113 mg/dL Abnormal 0-99 [facility] Internal [facility]; [facility] Work Phone: LIPID PANEL ([phone]) 2.0 {ratio} Normal 0.0-3.2 [facility]; [facility] Work Phone: METABOLIC PANEL, COMPREHENSI VE ([phone])Ordered By: Shopfitter on 01-06-2023 Albumin [Mass/Vol] 4.5 g/dL Normal 3.7-4.7 [facility]; [facility] Work Phone: Albumin/Globulin [Mass ratio] 1.7 {ratio} Normal 1.2-2.2 [facility]; [facility] Work Phone: ALP [Catalytic activity/Vol] 101 U/L Normal 44-121 [facility]; [facility] Work Phone: ALT [Catalytic activity/Vol] 45 U/L Abnormal 0-32 [facility]; [facility] Work Phone: AST [Catalytic activity/Vol] 52 U/L Abnormal 0-40 [facility]; [facility] Work Phone: Bilirubin [Mass/Vol] 0.5 mg/dL Normal 0.0-1.2 [facility]; [facility] Work Phone: Calcium [Mass/Vol] 9.8 mg/dL Normal 8.7-10.3 [facility]; [facility] Work Phone: Chloride [Moles/Vol] 102 mmol/L Normal 96-106 [facility] re[facility]ive Internal Medicine; [facility] Work Phone: CO2 [Moles/Vol] 20 mmol/L Normal 20-29 [facility]; [facility] Work Phone: Creatinine [Mass/Vol] 0.73 mg/dL Normal 0.57-1.00 [facility] prehensive Internal Medicine; [facility] Work Phone: Globulin (S) [Mass/Vol] 2.7 g/dL Normal 1.5-4.5 C omprehensive Internal Medicine; [facility] Work Phone: Glucose [Mass/Vol] 176 mg/dL Abnormal 70-99 [facility] Internal [facility]; [facility] Work Phone: Potassium [Moles/Vol] 4.6 mmol/L Normal 3.5-5.2 [facility] prehensive Internal Medicine; [facility] Work Phone: Protein [Mass/Vol] 7.2 g/dL Normal 6.0-8.5 [facility]; [facility] Work Phone: Sodium [Moles/Vol] 139 mmol/L Normal 134-144 [facility]; [facility] Work Phone: Urea nitrogen [Mass/Vol] 12 mg/dL Normal 8-27 [facility]; [facility] Work Phone: Urea nitrogen/Creatinine [Mass ratio] 16 mg/mg Normal 12-28 [facility]; [facility] Work Phone: METABOLIC PANEL, COMPREHENSIVE ([phone]) 85 mL/min/1.73 Normal Comprehens [facility] Internal [facility]; [facility] Work Phone: TSH (THYROID STIMULATING HOR BARRON) ([phone])Ordered By: Shopfitter on 01-06-2023 TSH Qn 3.720 {uIU/mL} Normal 0.450-4.50 0 [facility]; [facility] Work Phone: Blood Glucose , Office [phone])Ordered By: Latrice Levy on 09-22-2022 Glucose Glucometer (BldC) [Moles/Vol] 178 1 Normal [facility]; [facility] Work Phone: HgA1C , Office ([phone])Ordere d By: Latrice Levy on 09-22-2022 HbA1c (Bld) [Mass fraction] 8.6 % Abnormal 4.6 - 7.1 [facility]; [facility] Work Phone: Blood Glucose , Office ([phone])Ordered By: Federica Olivarez on 02-27-2022 Glucose Glucometer (BldC) [Moles/Vol] 216 1 Normal [facility]; [facility] Work Phone: Comment on above: non-fastin HgA1C , Office ([phone])Ordere d By: Haseeb Brizuela on 02-27-2022 HbA1c (Bld) [Mass fraction] 8.2 % Abnormal 4.6 - 7.1 [facility]; [facility] Work Phone: CBC & PLATELETS (AUTO) ([phone])Ordered By: Shopfitter on 02-24-2022 Erythrocyte distribution width (RBC) [Ratio] 13.1 % Normal 11.7-15.4 [facility] Internal [facility]; [facility] Work Phone: Comment on above: January 2022; PATIENT WAS FASTINGPERFORMED BY: CB [facility] [id number]Dublin [place] [id number] Hematocrit (Bld) [Volume fraction] 41.3 % Normal 34.0-46.6 [facility]; [facility] Work Phone: Comment on above: January 2022; PATIENT WAS FASTINGPERFORMED BY: CB [facility] [id number]Dublin [place] [id number] Hemoglobin (Bld) [Mass/Vol] 13.8 g/dL Normal 11.1-15.9 [facility]; [facility] Work Phone: Comment on above: January 2022; PATIENT WAS FASTINGPERFORMED BY: CB [facility] [id number]Dublin [place] [id number] MCH (RBC) [Entitic mass] 29.7 pg Normal 26.6-33.0 [facility]; [facility] Work Phone: Comment on above: January 2022; PATIENT WAS FASTINGPERFORMED BY: CB [facility] [id number] [address]Dublin [place] [id number] MCHC (RBC) [Mass/Vol] 33.4 g/dL Normal 31.5-35.7 [facility]; [facility] Work Phone: Comment on above: January 2022; PATIENT WAS FASTINGPERFORMED BY: CB [facility] [id number] [address]Dublin [place] [id number] MCV (RBC) [Entitic vol] 89 fL Normal 79-97 [facility]; [facility] Work Phone: Comment on above: January 2022; PATIENT WAS FASTINGPERFORMED BY: CB [facility] [id number]Dublin [place] [id number] Platelets (Bld) [#/Vol] 98 10*3/uL Abnormal 150-450 [facility]; [facility] Work Phone: Comment on above: January 2022; PATIENT WAS FASTINGPERFORMED BY: CB [facility] [id number]blin [place] [id number] RBC (Bld) [#/Vol] 4.65 10*6/uL Normal 3.77-5.28 [facility]; [facility] Work Phone: Comment on above: January 2022; PATIENT WAS FASTINGPERFORMED BY: [facility] [id number] [facility] [place] [id number] WBC (Bld) [#/Vol] 6.6 10*3/uL Normal 3.4-10.8 [facility]; [facility] Work Phone: Comment on above: Verified by repeat analysis January 2022; PATIENT WAS FASTINGPERFORMED BY: [facility] [id number] [facility] [id number] HEPATIC FUNCTION PANEL ([phone])Ordered By: Shopfitter on 02-24-2022 Albumin [Mass/Vol] 4.2 g/dL Normal 3.7-4.7 [facility]; [facility] Work Phone: Comment on above: January 2022; PATIENT WAS FASTINGPERFORMED BY: [facility] [id number] [facility] [id number] ALP [Catalytic activity/Vol] 99 U/L Normal 44-121 [facility] Internal Medicine; [facility] Work Phone: Comment on above: January 2022; PATIENT WAS FASTINGPERFORMED BY: [facility] Kszrfh5475 [address] [facility] [place] [id number] ALT [Catalytic activity/Vol] 39 U/L Abnormal 0-32 [facility]; [facility] Work Phone: Comment on above: January 2022; PATIENT WAS FASTINGPERFORMED BY: [facility] Nanslp8708 [address] [facility] HospitalDublin [place] [id number] AST [Catalytic activity/Vol] 40 U/L Normal 0-40 [facility]; [facility] Work Phone: Comment on above: January 2022; PATIENT WAS FASTINGPERFORMED BY: [facility] Xhsagp7021 [address] RoadHighlands-Cashiers Hospitalin [place] [id number] Bilirubin [Mass/Vol] 0.5 mg/dL Normal 0.0-1.2 Comp [facility]; [facility] Work Phone: Comment on above: January 2022; PATIENT WAS FASTINGPERFORMED BY: CB [facility] Khflyx8601 [address] RoadDublin [place] [id number] Bilirubin.direct [Mass/Vol] 0.14 mg/dL Normal 0.00-0.40 [facility]; [facility] Work Phone: Comment on above: January 2022; PATIENT WAS FASTINGPERFORMED BY: CB [facility] Bzihkb6494 [address] [facility]in [place] [id number] Protein [Mass/Vol] 7.3 g/dL Normal 6.0-8.5 [facility] Internal Medicine; [facility] Work Phone: Comment on above: January 2022; PATIENT WAS FASTINGPERFORMED BY: [facility] Vjvuvw6038 [address] [facility] [id number] Blood Glucose , Office (2696 2)Ordered By: Latrice Levy on 11-18-2021 Glucose Glucometer (BldC) [Moles/Vol] 138 1 Normal [facility]; [facility] Work Phone: HgA1C , Office ([phone])Ordere d By: Latrice Levy on 11-18-2021 HbA1c (Bld) [Mass fraction] 6.8 % Normal 4.6 - 7.1 [facility]; [facility] Work Phone: CALCIFEDIOL ([id number])Ordered B y: Shopfitter on 11-12-2021 25-hydroxyvitamin D [Mass/Vol] 41.9 ng/mL Normal 30.0-100.0 [facility]; [facility] Work Phone: Comment on above: Vitamin D deficiency has been defined by the [place] ofMedicine and an Endocrine Society practice guideline as alevel of serum 25-OH vitamin D less than 20 ng/mL (1,2).The Endocrine Society went on to further define vitamin Dinsufficiency as a level between 21 and 29 ng/mL (2).1. IOM ([place] of Medicine). 2010. Dietary reference intakes for calcium and D. [place]: The National Academies Press.2. Ace MF, Lurdes WELLS, Cynthia COFFMAN, et al. Evaluation, treatment, and prevention of vitamin D deficiency: an Endocrine Society clinical practice guideline. JCEM. 2010; 96(7):1911-30. Nov 12; PATIENT WAS FASTINGPERFORMED BY: CB [facility] Drsjqj7692 [address] RoadDublin [place] [id number] CBC & PLATELETS (AUTO) (8502 7)Ordered By: Shopfitter on 11-12-2021 Erythrocyte distribution width (RBC) [Ratio] 12.9 % Normal 11.7-15.4 [facility]; [facility] Work Phone: Comment on above: Nov 12; PATIENT WAS FASTINGPERFORMED BY: CB [facility] Tpzsap7594 [address] RoadDublin [place] [id number] Hematocrit (Bld) [Volume fraction] 39.2 % Normal 34.0-46.6 [facility]; [facility] Work Phone: Comment on above: Nov 12; PATIENT WAS FASTINGPERFORMED BY: CB [facility] Ievnni0720 [address] RoadDublin [place] [id number] Hemoglobin (Bld) [Mass/Vol] 13.3 g/dL Normal 11.1-15.9 [facility]; [facility] Work Phone: Comment on above: Nov 12; PATIENT WAS FASTINGPERFORMED BY: CB [facility] Hjzouc9777 [address] RoadDublin [place] [id number] MCH (RBC) [Entitic mass] 29.9 pg Normal 26.6-33.0 [facility]; [facility] Work Phone: Comment on above: Nov 12; PATIENT WAS FASTINGPERFORMED BY: CB [facility] Opovyz6423 [address] RoadDublin [place] [id number] MCHC (RBC) [Mass/Vol] 33.9 g/dL Normal 31.5-35.7 [facility] prehensive Internal Medicine; [facility] Work Phone: Comment on above: Nov 12; PATIENT WAS FASTINGPERFORMED BY: CB [facility] Jmueyc8678 [address] RoadDublin [place] [id number] MCV (RBC) [Entitic vol] 88 fL Normal 79-97 [facility]ensive [facility]; [facility] Work Phone: Comment on above: Nov 12; PATIENT WAS FASTINGPERFORMED BY: CB [facility] Oxqign9668 [address] RoadDublin [place] [id number] Platelets (Bld) [#/Vol] 119 10*3/uL Abnormal 150-450 [facility]; [facility] Work Phone: Comment on above: Nov 12; PATIENT WAS FASTINGPERFORMED BY: CB [facility] Xrzysj2802 [address] RoadDublin [place] [id number] RBC (Bld) [#/Vol] 4.45 10*6/uL Normal 3.77-5.28 [facility]erensive [facility]; [facility] Work Phone: Comment on above: Nov 12; PATIENT WAS FASTINGPERFORMED BY: CB [facility] Bjirmr9759 [address] RoadDublin [place] [id number] WBC (Bld) [#/Vol] 5.7 10*3/uL Normal 3.4-10.8 [facility] Internal Medicine; [facility] Work Phone: Comment on above: Nov 12; PATIENT WAS FASTINGPERFORMED BY: CB [facility] Tyygtl8581 [address] RoadDublin [place] [id number] LIPID PANEL (56019)Ordered B y: Shopfitter on 11-12-2021 Cholesterol [Mass/Vol] 177 mg/dL Normal 100-199 [facility]; [facility] Work Phone: Comment on above: Nov 12 2021; PATIENT WAS FASTINGPERFORMED BY: CB [facility] Vpcrol2570 [address] RoadDublin [place] [id number] Cholesterol in HDL [Mass/Vol] 54 mg/dL Normal [facility]; [facility] Work Phone: Comment on above: Nov 12 2021; PATIENT WAS FASTINGPERFORMED BY: CB [facility] Oytkdd0060 [address] RoadDublin [place] [id number] Triglyceride [Mass/Vol] 88 mg/dL Normal 0-149 [facility]; [facility] Work Phone: Comment on above: Nov 12 2021; PATIENT WAS FASTINGPERFORMED BY: CB [facility] Aafgmz7598 [address] RoadDublin [place] [id number] LIPID PANEL (69755) 16 mg/dL Normal 5-40 Compr ensive Internal Medicine; [facility] Work Phone: Comment on above: Nov 12 2021; PATIENT WAS FASTINGPERFORMED BY: CB [facility] Prptiy0663 [address] RoadDublin [place] [id number] LIPID PANEL (98603) 107 mg/dL Abnormal 0-99 [facility]erensive [facility]; [facility] Work Phone: Comment on above: Nov 12 2021; PATIENT WAS FASTINGPERFORMED BY: CB [facility] Dyoqwp7125 [address] RoadDublin [place] [id number] LIPID PANEL (01455) 2.0 {ratio} Normal 0.0-3.2 Comp [facility]; [facility] Work Phone: Comment on above: LDL/HDL Ratio Men Wo men 1/2 Avg.Risk 1.0 1.5 Avg.Risk 3.6 3.2 2X Avg.Risk 6.2 5.0 3X Avg.Risk 8.0 6.1 Nov 12 2021; PATIENT WAS FASTINGPERFORMED BY: CB [facility] Anwklb5715 [address] Start[employer] WeekendDublin [place] [id number] Metabolic Panel, Comprehensi ve (72585)Ordered By: Shopfitter on 11-12-2021 Albumin [Mass/Vol] 4.5 g/dL Normal 3.7-4.7 [facility] Internal Medicine; [facility] Work Phone: Comment on above: Nov 12 2021; PATIENT WAS FASTINGPERFORMED BY: CB [facility] Xvfbaa9791 [address] RoadDublin [place] [id number] Albumin/Globulin [Mass ratio] 1.7 {ratio} Normal 1.2-2.2 [facility]; [facility] Work Phone: Comment on above: Nov 12 2021; PATIENT WAS FASTINGPERFORMED BY: CB [facility] Iitqrr7495 [address] RoadDublin [place] [id number] ALP [Catalytic activity/Vol] 94 U/L Normal 44-121 [facility]; [facility] Work Phone: Comment on above: Please note refere nce interval change Nov 12 2021; PATIENT WAS FASTINGPERFORMED BY: CB [facility] Jivoov6177 [address] RoadDublin [place] [id number] ALT [Catalytic activity/Vol] 47 U/L Abnormal 0-32 [facility]; [facility] Work Phone: Comment on above: Nov 12 2021; PATIENT WAS FASTINGPERFORMED BY: CB [facility] Rommhx8287 [address] RoadDublin [place] [id number] AST [Catalytic activity/Vol] 45 U/L Abnormal 0-40 [facility]; [facility] Work Phone: Comment on above: Nov 12 2021; PATIENT WAS FASTINGPERFORMED BY: CB [facility] Brgvno6980 [address] RoadDublin [place] [id number] Bilirubin [Mass/Vol] 0.5 mg/dL Normal 0.0-1.2 Comp rehensive Internal Medicine; [facility] Work Phone: Comment on above: Nov 12 2021; PATIENT WAS FASTINGPERFORMED BY: CB [facility] Sgcmmo9500 [address] RoadDublin [place] [id number] Calcium [Mass/Vol] 9.7 mg/dL Normal 8.7-10.3 [facility] Internal Medicine; [facility] Work Phone: Comment on above: Nov 12 2021; PATIENT WAS FASTINGPERFORMED BY: CB [facility] Mnqewh4726 [address] RoadDublin [place] [id number] Chloride [Moles/Vol] 103 mmol/L Normal 96-106 Comp rehensive Internal Medicine; [facility] Work Phone: Comment on above: Nov 12 2021; PATIENT WAS FASTINGPERFORMED BY: ANGELI Coello6370 Litzy KimClinton County Hospital [id number] CO2 [Moles/Vol] 24 mmol/L Normal 20-29 [facility] Internal Medicine; [facility] Work Phone: Comment on above: Nov 12 2021; PATIENT WAS FASTINGPERFORMED BY: ANGELI Coello6370 Litzy RosasNorthern Regional Hospital [id number] Creatinine [Mass/Vol] 0.73 mg/dL Normal 0.57-1.00 Com prehensive Internal Medicine; [facility] Work Phone: Comment on above: Nov 12 2021; PATIENT WAS FASTINGPERFORMED BY: ANGELI Coello6370 [address] RalphNorthern Regional Hospital [id number] GFR/1.73 sq M.predicted among blacks CKD-EPI (S/P/Bld) [...] PATIENT WAS FASTINGPERFORMED BY: ANGELI Coello6370 Litzy RosasNorthern Regional Hospital [id number] GFR/1.73 sq M.predicted among non-blacks CKD-EPI (S/P/Bld) [Vol rate/Area] 80 mL/min/1.73 Normal [facility]; [facility] Work Phone: Comment on above: Nov 12 2021; PATIENT WAS FASTINGPERFORMED BY: ANGELI Coello6370 Litzy CartyNovant Health [id number] Globulin (S) [Mass/Vol] 2.7 g/dL Normal 1.5-4.5 C omprehensive Internal Medicine; [facility] Work Phone: Comment on above: Nov 12 2021; PATIENT WAS FASTINGPERFORMED BY: CB [facility] Bssmuc2217 [address] RoadDublin [place] [id number] Glucose [Mass/Vol] 129 mg/dL Abnormal 65-99 [facility] Internal Medicine; [facility] Work Phone: Comment on above: Nov 12 2021; PATIENT WAS FASTINGPERFORMED BY: CB [facility] Zrkege2555 [address] RoadDublin [place] [id number] Potassium [Moles/Vol] 4.7 mmol/L Normal 3.5-5.2 [facility] Internal Medicine; [facility] Work Phone: Comment on above: Nov 12 2021; PATIENT WAS FASTINGPERFORMED BY: CB [facility] Nozphk3202 [address] RoadDublin [place] [id number] Protein [Mass/Vol] 7.2 g/dL Normal 6.0-8.5 [facility] Internal Medicine; [facility] Work Phone: Comment on above: Nov 12 2021; PATIENT WAS FASTINGPERFORMED BY: CB [facility] Kahlpa3444 [address] RoadDublin [place] [id number] Sodium [Moles/Vol] 139 mmol/L Normal 134-144 [facility] Internal Medicine; [facility] Work Phone: Comment on above: Nov 12 2021; PATIENT WAS FASTINGPERFORMED BY: CB [facility] Wlowwq3078 [address] RoadDublin [place] [id number] Urea nitrogen [Mass/Vol] 14 mg/dL Normal 8-27 [facility] Internal Medicine; [facility] Work Phone: Comment on above: Nov 12 2021; PATIENT WAS FASTINGPERFORMED BY: CB [facility] Khyvcr9534 [address] RoadDublin [place] [id number] Urea nitrogen/Creatinine [Mass ratio] 19 mg/mg Normal 12-28 [facility] Internal Medicine; [facility] Work Phone: Comment on above: Nov 12 2021; PATIENT WAS FASTINGPERFORMED BY: CB [facility] Mqocfh9337 [address] RoadDublin [place] [id number] TSH (THYROID STIMULATING HOR BARRON) (57073)Ordered By: Shopfitter on 11-12-2021 TSH Qn 3.650 {uIU/mL} Normal 0.450-4.50 0 [facility]; [facility] Work Phone: Comment on above: NOV 12 2021; PATIENT WAS FASTINGPERFORMED BY: LabcoClara Maass Medical CenterZhzyzn8098 McgheeMiss[facility] Center [id number] Blood Glucose , Office (8296 2)Ordered By: Nellie Knox on 08-13-2021 Glucose Glucometer (BldC) [Moles/Vol] 198 1 Normal [facility]; [facility] Work Phone: Comment on above: 198 HgA1C , Office ([id number])Ordere d By: Nellie Knox on 08-13-2021 HbA1c (Bld) [Mass fraction] 7.9 % Abnormal 4.6 - 7.1 [facility]; [facility] Work Phone: Blood Glucose , Office (1496 2)Ordered By: Haseeb Brizuela on 03-19-2021 Glucose Glucometer (BldC) [Moles/Vol] 197 1 Normal [facility]; [facility] Work Phone: HgA1C , Office ([id number])Ordere d By: Haseeb Brizuela on 03-19-2021 HbA1c (Bld) [Mass fraction] 7.4 % Abnormal 4.6 - 7.1 [facility]; [facility] Work Phone: CALCIFEDIOL ([phone])Ordered B y: Shopfitter on 03-13-2021 25-hydroxyvitamin D [Mass/Vol] 37.5 ng/mL Normal 30.0-100.0 [facility]; [facility] Work Phone: Comment on above: Vitamin D deficiency has been defined by the [place] ofMedicine and an Endocrine Society practice guideline as alevel of serum 25-OH vitamin D less than 20 ng/mL (1,2).The Endocrine Society went on to further define vitamin Dinsufficiency as a level between 21 and 29 ng/mL (2).1. IOM ([place] of Medicine). 2010. Dietary reference intakes for calcium and D. [place]: The National Academies Press.2. Ace BILLINGSLEY, Lurdes WELLS, Cynthia COFFMAN, et al. Evaluation, treatment, and prevention of vitamin D deficiency: an Endocrine Society clinical practice guideline. JCEM. 2010; 96(7):1911-30. PATIENT WAS FASTINGP ERFORMED BY: CB [facility] Obnhjk1932 [address] RoadDublin [place] [id number] LIPID PANEL (79492)Ordered B y: Shopfitter on 03-13-2021 Cholesterol [Mass/Vol] 228 mg/dL Abnormal 100-199 [facility]ensive [facility]; [facility] Work Phone: Comment on above: PATIENT WAS FASTINGP ERFORMED BY: CB [facility] Wvddnn1454 [address] RoadDublin [place] [id number] Cholesterol in HDL [Mass/Vol] 47 mg/dL Normal [facility]; [facility] Work Phone: Comment on above: PATIENT WAS FASTINGP ERFORMED BY: CB [facility] Kieygt0759 [address] RoadDublin [place] [id number] Triglyceride [Mass/Vol] 141 mg/dL Normal 0-149 C ompohiohealth van wert hospitalensive Internal Medicine; [facility] Work Phone: Comment on above: PATIENT WAS FASTINGP ERFORMED BY: CB [facility] Wrockz3253 [address] RoadDublin [place] [id number] LIPID PANEL (03472) 26 mg/dL Normal 5-40 Compr ensive Internal Medicine; [facility] Work Phone: Comment on above: PATIENT WAS FASTINGP ERFORMED BY: CB [facility] Thwoqd8912 [address] RoadDublin [place] [id number] LIPID PANEL (78771) 155 mg/dL Abnormal 0-99 Compr ensive Internal Medicine; [facility] Work Phone: Comment on above: PATIENT WAS FASTINGP ERFORMED BY: CB [facility] Rsrmtx0561 [address] RoadDublin [place] [id number] LIPID PANEL (29968) 3.3 {ratio} Abnormal 0.0-3.2 Comp [facility]ensive [facility]; [facility] Work Phone: Comment on above: LDL/HDL Ratio Men Wo men 1/2 Avg.Risk 1.0 1.5 Avg.Risk 3.6 3.2 2X Avg.Risk 6.2 5.0 3X Avg.Risk 8.0 6.1 PATIENT WAS FASTINGP ERFORMED BY: I.Systems6370 Paper.liHighlands-Cashiers Hospitalin [place] [id number] TSH (THYROID STIMULATING HOR BARRON) (36776)Ordered By: Shopfitter on 03-13-2021 TSH Qn 3.770 {uIU/mL} Normal 0.450-4.50 0 [facility]; [facility] Work Phone: Comment on above: PATIENT WAS FASTINGP ERFORMED BY: I.Systems6370 CodeBabyin [place] [id number] VITAMIN B12 AND FOLATES (821 50)Ordered By: Shopfitter on 03-13-2021 Cobalamin (Vitamin B12) [Mass/Vol] 825 pg/mL Normal 232-1245 [facility]; [facility] Work Phone: Comment on above: PATIENT WAS FASTINGP ERFORMED BY: I.Systems6370 [address] [employer] WeekendHighlands-Cashiers Hospitalin [place] [id number] Folate [Mass/Vol] 8.7 ng/mL Normal Compreh ensive Internal Medicine; [facility] Work Phone: Comment on above: A serum folate stephanie ntration of less than 3.1 ng/mL isconsidered to represent clinical deficiency. PATIENT WAS FASTINGP ERFORMED BY: I.Systems6370 [facility]heeMiss[facility] [id number] [facility] 02-14-2021 [facility] Nurse Visit (COVAMD) KAREN VILLALOBOS ([id number]) 1945 F Date Time Provider Department 02/14/21 JAMIL IVERSON (MOLD CLAMPER) COVBELLE During your visit today, we recorded the following information about you: Allergies As of Date: 02/14/2021 Noted Allergy Reaction PENICILLINS 03/03/2006 4 - Hives Date Reviewed: 11/06/2019 Reviewed by: Celena Kaba - Fully Assessed Order(s):[employer] SARS-COV-2 VACCINE 2D DOSE APPT [[id number]] Order #: [id number] Prescriptions as of 02/14/2021 Sig: VITAMIN E [...] of breast cancer in sister [Z80.*12/19/2018 Encounter Status:[facility] Blood Glucose , Office (8296 2)Ordered By: Haseeb Sherwood on 06-10-2020 Glucose Glucometer (BldC) [Moles/Vol] 138 1 Normal [facility] Work Phone: CALCIFEDIOL ([phone])Ordered B y: Shopfitter on 06-10-2020 25-Hydroxyvitamin D2+25-Hydroxyvitamin D3 [Mass/Vol] 38.8 ng/mL Normal 30.0-100.0 [facility] Work Phone: Comment on above: Vitamin D deficiency has been defined by the [place] ofMedicine and an Endocrine Society practice guideline as alevel of serum 25-OH vitamin D less than 20 ng/mL (1,2).The Endocrine Society went on to further define vitamin Dinsufficiency as a level between 21 and 29 ng/mL (2).1. IOM ([place] of Medicine). 2010. Dietary reference intakes for calcium and D. [place]: The National Academies Press.2. Ace MF, Lurdes NC, Cynthia COFFMAN, et al. Evaluation, treatment, and prevention of vitamin D deficiency: an Endocrine Society clinical practice guideline. JCEM. 2010; 96(7):1911-30. PATIENT NOT FASTINGP ERFORMED BY: appAttach Uobnma8760 [address] Domeeblin [place] [id number] HGB A1C (12950)Ordered By: S ystem Environmental Economist on 06-10-2020 HbA1c (Bld) [Mass fraction] 7.4 % Abnormal 4.8-5.6 [facility] Work Phone: Comment on above: . Prediabetes: 5.7 - 6.4 Diabetes: >6.4 Glycemic control for adults with diabetes: <7.0 PATIENT NOT FASTINGP ERFORMED BY: Satya Inti Dharma70 CodeBabyblin [place] [id number] VITAMIN B12 AND FOLATES (826 07)Ordered By: Shopfitter on 06-10-2020 Cobalamin (Vitamin B12) [Mass/Vol] 648 pg/mL Normal 232-1245 [facility] Work Phone: Comment on above: PATIENT NOT FASTINGP ERFORMED BY: Satya Inti Dharma70 [address] Domeeblin [place] [id number] Folate [Mass/Vol] 8.0 ng/mL Normal [facility] Internal Medicine Work Phone: Comment on above: A serum folate stephanie ntration of less than 3.1 ng/mL isconsidered to represent clinical deficiency. PATIENT NOT FASTINGP ERFORMED BY: appAttach Ftnnxf9252 [address] RoadDublin [place] [id number] LIPID PANEL (23400)Ordered B y: Shopfitter on 06-05-2020 Cholesterol [Mass/Vol] 242 mg/dL Abnormal 100-199 Co mprehensive Internal Medicine Work Phone: Comment on above: PATIENT WAS FASTINGP ERFORMED BY: Eletrogóes LabEmpressr Pngzqi0373 [address] [employer] WeekendDublin [place] [id number] Cholesterol in HDL [Mass/Vol] 48 mg/dL Normal [facility] Work Phone: Comment on above: PATIENT WAS FASTINGP ERFORMED BY: ANGELI LabComauri Utaaxo3118 [address] [facility] [place] [id number] Cholesterol in LDL [Mass/Vol] 170 mg/dL Abnormal 0-99 [facility] Work Phone: Comment on above: PATIENT WAS FASTINGP ERFORMED BY: ANGELI LabComauri Tvnboc4381 [address] [facility]bl[facility] [place] [id number] Cholesterol in LDL/Cholesterol in HDL [Mass ratio] 3.5 {ratio} Abnormal 0.0-3.2 [facility] Work Phone: Comment on above: LDL/HDL Ratio Men Wo men 1/2 Avg.Risk 1.0 1.5 Avg.Risk 3.6 3.2 2X Avg.Risk 6.2 5.0 3X Avg.Risk 8.0 6.1 PATIENT WAS FASTINGP ERFORMED BY: ANGELI LabDajuan WeldonCwnaxz2268 [address] [facility] [id number] Cholesterol in VLDL [Mass/Vol] 24 mg/dL Normal 5-40 [facility] Work Phone: Comment on above: PATIENT WAS FASTINGP ERFORMED BY: ANGELI LabComauri Lylgqk0032 [facility] Centerblin [place] [id number] Triglyceride [Mass/Vol] 121 mg/dL Normal 0-149 C omprehensive Internal Medicine Work Phone: Comment on above: PATIENT WAS FASTINGP ERFORMED BY: ANGELI LabComauri Pkduyr8425 [facility]in [place] [id number] Metabolic Panel, Comprehensi ve (65829)Ordered By: Shopfitter on 06-05-2020 Albumin [Mass/Vol] 4.4 g/dL Normal 3.7-4.7 Compre hensamerican fork hospital Internal Medicine Work Phone: Comment on above: PATIENT WAS FASTINGP ERFORMED BY: ANGELI [facility] Vfvvhs9841 [address] [facility]in [place] [id number] Albumin/Globulin [Mass ratio] 1.5 {ratio} Normal 1.2-2.2 [facility] Work Phone: Comment on above: PATIENT WAS FASTINGP ERFORMED BY: ANGELI [facility] Grcdfu5629 [address] RoadDublin [place] [id number] ALP [Catalytic activity/Vol] 91 [iU]/L Normal 39-117 [facility] Work Phone: Comment on above: PATIENT WAS FASTINGP ERFORMED BY: ANGELI [facility] Uqkgpy4003 [address] RoadDublin [place] [id number] ALP [Catalytic activity/Vol] 91 U/L Normal 39-117 [facility] Work Phone: Comment on above: PATIENT WAS FASTINGP ERFORMED BY: ANGELI [facility] Zrhkib5298 [address] RoadDublin [place] [id number] ALT [Catalytic activity/Vol] 37 [iU]/L Abnormal 0-32 [facility] Work Phone: Comment on above: PATIENT WAS FASTINGP ERFORMED BY: ANGELI [facility] Xvvzug4730 [address] RoadDublin [place] [id number] ALT [Catalytic activity/Vol] 37 U/L Abnormal 0-32 [facility] Work Phone: Comment on above: PATIENT WAS FASTINGP ERFORMED BY: ANGELI [facility] Aqowbv7469 [address] RoadDublin [place] [id number] AST [Catalytic activity/Vol] 40 [iU]/L Normal 0-40 [facility] Work Phone: Comment on above: PATIENT WAS FASTINGP ERFORMED BY: [facility] Rfmoby0481 [address] RoadDublin [place] [id number] AST [Catalytic activity/Vol] 40 U/L Normal 0-40 [facility] Work Phone: Comment on above: PATIENT WAS FASTINGP ERFORMED BY: [facility] Sfthyy8395 [address] RoadDublin [place] [id number] Bilirubin [Mass/Vol] 0.5 mg/dL Normal 0.0-1.2 Comp [facility] Internal Medicine Work Phone: Comment on above: PATIENT WAS FASTINGP ERFORMED BY: [facility] Wejexf0530 [address] RoadDublin [place] [id number] Calcium [Mass/Vol] 9.9 mg/dL Normal 8.7-10.3 [facility] Internal Medicine Work Phone: Comment on above: PATIENT WAS FASTINGP ERFORMED BY: CB [facility] Rvnyip5762 [address] RoadDublin [place] [id number] Chloride [Moles/Vol] 105 mmol/L Normal 96-106 Comp rehensive Internal Medicine Work Phone: Comment on above: PATIENT WAS FASTINGP ERFORMED BY: CB [facility] Zdmuwg2305 [address] RoadDublin [place] [id number] CO2 [Moles/Vol] 26 mmol/L Normal 20-29 Comprehen [facility] Internal Medicine Work Phone: Comment on above: PATIENT WAS FASTINGP ERFORMED BY: CB [facility] Eqndjq3726 [address] RoadDublin [place] [id number] Creatinine [Mass/Vol] 0.81 mg/dL Normal 0.57-1.00 [facility] Work Phone: Comment on above: PATIENT WAS FASTINGP ERFORMED BY: CB [facility] Ctavvd3106 [address] RoadDublin [place] [id number] GFR/1.73 sq M predicted among blacks CKD-EPI (S/P/Bld) [Vol rate/Area] 83 mL/min/1.73 Normal [facility] Work Phone: Comment on above: PATIENT WAS FASTINGP ERFORMED BY: CB [facility] Lswvfi1774 [address] RoadDublin [place] [id number] GFR/1.73 sq M predicted among non-blacks CKD-EPI (S/P/Bld) [Vol rate/Area] 72 mL/min/1.73 Normal [facility] Work Phone: Comment on above: PATIENT WAS FASTINGP ERFORMED BY: CB [facility] Oolbsz0032 [address] RoadDublin [place] [id number] Globulin (S) [Mass/Vol] 3.0 g/dL Normal 1.5-4.5 C [facility] Work Phone: Comment on above: PATIENT WAS FASTINGP ERFORMED BY: CB [facility] Qqztwt8025 [address] RoadDublin [place] [id number] Glucose [Mass/Vol] 154 mg/dL Abnormal 65-99 [facility] Internal Medicine Work Phone: Comment on above: PATIENT WAS FASTINGP ERFORMED BY: ANGELI [facility] Luzhof3789 [address] RoadDublin [place] [id number] Potassium [Moles/Vol] 5.3 mmol/L Abnormal 3.5-5.2 [facility] Internal Medicine Work Phone: Comment on above: PATIENT WAS FASTINGP ERFORMED BY: ANGELI [facility] Eywrss2962 [address] RoadDublin [place] [id number] Protein [Mass/Vol] 7.4 g/dL Normal 6.0-8.5 [facility] Internal Medicine Work Phone: Comment on above: PATIENT WAS FASTINGP ERFORMED BY: ANGELI [facility] Dmfpmj3042 [address] Roadblin [place] [id number] Sodium [Moles/Vol] 143 mmol/L Normal 134-144 [facility] Internal Medicine Work Phone: Comment on above: PATIENT WAS FASTINGP ERFORMED BY: ANGELI [facility]Saint [facility] Kjrwga0864 [address] Roadblin [place] [id number] Urea nitrogen [Mass/Vol] 11 mg/dL Normal 8-27 [facility] Internal Medicine Work Phone: Comment on above: PATIENT WAS FASTINGP ERFORMED BY: [facility] Eofoed8162 [address] Roadblin [place] [id number] Urea nitrogen/Creatinine [Mass ratio] 14 mg/mg Normal 12-28 [facility] Internal Medicine Work Phone: Comment on above: PATIENT WAS FASTINGP ERFORMED BY: [facility] Thmoal0242 [address]Dublin [place] [id number] TSH (THYROID STIMULATING HOR BARRON) ([id number])Ordered By: Shopfitter on 06-05-2020 TSH Qn 2.590 {uIU/mL} Normal 0.450-4.50 0 [facility] Internal Medicine Work Phone: Comment on above: PATIENT WAS FASTINGP ERFORMED BY: [facility] Pphvdr5300 [address] RoadDublin [place] [id number] LIPID PANEL ([id number])Ordered B y: Shopfitter on 02-07-2020 Cholesterol [Mass/Vol] 224 mg/dL Abnormal 100-199 [facility] Work Phone: Comment on above: PATIENT WAS FASTINGP ERFORMED BY: ANGELI LabComauri Fnoezo6804 [address] RoadDublin [place] [id number] Cholesterol in HDL [Mass/Vol] 50 mg/dL Normal [facility] Work Phone: Comment on above: PATIENT WAS FASTINGP ERFORMED BY: ANGELI [facility] Phuiye1220 [address] RoadDublin [place] [id number] Cholesterol in LDL [Mass/Vol] 149 mg/dL Abnormal 0-99 [facility] Work Phone: Comment on above: PATIENT WAS FASTINGP ERFORMED BY: ANGELI LabComauri WeldonNikeie[address] [facility] [place] [id number] Cholesterol in LDL/Cholesterol in HDL [Mass ratio] 3.0 {ratio} Normal 0.0-3.2 [facility] Work Phone: Comment on above: LDL/HDL Ratio Men Wo men 1/2 Avg.Risk 1.0 1.5 Avg.Risk 3.6 3.2 2X Avg.Risk 6.2 5.0 3X Avg.Risk 8.0 6.1 PATIENT WAS FASTINGP ERFORMED BY: ANGELI LabComauri Ykemqs[address] [facility] [place] [id number] Cholesterol in VLDL [Mass/Vol] 25 mg/dL Normal 5-40 [facility] Work Phone: Comment on above: PATIENT WAS FASTINGP ERFORMED BY: ANGELI [facility] Syllsn2113 [address] RoadDublin [place] [id number] Triglyceride [Mass/Vol] 123 mg/dL Normal 0-149 [facility] Internal [facility] Work Phone: Comment on above: PATIENT WAS FASTINGP ERFORMED BY: ANGELI [facility] Hzuyyc7642 [address] RoadDublin [place] [id number] Metabolic Panel, Comprehensi ve ([id number])Ordered By: Shopfitter on 02-07-2020 Albumin [Mass/Vol] 4.5 g/dL Normal 3.7-4.7 [facility] Internal Medicine Work Phone: Comment on above: PATIENT WAS FASTINGP ERFORMED BY: CB [facility] Wzoxjy9849 [address] RoadDublin [place] [id number] Albumin/Globulin [Mass ratio] 1.6 {ratio} Normal 1.2-2.2 [facility] Work Phone: Comment on above: PATIENT WAS FASTINGP ERFORMED BY: CB [facility] Uzgjlx8499 [address] RoadDublin [place] [id number] ALP [Catalytic activity/Vol] 91 [iU]/L Normal 39-117 [facility] Work Phone: Comment on above: PATIENT WAS FASTINGP ERFORMED BY: CB [facility] Rtsmmg3381 [address] RoadDublin [place] [id number] ALP [Catalytic activity/Vol] 91 U/L Normal 39-117 [facility] Work Phone: Comment on above: PATIENT WAS FASTINGP ERFORMED BY: [facility] Xfwyid7230 [address] RoadDublin [place] [id number] ALT [Catalytic activity/Vol] 44 [iU]/L Abnormal 0-32 [facility] Work Phone: Comment on above: PATIENT WAS FASTINGP ERFORMED BY: [facility] Nfjzgi3751 [address] RoadDublin [place] [id number] ALT [Catalytic activity/Vol] 44 U/L Abnormal 0-32 [facility] Work Phone: Comment on above: PATIENT WAS FASTINGP ERFORMED BY: CB [facility] Lwbhds3106 [address] RoadDublin [place] [id number] AST [Catalytic activity/Vol] 43 [iU]/L Abnormal 0-40 [facility] Work Phone: Comment on above: PATIENT WAS FASTINGP ERFORMED BY: CB [facility] Kfnnor3658 [address] RoadDublin [place] [id number] AST [Catalytic activity/Vol] 43 U/L Abnormal 0-40 [facility] Work Phone: Comment on above: PATIENT WAS FASTINGP ERFORMED BY: CB [facility] Huwxxt8880 [address] RoadDublin [place] [id number] Bilirubin [Mass/Vol] 0.4 mg/dL Normal 0.0-1.2 [facility] Work Phone: Comment on above: PATIENT WAS FASTINGP ERFORMED BY: CB [facility] Iuxcul4743 [address] RoadDublin [place] [id number] Calcium [Mass/Vol] 10.1 mg/dL Normal 8.7-10.3 [facility] Internal Medicine Work Phone: Comment on above: PATIENT WAS FASTINGP ERFORMED BY: CB [facility] Dtdtxj9012 [address] RoadDublin [place] [id number] Chloride [Moles/Vol] 102 mmol/L Normal 96-106 [facility] Work Phone: Comment on above: PATIENT WAS FASTINGP ERFORMED BY: CB [facility] Hxskkr4350 [address] RoadDublin [place] [id number] CO2 [Moles/Vol] 24 mmol/L Normal 20-29 [facility] Internal Medicine Work Phone: Comment on above: PATIENT WAS FASTINGP ERFORMED BY: CB [facility] Nwoorn8166 [address] RoadDublin [place] [id number] Creatinine [Mass/Vol] 0.79 mg/dL Normal 0.57-1.00 [facility] Internal Medicine Work Phone: Comment on above: PATIENT WAS FASTINGP ERFORMED BY: CB [facility] Byhkrb3642 [address] RoadDublin [place] [id number] GFR/1.73 sq M predicted among blacks CKD-EPI (S/P/Bld) [Vol rate/Area] 85 mL/min/1.73 Normal [facility] Work Phone: Comment on above: PATIENT WAS FASTINGP ERFORMED BY: CB [facility] Iaegsw5057 [address] RoadDublin [place] [id number] GFR/1.73 sq M predicted among non-blacks CKD-EPI (S/P/Bld) [Vol rate/Area] 74 mL/min/1.73 Normal [facility] Internal Medicine Work Phone: Comment on above: PATIENT WAS FASTINGP ERFORMED BY: CB [facility] Alsolw0293 [address] RoadDublin [place] [id number] Globulin (S) [Mass/Vol] 2.9 g/dL Normal 1.5-4.5 [facility] Work Phone: Comment on above: PATIENT WAS FASTINGP ERFORMED BY: CB [facility] Epcguk1865 [address] RoadDublin [place] [id number] Glucose [Mass/Vol] 135 mg/dL Abnormal 65-99 [facility] Internal Medicine Work Phone: Comment on above: PATIENT WAS FASTINGP ERFORMED BY: CB [facility] Evqvwc9288 [address] RoadDublin [place] [id number] Potassium [Moles/Vol] 4.4 mmol/L Normal 3.5-5.2 [facility] Internal Medicine Work Phone: Comment on above: PATIENT WAS FASTINGP ERFORMED BY: [facility] Unuabs6477 [address] RoadDublin [place] [id number] Protein [Mass/Vol] 7.4 g/dL Normal 6.0-8.5 [facility] Internal Medicine Work Phone: Comment on above: PATIENT WAS FASTINGP ERFORMED BY: CB [facility] Khdnll8818 [address] RoadDublin [place] [id number] Sodium [Moles/Vol] 141 mmol/L Normal 134-144 [facility] Internal Medicine Work Phone: Comment on above: PATIENT WAS FASTINGP ERFORMED BY: CB [facility] Gonxhz9730 [address] RoadDublin [place] [id number] Urea nitrogen [Mass/Vol] 13 mg/dL Normal 8-27 [facility] Internal Medicine Work Phone: Comment on above: PATIENT WAS FASTINGP ERFORMED BY: CB [facility] Oudqlz1624 [address] RoadDublin [place] [id number] Urea nitrogen/Creatinine [Mass ratio] 16 mg/mg Normal 12-28 [facility] Internal Medicine Work Phone: Comment on above: PATIENT WAS FASTINGP ERFORMED BY: [facility]6[address] [facility] [id number] TSH (THYROID STIMULATING HOR BARRON) ([id number])Ordered By: Shopfitter on 02-07-2020 TSH Qn 4.560 {uIU/mL} Abnormal 0.450-4.50 0 [facility] Work Phone: Comment on above: PATIENT WAS FASTINGP ERFORMED BY: [address] [id number] Blood Glucose , Office (0473 2)on 11-06-2019 Glucose Glucometer (BldC) [Moles/Vol] 142 1 Normal [facility] Work Phone: HgA1C , Office (08029)on HbA1c (Bld) [Mass fraction] 7.1 % Normal 4.6 - 7.1 [facility] Work Phone: CBC, Platelets & Auto Diff ( [phone])Ordered By: Shopfitter on 10-31-2019 Basophils (Bld) [#/Vol] 0.0 {x10E3/uL} Normal 0.0-0.2 [facility] Work Phone: Comment on above: PATIENT WAS FASTINGP ERFORMED BY: [facility]6[address] [facility] [id number] Basophils (Bld) [#/Vol] 0.0 10*3/uL Normal 0.0-0.2 [facility] Work Phone: Comment on above: PATIENT WAS FASTINGP ERFORMED BY: [facility]6[address] [facility] [id number] Basophils/100 WBC (Bld) 0 % Normal C [facility] Work Phone: Comment on above: PATIENT WAS FASTINGP ERFORMED BY: [facility]6[address] [facility] [id number] Eosinophils (Bld) [#/Vol] 0.0 {x10E3/uL} Normal 0.0-0.4 [facility] Work Phone: Comment on above: PATIENT WAS FASTINGP ERFORMED BY: [facility]la[facility]6[address] [facility] [id number] Eosinophils (Bld) [#/Vol] 0.0 10*3/uL Normal 0.0-0.4 [facility] Work Phone: Comment on above: PATIENT WAS FASTINGP ERFORMED BY: [facility]la[facility]6[address] [facility] [id number] Eosinophils/100 WBC (Bld) 0 % Normal [facility] Work Phone: Comment on above: PATIENT WAS FASTINGP ERFORMED BY: [facility]6[address] [facility] [id number] Erythrocyte distribution width (RBC) [Ratio] 14.1 % Normal 12.3-15.4 [facility] Work Phone: Comment on above: PATIENT WAS FASTINGP ERFORMED BY: [place] 5169970 [facility] [id number] Hematocrit (Bld) [Volume fraction] 38.2 % Normal 34.0-46.6 [facility] Work Phone: Comment on above: PATIENT WAS FASTINGP ERFORMED BY: [facility]6[address] [facility] [id number] Hemoglobin (Bld) [Mass/Vol] 12.8 g/dL Normal 11.1-15.9 [facility] Work Phone: Comment on above: PATIENT WAS FASTINGP ERFORMED BY: [facility]6[address] [facility] [id number] Immature granulocytes (Bld) [#/Vol] 0.0 {x10E3/uL} Normal 0.0-0.1 [facility] Work Phone: Comment on above: PATIENT WAS FASTINGP ERFORMED BY: LabSteven Ville 4363970 [facility] [id number] Immature granulocytes (Bld) [#/Vol] 0.0 10*3/uL Normal 0.0-0.1 [facility] Work Phone: Comment on above: PATIENT WAS FASTINGP ERFORMED BY: ANGELI DawnSaint [facility] Bemwgl3371 [facility] [id number] Immature granulocytes/100 WBC (Bld) 0 % Normal [facility] Work Phone: Comment on above: PATIENT WAS FASTINGP ERFORMED BY: ANGELI DawnSaint [facility] Sydfyj3979 [facility] [id number] Lymphocytes (Bld) [#/Vol] 1.6 {x10E3/uL} Normal 0.7-3.1 [facility] Work Phone: Comment on above: PATIENT WAS FASTINGP ERFORMED BY: ANGELI Weldonlin6370 [facility] [id number] Lymphocytes (Bld) [#/Vol] 1.6 10*3/uL Normal 0.7-3.1 [facility] Work Phone: Comment on above: PATIENT WAS FASTINGP ERFORMED BY: ANGELI Simmons Paskkx4963 [facility] [id number] Lymphocytes/100 WBC (Bld) 32 % Normal [facility] Work Phone: Comment on above: PATIENT WAS FASTINGP ERFORMED BY: ANGELI Weldonlin6370 [facility] [id number] MCH (RBC) [Entitic mass] 29.7 pg Normal 26.6-33.0 [facility] Work Phone: Comment on above: PATIENT WAS FASTINGP ERFORMED BY: ANGELI DawnSaint [facility] Dbmivv9902 [facility] [id number] MCHC (RBC) [Mass/Vol] 33.5 g/dL Normal 31.5-35.7 [facility] prehensive Internal Medicine Work Phone: Comment on above: PATIENT WAS FASTINGP ERFORMED BY: ANGELI Weldonlin6370 [facility] [id number] MCV (RBC) [Entitic vol] 89 fL Normal 79-97 C [facility] Work Phone: Comment on above: PATIENT WAS FASTINGP ERFORMED BY: ANGELI Coello6370 [address]Dublin [place] [id number] Monocytes (Bld) [#/Vol] 0.4 {x10E3/uL} Normal 0.1-0.9 [facility] Work Phone: Comment on above: PATIENT WAS FASTINGP ERFORMED BY: ANGELI Coello6370 [address]Dublin [place] [id number] Monocytes (Bld) [#/Vol] 0.4 10*3/uL Normal 0.1-0.9 [facility] Work Phone: Comment on above: PATIENT WAS FASTINGP ERFORMED BY: ANGELI Coello6370 [address]Dublin [place] [id number] Monocytes/100 WBC (Bld) 9 % Normal [facility] Work Phone: Comment on above: PATIENT WAS FASTINGP ERFORMED BY: ANGELI Coello6370 [address]Dublin [place] [id number] Neutrophils (Bld) [#/Vol] 3.0 {x10E3/uL} Normal 1.4-7.0 [facility] Work Phone: Comment on above: PATIENT WAS FASTINGP ERFORMED BY: ANGELI Coello6370 [address]Dublin [place] [id number] Neutrophils (Bld) [#/Vol] 3.0 10*3/uL Normal 1.4-7.0 [facility] Work Phone: Comment on above: PATIENT WAS FASTINGP ERFORMED BY: ANGELI Weldonlin6370 [address] RoadDublin [place] [id number] Neutrophils/100 WBC (Bld) 59 % Normal [facility] Work Phone: Comment on above: PATIENT WAS FASTINGP ERFORMED BY: ANGELI Coello6370 [address]Dublin [place] [id number] Platelets (Bld) [#/Vol] 105 {x10E3/uL} Abnormal 150-450 [facility] Work Phone: Comment on above: PATIENT WAS FASTINGP ERFORMED BY: ANGELI Coello6370 [address]Dublin [place] [id number] Platelets (Bld) [#/Vol] 105 10*3/uL Abnormal 150-450 [facility] Work Phone: Comment on above: PATIENT WAS FASTINGP ERFORMED BY: CB [facility] Xjeali3013 [address] RoadDublin [place] [id number] RBC (Bld) [#/Vol] 4.31 {x10E6/uL} Normal 3.77-5.28 [facility] Work Phone: Comment on above: PATIENT WAS FASTINGP ERFORMED BY: [facility] Ppydha0738 [address] RoadDublin [place] [id number] RBC (Bld) [#/Vol] 4.31 10*6/uL Normal 3.77-5.28 [facility] Internal Medicine Work Phone: Comment on above: PATIENT WAS FASTINGP ERFORMED BY: [facility] Bikskh4203 [address] RoadDublin [place] [id number] WBC (Bld) [#/Vol] 5.0 {x10E3/uL} Normal 3.4-10.8 [facility] Internal Medicine Work Phone: Comment on above: PATIENT WAS FASTINGP ERFORMED BY: [facility] Sjxlpv8195 [address] RoadDublin [place] [id number] WBC (Bld) [#/Vol] 5.0 10*3/uL Normal 3.4-10.8 [facility] Internal Medicine Work Phone: Comment on above: PATIENT WAS FASTINGP ERFORMED BY: [facility] Qjmvju8502 [address] RoadDublin [place] [id number] LIPID PANEL ([id number])Ordered B y: Shopfitter on 10-31-2019 Cholesterol [Mass/Vol] 257 mg/dL Abnormal 100-199 [facility] Work Phone: Comment on above: PATIENT WAS FASTINGP ERFORMED BY: [facility] Mgchla3944 [address] RoadDublin [place] [id number] Cholesterol in HDL [Mass/Vol] 50 mg/dL Normal [facility] Work Phone: Comment on above: PATIENT WAS FASTINGP ERFORMED BY: ANGELI LabDajuan WeldonQrmyep[address] [facility]bl[facility] [place] [id number] Cholesterol in LDL [Mass/Vol] 178 mg/dL Abnormal 0-99 [facility] Work Phone: Comment on above: PATIENT WAS FASTINGP ERFORMED BY: ANGELI LabDajuan WeldonFhwupc[address] [facility]in [place] [id number] Cholesterol in LDL/Cholesterol in HDL [Mass ratio] 3.6 {ratio} Abnormal 0.0-3.2 [facility] Work Phone: Comment on above: LDL/HDL Ratio Men Wo men 1/2 Avg.Risk 1.0 1.5 Avg.Risk 3.6 3.2 2X Avg.Risk 6.2 5.0 3X Avg.Risk 8.0 6.1 PATIENT WAS FASTINGP ERFORMED BY: ANGELI Weldonlin6370 [facility] [id number] Cholesterol in VLDL [Mass/Vol] 29 mg/dL Normal 5-40 [facility] Work Phone: Comment on above: PATIENT WAS FASTINGP ERFORMED BY: ANGELI Weldonlin6370 [facility]in [place] [id number] Triglyceride [Mass/Vol] 143 mg/dL Normal 0-149 C [facility] Work Phone: Comment on above: PATIENT WAS FASTINGP ERFORMED BY: ANGELI LabDajuan Hjhbjt4192 [facility]in [place] [id number] Metabolic Panel, Comprehensi ve (63510)Ordered By: Shopfitter on 10-31-2019 Albumin [Mass/Vol] 4.5 g/dL Normal 3.5-4.8 Compre [facility] Internal Medicine Work Phone: Comment on above: PATIENT WAS FASTINGP ERFORMED BY: ANGELI Weldonlin6370 [facility] Centerblin [place] [id number] Albumin/Globulin [Mass ratio] 1.6 {ratio} Normal 1.2-2.2 [facility] Work Phone: Comment on above: PATIENT WAS FASTINGP ERFORMED BY: ANGELI [facility] Zypwum5136 [address] RoadDublin [place] [id number] ALP [Catalytic activity/Vol] 83 [iU]/L Normal 39-117 [facility] Work Phone: Comment on above: PATIENT WAS FASTINGP ERFORMED BY: ANGELI [facility] Tvtslt1841 [address] RoadDublin [place] [id number] ALP [Catalytic activity/Vol] 83 U/L Normal 39-117 [facility] Work Phone: Comment on above: PATIENT WAS FASTINGP ERFORMED BY: ANGELI [facility] Dwpqsl4786 [address] RoadDublin [place] [id number] ALT [Catalytic activity/Vol] 32 [iU]/L Normal 0-32 [facility] Work Phone: Comment on above: PATIENT WAS FASTINGP ERFORMED BY: ANGELI [facility] Wfrsqo9862 [address] RoadDublin [place] [id number] ALT [Catalytic activity/Vol] 32 U/L Normal 0-32 [facility] Work Phone: Comment on above: PATIENT WAS FASTINGP ERFORMED BY: ANGELI [facility] Rzhywz2848 [address] RoadDublin [place] [id number] AST [Catalytic activity/Vol] 33 [iU]/L Normal 0-40 [facility] Work Phone: Comment on above: PATIENT WAS FASTINGP ERFORMED BY: ANGEIL [facility] Femuga3965 [address] RoadDublin [place] [id number] AST [Catalytic activity/Vol] 33 U/L Normal 0-40 [facility] Work Phone: Comment on above: PATIENT WAS FASTINGP ERFORMED BY: ANGELI [facility] Ucicne1614 [address] RoadDublin [place] [id number] Bilirubin [Mass/Vol] 0.2 mg/dL Normal 0.0-1.2 [facility] Internal Medicine Work Phone: Comment on above: PATIENT WAS FASTINGP ERFORMED BY: ANGELI [facility] Uqjtgs5675 [address] RoadDublin [place] [id number] Calcium [Mass/Vol] 10.0 mg/dL Normal 8.7-10.3 [facility] Internal Medicine Work Phone: Comment on above: PATIENT WAS FASTINGP ERFORMED BY: ANGELI LabComauri Zgcktr4614 [address] RoadDublin [place] [id number] Chloride [Moles/Vol] 105 mmol/L Normal 96-106 Comp rehensive Internal Medicine Work Phone: Comment on above: PATIENT WAS FASTINGP ERFORMED BY: ANGELI [facility] Ftqxso[address] [facility]in [place] [id number] CO2 [Moles/Vol] 18 mmol/L Abnormal 20-29 Comprehen [facility] Internal Medicine Work Phone: Comment on above: PATIENT WAS FASTINGP ERFORMED BY: ANGELI [facility] Lbbzen9622 Mcghee RoadNovant Health [id number] Creatinine [Mass/Vol] 0.73 mg/dL Normal 0.57-1.00 [facility] Work Phone: Comment on above: PATIENT WAS FASTINGP ERFORMED BY: ANGELI [facility] Vkzcni6922 [address] RoadHighlands-Cashiers Hospitalin [place] [id number] GFR/1.73 sq M predicted among blacks CKD-EPI (S/P/Bld) [Vol rate/Area] 94 mL/min/1.73 Normal [facility] Work Phone: Comment on above: PATIENT WAS FASTINGP ERFORMED BY: ANGELI [facility] Ggclsi0207 Mc[address] RoadHighlands-Cashiers Hospitalin [place] [id number] GFR/1.73 sq M predicted among non-blacks CKD-EPI (S/P/Bld) [Vol rate/Area] 81 mL/min/1.73 Normal [facility] Work Phone: Comment on above: PATIENT WAS FASTINGP ERFORMED BY: ANGELI [facility] Hwucaq4932 [address] RoadHighlands-Cashiers Hospitalin [place] [id number] Globulin (S) [Mass/Vol] 2.9 g/dL Normal 1.5-4.5 C omprehensive Internal Medicine Work Phone: Comment on above: PATIENT WAS FASTINGP ERFORMED BY: ANGELI [facility] Bjxqat1102 [address] RoadDublin [place] [id number] Glucose [Mass/Vol] 139 mg/dL Abnormal 65-99 [facility] Internal Medicine Work Phone: Comment on above: PATIENT WAS FASTINGP ERFORMED BY: CB [facility] Arlwhb8910 [address] RoadDublin [place] [id number] Potassium [Moles/Vol] 4.5 mmol/L Normal 3.5-5.2 [facility] Internal Medicine Work Phone: Comment on above: PATIENT WAS FASTINGP ERFORMED BY: ANGELI [facility] Qmfosf5178 [address] RoadDublin [place] [id number] Protein [Mass/Vol] 7.4 g/dL Normal 6.0-8.5 [facility] Internal Medicine Work Phone: Comment on above: PATIENT WAS FASTINGP ERFORMED BY: ANGELI [facility] Wyjesz2422 [address] RoadDublin [place] [id number] Sodium [Moles/Vol] 142 mmol/L Normal 134-144 [facility] Internal Medicine Work Phone: Comment on above: PATIENT WAS FASTINGP ERFORMED BY: ANGELI [facility] Pqbwfw6832 [address] Roadblin [place] [id number] Urea nitrogen [Mass/Vol] 15 mg/dL Normal 8-27 [facility] Internal Medicine Work Phone: Comment on above: PATIENT WAS FASTINGP ERFORMED BY: ANGELI [facility] Tvoira4784 [address] RoadHighlands-Cashiers Hospitalin [place] [id number] Urea nitrogen/Creatinine [Mass ratio] 21 mg/mg Normal 12-28 [facility] Internal Medicine Work Phone: Comment on above: PATIENT WAS FASTINGP ERFORMED BY: CB [facility] Fucdem1564 [address] RoadDublin [place] [id number] TSH ([id number])Ordered By: Eb Arauz on 10-31-2019 TSH Qn 3.020 {uIU/mL} Normal 0.450-4.50 0 [facility] Work Phone: Comment on above: PATIENT WAS FASTINGP ERFORMED BY: ANGELI [facility] Pwjeml5454 [address] RoadDublin [place] [id number] Blood Glucose , Office (0096 2)Ordered By: Haseeb Sherwood on 08-28-2019 Glucose Glucometer (BldC) [Moles/Vol] 92 1 Normal [facility] Work Phone: HgA1C , Office (13373)Ordere d By: Haseeb Sherwood on 08-28-2019 HbA1c (Bld) [Mass fraction] 6.4 % Normal 4.6 - 7.1 [facility] Work Phone: TSH (THYROID STIMULATING HOR BARRON) ([id number])Ordered By: Shopfitter on 03-13-2019 Thyrotropin Qn 4.570 {uIU/mL} Abnormal 0.450-4.50 0 [facility] Work Phone: Comment on above: PATIENT NOT FASTINGP ERFORMED BY: ANGELI [facility] Ahdotr7882 [facility] [id number] CBC-Complete Blood Cnt No Di ffOrdered By: Shopfitter on 03-07-2019 Erythrocyte distribution width Ratio (RBC) 13.5 % Normal 11.6-14.6 [facility] Work Phone: Comment on above: [facility] Qeujnzae[address] [place], [place], [id number] Hematocrit Volume Fraction (Bld) 38.4 % Normal 37-47 [facility] Work Phone: Comment on above: [facility] Lzkwitfiaq[address] [address] [place], [place], [id number] Hemoglobin mass conc (Bld) 12.8 g/dL Normal 12.0-15.0 [facility] Work Phone: Comment on above: [facility] [address] [place], [place], [id number] MCH Entitic mass (RBC) 29.2 pg Normal 27.0-32.0 Co mprehensive Internal Medicine Work Phone: Comment on above: [facility] [address] [place], [place], [id number] MCHC mass conc (RBC) 33.3 {g/gl} Normal 32-36 Com prehensive Internal Medicine Work Phone: Comment on above: [facility] [address] [place], [address] MCV Entitic volume (RBC) 87.7 fL Normal 81-99 [facility] Work Phone: Comment on above: [facility] [address] [place], [address] Platelet mean volume Entitic volume (Bld) 11.3 fL Normal 6.2-12.0 Comprehensi ve Internal Medicine Work Phone: Comment on above: [facility] [address] [place], [address] Platelets #/vol (Bld) 111 10*3/uL Abnormal 150-450 Co [facility] Work Phone: Comment on above: [facility] [address] [place], [address] RBC #/vol (Bld) 4.38 {M/mm3} Normal 4.2-5.4 Compreh ensive Internal Medicine Work Phone: Comment on above: [facility] [address] [place], [address] WBC #/vol (Bld) 5.5 10*3/uL Normal 4.4-11.0 Comprehe nsive Internal Medicine Work Phone: Comment on above: [facility] [address] [place], [address] CBC-Complete Blood Cnt No Diff 43.3 fL Normal 35.1-43.9 [facility] Work Phone: Comment on above: [facility] [address] [place], [address] Hemoglobin A8oAeznrms By: stem Environmental Economist on 03-07-2019 Hemoglobin A1c/Hemoglobin.total mass fraction (Bld) 8.1 % Abnormal 4.2-6.3 Comprehensiv e Internal Medicine Work Phone: Comment on above: [facility] [address] [place], [place], [phone] Partial Thromboplast TimeOrd ered By: Shopfitter on 03-07-2019 aPTT Coag time (PPP) 29.2 s Normal 24.1-36.2 [facility] Work Phone: Comment on above: [facility] [address] [place], [address] Prothrombin Time w/INROrdere d By: Shopfitter on 03-07-2019 INR Coag RelTime (PPP) 1.0 {INR} Normal Co [facility] Internal Medicine Work Phone: Comment on above: [facility] [address] [place], [address] Prothrombin time (PT) Coag time (PPP) 13.4 s Normal 11.7-14.9 [facility] Work Phone: Comment on above: [facility] [address] [place], [address] Thyroid Stim Hormone (TSH)Or dered By: Shopfitter on 03-07-2019 Thyrotropin Qn 3.09 {uIU/mL} Normal 0.358-3.74 Compreh ensive Internal Medicine Work Phone: Comment on above: [facility] [address] [place], [address] Type AND ScreenOrdered By: Jarrod kilgoretem Environmental Economist on 03-07-2019 ABO and Rh group Nom (Bld) O POSITIVE Normal [facility] Work Phone: Comment on above: Surgery Date: Date of Last Transfusion (if within last 3 months) NHx of Preganancy in last 3 Months NoEver experience any problems with transfusion(s)? NHx of Transfusion in last 3 Months NReason for Type AND Screen/Red Cells: SURGERYTime: 0800SURGICAL PROCEDURE: HS D AND [facility] Ll[address] [place], [address] HgA1C , Office ([id number])Ordere d By: Federica Olivarez on 01-19-2019 Hemoglobin A1c/Hemoglobin.total mass fraction (Bld) 7.2 % Abnormal 4.6 - 7.1 Comprehensiv e Internal Medicine Work Phone: Comment on above: 7.2 TSH (THYROID STIMULATING HOR BARRON) ([id number])Ordered By: Shopfitter on 01-13-2019 Thyrotropin Qn 4.590 {uIU/mL} Abnormal 0.450-4.50 0 [facility] Work Phone: Comment on above: get done week of Nov 21; PATIENT NOT FASTINGPERFORMED BY: [facility] Gsbqdh3417 [facility] [id number] Bedside GlucoseOrdered By: Jarrod ystem Environmental Economist on 12-05-2018 Bedside Glucose 129 mg/dL Abnormal 70-110 Comprehen sive Internal Medicine Work Phone: Comment on above: MANAGEMENT OF PATIEN T CARE PER NURSING PROTOCOL [facility] LaboratoryPoint of Zauk[address] [facility] [place] [address] Bedside Glucose 117 mg/dL Abnormal 70-110 [facility] Work Phone: Comment on above: MANAGEMENT OF PATIEN T CARE PER NURSING PROTOCOL [facility] LaboratoryPoint of Memi[address] [facility] [place] [address] IMMUNOHISTOCHEMISTRYOrdered By: Shopfitter on 12-05-2018 IMMUNOHISTOCHEMISTRY See Note Normal Comp rehensive Internal Medicine Work Phone: Comment on above: Patient: KARISHMA VILLALOBOS : 1945 (73/F) Acct Num: [id number] Phys: Rob CLEMONS,Zee Unit Num: [id number] Loc: [facility] Specimen: [id number] Received: 12/07/18 - 1003 Spec Type: IMMUNO THIS IS A CORRECTED REPORT TISSUES 1 TISSUES: A. Axillary lymph node, NOS B. Axillary lymph node, NOS SPECIMEN INFORMATION: Tissue Source: A - Right axillary lymph nodes, lymphadenectomy, B - Lymph node tissue Clinical Info: Right breast cancer Specimen Number: [id number] A1-5, B CPT code: 91761 x2, 61487 x5 METHODOLOGY: Deparaffinized sections of prefer/formalin-fixed tissue [...] developed and their performance characteristics determined by [facility]. They may not have been cleared [...] for carcinoma. AM:mohit 12/08/18 PHYSICIAN AND INSTITUTION [place] [address] Signed David Hussein, DO 12/08/18 Patient: KARISHMA VILLALOBOS : 1945 (73/F) Acct Num: [id number] Phys: Rob CLEMONSZee Unit Num: [id number] Loc: [facility] Specimen: [id number] Received: 12/05/18 - 1259 Spec Type: AX NODE BX THIS IS A CORRECTED REPORT TISSUES 1 TISSUES: A. Axillary lymph node, NOS B. Axillary lymph node, NOS COMMENT Immunohistochemistry ([id number]) supports the above diagnosis. The lymph nodes show fatty replacement. Clinical correlation is suggested. Please make reference to case [id number] in which right partial breast contained two [...] one cassette. / SJ:mohit 12/07/18 TC:5 CPT: 35882, 33924, 02330 x4 HEADER OPERATION: Biopsy, axillary node, Neoprobe [...] AM:mohit 12/08/18 Signed David Hussein DO 12/08/18 [facility] [address] [place], [place], [address] Patient: KARISHMA VILLALOBOS : 1945 (73/F) Acct Num: [id number] Phys: Zee Rivas MD Unit Num: [id number] Loc: [facility] Specimen: [id number] Received: 12/05/18 - 125 Spec Type: AX NODE BX THIS IS A CORRECTED REPORT TISSUES 1 TISSUES: A. Axillary lymph node, NOS B. Axillary lymph node, NOS COMMENT Immunohistochemistry ([id number]) supports the above diagnosis. The lymph nodes show fatty replacement. Clinical correlation is suggested. Please make reference to case [id number] in which right partial breast contained two [...] one cassette. / SJ:mohit 12/07/18 TC:5 CPT: 51303, 20263, 10782 x4, 87585 HEADER OPERATION: Biopsy, axillary node, Neoprobe PRE-OP [...] Hussein DO 12/08/18 AXILLARY NODE BIOPSYOrdered By: Shopfitter on 10-10-2018 AXILLARY NODE BIOPSY See Note Normal Comp rehensive Internal Medicine Work Phone: Comment on above: Patient: KARISHMA VILLALOBOS : 1945 (73/F) Acct Num: [id number] Phys: Zee Rivas MD Unit Num: [id number] Loc: [facility] Specimen: [id number] Received: 10/10/181336 Spec Type: AX NODE BX TISSUES 1 TISSUES: A. Axillary lymph node, NOS B. Left breast, NOS C. Left breast, NOS COMMENT A. The lymph nodes are negative for metastatic carcinoma on multiple H AND E levels and immunohistochemical stains for cytokeratins ([id number]). The smallest lymph node is completed exhausted during frozen section diagnosis (block #2). C. Immunohistochemistry ([id number]) supports the above diagnosis. This portion of [...] adipose cut surface mixed with fibrous area. Security System Installer sections are submitted in 10 cassettes as follows: 1 - skin adjacent anterior margin and perpendicular posterior margin, 2 - perpendicular medial, lateral and superior margins, 3-6 - biopsy cavity with surrounding indurated tissue, entirely submitted and including adjacent perpendicular inferior margin, 7 - student services representative section adjacent to the biopsy cavity, 810 - student services representative sections away from the cavity. Sections [...] tissue. No obvious mass lesion is identified. Security System Installer sections are submitted in 12 cassettes as follows:1-5 - biopsy cavity with surrounding tissue, 6-12 - second biopsy cavity with surrounding tissue. Sections will be submitted after additional fixation. 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 Ancillary studies: (previously performed at [facility], [id number]) ER - positive (95%, strong) SC - positive (95%, moderate) Dkz6fhz - negative (0) Microcalcifications - present in nonneoplastic tissue, medial calcification blood vessel wall Clinical history - Please make reference to previous specimen from [facility] [id number] left breast, needle core biopsy diagnosis of [...] atypia. Complex atypical papillary lesion. Ancillary studies: ([id number]) ER - positive (<95%, strong) SC - positive (<95%, strong) Wgh0ztt - negative (0) Microcalcifications - present Clinical history - Please make reference to previous specimen ([id number]) right breast, needle localization biopsy from [facility] diagnosis of fragments of atypical papillary lesion and atypical lobular hyperplasia. PATHOLOGIC STAGE: pT1c(n) pNX MX The above summary is in compliance with College of Stateless Pathology (CAP) Cancer Protocols Checklist and Stateless Joint Committee on Cancer (AJCC), Staging Manual, 8th Ed. Signed Cong Chirinos 10/21/18 [facility] spital [address] [place], [address] Bedside GlucoseOrdered By: Jarrod ystem Environmental Economist on 10-10-2018 Bedside Glucose 132 mg/dL Abnormal 70-110 [facility] Internal Medicine Work Phone: Comment on above: MANAGEMENT OF PATIEN T CARE PER NURSING PROTOCOL [facility] spital LaboratoryPoint of [address] [place] [address] Bedside Glucose 125 mg/dL Abnormal 70-110 [facility] Internal Medicine Work Phone: Comment on above: MANAGEMENT OF PATIEN T CARE PER NURSING PROTOCOL [facility] spital LaboratoryPoint of [address] [place] [address] IMMUNOHISTOCHEMISTRYOrdered By: Shopfitter on 10-10-2018 IMMUNOHISTOCHEMISTRY See Note Normal Comp rehensive Internal Medicine Work Phone: Comment on above: Patient: KARISHMA VILLALOBOS : 1945 (73/F) Acct Num: [id number] Phys: Zee Rivas MD Unit Num: [id number] Loc: [facility] Specimen: [id number] Received: 10/13/181217 Spec Type: IMMUNO TISSUES 1 TISSUES: A. Axillary lymph node, NOS C. Right breast, NOS SPECIMEN INFORMATION: Tissue Source: A. Left axillary sentinel lymph node, C. Right breast mass Clinical Info: Newly diagnosed left breast cancer, atypical lesion Specimen Number: [id number] A1, A2, A3, C3, C9, C11 CPT code: 79638 x2, 04192 x19, 06705 x3 METHODOLOGY: Deparaffinized sections of prefer/formalin-fixed tissue [...] negative Block C3 P40 (BC28) negative Calponin-1 (KC374K) negative E-Cad (ECH-6) positive CK8 (84feeiR70) positive CK5-6 (D5 AND 1684) negative Ki-67 (30-9) positive, low P53 (DO-7) negative MORPHOMETRIC ANALYSIS ER (clone 6F11) >95%, strong SC (clone 16/1E2) >95% strong Her-2Neu (clone CB11) 0 Block C9 P40 (BC28) negative Calponin-1 (KR596Y) negative E-Cad (ECH-6) positive CK8 (33buzzE47) positive Block C11 P40 (BC28) negative Calponin-1 (VJ860F) negative E-Cad (ECH-6) positive CK8 (80vwxsB88) positive The prognostic test for HER2 is performed on formalin-fixed paraffin embedded tissue. A 3+ (positive) staining pattern is defined as intense, homogeneous, complete, circumferential membranous staining in >10% of contiguous tumor cells. A similar weak (2+) staining pattern is interpreted as equivocal. STEPHEN follow-up testing is recommended for all equivocal cases. Positivity/negativity for ER/SC is reported if > or < 1% of the tumor cells are immuno- reactive, respectively. The ASCO/CAP criteria is used for scoring. Reference: Journal of Clinical Oncology, 2013; 31:9629-0467 AND 2009; 16:2632-0857. Duration of fixation: __ Hrs; Sample Adequate: Yes. These assays have not been validated on decalcified tissues. Results should beinterpreted with caution given the likelihood of false negativity on decalcifiedspecimens. These tests were developed and their performance characteristics determined by [facility]. They may not have been cleared [...] (favorable prognostic indicator). Negative for overexpression of KAJ6ybh. SJ:mohti 10/21/18 PHYSICIAN AND INSTITUTION [address] [address] Signed Cong Chirinos 10/21/18 [facility] [address] [place], [place], [id number] HgA1C , Office (43327)Ordere d By: Myra Fowler on 10-05-2018 Hemoglobin A1c/Hemoglobin.total mass fraction (Bld) 7.3 % Abnormal 4.6 - 7.1 Comprehensiv e Internal Medicine Work Phone: [id number]-USYWGHQIPRI-ZMFAY ([phone])Ordered By: Shopfitter on 09-30-2018 AFP.tumor marker mass conc 4.1 ng/mL Normal 0.0-8.3 [facility] Work Phone: Comment on above: Nora ECLIA methodol ogy Aug 2018; PATIENT WA S FASTINGPERFORMED BY: I.Systems6[address]Dublin [place] [id number] CALCIFEDIOL (43433)Ordered B y: Shopfitter on 09-30-2018 25-Hydroxyvitamin D2+25-Hydroxyvitamin D3 mass conc 46.1 ng/mL Normal 30.0-100.0 [facility] Work Phone: Comment on above: Vitamin D deficiency has been defined by the [place] ofAk[facility] Children'S Hospitalcine and an Endocrine Society practice guideline as alevel of serum 25-OH vitamin D less than 20 ng/mL (1,2).The Endocrine Society went on to further define vitamin Dinsufficiency as a level between 21 and 29 ng/mL (2).1. IOM ([place] of Medicine). 2010. Dietary reference intakes for calcium and D. [place]: The National Academies Press.2. Ace MF, [place], Cynthia COFFMAN, et al. Evaluation, treatment, and prevention of vitamin D deficiency: an Endocrine Society clinical practice guideline. JCEM. 2010; 96(7):1911-30. August 2018; EMILEE Gilbert WAS FASTINGPERFORMED BY: appAttach Yzzjnc[address] RoadMyWaveblin [place] [id number] Metabolic Panel, Comprehensi ve (07682)Ordered By: Shopfitter on 09-30-2018 Albumin mass conc 4.5 g/dL Normal 3.5-4.8 Compreh ensive Internal Medicine Work Phone: Comment on above: August 2018; EMILEE Gilbert WAS FASTINGPERFORMED BY: I.Systems6370 [address] RoadDublin [place] [id number] Albumin/Globulin mass ratio 1.5 {ratio} Normal 1.2-2.2 [facility] Work Phone: Comment on above: August 2018; EMILEE Gilbert WAS FASTINGPERFORMED BY: Satya Inti Dharma70 [address] RoadDublin [place] [id number] ALP [Catalytic activity/Vol] 83 U/L Normal 39-117 [facility] Internal Medicine Work Phone: Comment on above: August 2018; EMILEE T WAS FASTINGPERFORMED BY: CB [facility] Hxieox6090 [address] RoadDublin [place] [id number] ALP enzyme act/vol 83 [iU]/L Normal 39-117 [facility] Internal Medicine Work Phone: Comment on above: August 2018; PATIJERAMIE T WAS FASTINGPERFORMED BY: CB [facility] Tutbbt0557 [address] RoadDublin [place] [id number] ALT [Catalytic activity/Vol] 54 U/L Abnormal 0-32 [facility] Internal Medicine Work Phone: Comment on above: August 2018; PATIJERAMIE T WAS FASTINGPERFORMED BY: [facility] Iixlmu6[address] RoadDublin [place] [id number] ALT enzyme act/vol 54 [iU]/L Abnormal 0-32 [facility] Internal Medicine Work Phone: Comment on above: August 2018; PATIJERAMEI T WAS FASTINGPERFORMED BY: [facility] Tgrboe9718 [address] RoadDublin [place] [id number] AST [Catalytic activity/Vol] 50 U/L Abnormal 0-40 [facility] Internal Medicine Work Phone: Comment on above: August 2018; EMILEE T WAS FASTINGPERFORMED BY: [facility] Tualqv8456 [address] RoadDublin [place] [id number] AST enzyme act/vol 50 [iU]/L Abnormal 0-40 [facility] Internal Medicine Work Phone: Comment on above: August 2018; PATIJERAMIE T WAS FASTINGPERFORMED BY: [facility] Plqeom3539 [address] RoadDublin [place] [id number] Bilirubin mass conc 0.4 mg/dL Normal 0.0-1.2 [facility] Internal Medicine Work Phone: Comment on above: August 2018; EMILEE T WAS FASTINGPERFORMED BY: CB [facility] Hnqvbl6361 [address] RoadDublin [place] [id number] Calcium mass conc 9.9 mg/dL Normal 8.7-10.3 Compreh ensive Internal Medicine Work Phone: Comment on above: August 2018; EMIELE Gilbert WAS FASTINGPERFORMED BY: CB [facility] Aalojf3938 [address] RoadHighlands-Cashiers Hospitalin [place] [id number] Chloride molar conc 105 mmol/L Normal 96-106 Compr ehensive Internal Medicine Work Phone: Comment on above: August 2018; EMILEE Gilbert WAS FASTINGPERFORMED BY: CB [facility] Aqsduk[address] [facility] [id number] CO2 molar conc 21 mmol/L Normal 20-29 Comprehens michael Internal Medicine Work Phone: Comment on above: August 2018; EMILEE Gilbert WAS FASTINGPERFORMED BY: CB [facility] Iowvlx8878 Mcghee RoadNovant Health [id number] Creatinine mass conc 0.67 mg/dL Normal 0.57-1.00 Comp rehensive Internal Medicine Work Phone: Comment on above: August 2018; EMILEE Gilbert WAS FASTINGPERFORMED BY: CB [facility] Cqfkwp8945 Mcghee RoadNovant Health [id number] GFR/1.73 sq M predicted among blacks CKD-EPI vol rate/area (S/P/Bld) 101 mL/min/1.73 Normal Comprehe nsive Internal Medicine Work Phone: Comment on above: August 2018; EMILEE Gilbert WAS FASTINGPERFORMED BY: CB [facility] Bwhejh1515 [address] RoadHighlands-Cashiers Hospitalin [place] [id number] GFR/1.73 sq M predicted among non-blacks CKD-EPI vol rate/area (S/P/Bld) 87 mL/min/1.73 Normal Comprehensive [facility] Medicine Work Phone: Comment on above: August 2018; EMILEE Gilbert WAS FASTINGPERFORMED BY: CB [facility] Bdsnam[address] [facility] [id number] Globulin Calculated mass conc (S) 3.1 g/dL Normal 1.5-4.5 [facility] Work Phone: Globulin mass conc (S) 3.1 g/dL Normal 1.5-4.5 Co mprehensive Internal Medicine Work Phone: Comment on above: August 2018; EMILEE Gilbert WAS FASTINGPERFORMED BY: CB [facility] Wfnoxh4342 [address] RoadDublin [place] [id number] Glucose mass conc 150 mg/dL Abnormal 65-99 Compreh ensive Internal Medicine Work Phone: Comment on above: August 2018; EMILEE Gilbert WAS FASTINGPERFORMED BY: CB [facility] Xuclom8985 [address] RoadDuin [place] [id number] Potassium molar conc 4.8 mmol/L Normal 3.5-5.2 Comp rehensive Internal Medicine Work Phone: Comment on above: August 2018; EMILEE Gilbert WAS FASTINGPERFORMED BY: CB [facility] Gmaqxg1806 [address] RoadDuin [place] [id number] Protein mass conc 7.6 g/dL Normal 6.0-8.5 Compreh ensive Internal Medicine Work Phone: Comment on above: August 2018; EMILEE Gilbert WAS FASTINGPERFORMED BY: CB [facility] Aklhpb[address] [facility] HospitalDuin [place] [id number] Sodium molar conc 142 mmol/L Normal 134-144 Compreh ensive Internal Medicine Work Phone: Comment on above: August 2018; EMILEE Gilbert WAS FASTINGPERFORMED BY: CB [facility] Talsyw[address] [facility] [place] [id number] Urea nitrogen mass conc 13 mg/dL Normal 8-27 C omprehensive Internal Medicine Work Phone: Comment on above: August 2018; EMILEE Gilbert WAS FASTINGPERFORMED BY: CB [facility] Vddwpj7[address] [facility] HospitalDuin [place] [id number] Urea nitrogen/Creatinine mass ratio 19 mg/mg Normal 12-28 [facility] Work Phone: Comment on above: August 2018; EMILEE Gilbert WAS FASTINGPERFORMED BY: CB [facility] Vxghki[address] [facility]in [place] [id number] TSH (THYROID STIMULATING HOR BARRON) ([id number])Ordered By: Shopfitter on 09-30-2018 Thyrotropin Qn 5.560 {uIU/mL} Abnormal 0.450-4.50 0 [facility] Work Phone: Comment on above: August 2018; EMILEE Gilbert WAS FASTINGPERFORMED BY: ANGELI Wee Webmauri Adgyob9444 [facility] [id number] Blood Glucose , Office ([phone])Ordered By: Haseeb Sherwood on 06-14-2018 Glucose Glucometer molar conc (BldC) 115 1 Normal Comprehensive Internal Medicine Work Phone: CALCIFEDIOL ([id number])Ordered B y: Shopfitter on 06-14-2018 25-Hydroxyvitamin D2+25-Hydroxyvitamin D3 mass conc 33.0 ng/mL Normal 30.0-100.0 [facility] Work Phone: Comment on above: Vitamin D deficiency has been defined by the [place] ofMedicine and an Endocrine Society practice guideline as alevel of serum 25-OH vitamin D less than 20 ng/mL (1,2).The Endocrine Society went on to further define vitamin Dinsufficiency as a level between 21 and 29 ng/mL (2).1. IOM ([place] of Medicine). 2010. Dietary reference intakes for calcium and D. [place]: The National Academies Press.2. Ace MF, [place], Cynthia COFFMAN, et al. Evaluation, treatment, and prevention of vitamin D deficiency: an Endocrine Society clinical practice guideline. JCEM. 2010; 96(7):1911-30. PATIENT NOT FASTINGP ERFORMED BY: ANGELI [employer]6370 [facility] [id number] HgA1C , Office (46821)Ordere d By: Haseeb Sherwood on 06-14-2018 Hemoglobin A1c/Hemoglobin.total mass fraction (Bld) 6.9 % Normal 4.6 - 7.1 Comprehensiv e Internal Medicine Work Phone: Metabolic Panel, Comprehensi ve (86627)Ordered By: Shopfitter on 06-14-2018 Albumin mass conc 4.6 g/dL Normal 3.5-4.8 Compreh ensive Internal Medicine Work Phone: Comment on above: PATIENT NOT FASTINGP ERFORMED BY: ANGELI [facility] Blfxym[address] [facility] Hospitalin [place] [id number] Information: [id number] Albumin/Globulin mass ratio 1.5 {ratio} Normal 1.2-2.2 [facility] Work Phone: Comment on above: PATIENT NOT FASTINGP ERFORMED BY: [facility] [address]ol[address] [facility] [id number] Information: [id number] ALP [Catalytic activity/Vol] 93 U/L Normal 39-117 [facility] Medicine Work Phone: Comment on above: PATIENT NOT FASTINGP ERFORMED BY: LabCoClara Maass Medical CenterVclqox2726 [address] [facility] [id number] Information: [id number] ALP enzyme act/vol 93 [iU]/L Normal 39-117 [facility] Internal Medicine Work Phone: Comment on above: PATIENT NOT FASTINGP ERFORMED BY: [facility] Ebjena[address] [facility] [id number] Information: [id number] ALT [Catalytic activity/Vol] 73 U/L Abnormal 0-32 [facility] Work Phone: Comment on above: PATIENT NOT FASTINGP ERFORMED BY: [facility] [address]epfow[address] [facility] [id number] Information: [id number] ALT enzyme act/vol 73 [iU]/L Abnormal 0-32 [facility] Internal Medicine Work Phone: Comment on above: PATIENT NOT FASTINGP ERFORMED BY: CB [facility] Hosayj[address] [facility]in [place] [id number] Information: [id number] AST [Catalytic activity/Vol] 78 U/L Abnormal 0-40 [facility] Work Phone: Comment on above: PATIENT NOT FASTINGP ERFORMED BY: [facility] Xepdul[address] [facility]in [place] [id number] Information: [id number] AST enzyme act/vol 78 [iU]/L Abnormal 0-40 Compre [facility] centerive Internal Medicine Work Phone: Comment on above: PATIENT NOT FASTINGP ERFORMED BY: ANGELI LabComauri CoelloEfbapw[address] [facility] [id number] Information: 133699,[id number] Bilirubin mass conc 0.5 mg/dL Normal 0.0-1.2 Compr ensive Internal Medicine Work Phone: Comment on above: PATIENT NOT FASTINGP ERFORMED BY: ANGELI [facility] Zjblnj1009 [facility] [id number] Information: [id number] Calcium mass conc 10.3 mg/dL Normal 8.7-10.3 Compreh [facility] Work Phone: Comment on above: PATIENT NOT FASTINGP ERFORMED BY: ANGELI [facility] Oldhzp4084 [facility] [id number] Information: [id number] Chloride molar conc 103 mmol/L Normal 96-106 Compr ensive Internal Medicine Work Phone: Comment on above: PATIENT NOT FASTINGP ERFORMED BY: ANGELI [facility] Cjedpp9202 [facility] [id number] Information: [id number] CO2 molar conc 24 mmol/L Normal 20-29 Comprehens michael Internal Medicine Work Phone: Comment on above: PATIENT NOT FASTINGP ERFORMED BY: CB [facility] Xlgqpm9932 [facility] [id number] Information: [id number] Creatinine mass conc 0.78 mg/dL Normal 0.57-1.00 Comp [facility] Work Phone: Comment on above: PATIENT NOT FASTINGP ERFORMED BY: ANGELI [facility] Ofbcof7596 [facility] [id number] Information: [id number] GFR/1.73 sq M predicted among blacks CKD-EPI vol rate/area (S/P/Bld) 88 mL/min/1.73 Normal Comprehe nsive Internal Medicine Work Phone: Comment on above: PATIENT NOT FASTINGP ERFORMED BY: ANGELI [facility] Wdlulx4296 [address] [facility] [id number] Information: [id number] GFR/1.73 sq M predicted among non-blacks CKD-EPI vol rate/area (S/P/Bld) 76 mL/min/1.73 Normal [facility] Work Phone: Comment on above: PATIENT NOT FASTINGP ERFORMED BY: [facility] Ukoxld6287 [facility] [id number] Information: [id number] Globulin Calculated mass conc (S) 3.1 g/dL Normal 1.5-4.5 [facility] Work Phone: Globulin mass conc (S) 3.1 g/dL Normal 1.5-4.5 Co mprehensive Internal Medicine Work Phone: Comment on above: PATIENT NOT FASTINGP ERFORMED BY: [facility] Gvzznt3295 [facility] [id number] Information: [id number] Glucose mass conc 113 mg/dL Abnormal 65-99 Compreh ensive Internal Medicine Work Phone: Comment on above: PATIENT NOT FASTINGP ERFORMED BY: [facility] Duezuo0567 [facility] [id number] Information: [id number] Potassium molar conc 5.0 mmol/L Normal 3.5-5.2 Comp rehensive Internal Medicine Work Phone: Comment on above: PATIENT NOT FASTINGP ERFORMED BY: CB [facility] Tzizhc5116 [address] [facility] [place] [id number] Information: [id number] Protein mass conc 7.7 g/dL Normal 6.0-8.5 Compreh ensive Internal Medicine Work Phone: Comment on above: PATIENT NOT FASTINGP ERFORMED BY: CB [facility] Dykdkj6278 [address] [facility] [id number] Information: [id number] Sodium molar conc 142 mmol/L Normal 134-144 Compreh ensive Internal Medicine Work Phone: Comment on above: PATIENT NOT FASTINGP ERFORMED BY: ANGELI Coello6370 [facility] [id number] Information: [id number] Urea nitrogen mass conc 13 mg/dL Normal 8-27 C omprehensive Internal Medicine Work Phone: Comment on above: PATIENT NOT FASTINGP ERFORMED BY: ANGELI DawnSaint [facility] Kqfeon7256 [facility] [id number] Information: [id number] Urea nitrogen/Creatinine mass ratio 17 mg/mg Normal 12-28 [facility] Work Phone: Comment on above: PATIENT NOT FASTINGP ERFORMED BY: NereydaSaint Luke[facility] [address]ubws[address] [id number] Information: [id number] T3, FREE (TRIDOTHYRONINE) (6 3619)Ordered By: Shopfitter on 06-14-2018 T3 free mass conc 3.1 pg/mL Normal 2.0-4.4 Compreh ensive Internal Medicine Work Phone: Comment on above: PATIENT NOT FASTINGP ERFORMED BY: ANGELI DawnSaint [facility] Hzvrui4336 [facility] [id number] T4, FREE (THYROXINE) (85002) Ordered By: Shopfitter on 06-14-2018 T4 free mass conc 1.02 ng/dL Normal 0.82-1.77 Compreh ensive Internal Medicine Work Phone: Comment on above: PATIENT NOT FASTINGP ERFORMED BY: LabSteven Ville 4363970 [facility] [id number] TSH (THYROID STIMULATING HOR BARRON) ([id number])Ordered By: Shopfitter on 06-14-2018 Thyrotropin Qn 4.540 {uIU/mL} Abnormal 0.450-4.50 0 [facility] Work Phone: Comment on above: PATIENT NOT FASTINGP ERFORMED BY: ANGELI [facility] Khumaq7518 [address] RoadDublin [place] [id number] VITAMIN B12 AND FOLATES (826 07)Ordered By: Shopfitter on 06-14-2018 Cobalamin (Vitamin B12) mass conc 863 pg/mL Normal 232-1245 [facility] Work Phone: Comment on above: PATIENT NOT FASTINGP ERFORMED BY: CB [facility] Styhwv4147 [address] RoadDublin [place] [id number] Folate mass conc 17.5 ng/mL Normal Comprehe nsive Internal Medicine Work Phone: Comment on above: A serum folate stephanie ntration of less than 3.1 ng/mL isconsidered to represent clinical deficiency. PATIENT NOT FASTINGP ERFORMED BY: ANGELI [facility] Ffvrsf6711 [address] RoadDublin [place] [id number] Blood Glucose , Office (7896 2)Ordered By: Heidy Camacho on 03-15-2018 Glucose Glucometer molar conc (BldC) 214 1 Normal [facility] Work Phone: Comment on above: 214 HgA1C , Office ([id number])Ordere d By: Heidy Camacho on 03-15-2018 Hemoglobin A1c/Hemoglobin.total mass fraction (Bld) 6.9 % Normal 4.6 - 7.1 Comprehensiv e Internal Medicine Work Phone: Comment on above: 6.9 Metabolic Panel, Comprehensi ve (76452)Ordered By: Shopfitter on 03-09-2018 Albumin mass conc 4.6 g/dL Normal 3.5-4.8 Compreh ensive Internal Medicine Work Phone: Comment on above: PATIENT NOT FASTINGP ERFORMED BY: NAGELI [facility] Eiptol6711 [address] RoadDublin [place] [id number] Albumin/Globulin mass ratio 1.6 {ratio} Normal 1.2-2.2 [facility] Work Phone: Comment on above: PATIENT NOT FASTINGP ERFORMED BY: ANGELI [facility] Ybzevq5143 [address] RoadDublin [place] [id number] ALP [Catalytic activity/Vol] 80 U/L Normal 39-117 [facility] Work Phone: Comment on above: PATIENT NOT FASTINGP ERFORMED BY: CB [facility] Kakkym6712 [address] RoadDublin [place] [id number] ALP enzyme act/vol 80 [iU]/L Normal 39-117 [facility] Internal Medicine Work Phone: Comment on above: PATIENT NOT FASTINGP ERFORMED BY: ANGELI [facility] Ykydxd4778 [address] RoadDublin [place] [id number] ALT [Catalytic activity/Vol] 55 U/L Abnormal 0-32 [facility] Medicine Work Phone: Comment on above: PATIENT NOT FASTINGP ERFORMED BY: CB [facility] Jjpneq2012 [address] RoadDublin [place] [id number] ALT enzyme act/vol 55 [iU]/L Abnormal 0-32 [facility] Internal Medicine Work Phone: Comment on above: PATIENT NOT FASTINGP ERFORMED BY: ANGELI [facility] Lzducj4254 [address] RoadDublin [place] [id number] AST [Catalytic activity/Vol] 53 U/L Abnormal 0-40 [facility] Internal Medicine Work Phone: Comment on above: PATIENT NOT FASTINGP ERFORMED BY: ANGELI [facility] Zadvjf2996 [address] RoadDublin [place] [id number] AST enzyme act/vol 53 [iU]/L Abnormal 0-40 [facility] Internal Medicine Work Phone: Comment on above: PATIENT NOT FASTINGP ERFORMED BY: CB [facility] Fmcgxg8165 [address] RoadDublin [place] [id number] Bilirubin mass conc 0.4 mg/dL Normal 0.0-1.2 [facility] Internal Medicine Work Phone: Comment on above: PATIENT NOT FASTINGP ERFORMED BY: CB [facility] Qvzjdn6210 [address] RoadDublin [place] [id number] Calcium mass conc 10.0 mg/dL Normal 8.7-10.3 [facility] Internal Medicine Work Phone: Comment on above: PATIENT NOT FASTINGP ERFORMED BY: CB [facility] Zzmlwi4921 [address] RoadDublin [place] [id number] Chloride molar conc 101 mmol/L Normal 96-106 Compr ehensive Internal Medicine Work Phone: Comment on above: PATIENT NOT FASTINGP ERFORMED BY: ANGELI LabComauri WeldonMljvad6389 [address] Roadblin [place] [id number] CO2 molar conc 22 mmol/L Normal 18-29 Comprehens michael Internal Medicine Work Phone: Comment on above: PATIENT NOT FASTINGP ERFORMED BY: CB [facility] Qqtamw3439 [address] [facility] [id number] Creatinine mass conc 0.74 mg/dL Normal 0.57-1.00 Comp rehensive Internal Medicine Work Phone: Comment on above: PATIENT NOT FASTINGP ERFORMED BY: ANGELI [facility] Fdrsve2239 [address] [facility] [id number] GFR/1.73 sq M predicted among blacks CKD-EPI vol rate/area (S/P/Bld) 94 mL/min/1.73 Normal Comprehe nsive Internal Medicine Work Phone: Comment on above: PATIENT NOT FASTINGP ERFORMED BY: ANGELI [facility] Qqpjnr7090 [address] [facility] [id number] GFR/1.73 sq M predicted among non-blacks CKD-EPI vol rate/area (S/P/Bld) 81 mL/min/1.73 Normal [facility] Medicine Work Phone: Comment on above: PATIENT NOT FASTINGP ERFORMED BY: ANGELI [facility] Dbrxnd3382 [facility] [id number] Globulin Calculated mass conc (S) 2.8 g/dL Normal 1.5-4.5 [facility] Work Phone: Globulin mass conc (S) 2.8 g/dL Normal 1.5-4.5 Co [facility] hospitalehensive Internal Medicine Work Phone: Comment on above: PATIENT NOT FASTINGP ERFORMED BY: CB [facility] Slqszw8198 [facility] [id number] Glucose mass conc 138 mg/dL Abnormal 65-99 Compreh ensive Internal Medicine Work Phone: Comment on above: PATIENT NOT FASTINGP ERFORMED BY: ANGELI LabDajuan WeldonGcfany3441 [address] [facility]in [place] [id number] Potassium molar conc 4.4 mmol/L Normal 3.5-5.2 Comp rehensive Internal Medicine Work Phone: Comment on above: PATIENT NOT FASTINGP ERFORMED BY: ANGELI Weldonlin6370 [address] [facility]in [place] [id number] Protein mass conc 7.4 g/dL Normal 6.0-8.5 Compreh ensive Internal Medicine Work Phone: Comment on above: PATIENT NOT FASTINGP ERFORMED BY: ANGELI [facility] Hpqeem5664 [address] [facility] [id number] Sodium molar conc 140 mmol/L Normal 134-144 Compreh ensive Internal Medicine Work Phone: Comment on above: PATIENT NOT FASTINGP ERFORMED BY: ANGELI LabDajuan Coello6370 [facility] [id number] Urea nitrogen mass conc 15 mg/dL Normal 8-27 C omprehensive Internal Medicine Work Phone: Comment on above: PATIENT NOT FASTINGP ERFORMED BY: ANGELI LabDajuan Coello6370 [facility] [id number] Urea nitrogen/Creatinine mass ratio 20 mg/mg Normal 12-28 [facility] Work Phone: Comment on above: PATIENT NOT FASTINGP ERFORMED BY: ANGELI [facility] Vevzyk5645 [facility] [id number] T3, FREE (TRIDOTHYRONINE) (8 9036)Ordered By: Shopfitter on 03-09-2018 T3 free mass conc 3.1 pg/mL Normal 2.0-4.4 Compreh ensive Internal Medicine Work Phone: Comment on above: PATIENT NOT FASTINGP ERFORMED BY: ANGELI [facility] Nvadrh2885 [address] [facility]in [place] [id number] T4, FREE (THYROXINE) (65828) Ordered By: Shopfitter on 03-09-2018 T4 free mass conc 0.99 ng/dL Normal 0.82-1.77 Compreh ensive Internal Medicine Work Phone: Comment on above: PATIENT NOT FASTINGP ERFORMED BY: CB [facility] Dvfghx1007 [address] [facility] [id number] TSH (THYROID STIMULATING HOR BARRON) (57137)Ordered By: Shopfitter on 03-09-2018 Thyrotropin Qn 7.250 {uIU/mL} Abnormal 0.450-4.50 0 [facility] Work Phone: Comment on above: PATIENT NOT FASTINGP ERFORMED BY: CB [facility] Xutvvn9871 [facility] [id number] Blood Glucose , Office (2182 2)Ordered By: Latrice Levy on 12-06-2017 Glucose Glucometer molar conc (BldC) 142 1 Normal [facility] Work Phone: Comment on above: ate breakfast HgA1C , Office (82403)Ordere d By: Latrice Levy on 12-06-2017 Hemoglobin A1c/Hemoglobin.total mass fraction (Bld) 6.7 % Normal 4.6 - 7.1 Comprehensiv e Internal Medicine Work Phone: CALCIFEDIOL (71990)Ordered B y: Shopfitter on 11-30-2017 25-Hydroxyvitamin D2+25-Hydroxyvitamin D3 mass conc 26.6 ng/mL Abnormal 30.0-100.0 [facility] Work Phone: Comment on above: Vitamin D deficiency has been defined by the [place] ofMedicine and an Endocrine Society practice guideline as alevel of serum 25-OH vitamin D less than 20 ng/mL (1,2).The Endocrine Society went on to further define vitamin Dinsufficiency as a level between 21 and 29 ng/mL (2).1. IOM ([place] of Medicine). 2010. Dietary reference intakes for calcium and D. [place]: The National Academies Press.2. Ace MF, [place], Cynthia COFFMAN, et al. Evaluation, treatment, and prevention of vitamin D deficiency: an Endocrine Society clinical practice guideline. JCEM. 2010; 96(7):1911-30. Oct 2017; PATIENT NO T FASTINGPERFORMED BY: [facility] Saxueh7608 [facility] [place] [id number] Metabolic Panel, Comprehensi ve (73767)Ordered By: Shopfitter on 11-30-2017 Albumin mass conc 4.6 g/dL Normal 3.5-4.8 Compreh [facility] Internal Medicine Work Phone: Comment on above: Oct 2017; PATIENT NO T FASTINGPERFORMED BY: CB [facility] Xexjnh8951 [address] RoadDublin [place] [id number] Albumin/Globulin mass ratio 1.4 {ratio} Normal 1.2-2.2 [facility] Work Phone: Comment on above: Oct 2017; PATIENT NO T FASTINGPERFORMED BY: CB [facility] Kzesxb0452 [address] RoadDublin [place] [id number] ALP [Catalytic activity/Vol] 87 U/L Normal 39-117 [facility] Work Phone: Comment on above: Oct 2017; PATIENT NO T FASTINGPERFORMED BY: CB [facility] Uljgoi5722 [address] RoadDuin [place] [id number] ALP enzyme act/vol 87 [iU]/L Normal 39-117 [facility] Internal Medicine Work Phone: Comment on above: Oct 2017; PATIENT NO T FASTINGPERFORMED BY: CB [facility] Enmrxj3415 [address]blin [place] [id number] ALT [Catalytic activity/Vol] 49 U/L Abnormal 0-32 [facility] Work Phone: Comment on above: Oct 2017; PATIENT NO T FASTINGPERFORMED BY: CB [facility] Bjjmsc4046 [address] RoadDublin [place] [id number] ALT enzyme act/vol 49 [iU]/L Abnormal 0-32 [facility] Internal Medicine Work Phone: Comment on above: Oct 2017; PATIENT NO T FASTINGPERFORMED BY: CB [facility] Gvmzqw1048 [address] RoadDublin [place] [id number] AST [Catalytic activity/Vol] 41 U/L Abnormal 0-40 [facility] Work Phone: Comment on above: Oct 2017; PATIENT NO T FASTINGPERFORMED BY: CB [facility] Fzlvxr0518 [address]bl[address] [place] [id number] AST enzyme act/vol 41 [iU]/L Abnormal 0-40 Compre [facility] Internal Medicine Work Phone: Comment on above: Oct 2017; PATIENT NO T FASTINGPERFORMED BY: CB [facility] Mrusdd0272 [address] RoadDublin [place] [id number] Bilirubin mass conc 0.3 mg/dL Normal 0.0-1.2 Compr ensive Internal Medicine Work Phone: Comment on above: Oct 2017; PATIENT NO T FASTINGPERFORMED BY: CB [facility] Utqudh0049 [address] RoadDublin [place] [id number] Calcium mass conc 10.0 mg/dL Normal 8.7-10.3 Compreh [facility] Internal Medicine Work Phone: Comment on above: Oct 2017; PATIENT NO T FASTINGPERFORMED BY: ANGELI [facility] Skpqcn3568 [address] RoadHighlands-Cashiers Hospitalin [place] [id number] Chloride molar conc 100 mmol/L Normal 96-106 Compr ensive Internal Medicine Work Phone: Comment on above: Oct 2017; PATIENT NO T FASTINGPERFORMED BY: ANGELI [facility] Aeqnvg3201 [address] RoadHighlands-Cashiers Hospitalin [place] [id number] CO2 molar conc 24 mmol/L Normal 18-29 Comprehens [facility] Internal Medicine Work Phone: Comment on above: Oct 2017; PATIENT NO T FASTINGPERFORMED BY: ANGELI [facility] Lntbjt6518 [address] [facility] [id number] Creatinine mass conc 0.69 mg/dL Normal 0.57-1.00 Comp [facility] Internal Medicine Work Phone: Comment on above: Oct 2017; PATIENT NO T FASTINGPERFORMED BY: CB [facility] Bmataz1285 [address] RoadHighlands-Cashiers Hospitalin [place] [id number] GFR/1.73 sq M predicted among blacks CKD-EPI vol rate/area (S/P/Bld) 101 mL/min/1.73 Normal Comprehe ive Internal Medicine Work Phone: Comment on above: Oct 2017; PATIENT NO T FASTINGPERFORMED BY: CB [facility] Bowofj0978 [address] RoadDublin [place] [id number] GFR/1.73 sq M predicted among non-blacks CKD-EPI vol rate/area (S/P/Bld) 87 mL/min/1.73 Normal [facility] Work Phone: Comment on above: Oct 2017; PATIENT NO T FASTINGPERFORMED BY: CB [facility] Ubbxfy4401 [address] RoadDublin [place] [id number] Globulin Calculated mass conc (S) 3.2 g/dL Normal 1.5-4.5 [facility] Work Phone: Globulin mass conc (S) 3.2 g/dL Normal 1.5-4.5 Co mprehensive Internal Medicine Work Phone: Comment on above: Oct 2017; PATIENT NO T FASTINGPERFORMED BY: CB [facility] Vluehm9205 [address] RoadMyWaveblin [place] [id number] Glucose mass conc 125 mg/dL Abnormal 65-99 Compreh ensive Internal Medicine Work Phone: Comment on above: Oct 2017; PATIENT NO T FASTINGPERFORMED BY: CB [facility] Vwbvvv4521 [address] RoadMyWavein [place] [id number] Potassium molar conc 4.7 mmol/L Normal 3.5-5.2 Comp rehensive Internal Medicine Work Phone: Comment on above: Oct 2017; PATIENT NO T FASTINGPERFORMED BY: CB [facility] Nnlrwi0718 [address] RoadDublin [place] [id number] Protein mass conc 7.8 g/dL Normal 6.0-8.5 Compreh ensive Internal Medicine Work Phone: Comment on above: Oct 2017; PATIENT NO T FASTINGPERFORMED BY: CB [facility] Qbjsvx9715 [address] RoadDublin [place] [id number] Sodium molar conc 141 mmol/L Normal 134-144 Compreh ensive Internal Medicine Work Phone: Comment on above: Oct 2017; PATIENT NO T FASTINGPERFORMED BY: CB [facility] Nactdz1984 [address] RoadDublin [place] [id number] Urea nitrogen mass conc 19 mg/dL Normal 8-27 C omprehensive Internal Medicine Work Phone: Comment on above: Oct 2017; PATIENT NO T FASTINGPERFORMED BY: ANGELI [facility] Ptkpta8163 [facility] [id number] Urea nitrogen/Creatinine mass ratio 28 mg/mg Normal 12-28 [facility] Work Phone: Comment on above: Oct 2017; PATIENT NO T FASTINGPERFORMED BY: ANGELI [facility] Kyeqzr5188 [facility] [id number] TSH (THYROID STIMULATING HOR BARRON) ([id number])Ordered By: Shopfitter on 11-30-2017 Thyrotropin Qn 5.470 {uIU/mL} Abnormal 0.450-4.50 0 [facility] Work Phone: Comment on above: Oct 2017; PATIENT NO T FASTINGPERFORMED BY: ANGELI [facility] Cksche9941 [facility] [id number] [place] Procedure Noteon [place] Procedure Note Normal A [facility] ([place]) Final Surgical Pathology Rep [facility] 09-21-2017 Final Surgical Pathology Report . 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 - THE INKED AND CAUTERIZED MARGIN FOCALLY HAS ADENOMATOUS CHANGE BUT IS NEGATIVE FOR HIGH GRADE DYSPLASIA.C) PROXIMAL TRANSVERSE COLON, BIOPSY: - TUBULAR ADENOMA.COMMENT:[facility]# [id number] INFORMATION:Procedure: COLONOSCOPY WITH POLYP BIOPSY / COLD [...] cm. A S -1Dictated by RAYMUNDO REDD ([facility])MICROSCOPIC DESCRIPTION:Slides reviewed.Electronically Signed byPathology Report verified by [facility] CampusElectronically signed by RAMIN Atkins out Date: 09/21/2017 14:09Performing Lab: [facility], [address] [place] [address] Normal [facility] ([place]) Comment on above: Performed By: #### S PFR ####[facility] [place] [address] AO ENDO Procedure Recordon 09-20-2017 AO ENDO Procedure Record Normal [facility]) Anesthesiology Consultationo n 09-20-2017 Anesthesiology Consultation Normal [facility]) History and Physicalon 09-20 History and Physical Normal [facility]) Blood Glucose , Office (0796 2)Ordered By: Latrice Levy on 08-10-2017 Glucose Glucometer molar conc (BldC) 90 1 Normal [facility] Work Phone: HgA1C , Office ([id number])Ordere d By: Latrice Levy on 08-10-2017 Hemoglobin A1c/Hemoglobin.total mass fraction (Bld) 6.2 % Normal 4.6 - 7.1 Comprehensiv e Internal Medicine Work Phone: [id number] ([phone])Ordered By: Shopfitter on 08-03-2017 AFP.tumor marker mass conc 3.7 ng/mL Normal 0.0-8.3 [facility] Work Phone: Comment on above: Nora ECLIA methodol ogy Jul 2017; PATIENT W FASTINGPERFORMED BY: [facility] Gcctqe5435 [facility] [id number] Lipid Panel ([id number])Ordered B y: Shopfitter on 08-03-2017 Cholesterol in HDL mass conc 52 mg/dL Normal [facility] Work Phone: Comment on above: Jul 2017; PATIENT W FASTINGPERFORMED BY: ANGELI LabDajuan WeldonRqxcgk3115 [facility] [id number] Cholesterol in LDL mass conc 142 mg/dL Abnormal 0-99 [facility] Work Phone: Comment on above: Jul 2017; PATIENT W FASTINGPERFORMED BY: ANGELI LabDajuan WeldonVlrwts8088 [facility] [id number] Cholesterol in LDL/Cholesterol in HDL mass ratio 2.7 {ratio_units} Normal 0.0-3.2 [facility] Work Phone: Comment on above: LDL/HDL Ratio Men Wo men 1/2 Avg.Risk 1.0 1.5 Avg.Risk 3.6 3.2 2X Avg.Risk 6.2 5.0 3X Avg.Risk 8.0 6.1 Jul 2017; PATIENT W FASTINGPERFORMED BY: ANGELI Weldonlin6370 [facility] [id number] Cholesterol in VLDL mass conc 24 mg/dL Normal 5-40 [facility] Work Phone: Comment on above: Jul 2017; PATIENT W FASTINGPERFORMED BY: ANGELI LabDajuan WeldonIqlhxs4672 [facility] [id number] Cholesterol mass conc 218 mg/dL Abnormal 100-199 Com prehensive Internal Medicine Work Phone: Comment on above: Jul 2017; PATIENT W FASTINGPERFORMED BY: ANGELI LabDajuan WeldonEaoper0312 [facility] [id number] Triglyceride mass conc 118 mg/dL Normal 0-149 Co [facility] hospitalehensive Internal Medicine Work Phone: Comment on above: Jul 2017; PATIENT W FASTINGPERFORMED BY: ANGELI LabComauri WeldonYbeaqh8392 [facility] [id number] Metabolic Panel, Comprehensi ve ([id number])Ordered By: Shopfitter on 08-03-2017 Albumin mass conc 4.2 g/dL Normal 3.5-4.8 Compreh ensive Internal Medicine Work Phone: Comment on above: jul 2017; PATIENT W FASTINGPERFORMED BY: CB [facility] Yebmvu5432 [address] RoadDublin [place] [id number] Albumin/Globulin mass ratio 1.4 {ratio} Normal 1.2-2.2 [facility] Work Phone: Comment on above: jul 2017; PATIENT W FASTINGPERFORMED BY: CB [facility] Lcqqrh4791 [address]Dublin [place] [id number] ALP [Catalytic activity/Vol] 78 U/L Normal 39-117 [facility] Work Phone: Comment on above: jul 2017; PATIENT W FASTINGPERFORMED BY: CB [facility] Upphny6074 [address] RoadDublin [place] [id number] ALP enzyme act/vol 78 [iU]/L Normal 39-117 [facility] Internal Medicine Work Phone: Comment on above: jul 2017; PATIENT W FASTINGPERFORMED BY: CB [facility] Hyslxg3055 [address]Dublin [place] [id number] ALT [Catalytic activity/Vol] 43 U/L Abnormal 0-32 [facility] Work Phone: Comment on above: ADDENDA: Stable. OV 10 aug 2017; PATIENT W FASTINGPERFORMED BY: CB [facility] Gsbnpa9432 [address]Dublin [place] [id number] ALT enzyme act/vol 43 [iU]/L Abnormal 0-32 [facility] Internal Medicine Work Phone: Comment on above: ADDENDA: Stable. OV 10 aug 2017; PATIENT W FASTINGPERFORMED BY: CB [facility] Fettch0199 [address]Dublin [place] [id number] AST [Catalytic activity/Vol] 39 U/L Normal 0-40 [facility] Work Phone: Comment on above: jul 2017; PATIENT W FASTINGPERFORMED BY: CB [facility] Nhawwv0726 Mgchee RoadDublin [place] [id number] AST enzyme act/vol 39 [iU]/L Normal 0-40 [facility] Internal Medicine Work Phone: Comment on above: jul 2017; PATIENT W FASTINGPERFORMED BY: CB [facility] Tzazct5016 [address] RoadDublin [place] [id number] Bilirubin mass conc 0.3 mg/dL Normal 0.0-1.2 Compr ensive Internal Medicine Work Phone: Comment on above: jul 2017; PATIENT W FASTINGPERFORMED BY: CB [facility] Eitbtx7507 [address] RoadDublin [place] [id number] Calcium mass conc 9.5 mg/dL Normal 8.7-10.3 Compreh ensive Internal Medicine Work Phone: Comment on above: jul 2017; PATIENT W FASTINGPERFORMED BY: CB [facility] Djxeuk0318 [address] RoadDublin [place] [id number] Chloride molar conc 104 mmol/L Normal 96-[address] [facility] Internal Medicine Work Phone: Comment on above: jul 2017; PATIENT W FASTINGPERFORMED BY: CB [facility] Klvzti1077 [address] RoadDublin [place] [id number] CO2 molar conc 22 mmol/L Normal 18-29 Comprehens michael Internal Medicine Work Phone: Comment on above: jul 2017; PATIENT W FASTINGPERFORMED BY: CB [facility] Pvkrel8860 [address] RoadDublin [place] [id number] Creatinine mass conc 0.68 mg/dL Normal 0.57-1.00 Comp [facility] Work Phone: Comment on above: jul 2017; PATIENT W FASTINGPERFORMED BY: CB [facility] Wxhzsr4964 [address] RoadDublin [place] [id number] GFR/1.73 sq M predicted among blacks CKD-EPI vol rate/area (S/P/Bld) 101 mL/min/1.73 Normal Comprehe nsive Internal Medicine Work Phone: Comment on above: jul 2017; PATIENT W FASTINGPERFORMED BY: CB [facility] Vcjfce2714 [address] RoadDublin [place] [id number] GFR/1.73 sq M predicted among non-blacks CKD-EPI vol rate/area (S/P/Bld) 88 mL/min/1.73 Normal [facility] Medicine Work Phone: Comment on above: jul 2017; PATIENT W FASTINGPERFORMED BY: ANGELI [facility] Kuqldb1513 [address] [employer] WeekendNovant Health [id number] Globulin Calculated mass conc (S) 3.1 g/dL Normal 1.5-4.5 [facility] Work Phone: Globulin mass conc (S) 3.1 g/dL Normal 1.5-4.5 Co mprehensive Internal Medicine Work Phone: Comment on above: jul 2017; PATIENT W FASTINGPERFORMED BY: ANGELI [facility] Pnnvqs6062 [address] [employer] WeekendNovant Health [id number] Glucose mass conc 104 mg/dL Abnormal 65-99 Compreh ensive Internal Medicine Work Phone: Comment on above: jul 2017; PATIENT W FASTINGPERFORMED BY: ANGELI [facility] Xqrxyn0650 [address] [employer] WeekendNovant Health [id number] Potassium molar conc 4.9 mmol/L Normal 3.5-5.2 Comp rehensive Internal Medicine Work Phone: Comment on above: jul 2017; PATIENT W FASTINGPERFORMED BY: ANGELI [facility] Offpxg9947 [address] [facility]Northern [facility] [id number] Protein mass conc 7.3 g/dL Normal 6.0-8.5 Compreh ensive Internal Medicine Work Phone: Comment on above: jul 2017; PATIENT W FASTINGPERFORMED BY: ANGELI [facility] Itkdcg4795 Mchgee [facility] WeekendNovant Health [id number] Sodium molar conc 144 mmol/L Normal 134-144 Compreh ensive Internal Medicine Work Phone: Comment on above: jul 2017; PATIENT W FASTINGPERFORMED BY: ANGELI [facility] Njxzxk9545 [facility] [id number] Urea nitrogen mass conc 12 mg/dL Normal 8-27 C omprehensive Internal Medicine Work Phone: Comment on above: jul 2017; PATIENT W FASTINGPERFORMED BY: ANGELI [facility] Jwtnox5564 [facility] [id number] Urea nitrogen/Creatinine mass ratio 18 mg/mg Normal 12- [facility] Medicine Work Phone: Comment on above: jul 2017; PATIENT W FASTINGPERFORMED BY: ANGELI Wee Web Bisjhc3645 [facility] [id number] Blood Glucose , Office ([phone])Ordered By: Federica Olivarez on 05-07-2017 Glucose Glucometer molar conc (BldC) 132 1 Normal [facility] Medicine Work Phone: HgA1C , Office ([phone])Ordere d By: Federica Olivarez on 05-07-2017 Hemoglobin A1c/Hemoglobin.total mass fraction (Bld) 6.1 % Normal 4.6 - 7.1 Comprehensiv e Internal Medicine Work Phone: Comment on above: 6.1 CALCIFEDIOL ([id number])Ordered B y: Shopfitter on 02-03-2017 25-Hydroxyvitamin D2+25-Hydroxyvitamin D3 mass conc 36.7 ng/mL Normal 30.0-100.0 [facility] Medicine Work Phone: Comment on above: Vitamin D deficiency has been defined by the [place] ofMedicine and an Endocrine Society practice guideline as alevel of serum 25-OH vitamin D less than 20 ng/mL (1,2).The Endocrine Society went on to further define vitamin Dinsufficiency as a level between 21 and 29 ng/mL (2).1. IOM ([place] of Medicine). 2010. Dietary reference intakes for calcium and D. [place]: The National Academies Press.2. Ace MF, Lurdes NC, Cynthia COFFMAN, et al. Evaluation, treatment, and prevention of vitamin D deficiency: an Endocrine Society clinical practice guideline. JCEM. 2010; 96(7):1911-30. PATIENT WAS FASTINGP ERFORMED BY: ANGELI Wee Web Qsmqec0370 [facility] [id number] MICROALBUMINOrdered By: Syst em Environmental Economist on 02-03-2017 Albumin DL <= 20 mg/L mass conc (U) 5.1 ug/mL Normal [facility] Medicine Work Phone: Comment on above: PATIENT WAS FASTINGP ERFORMED BY: ANGELI [facility] Pjwjec7473 [facility] [id number] Albumin/Creatinine mass ratio (U) 4.4 {mg/g_creat} Normal 0.0-30.0 [facility] Medicine Work Phone: Comment on above: PATIENT WAS FASTINGP ERFORMED BY: [facility] Luanua9573 [facility] [id number] Creatinine mass conc (U) 117.0 mg/dL Normal [facility] Internal Medicine Work Phone: Comment on above: PATIENT WAS FASTINGP ERFORMED BY: [facility] Oqnsnb1825 [facility] [id number] Metabolic Panel, Comprehensi ve (99121)Ordered By: Shopfitter on 02-03-2017 Albumin/Globulin mass ratio 1.4 {ratio} [...] 2.2 PATIENT WAS FASTINGP ERFORMED BY: [facility] Tdzsix1421 [facility] [id number]; ov 02/09 ALP [Catalytic activity/Vol] 82 U/L Normal 39-117 [facility] Medicine Work Phone: Comment on above: PATIENT WAS FASTINGP ERFORMED BY: [facility] Crutvc9789 [facility] [id number]; ov 02/09 ALP enzyme act/vol 82 [iU]/L Normal 39-117 [facility] Internal Medicine Work Phone: Comment on above: PATIENT WAS FASTINGP ERFORMED BY: [facility] Eiwsrh3318 [address] RoadDublin [place] [id number]; ov 3/14 ALT [Catalytic activity/Vol] 50 U/L Abnormal 0-32 [facility] Medicine Work Phone: Comment on above: PATIENT WAS FASTINGP ERFORMED BY: CB [facility] Chubxi0508 [address] RoadDublin [place] [id number]; ov 3/14 ALT enzyme act/vol 50 [iU]/L Abnormal 0-32 [facility] Internal Medicine Work Phone: Comment on above: PATIENT WAS FASTINGP ERFORMED BY: CB [facility] Bahcwy6449 [address] RoadDublin [place] [id number]; ov 314 AST [Catalytic activity/Vol] 43 U/L Abnormal 0-40 [facility] Internal Medicine Work Phone: Comment on above: PATIENT WAS FASTINGP ERFORMED BY: CB [facility] Tjbgmw6733 [address] RoadDublin [place] [id number]; ov 314 AST enzyme act/vol 43 [iU]/L Abnormal 0-40 [facility] Internal Medicine Work Phone: Comment on above: PATIENT WAS FASTINGP ERFORMED BY: CB [facility] Rldcqa6739 [address] RoadDublin [place] [id number]; ov 3/14 Bilirubin mass conc 0.3 mg/dL Normal 0.0-1.2 [facility] Internal Medicine Work Phone: Comment on above: PATIENT WAS FASTINGP ERFORMED BY: CB [facility] Qegink3125 [address] RoadDublin [place] [id number]; ov 3/14 Calcium mass conc 9.8 mg/dL Normal 8.7-10.3 [facility] Internal Medicine Work Phone: Comment on above: PATIENT WAS FASTINGP ERFORMED BY: CB [facility] Rtpalo1241 [address] RoadDublin [place] [id number]; ov 3/14 Chloride molar conc 102 mmol/L Normal 96-106 [facility] Internal Medicine Work Phone: Comment on above: PATIENT WAS FASTINGP ERFORMED BY: CB [facility] Owmbdq3260 [address] RoadDublin [place] [id number]; ov 3/14 CO2 molar conc 21 mmol/L Normal 18-29 Comprehens michael Internal Medicine Work Phone: Comment on above: PATIENT WAS FASTINGP ERFORMED BY: CB [facility] Bgrwsu7877 [address] [facility] [id number]; ov 3/14 Creatinine mass conc 0.67 mg/dL Normal 0.57-1.00 Comp rehensive Internal Medicine Work Phone: Comment on above: PATIENT WAS FASTINGP ERFORMED BY: CB [facility] Pvdjpk8196 [address] [facility] [id number]; ov 3/14 GFR/1.73 sq M predicted among blacks CKD-EPI vol rate/area (S/P/Bld) 102 mL/min/1.73 Normal Comprehe nsive Internal Medicine Work Phone: Comment on above: PATIENT WAS FASTINGP ERFORMED BY: ANGELI [facility] Rswian7658 [facility] [id number]; ov 3/14 GFR/1.73 sq M predicted among non-blacks CKD-EPI vol rate/area (S/P/Bld) 89 mL/min/1.73 Normal [facility] Medicine Work Phone: Comment on above: PATIENT WAS FASTINGP ERFORMED BY: ANGELI [facility] Juphoi2482 [facility] [id number]; ov 3/14 Globulin Calculated mass conc (S) 3.1 g/dL Normal 1.5-4.5 [facility] Medicine Work Phone: Globulin mass conc (S) 3.1 g/dL Normal 1.5-4.5 [facility] Work Phone: Comment on above: PATIENT WAS FASTINGP ERFORMED BY: CB [facility] Bnjnov5034 [facility] [id number]; ov 3/14 Potassium molar conc 5.1 mmol/L Normal 3.5-5.2 Comp rehensive Internal Medicine Work Phone: Comment on above: PATIENT WAS FASTINGP ERFORMED BY: CB [facility] Bbojjn9001 [address] RoadDublin [place] [id number]; ov 3/14 Protein mass conc 7.4 g/dL Normal 6.0-8.5 Compreh ensive Internal Medicine Work Phone: Comment on above: PATIENT WAS FASTINGP ERFORMED BY: CB [facility] Authrp0126 [address] RoadDublin [place] [id number]; ov 314 Sodium molar conc 142 mmol/L Normal 134-144 Compreh ensive Internal Medicine Work Phone: Comment on above: PATIENT WAS FASTINGP ERFORMED BY: CB [facility] Asxuix3286 [address] RoadDublin [place] [id number]; ov 314 PATIENT WAS FASTINGP ERFORMED BY: CB [facility] Wisnwt8568 [address] RoadDublin [place] [id number] Urea nitrogen mass conc 12 mg/dL Normal 8-27 C omprehensive Internal Medicine Work Phone: Comment on above: PATIENT WAS FASTINGP ERFORMED BY: CB [facility] Ysoejw7450 [address] RoadDublin [place] [id number] PATIENT WAS FASTINGP ERFORMED BY: CB [facility] Cnuixc5012 [address] RoadDublin [place] [id number]; ov 314 Urea nitrogen/Creatinine mass ratio 18 mg/mg Normal 11-26 [facility] Medicine Work Phone: Comment on above: PATIENT WAS FASTINGP ERFORMED BY: CB [facility] Djywhd3440 [address] RoadDublin [place] [id number]; ov 314 Renal function Panel ([id number]) Ordered By: Shopfitter on 02-03-2017 Albumin mass conc 4.3 g/dL Normal 3.5-4.8 Compreh ensive Internal Medicine Work Phone: Comment on above: PATIENT WAS FASTINGP ERFORMED BY: CB [facility] Xezrdr1492 [address] RoadDublin [place] [id number] PATIENT WAS FASTINGP ERFORMED BY: CB [facility] Mjojbk4701 [address] RoadDublin [place] [id number]; ov 3/14 Calcium mass conc 9.9 mg/dL Normal 8.7-10.3 Compreh ensive Internal Medicine Work Phone: Comment on above: PATIENT WAS FASTINGP ERFORMED BY: ANGELI [facility] Qkkmvw2081 [address] RoadDublin [place] [id number] Chloride molar conc 101 mmol/L Normal 96-106 Compr ehensive Internal Medicine Work Phone: Comment on above: PATIENT WAS FASTINGP ERFORMED BY: ANGELI [facility] Fyrrki4429 [address] RoadDublin [place] [id number] CO2 molar conc 23 mmol/L Normal 18-29 Comprehens michael Internal Medicine Work Phone: Comment on above: PATIENT WAS FASTINGP ERFORMED BY: ANGELI [facility] Hihxwj6109 [address] RoadDublin [place] [id number] Creatinine mass conc 0.64 mg/dL Normal 0.57-1.00 Comp rehensive Internal Medicine Work Phone: Comment on above: PATIENT WAS FASTINGP ERFORMED BY: ANGELI [facility] Lfgaqx3385 [address] RoadDublin [place] [id number] GFR/1.73 sq M predicted among blacks CKD-EPI vol rate/area (S/P/Bld) 104 mL/min/1.73 Normal Comprehe nsive Internal Medicine Work Phone: Comment on above: PATIENT WAS FASTINGP ERFORMED BY: ANGELI [facility] Tfgsxb8701 [address] RoadDublin [place] [id number] GFR/1.73 sq M predicted among non-blacks CKD-EPI vol rate/area (S/P/Bld) 90 mL/min/1.73 Normal [facility] Medicine Work Phone: Comment on above: PATIENT WAS FASTINGP ERFORMED BY: ANGELI [facility] Tgoxvc5320 [address] RoadDublin [place] [id number] Glucose mass conc 108 mg/dL Abnormal 65-99 Compreh ensive Internal Medicine Work Phone: Comment on above: PATIENT WAS FASTINGP ERFORMED BY: ANGELI [facility] Fmegma3763 [address] RoadDublin [place] [id number] PATIENT WAS FASTINGP ERFORMED BY: CB [facility] Zsxzus2088 [address] RoadDublin [place] [id number]; ov 3/14 Phosphate mass conc 3.5 mg/dL Normal 2.5-4.5 [facility]erens[facility] Internal Medicine Work Phone: Comment on above: PATIENT WAS FASTINGP ERFORMED BY: [facility] Ilihth9861 [facility] [id number] Potassium molar conc 5.2 mmol/L Normal 3.5-5.2 Comp [facility] Work Phone: Comment on above: PATIENT WAS FASTINGP ERFORMED BY: [facility] Xuumzz4383 [facility] [id number] Urea nitrogen/Creatinine mass ratio 19 mg/mg Normal 10-24 [facility] Medicine Work Phone: Comment on above: PATIENT WAS FASTINGP ERFORMED BY: LabCoClara [facility]ass Medical CenterItepnb4801 [facility] [id number] Blood Glucose , Office ([phone])Ordered By: Latrice Levy on 12-09-2016 Glucose Glucometer molar conc (BldC) 110 1 Normal [facility] Medicine Work Phone: [id number]-[id number] ([phone])Ordered By: Shopfitter on 10-13-2016 AFP.tumor marker mass conc 4.7 ng/mL Normal 0.0-8.3 [facility] Medicine Work Phone: Comment on above: Nora ECLIA methodol ogy PATIENT NOT FASTINGP ERFORMED BY: [facility] Tfwyrm4635 [facility] [id number] Blood Glucose , Office ([phone])Ordered By: Latrice Levy on 10-13-2016 Glucose Glucometer molar conc (BldC) 144 1 Normal [facility] Medicine Work Phone: CALCIFEDIOL ([id number])Ordered B y: Shopfitter on 09-30-2016 25-Hydroxyvitamin D2+25-Hydroxyvitamin D3 mass conc 20.2 ng/mL Abnormal 30.0-100.0 [facility] Medicine Work Phone: Comment on above: Vitamin D deficiency has been defined by the [place] ofMedicine and an Endocrine Society practice guideline as alevel of serum 25-OH vitamin D less than 20 ng/mL (1,2).The Endocrine Society went on to further define vitamin Dinsufficiency as a level between 21 and 29 ng/mL (2).1. IOM ([place] of Medicine). 2010. Dietary reference intakes for calcium and D. [place]: The National Academies Press.2. Ace MF, Lurdes WELLS, Cynthia COFFMAN, et al. Evaluation, treatment, and prevention of vitamin D deficiency: an Endocrine Society clinical practice guideline. JCEM. 2010; 96(7):1911-30. PATIENT NOT FASTINGP ERFORMED BY: Eletrogóes [facility] Bnqcib2181 [address] RoadDublin [place] [id number] CBC with auto diff ([id number])Or dered By: Shopfitter on 09-30-2016 Basophils #/vol (Bld) 0.0 {x10E3/uL} Normal 0.0-0.2 [facility] Work Phone: Comment on above: PATIENT NOT FASTINGP ERFORMED BY: CB [facility] Glumnu2130 [address] RoadDublin [place] [id number] Basophils (Bld) [#/Vol] 0.0 10*3/uL Normal 0.0-0.2 [facility] Work Phone: Comment on above: PATIENT NOT FASTINGP ERFORMED BY: CB [facility] Isgtpa8847 [address] RoadDublin [place] [id number] Basophils Auto #/vol (Bld) 0.0 {x10E3/uL} Normal 0.0-0.2 [facility] Work Phone: Basophils/100 WBC (Bld) 1 % Normal C omprehensive Internal Medicine Work Phone: Comment on above: PATIENT NOT FASTINGP ERFORMED BY: CB [facility] Rmeodt4772 [address] RoadDublin [place] [id number] Basophils/100 WBC Auto (Bld) 1 % Normal [facility] Work Phone: Eosinophils #/vol (Bld) 0.3 {x10E3/uL} Normal 0.0-0.4 [facility] Work Phone: Comment on above: PATIENT NOT FASTINGP ERFORMED BY: ANGELI LabComauri Abwcya6847 [address] [facility]in [place] [id number] Eosinophils (Bld) [#/Vol] 0.3 10*3/uL Normal 0.0-0.4 [facility] Work Phone: Comment on above: PATIENT NOT FASTINGP ERFORMED BY: ANGELI [facility] Niyzur4189 Mc[address] RoadHighlands-Cashiers Hospitalin [place] [id number] Eosinophils Auto #/vol (Bld) 0.3 {x10E3/uL} Normal 0.0-0.4 [facility] Work Phone: Eosinophils/100 WBC (Bld) 3 % Normal [facility] Work Phone: Comment on above: PATIENT NOT FASTINGP ERFORMED BY: ANGELI Isabell Weldonlin6370 Mcghee RoadNovant Health [id number] Eosinophils/100 WBC Auto (Bld) 3 % Normal [facility] Work Phone: Erythrocyte distribution width Auto Ratio (RBC) 13.8 % Normal 12.3-15.4 [facility] Work Phone: Erythrocyte distribution width Ratio (RBC) 13.8 % Normal 12.3-15.4 [facility] Work Phone: Comment on above: PATIENT NOT FASTINGP ERFORMED BY: ANGELI Simmons Myomsn[address] [facility] [id number] Hematocrit Auto Volume Fraction (Bld) 39.9 % Normal 34.0-46.6 [facility] Work Phone: Hematocrit Volume Fraction (Bld) 39.9 % Normal 34.0-46.6 [facility] Work Phone: Comment on above: PATIENT NOT FASTINGP ERFORMED BY: ANGELI [facility] Nkczhg[address]11 [address] [facility] [id number] Hemoglobin mass conc (Bld) 13.7 g/dL Normal 11.1-15.9 [facility] Work Phone: Comment on above: PATIENT NOT FASTINGP ERFORMED BY: ANGELI [facility] Oufxrf6046 [address] [facility] [id number] Immature granulocytes #/vol (Bld) 0.0 {x10E3/uL} Normal 0.0-0.1 [facility] Work Phone: Comment on above: PATIENT NOT FASTINGP ERFORMED BY: ANGELI NereydaComauri WeldonFnxaql9736 Mcghee RoadHighlands-Cashiers Hospitalin [place] [id number] Immature granulocytes (Bld) [#/Vol] 0.0 10*3/uL Normal 0.0-0.1 [facility] Work Phone: Comment on above: PATIENT NOT FASTINGP ERFORMED BY: Lab[facility] Rpthsa1748 [address] [facility]in [place] [id number] Immature granulocytes/100 WBC (Bld) 0 % Normal [facility] Work Phone: Comment on above: PATIENT NOT FASTINGP ERFORMED BY: NereydaSaint Luke'[facility]ry [facility] Swyvxa[address] [facility] [id number] Lymphocytes #/vol (Bld) 3.0 {x10E3/uL} Normal 0.7-3.1 [facility] Work Phone: Comment on above: PATIENT NOT FASTINGP ERFORMED BY: LabSaint [facility] Xuemgp0412 [address] [facility]in [place] [id number] Lymphocytes (Bld) [#/Vol] 3.0 10*3/uL Normal 0.7-3.1 [facility] Work Phone: Comment on above: PATIENT NOT FASTINGP ERFORMED BY: LabSteven Ville 436[address] [facility] [id number] Lymphocytes Auto #/vol (Bld) 3.0 {x10E3/uL} Normal 0.7-3.1 [facility] Work Phone: Lymphocytes/100 WBC (Bld) 38 % Normal [facility] Work Phone: Comment on above: PATIENT NOT FASTINGP ERFORMED BY: LabCo Urwjsk1076 Mc[address] RoadHighlands-Cashiers Hospitalin [place] [id number] Lymphocytes/100 WBC Auto (Bld) 38 % Normal [facility] Work Phone: MCH Auto Entitic mass (RBC) 29.8 pg Normal 26.6-33.0 [facility] Work Phone: MCH Entitic mass (RBC) 29.8 pg Normal 26.6-33.0 Co [facility] Internal Medicine Work Phone: Comment on above: PATIENT NOT FASTINGP ERFORMED BY: [facility] Nzjkll2165 [facility] [id number] MCHC Auto mass conc (RBC) 34.3 g/dL Normal 31.5-35.7 [facility] Work Phone: MCHC mass conc (RBC) 34.3 g/dL Normal 31.5-35.7 [facility] Internal Medicine Work Phone: Comment on above: PATIENT NOT FASTINGP ERFORMED BY: LabCoClara Maass Medical CenterAolhbj0228 [facility] [id number] MCV Auto Entitic volume (RBC) 87 fL Normal 79-97 [facility] Work Phone: MCV Entitic volume (RBC) 87 fL Normal 79-97 [facility] Work Phone: Comment on above: PATIENT NOT FASTINGP ERFORMED BY: [facility] Zrqqvu2968 [facility] [id number] Monocytes #/vol (Bld) 0.6 {x10E3/uL} Normal 0.1-0.9 [facility] Work Phone: Comment on above: PATIENT NOT FASTINGP ERFORMED BY: [facility] Tauwut4173 [facility] [id number] Monocytes (Bld) [#/Vol] 0.6 10*3/uL Normal 0.1-0.9 [facility] Work Phone: Comment on above: PATIENT NOT FASTINGP ERFORMED BY: [facility] Skabcv7892 [facility] [id number] Monocytes Auto #/vol (Bld) 0.6 {x10E3/uL} Normal 0.1-0.9 [facility] Work Phone: Monocytes/100 WBC (Bld) 7 % Normal C omprehensive Internal Medicine Work Phone: Comment on above: PATIENT NOT FASTINGP ERFORMED BY: CB [facility] Corotv2709 [address] RoadDublin [place] [id number] Monocytes/100 WBC Auto (Bld) 7 % Normal [facility] Work Phone: Neutrophils #/vol (Bld) 3.9 {x10E3/uL} Normal 1.4-7.0 [facility] Work Phone: Comment on above: PATIENT NOT FASTINGP ERFORMED BY: CB [facility] Yuydmv3636 [address] RoadDublin [place] [id number] Neutrophils (Bld) [#/Vol] 3.9 10*3/uL Normal 1.4-7.0 [facility] Work Phone: Comment on above: PATIENT NOT FASTINGP ERFORMED BY: CB [facility] Ovtyda0005 [address] RoadDublin [place] [id number] Neutrophils Auto #/vol (Bld) 3.9 {x10E3/uL} Normal 1.4-7.0 [facility] Work Phone: Neutrophils/100 WBC (Bld) 51 % Normal [facility] Work Phone: Comment on above: PATIENT NOT FASTINGP ERFORMED BY: CB [facility] Idpbrf1526 [address] RoadDublin [place] [id number] Neutrophils/100 WBC Auto (Bld) 51 % Normal [facility] Work Phone: Platelets #/vol (Bld) 145 {x10E3/uL} Abnormal 150-379 [facility] Work Phone: Comment on above: PATIENT NOT FASTINGP ERFORMED BY: CB [facility] Pfiodk0116 [address] RoadDublin [place] [id number] Platelets (Bld) [#/Vol] 145 10*3/uL Abnormal 150-379 [facility] Work Phone: Comment on above: PATIENT NOT FASTINGP ERFORMED BY: CB [facility] Vqlvxu3193 [address] RoadDublin [place] [id number] Platelets Auto #/vol (Bld) 145 {x10E3/uL} Abnormal 150-379 [facility] Work Phone: RBC #/vol (Bld) 4.59 {x10E6/uL} Normal 3.77-5.28 Comp [facility] Internal Medicine Work Phone: Comment on above: PATIENT NOT FASTINGP ERFORMED BY: CB [facility] Zznadv5987 [address] [facility] [id number] RBC (Bld) [#/Vol] 4.59 10*6/uL Normal 3.77-5.[address] [facility] Internal Medicine Work Phone: Comment on above: PATIENT NOT FASTINGP ERFORMED BY: CB [facility] Ayadje[address] [facility] [id number] RBC Auto #/vol (Bld) 4.59 {x10E6/uL} Normal 3.77-5.28 [facility] Work Phone: WBC #/vol (Bld) 7.8 {x10E3/uL} Normal 3.4-10.8 [facility] Internal Medicine Work Phone: Comment on above: PATIENT NOT FASTINGP ERFORMED BY: CB [facility] Sexdev4642 [facility] [id number] WBC (Bld) [#/Vol] 7.8 10*3/uL Normal 3.4-10.8 [facility] Internal [facility] Work Phone: Comment on above: PATIENT NOT FASTINGP ERFORMED BY: CB [facility] Fxjibt4111 [facility] [id number] WBC Auto #/vol (Bld) 7.8 {x10E3/uL} Normal 3.4-10.8 [facility] Internal Medicine Work Phone: HgA1C , Office ([phone])Ordere d By: Latrice Levy on 09-30-2016 Hemoglobin A1c/Hemoglobin.total mass fraction (Bld) 9.7 % Abnormal 4.6 - 7.1 Comprehensiv e Internal Medicine Work Phone: METABOLIC PANEL, COMPREHENSI VE ([phone])Ordered By: Shopfitter on 09-30-2016 Albumin mass conc 4.4 g/dL Normal 3.5-4.8 [facility] Internal Medicine Work Phone: Comment on above: PATIENT NOT FASTINGP ERFORMED BY: ANGELI [facility] Fvwtjc2032 [address] RoadDublin [place] [id number] Albumin/Globulin mass ratio 1.3 {ratio} Normal 1.1-2.5 [facility] Work Phone: Comment on above: PATIENT NOT FASTINGP ERFORMED BY: CB [facility] Zilvje1949 [address]Dublin [place] [id number] ALP [Catalytic activity/Vol] 90 U/L Normal 39-117 [facility] Work Phone: Comment on above: PATIENT NOT FASTINGP ERFORMED BY: CB [facility] Fncxaa1870 [address] RoadDublin [place] [id number] ALP enzyme act/vol 90 [iU]/L Normal 39-117 [facility] Internal Medicine Work Phone: Comment on above: PATIENT NOT FASTINGP ERFORMED BY: CB [facility] Prskdg3308 [address] RoadDublin [place] [id number] ALT [Catalytic activity/Vol] 83 U/L Abnormal 0-32 [facility] Work Phone: Comment on above: PATIENT NOT FASTINGP ERFORMED BY: CB [facility] Vdpxem4676 [address] RoadDublin [place] [id number] ALT enzyme act/vol 83 [iU]/L Abnormal 0-32 [facility] Internal [facility] Work Phone: Comment on above: PATIENT NOT FASTINGP ERFORMED BY: CB [facility] Revral6763 [address] RoadDublin [place] [id number] AST [Catalytic activity/Vol] 81 U/L Abnormal 0-40 [facility] Work Phone: Comment on above: PATIENT NOT FASTINGP ERFORMED BY: CB [facility] Ptpiqe6094 [address] RoadDublin [place] [id number] AST enzyme act/vol 81 [iU]/L Abnormal 0-40 [facility] Internal Medicine Work Phone: Comment on above: PATIENT NOT FASTINGP ERFORMED BY: CB [facility] Scurdf2635 [address] RoadDublin [place] [id number] Bilirubin mass conc 0.3 mg/dL Normal 0.0-1.2 Compr ehensive Internal Medicine Work Phone: Comment on above: PATIENT NOT FASTINGP ERFORMED BY: CB [facility] Xljddw4126 [address] RoadDublin [place] [id number] Calcium mass conc 9.9 mg/dL Normal 8.7-10.3 Compreh ensive Internal Medicine Work Phone: Comment on above: PATIENT NOT FASTINGP ERFORMED BY: CB [facility] Kgsdun7101 [address] RoadDublin [place] [id number] Chloride molar conc 98 mmol/L Normal 97-106 Compr ensive Internal Medicine Work Phone: Comment on above: PATIENT NOT FASTINGP ERFORMED BY: CB [facility] Brhalr0341 [address]Dublin [place] [id number] CO2 molar conc 22 mmol/L Normal 18-29 Comprehens michael Internal Medicine Work Phone: Comment on above: PATIENT NOT FASTINGP ERFORMED BY: CB [facility] Ooukzs4310 [address]Dublin [place] [id number] Creatinine mass conc 0.68 mg/dL Normal 0.57-1.00 [facility] Work Phone: Comment on above: PATIENT NOT FASTINGP ERFORMED BY: CB [facility] Bmpszg3475 [address] RoadDublin [place] [id number] GFR/1.73 sq M predicted among blacks CKD-EPI vol rate/area (S/P/Bld) 102 mL/min/1.73 Normal Comprehe nsive Internal Medicine Work Phone: Comment on above: PATIENT NOT FASTINGP ERFORMED BY: CB [facility] Sqlofq9650 [address]Dublin [place] [id number] GFR/1.73 sq M predicted among non-blacks CKD-EPI vol rate/area (S/P/Bld) 88 mL/min/1.73 Normal [facility] Work Phone: Comment on above: PATIENT NOT FASTINGP ERFORMED BY: CB [facility] Jawvsm7999 [address]Dublin [place] [id number] Globulin Calculated mass conc (S) 3.4 g/dL Normal 1.5-4.5 [facility] Work Phone: Globulin mass conc (S) 3.4 g/dL Normal 1.5-4.5 Co mprehensive Internal Medicine Work Phone: Comment on above: PATIENT NOT FASTINGP ERFORMED BY: CB [facility] Rhtgzv7127 [address]Dublin [place] [id number] Glucose mass conc 177 mg/dL Abnormal 65-99 Compreh ensive Internal Medicine Work Phone: Comment on above: PATIENT NOT FASTINGP ERFORMED BY: CB [facility] Imqbaj4840 [address] RoadDublin [place] [id number] Potassium molar conc 4.4 mmol/L Normal 3.5-5.2 Comp rehensive Internal Medicine Work Phone: Comment on above: PATIENT NOT FASTINGP ERFORMED BY: CB [facility] Alxspf2743 [address]Dublin [place] [id number] Protein mass conc 7.8 g/dL Normal 6.0-8.5 Compreh ensive Internal Medicine Work Phone: Comment on above: PATIENT NOT FASTINGP ERFORMED BY: CB [facility] Dfdrww3704 [address]Dublin [place] [id number] Sodium molar conc 139 mmol/L Normal 136-144 Compreh ensive Internal Medicine Work Phone: Comment on above: PATIENT NOT FASTINGP ERFORMED BY: CB [facility] Hsbwgc4192 [address]Dublin [place] [id number] Urea nitrogen mass conc 15 mg/dL Normal 8-27 C omprehensive Internal Medicine Work Phone: Comment on above: PATIENT NOT FASTINGP ERFORMED BY: CB [facility] Ueyqgt9718 [address] RoadDublin [place] [id number] Urea nitrogen/Creatinine mass ratio 22 mg/mg Normal 11-26 [facility] Work Phone: Comment on above: PATIENT NOT FASTINGP ERFORMED BY: ANGELI [facility] Ghfkfs8610 [address]Dublin [place] [id number] MICROALBUMINOrdered By: Syst em Environmental Economist on 09-30-2016 Albumin DL <= 20 mg/L mass conc (U) 37.8 ug/mL Normal [facility] Work Phone: Comment on above: PATIENT NOT FASTINGP ERFORMED BY: ANGELI [facility] Zmcroi8575 [address] RoadDublin [place] [id number] Albumin/Creatinine mass ratio (U) 44.0 {mg/g_creat} Abnormal 0.0-30.0 [facility] Work Phone: Comment on above: PATIENT NOT FASTINGP ERFORMED BY: ANGELI [facility] Rudpci3835 [address]Dublin [place] [id number] Creatinine mass conc (U) 85.9 mg/dL Normal [facility] Work Phone: Comment on above: PATIENT NOT FASTINGP ERFORMED BY: ANGELI [facility] Ynwcam5946 [address]Dublin [place] [id number] TSH (THYROID STIMULATING HOR BARRON) ([id number])Ordered By: Shopfitter on 09-30-2016 Thyrotropin Qn 4.020 {uIU/mL} Normal 0.450-4.50 0 [facility] Work Phone: Comment on above: PATIENT NOT FASTINGP ERFORMED BY: ANGELI [facility] Svgxea1216 [address]Dublin [place] [id number] URINALYSIS ([id number])Ordered By : Shopfitter on 09-30-2016 Appearance Nom (U) Clear Normal Compre hensive Internal Medicine Work Phone: Comment on above: PATIENT NOT FASTINGP ERFORMED BY: ANGELI [facility] Licsoc9079 [address] RoadDublin [place] [id number] Bilirubin Ql (U) Negative Normal Comprehe nsive Internal Medicine Work Phone: Comment on above: PATIENT NOT FASTINGP ERFORMED BY: ANGELI [facility] Hnbxoa5339 [address]Dublin [place] [id number] Bilirubin Ql (U) Negative Normal Comprehe nsive Internal Medicine Work Phone: Comment on above: PATIENT NOT FASTINGP ERFORMED BY: ANGELI [facility] Epjwig2688 [address] RoadDublin [place] [id number] Color Nom (U) Yellow Normal Comprehensi ve Internal Medicine Work Phone: Comment on above: PATIENT NOT FASTINGP ERFORMED BY: ANGELI [facility] Zxknui2439 [address]Dublin [place] [id number] Glucose Ql (U) Trace Abnormal Comprehens michael Internal Medicine Work Phone: Comment on above: PATIENT NOT FASTINGP ERFORMED BY: ANGELI [facility] Dtlljx0544 [address]Dublin [place] [id number] Hemoglobin Ql (U) Negative Normal Compreh ensive Internal Medicine Work Phone: Comment on above: PATIENT NOT FASTINGP ERFORMED BY: ANGELI [facility] Wtkaiv8372 [address] RoadDublin [place] [id number] Hemoglobin Ql (U) Negative Normal Compreh ensive Internal Medicine Work Phone: Comment on above: PATIENT NOT FASTINGP ERFORMED BY: ANGELI [facility] Ewcajo2154 [address]Dublin [place] [id number] Hemoglobin Test strip Ql (U) Negative Normal [facility] Work Phone: Ketones Ql (U) Negative Normal Comprehens michael Internal Medicine Work Phone: Comment on above: PATIENT NOT FASTINGP ERFORMED BY: ANGELI [facility] Qywnzt8078 [address]Dublin [place] [id number] Ketones Ql (U) Negative Normal Comprehens michael Internal Medicine Work Phone: Comment on above: PATIENT NOT FASTINGP ERFORMED BY: CB [facility] Uiefwp7097 [address]Dublin [place] [id number] Leukocyte esterase Test strip Ql (U) Negative Normal [facility] Work Phone: Comment on above: PATIENT NOT FASTINGP ERFORMED BY: ANGELI [facility] Axtpqi0479 [address] RoadDublin [place] [id number] Leukocyte esterase Test strip Ql (U) Negative Normal [facility] Work Phone: Comment on above: PATIENT NOT FASTINGP ERFORMED BY: ANGELI LabDajuan WeldonPxpzba4832 [address] RoadDublin [place] [id number] Microscopic observation LM Nom (Urine sed) MICNIP Normal [facility] Work Phone: Comment on above: Microscopic not negro cated and not performed. PATIENT NOT FASTINGP ERFORMED BY: ANGELI LabDajuan WeldonAmpcim3190 [address] RoadDublin [place] [id number] Nitrite Ql (U) Negative Normal Comprehens michael [facility] Work Phone: Comment on above: PATIENT NOT FASTINGP ERFORMED BY: ANGELI LabComauri WeldonFofsde0348 [address] RoadDublin [place] [id number] Nitrite Ql (U) Negative Normal Comprehens michael [facility] Medicine Work Phone: Comment on above: PATIENT NOT FASTINGP ERFORMED BY: ANGELI Weldonlin6370 [address]Dublin [place] [id number] Nitrite Test strip Ql (U) Negative Normal [facility] Work Phone: pH (U) 6.0 [pH] Normal 5.0-7.5 [facility] Work Phone: Comment on above: PATIENT NOT FASTINGP ERFORMED BY: ANGELI Weldonlin6370 [address]Dublin [place] [id number] pH Test strip (U) 6.0 [pH] Normal 5.0-7.5 Compreh ensive Internal Medicine Work Phone: Protein Ql (U) Trace Normal Comprehens michael [facility] Medicine Work Phone: Comment on above: PATIENT NOT FASTINGP ERFORMED BY: ANGELI [facility] Lcgrls8265 [address]Dublin [place] [id number] Protein Test strip Ql (U) Trace Normal [facility] Work Phone: Specific gravity Relative Density (U) 1.020 1 Normal 1.005-1.03 0 [facility] Work Phone: Comment on above: PATIENT NOT FASTINGP ERFORMED BY: ANGELI LabComauri WeldonZhckkj6195 [address] RoadDublin [place] [id number] Urobilinogen (U) [Mass/Vol] 1.0 mg/dL Normal 0.2-1.0 [facility] Work Phone: Comment on above: PATIENT NOT FASTINGP ERFORMED BY: ANGELI DawnComauri CoelloEgwxau1334 [address] Rosasbljimmy [place] [id number] Urobilinogen Test strip mass conc (U) 1.0 mg/dL Normal 0.2-1.0 [facility] Work Phone: Comment on above: PATIENT NOT FASTINGP ERFORMED BY: [facility] Jxtbzv[address] [facility] [id number] PELVIC (NON )Ordered By: Shopfitter on 08-24-2013 PELVIC (NON ) See Note [...] Ford M.D.August 24, 2013 at 1:44:02 PM [id number] Signed GP/GP If you are the referring physician and would like to consult with theradiologist who provided this interpretation, please contact Radha Graves at [phone]. If this radiologist is unavailable, youwill be directed to another radiologist to assist. If you are a patient with a question regarding this report, pleasecontactyour referring physician directly. Professional Interpretation Provided By: Help/Systems, Phone , These documents contain legally protected [...] size of the right kidney. The right fxvraooztmuoao68.3 cm. Normal renal cortex. The right cortex measures 1.1 cm. Thereisno demonstrated renal mass or cyst. There is no right hydronephrosis. Left Kidney: Normal size of the left kidney. The left kidney .4cm. Normal renal cortex. The left cortex measures [...] Ford M.D.August 24, 2013 at 1:03:34 PM [id number] Signed GP/GP If you are the referring physician and would like to consult with theradiologist who provided this interpretation, please contact Radha Graves at [phone]. If this radiologist is unavailable, youwill be directed to another radiologist to assist. If you are a patient with a question regarding this report, pleasecontactyour referring physician directly. Professional Interpretation Provided By: Help/Systems, Phone , These documents contain legally protected [...] Liliana CLEMONS,Fernando Nuclear Stress TestOrdered B y: Shopfitter on 08-17-2013 Nuclear Stress Test See Note [...] The patient was injected with 40.5 mCi [id number] Cardiolite and subsequently stress SPECT Cardiolite nuclear [...] Ailyn ROMO by Mavis CLEMONS,Papa on 08/17/13 1739 Sign by: Papa Gamble MD CALCIFEDIOL ([id number])Ordered B y: Shopfitter on 08-15-2013 25-Hydroxyvitamin D2+25-Hydroxyvitamin D3 mass conc 12.0 ng/mL Abnormal 30.0-100.0 [facility] Work Phone: Comment on above: Vitamin D deficiency has been defined by the [place] ofMedicine and an Endocrine Society practice guideline as alevel of serum 25-OH vitamin D less than 20 ng/mL (1,2).The Endocrine Society went on to further define vitamin Dinsufficiency as a level between 21 and 29 ng/mL (2).1. IOM ([place] of Medicine). 2010. Dietary reference intakes for calcium and D. [place]: The National Academies Press.2. Ace MF, Lurdes WELLS, Cynthia COFFMAN, et al. Evaluation, treatment, and prevention of vitamin D deficiency: an Endocrine Society clinical practice guideline. JCEM. 2010; 96(7):1911-30. PATIENT NOT FASTINGP ERFORMED BY: [facility] Zejkql3217 [facility] [id number] HEPATIC FUNCTION PANEL ([id number])Ordered By: Shopfitter on 08-15-2013 Albumin mass conc 4.5 g/dL Normal 3.6-4.8 Compreh ensive Internal Medicine Work Phone: Comment on above: PATIENT NOT FASTINGP ERFORMED BY: ANGELI Isabell Coello[address] [facility] [id number] Information: ADD [id number] AND DRAW FEE 99 6660 ALP [Catalytic activity/Vol] 79 U/L Normal 47-112 [facility] Work Phone: Comment on above: PATIENT NOT FASTINGP ERFORMED BY: ANGELI LabDajuan Jnifzw[address] [facility] [id number] Information: ADD [id number] AND DRAW FEE 99 6660 ALP enzyme act/vol 79 [iU]/L Normal 47-112 [facility] Internal Medicine Work Phone: Comment on above: PATIENT NOT FASTINGP ERFORMED BY: ANGELI Isabell Weldonlin6370 [facility] [id number] Information: ADD [id number] AND DRAW FEE 99 6660 ALT [Catalytic activity/Vol] 57 U/L Abnormal 0-32 [facility] Work Phone: Comment on above: PATIENT NOT FASTINGP ERFORMED BY: ANGELI Iris Ponjvg6921 [facility] [id number] Information: ADD [id number] AND DRAW FEE 99 6660 ALT enzyme act/vol 57 [iU]/L Abnormal 0-32 [facility] Internal Medicine Work Phone: Comment on above: PATIENT NOT FASTINGP ERFORMED BY: ANGELI NereydaOsman Rbalrx8825 [facility] [id number] Information: ADD F06107 AND DRAW FEE 99 6660 AST [Catalytic activity/Vol] 39 U/L Normal 0-40 [facility] Work Phone: Comment on above: PATIENT NOT FASTINGP ERFORMED BY: ANGELI Iris Tgircl4846 [facility] [id number] Information: ADD M02531 AND DRAW FEE 99 6660 AST enzyme act/vol 39 [iU]/L Normal 0-40 [facility] Internal Medicine Work Phone: Comment on above: PATIENT NOT FASTINGP ERFORMED BY: ANGELI [facility] Nxpvfu[address] [facility]in [place] [id number] Information: ADD E11688 AND DRAW FEE 99 6660 Bilirubin mass conc 0.2 mg/dL Normal 0.0-1.2 Compr ehensive Internal Medicine Work Phone: Comment on above: PATIENT NOT FASTINGP ERFORMED BY: ANGELI [facility] Puallb[address] [facility] [place] [id number] Information: ADD [id number] AND DRAW FEE 99 6660 Bilirubin.direct mass conc 0.08 mg/dL Normal 0.00-0.40 [facility] Work Phone: Comment on above: PATIENT NOT FASTINGP ERFORMED BY: [facility] Ygguks[address] [facility] [id number] Information: ADD I92479 AND DRAW FEE 99 6660 Protein mass conc 7.3 g/dL Normal 6.0-8.5 Compreh ensive Internal Medicine Work Phone: Comment on above: PATIENT NOT FASTINGP ERFORMED BY: LabCoClara [facility] CenterYnbhfn[address] [facility] [id number] Information: ADD [id number] AND DRAW FEE 99 6660 HEPATITIS PANEL ([id number])Order ed By: Shopfitter on 08-15-2013 HAV IgM IA Ql Negative Normal Comprehensi ve Internal Medicine Work Phone: Comment on above: PATIENT NOT FASTINGP ERFORMED BY: [facility] Lciixq[address] [facility] [id number] HAV IgM IA Ql Negative Normal Comprehensi ve Internal Medicine Work Phone: Comment on above: PATIENT NOT FASTINGP ERFORMED BY: [facility] Pgwfbc4305 [address] RoadHighlands-Cashiers Hospitalin [place] [id number] HBV core IgM IA Ql Negative Normal Compre hensive Internal Medicine Work Phone: Comment on above: PATIENT NOT FASTINGP ERFORMED BY: [facility] Wtjnjo2012 Mcghee RoadNovant Health [id number] HBV core IgM IA Ql Negative Normal Compre hensive Internal Medicine Work Phone: Comment on above: PATIENT NOT FASTINGP ERFORMED BY: [facility]6370 [facility] [id number] HBV surface Ag IA Ql Negative Normal Comp rehensive Internal Medicine Work Phone: Comment on above: PATIENT NOT FASTINGP ERFORMED BY: [facility]6370 [facility] [id number] HBV surface Ag IA Ql Negative Normal Comp rehensive Internal Medicine Work Phone: Comment on above: PATIENT NOT FASTINGP ERFORMED BY: [facility]6370 [facility] [id number] HCV Ab Signal/Cutoff IA [Rel units/Vol] {ratio} Normal 0.0-0.9 [facility] Work Phone: Comment on above: Negative: < 0.8 Inde terminate 0.8 - 0.9 Positive: > 0.9 . In order to reduce the incidence of a false positive result, the CDC recommends that all s/co ratios between 1.0 and 10.9 be confirmed by a more specific supplemental or PCR testing. [facility] offers HCV Ab w/Reflex to Verification test #[id number]. PATIENT NOT FASTINGP ERFORMED BY: [facility]6370 [facility] [id number] HCV Ab Signal/Cutoff IA RelACnc {ratio} Normal 0.0-0.9 [facility] Internal Medicine Work Phone: Comment on above: Negative: < 0.8 Inde terminate 0.8 - 0.9 Positive: > 0.9 . In order to reduce the incidence of a false positive result, the CDC recommends that all s/co ratios between 1.0 and 10.9 be confirmed by a more specific supplemental or PCR testing. [facility] offers HCV Ab w/Reflex to Verification test #[id number]. PATIENT NOT FASTINGP ERFORMED BY: [facility]6370 [facility] [id number] T3, FREE (TRIDOTHYRONINE) (8 0570)Ordered By: Shopfitter on 08-15-2013 T3 free mass conc 2.8 pg/mL Normal 2.0-4.4 Compreh ensive Internal Medicine Work Phone: Comment on above: PATIENT NOT FASTINGP ERFORMED BY: [facility]6370 [facility] [id number] T4, FREE (THYROXINE) ([id number]) Ordered By: Shopfitter on 08-15-2013 T4 free mass conc 0.80 ng/dL Abnormal 0.82-1.77 Compreh ensive Internal Medicine Work Phone: Comment on above: PATIENT NOT FASTINGP ERFORMED BY: [facility]6370 [facility] [id number] TSH (THYROID STIMULATING HOR BARRON) ([id number])Ordered By: Shopfitter on 08-15-2013 Thyrotropin Qn 6.740 {uIU/mL} Abnormal 0.450-4.50 0 [facility] Work Phone: Comment on above: PATIENT NOT FASTINGP ERFORMED BY: [facility]6370 [facility] [id number] CBC, Platelets & Auto Diff ( [id number])Ordered By: Shopfitter on 08-07-2013 Basophils #/vol (Bld) 0.0 {x10E3/uL} Normal 0.0-0.2 [facility] Work Phone: Comment on above: PATIENT WAS FASTINGP ERFORMED BY: [facility]6370 [facility] [id number] Information: [id number] Basophils (Bld) [#/Vol] 0.0 10*3/uL Normal 0.0-0.2 [facility] Work Phone: Comment on above: PATIENT WAS FASTINGP ERFORMED BY: [facility]6370 [facility] [id number] Information: [id number] Basophils Auto #/vol (Bld) 0.0 {x10E3/uL} Normal 0.0-0.2 [facility] Work Phone: Basophils/100 WBC (Bld) 1 % Normal 0-3 C omprehensive Internal Medicine Work Phone: Comment on above: PATIENT WAS FASTINGP ERFORMED BY: [facility]6370 [facility] [id number] Information: [id number] Basophils/100 WBC Auto (Bld) 1 % Normal 0-3 [facility] Work Phone: Eosinophils #/vol (Bld) 0.3 {x10E3/uL} Normal 0.0-0.4 [facility] Work Phone: Comment on above: Please note refere nce interval change PATIENT WAS FASTINGP ERFORMED BY: [place] 5169970 [facility] [id number] Information: [id number] Eosinophils (Bld) [#/Vol] 0.3 10*3/uL Normal 0.0-0.4 [facility] Work Phone: Comment on above: Please note refere nce interval change PATIENT WAS FASTINGP ERFORMED BY: [place] 5169970 [facility] [id number] Information: [id number] Eosinophils Auto #/vol (Bld) 0.3 {x10E3/uL} Normal 0.0-0.4 [facility] Work Phone: Comment on above: Please note refere nce interval change Eosinophils/100 WBC (Bld) 4 % Normal 0-5 [facility] Work Phone: Comment on above: Please note refere nce interval change PATIENT WAS FASTINGP ERFORMED BY: [place] 5169970 [facility] [id number] Information: [id number] Eosinophils/100 WBC Auto (Bld) 4 % Normal 0-5 [facility] Work Phone: Comment on above: Please note refere nce interval change Erythrocyte distribution width Auto Ratio (RBC) 14.1 % Normal 12.3-15.4 [facility] Work Phone: Erythrocyte distribution width Ratio (RBC) 14.1 % Normal 12.3-15.4 [facility] Work Phone: Comment on above: PATIENT WAS FASTINGP ERFORMED BY: ANGELI [address] [id number] Information: [id number] Hematocrit Auto Volume Fraction (Bld) 41.7 % Normal 34.0-46.6 [facility] Work Phone: Hematocrit Volume Fraction (Bld) 41.7 % Normal 34.0-46.6 [facility] Work Phone: Comment on above: PATIENT WAS FASTINGP ERFORMED BY: [address] [id number] Information: [id number] Hemoglobin mass conc (Bld) 13.6 g/dL Normal 11.1-15.9 [facility] Work Phone: Comment on above: PATIENT WAS FASTINGP ERFORMED BY: [address] [id number] Information: [id number] Immature granulocytes #/vol (Bld) 0.0 {x10E3/uL} Normal 0.0-0.1 [facility] Work Phone: Comment on above: PATIENT WAS FASTINGP ERFORMED BY: [address] [id number] Information: [id number] Immature granulocytes (Bld) [#/Vol] 0.0 10*3/uL Normal 0.0-0.1 [facility] Work Phone: Comment on above: PATIENT WAS FASTINGP ERFORMED BY: [address] [id number] Information: [id number] Immature granulocytes/100 WBC (Bld) 0 % Normal 0-2 [facility] Work Phone: Comment on above: PATIENT WAS FASTINGP ERFORMED BY: [address] [place] [id number] Information: [id number] Lymphocytes #/vol (Bld) 3.2 {x10E3/uL} Abnormal 0.7-3.1 [facility] Work Phone: Comment on above: Please note refere nce interval change PATIENT WAS FASTINGP ERFORMED BY: [place] 5169970 [facility] [id number] Information: [id number] Lymphocytes (Bld) [#/Vol] 3.2 10*3/uL Abnormal 0.7-3.1 [facility] Work Phone: Comment on above: Please note refere nce interval change PATIENT WAS FASTINGP ERFORMED BY: ANGELI [place] 6576270 [facility] [id number] Information: [id number] Lymphocytes Auto #/vol (Bld) 3.2 {x10E3/uL} Abnormal 0.7-3.1 [facility] Work Phone: Comment on above: Please note refere nce interval change Lymphocytes/100 WBC (Bld) 44 % Normal 14-46 [facility] Work Phone: Comment on above: Please note refere nce interval change PATIENT WAS FASTINGP ERFORMED BY: [place] 5169970 [facility] [id number] Information: [id number] Lymphocytes/100 WBC Auto (Bld) 44 % Normal 14-46 [facility] Work Phone: Comment on above: Please note refere nce interval change MCH Auto Entitic mass (RBC) 29.1 pg Normal 26.6-33.0 [facility] Work Phone: MCH Entitic mass (RBC) 29.1 pg Normal 26.6-33.0 [facility] Internal Medicine Work Phone: Comment on above: PATIENT WAS FASTINGP ERFORMED BY: [place] [id number] [facility] [id number] Information: [id number] MCHC Auto mass conc (RBC) 32.6 g/dL Normal 31.5-35.7 [facility] Work Phone: MCHC mass conc (RBC) 32.6 g/dL Normal 31.5-35.7 [facility] Work Phone: Comment on above: PATIENT WAS FASTINGP ERFORMED BY: [address] [id number] Information: [id number] MCV Auto Entitic volume (RBC) 89 fL Normal 79-97 [facility] Work Phone: MCV Entitic volume (RBC) 89 fL Normal 79-97 [facility] Work Phone: Comment on above: PATIENT WAS FASTINGP ERFORMED BY: [address] [id number] Information: [id number] Monocytes #/vol (Bld) 0.7 {x10E3/uL} Normal 0.1-0.9 [facility] Work Phone: Comment on above: Please note refere nce interval change PATIENT WAS FASTINGP ERFORMED BY: [address] [id number] Information: [id number] Monocytes (Bld) [#/Vol] 0.7 10*3/uL Normal 0.1-0.9 [facility] Work Phone: Comment on above: Please note refere nce interval change PATIENT WAS FASTINGP ERFORMED BY: [place] [id number] [facility] [id number] Information: [id number] Monocytes Auto #/vol (Bld) 0.7 {x10E3/uL} Normal 0.1-0.9 [facility] Work Phone: Comment on above: Please note refere nce interval change Monocytes/100 WBC (Bld) 10 % Normal 4-12 [facility] Work Phone: Comment on above: Please note refere nce interval change PATIENT WAS FASTINGP ERFORMED BY: [facility] Xvkiai5914 [facility] [id number] Information: [id number] Monocytes/100 WBC Auto (Bld) 10 % Normal 4-12 [facility] Work Phone: Comment on above: Please note refere nce interval change Neutrophils #/vol (Bld) 2.9 {x10E3/uL} Normal 1.4-7.0 [facility] Work Phone: Comment on above: Please note refere nce interval change PATIENT WAS FASTINGP ERFORMED BY: LabSteven Ville [id number] [facility] [id number] Information: [id number] Neutrophils (Bld) [#/Vol] 2.9 10*3/uL Normal 1.4-7.0 [facility] Work Phone: Comment on above: Please note refere nce interval change PATIENT WAS FASTINGP ERFORMED BY: [facility]CoCl[facility] CenterWznkkz8690 [facility] [id number] Information: [id number] Neutrophils Auto #/vol (Bld) 2.9 {x10E3/uL} Normal 1.4-7.0 [facility] Work Phone: Comment on above: Please note refere nce interval change Neutrophils/100 WBC (Bld) 41 % Normal 40-74 [facility] Work Phone: Comment on above: Please note refere nce interval change PATIENT WAS FASTINGP ERFORMED BY: [facility] Crszty6418 [facility] [id number] Information: [id number] Neutrophils/100 WBC Auto (Bld) 41 % Normal 40-74 [facility] Work Phone: Comment on above: Please note refere nce interval change Platelets #/vol (Bld) 187 {x10E3/uL} Normal 155-379 [facility] Internal Medicine Work Phone: Comment on above: Please note refere nce interval change PATIENT WAS FASTINGP ERFORMED BY: [place] [id number] [facility] [id number] Information: [id number] Platelets (Bld) [#/Vol] 187 10*3/uL Normal 155-379 [facility] Internal Medicine Work Phone: Comment on above: Please note refere nce interval change PATIENT WAS FASTINGP ERFORMED BY: [address] [id number] Information: [id number] Platelets Auto #/vol (Bld) 187 {x10E3/uL} Normal 155-379 [facility] Internal Medicine Work Phone: Comment on above: Please note refere nce interval change RBC #/vol (Bld) 4.68 {x10E6/uL} Normal 3.77-5.28 [facility] Internal Medicine Work Phone: Comment on above: PATIENT WAS FASTINGP ERFORMED BY: [place] [id number] [facility] [id number] Information: [id number] RBC (Bld) [#/Vol] 4.68 10*6/uL Normal 3.77-5.28 [facility] Internal Medicine Work Phone: Comment on above: PATIENT WAS FASTINGP ERFORMED BY: [place] [id number] [facility] [id number] Information: [id number] RBC Auto #/vol (Bld) 4.68 {x10E6/uL} Normal 3.77-5.28 [facility] Internal Medicine Work Phone: WBC #/vol (Bld) 7.1 {x10E3/uL} Normal 3.4-10.8 [facility] Internal Medicine Work Phone: Comment on above: Please note refere nce interval change PATIENT WAS FASTINGP ERFORMED BY: ANGELI [facility] Yiuisn[address] [employer] WeekendNovant Health [id number] Information: [id number] WBC (Bld) [#/Vol] 7.1 10*3/uL Normal 3.4-10.8 [facility] Work Phone: Comment on above: Please note refere nce interval change PATIENT WAS FASTINGP ERFORMED BY: ANGELI [facility] Wbhakl5[address] [employer] WeekendNovant Health [id number] Information: [id number] WBC Auto #/vol (Bld) 7.1 {x10E3/uL} Normal 3.4-10.8 [facility] Work Phone: Comment on above: Please note refere nce interval change DDIMQOrdered By: Natalya merino on 08-07-2013 DDIMQ 0.46 {FEUug/mL} Normal 0.22-0.48 [facility] Internal Medicine Work Phone: Comment on above: NORMAL D-Dimer level indicates no DVT or PE. HgA1C , Office ([id number])Ordere d By: Melonie Lanza on 08-07-2013 Hemoglobin A1c/Hemoglobin.total mass fraction (Bld) 6.4 % Normal 4.6 - 7.1 Comprehensiv e Internal Medicine Work Phone: Lipid Panel ([id number])Ordered B y: Shopfitter on 08-07-2013 Cholesterol in HDL mass conc 56 mg/dL Normal [facility] Work Phone: Comment on above: According to ATP-III Guidelines, HDL-C >59 mg/dL is considered anegative risk factor for CHD. PATIENT WAS FASTINGP ERFORMED BY: [facility] Vinkbt2283 [facility] [id number] Cholesterol in LDL mass conc 206 mg/dL Abnormal 0-99 [facility] Work Phone: Comment on above: PATIENT WAS FASTINGP ERFORMED BY: ANGELI LabComauri Ueolxa0969 [address] RoadDublin [place] [id number] Cholesterol in LDL/Cholesterol in HDL mass ratio 3.7 {ratio_units} Abnormal 0.0-3.2 [facility] Work Phone: Comment on above: PATIENT WAS FASTINGP ERFORMED BY: ANGELI LabComauri Qkfkns8694 [address]hee RoadDublin [place] [id number] Cholesterol in VLDL mass conc 24 mg/dL Normal 5-40 [facility] Work Phone: Comment on above: PATIENT WAS FASTINGP ERFORMED BY: ANGELI LabComauri WeldonKefrll0593 [address] RoadDublin [place] [id number] Cholesterol mass conc 286 mg/dL Abnormal 100-199 Com prehensive Internal Medicine Work Phone: Comment on above: PATIENT WAS FASTINGP ERFORMED BY: ANGELI LabDajuan WeldonSpkxmg2982 Mc[address] Roadblin [place] [id number] Triglyceride mass conc 118 mg/dL Normal 0-149 [facility] Work Phone: Comment on above: PATIENT WAS FASTINGP ERFORMED BY: ANGELI LabDajuan WeldonQzveqp[address] [facility] [place] [id number] Metabolic Panel, Comprehensi ve ([id number])Ordered By: Shopfitter on 08-07-2013 Albumin mass conc 4.5 g/dL Normal 3.6-4.8 Compreh ensive Internal Medicine Work Phone: Comment on above: PATIENT WAS FASTINGP ERFORMED BY: ANGELI LabComauri Sfryxs5320 [address] RoadDublin [place] [id number] Albumin/Globulin mass ratio 1.5 {ratio} Normal 1.1-2.5 [facility] Work Phone: Comment on above: PATIENT WAS FASTINGP ERFORMED BY: ANGELI LabDajuan Zgxjtd3873 [address] RoadDublin [place] [id number] ALP [Catalytic activity/Vol] 79 U/L Normal 47-112 [facility] Work Phone: Comment on above: PATIENT WAS FASTINGP ERFORMED BY: ANGELI [facility] Xhcywo7887 [address] RoadDublin [place] [id number] ALP enzyme act/vol 79 [iU]/L Normal 47-112 [facility] Internal Medicine Work Phone: Comment on above: PATIENT WAS FASTINGP ERFORMED BY: ANGELI [facility] Azaqzm5721 [address] RoadDublin [place] [id number] ALT [Catalytic activity/Vol] 81 U/L Abnormal 0-32 [facility] Internal Medicine Work Phone: Comment on above: PATIENT WAS FASTINGP ERFORMED BY: ANGELI [facility] Mujkqg4963 [address] RoadDublin [place] [id number] ALT enzyme act/vol 81 [iU]/L Abnormal 0-32 [facility] Internal Medicine Work Phone: Comment on above: PATIENT WAS FASTINGP ERFORMED BY: ANGELI [facility] Feogok2802 [address] RoadDublin [place] [id number] AST [Catalytic activity/Vol] 65 U/L Abnormal 0-40 [facility] Internal Medicine Work Phone: Comment on above: PATIENT WAS FASTINGP ERFORMED BY: ANGELI [facility] Hrtiol3550 [address] RoadDublin [place] [id number] AST enzyme act/vol 65 [iU]/L Abnormal 0-40 [facility] Internal Medicine Work Phone: Comment on above: PATIENT WAS FASTINGP ERFORMED BY: ANGELI [facility] Ixduod7970 [address] RoadDublin [place] [id number] Bilirubin mass conc 0.3 mg/dL Normal 0.0-1.2 [facility] Internal Medicine Work Phone: Comment on above: PATIENT WAS FASTINGP ERFORMED BY: ANGELI [facility] Kzjyfe2174 [address] RoadDublin [place] [id number] Calcium mass conc 10.0 mg/dL Normal 8.6-10.2 [facility] Internal Medicine Work Phone: Comment on above: PATIENT WAS FASTINGP ERFORMED BY: ANGELI [facility] Uohjem5759 [address]Dublin [place] [id number] Chloride molar conc 105 mmol/L Normal 97-108 Compr ehensive Internal Medicine Work Phone: Comment on above: PATIENT WAS FASTINGP ERFORMED BY: ANGELI [facility] Mjargj[address] [facility]in [place] [id number] CO2 molar conc 24 mmol/L Normal 19-28 Comprehens michael Internal Medicine Work Phone: Comment on above: PATIENT WAS FASTINGP ERFORMED BY: ANGELI [facility] Jrxtib[address] [facility] [id number] Creatinine mass conc 0.68 mg/dL Normal 0.57-1.00 [facility] Work Phone: Comment on above: PATIENT WAS FASTINGP ERFORMED BY: ANGELI [facility] Eauigo[address] [facility] [id number] GFR/1.73 sq M predicted among blacks CKD-EPI vol rate/area (S/P/Bld) 104 mL/min/1.73 Normal Comprehe nsive Internal Medicine Work Phone: Comment on above: PATIENT WAS FASTINGP ERFORMED BY: ANGELI [facility] Ohomty[address] [facility] [id number] GFR/1.73 sq M predicted among non-blacks CKD-EPI vol rate/area (S/P/Bld) 90 mL/min/1.73 Normal [facility] Work Phone: Comment on above: PATIENT WAS FASTINGP ERFORMED BY: ANGELI [facility] Bqgkwp8541 [facility] [id number] Globulin Calculated mass conc (S) 3.0 g/dL Normal 1.5-4.5 [facility] Work Phone: Globulin mass conc (S) 3.0 g/dL Normal 1.5-4.5 [facility] Work Phone: Comment on above: PATIENT WAS FASTINGP ERFORMED BY: ANGELI [facility] Buqwvg[address] [facility]in [place] [id number] Glucose mass conc 82 mg/dL Normal 65-99 Compreh ensive Internal Medicine Work Phone: Comment on above: PATIENT WAS FASTINGP ERFORMED BY: ANGELI [facility] Yilant7102 [address] RoadDublin [place] [id number] Potassium molar conc 4.9 mmol/L Normal 3.5-5.2 Comp rehensive Internal Medicine Work Phone: Comment on above: PATIENT WAS FASTINGP ERFORMED BY: ANGELI [facility] Jfielh6910 [address] Roadblin [place] [id number] Protein mass conc 7.5 g/dL Normal 6.0-8.5 Compreh ensive Internal Medicine Work Phone: Comment on above: PATIENT WAS FASTINGP ERFORMED BY: ANGELI [facility] Xkmbao0737 [address] RoadDublin [place] [id number] Sodium molar conc 143 mmol/L Normal 134-144 Compreh ensive Internal Medicine Work Phone: Comment on above: PATIENT WAS FASTINGP ERFORMED BY: ANGELI [facility] Ldcxwi5606 Mc[address]hee RoadHighlands-Cashiers Hospitalin [place] [id number] Urea nitrogen mass conc 12 mg/dL Normal 8-27 C omprehensive Internal Medicine Work Phone: Comment on above: PATIENT WAS FASTINGP ERFORMED BY: ANGLEI [facility] Rqnllu4669 [address] RoadDublin [place] [id number] Urea nitrogen/Creatinine mass ratio 18 mg/mg Normal 11-26 [facility] Work Phone: Comment on above: PATIENT WAS FASTINGP ERFORMED BY: ANGELI [facility] Ujqeij[address] [facility]in [place] [id number] TSH ([id number])Ordered By: Eb Arauz on 08-07-2013 Thyrotropin Qn 6.980 {uIU/mL} Abnormal 0.450-4.50 0 [facility] Work Phone: Comment on above: PATIENT WAS FASTINGP ERFORMED BY: ANGELI [facility] Jtczoz4522 [address] RoadDublin [place] [id number] Urinalysis, Office ([id number])Or dered By: Federica Olivarez on 08-07-2013 Bilirubin [...] 12:51-0400 Body temperature 98.3 [degF] Karen Lewisam HORSE SHOER-C Work Phone: [facility] 05-31-2025 12:51-0400 Diastolic blood pressure 61 mm[Hg] Karen Lewisam HORSE SHOER-C Work Phone: [facility] 05-31-2025 12:51-0400 Heart rate 85 /min Karen Lewisam HORSE SHOER-C Work Phone: [facility] 05-31-2025 12:51-0400 Respiratory rate 16 /min Karen Lewisam HORSE SHOER-C Work Phone: [facility] 05-31-2025 12:51-0400 SaO2% (BldA) [Mass fraction] 97 % Karen Alcazar HORSE SHOER-C Work Phone: [facility] 05-31-2025 12:51-0400 Systolic blood pressure 149 mm[Hg] Karen Lewisam HORSE SHOER-C Work Phone: [facility] 05-31-2025 10:10-0400 Body height 152.4 cm Karen Lewisam HORSE SHOER-C Work Phone: [facility] 05-31-2025 10:10-0400 Body mass index (BMI) [Ratio] 32.8 kg/m2 Karen Ottoniel HORSE SHOER-C Work Phone: [facility] 05-31-2025 10:10-0400 Body weight 76.3 kg Karen Lewisam HORSE SH[employer]ER-C Work Phone: [facility] 07-20-2023 11:08-0400 Body height 149.86 cm Flavia [...] Diastolic blood pressure 80 mm[Hg] Latrice Slarb 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 [facility]; [facility] Work Phone: 01-19-2023 09:49-0500 Heart rate 77 /min Latrice Slarb 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 [facility]; [facility] Work Phone: 01-19-2023 09:49-0500 Respiratory rate 16 /min Latrice Slarb 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 [facility]; [facility] Work Phone: 01-19-2023 09:49-0500 SaO2% (BldA) [Mass fraction] 96 % Latrice Slarb 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 [facility]; [facility] Work Phone: 01-19-2023 09:49-0500 Systolic blood pressure 118 mm[Hg] Latrice Slarb 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 [facility]; [facility] Work Phone: 09-22-2022 08:57-0400 Body height 149.86 cm Latrice Slarb 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 [facility]; [facility] Work Phone: 09-22-2022 08:57-0400 Body mass index (BMI) [Ratio] 32.92 kg/m2 Latrice Slarb 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 [facility]; [facility] Work Phone: 09-22-2022 08:57-0400 Body surface area Derived from formula 1.69 m2 Latrice Slarb 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 [facility]; [facility] Work Phone: 09-22-2022 08:57-0400 Body temperature 96.4 [degF] Latrice Slarb 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 [facility]; [facility] Work Phone: 09-22-2022 08:57-0400 Body weight 73.94 kg Latrice Slarb 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 [facility]; [facility] Work Phone: 09-22-2022 08:57-0400 Diastolic blood pressure 78 mm[Hg] Latrice Slarb 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 [facility]; [facility] Work Phone: 09-22-2022 08:57-0400 Heart rate 74 /min Latrice Slarb 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 [facility]; [facility] Work Phone: 09-22-2022 08:57-0400 Respiratory rate 17 /min Latrice Levy LPN [facility]; [facility] Work Phone: 09-22-2022 08:57-0400 SaO2% (BldA) [Mass fraction] 97 % Latrice Levy 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 [facility]; [facility] Work Phone: 09-22-2022 08:57-0400 Systolic blood pressure 126 mm[Hg] Latrice Levy 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 [facility]; [facility] Work Phone: 08-12-2022 14:00-0400 Body height 149.86 cm Nellie Knox 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 [facility]; [facility] Work Phone: Comment on above: virtual, none reported 08-12-2022 14:00-0400 Body mass index (BMI) [Ratio] 33.02 kg/m2 Nellie Knox [facility]; [facility] Work Phone: Comment on above: virtual, none reported 08-12-2022 14:00-0400 Body surface area Derived from formula 1.69 m2 Nellie Knox 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 [facility]; [facility] Work Phone: Comment on above: virtual, none reported 08-12-2022 14:00-0400 Body weight 74.16 kg Nellie Knox 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 [facility]; [facility] Work Phone: Comment on above: virtual, none reported 07-07-2022 10:48-0400 Body height 149.86 cm Karen Alcazar MOLD CLAMPER Work Phone: [facility]; [facility] Work Phone: Comment on above: pt did not report 07-07-2022 10:48-0400 Body mass index (BMI) [Ratio] 33.02 kg/m2 Karen Alcazar MOLD CLAMPER Work Phone: [facility]; [facility] Work Phone: Comment on above: pt did not report 07-07-2022 10:48-0400 Body surface area Derived from formula 1.69 m2 Karen Alcazar MOLD CLAMPER Work Phone: [facility]; [facility] Work Phone: Comment on above: pt did not report 07-07-2022 10:48-0400 Body temperature 97.8 [degF] Karen Alcazar MOLD CLAMPER Work Phone: [facility]; [facility] Work Phone: Comment on above: pt did not report 07-07-2022 10:48-0400 Body weight 74.16 kg Karen Alcazar MOLD CLAMPER Work Phone: [facility]; [facility] [...] 13:31-0400 Body height 149.86 cm Federica Olivarez [facility]; [facility] Work Phone: 02-27-2022 13:31-0400 Body mass index (BMI) [Ratio] 33.63 kg/m2 Federica Olivarez [facility]; [facility] Work Phone: 02-27-2022 13:31-0400 Body surface area Derived from formula 1.71 m2 Federica Olivarez [facility]; [facility] Work Phone: 02-27-2022 13:31-0400 Body temperature 97 [degF] Federica Olivarez [facility]; [facility] Work Phone: Comment on above: Method: Thermal Scan 02-27-2022 13:31-0400 Body weight 75.52 kg Federica Olivarez [facility]; [facility] Work Phone: 02-27-2022 13:31-0400 Diastolic blood pressure 78 mm[Hg] Federica Olivarez [facility]; [facility] Work Phone: Comment on above: Patient Position: Sitting; Cuff Location : Left Arm; Cuff Size: Standard 02-27-2022 13:31-0400 Heart rate 77 /min Federica Olivarez [facility]; [facility] Work Phone: Comment on above: Pattern: Regular 02-27-2022 13:31-0400 Respiratory rate 16 /min Federica Olivarez [facility]; [facility] Work Phone: Comment on above: Pattern: Unlabored 02-27-2022 13:31-0400 SaO2% (BldA) [Mass fraction] 97 % Federica Olivarez [facility]; [facility] Work Phone: Comment on above: Room air 02-27-2022 13:31-0400 Systolic blood pressure 116 mm[Hg] Federica Olivarez [facility]; [facility] Work Phone: Comment on above: Patient Position: Sitting; Cuff Location : Left Arm; Cuff Size: Standard 11-18-2021 09:32-0500 Body height 149.86 cm Latrice Slaroya [place]; [facility] Work Phone: 11-18-2021 09:32-0500 Body mass index (BMI) [Ratio] 33.12 kg/m2 Latrice Cam [facility]; [facility] [...] Diastolic blood pressure 78 mm[Hg] Latrice Slarb 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 [facility]; [facility] Work [...] (Body Mass Index) 34.34 kg/m2 Federica Hallvimalbrenda [facility]; [facility] Work Phone: 02-24-2021 10:54-0400 Body Temperature 96.4 [degF] Federica Hallvimalbrenda [facility]; [facility] Work Phone: Comment on above: Method: Thermal Scan 02-24-2021 10:54-0400 Body weight 77.11 kg Federica Olivarez [facility]; [facility] Work Phone: 02-24-2021 10:54-0400 BP Diastolic 70 mm[Hg] Federica Olivarez [facility]; [facility] Work Phone: Comment on above: Patient Position: Sitting; Cuff Location : Left Arm; Cuff Size: Standard 02-24-2021 10:54-0400 BP Systolic 132 mm[Hg] Federica Olivarez [facility]; [facility] Work Phone: Comment on above: Patient Position: Sitting; Cuff Location : Left Arm; Cuff Size: Standard 02-24-2021 10:54-0400 BSA (Body Surface Area) 1.72 m2 Federica Olivarez [facility]; [facility] Work Phone: 02-24-2021 10:54-0400 Height 149.86 cm Federica Olivarez [facility]; [facility] Work Phone: 02-24-2021 10:54-0400 Pulse (Heart Rate) 78 /min Federica Olivarez [facility]; [facility] Work Phone: Comment on above: Pattern: Regular 02-24-2021 10:54-0400 Pulse Oximetry 98 % Marcia Walker [facility] Internal [facility]; [facility] Work Phone: Comment on above: Room air 02-24-2021 10:54-0400 Respiratory Rate 16 /min Federica Hallvimalbrenda [facility] Internal Medicine; [facility] Work Phone: Comment on above: Pattern: Unlabored 02-24-2021 10:54-0400 SaO2% (BldA) [Mass fraction] 98 % Federica Hallvimalbrenda [facility]; [facility] Work Phone: Comment on above: Room air 06-10-2020 07:57-0400 BMI (Body Mass Index) 34.34 kg/m2 Haseeb Brizuela LPN [facility] Internal Medicine Work Phone: 06-10-2020 07:57-0400 Body Temperature 97.1 [degF] Haseeb Brizuela LPN [facility] Internal Medicine Work Phone: Comment on above: Method: Infrared 06-10-2020 07:57-0400 Body weight 77.11 kg Haseeb Brizuela LPN [facility] Internal Medicine Work Phone: 06-10-2020 07:57-0400 BP Diastolic 76 mm[Hg] Haseeb Brizuela LPN [facility] Internal Medicine Work Phone: Comment on above: Patient Position: Sitting; Cuff Location : Left Arm; Cuff Size: Standard 06-10-2020 07:57-0400 BP Systolic 120 mm[Hg] Haseeb Brizuela LPN [facility] Internal Medicine Work Phone: Comment on above: Patient Position: Sitting; Cuff Location : Left Arm; Cuff Size: Standard 06-10-2020 07:57-0400 BSA (Body Surface Area) 1.72 m2 Haseeb Brizuela LPN [facility] Internal Medicine Work Phone: 06-10-2020 07:57-0400 Height 149.86 cm Haseeb Brizuela LPN [facility] Internal Medicine Work Phone: 06-10-2020 07:57-0400 Pulse (Heart Rate) 74 /min Haseeb Brizuela LPN Comprehensiv e Internal Medicine Work Phone: Comment on above: Pattern: Regular 06-10-2020 07:57-0400 Pulse Oximetry 95 % Marcia Aaron [facility] Internal Medicine Work Phone: Comment on above: Room air 06-10-2020 07:57-0400 Respiratory Rate 16 /min Haseeb Brizuela LPN [facility] Internal Medicine Work Phone: Comment on above: Pattern: Unlabored 06-10-2020 07:57-0400 SaO2% (BldA) [Mass fraction] 95 % Haseeb Brizuela LPN [facility] Internal Medicine Work Phone: Comment on above: Room air 02-23-2020 06:45-0400 BMI (Body Mass Index) 34.84 kg/m2 Haseeb Brizuela LPN Comprehen s[facility] Internal Medicine Work Phone: 02-23-2020 06:45-0400 Body weight 78.25 kg Haseeb Brizuela LPN [facility] Internal Medicine Work Phone: 02-23-2020 06:45-0400 BSA (Body Surface Area) 1.73 m2 Haseeb Brizuela LPN [facility] Internal Medicine Work Phone: 02-23-2020 06:45-0400 Height 149.86 cm Haseeb Brizuela LPN [facility] Internal Medicine Work Phone: 02-21-2020 12:14-0400 BMI (Body Mass Index) 34.84 kg/m2 Marcia Walker [employer] Work Phone: [facility] Work Phone: Comment on above: will report temp when [facility] calls 02-21-2020 12:14-0400 Body Temperature 98 [degF] Marcia Walker [employer] Work Phone: [facility] Work Phone: Comment on above: will report temp when [facility] calls 02-21-2020 12:14-0400 Body weight 78.25 kg Marcia Walker [employer] Work Phone: [facility] Work Phone: Comment on above: will report temp when [facility] calls 02-21-2020 12:14-0400 BP Diastolic 61 mm[Hg] Marcia Meiera [employer] Work Phone: [facility] Work Phone: Comment on above: Patient Position: Supine; Cuff Location: Right Arm; Cuff Size: Standard will report temp whe n [facility] calls 02-21-2020 12:14-0400 BP Systolic 124 mm[Hg] Marcia Meiera [employer]PER Work Phone: [facility] Work Phone: Comment on above: Patient Position: Supine; Cuff Location: Right Arm; Cuff Size: Standard will report temp whe n [facility] calls 02-21-2020 12:14-0400 BSA (Body Surface Area) 1.73 m2 Marcia Meiera [employer]PER Work Phone: [facility] Work Phone: Comment on above: will report temp when [facility] calls 02-21-2020 12:14-0400 Height 149.86 cm Marcia Meiera [employer]PER Work Phone: [facility] Work Phone: Comment on above: will report temp when [facility] calls 02-21-2020 12:14-0400 Pulse (Heart Rate) 75 /min Marcia Meiera [employer] Work Phone: [facility] Work Phone: Comment on above: Pattern: Regular will report temp whe n [facility] calls 02-16-2020 07:40-0400 BMI (Body Mass Index) 34.84 kg/m2 Haseeb Brizuela LPN [facility] Internal Medicine Work Phone: 02-16-2020 07:40-0400 Body [...] Body Temperature 97.1 [degF] Nellie Knox LPN [facility] Internal Medicine Work Phone: Comment on above: Method: Temporal 11-06-2019 09:46-0500 Body weight 78.25 kg Nellie Knox LPN [facility] Internal Medicine Work Phone: 11-06-2019 09:46-0500 BP Diastolic 78 mm[Hg] Nellie Knox LPN [facility] Internal Medicine Work Phone: Comment on above: Patient Position: Sitting; Cuff Location : Left Arm; Cuff Size: Standard 11-06-2019 09:46-0500 BP Systolic 120 mm[Hg] Nellie Knox LPN [facility] Internal Medicine Work Phone: Comment on above: Patient Position: Sitting; Cuff Location : Left Arm; Cuff Size: Standard 11-06-2019 09:46-0500 BSA (Body Surface Area) 1.73 m2 Nellie Knox LPN [facility] Work Phone: 11-06-2019 09:46-0500 Height 149.86 cm Nellie Knox LPN [facility] Internal Medicine Work Phone: 11-06-2019 09:46-0500 Pulse (Heart Rate) 88 /min Nellie Knox LPN Comprehensi Internal Medicine Work Phone: Comment on above: Pattern: Regular 11-06-2019 09:46-0500 Pulse Oximetry 93 % Marcia Walker [facility] Internal Medicine Work Phone: Comment on above: Room air 11-06-2019 09:46-0500 Respiratory Rate 16 /min Nellie Knox LPN [facility] Internal Medicine Work Phone: Comment on above: Pattern: Unlabored 11-06-2019 09:46-0500 SaO2% (BldA) [Mass fraction] 93 % Nellie Knox LPN [facility] Internal Medicine Work Phone: Comment on above: Room air 11-06-2019 08:21-0500 BMI (Body Mass Index) 33.94 kg/m2 Haseeb Brizuela SLOANE [facility]pre[facility] Internal Medicine Work Phone: 11-06-2019 08:21-0500 Body weight 76.22 kg Haseeb Brizuela SLOANE [facility] Work Phone: 11-06-2019 08:21-0500 BSA (Body Surface Area) 1.71 m2 Haseeb Brizuela SLOANE [facility] Internal Medicine Work Phone: 11-06-2019 08:21-0500 Height 149.86 cm Haseeb Gelacio ANTON [facility] Work Phone: 08-28-2019 15:07-0400 BMI (Body Mass Index) 33.94 kg/m2 Haseeb Brizuela SLOANE [facility] Internal Medicine Work Phone: 08-28-2019 15:07-0400 Body Temperature 97.9 [degF] Haseeb Brizuela SLOANE [facility] Internal Medicine Work Phone: Comment on above: Method: Temporal 08-28-2019 15:07-0400 Body weight 76.22 kg Haseeb Brizuela S[facility]ANE [facility] Work Phone: 08-28-2019 15:07-0400 BP Diastolic 78 mm[Hg] Haseeb Gelacio ANTON [facility] Internal Medicine Work Phone: Comment on above: Patient Position: Sitting; Cuff Location : Left Arm; Cuff Size: Standard 08-28-2019 15:07-0400 BP Systolic 140 mm[Hg] Haseeb Brizuela SLOANE [facility] Internal Medicine Work Phone: Comment on above: Patient Position: Sitting; Cuff Location : Left Arm; Cuff Size: Standard 08-28-2019 15:07-0400 BSA (Body Surface Area) 1.71 m2 Haseeb Brizuela SLOANE [facility] Internal Medicine Work Phone: 08-28-2019 15:07-0400 Height 149.86 cm Haseeb Gelacio ANTON [facility] Internal Medicine Work Phone: 08-28-2019 15:07-0400 Pulse (Heart Rate) 100 /min Haseeb Brizuela SLOANE Comprehens[facility] e Internal Medicine Work Phone: Comment on above: Pattern: Regular 08-28-2019 15:07-0400 Pulse Oximetry 96 % Marcia Walker [facility] Internal Medicine Work Phone: Comment on above: Room air 08-28-2019 15:07-0400 Respiratory Rate 16 /min Haseeb Brizuela LPN [facility] Internal Medicine Work Phone: Comment on above: Pattern: Unlabored 08-28-2019 15:07-0400 SaO2% (BldA) [Mass fraction] 96 % Haseeb Brizuela LPN [facility] Internal Medicine Work Phone: Comment on above: Room air 04-03-2019 10:51-0400 BMI (Body Mass Index) 35.35 kg/m2 Haseeb Brizuela LPN [facility]pre[facility] Internal Medicine Work Phone: 04-03-2019 10:51-0400 Body Temperature 98 [degF] Haseeb Brizuela LPN [facility] Internal Medicine Work Phone: Comment on above: Method: Temporal 04-03-2019 10:51-0400 Body weight 79.38 kg Haseeb Brizuela LPN [facility] Internal Medicine Work Phone: 04-03-2019 10:51-0400 BP Diastolic 68 mm[Hg] Haseeb Brizuela LPN [facility] Internal Medicine Work Phone: Comment on above: Patient Position: Sitting; Cuff Location : Left Arm; Cuff Size: Standard 04-03-2019 10:51-0400 BP Systolic 118 mm[Hg] Haseeb Brizuela LPN [facility] Internal Medicine Work Phone: Comment on above: Patient Position: Sitting; Cuff Location : Left Arm; Cuff Size: Standard 04-03-2019 10:51-0400 BSA (Body Surface Area) 1.74 m2 Haseeb Brizuela LPN [facility] Internal Medicine Work Phone: 04-03-2019 10:51-0400 Height 149.86 cm Haseeb Brizuela LPN [facility] Internal Medicine Work Phone: 04-03-2019 10:51-0400 Pulse (Heart Rate) 110 /min Haseeb Brizuela LPN Comprehensiv e Internal Medicine Work Phone: Comment on above: Pattern: Regular 04-03-2019 10:51-0400 Pulse Oximetry 98 % Marcia Dominiquemeryltarsha [facility] Internal Medicine Work Phone: Comment on [...] Body Temperature 97 [degF] Haseeb Brizuela LPN [facility] Internal Medicine Work Phone: Comment on above: Method: Temporal 03-13-2019 08:08-0400 Body weight 79.38 kg Haseeb Brizuela LPN [facility] Work Phone: 03-13-2019 08:08-0400 BP Diastolic 78 mm[Hg] Haseeb Brizuela LPN [facility] Internal Medicine Work Phone: Comment on above: Patient Position: Sitting; Cuff Location : Left Arm; Cuff Size: Standard 03-13-2019 08:08-0400 BP Systolic 144 mm[Hg] Haseeb Brizuela LPN [facility] Internal Medicine Work Phone: Comment on above: Patient Position: Sitting; Cuff Location : Left Arm; Cuff Size: Standard 03-13-2019 08:08-0400 BSA (Body Surface Area) 1.74 m2 Haseeb Brizuela LPN [facility] Internal Medicine Work Phone: 03-13-2019 08:08-0400 Height 149.86 cm Haseeb Brizuela LPN [facility] Internal Medicine Work Phone: 03-13-2019 08:08-0400 Pulse (Heart Rate) 88 /min Haseeb Brizuela LPN [facility]prehens[facility] e Internal Medicine Work Phone: Comment on above: Pattern: Regular 03-13-2019 08:08-0400 Pulse Oximetry 95 % Marcia Walker [facility] Internal Medicine Work Phone: Comment on above: Room air 03-13-2019 08:08-0400 Respiratory Rate 18 /min Haseeb Brizuela LPN [facility] Internal Medicine Work Phone: Comment on above: Pattern: Unlabored 03-13-2019 08:08-0400 SaO2% (BldA) [Mass fraction] 95 % Haseeb Brizuela LPN [facility] Internal Medicine Work Phone: Comment on above: Room air 03-13-2019 08:08-0400 Weight 79.15 kg Marcia Walker [facility] Internal Medicine Work Phone: 03-13-2019 08:08-0400 Weight 79.38 kg Marcia Walker [facility] Medicine Work Phone: 01-19-2019 10:30-0500 BMI (Body Mass Index) 35.24 kg/m2 [facility] Work Phone: 01-19-2019 10:30-0500 Body Temperature 97.2 [degF] [facility] Work Phone: Comment on above: Method: Temporal 01-19-2019 10:30-0500 Body weight 79.15 kg Federica Olivarez [facility] Internal Medicine Work Phone: 01-19-2019 10:30-0500 BP Diastolic 78 mm[Hg] [facility] Work Phone: Comment on above: Patient Position: Sitting; Cuff Location : Left Arm; Cuff Size: Standard 01-19-2019 10:30-0500 BP Systolic 130 mm[Hg] [facility] Work Phone: Comment on above: Patient Position: Sitting; Cuff Location : Left Arm; Cuff Size: Standard 01-19-2019 10:30-0500 BSA (Body Surface Area) 1.74 m2 [facility] Work Phone: 01-19-2019 10:30-0500 Height 149.86 cm [facility] Internal Medicine Work Phone: 01-19-2019 10:30-0500 Pulse (Heart Rate) 75 /min Federica Olivarez [facility] Internal Medicine Work Phone: Comment on above: Pattern: Regular 01-19-2019 10:30-0500 Pulse Oximetry 97 % Marcia Walker [facility] Internal Medicine Work Phone: Comment on above: Room air 01-19-2019 10:30-0500 Respiratory Rate 16 /min Federica Olivarez [facility] Internal Medicine Work Phone: Comment on above: Pattern: Unlabored 01-19-2019 10:30-0500 SaO2% (BldA) [Mass fraction] 97 % Federica Olivarez [facility] Internal Medicine Work Phone: Comment on above: Room air 01-19-2019 10:30-0500 Weight 79.15 kg Marcia Walker [facility] Internal Medicine Work Phone: 10-05-2018 10:09-0500 BMI (Body Mass Index) 35.85 kg/m2 Myra Fowler [facility] Internal Medicine Work Phone: 10-05-2018 10:09-0500 Body Temperature 97.6 [degF] Myra Fowler [facility] Internal Medicine Work Phone: Comment on above: Method: Temporal 10-05-2018 10:09-0500 Body weight 80.51 kg Myra Fowler [facility] Internal Medicine Work Phone: 10-05-2018 10:09-0500 BP Diastolic 70 mm[Hg] [facility] Work Phone: Comment on above: Patient Position: Sitting; Cuff Location : Left Arm; Cuff Size: Standard 10-05-2018 10:09-0500 BP Systolic 118 mm[Hg] Myra Fowler [facility] Internal Medicine Work Phone: Comment on above: Patient Position: Sitting; Cuff Location : Left Arm; Cuff Size: Standard 10-05-2018 10:09-0500 BSA (Body Surface Area) 1.75 m2 Myra Fowler [facility] Internal Medicine Work Phone: 10-05-2018 10:09-0500 Height 149.86 cm Myra Fowler [facility] Internal Medicine Work Phone: 10-05-2018 10:09-0500 Pulse (Heart Rate) 84 /min Myra Fowler [facility] Internal Medicine Work Phone: Comment on above: Pattern: Regular 10-05-2018 10:09-0500 Pulse Oximetry 96 % Marcia Walker [facility] Internal Medicine Work Phone: Comment on above: Room air 10-05-2018 10:09-0500 Respiratory Rate 16 /min Myra Fowler [facility] Internal Medicine Work Phone: Comment on above: Pattern: Unlabored 10-05-2018 10:09-0500 SaO2% (BldA) [Mass fraction] 96 % Myra Fowler [facility] Internal Medicine Work Phone: Comment on above: Room air 10-05-2018 10:09-0500 Weight 80.51 kg Marcia Walker [facility] Internal Medicine Work Phone: 09-16-2018 10:33-0400 BMI (Body Mass Index) 35.75 kg/m2 Myra Fowler [facility] michael Internal Medicine Work Phone: 09-16-2018 10:33-0400 Body weight 80.29 kg Myra Fowler [facility] Internal Medicine Work Phone: 09-16-2018 10:33-0400 BSA (Body Surface Area) 1.75 m2 Myra Fowler [facility] Internal Medicine Work Phone: 09-16-2018 10:33-0400 Height 149.86 cm Myra Fowler [facility] Internal Medicine Work Phone: 09-16-2018 10:33-0400 Weight 80.29 kg Marcia Walker [facility] Internal Medicine Work Phone: 06-27-2018 09:57-0400 BMI (Body Mass Index) 35.75 kg/m2 [facility]acho [facility] Internal Medicine Work Phone: 06-27-2018 09:57-0400 [...] Mass Index) 35.77 kg/m2 Haseeb Brizuela LPN [facility] Internal Medicine Work Phone: 06-14-2018 08:29-0400 Body [...] BP Systolic 132 mm[Hg] Haseeb Brizuela LPN [facility] Internal Medicine Work Phone: Comment on above: Patient Position: Sitting; Cuff Location : Left Arm; Cuff Size: Standard 06-14-2018 08:29-0400 BSA (Body Surface Area) 1.75 m2 Haseeb Brizuela LPN [facility] Internal Medicine Work Phone: 06-14-2018 08:29-0400 Height 149.86 cm Haseeb Brizuela LPN [facility] Internal Medicine Work Phone: 06-14-2018 08:29-0400 Pulse (Heart Rate) 88 /min Haseeb Brizuela LPN Comprehens[facility] e Internal Medicine Work Phone: Comment on above: Pattern: Regular 06-14-2018 08:29-0400 Pulse Oximetry 95 % [facility] Work Phone: Comment on above: Room air 06-14-2018 08:29-0400 Respiratory Rate 16 /min Haseeb Brizuela LPN [facility] Internal Medicine Work Phone: Comment on above: Pattern: Unlabored 06-14-2018 08:29-0400 SaO2% (BldA) [Mass fraction] 95 % Haseeb Brizuela [facility] Internal Medicine Work Phone: Comment on above: Room air 06-14-2018 08:29-0400 Weight 80.34 kg Marcia Walker [facility] Internal Medicine Work Phone: 03-15-2018 10:58-0400 [...] BP Systolic 124 mm[Hg] Heidy Camacho RN [facility] Internal Medicine Work Phone: Comment on above: Patient Position: Sitting; Cuff Location : Left Arm; Cuff Size: Standard 03-15-2018 10:58-0400 BSA (Body Surface Area) 1.76 m2 Heidy Camacho RN [facility] Work Phone: 03-15-2018 10:58-0400 Height 149.86 cm Heidy Camacho RN [facility] Work Phone: 03-15-2018 10:58-0400 Pulse (Heart Rate) 65 /min Heidy Camacho RN [facility] Internal Medicine Work Phone: Comment on above: Pattern: Regular 03-15-2018 10:58-0400 Pulse Oximetry 95 % Marcia Meiertarsha [facility] Internal Medicine Work Phone: Comment on above: Room air 03-15-2018 10:58-0400 Respiratory Rate 16 /min Heidy Camacho RN [facility] Work Phone: Comment on above: Pattern: Unlabored 03-15-2018 10:58-0400 SaO2% (BldA) [Mass fraction] 95 % Heidy Camacho RN [facility] Work Phone: Comment on above: Room air 03-15-2018 10:58-0400 Weight 80.74 kg Marcia Walker [facility] Internal Medicine Work Phone: 12-06-2017 11:12-0500 BMI (Body Mass Index) 35.75 kg/m2 Latrice Eleanorrb 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 [facility] Internal Medicine Work Phone: 12-06-2017 11:12-0500 Body Temperature 97.7 [degF] Latrice Levy LPN [facility] Internal Medicine Work Phone: 12-06-2017 11:12-0500 Body weight 80.29 kg Latrice Levy LPN [facility] Internal Medicine Work Phone: 12-06-2017 11:12-0500 BP Diastolic 80 mm[Hg] Latrice Eleanorrb SLOANE [facility] Internal Medicine Work Phone: Comment on [...] 11:12-0500 Pulse Oximetry 97 % Marcia Walker [facility] Internal Medicine Work Phone: Comment on above: Room air 12-06-2017 11:12-0500 Respiratory Rate 17 /min Latrice Levy LPN [facility] Work Phone: Comment on above: Pattern: Unlabored 12-06-2017 11:12-0500 SaO2% (BldA) [Mass fraction] 97 % Latrice Levy LPN [facility] Work Phone: Comment on above: Room air 12-06-2017 11:12-0500 Weight 80.29 kg Marcia Walker [facility] Internal Medicine Work Phone: 11-30-2017 09:30-0500 [...] 09:30-0500 Pulse Oximetry 95 % Marcia Walker [facility] Internal Medicine Work Phone: Comment on above: Room air 11-30-2017 09:30-0500 Respiratory Rate 18 /min Veronique Childers RN [facility] Work Phone: Comment on above: Pattern: Unlabored 11-30-2017 09:30-0500 SaO2% (BldA) [Mass fraction] 95 % Veronique Childers RN [facility] Work Phone: Comment on above: Room air 11-30-2017 09:30-0500 Weight 78.47 kg Marcia Walker [facility] Internal Medicine Work Phone: 08-10-2017 14:52-0400 BMI (Body Mass Index) 34.94 kg/m2 Latrice Levy LPN [facility] Internal Medicine Work Phone: 08-10-2017 14:52-0400 Body Temperature 97.3 [degF] Latrice Levy LPN [facility] Internal Medicine Work Phone: 08-10-2017 14:52-0400 Body weight 78.47 kg Latrice Levy LPN [facility] Internal Medicine Work Phone: 08-10-2017 14:52-0400 BP Diastolic 82 mm[Hg] Latrice Slarb 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 [facility] Work Phone: Comment on above: Patient Position: Sitting; Cuff Location : Left Arm; Cuff Size: Standard 08-10-2017 14:52-0400 BP Systolic 142 mm[Hg] Latrice Eleanorrb 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 [facility] Work Phone: Comment on above: Patient Position: Sitting; Cuff Location : Left Arm; Cuff Size: Standard 08-10-2017 14:52-0400 BSA (Body Surface Area) 1.73 m2 Latrice Eleanorrb 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 [facility] Work Phone: 08-10-2017 14:52-0400 Height 149.86 cm Latrice Eleanorrb 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 [facility] Internal Medicine Work Phone: 08-10-2017 14:52-0400 Pulse (Heart Rate) 99 /min Latrice Levy 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 Comprehensiv e Internal Medicine Work Phone: Comment on above: Pattern: Regular 08-10-2017 14:52-0400 Pulse Oximetry 94 % Marcia Walker [facility] Internal Medicine Work Phone: Comment on above: Room air 08-10-2017 14:52-0400 Respiratory Rate 17 /min Latrice Levy 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 [facility] Internal Medicine Work Phone: Comment on above: Pattern: Unlabored 08-10-2017 14:52-0400 SaO2% (BldA) [Mass fraction] 94 % Latrice Eleanorrb 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 [facility] Internal Medicine Work Phone: Comment on above: Room air 08-10-2017 14:52-0400 Weight 78.47 kg Marcia Walker [facility] Internal Medicine Work Phone: 05-07-2017 11:00-0400 BMI (Body Mass Index) 33.93 kg/m2 Federica Olivarez [facility] Internal Medicine Work Phone: 05-07-2017 11:00-0400 Body weight 76.2 kg Federica Olivarez [facility] Internal Medicine Work Phone: 05-07-2017 11:00-0400 BP Diastolic 68 mm[Hg] Federica Olivarez [facility] Internal Medicine Work Phone: Comment on above: Patient Position: Sitting; Cuff Location : Left Arm; Cuff Size: Standard 05-07-2017 11:00-0400 BP Systolic 122 mm[Hg] Federica Olivarez [facility] Internal Medicine Work Phone: Comment on above: Patient Position: Sitting; Cuff Location : Left Arm; Cuff Size: Standard 05-07-2017 11:00-0400 BSA (Body Surface Area) 1.71 m2 Federica Olivarez [facility] Internal Medicine Work Phone: 05-07-2017 11:00-0400 Height 149.86 cm Federica Olivarez [facility] Internal Medicine Work Phone: 05-07-2017 11:00-0400 Pulse (Heart Rate) 103 /min Federica Olivarez [facility] Internal Medicine Work Phone: Comment on above: Pattern: Regular 05-07-2017 11:00-0400 Pulse Oximetry 98 % Marcia Walker [facility] Internal Medicine Work Phone: Comment on above: Room air 05-07-2017 11:00-0400 Respiratory Rate 16 /min Federica Olivarez [facility] Internal Medicine Work Phone: Comment on above: Pattern: Unlabored 05-07-2017 11:00-0400 SaO2% (BldA) [Mass fraction] 98 % Federica Olivarez [facility] Internal Medicine Work Phone: Comment on above: Room air 05-07-2017 11:00-0400 Weight 76.2 kg Marcia Walker [facility] Internal Medicine Work Phone: 02-09-2017 13:52-0400 BMI (Body Mass Index) 33.93 kg/m2 Latrice Levy LPN [facility] Internal Medicine Work Phone: 02-09-2017 13:52-0400 Body Temperature 97.1 [degF] Latrice Levy LPN [facility] Internal Medicine Work Phone: 02-09-2017 13:52-0400 Body weight 76.2 kg Latrice Levy LPN [facility] Work Phone: 02-09-2017 13:52-0400 BP Diastolic 76 mm[Hg] Latrice Eleanorrb 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 [facility] Work Phone: Comment on above: Patient Position: Sitting; Cuff Location : Left Arm; Cuff Size: Standard 02-09-2017 13:52-0400 BP Systolic 118 mm[Hg] Latrice Websterrb 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 [facility] Work Phone: Comment on above: Patient Position: Sitting; Cuff Location : Left Arm; Cuff Size: Standard 02-09-2017 13:52-0400 BSA (Body Surface Area) 1.71 m2 Latrice Websterrb 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 [facility] Work Phone: 02-09-2017 13:52-0400 Height 149.86 cm Latrice Websterrb 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 [facility] Work Phone: 02-09-2017 13:52-0400 Pulse (Heart Rate) 90 /min Latrice Websterrb 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 Comprehensiv e Internal Medicine Work Phone: Comment on above: Pattern: Regular 02-09-2017 13:52-0400 Pulse Oximetry 96 % Marcia Walker [facility] Internal Medicine Work Phone: Comment on above: Room air 02-09-2017 13:52-0400 Respiratory Rate 16 /min Latrice Websterrb 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 [facility] Work Phone: Comment on above: Pattern: Unlabored 02-09-2017 13:52-0400 SaO2% (BldA) [Mass fraction] 96 % Latrice Websterrb 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 [facility] Work Phone: Comment on above: Room air 02-09-2017 13:52-0400 Weight 76.2 kg Marcia Walker [facility] Internal Medicine Work Phone: 12-09-2016 11:01-0500 BMI (Body Mass Index) 35.35 kg/m2 Latrice Eleanorrb 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 Comprehen sive Internal Medicine Work Phone: 12-09-2016 11:01-0500 Body Temperature 97.8 [degF] Latrice Eleanorrb 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 [facility] Internal Medicine Work Phone: 12-09-2016 11:01-0500 Body weight 79.38 kg Latrice Websterrb 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 [facility] Work Phone: 12-09-2016 11:01-0500 BP Diastolic 82 mm[Hg] Latrice Eleanorrb 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 [facility] Work Phone: Comment on above: Patient Position: Sitting; Cuff Location : Left Arm; Cuff Size: Standard 12-09-2016 11:01-0500 BP Systolic 124 mm[Hg] Latrice Eleanorrb 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 [facility] Work Phone: Comment on above: Patient Position: Sitting; Cuff Location : Left Arm; Cuff Size: Standard 12-09-2016 11:01-0500 BSA (Body Surface Area) 1.74 m2 Latrice Eleanorrb 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 [facility] Work Phone: 12-09-2016 11:01-0500 Height 149.86 cm Latrice Eleanorrb 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 [facility] Work Phone: 12-09-2016 11:01-0500 Pulse (Heart Rate) 102 /min Latrice Eleanorrb 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 Comprehensiv e Internal Medicine Work Phone: Comment on above: Pattern: Regular 12-09-2016 11:01-0500 Pulse Oximetry 98 % Marcia Walker [facility] Internal Medicine Work Phone: Comment on above: Room air 12-09-2016 11:01-0500 Respiratory Rate 16 /min Latrice Eleanorrb 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 [facility] Work Phone: Comment on above: Pattern: Unlabored 12-09-2016 11:01-0500 SaO2% (BldA) [Mass fraction] 98 % Latrice Slarb 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 [facility] Work Phone: Comment on above: Room air 12-09-2016 11:01-0500 Weight 79.38 kg Marcia Walker [facility] Internal Medicine Work Phone: 10-13-2016 15:03-0500 BMI (Body Mass Index) 36.56 kg/m2 Latrice Slarb 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 Comprehen sive Internal Medicine Work Phone: 10-13-2016 15:03-0500 Body Temperature 97.6 [degF] Latrice Levy 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 [facility] Work Phone: 10-13-2016 15:03-0500 Body weight 82.1 kg Latrice Levy 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 [facility] Work Phone: 10-13-2016 15:03-0500 BP Diastolic 82 mm[Hg] Latrice Eleanorrb 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 [facility] Work Phone: Comment on above: Patient Position: Sitting; Cuff Location : Left Arm; Cuff Size: Standard 10-13-2016 15:03-0500 BP Systolic 124 mm[Hg] Latrice Websterrb 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 [facility] Work Phone: Comment on above: Patient Position: Sitting; Cuff Location : Left Arm; Cuff Size: Standard 10-13-2016 15:03-0500 BSA (Body Surface Area) 1.77 m2 Latrice Websterrb 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 [facility] Work Phone: 10-13-2016 15:03-0500 Height 149.86 cm Latrice Levy 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 [facility] Work Phone: 10-13-2016 15:03-0500 Pulse (Heart Rate) 90 /min Latrice Levy LPN [facility] Work Phone: Comment on above: Pattern: Regular 10-13-2016 15:03-0500 Pulse Oximetry 95 % Marcia Walker [facility] Work Phone: Comment on above: Room air 10-13-2016 15:03-0500 Respiratory Rate 16 /min Latrcie Levy LPN [facility] Work Phone: Comment on above: Pattern: Unlabored 10-13-2016 15:03-0500 SaO2% (BldA) [Mass fraction] 95 % Latrice Levy 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 [facility] Work Phone: Comment on above: Room air 10-13-2016 15:03-0500 Weight 82.1 kg Marcia Walker [facility] Work Phone: 09-30-2016 11:20-0400 BMI (Body Mass Index) 36.56 kg/m2 Latrice Slarb 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 Comprehen sive Internal Medicine Work Phone: 09-30-2016 11:20-0400 Body Temperature 98.2 [degF] Latrice Eleanorrb 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 [facility] Work Phone: 09-30-2016 11:20-0400 Body weight 82.1 kg Latrice Websterrb 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 [facility] Work Phone: 09-30-2016 11:20-0400 BP Diastolic 80 mm[Hg] Latrice Slarb 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 [facility] Work Phone: Comment on above: Patient Position: Sitting; Cuff Location : Left Arm; Cuff Size: Standard 09-30-2016 11:20-0400 BP Systolic 124 mm[Hg] Latrice Eleanorrb 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 [facility] Work Phone: Comment on above: Patient Position: Sitting; Cuff Location : Left Arm; Cuff Size: Standard 09-30-2016 11:20-0400 BSA (Body Surface Area) 1.77 m2 Latrice Slarb 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 [facility] Work Phone: 09-30-2016 11:20-0400 Height 149.86 cm Latrice Websterrb 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 [facility] Work Phone: 09-30-2016 11:20-0400 Pulse (Heart Rate) 72 /min Latrice Eleanorrb 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 Comprehensiv e Internal Medicine Work Phone: Comment on above: Pattern: Regular 09-30-2016 11:20-0400 Pulse Oximetry 96 % Marcia Walker [facility] Work Phone: Comment on above: Room air 09-30-2016 11:20-0400 Respiratory Rate 17 /min Latrice Levy 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 [facility] Work Phone: Comment on above: Pattern: Unlabored 09-30-2016 11:20-0400 SaO2% (BldA) [Mass fraction] 96 % Latrice Slarb 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 [facility] Work Phone: Comment on above: Room air 09-30-2016 11:20-0400 Weight 82.1 kg Marcia Walker [facility] Internal Medicine Work Phone: 08-28-2013 14:44-0400 BMI (Body Mass Index) 38.4 kg/m2 Melonie Lanza LPN [facility] Internal Medicine Work Phone: 08-28-2013 14:44-0400 Body Temperature 98 [degF] Melonie Lanza LPN [facility] Internal Medicine Work Phone: Comment on above: Method: Oral 08-28-2013 14:44-0400 Body weight 86.24 kg Melonie Lanza LPN [facility] Internal Medicine Work Phone: 08-28-2013 14:44-0400 BP Diastolic 86 mm[Hg] Melonie Lanza LPN [facility] Internal Medicine Work Phone: Comment on above: Patient Position: Sitting; Cuff Location : Left Arm; Cuff Size: Standard 08-28-2013 14:44-0400 BP Systolic 144 mm[Hg] Melonie Lanza LPN [facility] Internal Medicine Work Phone: Comment on above: Patient Position: Sitting; Cuff Location : Left Arm; Cuff Size: Standard 08-28-2013 14:44-0400 BSA (Body Surface Area) 1.8 m2 Melonie Lanza LPN [facility] Internal Medicine Work Phone: 08-28-2013 14:44-0400 Height 149.86 cm Melonie Lanza LPN [facility] Internal Medicine Work Phone: 08-28-2013 14:44-0400 Pulse (Heart Rate) 90 /min Melonie Lanza LPN [facility] Internal Medicine Work Phone: Comment on above: Pattern: Regular 08-28-2013 14:44-0400 Respiratory Rate 16 /min Melonie Lanza LPN [facility] Internal Medicine Work Phone: 08-28-2013 14:44-0400 Weight 86.24 kg Marcia Walker [facility] Internal Medicine Work Phone: 08-15-2013 11:28-0400 BMI (Body Mass Index) 38.4 kg/m2 Melonie Lanza LPN [facility] Work Phone: 08-15-2013 11:28-0400 Body Temperature 98.8 [degF] Melonie Lanza LPN [facility] Internal Medicine Work Phone: Comment on [...] (Heart Rate) 82 /min Melonie Lanza LPN [facility] Internal Medicine Work Phone: Comment on above: Pattern: Regular 08-15-2013 11:28-0400 Pulse Oximetry 96 % Marcia Walker [facility] Internal Medicine Work Phone: Comment on above: Room air 08-15-2013 11:28-0400 Respiratory Rate 17 /min Melonie Lanza LPN [facility] Internal Medicine Work Phone: 08-15-2013 11:28-0400 SaO2% (BldA) [Mass fraction] 96 % Melonie Lanza LPN [facility] Internal Medicine Work Phone: Comment on above: Room air 08-15-2013 11:28-0400 Weight 86.24 kg Marcia Walker [facility] Internal Medicine Work Phone: 08-07-2013 10:47-0400 BMI (Body Mass Index) 38.4 kg/m2 Melonie Lanza LPN [facility] Internal Medicine Work Phone: 08-07-2013 10:47-0400 Body Temperature 98 [degF] Melonie Lanza LPN [facility] Internal Medicine Work Phone: Comment on above: Method: Oral 08-07-2013 10:47-0400 Body weight 86.24 kg Melonie Lanza LPN [facility] Internal Medicine Work Phone: 08-07-2013 10:47-0400 BP Diastolic 82 mm[Hg] Melonie Lanza LPN [facility] Internal Medicine Work Phone: Comment on above: Patient Position: Sitting; Cuff Location : Left Arm; Cuff Size: Standard 08-07-2013 10:47-0400 BP Systolic 142 mm[Hg] Melonie Lanza LPN [facility] Internal Medicine Work Phone: Comment on above: Patient Position: Sitting; Cuff Location : Left Arm; Cuff Size: Standard 08-07-2013 10:47-0400 BSA (Body Surface Area) 1.8 m2 Melonie Lanza LPN [facility] Internal Medicine Work Phone: 08-07-2013 10:47-0400 Height 149.86 cm Melonie Lanza LPN [facility] Internal Medicine Work Phone: 08-07-2013 10:47-0400 Pulse (Heart Rate) 74 /min Melonie Lanza LPN [facility] Internal Medicine Work Phone: Comment on above: Pattern: Regular 08-07-2013 10:47-0400 Pulse Oximetry 96 % Marcia Walker [facility] Internal Medicine Work Phone: Comment on above: Room air 08-07-2013 10:47-0400 Respiratory Rate 18 /min Melonie Lanza LPN [facility] Internal Medicine Work Phone: 08-07-2013 10:47-0400 SaO2% (BldA) [Mass fraction] 96 % Melonie Lanza LPN [facility] Internal Medicine Work Phone: Comment on [...] Regular 03-06-2013 13:53-0400 Respiratory Rate 20 /min Veroinque Childers RN [facility] Work Phone: Comment on above: Pattern: Unlabored 03-06-2013 13:53-0400 Weight 84.88 kg Marcia Walker [facility] Internal Medicine Work Phone: 03-07-2012 11:15-0400 BMI (Body Mass Index) 36.05 kg/m2 Safia Sosa RN [facility] Internal Medicine Work Phone: 03-07-2012 11:15-0400 Body [...] Regular 04-29-2010 14:31-0400 Respiratory Rate 16 /min Melnoie Lanza 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 [facility] Work Phone: Comment on [...] 05-31-2025 Emergency department patient visit Karen Alcazar [employer] Work Phone: -Emergency Department Work Phone: Start: 01-04-2025 End: 01-04-2025 ambulatory Karen Alcazar Facility:[facility] Start: 11-01-2024 End: 11-01-2024 Telephone encounter Celena Kaba APRN.MOLD CLAMPER Work Phone: Hematology/Oncology Start: 10-31-2024 End: 10-31-2024 ambulatory Karen Alcazar Facility:[facility] Start: 10-09-2024 ambulatory Kelvin Ayala Facility:[facility] Start: 10-09-2024 End: 10-09-2024 ambulatory Karen Ottoniel Facility:[facility] Start: 09-25-2024 End: 09-25-2024 Emergency department patient visit Lyle Guerrero Facility:[facility] Start: 09-25-2024 End: 09-25-2024 ambulatory Karen Ottoniel Facility:[facility] Start: 08-01-2024 End: 08-01-2024 ambulatory Karen Ottoniel Facility:[facility] Start: 07-20-2023 End: 07-29-2023 Office outpatient visit 25 minutes Karen Alcazar [employer]PER Work Phone: [facility] Start: 07-05-2023 End: 07-05-2023 ambulatory [facility] Work Phone: Start: 07-05-2023 End: 07-05-2023 Patient encounter procedure [facility]-Outpatient Breast Imaging Work Phone: Start: 06-21-2023 End: 06-21-2023 Karen Alcazar MOLD CLAMPER Work Phone: [facility] Start: 01-19-2023 [...] Start: 05-19-2022 End: 05-19-2022 Patient encounter procedure [facility] Breast [facility] Start: 02-27-2022 End: 02-27-2022 Office outpatient visit 15 minutes Marcia Walker Work Phone: [facility] Start: 11-18-2021 End: 11-18-2021 Office outpatient visit 25 minutes Marcia Walker CNP Work Phone: [facility] Start: 08-13-2021 End: 08-13-2021 Office outpatient visit 25 minutes Marcia Walker CNP Work Phone: [facility] Start: 03-28-2021 End: 03-28-2021 Annotation/Addendum Marcia Ciesa MOLD CLAMPER Work Phone: [facility] Start: 03-28-2021 End: 03-28-2021 Karen Alcazar MOLD CLAMPER Work Phone: [facility] Start: 03-19-2021 End: 03-19-2021 Office outpatient visit 25 minutes Marcia Walker MOLD CLAMPER Work Phone: [facility] Start: 03-19-2021 Review Marcia Walker M[employer] CLAMPER Work Phone: [facility] Start: 03-13-2021 End: 03-13-2021 Lab Order Marcia Walker [facility] Start: 03-13-2021 End: 03-13-2021 Karen Alcazar MOLD CLAMPER Work Phone: [facility] Start: 03-10-2021 Review Marcia Morin [facility] Start: 03-10-2021 End: 03-10-2021 Phone Encounter Marcia Walker [facility] Start: 03-10-2021 End: 03-10-2021 Karen Alcazar MOLD CLAMPER Work Phone: [facility] Start: 02-24-2021 End: 02-24-2021 Office outpatient visit 15 minutes Marcia Walker [facility] Start: 09-30-2020 End: 09-30-2020 Annotation/Addendum Marcia Walker [facility] Start: 09-30-2020 End: 09-30-2020 Karen Alcazar MOLD CLAMPER Work Phone: [facility] Start: 08-09-2020 End: 08-09-2020 Annotation/Addendum Marcia Walker [facility] Start: 08-09-2020 End: 08-09-2020 Karen Alcazar MOLD CLAMPER Work Phone: [facility] Start: 06-11-2020 End: 06-11-2020 Annotation/Addendum Marcia Walker [facility] Start: 06-11-2020 Review Marcia Morin [...] 08-18-2019 End: 08-18-2019 Annotation/Addendum Marcia Walker [facility] Start: 08-18-2019 End: 08-18-2019 Karen Alcazar CNP Work Phone: [facility] Start: 04-03-2019 End: 04-03-2019 Office outpatient visit 15 minutes Marcia Walker [facility] Start: 03-14-2019 End: 03-14-2019 Annotation/Addendum Marcia Walker [facility] Start: 03-14-2019 End: 03-14-2019 Karen [...] 09-16-2018 End: 09-16-2018 Annotation/Addendum Marcia Meiera [facility] Start: 09-16-2018 End: 09-16-2018 Karen Alcazar CNP Work Phone: [facility] Start: 09-01-2018 End: 09-01-2018 Annotation/Addendum Marcia Reneaa [facility] Start: 09-01-2018 End: 09-01-2018 Karen Alcazar CNP Work Phone: [facility] Start: 06-27-2018 End: 06-27-2018 Office outpatient visit 15 minutes Marcia Walker [facility] Start: 06-14-2018 End: 06-14-2018 Office outpatient visit 25 minutes Marcia Walker [facility] Start: 04-20-2018 End: 04-20-2018 Lab Order Marcia Walker [facility] Start: 04-20-2018 End: 04-20-2018 Karen Alcazar CNP Work Phone: [facility] Start: 03-25-2018 End: 03-25-2018 Phone Encounter Marcia Walker [facility] Start: 03-25-2018 End: 03-25-2018 Karen Alcazar MOLD CLAMPER Work Phone: [facility] Start: 03-15-2018 End: 03-15-2018 Phone Encounter Marcia Walker [facility] Start: 03-15-2018 End: 03-15-2018 Karen [...] 10-04-2017 End: 10-04-2017 Annotation/Addendum Marcia Walker [facility] Start: 10-04-2017 End: 10-04-2017 Karen Alcazar CNP Work Phone: [facility] Start: 09-20-2017 [facility] Start: 08-10-2017 End: 08-10-2017 Office outpatient [...] End: 10-13-2016 Patient encounter Marcia Walker [facility] Start: 10-13-2016 End: 10-13-2016 Karen Alcazar CNP Work Phone: [facility] Start: 10-13-2016 End: 10-13-2016 Office outpatient visit 25 minutes Marcia Walker [facility] Start: 09-30-2016 End: 09-30-2016 Annotation/Addendum Marcia Walker [facility] Start: 09-30-2016 End: 09-30-2016 Karen Alcazar CNP Work Phone: [facility] Start: 09-30-2016 End: 09-30-2016 Office outpatient visit 25 minutes Marcia Walker [facility] Start: 09-11-2013 End: 09-11-2013 Lab Order Marcia Walker [facility] Start: 09-11-2013 End: 09-11-2013 Karen [...] End: 03-06-2013 Patient encounter Marcia Walker [facility] Start: 03-06-2013 End: 03-06-2013 Karen Alcazar CNP Work Phone: [facility] Start: 03-07-2012 End: 03-07-2012 Patient encounter Marcia Walker [facility] Start: 03-07-2012 End: 03-07-2012 Karen Alcazar CNP Work Phone: [facility] Start: 04-29-2010 End: 04-29-2010 Office outpatient visit 15 minutes Marcia Walker [facility] Start: 10-18-2009 End: 10-18-2009 Office outpatient new 30 minutes Marcia Walker [facility] Patient encounter procedure Federica Olivarez CMA [facility]; [facility] Work Phone: Patient encounter procedure Haseeb Brizuela 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 [facility]; [facility] Work Phone: Patient encounter procedure Latrice Cam 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 [facility]; [facility] Work Phone: Patient encounter procedure Haseeb Sherwood 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 [facility] Work Phone: Patient encounter procedure Haseeb Brizuela 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 [facility]; [facility] Work Phone: Patient encounter procedure Ry Serna [facility]; [facility] Work Phone: Patient encounter procedure Latrice Levy 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 [facility]; [facility] Work Phone: Patient encounter procedure Nellie Knox 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 [facility]; [facility] Work Phone: Patient encounter procedure Latricetarsha Levy 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 [facility]; [facility] Work Phone: Patient encounter procedure Karen Alcazar CNP Work Phone: [facility]; [facility] Work Phone: Patient encounter procedure Flavia Coleman MA [facility]; [facility] Work Phone: Procedures Date Procedure Procedure Detail Performing Clinician Start: 05-31-2025 Plain X-ray of shoulder Karen Alcazar [employer] Work Phone: Start: 05-31-2025 CT cervical spine without contrast Karen Alcazar [employer] Work Phone: Start: 05-31-2025 CT of face Karen wong [employer] Work Phone: Start: 05-31-2025 CT of head without contrast Karen Alcazar [employer] Work Phone: Start: 07-05-2023 Screening mammography Start: 07-05-2023 End: 07-05-2023 Procedure Note: See Note; NOTES: [facility] Imaging Services [address] [place] [address] SCRN MAMM (CAD)W/SHELIA BILAT MR#: [id number] Acct: [id number] Name: KAREN VILLALOBOS Rep #: [id number] : 1945 F 78 From: Fernando shaw MD PCP: ADRIANO Burgess Status: [facility] Study: SCRN MAMM (CAD)W/SHELIA BILAT Date of Exam: 06/20 Exam# [id number] Ordering Dr: Karen Alcazar [employer] MAMMOGRAPHY - BILATERAL SCREENING REASON FOR EXAM: [...] delay biopsy of a clinically suspicious abnormality. [id number] Electronically Signed: Fernando Ford MD at 13:14 EDT , CC: HORSE SHOEROmega Alcazar Ski Maker Wood: Signed Karen Alcazar MOLD CLAMPER Work Phone: Start: 05-19-2022 End: 05-22-2022 SCRN MAMM (CAD)W/SHELIA BILAT Comments: See Note; NOTES: [facility] Imaging Services [address] [place] [address] SCRN MAMM (CAD)W/SHELIA BILAT MR#: [id number] Acct: [id number] Name: KAREN VILLALOBOS Rep #: [id number] : 1945 F 76 From: Hamilton Rice DO PCP: ADRIANO Moralez Status: [facility] Study: SCRN MAMM (CAD)W/SHELIA BILAT Date of Exam: 04/30 12/20 Exam# [id number] Ordering Dr: Marcia Walker NP [employer] MAMMOGRAPHY - BILATERAL SCREENING REASON FOR EXAM: [...] delay biopsy of a clinically suspicious abnormality. [id number] Electronically Signed: Hamilton Rice, at 9:11 EDT Reading Location ID and State: [facility] Tel , Service support , CC: ADRIANO Walker [employer]: Signed Marcia Walker Work Phone: Start: 04-11-2021 End: 04-11-2021 SCRN MAMM (CAD)W/SHELIA BILAT Comments: See Note; NOTES: [facility] Imaging Services [address] [place] [id number] SCRN MAMM (CAD)W/SHELIA BILAT MR#: [id number] Acct: [id number] Name: KAREN VILLALOBOS Rep #: [id number] : 1945 F 75 From: Fernando shaw MD PCP: ADRIANO Moralez Status: [facility] Study: SCRN MAMM (CAD)W/SHELIA BILAT Date of Exam: 03/29 03/19 Exam# [id number] Ordering Dr: Marcia Walker NP [employer] MAMMOGRAPHY - BILATERAL SCREENING REASON FOR EXAM: [...] delay biopsy of a clinically suspicious abnormality. [id number] Electronically Signed: Fernando Ford MD at 12:41 EDT , Service support , CC: ADRIANO Walker Ski [employer] Wood: Signed Marcia Walker [facility] Work Phone: Start: 03-20-2021 End: 03-21-2021 Sinus/Facial Bone Comments: See Note; NOTES: [facility] Imaging Services [address] [place] [address] Sinus/Facial Bone MR#: [id number] Acct: [id number] Name: KAREN VILLALOBOS Rep #: [id number] : 1945 F 75 From: Toni Bond MD PCP: ADRIANO Moralez Status: REG CLI Study: Sinus/Facial Bone Date of Exam: 03/20/21 Exam# [id number] Ordering Dr: Arelis Chiu DO STUDY: CT [...] CC: ADRIANO Walker; Dr. Arelis Chiu DO Ski Maker Wood: Signed Arelis hCiu DO Work Phone: Start: 08-30-2019 End: 08-30-2019 SCREEN MAMM (CAD) W/SHELIA BILAT Comments: See Note; NOTES: [facility] Imaging Services [address] [place] [address] SCREEN MAMM (CAD) W/SHELIA BILAT MR#: [id number] Acct: [id number] Name: KAREN VILLALOBOS Rep #: [id number] : 1945 F 74 From: Fernando Ford MD PCP: Renata Mei DO Status: [facility] Study: SCREEN MAMM (CAD) W/SHELIA BILAT Date of Exam: 08/30/19 Exam# [id number] Ordering Dr: Marcia Walker HORSE SHOEROmega MAMMOGRAPHY - BILATERAL SCREENING REASON FOR EXAM: [...] delay biopsy of a clinically suspicious abnormality. [id number] Electronically Signed: Fernando Liliana, at 14:52 EDT , Service support , CC: HORSE SH[employer]ER-Dinorah Walker; Renata Mei DO Ski Maker Wood: Signed Marcia Walker Work Phone: Start: 05-09-2019 End: 05-09-2019 12 lead ECG Comments: See Note; NOTES: [facility] Cardiovascular Services [address] [place] [address] 12 Lead EKG 05/05/19 0048 MR#: [id number] Acct: [id number] Name: KAREN VILLALOBOS Rep #: [id number] : 1945 73 From: Paul Cruz MD [...] Abnormal ECG Confirmed by SHARATH CLEMONS, PAUL ([id number]), scientific editor QUEENIE GUERRA ([id number]) on 05/09/2019 8:45:38 AM Referred By: EFRAIN Confirmed By:PAUL CRUZ MD 05/09/19 0845 Date Paul Cruz MD CC: Huang Escudero MD; Renata Mei DO Signed Marcia Walker Start: 05-05-2019 End: 05-05-2019 Emergency Department Summary Comments: See Note; NOTES: [facility] Medical Records Department [address] [place] [address] Emergency Department Summary 05/05/19 0023 MR#: [id number] Acct: [id number] Name: KAREN VILLALOBOS Rep #: [id number] : 1945 73 From: Huang Escudero MD [...] your Primary Care Provider. Call [facility] ([phone]) or report to the closest Emergency Room. Call 911 if necessary. 05/05/19 0107 <Electronically signed by Huang Escudero MD> Date Huang Escudero MD Cosigner Signature (If Indicated): Date CC: Renata Mei DO Marcia Walker Start: 04-18-2019 End: 04-18-2019 Discharge Instruction Comments: See Note; NOTES: [facility] Medical Records Department [address] [place] [address] Instructions for Home/Discharge Instructions 04/18/19 1318 MR#: [id number] Acct: [id number] Name: KAREN VILLALOBOS Rep #: [id number] : 1945 73 From: Renetta Najera MD PCP: Renata Mei DO Status: REG [facility] Discharge Diet: No Restrictions - Increase water [...] HCl ER] 500 mg PO BID 10/03/18 [place]-3 Fatty Acids [Fish Oil] 500 mg PO [...] 04-18-2019 Operative Report Comments: See Note; NOTES: [facility] Medical Records Department [address] [place] [address] Operative Report 04/18/19 1313 MR#: [id number] Acct: [id number] Name: KAREN VILLALOBOS Rep #: [id number] : 1945 73 From: Renetta Najera MD PCP: Renata Mei DO Status: REG SDC Y Location: [place] [address] Problem List (1) Endometrial thickening on ultrasound [...] and Physical Exam Comments: See Note; NOTES: [facility] Medical Records Department [address] [place] [address] History and Physical 04/10/191953 MR#: [id number] Acct: [id number] Name: KAREN VILLALOBOS Rep #: [id number] : 1945 73 From: Renetta Najera MD PCP: Renata Mei DO Status: REG [facility] Y Location: [place] [address] ADDENDUM by Renetta Najera MD on 04/18/19 [...] and Physical Exam Comments: See Note; NOTES: [facility] Medical Records Department [address] [place] [address] History and Physical 04/10/191953 MR#: [id number] Acct: [id number] Name: KAREN VILLALOBOS Rep #: [id number] : 1945 73 From: Renetta Najera MD PCP: Renata Mei DO Status: PRE [facility] Y Location: [facility] Problem List (1) Endometrial thickening on ultrasound [...] 12 lead ECG Comments: See Note; NOTES: [facility] Cardiovascular Services [address] [place] [address] 12 Lead EKG 03/07/19 1606 MR#: [id number] Acct: [id number] Name: KAREN VILLALOBOS Rep #: [id number] : 1945 73 From: Papa Gamble MD Attending Dr: Renetta Najera MD Status: PRE SDC Ordering Dr: Renetta Najera MD Date: 03/07/19 Location: [facility] Sex: F C Admitted: Test Reason : [...] Abnormal ECG Confirmed by MAVIS CLEMONS, PAPA ([id number]), scientific editor QUEENIE GUERRA ([id number]) on 03/08/2019 1:22:42 [...] Cells: SURGERYTime: 0800SURGICAL PROCEDURE: HS D AND [facility] [id number] [place], [id number] Start: 12-12-2018 End: 12-12-2018 Operative Report Comments: See Note; NOTES: [facility] Medical Records Department [address] [place] [address] Operative Report 12/05/18 1325 MR#: [id number] Acct: [id number] Name: KRAEN VILLALOBOS Rep #: [id number] : 1945 73 From: Zee Rivas MD PCP: Renata Mei DO Status: [facility] Y Location: [facility] Report of Operation Date of Procedure: 12/05/18 Pre-Operative Diagnosis: right breast cancer Post-Operative Diagnosis: same Surgery/Procedure Performed:: right axillary sentinel lymph node biopsy via blue and radioactive dye Description of Surgical Findings:: sentinel lymph node biopsy - 5 out of 5 lymph nodes negative for metastatic disease 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,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 Type of Anesthesia:: General Anesthesiologist: Mandy [...] 12-05-2018 Discharge Instruction Comments: See Note; NOTES: [facility] Medical Records Department [address] [place] [address] Instructions for Home/Discharge Instructions 12/05/18 1206 MR#: [id number] Acct: [id number] Name: KAREN VILLALOBOS Rep #: [id number] : 1945 73 From: Zee Rivas MD PCP: Renata Mei DO Status: REG [facility] Discharge Diet: No Restrictions Discharge Activity: Return [...] HCl ER] 500 mg PO BID 10/03/18 [place]-3 Fatty Acids [Fish Oil] 500 mg PO DAILY 10/03/18 Hydrocodone Bitart/Apap 5-325 [[place] 5MG-325MG] 1 tab PO Q8H PRN PRN 3 Days #10 tab 12/05/18 The following prescriptions were given: Hydrocodone Bitart/Apap 5-325 [[place] 5MG-325MG] 1 tab PO Q8H PRN PRN 3 Days #10 tab PRN Reason: Pain Primary Care Physician: Renata Mei DO [Primary Care Provider] - Please Follow Up With: Zee Rivas MD - call When: to be seen in 7-10 days, please call for date and time, thank you 12/05/18 7976 <Electronically signed by Zee Rivas MD> Date Zee Rivas MD CC: Renata Mei DO Signed Marcia Walker Start: 12-05-2018 End: 12-05-2018 Lymph Node Injection Only Comments: See Note; NOTES: [facility] Imaging Services [address] [place] [address] Lymph Node Injection Only MR#: [id number] Acct: [id number] Name: KAREN VILLALOBOS Rep #: [id number] : 1945 F 73 From: Fernando Ford MD PCP: Renata Mei DO Status: [facility] Study: Lymph Node Injection Only Date of Exam: 12/05/18 Exam# [id number] Ordering Dr: Zee Rivas MD PROCEDURE: NUCLEAR MEDICINE Injection [place] Node - RIGHT breast(s). REASON FOR EXAM: Female, 73 years old. Right breast cancer. TECHNIQUE: [place] node localization using radionuclide methods of the [...] Fernando Ford MD at 12:54 EST Tel [phone], Service support , CC: Renata Mei DO; Zee Rivas MD [employer]: Signed Zee Rivas Work Phone: Start: 10-13-2018 End: 10-13-2018 Operative Report Comments: See Note; NOTES: [facility] Medical Records Department [address] [place] [address] Operative Report 10/11/18 1037 MR#: [id number] Acct: [id number] Name: KAREN VILLALOBOS Rep #: [id number] : 1945 73 From: Zee Rivas MD PCP: Renata Mei DO Status: [facility] Y Location: [facility] Report of Operation Date of Procedure: 10/10/18 [...] dissection was done to ensure clear margins movie actor: Walt Jeter movie actor: JOHNIE,MARGUERITE [place]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 The patient s left breast was placed in the opening at the head of the table. A property maintenance technician compression mammogram was then obtained in the [...] at the proper coordinates of depth. A property maintenance technician film was obtained which revealed the wire in proper position. The wire was then secured to the patient's skin. The right breast was then addressed next. The patient s right breast was placed in the opening at the head of the table. A property maintenance technician compression mammogram was then obtained. The marker [...] at the proper coordinates of depth. A property maintenance technician film was obtained which revealed the wire [...] 10-10-2018 Discharge Instruction Comments: See Note; NOTES: [facility] Medical Records Department [address] [place] [address] Instructions for Home/Discharge Instructions 10/10/18 1239 MR#: [id number] Acct: [id number] Name: KAREN VILLALOBOS Rep #: [id number] : 1945 73 From: Zee Rivas MD PCP: Renata Mei DO Status: REG [facility] Discharge Diet: No Restrictions Discharge Activity: Return [...] HCl ER] 500 mg PO BID 10/03/18 [place]-3 Fatty Acids [Fish Oil] 500 mg PO [...] October 08 at 10:00, thank you 10/10/18 5760 <Electronically signed by Zee Rivas MD> Date Zee Rivas MD CC: Renata eMi DO Marcia Walker Start: 10-10-2018 End: 10-10-2018 Breast Biopsy Specimen Comments: See Note; NOTES: [facility] Imaging Services [address] [place] [address] Breast Biopsy Specimen MR#: [id number] Acct: [id number] Name: KAREN VILLALOBOS Rep #: [id number] : 1945 F 73 From: Fernando Ford MD PCP: Renata Mei DO Status: [facility] Study: Breast Biopsy Specimen Date of Exam: 10/10/18 Exam# [id number] Ordering Dr: Zee Rivas MD SURGICAL BREAST SPECIMEN RADIOGRAPH CLINICAL: Document presence of mass in biopsy specimen. FINDINGS: Specimen shows presence of mass. Electronically Signed: Fernando Ford MD at 15:46 EST Tel [phone], Service support , BI/Breast Biopsy Specimen CC: Renata Mei DO; Zee Rivas MD [employer]: Signed Zee Rivas Work Phone: Start: 10-10-2018 End: 10-10-2018 Breast Biopsy Specimen Comments: See Note; NOTES: [facility] Imaging Services [address] [place] [address] Breast Biopsy Specimen MR#: [id number] Acct: [id number] Name: KAREN VILLALOBOS Rep #: [id number] : 1945 F 73 From: Fernando Ford MD PCP: Renata Mei DO Status: [facility] Study: Breast Biopsy Specimen Date of Exam: 10/10/18 Exam# [id number] Ordering Dr: Zee Rivas MD SURGICAL BREAST SPECIMEN RADIOGRAPH CLINICAL: Document presence of mass in biopsy specimen. FINDINGS: Specimen shows presence of mass. Electronically Signed: Fernando Ford MD at 16:00 EST Tel [phone], Service support , BI/Breast Biopsy Specimen CC: Renata Mei DO; Zee Rivas MD [employer]: Signed Zee Rivas Work Phone: Start: 10-10-2018 End: 10-10-2018 Lymph Node Injection Only Comments: See Note; NOTES: [facility] Imaging Services [address] [place] [address] Lymph Node Injection Only MR#: [id number] Acct: [id number] Name: KAREN VILLALOBOS Rep #: [id number] : 1945 F 73 From: Fernando Ford MD PCP: Renata Mei DO Status: [facility] Study: Lymph Node Injection Only Date of Exam: 10/10/18 Exam# [id number] Ordering Dr: Zee Rivas MD PROCEDURE: NUCLEAR MEDICINE Injection [place] Node - LEFT breast(s). REASON FOR EXAM: Female, 73 years old. Left breast cancer. TECHNIQUE: [place] node localization using radionuclide methods of the [...] Fernando Ford MD at 10:36 EST Tel [phone], Service support , CC: Renata Mei DO; Zee Rivas MD [employer]: Signed Zee Rivas Work Phone: Start: 08-30-2018 End: 09-01-2018 Breast Limited Unilateral Comments: See Note; NOTES: [facility] Imaging Services [address] [place] [address] Breast Limited Unilateral MR#: [id number] Acct: [id number] Name: KAREN VILLALOBOS Rep #: [id number] : 1945 F 73 From: Fernando Ford MD PCP: Renata Mei DO Status: REG CLI Study: Breast Limited Unilateral Date of Exam: 08/30/18 Exam# [id number] Ordering Dr: Renata Mei DO STUDY: ULTRASOUND [...] Fernando Ford MD at 14:09 EDT Tel [phone], Service support , STUDY: ULTRASOUND BREAST - [...] Fernando Ford MD at 14:10 EDT Tel [phone], Service support , CC: Renata Mei DO [employer]: Signed Renata Mei Work Phone: Start: 08-23-2018 End: 08-23-2018 SCREENING MAMM (CAD), BILAT Comments: See Note; NOTES: [facility] Imaging Services [address] [place] [address] SCREENING MAMM (CAD), BILAT MR#: [id number] Acct: [id number] Name: KAREN VILLALOBOS Rep #: [id number] : 1945 F 73 From: Fernando Ford MD PCP: Renata Mei DO Status: REG CLI Study: SCREENING MAMM (CAD), BILAT Date of Exam: 08/23/18 Exam# [id number] Ordering Dr: Renetta Najera MD MAMMOGRAPHY - [...] delay biopsy of a clinically suspicious abnormality. [id number] Electronically Signed: Fernando Ford MD at 11:32 EDT Tel [phone], Service support , CC: Renetta Najera MD; Renata Mei DO [employer]: Signed Marcia Walker Start: 02-22-2017 End: 02-22-2017 SCREENING MAMM (CAD), BILAT Comments: See Note; NOTES: [facility] Imaging Services [address] [place] [address] Verdana 4d SCREENING MAMM (CAD), BILAT MR#: [id number] Acct: [id number] Name: KAREN VILLALOBOS Rep #: [id number] : 1945 F 71 From: Fernando Ford MD PCP: Renata Mei DO Status: REG CLI Study: SCREENING MAMM (CAD), BILAT Date of Exam: 02/22/17 Exam# [id number] Ordering Dr: Renetta Najera MD MAMMOGRAPHY - [...] delay biopsy of a clinically suspicious abnormality. [id number] Electronically Signed: Fernando Ford MD at 14:49 EDT Tel [phone], Service support [phone], CC: Renetta Najera MD; Renata Mei DO [employer]: Signed Marcia Walker Start: 03-22-2015 End: 10-01-2016 Bilat Scrn Digital AND CAD Comments: See Note; NOTES: [facility] Imaging Services [address] [place] [address] Breast Imaging Report MR#: [id number] Acct: [id number] Name: KAREN VILLALOBOS Rep #: [id number] : 1945 F 69 From: Fernando Ford MD PCP: Renata Mei DO Status: [facility] CLI Study: Bilat Scrn Digital AND CAD Date of Exam: 03/22/15 Exam# [id number] Ordering Dr: Renetta Najera MD MAMMOGRAPHY - [...] Fernando Ford MD at 14:56 EDT Tel [phone], Service support [phone], CC: Renetta Najera MD; Renata Mei DO [employer]: Signed Marcia Walker H/O: section Section Silvestre Olivarez 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 Comment on above: 1977 H/O: section Section Bernardo Brizuela LPN Comment on above: 1977 H/O: section Section An yakov Levy LPN Comment on above: 1977 H/O: section Section Bernardo Sherwood LPN Comment on above: 1977 H/O: section Section Mo eze Brizuela LPN Comment on above: 1977 H/O: section Section Rubio Serna [facility] Comment on above: 1977 H/O: section Section An yakov Cam [place] Comment on above: 1977 H/O: section Section Robert Knox LPN Comment on above: 1977 H/O: section Latrice Levy LPN H/O: section Alexandra Alcazar [facility] Work Phone: H/O: section Flavia Coleman MA H/O: surgery Tonsillectomy Federica gutierrez 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 H/O: surgery Tonsillectomy Haseeb Brizuela L PN H/O: surgery Tonsillectomy Latrice Slarb L PN H/O: surgery Tonsillectomy Haseeb Sherwood L PN H/O: surgery Tonsillectomy Haseeb Brizuela L PN H/O: surgery Tonsillectomy Ry Serna 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 H/O: surgery Tonsillectomy Latrice Slarb L PN H/O: surgery Tonsillectomy Nellie Knox 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 H/O: surgery Latrice Slarb LP N H/O: surgery Karen Alcazar [employer] Work Phone: H/O: surgery Flavia Coleman MA Plan of Treatment Date Care Activity Detail Author Start: 05-31-2025 [facility] Start: 07-30-2024 Covid-19 Vaccine () Covid-19 Vaccine () [facility] Start: 07-30-2024 Influenza vaccination Influenza Vaccine (#1) [facility] Start: 11-29-2023 Advance Directive Discussion Advance Directive Discussion [facility] Start: 07-20-2023 Assay of thyroid stimulating hormone tsh [facility] Work Phone: Start: 07-20-2023 Procedure Education [facility] Work Phone: Start: 07-20-2023 Provider Instructions for Treatment [facility]; [facility] Work Phone: Start: 07-20-2023 Lipid panel [facility] Work Phone: Start: 07-20-2023 Blood count complete auto&auto difrntl wbc [facility] Work Phone: Start: 07-20-2023 Creatinine other source [facility] Work Phone: Start: 07-20-2023 Comprehensive metabolic panel [facility]; [facility] Work Phone: Start: 02-02-2023 Patient Education [facility]; [facility] Work Phone: Start: 02-02-2023 Provider Instructions for Treatment [facility]; [facility] Work Phone: Start: 01-19-2023 Hemoglobin glycosylated a1c [facility]; [facility] Work Phone: Start: 01-19-2023 Procedure Education [facility]; [facility] Work Phone: Start: 01-19-2023 Provider Instructions for Treatment [facility]; [facility] Work Phone: Start: 01-05-2023 CBC, PLATELETS & MANUAL DIFF (32038) [facility]; [facility] Work [...] Work Phone: Start: 01-05-2023 Lipid panel [facility]; [facility] Work Phone: Start: 09-22-2022 Procedure Education [facility]; [facility] Work Phone: Start: 09-22-2022 Provider Instructions for Treatment [facility]; [facility] Work Phone: Start: 08-12-2022 Procedure Education [facility] Work Phone: Start: 08-12-2022 Provider Instructions for Treatment [facility]; [facility] Work Phone: Start: 07-07-2022 Procedure Education [facility]; [facility] Work Phone: [...] next OV Start: 05-28-2022 Lipid panel [facility]; [facility] Work Phone: Comment on above: prior to next OV Start: 05-26-2022 Procedure Education [facility]; [facility] Work Phone: Start: 05-26-2022 Provider Instructions for Treatment [facility]; [facility] Work Phone: Start: 05-19-2022 MG Breast - bilateral Screening [facility] Work Phone: Start: 05-19-2022 Screening mammography SCRN MAMM (CAD)W/SEHLIA BILAT [facility] Work Phone: Start: 02-27-2022 Procedure Education [facility]; [facility] Work Phone: Start: 02-27-2022 Provider Instructions for Treatment [facility]; [facility] Work Phone: Start: 11-18-2021 Procedure Education [facility]; [facility] Work Phone: Start: 11-18-2021 Provider Instructions for Treatment [facility]; [facility] Work Phone: Start: 11-18-2021 Hepatic function panel HEPATIC FUNCTION PANEL (27454) [facility]; [facility] Work Phone: Comment on above: January 2022 Start: 11-18-2021 Blood count complete automated CBC & PLATELETS (AUTO) (00973) [facility]; [facility] Work Phone: Comment on above: January 2022 Start: 08-13-2021 Procedure Education [facility]; [facility] Work Phone: Start: 08-13-2021 Provider Instructions for Treatment [facility]; [facility] Work Phone: Start: 03-31-2021 Blood count complete automated [facility]; [facility] Work Phone: Start: 03-19-2021 Procedure Education [facility]; [facility] Work Phone: Start: 03-19-2021 Provider Instructions for Treatment [facility]; [facility] Work Phone: Start: 03-19-2021 Hemoglobin glycosylated a1c HgA1C , Office (33639) [facility]; [facility] Work Phone: Start: 03-19-2021 Gluc bld gluc mntr dev cleared fda spec home use Blood Glucose , Office (78040) [facility]; [facility] Work Phone: Start: 03-13-2021 Assay of free thyroxine [facility] Work Phone: Start: 03-13-2021 Free T4 [Mass/Vol] T4, FREE (THYROXINE) (77857) [facility]; [facility] Work Phone: Start: 03-13-2021 Assay of triiodothyronine t3 free [facility]; [facility] Work Phone: Start: 03-13-2021 Blood count complete auto&auto difrntl wbc [facility]; [facility] Work Phone: Start: 03-13-2021 Comprehensive metabolic panel [facility]; [facility] Work Phone: Start: 03-13-2021 Lipid panel LIPID PANEL (17680) [facility]; [facility] Work Phone: Start: 03-13-2021 Cobalamin (Vitamin B12) [Mass/Vol] VITAMIN B12 AND FOLATES (89323) [facility]; [facility] Work Phone: Start: 03-13-2021 25 hydroxy includes fractions if performed CALCIFEDIOL (78483) [facility]; [facility] Work Phone: Start: 03-13-2021 TSH Qn TSH (THYROID STIMULATING HORMONE) (73634) [facility]; [facility] Work Phone: Start: 02-24-2021 Procedure Education [facility]; [facility] Work Phone: Start: 08-09-2020 Iaadiadoo influenza [facility] Work Phone: Start: 2020 RSV Vaccine (1 - 1-dose 75+ series) RSV Vaccine (1 - 1-dose 75+ series) [facility] Start: 06-10-2020 Procedure Education [facility] Work Phone: Start: 06-10-2020 Provider Instructions for Treatment [facility] Work Phone: Start: 06-10-2020 Lipid panel [facility] Work Phone: Comment on above: Aug 12 Start: 06-10-2020 Cobalamin (Vitamin B12) [Mass/Vol] VITAMIN B12 AND FOLATES (41394) [facility] Work Phone: Start: 06-10-2020 25 hydroxy includes fractions if performed CALCIFEDIOL (29259) [facility] Work Phone: Start: 06-10-2020 HbA1c (Bld) [Mass fraction] HGB A1C (74045) [facility] Work Phone: Start: 05-14-2020 TSH Qn TSH (THYROID STIMULATING HORMONE) (15821) [facility] Work Phone: Start: 05-14-2020 Comprehensive metabolic panel Metabolic Panel, Comprehensive (26756) [facility] Work Phone: Start: 05-14-2020 Lipid panel LIPID PANEL (92118) [facility] Work Phone: Start: 02-23-2020 Procedure Education [facility] Work Phone: Start: 02-23-2020 Provider Instructions for Treatment [facility] Work Phone: Start: 02-21-2020 Procedure Education [facility] Work Phone: Start: 02-21-2020 Provider Instructions for Treatment [facility] Work Phone: Start: 02-16-2020 Procedure Education [facility] Work Phone: Start: 02-16-2020 Provider Instructions for Treatment [facility] Work Phone: Start: 02-05-2020 Assay of thyroid stimulating hormone tsh TSH (THYROID STIMULATING HORMONE) (18414) [facility] Work Phone: Start: 02-05-2020 TSH Qn TSH (THYROID STIMULATING HORMONE) (15863) [facility] Work Phone: Start: 12-14-2019 Patient Education [facility] Work Phone: Start: 12-14-2019 Procedure Education [facility] Work Phone: Start: 12-14-2019 Provider Instructions for Treatment [facility] Work Phone: Start: 11-06-2019 Procedure Education [facility] Work Phone: Start: 11-06-2019 Provider Instructions for Treatment [facility] Work Phone: Start: 10-31-2019 Lipid panel LIPID PANEL (45792) [facility] Work Phone: Start: 10-31-2019 Comprehensive metabolic panel Metabolic Panel, Comprehensive (04499) [facility] Work Phone: Start: 10-31-2019 Blood count complete auto&auto difrntl wbc CBC, Platelets & Auto Diff (48954) [facility] Work Phone: Start: 10-31-2019 TSH Qn TSH (20412) [facility] Work Phone: Start: 08-28-2019 Procedure Education [facility] Work Phone: Start: 08-28-2019 Provider Instructions for Treatment [facility] Work Phone: Start: 04-03-2019 Procedure Education [facility] Work Phone: Start: 04-03-2019 Gluc bld gluc mntr dev cleared fda spec home use [facility] Work Phone: Comment on above: 143 Start: 04-03-2019 Glucose [Mass/Vol] Blood Glucose , Office (81055) [facility] Work Phone: Comment on above: 143 Start: 04-03-2019 HbA1c (Bld) [Mass fraction] HgA1C , Office (68061) [facility] Work Phone: Comment on above: 6.8 Start: 04-03-2019 Hemoglobin glycosylated a1c [facility] Work Phone: Comment on above: 6.8 Start: 03-13-2019 Procedure Education [facility] Work Phone: Start: 03-13-2019 Provider Instructions for Treatment [facility] Work Phone: Start: 03-13-2019 Thyrotropin Qn TSH (THYROID STIMULATING HORMONE) (55307) [facility] Work Phone: Start: 02-27-2019 Assay of thyroid stimulating hormone tsh TSH (THYROID STIMULATING HORMONE) ([id number]) [facility] Work Phone: Start: 02-27-2019 Thyrotropin Qn TSH (THYROID STIMULATING HORMONE) ([id number]) [facility] Work Phone: Start: 01-19-2019 Procedure Education [facility] Work Phone: Start: 01-19-2019 Provider Instructions for Treatment [facility] Work Phone: Start: 10-05-2018 Procedure Education [facility] Work Phone: Start: 10-05-2018 Provider Instructions for Treatment [facility] Work Phone: Start: 10-05-2018 Thyrotropin Qn TSH (THYROID STIMULATING HORMONE) ([id number]) [facility] Work Phone: Comment on above: get done week of Nov 21 Start: 09-16-2018 Procedure Education [facility] Work Phone: Start: 06-27-2018 Procedure Education [facility] Work Phone: Start: 06-27-2018 Provider Instructions for Treatment [facility] Work Phone: Start: 06-27-2018 25 hydroxy includes fractions if performed CALCIFEDIOL (40211) [facility] Work Phone: Comment on above: August 2018 Start: 06-27-2018 Comprehensive metabolic panel Metabolic Panel, Comprehensive (41220) [facility] Work Phone: Comment on above: August 2018 Start: 06-27-2018 Alpha-fetoprotein serum [id number] M ([id number]) [facility] Work Phone: Comment on above: Aug 2018 Start: 06-27-2018 Thyrotropin Qn TSH (THYROID STIMULATING HORMONE) ([id number]) [facility] Work Phone: Comment on above: August 2018 Start: 06-14-2018 Procedure Education [facility] Work Phone: Start: 06-14-2018 Provider Instructions for Treatment [facility] Work Phone: Start: 05-02-2018 25 hydroxy includes fractions if performed CALCIFEDIOL (58981) [facility] Work Phone: Start: 05-02-2018 Cobalamin (Vitamin B12) mass conc VITAMIN B12 AND FOLATES (35217) [facility] Work Phone: Start: 05-02-2018 Cyanocobalamin vitamin b-12 VITAMIN B12 AND FOLATES (07311) [facility] Work Phone: Start: 05-02-2018 Assay of free thyroxine T4, FREE (THYROXINE) ([id number]) [facility] Work Phone: Start: 05-02-2018 T4 free mass conc T4, FREE (THYROXINE) ([id number]) [facility] Work Phone: Start: 05-02-2018 Assay of triiodothyronine t3 free T3, FREE (TRIDOTHYRONINE) ([id number]) [facility] Work Phone: Start: 05-02-2018 T3 free mass conc T3, FREE (TRIDOTHYRONINE) (26403) [facility] Work Phone: Start: 05-02-2018 Assay of thyroid stimulating hormone tsh TSH (65400) [facility] Work Phone: Start: 05-02-2018 Thyrotropin Qn TSH (09065) [facility] Work Phone: Start: 04-20-2018 Urinalysis qual/semiquant except immunoassays [facility] Work Phone: Start: 04-20-2018 Culture bacterial quanttative colony count urine [facility] Work Phone: Start: 04-20-2018 Urnls dip stick/tablet rgnt non-auto w/o micrscp [facility] Work Phone: Start: 04-20-2018 Assay of free thyroxine [facility] Work Phone: Start: 04-20-2018 T4 free mass conc T4, FREE (THYROXINE) ([id number]) [facility] Work Phone: Start: 04-20-2018 Assay of triiodothyronine t3 free [facility] Work Phone: Start: 04-20-2018 T3 free mass conc T3, FREE (TRIDOTHYRONINE) ([id number]) [facility] Work Phone: Start: 04-20-2018 Assay of thyroid stimulating hormone tsh [facility] Work Phone: Start: 04-20-2018 Thyrotropin Qn TSH (THYROID STIMULATING HORMONE) ([id number]) [facility] Work Phone: Start: 03-25-2018 Assay of thyroid stimulating hormone tsh [facility] Work Phone: Start: 03-25-2018 Thyrotropin Qn TSH (59376) [facility] Work Phone: Start: 03-25-2018 Assay of free thyroxine [facility] Work Phone: Start: 03-25-2018 T4 free mass conc T4, FREE (THYROXINE) ([id number]) [facility] Work Phone: Start: 03-25-2018 Assay of triiodothyronine t3 free [facility] Work Phone: Start: 03-25-2018 T3 free mass conc T3, FREE (TRIDOTHYRONINE) ([id number]) [facility] Work Phone: Start: 03-15-2018 Procedure Education [facility] Work Phone: Start: 12-06-2017 Procedure Education [facility] Work Phone: Start: 12-06-2017 Provider Instructions for Treatment [facility] Work Phone: Start: 11-30-2017 Patient Education [facility] Work Phone: Start: 11-30-2017 Provider Instructions for Treatment [facility] Work Phone: Start: 08-10-2017 Procedure Education [facility] Work Phone: Start: 08-10-2017 Provider Instructions for Treatment [facility] Work Phone: Start: 05-07-2017 Procedure Education [facility] Work Phone: Start: 02-09-2017 Lipid panel [facility] Work Phone: Comment on above: (repeat in Jul 2017 Start: 02-09-2017 Alpha-fetoprotein serum [facility] Work Phone: Comment on above: Repeat Jul 2017 Start: 02-09-2017 Comprehensive metabolic panel [facility] Work Phone: Comment on above: repeat in Jul 2017 Start: 02-09-2017 Provider Instructions for Treatment [facility] Work Phone: Start: 12-09-2016 Procedure Education [facility] Work Phone: Start: 12-09-2016 Provider Instructions for Treatment [facility] Work Phone: Start: 10-13-2016 Procedure Education [facility] Work Phone: Start: 09-30-2016 Procedure Education [facility] Work Phone: Start: 09-30-2016 Provider Instructions for Treatment [facility] Work Phone: Start: 09-30-2016 Assay of thyroid stimulating hormone tsh [facility] Work Phone: Start: 09-30-2016 Thyrotropin Qn TSH (THYROID STIMULATING HORMONE) ([id number]) [facility] Work Phone: Start: 09-11-2013 Assay of thyroid stimulating hormone tsh [facility] Work Phone: Start: 09-11-2013 Thyrotropin Qn TSH (THYROID STIMULATING HORMONE) ([id number]) [facility] Work Phone: Start: 08-28-2013 Lipid panel [facility] Work Phone: Comment on above: Draw cholesterol fasting Oct 09 Start: 08-28-2013 Assay of free thyroxine [facility] Work Phone: Comment on above: draw Oct 09 Start: 08-28-2013 T4 free mass conc T4, FREE (THYROXINE) ([id number]) [facility] Work Phone: Comment on above: draw Oct 09 Start: 08-28-2013 Assay of thyroid stimulating hormone tsh [facility] Work Phone: Comment on above: draw Oct 09 Start: 08-28-2013 Thyrotropin Qn TSH ([id number]) [facility] Work Phone: Comment on above: [...] A1c/Hemoglobin.total mass fraction (Bld) HgA1C , Office (26176) [facility] Work Phone: Start: 03-06-2013 Hemoglobin glycosylated a1c [facility] Work Phone: Start: 03-06-2013 Provider Instructions for Treatment [facility] Work Phone: Start: 03-07-2012 Provider Instructions for Treatment [facility] Work Phone: Start: 2010 Pneumococcal Vaccine: 65+ (1 of 1 - PCV) Pneumococcal Vaccine: 65+ (1 of 1 - PCV) [facility] Start: 2010 Screening for osteoporosis Bone Density Screening [facility] Start: 10-18-2009 Provider Instructions for Treatment [facility] Work Phone: Start: 10-18-2009 Lipid panel [facility] Work Phone: Start: 10-18-2009 Glucose mass conc Glucose, PP/2 Hour (19753) [facility] Work Phone: Start: 10-18-2009 Glucose quantitative blood xcpt reagent strip [facility] Work Phone: Start: 10-18-2009 Blood occult fecal hgb deter ia qual feces 1-3 [facility] Work Phone: Comment on above: dispense Start: 1995 Shingrix Vaccine (1 of 2) Shingrix Vaccine (1 of 2) [facility] Start: 1990 Diabetes Screening Diabetes Screening [facility] Start: 1964 Urine microalbumin profile DTaP,Tdap,Td Vaccine (1 - Tdap) [facility] Start: 1963 Anxiety Screening Anxiety Screening [facility] Start: 1963 Depression Screening Depression Screening [facility] Work Phone: [...] Immunization Date Immunization Notes Care Provider Aruna [facility] 05-31-2025 tetanus toxoid, reduced diphtheria toxoid, and acellular pertussis vaccine, adsorbed Karen Alcazar [employer]ORSE [employer]ER[employer] Work Phone: [facility] 02-14-2021 COVID-19 original vaccine, age 12+ yr, monovalent (PFIZER-BIONTECH - PURPLE TOP) Celena Kaba PILER.MOLD CLAMPER Work Phone: [facility] 01-27-2021 COVID-19 (Pfizer) Marcia Walker MOLD CLAMPER Work Phone: [facility]; [facility] Work Phone: 01-24-2021 COVID-19 original vaccine, age 12+ yr, monovalent (PFIZER-BIONTECH - PURPLE TOP) Celena Kaba PILER.MOLD CLAMPER Work Phone: [facility] Work Phone: Payers Date Payer Category Payer Self-pay [id number] 2017 Medicare [id number] 2017 Medicare [id number] 2010 Medicare [id number] 2005 Unknown [id number] 1945 Unknown [id number] [id number] Unknown Unknown [id number] 2.16.8 [id number] Unknown [id number] 2.16.8 [id number] Unknown [id number] 2.16.8 [id number] Unknown [id number] 2.16.8 [id number] Unknown [id number] 2.16.8 [id number] Unknown [id number] 2.16.8 [id number] Unknown [id number] 2.16.8 [id number] Unknown [id number] 2.16.8 [id number] Social History Date Type Detail Facility Start: 11-06-2019 End: 11-03-2020 Alcohol Use Never smoker [facility] Work Phone: Comment on above: Moderate alcohol use 2 qd Light Lives with spouse none Tobacco use: Never smoker. [facility] Work Phone: Comment on above: 03/07/12 Tobacco use: Tobacco use: [facility] Work Phone: Comment on above: 03/07/12 Start: 05-05-2019 [facility] Start: 03-07-2019 Non-smoker [facility] Start: 1945 Sex Assigned At Female [facility] Start: 09-16-2018 End: 05-31-2025 Tobacco smoking status NHIS Never smoked tobacco [facility] Start: 09-16-2018 Tobacco use and exposure Smokeless tobacco non-user [facility] Start: 11-06-2019 Alcoholic beverage intake Current non-drinker of alcohol (finding) [facility] Start: 11-06-2019 End: 11-03-2020 Tobacco use panel [facility] Adult Depression Screening Assessment 2 [facility] Start: 1945 Sex assigned at Not on file [facility] Medical Equipment Procedure Code Equipment Code [...] 90 {Strip} Refills: 3 Ordered: 30-Sep-2016 Slarb 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, Latrice Start : 30-Sep-2016 Active Start: 09-30-2016 [...] 90 {Strip} Refills: 3 Ordered: 30-Sep-2016 Slarb 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, Latrice Start : 30-Sep-2016 Active Start: 09-30-2016 ReliOn Confirm/m icro Test In Vitro Strip 1 (one) Strip Strip test three times daily for 0 days Quantity: 90 {Strip} Refills: 0 Ordered: 30-Sep-2016 Slarb 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, Latrice Start : 30-Sep-2016 Active Start: 09-30-2016 [...] 90 {Strip} Refills: 3 Ordered: 30-Sep-2016 Slarb 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, Latrice Start : 30-Sep-2016 Active Start: 09-30-2016 ReliOn Confirm/m icro Test In Vitro Strip 1 (one) Strip Strip test three times daily for 0 days Quantity: 90 {Strip} Refills: 0 Ordered: 30-Sep-2016 Slarb 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, Latrice Start : 30-Sep-2016 Active Start: 09-30-2016 NovoFine 32G X 6 MM Miscellaneous 1 (one) Misc once daily for 0 days Quantity: 1 {Box} Refills: 5 Ordered: 19-Jan-2019 Aaron MOLD CLAMPER, Carmen Aaron BRICEÑO, Marcia Orona Start : 19-Jan-2019 Active Start: 01-19-2019 ReliOn Blood Glu cose Test In Vitro Strip 1 (one) Strip Strip test 3 x daily for 0 days Quantity: 90 {Strip} Refills: 3 Ordered: 30-Sep-2016 Slarb 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, Latrice Start : 30-Sep-2016 Active Start: 09-30-2016 ReliOn Confirm/m icro Test In Vitro Strip 1 (one) Strip Strip test three times daily for 0 days Quantity: 90 {Strip} Refills: 0 Ordered: 30-Sep-2016 Slarb 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, Latrice Start : 30-Sep-2016 Active Start: 09-30-2016 [...] 90 {Strip} Refills: 0 Ordered: 30-Sep-2016 Slarb 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, Latrice Start : 30-Sep-2016 Active Start: 09-30-2016 [...] 90 {Strip} Refills: 3 Ordered: 30-Sep-2016 Slarb 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, Latrice Start : 30-Sep-2016 Active Start: 09-30-2016 ReliOn Confirm/m icro Test In Vitro Strip 1 (one) Strip Strip test three times daily for 0 days Quantity: 90 {Strip} Refills: 0 Ordered: 30-Sep-2016 Slarb 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, Latrice Start : 30-Sep-2016 Active Start: 09-30-2016 NovoFine 32G X 6 MM Miscellaneous 1 (one) Misc once daily for 0 days Quantity: 1 {Box} Refills: 5 Ordered: 19-Jan-2019 Aaron BRICEÑO, Carmen Aaron BRICEÑO, Marcia Oroan Start : 19-Jan-2019 Active Start: 01-19-2019 ReliOn Blood Glu cose Test In Vitro Strip 1 (one) Strip Strip test 3 x daily for 0 days Quantity: 90 {Strip} Refills: 3 Ordered: 30-Sep-2016 Slarb 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, Latrice Start : 30-Sep-2016 Active Start: 09-30-2016 ReliOn Confirm/m icro Test In Vitro Strip 1 (one) Strip Strip test three times daily for 0 days Quantity: 90 {Strip} Refills: 0 Ordered: 30-Sep-2016 Slarb 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, Latrice Start : 30-Sep-2016 Active Start: 09-30-2016 [...] 90 {Strip} Refills: 3 Ordered: 30-Sep-2016 Slarb 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, Latrice Start : 30-Sep-2016 Active Start: 09-30-2016 ReliOn Confirm/m icro Test In Vitro Strip 1 (one) Strip Strip test three times daily for 0 days Quantity: 90 {Strip} Refills: 0 Ordered: 30-Sep-2016 Slarb 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, Latrice Start : 30-Sep-2016 Active Start: 09-30-2016 NovoFine 32G X 6 MM Miscellaneous 1 (one) Misc once daily for 0 days Quantity: 1 {Box} Refills: 5 Ordered: 19-Jan-2019 Cimeryla MOLD CLAMPER, Carmen [facility] Start : 19-Jan-2019 Active Start: 01-19-2019 ReliOn Blood Glu cose Test In Vitro Strip 1 (one) Strip Strip test 3 x daily for 0 days Quantity: 90 {Strip} Refills: 3 Ordered: 30-Sep-2016 Slarb 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, Latriec Start : 30-Sep-2016 Active Start: 09-30-2016 ReliOn Confirm/m icro Test In Vitro Strip 1 (one) Strip Strip test three times daily for 0 days Quantity: 90 {Strip} Refills: 0 Ordered: 30-Sep-2016 Slarb 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, Latrice Start : 30-Sep-2016 Active Start: 09-30-2016 NovoFine 32G X 6 MM Miscellaneous 1 (one) Misc once daily for 0 days Quantity: 1 {Box} Refills: 5 Ordered: 19-Jan-2019 Dominiqueesa MOLD CLAMPER, Carmen [facility] Start : 19-Jan-2019 Active Start: 01-19-2019 ReliOn Blood Glu cose Test In Vitro Strip 1 (one) Strip Strip test 3 x daily for 0 days Quantity: 90 {Strip} Refills: 3 Ordered: 30-Sep-2016 Slarb 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, Latrice Start : 30-Sep-2016 Active Start: 09-30-2016 ReliOn Confirm/m icro Test In Vitro Strip 1 (one) Strip Strip test three times daily for 0 days Quantity: 90 {Strip} Refills: 0 Ordered: 30-Sep-2016 Slarb 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, Latrice Start : 30-Sep-2016 Active Start: 09-30-2016 [...] 90 {Strip} Refills: 3 Ordered: 30-Sep-2016 Slarb 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, Latrice Start : 30-Sep-2016 Active Start: 09-30-2016 ReliOn Confirm/m icro Test In Vitro Strip 1 (one) Strip Strip test three times daily for 0 days Quantity: 90 {Strip} Refills: 0 Ordered: 30-Sep-2016 Slarb 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, Latrice Start : 30-Sep-2016 Active Start: 09-30-2016 NovoFine 32G X 6 MM Miscellaneous 1 (one) Misc once daily for 0 days Quantity: 1 {Box} Refills: 5 Ordered: 19-Jan-2019 Aaron NAVARRO Marcia Walker MOLD CLAMPER, Marcia Orona Start : 19-Jan-2019 Active Start: [...] 90 {Strip} Refills: 0 Ordered: 30-Sep-2016 Slarb 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, Latrice Start : 30-Sep-2016 Active Start: 09-30-2016 [...] 90 {Strip} Refills: 3 Ordered: 30-Sep-2016 Slarb 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, Latrice Start : 30-Sep-2016 Active Start: 09-30-2016 [...] Ordered: 19-Jan-2019 Aaron BRICEÑO, Marcia Orona Dominiquemeryltarsha MOLD CLAMPER, Carmen Start : 19-Jan-2019 Active Start: 01-19-2019 [...] 5 Ordered: 19-Jan-2019 Aaron BRICEÑO Marcia Walker MOLD CLAMPER, Marcia Orona Start : 19-Jan-2019 Active Start: 01-19-2019 ReliOn Blood Glu cose Test In Vitro Strip 1 (one) Strip Strip test 3 x daily for 0 days Quantity: 90 {Strip} Refills: 3 Ordered: 30-Sep-2016 Slarb 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, Latrice Start : 30-Sep-2016 Active Start: 09-30-2016 ReliOn Confirm/m icro Test In Vitro Strip 1 (one) Strip Strip test three times daily for 0 days Quantity: 90 {Strip} Refills: 0 Ordered: 30-Sep-2016 Slarb 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, Latrice Start : 30-Sep-2016 Active Start: 09-30-2016 NovoFine 32G X 6 MM Miscellaneous 1 (one) Misc once daily for 0 days Quantity: 1 {Box} Refills: 5 Ordered: 19-Jan-2019 Aaron NAVARRO, Marcia Walker MOLD CLAMPER, Marcia Orona Start : 19-Jan-2019 Active Start: 01-19-2019 ReliOn Blood Glu cose Test In Vitro Strip 1 (one) Strip Strip test 3 x daily for 0 days Quantity: 90 {Strip} Refills: 3 Ordered: 30-Sep-2016 Slarb 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, Latrice Start : 30-Sep-2016 Active Start: 09-30-2016 ReliOn Confirm/m icro Test In Vitro Strip 1 (one) Strip Strip test three times daily for 0 days Quantity: 90 {Strip} Refills: 0 Ordered: 30-Sep-2016 Slarb 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, Latrice Start : 30-Sep-2016 Active Start: 09-30-2016 NovoFine 32G X 6 MM Miscellaneous 1 (one) Misc once daily for 0 days Quantity: 1 {Box} Refills: 5 Ordered: 19-Jan-2019 Aaron MOLD CLAMPER, Marcia Walker [facility], Marcia Orona Start : 19-Jan-2019 Active Start: 01-19-2019 ReliOn Blood Glu cose Test In Vitro Strip 1 (one) Strip Strip test 3 x daily for 0 days Quantity: 90 {Strip} Refills: 3 Ordered: 30-Sep-2016 Slarb 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, Latrice Start : 30-Sep-2016 Active Start: 09-30-2016 ReliOn Confirm/m icro Test In Vitro Strip 1 (one) Strip Strip test three times daily for 0 days Quantity: 90 {Strip} Refills: 0 Ordered: 30-Sep-2016 Slarb 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, Latrice Start : 30-Sep-2016 Active Start: 09-30-2016 [...] 90 {Strip} Refills: 3 Ordered: 30-Sep-2016 Slarb 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, Latrice Start : 30-Sep-2016 Active Start: 09-30-2016 ReliOn Confirm/m icro Test In Vitro Strip 1 (one) Strip Strip test three times daily for 0 days Quantity: 90 {Strip} Refills: 0 Ordered: 30-Sep-2016 Slarb 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, Latrice Start : 30-Sep-2016 Active Start: 09-30-2016 [...] 90 {Strip} Refills: 3 Ordered: 30-Sep-2016 Slarb 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, Latrice Start : 30-Sep-2016 Active Start: 09-30-2016 ReliOn Confirm/m icro Test In Vitro Strip 1 (one) Strip Strip test three times daily for 0 days Quantity: 90 {Strip} Refills: 0 Ordered: 30-Sep-2016 Slarb 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, Latrice Start : 30-Sep-2016 Active Start: 09-30-2016 [...] 90 {Strip} Refills: 0 Ordered: 30-Sep-2016 Slarb 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, Latrice Start : 30-Sep-2016 Active Start: 09-30-2016 [...] 90 {Strip} Refills: 3 Ordered: 30-Sep-2016 Slarb 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, Latrice Start : 30-Sep-2016 Active Start: 09-30-2016 ReliOn Confirm/m icro Test In Vitro Strip 1 (one) Strip Strip test three times daily for 0 days Quantity: 90 {Strip} Refills: 0 Ordered: 30-Sep-2016 Slarb 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, Latrice Start : 30-Sep-2016 Active Start: 09-30-2016 NovoFine 32G X 6 MM Miscellaneous 1 (one) Misc once daily for 0 days Quantity: 1 {Box} Refills: 5 Ordered: 19-Jan-2019 Aaron MOLD CLAMPER, Carmen Aaron BRICEÑO, Carmen Start : 19-Jan-2019 Active Start: 01-19-2019 ReliOn Blood Glu cose Test In Vitro Strip 1 (one) Strip Strip test 3 x daily for 0 days Quantity: 90 {Strip} Refills: 3 Ordered: 30-Sep-2016 Slarb 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, Latrice Start : 30-Sep-2016 Active Start: 09-30-2016 ReliOn Confirm/m icro Test In Vitro Strip 1 (one) Strip Strip test three times daily for 0 days Quantity: 90 {Strip} Refills: 0 Ordered: 30-Sep-2016 Slarb 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, Latrice Start : 30-Sep-2016 Active Start: 09-30-2016 NovoFine 32G X 6 MM Miscellaneous 1 (one) Misc once daily for 0 days Quantity: 1 {Box} Refills: 5 Ordered: 19-Jan-2019 Reneaa MOLD CLAMPER, Carmen Reneaa MOLD CLAMPER, Carmen Start : 19-Jan-2019 Active Start: 01-19-2019 ReliOn Blood Glu cose Test In Vitro Strip 1 (one) Strip Strip test 3 x daily for 0 days Quantity: 90 {Strip} Refills: 3 Ordered: 30-Sep-2016 Slarb 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, Latrice Start : 30-Sep-2016 Active Start: 09-30-2016 ReliOn Confirm/m icro Test In Vitro Strip 1 (one) Strip Strip test three times daily for 0 days Quantity: 90 {Strip} Refills: 0 Ordered: 30-Sep-2016 Slarb 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, Latrice Start : 30-Sep-2016 Active Start: 09-30-2016 NovoFine 32G X 6 MM Miscellaneous 1 (one) Misc once daily for 0 days Quantity: 1 {Box} Refills: 5 Ordered: 19-Jan-2019 Aaron BRICEÑO, Carmen Aaron MOLD CLAMPER, Carmen Start : 19-Jan-2019 Active Start: 01-19-2019 ReliOn Blood Glu cose Test In Vitro Strip 1 (one) Strip Strip test 3 x daily for 0 days Quantity: 90 {Strip} Refills: 3 Ordered: 30-Sep-2016 Slarb 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, Latrice Start : 30-Sep-2016 Active Start: 09-30-2016 ReliOn Confirm/m icro Test In Vitro Strip 1 (one) Strip Strip test three times daily for 0 days Quantity: 90 {Strip} Refills: 0 Ordered: 30-Sep-2016 Slarb 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, Latrice Start : 30-Sep-2016 Active Start: 09-30-2016 NovoFine 32G X 6 MM Miscellaneous 1 (one) Misc once daily for 0 days Quantity: 1 {Box} Refills: 5 Ordered: 19-Jan-2019 Aaron BRICEÑO, [facility] Start : 19-Jan-2019 Active Start: 01-19-2019 ReliOn Blood Glu cose Test In Vitro Strip 1 (one) Strip Strip test 3 x daily for 0 days Quantity: 90 {Strip} Refills: 3 Ordered: 30-Sep-2016 Slarb 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, Latrice Start : 30-Sep-2016 Active Start: 09-30-2016 ReliOn Confirm/m icro Test In Vitro Strip 1 (one) Strip Strip test three times daily for 0 days Quantity: 90 {Strip} Refills: 0 Ordered: 30-Sep-2016 Slarb 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, Latrice Start : 30-Sep-2016 Active Start: 09-30-2016 [...] 90 {Strip} Refills: 3 Ordered: 30-Sep-2016 Slarb 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, Latrice Start : 30-Sep-2016 Active Start: 09-30-2016 ReliOn Confirm/m icro Test In Vitro Strip 1 (one) Strip Strip test three times daily for 0 days Quantity: 90 {Strip} Refills: 0 Ordered: 30-Sep-2016 Slarb 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, Latrice Start : 30-Sep-2016 Active Start: 09-30-2016 [...] 90 {Strip} Refills: 3 Ordered: 30-Sep-2016 Slarb 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, Latrice Start : 30-Sep-2016 Active Start: 09-30-2016 ReliOn Confirm/m icro Test In Vitro Strip 1 (one) Strip Strip test three times daily for 0 days Quantity: 90 {Strip} Refills: 0 Ordered: 30-Sep-2016 Slarb 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, Latrice Start : 30-Sep-2016 Active Start: 09-30-2016 NovoFine 32G X 6 MM Miscellaneous 1 (one) Misc once daily for 0 days Quantity: 1 {Box} Refills: 5 Ordered: 19-Jan-2019 Aaron MOLD CLAMPER, Marcia Orona [facility], [place] Start : 19-Jan-2019 Active Start: 01-19-2019 ReliOn Blood Glu cose Test In Vitro Strip 1 (one) Strip Strip test 3 x daily for 0 days Quantity: 90 {Strip} Refills: 3 Ordered: 30-Sep-2016 Slarb 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, Latrice Start : 30-Sep-2016 Active Start: 09-30-2016 ReliOn Confirm/m icro Test In Vitro Strip 1 (one) Strip Strip test three times daily for 0 days Quantity: 90 {Strip} Refills: 0 Ordered: 30-Sep-2016 Slarb SLOANE, Latrice Start : 30-Sep-2016 Active Start: 09-30-2016 NovoFine 32G X 6 MM Miscellaneous 1 (one) Misc once daily for 0 days Quantity: 1 {Box} Refills: 5 Ordered: 19-Jan-2019 Reneaa MOLD CLAMPER, [facility] Start : 19-Jan-2019 Active Start: 01-19-2019 ReliOn Blood Glu cose Test In Vitro Strip 1 (one) Strip Strip test 3 x daily for 0 days Quantity: 90 {Strip} Refills: 3 Ordered: 30-Sep-2016 Slarb 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, Latrice Start : 30-Sep-2016 Active Start: 09-30-2016 ReliOn Confirm/m icro Test In Vitro Strip 1 (one) Strip Strip test three times daily for 0 days Quantity: 90 {Strip} Refills: 0 Ordered: 30-Sep-2016 Slarb 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, Latrice Start : 30-Sep-2016 Active Start: 09-30-2016 [...] 90 {Strip} Refills: 3 Ordered: 30-Sep-2016 Slarb 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, Latrice Start : 30-Sep-2016 Active Start: 09-30-2016 ReliOn Confirm/m icro Test In Vitro Strip 1 (one) Strip Strip test three times daily for 0 days Quantity: 90 {Strip} Refills: 0 Ordered: 30-Sep-2016 Slarb 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, Latrice Start : 30-Sep-2016 Active Start: 09-30-2016 NovoFine 32G X 6 MM Miscellaneous 1 (one) Misc once daily for 0 days Quantity: 1 {Box} Refills: 5 Ordered: 19-Jan-2019 Dominiquedari NAVARRO, Marcia Walker MOLD CLAMPER, [place] Start : 19-Jan-2019 Active Start: 01-19-2019 ReliOn Blood Glu cose Test In Vitro Strip 1 (one) Strip Strip test 3 x daily for 0 days Quantity: 90 {Strip} Refills: 3 Ordered: 30-Sep-2016 Slarb 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, Latrice Start : 30-Sep-2016 Active Start: 09-30-2016 ReliOn Confirm/m icro Test In Vitro Strip 1 (one) Strip Strip test three times daily for 0 days Quantity: 90 {Strip} Refills: 0 Ordered: 30-Sep-2016 Slarb 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, Latrice Start : 30-Sep-2016 Active Start: 09-30-2016 NovoFine 32G X 6 MM Miscellaneous 1 (one) Misc once daily for 0 days Quantity: 1 {Box} Refills: 5 Ordered: 19-Jan-2019 Aaron BRICEÑO, [place] Aaron MOLD CLAMPER, [place] Start : 19-Jan-2019 Active Start: 01-19-2019 ReliOn Blood Glu cose Test In Vitro Strip 1 (one) Strip Strip test 3 x daily for 0 days Quantity: 90 {Strip} Refills: 3 Ordered: 30-Sep-2016 Slarb 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, Latrice Start : 30-Sep-2016 Active Start: 09-30-2016 [...] {Box} Refills: 5 Ordered: 19-Jan-2019 Reneatarsha BRICEÑOMarcia MOLD CLAMPER, Marcia Orona Start : 19-Jan-2019 Active Start: [...] 90 {Strip} Refills: 0 Ordered: 30-Sep-2016 Slarb 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, Latrice Start : 30-Sep-2016 Active Start: 09-30-2016 [...] 90 {Strip} Refills: 3 Ordered: 30-Sep-2016 Slarb 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, Latrice Start : 30-Sep-2016 Active Start: 09-30-2016 ReliOn Confirm/m icro Test In Vitro Strip 1 (one) Strip Strip test three times daily for 0 days Quantity: 90 {Strip} Refills: 0 Ordered: 30-Sep-2016 Slarb 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, Latrice Start : 30-Sep-2016 Active Start: 09-30-2016 NovoFine 32G X 6 MM Miscellaneous 1 (one) Misc once daily for 0 days Quantity: 1 {Box} Refills: 5 Ordered: 19-Jan-2019 Marcia Walker Start : 19-Jan-2019 Active Start: 01-19-2019 ReliOn Blood Glu cose Test In Vitro Strip 1 (one) Strip Strip test 3 x daily for 0 days Quantity: 90 {Strip} Refills: 3 Ordered: 30-Sep-2016 Slarb 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, Latrice Start : 30-Sep-2016 Active Start: 09-30-2016 ReliOn Confirm/m icro Test In Vitro Strip 1 (one) Strip Strip test three times daily for 0 days Quantity: 90 {Strip} Refills: 0 Ordered: 30-Sep-2016 Slarb 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, Latrice Start : 30-Sep-2016 Active Start: 09-30-2016 NovoFine 32G X 6 MM Miscellaneous 1 (one) Misc once daily for 0 days Quantity: 1 {Box} Refills: 5 Ordered: 19-Jan-2019 Marcia Walker Start : 19-Jan-2019 Active Start: 01-19-2019 ReliOn Blood Glu cose Test In Vitro Strip 1 (one) Strip Strip test 3 x daily for 0 days Quantity: 90 {Strip} Refills: 3 Ordered: 30-Sep-2016 Slarb 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, Latrice Start : 30-Sep-2016 Active Start: 09-30-2016 ReliOn Confirm/m icro Test In Vitro Strip 1 (one) Strip Strip test three times daily for 0 days Quantity: 90 {Strip} Refills: 0 Ordered: 30-Sep-2016 Slarb 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, Latrice Start : 30-Sep-2016 Active Start: 09-30-2016 ReliOn Blood Glu cose Test In Vitro Strip 1 (one) Strip Strip test 3 x daily for 0 days Quantity: 90 {Strip} Refills: 3 Ordered: 30-Sep-2016 Slarb 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, Latrice Start : 30-Sep-2016 Active Start: 09-30-2016 ReliOn Confirm/m icro Test In Vitro Strip 1 (one) Strip Strip test three times daily for 0 days Quantity: 90 {Strip} Refills: 0 Ordered: 30-Sep-2016 Slarb 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, Latrice Start : 30-Sep-2016 Active Start: 09-30-2016 [...] Note Facility 05-31-2025 Radiology Diagnostic study note [facility] Imaging Services [address] [place], [place] [id number] Spine Cervical without Contras MR#: [id number] Acct: [id number] Name: KAREN VILLALOBOS Rep #: [id number] : 1945 F 79 From: Maureen Marie MD PCP: ADRIANO Burgess Status: REG E R Study:Spine Cervical without Contras Date of Exam: 05/31/25 Exam# [id number] Ordering Dr: Kelvin Butt DO EXAM: CT [...] 2. Degenerative changes as above. Reading Location: [facility] CC: HORSE SHOER-C Karen Alcazar; Dr. Kelvin Butt, ~ Ski Maker Wood: Signed [facility] 05-31-2025 Radiology Diagnostic study note [facility] Imaging Services [address] [place], [place] [address] Sinus/Facial Bone MR#: [id number] Acct: [id number] Name: KAREN VILLALOBOS Rep #: [id number] : 1945 F 79 From: Sebastian Gomez MD PCP: ADRIANO Burgess Status: REG E R Study:Sinus/Facial Bone Date of Exam: Exam# [id number] Ordering Dr: Kelvin Butt DO PROCEDURE: SINUS/FACIAL [...] no underlying fracture. Reading Location: [place] CC: HORSE SHOER-C Karen Alcazar; DO Anthony Keith Ski Maker Wood: Signed [facility] 05-31-2025 Radiology Diagnostic study note [facility] Imaging Services [address] [place], [place] [address] Shoulder min 2 Views MR#: [id number] Acct: [id number] Name: KAREN VILLALOBOS Rep #: [id number] : 1945 F 79 From: Sebastian Gomez MD PCP: ADRIANO Burgess Status: REG E R Study:Shoulder min 2 Views Date of Exam: 05/31/25 Exam# [id number] Ordering Dr: Kelvin Butt DO PROCEDURE: SHOULDER [...] ADRIANO Alcazar; Dr. Kelvin Butt DO ~ Ski Maker Wood: Signed [facility] 05-31-2025 Radiology Diagnostic study note [facility] Imaging Services [address] [place] [id number] Brain/Head without Contrast MR#: [id number] Acct: [id number] Name: KAREN VILLALOBOS Rep #: [id number] : 1945 F 79 From: Sebastian Gomez MD PCP: ADRIANO Burgess Status: REG E R Study:Brain/Head without Contrast Date of Exa m: 05/31/25 Exam# [id number] Ordering Dr: Kelvin Butt DO EXAM: NONCONTRAST [...] ADRIANO Alcazar; Dr. Kelvin Butt, DO ~ Ski Maker Wood: Signed [facility] 11-01-2024 Telephone encounter Note A copy of this note was faxed to Karen Alcazar CNP. Shavonne Zuluaga LPN [facility] 11-01-2024 Miscellaneous Notes A copy of [...] with a physician. Thank you. Celena Kaba APRN.MOLD CLAMPER documented in this encounter [facility] 11-01-2024 Telephone encounter Note Received a [...] with a physician. Thank you. Celena Kaba APRN.MOLD CLAMPER [facility] Work Phone: Evaluation note No assessment inform ation available [facility] Work Phone: Instructions Name Patient Instructions Indication:Acute sinusitis Start:25-Feb-20 Instruction Type:Provider Instructions for Treatment How to Access Health Information Online using Patient Portal and 3rd [employer] Apps Indication:Acute sinusitis Start:25-Feb-20 Instruction Type:Patient [...] Instructions for Treatment DISCONTINUED - LIPID PANEL (79150) Indication:Hypercholesteremia Start:13-Oct-20 Instruction Type:Patient Education DISCONTINUED - Glucose, PP/2 Hour (98257) Indication:Family history of diabetes mellitus Start:13-Oct-20 Instruction Type:Patient Education DISCONTINUED - Hemoglobin Glyclated (HGB A1C) (13554) Indication:Family history of diabetes mellitus Start:13-Oct-20 Instruction [...] tion Online using Patient Portal and 3rd [employer] Apps Indication:Nonsmoker Start:19-Mar-2021 Instruction Type:Patient Education Patient Instructions Indication:Acute sinusitis Start:24-Feb-2021 Instruction Type:Provider Instructions for Treatment How to Access Health Informa tion Online using Patient Portal and 3rd [employer] Apps Indication:Acute sinusitis Start:24-Feb-2021 Instruction Type:Patient [...] for Treatment DISCONTINUED - LIPID PANEL ( 35863) Indication:Hypercholesteremia Start:13-Oct-2016 Instruction Type:Patient Education DISCONTINUED - Glucose, PP/2 Hour (45767) Indication:Family history of diabetes mellitus Start:13-Oct-2016 Instruction Type:Patient Education DISCONTINUED - Hemoglobin Glyclated (HGB A1C) (17829) Indication:Family history of diabetes mellitus Start:13-Oct-2016 Instruction [...] for Treatment How to Access Health Informa [employer] Online using Patient Portal and 3rd [employer] Apps Indication:Nonsmoker Start:19-Mar-2021 Instruction Type:Patient Education Patient Instructions Indication:Acute sinusitis Start:24-Feb-2021 Instruction Type:Provider Instructions for Treatment How to Access Health Informa tion Online using Patient Portal and [employer] Apps Indication:Acute sinusitis Start:24-Feb-2021 Instruction Type:Patient Education [...] for Treatment DISCONTINUED - LIPID PANEL ( 55968) Indication:Hypercholesteremia Start:13-Oct-2016 Instruction Type:Patient Education DISCONTINUED - Glucose, PP/2 Hour (15812) Indication:Family history of diabetes mellitus Start:13-Oct-2016 Instruction Type:Patient Education DISCONTINUED - Hemoglobin Glyclated (HGB A1C) (30276) Indication:Family history of diabetes mellitus Start:13-Oct-2016 Instruction [...] Instructions for Treatment How to Access Health [employer] using Patient Portal and [employer] Apps Indication:Nonsmoker Start:19-Mar-2021 Instruction Type:Patient Education Patient Instructions Indication:Acute sinusitis Start:24-Feb-2021 Instruction Type:Provider Instructions for Treatment How to Access Health Informa tion Online using Patient Portal and 3rd [employer] Apps Indication:Acute sinusitis Start:24-Feb-2021 Instruction Type:Patient [...] for Treatment DISCONTINUED - LIPID PANEL ( 51495) Indication:Hypercholesteremia Start:13-Oct-2016 Instruction Type:Patient Education DISCONTINUED - Glucose, PP/2 Hour (68123) Indication:Family history of diabetes mellitus Start:13-Oct-2016 Instruction Type:Patient Education DISCONTINUED - Hemoglobin Glyclated (HGB A1C) (79190) Indication:Family history of diabetes mellitus Start:13-Oct-2016 Instruction Type:Patient Education How to access health informa [employer] online Indication:Uncontrolled type 2 diabetes mellitus without [...] for Treatment How to access health informa [employer] online Indication:Uncontrolled type 2 diabetes mellitus without [...] Instructions for Treatment How to Access Health [employer] Online using Patient Portal and [employer] Apps Indication:Nonsmoker Start:19-Mar-2021 Instruction Type:Patient Education Patient Instructions Indication:Acute sinusitis Start:24-Feb-2021 Instruction Type:Provider Instructions for Treatment How to Access Health Informa tion Online using Patient Portal and 3rd [employer] Apps Indication:Acute sinusitis Start:24-Feb-2021 Instruction Type:Patient [...] for Treatment DISCONTINUED - LIPID PANEL ( 15715) Indication:Hypercholesteremia Start:13-Oct-2016 Instruction Type:Patient Education DISCONTINUED - Glucose, PP/2 Hour (66436) Indication:Family history of diabetes mellitus Start:13-Oct-2016 Instruction Type:Patient Education DISCONTINUED - Hemoglobin Glyclated (HGB A1C) (55333) Indication:Family history of diabetes mellitus Start:13-Oct-2016 Instruction [...] Informa tion Online using Patient Portal and [employer] Apps Indication:Nonsmoker Start:19-Mar-2021 Instruction Type:Patient Education Patient Instructions Indication:Acute sinusitis Start:24-Feb-2021 Instruction Type:Provider Instructions for Treatment How to Access Health Informa tion Online using Patient Portal and [employer] Apps Indication:Acute sinusitis Start:24-Feb-2021 Instruction Type:Patient [...] for Treatment DISCONTINUED - LIPID PANEL ( 99932) Indication:Hypercholesteremia Start:13-Oct-2016 Instruction Type:Patient Education DISCONTINUED - Glucose, PP/2 Hour (01352) Indication:Family history of diabetes mellitus Start:13-Oct-2016 Instruction Type:Patient Education DISCONTINUED - Hemoglobin Glyclated (HGB A1C) (66983) Indication:Family history of diabetes mellitus Start:13-Oct-2016 Instruction Type:Patient Education How to access health [employer] online Indication:Uncontrolled type 2 diabetes mellitus without complication, without long-term current use of insulin Start:13-Oct-2016 Instruction Type:Patient Education How to access health informa [employer] online - Detail Indication:Uncontrolled type 2 diabetes mellitus without complication, without long-term current use of insulin Start:13-Oct-2016 Instruction Type:Patient Education Patient Instructions Indication:Uncontrolled type 2 diabetes mellitus without complication, without long-term current use of insulin Start:13-Oct-2016 Instruction Type:Provider Instructions for Treatment Patient Instructions Indication:Nonsmoker Start:30-Sep-2016 Instruction Type:Provider Instructions for Treatment How to access health [employer] online Indication:Uncontrolled type 2 diabetes mellitus without complication, without long-term current use of insulin Start:30-Sep-2016 Instruction Type:Patient Education How to access health informa [employer] online - Detail Indication:Uncontrolled type 2 diabetes [...] Type:Provider Instructions for Treatment How to Access [employer] using Patient Portal and Mlog Apps Indication:Diabetes mellitus type II, controlled, with no complications (Renamed from Controlled type 2 diabetes mellitus without complication) Start:18-Nov-2021 Instruction Type:Patient Education Patient Instructions Indication:Vitamin D deficiency Start:13-Aug-2021 Instruction Type:Provider Instructions for Treatment How to Access Health Informa tion Online using Patient Portal and 3rd [employer] Apps Indication:BMI 34.0-34.9,adult Start:13-Aug-2021 Instruction Type:Patient Education Patient Instructions Indication:Temporary low platelet count Start:19-Mar-2021 Instruction Type:Provider Instructions for Treatment How to Access Health Informa tion Online using Patient Portal and 3rd [employer] Apps Indication:Nonsmoker Start:19-Mar-2021 Instruction Type:Patient Education Patient Instructions Indication:Acute sinusitis Start:24-Feb-2021 Instruction Type:Provider Instructions for Treatment How to Access Health Informa tion Online using Patient Portal and [employer]rd [employer] Apps Indication:Acute sinusitis Start:24-Feb-2021 Instruction Type:Patient [...] Instructions for Treatment How to access health [employer] online Indication:Uncontrolled type 2 diabetes mellitus without complication, without long-term current use of insulin Start:09-Dec-2016 Instruction Type:Patient Education How to access health informa [employer] online - Detail Indication:Uncontrolled type 2 diabetes mellitus without complication, without long-term current use of insulin Start:09-Dec-2016 Instruction Type:Patient Education Patient Instructions Indication:Uncontrolled type 2 diabetes mellitus without complication, without long-term current use of insulin Start:09-Dec-2016 Instruction Type:Provider Instructions for Treatment DISCONTINUED - LIPID PANEL ( 16337) Indication:Hypercholesteremia Start:13-Oct-2016 Instruction Type:Patient Education DISCONTINUED - Glucose, PP/2 Hour (79792) Indication:Family history of diabetes mellitus Start:13-Oct-2016 Instruction Type:Patient Education DISCONTINUED - Hemoglobin Glyclated (HGB A1C) (76228) Indication:Family history of diabetes mellitus Start:13-Oct-2016 Instruction Type:Patient Education How to access health [employer] online Indication:Uncontrolled type 2 diabetes mellitus without complication, without long-term current use of insulin Start:13-Oct-2016 Instruction Type:Patient Education How to access health informa [employer] online - Detail Indication:Uncontrolled type 2 diabetes mellitus without complication, without long-term current use of insulin Start:13-Oct-2016 Instruction Type:Patient Education Patient Instructions Indication:Uncontrolled type 2 diabetes mellitus without complication, without long-term current use of insulin Start:13-Oct-2016 Instruction Type:Provider Instructions for Treatment Patient Instructions Indication:Nonsmoker Start:30-Sep-2016 Instruction Type:Provider Instructions for Treatment How to access health [employer] Indication:Uncontrolled type 2 diabetes mellitus without complication, without long-term current use of insulin Start:30-Sep-2016 Instruction Type:Patient Education How to access health informa [employer] online - Detail Indication:Uncontrolled type 2 diabetes [...] for Treatment DISCONTINUED - LIPID PANEL ( 29512) Indication:Hypercholesteremia Start:13-Oct-2016 Instruction Type:Patient Education DISCONTINUED - Glucose, PP/2 Hour (07276) Indication:Family history of diabetes mellitus Start:13-Oct-2016 Instruction Type:Patient Education DISCONTINUED - Hemoglobin Glyclated (HGB A1C) (30365) Indication:Family history of diabetes mellitus Start:13-Oct-2016 Instruction Type:Patient Education How to access health [employer] online Indication:Uncontrolled type 2 diabetes mellitus without [...] for Treatment How to access health informa [employer] online Indication:Uncontrolled type 2 diabetes mellitus without [...] Instructions for Treatment How to Access Health [employer] Online using Patient Portal and [employer]rd [employer] Apps Indication:Diabetes mellitus type II, controlled, with no complications (Renamed from Controlled type 2 diabetes mellitus without complication) Start:27-Feb-2022 Instruction Type:Patient Education Patient Instructions Indication:BMI 33.0-33.9,adult Start:18-Nov-2021 Instruction Type:Provider Instructions for Treatment How to Access Health Informa tion Online using Patient Portal and [employer]rd [employer] Apps Indication:Diabetes mellitus type II, controlled, with no complications (Renamed from Controlled type 2 diabetes mellitus without complication) Start:18-Nov-2021 Instruction Type:Patient Education Patient Instructions Indication:Vitamin D deficiency Start:13-Aug-2021 Instruction Type:Provider Instructions for Treatment How to Access Health Informa tion Online using Patient Portal and [employer] Apps Indication:BMI 34.0-34.9,adult Start:13-Aug-2021 Instruction Type:Patient Education Patient Instructions Indication:Temporary low platelet count Start:19-Mar-2021 Instruction Type:Provider Instructions for Treatment How to Access Health Informa tion Online using Patient Portal and [employer] Apps Indication:Nonsmoker Start:19-Mar-2021 Instruction Type:Patient Education Patient Instructions Indication:Acute sinusitis Start:24-Feb-2021 Instruction Type:Provider Instructions for Treatment How to Access Health Informa tion Online using Patient Portal and [employer] Apps Indication:Acute sinusitis Start:24-Feb-2021 Instruction Type:Patient Education [...] for Treatment How to access health informa [employer] online Indication:Uncontrolled type 2 diabetes mellitus without complication, without long-term current use of insulin Start:09-Dec-2016 Instruction Type:Patient Education How to access health informa [employer] online - Detail Indication:Uncontrolled type 2 diabetes mellitus without complication, without long-term current use of insulin Start:09-Dec-2016 Instruction Type:Patient Education Patient Instructions Indication:Uncontrolled type 2 diabetes mellitus without complication, without long-term current use of insulin Start:09-Dec-2016 Instruction Type:Provider Instructions for Treatment DISCONTINUED - LIPID PANEL ( 10773) Indication:Hypercholesteremia Start:13-Oct-2016 Instruction Type:Patient Education DISCONTINUED - Glucose, PP/2 Hour (46289) Indication:Family history of diabetes mellitus Start:13-Oct-2016 Instruction Type:Patient Education DISCONTINUED - Hemoglobin Glyclated (HGB A1C) (10213) Indication:Family history of diabetes mellitus Start:13-Oct-2016 Instruction Type:Patient Education How to access health [employer] online Indication:Uncontrolled type 2 diabetes mellitus without complication, without long-term current use of insulin Start:13-Oct-2016 Instruction Type:Patient Education How to access health informa [employer] online - Detail Indication:Uncontrolled type 2 diabetes mellitus without complication, without long-term current use of insulin Start:13-Oct-2016 Instruction Type:Patient Education Patient Instructions Indication:Uncontrolled type 2 diabetes mellitus without complication, without long-term current use of insulin Start:13-Oct-2016 Instruction Type:Provider Instructions for Treatment Patient Instructions Indication:Nonsmoker Start:30-Sep-2016 Instruction Type:Provider Instructions for Treatment How to access [employer] Indication:Uncontrolled type 2 diabetes mellitus without complication, [...] tion Online using Patient Portal and [employer]rd [employer] Apps Indication:Diabetes mellitus type II, controlled, with no complications (Renamed from Controlled type 2 diabetes mellitus without complication) Start:27-Feb-2022 Instruction Type:Patient Education Patient Instructions Indication:BMI 33.0-33.9,adult Start:18-Nov-2021 Instruction Type:Provider Instructions for Treatment How to Access Health Informa tion Online using Patient Portal and [employer] Apps Indication:Diabetes mellitus type II, controlled, with no complications (Renamed from Controlled type 2 diabetes mellitus without complication) Start:18-Nov-2021 Instruction Type:Patient Education Patient Instructions Indication:Vitamin D deficiency Start:13-Aug-2021 Instruction Type:Provider Instructions for Treatment How to Access Health Informa tion Online using Patient Portal and [employer] Apps Indication:BMI 34.0-34.9,adult Start:13-Aug-2021 Instruction Type:Patient Education Patient Instructions Indication:Temporary low platelet count Start:19-Mar-2021 Instruction Type:Provider Instructions for Treatment How to Access Health Informa tion Online using Patient Portal and [employer] Apps Indication:Nonsmoker Start:19-Mar-2021 Instruction Type:Patient Education Patient Instructions Indication:Acute sinusitis Start:24-Feb-2021 Instruction Type:Provider Instructions for Treatment How to Access Health Informa tion Online using Patient Portal and [employer] Apps Indication:Acute sinusitis Start:24-Feb-2021 Instruction Type:Patient [...] for Treatment DISCONTINUED - LIPID PANEL ( [id number]) Indication:Hypercholesteremia Start:13-Oct-2016 Instruction Type:Patient Education DISCONTINUED - Glucose, PP/2 Hour (59860) Indication:Family history of diabetes mellitus Start:13-Oct-2016 Instruction Type:Patient Education DISCONTINUED - Hemoglobin Glyclated (HGB A1C) (49809) Indication:Family history of diabetes mellitus Start:13-Oct-2016 Instruction [...] Informa tion Online using Patient Portal and [employer] Apps Indication:Diabetes mellitus type II, controlled, with no complications (Renamed from Controlled type 2 diabetes mellitus without complication) Start:27-Feb-2022 Instruction Type:Patient Education Patient Instructions Indication:BMI 33.0-33.9,adult Start:18-Nov-2021 Instruction Type:Provider Instructions for Treatment How to Access Health Informa tion Online using Patient Portal and [employer] Apps Indication:Diabetes mellitus type II, controlled, with no complications (Renamed from Controlled type 2 diabetes mellitus without complication) Start:18-Nov-2021 Instruction Type:Patient Education Patient Instructions Indication:Vitamin D deficiency Start:13-Aug-2021 Instruction Type:Provider Instructions for Treatment How to Access Health Informa tion Online using Patient Portal and [employer] Apps Indication:BMI 34.0-34.9,adult Start:13-Aug-2021 Instruction Type:Patient Education Patient Instructions Indication:Temporary low platelet count Start:19-Mar-2021 Instruction Type:Provider Instructions for Treatment How to Access Health Informa tion Online using Patient Portal and [employer] Apps Indication:Nonsmoker Start:19-Mar-2021 Instruction Type:Patient Education Patient Instructions Indication:Acute sinusitis Start:24-Feb-2021 Instruction Type:Provider Instructions for Treatment How to Access Health Informa tion Online using Patient Portal and [employer] Apps Indication:Acute sinusitis Start:24-Feb-2021 Instruction Type:Patient Education [...] Instructions for Treatment How to access health [employer] Indication:Uncontrolled type 2 diabetes mellitus without complication, without long-term current use of insulin Start:09-Dec-2016 Instruction Type:Patient Education How to access health informa [employer] online - Detail Indication:Uncontrolled type 2 diabetes mellitus without complication, without long-term current use of insulin Start:09-Dec-2016 Instruction Type:Patient Education Patient Instructions Indication:Uncontrolled type 2 diabetes mellitus without complication, without long-term current use of insulin Start:09-Dec-2016 Instruction Type:Provider Instructions for Treatment DISCONTINUED - LIPID PANEL ( [id number]) Indication:Hypercholesteremia Start:13-Oct-2016 Instruction Type:Patient Education DISCONTINUED - Glucose, PP/2 Hour (03987) Indication:Family history of diabetes mellitus Start:13-Oct-2016 Instruction Type:Patient Education DISCONTINUED - Hemoglobin Glyclated (HGB A1C) (65560) Indication:Family history of diabetes mellitus Start:13-Oct-2016 Instruction Type:Patient Education How to access health [employer] online Indication:Uncontrolled type 2 diabetes mellitus without complication, without long-term current use of insulin Start:13-Oct-2016 Instruction Type:Patient Education How to access health informa [employer] online - Detail Indication:Uncontrolled type 2 diabetes mellitus without complication, without long-term current use of insulin Start:13-Oct-2016 Instruction Type:Patient Education Patient Instructions Indication:Uncontrolled type 2 diabetes mellitus without complication, without long-term current use of insulin Start:13-Oct-2016 Instruction Type:Provider Instructions for Treatment Patient Instructions Indication:Nonsmoker Start:30-Sep-2016 Instruction Type:Provider Instructions for Treatment How to access health [employer] online Indication:Uncontrolled type 2 diabetes mellitus without complication, without long-term current use of insulin Start:30-Sep-2016 Instruction Type:Patient Education How to access health informa [employer] online - Detail Indication:Uncontrolled type 2 diabetes [...] tion Online using Patient Portal and [employer] Apps Indication:Nonsmoker Start:26-May-2022 Instruction Type:Patient Education Patient Instructions Indication:Diabetes mellitus type II, controlled, with no complications (Renamed from Controlled type 2 diabetes mellitus without complication) Start:27-Feb-2022 Instruction Type:Provider Instructions for Treatment How to Access Health Informa tion Online using Patient Portal and [employer] Apps Indication:Diabetes mellitus type II, controlled, with no complications (Renamed from Controlled type 2 diabetes mellitus without complication) Start:27-Feb-2022 Instruction Type:Patient Education Patient Instructions Indication:BMI 33.0-33.9,adult Start:18-Nov-2021 Instruction Type:Provider Instructions for Treatment How to Access Health Informa tion Online using Patient Portal and [employer] Apps Indication:Diabetes mellitus type II, controlled, with no complications (Renamed from Controlled type 2 diabetes mellitus without complication) Start:18-Nov-2021 Instruction Type:Patient Education Patient Instructions Indication:Vitamin D deficiency Start:13-Aug-2021 Instruction Type:Provider Instructions for Treatment How to Access Health Informa tion Online using Patient Portal and [employer] Apps Indication:BMI 34.0-34.9,adult Start:13-Aug-2021 Instruction Type:Patient Education Patient Instructions Indication:Temporary low platelet count Start:19-Mar-2021 Instruction Type:Provider Instructions for Treatment How to Access Health Informa tion Online using Patient Portal and [employer] Apps Indication:Nonsmoker Start:19-Mar-2021 Instruction Type:Patient Education Patient Instructions Indication:Acute sinusitis Start:24-Feb-2021 Instruction Type:Provider Instructions for Treatment How to Access Health Informa tion Online using Patient Portal and [employer] Apps Indication:Acute sinusitis Start:24-Feb-2021 Instruction Type:Patient [...] for Treatment DISCONTINUED - LIPID PANEL ( [id number]) Indication:Hypercholesteremia Start:13-Oct-2016 Instruction Type:Patient Education DISCONTINUED - Glucose, PP/2 Hour (05365) Indication:Family history of diabetes mellitus Start:13-Oct-2016 Instruction Type:Patient Education DISCONTINUED - Hemoglobin Glyclated (HGB A1C) (53093) Indication:Family history of diabetes mellitus Start:13-Oct-2016 Instruction [...] Informa tion Online using Patient Portal and [employer] Apps Indication:Nonsmoker Start:26-May-2022 Instruction Type:Patient Education Patient Instructions Indication:Diabetes mellitus type II, controlled, with no complications (Renamed from Controlled type 2 diabetes mellitus without complication) Start:27-Feb-2022 Instruction Type:Provider Instructions for Treatment How to Access Health Informa tion Online using Patient Portal and [employer] Apps Indication:Diabetes mellitus type II, controlled, with no complications (Renamed from Controlled type 2 diabetes mellitus without complication) Start:27-Feb-2022 Instruction Type:Patient Education Patient Instructions Indication:BMI 33.0-33.9,adult Start:18-Nov-2021 Instruction Type:Provider Instructions for Treatment How to Access Health Informa tion Online using Patient Portal and [employer] Apps Indication:Diabetes mellitus type II, controlled, with no complications (Renamed from Controlled type 2 diabetes mellitus without complication) Start:18-Nov-2021 Instruction Type:Patient Education Patient Instructions Indication:Vitamin D deficiency Start:13-Aug-2021 Instruction Type:Provider Instructions for Treatment How to Access Health Informa tion Online using Patient Portal and [employer] Apps Indication:BMI 34.0-34.9,adult Start:13-Aug-2021 Instruction Type:Patient Education Patient Instructions Indication:Temporary low platelet count Start:19-Mar-2021 Instruction Type:Provider Instructions for Treatment How to Access Health Informa tion Online using Patient Portal and [employer] Apps Indication:Nonsmoker Start:19-Mar-2021 Instruction Type:Patient Education Patient Instructions Indication:Acute sinusitis Start:24-Feb-2021 Instruction Type:Provider Instructions for Treatment How to Access Health Informa tion Online using Patient Portal and [employer] Apps Indication:Acute sinusitis Start:24-Feb-2021 Instruction Type:Patient Education [...] for Treatment How to access health informa [employer] online Indication:Uncontrolled type 2 diabetes mellitus without complication, without long-term current use of insulin Start:09-Dec-2016 Instruction Type:Patient Education How to access health informa [employer] online - Detail Indication:Uncontrolled type 2 diabetes mellitus without complication, without long-term current use of insulin Start:09-Dec-2016 Instruction Type:Patient Education Patient Instructions Indication:Uncontrolled type 2 diabetes mellitus without complication, without long-term current use of insulin Start:09-Dec-2016 Instruction Type:Provider Instructions for Treatment DISCONTINUED - LIPID PANEL ( [id number]) Indication:Hypercholesteremia Start:13-Oct-2016 Instruction Type:Patient Education DISCONTINUED - Glucose, PP/2 Hour (38580) Indication:Family history of diabetes mellitus Start:13-Oct-2016 Instruction Type:Patient Education DISCONTINUED - Hemoglobin Glyclated (HGB A1C) (77028) Indication:Family history of diabetes mellitus Start:13-Oct-2016 Instruction Type:Patient Education How to access health [employer] online Indication:Uncontrolled type 2 diabetes mellitus without complication, without long-term current use of insulin Start:13-Oct-2016 Instruction Type:Patient Education How to access health informa [employer] online - Detail Indication:Uncontrolled type 2 diabetes mellitus without complication, without long-term current use of insulin Start:13-Oct-2016 Instruction Type:Patient Education Patient Instructions Indication:Uncontrolled type 2 diabetes mellitus without complication, without long-term current use of insulin Start:13-Oct-2016 Instruction Type:Provider Instructions for Treatment Patient Instructions Indication:Nonsmoker Start:30-Sep-2016 Instruction Type:Provider Instructions for Treatment How to access [employer] Indication:Uncontrolled type 2 diabetes mellitus without complication, [...] tion Online using Patient Portal and [employer] Apps Indication:Nonsmoker Start:07-Jul-2022 Instruction Type:Patient Education Patient Instructions Indication:Nonsmoker Start:26-May-2022 Instruction Type:Provider Instructions for Treatment How to Access Health Informa tion Online using Patient Portal and [employer] Apps Indication:Nonsmoker Start:26-May-2022 Instruction Type:Patient Education Patient Instructions Indication:Diabetes mellitus type II, controlled, with no complications (Renamed from Controlled type 2 diabetes mellitus without complication) Start:27-Feb-2022 Instruction Type:Provider Instructions for Treatment How to Access Health Informa tion Online using Patient Portal and [employer] Apps Indication:Diabetes mellitus type II, controlled, with no complications (Renamed from Controlled type 2 diabetes mellitus without complication) Start:27-Feb-2022 Instruction Type:Patient Education Patient Instructions Indication:BMI 33.0-33.9,adult Start:18-Nov-2021 Instruction Type:Provider Instructions for Treatment How to Access Health Informa tion Online using Patient Portal and [employer] Apps Indication:Diabetes mellitus type II, controlled, with no complications (Renamed from Controlled type 2 diabetes mellitus without complication) Start:18-Nov-2021 Instruction Type:Patient Education Patient Instructions Indication:Vitamin D deficiency Start:13-Aug-2021 Instruction Type:Provider Instructions for Treatment How to Access Health Informa tion Online using Patient Portal and [employer] Apps Indication:BMI 34.0-34.9,adult Start:13-Aug-2021 Instruction Type:Patient Education Patient Instructions Indication:Temporary low platelet count Start:19-Mar-2021 Instruction Type:Provider Instructions for Treatment How to Access Health Informa tion Online using Patient Portal and [employer] Apps Indication:Nonsmoker Start:19-Mar-2021 Instruction Type:Patient Education Patient Instructions Indication:Acute sinusitis Start:24-Feb-2021 Instruction Type:Provider Instructions for Treatment How to Access Health Informa tion Online using Patient Portal and [employer] Apps Indication:Acute sinusitis Start:24-Feb-2021 Instruction Type:Patient [...] for Treatment DISCONTINUED - LIPID PANEL ( [id number]) Indication:Hypercholesteremia Start:13-Oct-2016 Instruction Type:Patient Education DISCONTINUED - Glucose, PP/2 Hour (82963) Indication:Family history of diabetes mellitus Start:13-Oct-2016 Instruction Type:Patient Education DISCONTINUED - Hemoglobin Glyclated (HGB A1C) (05766) Indication:Family history of diabetes mellitus Start:13-Oct-2016 Instruction [...] Informa tion Online using Patient Portal and [employer] Apps Indication:BMI 33.0-33.9,adult Start:12-Aug-2022 Instruction Type:Patient Education Patient Instructions Start:07-Jul-2022 Instruction Type:Provider Instructions for Treatment How to Access Health Informa tion Online using Patient Portal and [employer] Apps Start:07-Jul-2022 Instruction Type:Patient Education Patient Instructions Start:26-May-2022 Instruction Type:Provider Instructions for Treatment How to Access Health Informa tion Online using Patient Portal and [employer] Apps Start:26-May-2022 Instruction Type:Patient Education Patient Instructions Start:27-Feb-2022 Instruction Type:Provider Instructions for Treatment How to Access Health Informa tion Online using Patient Portal and [employer] Apps Start:27-Feb-2022 Instruction Type:Patient Education Patient Instructions Indication:BMI 33.0-33.9,adult Start:18-Nov-2021 Instruction Type:Provider Instructions for Treatment How to Access Health Informa tion Online using Patient Portal and [employer] Apps Start:18-Nov-2021 Instruction Type:Patient Education Patient Instructions Indication:Vitamin D deficiency Start:13-Aug-2021 Instruction Type:Provider Instructions for Treatment How to Access Health Informa tion Online using Patient Portal and [employer] Apps Indication:BMI 34.0-34.9,adult Start:13-Aug-2021 Instruction Type:Patient Education Patient Instructions Indication:Temporary low platelet count Start:19-Mar-2021 Instruction Type:Provider Instructions for Treatment How to Access Health Informa tion Online using Patient Portal and [employer] Start:19-Mar-2021 Instruction Type:Patient Education Patient Instructions Indication:Acute sinusitis Start:24-Feb-2021 Instruction Type:Provider Instructions for Treatment How to Access Health Informa tion Online using Patient Portal and [employer] Apps Indication:Acute sinusitis Start:24-Feb-2021 Instruction Type:Patient [...] for Treatment DISCONTINUED - LIPID PANEL ( [id number]) Indication:Hypercholesteremia Start:13-Oct-2016 Instruction Type:Patient Education DISCONTINUED - Glucose, PP/2 Hour (46356) Indication:Family history of diabetes mellitus Start:13-Oct-2016 Instruction Type:Patient Education DISCONTINUED - Hemoglobin Glyclated (HGB A1C) (67667) Indication:Family history of diabetes mellitus Start:13-Oct-2016 Instruction [...] Informa tion Online using Patient Portal and [employer] Indication:Diabetes mellitus type II, controlled, with no [...] Informa tion Online using Patient Portal and [employer] Apps Indication:BMI 33.0-33.9,adult Start:12-Aug-2022 Instruction Type:Patient Education Patient Instructions Indication:Nonsmoker Start:07-Jul-2022 Instruction Type:Provider Instructions for Treatment How to Access Health Informa tion Online using Patient Portal and [employer] Apps Indication:Nonsmoker Start:07-Jul-2022 Instruction Type:Patient Education Patient Instructions Indication:Nonsmoker Start:26-May-2022 Instruction Type:Provider Instructions for Treatment How to Access Health Informa tion Online using Patient Portal and [employer] Apps Indication:Nonsmoker Start:26-May-2022 Instruction Type:Patient Education Patient Instructions Indication:Diabetes mellitus type II, controlled, with no complications (Renamed from Controlled type 2 diabetes mellitus without complication) Start:27-Feb-2022 Instruction Type:Provider Instructions for Treatment How to Access Health Informa tion Online using Patient Portal and [employer] Apps Indication:Diabetes mellitus type II, controlled, with no complications (Renamed from Controlled type 2 diabetes mellitus without complication) Start:27-Feb-2022 Instruction Type:Patient Education Patient Instructions Indication:BMI 33.0-33.9,adult Start:18-Nov-2021 Instruction Type:Provider Instructions for Treatment How to Access Health Informa tion Online using Patient Portal and [employer] Apps Indication:Diabetes mellitus type II, controlled, with no complications (Renamed from Controlled type 2 diabetes mellitus without complication) Start:18-Nov-2021 Instruction Type:Patient Education Patient Instructions Indication:Vitamin D deficiency Start:13-Aug-2021 Instruction Type:Provider Instructions for Treatment How to Access Health Informa tion Online using Patient Portal and [employer] Apps Indication:BMI 34.0-34.9,adult Start:13-Aug-2021 Instruction Type:Patient Education Patient Instructions Indication:Temporary low platelet count Start:19-Mar-2021 Instruction Type:Provider Instructions for Treatment How to Access Health Informa tion Online using Patient Portal and [employer] Apps Indication:Nonsmoker Start:19-Mar-2021 Instruction Type:Patient Education Patient Instructions Indication:Acute sinusitis Start:24-Feb-2021 Instruction Type:Provider Instructions for Treatment How to Access Health Informa tion Online using Patient Portal and [employer] Apps Indication:Acute sinusitis Start:24-Feb-2021 Instruction Type:Patient [...] for Treatment DISCONTINUED - LIPID PANEL ( [id number]) Indication:Hypercholesteremia Start:13-Oct-2016 Instruction Type:Patient Education DISCONTINUED - Glucose, PP/2 Hour (65800) Indication:Family history of diabetes mellitus Start:13-Oct-2016 Instruction Type:Patient Education DISCONTINUED - Hemoglobin Glyclated (HGB A1C) (00929) Indication:Family history of diabetes mellitus Start:13-Oct-2016 Instruction [...] Informa tion Online using Patient Portal and [employer] Indication:Diabetes mellitus type II, controlled, with no [...] Informa tion Online using Patient Portal and [employer] Indication:BMI 33.0-33.9,adult Start:12-Aug-2022 Instruction Type:Patient Education Patient Instructions Indication:Nonsmoker Start:07-Jul-2022 Instruction Type:Provider Instructions for Treatment How to Access Health Informa tion Online using Patient Portal and [employer] Apps Indication:Nonsmoker Start:07-Jul-2022 Instruction Type:Patient Education Patient Instructions Indication:Nonsmoker Start:26-May-2022 Instruction Type:Provider Instructions for Treatment How to Access Health Informa tion Online using Patient Portal and [employer] Indication:Nonsmoker Start:26-May-2022 Instruction Type:Patient Education Patient Instructions Indication:Diabetes mellitus type II, controlled, with no complications (Renamed from Controlled type 2 diabetes mellitus without complication) Start:27-Feb-2022 Instruction Type:Provider Instructions for Treatment How to Access Health Informa tion Online using Patient Portal and [employer] Indication:Diabetes mellitus type II, controlled, with no complications (Renamed from Controlled type 2 diabetes mellitus without complication) Start:27-Feb-2022 Instruction Type:Patient Education Patient Instructions Indication:BMI 33.0-33.9,adult Start:18-Nov-2021 Instruction Type:Provider Instructions for Treatment How to Access Health Informa tion Online using Patient Portal and [employer] Indication:Diabetes mellitus type II, controlled, with no complications (Renamed from Controlled type 2 diabetes mellitus without complication) Start:18-Nov-2021 Instruction Type:Patient Education Patient Instructions Indication:Vitamin D deficiency Start:13-Aug-2021 Instruction Type:Provider Instructions for Treatment How to Access Health Informa tion Online using Patient Portal and [employer] Indication:BMI 34.0-34.9,adult Start:13-Aug-2021 Instruction Type:Patient Education Patient Instructions Indication:Temporary low platelet count Start:19-Mar-2021 Instruction Type:Provider Instructions for Treatment How to Access Health Informa tion Online using Patient Portal and [employer] Indication:Nonsmoker Start:19-Mar-2021 Instruction Type:Patient Education Patient Instructions Indication:Acute sinusitis Start:24-Feb-2021 Instruction Type:Provider Instructions for Treatment How to Access Health Informa tion Online using Patient Portal and [employer] Indication:Acute sinusitis Start:24-Feb-2021 Instruction Type:Patient [...] Instructions for Treatment How to access health [employer] online Indication:Diabetes mellitus type II, controlled, with [...] for Treatment How to access health informa [employer] online Indication:Uncontrolled type 2 diabetes mellitus without [...] for Treatment DISCONTINUED - LIPID PANEL ( [id number]) Indication:Hypercholesteremia Start:13-Oct-2016 Instruction Type:Patient Education DISCONTINUED - Glucose, PP/2 Hour (30080) Indication:Family history of diabetes mellitus Start:13-Oct-2016 Instruction Type:Patient Education DISCONTINUED - Hemoglobin Glyclated (HGB A1C) (19903) Indication:Family history of diabetes mellitus Start:13-Oct-2016 Instruction [...] Informa tion Online using Patient Portal and [employer] Indication:Diabetes mellitus type II, controlled, with no [...] Informa tion Online using Patient Portal and [employer] Indication:BMI 33.0-33.9,adult Start:12-Aug-2022 Instruction Type:Patient Education Patient Instructions Indication:Nonsmoker Start:07-Jul-2022 Instruction Type:Provider Instructions for Treatment How to Access Health Informa tion Online using Patient Portal and [employer] Indication:Nonsmoker Start:07-Jul-2022 Instruction Type:Patient Education Patient Instructions Indication:Nonsmoker Start:26-May-2022 Instruction Type:Provider Instructions for Treatment How to Access Health Informa tion Online using Patient Portal and [employer] Indication:Nonsmoker Start:26-May-2022 Instruction Type:Patient Education Patient Instructions Indication:Diabetes mellitus type II, controlled, with no complications (Renamed from Controlled type 2 diabetes mellitus without complication) Start:27-Feb-2022 Instruction Type:Provider Instructions for Treatment How to Access Health Informa tion Online using Patient Portal and [employer] Indication:Diabetes mellitus type II, controlled, with no complications (Renamed from Controlled type 2 diabetes mellitus without complication) Start:27-Feb-2022 Instruction Type:Patient Education Patient Instructions Indication:BMI 33.0-33.9,adult Start:18-Nov-2021 Instruction Type:Provider Instructions for Treatment How to Access Health Informa tion Online using Patient Portal and [employer] Indication:Diabetes mellitus type II, controlled, with no complications (Renamed from Controlled type 2 diabetes mellitus without complication) Start:18-Nov-2021 Instruction Type:Patient Education Patient Instructions Indication:Vitamin D deficiency Start:13-Aug-2021 Instruction Type:Provider Instructions for Treatment How to Access Health Informa tion Online using Patient Portal and [employer] Indication:BMI 34.0-34.9,adult Start:13-Aug-2021 Instruction Type:Patient Education Patient Instructions Indication:Temporary low platelet count Start:19-Mar-2021 Instruction Type:Provider Instructions for Treatment How to Access Health Informa tion Online using Patient Portal and [employer] Apps Indication:Nonsmoker Start:19-Mar-2021 Instruction Type:Patient Education Patient Instructions Indication:Acute sinusitis Start:24-Feb-2021 Instruction Type:Provider Instructions for Treatment How to Access Health Informa tion Online using Patient Portal and [employer] Apps Indication:Acute sinusitis Start:24-Feb-2021 Instruction Type:Patient [...] Instructions for Treatment How to access health [employer] online Indication:Diabetes mellitus type II, controlled, with [...] for Treatment How to access health informa [employer] online Indication:Uncontrolled type 2 diabetes mellitus without [...] for Treatment DISCONTINUED - LIPID PANEL ( [id number]) Indication:Hypercholesteremia Start:13-Oct-2016 Instruction Type:Patient Education DISCONTINUED - Glucose, PP/2 Hour ([id number]) Indication:Family history of diabetes mellitus Start:13-Oct-2016 Instruction Type:Patient Education DISCONTINUED - Hemoglobin Glyclated (HGB A1C) ([id number]) Indication:Family history of diabetes mellitus Start:13-Oct-2016 Instruction [...] Informa tion Online using Patient Portal and [employer] Indication:Diabetes mellitus type II, controlled, with no [...] Informa tion Online using Patient Portal and [employer] Indication:BMI 33.0-33.9,adult Start:12-Aug-2022 Instruction Type:Patient Education Patient Instructions Indication:Nonsmoker Start:07-Jul-2022 Instruction Type:Provider Instructions for Treatment How to Access Health Informa tion Online using Patient Portal and [employer] Indication:Nonsmoker Start:07-Jul-2022 Instruction Type:Patient Education Patient Instructions Indication:Nonsmoker Start:26-May-2022 Instruction Type:Provider Instructions for Treatment How to Access Health Informa tion Online using Patient Portal and [employer] Indication:Nonsmoker Start:26-May-2022 Instruction Type:Patient Education Patient Instructions Indication:Diabetes mellitus type II, controlled, with no complications (Renamed from Controlled type 2 diabetes mellitus without complication) Start:27-Feb-2022 Instruction Type:Provider Instructions for Treatment How to Access Health Informa tion Online using Patient Portal and [employer] Apps Indication:Diabetes mellitus type II, controlled, with no complications (Renamed from Controlled type 2 diabetes mellitus without complication) Start:27-Feb-2022 Instruction Type:Patient Education Patient Instructions Indication:BMI 33.0-33.9,adult Start:18-Nov-2021 Instruction Type:Provider Instructions for Treatment How to Access Health Informa tion Online using Patient Portal and [employer] Indication:Diabetes mellitus type II, controlled, with no complications (Renamed from Controlled type 2 diabetes mellitus without complication) Start:18-Nov-2021 Instruction Type:Patient Education Patient Instructions Indication:Vitamin D deficiency Start:13-Aug-2021 Instruction Type:Provider Instructions for Treatment How to Access Health Informa tion Online using Patient Portal and [employer] Indication:BMI 34.0-34.9,adult Start:13-Aug-2021 Instruction Type:Patient Education Patient Instructions Indication:Temporary low platelet count Start:19-Mar-2021 Instruction Type:Provider Instructions for Treatment How to Access Health Informa tion Online using Patient Portal and [employer] Indication:Nonsmoker Start:19-Mar-2021 Instruction Type:Patient Education Patient Instructions Indication:Acute sinusitis Start:24-Feb-2021 Instruction Type:Provider Instructions for Treatment How to Access Health Informa tion Online using Patient Portal and [employer] Indication:Acute sinusitis Start:24-Feb-2021 Instruction Type:Patient [...] Instructions for Treatment How to access health [employer] online Indication:Diabetes mellitus type II, controlled, with [...] for Treatment DISCONTINUED - LIPID PANEL ( [id number]) Indication:Hypercholesteremia Start:13-Oct-2016 Instruction Type:Patient Education DISCONTINUED - Glucose, PP/2 Hour (40699) Indication:Family history of diabetes mellitus Start:13-Oct-2016 Instruction Type:Patient Education DISCONTINUED - Hemoglobin Glyclated (HGB A1C) ([id number]) Indication:Family history of diabetes mellitus Start:13-Oct-2016 Instruction [...] Informa tion Online using Patient Portal and [employer] Indication:Diabetes mellitus type II, controlled, with [...] Informa tion Online using Patient Portal and [employer] Indication:BMI 33.0-33.9,adult Start:12-Aug-2022 Instruction Type:Patient Education Patient Instructions Indication:Nonsmoker Start:07-Jul-2022 Instruction Type:Provider Instructions for Treatment How to Access Health Informa tion Online using Patient Portal and [employer] Indication:Nonsmoker Start:07-Jul-2022 Instruction Type:Patient Education Patient Instructions Indication:Nonsmoker Start:26-May-2022 Instruction Type:Provider Instructions for Treatment How to Access Health Informa tion Online using Patient Portal and [employer] Indication:Nonsmoker Start:26-May-2022 Instruction Type:Patient Education Patient Instructions Indication:Diabetes mellitus type II, controlled, with no complications (Renamed from Controlled type 2 diabetes mellitus without complication) Start:27-Feb-2022 Instruction Type:Provider Instructions for Treatment How to Access Health Informa tion Online using Patient Portal and [employer] Indication:Diabetes mellitus type II, controlled, with no complications (Renamed from Controlled type 2 diabetes mellitus without complication) Start:27-Feb-2022 Instruction Type:Patient Education Patient Instructions Indication:BMI 33.0-33.9,adult Start:18-Nov-2021 Instruction Type:Provider Instructions for Treatment How to Access Health Informa tion Online using Patient Portal and [employer] Indication:Diabetes mellitus type II, controlled, with no complications (Renamed from Controlled type 2 diabetes mellitus without complication) Start:18-Nov-2021 Instruction Type:Patient Education Patient Instructions Indication:Vitamin D deficiency Start:13-Aug-2021 Instruction Type:Provider Instructions for Treatment How to Access Health Informa tion Online using Patient Portal and [employer] Indication:BMI 34.0-34.9,adult Start:13-Aug-2021 Instruction Type:Patient Education Patient Instructions Indication:Temporary low platelet count Start:19-Mar-2021 Instruction Type:Provider Instructions for Treatment How to Access Health Informa tion Online using Patient Portal and [employer] Indication:Nonsmoker Start:19-Mar-2021 Instruction Type:Patient Education Patient Instructions Indication:Acute sinusitis Start:24-Feb-2021 Instruction Type:Provider Instructions for Treatment How to Access Health Informa tion Online using Patient Portal and [employer] Indication:Acute sinusitis Start:24-Feb-2021 Instruction Type:Patient [...] for Treatment How to access health informa [employer] online Indication:Diabetes mellitus type II, controlled, with [...] for Treatment DISCONTINUED - LIPID PANEL ( [id number]) Indication:Hypercholesteremia Start:13-Oct-2016 Instruction Type:Patient Education DISCONTINUED - Glucose, PP/2 Hour ([id number]) Indication:Family history of diabetes mellitus Start:13-Oct-2016 Instruction Type:Patient Education DISCONTINUED - Hemoglobin Glyclated (HGB A1C) ([id number]) Indication:Family history of diabetes mellitus Start:13-Oct-2016 Instruction [...] Informa tion Online using Patient Portal and [employer] Indication:Type 2 diabetes mellitus with hemoglobin A1c goal of less than 7.0% Start:19-Jan-2023 Instruction Type:Patient Education How to Access Health Informa tion Online using Patient Portal and [employer] Indication:Type 2 diabetes mellitus with hemoglobin A1c goal of less than 7.0% Start:22-Sep-2022 Instruction Type:Patient Education Patient Instructions Indication:Type 2 diabetes mellitus with hemoglobin A1c goal of less than 7.0% Start:22-Sep-2022 Instruction Type:Provider Instructions for Treatment Patient Instructions Indication:BMI 33.0-33.9,adult Start:12-Aug-2022 Instruction Type:Provider Instructions for Treatment How to Access Health Informa tion Online using Patient Portal and [employer] Indication:BMI 33.0-33.9,adult Start:12-Aug-2022 Instruction Type:Patient Education Patient Instructions Indication:Nonsmoker Start:07-Jul-2022 Instruction Type:Provider Instructions for Treatment How to Access Health Informa tion Online using Patient Portal and [employer] Indication:Nonsmoker Start:07-Jul-2022 Instruction Type:Patient Education Patient Instructions Indication:Nonsmoker Start:26-May-2022 Instruction Type:Provider Instructions for Treatment How to Access Health Informa tion Online using Patient Portal and [employer] Indication:Nonsmoker Start:26-May-2022 Instruction Type:Patient Education Patient Instructions Indication:Type 2 diabetes mellitus with hemoglobin A1c goal of less than 7.0% Start:27-Feb-2022 Instruction Type:Provider Instructions for Treatment How to Access Health Informa tion Online using Patient Portal and [employer] Indication:Type 2 diabetes mellitus with hemoglobin A1c goal of less than 7.0% Start:27-Feb-2022 Instruction Type:Patient Education Patient Instructions Indication:BMI 33.0-33.9,adult Start:18-Nov-2021 Instruction Type:Provider Instructions for Treatment How to Access Health Informa tion Online using Patient Portal and [employer] Indication:Type 2 diabetes mellitus with hemoglobin A1c goal of less than 7.0% Start:18-Nov-2021 Instruction Type:Patient Education Patient Instructions Indication:Vitamin D deficiency Start:13-Aug-2021 Instruction Type:Provider Instructions for Treatment How to Access Health Informa tion Online using Patient Portal and [employer] Indication:BMI 34.0-34.9,adult Start:13-Aug-2021 Instruction Type:Patient Education Patient Instructions Indication:Temporary low platelet count Start:19-Mar-2021 Instruction Type:Provider Instructions for Treatment How to Access Health Informa tion Online using Patient Portal and [employer] Indication:Nonsmoker Start:19-Mar-2021 Instruction Type:Patient Education Patient Instructions Indication:Acute sinusitis Start:24-Feb-2021 Instruction Type:Provider Instructions for Treatment How to Access Health Informa tion Online using Patient Portal and [employer] Indication:Acute sinusitis Start:24-Feb-2021 Instruction Type:Patient [...] for Treatment How to access health informa [employer] online Indication:Uncontrolled type 2 diabetes mellitus without [...] for Treatment How to access health informa [employer] online Indication:Uncontrolled type 2 diabetes mellitus without [...] for Treatment DISCONTINUED - LIPID PANEL ( [id number]) Indication:Hypercholesteremia Start:13-Oct-2016 Instruction Type:Patient Education DISCONTINUED - Glucose, PP/2 Hour ([id number]) Indication:Family history of diabetes mellitus Start:13-Oct-2016 Instruction Type:Patient Education DISCONTINUED - Hemoglobin Glyclated (HGB A1C) ([id number]) Indication:Family history of diabetes mellitus Start:13-Oct-2016 Instruction [...] tion Online using Patient Portal and [employer] Indication:Type 2 diabetes mellitus with hemoglobin A1c goal of less than 7.0% Start:19-Jan-2023 Instruction Type:Patient Education How to Access Health Informa tion Online using Patient Portal and [employer] Indication:Type 2 diabetes mellitus with hemoglobin A1c goal of less than 7.0% Start:22-Sep-2022 Instruction Type:Patient Education Patient Instructions Indication:Type 2 diabetes mellitus with hemoglobin A1c goal of less than 7.0% Start:22-Sep-2022 Instruction Type:Provider Instructions for Treatment Patient Instructions Indication:BMI 33.0-33.9,adult Start:12-Aug-2022 Instruction Type:Provider Instructions for Treatment How to Access Health Informa tion Online using Patient Portal and [employer] Indication:BMI 33.0-33.9,adult Start:12-Aug-2022 Instruction Type:Patient Education Patient Instructions Indication:Nonsmoker Start:07-Jul-2022 Instruction Type:Provider Instructions for Treatment How to Access Health Informa tion Online using Patient Portal and [employer] Indication:Nonsmoker Start:07-Jul-2022 Instruction Type:Patient Education Patient Instructions Indication:Nonsmoker Start:26-May-2022 Instruction Type:Provider Instructions for Treatment How to Access Health Informa tion Online using Patient Portal and [employer] Indication:Nonsmoker Start:26-May-2022 Instruction Type:Patient Education Patient Instructions Indication:Type 2 diabetes mellitus with hemoglobin A1c goal of less than 7.0% Start:27-Feb-2022 Instruction Type:Provider Instructions for Treatment How to Access Health Informa tion Online using Patient Portal and [employer] Indication:Type 2 diabetes mellitus with hemoglobin A1c goal of less than 7.0% Start:27-Feb-2022 Instruction Type:Patient Education Patient Instructions Indication:BMI 33.0-33.9,adult Start:18-Nov-2021 Instruction Type:Provider Instructions for Treatment How to Access Health Informa tion Online using Patient Portal and [employer] Indication:Type 2 diabetes mellitus with hemoglobin A1c goal of less than 7.0% Start:18-Nov-2021 Instruction Type:Patient Education Patient Instructions Indication:Vitamin D deficiency Start:13-Aug-2021 Instruction Type:Provider Instructions for Treatment How to Access Health Informa tion Online using Patient Portal and [employer] Indication:BMI 34.0-34.9,adult Start:13-Aug-2021 Instruction Type:Patient Education Patient Instructions Indication:Temporary low platelet count Start:19-Mar-2021 Instruction Type:Provider Instructions for Treatment How to Access Health Informa tion Online using Patient Portal and [employer] Indication:Nonsmoker Start:19-Mar-2021 Instruction Type:Patient Education Patient Instructions Indication:Acute sinusitis Start:24-Feb-2021 Instruction Type:Provider Instructions for Treatment How to Access Health Informa tion Online using Patient Portal and [employer] Indication:Acute sinusitis Start:24-Feb-2021 Instruction Type:Patient [...] for Treatment DISCONTINUED - LIPID PANEL ( [id number]) Indication:Hypercholesteremia Start:13-Oct-2016 Instruction Type:Patient Education DISCONTINUED - Glucose, PP/2 Hour (35607) Indication:Family history of diabetes mellitus Start:13-Oct-2016 Instruction Type:Patient Education DISCONTINUED - Hemoglobin Glyclated (HGB A1C) ([id number]) Indication:Family history of diabetes mellitus Start:13-Oct-2016 Instruction Type:Patient Education How to access health informa [employer] online Indication:Uncontrolled type 2 diabetes mellitus without [...] tion Online using Patient Portal and [employer] Indication:Type 2 diabetes mellitus with hemoglobin A1c goal of less than 7.0% Start:19-Jan-2023 Instruction Type:Patient Education How to Access Health Informa tion Online using Patient Portal and [employer] Indication:Type 2 diabetes mellitus with hemoglobin A1c goal of less than 7.0% Start:22-Sep-2022 Instruction Type:Patient Education Patient Instructions Indication:Type 2 diabetes mellitus with hemoglobin A1c goal of less than 7.0% Start:22-Sep-2022 Instruction Type:Provider Instructions for Treatment Patient Instructions Indication:BMI 33.0-33.9,adult Start:12-Aug-2022 Instruction Type:Provider Instructions for Treatment How to Access Health Informa tion Online using Patient Portal and [employer] Indication:BMI 33.0-33.9,adult Start:12-Aug-2022 Instruction Type:Patient Education Patient Instructions Indication:Nonsmoker Start:07-Jul-2022 Instruction Type:Provider Instructions for Treatment How to Access Health Informa tion Online using Patient Portal and [employer] Indication:Nonsmoker Start:07-Jul-2022 Instruction Type:Patient Education Patient Instructions Indication:Nonsmoker Start:26-May-2022 Instruction Type:Provider Instructions for Treatment How to Access Health Informa tion Online using Patient Portal and [employer] Indication:Nonsmoker Start:26-May-2022 Instruction Type:Patient Education Patient Instructions Indication:Type 2 diabetes mellitus with hemoglobin A1c goal of less than 7.0% Start:27-Feb-2022 Instruction Type:Provider Instructions for Treatment How to Access Health Informa tion Online using Patient Portal and [employer] Indication:Type 2 diabetes mellitus with hemoglobin A1c goal of less than 7.0% Start:27-Feb-2022 Instruction Type:Patient Education Patient Instructions Indication:BMI 33.0-33.9,adult Start:18-Nov-2021 Instruction Type:Provider Instructions for Treatment How to Access Health Informa tion Online using Patient Portal and [employer] Indication:Type 2 diabetes mellitus with hemoglobin A1c goal of less than 7.0% Start:18-Nov-2021 Instruction Type:Patient Education Patient Instructions Indication:Vitamin D deficiency Start:13-Aug-2021 Instruction Type:Provider Instructions for Treatment How to Access Health Informa tion Online using Patient Portal and [employer] Indication:BMI 34.0-34.9,adult Start:13-Aug-2021 Instruction Type:Patient Education Patient Instructions Indication:Temporary low platelet count Start:19-Mar-2021 Instruction Type:Provider Instructions for Treatment How to Access Health Informa tion Online using Patient Portal and [employer] Indication:Nonsmoker Start:19-Mar-2021 Instruction Type:Patient Education Patient Instructions Indication:Acute sinusitis Start:24-Feb-2021 Instruction Type:Provider Instructions for Treatment How to Access Health Informa tion Online using Patient Portal and [employer] Indication:Acute sinusitis Start:24-Feb-2021 Instruction Type:Patient Education [...] for Treatment How to access health informa [employer] online Indication:Uncontrolled type 2 diabetes mellitus without [...] for Treatment DISCONTINUED - LIPID PANEL ( [id number]) Indication:Hypercholesteremia Start:13-Oct-2016 Instruction Type:Patient Education DISCONTINUED - Glucose, PP/2 Hour (55406) Indication:Family history of diabetes mellitus Start:13-Oct-2016 Instruction Type:Patient Education DISCONTINUED - Hemoglobin Glyclated (HGB A1C) (83077) Indication:Family history of diabetes mellitus Start:13-Oct-2016 Instruction Type:Patient Education How to access health informa [employer] online Indication:Uncontrolled type 2 diabetes mellitus without [...] for Treatment How to access health informa [employer] online Indication:Uncontrolled type 2 diabetes mellitus without complication, without long-term current use of insulin Start:30-Sep-2016 Instruction Type:Patient Education How to access health informa [employer] online - Detail Indication:Uncontrolled type 2 diabetes [...] tion Online using Patient Portal and [employer] Indication:Type 2 diabetes mellitus with hemoglobin A1c goal of less than 7.0% Start:19-Jan-2023 Instruction Type:Patient Education How to Access Health Informa tion Online using Patient Portal and [employer] Indication:Type 2 diabetes mellitus with hemoglobin A1c goal of less than 7.0% Start:22-Sep-2022 Instruction Type:Patient Education Patient Instructions Indication:Type 2 diabetes mellitus with hemoglobin A1c goal of less than 7.0% Start:22-Sep-2022 Instruction Type:Provider Instructions for Treatment Patient Instructions Indication:BMI 33.0-33.9,adult Start:12-Aug-2022 Instruction Type:Provider Instructions for Treatment How to Access Health Informa tion Online using Patient Portal and [employer] Indication:BMI 33.0-33.9,adult Start:12-Aug-2022 Instruction Type:Patient Education Patient Instructions Indication:Nonsmoker Start:07-Jul-2022 Instruction Type:Provider Instructions for Treatment How to Access Health Informa tion Online using Patient Portal and [employer] Indication:Nonsmoker Start:07-Jul-2022 Instruction Type:Patient Education Patient Instructions Indication:Nonsmoker Start:26-May-2022 Instruction Type:Provider Instructions for Treatment How to Access Health Informa tion Online using Patient Portal and [employer] Indication:Nonsmoker Start:26-May-2022 Instruction Type:Patient Education Patient Instructions Indication:Type 2 diabetes mellitus with hemoglobin A1c goal of less than 7.0% Start:27-Feb-2022 Instruction Type:Provider Instructions for Treatment How to Access Health Informa tion Online using Patient Portal and [employer] Indication:Type 2 diabetes mellitus with hemoglobin A1c goal of less than 7.0% Start:27-Feb-2022 Instruction Type:Patient Education Patient Instructions Indication:BMI 33.0-33.9,adult Start:18-Nov-2021 Instruction Type:Provider Instructions for Treatment How to Access Health Informa tion Online using Patient Portal and [employer] Indication:Type 2 diabetes mellitus with hemoglobin A1c goal of less than 7.0% Start:18-Nov-2021 Instruction Type:Patient Education Patient Instructions Indication:Vitamin D deficiency Start:13-Aug-2021 Instruction Type:Provider Instructions for Treatment How to Access Health Informa tion Online using Patient Portal and [employer] Indication:BMI 34.0-34.9,adult Start:13-Aug-2021 Instruction Type:Patient Education Patient Instructions Indication:Temporary low platelet count Start:19-Mar-2021 Instruction Type:Provider Instructions for Treatment How to Access Health Informa tion Online using Patient Portal and [employer] Indication:Nonsmoker Start:19-Mar-2021 Instruction Type:Patient Education Patient Instructions Indication:Acute sinusitis Start:24-Feb-2021 Instruction Type:Provider Instructions for Treatment How to Access Health Informa tion Online using Patient Portal and [employer] Indication:Acute sinusitis Start:24-Feb-2021 Instruction Type:Patient Education [...] for Treatment DISCONTINUED - LIPID PANEL ( [id number]) Indication:Hypercholesteremia Start:13-Oct-2016 Instruction Type:Patient Education DISCONTINUED - Glucose, PP/2 Hour ([id number]) Indication:Family history of diabetes mellitus Start:13-Oct-2016 Instruction Type:Patient Education DISCONTINUED - Hemoglobin Glyclated (HGB A1C) ([id number]) Indication:Family history of diabetes mellitus Start:13-Oct-2016 Instruction [...] Instructions for Treatment How to Access Health [employer] Online using Patient Portal and [employer] Indication:BMI 32.0-32.9,adult Start:20-Jul-2023 Instruction Type:Patient Education Patient Instructions Indication:Type 2 diabetes mellitus with hemoglobin A1c goal of less than 7.0% Start:19-Jan-2023 Instruction Type:Provider Instructions for Treatment How to Access Health Informa tion Online using Patient Portal and [employer] Indication:Type 2 diabetes mellitus with hemoglobin A1c goal of less than 7.0% Start:19-Jan-2023 Instruction Type:Patient Education How to Access Health Informa tion Online using Patient Portal and [employer] Indication:Type 2 diabetes mellitus with hemoglobin A1c goal of less than 7.0% Start:22-Sep-2022 Instruction Type:Patient Education Patient Instructions Indication:Type 2 diabetes mellitus with hemoglobin A1c goal of less than 7.0% Start:22-Sep-2022 Instruction Type:Provider Instructions for Treatment Patient Instructions Indication:BMI 33.0-33.9,adult Start:12-Aug-2022 Instruction Type:Provider Instructions for Treatment How to Access Health Informa tion Online using Patient Portal and [employer] Indication:BMI 33.0-33.9,adult Start:12-Aug-2022 Instruction Type:Patient Education Patient Instructions Indication:Nonsmoker Start:07-Jul-2022 Instruction Type:Provider Instructions for Treatment How to Access Health Informa tion Online using Patient Portal and [employer]rd [employer] Indication:Nonsmoker Start:07-Jul-2022 Instruction Type:Patient Education Patient Instructions Indication:Nonsmoker Start:26-May-2022 Instruction Type:Provider Instructions for Treatment How to Access Health Informa tion Online using Patient Portal and [employer]rd [employer] Apps Indication:Nonsmoker Start:26-May-2022 Instruction Type:Patient Education Patient Instructions Indication:Type 2 diabetes mellitus with hemoglobin A1c goal of less than 7.0% Start:27-Feb-2022 Instruction Type:Provider Instructions for Treatment How to Access Health Informa tion Online using Patient Portal and [employer]rd [employer] Indication:Type 2 diabetes mellitus with hemoglobin A1c goal of less than 7.0% Start:27-Feb-2022 Instruction Type:Patient Education Patient Instructions Indication:BMI 33.0-33.9,adult Start:18-Nov-2021 Instruction Type:Provider Instructions for Treatment How to Access Health Informa tion Online using Patient Portal and [employer]rd [employer] Indication:Type 2 diabetes mellitus with hemoglobin A1c goal of less than 7.0% Start:18-Nov-2021 Instruction Type:Patient Education Patient Instructions Indication:Vitamin D deficiency Start:13-Aug-2021 Instruction Type:Provider Instructions for Treatment How to Access Health Informa tion Online using Patient Portal and [employer]rd [employer] Indication:BMI 34.0-34.9,adult Start:13-Aug-2021 Instruction Type:Patient Education Patient Instructions Indication:Temporary low platelet count Start:19-Mar-2021 Instruction Type:Provider Instructions for Treatment How to Access Health Informa tion Online using Patient Portal and [employer]rd [employer] Apps Indication:Nonsmoker Start:19-Mar-2021 Instruction Type:Patient Education Patient Instructions Indication:Acute sinusitis Start:24-Feb-2021 Instruction Type:Provider Instructions for Treatment How to Access Health Informa tion Online using Patient Portal and [employer]rd [employer] Indication:Acute sinusitis Start:24-Feb-2021 Instruction Type:Patient [...] for Treatment DISCONTINUED - LIPID PANEL ( [id number]) Indication:Hypercholesteremia Start:13-Oct-2016 Instruction Type:Patient Education DISCONTINUED - Glucose, PP/2 Hour (79170) Indication:Family history of diabetes mellitus Start:13-Oct-2016 Instruction Type:Patient Education DISCONTINUED - Hemoglobin Glyclated (HGB A1C) (57098) Indication:Family history of diabetes mellitus Start:13-Oct-2016 Instruction [...] Informa tion Online using Patient Portal and [employer] Indication:BMI 32.0-32.9,adult Start:20-Jul-2023 Instruction Type:Patient Education Patient Instructions Indication:Type 2 diabetes mellitus with hemoglobin A1c goal of less than 7.0% Start:19-Jan-2023 Instruction Type:Provider Instructions for Treatment How to Access Health Informa tion Online using Patient Portal and [employer]rd [employer] Indication:Type 2 diabetes mellitus with hemoglobin A1c goal of less than 7.0% Start:19-Jan-2023 Instruction Type:Patient Education How to Access Health Informa tion Online using Patient Portal and [employer]rd [employer] Apps Indication:Type 2 diabetes mellitus with hemoglobin A1c goal of less than 7.0% Start:22-Sep-2022 Instruction Type:Patient Education Patient Instructions Indication:Type 2 diabetes mellitus with hemoglobin A1c goal of less than 7.0% Start:22-Sep-2022 Instruction Type:Provider Instructions for Treatment Patient Instructions Indication:BMI 33.0-33.9,adult Start:12-Aug-2022 Instruction Type:Provider Instructions for Treatment How to Access Health Informa tion Online using Patient Portal and [employer]rd [employer] Indication:BMI 33.0-33.9,adult Start:12-Aug-2022 Instruction Type:Patient Education Patient Instructions Indication:Nonsmoker Start:07-Jul-2022 Instruction Type:Provider Instructions for Treatment How to Access Health Informa tion Online using Patient Portal and [employer] Apps Indication:Nonsmoker Start:07-Jul-2022 Instruction Type:Patient Education Patient Instructions Indication:Nonsmoker Start:26-May-2022 Instruction Type:Provider Instructions for Treatment How to Access Health Informa tion Online using Patient Portal and [employer] Indication:Nonsmoker Start:26-May-2022 Instruction Type:Patient Education Patient Instructions Indication:Type 2 diabetes mellitus with hemoglobin A1c goal of less than 7.0% Start:27-Feb-2022 Instruction Type:Provider Instructions for Treatment How to Access Health Informa tion Online using Patient Portal and [employer] Indication:Type 2 diabetes mellitus with hemoglobin A1c goal of less than 7.0% Start:27-Feb-2022 Instruction Type:Patient Education Patient Instructions Indication:BMI 33.0-33.9,adult Start:18-Nov-2021 Instruction Type:Provider Instructions for Treatment How to Access Health Informa tion Online using Patient Portal and [employer] Indication:Type 2 diabetes mellitus with hemoglobin A1c goal of less than 7.0% Start:18-Nov-2021 Instruction Type:Patient Education Patient Instructions Indication:Vitamin D deficiency Start:13-Aug-2021 Instruction Type:Provider Instructions for Treatment How to Access Health Informa tion Online using Patient Portal and [employer] Indication:BMI 34.0-34.9,adult Start:13-Aug-2021 Instruction Type:Patient Education Patient Instructions Indication:Temporary low platelet count Start:19-Mar-2021 Instruction Type:Provider Instructions for Treatment How to Access Health Informa tion Online using Patient Portal and [employer] Apps Indication:Nonsmoker Start:19-Mar-2021 Instruction Type:Patient Education Patient Instructions Indication:Acute sinusitis Start:24-Feb-2021 Instruction Type:Provider Instructions for Treatment How to Access Health Informa tion Online using Patient Portal and [employer] Apps Indication:Acute sinusitis Start:24-Feb-2021 Instruction Type:Patient [...] for Treatment DISCONTINUED - LIPID PANEL ( [id number]) Indication:Hypercholesteremia Start:13-Oct-2016 Instruction Type:Patient Education DISCONTINUED - Glucose, PP/2 Hour ([id number]) Indication:Family history of diabetes mellitus Start:13-Oct-2016 Instruction Type:Patient Education DISCONTINUED - Hemoglobin Glyclated (HGB A1C) ([id number]) Indication:Family history of diabetes mellitus Start:13-Oct-2016 Instruction Type:Patient Education How to access health [employer] Indication:Uncontrolled type 2 diabetes mellitus without complication, [...] Instructions for Treatment How to access health [employer] Indication:Uncontrolled type 2 diabetes mellitus without complication, [...] for referral (narrative)No reason for referral information availableWG[facility] Work Phone: Summary Purpose Family History [...] Records Found Name Dates Details Immunization Registry [place] - Effective on 03/19/2021. Expiration date unspecified Effective:19-Mar-2021 Name Dates Details Immunization Registry [place] - Effective on 03/19/2021. Expiration date unspecified Effective:19-Mar-2021 Name Dates Details Immunization Registry [place] - Effective on 03/19/2021. Expiration date unspecified Effective:19-Mar-2021 Name Dates Details Immunization Registry [place] - Effective on 03/19/2021. Expiration date unspecified Effective:19-Mar-2021 Name Dates Details Immunization Registry [place] - Effective on 03/19/2021. Expiration date unspecified Effective:19-Mar-2021 Name Dates Details Immunization Registry [place] - Effective on 03/19/2021. Expiration date unspecified Effective:19-Mar-2021 Name Dates Details Immunization Registry [place] - Effective on 03/19/2021. Expiration date unspecified Effective:19-Mar-2021 Name Dates Details Immunization Registry [place] - Effective on 03/19/2021. Expiration date unspecified Effective:19-Mar-2021 Advance Directive Response Recorded Date/ Time Living Will No May 05, 2019 1 2:35am Power of Educational Diagnostician No May 05, 2019 12:35am Name Dates Details Immunization Registry [place] - Effective on 03/19/2021. Expiration date unspecified Effective:19-Mar-2021 Name Dates Details Immunization Registry [place] - Effective on 03/19/2021. Expiration date unspecified Effective:19-Mar-2021 Name Dates Details Immunization Registry [place] - Effective on 03/19/2021. Expiration date unspecified Effective:19-Mar-2021 Name Dates Details Immunization Registry [place] - Effective on 03/19/2021. Expiration date unspecified Effective:19-Mar-2021 Name Dates Details Immunization Registry [place] - Effective on 03/19/2021. Expiration date unspecified Effective:19-Mar-2021 Name Dates Details Immunization Registry [place] - Effective on 03/19/2021. Expiration date unspecified Effective:19-Mar-2021 Name Dates Details Immunization Registry [place] - Effective on 03/19/2021. Expiration date unspecified Effective:19-Mar-2021 Name Dates Details Immunization Registry [place] - Effective on 03/19/2021. Expiration date unspecified Effective:19-Mar-2021 Name Dates Details Immunization Registry [place] - Effective on 03/19/2021. Expiration date unspecified Effective:19-Mar-2021 Name Dates Details Immunization Registry [place] - Effective on 03/19/2021. Expiration date unspecified Effective:19-Mar-2021 Name Dates Details Immunization Registry [place] - Effective on 03/19/2021. Expiration date unspecified Effective:19-Mar-2021 Name Dates Details Immunization Registry [place] - Effective on 03/19/2021. Expiration date unspecified Effective:19-Mar-2021 Name Dates Details Immunization Registry [place] - Effective on 03/19/2021. Expiration date unspecified Effective:19-Mar-2021 Advance Directive Response Recorded Date/ Time Do you have a Healthcare Power of Educational Diagnostician? Yes May 31, 2025 10:43am Instructions Name [...] Hypercholesteremia : DISCONT INUED - LIPID PANEL ([id number]) Indication:Hypercholesteremia Family history of diabetes m claudine : DISCONTINUED - Glucose, PP/2 Hour (13159) Indication:Family history of diabetes mellitus Family history of diabetes m ellitus : DISCONTINUED - Hemoglobin Glyclated (HGB A1C) (64752) Indication:Family history of diabetes mellitus Hypothyroid : [...] Hypercholesteremia : DISCONT INUED - LIPID PANEL ([id number]) Indication:Hypercholesteremia Family history of diabetes m ellitus : DISCONTINUED - Glucose, PP/2 Hour (83937) Indication:Family history of diabetes mellitus Family history of diabetes m ellitus : DISCONTINUED - Hemoglobin Glyclated (HGB A1C) (55556) Indication:Family history of diabetes mellitus Hypothyroid : [...] Hypercholesteremia : DISCONT INUED - LIPID PANEL ([id number]) Indication:Hypercholesteremia Family history of diabetes m ellitus : DISCONTINUED - Glucose, PP/2 Hour (41506) Indication:Family history of diabetes mellitus Family history of diabetes m ellitus : DISCONTINUED - Hemoglobin Glyclated (HGB A1C) (59522) Indication:Family history of diabetes mellitus Family history [...] Hypercholesteremia : DISCONT INUED - LIPID PANEL ([id number]) Indication:Hypercholesteremia Family history of diabetes m ellitus : DISCONTINUED - Glucose, PP/2 Hour (26099) Indication:Family history of diabetes mellitus Family history of diabetes m ellitus : DISCONTINUED - Hemoglobin Glyclated (HGB A1C) (88115) Indication:Family history of diabetes mellitus Family history [...] Hypercholesteremia : DISCONT INUED - LIPID PANEL ([id number]) Indication:Hypercholesteremia Family history of diabetes m ellitus : DISCONTINUED - Glucose, PP/2 Hour (87323) Indication:Family history of diabetes mellitus Family history of diabetes m ellitus : DISCONTINUED - Hemoglobin Glyclated (HGB A1C) (62303) Indication:Family history of diabetes mellitus Family history [...] Hypercholesteremia : DISCONT INUED - LIPID PANEL ([id number]) Indication:Hypercholesteremia Family history of diabetes m ellitus : DISCONTINUED - Glucose, PP/2 Hour (04911) Indication:Family history of diabetes mellitus Family history of diabetes m ellitus : DISCONTINUED - Hemoglobin Glyclated (HGB A1C) (04953) Indication:Family history of diabetes mellitus Family history [...] for Treatment DISCONTINUED - LIPID PANEL ( [id number]) Indication:Hypercholesteremia Start:13-Oct-2016 Instruction Type:Patient Education DISCONTINUED - Glucose, PP/2 Hour (81699) Indication:Family history of diabetes mellitus Start:13-Oct-2016 Instruction Type:Patient Education DISCONTINUED - Hemoglobin Glyclated (HGB A1C) (10920) Indication:Family history of diabetes mellitus Start:13-Oct-2016 Instruction Type:Patient Education How to access health informa [employer] online Indication:Uncontrolled type 2 diabetes mellitus without complication, without long-term current use of insulin Start:13-Oct-2016 Instruction Type:Patient Education How to access health informa [employer] online - Detail Indication:Uncontrolled type 2 diabetes mellitus without complication, without long-term current use of insulin Start:13-Oct-2016 Instruction Type:Patient Education Patient Instructions Indication:Uncontrolled type 2 diabetes mellitus without complication, without long-term current use of insulin Start:13-Oct-2016 Instruction Type:Provider Instructions for Treatment Patient Instructions Indication:Nonsmoker Start:30-Sep-2016 Instruction Type:Provider Instructions for Treatment How to access health informa [employer] Indication:Uncontrolled type 2 diabetes mellitus without complication, without long-term current use of insulin Start:30-Sep-2016 Instruction Type:Patient Education How to access health informa [employer] online - Detail Indication:Uncontrolled type 2 diabetes mellitus without complication, without long-term current use of insulin Start:30-Sep-2016 Instruction Type:Patient Education Patient Instructions Indication:Hypothyroid Start:28-Aug-2013 Instruction Type:Provider Instructions for Treatment Patient Instructions Indication:Family history of diabetes mellitus Start:06-Mar-2013 Instruction Type:Provider Instructions for Treatment Name Dates Details How to access health [employer] Indication:Nonsmoker Start:03-Apr-2019 Instruction Type:Patient Education How to access health informa [employer] online - Detail Indication:Nonsmoker Start:03-Apr-2019 Instruction Type:Patient Education Patient Instructions Indication:Nonsmoker Start:03-Apr-2019 Instruction Type:Provider Instructions for Treatment How to access health [employer] Indication:Diabetes mellitus type 2, uncontrolled (Renamed from [...] for Treatment DISCONTINUED - LIPID PANEL ( 19302) Indication:Hypercholesteremia Start:13-Oct-2016 Instruction Type:Patient Education DISCONTINUED - Glucose, PP/2 Hour (88244) Indication:Family history of diabetes mellitus Start:13-Oct-2016 Instruction Type:Patient Education DISCONTINUED - Hemoglobin Glyclated (HGB A1C) (19268) Indication:Family history of diabetes mellitus Start:13-Oct-2016 Instruction Type:Patient Education How to access health informa [employer] online Indication:Uncontrolled type 2 diabetes mellitus without [...] for Treatment DISCONTINUED - LIPID PANEL ( [id number]) Indication:Hypercholesteremia Start:13-Oct-2016 Instruction Type:Patient Education DISCONTINUED - Glucose, PP/2 Hour (74760) Indication:Family history of diabetes mellitus Start:13-Oct-2016 Instruction Type:Patient Education DISCONTINUED - Hemoglobin Glyclated (HGB A1C) (30521) Indication:Family history of diabetes mellitus Start:13-Oct-2016 Instruction Type:Patient Education How to access health informa [employer] online Indication:Uncontrolled type 2 diabetes mellitus without [...] for Treatment How to access health informa [employer] online Indication:Uncontrolled type 2 diabetes mellitus without [...] Dates Details How to access health informa [employer] online Indication:Diabetes mellitus type II, controlled, with [...] Instructions for Treatment How to access health [employer] online Indication:Nonsmoker Start:03-Apr-2019 Instruction Type:Patient Education How to access health informa [employer] online - Detail Indication:Nonsmoker Start:03-Apr-2019 Instruction Type:Patient [...] for Treatment DISCONTINUED - LIPID PANEL ( [id number]) Indication:Hypercholesteremia Start:13-Oct-2016 Instruction Type:Patient Education DISCONTINUED - Glucose, PP/2 Hour (62874) Indication:Family history of diabetes mellitus Start:13-Oct-2016 Instruction Type:Patient Education DISCONTINUED - Hemoglobin Glyclated (HGB A1C) (22138) Indication:Family history of diabetes mellitus Start:13-Oct-2016 Instruction [...] Instructions for Treatment How to access health [employer] Indication:Uncontrolled type 2 diabetes mellitus without complication, without long-term current use of insulin Start:09-Dec-2016 Instruction Type:Patient Education How to access health informa [employer] online - Detail Indication:Uncontrolled type 2 diabetes mellitus without complication, without long-term current use of insulin Start:09-Dec-2016 Instruction Type:Patient Education Patient Instructions Indication:Uncontrolled type 2 diabetes mellitus without complication, without long-term current use of insulin Start:09-Dec-2016 Instruction Type:Provider Instructions for Treatment DISCONTINUED - LIPID PANEL ( [id number]) Indication:Hypercholesteremia Start:13-Oct-2016 Instruction Type:Patient Education DISCONTINUED - Glucose, PP/2 Hour (09541) Indication:Family history of diabetes mellitus Start:13-Oct-2016 Instruction Type:Patient Education DISCONTINUED - Hemoglobin Glyclated (HGB A1C) (32489) Indication:Family history of diabetes mellitus Start:13-Oct-2016 Instruction Type:Patient Education How to access health [employer] online Indication:Uncontrolled type 2 diabetes mellitus without complication, without long-term current use of insulin Start:13-Oct-2016 Instruction Type:Patient Education How to access health informa [employer] online - Detail Indication:Uncontrolled type 2 diabetes mellitus without complication, without long-term current use of insulin Start:13-Oct-2016 Instruction Type:Patient Education Patient Instructions Indication:Uncontrolled type 2 diabetes mellitus without complication, without long-term current use of insulin Start:13-Oct-2016 Instruction Type:Provider Instructions for Treatment Patient Instructions Indication:Nonsmoker Start:30-Sep-2016 Instruction Type:Provider Instructions for Treatment How to access health [employer] online Indication:Uncontrolled type 2 diabetes mellitus without complication, without long-term current use of insulin Start:30-Sep-2016 Instruction Type:Patient Education How to access health informa [employer] online - Detail Indication:Uncontrolled type 2 diabetes [...] for Treatment DISCONTINUED - LIPID PANEL ( [id number]) Indication:Hypercholesteremia Start:13-Oct-2016 Instruction Type:Patient Education DISCONTINUED - Glucose, PP/2 Hour (93476) Indication:Family history of diabetes mellitus Start:13-Oct-2016 Instruction Type:Patient Education DISCONTINUED - Hemoglobin Glyclated (HGB A1C) (86199) Indication:Family history of diabetes mellitus Start:13-Oct-2016 Instruction [...] Instructions for Treatment How to access health [employer] online Indication:Uncontrolled type 2 diabetes mellitus without [...] for Treatment How to access health informa [employer] online Indication:Uncontrolled type 2 diabetes mellitus without [...] for Treatment DISCONTINUED - LIPID PANEL ( [id number]) Indication:Hypercholesteremia Start:13-Oct-2016 Instruction Type:Patient Education DISCONTINUED - Glucose, PP/2 Hour (49188) Indication:Family history of diabetes mellitus Start:13-Oct-2016 Instruction Type:Patient Education DISCONTINUED - Hemoglobin Glyclated (HGB A1C) (90732) Indication:Family history of diabetes mellitus Start:13-Oct-2016 Instruction Type:Patient Education How to access health informa [employer] online Indication:Uncontrolled type 2 diabetes mellitus without [...] for Treatment How to access health informa [employer] Indication:Uncontrolled type 2 diabetes mellitus without complication, without long-term current use of insulin Start:09-Dec-2016 Instruction Type:Patient Education How to access health informa [employer] online - Detail Indication:Uncontrolled type 2 diabetes mellitus without complication, without long-term current use of insulin Start:09-Dec-2016 Instruction Type:Patient Education Patient Instructions Indication:Uncontrolled type 2 diabetes mellitus without complication, without long-term current use of insulin Start:09-Dec-2016 Instruction Type:Provider Instructions for Treatment DISCONTINUED - LIPID PANEL ( [id number]) Indication:Hypercholesteremia Start:13-Oct-2016 Instruction Type:Patient Education DISCONTINUED - Glucose, PP/2 Hour (25511) Indication:Family history of diabetes mellitus Start:13-Oct-2016 Instruction Type:Patient Education DISCONTINUED - Hemoglobin Glyclated (HGB A1C) (21509) Indication:Family history of diabetes mellitus Start:13-Oct-2016 Instruction Type:Patient Education How to access health [employer] Indication:Uncontrolled type 2 diabetes mellitus without complication, without long-term current use of insulin Start:13-Oct-2016 Instruction Type:Patient Education How to access health informa [employer] online - Detail Indication:Uncontrolled type 2 diabetes mellitus without complication, without long-term current use of insulin Start:13-Oct-2016 Instruction Type:Patient Education Patient Instructions Indication:Uncontrolled type 2 diabetes mellitus without complication, without long-term current use of insulin Start:13-Oct-2016 Instruction Type:Provider Instructions for Treatment Patient Instructions Indication:Nonsmoker Start:30-Sep-2016 Instruction Type:Provider Instructions for Treatment How to access health [employer] Indication:Uncontrolled type 2 diabetes mellitus without complication, without long-term current use of insulin Start:30-Sep-2016 Instruction Type:Patient Education How to access health informa [employer] - Detail Indication:Uncontrolled type 2 diabetes mellitus [...] for Treatment DISCONTINUED - LIPID PANEL ( [id number]) Indication:Hypercholesteremia Start:13-Oct-2016 Instruction Type:Patient Education DISCONTINUED - Glucose, PP/2 Hour (37106) Indication:Family history of diabetes mellitus Start:13-Oct-2016 Instruction Type:Patient Education DISCONTINUED - Hemoglobin Glyclated (HGB A1C) (46554) Indication:Family history of diabetes mellitus Start:13-Oct-2016 Instruction Type:Patient Education How to access health informa [employer] online Indication:Uncontrolled type 2 diabetes mellitus without [...] for Treatment How to access health informa [employer] online Indication:Uncontrolled type 2 diabetes mellitus without [...] for Treatment DISCONTINUED - LIPID PANEL ( [id number]) Indication:Hypercholesteremia Start:13-Oct-2016 Instruction Type:Patient Education DISCONTINUED - Glucose, PP/2 Hour (10515) Indication:Family history of diabetes mellitus Start:13-Oct-2016 Instruction Type:Patient Education DISCONTINUED - Hemoglobin Glyclated (HGB A1C) (86252) Indication:Family history of diabetes mellitus Start:13-Oct-2016 Instruction Type:Patient Education How to access health informa [employer] online Indication:Uncontrolled type 2 diabetes mellitus without [...] for Treatment DISCONTINUED - LIPID PANEL ( [id number]) Indication:Hypercholesteremia Start:13-Oct-2016 Instruction Type:Patient Education DISCONTINUED - Glucose, PP/2 Hour (30223) Indication:Family history of diabetes mellitus Start:13-Oct-2016 Instruction Type:Patient Education DISCONTINUED - Hemoglobin Glyclated (HGB A1C) (71236) Indication:Family history of diabetes mellitus Start:13-Oct-2016 Instruction [...] for Treatment DISCONTINUED - LIPID PANEL ( [id number]) Indication:Hypercholesteremia Start:13-Oct-2016 Instruction Type:Patient Education DISCONTINUED - Glucose, PP/2 Hour (11517) Indication:Family history of diabetes mellitus Start:13-Oct-2016 Instruction Type:Patient Education DISCONTINUED - Hemoglobin Glyclated (HGB A1C) ([id number]) Indication:Family history of diabetes mellitus Start:13-Oct-2016 Instruction Type:Patient Education How to access health [employer] online Indication:Uncontrolled type 2 diabetes mellitus without complication, without long-term current use of insulin Start:13-Oct-2016 Instruction Type:Patient Education How to access health informa [employer] online - Detail Indication:Uncontrolled type 2 diabetes mellitus without complication, without long-term current use of insulin Start:13-Oct-2016 Instruction Type:Patient Education Patient Instructions Indication:Uncontrolled type 2 diabetes mellitus without complication, without long-term current use of insulin Start:13-Oct-2016 Instruction Type:Provider Instructions for Treatment Patient Instructions Indication:Nonsmoker Start:30-Sep-2016 Instruction Type:Provider Instructions for Treatment How to access health [employer] online Indication:Uncontrolled type 2 diabetes mellitus without complication, without long-term current use of insulin Start:30-Sep-2016 Instruction Type:Patient Education How to access health informa [employer] online - Detail Indication:Uncontrolled type 2 diabetes mellitus without complication, without long-term current use of insulin Start:30-Sep-2016 Instruction Type:Patient Education Patient Instructions Indication:Hypothyroid Start:28-Aug-2013 Instruction Type:Provider Instructions for Treatment Patient Instructions Indication:Family history of diabetes mellitus Start:06-Mar-2013 Instruction Type:Provider Instructions for Treatment Name Dates Details How to access [employer] online Indication:Nonsmoker Start:03-Apr-2019 Instruction Type:Patient Education How to access health informa [employer] online - Detail Indication:Nonsmoker Start:03-Apr-2019 Instruction Type:Patient Education Patient Instructions Indication:Nonsmoker Start:03-Apr-2019 Instruction Type:Provider Instructions for Treatment How to access health [employer] online Indication:Diabetes mellitus type 2, uncontrolled (Renamed [...] Instructions for Treatment How to access health [employer] online Indication:Uncontrolled type 2 diabetes mellitus without [...] for Treatment DISCONTINUED - LIPID PANEL ( [id number]) Indication:Hypercholesteremia Start:13-Oct-2016 Instruction Type:Patient Education DISCONTINUED - Glucose, PP/2 Hour (44983) Indication:Family history of diabetes mellitus Start:13-Oct-2016 Instruction Type:Patient Education DISCONTINUED - Hemoglobin Glyclated (HGB A1C) ([id number]) Indication:Family history of diabetes mellitus Start:13-Oct-2016 Instruction [...] Instructions for Treatment How to access health [employer] online Indication:Uncontrolled type 2 diabetes mellitus without complication, without long-term current use of insulin Start:09-Dec-2016 Instruction Type:Patient Education How to access health informa [employer] online - Detail Indication:Uncontrolled type 2 diabetes mellitus without complication, without long-term current use of insulin Start:09-Dec-2016 Instruction Type:Patient Education Patient Instructions Indication:Uncontrolled type 2 diabetes mellitus without complication, without long-term current use of insulin Start:09-Dec-2016 Instruction Type:Provider Instructions for Treatment DISCONTINUED - LIPID PANEL ( [id number]) Indication:Hypercholesteremia Start:13-Oct-2016 Instruction Type:Patient Education DISCONTINUED - Glucose, PP/2 Hour (40428) Indication:Family history of diabetes mellitus Start:13-Oct-2016 Instruction Type:Patient Education DISCONTINUED - Hemoglobin Glyclated (HGB A1C) (71671) Indication:Family history of diabetes mellitus Start:13-Oct-2016 Instruction Type:Patient Education How to access health [employer] online Indication:Uncontrolled type 2 diabetes mellitus without complication, without long-term current use of insulin Start:13-Oct-2016 Instruction Type:Patient Education How to access health informa [employer] online - Detail Indication:Uncontrolled type 2 diabetes mellitus without complication, without long-term current use of insulin Start:13-Oct-2016 Instruction Type:Patient Education Patient Instructions Indication:Uncontrolled type 2 diabetes mellitus without complication, without long-term current use of insulin Start:13-Oct-2016 Instruction Type:Provider Instructions for Treatment Patient Instructions Indication:Nonsmoker Start:30-Sep-2016 Instruction Type:Provider Instructions for Treatment How to access health [employer] Indication:Uncontrolled type 2 diabetes mellitus without complication, without long-term current use of insulin Start:30-Sep-2016 Instruction Type:Patient Education How to access health informa [employer] - Detail Indication:Uncontrolled type 2 diabetes mellitus [...] for Treatment How to access health informa [employer] online Indication:Diabetes mellitus type II, controlled, with [...] for Treatment DISCONTINUED - LIPID PANEL ( [id number]) Indication:Hypercholesteremia Start:13-Oct-2016 Instruction Type:Patient Education DISCONTINUED - Glucose, PP/2 Hour (60953) Indication:Family history of diabetes mellitus Start:13-Oct-2016 Instruction Type:Patient Education DISCONTINUED - Hemoglobin Glyclated (HGB A1C) (60903) Indication:Family history of diabetes mellitus Start:13-Oct-2016 Instruction [...] Informa tion Online using Patient Portal and [employer] Indication:Acute sinusitis Start:24-Feb-2021 Instruction Type:Patient Education [...] for Treatment How to access health informa [employer] online Indication:Uncontrolled type 2 diabetes mellitus without [...] for Treatment DISCONTINUED - LIPID PANEL ( [id number]) Indication:Hypercholesteremia Start:13-Oct-2016 Instruction Type:Patient Education DISCONTINUED - Glucose, PP/2 Hour (84384) Indication:Family history of diabetes mellitus Start:13-Oct-2016 Instruction Type:Patient Education DISCONTINUED - Hemoglobin Glyclated (HGB A1C) (12179) Indication:Family history of diabetes mellitus Start:13-Oct-2016 Instruction [...] Informa tion Online using Patient Portal and [employer] Indication:Acute sinusitis Start:24-Feb-2021 Instruction Type:Patient Education [...] Type:Patient Education How to access health informa [employer] online - Detail Indication:Uncontrolled type 2 diabetes mellitus without complication, without long-term current use of insulin Start:07-May-2017 Instruction Type:Patient Education Patient Instructions Indication:Uncontrolled type 2 diabetes mellitus without complication, without long-term current use of insulin Start:07-May-2017 Instruction Type:Provider Instructions for Treatment Patient Instructions Indication:Nonsmoker Start:09-Feb-2017 Instruction Type:Provider Instructions for Treatment How to access health informa [employer] online Indication:Uncontrolled type 2 diabetes mellitus without [...] for Treatment DISCONTINUED - LIPID PANEL ( [id number]) Indication:Hypercholesteremia Start:13-Oct-2016 Instruction Type:Patient Education DISCONTINUED - Glucose, PP/2 Hour (34678) Indication:Family history of diabetes mellitus Start:13-Oct-2016 Instruction Type:Patient Education DISCONTINUED - Hemoglobin Glyclated (HGB A1C) (89012) Indication:Family history of diabetes mellitus Start:13-Oct-2016 Instruction Type:Patient Education How to access health informa [employer] online Indication:Uncontrolled type 2 diabetes mellitus without [...] tion Online using Patient Portal and [employer] Apps Indication:Acute sinusitis Start:24-Feb-2021 Instruction Type:Patient [...] for Treatment How to access health informa [employer] online Indication:Uncontrolled type 2 diabetes mellitus without [...] for Treatment DISCONTINUED - LIPID PANEL ( [id number]) Indication:Hypercholesteremia Start:13-Oct-2016 Instruction Type:Patient Education DISCONTINUED - Glucose, PP/2 Hour (06941) Indication:Family history of diabetes mellitus Start:13-Oct-2016 Instruction Type:Patient Education DISCONTINUED - Hemoglobin Glyclated (HGB A1C) (31065) Indication:Family history of diabetes mellitus Start:13-Oct-2016 Instruction Type:Patient Education How to access health informa [employer] online Indication:Uncontrolled type 2 diabetes mellitus without complication, without long-term current use of insulin Start:13-Oct-2016 Instruction Type:Patient Education How to access health informa [employer] online - Detail Indication:Uncontrolled type 2 diabetes mellitus without complication, without long-term current use of insulin Start:13-Oct-2016 Instruction Type:Patient Education Patient Instructions Indication:Uncontrolled type 2 diabetes mellitus without complication, without long-term current use of insulin Start:13-Oct-2016 Instruction Type:Provider Instructions for Treatment Patient Instructions Indication:Nonsmoker Start:30-Sep-2016 Instruction Type:Provider Instructions for Treatment How to access health informa [employer] online Indication:Uncontrolled type 2 diabetes mellitus without complication, without long-term current use of insulin Start:30-Sep-2016 Instruction Type:Patient Education How to access health informa [employer] online - Detail Indication:Uncontrolled type 2 diabetes [...] section and content) DATE CREATED AUTHOR 05/24/2018 [facility] ([place]) DATE CREATED AUTHOR AUTHOR'S ORGANIZ ATION 03/08/2021 [facility] DATE CREATED AUTHOR AUTHOR'S ORGANIZ ATION 01/20/2023 [facility] DATE CREATED AUTHOR AUTHOR'S ORGANIZ ATION 11/03/2024 [facility] DATE CREATED AUTHOR AUTHOR'S ORGANIZ ATION 06/02/2025 [facility] Goals (unrecognized section and content) Goals [...] Provi tree, Attending Provider, Referring Provider Active Field Health Officer Relationship Specialty Start Date End Date Renata Mei DO [address] [place] [address] PCP - General Internal Medicine 09/16/18 Renetta Najera [address] [place] [address] [phone] Specialty Core Machine Tender Obstetrics 12/19/18 Annika Sweeney MD [address] [place] [address] Physician Radiation Oncology 12/20/18 Team Status: Active [...] or prosecute any alcohol or drug abuse patient.[facility] FOR RECORDS PERTAINING TO PATIENTS WHO [...] BE BASED ON THE PRIMARY CLINICAL RECORDS. [facility] [employer] [facility]. provides no warranty or guarantee of the accuracy or completeness of information in this document.
--- OUTSIDE RECORDS SUMMARY | 2025-06-07 04:13 | XMS RPT_ITS | CCD ---
Author Organization [facility] Providers Care Assembler 1St Shift Name Role Phone WALDEMAR ROSA Unavailable Unavailable WALDEMAR ROSA Unavailable Unavailable CiMarcia chapin E Unavailable Waldemar Rosa Unavailable Zee Rivas Unavailable Myra Fowler Unavailable Unavailable Haseeb Sherwood Unavailable Unavailable Unavailable Unavailable Aaron Carmen Unavailable Waldemar Rosa Unavailable [facility] Unavailable Zee Rivas Unavailable Manchak, Federica Unavailable Unavailable Haseeb Sherwood Unavailable Unavailable Unavailable Unavailable Kathleen Miller Unavailable Keeley Saini Unavailable [facility] Unavailable Haseeb Sehrwood Unavailable Unavailable Haseeb Brizuela Unavailable Unavailable Madelin Fiore Unavailable Unavailable Manchak, Federica Unavailable Unavailable Fast, Arelis A Unavailable Nellie Knox Unavailable Unavailable Cidari BRICEÑO Carmen Unavailable Kathleen Miller Unavailable Dr. Waldemar Rosa Unavailable Keeley Saini Unavailable [facility] Unavailable Zee Rivas MD Unavailable Manchak PUBLIC STENOGRAPHER, Federica Unavailable Unavailable Fast DO, Arelis A Unavailable Haseeb Brizuela LPN Unavailable Unavailable Nellie Knox LPN Unavailable Unavailable Unavailable Unavailable Slarb DIESEL PILE HAMMER OPERATOR, Latrice Unavailable Unavailable Presley DIESEL PILE HAMMER OPERATOR, Haseeb Unavailable Unavailable Adebayo DIESEL PILE HAMMER OPERATOR, Madelin Unavailable Unavailable Aaron Marcia Unavailable Ottoniel ANALYTICS ANALYST, Karen Unavailable Ottoniel ANALYTICS ANALYST, Karen Unavailable Aaron Marcia Unavailable Daphne PUBLIC STENOGRAPHER, Kayela Unavailable Unavailable Ottoniel ANALYTICS ANALYST, Karen Unavailable Ottoniel ANALYTICS ANALYST, Karen Unavailable Ottoniel ANALYTICS ANALYST, Karen Unavailable Kathleen Miller Unavailable Dr. Waldemar Rosa Unavailable Keeley Saini Unavailable [facility] Unavailable Rob CLEMONS, Zee Flores Unavailable Slarb DIESEL PILE HAMMER OPERATOR, Latrice Unavailable Unavailable Lisette DIESEL PILE HAMMER OPERATOR, Nellie Unavailable Unavailable Juanis PUBLIC STENOGRAPHER, Federica Unavailable Unavailable Gelacio DIESEL PILE HAMMER OPERATOR, Haseeb Unavailable Unavailable Unavailable Unavailable Ottoniel ANALYTICS ANALYST, Karen Attending Unavailable Ottoniel ANALYTICS ANALYST, Karen Consulting Unavailable Ottoniel ANALYTICS ANALYST, Karen Referring Unavailable Aram, Robert Unavailable Unavailable Flavia Coleman MA Unavailable Unavailable Renata Mei DO Primary Care Provider Renetta Najera Unavailable Patel CLEMONS, Annika Unavailable Ottoniel TELEVISION SERVICE ENGINEER-CKaren Primary Care Provider Dr. Kelvin Butt DO [...] sources) Latex Allergy to substance 9 Rash [facility] (1 source) Latex Drug allergy (disorder) 5 [facility] Repository NEGATED: Highlighted row has been ruled [...] 200 mg by mouth as needed. Active Campbell 9-Jrd-Ojw-Fish Oil (Fish Oil) 500 MG capsule,delayed release(DR/EC) (2 sources) Start: 10-03-20 take 1 capsule by mouth once daily Campbell 3-Pjp-Pkr-Fish Oil (Fish Oil) 500 MG capsule,delayed release(DR/EC) Active 500 mg PO DAILY October 03, 2018 1:00am SUPPLEMENT Start: 10-03-2018 take [address] [facility] once daily Campbell 7-Bwc-Kyy-Fish Oil (Fish Oil) 500 MG capsule,delayed release(DR/EC) Active 500 MG PO DAILY October 03, 2018 1:00am Campbell 3-Iux-Heo-Fish Oil (Fish Oil) [address] (1 source) Start: 10-03-2018 take 1 capsule by mouth once daily Campbell 4-Xsy-Rqj-Fish Oil (Fish Oil) 500 MG Capsule.Dr Active [...] THYROID Start: 09-26-2018 [facility] Synthroid 25 MCG [...] capsule by mouth once daily Vitamin D3 65677 UNIT Oral Capsule 1 (one) Capsule Capsule [...] End: 06-27-2018 Start: 12-06-2017 End: 06-27-2018 Ergocalciferol 78110 UNIT Or al Capsule 1 Capsule twice [...] End: 11-18-2021 Start: 06-10-2020 End: 11-18-2021 Nystop [id number] UNIT/GM Attendant Child Activity al Powder 1 Application bid for 0 [...] 27-Jun-2018 Active take [address] [facility] once daily Vitamin E, dl, acetate, (VITAMIN E) 400 unit capsule Take 400 Units by mouth once daily. Active vitamin E mixed (12 sources) Start: 06-27-2018 Vitamin Pack (20 sources) Vitamin Pack Shanique ctive Comments: Cranberry, Vitamin d3, MV, Campbell 3 fish oil, Coq10, Calcium Vitamin Pack Act michael Comments: Cranberry, Vitamin d3, MV, Campbell 3 fish oil, Coq10, Calcium Comment on above: Cranberry, Vitamin d 3, MV, Campbell 3 fish oil, Coq10, Calcium Problems Active [...] with Dr. Manuel johnson, no longer 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 Patient denies any loss of consciousness. Patient states she was unable to get up after her fall. Patient denies any paresthesias or weakness. Patient complains of pain over her left shoulder and into the left side of her neck. Patient denies any paresthesias or weakness. Patient denies any other injuries. Tetanus Immunization: Unknown [facility] Medical History (Updated 05/31/25 @ 12:43 by [...] CN's I (more content not included)... Normal [facility] Shoulder min 2 Viewson 05-31 Shoulder min 2 Views [facility] [address] [place], [place] [id number] Shoulder min 2 Views MR#: [id number] Acct: [id number] Name: KAREN VILLALOBOS Rep #: [id number] : 1945 F 79 From: Phil Gomez MD PCP: Karen Alcazar TELEVISION SERVICE ENGINEER-C Status: REG ER Study: Shoulder min 2 Views Date of Exam: 05/31/25 Exam# [id number] Ordering Dr: Kelvin Butt DO PROCEDURE: SHOULDER [...] time of dictation. Reading Location: [place] CC: TELEVISION SERVICE ENGINEER-C Karen Alcazar; Dr. Kelvin Butt DO Insert Cutter: Signed Normal [facility] Sinus/Facial Boneon 05-31-20 Sinus/Facial Bone [facility] [address] [place] [address] Sinus/Facial Bone MR#: [id number] Acct: [id number] Name: KAREN VILLALOBOS Rep #: [id number] : 1945 F 79 From: Phil Gomez MD PCP: ADRIANO Burgess Status: REG ER Study: Sinus/Facial Bone Date of Exam: 05/31/25 Exam# [id number] Ordering Dr: Kelvin Butt DO PROCEDURE: SINUS/FACIAL [...] no underlying fracture. Reading Location: [place] CC: TELEVISION SERVICE ENGINEER-C Karen Alcazar; Dr. Kelvin Butt DO Insert Cutter: Signed Normal [facility] Spine Cervical without Contr ason 05-31-2025 Spine Cervical without Contras [facility] [address] [place] [address] Spine Cervical without Contras MR#: [id number] Acct: [id number] Name: KAREN VILLALOBOS Rep #: [id number] : 1945 F 79 From: Alessio Marie MD PCP: ADRIANO Burgess Status: [facility] ER Study: Spine Cervical without Contras Date of Exam: 0 05/31/25 Exam# [id number] Ordering Dr: Kelvin Butt DO EXAM: CT [...] changes as above. Reading Location: [place] CC: TELEVISION SERVICE ENGINEEROmega Alcazar; Dr. Kelvin Butt DO Insert Cutter: Signed Normal [facility] MR/BMS.BVSon 01-04-2025 MR/BMS.BVS [facility] [address] [place] [address] OFFICE VISIT Date of Service: 01/04/25 MR#: [id number] Acct: [id number] Name: KAREN VILLALOBOS Rep #: [id number] : 1945 Provider: TRAMAINE Salmreon Age/Sex: 79/F Location: [facility] Status: Signed Intake Vital Signs [...] labored, no (more content not included)... Normal [facility] 11-01-2024 [place] Telephone (GABRIELAAMAIRANI) KAREN VILLALOBOS ([id number]) 1945 F Date Time Provider Department 11/01/24 [...] Status:Closed by SHAVONNE ZULUAGA on 11/01/24 Normal [facility] Brain W/WO Contraston 2023 Brain W/WO Contrast [facility] [address] [place] [address] Brain W/WO Contrast MR#: [id number] Acct: [id number] Name: KAREN VILLALOBOS Rep #: [id number] : 1945 F 79 From: Michelle Sutton MD PCP: ADRIANO Burgess Status: REG CLI Study: Brain W/WO Contrast Date of Exam: 10/31/24 Exam# [id number] Ordering Dr: Karen AlcazarC [id number] EXAM: MR HEAD WITHOUT AND WITH INTRAVENOUS [...] there appears to be origin of the healthcare consultant with small but patent signal voids. Enhanced deep veins and major dural venous sinuses. No enhancing nodules. MRI/Brain W/WO Contrast IMPRESSION: No acute findings in the head/brain. Chronic changes. Electronically Signed: Michelle Sutton MD at 2:10 EST Reading Location ID and State: [facility] / [place] Tel , Service support , CC: ADRIANO Alcazar Insert Cutter: Signed Normal [facility] CREATININE FINGERSTICKon CREATININE WB < 1.0 Normal 0.55-1.02 [facility] Comment on above: Performed By: #### L 9100.0200 #### [facility] [address] [place], [address] EGFR WB > 60.0000 Normal >60 [facility] Comment on above: Performed By: #### L 9100.0200 #### [facility] [address] [place], [address] Carotid Duplex Ultrasoundon 10-09-2024 Carotid Duplex Ultrasound [facility] [address] [place] [address] Carotid Duplex Ultrasound 10/09/24 1244 MR#: [id number] Acct: [id number] Name: KAREN VILLALOBOS Rep #: [id number] : 1945 79 From: Kelvin Ayala MD Attending Dr: ADRIANO Burgess Status: REG CLI Ordering Dr: Karen Alcazar Date: 10/09/24 Location: [facility] Sex: F C Admitted: Reason For Study: [...] color flow and specral Doppler. Carotid Duplex 21904. Exam performed in department. VL/Carotid Duplex Ultrasound Interpretation Summary Mild (<50%) stenosis right extracranial internal carotid. Moderate (50-69%) stenosis left extracranial internal carotid. Patent and antegrade vertebrals bilaterally. Ordering Physician: Karen Alcazar Referring Physician: Karen Alcazar Performed By: Kiersten Bright RVT 10/09/242054 Date Kelvin Ayala MD CC: TELEVISION SERVICE ENGINEER-C Karen Alcazar Date Dictated: 10/09/24 1244 Date Transcribed: 10/09/242054 Insert Cutter: Signed Normal [facility] Brain/Head without Contrasto n 09-25-2024 Brain/Head without Contrast [facility] [address] [place] [address] Brain/Head without Contrast MR#: [id number] Acct: [id number] Name: KAREN VILLALOBOS Rep #: [id number] : 1945 F 79 From: Reva hoang MD PCP: ADRIANO Burgess Status: REG ER Study: Brain/Head without Contrast Date of Exam: 08/30 07/22 Exam# [id number] Ordering Dr: [place] [id number] HISTORY: headache. TECHNIQUE: Multiple axial images were [...] CC: ADRIANO Alcazar; Dr. Lyle Guerrero DO Insert Cutter: Signed Normal [facility] CBC W/Diff, Automatedon 10-2 PLT EST MOD DEC Normal ADEQ [facility] Comment on above: Order Comment: PLT C LUMPING Performed By: #### L 100.0100 #### [facility] [address] [place], [address] RED CELL MORPH NORM C+C Normal NORM C C [facility] Comment on above: Order Comment: PLT C LUMPING Performed By: #### L 100.0100 #### [facility] [address] [place], [address] SMEAR COMMENT SCANNED Normal [facility] Comment on above: Order Comment: PLT C LUMPING Performed By: #### L 100.0100 #### [facility] [address] [place], [address] Emergency Department Summary on 09-25-2024 Emergency Department Summary [facility] Medical Records Department [address] [place] [address] Emergency Department Summary 09/25/24 MR#: [id number] Acct: [id number] Name: KAREN VILLALOBOS Rep #: [id number] : 1945 79 From: Lyle Guerrero DO [...] the occasional occipital ache but not headache. [facility] Medical History Diabetes Home Medications ???Medication ???Instructions [...] to pal (more content not included)... Normal [facility] Spine Cervical without Contr ason 09-25-2024 Spine Cervical without Contras [facility] [address] [place] [address] Spine Cervical without Contras MR#: [id number] Acct: [id number] Name: KAREN VILLALOBOS Rep #: [id number] : 1945 F 79 From: Reva hoang MD PCP: Karen Alcazar, TELEVISION SERVICE ENGINEER-C Status: REG ER Study: Spine Cervical without Contras Date of Exam: Exam# [id number] Ordering Dr: [place] [id number] HISTORY: pain. TECHNIQUE: Helically acquired images were [...] Bryant MD at 13:43 EDT , CC: TELEVISION SERVICE ENGINEERBasimC Karen Alcazar; Dr. Lyle Guerrero DO Insert Cutter: Signed Normal [facility] SCRN MAMM (CAD)W/SHELIA BILATo n 08-01-2024 SCRN MAMM (CAD)W/SHELIA BILAT [facility] [address] [place] [address] SCRN MAMM (CAD)W/SHELIA BILAT MR#: [id number] Acct: [id number] Name: KAREN VILLALOBOS Rep #: [id number] : 1945 F 79 From: Fernando shaw MD PCP: ADRIANO Burgess Status: [facility] Study: SCRN MAMM (CAD)W/SHELIA BILAT Date of Exam: 02/19 Exam# [id number] Ordering Dr: Karen Alcazar TELEVISION SERVICE ENGINEER-C [id number] MAMMOGRAPHY - BILATERAL SCREENING REASON FOR EXAM: [...] delay biopsy of a clinically suspicious abnormality. [id number] Electronically Signed: Fernando Ford MD at 13:55 EDT , CC: ADRIANO Alcazar Insert Cutter: Signed Normal [facility] Blood Glucose , Office [phone])Ordered By: Flavia Coleman on 07-20-2023 Glucose Glucometer (BldC) [Moles/Vol] 155 1 Normal [facility]; [facility] Work Phone: HgA1C , Office ([phone])Ordere d By: Flavia Coleman on 07-20-2023 HbA1c (Bld) [Mass fraction] 9.5 % Abnormal 4.6 - 7.1 [facility]; [facility] Work Phone: CALCIFEDIOL ([phone])Ordered B y: Net Programmer on 01-06-2023 25-hydroxyvitamin D [Mass/Vol] 29.7 ng/mL Abnormal 30.0-100.0 [facility]; [facility] Work Phone: CBC, PLATELETS & MANUAL DIFF ([phone])Ordered By: Net Programmer on 01-06-2023 Basophils (Bld) [#/Vol] 0.1 10*3/uL [...] (Bld) [#/Vol] 93 10*3/uL Abnormal 150-450 [facility]; [facility] Work Phone: RBC (Bld) [#/Vol] 4.58 10*6/uL Normal 3.77-5.28 [facility]; [facility] Work Phone: WBC (Bld) [#/Vol] 5.4 10*3/uL Normal 3.4-10.8 [facility]; [facility] Work Phone: HGB A1C ([phone])Ordered By: S ystem Steam Fitter on 01-06-2023 HbA1c (Bld) [Mass fraction] 8.9 % Abnormal 4.8-5.6 [facility]; [facility] Work Phone: LIPID PANEL ([phone])Ordered B y: Net Programmer on 01-06-2023 Cholesterol [Mass/Vol] 187 mg/dL Normal 100-199 [facility]; [facility] Work Phone: Cholesterol in HDL [Mass/Vol] 56 mg/dL Normal [facility]; [facility] Work Phone: Triglyceride [Mass/Vol] 99 mg/dL Normal 0-149 [facility]; [facility] Work Phone: LIPID PANEL ([phone]) 18 mg/dL Normal 5-40 [facility] Work Phone: LIPID PANEL ([phone]) 113 mg/dL Abnormal 0-99 [facility]; [facility] Work Phone: LIPID PANEL ([phone]) 2.0 {ratio} Normal 0.0-3.2 [facility]; [facility] Work Phone: METABOLIC PANEL, COMPREHENSI VE ([phone])Ordered By: Net Programmer on 01-06-2023 Albumin [Mass/Vol] 4.5 g/dL Normal 3.7-4.7 [facility]; [facility] Work Phone: Albumin/Globulin [Mass ratio] 1.7 {ratio} Normal 1.2-2.2 [facility]; [facility] Work Phone: ALP [Catalytic activity/Vol] 101 U/L Normal 44-121 [facility]; [facility] Work Phone: ALT [Catalytic activity/Vol] 45 U/L Abnormal 0-32 [facility]; [facility] Work Phone: AST [Catalytic activity/Vol] 52 U/L Abnormal 0-40 [facility]; [facility] Work Phone: Bilirubin [Mass/Vol] 0.5 mg/dL Normal 0.0-1.2 [facility]; [facility] Work Phone: Calcium [Mass/Vol] 9.8 mg/dL Normal 8.7-10.3 [facility]; [facility] Work Phone: Chloride [Moles/Vol] 102 mmol/L Normal 96-106 [facility] rehensive Internal Medicine; [facility] Work Phone: CO2 [Moles/Vol] 20 mmol/L Normal 20-29 [facility]; [facility] Work Phone: Creatinine [Mass/Vol] 0.73 mg/dL Normal 0.57-1.00 [facility] prehensive Internal Medicine; [facility] Work Phone: Globulin (S) [Mass/Vol] 2.7 g/dL Normal 1.5-4.5 [facility]; [facility] Work Phone: Glucose [Mass/Vol] 176 mg/dL Abnormal 70-99 [facility]; [facility] Work Phone: Potassium [Moles/Vol] 4.6 mmol/L Normal 3.5-5.2 [facility] prehensive Internal Medicine; [facility] Work Phone: Protein [Mass/Vol] 7.2 g/dL Normal 6.0-8.5 [facility]; [facility] Work Phone: Sodium [Moles/Vol] 139 mmol/L Normal 134-144 [facility]; [facility] Work Phone: Urea nitrogen [Mass/Vol] 12 mg/dL Normal 8-27 [facility]; [facility] Work Phone: Urea nitrogen/Creatinine [Mass ratio] 16 mg/mg Normal 12-28 [facility]; [facility] Work Phone: METABOLIC PANEL, COMPREHENSIVE ([phone]) 85 mL/min/1.[address] [facility]; [facility] Work Phone: TSH (THYROID STIMULATING HOR BARRON) ([phone])Ordered By: Net Programmer on 01-06-2023 TSH Qn 3.720 {uIU/mL} Normal 0.450-4.50 0 [facility]; [facility] Work Phone: Blood Glucose , Office [phone])Ordered By: Latrice Levy on 09-22-2022 Glucose Glucometer (BldC) [Moles/Vol] 178 1 Normal [facility]; [facility] Work Phone: HgA1C , Office ([phone])Ordere d By: Latrice Levy on 09-22-2022 HbA1c (Bld) [Mass fraction] 8.6 % Abnormal 4.6 - 7.1 [facility]; [facility] Work Phone: Blood Glucose , Office ([phone])Ordered By: Federica Olivarez on 02-27-2022 Glucose Glucometer (BldC) [Moles/Vol] 216 1 Normal [facility]; [facility] Work Phone: Comment on above: non-fastin HgA1C , Office ([phone])Ordere d By: Haseeb Brizuela on 02-27-2022 HbA1c (Bld) [Mass fraction] 8.2 % Abnormal 4.6 - 7.1 [facility]; [facility] Work Phone: CBC & PLATELETS (AUTO) ([phone])Ordered By: Net Programmer on 02-24-2022 Erythrocyte distribution width (RBC) [Ratio] 13.1 % Normal 11.7-15.4 [facility]; [facility] Work Phone: Comment on above: January 2022; PATIENT WAS FASTINGPERFORMED BY: CB [facility] [id number] [address]Dublin [place] [id number] Hematocrit (Bld) [Volume fraction] 41.3 % Normal 34.0-46.6 [facility]; [facility] Work Phone: Comment on above: January 2022; PATIENT WAS FASTINGPERFORMED BY: CB [facility] [id number] [address]Dublin [place] [id number] Hemoglobin (Bld) [Mass/Vol] 13.8 g/dL Normal 11.1-15.9 [facility]; [facility] Work Phone: Comment on above: January 2022; PATIENT WAS FASTINGPERFORMED BY: CB [facility] [id number] [address]Dublin [place] [id number] MCH (RBC) [Entitic mass] 29.7 pg Normal 26.6-33.0 [facility]; [facility] Work Phone: Comment on above: January 2022; PATIENT WAS FASTINGPERFORMED BY: CB [facility] [id number]Dublin [place] [id number] MCHC (RBC) [Mass/Vol] 33.4 g/dL Normal 31.5-35.7 [facility]; [facility] Work Phone: Comment on above: January 2022; PATIENT WAS FASTINGPERFORMED BY: CB [facility] [id number] [address]Dublin [place] [id number] MCV (RBC) [Entitic vol] 89 fL Normal 79-97 [facility]; [facility] Work Phone: Comment on above: January 2022; PATIENT WAS FASTINGPERFORMED BY: CB [facility] [id number]Dublin [place] [id number] Platelets (Bld) [#/Vol] 98 10*3/uL Abnormal 150-450 [facility]; [facility] Work Phone: Comment on above: January 2022; PATIENT WAS FASTINGPERFORMED BY: CB [facility] [id number]bl[address] [place] [id number] RBC (Bld) [#/Vol] 4.65 10*6/uL Normal 3.77-5.28 [facility]; [facility] Work Phone: Comment on above: January 2022; PATIENT WAS FASTINGPERFORMED BY: [facility] [id number] [facility] [place] [id number] WBC (Bld) [#/Vol] 6.6 10*3/uL Normal 3.4-10.8 [facility]; [facility] Work Phone: Comment on above: Verified by repeat analysis January 2022; PATIENT WAS FASTINGPERFORMED BY: [facility] [id number] [facility] [id number] HEPATIC FUNCTION PANEL ([phone])Ordered By: Net Programmer on 02-24-2022 Albumin [Mass/Vol] 4.2 g/dL Normal 3.7-4.7 [facility]; [facility] Work Phone: Comment on above: January 2022; PATIENT WAS FASTINGPERFORMED BY: [facility] [id number] [facility] [id number] ALP [Catalytic activity/Vol] 99 U/L Normal 44-121 [facility]; [facility] Work Phone: Comment on above: January 2022; PATIENT WAS FASTINGPERFORMED BY: [facility] [id number] [facility] [place] [id number] ALT [Catalytic activity/Vol] 39 U/L Abnormal 0-32 [facility]; [facility] Work Phone: Comment on above: January 2022; PATIENT WAS FASTINGPERFORMED BY: [facility] [id number] [facility] [place] [id number] AST [Catalytic activity/Vol] 40 U/L Normal 0-40 [facility]; [facility] Work Phone: Comment on above: January 2022; PATIENT WAS FASTINGPERFORMED BY: [facility] Aywvah6091 Mcghee RoadNovant Health Ballantyne Medical Centerin [place] [id number] Bilirubin [Mass/Vol] 0.5 mg/dL Normal 0.0-1.2 [facility]; [facility] Work Phone: Comment on above: January 2022; PATIENT WAS FASTINGPERFORMED BY: CB [facility] Wpfezm9397 Mcghee RoadDublin [place] [id number] Bilirubin.direct [Mass/Vol] 0.14 mg/dL Normal 0.00-0.40 [facility]; [facility] Work Phone: Comment on above: January 2022; PATIENT WAS FASTINGPERFORMED BY: CB [facility] Okvlgt67[address] [facility]in [place] [id number] Protein [Mass/Vol] 7.3 g/dL Normal 6.0-8.5 [facility]; [facility] Work Phone: Comment on above: January 2022; PATIENT WAS FASTINGPERFORMED BY: [facility] Jitoko[address] [facility] [id number] Blood Glucose , Office (8496 2)Ordered By: Latrice Levy on 11-18-2021 Glucose Glucometer (BldC) [Moles/Vol] 138 1 Normal [facility]; [facility] Work Phone: HgA1C , Office ([phone])Ordere d By: Latrice Levy on 11-18-2021 HbA1c (Bld) [Mass fraction] 6.8 % Normal 4.6 - 7.1 [facility]; [facility] Work Phone: CALCIFEDIOL ([phone])Ordered B y: Net Programmer on 11-12-2021 25-hydroxyvitamin D [Mass/Vol] 41.9 ng/mL Normal 30.0-100.0 [facility]; [facility] Work Phone: Comment on above: Vitamin D deficiency has been defined by the [place] of[place]icine and an Endocrine Society practice guideline as alevel of serum 25-OH vitamin D less than 20 ng/mL (1,2).The Endocrine Society went on to further define vitamin Dinsufficiency as a level between 21 and 29 ng/mL (2).1. IOM ([place] of Medicine). 2010. Dietary reference intakes for calcium and D. [place]: The National Academies Press.2. Ace MF, Lurdes WELLS, Cynthia COFFMAN, et al. Evaluation, treatment, and prevention of vitamin D deficiency: an Endocrine Society clinical practice guideline. JCEM. 2010; 96(7):1911-30. Nov 12; PATIENT WAS FASTINGPERFORMED BY: CB [facility] Khmeio9605 [address] RoadDublin [place] [id number] CBC & PLATELETS (AUTO) (8502 7)Ordered By: Net Programmer on 11-12-2021 Erythrocyte distribution width (RBC) [Ratio] 12.9 % Normal 11.7-15.4 [facility]; [facility] Work Phone: Comment on above: Nov 12; PATIENT WAS FASTINGPERFORMED BY: CB [facility] Bpeoee4502 [address] RoadDublin [place] [id number] Hematocrit (Bld) [Volume fraction] 39.2 % Normal 34.0-46.6 [facility]; [facility] Work Phone: Comment on above: Nov 12; PATIENT WAS FASTINGPERFORMED BY: CB [facility] Diqbtj4652 [address] RoadDublin [place] [id number] Hemoglobin (Bld) [Mass/Vol] 13.3 g/dL Normal 11.1-15.9 [facility]; [facility] Work Phone: Comment on above: Nov 12; PATIENT WAS FASTINGPERFORMED BY: CB [facility] Zdaxld6684 [address] RoadDublin [place] [id number] MCH (RBC) [Entitic mass] 29.9 pg Normal 26.6-33.0 [facility]; [facility] Work Phone: Comment on above: Nov 12; PATIENT WAS FASTINGPERFORMED BY: CB [facility] Crrzsx9386 [address] RoadDublin [place] [id number] MCHC (RBC) [Mass/Vol] 33.9 g/dL Normal 31.5-35.7 [facility] prehensive Internal Medicine; [facility] Work Phone: Comment on above: Nov 12; PATIENT WAS FASTINGPERFORMED BY: CB [facility] Kmitcv0026 [address] RoadDublin [place] [id number] MCV (RBC) [Entitic vol] 88 fL Normal 79-97 [facility]; [facility] Work Phone: Comment on above: Nov 12; PATIENT WAS FASTINGPERFORMED BY: CB [facility] Cccmpq8312 [address] RoadDublin [place] [id number] Platelets (Bld) [#/Vol] 119 10*3/uL Abnormal 150-450 [facility]; [facility] Work Phone: Comment on above: Nov 12; PATIENT WAS FASTINGPERFORMED BY: CB [facility] Qsxikd2642 [address] RoadDublin [place] [id number] RBC (Bld) [#/Vol] 4.45 10*6/uL Normal 3.77-5.28 [facility]; [facility] Work Phone: Comment on above: Nov 12; PATIENT WAS FASTINGPERFORMED BY: CB [facility] Itggsv9439 [address] RoadDublin [place] [id number] WBC (Bld) [#/Vol] 5.7 10*3/uL Normal 3.4-10.8 [facility]; [facility] Work Phone: Comment on above: Nov 12; PATIENT WAS FASTINGPERFORMED BY: CB [facility] Lhfsuh3928 [address] RoadDublin [place] [id number] LIPID PANEL (34859)Ordered B y: Net Programmer on 11-12-2021 Cholesterol [Mass/Vol] 177 mg/dL Normal 100-199 Co [facility] centerensive [facility]; [facility] Work Phone: Comment on above: Nov 12 2021; PATIENT WAS FASTINGPERFORMED BY: CB [facility] Biydnb5615 [address] RoadDublin [place] [id number] Cholesterol in HDL [Mass/Vol] 54 mg/dL Normal [facility]; [facility] Work Phone: Comment on above: Nov 12 2021; PATIENT WAS FASTINGPERFORMED BY: CB [facility] Bynezu5468 [address] RoadDublin [place] [id number] Triglyceride [Mass/Vol] 88 mg/dL Normal 0-149 [facility]; [facility] Work Phone: Comment on above: Nov 12 2021; PATIENT WAS FASTINGPERFORMED BY: CB [facility] Nxrgjc4520 [address] RoadDublin [place] [id number] LIPID PANEL (77309) 16 mg/dL Normal 5-40 Compr ensive Internal Medicine; [facility] Work Phone: Comment on above: Nov 12 2021; PATIENT WAS FASTINGPERFORMED BY: CB [facility] Sptlvp4118 [address] RoadDublin [place] [id number] LIPID PANEL (70281) 107 mg/dL Abnormal 0-99 [facility]ensive [facility]; [facility] Work Phone: Comment on above: Nov 12 2021; PATIENT WAS FASTINGPERFORMED BY: CB [facility] Lnibma3672 [address] RoadDublin [place] [id number] LIPID PANEL (41146) 2.0 {ratio} Normal 0.0-3.2 [facility]; [facility] Work Phone: Comment on above: LDL/HDL Ratio Men Wo men 1/2 Avg.Risk 1.0 1.5 Avg.Risk 3.6 3.2 2X Avg.Risk 6.2 5.0 3X Avg.Risk 8.0 6.1 Nov 12 2021; PATIENT WAS FASTINGPERFORMED BY: CB [facility] Rzcebc3284 [address] IDYIA InnovationsDublin [place] [id number] Metabolic Panel, Comprehensi ve (64327)Ordered By: Net Programmer on 11-12-2021 Albumin [Mass/Vol] 4.5 g/dL Normal 3.7-4.7 [facility]; [facility] Work Phone: Comment on above: Nov 12 2021; PATIENT WAS FASTINGPERFORMED BY: CB [facility] Pafnln6273 [address] RoadDublin [place] [id number] Albumin/Globulin [Mass ratio] 1.7 {ratio} Normal 1.2-2.2 [facility]; [facility] Work Phone: Comment on above: Nov 12 2021; PATIENT WAS FASTINGPERFORMED BY: CB [facility] Iucgla4235 [address] RoadDublin [place] [id number] ALP [Catalytic activity/Vol] 94 U/L Normal 44-121 [facility]; [facility] Work Phone: Comment on above: Please note refere nce interval change Nov 12 2021; PATIENT WAS FASTINGPERFORMED BY: CB [facility] Vwzpam7428 [address] RoadDublin [place] [id number] ALT [Catalytic activity/Vol] 47 U/L Abnormal 0-32 [facility]; [facility] Work Phone: Comment on above: Nov 12 2021; PATIENT WAS FASTINGPERFORMED BY: CB [facility] Jjpxqw6348 [address] RoadDublin [place] [id number] AST [Catalytic activity/Vol] 45 U/L Abnormal 0-40 [facility]; [facility] Work Phone: Comment on above: Nov 12 2021; PATIENT WAS FASTINGPERFORMED BY: CB [facility] Okkoey3521 [address] RoadDublin [place] [id number] Bilirubin [Mass/Vol] 0.5 mg/dL Normal 0.0-1.2 Comp rehensive Internal Medicine; [facility] Work Phone: Comment on above: Nov 12 2021; PATIENT WAS FASTINGPERFORMED BY: CB [facility] Ifxtgp2990 [address] RoadDublin [place] [id number] Calcium [Mass/Vol] 9.7 mg/dL Normal 8.7-10.3 [facility]; [facility] Work Phone: Comment on above: Nov 12 2021; PATIENT WAS FASTINGPERFORMED BY: CB [facility] Iufqpw9413 [address] RoadDublin [place] [id number] Chloride [Moles/Vol] 103 mmol/L Normal 96-106 Comp rehensive Internal Medicine; [facility] Work Phone: Comment on above: Nov 12 2021; PATIENT WAS FASTINGPERFORMED BY: ANGELI Coello6370 Litzy KimThree Rivers Medical Center [id number] CO2 [Moles/Vol] 24 mmol/L Normal 20-29 [facility] Internal Medicine; [facility] Work Phone: Comment on above: Nov 12 2021; PATIENT WAS FASTINGPERFORMED BY: ANGELI Coello6370 Litzy RosasFormerly [facility] [id number] Creatinine [Mass/Vol] 0.73 mg/dL Normal 0.57-1.00 Com prehensive Internal Medicine; [facility] Work Phone: Comment on above: Nov 12 2021; PATIENT WAS FASTINGPERFORMED BY: ANGELI Coello[address] RalphFormerly [facility] [id number] GFR/1.73 sq M.predicted among blacks CKD-EPI (S/P/Bld) [...] WAS FASTINGPERFORMED BY: ANGELI Coello6370 Litzy RosasFormerly [facility] [id number] GFR/1.73 sq M.predicted among non-blacks CKD-EPI (S/P/Bld) [Vol rate/Area] 80 mL/min/1.73 Normal [facility]; [facility] Work Phone: Comment on above: Nov 12 2021; PATIENT WAS FASTINGPERFORMED BY: ANGELI Coello6370 Litzy CartyAtrium Health Wake Forest Baptist [id number] Globulin (S) [Mass/Vol] 2.7 g/dL Normal 1.5-4.5 C omprehensive Internal Medicine; [facility] Work Phone: Comment on above: Nov 12 2021; PATIENT WAS FASTINGPERFORMED BY: CB [facility] Opxrfm1326 [address] RoadDublin [place] [id number] Glucose [Mass/Vol] 129 mg/dL Abnormal 65-99 [facility]; [facility] Work Phone: Comment on above: Nov 12 2021; PATIENT WAS FASTINGPERFORMED BY: CB [facility] Ldjnpw4950 [address] RoadDublin [place] [id number] Potassium [Moles/Vol] 4.7 mmol/L Normal 3.5-5.2 [facility] Internal Medicine; [facility] Work Phone: Comment on above: Nov 12 2021; PATIENT WAS FASTINGPERFORMED BY: CB [facility] Eeppcp5637 [address] RoadDublin [place] [id number] Protein [Mass/Vol] 7.2 g/dL Normal 6.0-8.5 [facility]; [facility] Work Phone: Comment on above: Nov 12 2021; PATIENT WAS FASTINGPERFORMED BY: CB [facility] Liahbr5567 [address] RoadDublin [place] [id number] Sodium [Moles/Vol] 139 mmol/L Normal 134-144 [facility]; [facility] Work Phone: Comment on above: Nov 12 2021; PATIENT WAS FASTINGPERFORMED BY: CB [facility] Fwmwov5849 [address] RoadDublin [place] [id number] Urea nitrogen [Mass/Vol] 14 mg/dL Normal 8-27 [facility] Internal Medicine; [facility] Work Phone: Comment on above: Nov 12 2021; PATIENT WAS FASTINGPERFORMED BY: CB [facility] Gilehk4568 [address] RoadDublin [place] [id number] Urea nitrogen/Creatinine [Mass ratio] 19 mg/mg Normal 12-28 [facility] Internal Medicine; [facility] Work Phone: Comment on above: Nov 12 2021; PATIENT WAS FASTINGPERFORMED BY: CB [facility] Eqvkmi2522 [address] RoadDublin [place] [id number] TSH (THYROID STIMULATING HOR BARRON) ([id number])Ordered By: Net Programmer on 11-12-2021 TSH Qn 3.650 {uIU/mL} Normal 0.450-4.50 0 [facility]; [facility] Work Phone: Comment on above: NOV 12 2021; PATIENT WAS FASTINGPERFORMED BY: LabcoVirtua MarltonEgowkk0401 McgheeLake Regional Health System [id number] Blood Glucose , Office (8296 2)Ordered By: Nellie Knox on 08-13-2021 Glucose Glucometer (BldC) [Moles/Vol] 198 1 Normal [facility]; [facility] Work Phone: Comment on above: 198 HgA1C , Office ([phone])Ordere d By: Nellie Knox on 08-13-2021 HbA1c (Bld) [Mass fraction] 7.9 % Abnormal 4.6 - 7.1 [facility]; [facility] Work Phone: Blood Glucose , Office (9096 2)Ordered By: Haseeb Brizuela on 03-19-2021 Glucose Glucometer (BldC) [Moles/Vol] 197 1 Normal [facility]; [facility] Work Phone: HgA1C , Office ([phone])Ordere d By: Haseeb Brizuela on 03-19-2021 HbA1c (Bld) [Mass fraction] 7.4 % Abnormal 4.6 - 7.1 [facility]; [facility] Work Phone: CALCIFEDIOL ([phone])Ordered B y: Net Programmer on 03-13-2021 25-hydroxyvitamin D [Mass/Vol] 37.5 ng/mL Normal 30.0-100.0 [facility]; [facility] Work Phone: Comment on above: Vitamin D deficiency has been defined by the [place] ofMedicine and an Endocrine Society practice guideline as alevel of serum 25-OH vitamin D less than 20 ng/mL (1,2).The Endocrine Society went on to further define vitamin Dinsufficiency as a level between 21 and 29 ng/mL (2).1. IOM ([place] of Medicine). 2010. Dietary reference intakes for calcium and D. [place]: The National Academies Press.2. Ace BILLINGSLEY, Lurdes WELLS, Cynthia COFFMAN, et al. Evaluation, treatment, and prevention of vitamin D deficiency: an Endocrine Society clinical practice guideline. JCEM. 2010; 96(7):1911-30. PATIENT WAS FASTINGP ERFORMED BY: CB [facility] Rqnvnk4149 [address] RoadDublin [place] [id number] LIPID PANEL (47333)Ordered B y: Net Programmer on 03-13-2021 Cholesterol [Mass/Vol] 228 mg/dL Abnormal 100-199 [facility] centerensive [facility]; [facility] Work Phone: Comment on above: PATIENT WAS FASTINGP ERFORMED BY: CB [facility] Kmghrq2666 [address] RoadDublin [place] [id number] Cholesterol in HDL [Mass/Vol] 47 mg/dL Normal [facility]; [facility] Work Phone: Comment on above: PATIENT WAS FASTINGP ERFORMED BY: CB [facility] Wsfsvf0978 [address] RoadDublin [place] [id number] Triglyceride [Mass/Vol] 141 mg/dL Normal 0-149 C ompwestern reserve hospitalensive Internal Medicine; [facility] Work Phone: Comment on above: PATIENT WAS FASTINGP ERFORMED BY: CB [facility] Labxip0509 [address] RoadDublin [place] [id number] LIPID PANEL (23356) 26 mg/dL Normal 5-40 Compr ensive Internal Medicine; [facility] Work Phone: Comment on above: PATIENT WAS FASTINGP ERFORMED BY: CB [facility] Gpwjyt3383 [address] RoadDublin [place] [id number] LIPID PANEL (72775) 155 mg/dL Abnormal 0-99 Compr ensive Internal Medicine; [facility] Work Phone: Comment on above: PATIENT WAS FASTINGP ERFORMED BY: CB [facility] Nwtlkx3588 [address] RoadDublin [place] [id number] LIPID PANEL (82231) 3.3 {ratio} Abnormal 0.0-3.2 [facility]; [facility] Work Phone: Comment on above: LDL/HDL Ratio Men Wo men 1/2 Avg.Risk 1.0 1.5 Avg.Risk 3.6 3.2 2X Avg.Risk 6.2 5.0 3X Avg.Risk 8.0 6.1 PATIENT WAS FASTINGP ERFORMED BY: Delivered6370 NoveloNovant Health Ballantyne Medical Centerin [place] [id number] TSH (THYROID STIMULATING HOR BARRON) (66646)Ordered By: Net Programmer on 03-13-2021 TSH Qn 3.770 {uIU/mL} Normal 0.450-4.50 0 [facility]; [facility] Work Phone: Comment on above: PATIENT WAS FASTINGP ERFORMED BY: Delivered6370 ConferenceEdgein [place] [id number] VITAMIN B12 AND FOLATES (829 70)Ordered By: Net Programmer on 03-13-2021 Cobalamin (Vitamin B12) [Mass/Vol] 825 pg/mL Normal 232-1245 [facility]; [facility] Work Phone: Comment on above: PATIENT WAS FASTINGP ERFORMED BY: Delivered[address] IDYIA InnovationsNovant Health Ballantyne Medical Centerin [place] [id number] Folate [Mass/Vol] 8.7 ng/mL Normal Compreh ensive Internal Medicine; [facility] Work Phone: Comment on above: A serum folate stephanie ntration of less than 3.1 ng/mL isconsidered to represent clinical deficiency. PATIENT WAS FASTINGP ERFORMED BY: Delivered6370 McgheeLake Regional Health System [id number] [facility] 02-14-2021 [facility] Nurse Visit (COVAMD) KAREN VILLALOBOS ([id number]) 1945 F Date Time Provider Department 02/14/21 JAMIL IVERSON (ANALYTICS ANALYST) COVBELLE During your visit today, we recorded the following information about you: Allergies As of Date: 02/14/2021 Noted Allergy Reaction PENICILLINS 03/03/2006 4 - Hives Date Reviewed: 11/06/2019 Reviewed by: Celena Kaba - Fully Assessed Order(s):[employer] SARS-COV-2 VACCINE 2D DOSE APPT [[id number]] Order #: [id number] Prescriptions as of 02/14/2021 Sig: VITAMIN E [...] cancer in sister [Z80.*12/19/2018 Encounter Status:[facility] Blood Glucose , Office (8296 2)Ordered By: Haseeb Sherwood on 06-10-2020 Glucose Glucometer (BldC) [Moles/Vol] 138 1 Normal [facility] Work Phone: CALCIFEDIOL ([phone])Ordered B y: Net Programmer on 06-10-2020 25-Hydroxyvitamin D2+25-Hydroxyvitamin D3 [Mass/Vol] 38.8 ng/mL Normal 30.0-100.0 [facility] Work Phone: Comment on above: Vitamin D deficiency has been defined by the [place] ofMedicine and an Endocrine Society practice guideline as alevel of serum 25-OH vitamin D less than 20 ng/mL (1,2).The Endocrine Society went on to further define vitamin Dinsufficiency as a level between 21 and 29 ng/mL (2).1. IOM ([place] of Medicine). 2010. Dietary reference intakes for calcium and D. [place]: The National Academies Press.2. Ace MF, Lurdes NC, Cynthia COFFMAN, et al. Evaluation, treatment, and prevention of vitamin D deficiency: an Endocrine Society clinical practice guideline. JCEM. 2010; 96(7):1911-30. PATIENT NOT FASTINGP ERFORMED BY: [employer] Assist Akyiku59[address] Browsarityblin [place] [id number] HGB A1C (93777)Ordered By: S ystem Steam Fitter on 06-10-2020 HbA1c (Bld) [Mass fraction] 7.4 % Abnormal 4.8-5.6 [facility] Work Phone: Comment on above: . Prediabetes: 5.7 - 6.4 Diabetes: >6.4 Glycemic control for adults with diabetes: <7.0 PATIENT NOT FASTINGP ERFORMED BY: [employer]70 ConferenceEdgeblin [place] [id number] VITAMIN B12 AND FOLATES (826 07)Ordered By: Net Programmer on 06-10-2020 Cobalamin (Vitamin B12) [Mass/Vol] 648 pg/mL Normal 232-1245 [facility] Work Phone: Comment on above: PATIENT NOT FASTINGP ERFORMED BY: [employer] Browsarityblin [place] [id number] Folate [Mass/Vol] 8.0 ng/mL Normal [facility] Internal Medicine Work Phone: Comment on above: A serum folate stephanie ntration of less than 3.1 ng/mL isconsidered to represent clinical deficiency. PATIENT NOT FASTINGP ERFORMED BY: [employer] Assist Bwdkzx9510 [address] RoadDublin [place] [id number] LIPID PANEL (80359)Ordered B y: Net Programmer on 06-05-2020 Cholesterol [Mass/Vol] 242 mg/dL Abnormal 100-199 Co mprehensive Internal Medicine Work Phone: Comment on above: PATIENT WAS FASTINGP ERFORMED BY: Medstro LabLaticínios Bom Gosto/LBR Lziojv[address] IDYIA InnovationsDublin [place] [id number] Cholesterol in HDL [Mass/Vol] 48 mg/dL Normal [facility] Work Phone: Comment on above: PATIENT WAS FASTINGP ERFORMED BY: ANGELI LabComauri Hwpxjs86[address] [facility] Hospitalblin [place] [id number] Cholesterol in LDL [Mass/Vol] 170 mg/dL Abnormal 0-99 [facility] Work Phone: Comment on above: PATIENT WAS FASTINGP ERFORMED BY: ANGELI LabComauri Bormks7[address] [facility] Hospitalblin [place] [id number] Cholesterol in LDL/Cholesterol in HDL [Mass ratio] 3.5 {ratio} Abnormal 0.0-3.2 [facility] Work Phone: Comment on above: LDL/HDL Ratio Men Wo men 1/2 Avg.Risk 1.0 1.5 Avg.Risk 3.6 3.2 2X Avg.Risk 6.2 5.0 3X Avg.Risk 8.0 6.1 PATIENT WAS FASTINGP ERFORMED BY: ANGELI LabDajuan WeldonAqnyhz2990 [address] [facility] [id number] Cholesterol in VLDL [Mass/Vol] 24 mg/dL Normal 5-40 [facility] Work Phone: Comment on above: PATIENT WAS FASTINGP ERFORMED BY: ANGELI LabComauri Ykmwoc9839 [facility] Hospitalblin [place] [id number] Triglyceride [Mass/Vol] 121 mg/dL Normal 0-149 C omprehensive Internal Medicine Work Phone: Comment on above: PATIENT WAS FASTINGP ERFORMED BY: ANGELI LabComauri Coumno7458 [facility]in [place] [id number] Metabolic Panel, Comprehensi ve ([id number])Ordered By: Net Programmer on 06-05-2020 Albumin [Mass/Vol] 4.4 g/dL Normal 3.7-4.7 Compre [facility]st. [facility] Internal Medicine Work Phone: Comment on above: PATIENT WAS FASTINGP ERFORMED BY: ANGELI [facility] Ogpvkd6732 [address] [facility]in [place] [id number] Albumin/Globulin [Mass ratio] 1.5 {ratio} Normal 1.2-2.2 [facility] Work Phone: Comment on above: PATIENT WAS FASTINGP ERFORMED BY: ANGELI [facility] Kydqrg6641 [address] RoadDublin [place] [id number] ALP [Catalytic activity/Vol] 91 [iU]/L Normal 39-117 [facility] Work Phone: Comment on above: PATIENT WAS FASTINGP ERFORMED BY: ANGELI [facility] Urvttq0007 [address] RoadDublin [place] [id number] ALP [Catalytic activity/Vol] 91 U/L Normal 39-117 [facility] Work Phone: Comment on above: PATIENT WAS FASTINGP ERFORMED BY: ANGELI [facility] Nmosdo9416 [address] RoadDublin [place] [id number] ALT [Catalytic activity/Vol] 37 [iU]/L Abnormal 0-32 [facility] Work Phone: Comment on above: PATIENT WAS FASTINGP ERFORMED BY: ANGELI [facility] Reqvcq8071 [address] RoadDublin [place] [id number] ALT [Catalytic activity/Vol] 37 U/L Abnormal 0-32 [facility] Work Phone: Comment on above: PATIENT WAS FASTINGP ERFORMED BY: ANGELI [facility] Ituurg9797 [address] RoadDublin [place] [id number] AST [Catalytic activity/Vol] 40 [iU]/L Normal 0-40 [facility] Work Phone: Comment on above: PATIENT WAS FASTINGP ERFORMED BY: [facility] Ndeqwt7586 [address] RoadDublin [place] [id number] AST [Catalytic activity/Vol] 40 U/L Normal 0-40 [facility] Work Phone: Comment on above: PATIENT WAS FASTINGP ERFORMED BY: [facility] Jclcez4383 [address] RoadDublin [place] [id number] Bilirubin [Mass/Vol] 0.5 mg/dL Normal 0.0-1.2 Comp [facility] Internal Medicine Work Phone: Comment on above: PATIENT WAS FASTINGP ERFORMED BY: [facility] Sjaofl3483 [address] RoadDublin [place] [id number] Calcium [Mass/Vol] 9.9 mg/dL Normal 8.7-10.3 [facility] Internal Medicine Work Phone: Comment on above: PATIENT WAS FASTINGP ERFORMED BY: CB [facility] Jibaou2678 [address] RoadDublin [place] [id number] Chloride [Moles/Vol] 105 mmol/L Normal 96-106 Comp rehensive Internal Medicine Work Phone: Comment on above: PATIENT WAS FASTINGP ERFORMED BY: CB [facility] Capkli8604 [address] RoadDublin [place] [id number] CO2 [Moles/Vol] 26 mmol/L Normal 20-29 Comprehen [facility] Internal Medicine Work Phone: Comment on above: PATIENT WAS FASTINGP ERFORMED BY: CB [facility] Kcdyzm1953 [address] RoadDublin [place] [id number] Creatinine [Mass/Vol] 0.81 mg/dL Normal 0.57-1.00 [facility]ensive [facility] Work Phone: Comment on above: PATIENT WAS FASTINGP ERFORMED BY: CB [facility] Jqpeom5407 [address] RoadDublin [place] [id number] GFR/1.73 sq M predicted among blacks CKD-EPI (S/P/Bld) [Vol rate/Area] 83 mL/min/1.73 Normal [facility] Work Phone: Comment on above: PATIENT WAS FASTINGP ERFORMED BY: CB [facility] Yofois7198 [address] RoadDublin [place] [id number] GFR/1.73 sq M predicted among non-blacks CKD-EPI (S/P/Bld) [Vol rate/Area] 72 mL/min/1.73 Normal [facility] Work Phone: Comment on above: PATIENT WAS FASTINGP ERFORMED BY: CB [facility] Elgmhb9973 [address] RoadDublin [place] [id number] Globulin (S) [Mass/Vol] 3.0 g/dL Normal 1.5-4.5 [facility] Work Phone: Comment on above: PATIENT WAS FASTINGP ERFORMED BY: CB [facility] Qpigip5680 [address] RoadDublin [place] [id number] Glucose [Mass/Vol] 154 mg/dL Abnormal 65-99 [facility] Internal [facility] Work Phone: Comment on above: PATIENT WAS FASTINGP ERFORMED BY: ANGELI [facility] Bajnxa9619 [address] RoadDublin [place] [id number] Potassium [Moles/Vol] 5.3 mmol/L Abnormal 3.5-5.2 [facility] Internal Medicine Work Phone: Comment on above: PATIENT WAS FASTINGP ERFORMED BY: ANGELI [facility] Zjnpfr3773 [address] RoadDublin [place] [id number] Protein [Mass/Vol] 7.4 g/dL Normal 6.0-8.5 [facility] Internal Medicine Work Phone: Comment on above: PATIENT WAS FASTINGP ERFORMED BY: ANGELI [facility] Ntoefm9047 [address] Roadblin [place] [id number] Sodium [Moles/Vol] 143 mmol/L Normal 134-144 [facility] Internal Medicine Work Phone: Comment on above: PATIENT WAS FASTINGP ERFORMED BY: ANGELI [facility] Bpsnrk6858 [address] Roadblin [place] [id number] Urea nitrogen [Mass/Vol] 11 mg/dL Normal 8-27 [facility] Internal Medicine Work Phone: Comment on above: PATIENT WAS FASTINGP ERFORMED BY: [facility] Brutiz5353 [address] Roadblin [place] [id number] Urea nitrogen/Creatinine [Mass ratio] 14 mg/mg Normal 12-28 [facility] Internal Medicine Work Phone: Comment on above: PATIENT WAS FASTINGP ERFORMED BY: [facility] Rizrro5367 [address] RoadDublin [place] [id number] TSH (THYROID STIMULATING HOR BARRON) ([id number])Ordered By: Net Programmer on 06-05-2020 TSH Qn 2.590 {uIU/mL} Normal 0.450-4.50 0 [facility] Internal Medicine Work Phone: Comment on above: PATIENT WAS FASTINGP ERFORMED BY: [facility] Fppdso0113 [address] RoadDublin [place] [id number] LIPID PANEL ([id number])Ordered B y: Net Programmer on 02-07-2020 Cholesterol [Mass/Vol] 224 mg/dL Abnormal 100-199 [facility] Work Phone: Comment on above: PATIENT WAS FASTINGP ERFORMED BY: ANGELI LabComauri Bpfiqn7555 [address] RoadDublin [place] [id number] Cholesterol in HDL [Mass/Vol] 50 mg/dL Normal [facility] Work Phone: Comment on above: PATIENT WAS FASTINGP ERFORMED BY: ANGELI [facility] Yigxsx4654 [address] RoadDublin [place] [id number] Cholesterol in LDL [Mass/Vol] 149 mg/dL Abnormal 0-99 [facility] Work Phone: Comment on above: PATIENT WAS FASTINGP ERFORMED BY: ANGELI LabComauri WeldonIyenvp[address] [facility] [place] [id number] Cholesterol in LDL/Cholesterol in HDL [Mass ratio] 3.0 {ratio} Normal 0.0-3.2 [facility] Work Phone: Comment on above: LDL/HDL Ratio Men Wo men 1/2 Avg.Risk 1.0 1.5 Avg.Risk 3.6 3.2 2X Avg.Risk 6.2 5.0 3X Avg.Risk 8.0 6.1 PATIENT WAS FASTINGP ERFORMED BY: ANGELI LabComauri Zzdjfc[address] [facility] [place] [id number] Cholesterol in VLDL [Mass/Vol] 25 mg/dL Normal 5-40 [facility] Work Phone: Comment on above: PATIENT WAS FASTINGP ERFORMED BY: ANGELI [facility] Nzdkgd3966 [address] RoadDublin [place] [id number] Triglyceride [Mass/Vol] 123 mg/dL Normal 0-149 [facility] Internal [facility] Work Phone: Comment on above: PATIENT WAS FASTINGP ERFORMED BY: ANGELI [facility] Oeobrk1454 [address] RoadDublin [place] [id number] Metabolic Panel, Comprehensi ve ([id number])Ordered By: Net Programmer on 02-07-2020 Albumin [Mass/Vol] 4.5 g/dL Normal 3.7-4.7 [facility] Work Phone: Comment on above: PATIENT WAS FASTINGP ERFORMED BY: CB [facility] Wzhxmb0991 [address] RoadDublin [place] [id number] Albumin/Globulin [Mass ratio] 1.6 {ratio} Normal 1.2-2.2 [facility] Work Phone: Comment on above: PATIENT WAS FASTINGP ERFORMED BY: CB [facility] Grrlsm3051 [address] RoadDublin [place] [id number] ALP [Catalytic activity/Vol] 91 [iU]/L Normal 39-117 [facility] Work Phone: Comment on above: PATIENT WAS FASTINGP ERFORMED BY: CB [facility] Ncedji4174 [address] RoadDublin [place] [id number] ALP [Catalytic activity/Vol] 91 U/L Normal 39-117 [facility] Work Phone: Comment on above: PATIENT WAS FASTINGP ERFORMED BY: [facility] Zugqep1356 [address] RoadDublin [place] [id number] ALT [Catalytic activity/Vol] 44 [iU]/L Abnormal 0-32 [facility] Work Phone: Comment on above: PATIENT WAS FASTINGP ERFORMED BY: [facility] Oijzgj8321 [address] RoadDublin [place] [id number] ALT [Catalytic activity/Vol] 44 U/L Abnormal 0-32 [facility] Work Phone: Comment on above: PATIENT WAS FASTINGP ERFORMED BY: CB [facility] Kcmpsm7219 [address] RoadDublin [place] [id number] AST [Catalytic activity/Vol] 43 [iU]/L Abnormal 0-40 [facility] Work Phone: Comment on above: PATIENT WAS FASTINGP ERFORMED BY: CB [facility] Fquprv8645 [address] RoadDublin [place] [id number] AST [Catalytic activity/Vol] 43 U/L Abnormal 0-40 [facility] Work Phone: Comment on above: PATIENT WAS FASTINGP ERFORMED BY: CB [facility] Okqvwf5866 [address] RoadDublin [place] [id number] Bilirubin [Mass/Vol] 0.4 mg/dL Normal 0.0-1.2 [facility] Work Phone: Comment on above: PATIENT WAS FASTINGP ERFORMED BY: CB [facility] Mminhv1596 [address] RoadDublin [place] [id number] Calcium [Mass/Vol] 10.1 mg/dL Normal 8.7-10.3 [facility] Work Phone: Comment on above: PATIENT WAS FASTINGP ERFORMED BY: CB [facility] Gbcsyj5430 [address] RoadDublin [place] [id number] Chloride [Moles/Vol] 102 mmol/L Normal 96-106 [facility] Work Phone: Comment on above: PATIENT WAS FASTINGP ERFORMED BY: CB [facility] Lskstt9794 [address] RoadDublin [place] [id number] CO2 [Moles/Vol] 24 mmol/L Normal 20-29 [facility] Internal Medicine Work Phone: Comment on above: PATIENT WAS FASTINGP ERFORMED BY: CB [facility] Lyrrtu6740 [address] RoadDublin [place] [id number] Creatinine [Mass/Vol] 0.79 mg/dL Normal 0.57-1.00 [facility] Internal Medicine Work Phone: Comment on above: PATIENT WAS FASTINGP ERFORMED BY: CB [facility] Nwuypy5331 [address] RoadDublin [place] [id number] GFR/1.73 sq M predicted among blacks CKD-EPI (S/P/Bld) [Vol rate/Area] 85 mL/min/1.73 Normal [facility] Work Phone: Comment on above: PATIENT WAS FASTINGP ERFORMED BY: CB [facility] Jofcwb8961 [address] RoadDublin [place] [id number] GFR/1.73 sq M predicted among non-blacks CKD-EPI (S/P/Bld) [Vol rate/Area] 74 mL/min/1.73 Normal [facility] Internal Medicine Work Phone: Comment on above: PATIENT WAS FASTINGP ERFORMED BY: CB [facility] Olcvnj0816 [address] RoadDublin [place] [id number] Globulin (S) [Mass/Vol] 2.9 g/dL Normal 1.5-4.5 [facility] Work Phone: Comment on above: PATIENT WAS FASTINGP ERFORMED BY: CB [facility] Onhkzl1981 [address] RoadDublin [place] [id number] Glucose [Mass/Vol] 135 mg/dL Abnormal 65-99 [facility] Internal Medicine Work Phone: Comment on above: PATIENT WAS FASTINGP ERFORMED BY: CB [facility] Lisetu6347 [address] RoadDublin [place] [id number] Potassium [Moles/Vol] 4.4 mmol/L Normal 3.5-5.2 [facility] Internal Medicine Work Phone: Comment on above: PATIENT WAS FASTINGP ERFORMED BY: [facility] Uxdxxr5276 [address]Dublin [place] [id number] Protein [Mass/Vol] 7.4 g/dL Normal 6.0-8.5 [facility] Work Phone: Comment on above: PATIENT WAS FASTINGP ERFORMED BY: CB [facility] Vnlphh2173 [address] RoadDublin [place] [id number] Sodium [Moles/Vol] 141 mmol/L Normal 134-144 [facility] Work Phone: Comment on above: PATIENT WAS FASTINGP ERFORMED BY: CB [facility] Mmcgzj4738 [address] RoadDublin [place] [id number] Urea nitrogen [Mass/Vol] 13 mg/dL Normal 8-27 [facility] Internal Medicine Work Phone: Comment on above: PATIENT WAS FASTINGP ERFORMED BY: CB [facility] Qcgmtd5751 [address] RoadDublin [place] [id number] Urea nitrogen/Creatinine [Mass ratio] 16 mg/mg Normal 12-28 [facility] Internal Medicine Work Phone: Comment on above: PATIENT WAS FASTINGP ERFORMED BY: [facility]6370 [facility] [id number] TSH (THYROID STIMULATING HOR BARRON) ([id number])Ordered By: Net Programmer on 02-07-2020 TSH Qn 4.560 {uIU/mL} Abnormal 0.450-4.50 0 [facility] Work Phone: Comment on above: PATIENT WAS FASTINGP ERFORMED BY: [address] [id number] Blood Glucose , Office ([phone])on 11-06-2019 Glucose Glucometer (BldC) [Moles/Vol] 142 1 Normal [facility] Work Phone: HgA1C , Office (04202)on HbA1c (Bld) [Mass fraction] 7.1 % Normal 4.6 - 7.1 [facility] Work Phone: CBC, Platelets & Auto Diff ( [phone])Ordered By: Net Programmer on 10-31-2019 Basophils (Bld) [#/Vol] 0.0 {x10E3/uL} Normal 0.0-0.2 [facility] Work Phone: Comment on above: PATIENT WAS FASTINGP ERFORMED BY: [facility]6370 [facility] [id number] Basophils (Bld) [#/Vol] 0.0 10*3/uL Normal 0.0-0.2 [facility] Work Phone: Comment on above: PATIENT WAS FASTINGP ERFORMED BY: [facility]6370 [facility] [id number] Basophils/100 WBC (Bld) 0 % Normal [facility] Work Phone: Comment on above: PATIENT WAS FASTINGP ERFORMED BY: [facility]6[address] [facility] [id number] Eosinophils (Bld) [#/Vol] 0.0 {x10E3/uL} Normal 0.0-0.4 [facility] Work Phone: Comment on above: PATIENT WAS FASTINGP ERFORMED BY: [facility] [facility] [id number] Eosinophils (Bld) [#/Vol] 0.0 10*3/uL Normal 0.0-0.4 [facility] Work Phone: Comment on above: PATIENT WAS FASTINGP ERFORMED BY: [facility]6370 [facility] [id number] Eosinophils/100 WBC (Bld) 0 % Normal [facility] Work Phone: Comment on above: PATIENT WAS FASTINGP ERFORMED BY: [facility]6370 [facility] [id number] Erythrocyte distribution width (RBC) [Ratio] 14.1 % Normal 12.3-15.4 [facility] Work Phone: Comment on above: PATIENT WAS FASTINGP ERFORMED BY: [place] 3847370 [facility] [id number] Hematocrit (Bld) [Volume fraction] 38.2 % Normal 34.0-46.6 [facility] Work Phone: Comment on above: PATIENT WAS FASTINGP ERFORMED BY: [facility]6370 [facility] [id number] Hemoglobin (Bld) [Mass/Vol] 12.8 g/dL Normal 11.1-15.9 [facility] Work Phone: Comment on above: PATIENT WAS FASTINGP ERFORMED BY: [facility] [id number] Immature granulocytes (Bld) [#/Vol] 0.0 {x10E3/uL} Normal 0.0-0.1 [facility] Work Phone: Comment on above: PATIENT WAS FASTINGP ERFORMED BY: LabDonald [place] 2798870 [facility] [id number] Immature granulocytes (Bld) [#/Vol] 0.0 10*3/uL Normal 0.0-0.1 [facility] Work Phone: Comment on above: PATIENT WAS FASTINGP ERFORMED BY: ANGELI DawnS[facility] Ihwxjc9458 [facility] [id number] Immature granulocytes/100 WBC (Bld) 0 % Normal [facility] Work Phone: Comment on above: PATIENT WAS FASTINGP ERFORMED BY: ANGELI DawnS[facility] Bizmgx5696 [facility] [id number] Lymphocytes (Bld) [#/Vol] 1.6 {x10E3/uL} Normal 0.7-3.1 [facility] Work Phone: Comment on above: PATIENT WAS FASTINGP ERFORMED BY: ANGELI Weldonlin6370 [facility] [id number] Lymphocytes (Bld) [#/Vol] 1.6 10*3/uL Normal 0.7-3.1 [facility] Work Phone: Comment on above: PATIENT WAS FASTINGP ERFORMED BY: ANGELI Simmons Lznofo6334 [facility] [id number] Lymphocytes/100 WBC (Bld) 32 % Normal [facility] Work Phone: Comment on above: PATIENT WAS FASTINGP ERFORMED BY: ANGELI Weldonlin6370 [facility] [id number] MCH (RBC) [Entitic mass] 29.7 pg Normal 26.6-33.0 [facility] Work Phone: Comment on above: PATIENT WAS FASTINGP ERFORMED BY: ANGELI DawnS[facility] Oxounj6598 [facility] [id number] MCHC (RBC) [Mass/Vol] 33.5 g/dL Normal 31.5-35.7 [facility] prehensive Internal Medicine Work Phone: Comment on above: PATIENT WAS FASTINGP ERFORMED BY: ANGELI Weldonlin6370 [facility] [id number] MCV (RBC) [Entitic vol] 89 fL Normal 79-97 [facility] Work Phone: Comment on above: PATIENT WAS FASTINGP ERFORMED BY: ANGELI Coello6370 [address]Dublin [place] [id number] Monocytes (Bld) [#/Vol] 0.4 {x10E3/uL} Normal 0.1-0.9 [facility] Work Phone: Comment on above: PATIENT WAS FASTINGP ERFORMED BY: ANGELI Coello6[address]Dublin [place] [id number] Monocytes (Bld) [#/Vol] 0.4 10*3/uL Normal 0.1-0.9 [facility] Work Phone: Comment on above: PATIENT WAS FASTINGP ERFORMED BY: ANGELI Coello6[address]Dublin [place] [id number] Monocytes/100 WBC (Bld) 9 % Normal [facility] Work Phone: Comment on above: PATIENT WAS FASTINGP ERFORMED BY: ANGELI Coello6[address]Dublin [place] [id number] Neutrophils (Bld) [#/Vol] 3.0 {x10E3/uL} Normal 1.4-7.0 [facility] Work Phone: Comment on above: PATIENT WAS FASTINGP ERFORMED BY: ANGELI Coello6[address]Dublin [place] [id number] Neutrophils (Bld) [#/Vol] 3.0 10*3/uL Normal 1.4-7.0 [facility] Work Phone: Comment on above: PATIENT WAS FASTINGP ERFORMED BY: ANGELI Weldonlin6370 [address] RoadDublin [place] [id number] Neutrophils/100 WBC (Bld) 59 % Normal [facility] Work Phone: Comment on above: PATIENT WAS FASTINGP ERFORMED BY: ANGELI Coello6370 [address]Dublin [place] [id number] Platelets (Bld) [#/Vol] 105 {x10E3/uL} Abnormal 150-450 [facility] Work Phone: Comment on above: PATIENT WAS FASTINGP ERFORMED BY: ANGELI Coello6370 [address]Dublin [place] [id number] Platelets (Bld) [#/Vol] 105 10*3/uL Abnormal 150-450 [facility] Work Phone: Comment on above: PATIENT WAS FASTINGP ERFORMED BY: CB [facility] Kecldu1757 [address] RoadDublin [place] [id number] RBC (Bld) [#/Vol] 4.31 {x10E6/uL} Normal 3.77-5.28 [facility] Work Phone: Comment on above: PATIENT WAS FASTINGP ERFORMED BY: [facility] Bhgjmr0737 [address] RoadDublin [place] [id number] RBC (Bld) [#/Vol] 4.31 10*6/uL Normal 3.77-5.28 [facility] Internal Medicine Work Phone: Comment on above: PATIENT WAS FASTINGP ERFORMED BY: [facility] Zizdyh8150 [address] RoadDublin [place] [id number] WBC (Bld) [#/Vol] 5.0 {x10E3/uL} Normal 3.4-10.8 [facility] Internal Medicine Work Phone: Comment on above: PATIENT WAS FASTINGP ERFORMED BY: [facility] Yklcus1888 [address] RoadDublin [place] [id number] WBC (Bld) [#/Vol] 5.0 10*3/uL Normal 3.4-10.8 [facility] Internal Medicine Work Phone: Comment on above: PATIENT WAS FASTINGP ERFORMED BY: [facility] Gnmzuw4701 [address] RoadDublin [place] [id number] LIPID PANEL ([id number])Ordered B y: Net Programmer on 10-31-2019 Cholesterol [Mass/Vol] 257 mg/dL Abnormal 100-199 [facility] Work Phone: Comment on above: PATIENT WAS FASTINGP ERFORMED BY: [facility] Hjhdil5714 [address] RoadDublin [place] [id number] Cholesterol in HDL [Mass/Vol] 50 mg/dL Normal [facility] Work Phone: Comment on above: PATIENT WAS FASTINGP ERFORMED BY: ANGELI LabDajuan WeldonBghkuk[address] [facility]bl[facility] [place] [id number] Cholesterol in LDL [Mass/Vol] 178 mg/dL Abnormal 0-99 [facility] Work Phone: Comment on above: PATIENT WAS FASTINGP ERFORMED BY: ANGELI LabDajuan WeldnoJfwwgd[address] [facility]in [place] [id number] Cholesterol in LDL/Cholesterol in HDL [Mass ratio] 3.6 {ratio} Abnormal 0.0-3.2 [facility] Work Phone: Comment on above: LDL/HDL Ratio Men Wo men 1/2 Avg.Risk 1.0 1.5 Avg.Risk 3.6 3.2 2X Avg.Risk 6.2 5.0 3X Avg.Risk 8.0 6.1 PATIENT WAS FASTINGP ERFORMED BY: ANGELI Weldonlin6370 [facility] [id number] Cholesterol in VLDL [Mass/Vol] 29 mg/dL Normal 5-40 [facility] Work Phone: Comment on above: PATIENT WAS FASTINGP ERFORMED BY: ANGELI Weldonlin6370 [facility]in [place] [id number] Triglyceride [Mass/Vol] 143 mg/dL Normal 0-149 [facility] Work Phone: Comment on above: PATIENT WAS FASTINGP ERFORMED BY: ANGELI LabDajuan Mprtij3433 [facility] Administrationin [place] [id number] Metabolic Panel, Comprehensi ve ([id number])Ordered By: Net Programmer on 10-31-2019 Albumin [Mass/Vol] 4.5 g/dL Normal 3.5-4.8 Compre [facility] Internal Medicine Work Phone: Comment on above: PATIENT WAS FASTINGP ERFORMED BY: ANGELI Weldonlin6370 [facility] Hospitalbl[facility] [place] [id number] Albumin/Globulin [Mass ratio] 1.6 {ratio} Normal 1.2-2.2 [facility] Work Phone: Comment on above: PATIENT WAS FASTINGP ERFORMED BY: ANGELI [facility] Kgjyca3567 [address] RoadDublin [place] [id number] ALP [Catalytic activity/Vol] 83 [iU]/L Normal 39-117 [facility] Work Phone: Comment on above: PATIENT WAS FASTINGP ERFORMED BY: ANGELI [facility] Jqjsiu5093 [address] RoadDublin [place] [id number] ALP [Catalytic activity/Vol] 83 U/L Normal 39-117 [facility] Work Phone: Comment on above: PATIENT WAS FASTINGP ERFORMED BY: ANGELI [facility] Dbphob0442 [address] RoadDublin [place] [id number] ALT [Catalytic activity/Vol] 32 [iU]/L Normal 0-32 [facility] Work Phone: Comment on above: PATIENT WAS FASTINGP ERFORMED BY: ANGELI [facility] Yyaejj7987 [address] RoadDublin [place] [id number] ALT [Catalytic activity/Vol] 32 U/L Normal 0-32 [facility] Work Phone: Comment on above: PATIENT WAS FASTINGP ERFORMED BY: ANGELI [facility] Curfxz4023 [address] RoadDublin [place] [id number] AST [Catalytic activity/Vol] 33 [iU]/L Normal 0-40 [facility] Work Phone: Comment on above: PATIENT WAS FASTINGP ERFORMED BY: ANGELI [facility] Vhxgxe7558 [address] RoadDublin [place] [id number] AST [Catalytic activity/Vol] 33 U/L Normal 0-40 [facility] Work Phone: Comment on above: PATIENT WAS FASTINGP ERFORMED BY: ANGELI [facility] Xkmmka1603 [address] RoadDublin [place] [id number] Bilirubin [Mass/Vol] 0.2 mg/dL Normal 0.0-1.2 [facility] Internal Medicine Work Phone: Comment on above: PATIENT WAS FASTINGP ERFORMED BY: ANGELI [facility] Jynduz4747 [address] RoadDublin [place] [id number] Calcium [Mass/Vol] 10.0 mg/dL Normal 8.7-10.3 [facility] Internal Medicine Work Phone: Comment on above: PATIENT WAS FASTINGP ERFORMED BY: ANGELI LabComauri Qqvsnq4527 [address] RoadDublin [place] [id number] Chloride [Moles/Vol] 105 mmol/L Normal 96-106 Comp rehensive Internal Medicine Work Phone: Comment on above: PATIENT WAS FASTINGP ERFORMED BY: ANGELI [facility] Nlshih[address] [facility]in [place] [id number] CO2 [Moles/Vol] 18 mmol/L Abnormal 20-29 Comprehen [facility] Internal Medicine Work Phone: Comment on above: PATIENT WAS FASTINGP ERFORMED BY: ANGELI [facility] Hrvkaz8114 Mcg[address] RoadAt[facility] [id number] Creatinine [Mass/Vol] 0.73 mg/dL Normal 0.57-1.00 [facility] Work Phone: Comment on above: PATIENT WAS FASTINGP ERFORMED BY: ANGELI [facility] Siyxah0447 [address] RoadNovant Health Ballantyne Medical Centerin [place] [id number] GFR/1.73 sq M predicted among blacks CKD-EPI (S/P/Bld) [Vol rate/Area] 94 mL/min/1.73 Normal [facility] Work Phone: Comment on above: PATIENT WAS FASTINGP ERFORMED BY: ANGELI [facility] Hzhohw7452 [address] RoadNovant Health Ballantyne Medical Centerin [place] [id number] GFR/1.73 sq M predicted among non-blacks CKD-EPI (S/P/Bld) [Vol rate/Area] 81 mL/min/1.73 Normal [facility] Work Phone: Comment on above: PATIENT WAS FASTINGP ERFORMED BY: ANGELI [facility] Smhhll5088 [address] RoadNovant Health Ballantyne Medical Centerin [place] [id number] Globulin (S) [Mass/Vol] 2.9 g/dL Normal 1.5-4.5 C [facility] Medicine Work Phone: Comment on above: PATIENT WAS FASTINGP ERFORMED BY: ANGELI [facility] Degoqa1383 [address] RoadDublin [place] [id number] Glucose [Mass/Vol] 139 mg/dL Abnormal 65-99 [facility] Internal Medicine Work Phone: Comment on above: PATIENT WAS FASTINGP ERFORMED BY: CB [facility] Opnzks2962 [address] RoadDublin [place] [id number] Potassium [Moles/Vol] 4.5 mmol/L Normal 3.5-5.2 [facility] Internal Medicine Work Phone: Comment on above: PATIENT WAS FASTINGP ERFORMED BY: ANGELI [facility] Fqsmbd7073 [address] RoadDublin [place] [id number] Protein [Mass/Vol] 7.4 g/dL Normal 6.0-8.5 [facility] Internal [facility] Work Phone: Comment on above: PATIENT WAS FASTINGP ERFORMED BY: ANGELI [facility] Eeabeq6590 [address] RoadDublin [place] [id number] Sodium [Moles/Vol] 142 mmol/L Normal 134-144 [facility] Internal Medicine Work Phone: Comment on above: PATIENT WAS FASTINGP ERFORMED BY: ANGELI [facility] Bdgfzk0115 [address] Roadblin [place] [id number] Urea nitrogen [Mass/Vol] 15 mg/dL Normal 8-27 [facility] Internal Medicine Work Phone: Comment on above: PATIENT WAS FASTINGP ERFORMED BY: ANGELI [facility] Gbuafy6195 [address] RoadNovant Health Ballantyne Medical Centerin [place] [id number] Urea nitrogen/Creatinine [Mass ratio] 21 mg/mg Normal 12-28 [facility] Internal Medicine Work Phone: Comment on above: PATIENT WAS FASTINGP ERFORMED BY: CB [facility] Tzmmnj3850 [address] RoadDublin [place] [id number] TSH ([id number])Ordered By: Eb Arauz on 10-31-2019 TSH Qn 3.020 {uIU/mL} Normal 0.450-4.50 0 [facility] Work Phone: Comment on above: PATIENT WAS FASTINGP ERFORMED BY: ANGELI [facility] Tgnaaz8864 [address] RoadDublin [place] [id number] Blood Glucose , Office ([phone] 2)Ordered By: Haseeb Sherwood on 08-28-2019 Glucose Glucometer (BldC) [Moles/Vol] 92 1 Normal [facility] Work Phone: HgA1C , Office (33662)Ordere d By: Haseeb Sherwood on 08-28-2019 HbA1c (Bld) [Mass fraction] 6.4 % Normal 4.6 - 7.1 [facility] Work Phone: TSH (THYROID STIMULATING HOR BARRON) ([id number])Ordered By: Net Programmer on 03-13-2019 Thyrotropin Qn 4.570 {uIU/mL} Abnormal 0.450-4.50 0 [facility] Work Phone: Comment on above: PATIENT NOT FASTINGP ERFORMED BY: ANGELI [facility] Bdiftg8369 [facility] [id number] CBC-Complete Blood Cnt No Di ffOrdered By: Net Programmer on 03-07-2019 Erythrocyte distribution width Ratio (RBC) 13.5 % Normal 11.6-14.6 [facility] Work Phone: Comment on above: [facility] [address] [place], [place], [id number] Hematocrit Volume Fraction (Bld) 38.4 % Normal 37-47 [facility] Work Phone: Comment on above: [facility] [address] [place], [place], [id number] Hemoglobin mass conc (Bld) 12.8 g/dL Normal 12.0-15.0 [facility] Work Phone: Comment on above: [facility] [address] [place], [place], [id number] MCH Entitic mass (RBC) 29.2 pg Normal 27.0-32.0 Co mprehensive Internal Medicine Work Phone: Comment on above: [facility] [address] [place], [place], [phone] MCHC mass conc (RBC) 33.3 {g/gl} Normal 32-36 Com prehensive Internal Medicine Work Phone: Comment on above: [facility] [address] [place], [address] MCV Entitic volume (RBC) 87.7 fL Normal 81-99 [facility] Work Phone: Comment on above: [facility] [address] [place], [address] Platelet mean volume Entitic volume (Bld) 11.3 fL Normal 6.2-12.0 Comprehensi ve Internal Medicine Work Phone: Comment on above: [facility] [address] [place], [address] Platelets #/vol (Bld) 111 10*3/uL Abnormal 150-450 Co [facility] Work Phone: Comment on above: [facility] [address] [place], [address] RBC #/vol (Bld) 4.38 {M/mm3} Normal 4.2-5.4 Compreh ensive Internal Medicine Work Phone: Comment on above: [facility] [address] [place], [address] WBC #/vol (Bld) 5.5 10*3/uL Normal 4.4-11.0 Comprehe nsive Internal Medicine Work Phone: Comment on above: [facility] [address] [place], [address] CBC-Complete Blood Cnt No Diff 43.3 fL Normal 35.1-43.9 [facility] Work Phone: Comment on above: [facility] [address] [place], [address] Hemoglobin N3iIzusory By: stem Steam Fitter on 03-07-2019 Hemoglobin A1c/Hemoglobin.total mass fraction (Bld) 8.1 % Abnormal 4.2-6.3 Comprehensiv e Internal Medicine Work Phone: Comment on above: [facility] [address] [place], [place], [phone] Partial Thromboplast TimeOrd ered By: Net Programmer on 03-07-2019 aPTT Coag time (PPP) 29.2 s Normal 24.1-36.2 [facility] Work Phone: Comment on above: [facility] [address] [place], [address] Prothrombin Time w/INROrdere d By: Net Programmer on 03-07-2019 INR Coag RelTime (PPP) 1.0 {INR} Normal Co [facility] Internal Medicine Work Phone: Comment on above: [facility] [address] [place], [address] Prothrombin time (PT) Coag time (PPP) 13.4 s Normal 11.7-14.9 [facility] Work Phone: Comment on above: [facility] [address] [place], [address] Thyroid Stim Hormone (TSH)Or dered By: Net Programmer on 03-07-2019 Thyrotropin Qn 3.09 {uIU/mL} Normal 0.358-3.74 Compreh ensive Internal Medicine Work Phone: Comment on above: [facility] [address] [place], [address] Type AND ScreenOrdered By: Jarrod kilgoretem Steam Fitter on 03-07-2019 ABO and Rh group Nom (Bld) O POSITIVE Normal [facility] Work Phone: Comment on above: Surgery Date: Date of Last Transfusion (if within last 3 months) NHx of Preganancy in last 3 Months NoEver experience any problems with transfusion(s)? NHx of Transfusion in last 3 Months NReason for Type AND Screen/Red Cells: SURGERYTime: 0800SURGICAL PROCEDURE: HS D AND [facility] [address] [place], [address] HgA1C , Office ([id number])Ordere d By: Federica Olivarez on 01-19-2019 Hemoglobin A1c/Hemoglobin.total mass fraction (Bld) 7.2 % Abnormal 4.6 - 7.1 Comprehensiv e Internal Medicine Work Phone: Comment on above: 7.2 TSH (THYROID STIMULATING HOR BARRON) ([id number])Ordered By: Net Programmer on 01-13-2019 Thyrotropin Qn 4.590 {uIU/mL} Abnormal 0.450-4.50 0 [facility] Work Phone: Comment on above: get done week of Nov 21; PATIENT NOT FASTINGPERFORMED BY: [facility] Ulnbmz1803 [facility] [id number] Bedside GlucoseOrdered By: Jarrod ystem Steam Fitter on 12-05-2018 Bedside Glucose 129 mg/dL Abnormal 70-110 Comprehen sive Internal Medicine Work Phone: Comment on above: MANAGEMENT OF PATIEN T CARE PER NURSING PROTOCOL [facility] LaboratoryPoint of [address] [facility] [place] [address] Bedside Glucose 117 mg/dL Abnormal 70-110 [facility] Internal Medicine Work Phone: Comment on above: MANAGEMENT OF PATIEN T CARE PER NURSING PROTOCOL [facility] LaboratoryPoint of S[address] [facility] [place] [address] IMMUNOHISTOCHEMISTRYOrdered By: Net Programmer on 12-05-2018 IMMUNOHISTOCHEMISTRY See Note Normal Comp rehensive Internal Medicine Work Phone: Comment on above: Patient: KARISHMA VILLALOBOS : 1945 (73/F) Acct Num: [id number] Phys: Rob CLEMONS,Zee Unit Num: [id number] Loc: [facility] Specimen: [id number] Received: 12/07/18 - 1003 Spec Type: IMMUNO THIS IS A CORRECTED REPORT TISSUES 1 TISSUES: A. Axillary lymph node, NOS B. Axillary lymph node, NOS SPECIMEN INFORMATION: Tissue Source: A - Right axillary lymph nodes, lymphadenectomy, B - Lymph node tissue Clinical Info: Right breast cancer Specimen Number: [id number] A1-5, B CPT code: 59715 x2, 96814 x5 METHODOLOGY: Deparaffinized sections of prefer/formalin-fixed tissue [...] developed and their performance characteristics determined by [facility]. They may not have been cleared [...] for carcinoma. AM:mohit 12/08/18 PHYSICIAN AND INSTITUTION [place] [address] Signed David Hussein, DO 12/08/18 Patient: KARISHMA VILLALOBOS : 1945 (73/F) Acct Num: [id number] Phys: Rob CLEMONSZee Unit Num: [id number] Loc: [facility] Specimen: [id number] Received: 12/05/18 - 1259 Spec Type: AX NODE BX THIS IS A CORRECTED REPORT TISSUES 1 TISSUES: A. Axillary lymph node, NOS B. Axillary lymph node, NOS COMMENT Immunohistochemistry ([id number]) supports the above diagnosis. The lymph nodes show fatty replacement. Clinical correlation is suggested. Please make reference to case [id number] in which right partial breast contained two [...] one cassette. / SJ:mohit 12/07/18 TC:5 CPT: 72048, 49434, 17283 x4 HEADER OPERATION: Biopsy, axillary node, Neoprobe [...] AM:mohit 12/08/18 Signed David Hussein DO 12/08/18 [facility] [address] [place], [place], [address] Patient: KARISHMA VILLALOBOS : 1945 (73/F) Acct Num: [id number] Phys: Zee Rivas MD Unit Num: [id number] Loc: [facility] Specimen: [id number] Received: 12/05/18 - 125 Spec Type: AX NODE BX THIS IS A CORRECTED REPORT TISSUES 1 TISSUES: A. Axillary lymph node, NOS B. Axillary lymph node, NOS COMMENT Immunohistochemistry ([id number]) supports the above diagnosis. The lymph nodes show fatty replacement. Clinical correlation is suggested. Please make reference to case [id number] in which right partial breast contained two [...] one cassette. / SJ:mohit 12/07/18 TC:5 CPT: 02411, 19197, 38376 x4, 46719 HEADER OPERATION: Biopsy, axillary node, Neoprobe PRE-OP [...] Hussein DO 12/08/18 AXILLARY NODE BIOPSYOrdered By: Net Programmer on 10-10-2018 AXILLARY NODE BIOPSY See Note Normal Comp rehensive Internal Medicine Work Phone: Comment on above: Patient: KARISHMA VILLALOBOS : 1945 (73/F) Acct Num: [id number] Phys: Zee Rivas MD Unit Num: [id number] Loc: [facility] Specimen: [id number] Received: 10/10/181336 Spec Type: AX NODE BX TISSUES 1 TISSUES: A. Axillary lymph node, NOS B. Left breast, NOS C. Left breast, NOS COMMENT A. The lymph nodes are negative for metastatic carcinoma on multiple H AND E levels and immunohistochemical stains for cytokeratins ([id number]). The smallest lymph node is completed exhausted during frozen section diagnosis (block #2). C. Immunohistochemistry ([id number]) supports the above diagnosis. This portion of [...] adipose cut surface mixed with fibrous area. Deaf/Hard Of Hearing Specialist sections are submitted in 10 cassettes as follows: 1 - skin adjacent anterior margin and perpendicular posterior margin, 2 - perpendicular medial, lateral and superior margins, 3-6 - biopsy cavity with surrounding indurated tissue, entirely submitted and including adjacent perpendicular inferior margin, 7 - brewery representative section adjacent to the biopsy cavity, 810 - brewery representative sections away from the cavity. Sections [...] tissue. No obvious mass lesion is identified. Deaf/Hard Of Hearing Specialist sections are submitted in 12 cassettes as follows:1-5 - biopsy cavity with surrounding tissue, 6-12 - second biopsy cavity with surrounding tissue. Sections will be submitted after additional fixation. Ezekiel 10/11/18 TC: 0 CPT: 23088 x3, 15361, 60889w7, 88406u9 HEADER OPERATION: Right and left breast lumpectomy [...] ductal carcinoma (no special type) Histologic grade: [place] grade: histologic score Glandular/tubular differentiation - score [...] biopsy site. Ancillary studies: (previously performed at [facility], [id number]) ER - positive (95%, strong) CO - positive (95%, moderate) Tyj7wah - negative (0) Microcalcifications - present in nonneoplastic tissue, medial calcification blood vessel wall Clinical history - Please make reference to previous specimen from [facility] [id number] left breast, needle core biopsy diagnosis of [...] atypia. Complex atypical papillary lesion. Ancillary studies: ([id number]) ER - positive (<95%, strong) CO - positive (<95%, strong) Nyd5abi - negative (0) Microcalcifications - present Clinical history - Please make reference to previous specimen ([id number]) right breast, needle localization biopsy from [facility] diagnosis of fragments of atypical papillary lesion and atypical lobular hyperplasia. PATHOLOGIC STAGE: pT1c(n) pNX MX The above summary is in compliance with College of [employer] Path[employer] (CAP) Cancer Protocols Checklist and [place] Joint Committee on Cancer (AJCC), Staging Manual, 8th Ed. Signed Cong Chirinos 10/21/18 [facility] spital [address] [place], [address] Bedside GlucoseOrdered By: Jarrod ystem Steam Fitter on 10-10-2018 Bedside Glucose 132 mg/dL Abnormal 70-110 [facility] Internal Medicine Work Phone: Comment on above: MANAGEMENT OF PATIEN T CARE PER NURSING PROTOCOL [facility] spital LaboratoryPoint of [address] [place] [address] Bedside Glucose 125 mg/dL Abnormal 70-110 [facility] Internal Medicine Work Phone: Comment on above: MANAGEMENT OF PATIEN T CARE PER NURSING PROTOCOL [facility] spital LaboratoryPoint of [address] [place] [address] IMMUNOHISTOCHEMISTRYOrdered By: Net Programmer on 10-10-2018 IMMUNOHISTOCHEMISTRY See Note Normal Comp rehensive Internal Medicine Work Phone: Comment on above: Patient: KARISHMA VILLALOBOS : 1945 (73/F) Acct Num: [id number] Phys: Zee Rivas MD Unit Num: [id number] Loc: [facility] Specimen: [id number] Received: 10/13/181217 Spec Type: IMMUNO TISSUES 1 TISSUES: A. Axillary lymph node, NOS C. Right breast, NOS SPECIMEN INFORMATION: Tissue Source: A. Left axillary sentinel lymph node, C. Right breast mass Clinical Info: Newly diagnosed left breast cancer, atypical lesion Specimen Number: [id number] A1, A2, A3, C3, C9, C11 CPT code: 01052 x2, 07957 x19, 35309 x3 METHODOLOGY: Deparaffinized sections of prefer/formalin-fixed tissue [...] negative Block C3 P40 (BC28) negative Calponin-1 (PO873W) negative E-Cad (ECH-6) positive CK8 (00nteyV83) positive CK5-6 (D5 AND 1684) negative Ki-67 (30-9) positive, low P53 (DO-7) negative MORPHOMETRIC ANALYSIS ER (clone 6F11) >95%, strong CO (clone 16/1E2) >95% strong Her-2Neu (clone CB11) 0 Block C9 P40 (BC28) negative Calponin-1 (HV526W) negative E-Cad (ECH-6) positive CK8 (87aopqF31) positive Block C11 P40 (BC28) negative Calponin-1 (ZM206F) negative E-Cad (ECH-6) positive CK8 (52rwtaB41) positive The prognostic test for HER2 is performed on formalin-fixed paraffin embedded tissue. A 3+ (positive) staining pattern is defined as intense, homogeneous, complete, circumferential membranous staining in >10% of contiguous tumor cells. A similar weak (2+) staining pattern is interpreted as equivocal. STEPHEN follow-up testing is recommended for all equivocal cases. Positivity/negativity for ER/CO is reported if > or < 1% of the tumor cells are immuno- reactive, respectively. The ASCO/CAP criteria is used for scoring. Reference: Journal of Clinical Oncology, 2013; 31:4619-5308 AND 2009; 16:9569-4262. Duration of fixation: __ Hrs; Sample Adequate: Yes. These assays have not been validated on decalcified tissues. Results should beinterpreted with caution given the likelihood of false negativity on decalcifiedspecimens. These tests were developed and their performance characteristics determined by [facility]. They may not have been cleared [...] (favorable prognostic indicator). Negative for overexpression of RKM1zfx. SJ:mohit 10/21/18 PHYSICIAN AND INSTITUTION [address] [address] Signed Cong Chirinos 10/21/18 [facility] [address] [place], [place], [id number] HgA1C , Office (59783)Ordere d By: Myra Fowler on 10-05-2018 Hemoglobin A1c/Hemoglobin.total mass fraction (Bld) 7.3 % Abnormal 4.6 - 7.1 Comprehensiv e Internal Medicine Work Phone: [id number]-TIEKVCUAVQA-FSNLV ([phone])Ordered By: Net Programmer on 09-30-2018 AFP.tumor marker mass conc 4.1 ng/mL Normal 0.0-8.3 [facility] Work Phone: Comment on above: Nora ECLIA methodol ogy Aug 2018; PATIENT WA S FASTINGPERFORMED BY: Delivered6370 [address] RoadDublin [place] [id number] CALCIFEDIOL (81935)Ordered B y: Net Programmer on 09-30-2018 25-Hydroxyvitamin D2+25-Hydroxyvitamin D3 mass conc 46.1 ng/mL Normal 30.0-100.0 [facility] Work Phone: Comment on above: Vitamin D deficiency has been defined by the [place] [facility] and an Endocrine Society practice guideline as alevel of serum 25-OH vitamin D less than 20 ng/mL (1,2).The Endocrine Society went on to further define vitamin Dinsufficiency as a level between 21 and 29 ng/mL (2).1. IOM ([place] of Medicine). 2010. Dietary reference intakes for calcium and D. [place]: The National Academies Press.2. Ace MF, [place], Cynthia COFFMAN, et al. Evaluation, treatment, and prevention of vitamin D deficiency: an Endocrine Society clinical practice guideline. JCEM. 2010; 96(7):1911-30. August 2018; EMILEE Gilbert WAS FASTINGPERFORMED BY: [place] [employer] Ddillk[address] RoadAylablin [place] [id number] Metabolic Panel, Comprehensi ve (27902)Ordered By: Net Programmer on 09-30-2018 Albumin mass conc 4.5 g/dL Normal 3.5-4.8 Compreh ensive Internal Medicine Work Phone: Comment on above: August 2018; EMILEE Gilbert WAS FASTINGPERFORMED BY: Delivered6[address]Dublin [place] [id number] Albumin/Globulin mass ratio 1.5 {ratio} Normal 1.2-2.2 [facility] Work Phone: Comment on above: August 2018; EMILEE Gilbert WAS FASTINGPERFORMED BY: [employer]70 [address] RoadDublin [place] [id number] ALP [Catalytic activity/Vol] 83 U/L Normal 39-117 [facility] Internal Medicine Work Phone: Comment on above: August 2018; EMILEE T WAS FASTINGPERFORMED BY: CB [facility] Ufprgs[address] RoadDublin [place] [id number] ALP enzyme act/vol 83 [iU]/L Normal 39-117 [facility] Internal Medicine Work Phone: Comment on above: August 2018; PATIJERAMIE T WAS FASTINGPERFORMED BY: CB [facility] Fvavxe55[address] RoadDublin [place] [id number] ALT [Catalytic activity/Vol] 54 U/L Abnormal 0-32 [facility] Internal Medicine Work Phone: Comment on above: August 2018; PATIJERAMIE T WAS FASTINGPERFORMED BY: [facility] Oajqoa8[address] RoadDublin [place] [id number] ALT enzyme act/vol 54 [iU]/L Abnormal 0-32 [facility] Internal Medicine Work Phone: Comment on above: August 2018; PATIJERAMIE T WAS FASTINGPERFORMED BY: [facility] Jeviua2[address] RoadDublin [place] [id number] AST [Catalytic activity/Vol] 50 U/L Abnormal 0-40 [facility] Internal Medicine Work Phone: Comment on above: August 2018; EMILEE T WAS FASTINGPERFORMED BY: [facility] Nipxeu28[address] RoadDublin [place] [id number] AST enzyme act/vol 50 [iU]/L Abnormal 0-40 [facility] Internal Medicine Work Phone: Comment on above: August 2018; PATIJERAMIE T WAS FASTINGPERFORMED BY: [facility] Prsgwm7[address] RoadDublin [place] [id number] Bilirubin mass conc 0.4 mg/dL Normal 0.0-1.2 [facility] Internal Medicine Work Phone: Comment on above: August 2018; EMILEE T WAS FASTINGPERFORMED BY: CB [facility] Imwmrf9941 [address] RoadDublin [place] [id number] Calcium mass conc 9.9 mg/dL Normal 8.7-10.3 Compreh ensive Internal Medicine Work Phone: Comment on above: August 2018; EMILEE Gilbert WAS FASTINGPERFORMED BY: CB [facility] Vejymq3932 [address] RoadNovant Health Ballantyne Medical Centerin [place] [id number] Chloride molar conc 105 mmol/L Normal 96-106 Compr ehensive Internal Medicine Work Phone: Comment on above: August 2018; EMILEE Gilbert WAS FASTINGPERFORMED BY: CB [facility] [address] [facility] [id number] CO2 molar conc 21 mmol/L Normal 20-29 Comprehens michael Internal Medicine Work Phone: Comment on above: August 2018; EMILEE Gilbert WAS FASTINGPERFORMED BY: CB [facility] Xstwnb7871 Mc[address] RoadAt[facility] [id number] Creatinine mass conc 0.67 mg/dL Normal 0.57-1.00 Comp rehensive Internal Medicine Work Phone: Comment on above: August 2018; EMILEE Gilbert WAS FASTINGPERFORMED BY: CB [facility] Ptcjms0326 Mcghee RoadAtrium Health [facility] [id number] GFR/1.73 sq M predicted among blacks CKD-EPI vol rate/area (S/P/Bld) 101 mL/min/1.73 Normal Comprehe nsive Internal Medicine Work Phone: Comment on above: August 2018; EMILEE Gilbert WAS FASTINGPERFORMED BY: CB [facility] Kzozgb2399 [address] RoadNovant Health Ballantyne Medical Centerin [place] [id number] GFR/1.73 sq M predicted among non-blacks CKD-EPI vol rate/area (S/P/Bld) 87 mL/min/1.73 Normal [facility] Work Phone: Comment on above: August 2018; EMILEE Gilbert WAS FASTINGPERFORMED BY: CB [facility] [address]ewd[address] [facility] [id number] Globulin Calculated mass conc (S) 3.1 g/dL Normal 1.5-4.5 [facility] Work Phone: Globulin mass conc (S) 3.1 g/dL Normal 1.5-4.5 Co mprehensive Internal Medicine Work Phone: Comment on above: August 2018; EMILEE Gilbert WAS FASTINGPERFORMED BY: CB [facility] Revfcs5836 [address] RoadDublin [place] [id number] Glucose mass conc 150 mg/dL Abnormal 65-99 Compreh ensive Internal Medicine Work Phone: Comment on above: August 2018; EMILEE Gilbert WAS FASTINGPERFORMED BY: CB [facility] Wrnqxp6160 [address] RoadDuin [place] [id number] Potassium molar conc 4.8 mmol/L Normal 3.5-5.2 Comp rehensive Internal Medicine Work Phone: Comment on above: August 2018; EMILEE Gilbert WAS FASTINGPERFORMED BY: CB [facility] Vzgwyz1033 [address] RoadDuin [place] [id number] Protein mass conc 7.6 g/dL Normal 6.0-8.5 Compreh ensive Internal Medicine Work Phone: Comment on above: August 2018; EMILEE Gilbert WAS FASTINGPERFORMED BY: CB [facility] Udmktt[address] [facility] [place] [id number] Sodium molar conc 142 mmol/L Normal 134-144 Compreh ensive Internal Medicine Work Phone: Comment on above: August 2018; EMILEE Gilbert WAS FASTINGPERFORMED BY: CB [facility] F[address]udi[address] [facility] [place] [id number] Urea nitrogen mass conc 13 mg/dL Normal 8-27 C omprehensive Internal Medicine Work Phone: Comment on above: August 2018; EMILEE Gilbert WAS FASTINGPERFORMED BY: CB [facility] Wtfvbl[address] [facility] [place] [id number] Urea nitrogen/Creatinine mass ratio 19 mg/mg Normal 12-28 [facility] Work Phone: Comment on above: August 2018; EMILEE Gilbert WAS FASTINGPERFORMED BY: CB [facility] Ekzwsr[address] [facility] [place] [id number] TSH (THYROID STIMULATING HOR BARRON) (14680)Ordered By: Net Programmer on 09-30-2018 Thyrotropin Qn 5.560 {uIU/mL} Abnormal 0.450-4.50 0 [facility] Work Phone: Comment on above: August 2018; EMILEE Gilbert WAS FASTINGPERFORMED BY: ANGELI Pet Readymauri Drxnkm3562 [facility] [id number] Blood Glucose , Office (2496 2)Ordered By: Haseeb Sherwood on 06-14-2018 Glucose Glucometer molar conc (BldC) 115 1 Normal [facility] Work Phone: CALCIFEDIOL (05146)Ordered B y: Net Programmer on 06-14-2018 25-Hydroxyvitamin D2+25-Hydroxyvitamin D3 mass conc 33.0 ng/mL Normal 30.0-100.0 [facility] Work Phone: Comment on above: Vitamin D deficiency has been defined by the [place] of[place]icine and an Endocrine Society practice guideline as alevel of serum 25-OH vitamin D less than 20 ng/mL (1,2).The Endocrine Society went on to further define vitamin Dinsufficiency as a level between 21 and 29 ng/mL (2).1. IOM ([place] of Medicine). 2010. Dietary reference intakes for calcium and D. [place]: The National Academies Press.2. Ace MF, [place], Cynthia COFFMAN, et al. Evaluation, treatment, and prevention of vitamin D deficiency: an Endocrine Society clinical practice guideline. JCEM. 2010; 96(7):1911-30. PATIENT NOT FASTINGP ERFORMED BY: ANGELI TaxiMe6370 [facility] [id number] HgA1C , Office (50581)Ordere d By: Haseeb Sherwood on 06-14-2018 Hemoglobin A1c/Hemoglobin.total mass fraction (Bld) 6.9 % Normal 4.6 - 7.1 Comprehensiv e Internal Medicine Work Phone: Metabolic Panel, Comprehensi ve (34287)Ordered By: Net Programmer on 06-14-2018 Albumin mass conc 4.6 g/dL Normal 3.5-4.8 Compreh ensive Internal Medicine Work Phone: Comment on above: PATIENT NOT FASTINGP ERFORMED BY: ANGELI [facility] Qjkinx[address] [facility]in [place] [id number] Information: [id number] Albumin/Globulin mass ratio 1.5 {ratio} Normal 1.2-2.2 [facility] Work Phone: Comment on above: PATIENT NOT FASTINGP ERFORMED BY: [facility] [address] [facility] [id number] Information: [id number] ALP [Catalytic activity/Vol] 93 U/L Normal 39-117 [facility] Work Phone: Comment on above: PATIENT NOT FASTINGP ERFORMED BY: LabCoVirtua MarltonFtgpho[address] [facility] [id number] Information: [id number] ALP enzyme act/vol 93 [iU]/L Normal 39-117 [facility] Internal Medicine Work Phone: Comment on above: PATIENT NOT FASTINGP ERFORMED BY: [facility] Ju[address]ug[address] [facility] [id number] Information: [id number] ALT [Catalytic activity/Vol] 73 U/L Abnormal 0-32 [facility] Work Phone: Comment on above: PATIENT NOT FASTINGP ERFORMED BY: [facility] [address] [facility] [id number] Information: [id number] ALT enzyme act/vol 73 [iU]/L Abnormal 0-32 [facility] Internal Medicine Work Phone: Comment on above: PATIENT NOT FASTINGP ERFORMED BY: CB [facility] Fnuymq[address] [facility]in [place] [id number] Information: [id number] AST [Catalytic activity/Vol] 78 U/L Abnormal 0-40 [facility] Work Phone: Comment on above: PATIENT NOT FASTINGP ERFORMED BY: [facility] Cihehb2451 [facility] [place] [id number] Information: [id number] AST enzyme act/vol 78 [iU]/L Abnormal 0-40 Compre [facility] Work Phone: Comment on above: PATIENT NOT FASTINGP ERFORMED BY: ANGELI LabComauri CoelloLtlwys4629 [address] [facility] [id number] Information: [id number] Bilirubin mass conc 0.5 mg/dL Normal 0.0-1.2 Compr ensive Internal Medicine Work Phone: Comment on above: PATIENT NOT FASTINGP ERFORMED BY: ANGELI [facility] Itkbkp8323 [facility] [id number] Information: [id number] Calcium mass conc 10.3 mg/dL Normal 8.7-10.3 Compreh [facility] Work Phone: Comment on above: PATIENT NOT FASTINGP ERFORMED BY: ANGELI [facility] Spshul2122 [facility] [id number] Information: [id number] Chloride molar conc 103 mmol/L Normal 96-106 Compr ensive Internal Medicine Work Phone: Comment on above: PATIENT NOT FASTINGP ERFORMED BY: ANGELI [facility] Kvzxfx6123 [facility] [id number] Information: [id number] CO2 molar conc 24 mmol/L Normal 20-29 Comprehens michael Internal Medicine Work Phone: Comment on above: PATIENT NOT FASTINGP ERFORMED BY: CB [facility] Dpgbuk1846 [facility] [id number] Information: [id number] Creatinine mass conc 0.78 mg/dL Normal 0.57-1.00 Comp [facility] Work Phone: Comment on above: PATIENT NOT FASTINGP ERFORMED BY: ANGELI [facility] Lrqjgx7343 [facility] [id number] Information: [id number] GFR/1.73 sq M predicted among blacks CKD-EPI vol rate/area (S/P/Bld) 88 mL/min/1.73 Normal Comprehe nsive Internal Medicine Work Phone: Comment on above: PATIENT NOT FASTINGP ERFORMED BY: ANGELI [facility] Qkpztb6626 [address] [facility] [id number] Information: [id number] GFR/1.73 sq M predicted among non-blacks CKD-EPI vol rate/area (S/P/Bld) 76 mL/min/1.73 Normal [facility] Work Phone: Comment on above: PATIENT NOT FASTINGP ERFORMED BY: [facility] Ylwocl1586 [facility] [id number] Information: [id number] Globulin Calculated mass conc (S) 3.1 g/dL Normal 1.5-4.5 [facility] Work Phone: Globulin mass conc (S) 3.1 g/dL Normal 1.5-4.5 Co mprehensive Internal Medicine Work Phone: Comment on above: PATIENT NOT FASTINGP ERFORMED BY: [facility] Bwspyk3616 [facility] [id number] Information: [id number] Glucose mass conc 113 mg/dL Abnormal 65-99 Compreh ensive Internal Medicine Work Phone: Comment on above: PATIENT NOT FASTINGP ERFORMED BY: [facility] Qfgdmw9839 [facility] [id number] Information: [id number] Potassium molar conc 5.0 mmol/L Normal 3.5-5.2 Comp rehensive Internal Medicine Work Phone: Comment on above: PATIENT NOT FASTINGP ERFORMED BY: CB [facility] Ytcqzk9359 [facility] [place] [id number] Information: [id number] Protein mass conc 7.7 g/dL Normal 6.0-8.5 Compreh ensive Internal Medicine Work Phone: Comment on above: PATIENT NOT FASTINGP ERFORMED BY: CB [facility] Kdfbcb1613 [address] [facility] [id number] Information: [id number] Sodium molar conc 142 mmol/L Normal 134-144 Compreh ensive Internal Medicine Work Phone: Comment on above: PATIENT NOT FASTINGP ERFORMED BY: ANGELI Coello6370 [facility] [id number] Information: [id number] Urea nitrogen mass conc 13 mg/dL Normal 8-27 C omprehensive Internal Medicine Work Phone: Comment on above: PATIENT NOT FASTINGP ERFORMED BY: ANGELI [facility] Elwzso0325 [facility] [id number] Information: [id number] Urea nitrogen/Creatinine mass ratio 17 mg/mg Normal 12-28 [facility] Work Phone: Comment on above: PATIENT NOT FASTINGP ERFORMED BY: NereydaS[facility] Guhiry[address] [id number] Information: [id number] T3, FREE (TRIDOTHYRONINE) (3 0875)Ordered By: Net Programmer on 06-14-2018 T3 free mass conc 3.1 pg/mL Normal 2.0-4.4 Compreh ensive Internal Medicine Work Phone: Comment on above: PATIENT NOT FASTINGP ERFORMED BY: ANGELI [facility] Bwufrm0754 [facility] [id number] T4, FREE (THYROXINE) (00723) Ordered By: Net Programmer on 06-14-2018 T4 free mass conc 1.02 ng/dL Normal 0.82-1.77 Compreh ensive Internal Medicine Work Phone: Comment on above: PATIENT NOT FASTINGP ERFORMED BY: LabDonald Ville 2798870 [facility] [id number] TSH (THYROID STIMULATING HOR BARRON) (04545)Ordered By: Net Programmer on 06-14-2018 Thyrotropin Qn 4.540 {uIU/mL} Abnormal 0.450-4.50 0 [facility] Work Phone: Comment on above: PATIENT NOT FASTINGP ERFORMED BY: ANGELI [facility] Kqrfjw6019 [address]Dublin [place] [id number] VITAMIN B12 AND FOLATES (826 07)Ordered By: Net Programmer on 06-14-2018 Cobalamin (Vitamin B12) mass conc 863 pg/mL Normal 232-1245 [facility] Work Phone: Comment on above: PATIENT NOT FASTINGP ERFORMED BY: CB [facility] Bwuhsv2513 [address] RoadDublin [place] [id number] Folate mass conc 17.5 ng/mL Normal Comprehe nsive Internal Medicine Work Phone: Comment on above: A serum folate stephanie ntration of less than 3.1 ng/mL isconsidered to represent clinical deficiency. PATIENT NOT FASTINGP ERFORMED BY: ANGELI [facility] Lhanfm6660 [address] RoadDublin [place] [id number] Blood Glucose , Office (1096 2)Ordered By: Heidy Camacho on 03-15-2018 Glucose Glucometer molar conc (BldC) 214 1 Normal [facility] Work Phone: Comment on above: 214 HgA1C , Office ([id number])Ordere d By: Heidy Camacho on 03-15-2018 Hemoglobin A1c/Hemoglobin.total mass fraction (Bld) 6.9 % Normal 4.6 - 7.1 Comprehensiv e Internal Medicine Work Phone: Comment on above: 6.9 Metabolic Panel, Comprehensi ve (85237)Ordered By: Net Programmer on 03-09-2018 Albumin mass conc 4.6 g/dL Normal 3.5-4.8 Compreh ensive Internal Medicine Work Phone: Comment on above: PATIENT NOT FASTINGP ERFORMED BY: ANGELI [facility] Ezjhcm7385 [address] RoadDublin [place] [id number] Albumin/Globulin mass ratio 1.6 {ratio} Normal 1.2-2.2 [facility] Work Phone: Comment on above: PATIENT NOT FASTINGP ERFORMED BY: ANGELI [facility] Nnsusc8647 [address] RoadDublin [place] [id number] ALP [Catalytic activity/Vol] 80 U/L Normal 39-117 [facility] Work Phone: Comment on above: PATIENT NOT FASTINGP ERFORMED BY: CB [facility] Rulqgo7519 [address] RoadDublin [place] [id number] ALP enzyme act/vol 80 [iU]/L Normal 39-117 [facility] Internal Medicine Work Phone: Comment on above: PATIENT NOT FASTINGP ERFORMED BY: ANGELI [facility] Qudsth8073 [address] RoadDublin [place] [id number] ALT [Catalytic activity/Vol] 55 U/L Abnormal 0-32 [facility] Work Phone: Comment on above: PATIENT NOT FASTINGP ERFORMED BY: CB [facility] Ogylvy9445 [address] RoadDublin [place] [id number] ALT enzyme act/vol 55 [iU]/L Abnormal 0-32 [facility] Internal Medicine Work Phone: Comment on above: PATIENT NOT FASTINGP ERFORMED BY: ANGELI [facility] Pgyqyc9934 [address] RoadDublin [place] [id number] AST [Catalytic activity/Vol] 53 U/L Abnormal 0-40 [facility] Internal Medicine Work Phone: Comment on above: PATIENT NOT FASTINGP ERFORMED BY: ANGELI [facility] Lktfto5482 [address] RoadDublin [place] [id number] AST enzyme act/vol 53 [iU]/L Abnormal 0-40 [facility] Internal Medicine Work Phone: Comment on above: PATIENT NOT FASTINGP ERFORMED BY: CB [facility] Donilj2384 [address] RoadDublin [place] [id number] Bilirubin mass conc 0.4 mg/dL Normal 0.0-1.2 [facility] Internal Medicine Work Phone: Comment on above: PATIENT NOT FASTINGP ERFORMED BY: CB [facility] Vkoweg1927 [address] RoadDublin [place] [id number] Calcium mass conc 10.0 mg/dL Normal 8.7-10.3 [facility] Internal Medicine Work Phone: Comment on above: PATIENT NOT FASTINGP ERFORMED BY: CB [facility] Cdclrv3280 [address] RoadDublin [place] [id number] Chloride molar conc 101 mmol/L Normal 96-106 Compr ehensive Internal Medicine Work Phone: Comment on above: PATIENT NOT FASTINGP ERFORMED BY: ANGELI LabComauri WeldonBhiptu7369 Mc[address] Roadblin [place] [id number] CO2 molar conc 22 mmol/L Normal 18-29 Comprehens michael Internal Medicine Work Phone: Comment on above: PATIENT NOT FASTINGP ERFORMED BY: CB [facility] Zbapfg7478 [address] [facility] [id number] Creatinine mass conc 0.74 mg/dL Normal 0.57-1.00 Comp rehensive Internal Medicine Work Phone: Comment on above: PATIENT NOT FASTINGP ERFORMED BY: ANGELI [facility] Gokohd7609 [address] [facility] [id number] GFR/1.73 sq M predicted among blacks CKD-EPI vol rate/area (S/P/Bld) 94 mL/min/1.73 Normal Comprehe nsive Internal Medicine Work Phone: Comment on above: PATIENT NOT FASTINGP ERFORMED BY: ANGELI [facility] Azpkqq5311 [address] [facility] [id number] GFR/1.73 sq M predicted among non-blacks CKD-EPI vol rate/area (S/P/Bld) 81 mL/min/1.73 Normal [facility] Work Phone: Comment on above: PATIENT NOT FASTINGP ERFORMED BY: ANGELI [facility] Qimrux8653 [facility] [id number] Globulin Calculated mass conc (S) 2.8 g/dL Normal 1.5-4.5 [facility] Work Phone: Globulin mass conc (S) 2.8 g/dL Normal 1.5-4.5 Co [facility]alehens[facility] Work Phone: Comment on above: PATIENT NOT FASTINGP ERFORMED BY: CB [facility] Ebfwym3550 [facility] [id number] Glucose mass conc 138 mg/dL Abnormal 65-99 Compreh ensive Internal Medicine Work Phone: Comment on above: PATIENT NOT FASTINGP ERFORMED BY: ANGELI LabDajuan WeldonYmjgft4597 [address] [place] [id number] Potassium molar conc 4.4 mmol/L Normal 3.5-5.2 Comp rehensive Internal Medicine Work Phone: Comment on above: PATIENT NOT FASTINGP ERFORMED BY: ANGELI Weldonlin6370 [address] [place] [id number] Protein mass conc 7.4 g/dL Normal 6.0-8.5 Compreh ensive Internal Medicine Work Phone: Comment on above: PATIENT NOT FASTINGP ERFORMED BY: ANGELI [facility] Naxuih2323 [address] [facility] [id number] Sodium molar conc 140 mmol/L Normal 134-144 Compreh ensive Internal Medicine Work Phone: Comment on above: PATIENT NOT FASTINGP ERFORMED BY: ANGELI LabDajuan Coello6370 [facility] [id number] Urea nitrogen mass conc 15 mg/dL Normal 8-27 C omprehensive Internal Medicine Work Phone: Comment on above: PATIENT NOT FASTINGP ERFORMED BY: ANGELI LabDajuan Coello6370 [facility] [id number] Urea nitrogen/Creatinine mass ratio 20 mg/mg Normal 12-28 [facility] Work Phone: Comment on above: PATIENT NOT FASTINGP ERFORMED BY: ANGELI [facility] Epaddg6207 [facility] [id number] T3, FREE (TRIDOTHYRONINE) (6 9756)Ordered By: Net Programmer on 03-09-2018 T3 free mass conc 3.1 pg/mL Normal 2.0-4.4 Compreh ensive Internal Medicine Work Phone: Comment on above: PATIENT NOT FASTINGP ERFORMED BY: ANGELI [facility] Gsxigf2663 [facility] [place] [id number] T4, FREE (THYROXINE) (46248) Ordered By: Net Programmer on 03-09-2018 T4 free mass conc 0.99 ng/dL Normal 0.82-1.77 Compreh ensive Internal Medicine Work Phone: Comment on above: PATIENT NOT FASTINGP ERFORMED BY: CB [facility] Mfduqq7553 [address] [facility] [id number] TSH (THYROID STIMULATING HOR BARRON) (70790)Ordered By: Net Programmer on 03-09-2018 Thyrotropin Qn 7.250 {uIU/mL} Abnormal 0.450-4.50 0 [facility] Work Phone: Comment on above: PATIENT NOT FASTINGP ERFORMED BY: CB [facility] Bjjpqc6182 [facility] [id number] Blood Glucose , Office (3384 2)Ordered By: Latrice Levy on 12-06-2017 Glucose Glucometer molar conc (BldC) 142 1 Normal [facility] Work Phone: Comment on above: ate breakfast HgA1C , Office (62939)Ordere d By: Latrice Levy on 12-06-2017 Hemoglobin A1c/Hemoglobin.total mass fraction (Bld) 6.7 % Normal 4.6 - 7.1 Comprehensiv e Internal Medicine Work Phone: CALCIFEDIOL (08340)Ordered B y: Net Programmer on 11-30-2017 25-Hydroxyvitamin D2+25-Hydroxyvitamin D3 mass conc 26.6 ng/mL Abnormal 30.0-100.0 [facility] Work Phone: Comment on above: Vitamin D deficiency has been defined by the [place] ofMedicine and an Endocrine Society practice guideline as alevel of serum 25-OH vitamin D less than 20 ng/mL (1,2).The Endocrine Society went on to further define vitamin Dinsufficiency as a level between 21 and 29 ng/mL (2).1. IOM ([place] of Medicine). 2010. Dietary reference intakes for calcium and D. [place]: The National Academies Press.2. Ace MF, [place], Cynthia COFFMAN, et al. Evaluation, treatment, and prevention of vitamin D deficiency: an Endocrine Society clinical practice guideline. JCEM. 2010; 96(7):1911-30. Oct 2017; PATIENT NO T FASTINGPERFORMED BY: [facility] Grlsuu[address] [facility] [place] [id number] Metabolic Panel, Comprehensi ve (51092)Ordered By: Net Programmer on 11-30-2017 Albumin mass conc 4.6 g/dL Normal 3.5-4.[address] [facility] Internal Medicine Work Phone: Comment on above: Oct 2017; PATIENT NO T FASTINGPERFORMED BY: CB [facility] Tdmxqu7798 [address] RoadDublin [place] [id number] Albumin/Globulin mass ratio 1.4 {ratio} Normal 1.2-2.2 [facility] Work Phone: Comment on above: Oct 2017; PATIENT NO T FASTINGPERFORMED BY: CB [facility] Plakil4276 [address] RoadDublin [place] [id number] ALP [Catalytic activity/Vol] 87 U/L Normal 39-117 [facility] Work Phone: Comment on above: Oct 2017; PATIENT NO T FASTINGPERFORMED BY: CB [facility] Xhuurd9162 [address] RoadDuin [place] [id number] ALP enzyme act/vol 87 [iU]/L Normal 39-117 [facility] Internal Medicine Work Phone: Comment on above: Oct 2017; PATIENT NO T FASTINGPERFORMED BY: CB [facility] Hxnwzy0243 [address]bl[address] [place] [id number] ALT [Catalytic activity/Vol] 49 U/L Abnormal 0-32 [facility] Work Phone: Comment on above: Oct 2017; PATIENT NO T FASTINGPERFORMED BY: CB [facility] Qpjspl2034 [address] RoadDublin [place] [id number] ALT enzyme act/vol 49 [iU]/L Abnormal 0-32 [facility] Internal Medicine Work Phone: Comment on above: Oct 2017; PATIENT NO T FASTINGPERFORMED BY: CB [facility] Wsdymi9311 [address] RoadDublin [place] [id number] AST [Catalytic activity/Vol] 41 U/L Abnormal 0-40 [facility] Work Phone: Comment on above: Oct 2017; PATIENT NO T FASTINGPERFORMED BY: CB [facility] Gamptn1289 [address]bl[address] [place] [id number] AST enzyme act/vol 41 [iU]/L Abnormal 0-40 Compre [facility] Internal Medicine Work Phone: Comment on above: Oct 2017; PATIENT NO T FASTINGPERFORMED BY: CB [facility] Abhtbt7932 [address]Dublin [place] [id number] Bilirubin mass conc 0.3 mg/dL Normal 0.0-1.2 Compr ensive Internal Medicine Work Phone: Comment on above: Oct 2017; PATIENT NO T FASTINGPERFORMED BY: CB [facility] Obrzul4292 [address] RoadDublin [place] [id number] Calcium mass conc 10.0 mg/dL Normal 8.7-10.3 Compreh [facility] Internal Medicine Work Phone: Comment on above: Oct 2017; PATIENT NO T FASTINGPERFORMED BY: ANGELI [facility] Xeblfa9067 [address] RoadNovant Health Ballantyne [facility] Centerin [place] [id number] Chloride molar conc 100 mmol/L Normal 96-106 Compr ensive Internal Medicine Work Phone: Comment on above: Oct 2017; PATIENT NO T FASTINGPERFORMED BY: ANGELI [facility] Lmvqrj6964 [address] RoadNovant Health Ballantyne Medical Centerin [place] [id number] CO2 molar conc 24 mmol/L Normal 18-[address] [facility] Internal Medicine Work Phone: Comment on above: Oct 2017; PATIENT NO T FASTINGPERFORMED BY: ANGELI [facility] Edfiig8973 [address] [facility] [id number] Creatinine mass conc 0.69 mg/dL Normal 0.57-1.00 Comp [facility] Work Phone: Comment on above: Oct 2017; PATIENT NO T FASTINGPERFORMED BY: CB [facility] Ppfyex0282 [address] RoadNovant Health Ballantyne Medical Centerin [place] [id number] GFR/1.73 sq M predicted among blacks CKD-EPI vol rate/area (S/P/Bld) 101 mL/min/1.73 Normal Comprehe ive Internal Medicine Work Phone: Comment on above: Oct 2017; PATIENT NO T FASTINGPERFORMED BY: CB [facility] Rdmtja8048 [address] RoadDublin [place] [id number] GFR/1.73 sq M predicted among non-blacks CKD-EPI vol rate/area (S/P/Bld) 87 mL/min/1.73 Normal [facility] Work Phone: Comment on above: Oct 2017; PATIENT NO T FASTINGPERFORMED BY: CB [facility] Mdblso3178 [address] RoadDublin [place] [id number] Globulin Calculated mass conc (S) 3.2 g/dL Normal 1.5-4.5 [facility] Work Phone: Globulin mass conc (S) 3.2 g/dL Normal 1.5-4.5 Co mprehensive Internal Medicine Work Phone: Comment on above: Oct 2017; PATIENT NO T FASTINGPERFORMED BY: CB [facility] Gxdidt4774 [address] RoadAylablin [place] [id number] Glucose mass conc 125 mg/dL Abnormal 65-99 Compreh ensive Internal Medicine Work Phone: Comment on above: Oct 2017; PATIENT NO T FASTINGPERFORMED BY: CB [facility] Ivkawd6783 [address] RoadAylain [place] [id number] Potassium molar conc 4.7 mmol/L Normal 3.5-5.2 Comp rehensive Internal Medicine Work Phone: Comment on above: Oct 2017; PATIENT NO T FASTINGPERFORMED BY: CB [facility] Jpwcsf1039 [address] RoadDublin [place] [id number] Protein mass conc 7.8 g/dL Normal 6.0-8.5 Compreh ensive Internal Medicine Work Phone: Comment on above: Oct 2017; PATIENT NO T FASTINGPERFORMED BY: CB [facility] Pxxbby1375 [address] RoadDublin [place] [id number] Sodium molar conc 141 mmol/L Normal 134-144 Compreh ensive Internal Medicine Work Phone: Comment on above: Oct 2017; PATIENT NO T FASTINGPERFORMED BY: CB [facility] Kjervp6498 [address] RoadDublin [place] [id number] Urea nitrogen mass conc 19 mg/dL Normal 8-27 C omprehensive Internal Medicine Work Phone: Comment on above: Oct 2017; PATIENT NO T FASTINGPERFORMED BY: ANGELI [facility] Vezsys2104 [facility] [id number] Urea nitrogen/Creatinine mass ratio 28 mg/mg Normal 12-28 [facility] Work Phone: Comment on above: Oct 2017; PATIENT NO T FASTINGPERFORMED BY: ANGELI [facility] Vbopej3755 [facility] [id number] TSH (THYROID STIMULATING HOR BARRON) (64638)Ordered By: Net Programmer on 11-30-2017 Thyrotropin Qn 5.470 {uIU/mL} Abnormal 0.450-4.50 0 [facility] Work Phone: Comment on above: Oct 2017; PATIENT NO T FASTINGPERFORMED BY: ANGELI [facility] Jtmhlh5514 [facility] [id number] [place] Procedure Noteon [place] Procedure Note Normal A On license of [facility] ([place]) Final Surgical Pathology Rep [facility] 09-21-2017 Final Surgical Pathology Report . 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 - THE INKED AND CAUTERIZED MARGIN FOCALLY HAS ADENOMATOUS CHANGE BUT IS NEGATIVE FOR HIGH GRADE DYSPLASIA.C) PROXIMAL TRANSVERSE COLON, BIOPSY: - TUBULAR ADENOMA.COMMENT:[facility]# [id number] INFORMATION:Procedure: COLONOSCOPY WITH POLYP BIOPSY / COLD [...] cm. A S -1Dictated by RAYMUNDO REDD ([facility])MICROSCOPIC DESCRIPTION:Slides reviewed.Electronically Signed byPathology Report verified by [facility] HospitalElectronically signed by RAMIN Atkins out Date: 09/21/2017 14:09Performing Lab: [facility], [address] [place] [address] Normal [facility] ([place]) Comment on above: Performed By: #### S PFR ####[facility] [place] [address] AO ENDO Procedure Recordon 09-20-2017 AO ENDO Procedure Record Normal [facility]) Anesthesiology Consultationo n 09-20-2017 Anesthesiology Consultation Normal [facility]) History and Physicalon 09-20 History and Physical Normal [facility]) Blood Glucose , Office (4496 2)Ordered By: Latrice Levy on 08-10-2017 Glucose Glucometer molar conc (BldC) 90 1 Normal [facility] Work Phone: HgA1C , Office ([id number])Ordere d By: Latrice Levy on 08-10-2017 Hemoglobin A1c/Hemoglobin.total mass fraction (Bld) 6.2 % Normal 4.6 - 7.1 Comprehensiv e Internal Medicine Work Phone: [id number]-EGANQXQICIC-CSNWA ([phone])Ordered By: Net Programmer on 08-03-2017 AFP.tumor marker mass conc 3.7 ng/mL Normal 0.0-8.3 [facility] Work Phone: Comment on above: Nora ECLIA methodol ogy Jul 2017; PATIENT W FASTINGPERFORMED BY: [facility] Wsgefw0495 [facility] [id number] Lipid Panel (22033)Ordered B y: Net Programmer on 08-03-2017 Cholesterol in HDL mass conc 52 mg/dL Normal [facility] Work Phone: Comment on above: Jul 2017; PATIENT W FASTINGPERFORMED BY: ANGELI LabDajuan WeldonNdoeta1643 [facility] [id number] Cholesterol in LDL mass conc 142 mg/dL Abnormal 0-99 [facility] Work Phone: Comment on above: Jul 2017; PATIENT W FASTINGPERFORMED BY: ANGELI LabDajuan WeldonAhwmqt6038 [facility] [id number] Cholesterol in LDL/Cholesterol in HDL mass ratio 2.7 {ratio_units} Normal 0.0-3.2 [facility] Work Phone: Comment on above: LDL/HDL Ratio Men Wo men 1/2 Avg.Risk 1.0 1.5 Avg.Risk 3.6 3.2 2X Avg.Risk 6.2 5.0 3X Avg.Risk 8.0 6.1 Jul 2017; PATIENT W FASTINGPERFORMED BY: ANGELI Weldonlin6370 [facility] [id number] Cholesterol in VLDL mass conc 24 mg/dL Normal 5-40 [facility] Work Phone: Comment on above: Jul 2017; PATIENT W FASTINGPERFORMED BY: ANGELI LabDajuan WeldonBqcinl4294 [facility] [id number] Cholesterol mass conc 218 mg/dL Abnormal 100-199 Com prehensive Internal Medicine Work Phone: Comment on above: Jul 2017; PATIENT W FASTINGPERFORMED BY: ANGELI LabDajuan WeldonFsyvww7301 [facility] [id number] Triglyceride mass conc 118 mg/dL Normal 0-149 Co [facility] hospitalehens[facility] Internal Medicine Work Phone: Comment on above: Jul 2017; PATIENT W FASTINGPERFORMED BY: ANGELI LabComauri WeldonPlhsrl5867 [facility] [id number] Metabolic Panel, Comprehensi ve (09948)Ordered By: Net Programmer on 08-03-2017 Albumin mass conc 4.2 g/dL Normal 3.5-4.8 Compreh ensive Internal Medicine Work Phone: Comment on above: jul 2017; PATIENT W FASTINGPERFORMED BY: CB [facility] Lrkler9094 [address]Dublin [place] [id number] Albumin/Globulin mass ratio 1.4 {ratio} Normal 1.2-2.2 [facility] Work Phone: Comment on above: jul 2017; PATIENT W FASTINGPERFORMED BY: CB [facility] Amatrs6108 [address] RoadDublin [place] [id number] ALP [Catalytic activity/Vol] 78 U/L Normal 39-117 [facility] Work Phone: Comment on above: jul 2017; PATIENT W FASTINGPERFORMED BY: CB [facility] Yaluvn8977 [address] RoadDublin [place] [id number] ALP enzyme act/vol 78 [iU]/L Normal 39-117 [facility] Work Phone: Comment on above: jul 2017; PATIENT W FASTINGPERFORMED BY: CB [facility] Amhsez3803 [address] RoadDublin [place] [id number] ALT [Catalytic activity/Vol] 43 U/L Abnormal 0-32 [facility] Work Phone: Comment on above: ADDENDA: Stable. OV 10 aug 2017; PATIENT W FASTINGPERFORMED BY: CB [facility] Oshyed8326 [address] RoadDublin [place] [id number] ALT enzyme act/vol 43 [iU]/L Abnormal 0-32 [facility] Work Phone: Comment on above: ADDENDA: Stable. OV 10 aug 2017; PATIENT W FASTINGPERFORMED BY: CB [facility] Mupkyp6171 [address]Dublin [place] [id number] AST [Catalytic activity/Vol] 39 U/L Normal 0-40 [facility] Work Phone: Comment on above: jul 2017; PATIENT W FASTINGPERFORMED BY: CB [facility] Hnonvz9202 [address] RoadDublin [place] [id number] AST enzyme act/vol 39 [iU]/L Normal 0-40 [facility] Work Phone: Comment on above: jul 2017; PATIENT W FASTINGPERFORMED BY: CB [facility] Voahqz9634 [address] RoadDublin [place] [id number] Bilirubin mass conc 0.3 mg/dL Normal 0.0-1.2 Compr ensive Internal Medicine Work Phone: Comment on above: jul 2017; PATIENT W FASTINGPERFORMED BY: CB [facility] Ityntk0809 [address]Dublin [place] [id number] Calcium mass conc 9.5 mg/dL Normal 8.7-10.3 Compreh ensive Internal Medicine Work Phone: Comment on above: jul 2017; PATIENT W FASTINGPERFORMED BY: CB [facility] Xygjul6968 [address] RoadDublin [place] [id number] Chloride molar conc 104 mmol/L Normal 96-106 Compr [facility] Internal Medicine Work Phone: Comment on above: jul 2017; PATIENT W FASTINGPERFORMED BY: CB [facility] Vmydju0736 [address] RoadDublin [place] [id number] CO2 molar conc 22 mmol/L Normal 18-29 Comprehens michael Internal Medicine Work Phone: Comment on above: jul 2017; PATIENT W FASTINGPERFORMED BY: CB [facility] Rdysgo7047 [address] RoadDublin [place] [id number] Creatinine mass conc 0.68 mg/dL Normal 0.57-1.00 [facility] Work Phone: Comment on above: jul 2017; PATIENT W FASTINGPERFORMED BY: CB [facility] Lmqtfp1464 [address] RoadDublin [place] [id number] GFR/1.73 sq M predicted among blacks CKD-EPI vol rate/area (S/P/Bld) 101 mL/min/1.73 Normal Comprehe nsive Internal Medicine Work Phone: Comment on above: jul 2017; PATIENT W FASTINGPERFORMED BY: CB [facility] Pycecs9907 [address] RoadDublin [place] [id number] GFR/1.73 sq M predicted among non-blacks CKD-EPI vol rate/area (S/P/Bld) 88 mL/min/1.73 Normal [facility] Work Phone: Comment on above: jul 2017; PATIENT W FASTINGPERFORMED BY: ANGELI [facility] Wqdukl[address] IDYIA InnovationsAt[facility] [id number] Globulin Calculated mass conc (S) 3.1 g/dL Normal 1.5-4.5 [facility] Work Phone: Globulin mass conc (S) 3.1 g/dL Normal 1.5-4.5 Co mprehensive Internal Medicine Work Phone: Comment on above: jul 2017; PATIENT W FASTINGPERFORMED BY: ANGELI [facility] Vquooi[address] IDYIA InnovationsAt[facility] [id number] Glucose mass conc 104 mg/dL Abnormal 65-99 Compreh ensive Internal Medicine Work Phone: Comment on above: jul 2017; PATIENT W FASTINGPERFORMED BY: ANGELI [facility] Xhskix[address] IDYIA InnovationsAt[facility] [id number] Potassium molar conc 4.9 mmol/L Normal 3.5-5.2 Comp rehensive Internal Medicine Work Phone: Comment on above: jul 2017; PATIENT W FASTINGPERFORMED BY: ANGELI [facility] Enbhnm[address] BrowsarityFormerly [facility] [id number] Protein mass conc 7.3 g/dL Normal 6.0-8.5 Compreh ensive Internal Medicine Work Phone: Comment on above: jul 2017; PATIENT W FASTINGPERFORMED BY: ANGELI [facility] Rrwiar4538 [address] IDYIA InnovationsAt[facility] [id number] Sodium molar conc 144 mmol/L Normal 134-144 Compreh ensive Internal Medicine Work Phone: Comment on above: jul 2017; PATIENT W FASTINGPERFORMED BY: ANGELI [facility] Exhhwh5552 [facility] [id number] Urea nitrogen mass conc 12 mg/dL Normal 8-27 C omprehensive Internal Medicine Work Phone: Comment on above: jul 2017; PATIENT W FASTINGPERFORMED BY: ANGELI [facility] Bmpfwb7748 [facility] [id number] Urea nitrogen/Creatinine mass ratio 18 mg/mg Normal 12- [facility] Work Phone: Comment on above: jul 2017; PATIENT W FASTINGPERFORMED BY: ANGELI Pet Ready Aojdlm0387 [facility] [id number] Blood Glucose , Office (3696 2)Ordered By: Federica Olivarez on 05-07-2017 Glucose Glucometer molar conc (BldC) 132 1 Normal [facility] Work Phone: HgA1C , Office ([phone])Ordere d By: Federica Olivarez on 05-07-2017 Hemoglobin A1c/Hemoglobin.total mass fraction (Bld) 6.1 % Normal 4.6 - 7.1 Comprehensiv e Internal Medicine Work Phone: Comment on above: 6.1 CALCIFEDIOL (45151)Ordered B y: Net Programmer on 02-03-2017 25-Hydroxyvitamin D2+25-Hydroxyvitamin D3 mass conc 36.7 ng/mL Normal 30.0-100.0 [facility] Work Phone: Comment on above: Vitamin D deficiency has been defined by the [place] ofMedicine and an Endocrine Society practice guideline as alevel of serum 25-OH vitamin D less than 20 ng/mL (1,2).The Endocrine Society went on to further define vitamin Dinsufficiency as a level between 21 and 29 ng/mL (2).1. IOM ([place] of Medicine). 2010. Dietary reference intakes for calcium and D. [place]: The National Academies Press.2. Ace MF, Lurdes [place], Cynthia COFFMAN, et al. Evaluation, treatment, and prevention of vitamin D deficiency: an Endocrine Society clinical practice guideline. JCEM. 2010; 96(7):1911-30. PATIENT WAS FASTINGP ERFORMED BY: ANGELI [employer] Fbzavz3713 [facility] [id number] MICROALBUMINOrdered By: Syst em Steam Fitter on 02-03-2017 Albumin DL <= 20 mg/L mass conc (U) 5.1 ug/mL Normal [facility] Work Phone: Comment on above: PATIENT WAS FASTINGP ERFORMED BY: ANGELI [facility] Tgixoy5718 [facility] [id number] Albumin/Creatinine mass ratio (U) 4.4 {mg/g_creat} Normal 0.0-30.0 [facility] Work Phone: Comment on above: PATIENT WAS FASTINGP ERFORMED BY: [facility] Hmaqpx0064 [facility] [id number] Creatinine mass conc (U) 117.0 mg/dL Normal [facility] Work Phone: Comment on above: PATIENT WAS FASTINGP ERFORMED BY: [facility] Bivijn1558 [facility] [id number] Metabolic Panel, Comprehensi ve (19619)Ordered By: Net Programmer on 02-03-2017 Albumin/Globulin mass ratio 1.4 {ratio} [...] - 2.2 PATIENT WAS FASTINGP ERFORMED BY: [facility] Zmzruz2915 [facility] [id number]; ov 02/09 ALP [Catalytic activity/Vol] 82 U/L Normal 39-117 [facility] Work Phone: Comment on above: PATIENT WAS FASTINGP ERFORMED BY: [facility] Aiihjp2461 [facility] [id number]; ov 02/09 ALP enzyme act/vol 82 [iU]/L Normal 39-117 [facility] Work Phone: Comment on above: PATIENT WAS FASTINGP ERFORMED BY: [facility] Pimmsp9810 [address] RoadDublin [place] [id number]; ov 3/14 ALT [Catalytic activity/Vol] 50 U/L Abnormal 0-32 [facility] Work Phone: Comment on above: PATIENT WAS FASTINGP ERFORMED BY: CB [facility] Gbrkjx8713 [address] RoadDublin [place] [id number]; ov 3/14 ALT enzyme act/vol 50 [iU]/L Abnormal 0-32 [facility] Work Phone: Comment on above: PATIENT WAS FASTINGP ERFORMED BY: CB [facility] Mhdzfl5090 [address] RoadDublin [place] [id number]; ov 314 AST [Catalytic activity/Vol] 43 U/L Abnormal 0-40 [facility] Internal Medicine Work Phone: Comment on above: PATIENT WAS FASTINGP ERFORMED BY: CB [facility] Pbdood0567 [address] RoadDublin [place] [id number]; ov 314 AST enzyme act/vol 43 [iU]/L Abnormal 0-40 [facility] Work Phone: Comment on above: PATIENT WAS FASTINGP ERFORMED BY: CB [facility] Ygliyp6299 [address] RoadDublin [place] [id number]; ov 3/14 Bilirubin mass conc 0.3 mg/dL Normal 0.0-1.2 [facility] Internal Medicine Work Phone: Comment on above: PATIENT WAS FASTINGP ERFORMED BY: CB [facility] Aumxnx9396 [address] RoadDublin [place] [id number]; ov 3/14 Calcium mass conc 9.8 mg/dL Normal 8.7-10.3 [facility] Internal Medicine Work Phone: Comment on above: PATIENT WAS FASTINGP ERFORMED BY: CB [facility] Dvbzcp0498 [address] RoadDublin [place] [id number]; ov 3/14 Chloride molar conc 102 mmol/L Normal 96-106 [facility] Internal Medicine Work Phone: Comment on above: PATIENT WAS FASTINGP ERFORMED BY: CB [facility] Noyiof6914 [address] RoadDublin [place] [id number]; ov 3/14 CO2 molar conc 21 mmol/L Normal 18-29 Comprehens michael Internal Medicine Work Phone: Comment on above: PATIENT WAS FASTINGP ERFORMED BY: CB [facility] Zllbax[address] [facility] [id number]; ov 3/14 Creatinine mass conc 0.67 mg/dL Normal 0.57-1.00 Comp rehensive Internal Medicine Work Phone: Comment on above: PATIENT WAS FASTINGP ERFORMED BY: CB [facility] Pwrwch[address] [facility] [id number]; ov 3/14 GFR/1.73 sq M predicted among blacks CKD-EPI vol rate/area (S/P/Bld) 102 mL/min/1.73 Normal Comprehe nsive Internal Medicine Work Phone: Comment on above: PATIENT WAS FASTINGP ERFORMED BY: ANGELI [facility] Evgrab2589 [facility] [id number]; ov 3/14 GFR/1.73 sq M predicted among non-blacks CKD-EPI vol rate/area (S/P/Bld) 89 mL/min/1.73 Normal [facility] Work Phone: Comment on above: PATIENT WAS FASTINGP ERFORMED BY: ANGELI [facility] Whacsj4252 [facility] [id number]; ov 3/14 Globulin Calculated mass conc (S) 3.1 g/dL Normal 1.5-4.5 [facility] Work Phone: Globulin mass conc (S) 3.1 g/dL Normal 1.5-4.5 Co [facility]erensive [facility] Work Phone: Comment on above: PATIENT WAS FASTINGP ERFORMED BY: CB [facility] Rurdrc6113 [facility] [id number]; ov 3/14 Potassium molar conc 5.1 mmol/L Normal 3.5-5.2 Comp rehensive Internal Medicine Work Phone: Comment on above: PATIENT WAS FASTINGP ERFORMED BY: CB [facility] Ufogvo1366 [address] RoadDublin [place] [id number]; ov 3/14 Protein mass conc 7.4 g/dL Normal 6.0-8.5 Compreh ensive Internal Medicine Work Phone: Comment on above: PATIENT WAS FASTINGP ERFORMED BY: CB [facility] Pranzl9952 [address] RoadDublin [place] [id number]; ov 314 Sodium molar conc 142 mmol/L Normal 134-144 Compreh ensive Internal Medicine Work Phone: Comment on above: PATIENT WAS FASTINGP ERFORMED BY: CB [facility] Fcggqw1723 [address] RoadDublin [place] [id number]; ov 314 PATIENT WAS FASTINGP ERFORMED BY: CB [facility] Zlgjeg9424 [address] RoadDublin [place] [id number] Urea nitrogen mass conc 12 mg/dL Normal 8-27 C omprehensive Internal Medicine Work Phone: Comment on above: PATIENT WAS FASTINGP ERFORMED BY: CB [facility] Yfyvqc5763 [address] RoadDublin [place] [id number] PATIENT WAS FASTINGP ERFORMED BY: CB [facility] Qlvjzs1260 [address] RoadDublin [place] [id number]; ov 314 Urea nitrogen/Creatinine mass ratio 18 mg/mg Normal 11-26 [facility] Work Phone: Comment on above: PATIENT WAS FASTINGP ERFORMED BY: CB [facility] Dcpqbw4374 [address] RoadDublin [place] [id number]; ov 314 Renal function Panel ([id number]) Ordered By: Net Programmer on 02-03-2017 Albumin mass conc 4.3 g/dL Normal 3.5-4.8 Compreh ensive Internal Medicine Work Phone: Comment on above: PATIENT WAS FASTINGP ERFORMED BY: CB [facility] Vsbskj1525 [address] RoadDublin [place] [id number] PATIENT WAS FASTINGP ERFORMED BY: CB [facility] Lioqnb1373 [address] RoadDublin [place] [id number]; ov 3/14 Calcium mass conc 9.9 mg/dL Normal 8.7-10.3 Compreh ensive Internal Medicine Work Phone: Comment on above: PATIENT WAS FASTINGP ERFORMED BY: ANGELI [facility] Mfkgbj7489 [address] RoadDublin [place] [id number] Chloride molar conc 101 mmol/L Normal 96-106 Compr ehensive Internal Medicine Work Phone: Comment on above: PATIENT WAS FASTINGP ERFORMED BY: ANGELI [facility] Ufkvio6607 [address] RoadDublin [place] [id number] CO2 molar conc 23 mmol/L Normal 18-29 Comprehens michael Internal Medicine Work Phone: Comment on above: PATIENT WAS FASTINGP ERFORMED BY: ANGELI [facility] Rwayot3985 [address] RoadDublin [place] [id number] Creatinine mass conc 0.64 mg/dL Normal 0.57-1.00 Comp rehensive Internal Medicine Work Phone: Comment on above: PATIENT WAS FASTINGP ERFORMED BY: ANGELI [facility] Ncauve6239 [address] RoadDublin [place] [id number] GFR/1.73 sq M predicted among blacks CKD-EPI vol rate/area (S/P/Bld) 104 mL/min/1.73 Normal Comprehe nsive Internal Medicine Work Phone: Comment on above: PATIENT WAS FASTINGP ERFORMED BY: ANGELI [facility] Okwixd0670 [address] RoadDublin [place] [id number] GFR/1.73 sq M predicted among non-blacks CKD-EPI vol rate/area (S/P/Bld) 90 mL/min/1.73 Normal [facility] Work Phone: Comment on above: PATIENT WAS FASTINGP ERFORMED BY: ANGELI [facility] Tdmoxy7230 [address] RoadDublin [place] [id number] Glucose mass conc 108 mg/dL Abnormal 65-99 Compreh ensive Internal Medicine Work Phone: Comment on above: PATIENT WAS FASTINGP ERFORMED BY: ANGELI [facility] Iiffjf6265 [address] RoadDublin [place] [id number] PATIENT WAS FASTINGP ERFORMED BY: CB [facility] Kxotyx6471 [address] RoadDublin [place] [id number]; ov 3/14 Phosphate mass conc 3.5 mg/dL Normal 2.5-4.5 [facility] Work Phone: Comment on above: PATIENT WAS FASTINGP ERFORMED BY: [facility] Fqknwc2383 [facility] [id number] Potassium molar conc 5.2 mmol/L Normal 3.5-5.2 Comp [facility] Work Phone: Comment on above: PATIENT WAS FASTINGP ERFORMED BY: [facility] Zwrqua3905 [facility] [id number] Urea nitrogen/Creatinine mass ratio 19 mg/mg Normal 10-24 [facility] Work Phone: Comment on above: PATIENT WAS FASTINGP ERFORMED BY: LabCoVirtua MarltonCcnrhu5190 [facility] [id number] Blood Glucose , Office (8296 2)Ordered By: Latrice Levy on 12-09-2016 Glucose Glucometer molar conc (BldC) 110 1 Normal [facility] Work Phone: [id number] ([phone])Ordered By: Net Programmer on 10-13-2016 AFP.tumor marker mass conc 4.7 ng/mL Normal 0.0-8.3 [facility] Work Phone: Comment on above: Nora ECLIA methodol ogy PATIENT NOT FASTINGP ERFORMED BY: [facility] Sqpvge3190 [facility] [id number] Blood Glucose , Office (8296 2)Ordered By: Latrice Levy on 10-13-2016 Glucose Glucometer molar conc (BldC) 144 1 Normal [facility] Work Phone: CALCIFEDIOL ([phone])Ordered B y: Net Programmer on 09-30-2016 25-Hydroxyvitamin D2+25-Hydroxyvitamin D3 mass conc 20.2 ng/mL Abnormal 30.0-100.0 [facility] Work Phone: Comment on above: Vitamin D deficiency has been defined by the [place] ofMedicine and an Endocrine Society practice guideline as alevel of serum 25-OH vitamin D less than 20 ng/mL (1,2).The Endocrine Society went on to further define vitamin Dinsufficiency as a level between 21 and 29 ng/mL (2).1. IOM ([place] of Medicine). 2010. Dietary reference intakes for calcium and D. [place]: The National Academies Press.2. Ace MF, Lurdes WELLS, Cynthia COFFMAN, et al. Evaluation, treatment, and prevention of vitamin D deficiency: an Endocrine Society clinical practice guideline. JCEM. 2010; 96(7):1911-30. PATIENT NOT FASTINGP ERFORMED BY: Medstro [facility] Znfmsj7172 [address] RoadDublin [place] [id number] CBC with auto diff (75042)Or dered By: Net Programmer on 09-30-2016 Basophils #/vol (Bld) 0.0 {x10E3/uL} Normal 0.0-0.2 [facility] Work Phone: Comment on above: PATIENT NOT FASTINGP ERFORMED BY: CB [facility] Uokybr9899 [address] RoadDublin [place] [id number] Basophils (Bld) [#/Vol] 0.0 10*3/uL Normal 0.0-0.2 [facility] Work Phone: Comment on above: PATIENT NOT FASTINGP ERFORMED BY: CB [facility] Jlwoga3728 [address] RoadDublin [place] [id number] Basophils Auto #/vol (Bld) 0.0 {x10E3/uL} Normal 0.0-0.2 [facility] Work Phone: Basophils/100 WBC (Bld) 1 % Normal C omprehensive Internal Medicine Work Phone: Comment on above: PATIENT NOT FASTINGP ERFORMED BY: CB [facility] Tehgqn3344 [address] RoadDublin [place] [id number] Basophils/100 WBC Auto (Bld) 1 % Normal [facility] Work Phone: Eosinophils #/vol (Bld) 0.3 {x10E3/uL} Normal 0.0-0.4 [facility] Work Phone: Comment on above: PATIENT NOT FASTINGP ERFORMED BY: ANGELI LabComauri Xzvlcf7846 [address] [facility]in [place] [id number] Eosinophils (Bld) [#/Vol] 0.3 10*3/uL Normal 0.0-0.4 [facility] Work Phone: Comment on above: PATIENT NOT FASTINGP ERFORMED BY: ANGELI [facility] Txgeqq5715 [address] RoadNovant Health Ballantyne Medical Centerin [place] [id number] Eosinophils Auto #/vol (Bld) 0.3 {x10E3/uL} Normal 0.0-0.4 [facility] Work Phone: Eosinophils/100 WBC (Bld) 3 % Normal [facility] Work Phone: Comment on above: PATIENT NOT FASTINGP ERFORMED BY: ANGELI Isabell Weldonlin6370 Mcghee RoadAtrium Health [facility] [id number] Eosinophils/100 WBC Auto (Bld) 3 % Normal [facility] Work Phone: Erythrocyte distribution width Auto Ratio (RBC) 13.8 % Normal 12.3-15.4 [facility] Work Phone: Erythrocyte distribution width Ratio (RBC) 13.8 % Normal 12.3-15.4 [facility] Work Phone: Comment on above: PATIENT NOT FASTINGP ERFORMED BY: ANGELI Simmons Jtfhuy8[address] [facility] [id number] Hematocrit Auto Volume Fraction (Bld) 39.9 % Normal 34.0-46.6 [facility] Work Phone: Hematocrit Volume Fraction (Bld) 39.9 % Normal 34.0-46.6 [facility] Work Phone: Comment on above: PATIENT NOT FASTINGP ERFORMED BY: ANGELI [facility] Czwxcl5532 [address] [facility] [id number] Hemoglobin mass conc (Bld) 13.7 g/dL Normal 11.1-15.9 [facility] Work Phone: Comment on above: PATIENT NOT FASTINGP ERFORMED BY: ANGELI [facility] Ropuoo9415 [address] [facility] [id number] Immature granulocytes #/vol (Bld) 0.0 {x10E3/uL} Normal 0.0-0.1 [facility] Work Phone: Comment on above: PATIENT NOT FASTINGP ERFORMED BY: ANGELI NereydaComauri WeldonXhzyef7775 Mc[address] RoadNovant Health Ballantyne Medical Centerin [place] [id number] Immature granulocytes (Bld) [#/Vol] 0.0 10*3/uL Normal 0.0-0.1 [facility] Work Phone: Comment on above: PATIENT NOT FASTINGP ERFORMED BY: [facility] Gnaaqz0035 [address] [facility]in [place] [id number] Immature granulocytes/100 WBC (Bld) 0 % Normal [facility] Work Phone: Comment on above: PATIENT NOT FASTINGP ERFORMED BY: NereydaSsm Health [facility] Jjngpw6338 [address] [facility] [id number] Lymphocytes #/vol (Bld) 3.0 {x10E3/uL} Normal 0.7-3.1 [facility] Work Phone: Comment on above: PATIENT NOT FASTINGP ERFORMED BY: [facility] Axatzv2610 [address] [facility] [place] [id number] Lymphocytes (Bld) [#/Vol] 3.0 10*3/uL Normal 0.7-3.1 [facility] Work Phone: Comment on above: PATIENT NOT FASTINGP ERFORMED BY: LabDonald Ville 27988[address] [facility] [id number] Lymphocytes Auto #/vol (Bld) 3.0 {x10E3/uL} Normal 0.7-3.1 [facility] Work Phone: Lymphocytes/100 WBC (Bld) 38 % Normal [facility] Work Phone: Comment on above: PATIENT NOT FASTINGP ERFORMED BY: LabCo Grgrwt6030 [address] RoadNovant Health Ballantyne Medical Centerin [place] [id number] Lymphocytes/100 WBC Auto (Bld) 38 % Normal [facility] Work Phone: MCH Auto Entitic mass (RBC) 29.8 pg Normal 26.6-33.0 [facility] Work Phone: MCH Entitic mass (RBC) 29.8 pg Normal 26.6-33.0 Co [facility] Internal Medicine Work Phone: Comment on above: PATIENT NOT FASTINGP ERFORMED BY: [facility] Nilnuq5745 [facility] [id number] MCHC Auto mass conc (RBC) 34.3 g/dL Normal 31.5-35.7 [facility] Work Phone: MCHC mass conc (RBC) 34.3 g/dL Normal 31.5-35.7 [facility] Internal Medicine Work Phone: Comment on above: PATIENT NOT FASTINGP ERFORMED BY: LabCoVirtua MarltonUymeko6242 [facility] [id number] MCV Auto Entitic volume (RBC) 87 fL Normal 79-97 [facility] Work Phone: MCV Entitic volume (RBC) 87 fL Normal 79-97 [facility] Work Phone: Comment on above: PATIENT NOT FASTINGP ERFORMED BY: [facility] Aovspc2927 [facility] [id number] Monocytes #/vol (Bld) 0.6 {x10E3/uL} Normal 0.1-0.9 [facility] Work Phone: Comment on above: PATIENT NOT FASTINGP ERFORMED BY: [facility] Zqpgpd0333 [facility] [id number] Monocytes (Bld) [#/Vol] 0.6 10*3/uL Normal 0.1-0.9 [facility] Work Phone: Comment on above: PATIENT NOT FASTINGP ERFORMED BY: [facility] Owmbnx0442 [facility] [id number] Monocytes Auto #/vol (Bld) 0.6 {x10E3/uL} Normal 0.1-0.9 [facility] Work Phone: Monocytes/100 WBC (Bld) 7 % Normal C omprehensive Internal Medicine Work Phone: Comment on above: PATIENT NOT FASTINGP ERFORMED BY: CB [facility] Acraow3498 [address] RoadDublin [place] [id number] Monocytes/100 WBC Auto (Bld) 7 % Normal [facility] Work Phone: Neutrophils #/vol (Bld) 3.9 {x10E3/uL} Normal 1.4-7.0 [facility] Work Phone: Comment on above: PATIENT NOT FASTINGP ERFORMED BY: CB [facility] Ckhmmb8599 [address] RoadDublin [place] [id number] Neutrophils (Bld) [#/Vol] 3.9 10*3/uL Normal 1.4-7.0 [facility] Work Phone: Comment on above: PATIENT NOT FASTINGP ERFORMED BY: CB [facility] Eijmsm4845 [address] RoadDublin [place] [id number] Neutrophils Auto #/vol (Bld) 3.9 {x10E3/uL} Normal 1.4-7.0 [facility] Work Phone: Neutrophils/100 WBC (Bld) 51 % Normal [facility] Work Phone: Comment on above: PATIENT NOT FASTINGP ERFORMED BY: CB [facility] Xpewlp2059 [address] RoadDublin [place] [id number] Neutrophils/100 WBC Auto (Bld) 51 % Normal [facility] Work Phone: Platelets #/vol (Bld) 145 {x10E3/uL} Abnormal 150-379 [facility] Work Phone: Comment on above: PATIENT NOT FASTINGP ERFORMED BY: CB [facility] Cfltra0901 [address] RoadDublin [place] [id number] Platelets (Bld) [#/Vol] 145 10*3/uL Abnormal 150-379 [facility] Work Phone: Comment on above: PATIENT NOT FASTINGP ERFORMED BY: CB [facility] Scnzzn6157 [address] RoadDublin [place] [id number] Platelets Auto #/vol (Bld) 145 {x10E3/uL} Abnormal 150-379 [facility] Work Phone: RBC #/vol (Bld) 4.59 {x10E6/uL} Normal 3.77-5.28 Comp [facility] Internal Medicine Work Phone: Comment on above: PATIENT NOT FASTINGP ERFORMED BY: CB [facility] Uzatdu[address] [facility] [id number] RBC (Bld) [#/Vol] 4.59 10*6/uL Normal 3.77-5.28 Compr [facility] Internal Medicine Work Phone: Comment on above: PATIENT NOT FASTINGP ERFORMED BY: CB [facility] Ghpqbd1170 [address] [facility] [id number] RBC Auto #/vol (Bld) 4.59 {x10E6/uL} Normal 3.77-5.28 [facility] Work Phone: WBC #/vol (Bld) 7.8 {x10E3/uL} Normal 3.4-10.8 [facility] Internal Medicine Work Phone: Comment on above: PATIENT NOT FASTINGP ERFORMED BY: CB [facility] Vlpamt4357 [facility] [id number] WBC (Bld) [#/Vol] 7.8 10*3/uL Normal 3.4-10.8 [facility] Work Phone: Comment on above: PATIENT NOT FASTINGP ERFORMED BY: CB [facility] Bfmvrv6656 [facility] [id number] WBC Auto #/vol (Bld) 7.8 {x10E3/uL} Normal 3.4-10.8 [facility] Internal Medicine Work Phone: HgA1C , Office ([id number])Ordere d By: Latrice Levy on 09-30-2016 Hemoglobin A1c/Hemoglobin.total mass fraction (Bld) 9.7 % Abnormal 4.6 - 7.1 Comprehensiv e Internal Medicine Work Phone: METABOLIC PANEL, COMPREHENSI VE ([id number])Ordered By: Net Programmer on 09-30-2016 Albumin mass conc 4.4 g/dL Normal 3.5-4.8 [facility] Internal Medicine Work Phone: Comment on above: PATIENT NOT FASTINGP ERFORMED BY: ANGELI [facility] Pfzrdp0180 [address]Dublin [place] [id number] Albumin/Globulin mass ratio 1.3 {ratio} Normal 1.1-2.5 [facility] Work Phone: Comment on above: PATIENT NOT FASTINGP ERFORMED BY: CB [facility] Fvzyth4900 [address] RoadDublin [place] [id number] ALP [Catalytic activity/Vol] 90 U/L Normal 39-117 [facility] Internal Medicine Work Phone: Comment on above: PATIENT NOT FASTINGP ERFORMED BY: CB [facility] Rhovyf3081 [address] RoadDublin [place] [id number] ALP enzyme act/vol 90 [iU]/L Normal 39-117 [facility] Internal Medicine Work Phone: Comment on above: PATIENT NOT FASTINGP ERFORMED BY: CB [facility] Qmbcln5031 [address] RoadDublin [place] [id number] ALT [Catalytic activity/Vol] 83 U/L Abnormal 0-32 [facility] Medicine Work Phone: Comment on above: PATIENT NOT FASTINGP ERFORMED BY: CB [facility] Hvkoan9858 [address] RoadDublin [place] [id number] ALT enzyme act/vol 83 [iU]/L Abnormal 0-32 [facility] Internal Medicine Work Phone: Comment on above: PATIENT NOT FASTINGP ERFORMED BY: CB [facility] Brnnws6453 [address] RoadDublin [place] [id number] AST [Catalytic activity/Vol] 81 U/L Abnormal 0-40 [facility] Internal Medicine Work Phone: Comment on above: PATIENT NOT FASTINGP ERFORMED BY: CB [facility] Liqita0725 [address] RoadDublin [place] [id number] AST enzyme act/vol 81 [iU]/L Abnormal 0-40 [facility] Internal Medicine Work Phone: Comment on above: PATIENT NOT FASTINGP ERFORMED BY: CB [facility] Onstay9620 [address] RoadDublin [place] [id number] Bilirubin mass conc 0.3 mg/dL Normal 0.0-1.2 Compr ehensive Internal Medicine Work Phone: Comment on above: PATIENT NOT FASTINGP ERFORMED BY: CB [facility] Jxcskp5311 [address] RoadDublin [place] [id number] Calcium mass conc 9.9 mg/dL Normal 8.7-10.3 Compreh ensive Internal Medicine Work Phone: Comment on above: PATIENT NOT FASTINGP ERFORMED BY: CB [facility] Izbgfl2091 [address] RoadDublin [place] [id number] Chloride molar conc 98 mmol/L Normal 97-106 Compr ensive Internal Medicine Work Phone: Comment on above: PATIENT NOT FASTINGP ERFORMED BY: CB [facility] Bvuqxv2534 [address] RoadDublin [place] [id number] CO2 molar conc 22 mmol/L Normal 18-29 Comprehens michael Internal Medicine Work Phone: Comment on above: PATIENT NOT FASTINGP ERFORMED BY: CB [facility] Tcvrhb0186 [address] RoadDublin [place] [id number] Creatinine mass conc 0.68 mg/dL Normal 0.57-1.00 [facility] Work Phone: Comment on above: PATIENT NOT FASTINGP ERFORMED BY: CB [facility] Orkgyw2197 [address] RoadDublin [place] [id number] GFR/1.73 sq M predicted among blacks CKD-EPI vol rate/area (S/P/Bld) 102 mL/min/1.73 Normal Comprehe nsive Internal Medicine Work Phone: Comment on above: PATIENT NOT FASTINGP ERFORMED BY: CB [facility] Xwfsdj3803 [address] RoadDublin [place] [id number] GFR/1.73 sq M predicted among non-blacks CKD-EPI vol rate/area (S/P/Bld) 88 mL/min/1.73 Normal [facility] Medicine Work Phone: Comment on above: PATIENT NOT FASTINGP ERFORMED BY: CB [facility] Tbfmae0317 [address]Dublin [place] [id number] Globulin Calculated mass conc (S) 3.4 g/dL Normal 1.5-4.5 [facility] Work Phone: Globulin mass conc (S) 3.4 g/dL Normal 1.5-4.5 Co mprehensive Internal Medicine Work Phone: Comment on above: PATIENT NOT FASTINGP ERFORMED BY: CB [facility] Elovae6635 [address] RoadDublin [place] [id number] Glucose mass conc 177 mg/dL Abnormal 65-99 Compreh ensive Internal Medicine Work Phone: Comment on above: PATIENT NOT FASTINGP ERFORMED BY: CB [facility] Zpeqfy4039 [address]Dublin [place] [id number] Potassium molar conc 4.4 mmol/L Normal 3.5-5.2 Comp rehensive Internal Medicine Work Phone: Comment on above: PATIENT NOT FASTINGP ERFORMED BY: CB [facility] Fmmiju7739 [address]Dublin [place] [id number] Protein mass conc 7.8 g/dL Normal 6.0-8.5 Compreh ensive Internal Medicine Work Phone: Comment on above: PATIENT NOT FASTINGP ERFORMED BY: CB [facility] Ekdrak3414 [address]Dublin [place] [id number] Sodium molar conc 139 mmol/L Normal 136-144 Compreh ensive Internal Medicine Work Phone: Comment on above: PATIENT NOT FASTINGP ERFORMED BY: CB [facility] Nkpvze5159 [address]Dublin [place] [id number] Urea nitrogen mass conc 15 mg/dL Normal 8-27 C omprehensive Internal Medicine Work Phone: Comment on above: PATIENT NOT FASTINGP ERFORMED BY: CB [facility] Ltjkch0369 [address]Dublin [place] [id number] Urea nitrogen/Creatinine mass ratio 22 mg/mg Normal 11-26 [facility] Medicine Work Phone: Comment on above: PATIENT NOT FASTINGP ERFORMED BY: ANGELI [facility] Jgyrpi9132 [address] RoadDublin [place] [id number] MICROALBUMINOrdered By: Syst em Steam Fitter on 09-30-2016 Albumin DL <= 20 mg/L mass conc (U) 37.8 ug/mL Normal [facility] Medicine Work Phone: Comment on above: PATIENT NOT FASTINGP ERFORMED BY: ANGELI [facility] Trweck8918 [address] RoadDublin [place] [id number] Albumin/Creatinine mass ratio (U) 44.0 {mg/g_creat} Abnormal 0.0-30.0 [facility] Work Phone: Comment on above: PATIENT NOT FASTINGP ERFORMED BY: ANGELI [facility] Vhuang2419 [address]Dublin [place] [id number] Creatinine mass conc (U) 85.9 mg/dL Normal [facility] Medicine Work Phone: Comment on above: PATIENT NOT FASTINGP ERFORMED BY: ANGELI [facility] Tuqlmm3323 [address]Dublin [place] [id number] TSH (THYROID STIMULATING HOR BARRON) ([id number])Ordered By: Net Programmer on 09-30-2016 Thyrotropin Qn 4.020 {uIU/mL} Normal 0.450-4.50 0 [facility] Work Phone: Comment on above: PATIENT NOT FASTINGP ERFORMED BY: ANGELI [facility] Vvgxos7648 [address]Dublin [place] [id number] URINALYSIS ([id number])Ordered By : Net Programmer on 09-30-2016 Appearance Nom (U) Clear Normal Compre hensive Internal Medicine Work Phone: Comment on above: PATIENT NOT FASTINGP ERFORMED BY: ANGELI [facility] Twvjox2311 [address]Dublin [place] [id number] Bilirubin Ql (U) Negative Normal Comprehe nsive Internal Medicine Work Phone: Comment on above: PATIENT NOT FASTINGP ERFORMED BY: ANGELI [facility] Rtmywf8884 [address]Dublin [place] [id number] Bilirubin Ql (U) Negative Normal Comprehe nsive Internal Medicine Work Phone: Comment on above: PATIENT NOT FASTINGP ERFORMED BY: ANGELI [facility] Rwzwbx7287 [address]Dublin [place] [id number] Color Nom (U) Yellow Normal Comprehensi ve Internal Medicine Work Phone: Comment on above: PATIENT NOT FASTINGP ERFORMED BY: ANGELI [facility] Emkqkk2803 [address]Dublin [place] [id number] Glucose Ql (U) Trace Abnormal Comprehens michael Internal Medicine Work Phone: Comment on above: PATIENT NOT FASTINGP ERFORMED BY: ANGELI [facility] Dtavgi0721 [address]Dublin [place] [id number] Hemoglobin Ql (U) Negative Normal Compreh ensive Internal Medicine Work Phone: Comment on above: PATIENT NOT FASTINGP ERFORMED BY: ANGELI [facility] Pympok6459 [address]Dublin [place] [id number] Hemoglobin Ql (U) Negative Normal Compreh ensive Internal Medicine Work Phone: Comment on above: PATIENT NOT FASTINGP ERFORMED BY: ANGELI [facility] Trmxxb7067 [address]Dublin [place] [id number] Hemoglobin Test strip Ql (U) Negative Normal [facility] Work Phone: Ketones Ql (U) Negative Normal Comprehens michael Internal Medicine Work Phone: Comment on above: PATIENT NOT FASTINGP ERFORMED BY: ANGELI [facility] Aaogrf9949 [address]Dublin [place] [id number] Ketones Ql (U) Negative Normal Comprehens michael Internal Medicine Work Phone: Comment on above: PATIENT NOT FASTINGP ERFORMED BY: CB [facility] Qpzdaf6833 [address]Dublin [place] [id number] Leukocyte esterase Test strip Ql (U) Negative Normal [facility] Work Phone: Comment on above: PATIENT NOT FASTINGP ERFORMED BY: ANGELI [facility] Lwckqi5706 [address]Dublin [place] [id number] Leukocyte esterase Test strip Ql (U) Negative Normal [facility] Work Phone: Comment on above: PATIENT NOT FASTINGP ERFORMED BY: ANGELI LabDajuan WeldonLskout5661 [address] RoadDublin [place] [id number] Microscopic observation LM Nom (Urine sed) MICNIP Normal [facility] Work Phone: Comment on above: Microscopic not negro cated and not performed. PATIENT NOT FASTINGP ERFORMED BY: ANGELI LabDajuan WeldonYaczvl2155 [address] RoadDublin [place] [id number] Nitrite Ql (U) Negative Normal Comprehens michael Internal Medicine Work Phone: Comment on above: PATIENT NOT FASTINGP ERFORMED BY: ANGELI LabComauri WeldonHevaqu9606 [address]Dublin [place] [id number] Nitrite Ql (U) Negative Normal Comprehens michael Internal Medicine Work Phone: Comment on above: PATIENT NOT FASTINGP ERFORMED BY: ANGELI Weldonlin6370 [address]Dublin [place] [id number] Nitrite Test strip Ql (U) Negative Normal [facility] Work Phone: pH (U) 6.0 [pH] Normal 5.0-7.5 [facility] Work Phone: Comment on above: PATIENT NOT FASTINGP ERFORMED BY: ANGELI Weldonlin6370 [address]Dublin [place] [id number] pH Test strip (U) 6.0 [pH] Normal 5.0-7.5 Compreh ensive Internal Medicine Work Phone: Protein Ql (U) Trace Normal Comprehens michael Internal Medicine Work Phone: Comment on above: PATIENT NOT FASTINGP ERFORMED BY: ANGELI [facility] Jckyfm8466 [address]Dublin [place] [id number] Protein Test strip Ql (U) Trace Normal [facility] Work Phone: Specific gravity Relative Density (U) 1.020 1 Normal 1.005-1.03 0 [facility] Work Phone: Comment on above: PATIENT NOT FASTINGP ERFORMED BY: ANGELI LabComauri WeldonIvjcaf9046 [address]Dublin [place] [id number] Urobilinogen (U) [Mass/Vol] 1.0 mg/dL Normal 0.2-1.0 [facility] Work Phone: Comment on above: PATIENT NOT FASTINGP ERFORMED BY: ANGELI DawnComauri CoelloNwddvp1897 [address] Rosasbljimmy [place] [id number] Urobilinogen Test strip mass conc (U) 1.0 mg/dL Normal 0.2-1.0 [facility] Work Phone: Comment on above: PATIENT NOT FASTINGP ERFORMED BY: [facility] Diywmn[address] [facility] [id number] PELVIC (NON )Ordered By: Net Programmer on 08-24-2013 PELVIC (NON ) See Note [...] Ford M.D.August 24, 2013 at 1:44:02 PM [phone] Signed GP/GP If you are the referring physician and would like to consult with theradiologist who provided this interpretation, please contact Radha Graves at [phone]. If this radiologist is unavailable, youwill be directed to another radiologist to assist. If you are a patient with a question regarding this report, pleasecontactyour referring physician directly. Professional Interpretation Provided By: [employer], Phone , These documents contain legally protected [...] size of the right kidney. The right riagcpyuzkvsjh68.3 cm. Normal renal cortex. The right cortex [...] Ford M.D.August 24, 2013 at 1:03:34 PM [phone] Signed GP/GP If you are the referring physician and would like to consult with theradiologist who provided this interpretation, please contact Radha Graves at [phone]. If this radiologist is unavailable, youwill be directed to another radiologist to assist. If you are a patient with a question regarding this report, pleasecontactyour referring physician directly. Professional Interpretation Provided By: [employer], Phone , These documents contain legally protected [...] Liliana CLEMONS,Fernando Nuclear Stress TestOrdered B y: Net Programmer on 08-17-2013 Nuclear Stress Test See Note [...] The patient was injected with 40.5 mCi [id number] Cardiolite and subsequently stress SPECT Cardiolite nuclear [...] Ailyn ROMO by Mavis CLEMONS,Papa on 08/17/13 1732 Sign by: Papa Gamble MD CALCIFEDIOL ([id number])Ordered B y: Net Programmer on 08-15-2013 25-Hydroxyvitamin D2+25-Hydroxyvitamin D3 mass conc 12.0 ng/mL Abnormal 30.0-100.0 [facility] Work Phone: Comment on above: Vitamin D deficiency has been defined by the [place] ofMedicine and an Endocrine Society practice guideline as alevel of serum 25-OH vitamin D less than 20 ng/mL (1,2).The Endocrine Society went on to further define vitamin Dinsufficiency as a level between 21 and 29 ng/mL (2).1. IOM ([place] of Medicine). 2010. Dietary reference intakes for calcium and D. [place]: The National Academies Press.2. Ace MF, Lurdes WELLS, Cynthia COFFMAN, et al. Evaluation, treatment, and prevention of vitamin D deficiency: an Endocrine Society clinical practice guideline. JCEM. 2010; 96(7):1911-30. PATIENT NOT FASTINGP ERFORMED BY: [facility] Tqvgvb7122 [facility] [id number] HEPATIC FUNCTION PANEL ([id number] [id number])Ordered By: Net Programmer on 08-15-2013 Albumin mass conc 4.5 g/dL Normal 3.6-4.8 Compreh ensive Internal Medicine Work Phone: Comment on above: PATIENT NOT FASTINGP ERFORMED BY: ANGELI Isabell Coello[address] [facility] [id number] Information: ADD [id number] AND DRAW FEE 99 6660 ALP [Catalytic activity/Vol] 79 U/L Normal 47-112 [facility] Medicine Work Phone: Comment on above: PATIENT NOT FASTINGP ERFORMED BY: ANGELI LabDajuan Jnsmbp[address] [facility] [id number] Information: ADD [id number] AND DRAW FEE 99 6660 ALP enzyme act/vol 79 [iU]/L Normal 47-112 [facility] Internal Medicine Work Phone: Comment on above: PATIENT NOT FASTINGP ERFORMED BY: ANGELI Isabell Weldonlin6370 [facility] [id number] Information: ADD [id number] AND DRAW FEE 99 6660 ALT [Catalytic activity/Vol] 57 U/L Abnormal 0-32 [facility] Medicine Work Phone: Comment on above: PATIENT NOT FASTINGP ERFORMED BY: ANGELI Iris Kqafss9037 [facility] [id number] Information: ADD [id number] AND DRAW FEE 99 6660 ALT enzyme act/vol 57 [iU]/L Abnormal 0-32 [facility] Internal Medicine Work Phone: Comment on above: PATIENT NOT FASTINGP ERFORMED BY: ANGELI NereydaOsman Enkqkq0022 [facility] [id number] Information: ADD [id number] AND DRAW FEE 99 6660 AST [Catalytic activity/Vol] 39 U/L Normal 0-40 [facility] Work Phone: Comment on above: PATIENT NOT FASTINGP ERFORMED BY: ANGELI Iris Vtcszu6724 [facility] [id number] Information: ADD [id number] AND DRAW FEE 99 6660 AST enzyme act/vol 39 [iU]/L Normal 0-40 [facility] Internal Medicine Work Phone: Comment on above: PATIENT NOT FASTINGP ERFORMED BY: ANGELI [facility] Htrxqk0343 [address] [facility] [place] [id number] Information: ADD [id number] AND DRAW FEE 99 6660 Bilirubin mass conc 0.2 mg/dL Normal 0.0-1.2 Compr ehensive Internal Medicine Work Phone: Comment on above: PATIENT NOT FASTINGP ERFORMED BY: ANGELI [facility] Oevxom[address] [facility] [place] [id number] Information: ADD [id number] AND DRAW FEE 99 6660 Bilirubin.direct mass conc 0.08 mg/dL Normal 0.00-0.40 [facility] Work Phone: Comment on above: PATIENT NOT FASTINGP ERFORMED BY: [facility] Xlzzfy04[address] [facility] [id number] Information: ADD [id number] AND DRAW FEE 99 6660 Protein mass conc 7.3 g/dL Normal 6.0-8.5 Compreh ensive Internal Medicine Work Phone: Comment on above: PATIENT NOT FASTINGP ERFORMED BY: LabCoVirtua MarltonBajfpz6235 [address] [facility] [id number] Information: ADD [id number] AND DRAW FEE 99 6660 HEPATITIS PANEL ([id number])Order ed By: Net Programmer on 08-15-2013 HAV IgM IA Ql Negative Normal Comprehensi ve Internal Medicine Work Phone: Comment on above: PATIENT NOT FASTINGP ERFORMED BY: [facility] Lybwhs[address] [facility] [id number] HAV IgM IA Ql Negative Normal Comprehensi ve Internal Medicine Work Phone: Comment on above: PATIENT NOT FASTINGP ERFORMED BY: [facility] Vbvdha4996 [address] RoadNovant Health Ballantyne Medical Centerin [place] [id number] HBV core IgM IA Ql Negative Normal Compre hensive Internal Medicine Work Phone: Comment on above: PATIENT NOT FASTINGP ERFORMED BY: [facility] Nczznm1207 [address] RoadAt[facility] [id number] HBV core IgM IA Ql Negative Normal Compre hensive Internal Medicine Work Phone: Comment on above: PATIENT NOT FASTINGP ERFORMED BY: [facility]6370 [facility] [id number] HBV surface Ag IA Ql Negative Normal Comp rehensive Internal Medicine Work Phone: Comment on above: PATIENT NOT FASTINGP ERFORMED BY: [facility]6370 [facility] [id number] HBV surface Ag IA Ql Negative Normal Comp rehensive Internal Medicine Work Phone: Comment on above: PATIENT NOT FASTINGP ERFORMED BY: [facility]6370 [facility] [id number] HCV Ab Signal/Cutoff IA [Rel units/Vol] {ratio} Normal 0.0-0.9 [facility] Work Phone: Comment on above: Negative: < 0.8 Inde terminate 0.8 - 0.9 Positive: > 0.9 . In order to reduce the incidence of a false positive result, the CDC recommends that all s/co ratios between 1.0 and 10.9 be confirmed by a more specific supplemental or PCR testing. [facility] offers HCV Ab w/Reflex to Verification test #[id number]. PATIENT NOT FASTINGP ERFORMED BY: [facility]6370 [facility] [id number] HCV Ab Signal/Cutoff IA RelACnc {ratio} Normal 0.0-0.9 [facility] Internal Medicine Work Phone: Comment on above: Negative: < 0.8 Inde terminate 0.8 - 0.9 Positive: > 0.9 . In order to reduce the incidence of a false positive result, the CDC recommends that all s/co ratios between 1.0 and 10.9 be confirmed by a more specific supplemental or PCR testing. [facility] offers HCV Ab w/Reflex to Verification test #[id number]. PATIENT NOT FASTINGP ERFORMED BY: [facility]6370 [facility] [id number] T3, FREE (TRIDOTHYRONINE) (9 7744)Ordered By: Net Programmer on 08-15-2013 T3 free mass conc 2.8 pg/mL Normal 2.0-4.4 Compreh ensive Internal Medicine Work Phone: Comment on above: PATIENT NOT FASTINGP ERFORMED BY: [facility]6370 [facility] [id number] T4, FREE (THYROXINE) (28272) Ordered By: Net Programmer on 08-15-2013 T4 free mass conc 0.80 ng/dL Abnormal 0.82-1.77 Compreh ensive Internal Medicine Work Phone: Comment on above: PATIENT NOT FASTINGP ERFORMED BY: [facility]6370 [facility] [id number] TSH (THYROID STIMULATING HOR BARRON) ([id number])Ordered By: Net Programmer on 08-15-2013 Thyrotropin Qn 6.740 {uIU/mL} Abnormal 0.450-4.50 0 [facility] Work Phone: Comment on above: PATIENT NOT FASTINGP ERFORMED BY: [facility]6370 [facility] [id number] CBC, Platelets & Auto Diff ( [id number])Ordered By: Net Programmer on 08-07-2013 Basophils #/vol (Bld) 0.0 {x10E3/uL} Normal 0.0-0.2 [facility] Work Phone: Comment on above: PATIENT WAS FASTINGP ERFORMED BY: [facility]6370 [facility] [id number] Information: [id number] Basophils (Bld) [#/Vol] 0.0 10*3/uL Normal 0.0-0.2 [facility] Work Phone: Comment on above: PATIENT WAS FASTINGP ERFORMED BY: [facility]6370 [facility] [id number] Information: [id number] Basophils Auto #/vol (Bld) 0.0 {x10E3/uL} Normal 0.0-0.2 [facility] Work Phone: Basophils/100 WBC (Bld) 1 % Normal 0-3 C omprehensive Internal Medicine Work Phone: Comment on above: PATIENT WAS FASTINGP ERFORMED BY: [facility]6370 [facility] [id number] Information: [id number] Basophils/100 WBC Auto (Bld) 1 % Normal 0-3 [facility] Work Phone: Eosinophils #/vol (Bld) 0.3 {x10E3/uL} Normal 0.0-0.4 [facility] Work Phone: Comment on above: Please note refere nce interval change PATIENT WAS FASTINGP ERFORMED BY: [place] 3847370 [facility] [id number] Information: [id number] Eosinophils (Bld) [#/Vol] 0.3 10*3/uL Normal 0.0-0.4 [facility] Work Phone: Comment on above: Please note refere nce interval change PATIENT WAS FASTINGP ERFORMED BY: [place] 3847370 [facility] [id number] Information: [id number] Eosinophils Auto #/vol (Bld) 0.3 {x10E3/uL} Normal 0.0-0.4 [facility] Work Phone: Comment on above: Please note refere nce interval change Eosinophils/100 WBC (Bld) 4 % Normal 0-5 [facility] Work Phone: Comment on above: Please note refere nce interval change PATIENT WAS FASTINGP ERFORMED BY: [place] 3847370 [facility] [id number] Information: [id number] Eosinophils/100 WBC Auto (Bld) 4 % Normal 0-5 [facility] Work Phone: Comment on above: Please note refere nce interval change Erythrocyte distribution width Auto Ratio (RBC) 14.1 % Normal 12.3-15.4 [facility] Work Phone: Erythrocyte distribution width Ratio (RBC) 14.1 % Normal 12.3-15.4 [facility] Work Phone: Comment on above: PATIENT WAS FASTINGP ERFORMED BY: ANGELI [address] [id number] Information: [id number] Hematocrit Auto Volume Fraction (Bld) 41.7 % Normal 34.0-46.6 [facility] Work Phone: Hematocrit Volume Fraction (Bld) 41.7 % Normal 34.0-46.6 [facility] Work Phone: Comment on above: PATIENT WAS FASTINGP ERFORMED BY: [address] [id number] Information: [id number] Hemoglobin mass conc (Bld) 13.6 g/dL Normal 11.1-15.9 [facility] Work Phone: Comment on above: PATIENT WAS FASTINGP ERFORMED BY: [address] [id number] Information: [id number] Immature granulocytes #/vol (Bld) 0.0 {x10E3/uL} Normal 0.0-0.1 [facility] Work Phone: Comment on above: PATIENT WAS FASTINGP ERFORMED BY: [address] [id number] Information: [id number] Immature granulocytes (Bld) [#/Vol] 0.0 10*3/uL Normal 0.0-0.1 [facility] Work Phone: Comment on above: PATIENT WAS FASTINGP ERFORMED BY: [address] [id number] Information: [id number] Immature granulocytes/100 WBC (Bld) 0 % Normal 0-2 [facility] Work Phone: Comment on above: PATIENT WAS FASTINGP ERFORMED BY: [address]Dublin [place] [id number] Information: [id number] Lymphocytes #/vol (Bld) 3.2 {x10E3/uL} Abnormal 0.7-3.1 [facility] Work Phone: Comment on above: Please note refere nce interval change PATIENT WAS FASTINGP ERFORMED BY: [place] [id number] [facility] [id number] Information: [id number] Lymphocytes (Bld) [#/Vol] 3.2 10*3/uL Abnormal 0.7-3.1 [facility] Work Phone: Comment on above: Please note refere nce interval change PATIENT WAS FASTINGP ERFORMED BY: ANGELI [place] [id number] [facility] [id number] Information: [id number] Lymphocytes Auto #/vol (Bld) 3.2 {x10E3/uL} Abnormal 0.7-3.1 [facility] Work Phone: Comment on above: Please note refere nce interval change Lymphocytes/100 WBC (Bld) 44 % Normal 14-46 [facility] Work Phone: Comment on above: Please note refere nce interval change PATIENT WAS FASTINGP ERFORMED BY: [place] [id number] [facility] [id number] Information: [id number] Lymphocytes/100 WBC Auto (Bld) 44 % Normal 14-46 [facility] Work Phone: Comment on above: Please note refere nce interval change MCH Auto Entitic mass (RBC) 29.1 pg Normal 26.6-33.0 [facility] Work Phone: MCH Entitic mass (RBC) 29.1 pg Normal 26.6-33.0 [facility] Medicine Work Phone: Comment on above: PATIENT WAS FASTINGP ERFORMED BY: [place] [id number] [facility] [id number] Information: [id number] MCHC Auto mass conc (RBC) 32.6 g/dL Normal 31.5-35.7 [facility] Work Phone: MCHC mass conc (RBC) 32.6 g/dL Normal 31.5-35.[address] [facility] Work Phone: Comment on above: PATIENT WAS FASTINGP ERFORMED BY: [address] [id number] Information: [id number] MCV Auto Entitic volume (RBC) 89 fL Normal 79-97 [facility] Work Phone: MCV Entitic volume (RBC) 89 fL Normal 79-97 [facility] Work Phone: Comment on above: PATIENT WAS FASTINGP ERFORMED BY: [address] [id number] Information: [id number] Monocytes #/vol (Bld) 0.7 {x10E3/uL} Normal 0.1-0.9 [facility] Work Phone: Comment on above: Please note refere nce interval change PATIENT WAS FASTINGP ERFORMED BY: [address] [id number] Information: [id number] Monocytes (Bld) [#/Vol] 0.7 10*3/uL Normal 0.1-0.9 [facility] Work Phone: Comment on above: Please note refere nce interval change PATIENT WAS FASTINGP ERFORMED BY: [place] [id number] [facility] [id number] Information: [id number] Monocytes Auto #/vol (Bld) 0.7 {x10E3/uL} Normal 0.1-0.9 [facility] Work Phone: Comment on above: Please note refere nce interval change Monocytes/100 WBC (Bld) 10 % Normal 4-12 [facility] Work Phone: Comment on above: Please note refere nce interval change PATIENT WAS FASTINGP ERFORMED BY: [facility] Kzquno0060 [facility] [id number] Information: [id number] Monocytes/100 WBC Auto (Bld) 10 % Normal 4-12 [facility] Work Phone: Comment on above: Please note refere nce interval change Neutrophils #/vol (Bld) 2.9 {x10E3/uL} Normal 1.4-7.0 [facility] Work Phone: Comment on above: Please note refere nce interval change PATIENT WAS FASTINGP ERFORMED BY: LabDonald Ville [id number] [facility] [id number] Information: [id number] Neutrophils (Bld) [#/Vol] 2.9 10*3/uL Normal 1.4-7.0 [facility] Work Phone: Comment on above: Please note refere nce interval change PATIENT WAS FASTINGP ERFORMED BY: LabCoVirtua MarltonOqlzfb5954 [facility] [id number] Information: [id number] Neutrophils Auto #/vol (Bld) 2.9 {x10E3/uL} Normal 1.4-7.0 [facility] Work Phone: Comment on above: Please note refere nce interval change Neutrophils/100 WBC (Bld) 41 % Normal 40-74 [facility] Work Phone: Comment on above: Please note refere nce interval change PATIENT WAS FASTINGP ERFORMED BY: [facility] Yzcjdv3651 [facility] [id number] Information: [id number] Neutrophils/100 WBC Auto (Bld) 41 % Normal 40-74 [facility] Work Phone: Comment on above: Please note refere nce interval change Platelets #/vol (Bld) 187 {x10E3/uL} Normal 155-379 [facility] Internal Medicine Work Phone: Comment on above: Please note refere nce interval change PATIENT WAS FASTINGP ERFORMED BY: [place] [id number] [facility] [id number] Information: [id number] Platelets (Bld) [#/Vol] 187 10*3/uL Normal 155-379 [facility] Internal Medicine Work Phone: Comment on above: Please note refere nce interval change PATIENT WAS FASTINGP ERFORMED BY: [address] [id number] Information: [id number] Platelets Auto #/vol (Bld) 187 {x10E3/uL} Normal 155-379 [facility] Internal Medicine Work Phone: Comment on above: Please note refere nce interval change RBC #/vol (Bld) 4.68 {x10E6/uL} Normal 3.77-5.28 [facility] Internal Medicine Work Phone: Comment on above: PATIENT WAS FASTINGP ERFORMED BY: [place] [id number] [facility] [id number] Information: [id number] RBC (Bld) [#/Vol] 4.68 10*6/uL Normal 3.77-5.28 [facility] Internal Medicine Work Phone: Comment on above: PATIENT WAS FASTINGP ERFORMED BY: [place] [id number] [facility] [id number] Information: [id number] RBC Auto #/vol (Bld) 4.68 {x10E6/uL} Normal 3.77-5.28 [facility] Internal Medicine Work Phone: WBC #/vol (Bld) 7.1 {x10E3/uL} Normal 3.4-10.8 [facility] Internal Medicine Work Phone: Comment on above: Please note refere nce interval change PATIENT WAS FASTINGP ERFORMED BY: ANGELI [facility] [place] [facility] [id number] Information: [id number] WBC (Bld) [#/Vol] 7.1 10*3/uL Normal 3.4-10.8 [facility] Work Phone: Comment on above: Please note refere nce interval change PATIENT WAS FASTINGP ERFORMED BY: ANGELI [facility] Tifoln[address] IDYIA InnovationsAt[facility] [id number] Information: [id number] WBC Auto #/vol (Bld) 7.1 {x10E3/uL} Normal 3.4-10.8 [facility] Work Phone: Comment on above: Please note refere nce interval change DDIMQOrdered By: Natalya merino on 08-07-2013 DDIMQ 0.46 {FEUug/mL} Normal 0.22-0.48 [facility] Internal Medicine Work Phone: Comment on above: NORMAL D-Dimer level indicates no DVT or PE. HgA1C , Office ([id number])Ordere d By: Melonie Lanza on 08-07-2013 Hemoglobin A1c/Hemoglobin.total mass fraction (Bld) 6.4 % Normal 4.6 - 7.1 Comprehensiv e Internal Medicine Work Phone: Lipid Panel ([id number])Ordered B y: Net Programmer on 08-07-2013 Cholesterol in HDL mass conc 56 mg/dL Normal [facility] Work Phone: Comment on above: According to ATP-III Guidelines, HDL-C >59 mg/dL is considered anegative risk factor for CHD. PATIENT WAS FASTINGP ERFORMED BY: [facility] Qcgtgl9202 [facility] [id number] Cholesterol in LDL mass conc 206 mg/dL Abnormal 0-99 [facility] Work Phone: Comment on above: PATIENT WAS FASTINGP ERFORMED BY: ANGELI LabComauri Hdbmao8086 Mc[address]hee RoadDublin [place] [id number] Cholesterol in LDL/Cholesterol in HDL mass ratio 3.7 {ratio_units} Abnormal 0.0-3.2 [facility] Work Phone: Comment on above: PATIENT WAS FASTINGP ERFORMED BY: ANGELI LabComauri Acpiqx1206 [address] RoadDublin [place] [id number] Cholesterol in VLDL mass conc 24 mg/dL Normal 5-40 [facility] Work Phone: Comment on above: PATIENT WAS FASTINGP ERFORMED BY: ANGELI LabComauri WeldonUoxgmr3621 Mc[address]hee RoadDublin [place] [id number] Cholesterol mass conc 286 mg/dL Abnormal 100-199 Com prehensive Internal Medicine Work Phone: Comment on above: PATIENT WAS FASTINGP ERFORMED BY: ANGELI LabDajuan WeldonVbcpkl9886 Mcghee Roadblin [place] [id number] Triglyceride mass conc 118 mg/dL Normal 0-149 [facility]erens[facility] Work Phone: Comment on above: PATIENT WAS FASTINGP ERFORMED BY: ANGELI LabDajuan WeldonLzdwcv7856 [address] [facility]bl[facility] [place] [id number] Metabolic Panel, Comprehensi ve ([id number])Ordered By: Net Programmer on 08-07-2013 Albumin mass conc 4.5 g/dL Normal 3.6-4.8 Compreh ensive Internal Medicine Work Phone: Comment on above: PATIENT WAS FASTINGP ERFORMED BY: ANGELI LabComauri Zuvvqv8682 [address] RoadDublin [place] [id number] Albumin/Globulin mass ratio 1.5 {ratio} Normal 1.1-2.5 [facility] Work Phone: Comment on above: PATIENT WAS FASTINGP ERFORMED BY: ANGELI LabDajuan Pioajq1755 Mc[address]hee RoadDublin [place] [id number] ALP [Catalytic activity/Vol] 79 U/L Normal 47-112 [facility] Work Phone: Comment on above: PATIENT WAS FASTINGP ERFORMED BY: ANGELI [facility] Lqcmru9602 [address] RoadDublin [place] [id number] ALP enzyme act/vol 79 [iU]/L Normal 47-112 [facility] Work Phone: Comment on above: PATIENT WAS FASTINGP ERFORMED BY: ANGELI [facility] Uqbkwj0638 [address] RoadDublin [place] [id number] ALT [Catalytic activity/Vol] 81 U/L Abnormal 0-32 [facility] Internal Medicine Work Phone: Comment on above: PATIENT WAS FASTINGP ERFORMED BY: ANGELI [facility] Djvsxk4867 [address] RoadDublin [place] [id number] ALT enzyme act/vol 81 [iU]/L Abnormal 0-32 [facility] Work Phone: Comment on above: PATIENT WAS FASTINGP ERFORMED BY: ANGELI [facility] Ylkxum4495 [address] RoadDublin [place] [id number] AST [Catalytic activity/Vol] 65 U/L Abnormal 0-40 [facility] Internal Medicine Work Phone: Comment on above: PATIENT WAS FASTINGP ERFORMED BY: ANGELI [facility] Rvzipi0127 [address] RoadDublin [place] [id number] AST enzyme act/vol 65 [iU]/L Abnormal 0-40 [facility] Internal [facility] Work Phone: Comment on above: PATIENT WAS FASTINGP ERFORMED BY: ANGELI [facility] Bshbua8138 [address] RoadDublin [place] [id number] Bilirubin mass conc 0.3 mg/dL Normal 0.0-1.2 [facility] Internal Medicine Work Phone: Comment on above: PATIENT WAS FASTINGP ERFORMED BY: ANGELI [facility] Cayvfx0946 [address] RoadDublin [place] [id number] Calcium mass conc 10.0 mg/dL Normal 8.6-10.2 [facility] Internal Medicine Work Phone: Comment on above: PATIENT WAS FASTINGP ERFORMED BY: ANGELI [facility] Dgdywo3733 [address] RoadDublin [place] [id number] Chloride molar conc 105 mmol/L Normal 97-108 Compr ehensive Internal Medicine Work Phone: Comment on above: PATIENT WAS FASTINGP ERFORMED BY: ANGELI [facility] Hpmstb3656 [address] [facility] [place] [id number] CO2 molar conc 24 mmol/L Normal 19-28 Comprehens michael Internal Medicine Work Phone: Comment on above: PATIENT WAS FASTINGP ERFORMED BY: ANGELI [facility] Mdubuh[address] [facility] [id number] Creatinine mass conc 0.68 mg/dL Normal 0.57-1.00 [facility] Work Phone: Comment on above: PATIENT WAS FASTINGP ERFORMED BY: ANGELI [facility] Nrtrjq8019 [address] [facility] [id number] GFR/1.73 sq M predicted among blacks CKD-EPI vol rate/area (S/P/Bld) 104 mL/min/1.73 Normal Comprehe nsive Internal Medicine Work Phone: Comment on above: PATIENT WAS FASTINGP ERFORMED BY: ANGELI [facility] Dumnxl5423 [address] [facility] [id number] GFR/1.73 sq M predicted among non-blacks CKD-EPI vol rate/area (S/P/Bld) 90 mL/min/1.73 Normal [facility] Work Phone: Comment on above: PATIENT WAS FASTINGP ERFORMED BY: ANGELI [facility] Biayvd8089 [facility] [id number] Globulin Calculated mass conc (S) 3.0 g/dL Normal 1.5-4.5 [facility] Work Phone: Globulin mass conc (S) 3.0 g/dL Normal 1.5-4.5 [facility] Work Phone: Comment on above: PATIENT WAS FASTINGP ERFORMED BY: ANGELI [facility] Kfqxpe8531 [address] [facility] [place] [id number] Glucose mass conc 82 mg/dL Normal 65-99 Compreh ensive Internal Medicine Work Phone: Comment on above: PATIENT WAS FASTINGP ERFORMED BY: ANGELI [facility] Jqsznj7535 [address] RoadDublin [place] [id number] Potassium molar conc 4.9 mmol/L Normal 3.5-5.2 Comp rehensive Internal Medicine Work Phone: Comment on above: PATIENT WAS FASTINGP ERFORMED BY: ANGELI [facility] Rbvvke4913 [address]blin [place] [id number] Protein mass conc 7.5 g/dL Normal 6.0-8.5 Compreh ensive Internal Medicine Work Phone: Comment on above: PATIENT WAS FASTINGP ERFORMED BY: ANGELI [facility] Gmarch3013 [address] RoadDublin [place] [id number] Sodium molar conc 143 mmol/L Normal 134-144 Compreh ensive Internal Medicine Work Phone: Comment on above: PATIENT WAS FASTINGP ERFORMED BY: ANGELI [facility] Qzxxox7400 [address] RoadNovant Health Ballantyne Medical Centerin [place] [id number] Urea nitrogen mass conc 12 mg/dL Normal 8-27 C omprehensive Internal Medicine Work Phone: Comment on above: PATIENT WAS FASTINGP ERFORMED BY: ANGELI [facility] Qnhago1789 [address] RoadDublin [place] [id number] Urea nitrogen/Creatinine mass ratio 18 mg/mg Normal 11-26 [facility] Work Phone: Comment on above: PATIENT WAS FASTINGP ERFORMED BY: ANGELI [facility] Iukiwj[address] [facility]in [place] [id number] TSH ([id number])Ordered By: Eb Arauz on 08-07-2013 Thyrotropin Qn 6.980 {uIU/mL} Abnormal 0.450-4.50 0 [facility] Work Phone: Comment on above: PATIENT WAS FASTINGP ERFORMED BY: ANGELI [facility] Dmocuv2100 [address]Dublin [place] [id number] Urinalysis, Office ([id number])Or dered By: Federica Olivarez on 08-07-2013 Bilirubin [...] 12:51-0400 Body temperature 98.3 [degF] Karen Lewisam TELEVISION SERVICE ENGINEER-C Work Phone: [facility] 05-31-2025 12:51-0400 Diastolic blood pressure 61 mm[Hg] Karen Lewisam TELEVISION SERVICE ENGINEER-C Work Phone: [facility] 05-31-2025 12:51-0400 Heart rate 85 /min Karen Lewisam TELEVISION SERVICE ENGINEER-C Work Phone: [facility] 05-31-2025 12:51-0400 Respiratory rate 16 /min Karen Lewisam TELEVISION SERVICE ENGINEER-C Work Phone: [facility] 05-31-2025 12:51-0400 SaO2% (BldA) [Mass fraction] 97 % Karen Alcazar TELEVISION SERVICE ENGINEER-C Work Phone: [facility] 05-31-2025 12:51-0400 Systolic blood pressure 149 mm[Hg] Karen Lewisam TELEVISION SERVICE ENGINEER-C Work Phone: [facility] 05-31-2025 10:10-0400 Body height 152.4 cm Karen Lewisam TELEVISION SERVICE ENGINEER-C Work Phone: [facility] 05-31-2025 10:10-0400 Body mass index (BMI) [Ratio] 32.8 kg/m2 Karen Ottoniel TELEVISION SERVICE ENGINEER-C Work Phone: [facility] 05-31-2025 10:10-0400 Body weight 76.3 kg Karen Lewisam TELEVISION SERVICE ENGINEER-C Work Phone: [facility] 07-20-2023 11:08-0400 Body height 149.86 cm Flavia [...] Diastolic blood pressure 80 mm[Hg] Latrice Slarb DIESEL PILE HAMMER OPERATOR [facility]; [facility] Work Phone: 01-19-2023 09:49-0500 Heart rate 77 /min Latrice Slarb DIESEL PILE HAMMER OPERATOR [facility]; [facility] Work Phone: 01-19-2023 09:49-0500 Respiratory rate 16 /min Latrice Slarb DIESEL PILE HAMMER OPERATOR [facility]; [facility] Work Phone: 01-19-2023 09:49-0500 SaO2% (BldA) [Mass fraction] 96 % Latrice Slarb DIESEL PILE HAMMER OPERATOR [facility]; [facility] Work Phone: 01-19-2023 09:49-0500 Systolic blood pressure 118 mm[Hg] Latrice Slarb DIESEL PILE HAMMER OPERATOR [facility]; [facility] Work Phone: 09-22-2022 08:57-0400 Body height 149.86 cm Latrice Slarb DIESEL PILE HAMMER OPERATOR [facility]; [facility] Work Phone: 09-22-2022 08:57-0400 Body mass index (BMI) [Ratio] 32.92 kg/m2 Latrice Slarb DIESEL PILE HAMMER OPERATOR [facility]; [facility] Work Phone: 09-22-2022 08:57-0400 Body surface area Derived from formula 1.69 m2 Latrice Slarb DIESEL PILE HAMMER OPERATOR [facility]; [facility] Work Phone: 09-22-2022 08:57-0400 Body temperature 96.4 [degF] Latrice Slarb DIESEL PILE HAMMER OPERATOR [facility]; [facility] Work Phone: 09-22-2022 08:57-0400 Body weight 73.94 kg Latrice Slarb DIESEL PILE HAMMER OPERATOR [facility]; [facility] Work Phone: 09-22-2022 08:57-0400 Diastolic blood pressure 78 mm[Hg] Latrice Slarb DIESEL PILE HAMMER OPERATOR [facility]; [facility] Work Phone: 09-22-2022 08:57-0400 Heart rate 74 /min Latrice Slarb DIESEL PILE HAMMER OPERATOR [facility]; [facility] Work Phone: 09-22-2022 08:57-0400 Respiratory rate 17 /min Latrice Levy LPN [facility]; [facility] Work Phone: 09-22-2022 08:57-0400 SaO2% (BldA) [Mass fraction] 97 % Latrice Levy DIESEL PILE HAMMER OPERATOR [facility]; [facility] Work Phone: 09-22-2022 08:57-0400 Systolic blood pressure 126 mm[Hg] Latrice Levy DIESEL PILE HAMMER OPERATOR [facility]; [facility] Work Phone: 08-12-2022 14:00-0400 Body height 149.86 cm Nellie Knox DIESEL PILE HAMMER OPERATOR [facility]; [facility] Work Phone: Comment on above: virtual, none reported 08-12-2022 14:00-0400 Body mass index (BMI) [Ratio] 33.02 kg/m2 Nellie Knox [facility]; [facility] Work Phone: Comment on above: virtual, none reported 08-12-2022 14:00-0400 Body surface area Derived from formula 1.69 m2 Nelile Knox DIESEL PILE HAMMER OPERATOR [facility]; [facility] Work Phone: Comment on above: virtual, none reported 08-12-2022 14:00-0400 Body weight 74.16 kg Nellie Knox DIESEL PILE HAMMER OPERATOR [facility]; [facility] Work Phone: Comment on above: virtual, none reported 07-07-2022 10:48-0400 Body height 149.86 cm Karen Alcazar ANALYTICS ANALYST Work Phone: [facility]; [facility] Work Phone: Comment on above: pt did not report 07-07-2022 10:48-0400 Body mass index (BMI) [Ratio] 33.02 kg/m2 Karen Alcazar ANALYTICS ANALYST Work Phone: [facility]; [facility] Work Phone: Comment on above: pt did not report 07-07-2022 10:48-0400 Body surface area Derived from formula 1.69 m2 Karen Alcazar ANALYTICS ANALYST Work Phone: [facility]; [facility] Work Phone: Comment on above: pt did not report 07-07-2022 10:48-0400 Body temperature 97.8 [degF] Karen Alcazar ANALYTICS ANALYST Work Phone: [facility]; [facility] Work Phone: Comment on above: pt did not report 07-07-2022 10:48-0400 Body weight 74.16 kg Karen Alcazar ANALYTICS ANALYST Work Phone: [facility]; [facility] [...] 13:31-0400 Body height 149.86 cm Federica Olivarez [facility]; [facility] Work Phone: 02-27-2022 13:31-0400 Body mass index (BMI) [Ratio] 33.63 kg/m2 Federica Olivarez [facility]; [facility] Work Phone: 02-27-2022 13:31-0400 Body surface area Derived from formula 1.71 m2 Federica Olivarez [facility]; [facility] Work Phone: 02-27-2022 13:31-0400 Body temperature 97 [degF] Federica Olivarez [facility]; [facility] Work Phone: Comment on above: Method: Thermal Scan 02-27-2022 13:31-0400 Body weight 75.52 kg Federica Olivarez [facility]; [facility] Work Phone: 02-27-2022 13:31-0400 Diastolic blood pressure 78 mm[Hg] Federica Olivarez [facility]; [facility] Work Phone: Comment on above: Patient Position: Sitting; Cuff Location : Left Arm; Cuff Size: Standard 02-27-2022 13:31-0400 Heart rate 77 /min Federica Olivarez [facility]; [facility] Work Phone: Comment on above: Pattern: Regular 02-27-2022 13:31-0400 Respiratory rate 16 /min Federica Olivarez [facility]; [facility] Work Phone: Comment on above: Pattern: Unlabored 02-27-2022 13:31-0400 SaO2% (BldA) [Mass fraction] 97 % Federica Olivarez [facility]; [facility] Work Phone: Comment on above: Room air 02-27-2022 13:31-0400 Systolic blood pressure 116 mm[Hg] Federica Olivarez [facility]; [facility] Work Phone: Comment on above: Patient Position: Sitting; Cuff Location : Left Arm; Cuff Size: Standard 11-18-2021 09:32-0500 Body height 149.86 cm Latrice Slaroya ANTON [facility]; [facility] Work Phone: 11-18-2021 09:32-0500 Body mass index (BMI) [Ratio] 33.12 kg/m2 Latrice Cam [facility]; [facility] Work [...] Diastolic blood pressure 78 mm[Hg] Latrice Slarb DIESEL PILE HAMMER OPERATOR [facility]; [facility] Work [...] (Body Mass Index) 34.34 kg/m2 Federica Hallvimalbrenda [facility]; [facility] Work Phone: 02-24-2021 10:54-0400 Body Temperature 96.4 [degF] Federica Hallvimalbrenda [facility]; [facility] Work Phone: Comment on above: Method: Thermal Scan 02-24-2021 10:54-0400 Body weight 77.11 kg Federica Olivarez [facility]; [facility] Work Phone: 02-24-2021 10:54-0400 BP Diastolic 70 mm[Hg] Federica Olivarez [facility]; [facility] Work Phone: Comment on above: Patient Position: Sitting; Cuff Location : Left Arm; Cuff Size: Standard 02-24-2021 10:54-0400 BP Systolic 132 mm[Hg] Federica Olivarez [facility]; [facility] Work Phone: Comment on above: Patient Position: Sitting; Cuff Location : Left Arm; Cuff Size: Standard 02-24-2021 10:54-0400 BSA (Body Surface Area) 1.72 m2 Federica Olivarez [facility]; [facility] Work Phone: 02-24-2021 10:54-0400 Height 149.86 cm Federica Olivarez [facility]; [facility] Work Phone: 02-24-2021 10:54-0400 Pulse (Heart Rate) 78 /min Federica Olivarez [facility]; [facility] Work Phone: Comment on above: Pattern: Regular 02-24-2021 10:54-0400 Pulse Oximetry 98 % Marcia Walker [facility] Internal Medicine; [facility] Work Phone: Comment on above: Room air 02-24-2021 10:54-0400 Respiratory Rate 16 /min Federica Hallvimalbrenda [facility] Internal Medicine; [facility] Work Phone: Comment on above: Pattern: Unlabored 02-24-2021 10:54-0400 SaO2% (BldA) [Mass fraction] 98 % Federica Hallvimalbrenda [facility]; [facility] Work Phone: Comment on above: Room air 06-10-2020 07:57-0400 BMI (Body Mass Index) 34.34 kg/m2 Haseeb Brizuela LPN [facility] Internal Medicine Work Phone: 06-10-2020 07:57-0400 Body Temperature 97.1 [degF] Haseeb Brizuela LPN [facility] Internal Medicine Work Phone: Comment on above: Method: Infrared 06-10-2020 07:57-0400 Body weight 77.11 kg Haseeb Brizuela LPN [facility] Internal Medicine Work Phone: 06-10-2020 07:57-0400 BP Diastolic 76 mm[Hg] Haseeb Brizuela LPN [facility] Internal Medicine Work Phone: Comment on above: Patient Position: Sitting; Cuff Location : Left Arm; Cuff Size: Standard 06-10-2020 07:57-0400 BP Systolic 120 mm[Hg] Haseeb Brizuela LPN [facility] Internal Medicine Work Phone: Comment on above: Patient Position: Sitting; Cuff Location : Left Arm; Cuff Size: Standard 06-10-2020 07:57-0400 BSA (Body Surface Area) 1.72 m2 Haseeb Brizuela LPN [facility] Internal Medicine Work Phone: 06-10-2020 07:57-0400 Height 149.86 cm Haseeb Brizuela LPN [facility] Internal Medicine Work Phone: 06-10-2020 07:57-0400 Pulse (Heart Rate) 74 /min Haseeb Brizuela LPN [facility] Work Phone: Comment on above: Pattern: Regular 06-10-2020 07:57-0400 Pulse Oximetry 95 % Marcia Aaron [facility] Internal Medicine Work Phone: Comment on above: Room air 06-10-2020 07:57-0400 Respiratory Rate 16 /min Haseeb Brizuela LPN [facility] Internal Medicine Work Phone: Comment on above: Pattern: Unlabored 06-10-2020 07:57-0400 SaO2% (BldA) [Mass fraction] 95 % Haseeb Brizuela LPN [facility] Internal Medicine Work Phone: Comment on above: Room air 02-23-2020 06:45-0400 BMI (Body Mass Index) 34.84 kg/m2 Haseeb Brizuela LPN [facility] Work Phone: 02-23-2020 06:45-0400 Body weight 78.25 kg Haseeb Brizuela LPN [facility] Internal Medicine Work Phone: 02-23-2020 06:45-0400 BSA (Body Surface Area) 1.73 m2 Haseeb Brizuela LPN [facility] Internal Medicine Work Phone: 02-23-2020 06:45-0400 Height 149.86 cm Haseeb Brizuela LPN [facility] Internal Medicine Work Phone: 02-21-2020 12:14-0400 BMI (Body Mass Index) 34.84 kg/m2 Marcia Walker ANALYTICS ANALYST Work Phone: [facility] Work Phone: Comment on above: will report temp when [facility] calls 02-21-2020 12:14-0400 Body Temperature 98 [degF] Marcia Walker ANALYTICS ANALYST Work Phone: [facility] Work Phone: Comment on above: will report temp when [facility] calls 02-21-2020 12:14-0400 Body weight 78.25 kg Marcia Walker ANALYTICS ANALYST Work Phone: [facility] Work Phone: Comment on above: will report temp when [facility] calls 02-21-2020 12:14-0400 BP Diastolic 61 mm[Hg] Marcia Meiera ANALYTICS ANALYST Work Phone: [facility] Work Phone: Comment on above: Patient Position: Supine; Cuff Location: Right Arm; Cuff Size: Standard will report temp whe n [facility] calls 02-21-2020 12:14-0400 BP Systolic 124 mm[Hg] Marcia Meiera ANALYTICS ANALYST Work Phone: [facility] Work Phone: Comment on above: Patient Position: Supine; Cuff Location: Right Arm; Cuff Size: Standard will report temp whe n [facility] calls 02-21-2020 12:14-0400 BSA (Body Surface Area) 1.73 m2 Marcia Meiera ANALYTICS ANALYST Work Phone: [facility] Work Phone: Comment on above: will report temp when [facility] calls 02-21-2020 12:14-0400 Height 149.86 cm Marcia Meiera ANALYTICS ANALYST Work Phone: [facility] Work Phone: Comment on above: will report temp when [facility] calls 02-21-2020 12:14-0400 Pulse (Heart Rate) 75 /min Marcia Meiera ANALYTICS ANALYST Work Phone: [facility] Work Phone: Comment on above: Pattern: Regular will report temp whe n [facility] calls 02-16-2020 07:40-0400 BMI (Body Mass Index) 34.84 kg/m2 Haseeb Brizuela LPN [facility] Internal Medicine Work Phone: 02-16-2020 07:40-0400 Body [...] Body Temperature 97.1 [degF] Nellie Knox LPN [facility] Internal Medicine Work Phone: Comment on above: Method: Temporal 11-06-2019 09:46-0500 Body weight 78.25 kg Nellie Knox LPN [facility] Internal Medicine Work Phone: 11-06-2019 09:46-0500 BP Diastolic 78 mm[Hg] Nellie Knox LPN [facility] Internal Medicine Work Phone: Comment on above: Patient Position: Sitting; Cuff Location : Left Arm; Cuff Size: Standard 11-06-2019 09:46-0500 BP Systolic 120 mm[Hg] Nellie Knox LPN [facility] Internal Medicine Work Phone: Comment on above: Patient Position: Sitting; Cuff Location : Left Arm; Cuff Size: Standard 11-06-2019 09:46-0500 BSA (Body Surface Area) 1.73 m2 Nellie Knox LPN [facility] Work Phone: 11-06-2019 09:46-0500 Height 149.86 cm Nellie Knox LPN [facility] Internal Medicine Work Phone: 11-06-2019 09:46-0500 Pulse (Heart Rate) 88 /min Nellie Knox LPN [facility] Work Phone: Comment on above: Pattern: Regular 11-06-2019 09:46-0500 Pulse Oximetry 93 % Marcia Walker [facility] Internal Medicine Work Phone: Comment on above: Room air 11-06-2019 09:46-0500 Respiratory Rate 16 /min Nellie Knox LPN [facility] Internal Medicine Work Phone: Comment on above: Pattern: Unlabored 11-06-2019 09:46-0500 SaO2% (BldA) [Mass fraction] 93 % Nellie Knox LPN [facility] Internal Medicine Work Phone: Comment on above: Room air 11-06-2019 08:21-0500 BMI (Body Mass Index) 33.94 kg/m2 Haseeb Brizuela SLOANE [facility] Work Phone: 11-06-2019 08:21-0500 Body weight 76.22 kg Haseeb Brizuela SLOANE [facility] Work Phone: 11-06-2019 08:21-0500 BSA (Body Surface Area) 1.71 m2 Haseeb Brizuela SLOANE [facility] Internal Medicine Work Phone: 11-06-2019 08:21-0500 Height 149.86 cm Haseeb Gelacio ANTON [facility] Work Phone: 08-28-2019 15:07-0400 BMI (Body Mass Index) 33.94 kg/m2 Haseeb Brizuela SLOANE [facility] Work Phone: 08-28-2019 15:07-0400 Body Temperature 97.9 [degF] Haseeb Brizuela SLOANE [facility] Internal Medicine Work Phone: Comment on above: Method: Temporal 08-28-2019 15:07-0400 Body weight 76.22 kg Haseeb Brizuela SLOANE [facility] Work Phone: 08-28-2019 15:07-0400 BP Diastolic 78 mm[Hg] Haseeb Gelacio ANTON [facility] Internal Medicine Work Phone: Comment on above: Patient Position: Sitting; Cuff Location : Left Arm; Cuff Size: Standard 08-28-2019 15:07-0400 BP Systolic 140 mm[Hg] Haseeb Brizuela SLOANE [facility] Internal Medicine Work Phone: Comment on above: Patient Position: Sitting; Cuff Location : Left Arm; Cuff Size: Standard 08-28-2019 15:07-0400 BSA (Body Surface Area) 1.71 m2 Haseeb Brizuela SLOANE [facility] Internal Medicine Work Phone: 08-28-2019 15:07-0400 Height 149.86 cm Haseeb Gelacio ANTON [facility] Internal Medicine Work Phone: 08-28-2019 15:07-0400 Pulse (Heart Rate) 100 /min Haseeb Brizuela SLOANE [facility] Work Phone: Comment on above: Pattern: Regular 08-28-2019 15:07-0400 Pulse Oximetry 96 % Marcia Walker [facility] Internal Medicine Work Phone: Comment on above: Room air 08-28-2019 15:07-0400 Respiratory Rate 16 /min Haseeb Brizuela LPN [facility] Internal Medicine Work Phone: Comment on above: Pattern: Unlabored 08-28-2019 15:07-0400 SaO2% (BldA) [Mass fraction] 96 % Haseeb Brizuela LPN [facility] Internal Medicine Work Phone: Comment on above: Room air 04-03-2019 10:51-0400 BMI (Body Mass Index) 35.35 kg/m2 Haseeb Brizuela LPN [facility] Work Phone: 04-03-2019 10:51-0400 Body Temperature 98 [degF] Haseeb Brizuela LPN [facility] Internal Medicine Work Phone: Comment on above: Method: Temporal 04-03-2019 10:51-0400 Body weight 79.38 kg Haseeb Brizuela LPN [facility] Internal Medicine Work Phone: 04-03-2019 10:51-0400 BP Diastolic 68 mm[Hg] Haseeb Brizuela LPN [facility] Internal Medicine Work Phone: Comment on above: Patient Position: Sitting; Cuff Location : Left Arm; Cuff Size: Standard 04-03-2019 10:51-0400 BP Systolic 118 mm[Hg] Haseeb Brizuela LPN [facility] Internal Medicine Work Phone: Comment on above: Patient Position: Sitting; Cuff Location : Left Arm; Cuff Size: Standard 04-03-2019 10:51-0400 BSA (Body Surface Area) 1.74 m2 Haseeb Brizuela LPN [facility] Internal Medicine Work Phone: 04-03-2019 10:51-0400 Height 149.86 cm Haseeb Brizuela LPN [facility] Internal Medicine Work Phone: 04-03-2019 10:51-0400 Pulse (Heart Rate) 110 /min Haseeb Brizuela LPN [facility] Work Phone: Comment on above: Pattern: Regular 04-03-2019 10:51-0400 Pulse Oximetry 98 % Marcia Dominiquemeryltarsha [facility] Internal Medicine [...] Body Temperature 97 [degF] Haseeb Brizuela LPN [facility] Internal Medicine Work Phone: Comment on above: Method: Temporal 03-13-2019 08:08-0400 Body weight 79.38 kg Haseeb Brizuela LPN [facility] Work Phone: 03-13-2019 08:08-0400 BP Diastolic 78 mm[Hg] Haseeb Brizuela LPN [facility] Internal Medicine Work Phone: Comment on above: Patient Position: Sitting; Cuff Location : Left Arm; Cuff Size: Standard 03-13-2019 08:08-0400 BP Systolic 144 mm[Hg] Haseeb Brizuela LPN [facility] Internal Medicine Work Phone: Comment on above: Patient Position: Sitting; Cuff Location : Left Arm; Cuff Size: Standard 03-13-2019 08:08-0400 BSA (Body Surface Area) 1.74 m2 Haseeb Brizuela LPN [facility] Internal Medicine Work Phone: 03-13-2019 08:08-0400 Height 149.86 cm Haseeb Brizuela LPN [facility] Internal Medicine Work Phone: 03-13-2019 08:08-0400 Pulse (Heart Rate) 88 /min Haseeb Brizuela LPN [facility] Work Phone: Comment on above: Pattern: Regular 03-13-2019 08:08-0400 Pulse Oximetry 95 % Marcia Walker [facility] Internal Medicine Work Phone: Comment on above: Room air 03-13-2019 08:08-0400 Respiratory Rate 18 /min Haseeb Brizuela LPN [facility] Internal Medicine Work Phone: Comment on above: Pattern: Unlabored 03-13-2019 08:08-0400 SaO2% (BldA) [Mass fraction] 95 % Haseeb Brizuela LPN [facility] Internal Medicine Work Phone: Comment on above: Room air 03-13-2019 08:08-0400 Weight 79.15 kg Marcia Walker [facility] Internal Medicine Work Phone: 03-13-2019 08:08-0400 Weight 79.38 kg Marcia Walker [facility] Medicine Work Phone: 01-19-2019 10:30-0500 BMI (Body Mass Index) 35.24 kg/m2 [facility]: 01-19-2019 10:30-0500 Body Temperature 97.2 [degF] [facility] Work Phone: Comment on above: Method: Temporal 01-19-2019 10:30-0500 Body weight 79.15 kg Federica Olivarez [facility] Internal Medicine Work Phone: 01-19-2019 10:30-0500 BP Diastolic 78 mm[Hg] [facility] Work [facility]: Comment on above: Patient Position: Sitting; Cuff Location : Left Arm; Cuff Size: Standard 01-19-2019 10:30-0500 BP Systolic 130 mm[Hg] [facility] Work [facility]: Comment on above: Patient Position: Sitting; Cuff Location : Left Arm; Cuff Size: Standard 01-19-2019 10:30-0500 BSA (Body Surface Area) 1.74 m2 [facility] Work Phone: 01-19-2019 10:30-0500 Height 149.86 cm [facility] Internal Medicine Work Phone: 01-19-2019 10:30-0500 Pulse (Heart Rate) 75 /min Federica Olivarez [facility] Internal Medicine Work Phone: Comment on above: Pattern: Regular 01-19-2019 10:30-0500 Pulse Oximetry 97 % Marcia Walker [facility] Internal Medicine Work Phone: Comment on above: Room air 01-19-2019 10:30-0500 Respiratory Rate 16 /min Federica Olivarez [facility] Internal Medicine Work Phone: Comment on above: Pattern: Unlabored 01-19-2019 10:30-0500 SaO2% (BldA) [Mass fraction] 97 % Federica Olivarez [facility] Internal Medicine Work Phone: Comment on above: Room air 01-19-2019 10:30-0500 Weight 79.15 kg Marcia Walker [facility] Internal Medicine Work Phone: 10-05-2018 10:09-0500 BMI (Body Mass Index) 35.85 kg/m2 Myra Fowler [facility] Internal Medicine Work Phone: 10-05-2018 10:09-0500 Body Temperature 97.6 [degF] Myra Fowler [facility] Internal Medicine Work Phone: Comment on above: Method: Temporal 10-05-2018 10:09-0500 Body weight 80.51 kg Myra Fowler [facility] Internal Medicine Work Phone: 10-05-2018 10:09-0500 BP Diastolic 70 mm[Hg] [facility] Work [facility]: Comment on above: Patient Position: Sitting; Cuff Location : Left Arm; Cuff Size: Standard 10-05-2018 10:09-0500 BP Systolic 118 mm[Hg] Myra Fowler [facility] Internal Medicine Work Phone: Comment on above: Patient Position: Sitting; Cuff Location : Left Arm; Cuff Size: Standard 10-05-2018 10:09-0500 BSA (Body Surface Area) 1.75 m2 Myra Fowler [facility] Internal Medicine Work Phone: 10-05-2018 10:09-0500 Height 149.86 cm Myra Fowler [facility] Internal Medicine Work Phone: 10-05-2018 10:09-0500 Pulse (Heart Rate) 84 /min Myra Fowler [facility] Internal Medicine Work Phone: Comment on above: Pattern: Regular 10-05-2018 10:09-0500 Pulse Oximetry 96 % Marcia Walker [facility] Internal Medicine Work Phone: Comment on above: Room air 10-05-2018 10:09-0500 Respiratory Rate 16 /min Myra Fowler [facility] Internal Medicine Work Phone: Comment on above: Pattern: Unlabored 10-05-2018 10:09-0500 SaO2% (BldA) [Mass fraction] 96 % Myra Fowler [facility] Internal Medicine Work Phone: Comment on above: Room air 10-05-2018 10:09-0500 Weight 80.51 kg Marcia Walker [facility] Internal Medicine Work Phone: 09-16-2018 10:33-0400 BMI (Body Mass Index) 35.75 kg/m2 Myra Fowler [facility] Internal Medicine Work Phone: 09-16-2018 10:33-0400 Body weight 80.29 kg Myra Fowler [facility] Internal Medicine Work Phone: 09-16-2018 10:33-0400 BSA (Body Surface Area) 1.75 m2 Myra Fowler [facility] Internal Medicine Work Phone: 09-16-2018 10:33-0400 Height 149.86 cm Myra Fowler [facility] Internal Medicine Work Phone: 09-16-2018 10:33-0400 Weight 80.29 kg Marcia Walker [facility] Internal Medicine Work Phone: 06-27-2018 09:57-0400 BMI (Body Mass Index) 35.75 kg/m2 [facility] Work Phone: [...] Mass Index) 35.77 kg/m2 Haseeb Brizuela LPN [facility] Internal Medicine Work Phone: 06-14-2018 08:29-0400 Body [...] BP Systolic 132 mm[Hg] Haseeb Brizuela LPN [facility] Internal Medicine Work Phone: Comment on above: Patient Position: Sitting; Cuff Location : Left Arm; Cuff Size: Standard 06-14-2018 08:29-0400 BSA (Body Surface Area) 1.75 m2 Haseeb Brizuela LPN [facility] Internal Medicine Work Phone: 06-14-2018 08:29-0400 Height 149.86 cm Haseeb Brizuela LPN [facility] Internal Medicine Work Phone: 06-14-2018 08:29-0400 Pulse (Heart Rate) 88 /min Haseeb Brizuela LPN [facility] Work Phone: Comment on above: Pattern: Regular 06-14-2018 08:29-0400 Pulse Oximetry 95 % [facility] Work Phone: Comment on above: Room air 06-14-2018 08:29-0400 Respiratory Rate 16 /min Haseeb Brizuela LPN [facility] Internal Medicine Work Phone: Comment on above: Pattern: Unlabored 06-14-2018 08:29-0400 SaO2% (BldA) [Mass fraction] 95 % Haseeb Brizuela [facility] Internal Medicine Work Phone: Comment on above: Room air 06-14-2018 08:29-0400 Weight 80.34 kg Marcia Walker [facility] Internal Medicine Work Phone: 03-15-2018 10:58-0400 [...] BP Systolic 124 mm[Hg] Heidy Camacho RN [facility] Internal Medicine Work Phone: Comment on above: Patient Position: Sitting; Cuff Location : Left Arm; Cuff Size: Standard 03-15-2018 10:58-0400 BSA (Body Surface Area) 1.76 m2 Heidy Camacho RN [facility] Work Phone: 03-15-2018 10:58-0400 Height 149.86 cm Heidy Camacoh RN [facility] Work Phone: 03-15-2018 10:58-0400 Pulse (Heart Rate) 65 /min Heidy Camacho RN [facility] Internal Medicine Work Phone: Comment on above: Pattern: Regular 03-15-2018 10:58-0400 Pulse Oximetry 95 % Marcia Meiertarsha [facility] Internal Medicine Work Phone: Comment on above: Room air 03-15-2018 10:58-0400 Respiratory Rate 16 /min Heidy Camacho RN [facility] Work Phone: Comment on above: Pattern: Unlabored 03-15-2018 10:58-0400 SaO2% (BldA) [Mass fraction] 95 % Heidy Camacho RN [facility] Work Phone: Comment on above: Room air 03-15-2018 10:58-0400 Weight 80.74 kg Marcia Walker [facility] Internal Medicine Work Phone: 12-06-2017 11:12-0500 BMI (Body Mass Index) 35.75 kg/m2 Latrice Eleanorrb DIESEL PILE HAMMER OPERATOR [facility] Internal Medicine Work Phone: 12-06-2017 11:12-0500 Body Temperature 97.7 [degF] Latrice Levy LPN [facility] Internal Medicine Work Phone: 12-06-2017 11:12-0500 Body weight 80.29 kg Latrice Levy LPN [facility] Internal Medicine Work Phone: 12-06-2017 11:12-0500 BP Diastolic 80 mm[Hg] Latrice Eleanorrb SLOANE [facility] Internal Medicine [...] 11:12-0500 Pulse Oximetry 97 % Marcia Walker [facility] Internal Medicine Work Phone: Comment on above: Room air 12-06-2017 11:12-0500 Respiratory Rate 17 /min Latrice Levy LPN [facility] Work Phone: Comment on above: Pattern: Unlabored 12-06-2017 11:12-0500 SaO2% (BldA) [Mass fraction] 97 % Latrice Levy LPN [facility] Work Phone: Comment on above: Room air 12-06-2017 11:12-0500 Weight 80.29 kg Marcia Walker [facility] Internal Medicine Work Phone: 11-30-2017 09:30-0500 [...] 09:30-0500 Pulse Oximetry 95 % Marcia Walker [facility] Internal Medicine Work Phone: Comment on above: Room air 11-30-2017 09:30-0500 Respiratory Rate 18 /min Veronique Childers RN [facility] Work Phone: Comment on above: Pattern: Unlabored 11-30-2017 09:30-0500 SaO2% (BldA) [Mass fraction] 95 % Veronique Childers RN [facility] Work Phone: Comment on above: Room air 11-30-2017 09:30-0500 Weight 78.47 kg Marcia Walker [facility] Internal Medicine Work Phone: 08-10-2017 14:52-0400 BMI (Body Mass Index) 34.94 kg/m2 Latrice Levy LPN [facility] Internal Medicine Work Phone: 08-10-2017 14:52-0400 Body Temperature 97.3 [degF] Latrice Levy LPN [facility] Internal Medicine Work Phone: 08-10-2017 14:52-0400 Body weight 78.47 kg Latrice Levy LPN [facility] Internal Medicine Work Phone: 08-10-2017 14:52-0400 BP Diastolic 82 mm[Hg] Latrice Slarb DIESEL PILE HAMMER OPERATOR [facility] Work Phone: Comment on above: Patient Position: Sitting; Cuff Location : Left Arm; Cuff Size: Standard 08-10-2017 14:52-0400 BP Systolic 142 mm[Hg] Latrice Eleanorrb DIESEL PILE HAMMER OPERATOR [facility] Work Phone: Comment on above: Patient Position: Sitting; Cuff Location : Left Arm; Cuff Size: Standard 08-10-2017 14:52-0400 BSA (Body Surface Area) 1.73 m2 Latrice Eleanorrb DIESEL PILE HAMMER OPERATOR [facility] Work Phone: 08-10-2017 14:52-0400 Height 149.86 cm Latrice Eleanorrb DIESEL PILE HAMMER OPERATOR [facility] Internal Medicine Work Phone: 08-10-2017 14:52-0400 Pulse (Heart Rate) 99 /min Latrice Levy DIESEL PILE HAMMER OPERATOR Com[facility] Medicine Work Phone: Comment on above: Pattern: Regular 08-10-2017 14:52-0400 Pulse Oximetry 94 % Marcia Walker [facility] Internal Medicine Work Phone: Comment on above: Room air 08-10-2017 14:52-0400 Respiratory Rate 17 /min Latrice Levy DIESEL PILE HAMMER OPERATOR [facility] Internal Medicine Work Phone: Comment on above: Pattern: Unlabored 08-10-2017 14:52-0400 SaO2% (BldA) [Mass fraction] 94 % Latrice Eleanorrb DIESEL PILE HAMMER OPERATOR [facility] Internal Medicine Work Phone: Comment on above: Room air 08-10-2017 14:52-0400 Weight 78.47 kg Marcia Walker [facility] Internal Medicine Work Phone: 05-07-2017 11:00-0400 BMI (Body Mass Index) 33.93 kg/m2 Federica Olivarez [facility] Internal Medicine Work Phone: 05-07-2017 11:00-0400 Body weight 76.2 kg Federica Olivarez [facility] Internal Medicine Work Phone: 05-07-2017 11:00-0400 BP Diastolic 68 mm[Hg] Federica Olivarez [facility] Internal Medicine Work Phone: Comment on above: Patient Position: Sitting; Cuff Location : Left Arm; Cuff Size: Standard 05-07-2017 11:00-0400 BP Systolic 122 mm[Hg] Federica Olivarez [facility] Internal Medicine Work Phone: Comment on above: Patient Position: Sitting; Cuff Location : Left Arm; Cuff Size: Standard 05-07-2017 11:00-0400 BSA (Body Surface Area) 1.71 m2 Federica Olivarez [facility] Internal Medicine Work Phone: 05-07-2017 11:00-0400 Height 149.86 cm Federica Olivarez [facility] Internal Medicine Work Phone: 05-07-2017 11:00-0400 Pulse (Heart Rate) 103 /min Federica Olivarez [facility] Internal Medicine Work Phone: Comment on above: Pattern: Regular 05-07-2017 11:00-0400 Pulse Oximetry 98 % Marcia Walker [facility] Internal Medicine Work Phone: Comment on above: Room air 05-07-2017 11:00-0400 Respiratory Rate 16 /min Federica Olivarez [facility] Internal Medicine Work Phone: Comment on above: Pattern: Unlabored 05-07-2017 11:00-0400 SaO2% (BldA) [Mass fraction] 98 % Federica Olivarez [facility] Internal Medicine Work Phone: Comment on above: Room air 05-07-2017 11:00-0400 Weight 76.2 kg Marcia Walker [facility] Internal Medicine Work Phone: 02-09-2017 13:52-0400 BMI (Body Mass Index) 33.93 kg/m2 Latrice Levy LPN [facility] Internal Medicine Work Phone: 02-09-2017 13:52-0400 Body Temperature 97.1 [degF] Latrice Levy LPN [facility] Internal Medicine Work Phone: 02-09-2017 13:52-0400 Body weight 76.2 kg Latrice Levy LPN [facility] Work Phone: 02-09-2017 13:52-0400 BP Diastolic 76 mm[Hg] Latrice Eleanorrb DIESEL PILE HAMMER OPERATOR [facility] Work Phone: Comment on above: Patient Position: Sitting; Cuff Location : Left Arm; Cuff Size: Standard 02-09-2017 13:52-0400 BP Systolic 118 mm[Hg] Latrice Websterrb DIESEL PILE HAMMER OPERATOR [facility] Work Phone: Comment on above: Patient Position: Sitting; Cuff Location : Left Arm; Cuff Size: Standard 02-09-2017 13:52-0400 BSA (Body Surface Area) 1.71 m2 Latrice Websterrb DIESEL PILE HAMMER OPERATOR [facility] Work Phone: 02-09-2017 13:52-0400 Height 149.86 cm Latrice Websterrb DIESEL PILE HAMMER OPERATOR [facility] Work Phone: 02-09-2017 13:52-0400 Pulse (Heart Rate) 90 /min Latrice Websterrb DIESEL PILE HAMMER OPERATOR [facility] Work Phone: Comment on above: Pattern: Regular 02-09-2017 13:52-0400 Pulse Oximetry 96 % Marcia Walker [facility] Internal Medicine Work Phone: Comment on above: Room air 02-09-2017 13:52-0400 Respiratory Rate 16 /min Latrice Websterrb DIESEL PILE HAMMER OPERATOR [facility] Work Phone: Comment on above: Pattern: Unlabored 02-09-2017 13:52-0400 SaO2% (BldA) [Mass fraction] 96 % Latrice Websterrb DIESEL PILE HAMMER OPERATOR [facility] Work Phone: Comment on above: Room air 02-09-2017 13:52-0400 Weight 76.2 kg Marcia Walker [facility] Internal Medicine Work Phone: 12-09-2016 11:01-0500 BMI (Body Mass Index) 35.35 kg/m2 Latrice Eleanorrb DIESEL PILE HAMMER OPERATOR [facility] Work Phone: 12-09-2016 11:01-0500 Body Temperature 97.8 [degF] Latrice Eleanorrb DIESEL PILE HAMMER OPERATOR [facility] Work Phone: 12-09-2016 11:01-0500 Body weight 79.38 kg Latrice Websterrb DIESEL PILE HAMMER OPERATOR [facility] Work Phone: 12-09-2016 11:01-0500 BP Diastolic 82 mm[Hg] Latrice Eleanorrb DIESEL PILE HAMMER OPERATOR [facility] Work Phone: Comment on above: Patient Position: Sitting; Cuff Location : Left Arm; Cuff Size: Standard 12-09-2016 11:01-0500 BP Systolic 124 mm[Hg] Latrice Eleanorrb DIESEL PILE HAMMER OPERATOR [facility] Work Phone: Comment on above: Patient Position: Sitting; Cuff Location : Left Arm; Cuff Size: Standard 12-09-2016 11:01-0500 BSA (Body Surface Area) 1.74 m2 Latrice Eleanorrb DIESEL PILE HAMMER OPERATOR [facility] Work Phone: 12-09-2016 11:01-0500 Height 149.86 cm Latrice Eleanorrb DIESEL PILE HAMMER OPERATOR [facility] Work Phone: 12-09-2016 11:01-0500 Pulse (Heart Rate) 102 /min Latrice Eleanorrb DIESEL PILE HAMMER OPERATOR [facility] Work Phone: Comment on above: Pattern: Regular 12-09-2016 11:01-0500 Pulse Oximetry 98 % Marcia Walker [facility] Internal Medicine Work Phone: Comment on above: Room air 12-09-2016 11:01-0500 Respiratory Rate 16 /min Latrice Eleanorrb DIESEL PILE HAMMER OPERATOR [facility] Work Phone: Comment on above: Pattern: Unlabored 12-09-2016 11:01-0500 SaO2% (BldA) [Mass fraction] 98 % Latrice Slarb DIESEL PILE HAMMER OPERATOR [facility] Work Phone: Comment on above: Room air 12-09-2016 11:01-0500 Weight 79.38 kg Marcia Walker [facility] Internal Medicine Work Phone: 10-13-2016 15:03-0500 BMI (Body Mass Index) 36.56 kg/m2 Latrice Slarb DIESEL PILE HAMMER OPERATOR [facility] Work Phone: 10-13-2016 15:03-0500 Body Temperature 97.6 [degF] Latrice Levy DIESEL PILE HAMMER OPERATOR [facility] Work Phone: 10-13-2016 15:03-0500 Body weight 82.1 kg Latrice Levy DIESEL PILE HAMMER OPERATOR [facility] Work Phone: 10-13-2016 15:03-0500 BP Diastolic 82 mm[Hg] Latrice Eleanorrb DIESEL PILE HAMMER OPERATOR [facility] Work Phone: Comment on above: Patient Position: Sitting; Cuff Location : Left Arm; Cuff Size: Standard 10-13-2016 15:03-0500 BP Systolic 124 mm[Hg] Latrice Websterrb DIESEL PILE HAMMER OPERATOR [facility] Work Phone: Comment on above: Patient Position: Sitting; Cuff Location : Left Arm; Cuff Size: Standard 10-13-2016 15:03-0500 BSA (Body Surface Area) 1.77 m2 Latrice Websterrb DIESEL PILE HAMMER OPERATOR [facility] Work Phone: 10-13-2016 15:03-0500 Height 149.86 cm Latrice Levy DIESEL PILE HAMMER OPERATOR [facility] Work Phone: 10-13-2016 15:03-0500 [...] (BldA) [Mass fraction] 95 % Latrice Levy DIESEL PILE HAMMER OPERATOR [facility] Work Phone: Comment on above: Room air 10-13-2016 15:03-0500 Weight 82.1 kg Marcia Walker [facility] Work Phone: 09-30-2016 11:20-0400 BMI (Body Mass Index) 36.56 kg/m2 Latrice Slarb DIESEL PILE HAMMER OPERATOR [facility] Work Phone: 09-30-2016 11:20-0400 Body Temperature 98.2 [degF] Latrice Eleanorrb DIESEL PILE HAMMER OPERATOR [facility] Work Phone: 09-30-2016 11:20-0400 Body weight 82.1 kg Latrice Websterrb DIESEL PILE HAMMER OPERATOR [facility] Work Phone: 09-30-2016 11:20-0400 BP Diastolic 80 mm[Hg] Latrice Slarb DIESEL PILE HAMMER OPERATOR [facility] Work Phone: Comment on above: Patient Position: Sitting; Cuff Location : Left Arm; Cuff Size: Standard 09-30-2016 11:20-0400 BP Systolic 124 mm[Hg] Latrice Eleanorrb DIESEL PILE HAMMER OPERATOR [facility] Work Phone: Comment on above: Patient Position: Sitting; Cuff Location : Left Arm; Cuff Size: Standard 09-30-2016 11:20-0400 BSA (Body Surface Area) 1.77 m2 Latrice Slarb DIESEL PILE HAMMER OPERATOR [facility] Work Phone: 09-30-2016 11:20-0400 Height 149.86 cm Latrice Websterrb DIESEL PILE HAMMER OPERATOR [facility] Work Phone: 09-30-2016 11:20-0400 Pulse (Heart Rate) 72 /min Latrice Eleanorrb DIESEL PILE HAMMER OPERATOR [facility] Work Phone: Comment on above: Pattern: Regular 09-30-2016 11:20-0400 Pulse Oximetry 96 % Marcia Walker [facility] Work Phone: Comment on above: Room air 09-30-2016 11:20-0400 Respiratory Rate 17 /min Latrice Levy DIESEL PILE HAMMER OPERATOR [facility] Work Phone: Comment on above: Pattern: Unlabored 09-30-2016 11:20-0400 SaO2% (BldA) [Mass fraction] 96 % Latrice Slarb DIESEL PILE HAMMER OPERATOR [facility] Work Phone: Comment on above: Room air 09-30-2016 11:20-0400 Weight 82.1 kg Marcia Walker [facility] Internal Medicine Work Phone: 08-28-2013 14:44-0400 BMI (Body Mass Index) 38.4 kg/m2 Melonie Lanza LPN [facility] Internal Medicine Work Phone: 08-28-2013 14:44-0400 Body Temperature 98 [degF] Melonie Lanza LPN [facility] Internal Medicine Work Phone: Comment on above: Method: Oral 08-28-2013 14:44-0400 Body weight 86.24 kg Melonie Lanza LPN [facility] Internal Medicine Work Phone: 08-28-2013 14:44-0400 BP Diastolic 86 mm[Hg] Melonie Lanza LPN [facility] Internal Medicine Work Phone: Comment on above: Patient Position: Sitting; Cuff Location : Left Arm; Cuff Size: Standard 08-28-2013 14:44-0400 BP Systolic 144 mm[Hg] Melonie Lanza LPN [facility] Internal Medicine Work Phone: Comment on above: Patient Position: Sitting; Cuff Location : Left Arm; Cuff Size: Standard 08-28-2013 14:44-0400 BSA (Body Surface Area) 1.8 m2 Melonie Lanza LPN [facility] Internal Medicine Work Phone: 08-28-2013 14:44-0400 Height 149.86 cm Melonie Lanza LPN [facility] Internal Medicine Work Phone: 08-28-2013 14:44-0400 Pulse (Heart Rate) 90 /min Melonie Lanza LPN [facility] Internal Medicine Work Phone: Comment on above: Pattern: Regular 08-28-2013 14:44-0400 Respiratory Rate 16 /min Melonie Lanza LPN [facility] Internal Medicine Work Phone: 08-28-2013 14:44-0400 Weight 86.24 kg Marcia Walker [facility] Medicine Work Phone: 08-15-2013 11:28-0400 BMI (Body Mass Index) 38.4 kg/m2 Melonie Lanza LPN [facility] Work Phone: 08-15-2013 11:28-0400 Body Temperature 98.8 [degF] Melonie Lanza LPN [facility] Internal [...] (Heart Rate) 82 /min Melonie Lanza LPN [facility] Internal Medicine Work Phone: Comment on above: Pattern: Regular 08-15-2013 11:28-0400 Pulse Oximetry 96 % Marcia Walker [facility] Internal Medicine Work Phone: Comment on above: Room air 08-15-2013 11:28-0400 Respiratory Rate 17 /min Melonie Lanza LPN [facility] Internal Medicine Work Phone: 08-15-2013 11:28-0400 SaO2% (BldA) [Mass fraction] 96 % Melonie Lanza LPN [facility] Internal Medicine Work Phone: Comment on above: Room air 08-15-2013 11:28-0400 Weight 86.24 kg Marcia Walker [facility] Internal Medicine Work Phone: 08-07-2013 10:47-0400 BMI (Body Mass Index) 38.4 kg/m2 Melonie Lanza LPN [facility] Internal Medicine Work Phone: 08-07-2013 10:47-0400 Body Temperature 98 [degF] Melonie Lanza LPN [facility] Internal Medicine Work Phone: Comment on above: Method: Oral 08-07-2013 10:47-0400 Body weight 86.24 kg Melonie Lanza LPN [facility] Internal Medicine Work Phone: 08-07-2013 10:47-0400 BP Diastolic 82 mm[Hg] Melonie aLnza LPN [facility] Internal Medicine Work Phone: Comment on above: Patient Position: Sitting; Cuff Location : Left Arm; Cuff Size: Standard 08-07-2013 10:47-0400 BP Systolic 142 mm[Hg] Melonie Lanza LPN [facility] Internal Medicine Work Phone: Comment on above: Patient Position: Sitting; Cuff Location : Left Arm; Cuff Size: Standard 08-07-2013 10:47-0400 BSA (Body Surface Area) 1.8 m2 Melonie Lanza LPN [facility] Internal Medicine Work Phone: 08-07-2013 10:47-0400 Height 149.86 cm Melonie Lanza LPN [facility] Medicine Work Phone: 08-07-2013 10:47-0400 Pulse (Heart Rate) 74 /min Melonie Lanza LPN [facility] Internal Medicine Work Phone: Comment on above: Pattern: Regular 08-07-2013 10:47-0400 Pulse Oximetry 96 % Marcia Walker [facility] Internal Medicine Work Phone: Comment on above: Room air 08-07-2013 10:47-0400 Respiratory Rate 18 /min Melonie Lanza LPN [facility] Internal Medicine Work Phone: 08-07-2013 10:47-0400 SaO2% (BldA) [Mass fraction] 96 % Melonie Lanza LPN [facility] Internal [...] 13:53-0400 Pulse (Heart Rate) 60 /min Veronique Cihlders RN [facility] Work Phone: Comment on above: Pattern: Regular 03-06-2013 13:53-0400 Respiratory Rate 20 /min Veronique Childers RN [facility] Work Phone: Comment on above: Pattern: Unlabored 03-06-2013 13:53-0400 Weight 84.88 kg Marcia Walker [facility] Internal Medicine Work Phone: 03-07-2012 11:15-0400 BMI (Body Mass Index) 36.05 kg/m2 Safia Sosa RN [facility] Internal Medicine Work Phone: 03-07-2012 [...] 14:31-0400 Respiratory Rate 16 /min Melonie Lanza DIESEL PILE HAMMER OPERATOR [facility] Work Phone: Comment on [...] 05-31-2025 Emergency department patient visit Karen Alcazar TELEVISION SERVICE ENGINEER-C Work Phone: -Emergency Department Work Phone: Start: 01-04-2025 End: 01-04-2025 ambulatory Karen Alcazar Facility:[facility] Start: 11-01-2024 End: 11-01-2024 Telephone encounter Celena Kaba APRN.ANALYTICS ANALYST Work Phone: Hematology/Oncology Start: 10-31-2024 End: 10-31-2024 ambulatory Karen Alcazar Facility:[facility] Start: 10-09-2024 ambulatory Kelvin Ayala Facility:[facility] Start: 10-09-2024 End: 10-09-2024 ambulatory Karen Ottoniel Facility:[facility] Start: 09-25-2024 End: 09-25-2024 Emergency department patient visit Lyle Guerrero Facility:[facility] Start: 09-25-2024 End: 09-25-2024 ambulatory Karen Ottoniel Facility:[facility] Start: 08-01-2024 End: 08-01-2024 ambulatory Karen Ottoniel Facility:[facility] Start: 07-20-2023 End: 07-29-2023 Office outpatient visit 25 minutes Karen Alcazar ANALYTICS ANALYST Work Phone: [facility] Start: 07-05-2023 End: 07-05-2023 ambulatory [facility] Work Phone: Start: 07-05-2023 End: 07-05-2023 Patient encounter procedure [facility] Work Phone: Start: 06-21-2023 End: 06-21-2023 Karen Alcazar ANALYTICS ANALYST Work Phone: [facility] Start: [...] Start: 05-19-2022 End: 05-19-2022 Patient encounter procedure [facility] Start: 02-27-2022 End: 02-27-2022 Office outpatient visit 15 minutes Marcia Walker Work Phone: [facility] Start: 11-18-2021 End: 11-18-2021 Office outpatient visit 25 minutes Marcia Walker CNP Work Phone: [facility] Start: 08-13-2021 End: 08-13-2021 Office outpatient visit 25 minutes Marcia Walker CNP Work Phone: [facility] Start: 03-28-2021 End: 03-28-2021 Annotation/Addendum Marcia Ciesa ANALYTICS ANALYST Work Phone: [facility] Start: 03-28-2021 End: 03-28-2021 Karen Alcazar ANALYTICS ANALYST Work Phone: [facility] Start: 03-19-2021 End: 03-19-2021 Office outpatient visit 25 minutes Marcia Walker ANALYTICS ANALYST Work Phone: [facility] Start: 03-19-2021 Review Marcia Walker ANALYTICS ANALYST Work Phone: [facility] Start: 03-13-2021 End: 03-13-2021 Lab Order Marcia Walker [facility] Start: 03-13-2021 End: 03-13-2021 Karen Alcazar ANALYTICS ANALYST Work Phone: [facility] Start: 03-10-2021 Review Marcia Morin [facility] Start: 03-10-2021 End: 03-10-2021 Phone Encounter Marcia Walker [facility] Start: 03-10-2021 End: 03-10-2021 Karen Alcazar ANALYTICS ANALYST Work Phone: [facility] Start: 02-24-2021 End: 02-24-2021 Office outpatient visit 15 minutes Marcia Walker [facility] Start: 09-30-2020 End: 09-30-2020 Annotation/Addendum Marcia Walker [facility] Start: 09-30-2020 End: 09-30-2020 Karen Alcazar ANALYTICS ANALYST Work Phone: [facility] Start: 08-09-2020 End: 08-09-2020 Annotation/Addendum Marcia Walker [facility] Start: 08-09-2020 End: 08-09-2020 Karen Alcazar ANALYTICS ANALYST Work Phone: [facility] Start: 06-11-2020 End: 06-11-2020 Annotation/Addendum Marcia Walker [facility] Start: 06-11-2020 Review Marcia Morin [...] 08-18-2019 End: 08-18-2019 Annotation/Addendum Marcia Walker [facility] Start: 08-18-2019 End: 08-18-2019 Karen Alcazar CNP Work Phone: [facility] Start: 04-03-2019 End: 04-03-2019 Office outpatient visit 15 minutes Marcia Walker [facility] Start: 03-14-2019 End: 03-14-2019 Annotation/Addendum Marcia Walker [facility] Start: 03-14-2019 End: 03-14-2019 Karen [...] 09-16-2018 End: 09-16-2018 Annotation/Addendum Marcia Meiera [facility] Start: 09-16-2018 End: 09-16-2018 Karen Alcazar CNP Work Phone: [facility] Start: 09-01-2018 End: 09-01-2018 Annotation/Addendum Marcia Reneaa [facility] Start: 09-01-2018 End: 09-01-2018 Karen Alcazar CNP Work Phone: [facility] Start: 06-27-2018 End: 06-27-2018 Office outpatient visit 15 minutes Marcia Walker [facility] Start: 06-14-2018 End: 06-14-2018 Office outpatient visit 25 minutes Marcia Walker [facility] Start: 04-20-2018 End: 04-20-2018 Lab Order Marcia Walker [facility] Start: 04-20-2018 End: 04-20-2018 Karen Alcazar CNP Work Phone: [facility] Start: 03-25-2018 End: 03-25-2018 Phone Encounter Marcia Walker [facility] Start: 03-25-2018 End: 03-25-2018 Kraen Alcazar ANALYTICS ANALYST Work Phone: [facility] Start: 03-15-2018 End: 03-15-2018 Phone Encounter Marcia Walker [facility] Start: 03-15-2018 End: 03-15-2018 Karen [...] 10-04-2017 End: 10-04-2017 Annotation/Addendum Marcia Walker [facility] Start: 10-04-2017 End: 10-04-2017 Karen Alcazar CNP Work Phone: [facility] Start: 09-20-2017 [facility] Facility [facility] Start: 08-10-2017 End: 08-10-2017 Office outpatient visit [...] End: 10-13-2016 Patient encounter Marcia Walker [facility] Start: 10-13-2016 End: 10-13-2016 Karen Alcazar CNP Work Phone: [facility] Start: 10-13-2016 End: 10-13-2016 Office outpatient visit 25 minutes Marcia Walker [facility] Start: 09-30-2016 End: 09-30-2016 Annotation/Addendum Marcia Walker [facility] Start: 09-30-2016 End: 09-30-2016 Karen Alcazar CNP Work Phone: [facility] Start: 09-30-2016 End: 09-30-2016 Office outpatient visit 25 minutes Marcia Walker [facility] Start: 09-11-2013 End: 09-11-2013 Lab Order Marcia Walker [facility] Start: 09-11-2013 End: 09-11-2013 Karen [...] End: 03-06-2013 Patient encounter Marcia Walker [facility] Start: 03-06-2013 End: 03-06-2013 Karen Alcazar CNP Work Phone: [facility] Start: 03-07-2012 End: 03-07-2012 Patient encounter Marcia Walker [facility] Start: 03-07-2012 End: 03-07-2012 Karen Alcazar CNP Work Phone: [facility] Start: 04-29-2010 End: 04-29-2010 Office outpatient visit 15 minutes Marcia Walker [facility] Start: 10-18-2009 End: 10-18-2009 Office outpatient new 30 minutes Marcia Walker [facility] Patient encounter procedure Federica Olivarez CMA [facility] Work Phone: Patient encounter procedure Haseeb Brizuela DIESEL PILE HAMMER OPERATOR [facility]; [facility] Work Phone: Patient encounter procedure Latrice Cam DIESEL PILE HAMMER OPERATOR [facility]; [facility] Work Phone: Patient encounter procedure Haseeb Sherwood DIESEL PILE HAMMER OPERATOR [facility] Work Phone: Patient encounter procedure Haseeb Brizuela DIESEL PILE HAMMER OPERATOR [facility] Work Phone: Patient encounter procedure Ry Serna [facility] Work Phone: Patient encounter procedure Latrice Levy DIESEL PILE HAMMER OPERATOR [facility]; [facility] Work Phone: Patient encounter procedure Nellie Knox DIESEL PILE HAMMER OPERATOR [facility]; [facility] Work Phone: Patient encounter procedure Latricetarsha Levy DIESEL PILE HAMMER OPERATOR [facility]; [facility] Work Phone: Patient encounter procedure Karen Alcazar CNP Work Phone: [facility]; [facility] Work Phone: Patient encounter procedure Flavia Coleman MA [facility]; [facility] Work Phone: Procedures Date Procedure Procedure Detail Performing Clinician Start: 05-31-2025 Plain X-ray of shoulder Karen Alcazar TELEVISION SERVICE ENGINEER-C Work Phone: Start: 05-31-2025 CT cervical spine without contrast Karen Alcazar TELEVISION SERVICE ENGINEER-C Work Phone: Start: 05-31-2025 CT of face Karen wong TELEVISION SERVICE ENGINEER-C Work Phone: Start: 05-31-2025 CT of head without contrast Karen Alcazar TELEVISION SERVICE ENGINEER-C Work Phone: Start: 07-05-2023 Screening mammography Start: 07-05-2023 End: 07-05-2023 Procedure Note: See Note; NOTES: [facility] Imaging Services [address] [place] [address] SCRN MAMM (CAD)W/SHELIA BILAT MR#: [id number] Acct: [id number] Name: KAREN VILLALOBOS Rep #: [id number] : 1945 F [id number] From: Fernando shaw MD PCP: ADRIANO Burgess Status: [facility] Study: SCRN MAMM (CAD)W/SHELIA BILAT Date of Exam: 06/20 Exam# [id number] Ordering Dr: Karen Alcazar TELEVISION SERVICE ENGINEER-C MAMMOGRAPHY - BILATERAL SCREENING REASON FOR EXAM: [...] delay biopsy of a clinically suspicious abnormality. [id number] Electronically Signed: Fernando Ford MD at 13:14 EDT , CC: TELEVISION SERVICE ENGINEEROmega Alcazar Insert Cutter: Signed Karen Alcazar ANALYTICS ANALYST Work Phone: Start: 05-19-2022 End: 05-22-2022 SCRN MAMM (CAD)W/SHELIA BILAT Comments: See Note; NOTES: [facility] Imaging Services [address] [place] [address] SCRN MAMM (CAD)W/SHELIA BILAT MR#: [id number] Acct: [id number] Name: KAREN VILLALOBOS Rep #: [id number] : 1945 F 76 From: Hamilton Rice DO PCP: ADRIANO Moralez Status: [facility] Study: SCRN MAMM (CAD)W/SHELIA BILAT Date of Exam: 04/30 12/20 Exam# [id number] Ordering Dr: Marcia Walker NP TELEVISION SERVICE ENGINEER-C MAMMOGRAPHY - BILATERAL SCREENING REASON FOR EXAM: [...] delay biopsy of a clinically suspicious abnormality. [id number] Electronically Signed: Hamilton Rice, at 9:11 EDT Reading Location ID and State: [facility] Tel , Service support , CC: ADRIANO Walker Insert Cutter: Signed Marcia Walker Work Phone: Start: 04-11-2021 End: 04-11-2021 SCRN MAMM (CAD)W/SHELIA BILAT Comments: See Note; NOTES: [facility] Imaging Services [address] [place] [id number] SCRN MAMM (CAD)W/SHELIA BILAT MR#: [id number] Acct: [id number] Name: KAREN VILLALOBOS Rep #: [id number] : 1945 F 75 From: Fernando shaw MD PCP: ADRIANO Moralez Status: [facility] [place] Study: SCRN MAMM (CAD)W/SHELIA BILAT Date of Exam: 03/29 03/19 Exam# [id number] Ordering Dr: Marcia Walker NP TELEVISION SERVICE ENGINEER-C MAMMOGRAPHY - BILATERAL SCREENING REASON FOR EXAM: [...] delay biopsy of a clinically suspicious abnormality. [id number] Electronically Signed: Fernando Ford MD at 12:41 EDT , Service support , CC: ADRIANO Walker Insert Cutter: Signed Marcia Walker [facility] Work Phone: Start: 03-20-2021 End: 03-21-2021 Sinus/Facial Bone Comments: See Note; NOTES: [facility] Imaging Services [address] [place] [address] Sinus/Facial Bone MR#: [id number] Acct: [id number] Name: KAREN VILLALOBOS Rep #: [id number] : 1945 F 75 From: Toni Bond MD PCP: ADRIANO Moralez Status: REG CLI Study: Sinus/Facial Bone Date of Exam: 03/20/21 Exam# [id number] Ordering Dr: Arelis Chiu DO STUDY: CT [...] CC: ADRIANO Walker; Dr. Arelis Chiu DO Insert Cutter: Signed Arelis Chiu DO Work Phone: Start: 08-30-2019 End: 08-30-2019 SCREEN MAMM (CAD) W/SHELIA BILAT Comments: See Note; NOTES: [facility] Imaging Services [address] [place] [address] SCREEN MAMM (CAD) W/SHELIA BILAT MR#: [id number] Acct: [id number] Name: KAREN VILLALOBOS Rep #: [id number] : 1945 F 74 From: Fernando Ford MD PCP: Renata Mei DO Status: [facility] CL Study: SCREEN MAMM (CAD) W/SHELIA BILAT Date of Exam: 08/30/19 Exam# [id number] Ordering Dr: Marcia Walker TELEVISION SERVICE ENGINEEROmega MAMMOGRAPHY - BILATERAL SCREENING REASON FOR EXAM: [...] delay biopsy of a clinically suspicious abnormality. [id number] Electronically Signed: Fernando Liliana, at 14:52 EDT , Service support , CC: TELEVISION SERVICE ENGINEER-Dinorah Walker; Renata Mei DO Insert Cutter: Signed Marcia Walker Work Phone: Start: 05-09-2019 End: 05-09-2019 12 lead ECG Comments: See Note; NOTES: [facility] Cardiovascular Services [address] [place] [address] 12 Lead EKG 05/05/19 0048 MR#: [id number] Acct: [id number] Name: KAREN VILLALOBOS Rep #: [id number] : 1945 73 From: Paul Cruz MD [...] Abnormal ECG Confirmed by SHARATH CLEMONS, PAUL ([id number]), editor producer QUEENIE GUERRA ([id number]) on 05/09/2019 8:45:38 AM Referred By: EFRAIN Confirmed By:PAUL CRUZ MD 05/09/19 0845 Date Paul Cruz MD CC: Huang Escudero MD; Renata Mei DO Signed Marcia Walker Start: 05-05-2019 End: 05-05-2019 Emergency Department Summary Comments: See Note; NOTES: [facility] Medical Records Department [address] [place] [address] Emergency Department Summary 05/05/19 0023 MR#: [id number] Acct: [id number] Name: KAREN VILLALOBOS Rep #: [id number] : 1945 73 From: Huang Escudero MD [...] your Primary Care Provider. Call [facility] ([phone]) or report to the closest Emergency Room. Call 911 if necessary. 05/05/19 0107 <Electronically signed by Huang Escudero MD> Date Huang Escudero MD Cosigner Signature (If Indicated): Date CC: Renata Mei DO Marcia Walker Start: 04-18-2019 End: 04-18-2019 Discharge Instruction Comments: See Note; NOTES: [facility] Medical Records Department [address] [place] [address] Instructions for Home/Discharge Instructions 04/18/19 1318 MR#: [id number] Acct: [id number] Name: KAREN VILLALOBOS Rep #: [id number] : 1945 73 From: Renetta Najera MD PCP: Renata Mei DO Status: REG [facility] Discharge Diet: No Restrictions - Increase water [...] HCl ER] 500 mg PO BID 10/03/18 Campbell-3 Fatty Acids [Fish Oil] 500 mg PO [...] 04-18-2019 Operative Report Comments: See Note; NOTES: [facility] Medical Records Department [address] [place] [address] Operative Report 04/18/19 1313 MR#: [id number] Acct: [id number] Name: KAREN VILLALOBOS Rep #: [id number] : 1945 73 From: Renetta Najera MD PCP: Renata Mei DO Status: REG SDC Y Location: [place] [address] Problem List (1) Endometrial thickening on ultrasound [...] and Physical Exam Comments: See Note; NOTES: [facility] Medical Records Department [address] [place] [address] History and Physical 04/10/191953 MR#: [id number] Acct: [id number] Name: KAREN VILLALOBOS Rep #: [id number] : 1945 73 From: Renetta Najera MD PCP: Renata Mei DO Status: REG [facility] Y Location: [place] [address] ADDENDUM by Renetta Najera MD on 04/18/19 [...] and Physical Exam Comments: See Note; NOTES: [facility] Medical Records Department [address] [place] [address] History and Physical 04/10/191953 MR#: [id number] Acct: [id number] Name: KAREN VILLALOBOS Rep #: [id number] : 1945 73 From: Renetta Najera MD PCP: Renata Mei DO Status: PRE [facility] Y Location: [facility] Problem List (1) Endometrial thickening on ultrasound [...] 12 lead ECG Comments: See Note; NOTES: [facility] Cardiovascular Services [address] [place] [address] 12 Lead EKG 03/07/19 1606 MR#: [id number] Acct: [id number] Name: KAREN VILLALOBOS Rep #: [id number] : 1945 73 From: Papa Gamble MD Attending Dr: Renetta Najera MD Status: PRE SDC Ordering Dr: Renetta Najera MD Date: 03/07/19 Location: [facility] Sex: F C Admitted: Test Reason : [...] Abnormal ECG Confirmed by MAVIS CLEMONS, PAPA ([id number]), editor producer QUEENIE GUERRA ([id number]) on 03/08/2019 1:22:42 PM [...] Cells: SURGERYTime: 0800SURGICAL PROCEDURE: HS D AND [facility] [email or web address] [place], [address] Start: 12-12-2018 End: 12-12-2018 Operative Report Comments: See Note; NOTES: [facility] Medical Records Department [address] [address] Operative Report 12/05/18 1325 MR#: [id number] Acct: [id number] Name: KAREN VILLALOBOS Rep #: [id number] : 1945 73 From: Zee Rivas MD PCP: Renata Mei DO Status: [facility] Y Location: [facility] Report of Operation Date of Procedure: 12/05/18 Pre-Operative Diagnosis: right breast cancer Post-Operative Diagnosis: same Surgery/Procedure Performed:: right axillary sentinel lymph node biopsy via blue and radioactive dye Description of Surgical Findings:: sentinel lymph node biopsy - 5 out of 5 lymph nodes negative for metastatic disease 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,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 Type of Anesthesia:: General Anesthesiologist: Mandy [...] 12-05-2018 Discharge Instruction Comments: See Note; NOTES: [facility] Medical Records Department [address] [place] [address] Instructions for Home/Discharge Instructions 12/05/18 1206 MR#: [id number] Acct: [id number] Name: KAREN VILLALOBOS Rep #: [id number] : 1945 73 From: Zee Rivas MD PCP: Renata Mei DO Status: REG [facility] Discharge Diet: No Restrictions Discharge Activity: Return [...] HCl ER] 500 mg PO BID 10/03/18 Campbell-3 Fatty Acids [Fish Oil] 500 mg PO DAILY 10/03/18 Hydrocodone Bitart/Apap 5-325 [[place] 5MG-325MG] 1 tab PO Q8H PRN PRN 3 Days #10 tab 12/05/18 The following prescriptions were given: Hydrocodone Bitart/Apap 5-325 [[place] 5MG-325MG] 1 tab PO Q8H PRN PRN 3 Days #10 tab PRN Reason: Pain Primary Care Physician: Renata Mei DO [Primary Care Provider] - Please Follow Up With: Zee Rivas MD - call When: to be seen in 7-10 days, please call for date and time, thank you 12/05/18 6339 <Electronically signed by Zee Rivas MD> Date Zee Rivas MD CC: Renata Mei DO Signed Marcia Walker Start: 12-05-2018 End: 12-05-2018 Lymph Node Injection Only Comments: See Note; NOTES: [facility] Imaging Services [address] [place] [address] Lymph Node Injection Only MR#: [id number] Acct: [id number] Name: KAREN VILLALOBOS Rep #: [id number] : 1945 F 73 From: Fernando Ford MD PCP: Renata Mei DO Status: [facility] Study: Lymph Node Injection Only Date of Exam: 12/05/18 Exam# [id number] Ordering Dr: Zee Rivas MD PROCEDURE: NUCLEAR MEDICINE Injection Anderson Node - RIGHT breast(s). REASON FOR EXAM: Female, 73 years old. Right breast cancer. TECHNIQUE: Anderson node localization using radionuclide methods of the [...] Fernando Ford MD at 12:54 EST Tel [phone], Service support , CC: Renata Mei DO; Zee Rivas MD Insert Cutter: Signed Zee Rivas Work Phone: Start: 10-13-2018 End: 10-13-2018 Operative Report Comments: See Note; NOTES: [facility] Medical Records Department [address] [place] [address] Operative Report 10/11/18 1037 MR#: [id number] Acct: [id number] Name: KAREN VILLALOBOS Rep #: [id number] : 1945 73 From: Zee Rivas MD PCP: Renata Mei DO Status: [facility] Y Location: [facility] Report of Operation Date of Procedure: 10/10/18 [...] dissection was done to ensure clear margins 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 The patient s left breast was placed in the opening at the head of the table. A ventilation worker compression mammogram was then obtained in the [...] at the proper coordinates of depth. A ventilation worker film was obtained which revealed the wire in proper position. The wire was then secured to the patient's skin. The right breast was then addressed next. The patient s right breast was placed in the opening at the head of the table. A ventilation worker compression mammogram was then obtained. The marker [...] at the proper coordinates of depth. A ventilation worker film was obtained which revealed the wire [...] Renata Mei DO; Zee Rivas MD Signed Mracia Walker Start: 10-10-2018 End: 10-10-2018 Discharge Instruction Comments: See Note; NOTES: [facility] Medical Records Department [address] [place] [address] Instructions for Home/Discharge Instructions 10/10/18 1239 MR#: [id number] Acct: [id number] Name: KAREN VILLALOBOS Rep #: [id number] : 1945 73 From: Zee Rivas MD PCP: Renata Mei DO Status: REG [facility] Discharge Diet: No Restrictions Discharge Activity: Return [...] HCl ER] 500 mg PO BID 10/03/18 Campbell-3 Fatty Acids [Fish Oil] 500 mg PO [...] October 08 at 10:00, thank you 10/10/18 9417 <Electronically signed by Zee Rivas MD> Date Zee Rivas MD CC: Renata Mei DO Marcia Walker Start: 10-10-2018 End: 10-10-2018 Breast Biopsy Specimen Comments: See Note; NOTES: [facility] Imaging Services [address] [place] [address] Breast Biopsy Specimen MR#: [id number] Acct: [id number] Name: KAREN VILLALOBOS Rep #: [id number] : 1945 F 73 From: Fernando Ford MD PCP: Renaat Mei DO Status: [facility] Study: Breast Biopsy Specimen Date of Exam: 10/10/18 Exam# [id number] Ordering Dr: Zee Rivas MD SURGICAL BREAST SPECIMEN RADIOGRAPH CLINICAL: Document presence of mass in biopsy specimen. FINDINGS: Specimen shows presence of mass. Electronically Signed: Fernando Ford MD at 15:46 EST Tel [phone], Service support , BI/Breast Biopsy Specimen CC: Renata Mei DO; Zee Riavs MD Insert Cutter: Signed Zee Rivas Work Phone: Start: 10-10-2018 End: 10-10-2018 Breast Biopsy Specimen Comments: See Note; NOTES: [facility] Imaging Services [address] [place] [address] Breast Biopsy Specimen MR#: [id number] Acct: [id number] Name: KAREN VILLALOBOS Rep #: [id number] : 1945 F 73 From: Fernando Ford MD PCP: Renata Mei DO Status: [facility] Study: Breast Biopsy Specimen Date of Exam: 10/10/18 Exam# [id number] Ordering Dr: Zee Rivas MD SURGICAL BREAST SPECIMEN RADIOGRAPH CLINICAL: Document presence of mass in biopsy specimen. FINDINGS: Specimen shows presence of mass. Electronically Signed: Fernando Ford MD at 16:00 EST Tel [phone], Service support , BI/Breast Biopsy Specimen CC: Renata Mei DO; Zee Rivas MD Insert Cutter: Signed Zee Rivas Work Phone: Start: 10-10-2018 End: 10-10-2018 Lymph Node Injection Only Comments: See Note; NOTES: [facility] Imaging Services [address] [facility] [place] [address] Lymph Node Injection Only MR#: [id number] Acct: [id number] Name: KAREN VILLALOBOS Rep #: [id number] : 1945 F 73 From: Fernando Ford MD PCP: Renata Mei DO Status: [facility] Study: Lymph Node Injection Only Date of Exam: 10/10/18 Exam# [id number] Ordering Dr: Zee Rivas MD PROCEDURE: NUCLEAR MEDICINE Injection Anderson Node - LEFT breast(s). REASON FOR EXAM: Female, 73 years old. Left breast cancer. TECHNIQUE: Anderson node localization using radionuclide methods of the [...] Fernando Ford MD at 10:36 EST Tel [phone], Service support , CC: Renata Mei DO; Zee Rivas MD Insert Cutter: Signed Zee Rivas Work Phone: Start: 08-30-2018 End: 09-01-2018 Breast Limited Unilateral Comments: See Note; NOTES: [facility] Imaging Services [address] [place] [address] Breast Limited Unilateral MR#: [id number] Acct: [id number] Name: KAREN VILLALOBOS Rep #: [id number] : 1945 F 73 From: Fernando Ford MD PCP: Renata Mei DO Status: REG CLI Study: Breast Limited Unilateral Date of Exam: 08/30/18 Exam# [id number] Ordering Dr: Renata Mei DO STUDY: ULTRASOUND [...] Fernando Ford MD at 14:09 EDT Tel [phone], Service support , STUDY: ULTRASOUND BREAST - [...] Fernando Ford MD at 14:10 EDT Tel [phone], Service support , CC: Renata Mei DO Insert Cutter: Signed Renata Mei Work Phone: Start: 08-23-2018 End: 08-23-2018 SCREENING MAMM (CAD), BILAT Comments: See Note; NOTES: [facility] Imaging Services [address] [place] [address] SCREENING MAMM (CAD), BILAT MR#: [id number] Acct: [id number] Name: KAREN VILLALOBOS Rep #: [id number] : 1945 F 73 From: Fernando Ford MD PCP: Renata Mei DO Status: REG CLI Study: SCREENING MAMM (CAD), BILAT Date of Exam: 08/23/18 Exam# [id number] Ordering Dr: Renetta Najera MD MAMMOGRAPHY - [...] delay biopsy of a clinically suspicious abnormality. [id number] Electronically Signed: Fernando Ford MD at 11:32 EDT Tel [phone], Service support , CC: Renetta Najera MD; Renata Mei DO Insert Cutter: Signed Marcia Walker Start: 02-22-2017 End: 02-22-2017 SCREENING MAMM (CAD), BILAT Comments: See Note; NOTES: [facility] Imaging Services [address] [place] [address] Verdana 4d SCREENING MAMM (CAD), BILAT MR#: [id number] Acct: [id number] Name: KAREN VILLALOBOS Rep #: [id number] : 1945 F 71 From: Fernando Ford MD PCP: Renata Mei DO Status: REG CLI Study: SCREENING MAMM (CAD), BILAT Date of Exam: 02/22/17 Exam# [id number] Ordering Dr: Renetta Najera MD MAMMOGRAPHY - [...] delay biopsy of a clinically suspicious abnormality. [id number] Electronically Signed: Fernando Ford MD at 14:49 EDT Tel [phone], Service support [phone], CC: Renetta Najera MD; Renata Mei DO Insert Cutter: Signed Marcia Walker Start: 03-22-2015 End: 10-01-2016 Bilat Scrn Digital AND CAD Comments: See Note; NOTES: [facility] Imaging Services [address] [place] [address] Breast Imaging Report MR#: [id number] Acct: [id number] Name: KAREN VILLALOBOS Rep #: [id number] : 1945 F 69 From: Fernando Ford MD PCP: Renata Mei DO Status: [facility] CLI Study: Bilat Scrn Digital AND CAD Date of Exam: 03/22/15 Exam# [id number] Ordering Dr: Renetta Najera MD MAMMOGRAPHY - [...] Fernando Ford MD at 14:56 EDT Tel [phone], Service support [phone], CC: Renetta Najera MD; Renata Mei DO Insert Cutter: Signed Marcia Walker H/O: section Section Silvestre Olivarez PUBLIC STENOGRAPHER Comment on above: 1977 H/O: section Section Bernardo Brizuela LPN Comment on above: 1977 H/O: section Section An yakov Levy LPN Comment on above: 1977 H/O: section Section Bernardo Sherwood LPN Comment on above: 1977 H/O: section Section Mo eze Brizuela LPN Comment on above: 1977 H/O: section Section Rubio Serna [facility] Comment on above: 1977 H/O: section Section An yakov Cam [place] Comment on above: 1977 H/O: section Section Robert Knox LPN Comment on above: 1977 H/O: section Latrice Levy LPN H/O: section Alexandra Alcazar [facility] Work Phone: H/O: section Flavia Coleman MA H/O: surgery Tonsillectomy Federica gutierrez PUBLIC STENOGRAPHER H/O: surgery Tonsillectomy Haseeb Brizuela L PN H/O: surgery Tonsillectomy Latrice Slarb L PN H/O: surgery Tonsillectomy Haseeb Sherwood L PN H/O: surgery Tonsillectomy Haseeb Brizuela L PN H/O: surgery Tonsillectomy Ry Serna PUBLIC STENOGRAPHER H/O: surgery Tonsillectomy Latrice Slarb L PN H/O: surgery Tonsillectomy Nellie Knox 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 H/O: surgery Latrice Slarb LP N H/O: surgery Karen Alcazar ANALYTICS ANALYST Work Phone: H/O: surgery Flavia Coleman MA Plan of Treatment Date Care Activity Detail Author Start: 05-31-2025 [facility] Start: 07-30-2024 Covid-19 Vaccine () Covid-19 Vaccine () [facility] Start: 07-30-2024 Influenza vaccination Influenza Vaccine (#1) [facility] Start: 11-29-2023 Advance Directive Discussion Advance Directive Discussion [facility] Start: 07-20-2023 Assay of thyroid stimulating hormone tsh [facility] Work Phone: Start: 07-20-2023 Procedure Education [facility] Work Phone: Start: 07-20-2023 Provider Instructions for Treatment [facility]; [facility] Work Phone: Start: 07-20-2023 Lipid panel [facility]; [facility] Work Phone: Start: 07-20-2023 Blood count complete auto&auto difrntl wbc [facility]; [facility] Work Phone: Start: 07-20-2023 Creatinine other source [facility] Work Phone: Start: 07-20-2023 Comprehensive metabolic panel [facility]; [facility] Work Phone: Start: 02-02-2023 Patient Education [facility]; [facility] Work Phone: Start: 02-02-2023 Provider Instructions for Treatment [facility]; [facility] Work Phone: Start: 01-19-2023 Hemoglobin glycosylated a1c [facility]; [facility] Work Phone: Start: 01-19-2023 Procedure Education [facility]; [facility] Work Phone: Start: 01-19-2023 Provider Instructions for Treatment [facility]; [facility] Work Phone: Start: 01-05-2023 CBC, PLATELETS & MANUAL DIFF (64510) [facility]; [facility] Work [...] Work Phone: Start: 01-05-2023 Lipid panel [facility]; [facility] Work Phone: Start: 09-22-2022 Procedure Education [facility]; [facility] Work Phone: Start: 09-22-2022 Provider Instructions for Treatment [facility]; [facility] Work Phone: Start: 08-12-2022 Procedure Education [facility] Work Phone: Start: 08-12-2022 Provider Instructions for Treatment [facility]; [facility] Work Phone: Start: 07-07-2022 Procedure Education [facility]; [facility] Work Phone: [...] next OV Start: 05-28-2022 Lipid panel [facility]; [facility] Work Phone: Comment on above: prior to next OV Start: 05-26-2022 Procedure Education [facility]; [facility] Work Phone: Start: 05-26-2022 Provider Instructions for Treatment [facility]; [facility] Work Phone: Start: 05-19-2022 MG Breast - bilateral Screening [facility] Work Phone: Start: 05-19-2022 Screening mammography SCRN MAMM (CAD)W/SHELIA BILAT [facility] Work Phone: Start: 02-27-2022 Procedure Education [facility]; [facility] Work Phone: Start: 02-27-2022 Provider Instructions for Treatment [facility]; [facility] Work Phone: Start: 11-18-2021 Procedure Education [facility]; [facility] Work Phone: Start: 11-18-2021 Provider Instructions for Treatment [facility]; [facility] Work Phone: Start: 11-18-2021 Hepatic function panel HEPATIC FUNCTION PANEL (71418) [facility]; [facility] Work Phone: Comment on above: January 2022 Start: 11-18-2021 Blood count complete automated CBC & PLATELETS (AUTO) (78423) [facility]; [facility] Work Phone: Comment on above: January 2022 Start: 08-13-2021 Procedure Education [facility]; [facility] Work Phone: Start: 08-13-2021 Provider Instructions for Treatment [facility]; [facility] Work Phone: Start: 03-31-2021 Blood count complete automated [facility]; [facility] Work Phone: Start: 03-19-2021 Procedure Education [facility]; [facility] Work Phone: Start: 03-19-2021 Provider Instructions for Treatment [facility]; [facility] Work Phone: Start: 03-19-2021 Hemoglobin glycosylated a1c HgA1C , Office (68702) [facility]; [facility] Work Phone: Start: 03-19-2021 Gluc bld gluc mntr dev cleared fda spec home use Blood Glucose , Office (15447) [facility]; [facility] Work Phone: Start: 03-13-2021 Assay of free thyroxine [facility] Work Phone: Start: 03-13-2021 Free T4 [Mass/Vol] T4, FREE (THYROXINE) (51419) [facility]; [facility] Work Phone: Start: 03-13-2021 Assay of triiodothyronine t3 free [facility]; [facility] Work Phone: Start: 03-13-2021 Blood count complete auto&auto difrntl wbc [facility]; [facility] Work Phone: Start: 03-13-2021 Comprehensive metabolic panel [facility]; [facility] Work Phone: Start: 03-13-2021 Lipid panel LIPID PANEL (46883) [facility] Work Phone: Start: 03-13-2021 Cobalamin (Vitamin B12) [Mass/Vol] VITAMIN B12 AND FOLATES (46630) [facility]; [facility] Work Phone: Start: 03-13-2021 25 hydroxy includes fractions if performed CALCIFEDIOL (27800) [facility]; [facility] Work Phone: Start: 03-13-2021 TSH Qn TSH (THYROID STIMULATING HORMONE) (11121) [facility]; [facility] Work Phone: Start: 02-24-2021 Procedure Education [facility]; [facility] Work Phone: Start: 08-09-2020 Iaadiadoo influenza [facility] Work Phone: Start: 2020 RSV Vaccine (1 - 1-dose 75+ series) RSV Vaccine (1 - 1-dose 75+ series) [facility] Start: 06-10-2020 Procedure Education [facility] Work Phone: Start: 06-10-2020 Provider Instructions for Treatment [facility] Work Phone: Start: 06-10-2020 Lipid panel [facility] Work Phone: Comment on above: Aug 12 Start: 06-10-2020 Cobalamin (Vitamin B12) [Mass/Vol] VITAMIN B12 AND FOLATES (99182) [facility] Work Phone: Start: 06-10-2020 25 hydroxy includes fractions if performed CALCIFEDIOL (23382) [facility] Work Phone: Start: 06-10-2020 HbA1c (Bld) [Mass fraction] HGB A1C (36997) [facility] Work Phone: Start: 05-14-2020 TSH Qn TSH (THYROID STIMULATING HORMONE) (78517) [facility] Work Phone: Start: 05-14-2020 Comprehensive metabolic panel Metabolic Panel, Comprehensive (49127) [facility] Work Phone: Start: 05-14-2020 Lipid panel LIPID PANEL (09678) [facility] Work Phone: Start: 02-23-2020 Procedure Education [facility] Work Phone: Start: 02-23-2020 Provider Instructions for Treatment [facility] Work Phone: Start: 02-21-2020 Procedure Education [facility] Work Phone: Start: 02-21-2020 Provider Instructions for Treatment [facility] Work Phone: Start: 02-16-2020 Procedure Education [facility] Work Phone: Start: 02-16-2020 Provider Instructions for Treatment [facility] Work Phone: Start: 02-05-2020 Assay of thyroid stimulating hormone tsh TSH (THYROID STIMULATING HORMONE) ([id number]) [facility] Work Phone: Start: 02-05-2020 TSH Qn TSH (THYROID STIMULATING HORMONE) ([id number]) [facility] Work Phone: Start: 12-14-2019 Patient Education [facility] Work Phone: Start: 12-14-2019 Procedure Education [facility] Work Phone: Start: 12-14-2019 Provider Instructions for Treatment [facility] Work Phone: Start: 11-06-2019 Procedure Education [facility] Work Phone: Start: 11-06-2019 Provider Instructions for Treatment [facility] Work Phone: Start: 10-31-2019 Lipid panel LIPID PANEL (40119) [facility] Work Phone: Start: 10-31-2019 Comprehensive metabolic panel Metabolic Panel, Comprehensive (65214) [facility] Work Phone: Start: 10-31-2019 Blood count complete auto&auto difrntl wbc CBC, Platelets & Auto Diff (24774) [facility] Work Phone: Start: 10-31-2019 TSH Qn TSH (32082) [facility] Work Phone: Start: 08-28-2019 Procedure Education [facility] Work Phone: Start: 08-28-2019 Provider Instructions for Treatment [facility] Work Phone: Start: 04-03-2019 Procedure Education [facility] Work Phone: Start: 04-03-2019 Gluc bld gluc mntr dev cleared fda spec home use [facility] Work Phone: Comment on above: 143 Start: 04-03-2019 Glucose [Mass/Vol] Blood Glucose , Office (56184) [facility] Work Phone: Comment on above: 143 Start: 04-03-2019 HbA1c (Bld) [Mass fraction] HgA1C , Office (82692) [facility] Work Phone: Comment on above: 6.8 Start: 04-03-2019 Hemoglobin glycosylated a1c [facility] Work Phone: Comment on above: 6.8 Start: 03-13-2019 Procedure Education [facility] Work Phone: Start: 03-13-2019 Provider Instructions for Treatment [facility] Work Phone: Start: 03-13-2019 Thyrotropin Qn TSH (THYROID STIMULATING HORMONE) (83643) [facility] Work Phone: Start: 02-27-2019 Assay of thyroid stimulating hormone tsh TSH (THYROID STIMULATING HORMONE) ([id number]) [facility] Work Phone: Start: 02-27-2019 Thyrotropin Qn TSH (THYROID STIMULATING HORMONE) (75676) [facility] Work Phone: Start: 01-19-2019 Procedure Education [facility] Work Phone: Start: 01-19-2019 Provider Instructions for Treatment [facility] Work Phone: Start: 10-05-2018 Procedure Education [facility] Work Phone: Start: 10-05-2018 Provider Instructions for Treatment [facility] Work Phone: Start: 10-05-2018 Thyrotropin Qn TSH (THYROID STIMULATING HORMONE) (85787) [facility] Work Phone: Comment on above: get done week of Nov 21 Start: 09-16-2018 Procedure Education [facility] Work Phone: Start: 06-27-2018 Procedure Education [facility] Work Phone: Start: 06-27-2018 Provider Instructions for Treatment [facility] Work Phone: Start: 06-27-2018 25 hydroxy includes fractions if performed CALCIFEDIOL (79374) [facility] Work Phone: Comment on above: August 2018 Start: 06-27-2018 Comprehensive metabolic panel Metabolic Panel, [facility] (15144) [facility] Work Phone: Comment on above: August 2018 Start: 06-27-2018 Alpha-fetoprotein serum [id number] M (39992) [facility] Work Phone: Comment on above: Aug 2018 Start: 06-27-2018 Thyrotropin Qn TSH (THYROID STIMULATING HORMONE) ([id number]) [facility] Work Phone: Comment on above: August 2018 Start: 06-14-2018 Procedure Education [facility] Work Phone: Start: 06-14-2018 Provider Instructions for Treatment [facility] Work Phone: Start: 05-02-2018 25 hydroxy includes fractions if performed CALCIFEDIOL (71807) [facility] Work Phone: Start: 05-02-2018 Cobalamin (Vitamin B12) mass conc VITAMIN B12 AND FOLATES (07219) [facility] Work Phone: Start: 05-02-2018 Cyanocobalamin vitamin b-12 VITAMIN B12 AND FOLATES (29692) [facility] Work Phone: Start: 05-02-2018 Assay of free thyroxine T4, FREE (THYROXINE) ([id number]) [facility] Work Phone: Start: 05-02-2018 T4 free mass conc T4, FREE (THYROXINE) ([id number]) [facility] Work Phone: Start: 05-02-2018 Assay of triiodothyronine t3 free T3, FREE (TRIDOTHYRONINE) ([id number]) [facility] Work Phone: Start: 05-02-2018 T3 free mass conc T3, FREE (TRIDOTHYRONINE) (31640) [facility] Work Phone: Start: 05-02-2018 Assay of thyroid stimulating hormone tsh TSH (71329) [facility] Work Phone: Start: 05-02-2018 Thyrotropin Qn TSH (28599) [facility] Work Phone: Start: 04-20-2018 Urinalysis qual/semiquant except immunoassays [facility] Work Phone: Start: 04-20-2018 Culture bacterial quanttative colony count urine [facility] Work Phone: Start: 04-20-2018 Urnls dip stick/tablet rgnt non-auto w/o micrscp [facility] Work Phone: Start: 04-20-2018 Assay of free thyroxine [facility] Work Phone: Start: 04-20-2018 T4 free mass conc T4, FREE (THYROXINE) ([id number]) [facility] Work Phone: Start: 04-20-2018 Assay of triiodothyronine t3 free [facility] Work Phone: Start: 04-20-2018 T3 free mass conc T3, FREE (TRIDOTHYRONINE) (89730) [facility] Work Phone: Start: 04-20-2018 Assay of thyroid stimulating hormone tsh [facility] Work Phone: Start: 04-20-2018 Thyrotropin Qn TSH (THYROID STIMULATING HORMONE) (37900) [facility] Work Phone: Start: 03-25-2018 Assay of thyroid stimulating hormone tsh [facility] Work Phone: Start: 03-25-2018 Thyrotropin Qn TSH (45260) [facility] Work Phone: Start: 03-25-2018 Assay of free thyroxine [facility] Work Phone: Start: 03-25-2018 T4 free mass conc T4, FREE (THYROXINE) ([id number]) [facility] Work Phone: Start: 03-25-2018 Assay of triiodothyronine t3 free [facility] Work Phone: Start: 03-25-2018 T3 free mass conc T3, FREE (TRIDOTHYRONINE) ([id number]) [facility] Work Phone: Start: 03-15-2018 Procedure Education [facility] Work Phone: Start: 12-06-2017 Procedure Education [facility] Work Phone: Start: 12-06-2017 Provider Instructions for Treatment [facility] Work Phone: Start: 11-30-2017 Patient Education [facility] Work Phone: Start: 11-30-2017 Provider Instructions for Treatment [facility] Work Phone: Start: 08-10-2017 Procedure Education [facility] Work Phone: Start: 08-10-2017 Provider Instructions for Treatment [facility] Work Phone: Start: 05-07-2017 Procedure Education [facility] Work Phone: Start: 02-09-2017 Lipid panel [facility] Work Phone: Comment on above: (repeat in Jul 2017 Start: 02-09-2017 Alpha-fetoprotein serum [facility] Work Phone: Comment on above: Repeat Jul 2017 Start: 02-09-2017 Comprehensive metabolic panel [facility] Work Phone: Comment on above: repeat in Jul 2017 Start: 02-09-2017 Provider Instructions for Treatment [facility] Work Phone: Start: 12-09-2016 Procedure Education [facility] Work Phone: Start: 12-09-2016 Provider Instructions for Treatment [facility] Work Phone: Start: 10-13-2016 Procedure Education [facility] Work Phone: Start: 09-30-2016 Procedure Education [facility] Work Phone: Start: 09-30-2016 Provider Instructions for Treatment [facility] Work Phone: Start: 09-30-2016 Assay of thyroid stimulating hormone tsh [facility] Work Phone: Start: 09-30-2016 Thyrotropin Qn TSH (THYROID STIMULATING HORMONE) ([id number]) [facility] Work Phone: Start: 09-11-2013 Assay of thyroid stimulating hormone tsh [facility] Work Phone: Start: 09-11-2013 Thyrotropin Qn TSH (THYROID STIMULATING HORMONE) ([id number]) [facility] Work Phone: Start: 08-28-2013 Lipid panel [facility] Work Phone: Comment on above: Draw cholesterol fasting Oct 09 Start: 08-28-2013 Assay of free thyroxine [facility] Work Phone: Comment on above: draw Oct 09 Start: 08-28-2013 T4 free mass conc T4, FREE (THYROXINE) (28804) [facility] Work Phone: Comment on above: draw Oct 09 Start: 08-28-2013 Assay of thyroid stimulating hormone tsh [facility] Work Phone: Comment on above: draw Oct 09 Start: 08-28-2013 Thyrotropin Qn TSH (67886) [facility] Work Phone: Comment on above: [...] A1c/Hemoglobin.total mass fraction (Bld) HgA1C , Office (32903) [facility] Work Phone: Start: 03-06-2013 Hemoglobin glycosylated a1c [facility] Work Phone: Start: 03-06-2013 Provider Instructions for Treatment [facility] Work Phone: Start: 03-07-2012 Provider Instructions for Treatment [facility] Work Phone: Start: 2010 Pneumococcal Vaccine: 65+ (1 of 1 - PCV) Pneumococcal Vaccine: 65+ (1 of 1 - PCV) [facility] Start: 2010 Screening for osteoporosis Bone Density Screening [facility] Start: 10-18-2009 Provider Instructions for Treatment [facility] Work Phone: Start: 10-18-2009 Lipid panel [facility] Work Phone: Start: 10-18-2009 Glucose mass conc Glucose, PP/2 Hour (81517) [facility] Work Phone: Start: 10-18-2009 Glucose quantitative blood xcpt reagent strip [facility] Work Phone: Start: 10-18-2009 Blood occult fecal hgb deter ia qual feces 1-3 [facility] Work Phone: Comment on above: dispense Start: 1995 Shingrix Vaccine (1 of 2) Shingrix Vaccine (1 of 2) [facility] Start: 1990 Diabetes Screening Diabetes Screening [facility] Start: 1964 Urine microalbumin profile DTaP,Tdap,Td Vaccine (1 - Tdap) [facility] Start: 1963 Anxiety Screening Anxiety Screening [facility] Start: 1963 Depression Screening Depression Screening [facility] Work Phone: [...] Date Immunization Notes Care Provider Aruna [facility] 05-31-2025 tetanus toxoid, reduced diphtheria toxoid, and acellular pertussis vaccine, adsorbed Karen Alcazar TELEVISION SERVICE ENGINEER-C Work Phone: [facility] 02-14-2021 COVID-19 original vaccine, age 12+ yr, monovalent (PFIZER-BIONTECH - PURPLE TOP) Celena Kaba ASSOCIATION EXECUTIVE.ANALYTICS ANALYST Work Phone: [facility] 01-27-2021 COVID-19 (Pfizer) Marcia Walker ANALYTICS ANALYST Work Phone: [facility]; [facility] Work Phone: 01-24-2021 COVID-19 original vaccine, age 12+ yr, monovalent (PFIZER-BIONTECH - PURPLE TOP) Celena Kaba ASSOCIATION EXECUTIVE.ANALYTICS ANALYST Work Phone: [facility] Work Phone: Payers Date Payer Category Payer Self-pay [id number] 2017 Medicare [id number] 2017 Medicare [id number] 2010 Medicare [id number] 2005 Unknown [id number] 1945 Unknown [id number] 2.16.84 [id number] Unknown Unknown [id number] 2.16.8 [id number] Unknown [id number] 2.16.8 [id number] Unknown [id number] 2.16.8 [id number] Unknown [id number] 2.16.8 [id number] Unknown [id number] 2.16.8 [id number] Unknown [id number] 2.16.8 [id number] Unknown [id number] 2.16.8 [id number] Unknown [id number] 2.16.8 [id number] Social History Date Type Detail Facility Start: 11-06-2019 End: 11-03-2020 Alcohol Use Never smoker [facility] Work Phone: Comment on above: Moderate alcohol use 2 qd Light Lives with spouse none Tobacco use: Never smoker. [facility] Work Phone: Comment on above: 03/07/12 Tobacco use: Tobacco use: [facility] Work Phone: Comment on above: 03/07/12 Start: 05-05-2019 [facility] Start: 03-07-2019 Non-smoker [facility] Start: 1945 Sex Assigned At Female W [facility] Start: 09-16-2018 End: 05-31-2025 Tobacco smoking status NHIS Never smoked tobacco [facility] Start: 09-16-2018 Tobacco use and exposure Smokeless tobacco non-user [facility] Start: 11-06-2019 Alcoholic beverage intake Current non-drinker of alcohol (finding) [facility] Start: 11-06-2019 End: 11-03-2020 Tobacco use panel [facility] Adult Depression Screening Assessment 2 [facility] Start: 1945 Sex assigned at Not on file [facility] Medical Equipment Procedure Code Equipment Code Equipment [...] 90 {Strip} Refills: 3 Ordered: 30-Sep-2016 Slarb DIESEL PILE HAMMER OPERATOR, Latrice Start : 30-Sep-2016 Active Start: 09-30-2016 [...] 90 {Strip} Refills: 3 Ordered: 30-Sep-2016 Slarb DIESEL PILE HAMMER OPERATOR, Latrice Start : 30-Sep-2016 Active Start: 09-30-2016 ReliOn Confirm/m icro Test In Vitro Strip 1 (one) Strip Strip test three times daily for 0 days Quantity: 90 {Strip} Refills: 0 Ordered: 30-Sep-2016 Slarb DIESEL PILE HAMMER OPERATOR, Latrice Start : 30-Sep-2016 Active Start: 09-30-2016 [...] 90 {Strip} Refills: 3 Ordered: 30-Sep-2016 Slarb DIESEL PILE HAMMER OPERATOR, Latrice Start : 30-Sep-2016 Active Start: 09-30-2016 ReliOn Confirm/m icro Test In Vitro Strip 1 (one) Strip Strip test three times daily for 0 days Quantity: 90 {Strip} Refills: 0 Ordered: 30-Sep-2016 Slarb DIESEL PILE HAMMER OPERATOR, Latrice Start : 30-Sep-2016 Active Start: 09-30-2016 NovoFine 32G X 6 MM Miscellaneous 1 (one) Misc once daily for 0 days Quantity: 1 {Box} Refills: 5 Ordered: 19-Jan-2019 Aaron ANALYTICS ANALYST, Carmen Aaron BRICEÑO, Marcia Orona Start : 19-Jan-2019 Active Start: 01-19-2019 ReliOn Blood Glu cose Test In Vitro Strip 1 (one) Strip Strip test 3 x daily for 0 days Quantity: 90 {Strip} Refills: 3 Ordered: 30-Sep-2016 Slarb DIESEL PILE HAMMER OPERATOR, Latrice Start : 30-Sep-2016 Active Start: 09-30-2016 ReliOn Confirm/m icro Test In Vitro Strip 1 (one) Strip Strip test three times daily for 0 days Quantity: 90 {Strip} Refills: 0 Ordered: 30-Sep-2016 Slarb DIESEL PILE HAMMER OPERATOR, Latrice Start : 30-Sep-2016 Active Start: 09-30-2016 [...] 90 {Strip} Refills: 0 Ordered: 30-Sep-2016 Slarb DIESEL PILE HAMMER OPERATOR, Latrice Start : 30-Sep-2016 Active Start: 09-30-2016 [...] 90 {Strip} Refills: 3 Ordered: 30-Sep-2016 Slarb DIESEL PILE HAMMER OPERATOR, Latrice Start : 30-Sep-2016 Active Start: 09-30-2016 ReliOn Confirm/m icro Test In Vitro Strip 1 (one) Strip Strip test three times daily for 0 days Quantity: 90 {Strip} Refills: 0 Ordered: 30-Sep-2016 Slarb DIESEL PILE HAMMER OPERATOR, Latrice Start : 30-Sep-2016 Active Start: 09-30-2016 [...] 90 {Strip} Refills: 3 Ordered: 30-Sep-2016 Slarb DIESEL PILE HAMMER OPERATOR, Latrice Start : 30-Sep-2016 Active Start: 09-30-2016 ReliOn Confirm/m icro Test In Vitro Strip 1 (one) Strip Strip test three times daily for 0 days Quantity: 90 {Strip} Refills: 0 Ordered: 30-Sep-2016 Slarb DIESEL PILE HAMMER OPERATOR, Latrice Start : 30-Sep-2016 Active Start: 09-30-2016 [...] 90 {Strip} Refills: 3 Ordered: 30-Sep-2016 Slarb DIESEL PILE HAMMER OPERATOR, Latrice Start : 30-Sep-2016 Active Start: 09-30-2016 ReliOn Confirm/m icro Test In Vitro Strip 1 (one) Strip Strip test three times daily for 0 days Quantity: 90 {Strip} Refills: 0 Ordered: 30-Sep-2016 Slarb DIESEL PILE HAMMER OPERATOR, Latrice Start : 30-Sep-2016 Active Start: 09-30-2016 NovoFine 32G X 6 MM Miscellaneous 1 (one) Misc once daily for 0 days Quantity: 1 {Box} Refills: 5 Ordered: 19-Jan-2019 Cimeryla ANALYTICS ANALYST, Carmen [facility] Start : 19-Jan-2019 Active Start: 01-19-2019 ReliOn Blood Glu cose Test In Vitro Strip 1 (one) Strip Strip test 3 x daily for 0 days Quantity: 90 {Strip} Refills: 3 Ordered: 30-Sep-2016 Slarb DIESEL PILE HAMMER OPERATOR, Latrice Start : 30-Sep-2016 Active Start: 09-30-2016 ReliOn Confirm/m icro Test In Vitro Strip 1 (one) Strip Strip test three times daily for 0 days Quantity: 90 {Strip} Refills: 0 Ordered: 30-Sep-2016 Slarb DIESEL PILE HAMMER OPERATOR, Latrice Start : 30-Sep-2016 Active Start: 09-30-2016 NovoFine 32G X 6 MM Miscellaneous 1 (one) Misc once daily for 0 days Quantity: 1 {Box} Refills: 5 Ordered: 19-Jan-2019 Dominiqueesa ANALYTICS ANALYST, Carmen [facility] Start : 19-Jan-2019 Active Start: 01-19-2019 ReliOn Blood Glu cose Test In Vitro Strip 1 (one) Strip Strip test 3 x daily for 0 days Quantity: 90 {Strip} Refills: 3 Ordered: 30-Sep-2016 Slarb DIESEL PILE HAMMER OPERATOR, Latrice Start : 30-Sep-2016 Active Start: 09-30-2016 ReliOn Confirm/m icro Test In Vitro Strip 1 (one) Strip Strip test three times daily for 0 days Quantity: 90 {Strip} Refills: 0 Ordered: 30-Sep-2016 Slarb DIESEL PILE HAMMER OPERATOR, Latrice Start : 30-Sep-2016 Active Start: 09-30-2016 [...] 90 {Strip} Refills: 3 Ordered: 30-Sep-2016 Slarb DIESEL PILE HAMMER OPERATOR, Latrice Start : 30-Sep-2016 Active Start: 09-30-2016 ReliOn Confirm/m icro Test In Vitro Strip 1 (one) Strip Strip test three times daily for 0 days Quantity: 90 {Strip} Refills: 0 Ordered: 30-Sep-2016 Slarb DIESEL PILE HAMMER OPERATOR, Latrice Start : 30-Sep-2016 Active Start: 09-30-2016 NovoFine 32G X 6 MM Miscellaneous 1 (one) Misc once daily for 0 days Quantity: 1 {Box} Refills: 5 Ordered: 19-Jan-2019 Aaron NAVARRO Marcia Walker ANALYTICS ANALYST, Marcia Orona Start : 19-Jan-2019 Active [...] 90 {Strip} Refills: 0 Ordered: 30-Sep-2016 Slarb DIESEL PILE HAMMER OPERATOR, Latrice Start : 30-Sep-2016 Active Start: 09-30-2016 [...] 90 {Strip} Refills: 3 Ordered: 30-Sep-2016 Slarb DIESEL PILE HAMMER OPERATOR, Latrice Start : 30-Sep-2016 Active Start: 09-30-2016 [...] Ordered: 19-Jan-2019 Aaron BRICEÑO, Marcia Orona Dominiquemeryltarsha ANALYTICS ANALYST, Carmen Start : 19-Jan-2019 Active Start: [...] 5 Ordered: 19-Jan-2019 Aaron BRICEÑO Marcia Walker ANALYTICS ANALYST, Marcia Orona Start : 19-Jan-2019 Active Start: 01-19-2019 ReliOn Blood Glu cose Test In Vitro Strip 1 (one) Strip Strip test 3 x daily for 0 days Quantity: 90 {Strip} Refills: 3 Ordered: 30-Sep-2016 Slarb DIESEL PILE HAMMER OPERATOR, Latrice Start : 30-Sep-2016 Active Start: 09-30-2016 ReliOn Confirm/m icro Test In Vitro Strip 1 (one) Strip Strip test three times daily for 0 days Quantity: 90 {Strip} Refills: 0 Ordered: 30-Sep-2016 Slarb DIESEL PILE HAMMER OPERATOR, Latrice Start : 30-Sep-2016 Active Start: 09-30-2016 NovoFine 32G X 6 MM Miscellaneous 1 (one) Misc once daily for 0 days Quantity: 1 {Box} Refills: 5 Ordered: 19-Jan-2019 Aaron NAVARRO, Marcia Walker ANALYTICS ANALYST, Marcia Orona Start : 19-Jan-2019 Active Start: 01-19-2019 ReliOn Blood Glu cose Test In Vitro Strip 1 (one) Strip Strip test 3 x daily for 0 days Quantity: 90 {Strip} Refills: 3 Ordered: 30-Sep-2016 Slarb DIESEL PILE HAMMER OPERATOR, Latrice Start : 30-Sep-2016 Active Start: 09-30-2016 ReliOn Confirm/m icro Test In Vitro Strip 1 (one) Strip Strip test three times daily for 0 days Quantity: 90 {Strip} Refills: 0 Ordered: 30-Sep-2016 Slarb DIESEL PILE HAMMER OPERATOR, Latrice Start : 30-Sep-2016 Active Start: 09-30-2016 NovoFine 32G X 6 MM Miscellaneous 1 (one) Misc once daily for 0 days Quantity: 1 {Box} Refills: 5 Ordered: 19-Jan-2019 Aaron ANALYTICS ANALYST, Marcia Walker [facility], Marcia Orona Start : 19-Jan-2019 Active Start: 01-19-2019 ReliOn Blood Glu cose Test In Vitro Strip 1 (one) Strip Strip test 3 x daily for 0 days Quantity: 90 {Strip} Refills: 3 Ordered: 30-Sep-2016 Slarb DIESEL PILE HAMMER OPERATOR, Latrice Start : 30-Sep-2016 Active Start: 09-30-2016 ReliOn Confirm/m icro Test In Vitro Strip 1 (one) Strip Strip test three times daily for 0 days Quantity: 90 {Strip} Refills: 0 Ordered: 30-Sep-2016 Slarb DIESEL PILE HAMMER OPERATOR, Latrice Start : 30-Sep-2016 Active Start: 09-30-2016 [...] 90 {Strip} Refills: 3 Ordered: 30-Sep-2016 Slarb DIESEL PILE HAMMER OPERATOR, Latrice Start : 30-Sep-2016 Active Start: 09-30-2016 ReliOn Confirm/m icro Test In Vitro Strip 1 (one) Strip Strip test three times daily for 0 days Quantity: 90 {Strip} Refills: 0 Ordered: 30-Sep-2016 Slarb DIESEL PILE HAMMER OPERATOR, Latrice Start : 30-Sep-2016 Active Start: 09-30-2016 [...] 90 {Strip} Refills: 3 Ordered: 30-Sep-2016 Slarb DIESEL PILE HAMMER OPERATOR, Latrice Start : 30-Sep-2016 Active Start: 09-30-2016 ReliOn Confirm/m icro Test In Vitro Strip 1 (one) Strip Strip test three times daily for 0 days Quantity: 90 {Strip} Refills: 0 Ordered: 30-Sep-2016 Slarb DIESEL PILE HAMMER OPERATOR, Latrice Start : 30-Sep-2016 Active Start: 09-30-2016 [...] 90 {Strip} Refills: 0 Ordered: 30-Sep-2016 Slarb DIESEL PILE HAMMER OPERATOR, Latrice Start : 30-Sep-2016 Active Start: 09-30-2016 [...] 90 {Strip} Refills: 3 Ordered: 30-Sep-2016 Slarb DIESEL PILE HAMMER OPERATOR, Latrice Start : 30-Sep-2016 Active Start: 09-30-2016 ReliOn Confirm/m icro Test In Vitro Strip 1 (one) Strip Strip test three times daily for 0 days Quantity: 90 {Strip} Refills: 0 Ordered: 30-Sep-2016 Slarb DIESEL PILE HAMMER OPERATOR, Latrice Start : 30-Sep-2016 Active Start: 09-30-2016 NovoFine 32G X 6 MM Miscellaneous 1 (one) Misc once daily for 0 days Quantity: 1 {Box} Refills: 5 Ordered: 19-Jan-2019 Aaron ANALYTICS ANALYST, Carmen Aaron BRICEÑO, Carmen Start : 19-Jan-2019 Active Start: 01-19-2019 ReliOn Blood Glu cose Test In Vitro Strip 1 (one) Strip Strip test 3 x daily for 0 days Quantity: 90 {Strip} Refills: 3 Ordered: 30-Sep-2016 Slarb DIESEL PILE HAMMER OPERATOR, Latrice Start : 30-Sep-2016 Active Start: 09-30-2016 ReliOn Confirm/m icro Test In Vitro Strip 1 (one) Strip Strip test three times daily for 0 days Quantity: 90 {Strip} Refills: 0 Ordered: 30-Sep-2016 Slarb DIESEL PILE HAMMER OPERATOR, Latrice Start : 30-Sep-2016 Active Start: 09-30-2016 NovoFine 32G X 6 MM Miscellaneous 1 (one) Misc once daily for 0 days Quantity: 1 {Box} Refills: 5 Ordered: 19-Jan-2019 Reneaa ANALYTICS ANALYST, Carmen Reneaa ANALYTICS ANALYST, Carmen Start : 19-Jan-2019 Active Start: 01-19-2019 ReliOn Blood Glu cose Test In Vitro Strip 1 (one) Strip Strip test 3 x daily for 0 days Quantity: 90 {Strip} Refills: 3 Ordered: 30-Sep-2016 Slarb DIESEL PILE HAMMER OPERATOR, Latrice Start : 30-Sep-2016 Active Start: 09-30-2016 ReliOn Confirm/m icro Test In Vitro Strip 1 (one) Strip Strip test three times daily for 0 days Quantity: 90 {Strip} Refills: 0 Ordered: 30-Sep-2016 Slarb DIESEL PILE HAMMER OPERATOR, Latrice Start : 30-Sep-2016 Active Start: 09-30-2016 NovoFine 32G X 6 MM Miscellaneous 1 (one) Misc once daily for 0 days Quantity: 1 {Box} Refills: 5 Ordered: 19-Jan-2019 Aaron BRICEÑO, Carmen Aaron ANALYTICS ANALYST, Carmen Start : 19-Jan-2019 Active Start: 01-19-2019 ReliOn Blood Glu cose Test In Vitro Strip 1 (one) Strip Strip test 3 x daily for 0 days Quantity: 90 {Strip} Refills: 3 Ordered: 30-Sep-2016 Slarb DIESEL PILE HAMMER OPERATOR, Latrice Start : 30-Sep-2016 Active Start: 09-30-2016 ReliOn Confirm/m icro Test In Vitro Strip 1 (one) Strip Strip test three times daily for 0 days Quantity: 90 {Strip} Refills: 0 Ordered: 30-Sep-2016 Slarb DIESEL PILE HAMMER OPERATOR, Latrice Start : 30-Sep-2016 Active Start: 09-30-2016 NovoFine 32G X 6 MM Miscellaneous 1 (one) Misc once daily for 0 days Quantity: 1 {Box} Refills: 5 Ordered: 19-Jan-2019 Aaron BRICEÑO, [facility] Start : 19-Jan-2019 Active Start: 01-19-2019 ReliOn Blood Glu cose Test In Vitro Strip 1 (one) Strip Strip test 3 x daily for 0 days Quantity: 90 {Strip} Refills: 3 Ordered: 30-Sep-2016 Slarb DIESEL PILE HAMMER OPERATOR, Latrice Start : 30-Sep-2016 Active Start: 09-30-2016 ReliOn Confirm/m icro Test In Vitro Strip 1 (one) Strip Strip test three times daily for 0 days Quantity: 90 {Strip} Refills: 0 Ordered: 30-Sep-2016 Slarb DIESEL PILE HAMMER OPERATOR, Latrice Start : 30-Sep-2016 Active Start: 09-30-2016 [...] 90 {Strip} Refills: 3 Ordered: 30-Sep-2016 Slarb DIESEL PILE HAMMER OPERATOR, Latrice Start : 30-Sep-2016 Active Start: 09-30-2016 ReliOn Confirm/m icro Test In Vitro Strip 1 (one) Strip Strip test three times daily for 0 days Quantity: 90 {Strip} Refills: 0 Ordered: 30-Sep-2016 Slarb DIESEL PILE HAMMER OPERATOR, Latrice Start : 30-Sep-2016 Active Start: 09-30-2016 [...] 90 {Strip} Refills: 3 Ordered: 30-Sep-2016 Slarb DIESEL PILE HAMMER OPERATOR, Latrice Start : 30-Sep-2016 Active Start: 09-30-2016 ReliOn Confirm/m icro Test In Vitro Strip 1 (one) Strip Strip test three times daily for 0 days Quantity: 90 {Strip} Refills: 0 Ordered: 30-Sep-2016 Slarb DIESEL PILE HAMMER OPERATOR, Latrice Start : 30-Sep-2016 Active Start: 09-30-2016 NovoFine 32G X 6 MM Miscellaneous 1 (one) Misc once daily for 0 days Quantity: 1 {Box} Refills: 5 Ordered: 19-Jan-2019 Aaron ANALYTICS ANALYST, Marcia Orona [facility], Carmen Start : 19-Jan-2019 Active Start: 01-19-2019 ReliOn Blood Glu cose Test In Vitro Strip 1 (one) Strip Strip test 3 x daily for 0 days Quantity: 90 {Strip} Refills: 3 Ordered: 30-Sep-2016 Slarb DIESEL PILE HAMMER OPERATOR, Latrice Start : 30-Sep-2016 Active Start: 09-30-2016 ReliOn Confirm/m icro Test In Vitro Strip 1 (one) Strip Strip test three times daily for 0 days Quantity: 90 {Strip} Refills: 0 Ordered: 30-Sep-2016 Slarb SLOANE, Latrice Start : 30-Sep-2016 Active Start: 09-30-2016 NovoFine 32G X 6 MM Miscellaneous 1 (one) Misc once daily for 0 days Quantity: 1 {Box} Refills: 5 Ordered: 19-Jan-2019 Reneaa ANALYTICS ANALYST, [facility] Orona Start : 19-Jan-2019 Active Start: 01-19-2019 ReliOn Blood Glu cose Test In Vitro Strip 1 (one) Strip Strip test 3 x daily for 0 days Quantity: 90 {Strip} Refills: 3 Ordered: 30-Sep-2016 Slarb DIESEL PILE HAMMER OPERATOR, Latrice Start : 30-Sep-2016 Active Start: 09-30-2016 ReliOn Confirm/m icro Test In Vitro Strip 1 (one) Strip Strip test three times daily for 0 days Quantity: 90 {Strip} Refills: 0 Ordered: 30-Sep-2016 Slarb DIESEL PILE HAMMER OPERATOR, Latrice Start : 30-Sep-2016 Active Start: 09-30-2016 [...] 90 {Strip} Refills: 3 Ordered: 30-Sep-2016 Slarb DIESEL PILE HAMMER OPERATOR, Latrice Start : 30-Sep-2016 Active Start: 09-30-2016 ReliOn Confirm/m icro Test In Vitro Strip 1 (one) Strip Strip test three times daily for 0 days Quantity: 90 {Strip} Refills: 0 Ordered: 30-Sep-2016 Slarb DIESEL PILE HAMMER OPERATOR, Latrice Start : 30-Sep-2016 Active Start: 09-30-2016 NovoFine 32G X 6 MM Miscellaneous 1 (one) Misc once daily for 0 days Quantity: 1 {Box} Refills: 5 Ordered: 19-Jan-2019 Dominiquedari NAVARRO, Marcia Walker ANALYTICS ANALYST, Carmen Start : 19-Jan-2019 Active Start: 01-19-2019 ReliOn Blood Glu cose Test In Vitro Strip 1 (one) Strip Strip test 3 x daily for 0 days Quantity: 90 {Strip} Refills: 3 Ordered: 30-Sep-2016 Slarb DIESEL PILE HAMMER OPERATOR, Latrice Start : 30-Sep-2016 Active Start: 09-30-2016 ReliOn Confirm/m icro Test In Vitro Strip 1 (one) Strip Strip test three times daily for 0 days Quantity: 90 {Strip} Refills: 0 Ordered: 30-Sep-2016 Slarb DIESEL PILE HAMMER OPERATOR, Latrice Start : 30-Sep-2016 Active Start: 09-30-2016 NovoFine 32G X 6 MM Miscellaneous 1 (one) Misc once daily for 0 days Quantity: 1 {Box} Refills: 5 Ordered: 19-Jan-2019 Aaron BRICEÑO, Carmen Aaron ANALYTICS ANALYST, Carmen Start : 19-Jan-2019 Active Start: 01-19-2019 ReliOn Blood Glu cose Test In Vitro Strip 1 (one) Strip Strip test 3 x daily for 0 days Quantity: 90 {Strip} Refills: 3 Ordered: 30-Sep-2016 Slarb DIESEL PILE HAMMER OPERATOR, Latrice Start : 30-Sep-2016 Active Start: 09-30-2016 [...] {Box} Refills: 5 Ordered: 19-Jan-2019 Reneatarsha BRICEÑOMarcia ANALYTICS ANALYST, Marcia Orona Start : 19-Jan-2019 Active [...] 90 {Strip} Refills: 0 Ordered: 30-Sep-2016 Slarb DIESEL PILE HAMMER OPERATOR, Latrice Start : 30-Sep-2016 Active Start: 09-30-2016 [...] 90 {Strip} Refills: 3 Ordered: 30-Sep-2016 Slarb DIESEL PILE HAMMER OPERATOR, Latrice Start : 30-Sep-2016 Active Start: 09-30-2016 ReliOn Confirm/m icro Test In Vitro Strip 1 (one) Strip Strip test three times daily for 0 days Quantity: 90 {Strip} Refills: 0 Ordered: 30-Sep-2016 Slarb DIESEL PILE HAMMER OPERATOR, Latrice Start : 30-Sep-2016 Active Start: 09-30-2016 NovoFine 32G X 6 MM Miscellaneous 1 (one) Misc once daily for 0 days Quantity: 1 {Box} Refills: 5 Ordered: 19-Jan-2019 Marcia Walker Start : 19-Jan-2019 Active Start: 01-19-2019 ReliOn Blood Glu cose Test In Vitro Strip 1 (one) Strip Strip test 3 x daily for 0 days Quantity: 90 {Strip} Refills: 3 Ordered: 30-Sep-2016 Slarb DIESEL PILE HAMMER OPERATOR, Latrice Start : 30-Sep-2016 Active Start: 09-30-2016 ReliOn Confirm/m icro Test In Vitro Strip 1 (one) Strip Strip test three times daily for 0 days Quantity: 90 {Strip} Refills: 0 Ordered: 30-Sep-2016 Slarb DIESEL PILE HAMMER OPERATOR, Latrice Start : 30-Sep-2016 Active Start: 09-30-2016 NovoFine 32G X 6 MM Miscellaneous 1 (one) Misc once daily for 0 days Quantity: 1 {Box} Refills: 5 Ordered: 19-Jan-2019 Marcia Walker Start : 19-Jan-2019 Active Start: 01-19-2019 ReliOn Blood Glu cose Test In Vitro Strip 1 (one) Strip Strip test 3 x daily for 0 days Quantity: 90 {Strip} Refills: 3 Ordered: 30-Sep-2016 Slarb DIESEL PILE HAMMER OPERATOR, Latrice Start : 30-Sep-2016 Active Start: 09-30-2016 ReliOn Confirm/m icro Test In Vitro Strip 1 (one) Strip Strip test three times daily for 0 days Quantity: 90 {Strip} Refills: 0 Ordered: 30-Sep-2016 Slarb DIESEL PILE HAMMER OPERATOR, Latrice Start : 30-Sep-2016 Active Start: 09-30-2016 ReliOn Blood Glu cose Test In Vitro Strip 1 (one) Strip Strip test 3 x daily for 0 days Quantity: 90 {Strip} Refills: 3 Ordered: 30-Sep-2016 Slarb DIESEL PILE HAMMER OPERATOR, Latrice Start : 30-Sep-2016 Active Start: 09-30-2016 ReliOn Confirm/m icro Test In Vitro Strip 1 (one) Strip Strip test three times daily for 0 days Quantity: 90 {Strip} Refills: 0 Ordered: 30-Sep-2016 Slarb DIESEL PILE HAMMER OPERATOR, Latrice Start : 30-Sep-2016 Active Start: 09-30-2016 [...] Note Facility 05-31-2025 Radiology Diagnostic study note [facility] [address] [place], [place] [id number] Spine Cervical without Contras MR#: [id number] Acct: [id number] Name: KAREN VILLALOBOS Rep #: [id number] : 1945 F 79 From: Maureen Marie MD PCP: ADRIANO Burgess Status: REG E R Study:Spine Cervical without Contras Date of Exam: 05/31/25 Exam# [id number] Ordering Dr: Kelvin Butt DO EXAM: CT [...] 2. Degenerative changes as above. Reading Location: [facility] CC: TELEVISION SERVICE ENGINEER-C Karen Alcazar; Dr. Kelvin Butt, ~ Insert Cutter: Signed [facility] 05-31-2025 Radiology Diagnostic study note [facility] [address] [place], [place] [address] Sinus/Facial Bone MR#: [id number] Acct: [id number] Name: KAREN VILLALOBOS Rep #: [id number] : 1945 F 79 From: Sebastian Gomez MD PCP: ADRIANO Burgess Status: REG E R Study:Sinus/Facial Bone Date of Exam: Exam# [id number] Ordering Dr: Kelvin Butt DO PROCEDURE: SINUS/FACIAL [...] no underlying fracture. Reading Location: [facility] CC: TELEVISION SERVICE ENGINEER-C Karen Alcazar; DO Anthony Keith Insert Cutter: Signed [facility] 05-31-2025 Radiology Diagnostic study note [facility] [address] [place], [place] [address] Shoulder min 2 Views MR#: [id number] Acct: [id number] Name: KAREN VILLALOBOS Rep #: [id number] : 1945 F 79 From: Sebastian Gomez MD PCP: ADRIANO Burgess Status: REG E R Study:Shoulder min 2 Views Date of Exam: 05/31/25 Exam# [id number] Ordering Dr: Kelvin Butt DO PROCEDURE: SHOULDER [...] ADRIANO Alcazar; Dr. Kelvin Butt DO ~ Insert Cutter: Signed [facility] 05-31-2025 Radiology Diagnostic study note [facility] Services [address] [place] [id number] Brain/Head without Contrast MR#: [id number] Acct: [id number] Name: KAREN VILLALOBOS Rep #: [id number] : 1945 F 79 From: Sebastian Gomez MD PCP: ADRAINO Burgess Status: REG E R Study:Brain/Head without Contrast Date of Exa m: 05/31/25 Exam# [id number] Ordering Dr: Kelvin Butt DO EXAM: NONCONTRAST [...] ADRIANO Alcazar; Dr. Kelvin Butt, DO ~ Insert Cutter: Signed [facility] 11-01-2024 Telephone encounter Note A copy of this note was faxed to Karen Alcazar CNP. Shavonne Zuluaga LPN [facility] 11-01-2024 Miscellaneous Notes A copy of [...] with a physician. Thank you. Celena Kaba APRN.ANALYTICS ANALYST documented in this encounter [facility] 11-01-2024 Telephone encounter Note Received a [...] with a physician. Thank you. Celena Kaba APRN.ANALYTICS ANALYST [facility] Work Phone: Evaluation note No assessment inform ation available [facility] Work Phone: Instructions Name Patient Instructions Indication:Acute [...] Instructions for Treatment DISCONTINUED - LIPID PANEL (54893) Indication:Hypercholesteremia Start:13-Oct-20 Instruction Type:Patient Education DISCONTINUED - Glucose, PP/2 Hour (83639) Indication:Family history of diabetes mellitus Start:13-Oct-20 Instruction Type:Patient Education DISCONTINUED - Hemoglobin Glyclated (HGB A1C) (42515) Indication:Family history of diabetes mellitus Start:13-Oct-20 Instruction [...] for Treatment DISCONTINUED - LIPID PANEL ( 91726) Indication:Hypercholesteremia Start:13-Oct-2016 Instruction Type:Patient Education DISCONTINUED - Glucose, PP/2 Hour (64004) Indication:Family history of diabetes mellitus Start:13-Oct-2016 Instruction Type:Patient Education DISCONTINUED - Hemoglobin Glyclated (HGB A1C) (27796) Indication:Family history of diabetes mellitus Start:13-Oct-2016 Instruction [...] for Treatment How to Access Health [employer] Online using Patient Portal and [employer]rd [employer] Apps Indication:Nonsmoker Start:19-Mar-2021 Instruction Type:Patient Education Patient Instructions Indication:Acute sinusitis Start:24-Feb-2021 Instruction Type:Provider Instructions for Treatment How to Access Health Informa tion Online using Patient Portal and [employer] Apps Indication:Acute sinusitis Start:24-Feb-2021 Instruction Type:Patient Education [...] for Treatment DISCONTINUED - LIPID PANEL ( 38688) Indication:Hypercholesteremia Start:13-Oct-2016 Instruction Type:Patient Education DISCONTINUED - Glucose, PP/2 Hour (67898) Indication:Family history of diabetes mellitus Start:13-Oct-2016 Instruction Type:Patient Education DISCONTINUED - Hemoglobin Glyclated (HGB A1C) (45000) Indication:Family history of diabetes mellitus Start:13-Oct-2016 Instruction [...] Instructions for Treatment How to Access Health [employer] using Patient Portal and [employer] Apps Indication:Nonsmoker Start:19-Mar-2021 Instruction Type:Patient [...] for Treatment DISCONTINUED - LIPID PANEL ( 48143) Indication:Hypercholesteremia Start:13-Oct-2016 Instruction Type:Patient Education DISCONTINUED - Glucose, PP/2 Hour (85283) Indication:Family history of diabetes mellitus Start:13-Oct-2016 Instruction Type:Patient Education DISCONTINUED - Hemoglobin Glyclated (HGB A1C) (78687) Indication:Family history of diabetes mellitus Start:13-Oct-2016 Instruction Type:Patient Education How to access health informa [email or web address] online Indication:Uncontrolled type 2 diabetes mellitus without [...] for Treatment How to access health informa [employer] online Indication:Uncontrolled type 2 diabetes mellitus without [...] Instructions for Treatment How to Access Health [employer] Online using Patient Portal and [employer] Apps Indication:Nonsmoker Start:19-Mar-2021 Instruction Type:Patient [...] for Treatment DISCONTINUED - LIPID PANEL ( 38144) Indication:Hypercholesteremia Start:13-Oct-2016 Instruction Type:Patient Education DISCONTINUED - Glucose, PP/2 Hour (06901) Indication:Family history of diabetes mellitus Start:13-Oct-2016 Instruction Type:Patient Education DISCONTINUED - Hemoglobin Glyclated (HGB A1C) (20182) Indication:Family history of diabetes mellitus Start:13-Oct-2016 Instruction [...] Informa tion Online using Patient Portal and [employer] Apps Indication:Nonsmoker Start:19-Mar-2021 Instruction Type:Patient Education Patient Instructions Indication:Acute sinusitis Start:24-Feb-2021 Instruction Type:Provider Instructions for Treatment How to Access Health Informa tion Online using Patient Portal and [employer] Apps Indication:Acute sinusitis Start:24-Feb-2021 Instruction [...] for Treatment DISCONTINUED - LIPID PANEL ( 30485) Indication:Hypercholesteremia Start:13-Oct-2016 Instruction Type:Patient Education DISCONTINUED - Glucose, PP/2 Hour (96359) Indication:Family history of diabetes mellitus Start:13-Oct-2016 Instruction Type:Patient Education DISCONTINUED - Hemoglobin Glyclated (HGB A1C) (36387) Indication:Family history of diabetes mellitus Start:13-Oct-2016 Instruction Type:Patient Education How to access health Community [email or web address] online Indication:Uncontrolled type 2 diabetes mellitus without complication, without long-term current use of insulin Start:13-Oct-2016 Instruction Type:Patient Education How to access health informa [employer] online - Detail Indication:Uncontrolled type 2 diabetes mellitus without complication, without long-term current use of insulin Start:13-Oct-2016 Instruction Type:Patient Education Patient Instructions Indication:Uncontrolled type 2 diabetes mellitus without complication, without long-term current use of insulin Start:13-Oct-2016 Instruction Type:Provider Instructions for Treatment Patient Instructions Indication:Nonsmoker Start:30-Sep-2016 Instruction Type:Provider Instructions for Treatment How to access health Community [employer] online Indication:Uncontrolled type 2 diabetes mellitus without complication, without long-term current use of insulin Start:30-Sep-2016 Instruction Type:Patient Education How to access health informa [employer] online - Detail Indication:Uncontrolled type 2 diabetes [...] Type:Provider Instructions for Treatment How to Access [place] [employer] using Patient Portal and [employer] Apps Indication:Diabetes mellitus type II, controlled, with [...] Instructions for Treatment How to access health Community [employer] online Indication:Uncontrolled type 2 diabetes mellitus without complication, without long-term current use of insulin Start:09-Dec-2016 Instruction Type:Patient Education How to access health informa [employer] online - Detail Indication:Uncontrolled type 2 diabetes mellitus without complication, without long-term current use of insulin Start:09-Dec-2016 Instruction Type:Patient Education Patient Instructions Indication:Uncontrolled type 2 diabetes mellitus without complication, without long-term current use of insulin Start:09-Dec-2016 Instruction Type:Provider Instructions for Treatment DISCONTINUED - LIPID PANEL ( 30049) Indication:Hypercholesteremia Start:13-Oct-2016 Instruction Type:Patient Education DISCONTINUED - Glucose, PP/2 Hour (30419) Indication:Family history of diabetes mellitus Start:13-Oct-2016 Instruction Type:Patient Education DISCONTINUED - Hemoglobin Glyclated (HGB A1C) (72184) Indication:Family history of diabetes mellitus Start:13-Oct-2016 Instruction Type:Patient Education How to access health Community [email or web address] online Indication:Uncontrolled type 2 diabetes mellitus without complication, without long-term current use of insulin Start:13-Oct-2016 Instruction Type:Patient Education How to access health informa [employer] online - Detail Indication:Uncontrolled type 2 diabetes mellitus without complication, without long-term current use of insulin Start:13-Oct-2016 Instruction Type:Patient Education Patient Instructions Indication:Uncontrolled type 2 diabetes mellitus without complication, without long-term current use of insulin Start:13-Oct-2016 Instruction Type:Provider Instructions for Treatment Patient Instructions Indication:Nonsmoker Start:30-Sep-2016 Instruction Type:Provider Instructions for Treatment How to access health Community [employer] Indication:Uncontrolled type 2 diabetes mellitus without complication, without long-term current use of insulin Start:30-Sep-2016 Instruction Type:Patient Education How to access health informa [employer] online - Detail Indication:Uncontrolled type 2 diabetes [...] for Treatment DISCONTINUED - LIPID PANEL ( 51161) Indication:Hypercholesteremia Start:13-Oct-2016 Instruction Type:Patient Education DISCONTINUED - Glucose, PP/2 Hour (80169) Indication:Family history of diabetes mellitus Start:13-Oct-2016 Instruction Type:Patient Education DISCONTINUED - Hemoglobin Glyclated (HGB A1C) (57549) Indication:Family history of diabetes mellitus Start:13-Oct-2016 Instruction Type:Patient Education How to access health Community [employer] online Indication:Uncontrolled type 2 diabetes mellitus without [...] for Treatment How to access health informa [employer] online Indication:Uncontrolled type 2 diabetes mellitus without [...] Instructions for Treatment How to Access Health [employer] Online using Patient Portal and 3rd [employer] [...] Informa tion Online using Patient Portal and [employer] Apps Indication:BMI 34.0-34.9,adult Start:13-Aug-2021 Instruction Type:Patient Education Patient Instructions Indication:Temporary low platelet count Start:19-Mar-2021 Instruction Type:Provider Instructions for Treatment How to Access Health Informa tion Online using Patient Portal and [employer]rd [employer] Apps Indication:Nonsmoker Start:19-Mar-2021 Instruction Type:Patient Education Patient Instructions Indication:Acute sinusitis Start:24-Feb-2021 Instruction Type:Provider Instructions for Treatment How to Access Health Informa tion Online using Patient Portal and [employer] Apps Indication:Acute sinusitis Start:24-Feb-2021 Instruction Type:Patient Education [...] for Treatment How to access health informa [employer] online Indication:Uncontrolled type 2 diabetes mellitus without complication, without long-term current use of insulin Start:09-Dec-2016 Instruction Type:Patient Education How to access health informa [employer] online - Detail Indication:Uncontrolled type 2 diabetes mellitus without complication, without long-term current use of insulin Start:09-Dec-2016 Instruction Type:Patient Education Patient Instructions Indication:Uncontrolled type 2 diabetes mellitus without complication, without long-term current use of insulin Start:09-Dec-2016 Instruction Type:Provider Instructions for Treatment DISCONTINUED - LIPID PANEL ( 95936) Indication:Hypercholesteremia Start:13-Oct-2016 Instruction Type:Patient Education DISCONTINUED - Glucose, PP/2 Hour (78124) Indication:Family history of diabetes mellitus Start:13-Oct-2016 Instruction Type:Patient Education DISCONTINUED - Hemoglobin Glyclated (HGB A1C) (63843) Indication:Family history of diabetes mellitus Start:13-Oct-2016 Instruction Type:Patient Education How to access health Community [email or web address] online Indication:Uncontrolled type 2 diabetes mellitus without complication, without long-term current use of insulin Start:13-Oct-2016 Instruction Type:Patient Education How to access health informa [employer] online - Detail Indication:Uncontrolled type 2 diabetes mellitus without complication, without long-term current use of insulin Start:13-Oct-2016 Instruction Type:Patient Education Patient Instructions Indication:Uncontrolled type 2 diabetes mellitus without complication, without long-term current use of insulin Start:13-Oct-2016 Instruction Type:Provider Instructions for Treatment Patient Instructions Indication:Nonsmoker Start:30-Sep-2016 Instruction Type:Provider Instructions for Treatment How to access [address] [employer] Indication:Uncontrolled type 2 diabetes mellitus without complication, [...] for Treatment DISCONTINUED - LIPID PANEL ( 95734) Indication:Hypercholesteremia Start:13-Oct-2016 Instruction Type:Patient Education DISCONTINUED - Glucose, PP/2 Hour (50577) Indication:Family history of diabetes mellitus Start:13-Oct-2016 Instruction Type:Patient Education DISCONTINUED - Hemoglobin Glyclated (HGB A1C) (31309) Indication:Family history of diabetes mellitus Start:13-Oct-2016 Instruction [...] Informa tion Online using Patient Portal and [employer] Apps Indication:Diabetes mellitus type II, controlled, with no complications (Renamed from Controlled type 2 diabetes mellitus without complication) Start:27-Feb-2022 Instruction Type:Patient Education Patient Instructions Indication:BMI 33.0-33.9,adult Start:18-Nov-2021 Instruction Type:Provider Instructions for Treatment How to Access Health Informa tion Online using Patient Portal and [employer] Apps Indication:Diabetes mellitus type II, controlled, with no complications (Renamed from Controlled type 2 diabetes mellitus without complication) Start:18-Nov-2021 Instruction Type:Patient Education Patient Instructions Indication:Vitamin D deficiency Start:13-Aug-2021 Instruction Type:Provider Instructions for Treatment How to Access Health Informa tion Online using Patient Portal and [employer] Apps Indication:BMI 34.0-34.9,adult Start:13-Aug-2021 Instruction Type:Patient Education Patient Instructions Indication:Temporary low platelet count Start:19-Mar-2021 Instruction Type:Provider Instructions for Treatment How to Access Health Informa tion Online using Patient Portal and [employer] Apps Indication:Nonsmoker Start:19-Mar-2021 Instruction Type:Patient Education Patient Instructions Indication:Acute sinusitis Start:24-Feb-2021 Instruction Type:Provider Instructions for Treatment How to Access Health Informa tion Online using Patient Portal and [employer] Apps Indication:Acute sinusitis Start:24-Feb-2021 Instruction Type:Patient Education [...] Instructions for Treatment How to access health Community [employer] Indication:Uncontrolled type 2 diabetes mellitus without complication, without long-term current use of insulin Start:09-Dec-2016 Instruction Type:Patient Education How to access health informa [employer] online - Detail Indication:Uncontrolled type 2 diabetes mellitus without complication, without long-term current use of insulin Start:09-Dec-2016 Instruction Type:Patient Education Patient Instructions Indication:Uncontrolled type 2 diabetes mellitus without complication, without long-term current use of insulin Start:09-Dec-2016 Instruction Type:Provider Instructions for Treatment DISCONTINUED - LIPID PANEL ( [id number]) Indication:Hypercholesteremia Start:13-Oct-2016 Instruction Type:Patient Education DISCONTINUED - Glucose, PP/2 Hour (25499) Indication:Family history of diabetes mellitus Start:13-Oct-2016 Instruction Type:Patient Education DISCONTINUED - Hemoglobin Glyclated (HGB A1C) (02094) Indication:Family history of diabetes mellitus Start:13-Oct-2016 Instruction Type:Patient Education How to access health Community [email or web address] online Indication:Uncontrolled type 2 diabetes mellitus without complication, without long-term current use of insulin Start:13-Oct-2016 Instruction Type:Patient Education How to access health informa [employer] online - Detail Indication:Uncontrolled type 2 diabetes mellitus without complication, without long-term current use of insulin Start:13-Oct-2016 Instruction Type:Patient Education Patient Instructions Indication:Uncontrolled type 2 diabetes mellitus without complication, without long-term current use of insulin Start:13-Oct-2016 Instruction Type:Provider Instructions for Treatment Patient Instructions Indication:Nonsmoker Start:30-Sep-2016 Instruction Type:Provider Instructions for Treatment How to access health Community [employer] online Indication:Uncontrolled type 2 diabetes mellitus without complication, without long-term current use of insulin Start:30-Sep-2016 Instruction Type:Patient Education How to access health informa [employer] online - Detail Indication:Uncontrolled type 2 diabetes [...] for Treatment DISCONTINUED - LIPID PANEL ( [id number]) Indication:Hypercholesteremia Start:13-Oct-2016 Instruction Type:Patient Education DISCONTINUED - Glucose, PP/2 Hour (40505) Indication:Family history of diabetes mellitus Start:13-Oct-2016 Instruction Type:Patient Education DISCONTINUED - Hemoglobin Glyclated (HGB A1C) (74637) Indication:Family history of diabetes mellitus Start:13-Oct-2016 Instruction [...] Informa tion Online using Patient Portal and [employer] Indication:Nonsmoker Start:26-May-2022 Instruction Type:Patient Education Patient Instructions Indication:Diabetes mellitus type II, controlled, with no complications (Renamed from Controlled type 2 diabetes mellitus without complication) Start:27-Feb-2022 Instruction Type:Provider Instructions for Treatment How to Access Health Informa tion Online using Patient Portal and [employer] Indication:Diabetes mellitus type II, controlled, with [...] Informa tion Online using Patient Portal and [employer] Indication:BMI 34.0-34.9,adult Start:13-Aug-2021 Instruction Type:Patient Education Patient Instructions Indication:Temporary low platelet count Start:19-Mar-2021 Instruction Type:Provider Instructions for Treatment How to Access Health Informa tion Online using Patient Portal and [employer] Apps Indication:Nonsmoker Start:19-Mar-2021 Instruction Type:Patient Education Patient Instructions Indication:Acute sinusitis Start:24-Feb-2021 Instruction Type:Provider Instructions for Treatment How to Access Health Informa tion Online using Patient Portal and [employer] Indication:Acute sinusitis Start:24-Feb-2021 Instruction Type:Patient Education [...] for Treatment How to access health informa [employer] online Indication:Uncontrolled type 2 diabetes mellitus without complication, without long-term current use of insulin Start:09-Dec-2016 Instruction Type:Patient Education How to access health informa [employer] online - Detail Indication:Uncontrolled type 2 diabetes mellitus without complication, without long-term current use of insulin Start:09-Dec-2016 Instruction Type:Patient Education Patient Instructions Indication:Uncontrolled type 2 diabetes mellitus without complication, without long-term current use of insulin Start:09-Dec-2016 Instruction Type:Provider Instructions for Treatment DISCONTINUED - LIPID PANEL ( [id number]) Indication:Hypercholesteremia Start:13-Oct-2016 Instruction Type:Patient Education DISCONTINUED - Glucose, PP/2 Hour (73687) Indication:Family history of diabetes mellitus Start:13-Oct-2016 Instruction Type:Patient Education DISCONTINUED - Hemoglobin Glyclated (HGB A1C) (74671) Indication:Family history of diabetes mellitus Start:13-Oct-2016 Instruction Type:Patient Education How to access health Community [email or web address] online Indication:Uncontrolled type 2 diabetes mellitus without complication, without long-term current use of insulin Start:13-Oct-2016 Instruction Type:Patient Education How to access health informa [employer] online - Detail Indication:Uncontrolled type 2 diabetes mellitus without complication, without long-term current use of insulin Start:13-Oct-2016 Instruction Type:Patient Education Patient Instructions Indication:Uncontrolled type 2 diabetes mellitus without complication, without long-term current use of insulin Start:13-Oct-2016 Instruction Type:Provider Instructions for Treatment Patient Instructions Indication:Nonsmoker Start:30-Sep-2016 Instruction Type:Provider Instructions for Treatment How to access [employer] Indication:Uncontrolled type 2 diabetes mellitus without complication, [...] Informa tion Online using Patient Portal and [employer] Indication:Acute sinusitis Start:24-Feb-2021 Instruction [...] for Treatment DISCONTINUED - LIPID PANEL ( [id number]) Indication:Hypercholesteremia Start:13-Oct-2016 Instruction Type:Patient Education DISCONTINUED - Glucose, PP/2 Hour (17024) Indication:Family history of diabetes mellitus Start:13-Oct-2016 Instruction Type:Patient Education DISCONTINUED - Hemoglobin Glyclated (HGB A1C) (67827) Indication:Family history of diabetes mellitus Start:13-Oct-2016 Instruction [...] Informa tion Online using Patient Portal and [employer] Indication:BMI 33.0-33.9,adult Start:12-Aug-2022 Instruction Type:Patient Education [...] for Treatment DISCONTINUED - LIPID PANEL ( [id number]) Indication:Hypercholesteremia Start:13-Oct-2016 Instruction Type:Patient Education DISCONTINUED - Glucose, PP/2 Hour (91009) Indication:Family history of diabetes mellitus Start:13-Oct-2016 Instruction Type:Patient Education DISCONTINUED - Hemoglobin Glyclated (HGB A1C) (10923) Indication:Family history of diabetes mellitus Start:13-Oct-2016 Instruction [...] Informa tion Online using Patient Portal and [employer] Indication:Diabetes mellitus type II, controlled, with no [...] Informa tion Online using Patient Portal and [employer] Indication:BMI 33.0-33.9,adult Start:12-Aug-2022 Instruction Type:Patient Education Patient Instructions Indication:Nonsmoker Start:07-Jul-2022 Instruction Type:Provider Instructions for Treatment How to Access Health Informa tion Online using Patient Portal and [employer] Indication:Nonsmoker Start:07-Jul-2022 Instruction Type:Patient Education Patient [...] for Treatment DISCONTINUED - LIPID PANEL ( [id number]) Indication:Hypercholesteremia Start:13-Oct-2016 Instruction Type:Patient Education DISCONTINUED - Glucose, PP/2 Hour (26942) Indication:Family history of diabetes mellitus Start:13-Oct-2016 Instruction Type:Patient Education DISCONTINUED - Hemoglobin Glyclated (HGB A1C) (32170) Indication:Family history of diabetes mellitus Start:13-Oct-2016 Instruction [...] Informa tion Online using Patient Portal and [employer] Indication:Diabetes mellitus type II, controlled, with no [...] Informa tion Online using Patient Portal and [employer] Indication:BMI 33.0-33.9,adult Start:12-Aug-2022 Instruction Type:Patient Education Patient Instructions Indication:Nonsmoker Start:07-Jul-2022 Instruction Type:Provider Instructions for Treatment How to Access Health Informa tion Online using Patient Portal and [employer] Indication:Nonsmoker Start:07-Jul-2022 Instruction Type:Patient Education Patient [...] Instructions for Treatment How to access health Community [employer] online Indication:Diabetes mellitus type II, controlled, with [...] for Treatment How to access health informa [employer] online Indication:Uncontrolled type 2 diabetes mellitus without [...] for Treatment DISCONTINUED - LIPID PANEL ( [id number]) Indication:Hypercholesteremia Start:13-Oct-2016 Instruction Type:Patient Education DISCONTINUED - Glucose, PP/2 Hour (87505) Indication:Family history of diabetes mellitus Start:13-Oct-2016 Instruction Type:Patient Education DISCONTINUED - Hemoglobin Glyclated (HGB A1C) (04594) Indication:Family history of diabetes mellitus Start:13-Oct-2016 Instruction [...] Informa tion Online using Patient Portal and [employer] Indication:Diabetes mellitus type II, controlled, with no [...] Informa tion Online using Patient Portal and [employer] Indication:BMI 33.0-33.9,adult Start:12-Aug-2022 Instruction Type:Patient Education Patient Instructions Indication:Nonsmoker Start:07-Jul-2022 Instruction Type:Provider Instructions for Treatment How to Access Health Informa tion Online using Patient Portal and [employer] Indication:Nonsmoker Start:07-Jul-2022 Instruction Type:Patient Education Patient [...] Instructions for Treatment How to access health Community [employer] online Indication:Diabetes mellitus type II, controlled, with [...] for Treatment How to access health informa [employer] online Indication:Uncontrolled type 2 diabetes mellitus without [...] for Treatment DISCONTINUED - LIPID PANEL ( [id number]) Indication:Hypercholesteremia Start:13-Oct-2016 Instruction Type:Patient Education DISCONTINUED - Glucose, PP/2 Hour (40407) Indication:Family history of diabetes mellitus Start:13-Oct-2016 Instruction Type:Patient Education DISCONTINUED - Hemoglobin Glyclated (HGB A1C) (03264) Indication:Family history of diabetes mellitus Start:13-Oct-2016 Instruction [...] Informa tion Online using Patient Portal and [employer] Indication:Diabetes mellitus type II, controlled, with no [...] Informa tion Online using Patient Portal and [employer] Indication:BMI 33.0-33.9,adult Start:12-Aug-2022 Instruction Type:Patient Education Patient Instructions Indication:Nonsmoker Start:07-Jul-2022 Instruction Type:Provider Instructions for Treatment How to Access Health Informa tion Online using Patient Portal and [employer] Indication:Nonsmoker Start:07-Jul-2022 Instruction Type:Patient Education Patient [...] Instructions for Treatment How to access health Community [employer] online Indication:Diabetes mellitus type II, controlled, with [...] for Treatment DISCONTINUED - LIPID PANEL ( [id number]) Indication:Hypercholesteremia Start:13-Oct-2016 Instruction Type:Patient Education DISCONTINUED - Glucose, PP/2 Hour (14034) Indication:Family history of diabetes mellitus Start:13-Oct-2016 Instruction Type:Patient Education DISCONTINUED - Hemoglobin Glyclated (HGB A1C) (85590) Indication:Family history of diabetes mellitus Start:13-Oct-2016 Instruction [...] Informa tion Online using Patient Portal and [employer] Indication:Diabetes mellitus type II, controlled, with [...] Informa tion Online using Patient Portal and [employer] Indication:BMI 33.0-33.9,adult Start:12-Aug-2022 Instruction Type:Patient Education Patient Instructions Indication:Nonsmoker Start:07-Jul-2022 Instruction Type:Provider Instructions for Treatment How to Access Health Informa tion Online using Patient Portal and [employer] Indication:Nonsmoker Start:07-Jul-2022 Instruction Type:Patient Education Patient [...] for Treatment How to access health informa [employer] online Indication:Diabetes mellitus type II, controlled, with [...] for Treatment DISCONTINUED - LIPID PANEL ( [id number]) Indication:Hypercholesteremia Start:13-Oct-2016 Instruction Type:Patient Education DISCONTINUED - Glucose, PP/2 Hour (68347) Indication:Family history of diabetes mellitus Start:13-Oct-2016 Instruction Type:Patient Education DISCONTINUED - Hemoglobin Glyclated (HGB A1C) (81340) Indication:Family history of diabetes mellitus Start:13-Oct-2016 Instruction [...] Informa tion Online using Patient Portal and [employer] Indication:Type 2 diabetes mellitus with hemoglobin A1c goal of less than 7.0% Start:19-Jan-2023 Instruction Type:Patient Education How to Access Health Informa tion Online using Patient Portal and [employer] Indication:Type 2 diabetes mellitus [...] for Treatment How to access health informa [employer] online Indication:Uncontrolled type 2 diabetes mellitus without [...] for Treatment How to access health informa [employer] online Indication:Uncontrolled type 2 diabetes mellitus without [...] for Treatment DISCONTINUED - LIPID PANEL ( [id number]) Indication:Hypercholesteremia Start:13-Oct-2016 Instruction Type:Patient Education DISCONTINUED - Glucose, PP/2 Hour (49941) Indication:Family history of diabetes mellitus Start:13-Oct-2016 Instruction Type:Patient Education DISCONTINUED - Hemoglobin Glyclated (HGB A1C) (68774) Indication:Family history of diabetes mellitus Start:13-Oct-2016 Instruction [...] Informa tion Online using Patient Portal and [employer] Indication:Type 2 diabetes mellitus with hemoglobin [...] for Treatment DISCONTINUED - LIPID PANEL ( [id number]) Indication:Hypercholesteremia Start:13-Oct-2016 Instruction Type:Patient Education DISCONTINUED - Glucose, PP/2 Hour (12482) Indication:Family history of diabetes mellitus Start:13-Oct-2016 Instruction Type:Patient Education DISCONTINUED - Hemoglobin Glyclated (HGB A1C) (90825) Indication:Family history of diabetes mellitus Start:13-Oct-2016 Instruction Type:Patient Education How to access health informa [employer] online Indication:Uncontrolled type 2 diabetes mellitus without [...] Informa tion Online using Patient Portal and [employer] Indication:Type 2 diabetes mellitus [...] Informa tion Online using Patient Portal and [employer] Indication:BMI 34.0-34.9,adult Start:13-Aug-2021 Instruction Type:Patient Education Patient Instructions Indication:Temporary low platelet count Start:19-Mar-2021 Instruction Type:Provider Instructions for Treatment How to Access Health Informa tion Online using Patient Portal and [employer] Indication:Nonsmoker Start:19-Mar-2021 Instruction Type:Patient Education Patient Instructions Indication:Acute sinusitis Start:24-Feb-2021 Instruction Type:Provider Instructions for Treatment How to Access Health Informa tion Online using Patient Portal and [employer] Indication:Acute sinusitis Start:24-Feb-2021 Instruction Type:Patient Education [...] for Treatment How to access health informa [employer] online Indication:Uncontrolled type 2 diabetes mellitus without [...] for Treatment DISCONTINUED - LIPID PANEL ( [id number]) Indication:Hypercholesteremia Start:13-Oct-2016 Instruction Type:Patient Education DISCONTINUED - Glucose, PP/2 Hour (30304) Indication:Family history of diabetes mellitus Start:13-Oct-2016 Instruction Type:Patient Education DISCONTINUED - Hemoglobin Glyclated (HGB A1C) (10966) Indication:Family history of diabetes mellitus Start:13-Oct-2016 Instruction Type:Patient Education How to access health informa [employer] online Indication:Uncontrolled type 2 diabetes mellitus without [...] for Treatment How to access health informa [employer] online Indication:Uncontrolled type 2 diabetes mellitus without complication, without long-term current use of insulin Start:30-Sep-2016 Instruction Type:Patient Education How to access health informa [employer] online - Detail Indication:Uncontrolled type 2 diabetes [...] Informa tion Online using Patient Portal and [employer] Indication:BMI 34.0-34.9,adult Start:13-Aug-2021 Instruction Type:Patient Education Patient Instructions Indication:Temporary low platelet count Start:19-Mar-2021 Instruction Type:Provider Instructions for Treatment How to Access Health Informa tion Online using Patient Portal and [employer] Indication:Nonsmoker Start:19-Mar-2021 Instruction Type:Patient Education Patient Instructions Indication:Acute sinusitis Start:24-Feb-2021 Instruction Type:Provider Instructions for Treatment How to Access Health Informa tion Online using Patient Portal and [employer] Indication:Acute sinusitis Start:24-Feb-2021 Instruction Type:Patient Education [...] for Treatment DISCONTINUED - LIPID PANEL ( [id number]) Indication:Hypercholesteremia Start:13-Oct-2016 Instruction Type:Patient Education DISCONTINUED - Glucose, PP/2 Hour (57941) Indication:Family history of diabetes mellitus Start:13-Oct-2016 Instruction Type:Patient Education DISCONTINUED - Hemoglobin Glyclated (HGB A1C) (53651) Indication:Family history of diabetes mellitus Start:13-Oct-2016 Instruction [...] Instructions for Treatment How to Access Health [email or web address] Online using Patient Portal and [employer] [...] for Treatment DISCONTINUED - LIPID PANEL ( 05805) Indication:Hypercholesteremia Start:13-Oct-2016 Instruction Type:Patient Education DISCONTINUED - Glucose, PP/2 Hour (33309) Indication:Family history of diabetes mellitus Start:13-Oct-2016 Instruction Type:Patient Education DISCONTINUED - Hemoglobin Glyclated (HGB A1C) (56416) Indication:Family history of diabetes mellitus Start:13-Oct-2016 Instruction [...] Informa tion Online using Patient Portal and [employer] Indication:BMI 32.0-32.9,adult Start:20-Jul-2023 Instruction [...] for Treatment DISCONTINUED - LIPID PANEL ( [id number]) Indication:Hypercholesteremia Start:13-Oct-2016 Instruction Type:Patient Education DISCONTINUED - Glucose, PP/2 Hour (90889) Indication:Family history of diabetes mellitus Start:13-Oct-2016 Instruction Type:Patient Education DISCONTINUED - Hemoglobin Glyclated (HGB A1C) (34710) Indication:Family history of diabetes mellitus Start:13-Oct-2016 Instruction Type:Patient Education How to access health Community [employer] Indication:Uncontrolled type 2 diabetes mellitus without complication, [...] Instructions for Treatment How to access health Community [employer] Indication:Uncontrolled type 2 diabetes mellitus without complication, [...] for referral (narrative)No reason for referral information availableWCleveland [facility] Work Phone: Summary Purpose Family History [...] Records Found Name Dates Details Immunization Registry [place] - Effective on 03/19/2021. Expiration date unspecified Effective:19-Mar-2021 Name Dates Details Immunization Registry [place] - Effective on 03/19/2021. Expiration date unspecified Effective:19-Mar-2021 Name Dates Details Immunization Registry [place] - Effective on 03/19/2021. Expiration date unspecified Effective:19-Mar-2021 Name Dates Details Immunization Registry [place] - Effective on 03/19/2021. Expiration date unspecified Effective:19-Mar-2021 Name Dates Details Immunization Registry [place] - Effective on 03/19/2021. Expiration date unspecified Effective:19-Mar-2021 Name Dates Details Immunization Registry [place] - Effective on 03/19/2021. Expiration date unspecified Effective:19-Mar-2021 Name Dates Details Immunization Registry [place] - Effective on 03/19/2021. Expiration date unspecified Effective:19-Mar-2021 Name Dates Details Immunization Registry [place] - Effective on 03/19/2021. Expiration date unspecified Effective:19-Mar-2021 Advance Directive Response Recorded Date/ Time Living Will No May 05, 2019 1 2:35am Power of Kennel Supervisor No May 05, 2019 12:35am Name Dates Details Immunization Registry [place] - Effective on 03/19/2021. Expiration date unspecified Effective:19-Mar-2021 Name Dates Details Immunization Registry [place] - Effective on 03/19/2021. Expiration date unspecified Effective:19-Mar-2021 Name Dates Details Immunization Registry [place] - Effective on 03/19/2021. Expiration date unspecified Effective:19-Mar-2021 Name Dates Details Immunization Registry [place] - Effective on 03/19/2021. Expiration date unspecified Effective:19-Mar-2021 Name Dates Details Immunization Registry [place] - Effective on 03/19/2021. Expiration date unspecified Effective:19-Mar-2021 Name Dates Details Immunization Registry [place] - Effective on 03/19/2021. Expiration date unspecified Effective:19-Mar-2021 Name Dates Details Immunization Registry [place] - Effective on 03/19/2021. Expiration date unspecified Effective:19-Mar-2021 Name Dates Details Immunization Registry [place] - Effective on 03/19/2021. Expiration date unspecified Effective:19-Mar-2021 Name Dates Details Immunization Registry [place] - Effective on 03/19/2021. Expiration date unspecified Effective:19-Mar-2021 Name Dates Details Immunization Registry [place] - Effective on 03/19/2021. Expiration date unspecified Effective:19-Mar-2021 Name Dates Details Immunization Registry [place] - Effective on 03/19/2021. Expiration date unspecified Effective:19-Mar-2021 Name Dates Details Immunization Registry [place] - Effective on 03/19/2021. Expiration date unspecified Effective:19-Mar-2021 Name Dates Details Immunization Registry [place] - Effective on 03/19/2021. Expiration date unspecified Effective:19-Mar-2021 Advance Directive Response Recorded Date/ Time Do you have a Healthcare Power of Kennel Supervisor? Yes May 31, 2025 10:43am Instructions Name [...] Hypercholesteremia : DISCONT INUED - LIPID PANEL ([id number]) Indication:Hypercholesteremia Family history of diabetes m claudine : DISCONTINUED - Glucose, PP/2 Hour (30562) Indication:Family history of diabetes mellitus Family history of diabetes m ellitus : DISCONTINUED - Hemoglobin Glyclated (HGB A1C) (91502) Indication:Family history of diabetes mellitus Hypothyroid : [...] Hypercholesteremia : DISCONT INUED - LIPID PANEL (13425) Indication:Hypercholesteremia Family history of diabetes m ellitus : DISCONTINUED - Glucose, PP/2 Hour (32968) Indication:Family history of diabetes mellitus Family history of diabetes m ellitus : DISCONTINUED - Hemoglobin Glyclated (HGB A1C) (48249) Indication:Family history of diabetes mellitus Hypothyroid : [...] Hypercholesteremia : DISCONT INUED - LIPID PANEL ([id number]) Indication:Hypercholesteremia Family history of diabetes m ellitus : DISCONTINUED - Glucose, PP/2 Hour (85145) Indication:Family history of diabetes mellitus Family history of diabetes m ellitus : DISCONTINUED - Hemoglobin Glyclated (HGB A1C) (10478) Indication:Family history of diabetes mellitus Family history [...] Hypercholesteremia : DISCONT INUED - LIPID PANEL (26138) Indication:Hypercholesteremia Family history of diabetes m ellitus : DISCONTINUED - Glucose, PP/2 Hour (23553) Indication:Family history of diabetes mellitus Family history of diabetes m ellitus : DISCONTINUED - Hemoglobin Glyclated (HGB A1C) (02607) Indication:Family history of diabetes mellitus Family history [...] Hypercholesteremia : DISCONT INUED - LIPID PANEL (54025) Indication:Hypercholesteremia Family history of diabetes m ellitus : DISCONTINUED - Glucose, PP/2 Hour (20287) Indication:Family history of diabetes mellitus Family history of diabetes m ellitus : DISCONTINUED - Hemoglobin Glyclated (HGB A1C) (09338) Indication:Family history of diabetes mellitus Family history [...] Hypercholesteremia : DISCONT INUED - LIPID PANEL (65538) Indication:Hypercholesteremia Family history of diabetes m ellitus : DISCONTINUED - Glucose, PP/2 Hour (52594) Indication:Family history of diabetes mellitus Family history of diabetes m ellitus : DISCONTINUED - Hemoglobin Glyclated (HGB A1C) (78977) Indication:Family history of diabetes mellitus Family history [...] for Treatment DISCONTINUED - LIPID PANEL ( 92709) Indication:Hypercholesteremia Start:13-Oct-2016 Instruction Type:Patient Education DISCONTINUED - Glucose, PP/2 Hour (85745) Indication:Family history of diabetes mellitus Start:13-Oct-2016 Instruction Type:Patient Education DISCONTINUED - Hemoglobin Glyclated (HGB A1C) (53513) Indication:Family history of diabetes mellitus Start:13-Oct-2016 Instruction Type:Patient Education How to access health informa [employer] online Indication:Uncontrolled type 2 diabetes mellitus without complication, without long-term current use of insulin Start:13-Oct-2016 Instruction Type:Patient Education How to access health informa [employer] online - Detail Indication:Uncontrolled type 2 diabetes mellitus without complication, without long-term current use of insulin Start:13-Oct-2016 Instruction Type:Patient Education Patient Instructions Indication:Uncontrolled type 2 diabetes mellitus without complication, without long-term current use of insulin Start:13-Oct-2016 Instruction Type:Provider Instructions for Treatment Patient Instructions Indication:Nonsmoker Start:30-Sep-2016 Instruction Type:Provider Instructions for Treatment How to access health informa [employer] Indication:Uncontrolled type 2 diabetes mellitus without complication, without long-term current use of insulin Start:30-Sep-2016 Instruction Type:Patient Education How to access health informa [employer] online - Detail Indication:Uncontrolled type 2 diabetes mellitus without complication, without long-term current use of insulin Start:30-Sep-2016 Instruction Type:Patient Education Patient Instructions Indication:Hypothyroid Start:28-Aug-2013 Instruction Type:Provider Instructions for Treatment Patient Instructions Indication:Family history of diabetes mellitus Start:06-Mar-2013 Instruction Type:Provider Instructions for Treatment Name Dates Details How to access health [facility] [employer] Indication:Nonsmoker Start:03-Apr-2019 Instruction Type:Patient Education How to access health informa [employer] online - Detail Indication:Nonsmoker Start:03-Apr-2019 Instruction Type:Patient Education Patient Instructions Indication:Nonsmoker Start:03-Apr-2019 Instruction Type:Provider Instructions for Treatment How to access health Community [employer] Indication:Diabetes mellitus type 2, uncontrolled (Renamed from [...] for Treatment DISCONTINUED - LIPID PANEL ( [id number]) Indication:Hypercholesteremia Start:13-Oct-2016 Instruction Type:Patient Education DISCONTINUED - Glucose, PP/2 Hour ([id number]) Indication:Family history of diabetes mellitus Start:13-Oct-2016 Instruction Type:Patient Education DISCONTINUED - Hemoglobin Glyclated (HGB A1C) ([id number]) Indication:Family history of diabetes mellitus Start:13-Oct-2016 Instruction Type:Patient Education How to access health informa [employer] online Indication:Uncontrolled type 2 diabetes mellitus without [...] for Treatment DISCONTINUED - LIPID PANEL ( [id number]) Indication:Hypercholesteremia Start:13-Oct-2016 Instruction Type:Patient Education DISCONTINUED - Glucose, PP/2 Hour ([id number]) Indication:Family history of diabetes mellitus Start:13-Oct-2016 Instruction Type:Patient Education DISCONTINUED - Hemoglobin Glyclated (HGB A1C) ([id number]) Indication:Family history of diabetes mellitus Start:13-Oct-2016 Instruction Type:Patient Education How to access health informa [employer] online Indication:Uncontrolled type 2 diabetes mellitus without [...] for Treatment How to access health informa [employer] online Indication:Uncontrolled type 2 diabetes mellitus without [...] Dates Details How to access health informa [employer] online Indication:Diabetes mellitus type II, controlled, with [...] Instructions for Treatment How to access health Community [email or web address] online Indication:Nonsmoker Start:03-Apr-2019 Instruction Type:Patient Education How to access health informa [employer] online - Detail Indication:Nonsmoker Start:03-Apr-2019 Instruction Type:Patient [...] for Treatment DISCONTINUED - LIPID PANEL ( [id number]) Indication:Hypercholesteremia Start:13-Oct-2016 Instruction Type:Patient Education DISCONTINUED - Glucose, PP/2 Hour ([id number]) Indication:Family history of diabetes mellitus Start:13-Oct-2016 Instruction Type:Patient Education DISCONTINUED - Hemoglobin Glyclated (HGB A1C) (21345) Indication:Family history of diabetes mellitus Start:13-Oct-2016 Instruction [...] Instructions for Treatment How to access health Community [employer] Indication:Uncontrolled type 2 diabetes mellitus without complication, without long-term current use of insulin Start:09-Dec-2016 Instruction Type:Patient Education How to access health informa [employer] online - Detail Indication:Uncontrolled type 2 diabetes mellitus without complication, without long-term current use of insulin Start:09-Dec-2016 Instruction Type:Patient Education Patient Instructions Indication:Uncontrolled type 2 diabetes mellitus without complication, without long-term current use of insulin Start:09-Dec-2016 Instruction Type:Provider Instructions for Treatment DISCONTINUED - LIPID PANEL ( [id number]) Indication:Hypercholesteremia Start:13-Oct-2016 Instruction Type:Patient Education DISCONTINUED - Glucose, PP/2 Hour ([id number]) Indication:Family history of diabetes mellitus Start:13-Oct-2016 Instruction Type:Patient Education DISCONTINUED - Hemoglobin Glyclated (HGB A1C) ([id number]) Indication:Family history of diabetes mellitus Start:13-Oct-2016 Instruction Type:Patient Education How to access health Community [email or web address] online Indication:Uncontrolled type 2 diabetes mellitus without complication, without long-term current use of insulin Start:13-Oct-2016 Instruction Type:Patient Education How to access health informa [employer] online - Detail Indication:Uncontrolled type 2 diabetes mellitus without complication, without long-term current use of insulin Start:13-Oct-2016 Instruction Type:Patient Education Patient Instructions Indication:Uncontrolled type 2 diabetes mellitus without complication, without long-term current use of insulin Start:13-Oct-2016 Instruction Type:Provider Instructions for Treatment Patient Instructions Indication:Nonsmoker Start:30-Sep-2016 Instruction Type:Provider Instructions for Treatment How to access health Community [employer] online Indication:Uncontrolled type 2 diabetes mellitus without complication, without long-term current use of insulin Start:30-Sep-2016 Instruction Type:Patient Education How to access health informa [employer] online - Detail Indication:Uncontrolled type 2 diabetes [...] for Treatment DISCONTINUED - LIPID PANEL ( [id number]) Indication:Hypercholesteremia Start:13-Oct-2016 Instruction Type:Patient Education DISCONTINUED - Glucose, PP/2 Hour ([id number]) Indication:Family history of diabetes mellitus Start:13-Oct-2016 Instruction Type:Patient Education DISCONTINUED - Hemoglobin Glyclated (HGB A1C) ([id number]) Indication:Family history of diabetes mellitus Start:13-Oct-2016 Instruction [...] Instructions for Treatment How to access health Community [email or web address] online Indication:Uncontrolled type 2 diabetes mellitus without [...] for Treatment How to access health informa [employer] online Indication:Uncontrolled type 2 diabetes mellitus without [...] for Treatment DISCONTINUED - LIPID PANEL ( [id number]) Indication:Hypercholesteremia Start:13-Oct-2016 Instruction Type:Patient Education DISCONTINUED - Glucose, PP/2 Hour ([id number]) Indication:Family history of diabetes mellitus Start:13-Oct-2016 Instruction Type:Patient Education DISCONTINUED - Hemoglobin Glyclated (HGB A1C) ([id number]) Indication:Family history of diabetes mellitus Start:13-Oct-2016 Instruction Type:Patient Education How to access health informa [employer] online Indication:Uncontrolled type 2 diabetes mellitus without [...] for Treatment How to access health informa [employer] Indication:Uncontrolled type 2 diabetes mellitus without complication, without long-term current use of insulin Start:09-Dec-2016 Instruction Type:Patient Education How to access health informa [employer] online - Detail Indication:Uncontrolled type 2 diabetes mellitus without complication, without long-term current use of insulin Start:09-Dec-2016 Instruction Type:Patient Education Patient Instructions Indication:Uncontrolled type 2 diabetes mellitus without complication, without long-term current use of insulin Start:09-Dec-2016 Instruction Type:Provider Instructions for Treatment DISCONTINUED - LIPID PANEL ( [id number]) Indication:Hypercholesteremia Start:13-Oct-2016 Instruction Type:Patient Education DISCONTINUED - Glucose, PP/2 Hour ([id number]) Indication:Family history of diabetes mellitus Start:13-Oct-2016 Instruction Type:Patient Education DISCONTINUED - Hemoglobin Glyclated (HGB A1C) (52753) Indication:Family history of diabetes mellitus Start:13-Oct-2016 Instruction Type:Patient Education How to access health Community [employer] Indication:Uncontrolled type 2 diabetes mellitus without complication, without long-term current use of insulin Start:13-Oct-2016 Instruction Type:Patient Education How to access health informa [employer] online - Detail Indication:Uncontrolled type 2 diabetes mellitus without complication, without long-term current use of insulin Start:13-Oct-2016 Instruction Type:Patient Education Patient Instructions Indication:Uncontrolled type 2 diabetes mellitus without complication, without long-term current use of insulin Start:13-Oct-2016 Instruction Type:Provider Instructions for Treatment Patient Instructions Indication:Nonsmoker Start:30-Sep-2016 Instruction Type:Provider Instructions for Treatment How to access health Community [employer] Indication:Uncontrolled type 2 diabetes mellitus without complication, without long-term current use of insulin Start:30-Sep-2016 Instruction Type:Patient Education How to access health informa [employer] - Detail Indication:Uncontrolled type 2 diabetes mellitus [...] for Treatment DISCONTINUED - LIPID PANEL ( [id number]) Indication:Hypercholesteremia Start:13-Oct-2016 Instruction Type:Patient Education DISCONTINUED - Glucose, PP/2 Hour (47947) Indication:Family history of diabetes mellitus Start:13-Oct-2016 Instruction Type:Patient Education DISCONTINUED - Hemoglobin Glyclated (HGB A1C) ([id number]) Indication:Family history of diabetes mellitus Start:13-Oct-2016 Instruction Type:Patient Education How to access health informa [employer] online Indication:Uncontrolled type 2 diabetes mellitus without [...] for Treatment How to access health informa [employer] online Indication:Uncontrolled type 2 diabetes mellitus without [...] for Treatment DISCONTINUED - LIPID PANEL ( [id number]) Indication:Hypercholesteremia Start:13-Oct-2016 Instruction Type:Patient Education DISCONTINUED - Glucose, PP/2 Hour ([id number]) Indication:Family history of diabetes mellitus Start:13-Oct-2016 Instruction Type:Patient Education DISCONTINUED - Hemoglobin Glyclated (HGB A1C) (26880) Indication:Family history of diabetes mellitus Start:13-Oct-2016 Instruction Type:Patient Education How to access health informa [employer] online Indication:Uncontrolled type 2 diabetes mellitus without [...] for Treatment DISCONTINUED - LIPID PANEL ( [id number]) Indication:Hypercholesteremia Start:13-Oct-2016 Instruction Type:Patient Education DISCONTINUED - Glucose, PP/2 Hour (46776) Indication:Family history of diabetes mellitus Start:13-Oct-2016 Instruction Type:Patient Education DISCONTINUED - Hemoglobin Glyclated (HGB A1C) (88106) Indication:Family history of diabetes mellitus Start:13-Oct-2016 Instruction [...] for Treatment DISCONTINUED - LIPID PANEL ( [id number]) Indication:Hypercholesteremia Start:13-Oct-2016 Instruction Type:Patient Education DISCONTINUED - Glucose, PP/2 Hour (68997) Indication:Family history of diabetes mellitus Start:13-Oct-2016 Instruction Type:Patient Education DISCONTINUED - Hemoglobin Glyclated (HGB A1C) (67178) Indication:Family history of diabetes mellitus Start:13-Oct-2016 Instruction Type:Patient Education How to access health Community [email or web address] online Indication:Uncontrolled type 2 diabetes mellitus without complication, without long-term current use of insulin Start:13-Oct-2016 Instruction Type:Patient Education How to access health informa [employer] online - Detail Indication:Uncontrolled type 2 diabetes mellitus without complication, without long-term current use of insulin Start:13-Oct-2016 Instruction Type:Patient Education Patient Instructions Indication:Uncontrolled type 2 diabetes mellitus without complication, without long-term current use of insulin Start:13-Oct-2016 Instruction Type:Provider Instructions for Treatment Patient Instructions Indication:Nonsmoker Start:30-Sep-2016 Instruction Type:Provider Instructions for Treatment How to access health Community [employer] online Indication:Uncontrolled type 2 diabetes mellitus without complication, without long-term current use of insulin Start:30-Sep-2016 Instruction Type:Patient Education How to access health informa [employer] online - Detail Indication:Uncontrolled type 2 diabetes mellitus without complication, without long-term current use of insulin Start:30-Sep-2016 Instruction Type:Patient Education Patient Instructions Indication:Hypothyroid Start:28-Aug-2013 Instruction Type:Provider Instructions for Treatment Patient Instructions Indication:Family history of diabetes mellitus Start:06-Mar-2013 Instruction Type:Provider Instructions for Treatment Name Dates Details How to access [employer] online Indication:Nonsmoker Start:03-Apr-2019 Instruction Type:Patient Education How to access health informa [employer] online - Detail Indication:Nonsmoker Start:03-Apr-2019 Instruction Type:Patient Education Patient Instructions Indication:Nonsmoker Start:03-Apr-2019 Instruction Type:Provider Instructions for Treatment How to access health Community [employer] online Indication:Diabetes mellitus type 2, uncontrolled (Renamed [...] Instructions for Treatment How to access health Community [employer] online Indication:Uncontrolled type 2 diabetes mellitus without [...] for Treatment DISCONTINUED - LIPID PANEL ( [id number]) Indication:Hypercholesteremia Start:13-Oct-2016 Instruction Type:Patient Education DISCONTINUED - Glucose, PP/2 Hour (31097) Indication:Family history of diabetes mellitus Start:13-Oct-2016 Instruction Type:Patient Education DISCONTINUED - Hemoglobin Glyclated (HGB A1C) (64079) Indication:Family history of diabetes mellitus Start:13-Oct-2016 Instruction [...] Instructions for Treatment How to access health Community [employer] online Indication:Uncontrolled type 2 diabetes mellitus without complication, without long-term current use of insulin Start:09-Dec-2016 Instruction Type:Patient Education How to access health informa [employer] online - Detail Indication:Uncontrolled type 2 diabetes mellitus without complication, without long-term current use of insulin Start:09-Dec-2016 Instruction Type:Patient Education Patient Instructions Indication:Uncontrolled type 2 diabetes mellitus without complication, without long-term current use of insulin Start:09-Dec-2016 Instruction Type:Provider Instructions for Treatment DISCONTINUED - LIPID PANEL ( [id number]) Indication:Hypercholesteremia Start:13-Oct-2016 Instruction Type:Patient Education DISCONTINUED - Glucose, PP/2 Hour (84933) Indication:Family history of diabetes mellitus Start:13-Oct-2016 Instruction Type:Patient Education DISCONTINUED - Hemoglobin Glyclated (HGB A1C) (30382) Indication:Family history of diabetes mellitus Start:13-Oct-2016 Instruction Type:Patient Education How to access health Community [email or web address] online Indication:Uncontrolled type 2 diabetes mellitus without complication, without long-term current use of insulin Start:13-Oct-2016 Instruction Type:Patient Education How to access health informa [employer] online - Detail Indication:Uncontrolled type 2 diabetes mellitus without complication, without long-term current use of insulin Start:13-Oct-2016 Instruction Type:Patient Education Patient Instructions Indication:Uncontrolled type 2 diabetes mellitus without complication, without long-term current use of insulin Start:13-Oct-2016 Instruction Type:Provider Instructions for Treatment Patient Instructions Indication:Nonsmoker Start:30-Sep-2016 Instruction Type:Provider Instructions for Treatment How to access health Community [employer] Indication:Uncontrolled type 2 diabetes mellitus without complication, without long-term current use of insulin Start:30-Sep-2016 Instruction Type:Patient Education How to access health informa [employer] - Detail Indication:Uncontrolled type 2 diabetes mellitus [...] for Treatment How to access health informa [employer] online Indication:Diabetes mellitus type II, controlled, with [...] for Treatment DISCONTINUED - LIPID PANEL ( [id number]) Indication:Hypercholesteremia Start:13-Oct-2016 Instruction Type:Patient Education DISCONTINUED - Glucose, PP/2 Hour (15201) Indication:Family history of diabetes mellitus Start:13-Oct-2016 Instruction Type:Patient Education DISCONTINUED - Hemoglobin Glyclated (HGB A1C) ([id number]) Indication:Family history of diabetes mellitus Start:13-Oct-2016 Instruction [...] Informa tion Online using Patient Portal and [employer] Indication:Acute sinusitis Start:24-Feb-2021 Instruction Type:Patient Education [...] for Treatment How to access health informa [employer] online Indication:Uncontrolled type 2 diabetes mellitus without [...] for Treatment DISCONTINUED - LIPID PANEL ( [id number]) Indication:Hypercholesteremia Start:13-Oct-2016 Instruction Type:Patient Education DISCONTINUED - Glucose, PP/2 Hour ([id number]) Indication:Family history of diabetes mellitus Start:13-Oct-2016 Instruction Type:Patient Education DISCONTINUED - Hemoglobin Glyclated (HGB A1C) ([id number]) Indication:Family history of diabetes mellitus Start:13-Oct-2016 Instruction [...] Informa tion Online using Patient Portal and [employer] Indication:Acute sinusitis Start:24-Feb-2021 Instruction Type:Patient Education [...] Type:Patient Education How to access health informa [employer] online - Detail Indication:Uncontrolled type 2 diabetes mellitus without complication, without long-term current use of insulin Start:07-May-2017 Instruction Type:Patient Education Patient Instructions Indication:Uncontrolled type 2 diabetes mellitus without complication, without long-term current use of insulin Start:07-May-2017 Instruction Type:Provider Instructions for Treatment Patient Instructions Indication:Nonsmoker Start:09-Feb-2017 Instruction Type:Provider Instructions for Treatment How to access health informa [employer] online Indication:Uncontrolled type 2 diabetes mellitus without [...] for Treatment DISCONTINUED - LIPID PANEL ( [id number]) Indication:Hypercholesteremia Start:13-Oct-2016 Instruction Type:Patient Education DISCONTINUED - Glucose, PP/2 Hour (85565) Indication:Family history of diabetes mellitus Start:13-Oct-2016 Instruction Type:Patient Education DISCONTINUED - Hemoglobin Glyclated (HGB A1C) (13290) Indication:Family history of diabetes mellitus Start:13-Oct-2016 Instruction Type:Patient Education How to access health informa [employer] online Indication:Uncontrolled type 2 diabetes mellitus without [...] for Treatment How to access health informa [employer] online Indication:Uncontrolled type 2 diabetes mellitus without [...] for Treatment DISCONTINUED - LIPID PANEL ( [id number]) Indication:Hypercholesteremia Start:13-Oct-2016 Instruction Type:Patient Education DISCONTINUED - Glucose, PP/2 Hour (84366) Indication:Family history of diabetes mellitus Start:13-Oct-2016 Instruction Type:Patient Education DISCONTINUED - Hemoglobin Glyclated (HGB A1C) (15753) Indication:Family history of diabetes mellitus Start:13-Oct-2016 Instruction Type:Patient Education How to access health informa [employer] online Indication:Uncontrolled type 2 diabetes mellitus without complication, without long-term current use of insulin Start:13-Oct-2016 Instruction Type:Patient Education How to access health informa [employer] online - Detail Indication:Uncontrolled type 2 diabetes mellitus without complication, without long-term current use of insulin Start:13-Oct-2016 Instruction Type:Patient Education Patient Instructions Indication:Uncontrolled type 2 diabetes mellitus without complication, without long-term current use of insulin Start:13-Oct-2016 Instruction Type:Provider Instructions for Treatment Patient Instructions Indication:Nonsmoker Start:30-Sep-2016 Instruction Type:Provider Instructions for Treatment How to access health informa [employer] online Indication:Uncontrolled type 2 diabetes mellitus without complication, without long-term current use of insulin Start:30-Sep-2016 Instruction Type:Patient Education How to access health informa [employer] online - Detail Indication:Uncontrolled type 2 diabetes [...] section and content) DATE CREATED AUTHOR 05/24/2018 [facility] ([place]) DATE CREATED AUTHOR AUTHOR'S ORGANIZ ATION 03/08/2021 [facility] DATE CREATED AUTHOR AUTHOR'S ORGANIZ ATION 01/20/2023 [facility] DATE CREATED AUTHOR AUTHOR'S ORGANIZ ATION 11/03/2024 [facility] DATE CREATED AUTHOR AUTHOR'S ORGANIZ ATION 06/02/2025 [facility] Goals (unrecognized section and content) Goals may [...] Provi tree, Attending Provider, Referring Provider Active Assembler 1[employer] Shift Relationship Specialty Start Date End Date Renata Mei DO [address] [facility] [address] [place] [address] PCP - General Internal Medicine 09/16/18 Renetta Najera [address] [place] [address] [phone] Specialty Admissions Manager Rn Obstetrics 12/19/18 Annika Sweeney MD [address] [place] [address] Physician Radiation Oncology 12/20/18 Team Status: Active [...] or prosecute any alcohol or drug abuse patient.[facility] FOR RECORDS PERTAINING TO PATIENTS WHO [...] BE BASED ON THE PRIMARY CLINICAL RECORDS. [facility] [employer] [facility]. provides no warranty or guarantee of the accuracy or completeness of information in this document.
[2025-06-07 05:04] LABS: Hematocrit 23.9 % (37-47); Hemoglobin 7.7 g/dL (12.0-15.0); Immature Granulocytes Count 0.060 X10^3/uL (0.0-0.0); Mean Corp Hgb Conc 32.2 g/dL (32-36); Mean Corpuscular Volume 84.5 fL (81-99); Mean Platelet Vol. 11.2 fl (6.2-12.0); NRBC Flagged by Analyzer 0 % (0-5); POSITIVE COUNT YES; Platelet Count 60 K/mm3 (150-450); RBC Distribution Width CV 15.9 % (11.6-14.6); RBC Distribution Width SD 47.7 fl (35.1-43.9); Red Blood Count 2.83 M/mm3 (4.2-5.4); White Blood Count 4.4 K/mm3 (4.4-11.0)
[2025-06-07 05:22] LABS: Anion Gap 8 (5-15); BUN 15 mg/dL (4-19); BUN/Creat Ratio 27.5 RATIO (10-20); Calcium,Total 8.4 mg/dL (7.6-11.0); Carbon Dioxide 21.0 mmol/L (21.0-32.0); Chloride 110 mmol/L (98-108); Estimated Creatinine Clearance 51.44 ml/min (50-250); Glucose 105 mg/dL (70-99); Potassium 4.2 mmol/L (3.3-5.1)
--- NOTE | 2025-06-07 07:03 | PCM.PN.HOSP ---
Reason for Visit Reason for Visit: Diagnoses Anemia, unspecified (06/06/25) Other malaise (06/06/25) Syncope and collapse (06/06/25) Unspecified fracture of shaft of humerus, left arm, initial encounter for closed fracture (06/06/25) Subjective Subjective Pain better controlled. Objective Data Objective Data Vital Signs: Vital Signs Temp Pulse Resp BP Pulse Ox O2 Del Method 36.2 C L 75 17 131/57 H 100 Room Air 06/07/25 02:00 06/07/25 02:00 06/07/25 02:00 06/07/25 02:00 06/07/25 02:00 06/07/25 02:00 Oxygen Delivery Method Room Air Weight: 74.6 kg Body Mass Index (BMI) 32.1 Intake & Output: Intake and Output for Last 24 Hours 06/05/25 06/06/25 06/07/25 23:59 23:59 23:59 Intake Total 2400 / 2400 Output Total 1400 / 1700 300 / 300 Balance 1000 / 700 -300 / -300 Lab / Micro Data 06/07/25 04:45 06/07/25 04:45 Labs: Laboratory Results - last 24 hr 06/06/25 03:00: WBC 7.4, RBC 2.69 L, Hgb 7.0 L, Hct 22.5 L, MCV 83.6, MCH 26.0 L, MCHC 31.1 L, RDW Std Deviation 48.2 H, RDW Coeff of Colten 15.9 H, Plt Count 65 L, MPV 11.6, Iron 100, TIBC 304, Iron Saturation 33.0, Unsaturated IBC 204 L, Ferritin 31, TSH 4.690 H 06/06/25 03:33: Crossmatch See Detail 06/06/25 06:49: Troponin T Hi Sens 4Hr 9, Vitamin B12 622, Vitamin D 25-Hydroxy 27.5 L 06/06/25 22:03: POC Glucose 123 H 06/07/25 04:45: WBC 4.4, RBC 2.83 L, Hgb 7.7 L, Hct 23.9 L, MCV 84.5, MCH 27.2, MCHC 32.2, RDW Std Deviation 47.7 H, RDW Coeff of Colten 15.9 H, Plt Count 60 L, MPV 11.2, Immature Gran % (Auto) 1.400 H, Neut % (Auto) 65.3, Lymph % (Auto) 20.9, Churchill % (Auto) 11.5 H, Eos % (Auto) 0.2, Baso % (Auto) 0.7, Absolute Neuts (auto) 2.8, Absolute Lymphs (auto) 0.91, Nucleated RBC % 0, Sodium 139, Potassium 4.2, Chloride 110 H, Carbon Dioxide 21.0, Anion Gap 8, BUN 15, Creatinine 0.54 L, Estim Creat Clear Calc 51.44, Est GFR (MDRD) Non-Af 94, BUN/Creatinine Ratio 27.5 H, Glucose 105 H, Hemoglobin A1c 6.9 H, Calcium 8.4 Micro: Microbiology 06/06/25 22:00 Stool Stool Occult Blood (ASHLY) - Final Occult Blood Positive Radiography Diagnostic Testing: Radiology Impression Abdomen/Pelvis CT 06/06/25 06:41 IMPRESSION: Scarring and/or atelectasis at the lung bases. Gallstones. A stone is seen in the neck of the gallbladder. Sigmoid diverticulosis. Splenomegaly. Reading Location: [facility]- Echocardiogram 06/06/25 11:12 Interpretation Summary Normal LV size. Left ventricular systolic function is normal. The left ventricular ejection fraction is 60 %. Moderate focal aortic valve calcification. Moderate aortic stenosis. There is mild to moderate mitral annular calcification. Contrast injection was performed. Ordering Physician: Kelvin Stein Performed By: Aj Warren RCS Physical Exam Const alert and no apparent distress HEENT moist oral mucous membranes HEENT Narrative: Still ecchymosis around left eye with subconjunctival hemorrhage. Resp normal respiratory effort, no retractions, no use of accessory muscles and clear to auscultation bilaterally Cardio regular rate and regular rhythm Cardio Narrative: 2 out of 6 holosystolic murmur GI normal to inspection, nondistended, normoactive bowel sounds and soft to palpation Extremity Extremity Narrative: Left arm in sling. Fading bruising of left anterior shoulder. Neuro Sensorium / Orientation: awake and alert Assessment & Plan Assessment/Plan (1) Syncope: PLAN: I suspect multifactorial vasovagal due to the, pain medications and then also component of micturition syncope. Also complicated by what appears to be moderate aortic stenosis. Echo shows EF of 60%. Moderate aortic stenosis. 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 Clinically she does not have anything to substantiate such a massive blood loss in her face nor her arm and nothing else visualized on any CT imaging of her chest nor abdomen. Patient reported that she was becoming anemic in October by some lab reports. Will check iron, total iron-binding capacity, ferritin, B12, folate and TSH. Additionally check Hemoccult. Patient ordered blood in the emergency room. Which she is currently receiving. Will monitor for now. Hemoccult positive. Iron 100. Patient did endorse that she has been using ibuprofen for her pain from her fracture. Will start her on pantoprazole. Consult GI. (3) Left humeral fracture: PLAN: Subsequent visits. Initial injury was May 31. Pain overall improved. Patient be nonweightbearing of the left upper extremity Discussed with Dr. Montilla, to whom she was supposed to see in the office today. He recommended outpatient follow-up and would anticipate just conservative management moving forward. 25-hydroxy vitamin D level low at 27.5. Will start ergocalciferol 50,000 units weekly for 8 weeks. Hold cholecalciferol. (4) Debility: PLAN: Progressive since her fall and humerus fracture. PT OT evaluate and treat. Discussed with the patient's for member at bedside. That I would anticipate that she would likely require senior living facility as she was requiring much assistance at home but we would need to formally evaluate with therapy evaluations. PLAN: Plan Diabetes mellitus type 2: Continue with semaglutide. Sliding scale insulin. Hypothyroidism: Continue levothyroxine Aortic stenosis: moderate on Echo. Follow up with cardiology for monitor. No need for replacement at this time. VTE prophylaxis with SCDs. CODE STATUS: Addressed with the patient. Patient wishes to be DNR Comfort Care arrest. Patient advised that she could change her mind anytime if she wishes but to inform us if she has. Charges/Coding Visit Charges Inpatient E&M: 20788 Subs Hosp L2
[2025-06-07] MEDS: Lidocaine 5% Patch 1 PATCH TOPICAL (09:15)
--- NOTE | 2025-06-07 09:19 | NURSING ---
Pt is notably aggravated w/ staff r/t inability to assist her immediately when tray came. Call light said she was waiting around 4 minutes as we were assisting other patients. This RN and LOOM OPERATOR APPRENTICE boosted the pt in bed and set up the breakfast tray and the pillow was removed from behind her L (broken arm) which is in a sling. Pt moans out in pain and says you guys know I have a broken arm right to which we verbalized yes and apologized about the quick removal of the pillow causing more pain. Pt demeanor is now short and of poor tone w/ staff. She asked this RN about her Rybelsus to which I replied that I told her yesterday we do not stock the medication in our pharmacy and that her would have to bring it in- she agreed to this yesterday yet the med was not provided. I told her to remind him to bring it when he comes. The pt's Mark came later and did not bring the med. The patient is now saying I'm really upset now and I don't want to talk I asked if I could get vitals before giving oxy for pain and the patient declined, so the patient was medicated for pain and the states I did a really bad thing and I'll let you know when she is ready to talk to you. Pt is now giving staff and the silent treatment and seems unsatisfied with care so the call light was left in reach and I told her to call with needs.
[2025-06-07] MEDS: Pantoprazole Sodium 40 MG in 0.9% Normal Saline (100mL MB+) 100 ML 300 MG IV (11:15)
[2025-06-07 11:17] VITALS: BP 107/48; PULSE 83; RESP 16; TEMP 36.4; O2SAT 96
[2025-06-07] MEDS: Ergocalciferol 1.25 MG (50, 000 UNIT) Capsule PO (11:17)
--- NOTE | 2025-06-07 12:05 | NURSING ---
PT has tried twice to assess pt. She becomes very upset and dismissive of staff whenever her current task gets interrupted, refuses, and has staff come back. Will monitor. Educated the pt on the why behind having PT assess her- i.e. possible SNF placement while recovering from trauma and mobility issues. She verbalizes understanding but is reluctant to comply with treatments unless it is fully on her terms.
--- NOTE | 2025-06-07 12:53 | CASEMGMT ---
JUAN COOPER Assessment Face to Face with patient for initial transition planning/care coordination assessment. RN KENNETH introduced self and role at [facility], pt voices understanding. Pt is A&Ox4 and is resting comfortably in bed and is calm. Pt's at bedside. Care providers, pharmacy, and demographics verified. Admitting dx: Syncope, Anemia LACE Strata: 3 PCP: Lani Alcazar Specialists: Eladia (Ortho Surgeon) Preferred Pharmacy: [facility] Insurance: [employer] [facility] Prescription Benefit: Yes LNOK: Kenji (H) Living Arrangements: Pt lives with her in a single story home with 3 steps to enter ADLs/IADLs: Pt reports that she is indep at baseline. However, pt reports that she is currently very weak. Transportation:Self, DME: [employer] with sufficient supplies. Sling. BP machine. Noted that the pt had a recent fall with a Lt Arm fx. Medical alert system information provided. HHC/SNF: denies hx Pt?s goal: Return to PLOF Plan: Anticipate SNF at DC due to pt's weakness. However, pt refused PT/OT evals twice today. Pt was educated on the importance of letting PT eval to help solidify safe DC planning. Pt states understanding and that she will work with therapy tomorrow. At this time, the pt states that she prefers a short term SNF stay at the time of DC to help the pt return to her PLOF. CM to follow PT evals and provide the pt with a list of SNF options once appropriate. Pt educated on the SNF process. Pt states understanding and denies further questions or concerns now. Lilly Roberson RN, CM
[2025-06-07 15:08] LABS: Folate, Hemolysate Test 351.0 ng/mL (Not Estab.); Folate, RBC (Hct) Test 23.1 % (34.0-46.6); Folates, RBC Test 1519 ng/mL (>498)
[2025-06-07 15:39] VITALS: BP 109/59; PULSE 96; RESP 19; TEMP 36.6; O2SAT 95
[2025-06-07 17:55] VITALS: BP 113/52; PULSE 98; RESP 18; TEMP 36.6; O2SAT 97
[2025-06-07 21:30] VITALS: BP 123/51; PULSE 88; RESP 16; TEMP 36.9; O2SAT 95
[2025-06-08 03:45] VITALS: BP 122/50; PULSE 79; RESP 16; TEMP 36.6; O2SAT 97
[2025-06-08 06:46] LABS: Hematocrit 25.5 % (37-47); Hemoglobin 8.1 g/dL (12.0-15.0); Mean Corp Hgb Conc 31.8 g/dL (32-36); Mean Corpuscular Volume 86.1 fL (81-99); Mean Platelet Vol. 11.8 fl (6.2-12.0); POSITIVE COUNT YES; Platelet Count 69 K/mm3 (150-450); RBC Distribution Width CV 16.2 % (11.6-14.6); RBC Distribution Width SD 50.0 fl (35.1-43.9); Red Blood Count 2.96 M/mm3 (4.2-5.4); White Blood Count 4.0 K/mm3 (4.4-11.0)
--- NOTE | 2025-06-08 08:06 | PN.HOSP_ITS ---
Reason for Visit Reason for Visit: Diagnoses Anemia, unspecified (06/06/25) Other malaise (06/06/25) Syncope and collapse (06/06/25) Unspecified fracture of shaft of humerus, left arm, initial encounter for closed fracture (06/06/25) Subjective Subjective Feeling okay. Still with pain in her left upper extremity. Objective Data Objective Data Vital Signs: Vital Signs Temp Pulse Resp BP Pulse Ox O2 Del Method 36.6 C 79 16 122/50 H 97 Room Air 06/08/25 03:45 06/08/25 03:45 06/08/25 03:45 06/08/25 03:45 06/08/25 03:45 06/08/25 03:45 Oxygen Delivery Method Room Air Weight: 74.6 kg Body Mass Index (BMI) 32.1 Intake & Output: Intake and Output for Last 24 Hours 06/06/25 06/07/25 06/08/25 23:59 23:59 23:59 Intake Total 2400 / 2400 100 / 100 Output Total 1400 / 1700 900 / 1500 1000 / 1000 Balance 1000 / 700 -800 / -1400 -1000 / -1000 Lab / Micro Data 06/08/25 06:08 06/07/25 04:45 Labs: Laboratory Results - last 24 hr 06/06/25 03:00: RBC Folate Hemolysate 351.0, RBC Folate 1519, Hematocrit 23.1 L 06/07/25 21:38: POC Glucose 174 H 06/08/25 06:08: WBC 4.0 L, RBC 2.96 L, Hgb 8.1 L, Hct 25.5 L, MCV 86.1, MCH 27.4, MCHC 31.8 L, RDW Std Deviation 50.0 H, RDW Coeff of Colten 16.2 H, Plt Count 69 L, MPV 11.8 06/08/25 06:42: POC Glucose 95 Micro: Microbiology 06/06/25 22:00 Stool Stool Occult Blood (ASHLY) - Final Occult Blood Positive Physical Exam Const alert and no apparent distress HEENT head/scalp atraumatic and moist oral mucous membranes Resp normal respiratory effort, no retractions, no use of accessory muscles and clear to auscultation bilaterally Cardio regular rate, regular rhythm, S1 normal heart sound and S2 normal heart sound GI normal to inspection, nondistended, normoactive bowel sounds, soft to palpation, non-tender and non-distended Extremity normal to inspection and full ROM Neuro Sensorium / Orientation: awake and alert Assessment & Plan Assessment/Plan (1) Syncope: PLAN: I suspect multifactorial vasovagal due to the, pain medications and then also component of micturition syncope. Also complicated by what appears to be moderate aortic stenosis. Echo shows EF of 60%. Moderate aortic stenosis. 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 Clinically she does not have anything to substantiate such a massive blood loss in her face nor her arm and nothing else visualized on any CT imaging of her chest nor abdomen. Patient reported that she was becoming anemic in October by some lab reports. Will check iron, total iron-binding capacity, ferritin, B12, folate and TSH. Additionally check Hemoccult. Patient ordered blood in the emergency room. Which she is currently receiving. Will monitor for now. Hemoccult positive. Iron 100. Patient did endorse that she has been using ibuprofen for her pain from her fracture. Will start her on pantoprazole. Consult GI. (3) Left humeral fracture: PLAN: Subsequent visits. Initial injury was May 31. Pain overall improved. Patient be nonweightbearing of the left upper extremity Patient to follow up w Dr. Montilla w outpatient follow-up and would anticipate just conservative management moving forward. 25-hydroxy vitamin D level low at 27.5. Will start ergocalciferol 50,000 units weekly for 8 weeks. Hold cholecalciferol. (4) Debility: PLAN: Progressive since her fall and humerus fracture. PT OT evaluate and treat. Discussed with the patient's for member at bedside. That I would anticipate that she would likely require shelter facility as she was requiring much assistance at home but we would need to formally evaluate with therapy evaluations. PLAN: Plan Diabetes mellitus type 2: Continue with semaglutide. Sliding scale insulin. Hypothyroidism: Continue levothyroxine Aortic stenosis: moderate on Echo. Follow up with cardiology for monitor. No need for replacement at this time. VTE prophylaxis with SCDs. CODE STATUS: Addressed with the patient. Patient wishes to be DNR Comfort Care arrest. Patient advised that she could change her mind anytime if she wishes but to inform us if she has. Charges/Coding Visit Charges Inpatient E&M: 16040 Subs Hosp L2
--- NOTE | 2025-06-08 09:36 | CASEMGMT ---
Discharge Planning A list of?SNF providers including quality and resource use data and consistent with the patient's preferred geographic region, medical needs, and insurance network was created in [employer] Guide.? This list was provided to the RN KENNETH. Jordyn Edwards, Discharge Planning Asst.
[2025-06-08 10:54] VITALS: BP 125/79; PULSE 87; RESP 18; TEMP 36.4; O2SAT 95
[2025-06-08] MEDS: Pantoprazole Sodium 40 MG in 0.9% Normal Saline (100mL MB+) 100 ML 300 MG IV (11:51)
[2025-06-08] MEDS: 0.9% Saline Lock 10 ML Syringe IV (11:53)
[2025-06-08] MEDS: Lidocaine 5% Patch 1 PATCH TOPICAL (11:56)
--- NOTE | 2025-06-08 11:58 | CASEMGMT ---
JUAN COOPER NOTE: RN CM to room. Pt resting in bed. @ bedside. Introduced self and role. SNF list provided to pt that was prepared by dc dental laboratory assistant. Pt states her 1st choice is [facility]. benjamin Cobb dental laboratory assistant made aware to send referral. Pt and reviewing list and will pick out 2 other SNF preferences in case [facility] unable to accept. Cornelius SMITHN JUAN COOPER
--- NOTE | 2025-06-08 11:58 | CASEMGMT ---
JUAN COOPER NOTE: RN CM to room. Pt resting in bed. @ bedside. Introduced self and role. SNF list provided to pt that was prepared by dc tmd teacher assistant. Pt states her 1st choice is [facility]. benjamin Cobb tmd teacher assistant made aware to send referral. Pt and reviewing list and will pick out 2 other SNF preferences in case [facility] unable to accept. Cornelius SMITHN JUAN COOPER
--- NOTE | 2025-06-08 14:10 | CASEMGMT ---
Discharge Planning [facility] has accepted and will submit for precert. JUAN CM updated. Jordyn Edwards DC Planning Asst.
--- NOTE | 2025-06-08 14:10 | CASEMGMT ---
Discharge Planning [facility] has accepted and will submit for precert. JUAN CM updated. Jordyn Edwards DC Planning Asst.
--- NOTE | 2025-06-08 15:41 | CASEMGMT ---
Discharge Planning Pt and her (Kenji) updated that [facility] has accepted and submitted for precert. Jordyn Edwards DC Planning Asst.
--- NOTE | 2025-06-08 15:41 | CASEMGMT ---
Discharge Planning Pt and her (Kenji) updated that [facility] has accepted and submitted for precert. Jordyn Edwards DC Planning Asst.
[2025-06-08 15:48] VITALS: BP 129/59; PULSE 91; RESP 16; TEMP 36.8; O2SAT 100
--- NOTE | 2025-06-08 17:47 | CASEMGMT ---
Social Work PASRR completed in [facility] in preparation for SNF admission. KOREY Monahan
--- NOTE | 2025-06-08 17:47 | CASEMGMT ---
Social Work PASRR completed in [facility] in preparation for SNF admission. KOREY Monahan
[2025-06-08 21:00] VITALS: BP 131/54; PULSE 87; RESP 16; TEMP 36.7; O2SAT 97
[2025-06-09 03:30] VITALS: BP 145/62; PULSE 87; RESP 16; TEMP 36.6; O2SAT 97
--- NOTE | 2025-06-09 07:53 | PN.HOSP_ITS ---
Reason for Visit Reason for Visit: Diagnoses Anemia, unspecified (06/06/25) Other malaise (06/06/25) Syncope and collapse (06/06/25) Unspecified fracture of shaft of humerus, left arm, initial encounter for closed fracture (06/06/25) Subjective Subjective Dizziness particularly with movment. Objective Data Objective Data Vital Signs: Vital Signs Temp Pulse Resp BP Pulse Ox O2 Del Method 36.6 C 87 16 145/62 H 97 Room Air 06/09/25 03:30 06/09/25 03:30 06/09/25 03:30 06/09/25 03:30 06/09/25 03:30 06/09/25 03:30 Oxygen Delivery Method Room Air Weight: 74.6 kg Body Mass Index (BMI) 32.1 Intake & Output: Intake and Output for Last 24 Hours 06/07/25 06/08/25 06/09/25 23:59 23:59 23:59 Intake Total 100 / 100 1060 / 1060 Output Total 900 / 1500 1750 / 2100 700 / 700 Balance -800 / -1400 -690 / -1040 -700 / -700 Lab / Micro Data 06/09/25 08:15 06/07/25 04:45 Labs: Laboratory Results - last 24 hr 06/08/25 11:55: POC Glucose 208 H 06/08/25 16:57: POC Glucose 169 H 06/08/25 21:06: POC Glucose 134 H 06/09/25 06:18: POC Glucose 122 H Micro: Microbiology 06/06/25 22:00 Stool Stool Occult Blood (ASHLY) - Final Occult Blood Positive Physical Exam Const alert and no apparent distress HEENT head/scalp atraumatic and moist oral mucous membranes HEENT Narrative: Left lateral nystagmus Resp normal respiratory effort and no retractions Extremity normal to inspection Assessment & Plan Assessment/Plan (1) Syncope: PLAN: I suspect multifactorial vasovagal due to the, pain medications and then also component of micturition syncope. Also complicated by what appears to be moderate aortic stenosis. Echo shows EF of 60%. Moderate aortic stenosis. (2) Anemia: PLAN: Lab work in [place] since August but some this may be more chronic than acute. Clinically she does not have anything to substantiate such a massive blood loss in her face nor her arm and nothing else visualized on any CT imaging of her chest nor abdomen. Patient reported that she was becoming anemic in October by some lab reports. Will check iron, total iron-binding capacity, ferritin, B12, folate and TSH. Additionally check Hemoccult. Patient ordered blood in the emergency room. Which she is currently receiving. Will monitor for now. Hemoccult positive. Iron 100. Patient did endorse that she has been using ibuprofen for her pain from her fracture. Will start her on pantoprazole. Consult GI. Interfered with review of her labs patient has had thrombocytopenia for years and now she has pancytopenic. This may be more of a bone marrow issue rather than GI loss upon further review. Will wait on GI evaluation though I feel that some the GI evaluation can take place as outpatient given her humerus fracture. Patient may need to follow-up with hematology and may need to have a bone marrow biopsy. (3) Left humeral fracture: PLAN: Subsequent visits. Initial injury was May 31. Pain overall improved. Patient be nonweightbearing of the left upper extremity Patient to follow up w Dr. Eladia smith outpatient follow-up and would anticipate just conservative management moving forward. 25-hydroxy vitamin D level low at 27.5. Will start ergocalciferol 50,000 units weekly for 8 weeks. Hold cholecalciferol. (4) Debility: PLAN: Progressive since her fall and humerus fracture. PT OT evaluate and treat. Discussed with the patient's for member at bedside. That I would anticipate that she would likely require senior living facility as she was requiring much assistance at home but we would need to formally evaluate with therapy evaluations. (5) Dizziness: PLAN: Concerning for PVD may have been exacerbated by her fall and head injury. Will schedule meclizine for now she is having symptoms with intact movement. PLAN: Plan Diabetes mellitus type 2: Continue with semaglutide. Sliding scale insulin. Hypothyroidism: Continue levothyroxine Aortic stenosis: moderate on Echo. Follow up with cardiology for monitor. No need for replacement at this time. VTE prophylaxis with SCDs. CODE STATUS: Addressed with the patient. Patient wishes to be DNR Comfort Care arrest. Patient advised that she could change her mind anytime if she wishes but to inform us if she has. Charges/Coding Visit Charges Inpatient E&M: 49235 Subs Hosp L2
[2025-06-09 08:00] VITALS: BP 131/69; PULSE 94; RESP 16; TEMP 36.5; O2SAT 98
[2025-06-09 08:54] LABS: Hematocrit 26.6 % (37-47); Hemoglobin 8.2 g/dL (12.0-15.0); Immature Granulocytes Count 0.050 X10^3/uL (0.0-0.0); Mean Corp Hgb Conc 30.8 g/dL (32-36); Mean Corpuscular Volume 86.9 fL (81-99); Mean Platelet Vol. 12.1 fl (6.2-12.0); NRBC Flagged by Analyzer 0 % (0-5); POSITIVE COUNT YES; Platelet Count 77 K/mm3 (150-450); RBC Distribution Width CV 16.4 % (11.6-14.6); RBC Distribution Width SD 50.6 fl (35.1-43.9); Red Blood Count 3.06 M/mm3 (4.2-5.4); White Blood Count 4.1 K/mm3 (4.4-11.0)
[2025-06-09] MEDS: Lidocaine 5% Patch 1 PATCH TOPICAL (10:00)
[2025-06-09] MEDS: Pantoprazole Sodium 40 MG in 0.9% Normal Saline (100mL MB+) 100 ML 300 MG IV (10:05)
[2025-06-09] MEDS: 0.9% Saline Lock 10 ML Syringe IV (10:05)
--- NOTE | 2025-06-09 10:50 | CASEMGMT ---
Social Work SW received referral from charge nurse as pt is concerned about dc plan. SW met with pt and and explained that referral had been made to [facility] and pt has been accepted and precert started. Pt stating that she does not want to go to [facility] but wants to go to [facility]. SW explained that there are no rooms available in [facility]CU at this time. Pt and are agreeable to proceed with [facility], but would like name placed on wait list for TCU. Email sent to Court in TCU. IVAN also explained that if pt is medically ready and [facility] has precert, pt will go to [facility] and pt is agreeable. SW offered to review list with pt for other SNF options and pt and spouse declined. Plan: [facility], pending precert KOREY De Anda
--- NOTE | 2025-06-09 10:50 | CASEMGMT ---
Social Work SW received referral from charge nurse as pt is concerned about dc plan. SW met with pt and and explained that referral had been made to [facility] and pt has been accepted and precert started. Pt stating that she does not want to go to [facility] but wants to go to [facility]. SW explained that there are no rooms available in TCU at this time. Pt and are agreeable to proceed with [facility], but would like name placed on wait list for TCU. Email sent to Court in [facility]CU. IVAN also explained that if pt is medically ready and [facility] has precert, pt will go to [facility] and pt is agreeable. SW offered to review list with pt for other SNF options and pt and spouse declined. Plan: [facility], pending precert KOREY De Anda
[2025-06-09 14:00] VITALS: BP 125/57; PULSE 73; RESP 16; TEMP 36; O2SAT 95
[2025-06-09 18:44] VITALS: BP 128/53; PULSE 94; RESP 16; TEMP 36.5; O2SAT 97
[2025-06-09 20:12] VITALS: BP 127/56; PULSE 88; RESP 18; TEMP 36.7; O2SAT 96
[2025-06-10 03:01] VITALS: BP 120/53; PULSE 83; RESP 16; TEMP 36.6; O2SAT 96
--- NOTE | 2025-06-10 08:00 | PCM.PN.HOSP ---
Reason for Visit Reason for Visit: Diagnoses Anemia, unspecified (06/06/25) Dizziness and giddiness (06/06/25) Other malaise (06/06/25) Syncope and collapse (06/06/25) Unspecified fracture of shaft of humerus, left arm, initial encounter for closed fracture (06/06/25) Subjective Subjective Feeling better. Dizziness better. State now that she does not want to go to [place] and what her to go home. Patient's will be able to care for her but also having family available. Just requesting a bedside commode. Objective Data Objective Data Vital Signs: Vital Signs Temp Pulse Resp BP Pulse Ox O2 Del Method 36.6 C 83 16 120/53 L 96 Room Air 06/10/25 03:01 06/10/25 03:01 06/10/25 03:01 06/10/25 03:01 06/10/25 03:01 06/10/25 03:02 Oxygen Delivery Method Room Air Weight: 74.6 kg Body Mass Index (BMI) 32.1 Intake & Output: Intake and Output for Last 24 Hours 06/08/25 06/09/25 06/10/25 23:59 23:59 23:59 Intake Total 1060 / 1060 1000 / 1000 Output Total 1750 / 2100 1200 / 1200 400 / 400 Balance -690 / -1040 -200 / -200 -400 / -400 Lab / Micro Data 06/09/25 08:15 06/07/25 04:45 Labs: Laboratory Results - last 24 hr 06/09/25 08:15: WBC 4.1 L, RBC 3.06 L, Hgb 8.2 L, Hct 26.6 L, MCV 86.9, MCH 26.8 L, MCHC 30.8 L, RDW Std Deviation 50.6 H, RDW Coeff of Colten 16.4 H, Plt Count 77 L, MPV 12.1 H, Immature Gran % (Auto) 1.200 H, Neut % (Auto) 66.0, Lymph % (Auto) 19.1, [place] % (Auto) 12.5 H, Eos % (Auto) 0.2, Baso % (Auto) 1.0, Absolute Neuts (auto) 2.7, Absolute Lymphs (auto) 0.78 L, Nucleated RBC % 0 06/09/25 11:39: POC Glucose 185 H 06/09/25 16:47: POC Glucose 112 H 06/09/25 18:34: POC Glucose 228 H 06/09/25 20:25: POC Glucose 161 H 06/10/25 06:29: POC Glucose 95 Micro: Microbiology 06/06/25 22:00 Stool Stool Occult Blood (ASHLY) - Final Occult Blood Positive Physical Exam Const alert and no apparent distress HEENT head/scalp atraumatic and moist oral mucous membranes Psych affect normal Assessment & Plan Assessment/Plan (1) Syncope: PLAN: I suspect multifactorial vasovagal due to the, pain medications and then also component of micturition syncope. Also complicated by what appears to be moderate aortic stenosis. Echo shows EF of 60%. Moderate aortic stenosis. 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 Clinically she does not have anything to substantiate such a massive blood loss in her face nor her arm and nothing else visualized on any CT imaging of her chest nor abdomen. Patient reported that she was becoming anemic in October by some lab reports. Will check iron, total iron-binding capacity, ferritin, B12, folate and TSH. Additionally check Hemoccult. Patient ordered blood in the emergency room. Which she is currently receiving. Will monitor for now. Hemoccult positive. Iron 100. Patient did endorse that she has been using ibuprofen for her pain from her fracture. Will start her on pantoprazole. Consult GI. Interfered with review of her labs patient has had thrombocytopenia for years and now she has pancytopenic. This may be more of a bone marrow issue rather than GI loss upon further review. Will wait on GI evaluation though I feel that some the GI evaluation can take place as outpatient given her humerus fracture. Patient may need to follow-up with hematology and may need to have a bone marrow biopsy. (3) Left humeral fracture: PLAN: Subsequent visits. Initial injury was May 31. Pain overall improved. Patient be nonweightbearing of the left upper extremity Patient to follow up w Dr. Eladia smith outpatient follow-up and would anticipate just conservative management moving forward. 25-hydroxy vitamin D level low at 27.5. Will start ergocalciferol 50,000 units weekly for 8 weeks. Hold cholecalciferol during this time. (4) Debility: PLAN: Progressive since her fall and humerus fracture. Now the plan is for the patient to go home. She will have assistance at home to help her. It has not been all set up yet so we will keep her here until the and plan is to discharge her home with family. She will need a prescription for a bedside commode. (5) Dizziness: PLAN: Concerning for PVD may have been exacerbated by her fall and head injury. Will schedule meclizine for now she is having symptoms with intact movement. PLAN: Plan Diabetes mellitus type 2: Continue with semaglutide. Sliding scale insulin. Hypothyroidism: Continue levothyroxine Aortic stenosis: moderate on Echo. Follow up with cardiology for monitor. No need for replacement at this time. VTE prophylaxis with SCDs. CODE STATUS: Addressed with the patient. Patient wishes to be DNR Comfort Care arrest. Patient advised that she could change her mind anytime if she wishes but to inform us if she has. Charges/Coding Visit Charges Inpatient E&M: 52176 [facility] Hosp L1
[2025-06-10 09:45] VITALS: BP 98/49; PULSE 96; RESP 16; TEMP 36.2; O2SAT 96
[2025-06-10] MEDS: Lidocaine 5% Patch 1 PATCH TOPICAL (09:50)
[2025-06-10 15:00] VITALS: BP 104/50; PULSE 100; RESP 16; TEMP 36.1; O2SAT 95
[2025-06-10 20:41] VITALS: BP 114/51; PULSE 100; RESP 17; TEMP 36.6; O2SAT 97
[2025-06-10] MEDS: 0.9% Saline Lock 10 ML Syringe IV (22:16)
[2025-06-11 02:34] VITALS: BP 116/47; PULSE 82; RESP 17; TEMP 36.5; O2SAT 95
--- NOTE | 2025-06-11 08:12 | PN.HOSP_ITS ---
Reason for Visit Chief Complaint: Syncope Subjective Subjective Feeling better overall. Objective Data Objective Data Vital Signs: Vital Signs Temp Pulse Resp BP Pulse Ox O2 Del Method 36.5 C L 82 17 116/47 L 95 Room Air 06/11/25 02:34 06/11/25 02:34 06/11/25 02:34 06/11/25 02:34 06/11/25 02:34 06/11/25 03:40 Oxygen Delivery Method Room Air Weight: 74.6 kg Body Mass Index (BMI) 32.1 Intake & Output: Intake and Output for Last 24 Hours 06/09/25 06/10/25 06/11/25 23:59 23:59 23:59 Intake Total 1000 / 1000 920 / 920 400 / 400 Output Total 1200 / 1200 2150 / 2150 200 / 200 Balance -200 / -200 -1230 / -1230 200 / 200 Lab / Micro Data 06/09/25 08:15 06/07/25 04:45 Labs: Laboratory Results - last 24 hr 06/10/25 12:17: POC Glucose 201 H 06/10/25 17:10: POC Glucose 141 H 06/10/25 22:11: POC Glucose 207 H 06/11/25 06:44: POC Glucose 189 H Micro: Microbiology 06/06/25 22:00 Stool Stool Occult Blood (ASHLY) - Final Occult Blood Positive Physical Exam Const alert and no apparent distress Constitutional Narrative: Up in chair. Neuro Sensorium / Orientation: awake and alert Assessment & Plan Assessment/Plan (1) Syncope: PLAN: I suspect multifactorial vasovagal due to the, pain medications and then also component of micturition syncope. Also complicated by what appears to be moderate aortic stenosis. Echo shows EF of 60%. Moderate aortic stenosis. 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 Clinically she does not have anything to substantiate such a massive blood loss in her face nor her arm and nothing else visualized on any CT imaging of her chest nor abdomen. Patient reported that she was becoming anemic in October by some lab reports. Will check iron, total iron-binding capacity, ferritin, B12, folate and TSH. Additionally check Hemoccult. Patient ordered blood in the emergency room. Which she is currently receiving. Will monitor for now. Hemoccult positive. Iron 100. Patient did endorse that she has been using ibuprofen for her pain from her fracture. Will start her on pantoprazole. Consult GI. Interfered with review of her labs patient has had thrombocytopenia for years and now she has pancytopenic. This may be more of a bone marrow issue rather than GI loss upon further review. Will wait on GI evaluation though I feel that some the GI evaluation can take place as outpatient given her humerus fracture. Patient may need to follow-up with hematology and may need to have a bone marrow biopsy. (3) Left humeral fracture: PLAN: Subsequent visits. Initial injury was May 31. Pain overall improved. Patient be nonweightbearing of the left upper extremity Patient to follow up w Dr. Eladia smith outpatient follow-up and would anticipate just conservative management moving forward. 25-hydroxy vitamin D level low at 27.5. Will start ergocalciferol 50,000 units weekly for 8 weeks. Hold cholecalciferol during this time. (4) Debility: PLAN: Progressive since her fall and humerus fracture. Plan change for the patient go to the SNF to her going home yesterday but and actually conferred with that she and her today that that the plan is to go home with home health care. They both said that was. Case management went in and then discussed options with him and then now her looking at going to the transitional care unit. (5) Dizziness: PLAN: Concerning for PVD may have been exacerbated by her fall and head injury. Will schedule meclizine for now she is having symptoms with intact movement. PLAN: Plan Diabetes mellitus type 2: Continue with semaglutide. Sliding scale insulin. Hypothyroidism: Continue levothyroxine Aortic stenosis: moderate on Echo. Follow up with cardiology for monitor. No need for replacement at this time. VTE prophylaxis with SCDs. CODE STATUS: Addressed with the patient. Patient wishes to be DNR Comfort Care arrest. Patient advised that she could change her mind anytime if she wishes but to inform us if she has. Charges/Coding Visit Charges Inpatient E&M: 75978 [facility] Hosp L1
[2025-06-11 08:34] VITALS: BP 127/44; PULSE 80; RESP 14; TEMP 36.4; O2SAT 97
--- NOTE | 2025-06-11 10:18 | CASEMGMT ---
Discharge Planning Pt has chosen to go to TCU. [facility] updated and asked to withdraw precert. Jordyn Edwards DC Planning Asst.
--- NOTE | 2025-06-11 10:18 | CASEMGMT ---
Discharge Planning Pt has chosen to go to TCU. [facility] updated and asked to withdraw precert. Jordyn Edwards DC Planning Asst.
--- NOTE | 2025-06-11 10:22 | CASEMGMT ---
JUAN COOPER received update from TCU that they would be able to accept patient and have bed available tomorrow. Court, liaison from TCU, asked if patient could supply medication Prakash, JUAN COOPER to inquire with patient. JUAN COOPER updated by hospitalist that patient is ready for discharge and that patient and may want to go home now. JUAN COOPER in to patient's room to discuss discharge planning. JUAN COOPER updated patient and regarding options of TCU vs home with [facility] and requested equipment. After reviewing options, patient and state they would like to discharge to TCU and they will be able to bring [facility] for on TCU. JUAN COOPER update TCU that patient is agreeable to TCU and requested precert to be started. JUAN COOPER updated hospitalist.
--- NOTE | 2025-06-11 10:22 | CASEMGMT ---
JUAN COOPER received update from TCU that they would be able to accept patient and have bed available tomorrow. Court, liaison from TCU, asked if patient could supply medication Prakash, JUAN COOPER to inquire with patient. JUAN COOPER updated by hospitalist that patient is ready for discharge and that patient and may want to go home now. JUAN COOPER in to patient's room to discuss discharge planning. JUAN COOPER updated patient and regarding options of TCU vs home with [facility] and requested equipment. After reviewing options, patient and state they would like to discharge to TCU and they will be able to bring [facility] for on TCU. JUAN COOPER update TCU that patient is agreeable to TCU and requested precert to be started. JUAN COOPER updated hospitalist.
[2025-06-11 14:53] VITALS: BP 117/57; PULSE 100; RESP 16; TEMP 36.9; O2SAT 98
[2025-06-11 20:30] VITALS: BP 122/46; PULSE 86; RESP 18; TEMP 36.4; O2SAT 97
[2025-06-12 02:28] VITALS: BP 99/43; PULSE 80; RESP 18; TEMP 36.5; O2SAT 95
[2025-06-12 06:45] VITALS: BP 116/48; PULSE 85; RESP 16; TEMP 36.4; O2SAT 96
[2025-06-12] MEDS: 0.9% Saline Lock 10 ML Syringe IV (07:02)
--- NOTE | 2025-06-12 08:40 | PN.HOSP_ITS ---
Reason for Visit Chief Complaint: Syncope Subjective Subjective Feeling well. No other events. Objective Data Objective Data Vital Signs: Vital Signs Temp Pulse Resp BP Pulse Ox O2 Del Method 36.4 C L 85 16 116/48 L 96 Room Air 06/12/25 06:45 06/12/25 06:45 06/12/25 06:45 06/12/25 06:45 06/12/25 06:45 06/12/25 06:45 Oxygen Delivery Method Room Air Weight: 74.6 kg Body Mass Index (BMI) 32.1 Intake & Output: Intake and Output for Last 24 Hours 06/10/25 06/11/25 06/12/25 23:59 23:59 23:59 Intake Total 920 / 920 1000 / 1500 700 / 700 Output Total 2150 / 2150 200 / 600 875 / 875 Balance -1230 / -1230 800 / 900 -175 / -175 Lab / Micro Data 06/09/25 08:15 06/07/25 04:45 Labs: Laboratory Results - last 24 hr 06/11/25 11:15: POC Glucose 216 H 06/11/25 16:47: POC Glucose 137 H 06/11/25 21:44: POC Glucose 180 H 06/12/25 06:38: POC Glucose 117 H Micro: Microbiology 06/06/25 22:00 Stool Stool Occult Blood (ASHLY) - Final Occult Blood Positive Physical Exam Const alert and no apparent distress HEENT head/scalp atraumatic and moist oral mucous membranes Neuro Sensorium / Orientation: awake and alert Assessment & Plan Assessment/Plan (1) Syncope: PLAN: I suspect multifactorial vasovagal due to the, pain medications and then also component of micturition syncope. Also complicated by what appears to be moderate aortic stenosis. Echo shows EF of 60%. Moderate aortic stenosis. 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 Clinically she does not have anything to substantiate such a massive blood loss in her face nor her arm and nothing else visualized on any CT imaging of her chest nor abdomen. Patient reported that she was becoming anemic in October by some lab reports. Will check iron, total iron-binding capacity, ferritin, B12, folate and TSH. Additionally check Hemoccult. Patient ordered blood in the emergency room. Which she is currently receiving. Will monitor for now. Hemoccult positive. Iron 100. Patient did endorse that she has been using ibuprofen for her pain from her fracture. Will start her on pantoprazole. Consult GI. Interfered with review of her labs patient has had thrombocytopenia for years and now she has pancytopenic. This may be more of a bone marrow issue rather than GI loss upon further review. Will wait on GI evaluation though I feel that some the GI evaluation can take place as outpatient given her humerus fracture. Patient may need to follow-up with hematology and may need to have a bone marrow biopsy. (3) Left humeral fracture: PLAN: Subsequent visits. Initial injury was May 31. Pain overall improved. Patient be nonweightbearing of the left upper extremity Patient to follow up w Dr. Eladia smith outpatient follow-up and would anticipate just conservative management moving forward. 25-hydroxy vitamin D level low at 27.5. Will start ergocalciferol 50,000 units weekly for 8 weeks. Hold cholecalciferol during this time. (4) Debility: PLAN: Progressive since her fall and humerus fracture. Plan change for the patient go to the SNF to her going home yesterday but and actually conferred with that she and her today that that the plan is to go home with home health care. They both said that was. Case management went in and then discussed options with him and then now her looking at going to the transitional care unit. (5) Dizziness: PLAN: Concerning for PVD may have been exacerbated by her fall and head injury. Will schedule meclizine for now she is having symptoms with intact movement. PLAN: Plan Diabetes mellitus type 2: Continue with semaglutide. Sliding scale insulin. Hypothyroidism: Continue levothyroxine Aortic stenosis: moderate on Echo. Follow up with cardiology for monitor. No need for replacement at this time. VTE prophylaxis with SCDs. CODE STATUS: Addressed with the patient. Patient wishes to be DNR Comfort Care arrest. Patient advised that she could change her mind anytime if she wishes but to inform us if she has. Disposition: Patient now agreeing to go to the transitional care unit. Waiting on insurance authorization. Charges/Coding Visit Charges Inpatient E&M: 44920 [facility] Hosp L1
[2025-06-12 09:55] VITALS: BP 120/50; PULSE 75; RESP 18; TEMP 36.6; O2SAT 98
[2025-06-12] MEDS: Lidocaine 5% Patch 1 PATCH TOPICAL (09:57)
--- NOTE | 2025-06-12 11:27 | PCM.TXEXTCAR ---
Diet Diet Order/Speech Therapy: INPATIENT Hospital Diet / Speech Therapy Order(s) 06/06/25 11:12 Diet: Cardiac: Calorie-Controlled Food consistency:: Regular Liquid Consistency:: Regular/Thin Dietary Modifications:: Consistent Carbohydrate How many daily calories?: 1800 calorie Routine Orders/Code Status Code Status: DNRCC-A DC O2, CPAP, BIPAP needs Home O2 Discharge instructions: No Therapies Weight Bearing: Non weight bearing Extremity Affected:: Left Upper Physical Therapy: Eval and Treat Occupational Therapy: Eval and Treat Problem/Diagnosis (1) Syncope: Status: Acute Code(s): R55 - Syncope and collapse Plan: I suspect multifactorial vasovagal due to the, pain medications and then also component of micturition syncope. Also complicated by what appears to be moderate aortic stenosis. Echo shows EF of 60%. Moderate aortic stenosis. 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 Clinically she does not have anything to substantiate such a massive blood loss in her face nor her arm and nothing else visualized on any CT imaging of her chest nor abdomen. Patient reported that she was becoming anemic in October by some lab reports. Will check iron, total iron-binding capacity, ferritin, B12, folate and TSH. Additionally check Hemoccult. Patient ordered blood in the emergency room. Which she is currently receiving. Will monitor for now. Hemoccult positive. Iron 100. Patient did endorse that she has been using ibuprofen for her pain from her fracture. Will start her on pantoprazole. Consult GI. Interfered with review of her labs patient has had thrombocytopenia for years and now she has pancytopenic. This may be more of a bone marrow issue rather than GI loss upon further review. Will wait on GI evaluation though I feel that some the GI evaluation can take place as outpatient given her humerus fracture. Patient may need to follow-up with hematology and may need to have a bone marrow biopsy. (3) Left humeral fracture: Status: Acute Code(s): S42.302A - Unspecified fracture of shaft of humerus, left arm, initial encounter for closed fracture Plan: Subsequent visits. Initial injury was May 31. Pain overall improved. Patient be nonweightbearing of the left upper extremity Patient to follow up w Dr. Borruso w outpatient follow-up and would anticipate just conservative management moving forward. 25-hydroxy vitamin D level low at 27.5. Will start ergocalciferol 50,000 units weekly for 8 weeks. Hold cholecalciferol during this time. (4) Debility: Status: Acute Code(s): R53.81 - Other malaise Plan: Progressive since her fall and humerus fracture. Plan change for the patient go to the SNF to her going home yesterday but and actually conferred with that she and her today that that the plan is to go home with home health care. They both said that was. Case management went in and then discussed options with him and then now her looking at going to the transitional care unit. (5) Dizziness: Status: Acute Code(s): R42 - Dizziness and giddiness Plan: Concerning for PVD may have been exacerbated by her fall and head injury. Will schedule meclizine for now she is having symptoms with intact movement. Plan Diabetes mellitus type 2: Continue with semaglutide. Sliding scale insulin. Hypothyroidism: Continue levothyroxine Aortic stenosis: moderate on Echo. Follow up with cardiology for monitor. No need for replacement at this time. VTE prophylaxis with SCDs. CODE STATUS: Addressed with the patient. Patient wishes to be DNR Comfort Care arrest. Patient advised that she could change her mind anytime if she wishes but to inform us if she has. Disposition: Patient now agreeing to go to the transitional care unit. Waiting on insurance authorization. Allergies/Procedures Done in Hospital Allergies latex Allergy (Verified 06/06/25 02:24) Rash Penicillins (PCN) Allergy (Verified 06/06/25 02:24) Rash Type of Care/Length of Stay Estimated LOS: Convalescent Care Less Than 30 days Type of Care Needed: Skilled Rehab Potential: Good Prognosis: Good Additional Orders/Day of Discharge Day of Discharge: 06/12/25 Dietary and Speech Recommendations Dietitian Recommendations/Changes: Will continue 1800 calorie/consistent carbohydrate; cardiac. Will offer PO Glucerna shake as needed if PO fails at meals; defer for now. Discharge Plan Admission Admit Date/Time: 06/06/25 08:55 Primary Reason for Your Visit: debility. Attending Provider: Kelvin Stein Primary Care Provider: Lani Alcazar Discharge Orders/Prescriptions Prescriptions: New acetaminophen 500 mg Tablet 1,000 mg PO Q8 Qty: 0 0RF ergocalciferol (vitamin D2) [Vitamin D2] 1,250 mcg (50,000 unit) Capsule 1,250 mcg PO Q7D Qty: 7 0RF insulin lispro [Humalog KwikPen Insulin] 100 unit/mL Insulin Pen See Protocol subcut ACHS Qty: 0 0RF Protocol: 2. Sliding Scale Insulin Low-Med Dosing Condition: 150-209 mg/dl = 1 unit Condition: 210-269 mg/dl = 2 units Condition: 270-329 mg/dl = 3 units Condition: 330-389 mg/dl = 4 units Condition: 390-449 mg/dl = 5 units Condition: Greater than 449 call physician Protocol Text: Suggested for: - Patients on Total Daily Insulin Dose of 28-36 units - Average body habitus patients LOW MEDIUM DOSING ALGORITHM meclizine [Travel-Ease (meclizine)] 25 mg Tablet 25 mg PO TID PRN (Reason: Dizziness) Qty: 0 0RF lidocaine 5 % Adhesive Patch,Medicated 1 patch topical DAILY Qty: 0 0RF Protocol: *Topical Application Instructions APPLICATION INSTRUCTIONS: left upper extremity. oxycodone 5 mg Tablet 5 mg PO Q4H PRN PRN (Reason: Pain Score 4-10) 3 Days Qty: 12 0RF pantoprazole 40 mg Tablet,Delayed Release (Dr/Ec) 40 mg PO DAILY Qty: 0 0RF Remove Patch 1 patch topical DAILY@2200 Qty: 4 0RF Continued ezetimibe [Zetia] 10 mg tablet 10 mg PO QDAY glimepiride 4 mg tablet 4 mg PO QAM Rx Instructions: administer with breakfast levothyroxine [Synthroid] 25 MCG tablet 25 mcg PO DAILY Fish Oil 500 MG capsule,delayed release(DR/EC) 500 mg PO DAILY Rybelsus 14 mg tablet 14 mg PO DAILY Held cholecalciferol (vitamin D3) [Vitamin D3] 1,000 UNIT capsule 1,000 unit PO DAILY Hold Instructions: Resume on 08/02/25. Discontinued hydrocodone-acetaminophen 5-325 mg tablet 1 tab PO Q6H PRN PRN (Reason: Pain) 3 Days Qty: 10 0RF Referrals / Follow Up: Lani Alcazar NP-C [Primary Care Provider] - Within 2 Weeks Bradley Dougherty MD [Med Staff - Active Staff] - Within 2 Weeks Disposition Disposition (needs filled in before D/C Order can be placed): Custodial Facility
[2025-06-12 12:33] VITALS: O2SAT 96
[2025-06-12 14:00] VITALS: BP 124/54; PULSE 101; RESP 16; TEMP 36.6; O2SAT 95
[2025-06-12 21:00] VITALS: BP 115/50; PULSE 85; RESP 14; TEMP 36.4; O2SAT 98
[2025-06-13 03:00] VITALS: BP 113/54; PULSE 93; RESP 14; TEMP 36.7; O2SAT 97
--- NOTE | 2025-06-13 08:53 | PCM.PN.HOSP ---
Reason for Visit Chief Complaint: Syncope Subjective Subjective No new events Objective Data Objective Data Vital Signs: Vital Signs Temp Pulse Resp BP Pulse Ox O2 Del Method 36.7 C 93 14 113/54 L 97 Room Air 06/13/25 03:00 06/13/25 03:00 06/13/25 03:00 06/13/25 03:00 06/13/25 03:00 06/13/25 03:38 Oxygen Delivery Method Room Air Weight: 74.6 kg Body Mass Index (BMI) 32.1 Intake & Output: Intake and Output for Last 24 Hours 06/11/25 06/12/25 06/13/25 23:59 23:59 23:59 Intake Total 1000 / 1500 1100 / 1100 120 / 120 Output Total 200 / 600 875 / 875 Balance 800 / 900 225 / 225 120 / 120 Lab / Micro Data 06/13/25 09:48 06/13/25 09:53 Labs: Laboratory Results - last 24 hr 06/12/25 11:31: POC Glucose 220 H 06/12/25 17:08: POC Glucose 185 H 06/12/25 21:10: POC Glucose 198 H 06/13/25 06:33: POC Glucose 129 H Micro: Microbiology 06/06/25 22:00 Stool Stool Occult Blood (ASHLY) - Final Occult Blood Positive Physical Exam Const alert and no apparent distress Constitutional Narrative: Up in chair. HEENT head/scalp atraumatic and moist oral mucous membranes Assessment & Plan Assessment/Plan (1) Syncope: PLAN: I suspect multifactorial vasovagal due to the, pain medications and then also component of micturition syncope. Also complicated by what appears to be moderate aortic stenosis. Echo shows EF of 60%. Moderate aortic stenosis. 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 Clinically she does not have anything to substantiate such a massive blood loss in her face nor her arm and nothing else visualized on any CT imaging of her chest nor abdomen. Patient reported that she was becoming anemic in October by some lab reports. Will check iron, total iron-binding capacity, ferritin, B12, folate and TSH. Additionally check Hemoccult. Patient ordered blood in the emergency room. Which she is currently receiving. Will monitor for now. Hemoccult positive. Iron 100. Patient did endorse that she has been using ibuprofen for her pain from her fracture. Will start her on pantoprazole. Consult GI. Interfered with review of her labs patient has had thrombocytopenia for years and now she has pancytopenic. This may be more of a bone marrow issue rather than GI loss upon further review. Will wait on GI evaluation though I feel that some the GI evaluation can take place as outpatient given her humerus fracture. Patient may need to follow-up with hematology and may need to have a bone marrow biopsy. (3) Left humeral fracture: PLAN: Subsequent visits. Initial injury was May 31. Pain overall improved. Patient be nonweightbearing of the left upper extremity Patient to follow up w Dr. Montilla w outpatient follow-up and would anticipate just conservative management moving forward. 25-hydroxy vitamin D level low at 27.5. Will start ergocalciferol 50,000 units weekly for 8 weeks. Hold cholecalciferol during this time. (4) Debility: PLAN: Progressive since her fall and humerus fracture. Plan change for the patient go to the SNF to her going home yesterday but and actually conferred with that she and her today that that the plan is to go home with home health care. They both said that was. Case management went in and then discussed options with him and then now her looking at going to the transitional care unit. (5) Dizziness: PLAN: Concerning for PVD may have been exacerbated by her fall and head injury. Will schedule meclizine for now she is having symptoms with intact movement. PLAN: Plan Diabetes mellitus type 2: Continue with semaglutide. Sliding scale insulin. Hypothyroidism: Continue levothyroxine Aortic stenosis: moderate on Echo. Follow up with cardiology for monitor. No need for replacement at this time. VTE prophylaxis with SCDs. CODE STATUS: Addressed with the patient. Patient wishes to be DNR Comfort Care arrest. Patient advised that she could change her mind anytime if she wishes but to inform us if she has. Disposition: Patient now agreeing to go to the transitional care unit. Waiting on insurance authorization. Avoidable day: patient has been stable for discharge since 06/09. Charges/Coding Visit Charges Inpatient E&M: 50915 Subs Hosp L1
[2025-06-13 09:10] VITALS: BP 115/46; PULSE 79; RESP 14; TEMP 36.6; O2SAT 97
[2025-06-13] MEDS: Lidocaine 5% Patch 1 PATCH TOPICAL (09:12)
[2025-06-13 10:11] LABS: Hematocrit 27.4 % (37-47); Hemoglobin 8.9 g/dL (12.0-15.0); Immature Granulocytes Count 0.050 X10^3/uL (0.0-0.0); Mean Corp Hgb Conc 32.5 g/dL (32-36); Mean Corpuscular Volume 85.1 fL (81-99); Mean Platelet Vol. 11.2 fl (6.2-12.0); NRBC Flagged by Analyzer 0.4 % (0-5); POSITIVE COUNT YES; Platelet Count 94 K/mm3 (150-450); RBC Distribution Width CV 18.1 % (11.6-14.6); RBC Distribution Width SD 52.9 fl (35.1-43.9); Red Blood Count 3.22 M/mm3 (4.2-5.4); White Blood Count 4.6 K/mm3 (4.4-11.0)
[2025-06-13 10:40] LABS: Anion Gap 10 (5-15); BUN 15 mg/dL (4-19); BUN/Creat Ratio 21.9 RATIO (10-20); Calcium,Total 9.3 mg/dL (7.6-11.0); Carbon Dioxide 21.7 mmol/L (21.0-32.0); Chloride 105 mmol/L (98-108); Estimated Creatinine Clearance 51.44 ml/min (50-250); Glucose 220 mg/dL (70-99); Potassium 4.4 mmol/L (3.3-5.1)
[2025-06-13 14:26] VITALS: BP 133/58; PULSE 93; RESP 14; TEMP 36.4; O2SAT 95
--- NOTE | 2025-06-13 14:56 | CASEMGMT ---
JUAN COOPER updated by TCU that patient has been denied by insurance for skilled LOC, with option for appeal. JUAN COOPER in to updated patient and . JUAN COOPER informed patient of insurance denial for TCU and right to appeal decision. Patient and decline to appeal denial and would like to discharge home. JUAN COOPER discuss HHC vs outpatient therapy and patient states he will not be home bound and would like outpatient therapy at discharge and prefers [facility]. Patient would like [facility] to call patient to schedule appointment. Patient would also like [facility] at discharge and prefers [facility]. Patient denied further needs or concerns. Patient and had no further questions. JUAN COOPER updated hospitalist, scripts received for therapy and DME. JUAN COOPER sent referral to [facility] and arranged for walker to be delivered to patient room. JUAN COOPER sent referral to [facility] with request to schedule appointment with patient. JUAN COOPER updated discharge plan.
--- NOTE | 2025-06-13 14:58 | DS.PCM_ITS ---
Providers Date of Admission: 06/06/25 Primary Care Physician: ADRIANO Burgess Consultations 06/08/25 10:27 Consult: Gastroenterology Routine Consulting Provider: [facility] Reason for Consult: anemia EMERGENT Consult: No MD Notified: Yes Date Notified: 06/08/25 Time Notified: 10:27 Method of Notification: notified per Dr. Stein Reason For Visit: SYNCOPE, ANEMIA Diagnosis Discharge Diagnosis (1) Syncope: Status: Acute Code(s): R55 - Syncope and collapse Plan: I suspect multifactorial vasovagal due to the, pain medications and then also component of micturition syncope. Also complicated by what appears to be moderate aortic stenosis. Echo shows EF of 60%. Moderate aortic stenosis. 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 Clinically she does not have anything to substantiate such a massive blood loss in her face nor her arm and nothing else visualized on any CT imaging of her chest nor abdomen. Patient reported that she was becoming anemic in October by some lab reports. Will check iron, total iron-binding capacity, ferritin, B12, folate and TSH. Additionally check Hemoccult. Patient ordered blood in the emergency room. Which she is currently receiving. Will monitor for now. Hemoccult positive. Iron 100. Patient did endorse that she has been using ibuprofen for her pain from her fracture. Will start her on pantoprazole. Consult GI. Interfered with review of her labs patient has had thrombocytopenia for years and now she has pancytopenic. This may be more of a bone marrow issue rather than GI loss upon further review. Will wait on GI evaluation though I feel that some the GI evaluation can take place as outpatient given her humerus fracture. Patient may need to follow-up with hematology and may need to have a bone marrow biopsy. (3) Left humeral fracture: Status: Acute Code(s): S42.302A - Unspecified fracture of shaft of humerus, left arm, initial encounter for closed fracture Plan: Subsequent visits. Initial injury was May 31. Pain overall improved. Patient be nonweightbearing of the left upper extremity Patient to follow up w Dr. Eladia smith outpatient follow-up and would anticipate just conservative management moving forward. 25-hydroxy vitamin D level low at 27.5. Will start ergocalciferol 50,000 units weekly for 8 weeks. Hold cholecalciferol during this time. (4) Debility: Status: Acute Code(s): R53.81 - Other malaise Plan: Progressive since her fall and humerus fracture. Plan change for the patient go to the SNF to her going home yesterday but and actually conferred with that she and her today that that the plan is to go home with home health care. They both said that was. Case management went in and then discussed options with him and then now her looking at going to the transitional care unit. (5) Dizziness: Status: Acute Code(s): R42 - Dizziness and giddiness Plan: Concerning for PVD may have been exacerbated by her fall and head injury. Will schedule meclizine for now she is having symptoms with intact movement. Plan Diabetes mellitus type 2: Continue with semaglutide. Sliding scale insulin. Hypothyroidism: Continue levothyroxine Aortic stenosis: moderate on Echo. Follow up with cardiology for monitor. No need for replacement at this time. VTE prophylaxis with SCDs. CODE STATUS: Addressed with the patient. Patient wishes to be DNR Comfort Care arrest. Patient advised that she could change her mind anytime if she wishes but to inform us if she has. Disposition: Patient now agreeing to go to the transitional care unit. Waiting on insurance authorization. Avoidable day: patient has been stable for discharge since 06/09. Medications at Discharge Home Medications cholecalciferol (vitamin D3) 25 mcg (1,000 unit) capsule (Vitamin D3) 1,000 unit PO DAILY SUPPLEMENT 10/03/18 Held on 06/12/25. Instructions: Resume on 08/02/25. levothyroxine 25 mcg tablet (Synthroid) 25 mcg PO DAILY THYROID 10/03/18 omega 3-dha 60 mg-epa 90 mg-fish oil 500 mg capsule, delayed release (Fish Oil) 500 mg PO DAILY SUPPLEMENT 10/03/18 semaglutide 14 mg tablet (Rybelsus) 14 mg PO DAILY 09/25/24 ezetimibe 10 mg tablet (Zetia) 10 mg PO QDAY 01/04/25 glimepiride 4 mg tablet 4 mg PO QAM 01/04/25 acetaminophen 500 mg tablet 1,000 mg (2 x 500 mg) PO Q8 #0 tabs 06/12/25 insulin lispro 100 unit/mL subcutaneous pen (Humalog KwikPen (U-100) Insulin) See Protocol subcut ACHS #0 mL 06/12/25 meclizine 25 mg tablet (Travel-Ease (meclizine)) 25 mg PO TID PRN Dizziness #0 tabs 06/12/25 ergocalciferol (vitamin D2) 1,250 mcg (50,000 unit) capsule (Vitamin D2) 1,250 mcg PO QWEEK #7 caps 06/13/25 ferrous sulfate 325 mg (65 mg iron) tablet 325 mg PO QODAY #30 tabs 06/13/25 omeprazole 20 mg tablet,delayed release 20 mg PO DAILY #30 tabs 06/13/25 oxycodone 5 mg tablet 5 mg PO Q6H PRN pain (scale score 7-10) 3 days #12 tabs 06/13/25 Hospital Course Operations None Procedures None Summary of Care Provided Hospital Course: Patient presents with syncope. She had previously broken her left humerus and it was at home and then had syncopal episodes. Patient was notably anemic with a hemoglobin of 7 and had been 13.6 back in August. Patient was transfused and hemoglobin has remained stable and actually gone up currently it is 8.9. She did have an echocardiogram that showed an EF of 60%. As well as moderate aortic stenosis. So spelt that her syncope is likely multifactorial due to the aortic stenosis, anemia and her recent arm fracture. So the plan was for the patient to go to long term facility and then she was able to work out things with her family to go to home with home care then case management discussed with her about going to the TCU is so patient was held here 2 more days try to get TCU and then insurance denied her. So patient will be going home in stable condition. Patient to follow-up with orthopedics on another week. Patient also follow-up cardiology regards to her aortic stenosis in about a month just for routine monitoring. Patient did have heme positive stools though she did strain so it is unclear if she has anemia due to any GI loss but recommend that she follow-up with gastroenterology in the coming months after her arm is healed to see about endoscopy. Weight / BMI Weight Weight: 74.6 kg Body Mass Index (BMI) 32.1 ABG / Lab / Microbiology Data 06/13/25 09:48 06/13/25 09:53 Laboratory: Laboratory Results - last 24 hr 06/12/25 17:08: POC Glucose 185 H 06/12/25 21:10: POC Glucose 198 H 06/13/25 06:33: POC Glucose 129 H 06/13/25 09:48: WBC 4.6, RBC 3.22 L, Hgb 8.9 L, Hct 27.4 L, MCV 85.1, MCH 27.6, MCHC 32.5 D, RDW Std Deviation 52.9 H, RDW Coeff of Colten 18.1 H, Plt Count 94 L, MPV 11.2, Immature Gran % (Auto) 1.100 H, Neut % (Auto) 67.2, Lymph % (Auto) 21.8, Craven % (Auto) 8.2, Eos % (Auto) 0.6, Baso % (Auto) 1.1 H, Absolute Neuts (auto) 3.1, Absolute Lymphs (auto) 1.01, Nucleated RBC % 0.4 06/13/25 09:53: Sodium 137, Potassium 4.4, Chloride 105, Carbon Dioxide 21.7, Anion Gap 10, BUN 15, Creatinine 0.67 L, Estim Creat Clear Calc 51.44, Est GFR (MDRD) Non-Af 89, BUN/Creatinine Ratio 21.9 H, Glucose 220 H, Calcium 9.3 06/13/25 11:49: POC Glucose 169 H Microbiology: Microbiology 06/06/25 22:00 Stool Stool Occult Blood (ASHLY) - Final Occult Blood Positive D/C Instructions DC O2, CPAP, BIPAP Needs Home O2 Discharge instructions: No Meaningful Use Info Meaningful Use Meaningful Use Diagnoses (Choose all that apply): None applicable Discharge Plan Admission Admit Date/Time: 06/06/25 08:55 Primary Reason for Your Visit: debility. Attending Provider: Kelvin Stein Primary Care Provider: Lani Alcazar Discharge Orders/Prescriptions Prescriptions: New acetaminophen 500 mg Tablet 1,000 mg PO Q8 Qty: 0 0RF insulin lispro [Humalog KwikPen Insulin] 100 unit/mL Insulin Pen See Protocol subcut ACHS Qty: 0 0RF Protocol: 2. Sliding Scale Insulin Low-Med Dosing Condition: 150-209 mg/dl = 1 unit Condition: 210-269 mg/dl = 2 units Condition: 270-329 mg/dl = 3 units Condition: 330-389 mg/dl = 4 units Condition: 390-449 mg/dl = 5 units Condition: Greater than 449 call physician Protocol Text: Suggested for: - Patients on Total Daily Insulin Dose of 28-36 units - Average body habitus patients LOW MEDIUM DOSING ALGORITHM meclizine [Travel-Ease (meclizine)] 25 mg Tablet 25 mg PO TID PRN (Reason: Dizziness) Qty: 0 0RF ergocalciferol (vitamin D2) [Vitamin D2] 1,250 mcg (50,000 unit) capsule 1,250 mcg PO QWEEK Qty: 7 0RF omeprazole 20 mg tablet,delayed release (DR/EC) 20 mg PO DAILY Qty: 30 0RF Rx Instructions: Ajle-uov-rafzonz no prescription required. ferrous sulfate 325 mg (65 mg iron) tablet 325 mg PO QODAY Qty: 30 0RF oxycodone 5 mg tablet 5 mg PO Q6H PRN (Reason: pain (scale score 7-10)) 3 Days Qty: 12 0RF Continued ezetimibe [Zetia] 10 mg tablet 10 mg PO QDAY glimepiride 4 mg tablet 4 mg PO QAM Rx Instructions: administer with breakfast levothyroxine [Synthroid] 25 MCG tablet 25 mcg PO DAILY Fish Oil 500 MG capsule,delayed release(DR/EC) 500 mg PO DAILY Rybelsus 14 mg tablet 14 mg PO DAILY Held cholecalciferol (vitamin D3) [Vitamin D3] 1,000 UNIT capsule 1,000 unit PO DAILY Hold Instructions: Resume on 08/02/25. Discontinued hydrocodone-acetaminophen 5-325 mg tablet 1 tab PO Q6H PRN PRN (Reason: Pain) 3 Days Qty: 10 0RF Referrals / Follow Up: [facility] [Provider Group] - Within 3 Months Bradley Dougherty MD [Med Staff - Active Staff] - Within 2 Weeks Lani Alcazar NP-C [Primary Care Provider] - Within 2 Weeks Disposition Disposition (needs filled in before D/C Order can be placed): Home Health Service Charges/Coding Visit Charges Inpatient E&M: 08149 Disch Hosp
== END 2025-06-13 16:55 | disposition home health service (06) | DRG 312 ==
LOC: ED 08:46 → ICU 10:29 → PCU 06-07 17:42
PROVIDERS: Hospitalist; Emergency Provider Emergency Medicine; PCP Nurse Practitioner Family
DX: R55 Syncope and collapse (principal); D61.818 Other pancytopenia; S42.302A Unspecified fracture of shaft of humerus, left arm, initial encounter for closed fracture; Z66 Do not resuscitate; E11.9 Type 2 diabetes mellitus without complications; E03.9 Hypothyroidism, unspecified; I35.0 Nonrheumatic aortic (valve) stenosis; R19.5 Other fecal abnormalities; E55.9 Vitamin D deficiency, unspecified; W17.81XA Fall down embankment (hill), initial encounter; Z79.4 Long term (current) use of insulin; T50.995A Adverse effect of other drugs, medicaments and biological substances, initial encounter; R42 Dizziness and giddiness; Z79.84 Long term (current) use of oral hypoglycemic drugs; Z79.890 Hormone replacement therapy; Z79.899 Other long term (current) drug therapy
CPT/HCPCS: 36415; 71045; 71275; 74176; 80048; 80053; 81001; 82274; 82306; 82607; 82728; 82747; 82962; 83036; 83540; 83550; 83880; 84443; 84484; 85014; 85025; 85027; 85379; 86850; 86900; 86901; 93005; 93306; 97110; 97116; 97162; 97166; 97530; 97535; 97802; 99285; P9016; Q9957; Q9967; A4216; C8929; J2405

== ENCOUNTER → 2025-07-17 | Outpatient (CLI) | payer MEDICARE, SELFPAY ==
[2025-07-17 08:45] LABS: Red Blood Cells-Urine 0 SEEN /hpf (0-5)
[2025-07-17 09:07] LABS: Color, Urine Yellow (Yellow); Glucose, Dipstick Normal (Normal); Ketone-Dipstick Negative (Negative); Leukocyte Esterase-Dipstick 25 /ul (Negative); Nitrite-Dipstick Negative (Negative); Occult Blood-Urine 10 /ul (Negative); Protein-Dipstick 30 mg/dl (Negative); Specific Gravity, Urine 1.020 (1.002-1.030); Urine Bilirubin Dipstick Negative (Negative)
[2025-07-17 09:15] LABS: Hematocrit 36.1 % (37-47); Hemoglobin 11.4 g/dL (12.0-15.0); Immature Granulocytes Count 0.020 X10^3/uL (0.0-0.0); Mean Corp Hgb Conc 31.6 g/dL (32-36); Mean Corpuscular Volume 89.8 fL (81-99); Mean Platelet Vol. 11.8 fl (6.2-12.0); NRBC Flagged by Analyzer 0 % (0-5); POSITIVE COUNT YES; Platelet Count 76 K/mm3 (150-450); RBC Distribution Width CV 18.5 % (11.6-14.6); RBC Distribution Width SD 61.0 fl (35.1-43.9); Red Blood Count 4.02 M/mm3 (4.2-5.4); White Blood Count 4.1 K/mm3 (4.4-11.0)
[2025-07-17 09:36] LABS: Mucous, Urine RARE /hpf (<or=2+); Squamous Epithelial Cells - UA 0-5 SEEN /hpf (5-10)
[2025-07-17 10:05] LABS: FOLATES,SERUM (FOLIC ACID) 10.60 ng/mL (4.60-34.80)
[2025-07-17 11:02] LABS: AST(SGOT) 54 U/L (<=31); Alanine Aminotransfer ALT/SGPT 44 U/L (<=34); Albumin, Serum 3.9 g/dL (3.4-4.8); Alkaline Phosphatase 125 U/L (35-104); Anion Gap 11 (5-15); BUN 11 mg/dL (4-19); BUN/Creat Ratio 15.8 RATIO (10-20); Calcium,Total 9.7 mg/dL (7.6-11.0); Carbon Dioxide 23.7 mmol/L (21.0-32.0); Chloride 104 mmol/L (98-108); Globulin 3.3 g/dL (2.2-4.2); Glucose 152 mg/dL (70-99); Potassium 4.5 mmol/L (3.3-5.1); Vitamin B12 849 pg/mL (180-914)
[2025-07-18 14:08] LABS: ANTINUCLEAR ANTIBODIES DIRECT Positive (Negative)
[2025-07-20 23:07] LABS: Copper, Serum or Plasma 100 ug/dL (80-158)
== END | disposition home or self-care (01) ==
LOC: LAB 08:40
PROVIDERS: PCP Nurse Practitioner Family; Referring Provider Nurse Practitioner Family; Visit Provider Nurse Practitioner Family
DX: D69.6 Thrombocytopenia, unspecified (principal)
CPT/HCPCS: 36415; 80053; 81001; 82525; 82607; 82746; 85025; 86038; 87086; 87088

== ENCOUNTER 2025-07-31 14:30 | Outpatient (RCR) | payer MEDICARE, SELFPAY ==
--- NOTE | 2025-07-05 12:47 | HP.PTEVAL ---
Patient's Visit Information Visit Information Visit Information: KAREN VILLALOBOS is a 80 year old F referred to Physical Therapy by Dr. Kelvin Stein DO with a diagnosis of fx humerus, weakneess.. Date of Evaluation: 07/05/25 Physical Therapist: Kelvin Alcazar, DPT, OCS, CSCS Visit Plan Frequency: 2x /Week Duration: 4-6 Weeks Plan: 2x/week x 4-6 weeks for IE HEP: scap circles, pendulum 20x, supine stick flexion, er 10x, elbow arom 20x all 2x/day Ho given. Treat with PROM L shoulder, manual, progression from PROM gently to AAROM to tolerance. Strengthen when released by doctor, return to funciton activities. Subjective Subjective: I fell 3x. May 31 went to ER adn bruisded really bad. 3 days later passed out hemoglobin low and went to hospital aftter second fall adn was in 9 days Broke L arm in first falland is in sling and gunner bandage and brooken at shoulder L. It is healing and sees Cori for that. last time 06/20 and in sling for 0-2 more weeks. Sees on t . Out of hospital June 17. Were trying to figure out why she was passing out and gave iron adn pint of blood and B3 once per week. Another blood test tomorrow. Dr Mei is main doctor. First fall was foot got out from under neath her. no spinning, lightheaded. script is for PROM arm and progreess and weakness. Not worried about balance or mobility, just arm. Used walker around house. Live with [facility]. He is 24/ home, No steps. Basic ADLs all I. slower with L arm. Not employed. Hobbies : gardening. Avoiding it and will take it slow. Objective Objective: Cervical and scap AROM WFL B without pain. Posture is slight FW head and protracted scap but funcitonal and painfree at rest. R shoulder and elbow and wrist AROM WFL L shoulder aROM flexion 20, er 30, IR L5, all limited by pain/fear. PROM L shoulder flexion 100, er 65, IR 40 at 80 abd, limited by pain complaints more than end feel. elbow adn wrist on L WFL. reflexes 2/3 bi and tri B. Sensation to gross light touch WNL B UE. strength L shoulder NT elbow NT. R side 4-/5 throughout UE. Mobility is good, no evidence of balance impairment leading to falls. Pt wishes to focus on L arm and not balance or mobility. Balance/Special Test Scores Functional Gait Assessment Score: 29 % Disability: 3.3400 Quick DASH Score: 56.8175 30 Second Chair Rise Test Seconds: 15 Goals Goal 1:: AROM L shoulder flexion 140, er 50 and IR to L3 to improve ADLS Goal Time Frame: 4-6 Weeks Goal 2:: I appropriate HEP to limit future problems Goal Time Frame: 4-6 Weeks Goal 3:: Pain and mobility L shoulder 90% back to normal without pain Goal Time Frame: 4-6 Weeks Goal 4:: Hands up to do hair without pain or hesitation Goal Time Frame: 4-6 Weeks Goal 5:: quickdash score 15 Goal Time Frame: 4-6 Weeks Rehabilitation Potential Rehabilitation Potential: Good Anticipated Interventions Patient/Client Instruction: Educate patient on: Condition and Plan of Care For the Purpose of:: To decrease pain, To increase ROM and To improve nutrient delivery to tissue Therapeutic Exercise to Include: Strength training, Postural training, Flexibilty training, Relaxation training, Passive ROM, Active ROM and Scapular Strength/Stabilization For the Purpose of:: To decrease pain, To increase ROM, To improve nutrient delivery to tissue, To improve muscle performance and motor function and To increase tolerance to activity/condition/position Manual Therapy Techniques to Include: Passive ROM and Soft tissue mobilization For the Purpose of:: To decrease pain, To increase ROM and To improve nutrient delivery to tissue Text: Thank you for the opportunity to evaluate your patient. For Medicare and Medicare HMO plans, please review the plan of care and approve it. It will need to be FAXED BACK to us at [phone] for Medicare purposes. For Medicare only, by signing this I certify the plan of care. Please let me know if there are questions or concerns regarding this plan of care. Physician Signature: Date:
--- NOTE | 2025-07-31 15:13 | HP.PTDCSUM ---
Discharge Summary D/C summary: It has been my pleasure to treat KAREN VILLALOBOS referred by Dr. Kelvin Stein DO, with the diagnosis of fx humerus, weakneess. for a total of 7 visit(s). Discharge Date: 07/31/25 Please see the following information for a summary of their discharge status. Subjective Subjective: Getting better. No pain. Getting hands to head is OK but not normal and still tight. Scratching back is still slightly limited. Limited to 5#. Pt does not wish to continue therapy and wants discharge as she is good funcitonally. Pain L shoulder: Pain Intensity (Out of 10): 0 Overall Improvement % Improvement: 90 Objective Objective/Function: 125 aROM elevation standing and 130 sitting. er is 50 and IR to L3 without pain. strength not tested due to fracture and lifting limit. Walking well and funcitonally reaching to hair and behind back without difficulty or pain(slight compensation in elevation on L) Goals Goal 1:: AROM L shoulder flexion 140, er 50 and IR to L3 to improve ADLS Goal Progress: Progressing Goal 2:: I appropriate HEP to limit future problems Goal Progress: Goal Met AAROM Goal 3:: Pain and mobility L shoulder 90% back to normal without pain Goal Progress: Goal Met Goal 4:: Hands up to do hair without pain or hesitation Goal Progress: Goal Met Goal 5:: quickdash score 15 Goal Progress: Progressing Plan Plan: d/c , pt request. D/C Information Discharge Comments: To doctor in 2 weeks. d/c sentence: If there are questions or concerns regarding this patient's physical therapy, please feel free to call me at [phone]. Thank you for the referral of this patient. Sincerely, Kelvin Alcazar, DPT, OCS, CSCS Balance/Gait/Functional tests Balance/Special Test Scores Functional Gait Assessment Score: 29 % Disability: 3.3400 Quick DASH Score: 20.4525 30 Second Chair Rise Test Seconds: 15 Improvement % Improvement: 90
== END 2025-07-31 19:00 | disposition home or self-care (01) ==
LOC: PT 14:30
PROVIDERS: PCP Nurse Practitioner Family; Referring Provider Family Medicine
DX: S42.302D Unspecified fracture of shaft of humerus, left arm, subsequent encounter for fracture with routine healing (principal); R53.1 Weakness; D64.9 Anemia, unspecified
CPT/HCPCS: 97110; 97140; 97161; 97164

== ENCOUNTER 2025-09-25 12:17 | Day surgery (SDC) | payer MEDICARE, SELFPAY ==
--- NOTE | 2025-09-24 13:27 | PAT.ANESEVAL ---
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 When Was Last Pacemaker Check QUESTION #4 FULL TEXT: You/Your Family Experience fever (hyperthermia) with Anesthesia Last Oral Intake Last Oral intake: Last Oral Intake NPO since Meds taken in AM with sips of water? 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 - planimeter operator: PONV - planimeter operator Female Yes 09/24/25 09:50 HX of Motion Sickness No 09/24/25 09:50 HX of N/V After Surgery No 09/24/25 09:50 Non-Smoker Yes 09/24/25 09:50 Duration of Surgery greater No 09/24/25 09:50 than 60 minutes Number of Risk Factors 2 09/24/25 09:50 PONV Score Moderate Risk 09/24/25 09:50 Height & Weight Height & Weight: Anesthesia: Height & Weight Height 5 ft 07/18/25 09:56 Respiratory Assessment Respiratory Assessment - planimeter operator: Respiratory Tract Infection Hx - planimeter operator Hx Respiratory Tract Infection No 09/24/25 09:50 STOP Sleep Apnea STOP Sleep Apnea - planimeter operator: STOP Sleep Apnea - planimeter operator Hx Hypertension No 09/24/25 09:50 Hx Sleep Apnea No 09/24/25 09:50 CPAP No 04/12/19 10:28 BIPAP Do you snore loudly (louder No 09/24/25 09:50 than talking or can be heard Do you often feel tired/ No 09/24/25 09:50 fatigued/ sleepy during daytime? Has anyone observed you stop No 09/24/25 09:50 breathing during sleep? STOP Results Negative 09/24/25 09:50 QUESTION #5 FULL TEXT : Do you snore loudly (louder than talking or can be heard through closed doors)? 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 Specify any problems Hx of Preganancy in last 3 No 09/24/25 09:50 Months Nurse Filling Out Transfusion MGRIKATHERINE 09/24/25 09:50 & Questions: Date: 09/24/25 09/24/25 09:50 Time: 09:53 09/24/25 09:50 Patient unable to answer at this time (ie. confused, unrespo /Reproduction History /Reproductive History - planimeter operator: /Reproductive Hx- planimeter operator Hx Now No 09/24/25 09:50 Gestational Age (in weeks): EDC: Hx Hx Para Hx Section SAB No 09/24/25 09:50 PFSH Medical History (Updated 09/24/25 @ 10:09 by Ely Avila) Tooth infection Cancer Thyroid disease Low iron Easy bruising TIA (transient ischemic attack) Blackout Shortness of breath on exertion Former smoker History of stress test History of echocardiogram Anemia associated with acute blood loss Benign neoplasm of colon, unspecified Hypothyroidism Vitamin D deficiency Obesity Degenerative disease of nervous system, unspecified Hypercholesteremia Mastoid disorder Mild aortic stenosis Hypertension Fatty liver Cervical osteophyte Heart murmur Elevated liver enzymes Hx of fracture of humerus Thrombocytopenia Anemia History of breast cancer (~2018) Diabetes Home Medications ?Medication ?Instructions ?Recorded ?Last Taken ?Type levothyroxine 25 mcg tablet 25 mcg PO DAILY THYROID 10/03/18 04/18/19 History (Synthroid) omega 3-dha 60 mg-epa 90 mg-fish 500 mg PO DAILY SUPPLEMENT 10/03/18 Unknown History oil 500 mg capsule, delayed release (Fish Oil) semaglutide 14 mg tablet (Rybelsus) 14 mg PO DAILY 09/25/24 09/17/25 History Held on 09/24/25. Instructions: EGD ezetimibe 10 mg tablet (Zetia) 10 mg PO QDAY 01/04/25 Unknown History glimepiride 4 mg tablet 4 mg PO QAM 01/04/25 Unknown History ergocalciferol (vitamin D2) 1,250 1,250 mcg PO QWEEK #7 caps 06/13/25 Unknown Rx mcg (50,000 unit) capsule (Vitamin D2) ferrous sulfate 325 mg (65 mg 325 mg PO QODAY #30 tabs 06/13/25 Unknown Rx iron) tablet clindamycin HCl 300 mg capsule 300 mg PO TID 09/24/25 Unknown History Allergy/AdvReac Type Severity Reaction Status Date / Time latex Allergy Rash Verified 09/24/25 09:45 Penicillins (PCN) Allergy Rash Verified 09/24/25 09:45 Family History Other Asthma Breast cancer CAD (coronary artery disease) Diabetes Heart disease Hypertension Myocardial infarction Thyroid disorder Surgical History (Updated 09/24/25 @ 09:50 by Ely Avila) History of tonsillectomy History of colonoscopy H/O section Hx of lumpectomy Social History (Updated 09/05/25 @ 09:49 by Kristin Chopra) household members: spouse housing: house Smoking Status: Former smoker alcohol intake: current alcohol intake frequency: holidays/special occasions only Audit: Pertinent Findings Pertinent Findings EKG Perinent findings: 06/06/2025. Sinus tachycardia 103 bpm. Minimal voltage criteria for LVH. Inferior infarct, age undetermined. Echo (EF%) pertinent findings: 06/06/2025. EF of 60%. Moderate aortic stenosis. Recommendation Anesthesia Recommendation Anesthesia recommendation: OPTIMIZED for anesthesia (Evaluate airway on day of surgery. If the patient has decreased mouth opening or if the infected tooth looks abscessed may consider endotracheal tube for procedure to protect airway.)
[2025-09-25 12:48] VITALS: BP 121/63; PULSE 68; RESP 18; TEMP 36.8; O2SAT 95; BMI 30.9
[2025-09-25] MEDS: Lactated Ringers 1,000 ML 15 ML IV (12:55)
--- NOTE | 2025-09-25 13:09 | PCM.PRE.AN2 ---
ASA Classification* ASA Classification ASA Classification: 2 Assessment & Plan Anesthesia* Anesthesia Assessment Anesthesia Assessment: Discussed sedation and/or anesthesia options, risks, benefits, and alternatives with patient/parents/legal guardian/POA. Questions invited. The patient/parents/legal guardian/POA seems to understand and agrees to proceed with anesthesia plan. Reviewed the physical assessment, medical history, allergy history and patient home medications list prior to surgery/procedure/anesthetic and documented any changes. Performed airway and anesthesia risk assessments. Anesthesia Type Anesthesia Type: MAC History Source History Obtained from:: Patient and Chart Anesthesia Focused Assessment* Temperature: 98.3 F Pulse Rate: 68 Blood Pressure: 121/63 Respiratory Rate: 18 Pulse Ox: 95 Oxygen Delivery Method: Room Air Airway Assessment Mouth opens: >3 cm Mallampati Score: II Teeth Condition: Intact Neck Range of motion (ROM): Full ROM Labs Anesthesia Preop lab: CBC WBC, (4.4-11.0) 4.1 K/mm3 L 07/17/25, 08:42 RBC, (4.2-5.4) 4.02 M/mm3 L 07/17/25, 08:42 Hgb, (12.0-15.0) 11.4 g/dL L 07/17/25, 08:42 Hct, (37-47) 36.1 % L 07/17/25, 08:42 Plt Count, (150-450) 76 K/mm3 L 07/17/25, 08:42 CHEMISTRY Potassium, (3.3-5.1) 4.5 mmol/L 07/17/25, 08:42 Sodium, (133-145) 139 mmol/L 07/17/25, 08:42 BUN, (4-19) 11 mg/dL 07/17/25, 08:42 Creatinine, (0.70-1.20) 0.69 mg/dL L 07/17/25, 08:42 Glucose, (70-99) 152 mg/dL H 07/17/25, 08:42 POC Glucose, (74-106) 169 mg/dL H 06/13/25, 11:49 TSH, (0.300-4.200) 4.690 uIU/mL H 06/06/25, 03:00 COAG PT, (11.7-14.9) 13.4 SECONDS 03/07/19, 15:40 Pre-Assessment Diagnosis/Proposed Procedure Planned Operative Procedure(s): EGD Anesthesia History 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 When Was Last Pacemaker Check QUESTION #4 FULL TEXT: You/Your Family Experience fever (hyperthermia) with Anesthesia Last Oral Intake Last Oral intake: Last Oral Intake NPO since 00:00 09/25/25 12:48 Meds taken in AM with sips of No 09/25/25 12:48 water? 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 helper Female Yes 09/24/25 09:50 HX of Motion Sickness No 09/24/25 09:50 HX of N/V After Surgery No 09/24/25 09:50 Non-Smoker Yes 09/24/25 09:50 Duration of Surgery greater No 09/24/25 09:50 than 60 minutes Number of Risk Factors 2 09/24/25 09:50 PONV Score Moderate Risk 09/24/25 09:50 Height & Weight Height & Weight: Anesthesia: Height & Weight Height 5 ft 09/25/25 12:48 Weight: 72 kg 09/25/25 12:48 Body Mass Index (BMI) 30.9 09/25/25 12:48 Respiratory Assessment Respiratory Assessment - spring fitter helper: Respiratory Tract Infection Hx - spring fitter helper Hx Respiratory Tract Infection No 09/24/25 09:50 STOP Sleep Apnea STOP Sleep Apnea - spring fitter helper: STOP Sleep Apnea - spring fitter helper Hx Hypertension No 09/24/25 09:50 Hx Sleep Apnea No 09/24/25 09:50 CPAP No 04/12/19 10:28 BIPAP Do you snore loudly (louder No 09/24/25 09:50 than talking or can be heard Do you often feel tired/ No 09/24/25 09:50 fatigued/ sleepy during daytime? Has anyone observed you stop No 09/24/25 09:50 breathing during sleep? STOP Results Negative 09/24/25 09:50 QUESTION #5 FULL TEXT : Do you snore loudly (louder than talking or can be heard through closed doors)? 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 Specify any problems Hx of Preganancy in last 3 No 09/24/25 09:50 Months Nurse Filling Out Transfusion MGRIFFITH 09/24/25 09:50 & Questions: Date: 09/24/25 09/24/25 09:50 Time: 09:53 09/24/25 09:50 Patient unable to answer at this time (ie. confused, unrespo /Reproduction History /Reproductive History - spring fitter helper: /Reproductive Hx- spring fitter helper Hx Now No 09/24/25 09:50 Gestational Age (in weeks): EDC: Hx Hx Para Hx Section SAB No 09/24/25 09:50 Active Medications Active Medications: Current Medications Generic Name Dose Route Start Last Admin Trade Name Freq PRN Reason Stop Dose Admin Lactated Ringer's 1,000 mls @ 15 mls/hr 09/25/25 12:45 09/25/25 12:55 IV 15 mls/hr .Q48H KADE Administration PFSH Medical History Tooth infection Cancer Thyroid disease Low iron Easy bruising TIA (transient ischemic attack) Blackout Shortness of breath on exertion Former smoker History of stress test History of echocardiogram Anemia associated with acute blood loss Benign neoplasm of colon, unspecified Hypothyroidism Vitamin D deficiency Obesity Degenerative disease of nervous system, unspecified Hypercholesteremia Mastoid disorder Mild aortic stenosis Hypertension Fatty liver Cervical osteophyte Heart murmur Elevated liver enzymes Hx of fracture of humerus Thrombocytopenia Anemia History of breast cancer (~2017) Diabetes Home Medications ?Medication ?Instructions ?Recorded ?Last Taken ?Type levothyroxine 25 mcg tablet 25 mcg PO DAILY THYROID 10/03/18 04/18/19 History (Synthroid) omega 3-dha 60 mg-epa 90 mg-fish 500 mg PO DAILY SUPPLEMENT 10/03/18 Unknown History oil 500 mg capsule, delayed release (Fish Oil) semaglutide 14 mg tablet (Rybelsus) 14 mg PO DAILY 09/25/24 09/17/25 History Held on 09/24/25. Instructions: EGD ezetimibe 10 mg tablet (Zetia) 10 mg PO QDAY 01/04/25 Unknown History glimepiride 4 mg tablet 4 mg PO QAM 01/04/25 Unknown History ergocalciferol (vitamin D2) 1,250 1,250 mcg PO QWEEK #7 caps 06/13/25 Unknown Rx mcg (50,000 unit) capsule (Vitamin D2) ferrous sulfate 325 mg (65 mg 325 mg PO QODAY #30 tabs 06/13/25 Unknown Rx iron) tablet clindamycin HCl 300 mg capsule 300 mg PO TID 09/24/25 Unknown History Allergy/AdvReac Type Severity Reaction Status Date / Time latex Allergy Rash Verified 09/25/25 12:47 Penicillins (PCN) Allergy Rash Verified 09/25/25 12:47 Family History Other Asthma Breast cancer CAD (coronary artery disease) Diabetes Heart disease Hypertension Myocardial infarction Thyroid disorder Surgical History History of tonsillectomy History of colonoscopy H/O section Hx of lumpectomy Social History household members: spouse housing: house Smoking Status: Former smoker alcohol intake: current alcohol intake frequency: holidays/special occasions only Review of Systems (Anesthesia) ROS Narrative System reviewed and no additional complaints, except as documented.
[2025-09-25 13:10] VITALS: BP 121/63; PULSE 68; RESP 18; TEMP 36.8; O2SAT 95
--- NOTE | 2025-09-25 13:25 | HP.PCM_ITS ---
HPI - General General Date of Admission: 09/25/25 Date of Service: 09/25/25 HPI Narrative KAREN VILLALOBOS, is a 80 F who presents [ KAREN VILLALOBOS, is a 80-year-old female referred for an acute anemia and chronic thrombocytopenia evaluation. She does not take blood thinners. The acute anemia led to a syncopal episode, resulting in a fractured left humerus. She reports a history of intermittent esophageal dysphagia to solid foods. She denies any history of excessive bruising, prolonged bleeding, or petechiae related to the chronic thrombocytopenia. No report of abdominal pain, black or tarry stools, or excessive menstrual bleeding.? * Labs : * Complete Blood Count (CBC): Hemoglobin is currently 11.6. At its lowest was down to 7.6. * Hemoglobin/Hematocrit:?Acutely low, consistent with recent anemia. * Platelets:?Chronically low, consistent with reported thrombocytopenia. * Red Cell Indices (MCV, MCH):?Low MCV may suggest iron deficiency anemia. * Iron Studies:?Ferritin (low), Serum Iron (low), Total Iron Binding Capacity (high) likely indicate iron deficiency. * Peripheral Blood Smear:?Could show microcytic, hypochromic red cells and confirm platelet morphology. CT/CTA Chest W/WO Contrast IMPRESSION: Mild diffuse esophageal wall thickening, possibly esophagitis. ] [facility] Medical History Tooth infection Cancer Thyroid disease Low iron Easy bruising TIA (transient ischemic attack) Blackout Shortness of breath on exertion Former smoker History of stress test History of echocardiogram Anemia associated with acute blood loss Benign neoplasm of colon, unspecified Hypothyroidism Vitamin D deficiency Obesity Degenerative disease of nervous system, unspecified Hypercholesteremia Mastoid disorder Mild aortic stenosis Hypertension Fatty liver Cervical osteophyte Heart murmur Elevated liver enzymes Hx of fracture of humerus Thrombocytopenia Anemia History of breast cancer (~2018) Diabetes Home Medications ?Medication ?Instructions ?Recorded ?Last Taken ?Type levothyroxine 25 mcg tablet 25 mcg PO DAILY THYROID 04/18/19 History (Synthroid) omega 3-dha 60 mg-epa 90 mg-fish 500 mg PO DAILY SUPPL EMENT 10/03/18 Unknown History oil 500 mg capsule, delayed release (Fish Oil) semaglutide 14 mg tablet (Rybelsus) 14 mg PO DAILY 09/17/25 History Held on 09/24/25. Instructions: EGD ezetimibe 10 mg tablet (Zetia) 10 mg PO QDAY 01/04/25 Unknown History glimepiride 4 mg tablet 4 mg PO QAM 01/04/25 Unknown History ergocalciferol (vitamin D2) 1,250 1,250 mcg PO QWEEK # 7 caps 06/13/25 Unknown Rx mcg (50,000 unit) capsule (Vitamin D2) ferrous sulfate 325 mg (65 mg 325 mg PO QODAY #30 tabs 06/13/25 Unknown Rx iron) tablet clindamycin HCl 300 mg capsule 300 mg PO TID 09/24/25 Unknown History Allergy/AdvReac Type Severity Reaction Status Date / Time latex Allergy Rash Verified 09/25/25 12:47 Penicillins (PCN) Allergy Rash Verified 09/25/25 12:47 Family History Other Asthma Breast cancer CAD (coronary artery disease) Diabetes Heart disease Hypertension Myocardial infarction Thyroid disorder Surgical History History of tonsillectomy History of colonoscopy H/O section Hx of lumpectomy Social History household members: spouse housing: house Smoking Status: Former smoker alcohol intake: current alcohol intake frequency: holidays/special occasions only ROS Constitutional Constitutional: Denies fatigue, fever(s), poor appetite, weight gain or weight loss Gastrointestinal Gastrointestinal: Denies belching, bloating, change in bowel habits, change in stool character, chewing difficulty, coffee ground emesis, constipation, cramping, diarrhea, dyspepsia, dysphagia, early satiety, excessive flatus, fecal incontinence, heartburn, hematemesis, hematochezia, hemorrhoids, loose stools, melena, nausea, odynophagia, rectal bleeding, tenesmus, vomiting or weight changes Vital Signs Vital Signs Vital Signs: 09/25/25 12:48 09/25/25 12:48 09/25/25 13:10 Temperature 98.3 F 98.3 F Temperature Source Temporal Pulse Rate 68 68 Respiratory Rate 18 18 Respiratory Pattern Normal Blood Pressure 121/63 H 121/63 H Blood Pressure Mean 82 Blood Pressure Source Monitor Blood Pressure Position Sitting Blood Pressure Location Right Arm Pulse Ox 95 95 Oxygen Delivery Method Room Air Room Air Weight Weight: 158 lb 11.725 oz Body Mass Index (BMI) 30.9 Physical Exam Const alert, oriented x3, no apparent distress and healthy appearing General Appearance: cooperative GI normal to inspection, nondistended, normoactive bowel sounds, soft to palpation, non-tender and non-distended Percussion: normal to percussion Rectal Exam: deferred Assessment & Plan Assessment/Plan (1) Thickening of esophagus: PLAN: Assessment and Plan Assessment and Plan (1) Anemia associated with acute blood loss: Status: Acute Comment: Fall with extensive bruising May 2025 (2) Thrombocytopenia: Status: Chronic (3) Thickening of esophagus: Status: Acute Plan The patient presents with an acute on chronic hematologic issue. * Acute Anemia:?The acute anemia, likely iron deficiency, triggered a syncopal episode. A likely cause for this bleeding is GI pathology, potentially related to the history of dysphagia. The dysphagia to solids suggests an esophageal issue such as a web, stricture, or malignancy, which can cause chronic low-grade blood loss. This chronic blood loss would then cause iron-deficiency anemia, which can become acute if bleeding increases. * Chronic Thrombocytopenia:?The etiology of the chronic thrombocytopenia is yet to be determined. A bone marrow disorder such as myelodysplastic syndrome or an autoimmune condition like Immune Thrombocytopenia (ITP) are possibilities, especially in an older patient. Chronic liver disease could also lead to thrombocytopenia, possibly in connection with GI bleeding. * Syncope and Fracture:?The acute onset of severe anemia led to decreased oxygen delivery to the brain, causing syncope. This fall resulted in a left humerus fracture.? Plan: * Diagnostics: * Upper and Lower Endoscopy:?To investigate the source of GI blood loss related to dysphagia and anemia. Biopsies should be taken to rule out any malignancy or other inflammatory conditions like eosinophilic esophagitis. * Bone Marrow Biopsy:?Consider if the endoscopy is unremarkable, or if other signs point towards a primary hematologic malignancy or myelodysplastic syndrome causing both the anemia and thrombocytopenia. * Further lab work:?Including vitamin B12, folate, and LDH levels to further differentiate the cause of the cytopenias. * Treatment: * Iron Replacement:?Initiate oral or intravenous iron supplementation to correct the iron deficiency. * Manage Bleeding:?Address any bleeding source found on endoscopy. * Humeral Fracture Management:?Continue with orthopedic care as planned. * Monitor Cytopenias:?Closely monitor CBC and assess response to therapy. Further treatment for thrombocytopenia will depend on the definitive diagnosis.
--- NOTE | 2025-09-25 13:30 | EGD_PTH ---
PATIENT: KAREN VILLALOBOS LOC: EN U#:[id number] AGE/SX: 80/F ROOM: RE09/25/[address]: Dr. Mau Cam DO : 1945 BED: DIS: 09/25/2025 SPEC #: [id number] RECD: 09/25/25 14:28 STATUS: TOYIN RESonja #: [id number] SALEEM: 09/25/25 13:[address]: Mau Cam DEPT: SURGICAL PATHOLOGY RECD BY: Haseeb Davila ENTERED: 09/25/25 15:15 SP TYPE: EGD BIOPSY OT DR: Karen Alcazar, PHARMACY DIRECTOR-C Tissues: A - Gastric mucous membrane Procedures: Immunohistochemical Stains Surgery Specimen Level IV HEADER OPERATION: EGD, biopsy PRE-OP DIAGNOSIS: Anemia associated with acute blood loss, thrombocytopenia, thickening of esophagus TISSUE SUBMITTED: A- Gastric body ulcer biopsy MICROSCOPIC DIAGNOSIS A. Gastric body, biopsy: - Oxyntic mucosa with features of reactive gastropathy and focal erosion. - IHC negative for H. pylori organisms. MICROSCOPIC DESCRIPTION Slides are reviewed. All matched controls reacted appropriately. These tests were developed and their performance characteristics determined by [facility]. They may not have been cleared or approved by the U.[place]. Food and Drug Administration. The FDA has determined that such clearance or approval is not necessary. The above immunohistochemical markers and/or special?stains have been reviewed by the Pathologist. GROSS DESCRIPTION A. Received in fixative is one container labeled with the patient's name and designated Gastric body ulcer biopsy. The specimen consists of one irregular fragment of morales tissue that measures 0.6 cm. The specimen is totally submitted in one cassette. [place] 09/25/2025 CPT:48927,69983
[2025-09-25 13:45] VITALS: BP 100/47; BP 121/63; PULSE 77; RESP 18; TEMP 36.1; O2SAT 93
[2025-09-25 13:50] VITALS: BP 100/47; BP 117/58; BP 121/63; PULSE 77; PULSE 79; RESP 16; RESP 18; TEMP 36.1; O2SAT 93; O2SAT 95
--- NOTE | 2025-09-25 13:50 | OP.EGD_ITS ---
Patient Name: Lani Hsieh Procedure Date: 09/25/2025 1:31 PM Date of : 1945 Age: 80 Procedure: Upper GI endoscopy Indications: Unexplained iron deficiency anemia, Abnormal CT of the GI tract Providers: Mau Cam DO Referring MD: [place] Burgess Medicines: Monitored Anesthesia Care Patient Profile: This is an 80 year old female. Refer to note in patient chart for documentation of history and physical. Complications: No immediate complications. Procedure: Pre-Anesthesia Assessment: - Prior to the procedure, a History and Physical was performed, and patient medications and allergies were reviewed. The patient is competent. The risks and benefits of the procedure and the sedation options and risks were discussed with the patient. All questions were answered and informed consent was obtained. Patient identification and proposed procedure were verified by the physician in the pre-procedure area. Mental Status Examination: alert and oriented. Airway Examination: normal oropharyngeal airway and neck mobility. Respiratory Examination: clear to auscultation. CV Examination: normal. Prophylactic Antibiotics: The patient does not require prophylactic antibiotics. Prior Anticoagulants: The patient has taken no anticoagulant or antiplatelet agents except for NSAID medication. ASA Grade Assessment: II - A patient with mild systemic disease. After reviewing the risks and benefits, the patient was deemed in satisfactory condition to undergo the procedure. The anesthesia plan was to use monitored anesthesia care (MAC). Immediately prior to administration of medications, the patient was re-assessed for adequacy to receive sedatives. The heart rate, respiratory rate, oxygen saturations, blood pressure, adequacy of pulmonary ventilation, and response to care were monitored throughout the procedure. The physical status of the patient was re-assessed after the procedure. After obtaining informed consent, the endoscope was passed under direct vision. Throughout the procedure, the patient's blood pressure, pulse, and oxygen saturations were monitored continuously. The gastroscope was introduced through the mouth, and advanced to the third part of the duodenum. Small bowel enteroscopy was deemed necessary. The upper GI endoscopy was accomplished without difficulty. The patient tolerated the procedure well. Scope In: 1:37:15 PM Scope Out: 1:39:26 PM Total Procedure Duration Time 0 hours 2 minutes 11 seconds Findings: Grade III varices were found in the middle third of the esophagus and in the lower third of the esophagus. They were large in size. Two non-bleeding linear gastric ulcers with no stigmata of bleeding were found in the gastric body. The largest lesion was 12 mm in largest dimension. Biopsies were taken with a cold forceps for histology. Verification of patient identification for the specimen was done. Estimated blood loss was minimal. Biopsies were taken with a cold forceps for Helicobacter pylori testing. Verification of patient identification for the specimen was done. Estimated blood loss was minimal. No gross lesions were noted in the third portion of the duodenum. Impression: - Grade III esophageal varices. - Non-bleeding gastric ulcers with no stigmata of bleeding. Biopsied. - No gross lesions in the third portion of the duodenum. Recommendation: - Discharge patient to home. - Resume previous diet. - Continue present medications. - Await pathology results. - Protonix 40 mg daily - Carafate 1 g p.o. twice daily - Workup for cirrhosis Procedure Code(s): --- Professional --- 86170, Small intestinal endoscopy, enteroscopy beyond second portion of duodenum, not including ileum; with biopsy, single or multiple CPT copyright 2021 [employer]. All rights reserved. The codes documented in this report are preliminary and upon box toe flanger stitchdowns review may be revised to meet current compliance requirements. Mau Cam DO 09/25/2025 1:50:12 PM This report has been signed electronically. Number of Addenda: 0 Note Initiated On: 09/25/2025 1:31 PM
--- NOTE | 2025-09-25 13:50 | OP.PROVAT_ITS ---
09/25/2025 [place] Burgess Re : Upper GI endoscopy procedure for Lani Jori Walkerr Ottoniel This procedure was performed on Thursday, September 25, 2025. My impressions and recommendations are as follows: Impressions : - Grade III esophageal varices. - Non-bleeding gastric ulcers with no stigmata of bleeding. Biopsied. - No gross lesions in the third portion of the duodenum. Recommendations : - Discharge patient to home. - Resume previous diet. - Continue present medications. - Await pathology results. - Protonix 40 mg daily - Carafate 1 g p.o. twice daily - Workup for cirrhosis My findings are described in the full procedure note, which is enclosed. If I can be of further assistance, please feel free to contact me at . Sincerely, Mau Cam, 09/25/2025 1:50:12 PM This report has been signed electronically.
--- NOTE | 2025-09-25 13:50 | PCM.POST.ANE ---
Anesthesia: Postop Eval I Current Vital Signs Temperature: 97 F Pulse Rate: 79 Blood Pressure: 100/47 Respiratory Rate: 16 Pulse Ox: 95 Oxygen Delivery Method: Room Air Assessment Airway patent: Yes Spontaneous unlabored respirations: Yes Mental status: Awake and Calm nausea: No Vomiting: No Anesthesia Complication: No Fluid Hydration Crystalloid volume administer (ml): 400 Total IV fluid infused: 400 Progress Note Anesthesia document: Postop Eval 1 completed: Yes
[2025-09-25 13:55] VITALS: BP 113/55; BP 121/63; PULSE 74; RESP 18; TEMP 36.4; O2SAT 95
[2025-09-25 14:14] VITALS: BP 121/63
--- NOTE | 2025-09-25 14:56 | POSTOPAN2_ITS ---
Anesthesia Postop Eval I Sum Postop Eval Completion status Anesthesia document: Postop Eval 1 completed: Yes Anesthesia Postop Eval I Summary Anesthesia Postop Eval I Summary: Anesthesia Postop Eval I: Assessment Summary Airway patent Yes 09/25/25 13:50 DISPENSING OPTICIAN APPRENTICE.[email or web address] Spontaneous unlabored Yes 09/25/25 13:50 DISPENSING OPTICIAN APPRENTICE.GDOTT respirations Mental status Awake,Calm 09/25/25 13:50 DISPENSING OPTICIAN APPRENTICE.GDOTT nausea No 09/25/25 13:50 DISPENSING OPTICIAN APPRENTICE.GDOTT Vomiting No 09/25/25 13:50 DISPENSING OPTICIAN APPRENTICE.GDOTT Anesthesia Postop Eval I: Fluid Summary Crystalloid volume administer 400 09/25/25 13:50 DISPENSING OPTICIAN APPRENTICE.GDOTT (ml) Colloids volume administered ( ml) Blood Product volume administered (ml) Total IV fluid infused 400 09/25/25 13:50 DISPENSING OPTICIAN APPRENTICE.GDOTT Anesthesia Postop Eval I: Summary Notes Anesthesia Complication No 09/25/25 13:50 DISPENSING OPTICIAN APPRENTICE.GDOTT Anesthesia Complication Comment: Post-operative progress note Anesthesia: Postop Eval II Evaluation Mental status: Awake and Calm Pain Level: 1 nausea: No Vomiting: No Complications Anesthesia Complication: No
--- NOTE | 2025-09-25 14:56 | PCM.POSTANE2 ---
Anesthesia Postop Eval I Sum Postop Eval Completion status Anesthesia document: Postop Eval 1 completed: Yes Anesthesia Postop Eval I Summary Anesthesia Postop Eval I Summary: Anesthesia Postop Eval I: Assessment Summary Airway patent Yes 09/25/25 13:50 ENROBING MACHINE FEEDER.[email or web address] Spontaneous unlabored Yes 09/25/25 13:50 ENROBING MACHINE FEEDER.[email or web address] respirations Mental status Awake,Calm 09/25/25 13:50 ENROBING MACHINE FEEDER.GDOTT nausea No 09/25/25 13:50 ENROBING MACHINE FEEDER.GDOTT Vomiting No 09/25/25 13:50 ENROBING MACHINE FEEDER.[email or web address] Anesthesia Postop Eval I: Fluid Summary Crystalloid volume administer 400 09/25/25 13:50 ENROBING MACHINE FEEDER.GDOTT (ml) Colloids volume administered ( ml) Blood Product volume administered (ml) Total IV fluid infused 400 09/25/25 13:50 ENROBING MACHINE FEEDER.GDOTT Anesthesia Postop Eval I: Summary Notes Anesthesia Complication No 09/25/25 13:50 ENROBING MACHINE FEEDER.GDOTT Anesthesia Complication Comment: Post-operative progress note Anesthesia: Postop Eval II Evaluation Mental status: Awake and Calm Pain Level: 1 nausea: No Vomiting: No Complications Anesthesia Complication: No
== END 2025-09-25 14:25 | disposition home or self-care (01) ==
LOC: EN 12:17 → AC 12:22
PROVIDERS: PCP Nurse Practitioner Family; Referring Provider Nurse Practitioner Family; Visit Provider Internal Medicine Gastroenterology
PROC: 0DJ08ZZ Inspection of Upper Intestinal Tract, Via Natural or Artificial Opening Endoscopic (ICD-10-PCS; CPT 43235; principal; 2025-09-25 13:25)
DX: D50.9 Iron deficiency anemia, unspecified (principal); I85.00 Esophageal varices without bleeding; E11.9 Type 2 diabetes mellitus without complications; K25.9 Gastric ulcer, unspecified as acute or chronic, without hemorrhage or perforation; D69.6 Thrombocytopenia, unspecified; Z79.84 Long term (current) use of oral hypoglycemic drugs; Z87.891 Personal history of nicotine dependence; E78.00 Pure hypercholesterolemia, unspecified; I10 Essential (primary) hypertension; Z86.73 Personal history of transient ischemic attack (TIA), and cerebral infarction without residual deficits; Z85.3 Personal history of malignant neoplasm of breast; E03.9 Hypothyroidism, unspecified; Z79.890 Hormone replacement therapy; Z79.85 Long-term (current) use of injectable non-insulin antidiabetic drugs; D62 Acute posthemorrhagic anemia; K22.89 Other specified disease of esophagus
CPT/HCPCS: 44361; 88305; 88342; J2405

== ENCOUNTER → 2025-11-15 | Outpatient (CLI) | payer MEDICARE, SELFPAY ==
--- NOTE | 2025-11-15 10:17 | US_ITS ---
PROCEDURE: ABD LIMITED W/ ELASTOGRAPHY REASON FOR EXAM: ESOPHAGEAL VARICES COMPARISON: Prior CT scan of the abdomen dated June 06, 2025. TECHNIQUE: Procedure Code: [id number] Modality: US Procedure: ABD LIMITED W/ ELASTOGRAPHY Right upper quadrant abdominal ultrasound. Cristela ElastQ Imaging shear wave elastography for non-invasive assessment of liver tissue stiffness. Cristela EPIQ Elite. FINDINGS: LIVER: Size: Unremarkable Length: 16.2 cm Echotexture: Coarsened Contour: Nodular Lesions: None identified Elastography: EQI Med: 15.6 kPa EQI Med Gunnar: 2.27 m/s IQR/Med: 9.2 %* GALLBLADDER: Solitary gallstone measuring 1.8 cm 1.8 cm 1.8 cm. COMMON BILE DUCT: 4.3 mm. . PANCREAS: Normal Visualized portions of the right kidney are unremarkable. No right upper quadrant ascites. US/ABD Limited w/ Elastography IMPRESSION: SEVERE HEPATIC FIBROSIS / CIRRHOSIS Nodular hepatic contour. Solitary gallstone measuring 1.8 cm 1.8 cm x 1.8 cm. Reference Values: SRU <1.37 m/s (5.7kPa): No to mild fibrosis 1.37 m/s - 2.2 m/s: Moderate to severe fibrosis >2.2 m/s (15kPa): Significant fibrosis / cirrhosis METAVIR Score F2 or higher: 1.34 m/s (5.7kPa) F3 or higher: 1.55 m/s (7.3kPa) F4: 1.80 m/s (10kPa) * If the IQR/Med is >30%, the variance in the measurements is a large and the a ccuracy of the measurement may be in question. Reading Location: [id number]
== END | disposition home or self-care (01) ==
LOC: US 10:15
PROVIDERS: PCP Nurse Practitioner Family; Referring Provider Student in an Organized Health Care Education/Training Program; Visit Provider Student in an Organized Health Care Education/Training Program
DX: I85.00 Esophageal varices without bleeding (principal)
CPT/HCPCS: 76705; 76981